=== PATIENT | male | born 1980 | race Caucasian/White ===

== ENCOUNTER → 2017-03-24 | Outpatient (CLI) | payer OTHER ==
[~2017-03-24] MED LIST: ACHD5005 PO; BSP10T PO; CIPR500T78 PO; CPR500T PO; CYCL10TA9 PO; DOCU-143 PO; GABA300C PO; LORA0.5T PO; METF1000 PO; NAPR220T29 PO; PANT40TA3 PO; PIOG15TA22 PO; TRAM50TA2 PO
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
== END ==
LOC: RAD 15:37
PROVIDERS: ATTEND Internal Medicine
DX: M50.20 Other cervical disc displacement, unspecified cervical region (principal); M89.38 Hypertrophy of bone, other site; M47.812 Spondylosis without myelopathy or radiculopathy, cervical region; R20.0 Anesthesia of skin; M25.511 Pain in right shoulder; Z87.828 Personal history of other (healed) physical injury and trauma
CPT/HCPCS: 72141

== ENCOUNTER 2017-08-09 13:46 | Emergency (ER) | payer SELFPAY ==
[~2017-08-09] VITALS: Ht 172.7 cm; Wt 85.5 kg
[~2017-08-09 13:46] MED LIST changes: -METF1000 PO; +METF10002 PO; -PIOG15TA22 PO; +PIOG15TA67 PO
--- NOTE | 2017-08-09 15:30 | ED General ---
General Chief Complaint: Nasal Problems Stated Complaint: SORE IN NOSE Nursing Triage Note: PT STATES HE HAS AN ABSCESS INSIDE HIS LT NARE. HX OF AN ABSCESS ON HIS LT NIPPLE LAST WEEK, HE GOT IT TO DRAIN BUT NEVER GOT ANY ABX. Nursing Sepsis Screen: No Definite Risk Source of Information: Patient Exam Limitations: No Limitations History of Present Illness Date Seen by Provider: August 09, 2017 Time Seen by Provider: 15:30 Initial Comments 37 yo male patient presents to the ED with c/o Allergies and Home Medications Allergies Coded Allergies: NKANo Known Allergies (Unverified Allergy, Mild, 01/06/09) Home Medications Metformin HCl 1,000 Mg Tablet, 1,000 MG PO BID, (Reported) Pantoprazole Sodium 40 Mg Tablet.dr, 40 MG PO DAILY, (Reported) Pioglitazone HCl 15 Mg Tablet, 15 MG PO DAILY, (Reported) Past Lxlqwod-Hjmoea-Cllwbm Hx Patient Social History Alcohol Use: Rarely Uses Number of Drinks Today: AA Alcohol Beverage of Choice: Beer Recreational Drug Use: No Type Used: Cigarettes Recent Foreign Travel: No Contact w/Someone Who Travel: No Recent Infectious Disease Expo: No Recent Hopitalizations: No Immunizations Up To Date Tetanus Booster (TDap): Less than 5yrs Date of Influenza Vaccine: Mar 11, 2011 Seasonal Allergies Seasonal Allergies: No Past Medical History Surgeries: Yes (URETHERAL DILATION-UNDER LOCAL; EXCISION OF ANAL WARTS) Respiratory: No Cardiac: Yes Hypertension Neurological: No Sexually Transmitted Disease: Yes (GENITAL WARTS) HIV/AIDS: No Gastrointestinal: No Musculoskeletal: Yes Chronic Back Pain Endocrine: Yes Diabetes, Non-Insulin dep Cancer: No Psychosocial: Yes Anxiety Integumentary: Yes Blood Disorders: No Physical Exam Vital Signs Vital Signs - First Documented 08/09/17 15:03 Temp 96.4 Pulse 86 Resp 20 B/P (MAP) 134/107 (116) Pulse Ox 100 O2 Delivery Room Air Capillary Refill : Less Than 3 Seconds Progress/Results/Core Measures Suspected Sepsis Recent Fever Within 48 Hours: No Infection Criteria Present: Suspected New Infection New/Unexplained Altered Menta: No Sepsis Screen: No Definite Risk SIRS Temperature:96.4 Pulse: 86 Respiratory Rate: 20 Laboratory Tests 08/09/17 16:20: White Blood Count 14.8H Blood Pressure 134 /107 Mean: 116 Laboratory Tests 08/09/17 16:20: Creatinine 0.88, Platelet Count 217, Total Bilirubin 0.2 Results/Orders Lab Results Laboratory Tests Test 08/09/17 16:20 Range/Units White Blood Count 14.8 H 4.3-11.0 10^3/uL Red Blood Count 4.96 4.35-5.85 10^6/uL Hemoglobin 15.0 13.3-17.7 G/DL Hematocrit 43 40-54 % Mean Corpuscular Volume 88 80-99 FL Mean Corpuscular Hemoglobin 30 25-34 PG Mean Corpuscular Hemoglobin Concent 35 32-36 G/DL Red Cell Distribution Width 13.4 10.0-14.5 % Platelet Count 217 130-400 10^3/uL Mean Platelet Volume 10.8 H 7.4-10.4 FL Neutrophils (%) (Auto) 65 42-75 % Lymphocytes (%) (Auto) 27 12-44 % Monocytes (%) (Auto) 6 0-12 % Eosinophils (%) (Auto) 2 0-10 % Basophils (%) (Auto) 0 0-10 % Neutrophils # (Auto) 9.7 H 1.8-7.8 X 10^3 Lymphocytes # (Auto) 4.0 1.0-4.0 X 10^3 Monocytes # (Auto) 0.8 0.0-1.0 X 10^3 Eosinophils # (Auto) 0.3 0.0-0.3 10^3/uL Basophils # (Auto) 0.0 0.0-0.1 10^3/uL Neutrophils % (Manual) 53 % Lymphocytes % (Manual) 41 % Monocytes % (Manual) 4 % Eosinophils % (Manual) 1 % Basophils % (Manual) 1 % Band Neutrophils 0 % Blood Morphology Comment NORMAL Sodium Level 135 135-145 MMOL/L Potassium Level 4.4 3.6-5.0 MMOL/L Chloride Level 102 98-107 MMOL/L Carbon Dioxide Level 25 21-32 MMOL/L Anion Gap 8 5-14 MMOL/L Blood Urea Nitrogen 13 7-18 MG/DL Creatinine 0.88 0.60-1.30 MG/DL Estimat Glomerular Filtration Rate > 60 BUN/Creatinine Ratio 15 Glucose Level 273 H 70-105 MG/DL Calcium Level 9.1 8.5-10.1 MG/DL Total Bilirubin 0.2 0.1-1.0 MG/DL Aspartate Amino Transf (AST/SGOT) 9 5-34 U/L Alanine Aminotransferase (ALT/SGPT) 16 0-55 U/L Alkaline Phosphatase 127 40-136 U/L C-Reactive Protein High Sensitivity 0.24 0.00-0.50 MG/DL Total Protein 7.1 6.4-8.2 GM/DL Albumin 4.4 3.2-4.5 GM/DL My Orders Orders - JESSICA NGUYEN Saline Lock/Iv-Start (08/09/17 15:54) Cbc With Automated Diff (08/09/17 15:54) Comprehensive Metabolic Panel (08/09/17 15:54) Hs C Reactive Protein (08/09/17 15:54) Ns Iv 1000 Ml (Sodium Chloride 0.9%) (08/09/17 15:54) Ketorolac Injection (Toradol Injection) (08/09/17 15:54) Manual Differential (08/09/17 16:20) Ct Sinus Complete Wo (08/09/17 15:54) Ceftriaxone Injection (Rocephin Injectio (08/09/17 18:00) Hydrocodone/Apap 5/325 Tablet (Lortab 5 (08/09/17 18:00) Medications Given in ED Current Medications Medications Dose Ordered Sig/Melinda Route Start Time Stop Time Status Last Admin Dose Admin Acetaminophen/ Hydrocodone Bitart 2 tab ONCE ONCE PO 08/09/17 18:00 08/09/17 18:01 DC 08/09/17 18:12 2 TAB Ceftriaxone Sodium 1000 mg/ Sodium Chloride 50 ml @ 200 mls/hr ONCE ONCE IV 08/09/17 18:00 08/09/17 18:14 DC 08/09/17 18:13 200 MLS/HR Sodium Chloride 1,000 ml @ 0 mls/hr Q0M ONCE IV 08/09/17 15:54 08/09/17 15:55 DC 08/09/17 16:24 1,000 MLS/HR Vital Signs/I&O 08/09/17 08/09/17 08/09/17 15:03 16:24 18:12 Temp 96.4 96.4 96.4 Pulse 86 Resp 20 B/P (MAP) 134/107 (116) Pulse Ox 100 O2 Delivery Room Air Capillary Refill : Less Than 3 Seconds Blood Pressure Mean: 116 Diagnostic Imaging Diagonstic Imaging: CT Plain Films/CT/US/NM/MRI: other (sinuses) Comments PROCEDURE: CT sinuses without contrast TECHNIQUE: Multiple contiguous axial images were obtained through the sinuses without the use of intravenous contrast. Coronal and sagittal reformations were then performed. INDICATION: Sore in the left nostril. FINDINGS: The frontal sinus is clear. There is mild mucosal thickening in the ethmoid air cells. The sphenoid is unremarkable. The bilateral maxillary sinuses are clear. No air/fluid levels are seen. The mastoids are well aerated. The right ostiomeatal complex is patent. There is some mild mucosal thickening in the region of the left ostiomeatal complex. The nasal septum is midline. No nasal mass is detected. IMPRESSION: There is minimal paranasal sinus mucosal disease. The study is otherwise unremarkable. Dictated by: Dictated on workstation # [id number] Reviewed: Reviewed by Me (radiology report reviewed by me) Departure Impression Primary Impression: Sinusitis Disposition: HOME, SELF-CARE Condition: Improved Departure-Patient Inst. Decision time for Depature: 18:48 Referrals: NO,LOCAL PHYSICIAN (PCP/Family) Primary Care Physician Patient Instructions: Sinusitis, Adult (DC) Add. Discharge Instructions: All discharge instructions reviewed with patient and/or family. Voiced understanding. Medications as directed. Tylenol extra strength over the counter for pain. Motrin 800 mg by mouth every 8 hours as needed for pain. Afrin nasal spray and saline nasal spray over the counter as directed for congestion. Follow-up with your family practitioner for recheck, call for an appointment time. Return to the emergency department for worsened pain, fever, dizziness, difficulty swallowing, difficulty breathing, or any other concerns. Scripts Naproxen (Naprosyn) 500 Mg Tablet 500 MG PO BID PRN for pain, #30 TAB 0 Refills Prov: JESSICA NGUYEN 08/09/17 Prednisone (Prednisone) 20 Mg Tab 40 MG PO DAILY, #10 TAB 0 Refills Prov: JESSICA NGUYEN 08/09/17 Cephalexin (Cephalexin) 500 Mg Capsule 500 MG PO TID, #30 CAP 0 Refills Prov: JESSICA NGUYEN 08/09/17 Work/School Note: Local Medical Staff Listing, Work Release Form Date Seen in the Emergency Department: August 09, 2017 Return to Work: August 11, 2017 JESSICA NGUYEN August 09, 2017 15:30
[2017-08-09] MEDS ORDERED: KETOROLAC 30 MG/ML VIAL IVP STA (15:54)
[2017-08-09] MEDS ORDERED: NS IV 1000 ML 1,000 ML IV ONE (15:54)
[2017-08-09 16:27] LABS: BASOPHILS % (AUTO) 0 % (0-10); EOSINOPHILS # (AUTO) 0.3 10^3/uL (0.0-0.3); EOSINOPHILS % (AUTO) 2 % (0-10); HEMATOCRIT 43 % (40-54); LYMPHOCYTES % (AUTO) 27 % (12-44); MEAN CORPUSCULAR HEMOGLOBIN 30 PG (25-34); MEAN CORPUSCULAR HGB CONC 35 G/DL (32-36); MEAN CORPUSCULAR VOLUME 88 FL (80-99); MEAN PLATELET VOLUME 10.8 FL (7.4-10.4); MONOCYTES # (AUTO) 0.8 X 10^3 (0.0-1.0); MONOCYTES % (AUTO) 6 % (0-12); NEUTROPHILS # (AUTO) 9.7 X 10^3 (1.8-7.8); NEUTROPHILS % (AUTO) 65 % (42-75); PLATELET COUNT 217 10^3/uL (130-400); RED BLOOD COUNT 4.96 10^6/uL (4.35-5.85); RED CELL DISTRIBUTION WIDTH 13.4 % (10.0-14.5); WHITE BLOOD COUNT 14.8 10^3/uL (4.3-11.0)
--- NOTE | 2017-08-09 16:46 | Diagnostic Imaging Report ---
PROCEDURE: CT sinuses without contrast TECHNIQUE: Multiple contiguous axial images were obtained through the sinuses without the use of intravenous contrast. Coronal and sagittal reformations were then performed. INDICATION: Sore in the left nostril. FINDINGS: The frontal sinus is clear. There is mild mucosal thickening in the ethmoid air cells. The sphenoid is unremarkable. The bilateral maxillary sinuses are clear. No air/fluid levels are seen. The mastoids are well aerated. The right ostiomeatal complex is patent. There is some mild mucosal thickening in the region of the left ostiomeatal complex. The nasal septum is midline. No nasal mass is detected. IMPRESSION: There is minimal paranasal sinus mucosal disease. The study is otherwise unremarkable. Dictated by: Dictated on workstation # [id number]
[2017-08-09 16:55] LABS: ALANINE AMINOTRANSFERASE 16 U/L (0-55); ALBUMIN 4.4 GM/DL (3.2-4.5); ALKALINE PHOSPHATASE 127 U/L (40-136); BILIRUBIN,TOTAL 0.2 MG/DL (0.1-1.0); BUN/CREATININE RATIO 15; CALCIUM 9.1 MG/DL (8.5-10.1); CARBON DIOXIDE 25 MMOL/L (21-32); CHLORIDE 102 MMOL/L (98-107); CREATININE SERUM 0.88 MG/DL (0.60-1.30); GFR ESTIMATED > 60; GLUCOSE 273 MG/DL (70-105); POTASSIUM 4.4 MMOL/L (3.6-5.0); SODIUM 135 MMOL/L (135-145); TOTAL PROTEIN 7.1 GM/DL (6.4-8.2)
[2017-08-09 16:58] LABS: BAND NEUTROPHILS 0 %; BASOPHILS % (MANUAL) 1 %; EOSINOPHILS % (MANUAL) 1 %; LYMPHOCYTES % (MANUAL) 41 %; MONOCYTES % (MANUAL) 4 %; NEUTROPHILS % (MANUAL) 53 %; RBC MORPH NORMAL
[2017-08-09] MEDS ORDERED: cefTRIAXone INJECTION 1,000 MG in NS (IVPB) 50 ML IV ONE (18:00)
[2017-08-09] MEDS ORDERED: HYDROcodone/APAP 5 MG/325 MG (LORTAB) TAB PO ONE (18:00)
[2017-08-09] MEDS ORDERED: NAPR-1071 PO (18:50)
[2017-08-09] MEDS ORDERED: PRD20T PO (18:50)
[2017-08-09] MEDS ORDERED: CEPH500C PO (18:50)
[2017-08-09 19:01] VITALS: BP 127/94
== END 2017-08-09 19:01 | disposition home or self-care (01) ==
LOC: EDUNIT# 13:46 → ER 13:48
DX: J32.9 Chronic sinusitis, unspecified (principal); I10 Essential (primary) hypertension; E11.9 Type 2 diabetes mellitus without complications; F41.9 Anxiety disorder, unspecified; Z79.84 Long term (current) use of oral hypoglycemic drugs
CPT/HCPCS: 36415; 70486; 80053; 85007; 85027; 86141; 96361; 96374; 96375

== ENCOUNTER 2017-09-29 13:17 | Inpatient (IN) | payer SELFPAY ==
[~2017-09-29] VITALS: Ht 172.7 cm; Wt 82.6 kg
[~2017-09-29 13:17] MED LIST changes: +CEPH500C PO; +NAPR-1071 PO; +PRD20T PO
[2017-09-29] MEDS ORDERED: NS IV 1000 ML 1,000 ML ONE (13:39)
[2017-09-29] MEDS ORDERED: NS IV 1000 ML 1,000 ML IV ONE ×2 (13:40→14:41)
[2017-09-29 14:00] LABS: BASOPHILS % (AUTO) 1 % (0-10); EOSINOPHILS # (AUTO) 0.2 10^3/uL (0.0-0.3); EOSINOPHILS % (AUTO) 2 % (0-10); HEMATOCRIT 41 % (40-54); HEMOGLOBIN 15.2 G/DL (13.3-17.7); LYMPHOCYTES # (AUTO) 2.5 X 10^3 (1.0-4.0); LYMPHOCYTES % (AUTO) 31 % (12-44); MEAN CORPUSCULAR HEMOGLOBIN 31 PG (25-34); MEAN CORPUSCULAR HGB CONC 37 G/DL (32-36); MEAN CORPUSCULAR VOLUME 83 FL (80-99); MEAN PLATELET VOLUME 12.3 FL (7.4-10.4); MONOCYTES # (AUTO) 0.5 X 10^3 (0.0-1.0); MONOCYTES % (AUTO) 6 % (0-12); NEUTROPHILS # (AUTO) 4.9 X 10^3 (1.8-7.8); NEUTROPHILS % (AUTO) 61 % (42-75); PLATELET COUNT 185 10^3/uL (130-400); RED BLOOD COUNT 4.99 10^6/uL (4.35-5.85); RED CELL DISTRIBUTION WIDTH 12.7 % (10.0-14.5); WHITE BLOOD COUNT 8.1 10^3/uL (4.3-11.0)
[2017-09-29 14:08] LABS: BILIRUBIN,URINE NEGATIVE (NEGATIVE); CLARITY,URINE CLEAR; COLOR,URINE YELLOW; GLUCOSE, URINE (UA) 4+ (NEGATIVE); KETONES,URINE NEGATIVE (NEGATIVE); LEUKOCYTE ESTERASE ,URINE NEGATIVE (NEGATIVE); NITRITE,URINE NEGATIVE (NEGATIVE); PH,URINE 7 (5-9); PROTEIN,URINE NEGATIVE (NEGATIVE); UROBILINOGEN,URINE NORMAL (NORMAL)
[2017-09-29 14:17] LABS: BACTERIA,URINE TRACE /HPF
[2017-09-29 14:23] LABS: ALBUMIN 4.1 GM/DL (3.2-4.5); BILIRUBIN,TOTAL 0.4 MG/DL (0.1-1.0); CALCIUM 9.4 MG/DL (8.5-10.1); CREATININE SERUM 1.52 MG/DL (0.60-1.30); POTASSIUM 5.6 MMOL/L (3.6-5.0); TOTAL PROTEIN 6.5 GM/DL (6.4-8.2)
--- NOTE | 2017-09-29 14:37 | ED General ---
General Chief Complaint: Glucose Problems Stated Complaint: HIGH BLOOD SUGAR Nursing Triage Note: PT REPORTS "HIGH" GLUCOSE READING X 1 MONTH. PT REPORTS BLURRED VISION, WEIGHTLOSS, FATIGUE STARTING THIS PAST COUPLE WEEKS. PT STATES HE STOPPED TAKING HIS ACTOS A COUPLE MONTHS AGO. PT REPORTS STILL HAS INTERMITTENTLY BEEN TAKING METFORMIN. Nursing Sepsis Screen: No Definite Risk Source of Information: Patient Exam Limitations: No Limitations History of Present Illness Date Seen by Provider: Sep 29, 2017 Time Seen by Provider: 13:40 Initial Comments PT ARRIVES VIA POV FROM HOME C/O ELEVATED BLOOD SUGAR STATES HIS HOME GLUCOMETER HAS READ "HIGH" EVERY TIME HE HAS CHECKED IT OVER THE LAST MONTH PT STATES HE HAS NOT TAKEN ANY OF HIS DIABETIC MEDICATIONS FOR 3 MONTHS--WAS ON METFORMIN AND ACTOS. WAS DIAGNOSED A COUPLE OF YEARS AGO WITH DIABETES PT STATES HE QUIT GOING TO [facility] 3 MONTHS AGO BECAUSE THEY KEPT CHANGING HIS MEDICATIONS AND HE COULDN'T AFFORD TO KEEP GOING BACK ALL THE TIME AND COULDN'T AFFORD ALL THE COPAYS ON HIS MEDICATIONS HAS NOT ATTEMPTED TO ESTABLISH CARE OR FOLLOW UP WITH ANYONE ELSE PT C/O ONGOING WEAKNESS, EXTREME FATIGUE--"NO ENERGY", BLURRY VISION, POLYURIA AND POLYDIPSIA--FOR THE LAST 3 MONTHS AND PROGRESSIVELY GETTING WORSE, ESPECIALLY THE LAST COUPLE OF WEEKS PT HAS LOST APPROXIMATELY 15 LBS IN THE LAST 3 MONTHS Allergies and Home Medications Allergies Coded Allergies: NKANo Known Allergies (Unverified Allergy, Mild, 01/06/09) Home Medications Acetaminophen 500 Mg Tablet, 1,000 MG PO Q4H PRN for PAIN-MILD, (Reported) Gabapentin 600 Mg Tablet, 600 MG PO TID, (Reported) LAST FILLED #90 18 Ibuprofen 200 Mg Tablet, 400-800 MG PO TID PRN for PAIN-MILD, (Reported) Metformin HCl 1,000 Mg Tablet, 1,000 MG PO BID, (Reported) LAST FILLED #60 18 Pantoprazole Sodium 40 Mg Tablet.dr, 40 MG PO DAILY, (Reported) LAST FILLED #30 18 Pioglitazone HCl 15 Mg Tablet, 15 MG PO DAILY, (Reported) LAST FILLED #30 18 Patient Home Medication List Home Medication List Reviewed: Yes Review of Systems Constitutional: no symptoms reported, malaise, weakness, weight loss EENTM: blurred vision, other (DRY MOUTH) Respiratory: no symptoms reported Cardiovascular: no symptoms reported Gastrointestinal: No abdominal pain; loss of appetite, nausea; No vomiting Genitourinary: see HPI, frequency Musculoskeletal: no symptoms reported Skin: no symptoms reported Psychiatric/Neurological: No Symptoms Reported Hematologic/Lymphatic: No Symptoms Reported Immunological/Allergic: no symptoms reported Past Onzjfjp-Sdwcau-Vowpuc Hx Patient Social History Alcohol Use: Past History (USED TO DRINK " ALL DAY EVERY DAY" BUT NO RECENT ALCOHOL USE, PER PT ON 09/29/17) Number of Drinks Today: AA Alcohol Beverage of Choice: Beer Recreational Drug Use: Yes (MARIJUANA, THC, DENIES DRUG USE) Drug of Choice: THC, METH BY HISTORY Smoking Status: Current Everyday Smoker (1 PPD) Type Used: Cigarettes Recent Foreign Travel: No Contact w/Someone Who Travel: No Recent Infectious Disease Expo: No Recent Hopitalizations: No Physical Abuse: No Sexual Abuse: No Mistreated: No Fear: No Immunizations Up To Date Tetanus Booster (TDap): Less than 5yrs Date of Influenza Vaccine: Mar 11, 2011 Seasonal Allergies Seasonal Allergies: No Past Medical History Surgeries: Yes (URETHERAL DILATION-UNDER LOCAL; EXCISION OF ANAL WARTS) Respiratory: No Cardiac: Yes Hypertension Neurological: No Sexually Transmitted Disease: Yes (GENITAL WARTS) HIV/AIDS: No Gastrointestinal: No Musculoskeletal: Yes Chronic Back Pain Endocrine: Yes Diabetes, Non-Insulin dep HEENT: No Cancer: No Psychosocial: Yes Anxiety Nursing Suicide Risk Score: 0 Integumentary: Yes (GENITAL WARTS) Blood Disorders: No Family Medical History No Pertinent Family Hx Physical Exam Vital Signs Vital Signs - First Documented 09/29/17 09/29/17 13:48 16:30 Temp 97.2 Pulse 81 Resp 20 B/P (MAP) 126/76 (93) Pulse Ox 99 O2 Delivery Room Air Capillary Refill : Less Than 3 Seconds Height, Weight, BMI Height: 5'8.00" Weight: 165lbs. 9.0oz. 74.377672bm; 28.7 BMI Method:Stated General Appearance: No Apparent Distress, WD/WN HEENT: PERRL/EOMI, Other (DRY ORAL MUCOSA) Neck: Normal Inspection Respiratory: Normal Breath Sounds, No Accessory Muscle Use, No Respiratory Distress Cardiovascular: Regular Rate, Rhythm, No Edema, No Murmur Gastrointestinal: Normal Bowel Sounds, No Organomegaly, No Pulsatile Mass, Non Tender, Soft Back: Normal Inspection Extremity: Normal Inspection Neurologic/Psychiatric: Alert, Oriented x3, No Motor/Sensory Deficits, literature teacher II- XII Norm as Tested, Other (FLAT AFFECT) Skin: Normal Color, Warm/Dry Progress/Results/Core Measures Suspected Sepsis Recent Fever Within 48 Hours: No Infection Criteria Present: None New/Unexplained Altered Menta: No Sepsis Screen: No Definite Risk SIRS Temperature:97.2 Pulse: 81 Respiratory Rate: 20 Laboratory Tests 09/29/17 13:44: White Blood Count 8.1 Blood Pressure 126 /76 Mean: 93 Laboratory Tests 09/29/17 13:44: Creatinine 1.52H, Platelet Count 185, Total Bilirubin 0.4 Results/Orders Lab Results Laboratory Tests Test 09/29/17 13:32 09/29/17 13:44 09/29/17 14:00 09/29/17 16:05 Range/Units Glucometer > 600 *H 384 H 70-110 MG/DL White Blood Count 8.1 4.3-11.0 10^3/uL Red Blood Count 4.99 4.35-5.85 10^6/uL Hemoglobin 15.2 13.3-17.7 G/DL Hematocrit 41 40-54 % Mean Corpuscular Volume 83 80-99 FL Mean Corpuscular Hemoglobin 31 25-34 PG Mean Corpuscular Hemoglobin Concent 37 H 32-36 G/DL Red Cell Distribution Width 12.7 10.0-14.5 % Platelet Count 185 130-400 10^3/uL Mean Platelet Volume 12.3 H 7.4-10.4 FL Neutrophils (%) (Auto) 61 42-75 % Lymphocytes (%) (Auto) 31 12-44 % Monocytes (%) (Auto) 6 0-12 % Eosinophils (%) (Auto) 2 0-10 % Basophils (%) (Auto) 1 0-10 % Neutrophils # (Auto) 4.9 1.8-7.8 X 10^3 Lymphocytes # (Auto) 2.5 1.0-4.0 X 10^3 Monocytes # (Auto) 0.5 0.0-1.0 X 10^3 Eosinophils # (Auto) 0.2 0.0-0.3 10^3/uL Basophils # (Auto) 0.0 0.0-0.1 10^3/uL Sodium Level 125 *L 135-145 MMOL/L Potassium Level 5.6 H 3.6-5.0 MMOL/L Chloride Level 93 L 98-107 MMOL/L Carbon Dioxide Level 21 21-32 MMOL/L Anion Gap 11 5-14 MMOL/L Blood Urea Nitrogen 17 7-18 MG/DL Creatinine 1.52 H 0.60-1.30 MG/DL Estimat Glomerular Filtration Rate 51 BUN/Creatinine Ratio 11 Glucose Level 867 *H 70-105 MG/DL Calcium Level 9.4 8.5-10.1 MG/DL Magnesium Level 2.0 1.8-2.4 MG/DL Total Bilirubin 0.4 0.1-1.0 MG/DL Aspartate Amino Transf (AST/SGOT) 17 5-34 U/L Alanine Aminotransferase (ALT/SGPT) 21 0-55 U/L Alkaline Phosphatase 135 40-136 U/L Total Protein 6.5 6.4-8.2 GM/DL Albumin 4.1 3.2-4.5 GM/DL Amylase Level 31 25-125 U/L Lipase 34 8-78 U/L Serum Alcohol < 10 <10 MG/DL Urine Color YELLOW Urine Clarity CLEAR Urine pH 7 5-9 Urine Specific [place] 1.005 L 1.016-1.022 Urine Protein NEGATIVE NEGATIVE Urine Glucose (UA) 4+ H NEGATIVE Urine Ketones NEGATIVE NEGATIVE Urine Nitrite NEGATIVE NEGATIVE Urine Bilirubin NEGATIVE NEGATIVE Urine Urobilinogen NORMAL NORMAL MG/DL Urine Leukocyte Esterase NEGATIVE NEGATIVE Urine RBC (Auto) NEGATIVE NEGATIVE Urine RBC NONE /HPF Urine WBC NONE /HPF Urine Squamous Epithelial Cells NONE /HPF Urine Crystals NONE /LPF Urine Bacteria TRACE /HPF Urine Casts NONE /LPF Urine Mucus NEGATIVE /LPF Urine Culture Indicated NO Urine Opiates Screen NEGATIVE NEGATIVE Urine Oxycodone Screen NEGATIVE NEGATIVE Urine Methadone Screen NEGATIVE NEGATIVE Urine Propoxyphene Screen NEGATIVE NEGATIVE Urine Barbiturates Screen NEGATIVE NEGATIVE Ur Tricyclic Antidepressants Screen NEGATIVE NEGATIVE Urine Phencyclidine Screen NEGATIVE NEGATIVE Urine Amphetamines Screen NEGATIVE NEGATIVE Urine Methamphetamines Screen NEGATIVE NEGATIVE Urine Benzodiazepines Screen NEGATIVE NEGATIVE Urine Cocaine Screen NEGATIVE NEGATIVE Urine Cannabinoids Screen NEGATIVE NEGATIVE My Orders Orders - CHIDI DUDLEY DO Accucheck Stat ONCE (09/29/17 13:40) Saline Lock/Iv-Start (09/29/17 13:40) Monitor-Rhythm Ecg Trace Only (09/29/17 13:40) Amylase (09/29/17 13:40) Cbc With Automated Diff (09/29/17 13:40) Comprehensive Metabolic Panel (09/29/17 13:40) Lipase (09/29/17 13:40) Magnesium (09/29/17 13:40) Ua Culture If Indicated (09/29/17 13:40) Saline Lock/Iv-Start (09/29/17 13:40) Ns Iv 1000 Ml (Sodium Chloride 0.9%) (09/29/17 13:40) Ns Iv 1000 Ml (Sodium Chloride 0.9%) (09/29/17 13:39) Saline Lock/Iv-Start (09/29/17 14:41) Ns Iv 1000 Ml (Sodium Chloride 0.9%) (09/29/17 14:41) Insulin (Regular) Human (Humulin R (Per (09/29/17 14:45) Alcohol (09/29/17 14:50) Drug Screen Stat (Urine) (09/29/17 14:50) Accucheck Stat ONCE (09/29/17 15:31) Medications Given in ED Current Medications Medications Dose Ordered Sig/Melinda Route Start Time Stop Time Status Last Admin Dose Admin Insulin Human Regular 20 unit ONCE ONCE IV 09/29/17 14:45 09/29/17 14:46 DC 09/29/17 15:20 20 UNIT Sodium Chloride 1,000 ml @ 0 mls/hr Q0M ONCE IV 09/29/17 13:40 09/29/17 13:43 DC 09/29/17 14:00 0 MLS/HR Sodium Chloride 1,000 ml @ 0 mls/hr Q0M ONCE IV 09/29/17 14:41 09/29/17 14:42 DC 09/29/17 15:21 0 MLS/HR Vital Signs/I&O 09/29/17 09/29/17 09/29/17 09/29/17 13:48 16:24 16:30 16:45 Temp 97.2 98.2 Pulse 81 87 70 Resp 20 20 20 B/P (MAP) 126/76 (93) 123/71 124/80 (95) Pulse Ox 99 98 98 96 O2 Delivery Room Air Room Air 09/29/17 09/29/17 09/29/17 18:56 19:00 20:41 Temp 98.0 98.2 Pulse 68 71 66 Resp 20 20 B/P (MAP) 121/88 (99) 114/78 (90) Pulse Ox 98 99 O2 Delivery Room Air Room Air Capillary Refill : Less Than 3 Seconds Blood Pressure Mean: 93 Point of Care Testing Blood Glucose Action Taken: FL- DR DUDLEY INFORMED Progress Note : Progress Note UNEVENTFUL ER STAY BLOOD GLUCOSE DOWN TO 384 AT TIME OF ADMIT Departure Communication (Admissions) 1440--SPOKE WITH DR. HANDLEY, ACCEPTS PT FOR ADMIT Impression Primary Impression: Uncontrolled diabetes mellitus Additional Impressions: Electrolyte imbalance Hyponatremia Renal insufficiency Noncompliance Disposition: ADMITTED INPATIENT Condition: Improved Admissions Decision to Admit Reason: Admit from ER (General) Decision to Admit/Date: Sep 29, 2017 Time/Decision to Admit Time: 14:40 Departure-Patient Inst. Referrals: NO,LOCAL PHYSICIAN (PCP/Family) Primary Care Physician CHIDI DUDLEY DO Sep 29, 2017 14:37
[2017-09-29] MEDS ORDERED: inSUlin (REGULAR) HUMAN 1 UNIT/0.01 ML (CHARGE PER UNIT) IV ONE (14:45)
[2017-09-29 16:05] LABS: AMPHETAMINE SCREEN, URINE NEGATIVE (NEGATIVE); BARBITURATE SCREEN URINE NEGATIVE (NEGATIVE); BENZODIAZEPINES SCREEN URINE NEGATIVE (NEGATIVE); CANNABINOID SCREEN, URINE NEGATIVE (NEGATIVE); COCAINE SCREEN URINE NEGATIVE (NEGATIVE); METHADONE STAT NEGATIVE (NEGATIVE); METHAMPHETAMINE SCREEN URINE S NEGATIVE (NEGATIVE); OPIATE SCREEN URINE NEGATIVE (NEGATIVE); OXYCODONE STAT NEGATIVE (NEGATIVE); PROPOXYPHENE STAT NEGATIVE (NEGATIVE); TRICYCLIC ANTIDEPRESSANTS SCRE NEGATIVE (NEGATIVE)
[2017-09-29 16:30] VITALS: BP 124/80
[2017-09-29] MEDS ORDERED: GABA600T2 PO (16:43)
[2017-09-29] MEDS ORDERED: ACET-2267 PO (16:43)
[2017-09-29] MEDS ORDERED: IBUP-30 PO (16:43)
[2017-09-29] MEDS ORDERED: ONDANSETRON 4 MG/2 ML (SDV) Z0FRAN IVP PRN (16:45)
[2017-09-29] MEDS: NS IV 1000 ML 1,000 ML IV SCH ×2 (17:19→20:18)
[2017-09-29 18:56] VITALS: BP 121/88
[2017-09-29] MEDS: NICOTINE 21 MG (NICODERM) PATCH TD SCH (20:18)
[2017-09-29 20:41] VITALS: BP 114/78
[2017-09-29] MEDS: inSUlin ASPART (NovoLOG) 1 UNIT/0.01 ML (CHARGE PER UNIT) SC SCH (22:23)
[2017-09-29 22:35] VITALS: BP 117/79
[2017-09-30 00:31] VITALS: BP 124/83
[2017-09-30] MEDS: NS IV 1000 ML 1,000 ML IV SCH ×2 (01:37→06:22)
[2017-09-30 02:00] VITALS: BP 119/75
[2017-09-30 04:32] VITALS: BP 110/73
[2017-09-30 06:00] VITALS: BP 104/72
[2017-09-30] MEDS: inSUlin ASPART (NovoLOG) 1 UNIT/0.01 ML (CHARGE PER UNIT) SC SCH (06:28)
[2017-09-30] MEDS ORDERED: PIOGLITAZONE 30MG (ACTOS) TAB PO SCH (07:00)
[2017-09-30] MEDS ORDERED: metFORMIN 500 MG (GLUCOPHAGE) TAB PO SCH (07:00)
[2017-09-30 08:00] VITALS: BP 109/58
[2017-09-30] MEDS: NICOTINE 21 MG (NICODERM) PATCH TD SCH (08:08)
[2017-09-30 08:13] LABS: BASOPHILS % (AUTO) 0 % (0-10); EOSINOPHILS # (AUTO) 0.2 10^3/uL (0.0-0.3); EOSINOPHILS % (AUTO) 2 % (0-10); HEMATOCRIT 40 % (40-54); HEMOGLOBIN 14.3 G/DL (13.3-17.7); LYMPHOCYTES # (AUTO) 4.4 X 10^3 (1.0-4.0); LYMPHOCYTES % (AUTO) 49 % (12-44); MEAN CORPUSCULAR HEMOGLOBIN 30 PG (25-34); MEAN CORPUSCULAR HGB CONC 36 G/DL (32-36); MEAN CORPUSCULAR VOLUME 85 FL (80-99); MEAN PLATELET VOLUME 12.3 FL (7.4-10.4); MONOCYTES # (AUTO) 0.5 X 10^3 (0.0-1.0); MONOCYTES % (AUTO) 6 % (0-12); NEUTROPHILS # (AUTO) 3.7 X 10^3 (1.8-7.8); NEUTROPHILS % (AUTO) 42 % (42-75); PLATELET COUNT 189 10^3/uL (130-400); RED BLOOD COUNT 4.72 10^6/uL (4.35-5.85); RED CELL DISTRIBUTION WIDTH 12.9 % (10.0-14.5); WHITE BLOOD COUNT 8.9 10^3/uL (4.3-11.0)
[2017-09-30 08:39] LABS: ALANINE AMINOTRANSFERASE 17 U/L (0-55); ALBUMIN 3.6 GM/DL (3.2-4.5); ALKALINE PHOSPHATASE 102 U/L (40-136); BILIRUBIN,TOTAL 0.5 MG/DL (0.1-1.0); BUN/CREATININE RATIO 18; CALCIUM 8.3 MG/DL (8.5-10.1); CARBON DIOXIDE 22 MMOL/L (21-32); CHLORIDE 108 MMOL/L (98-107); CREATININE SERUM 0.83 MG/DL (0.60-1.30); GFR ESTIMATED > 60; GLUCOSE 213 MG/DL (70-105); POTASSIUM 3.9 MMOL/L (3.6-5.0); SODIUM 137 MMOL/L (135-145); TOTAL PROTEIN 5.7 GM/DL (6.4-8.2)
[2017-09-30] MEDS ORDERED: GABAPENTIN 600 MG (NEURONTIN) TAB PO SCH (09:00)
[2017-09-30] MEDS ORDERED: NON-FORMULARY MEDICATION 1 EA EA (Metformin HCl 1,000 MG) PO SCH (09:00)
[2017-09-30] MEDS ORDERED: PANTOPRAZOLE 40 MG (PROTONIX) TAB PO SCH (09:00)
[2017-09-30] MEDS ORDERED: NON-FORMULARY MEDICATION 1 EA EA (Pioglitazone HCl 15 MG) PO SCH (09:00)
--- NOTE | 2017-09-30 15:32 | Discharge Summary ---
Diagnosis/Chief Complaint Date of Admission Sep 29, 2017 at 15:10 Date of Discharge Sep 30, 2017 at 09:15 Admission Diagnosis Admission Diagnosis Hyperglycemia Discharge Diagnosis Hyperglycemia- patient left against medical advice before being seen inpatient. Discharge Summary-Simple/Stand Discharge Physical Examination Allergies: Coded Allergies: NKANo Known Allergies (Unverified Allergy, Mild, 01/06/09) Vitals & I&Os Vital Sign - Last 12Hours Date Time Temp Pulse Resp B/P (MAP) Pulse Ox O2 Delivery O2 Flow Rate FiO2 09/30/17 08:00 96.2 71 20 109/58 (75) 100 Room Air Intake and Output 09/30/17 00:00 Intake Total 2360 ml Balance 2360 ml Hospital Course See final discharge diagnosis. Discharge Instructions to patient/family Please see electronic discharge instructions given to patient. Discharge Medications Reviewed and agree with Discharge Medication list on patient's Discharge Instruction sheet Clinical Quality Measures DVT/VTE Risk/Contraindication: Risk Factor Score Per Nursin RFS Level Per Nursing on Admit: 1=Low/No VTE PPX JUSTEN HANDLEY MD Sep 30, 2017 15:32
== END 2017-09-30 09:15 | disposition left against medical advice (07) | DRG 638 ==
LOC: EDUNIT# 13:17 → ER 13:18 → 4TH 15:10
PROVIDERS: ADMIT Family Medicine; ATTEND Family Medicine
DX: E11.65 Type 2 diabetes mellitus with hyperglycemia (principal); E87.1 Hypo-osmolality and hyponatremia; N28.9 Disorder of kidney and ureter, unspecified; F17.210 Nicotine dependence, cigarettes, uncomplicated; Z91.120 Patient's intentional underdosing of medication regimen due to financial hardship; Z79.84 Long term (current) use of oral hypoglycemic drugs
CPT/HCPCS: 36415; 80053; 80306; 80320; 81000; 82150; 82962; 83690; 83735; 85025; 93041; 96361; 96374

== ENCOUNTER 2017-10-18 09:04 | Emergency (ER) | payer SELFPAY ==
[~2017-10-18] VITALS: Ht 172.7 cm; Wt 82.6 kg
[~2017-10-18 09:04] MED LIST changes: +ACET-2267 PO; +GABA600T2 PO; +IBUP-30 PO
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
--- OUTSIDE RECORDS SUMMARY | 2017-10-18 09:12 | XMS REPORT ---
Author Author MIRELLA MARIA Organization [facility] Address [address] [place] [address] Care Team Providers Care Fruit Thinner Name Role Phone MIRELLA MARIA Unavailable PROBLEMS Type Condition ICD9-CM Code FED87-NB Code Onset Dates Condition Status SNOMED Code Problem Mood disorder F39 Active 58597285 Problem Shoulder pain, right M25.511 Active 91549030 Problem Acquired hypothyroidism E03.9 Active 658338810 Problem Low back pain M54.5 Active 105073653 Problem Cervical radiculopathy M54.12 Active 23471650 Problem History of urethral stricture Z87.448 Active 448009940 Problem Diabetes type 2, uncontrolled E11.65 Active 963335567 Problem Hypertension, benign I10 Active 54048256 Problem Controlled type 2 diabetes mellitus without complication, without long -term current use of insulin E11.9 Active 523431214 Problem Diabetes type 2, controlled E11.9 Active 77664406 ALLERGIES No Information ENCOUNTERS Encounter Location Date Diagnosis [place] [id number] [place] [address] 92154- 3816 Oct, [facility] [id number] [place] [address] 25269- 6655 Sep, Diabetes type 2, uncontrolled E11.65 [facility] [id number] [place] [address] 08985- 5425 Jun, Controlled type 2 diabetes mellitus without complication, without long-term current use of insulin E11.9 [facility] [id number] [place] [address] 72624- 5862 May, [facility] [id number] [place] [address] 53750- 6123 May, Radiculopathy of cervical region M54.12 [facility] [id number] [place] [address] 29455- 3228 May, Controlled type 2 diabetes mellitus without complication, without long-term current use of insulin E11.9 [facility] [address], [place] [address] May, [facility] [address] [address] 1064 May, Controlled type 2 diabetes mellitus without complication, without long-term current use of insulin E11.9 [facility] [address] [address] 9087 May, Controlled type 2 diabetes mellitus without complication, without long-term current use of insulin E11.9 [facility] [address] [address] 8640 May, Controlled type 2 diabetes mellitus without complication, without long-term current use of insulin E11.9 [place] [address] [address]- 5272 Apr, [facility] [address] [address]- 4262 Apr, Controlled type 2 diabetes mellitus without complication, without long-term current use of insulin E11.9 [facility] [address] [address]- 9851 Apr, [facility] [address] [address]- 4188 Apr, Controlled type 2 diabetes mellitus without complication, without long-term current use of insulin E11.9 [facility] [address], [place] [address]- 5346 Mar, [facility] [address] [address]- 3057 Mar, Radiculopathy of cervical region M54.12 [facility] [address] [address] 3649 Mar, Controlled type 2 diabetes mellitus without complication, without long-term current use of insulin E11.9 [facility] [id number] [place] [address] 09036- 9627 Feb, Cervical radiculopathy M54.12 ; Acute cystitis without hematuria N30.00 and History of urethral stricture Z87.448 [place] [id number] [place] [address] 92863- 8412 Feb, Controlled type 2 diabetes mellitus without complication, without long-term current use of insulin E11.9 [place] [address] 73524- 4802 05 Feb, 2017 [place] [address] 76682- 5999 Jan, Diabetes type 2, uncontrolled E11.65 [place] [address] 88927- 0597 Jan, [place] [address] 57434- 3340 Jan, Controlled type 2 diabetes mellitus without complication, without long-term current use of insulin E11.9 ; Chest wall pain R07.89 and Thoracic spine pain M54.6 [place] [address] [id number] [place] [address] 39205- 1517 Dec, [facility] [id number] [place] [address] 13696- 3104 Dec, [place] [address] 26527- 2935 Nov, [place] [address] [id number] [place] [address] 43954- 7941 Nov, [facility] [id number] [place] [address] 31398 -4200 13 Nov, 2016 Trichomonas exposure Z20.2 [place] [id number] [place] [address] 60887- 5833 Oct, [facility] [address] [id number] [place] [address]- 8291 Oct, [facility] [place] [facility] [address] [id number] [place] [address]- 9827 Oct, [facility] [place] [facility] [address] [id number] [place] [address]- 3786 Oct, [facility] [place] [facility] [address] [id number] [place] [address]- 7135 Sep, [facility] [place] [facility] [address] [id number] [place] [address]- 8352 Sep, [facility] [place] [facility] [address] [id number] [place] [address]- 2786 Aug, [facility] [place] [facility] [address] [id number] [place] [address]- 4662 Aug, [facility] [place] [facility] [address] [id number] [place] [address]- 4578 Aug, [facility] [address] [id number] [place] [address]- 0478 Aug, [facility] [address] [id number] [place] [address]- 4526 July, Diabetes type 2, controlled E11.9 [facility] [address] [id number] [place] [address]- 7115 July, [facility] [place] [facility] [address] [id number] [place] [address]- 3468 July, [facility] [place] [facility] [address] [id number] [place] [address]- 8046 July, [facility] [place] [facility] [address] [id number] [place] [address]- 8075 July, [facility] [place] [facility] [address] [id number] [place] [address]- 0970 Jun, [facility] [place] [facility] [address], [place] [address]- 7651 Jun, [facility] [address], [place] [address]- 4307 May, [facility] [address], [place] [address]- 7296 May, [facility] [address], [place] [address]- 1546 May, [facility] [address], [place] [address]- 6183 May, Controlled type 2 diabetes mellitus without complication, without long-term current use of insulin E11.9 [facility] [address], [place] [address]- 1386 Apr, [facility] [address], [place] [address]- 5226 Apr, [facility] [address], [place] [address]- 5500 Mar, [facility] [address], [place] [address]- 9698 Mar, [facility] [address] 8866 Feb, [facility] [address], [place] [address]- 1516 Feb, [facility] [id number] [address]- 1228 Jan, [facility] [place] [facility] [id number] [place] [address]- 6281 Jan, [facility] [address], [place] [address]- 1922 Jan, [facility] [id number] [place] [address]- 7176 Dec, [facility] [address], [place] [address]- 9012 Dec, [facility] [address] [place] [address] 91219- 9737 Dec, [facility] [id number] [place] [address] 67162- 0635 29 Nov, 2015 Diabetes type 2, uncontrolled E11.65 [facility] [id number] [place] [address] 31148- 7514 14 Nov, 2015 [facility] [id number] [place] [address] 33486- 1849 Nov, [facility] [id number] [place] [address] 61738- 6261 Oct, [facility] [id number] [place] [address] 68441- 1968 Oct, [facility] [id number] [place] [address] 22922- 1251 Sep, Controlled type 2 diabetes mellitus without complication, without long-term current use of insulin E11.9 [facility] [address] [place] [address] 43161- 1063 Sep, [facility] [address] [place] [address] 65321- 6901 Sep, [facility] [address], [place] [address]- 5261 Sep, [facility] [address], [place] [address]- 3983 Sep, [facility] [address] [place] [address] 66170- 5752 Aug, Diabetes type 2, controlled E11.9 ; Anxiety F41.9 ; Carpal tunnel syndrome, left upper limb G56.02 and Carpal tunnel syndrome, right upper limb G56.01 [facility] [address], [place] [address]- 0668 Aug, Urethritis N34.2 [facility] [address], [place] [address]- 0321 Aug, [facility] [id number] [place] [address] 85366- 4627 July, Genital warts A63.0 [facility] [id number] [place] [address] 68147- 9836 July, [facility] [id number] [place] [address] 87221- 4505 July, Genital warts A63.0 [facility] [id number] [place] [address] 75295- 6709 July, Anxiety F41.9 [facility] [id number] [place] [address] 40512- 2007 Jun, Genital warts A63.0 [facility] [address] [place] [address] 07498- 1840 Jun, Anxiety F41.9 [facility] [id number] [place] [address] 04287- 1851 May, Genital warts A63.0 and Diabetes type 2, uncontrolled E11.65 [facility] [address] [place] [address] 35998- 6551 May, [facility] [address] [place] [address] 50967- 2358 May, [facility] [address] [place] [address] 28431- 5459 Apr, [facility] [id number] [place] [address] 01422- 7291 Apr, [facility] [address], [place] [address]- 2861 Apr, Diabetes type 2, controlled E11.9 [facility] [id number] [place] [address] 71968- 6399 Apr, Genital warts A63.0 [facility] [address] [place] [address] 57143- 6984 Apr, [facility] [id number] [place] [address] 14305- 7067 Apr, Diabetes type 2, uncontrolled E11.65 and Genital warts A63.0 [facility] [id number] [place] [address] 26714- 8915 Apr, [facility] [id number] [place] [address] 46916- 2225 Mar, [facility] [id number] [place] [address] 68956- 8948 Mar, [facility] [id number] [place] [address] 88898- 5821 Mar, Family history of diabetes mellitus V18.0 and Weight loss R63.4 [facility] [id number] [place] [address] 84414- 6743 Mar, Genital warts A63.0 and Family history of diabetes mellitus V18.0 [facility] [address] [place] [address] 94471- 0821 Feb, [facility] [address] [place] [address] 52874- 6628 Jan, [facility] [id number] [place] [address] 95054- 3346 Jan, Perianal venereal warts A63.0 [facility] [id number] [place] [address] 38633- 4722 Jan, Urethritis N34.2 and Anxiety F41.9 [facility] [address] [place] [address] 00761- 4772 Jan, [facility] [id number] [place] [address] 84536- 5610 Jan, Urinary tract infection, site unspecified N39.0 [place] [id number] [place] [address] 55747- 7333 Jan, [place] [id number] [place] [address] 15940803- 4517 Dec, [place] [id number] [place] [address] 429218- 1760 Dec, HPV (human papilloma virus) anogenital infection A63.0 ; Anxiety F41.9 and Gastroesophageal reflux disease without esophagitis K21.[address] 436245- 4298 Sep, Blood in stool 578.1 [place] [id number] [place] [address] 78096- 4268 Aug, Blood in stool 578.1 [place] [id number] [place] [address] 77254- 9567 Aug, Anxiety 300.00 and Blood in stool 578.1 [place] [id number] [place] [address] 78670- 0385 July, [place] [id number] [place] [address] 84829- 2956 July, Family history of diabetes mellitus V18.0 [place] [id number] [place] [address] 40967- 2269 July, Family history of diabetes mellitus V18.0 ; Family history of thyroid disease V18.19 ; Polyuria 788.42 ; Polydipsia 783.5 ; Alopecia 704.00 and Fatigue 780.79 [place] [id number] [place] [address] 16109- 4959 Jun, [place] [id number] [place] [address] 33528- 7133 Jun, [place] [address] [place] [address]- 8508 Mar, [facility] [place] [facility] [address] [id number] [place] [address]- 4818 Mar, [facility] [place] [facility] [address] [id number] [place] [address]- 4926 Mar, [facility] [place] [facility] [address] [id number] [place] [address]- 0050 Mar, [facility] [place] [facility] [address] [id number] [place] [address]- 7832 Mar, [facility] [place] [facility] [address] [id number] [place] [address]- 6837 Mar, [facility] [place] [facility] [address] [id number] [place] [address]- 2490 Mar, [facility] [place] [facility] [address] [id number] [place] [address]- 2422 Mar, [facility] [place] [facility] [address] [id number] [place] [address]- 7134 Mar, [facility] [place] [facility] [address] [id number] [place] [address]- 1962 Mar, [facility] [place] [facility] [address] [id number] [place] [address]- 0853 Feb, [facility] [place] [facility] [address] [id number] [place] [address]- 6809 Feb, [facility] [place] [facility] [address] [id number] [place] [address]- 1174 Jan, [facility] [place] [facility] [address] [id number] [place] [address]- 1033 Jan, [facility] [place] [facility] [address] [id number] [place] [address]- 0305 Jan, [facility] [place] [facility] [address] [id number] [place] 3630 Jan, [facility] [place] [facility] [address] [id number] [place] [address]- 4651 Dec, [facility] [place] [facility] [address] [id number] [place] [address]- 0046 Dec, [facility] [place] [facility] [address] [id number] [place] [address]- 2285 Nov, [facility] [place] [facility] [address] [id number] [place] [address]- 5978 Nov, [facility] [place] [facility] [address] [id number] [place] [address]- 7895 Oct, [facility] [place] [facility] [address] [id number] [place] [address]- 8478 Oct, [facility] [place] [facility] [address] [id number] [place] [address]- 1321 Oct, [facility] [place] [facility] [address] [id number] [place] [address]- 3205 Oct, [facility] [place] [facility] [address] [id number] [place] [address]- 8135 Oct, [facility] [place] [facility] [address] [id number] [place] [address]- 8576 Oct, [facility] [place] [facility] [address] [id number] [place] [address]- 3870 Oct, [facility] [place] [facility] [address] [id number] [place] [address]- 4488 Oct, [facility] [place] [facility] [address] [id number] [place] [address]- 2227 Sep, [facility] [place] [facility] [address] [id number] [place] [address]- 3440 Sep, [facility] [place] [facility] [address] [id number] [place] [address]- 1357 Sep, [facility] [place] [facility] [address] [id number] [place] [address]- 4132 Sep, [facility] [place] [facility] [address] [id number] [place] [address]- 4410 Aug, [facility] [place] [facility] [address] [id number] [place] [address]- 3156 Aug, [facility] [place] [facility] [address] [id number] [place] [address]- 9539 Aug, [facility] [place] [facility] [address] [id number] [place] [address]- 3666 Aug, [facility] [place] [facility] [address] [id number] [place] [address]- 3944 July, [facility] [place] [facility] [address] [id number] [place] [address]- 9942 July, [facility] [place] [facility] [address] [id number] [place] [address]- 2802 July, [facility] [place] [facility] [address] [id number] [place] [address]- 1442 July, [facility] [place] [facility] [address] [id number] [place] [address]- 5670 July, [facility] [place] [facility] [address] [id number] [place] [address]- 2642 July, [facility] [place] [facility] [address] [id number] [place] [address]- 1626 Jun, [facility] [place] [facility] [address] [id number] [place] [address]- 3548 Jun, [facility] [place] [facility] [address] [id number] [place] [address]- 1498 Jun, [facility] [place] [facility] [address] [id number] [place] [address]- 4850 Jun, [facility] [place] [facility] [address] [id number] [place] [address]- 8193 Jun, [facility] [place] [facility] [address] [id number] [place] [address]- 5203 14 Jun, 2013 [facility] [address] [id number] [place] [address]- 9219 14 Jun, 2013 [facility] [place] [facility] [address] [id number] [place] [address]- 0293 14 Jun, 2013 [facility] [place] [facility] [address] [id number] [place] [address]- 9505 19 May, 2013 [facility] [place] [facility] [address] [id number] [place] [address]- 2515 19 May, 2013 [facility] [place] [facility] [address] [id number] [place] [address]- 1473 18 May, 2013 [facility] [place] [facility] [address] [id number] [place] [address]- 3019 Apr, [facility] [place] [facility] [address] [id number] [place] [address]- 8087 Apr, [facility] [address] [id number] [place] [address]- 0774 Apr, [facility] [place] [facility] [address] [id number] [place] [address]- 7951 Apr, [facility] [place] [facility] [address] [id number] [place] [address]- 0802 Mar, [facility] [place] [facility] [address] [id number] [place] [address] Mar, [facility] [place] [facility] [address] [id number] [place] [address] Mar, [facility] [place] [facility] [address] [id number] [place] [address] Mar, [facility] [place] [facility] [address] [id number] [place] [address] 10 Mar, 2013 [facility] [place] [facility] [address] [id number] [place] [address] Mar, [facility] [place] [facility] [address] [id number] [place] [address] Feb, [facility] [place] [facility] [address] [id number] [place] [address] Feb, [facility] [place] [facility] [address] [facility] [id number] [place] [address] Jan, [facility] [place] [facility] [address] [id number] [place] [address] Jan, [facility] [place] [facility] [address] [id number] [place] [address] Jan, [facility] [place] [facility] [address] [id number] [place] [address] Jan, [facility] [place] [facility] [address] [id number] [place] [address] Jan, [facility] [place] [facility] [address] [id number], [place] [address] Jan, [facility] [place] [facility] [address] [id number] [place] [address] Jan, [facility] [place] [facility] [address] [id number], [place] [address] Dec, [facility] [place] [facility] [address] [id number], [place] [address] Dec, [facility] [place] [facility] [address] [id number], [place] [address] Nov, [facility] [place] [facility] [address] [id number] [place] [address] 26 Nov, 2012 [facility] [place] [facility] [address] [facility] [id number], [place] [address] Nov, [facility] [place] [facility] [address] [id number] [place] [address] Oct, [facility] [place] [facility] [address] [id number] [place] [address] Oct, [facility] [address] [id number] [place] [address] Oct, [facility] [place] [facility] [address] [id number] [place] [address] Oct, [facility] [address] [id number] [place] [address] Sep, [facility] [place] [facility] [address] [id number] [place] [address] Sep, [facility] [address] [id number] [place] [address] Aug, [facility] [address] [id number] [place] [address] Aug, [facility] [address] [id number] [place] [address] Aug, [facility] [address] [id number] [place] [address] Aug, [facility] [address] [id number] [place] [address] July, [facility] [address] [id number] [place] [address] July, [facility] [address] [id number] [place] [address] July, [facility] [address] [id number] [place] [address] July, [facility] [place] [facility] [address] [id number] [place] [address] Jun, [facility] [place] [facility] [address] [id number] [place] [address] Jun, [facility] [address] [id number] [place] [address] Feb, [facility] [address] [facility] [id number] [place] [address] Feb, [facility] [address] [facility] [id number], [place] [address] Mar, IMMUNIZATIONS No Known Immunizations SOCIAL HISTORY Never Assessed REASON FOR VISIT Refill request PLAN OF CARE VITAL SIGNS MEDICATIONS Unknown Medications RESULTS No Results PROCEDURES No Known procedures [...]
--- OUTSIDE RECORDS SUMMARY | 2017-10-18 09:12 | XMS REPORT ---
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 Name Role Phone MIRELLA MARIA Unavailable PROBLEMS Type Condition ICD9-CM Code AZG61-GY Code Onset Dates Condition Status SNOMED Code Problem Mood disorder F39 Active [id number] Problem Shoulder pain, right M25.511 Active 77802394 Problem Acquired hypothyroidism E03.9 Active 465671384 Problem Low back pain M54.5 Active 503058627 Problem Cervical radiculopathy M54.12 Active 41311795 Problem History of urethral stricture Z87.448 Active 670857176 Problem Diabetes type 2, uncontrolled E11.65 Active 397471358 Problem Hypertension, benign I10 Active 99559417 Problem Controlled type 2 diabetes mellitus without complication, without long -term current use of insulin E11.9 Active 835141741 Problem Diabetes type 2, controlled E11.9 Active 93987599 ALLERGIES No Information ENCOUNTERS Encounter Location Date Diagnosis [place] [id number] [place] [address] 26279- 5382 Oct, [facility] [address] [place] [id number] [place] [address] 31607- 1977 Sep, Diabetes type 2, uncontrolled E11.65 [facility] [id number] [place] [address] 20869- 8760 Jun, Controlled type 2 diabetes mellitus without complication, without long-term current use of insulin E11.9 [facility] [id number] [place] [address] 18690- 0052 May, [facility] [id number] [place] [address] 16923- 8047 May, Radiculopathy of cervical region M54.12 [facility] [id number] [place] [address] 24268- 0839 May, Controlled type 2 diabetes mellitus without complication, without long-term current use of insulin E11.9 [facility] [address] [address] 5915 May, [facility] [address] [address] 8947 May, Controlled type 2 diabetes mellitus without complication, without long-term current use of insulin E11.9 [facility] [address] [address]- 4327 May, Controlled type 2 diabetes mellitus without complication, without long-term current use of insulin E11.9 [facility] [address] [address] 0921 May, Controlled type 2 diabetes mellitus without complication, without long-term current use of insulin E11.9 [place] [address] [address]- 0787 Apr, [facility] [address] [address]- 4445 Apr, Controlled type 2 diabetes mellitus without complication, without long-term current use of insulin E11.9 [facility] [address] [address]- 0224 Apr, [facility] [address] [address]- 6717 Apr, Controlled type 2 diabetes mellitus without complication, without long-term current use of insulin E11.9 [facility] [address] [address]- 2584 Mar, [facility] [address] [address]- 4644 Mar, Radiculopathy of cervical region M54.12 [facility] [address] [address]- 9039 Mar, Controlled type 2 diabetes mellitus without complication, without long-term current use of insulin E11.9 [facility] [address] [place] [id number] [place] [address] 19927- 8407 Feb, Cervical radiculopathy M54.12 ; Acute cystitis without hematuria N30.00 and History of urethral stricture Z87.448 [place] [address] [place] [id number] [place] [address] 36181- 5344 Feb, Controlled type 2 diabetes mellitus without complication, without long-term current use of insulin E11.9 [place] [address] 08423- 9016 05 Feb, 2017 [place] [address] 82082- 9030 Jan, Diabetes type 2, uncontrolled E11.65 [place] [address] 75666- 1515 Jan, [place] [address] 73220- 3537 Jan, Controlled type 2 diabetes mellitus without complication, without long-term current use of insulin E11.9 ; Chest wall pain R07.89 and Thoracic spine pain M54.6 [place] [address] [place] [id number] [place] [address] 04292- 6396 Dec, [facility] [address] [place] [id number] [place] [address] 32716- 6841 Dec, [place] [address] 14136- 3541 Nov, [place] [address] [place] [id number] [place] [address] 87798- 6846 Nov, [facility] [id number] [place] [address] 11512 -2909 13 Nov, 2016 Trichomonas exposure Z20.2 [place] [address] [place] [id number] [place] [address] 31661- 0799 Oct, [facility] [address] [id number] [place] [address]- 1155 Oct, [facility] [place] [facility] [address] [id number] [place] [address]- 6942 Oct, [facility] [place] [facility] [address] [id number] [place] [address]- 8732 Oct, [facility] [place] [facility] [address] [id number] [place] [address]- 5232 Sep, [facility] [place] [facility] [address] [id number] [place] [address]- 3426 Sep, [facility] [place] [facility] [address] [id number] [place] [address]- 9154 Aug, [facility] [place] [facility] [address] [id number] [place] [address]- 0426 Aug, [facility] [place] [facility] [address] [id number] [place] [address]- 3386 Aug, [facility] [address] [id number] [place] [address]- 7507 Aug, [facility] [address] [id number] [place] [address]- 3828 July, Diabetes type 2, controlled E11.9 [facility] [address] [id number] [place] [address]- 9679 July, [facility] [place] [facility] [address] [id number] [place] [address]- 7195 July, [facility] [place] [facility] [address] [id number] [place] [address]- 6872 July, [facility] [place] [facility] [address] [id number] [place] [address]- 2682 July, [facility] [place] [facility] [address] [id number] [place] [address]- 5331 Jun, [facility] [place] [facility] [address] [address]- 1995 Jun, [facility] [address] [address]- 4779 May, [facility] [address], [place] [address]- 2476 May, [facility] [address] [address]- 6366 May, [facility] [address] [address]- 1923 May, Controlled type 2 diabetes mellitus without complication, without long-term current use of insulin E11.9 [facility] [address], [place] [address]- 4476 Apr, [facility] [address], [place] [address]- 3706 Apr, [facility] [address] [address]- 4318 Mar, [facility] [address] [address]- 0122 Mar, [facility] [address] 8887 Feb, [facility] [address], [place] [address]- 3516 Feb, [facility] [address] [place] [id number] [address]- 9420 Jan, [facility] [place] [facility] [address] [place] [id number] [address]- 2954 Jan, [facility] [address], [place] [address]- 7447 Jan, [facility] [address] [place] [id number] [address]- 0606 Dec, [facility] [address], [place] [address]- 9414 Dec, [facility] [id number] [place] [address] 14126- 9109 Dec, [facility] [address] [id number] [place] [address] 52028- 8589 29 Nov, 2015 Diabetes type 2, uncontrolled E11.65 [facility] [id number] [place] [address] 22376- 1284 14 Nov, 2015 [facility] [id number] [place] [address] 29340- 8841 Nov, [facility] [address] [place] [id number] [place] [address] 31721- 1096 Oct, [facility] [address] [place] [id number] [place] [address] 04935- 5660 Oct, [facility] [address] [id number] [place] [address] 81725- 4474 Sep, Controlled type 2 diabetes mellitus without complication, without long-term current use of insulin E11.9 [facility] [id number] [place] [address] 96178- 3495 Sep, [facility] [id number] [place] [address] 69637- 3671 Sep, [facility] [address], [place] [address]- 4453 Sep, [facility] [address], [place] [address]- 9974 Sep, [facility] [id number] [place] [address] 90855- 2261 Aug, Diabetes type 2, controlled E11.9 ; Anxiety F41.9 ; Carpal tunnel syndrome, left upper limb G56.02 and Carpal tunnel syndrome, right upper limb G56.01 [facility] [address], [place] [address]- 7386 Aug, Urethritis N34.2 [facility] [address], [place] [address]- 2948 Aug, [facility] [address] [id number] [place] [address] 61828- 9355 July, Genital warts A63.0 [facility] [id number] [place] [address] 23100- 3344 July, [facility] [address] [id number] [place] [address] 16795- 6670 July, Genital warts A63.0 [facility] [address] [id number] [place] [address] 96846- 2212 July, Anxiety F41.9 [facility] [address] [place] [id number] [place] [address] 48585- 7704 Jun, Genital warts A63.0 [facility] [id number] [place] [address] 40685- 9923 Jun, Anxiety F41.9 [facility] [id number] [place] [address] 61433- 7530 May, Genital warts A63.0 and Diabetes type 2, uncontrolled E11.65 [facility] [id number] [place] [address] 81833- 0276 May, [facility] [id number] [place] [address] 29332- 7100 May, [facility] [id number] [place] [address] 26554- 2510 Apr, [facility] [id number] [place] [address] 82230- 5893 Apr, [facility] [address], [place] [address]- 5990 Apr, Diabetes type 2, controlled E11.9 [facility] [id number] [place] [address] 43028- 0481 Apr, Genital warts A63.0 [facility] [id number] [place] [address] 20552- 7257 Apr, [facility] [id number] [place] [address] 82782- 9949 Apr, Diabetes type 2, uncontrolled E11.65 and Genital warts A63.0 [facility] [id number] [place] [address] 28629- 1087 Apr, [facility] [id number] [place] [address] 05118- 5327 Mar, [facility] [id number] [place] [address] 53131- 7084 Mar, [facility] [id number] [place] [address] 94670- 7534 Mar, Family history of diabetes mellitus V18.0 and Weight loss R63.4 [facility] [address] [place] [id number] [place] [address] 09318- 4527 Mar, Genital warts A63.0 and Family history of diabetes mellitus V18.0 [facility] [id number] [place] [address] 46355- 2394 Feb, [facility] [id number] [place] [address] 15407- 6570 Jan, [facility] [id number] [place] [address] 94436- 4184 Jan, Perianal venereal warts A63.0 [facility] [id number] [place] [address] 27662- 9573 Jan, Urethritis N34.2 and Anxiety F41.9 [facility] [id number] [place] [address] 62049- 7813 Jan, [facility] [id number] [place] [address] 40570- 9243 Jan, Urinary tract infection, site unspecified N39.0 [place] [address] [place] [id number] [place] [address] 45581- 1210 Jan, [place] [address] [place] [id number] [place] [address] 11056936- 5300 Dec, [place] [address] [place] [id number] [place] [address] 385758- 2099 Dec, HPV (human papilloma virus) anogenital infection A63.0 ; Anxiety F41.9 and Gastroesophageal reflux disease without esophagitis K21.[address] 994132- 6326 Sep, Blood in stool 578.1 [place] [address] [place] [id number] [place] [address] 91010- 4189 Aug, Blood in stool 578.1 [place] [address] [place] [id number] [place] [address] 47654- 1605 Aug, Anxiety 300.00 and Blood in stool 578.1 [place] [id number] [place] [address] 88318- 0032 July, [place] [address] [place] [id number] [place] [address] 83901- 5122 July, Family history of diabetes mellitus V18.0 [place] [id number] [place] [address] 71515- 4324 July, Family history of diabetes mellitus V18.0 ; Family history of thyroid disease V18.19 ; Polyuria 788.42 ; Polydipsia 783.5 ; Alopecia 704.00 and Fatigue 780.79 [place] [address] [place] [id number] [place] [address] 48304- 5217 Jun, [place] [address] [place] [id number] [place] [address] 95707- 1440 Jun, [place] [address] [place] [address]- 8793 Mar, [facility] [place] [facility] [address] [id number] [place] [address]- 3590 Mar, [facility] [place] [facility] [address] [id number] [place] [address]- 6582 Mar, [facility] [place] [facility] [address] [id number] [place] [address]- 1114 Mar, [facility] [place] [facility] [address] [id number] [place] [address]- 2890 Mar, [facility] [place] [facility] [address] [id number] [place] [address]- 0509 Mar, [facility] [place] [facility] [address] [id number] [place] [address]- 8832 Mar, [facility] [place] [facility] [address] [id number] [place] [address]- 8623 Mar, [facility] [place] [facility] [address] [id number] [place] [address]- 7722 Mar, [facility] [place] [facility] [address] [id number] [place] [address]- 8917 Mar, [facility] [place] [facility] [address] [id number] [place] [address]- 5981 Feb, [facility] [place] [facility] [address] [id number] [place] [address]- 6451 Feb, [facility] [place] [facility] [address] [id number] [place] [address]- 9313 Jan, [facility] [place] [facility] [address] [id number] [place] [address]- 6764 Jan, [facility] [place] [facility] [address] [id number] [place] [address]- 9563 Jan, [facility] [place] [facility] [address] [id number] [place] 9534 Jan, [facility] [place] [facility] [address] [id number] [place] [address]- 2860 Dec, [facility] [place] [facility] [address] [id number] [place] [address]- 9687 Dec, [facility] [place] [facility] [address] [id number] [place] [address]- 4023 Nov, [facility] [place] [facility] [address] [id number] [place] [address]- 0163 Nov, [facility] [place] [facility] [address] [id number] [place] [address]- 5180 Oct, [facility] [place] [facility] [address] [id number] [place] [address]- 0006 Oct, [facility] [place] [facility] [address] [id number] [place] [address]- 6516 Oct, [facility] [place] [facility] [address] [id number] [place] [address]- 6514 Oct, [facility] [place] [facility] [address] [id number] [place] [address]- 8880 Oct, [facility] [place] [facility] [address] [id number] [place] [address]- 8158 Oct, [facility] [place] [facility] [address] [id number] [place] [address]- 0931 Oct, [facility] [place] [facility] [address] [id number] [place] [address]- 1990 Oct, [facility] [place] [facility] [address] [id number] [place] [address]- 3247 Sep, [facility] [place] [facility] [address] [id number] [place] [address]- 6350 Sep, [facility] [place] [facility] [address] [id number] [place] [address]- 9366 Sep, [facility] [place] [facility] [address] [id number] [place] [address]- 2863 Sep, [facility] [place] [facility] [address] [id number] [place] [address]- 1977 Aug, [facility] [place] [facility] [address] [id number] [place] [address]- 8679 Aug, [facility] [place] [facility] [address] [id number] [place] [address]- 8208 Aug, [facility] [place] [facility] [address] [id number] [place] [address]- 1181 Aug, [facility] [place] [facility] [address] [id number] [place] [address]- 3971 July, [facility] [place] [facility] [address] [id number] [place] [address]- 0432 July, [facility] [place] [facility] [address] [id number] [place] [address]- 2488 July, [facility] [place] [facility] [address] [id number] [place] [address]- 1962 July, [facility] [place] [facility] [address] [id number] [place] [address] July, [facility] [place] [facility] [address] [id number] [place] [address] July, [facility] [place] [facility] [address] [id number] [place] [address] Jun, [facility] [place] [facility] [address] [id number] [place] [address] Jun, [facility] [place] [facility] [address] [id number] [place] [address] Jun, [facility] [place] [facility] [address] [id number] [place] [address] Jun, [facility] [place] [facility] [address] [id number] [place] [address] Jun, [facility] [place] [facility] [address] [id number] [place] [address] 14 Jun, 2013 [facility] [address] [id number] [place] [address] 14 Jun, 2013 [facility] [place] [facility] [address] [id number] [place] [address] 14 Jun, 2013 [facility] [place] [facility] [address] [id number] [place] [address] 19 May, 2013 [facility] [place] [facility] [address] [id number] [place] [address] 19 May, 2013 [facility] [place] [facility] [address] [id number] [place] [address] 18 May, 2013 [facility] [place] [facility] [address] [id number] [place] [address] Apr, [facility] [place] [facility] [address] [id number] [place] [address] Apr, [facility] [address] [id number] [place] [address] Apr, [facility] [place] [place] [facility] [address] [id number] [place] [address] Apr, [facility] [place] [facility] [address] [id number] [place] [address] Mar, [facility] [place] [place] [facility] [address] [id number] [place] [address] Mar, [facility] [place] [place] [facility] [address] [id number] [place] [address] Mar, [facility] [place] [facility] [address] [id number] [place] [address]- [address] Mar, [facility] [place] [facility] [address] [id number] [place] [address] 10 Mar, 2013 [facility] [place] [facility] [address] [id number] [place] [address] Mar, [facility] [place] [facility] [address] [id number] [place] [address] Feb, [facility] [place] [facility] [address] [id number] [place] [address] Feb, [facility] [place] [facility] [address] [facility] [id number] [place] [address] Jan, [facility] [place] [facility] [address] [id number] [place] [address] Jan, [facility] [place] [facility] [address] [id number] [place] [address] Jan, [facility] [place] [facility] [address] [id number] [place] [address] Jan, [facility] [place] [facility] [address] [id number] [place] [address] Jan, [facility] [place] [facility] [address] [id number], [place] [address] Jan, [facility] [place] [facility] [address] [id number] [place] [address] Jan, [facility] [place] [facility] [address] [id number], [place] [address] Dec, [facility] [place] [facility] [address] [id number], [place] [address] Dec, [facility] [place] [facility] [address] [id number], [place] [address] Nov, [facility] [place] [facility] [address] [id number] [place] [address] 26 Nov, 2012 [facility] [place] [facility] [address] [facility] [id number], [place] [address] Nov, [facility] [place] [facility] [address] [id number] [place] [address] Oct, [facility] [place] [facility] [address] [id number] [place] [address] Oct, [facility] [facility] [address] [id number] [place] [address] Oct, [facility] [place] [facility] [address] [id number] [place] [address] Oct, [facility] [address] [id number] [place] [address] Sep, [facility] [place] [facility] [address] [id number] [place] [address] Sep, [facility] [address] [id number] [place] [address] Aug, [facility] [address] [id number] [place] [address] Aug, [facility] [address] [id number] [place] [address] Aug, [facility] [address] [id number] [place] [address] Aug, [facility] [address] [id number] [place] [address] July, [facility] [address] [id number] [place] [address] July, [facility] [address] [id number] [place] [address] July, [facility] [address] [id number] [place] [address] July, [facility] [place] [facility] [address] [id number] [place] [address] Jun, [facility] [place] [facility] [address] [id number] [place] [address] Jun, [facility] [address] [id number] [place] [address] Feb, [facility] [place] [address] [facility] [id number] [place] [id number] Feb, [facility] [place] [address] [facility] [id number] [address] Mar, IMMUNIZATIONS No Known Immunizations SOCIAL HISTORY Never Assessed REASON FOR VISIT PDM PLAN OF CARE VITAL SIGNS MEDICATIONS Unknown Medications RESULTS No Results PROCEDURES Procedure Date Ordered Result Body Site DRUG TEST PRSMV CHEM ANLYZR June 03, 2017 DRUG SCREEN AMPHETAMINES 03/22June 03, 2017 DRUG SCREENING TRAMADOL June 03, 2017 INSTRUCTIONS MEDICATIONS ADMINISTERED No Known Medications MEDICAL [...]
--- OUTSIDE RECORDS SUMMARY | 2017-10-18 09:13 | XMS REPORT ---
Author Author MIRELLA MARIA Organization [facility] [place] Address [address] [place] [address] Care Team Providers Care Condominium Manager Name Role Phone MIRELLA MARIA Unavailable PROBLEMS Type Condition ICD9-CM Code LND28-XC Code Onset Dates Condition Status SNOMED Code Problem Mood disorder F39 Active 58445177 Problem Shoulder pain, right M25.511 Active 33101202 Problem Acquired hypothyroidism E03.9 Active 468192069 Problem Low back pain M54.5 Active 722537188 Problem Cervical radiculopathy M54.12 Active 71054963 Problem History of urethral stricture Z87.448 Active 545970120 Problem Diabetes type 2, uncontrolled E11.65 Active 204364986 Problem Hypertension, benign I10 Active 22157011 Problem Controlled type 2 diabetes mellitus without complication, without long -term current use of insulin E11.9 Active 876320999 Problem Diabetes type 2, controlled E11.9 Active 53802013 ALLERGIES No Information ENCOUNTERS Encounter Location Date Diagnosis [place] [id number] [place] [address] 78323- 8530 Sep, [place] [id number] [place] [address] 74056- 6012 Jun, Controlled type 2 diabetes mellitus without complication, without long-term current use of insulin E11.9 [facility] [place] [address] [place] [address] 31448- 9955 May, [place] [id number] [place] [address] 70018- 8494 16 May, 2017 Radiculopathy of cervical region M54.12 [place] [id number] [place] [address] 31914- 1484 14 May, 2017 Controlled type 2 diabetes mellitus without complication, without long-term current use of insulin E11.9 [place] [address], [place] [address] 6845 May, [facility] [place] [address] [place] [address] 05109- 7974 May, Controlled type 2 diabetes mellitus without complication, without long-term current use of insulin E11.9 [facility] [place] [address], [place] [address] 8138 May, Controlled type 2 diabetes mellitus without complication, without long-term current use of insulin E11.9 [facility] [place] [address], [place] [address]- 7090 May, Controlled type 2 diabetes mellitus without complication, without long-term current use of insulin E11.9 [place] [address], [place] [address]- 6139 Apr, [place] [id number] [place] [address] 80202- 4809 Apr, Controlled type 2 diabetes mellitus without complication, without long-term current use of insulin E11.9 [place] [address], [place] [address]- 0865 Apr, [facility] [place] [address], [place] [address]- 3955 Apr, Controlled type 2 diabetes mellitus without complication, without long-term current use of insulin E11.9 [place] [address], [place] [address]- 1196 Mar, [facility] [place] [address], [place] [address]- 1018 Mar, Radiculopathy of cervical region M54.12 [facility] [place] [address], [place] [address]- 9446 Mar, Controlled type 2 diabetes mellitus without complication, without long-term current use of insulin E11.9 [place] [address], [place] [address]- 4691 Feb, Cervical radiculopathy M54.12 ; Acute cystitis without hematuria N30.00 and History of urethral stricture Z87.448 [facility] [place] [id number] [place] [address] 45936- 2164 Feb, Controlled type 2 diabetes mellitus without complication, without long-term current use of insulin E11.9 [place] [id number] [place] [address] 72342- 8597 Feb, [facility] [place] [id number] [place] [address] 49597- 8684 Jan, Diabetes type 2, uncontrolled E11.65 [place] [id number] [place] [address] 80077- 0208 Jan, [place] [id number] [place] [address] 35983- 0658 Jan, Controlled type 2 diabetes mellitus without complication, without long-term current use of insulin E11.9 ; Chest wall pain R07.89 and Thoracic spine pain M54.6 [place] [id number] [place] [address] 61480- 7771 Dec, [facility] [place] [id number] [place] [address] 27347- 4008 Dec, [facility] [place] [address] [place] [address] 99636- 1106 Nov, [facility] [place] [id number] [place] [address] 19862- 8310 Nov, [facility] [id number] [place] [address] 32473 -6665 Nov, Trichomonas exposure Z20.2 [facility] [place] [id number] [place] [address] 52487- 9758 Oct, [facility] [place] [address] [place] [address] 45591- 0638 Oct, [facility] [place] [id number] [address]- 0289 Oct, [facility] [address] [id number] [place] [address]- 5844 Oct, [facility] [address] [id number] [place] [address]- 7446 Sep, [facility] [address] [id number] [place] [address]- 5021 Sep, [facility] [address] [id number] [place] [address]- 8036 Aug, [facility] [address] [id number] [place] [address]- 3807 Aug, [facility] [address] [id number] [place] [address]- 7610 Aug, [facility] [address] [id number] [place] [address]- 8170 Aug, [facility] [address] [facility] [id number] [place] [address]- 8284 July, Diabetes type 2, controlled E11.9 [facility] [place] [address] [address]- 3212 July, [facility] [address] [facility] [id number] [place] [address]- 8958 July, [facility] [address] [id number] [place] [address]- 0639 July, [facility] [address] [id number] [place] [address]- 0710 July, [facility] [address] [id number] [place] [address]- 7995 Jun, [facility] [address] [id number] [place] [address]- 5142 Jun, [facility] [address] [id number], [place] [address]- 7266 May, [facility] [place] [address] [facility] [id number] [place] [address]- 3553 May, [facility] [place] [address] [facility] [id number], [place] [address]- 5916 May, [facility] [place] [address] [facility] [id number] [place] [address] 2547 May, Controlled type 2 diabetes mellitus without complication, without long-term current use of insulin E11.9 [facility] [place] [address] [id number] [place] [address]- 8315 Apr, [facility] [place] [address] [facility] [id number] [place] [address], [place] [address]- 1806 Apr, [facility] [place] [id number] [address]- 9907 Mar, [facility] [place] [address] [facility] [id number] [place] [address] 69318- 3078 Mar, [facility] [place] [address] [facility] [id number] [place] [address]- 8769 Feb, [facility] [place] [id number], [place] [address]- 1380 Feb, [facility] [place] [id number], [place] [address]- 1302 Jan, [facility] [place] [address] [facility] [id number], [place] [address]- 1663 Jan, [facility] [place] [address] [facility] [id number] [place] [address]- 2093 Jan, [facility] [place] [address] [facility] [id number] [place] [address]- 0122 Dec, [facility] [address] [facility] [id number], [place] [address]- 4803 Dec, [facility] [place] [address] [facility] [id number] [place] [address] 24313- 4902 Dec, [facility] [place] [address], [place] [address]- 7475 29 Nov, 2015 Diabetes type 2, uncontrolled E11.65 [facility] [place] [address], [place] [address]- 7789 14 Nov, 2015 [facility] [place] [id number] [place] [address] 56446- 6930 Nov, [facility] [place] [id number] [place] [address] 64685- 8235 Oct, [facility] [place] [id number] [place] [address] 59212- 9740 Oct, [facility] [place] [id number] [place] [address] 01299- 0286 Sep, Controlled type 2 diabetes mellitus without complication, without long-term current use of insulin E11.9 [facility] [place] [id number] [place] [address] 98060- 7131 Sep, [facility] [place] [id number] [place] [address] 49923- 5278 Sep, [facility] [place] [id number] [place] [address] 13179- 2652 Sep, [facility] [place] [address] [place] [address] 86593- 1490 Sep, [facility] [place] [address] [place] [address] 37046- 1094 Aug, Diabetes type 2, controlled E11.9 ; Anxiety F41.9 ; Carpal tunnel syndrome, left upper limb G56.02 and Carpal tunnel syndrome, right upper limb G56.01 [facility] [place] [address] [place] [address] 01891- 2036 Aug, Urethritis N34.2 [facility] [place] [address] [place] [address] 75522- 0010 Aug, [facility] [place] [address] [facility] [id number], [place] [address]- 2271 July, Genital warts A63.0 [facility] [place] [address] [facility] [id number], [place] [address]- 8636 July, [facility] [place] [address], [place] [address]- 8076 July, Genital warts A63.0 [facility] [place] [address] [place] [address] 45909- 1900 July, Anxiety F41.9 [facility] [place] [address] [place] [address] 75112- 6972 Jun, Genital warts A63.0 [facility] [place] [address] [place] [address] 75040- 0160 Jun, Anxiety F41.9 [facility] [place] [address] [place] [address] 35477- 5036 May, Genital warts A63.0 and Diabetes type 2, uncontrolled E11.65 [facility] [place] [address], [place] [address]- 1763 May, [facility] [place] [address], [place] [address]- 4950 May, [facility] [place] [address], [place] [address]- 5780 Apr, [facility] [place] [address], [place] [address]- 2546 Apr, [facility] [place] [address] [place] [address] 62417- 5828 Apr, Diabetes type 2, controlled E11.9 [facility] [place] [address], [place] [address]- 2546 Apr, Genital warts A63.0 [facility] [place] [address] [place] [address] 08328- 0742 Apr, [facility] [place] [address] [place] [address] 76191- 0246 Apr, Diabetes type 2, uncontrolled E11.65 and Genital warts A63.0 [facility] [place] [address] [place] [address] 03765- 0738 Apr, [facility] [place] [id number] [place] [address] 62183- 9180 Mar, [facility] [place] [address] [place] [address] 36235- 8275 Mar, [facility] [place] [id number] [place] [address] 90015- 6444 Mar, Family history of diabetes mellitus V18.0 and Weight loss R63.4 [facility] [place] [id number] [place] [address] 12959- 4135 Mar, Genital warts A63.0 and Family history of diabetes mellitus V18.0 [facility] [place] [address] [place] [address] 04915- 4282 Feb, [facility] [place] [address] [place] [address] 79883- 2057 Jan, [facility] [place] [address] [place] [address] 84192- 6655 Jan, Perianal venereal warts A63.0 [facility] [place] [address] [place] [address] 85885- 0019 Jan, Urethritis N34.2 and Anxiety F41.9 [facility] [place] [id number] [place] [address] 86089- 1092 Jan, [facility] [place] [address] [place] [address] 30217- 9041 Jan, Urinary tract infection, site unspecified N39.0 [facility] [place] [id number] [place] [address] 90752- 9080 Jan, [place] [address] 07283- 2420 Dec, [place] [address] 27506- 5580 Dec, HPV (human papilloma virus) anogenital infection A63.0 ; Anxiety F41.9 and Gastroesophageal reflux disease without esophagitis K21.9 [place] [address] 46053- 3302 Sep, Blood in stool 578.1 [place] [address] 19877- 5414 Aug, Blood in stool 578.1 [place] [address] 00705- 3385 Aug, Anxiety 300.00 and Blood in stool 578.1 [place] [address] 27495- 2149 July, [place] [address] 76427- 8675 July, Family history of diabetes mellitus V18.0 [place] [id number] [place] [address] 14272- 5488 July, Family history of diabetes mellitus V18.0 ; Family history of thyroid disease V18.19 ; Polyuria 788.42 ; Polydipsia 783.5 ; Alopecia 704.00 and Fatigue 780.79 [place] [id number] [place] [address] 40877- 6974 Jun, [place] [address] 37637- 3526 Jun, [place] [address] 36612- 4932 Mar, [place] [address] 62199- 3692 Mar, [facility] [place] [facility] [address] [id number] [place] [address]- 9846 Mar, [facility] [place] [facility] [address] [id number] [place] [address]- 9126 Mar, [facility] [place] [facility] [address] [id number] [place] [address]- 4416 Mar, [facility] [place] [facility] [address] [id number] [place] [address]- 3538 Mar, [facility] [place] [facility] [address] [id number] [place] [address]- 9153 Mar, [facility] [place] [facility] [address] [id number] [place] [address]- 7637 Mar, [facility] [place] [facility] [address] [id number] [place] [address]- 3380 Mar, [facility] [place] [facility] [address] [id number] [place] [address]- 8167 Mar, [facility] [place] [facility] [address] [id number] [place] [address]- 8195 Feb, [facility] [place] [facility] [address] [id number] [place] [address]- 7545 Feb, [facility] [place] [facility] [address] [id number], [place] [address]- 0465 Jan, [facility] [place] [facility] [address] [id number], [place] [address]- 1124 Jan, [facility] [place] [facility] [address] [id number] [place] [address]- 3019 Jan, [facility] [place] [facility] [address] [id number] [place] [address]- 8701 Jan, [facility] [place] [facility] [address] [id number] [place] [address]- 8605 Dec, [facility] [place] [facility] [address] [id number] [place] [address]- 1036 Dec, [facility] [place] [facility] [address] [id number] [place] [address]- 4480 Nov, [facility] [place] [facility] [address] [id number] [place] [address]- 5015 Nov, [facility] [place] [facility] [address] [id number] [place] [address]- 6095 Oct, [facility] [place] [facility] [address] [id number] [place] [address]- 0283 Oct, [facility] [place] [facility] [address] [id number] [place] [address]- 6202 Oct, [facility] [place] [facility] [address] [id number] [place] [address]- 6643 Oct, [facility] [place] [facility] [address] [id number] [place] [address]- 3256 Oct, [facility] [place] [facility] [address] [id number] [place] [address]- 3207 Oct, [facility] [place] [facility] [address] [id number] [place] [address]- 4555 Oct, [facility] [place] [facility] [address] [id number] [place] [address]- 9539 Oct, [facility] [place] [facility] [address] [id number] [place] [address]- 8870 Sep, [facility] [place] [facility] [address] [id number] [place] [address]- 9824 Sep, [facility] [place] [facility] [address] [id number] [place] [address]- 8161 Sep, [facility] [place] [facility] [address] [id number] [place] [address]- 5874 Sep, [facility] [place] [facility] [address] [id number] [place] [address]- 1930 Aug, [facility] [place] [facility] [address] [id number] [place] [address]- 1562 Aug, [facility] [place] [facility] [address] [id number] [place] [address]- 2003 Aug, [facility] [place] [facility] [address] [id number] [place] [address]- 0210 Aug, [facility] [place] [facility] [address] [id number] [place] [address]- 8330 July, [facility] [place] [facility] [address] [id number] [place] [address]- 5400 July, [facility] [place] [facility] [address] [id number] [place] [address]- 4918 July, [facility] [place] [facility] [address] [id number] [place] [address]- 8457 July, [facility] [place] [facility] [address] [id number] [place] [address]- 2617 July, [facility] [place] [facility] [address] [id number] [place] [address]- 7917 July, [facility] [place] [facility] [address] [id number] [place] [address]- 5362 Jun, [facility] [place] [facility] [address] [id number] [place] [address]- 5936 Jun, [facility] [place] [facility] [address] [id number] [place] [address]- 7526 Jun, [facility] [place] [facility] [address] [id number] [place] [address] Jun, [facility] [place] [facility] [address] [id number] [place] [address] Jun, [facility] [place] [facility] [address] [id number] [place] [address] Jun, [facility] [place] [facility] [address] [id number] [place] [address] 14 Jun, 2013 [facility] [place] [facility] [address] [id number] [place] [address] 14 Jun, 2013 [facility] [place] [facility] [address] [id number] [place] [address] 19 May, 2013 [facility] [place] [facility] [address] [id number] [place] [address] May, [facility] [place] [facility] [address] [id number] [place] [address] 18 May, 2013 [facility] [place] [facility] [address] [id number] [place] [address] Apr, [facility] [place] [facility] [address] [id number] [place] [address] Apr, [facility] [place] [facility] [address] [id number] [place] [address] Apr, [facility] [place] [facility] [address] [id number] [place] [address] Apr, [facility] [place] [facility] [address] [id number] [place] [address] Mar, [facility] [place] [facility] [address] [id number] [place] [address] Mar, [facility] [place] [facility] [address] [id number] [place] [address] Mar, [facility] [place] [facility] [address] [id number] [place] [address] Mar, [facility] [place] [facility] [address] [id number] [place] [address] Mar, [facility] [place] [facility] [address] [id number] [place] [address] Mar, [facility] [place] [facility] [address] [id number] [place] [address] Feb, [facility] [place] [facility] [address] [id number] [place] [address] Feb, [facility] [place] [facility] [address] [id number] [place] [address] Jan, [facility] [place] [facility] [address] [id number] [place] [address] Jan, [facility] [place] [facility] [address] [id number] [place] [address] Jan, [facility] [place] [facility] [address] [id number] [place] [address] Jan, [facility] [place] [facility] [address] [id number] [place] [address] Jan, [facility] [place] [facility] [address] [id number] [place] [address] Jan, [facility] [place] [facility] [address] [id number] [place] [address] Jan, [facility] [place] [facility] [address] [id number] [place] [address] Dec, [facility] [place] [facility] [address] [id number] [place] [address] Dec, [facility] [place] [facility] [address] [id number] [place] [address] Nov, [facility] [place] [facility] [address] [id number] [place] [address] Nov, [facility] [place] [facility] [address] [id number] [place] [address] Nov, [facility] [place] [facility] [address] [id number] [place] [address] Oct, [facility] [place] [facility] [address] [id number] [place] [address] Oct, [facility] [place] [facility] [address] [id number] [place] [address] Oct, [facility] [address] [id number] [place] [address] Oct, [facility] [place] [facility] [address] [id number] [place] [address] Sep, [facility] [place] [facility] [address] [id number] [place] [address] Sep, [facility] [place] [facility] [address] [id number] [place] [address] Aug, [facility] [place] [facility] [address] [id number] [place] [address] Aug, [facility] [place] [facility] [address] [id number] [place] [address] Aug, [facility] [place] [facility] [address] [id number] [place] [address] Aug, [facility] [place] [facility] [address] [id number] [place] [address] July, [facility] [address] [id number] [place] [id number] July, [facility] [place] [facility] [address] [id number] [place] [address] July, [facility] [address] [id number] [place] [address] July, [facility] [place] [facility] [address] [id number] [place] [address] Jun, [facility] [place] [facility] [address] [id number] [place] [address] Jun, [facility] [place] [facility] [address] [id number] [place] [address] Feb, [facility] [place] [facility] [address] [id number] [place] [address] Feb, [facility] [place] [facility] [address] [id number] [place] [id number] 13 Mar, 2009 IMMUNIZATIONS No Known Immunizations SOCIAL HISTORY Never Assessed REASON FOR VISIT Controlled Med Refill denied PLAN OF CARE VITAL SIGNS MEDICATIONS Unknown [...]
--- OUTSIDE RECORDS SUMMARY | 2017-10-18 09:13 | XMS REPORT ---
Author Author MIRELLA MARIA Organization [facility] Address [address] [place] [address] Care Team Providers Care Dustless Operator Name Role Phone MIRELLA MARIA Unavailable PROBLEMS Type Condition ICD9-CM Code TVN60-BH Code Onset Dates Condition Status SNOMED Code Problem Mood disorder F39 Active 06400741 Problem Shoulder pain, right M25.511 Active 53082197 Problem Acquired hypothyroidism E03.9 Active 488572379 Problem Low back pain M54.5 Active 003755973 Problem Cervical radiculopathy M54.12 Active 50010492 Problem History of urethral stricture Z87.448 Active 424570093 Problem Diabetes type 2, uncontrolled E11.65 Active 592460130 Problem Hypertension, benign I10 Active 88763607 Problem Controlled type 2 diabetes mellitus without complication, without long -term current use of insulin E11.9 Active 060074405 Problem Diabetes type 2, controlled E11.9 Active 69397822 ALLERGIES No Information ENCOUNTERS Encounter Location Date Diagnosis [place] [id number] [place] [address] 42443- 7260 Sep, [place] [id number] [place] [address] 02076- 1894 Jun, Controlled type 2 diabetes mellitus without complication, without long-term current use of insulin E11.9 [facility] [id number] [place] [address] 57941- 1004 May, [place] [id number] [place] [address] 17748- 1107 16 May, 2017 Radiculopathy of cervical region M54.12 [place] [id number] [place] [address] 75263- 1250 14 May, 2017 Controlled type 2 diabetes mellitus without complication, without long-term current use of insulin E11.9 [place] [address], [place] [address] 5[address] May, [facility] [id number] [place] [address] 31719- 0771 May, Controlled type 2 diabetes mellitus without complication, without long-term current use of insulin E11.9 [facility] [address], [place] [address]- 6787 May, Controlled type 2 diabetes mellitus without complication, without long-term current use of insulin E11.9 [facility] [address], [place] [address]- 0962 May, Controlled type 2 diabetes mellitus without complication, without long-term current use of insulin E11.9 [place] [address], [place] [address]- 6749 Apr, [place] [id number] [place] [address] 21924- 0015 Apr, Controlled type 2 diabetes mellitus without complication, without long-term current use of insulin E11.9 [place] [address], [place] [address]- 5744 Apr, [facility] [address], [place] [address]- 4411 Apr, Controlled type 2 diabetes mellitus without complication, without long-term current use of insulin E11.9 [place] [address], [place] [address]- 8401 Mar, [facility] [address], [place] [address] 6039 Mar, Radiculopathy of cervical region M54.12 [facility] [address], [place] [address] 1970 Mar, Controlled type 2 diabetes mellitus without complication, without long-term current use of insulin E11.9 [place] [address], [place] [address]- 1251 Feb, Cervical radiculopathy M54.12 ; Acute cystitis without hematuria N30.00 and History of urethral stricture Z87.448 [facility] [id number] [place] [address] 78989- 1164 Feb, Controlled type 2 diabetes mellitus without complication, without long-term current use of insulin E11.9 [place] [id number] [place] [address] 72099- 7747 Feb, [facility] [id number] [place] [address] 31508- 6334 Jan, Diabetes type 2, uncontrolled E11.65 [place] [id number] [place] [address] 82528- 3642 Jan, [place] [id number] [place] [address] 39675- 5415 Jan, Controlled type 2 diabetes mellitus without complication, without long-term current use of insulin E11.9 ; Chest wall pain R07.89 and Thoracic spine pain M54.6 [place] [id number] [place] [address] 37556- 9217 Dec, [facility] [id number] [place] [address] 83646- 6585 Dec, [facility] [id number] [place] [address] 64034- 3110 Nov, [facility] [id number] [place] [address] 78293- 0635 Nov, [facility] [id number] [place] [address] 26918 -6496 Nov, Trichomonas exposure Z20.2 [facility] [id number] [place] [address] 13763- 6881 Oct, [facility] [id number] [place] [address] 25893- 7913 Oct, [facility] [id number] [place] [address]- 5304 Oct, [facility] [address] [id number] [place] [address]- 6828 Oct, [facility] [address] [id number] [place] [address]- 6343 Sep, [facility] [address] [id number] [place] [address]- 9357 Sep, [facility] [address] [id number] [place] [address]- 4143 Aug, [facility] [address] [id number] [place] [address]- 5382 Aug, [facility] [address] [id number] [place] [address]- 6006 Aug, [facility] [address] [id number] [place] [address]- 4823 Aug, [facility] [address] [facility] [id number] [place] [address]- 0608 July, Diabetes type 2, controlled E11.9 [facility] [address] [place] [address]- 8627 July, [facility] [address] [facility] [id number] [place] [address]- 7566 July, [facility] [address] [id number] [place] [address]- 8845 July, [facility] [address] [id number] [place] [address]- 1114 July, [facility] [address] [id number] [place] [address]- 8229 Jun, [facility] [address] [id number] [place] [address]- 9343 Jun, [facility] [address] [id number], [place] [address]- 5496 May, [facility] [address] [facility] [id number] [place] [address]- 2004 May, [facility] [address] [facility] [id number], [place] [address]- 8536 May, [facility] [address] [facility] [id number] [place] [address] 2548 May, Controlled type 2 diabetes mellitus without complication, without long-term current use of insulin E11.9 [facility] [address] [id number] [place] [address]- 1846 Apr, [facility] [address] [facility] [id number] [place] [address], [place] [address]- 3346 Apr, [facility] [id number] [place] [address]- 0134 Mar, [facility] [address] [facility] [id number] [place] [address] 03591- 8363 Mar, [facility] [address] [facility] [id number] [place] [address]- 7259 Feb, [facility] [id number], [place] [address]- 5812 Feb, [facility] [id number], [place] [address]- 5878 Jan, [facility] [address] [facility] [id number], [place] [address]- 9956 Jan, [facility] [address] [facility] [id number] [place] [address]- 4401 Jan, [facility] [address] [facility] [id number] [place] [address]- 8270 Dec, [facility] [address] [facility] [id number], [place] [address]- 4379 Dec, [facility] [address] [facility] [id number] [place] [address] 61314- 5308 Dec, [facility] [address], [place] [address]- 0550 29 Nov, 2015 Diabetes type 2, uncontrolled E11.65 [facility] [address], [place] [address]- 8382 14 Nov, 2015 [facility] [id number] [place] [address] 65870- 7562 Nov, [facility] [id number] [place] [address] 60666- 4636 Oct, [facility] [id number] [place] [address] 42704- 9955 Oct, [facility] [id number] [place] [address] 72461- 8277 Sep, Controlled type 2 diabetes mellitus without complication, without long-term current use of insulin E11.9 [facility] [id number] [place] [address] 56623- 7731 Sep, [facility] [id number] [place] [address] 09803- 6399 Sep, [facility] [id number] [place] [address] 19487- 1676 Sep, [facility] [id number] [place] [address] 74880- 0847 Sep, [facility] [id number] [place] [address] 02246- 6197 Aug, Diabetes type 2, controlled E11.9 ; Anxiety F41.9 ; Carpal tunnel syndrome, left upper limb G56.02 and Carpal tunnel syndrome, right upper limb G56.01 [facility] [id number] [place] [address] 86935- 1609 Aug, Urethritis N34.2 [facility] [id number] [place] [address] 83356- 2248 Aug, [facility] [address] [facility] [id number], [place] [address]- 1210 July, Genital warts A63.0 [facility] [address] [facility] [id number], [place] [address]- 4796 July, [facility] [address], [place] [address]- 8706 July, Genital warts A63.0 [facility] [id number] [place] [address] 88711- 9891 July, Anxiety F41.9 [facility] [id number] [place] [address] 13558- 1493 Jun, Genital warts A63.0 [facility] [id number] [place] [address] 09713- 5863 Jun, Anxiety F41.9 [facility] [id number] [place] [address] 20550- 0469 May, Genital warts A63.0 and Diabetes type 2, uncontrolled E11.65 [facility] [address], [place] [address]- 5870 May, [facility] [address], [place] [address]- 6238 May, [facility] [address], [place] [address]- 6091 Apr, [facility] [address], [place] [address]- 2546 Apr, [facility] [id number] [place] [address] 41732- 0993 Apr, Diabetes type 2, controlled E11.9 [facility] [address], [place] [address]- 2546 Apr, Genital warts A63.0 [facility] [id number] [place] [address] 00768- 6514 Apr, [facility] [id number] [place] [address] 70763- 2941 Apr, Diabetes type 2, uncontrolled E11.65 and Genital warts A63.0 [facility] [id number] [place] [address] 49763- 0178 Apr, [facility] [id number] [place] [address] 26437- 2514 Mar, [facility] [id number] [place] [address] 22837- 0508 Mar, [facility] [id number] [place] [address] 53269- 7359 Mar, Family history of diabetes mellitus V18.0 and Weight loss R63.4 [facility] [id number] [place] [address] 28528- 3940 Mar, Genital warts A63.0 and Family history of diabetes mellitus V18.0 [facility] [id number] [place] [address] 89696- 4158 Feb, [facility] [id number] [place] [address] 12856- 0928 Jan, [facility] [id number] [place] [address] 09747- 1719 Jan, Perianal venereal warts A63.0 [facility] [id number] [place] [address] 84977- 6397 Jan, Urethritis N34.2 and Anxiety F41.9 [facility] [id number] [place] [address] 45813- 8169 Jan, [facility] [id number] [place] [address] 81723- 2815 Jan, Urinary tract infection, site unspecified N39.0 [facility] [id number] [place] [address] 93291- 3994 Jan, [place] [address] 05618- 8921 Dec, [place] [address] 25474- 4492 Dec, HPV (human papilloma virus) anogenital infection A63.0 ; Anxiety F41.9 and Gastroesophageal reflux disease without esophagitis K21.9 [place] [address] 35655- 4087 Sep, Blood in stool 578.1 [place] [address] 76024- 8413 Aug, Blood in stool 578.1 [place] [address] 23329- 8693 Aug, Anxiety 300.00 and Blood in stool 578.1 [place] [address] 38848- 5107 July, [place] [address] 61174- 5577 July, Family history of diabetes mellitus V18.0 [place] [id number] [place] [address] 69492- 7478 July, Family history of diabetes mellitus V18.0 ; Family history of thyroid disease V18.19 ; Polyuria 788.42 ; Polydipsia 783.5 ; Alopecia 704.00 and Fatigue 780.79 [place] [id number] [place] [address] 53754- 0673 Jun, [place] [address] 74559- 2882 Jun, [place] [address] 74802- 3876 Mar, [place] [address] 10938- 6390 Mar, [facility] [place] [facility] [address] [id number] [place] [address]- 9097 Mar, [facility] [place] [facility] [address] [id number] [place] [address]- 7726 Mar, [facility] [place] [facility] [address] [id number] [place] [address]- 2626 Mar, [facility] [place] [facility] [address] [id number] [place] [address]- 7191 Mar, [facility] [place] [facility] [address] [id number] [place] [address]- 6228 Mar, [facility] [place] [facility] [address] [id number] [place] [address]- 6816 Mar, [facility] [place] [facility] [address] [id number] [place] [address]- 6712 Mar, [facility] [place] [facility] [address] [id number] [place] [address]- 0203 Mar, [facility] [place] [facility] [address] [id number] [place] [address]- 8414 Feb, [facility] [place] [facility] [address] [id number] [place] [address]- 0302 Feb, [facility] [place] [facility] [address] [id number], [place] [address]- 1086 Jan, [facility] [place] [facility] [address] [id number], [place] [address]- 0598 Jan, [facility] [place] [facility] [address] [id number] [place] [address]- 5979 Jan, [facility] [place] [facility] [address] [id number] [place] [address]- 8387 Jan, [facility] [place] [facility] [address] [id number] [place] [address]- 0905 Dec, [facility] [place] [facility] [address] [id number] [place] [address]- 8804 Dec, [facility] [place] [facility] [address] [id number] [place] [address]- 6000 Nov, [facility] [place] [facility] [address] [id number] [place] [address]- 5068 Nov, [facility] [place] [facility] [address] [id number] [place] [address]- 0658 Oct, [facility] [place] [facility] [address] [id number] [place] [address]- 4438 Oct, [facility] [place] [facility] [address] [id number] [place] [address]- 4501 Oct, [facility] [place] [facility] [address] [id number] [place] [address]- 2452 Oct, [facility] [place] [facility] [address] [id number] [place] [address]- 8932 Oct, [facility] [place] [facility] [address] [id number] [place] [address]- 5688 Oct, [facility] [place] [facility] [address] [id number] [place] [address]- 3511 Oct, [facility] [place] [facility] [address] [id number] [place] [address]- 3431 Oct, [facility] [place] [facility] [address] [id number] [place] [address]- 1889 Sep, [facility] [place] [facility] [address] [id number] [place] [address]- 8124 Sep, [facility] [place] [facility] [address] [id number] [place] [address]- 5781 Sep, [facility] [place] [facility] [address] [id number] [place] [address]- 2717 Sep, [facility] [place] [facility] [address] [id number] [place] [address]- 0137 Aug, [facility] [place] [facility] [address] [id number] [place] [address]- 7087 Aug, [facility] [place] [facility] [address] [id number] [place] [address]- 0901 Aug, [facility] [place] [facility] [address] [id number] [place] [address]- 9200 Aug, [facility] [place] [facility] [address] [id number] [place] [address]- 0192 July, [facility] [place] [facility] [address] [id number] [place] [address]- 2581 July, [facility] [place] [facility] [address] [id number] [place] [address]- 1138 July, [facility] [place] [facility] [address] [id number] [place] [address]- 9915 July, [facility] [place] [facility] [address] [id number] [place] [address]- 5934 July, [facility] [place] [facility] [address] [id number] [place] [address]- 3256 July, [facility] [place] [facility] [address] [id number] [place] [address]- 0941 Jun, [facility] [place] [facility] [address] [id number] [place] [address]- 6994 Jun, [facility] [place] [facility] [address] [id number] [place] [address]- 4206 Jun, [facility] [place] [facility] [address] [id number] [place] [address]- 7017 Jun, [facility] [place] [facility] [address] [id number] [place] [address]- 5000 Jun, [facility] [place] [facility] [address] [id number] [place] [address]- 6924 Jun, [facility] [place] [facility] [address] [id number] [place] [address]- 3237 14 Jun, 2013 [facility] [place] [facility] [address] [id number] [place] [address]- 4192 14 Jun, 2013 [facility] [place] [facility] [address] [id number] [place] [address]- 8729 19 May, 2013 [facility] [place] [facility] [address] [id number] [place] [address]- 3573 May, [facility] [place] [facility] [address] [id number] [place] [address]- 4342 18 May, 2013 [facility] [place] [facility] [address] [id number] [place] [address]- 5007 Apr, [facility] [place] [facility] [address] [id number] [place] [address]- 9859 Apr, [facility] [place] [facility] [address] [id number] [place] [address]- 2308 Apr, [facility] [place] [facility] [address] [id number] [place] [address]- 5863 Apr, [facility] [place] [facility] [address] [id number] [place] [address] Mar, [facility] [place] [facility] [address] [id number] [place] [address] Mar, [facility] [place] [facility] [address] [id number] [place] [address] Mar, [facility] [place] [facility] [address] [id number] [place] [address] Mar, [facility] [place] [facility] [address] [id number] [place] [address] Mar, [facility] [place] [facility] [address] [id number] [place] [address] Mar, [facility] [place] [facility] [address] [id number] [place] [address] Feb, [facility] [place] [facility] [address] [id number] [place] [address] Feb, [facility] [place] [facility] [address] [id number] [place] [address] Jan, [facility] [place] [facility] [address] [id number] [place] [address] Jan, [facility] [place] [facility] [address] [id number] [place] [address] Jan, [facility] [place] [facility] [address] [id number] [place] [address] Jan, [facility] [place] [facility] [address] [id number] [place] [address] Jan, [facility] [place] [facility] [address] [id number] [place] [address] Jan, [facility] [place] [facility] [address] [id number] [place] [address] Jan, [facility] [place] [facility] [address] [id number] [place] [address] Dec, [facility] [place] [facility] [address] [id number] [place] [address] Dec, [facility] [place] [facility] [address] [id number] [place] [address] Nov, [facility] [place] [facility] [address] [id number] [place] [address] Nov, [facility] [place] [facility] [address] [id number] [place] [address] Nov, [facility] [place] [facility] [address] [id number] [place] [address] Oct, [facility] [place] [facility] [address] [id number] [place] [address] Oct, [facility] [place] [facility] [address] [id number] [place] [address] Oct, [facility] [address] [id number] [place] [address] Oct, [facility] [place] [facility] [address] [id number] [place] [address] Sep, [facility] [place] [facility] [address] [id number] [place] [address] Sep, [facility] [place] [facility] [address] [id number] [place] [address] Aug, [facility] [place] [facility] [address] [id number] [place] [address] Aug, [facility] [place] [facility] [address] [id number] [place] [address]6 Aug, [facility] [place] [facility] [address] [id number] [place] [address] Aug, [facility] [place] [facility] [address] [id number] [place] [address] July, [facility] [address] [id number] [place] [address] July, [facility] [place] [facility] [address] [id number] [place] [address] July, [facility] [address] [id number] [place] [address] July, [facility] [place] [facility] [address] [id number] [place] [address] Jun, [facility] [place] [facility] [address] [id number] [place] [address] Jun, [facility] [place] [facility] [address] [id number] [place] [address] Feb, [facility] [place] [facility] [address] [id number] [place] [address] Feb, [facility] [place] [facility] [address] [id number] [place] [address] 13 Mar, 2009 IMMUNIZATIONS No Known Immunizations SOCIAL HISTORY Never Assessed REASON FOR VISIT Controlled Med Refill PLAN OF CARE VITAL SIGNS MEDICATIONS Medication Instructions Dosage Frequency Start Date End Date Duration Status Tramadol HCl 50 MG Orally 4 times a day 1 tablet as needed 6h May, 28 days Active Metformin HCl 1000 MG TAKE ONE TABLET BY MOUTH TWICE DAILY WITH MEALS 30 Active RESULTS No Results PROCEDURES No Known [...]
--- OUTSIDE RECORDS SUMMARY | 2017-10-18 09:14 | XMS REPORT ---
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 Name Role Phone MIRELLA MARIA Unavailable PROBLEMS Type Condition ICD9-CM Code PXV20-VJ Code Onset Dates Condition Status SNOMED Code Problem Mood disorder F39 Active 09117191 Problem Shoulder pain, right M25.511 Active 01456102 Problem Acquired hypothyroidism E03.9 Active 151217962 Problem Low back pain M54.5 Active 534482812 Problem Cervical radiculopathy M54.12 Active 13143548 Problem History of urethral stricture Z87.448 Active 326794338 Problem Diabetes type 2, uncontrolled E11.65 Active 993328775 Problem Hypertension, benign I10 Active 36186697 Problem Controlled type 2 diabetes mellitus without complication, without long -term current use of insulin E11.9 Active 300776852 Problem Diabetes type 2, controlled E11.9 Active 75876908 ALLERGIES No Information ENCOUNTERS Encounter Location Date Diagnosis [place] [id number] [place] [address] 83271- 8403 Jun, Controlled type 2 diabetes mellitus without complication, without long-term current use of insulin E11.9 [place] [id number] [place] [address] 62088- 7716 19 May, 2017 [place] [id number] [place] [address] 95006- 2330 16 May, 2017 Radiculopathy of cervical region M54.12 [place] [id number] [place] [address] 41252- 7936 14 May, 2017 Controlled type 2 diabetes mellitus without complication, without long-term current use of insulin E11.9 [place] [id number] [place] [address] 81427- 3836 12 May, 2017 [place] [address], [place] [address]- 4940 May, Controlled type 2 diabetes mellitus without complication, without long-term current use of insulin E11.9 [place] [address], [place] [address]- 3091 May, Controlled type 2 diabetes mellitus without complication, without long-term current use of insulin E11.9 [place] [address], [place] [address]- 9150 May, Controlled type 2 diabetes mellitus without complication, without long-term current use of insulin E11.9 [place] [address], [place] [address]- 9093 Apr, [place] [address], [place] [address]- 9094 Apr, Controlled type 2 diabetes mellitus without complication, without long-term current use of insulin E11.9 [place] [address], [place] [address]- 6671 Apr, [place] [address], [place] [address]- 0518 Apr, Controlled type 2 diabetes mellitus without complication, without long-term current use of insulin E11.9 [place] [address], [place] [address]- 1141 Mar, [place] [address] [address]- 2192 Mar, Radiculopathy of cervical region M54.12 [place] [address], [place] [address]- 2615 Mar, Controlled type 2 diabetes mellitus without complication, without long-term current use of insulin E11.9 [place] [id number], [place] [address]- 9314 Feb, Cervical radiculopathy M54.12 ; Acute cystitis without hematuria N30.00 and History of urethral stricture Z87.448 [facility] [address], [place] [address]- 8576 Feb, Controlled type 2 diabetes mellitus without complication, without long-term current use of insulin E11.9 [facility] [id number] [place] [address] 85426- 2105 Feb, [facility] [id number] [place] [address] 60910- 3782 Jan, Diabetes type 2, uncontrolled E11.65 [facility] [id number] [place] [address] 36886- 0070 Jan, [facility] [id number] [place] [address] 02403- 6462 Jan, Controlled type 2 diabetes mellitus without complication, without long-term current use of insulin E11.9 ; Chest wall pain R07.89 and Thoracic spine pain M54.6 [place] [id number] [place] [address] 00496- 8056 Dec, [facility] [id number] [place] [address] 62714- 8328 Dec, [facility] [id number] [place] [address] 13894- 4966 Nov, [facility] [id number] [place] [address] 67931- 3964 Nov, [facility] [id number] [place] [address] 03781 -5801 Nov, Trichomonas exposure Z20.2 [facility] [id number] [place] [address] 06669- 8661 Oct, [facility] [id number] [place] [address] 69047- 7442 Oct, [facility] [id number] [place] [address] 63669- 9188 Oct, [facility] [id number] [place] [address]- 6175 Oct, [facility] [address] [id number] [place] [address]- 4876 Sep, [facility] [place] [facility] [address] [id number] [place] [address]- 8768 Sep, [facility] [address] [id number] [place] [address]- 0737 Aug, [facility] [place] [facility] [address] [id number] [place] [address]- [address] Aug, [facility] [address] [id number] [place] [address]- 0524 Aug, [facility] [address] [id number] [place] [address]- [address] Aug, [facility] [address] [id number] [place] [address]- 8336 July, Diabetes type 2, controlled E11.[address] [facility] [address] [id number] [place] [address]- [address] July, [facility] [address] [facility] [id number] [place] [address]- [address] July, [facility] [address] [id number] [place] [address]- [address] July, [facility] [address] [id number] [place] [address]- 5756 July, [facility] [place] [facility] [address] [id number] [place] [address]- 5684 Jun, [facility] [place] [facility] [address] [id number] [place] [address]- 7763 Jun, [facility] [place] [facility] [address] [id number] [place] [address]- 9115 May, [facility] [place] [facility] [address] [id number], [place] [address]- 7906 May, [facility] [address] [facility] [id number] [place] [address]- 4397 May, [facility] [id number] [place] [address] 13386- 0076 May, Controlled type 2 diabetes mellitus without complication, without long-term current use of insulin E11.9 [facility] [address] [facility] [id number] [place] [address], [place] [address]- 1291 Apr, [facility] [address] [facility] [id number] [place] [address], [place] [address]- 2546 Apr, [facility] [id number] [place] [address], [place] [address]- 6546 Mar, [facility] [id number] [place] [address] 61558- 0700 Mar, [facility] [id number] [place] [address] 94123- 8861 Feb, [facility] [address], [place] [address]- 5571 Feb, [facility] [id number] [place] [address] 209206- 8468 Jan, [facility] [address], [place] [address]- 9411 Jan, [facility] [id number], [place] [address]- 9778 Jan, [facility] [address] [facility] [id number], [place] [address]- 2050 Dec, [facility] [address] [facility] [id number] [place] [address], [place] [address]- 0476 Dec, [facility] [id number], [place] [address]- 4088 Dec, [facility] [id number] [place] [address] 23739- 0988 29 Nov, 2015 Diabetes type 2, uncontrolled E11.65 [facility] [address], [place] [address]- 0018 14 Nov, 2015 [facility] [id number] [place] [address] 08387- 5463 09 Nov, 2015 [facility] [address] [place] [address] 63219- 0144 Oct, [facility] [id number] [place] [address] 38500- 5633 Oct, [facility] [id number] [place] [address] 41766- 0965 Sep, Controlled type 2 diabetes mellitus without complication, without long-term current use of insulin E11.9 [facility] [id number] [place] [address] 56281- 9850 Sep, [facility] [id number] [place] [address] 15082- 3649 Sep, [facility] [address] [place] [address] 81382- 2128 Sep, [facility] [id number] [place] [address] 11489- 7715 Sep, [facility] [id number] [place] [address] 86135- 6906 Aug, Diabetes type 2, controlled E11.9 ; Anxiety F41.9 ; Carpal tunnel syndrome, left upper limb G56.02 and Carpal tunnel syndrome, right upper limb G56.01 [facility] [address], [place] [address]- 7429 Aug, Urethritis N34.2 [facility] [id number] [place] [address] 51638- 6941 Aug, [facility] [id number] [place] [address] 46882- 5927 July, Genital warts A63.0 [facility] [address] [facility] [id number], [place] [address]- 8226 July, [facility] [address] [facility] [id number], [place] [address] 2546 July, Genital warts A63.0 [facility] [address], [place] [address]- 3996 July, Anxiety F41.9 [facility] [id number] [place] [address] 22518 2546 Jun, Genital warts A63.0 [facility] [id number] [place] [address] 74428- 2076 Jun, Anxiety F41.9 [facility] [id number] [place] [address] 06286- 6515 May, Genital warts A63.0 and Diabetes type 2, uncontrolled E11.65 [facility] [address], [place] [address]- 4666 May, [facility] [id number] [place] [address] 39078- 9687 May, [facility] [address], [place] [address]- 7961 Apr, [facility] [address], [place] [address] 2546 Apr, [facility] [address], [place] [address]- 2547 Apr, Diabetes type 2, controlled E11.9 [facility] [address], [place] [address] 2546 Apr, Genital warts A63.0 [facility] [address], [place] [address]- 2546 Apr, [facility] [id number] [place] [address] 08861- 2799 Apr, Diabetes type 2, uncontrolled E11.65 and Genital warts A63.0 [facility] [id number] [place] [address] 05931- 6823 Apr, [facility] [id number] [place] [address] 53126- 3732 Mar, [facility] [id number] [place] [address] 31888- 6842 Mar, [facility] [id number] [place] [address] 55663- 3408 Mar, Family history of diabetes mellitus V18.0 and Weight loss R63.4 [facility] [id number] [place] [address] 68880- 4357 Mar, Genital warts A63.0 and Family history of diabetes mellitus V18.0 [facility] [id number] [place] [address] 95782- 5966 Feb, [facility] [id number] [place] [address] 06470- 1099 Jan, [facility] [address] [place] [address] 77312- 2800 Jan, Perianal venereal warts A63.0 [facility] [address] [place] [address] 31848- 1791 Jan, Urethritis N34.2 and Anxiety F41.9 [facility] [address] [place] [address] 45884- 8533 Jan, [facility] [id number] [place] [address] 27935- 3666 Jan, Urinary tract infection, site unspecified N39.0 [facility] [id number] [place] [address] 73037- 2449 Jan, [facility] [id number] [place] [address] 35454- 1135 Dec, [place] [id number] [place] [address] 54656- 7036 Dec, HPV (human papilloma virus) anogenital infection A63.0 ; Anxiety F41.9 and Gastroesophageal reflux disease without esophagitis K21.9 [place] [id number] [place] [address] 575109- 4091 Sep, Blood in stool 578.1 [place] [address] 26543- 2923 Aug, Blood in stool 578.[address] 955401- 1839 Aug, Anxiety 300.00 and Blood in stool 578.[address] 96001- 7576 July, [address] 67533- 4483 July, Family history of diabetes mellitus V18.[address] 54092- 4497 July, Family history of diabetes mellitus V18.0 ; Family history of thyroid disease V18.19 ; Polyuria 788.42 ; Polydipsia 783.5 ; Alopecia 704.00 and Fatigue 780.79 [place] [id number] [place] [address] 25293- 2785 Jun, [place] [id number] [place] [address] 00780- 4237 Jun, [address] [id number]- 3251 Mar, [place] [id number] [place] [address] 13434- 5112 Mar, [address] 94912- 3598 Mar, [facility] [place] [facility] [address] [id number] [place] [address]- 2885 Mar, [facility] [place] [facility] [address] [id number] [place] [address]- 4556 Mar, [facility] [place] [facility] [address] [id number] [place] [address]- 4941 Mar, [facility] [place] [facility] [address] [id number] [place] [address]- 6240 Mar, [facility] [place] [facility] [address] [id number] [place] [address]- 3186 Mar, [facility] [place] [facility] [address] [id number] [place] [address]- 3947 Mar, [facility] [place] [facility] [address] [id number] [place] [address]- 2992 Mar, [facility] [place] [facility] [address] [id number] [place] [address]- 2436 Feb, [facility] [place] [facility] [address] [id number], [place] [address]- 2447 Feb, [facility] [place] [facility] [address] [id number] [place] [address]- 1819 Jan, [facility] [place] [facility] [address] [id number], [place] [address]- 4072 Jan, [facility] [place] [facility] [address] [id number], [place] [address]- 0979 Jan, [facility] [place] [facility] [address] [id number], [place] [address]- 6420 Jan, [facility] [place] [facility] [address] [id number], [place] [address]- 4542 Dec, [facility] [place] [facility] [address] [id number] [place] [address]- 9247 Dec, [facility] [place] [facility] [address] [id number] [place] [address]- 1001 Nov, [facility] [place] [facility] [address] [id number] [place] [address]- 5702 Nov, [facility] [place] [facility] [address] [id number] [place] [address]- 8122 Oct, [facility] [place] [facility] [address] [id number] [place] [address]- 3344 Oct, [facility] [place] [facility] [address] [id number] [place] [address]- 9783 Oct, [facility] [place] [facility] [address] [id number] [place] [address]- 2040 Oct, [facility] [place] [facility] [address] [id number] [place] [address]- 0755 Oct, [facility] [place] [facility] [address] [id number] [place] [address]- 4538 Oct, [facility] [place] [facility] [address] [id number] [place] [address]- 2892 Oct, [facility] [place] [facility] [address] [id number] [place] [address]- 3411 Oct, [facility] [place] [facility] [address] [id number] [place] [address]- 9997 Sep, [facility] [place] [facility] [address] [id number] [place] [address]- 9476 Sep, [facility] [place] [facility] [address] [id number] [place] [address]- 7583 Sep, [facility] [place] [facility] [address] [id number] [place] [address]- 3281 Sep, [facility] [place] [facility] [address] [id number] [place] [address]- 3342 Aug, [facility] [place] [facility] [address] [id number] [place] [address]- 2116 Aug, [facility] [place] [facility] [address] [id number] [place] [address]- 7469 Aug, [facility] [place] [facility] [address] [id number] [place] [address]- 2083 Aug, [facility] [place] [facility] [address] [id number] [place] [address]- 0223 July, [facility] [place] [facility] [address] [id number] [place] [address]- 5111 July, [facility] [place] [facility] [address] [id number] [place] [address]- 1100 July, [facility] [place] [facility] [address] [id number] [place] [address]- 8550 July, [facility] [place] [facility] [address] [id number] [place] [address]- 2823 July, [facility] [place] [facility] [address] [id number] [place] [address]- 8210 July, [facility] [place] [facility] [address] [id number] [place] [address]- 6522 Jun, [facility] [place] [facility] [address] [id number] [place] [address]- 4536 Jun, [facility] [place] [facility] [address] [id number] [place] [address]- 5482 Jun, [facility] [place] [facility] [address] [id number] [place] [address]- 2264 15 Jun, 2013 [facility] [place] [facility] [address] [id number] [place] [address]- 8794 Jun, [facility] [place] [facility] [address] [id number] [place] [address]- 0871 Jun, [facility] [place] [facility] [address] [id number] [place] [address]- 9359 Jun, [facility] [place] [facility] [address] [id number] [place] [address]- 6141 14 Jun, 2013 [facility] [place] [facility] [address] [id number] [place] [address]- 8105 May, [facility] [place] [facility] [address] [id number] [place] [address]- 0319 May, [facility] [place] [facility] [address] [id number] [place] [address]- 9199 May, [facility] [place] [facility] [address] [id number] [place] [address]- 9395 Apr, [facility] [place] [facility] [address] [id number] [place] [address]- 3357 Apr, [facility] [place] [facility] [address] [id number] [place] [address]- 2599 Apr, [facility] [place] [facility] [address] [id number] [place] [address]- 4671 Apr, [facility] [place] [facility] [address] [id number] [place] [address]- 2439 Mar, [facility] [place] [facility] [address] [id number] [place] [address]- 9707 Mar, [facility] [place] [facility] [address] [id number] [place] [address]- 5640 Mar, [facility] [place] [facility] [address] [id number] [place] [address]- 3532 Mar, [facility] [place] [facility] [address] [id number] [place] [address]- 6199 Mar, [facility] [place] [facility] [address] [id number] [place] [address]- 2860 Mar, [facility] [place] [facility] [address] [id number] [place] [address]- 1415 Feb, [facility] [place] [facility] [address] [id number] [place] [address]- 7398 Feb, [facility] [place] [facility] [address] [id number] [place] [address]- 3363 Jan, [facility] [place] [facility] [address] [id number] [place] [address]- 7654 Jan, [facility] [place] [facility] [address] [id number] [place] [address]- 9094 Jan, [facility] [place] [facility] [address] [id number] [place] [address]- 0322 Jan, [facility] [place] [facility] [address] [id number] [place] [address]- 6006 Jan, [facility] [place] [facility] [address] [id number] [place] [address]- 8990 Jan, [facility] [place] [facility] [address] [id number] [place] [address]- 9089 Jan, [facility] [place] [facility] [address] [id number] [place] [address]- 3367 Dec, [facility] [place] [facility] [address] [id number] [place] [address]- 4527 Dec, [facility] [place] [facility] [address] [id number] [place] [address]- 7517 Nov, [facility] [place] [facility] [address] [id number] [place] [address] Nov, [facility] [place] [facility] [address] [id number] [place] [address] Nov, [facility] [place] [facility] [address] [id number] [place] [address] Oct, [facility] [place] [facility] [address] [id number] [place] [address] Oct, [facility] [place] [facility] [address] [id number] [place] [address] Oct, [facility] [place] [facility] [address] [id number], [place] [address] Oct, [facility] [address] [id number] [place] [address] Sep, [facility] [address] [id number], [place] [address] Sep, [facility] [address] [facility] [id number] [place] [address] Aug, [facility] [address] [id number], [place] [address] Aug, [facility] [address] [id number] [place] [address] Aug, [facility] [address] [facility] [id number] [place] [address] Aug, [facility] [address] [facility] [id number], [place] [address] July, [facility] [address] [facility] [id number] [place] [address] July, [facility] [address] [facility] [id number], [place] [address] July, [facility] [address] [facility] [id number], [place] [address] July, [facility] [address] [facility] [id number], [place] [address] Jun, [facility] [address] [facility] [id number], [place] [address] Jun, [facility] [address] [facility] [id number], [place] [address] Feb, [facility] [address] [facility] [id number], [place] [address] Feb, [facility] [address] [facility] [id number], [place] [address] Mar, IMMUNIZATIONS No Known Immunizations SOCIAL HISTORY Never Assessed REASON FOR VISIT Controlled Med Refill 05/23/17 PLAN OF CARE VITAL SIGNS MEDICATIONS Medication Instructions Dosage Frequency Start Date End Date Duration Status Tramadol HCl 50 MG Orally 4 times a day 1 tablet as needed 6h May, 28 days Active RESULTS No Results PROCEDURES No Known [...]
--- OUTSIDE RECORDS SUMMARY | 2017-10-18 09:14 | XMS REPORT ---
Author Author MIRELLA MARIA Organization [facility] Address [address] [place] [address] Care Team Providers Care Plsql Developer Name Role Phone MIRELLA MARIA Unavailable PROBLEMS Type Condition ICD9-CM Code CSS97-AE Code Onset Dates Condition Status SNOMED Code Problem Mood disorder F39 Active 59966546 Problem Shoulder pain, right M25.511 Active 08407696 Problem Acquired hypothyroidism E03.9 Active 439257949 Problem Low back pain M54.5 Active 643969789 Problem Cervical radiculopathy M54.12 Active 04745037 Problem History of urethral stricture Z87.448 Active 868005054 Problem Diabetes type 2, uncontrolled E11.65 Active 226866233 Problem Hypertension, benign I10 Active 71323945 Problem Controlled type 2 diabetes mellitus without complication, without long -term current use of insulin E11.9 Active 214541895 Problem Diabetes type 2, controlled E11.9 Active 72990529 ALLERGIES No Information ENCOUNTERS Encounter Location Date Diagnosis [place] [id number] [place] [address] 85156- 1709 Sep, [place] [id number] [place] [address] 39636- 8419 Jun, Controlled type 2 diabetes mellitus without complication, without long-term current use of insulin E11.9 [facility] [id number] [place] [address] 31639- 6888 May, [place] [id number] [place] [address] 88142- 1455 16 May, 2017 Radiculopathy of cervical region M54.12 [place] [id number] [place] [address] 07529- 8558 14 May, 2017 Controlled type 2 diabetes mellitus without complication, without long-term current use of insulin E11.9 [place] [address] [address] 9085 May, [facility] [address] [place] [address] 72072- 0194 May, Controlled type 2 diabetes mellitus without complication, without long-term current use of insulin E11.9 [facility] [address] [address] 2696 May, Controlled type 2 diabetes mellitus without complication, without long-term current use of insulin E11.9 [facility] [address] [address] 6904 May, Controlled type 2 diabetes mellitus without complication, without long-term current use of insulin E11.9 [place] [address] [address]- 5337 Apr, [place] [id number] [place] [address] 32388- 3816 Apr, Controlled type 2 diabetes mellitus without complication, without long-term current use of insulin E11.9 [place] [address] [address]- 2885 Apr, [facility] [address] [address]- 4417 Apr, Controlled type 2 diabetes mellitus without complication, without long-term current use of insulin E11.9 [place] [address] [address]- 7180 Mar, [facility] [address] [address]- 4190 Mar, Radiculopathy of cervical region M54.12 [facility] [address] [address]- 7521 Mar, Controlled type 2 diabetes mellitus without complication, without long-term current use of insulin E11.9 [place] [address] [address]- 3794 Feb, Cervical radiculopathy M54.12 ; Acute cystitis without hematuria N30.00 and History of urethral stricture Z87.448 [facility] [id number] [place] [address] 63558- 5370 Feb, Controlled type 2 diabetes mellitus without complication, without long-term current use of insulin E11.9 [place] [id number] [place] [address] 86095- 2735 Feb, [facility] [id number] [place] [address] 79508- 9350 Jan, Diabetes type 2, uncontrolled E11.65 [place] [id number] [place] [address] 52101- 2983 Jan, [place] [id number] [place] [address] 11237- 0928 Jan, Controlled type 2 diabetes mellitus without complication, without long-term current use of insulin E11.9 ; Chest wall pain R07.89 and Thoracic spine pain M54.6 [place] [id number] [place] [address] 23251- 7371 Dec, [facility] [id number] [place] [address] 09345- 5459 Dec, [facility] [id number] [place] [address] 06079- 6212 Nov, [facility] [id number] [place] [address] 16741- 1563 Nov, [facility] [id number] [place] [address] 87942 -3896 Nov, Trichomonas exposure Z20.2 [facility] [id number] [place] [address] 81532- 0454 Oct, [facility] [id number] [place] [address] 33419- 2331 Oct, [facility] [id number] [address]- 0739 Oct, [facility] [address] [id number] [place] [address]- 1802 Oct, [facility] [address] [id number] [place] [address]- 6139 Sep, [facility] [address] [id number] [place] [address]- 1404 Sep, [facility] [address] [id number] [place] [address]- 1111 Aug, [facility] [address] [id number] [place] [address]- 7633 Aug, [facility] [address] [id number] [place] [address]- 8538 Aug, [facility] [address] [id number] [place] [address]- 6807 Aug, [facility] [address] [facility] [id number] [place] [address]- 9785 July, Diabetes type 2, controlled E11.9 [facility] [address] [address]- 4271 July, [facility] [address] [facility] [id number] [place] [address]- 4890 July, [facility] [address] [id number] [place] [address]- 1096 July, [facility] [address] [id number] [place] [address]- 1048 July, [facility] [address] [id number] [place] [address]- 7073 Jun, [facility] [address] [id number] [place] [address]- 9660 Jun, [facility] [address] [id number] [address]- 3826 May, [facility] [address] [facility] [id number] [place] [address]- 1045 May, [facility] [address] [facility] [id number] [address]- 9276 May, [facility] [address] [facility] [id number] [place] [address] 2548 May, Controlled type 2 diabetes mellitus without complication, without long-term current use of insulin E11.9 [facility] [address] [id number] [place] [address]- 2732 Apr, [facility] [address] [facility] [id number] [place] [address], [place] [address]- 7046 Apr, [facility] [id number] [address]- 9148 Mar, [facility] [address] [facility] [id number] [place] [address] 97638- 5703 Mar, [facility] [address] [facility] [id number] [place] [address]- 9629 Feb, [facility] [id number] [address]- 1896 Feb, [facility] [id number] [address]- 5694 Jan, [facility] [address] [facility] [id number] [address]- 8441 Jan, [facility] [address] [facility] [id number] [place] [address]- 2386 Jan, [facility] [address] [facility] [id number] [place] [address]- 2015 Dec, [facility] [address] [facility] [id number] [place] [address]- 1140 Dec, [facility] [address] [facility] [id number] [place] [address] 40496- 8685 Dec, [facility] [address] [address]- 7110 29 Nov, 2015 Diabetes type 2, uncontrolled E11.65 [facility] [address] [address]- 1099 14 Nov, 2015 [facility] [id number] [place] [address] 93182- 2104 Nov, [facility] [id number] [place] [address] 70681- 7681 Oct, [facility] [id number] [place] [address] 40855- 2443 Oct, [facility] [id number] [place] [address] 74724- 4969 Sep, Controlled type 2 diabetes mellitus without complication, without long-term current use of insulin E11.9 [facility] [id number] [place] [address] 14469- 4141 Sep, [facility] [id number] [place] [address] 68057- 0623 Sep, [facility] [id number] [place] [address] 76286- 5463 Sep, [facility] [id number] [place] [address] 50284- 8201 Sep, [facility] [id number] [place] [address] 14170- 6218 Aug, Diabetes type 2, controlled E11.9 ; Anxiety F41.9 ; Carpal tunnel syndrome, left upper limb G56.02 and Carpal tunnel syndrome, right upper limb G56.01 [facility] [id number] [place] [address] 75012- 1140 Aug, Urethritis N34.2 [facility] [id number] [place] [address] 86666- 5233 Aug, [facility] [address] [facility] [id number] [address]- 0797 July, Genital warts A63.0 [facility] [address] [facility] [id number] [address]- 5336 July, [facility] [address] [address]- 8966 July, Genital warts A63.0 [facility] [id number] [place] [address] 47260- 1342 July, Anxiety F41.9 [facility] [id number] [place] [address] 90100- 0982 Jun, Genital warts A63.0 [facility] [id number] [place] [address] 94977- 1217 Jun, Anxiety F41.9 [facility] [id number] [place] [address] 89038- 0596 May, Genital warts A63.0 and Diabetes type 2, uncontrolled E11.65 [facility] [address] [address]- 7699 May, [facility] [address] [address]- 6537 May, [facility] [address] [address]- 9490 Apr, [facility] [address] [address]- 2546 Apr, [facility] [id number] [place] [address] 43812- 6122 Apr, Diabetes type 2, controlled E11.9 [facility] [address] [address]- 2546 Apr, Genital warts A63.0 [facility] [id number] [place] [address] 48472- 6533 Apr, [facility] [id number] [place] [address] 87410- 9714 Apr, Diabetes type 2, uncontrolled E11.65 and Genital warts A63.0 [facility] [id number] [place] [address] 90166- 9426 Apr, [facility] [id number] [place] [address] 80903- 3711 Mar, [facility] [id number] [place] [address] 49551- 6690 Mar, [facility] [id number] [place] [address] 29567- 8181 Mar, Family history of diabetes mellitus V18.0 and Weight loss R63.4 [facility] [id number] [place] [address] 42696- 8703 Mar, Genital warts A63.0 and Family history of diabetes mellitus V18.0 [facility] [id number] [place] [address] 02381- 6745 Feb, [facility] [id number] [place] [address] 11586- 4675 Jan, [facility] [id number] [place] [address] 71542- 8317 Jan, Perianal venereal warts A63.0 [facility] [id number] [place] [address] 19386- 6366 Jan, Urethritis N34.2 and Anxiety F41.9 [facility] [id number] [place] [address] 74959- 6272 Jan, [facility] [id number] [place] [address] 04393- 2374 Jan, Urinary tract infection, site unspecified N39.0 [facility] [id number] [place] [address] 29322- 7738 Jan, [place] [address] 14901- 7336 Dec, [place] [address] 10564- 8062 Dec, HPV (human papilloma virus) anogenital infection A63.0 ; Anxiety F41.9 and Gastroesophageal reflux disease without esophagitis K21.9 [place] [address] 08089- 4664 Sep, Blood in stool 578.1 [place] [address] 71845- 4640 Aug, Blood in stool 578.1 [place] [address] 99549- 9283 Aug, Anxiety 300.00 and Blood in stool 578.1 [place] [address] 80421- 6708 July, [place] [address] 28693- 6661 July, Family history of diabetes mellitus V18.0 [place] [id number] [place] [address] 75209- 3651 July, Family history of diabetes mellitus V18.0 ; Family history of thyroid disease V18.19 ; Polyuria 788.42 ; Polydipsia 783.5 ; Alopecia 704.00 and Fatigue 780.79 [place] [id number] [place] [address] 45052- 7675 Jun, [place] [address] 26558- 2447 Jun, [place] [address] 76762- 6808 Mar, [place] [address] 13381- 1377 Mar, [facility] [place] [facility] [address] [id number] [place] [address]- 2471 Mar, [facility] [place] [facility] [address] [id number] [place] [address]- 9688 Mar, [facility] [place] [facility] [address] [id number] [place] [address]- 3262 Mar, [facility] [place] [facility] [address] [id number] [place] [address]- 6247 Mar, [facility] [place] [facility] [address] [id number] [place] [address]- 2980 Mar, [facility] [place] [facility] [address] [id number] [place] [address]- 3784 Mar, [facility] [place] [facility] [address] [id number] [place] [address]- 6878 Mar, [facility] [place] [facility] [address] [id number] [place] [address]- 9278 Mar, [facility] [place] [facility] [address] [id number] [place] [address]- 3042 Feb, [facility] [place] [facility] [address] [id number] [place] [address]- 6124 Feb, [facility] [place] [facility] [address] [id number] [address]- 0323 Jan, [facility] [place] [facility] [address] [id number] [place] [address]- 9553 Jan, [facility] [place] [facility] [address] [id number] [place] [address]- 5284 Jan, [facility] [place] [facility] [address] [id number] [place] [address]- 2603 Jan, [facility] [place] [facility] [address] [id number] [place] [address]- 2425 Dec, [facility] [place] [facility] [address] [id number] [place] [address]- 0856 Dec, [facility] [place] [facility] [address] [id number] [place] [address]- 3188 Nov, [facility] [place] [facility] [address] [id number] [place] [address]- 5924 Nov, [facility] [place] [facility] [address] [id number] [place] [address]- 0665 Oct, [facility] [place] [facility] [address] [id number] [place] [address]- 4016 Oct, [facility] [place] [facility] [address] [id number] [place] [address]- 7323 Oct, [facility] [place] [facility] [address] [id number] [place] [address]- 3395 Oct, [facility] [place] [facility] [address] [id number] [place] [address]- 2417 Oct, [facility] [place] [facility] [address] [id number] [place] [address]- 5348 Oct, [facility] [place] [facility] [address] [id number] [place] [address]- 8686 Oct, [facility] [place] [facility] [address] [id number] [place] [address]- 6357 Oct, [facility] [place] [facility] [address] [id number] [place] [address]- 6546 Sep, [facility] [place] [facility] [address] [id number] [place] [address]- 2516 Sep, [facility] [place] [facility] [address] [id number] [place] [address]- 2090 Sep, [facility] [place] [facility] [address] [id number] [place] [address]- 6140 Sep, [facility] [place] [facility] [address] [id number] [place] [address]- 5970 Aug, [facility] [place] [facility] [address] [id number] [place] [address]- 2604 Aug, [facility] [place] [facility] [address] [id number] [place] [address]- 2871 Aug, [facility] [place] [facility] [address] [id number] [place] [address]- 7073 Aug, [facility] [place] [facility] [address] [id number] [place] [address]- 3639 July, [facility] [place] [facility] [address] [id number] [place] [address]- 2983 July, [facility] [place] [facility] [address] [id number] [place] [address]- 1823 July, [facility] [place] [facility] [address] [id number] [place] [address]- 8734 July, [facility] [place] [facility] [address] [id number] [place] [address]- 9302 July, [facility] [place] [facility] [address] [id number] [place] [address]- 3162 July, [facility] [place] [facility] [address] [id number] [place] [address]- 8066 Jun, [facility] [place] [facility] [address] [id number] [place] [address]- 0043 Jun, [facility] [place] [facility] [address] [id number] [place] [address]- 7332 Jun, [facility] [place] [facility] [address] [id number] [place] [address]- 5857 Jun, [facility] [place] [facility] [address] [id number] [place] [address]- 9931 Jun, [facility] [place] [facility] [address] [id number] [place] [address]- 7744 Jun, [facility] [place] [facility] [address] [id number] [place] [address]- 4440 14 Jun, 2013 [facility] [place] [facility] [address] [id number] [place] [address]- 3706 14 Jun, 2013 [facility] [place] [facility] [address] [id number] [place] [address]- 1064 19 May, 2013 [facility] [place] [facility] [address] [id number] [place] [address]- 4391 May, [facility] [place] [facility] [address] [id number] [place] [address]- 4472 18 May, 2013 [facility] [place] [facility] [address] [id number] [place] [address]- 8607 Apr, [facility] [place] [facility] [address] [id number] [place] [address]- 5534 Apr, [facility] [place] [facility] [address] [id number] [place] [address]- 2490 Apr, [facility] [place] [facility] [address] [id number] [place] [address]- 2944 Apr, [facility] [place] [facility] [address] [id number] [place] [address]- 3380 Mar, [facility] [place] [facility] [address] [id number] [place] [address]- 3721 Mar, [facility] [place] [facility] [address] [id number] [place] [address]- 1113 Mar, [facility] [place] [facility] [address] [id number] [place] [address]- 0482 Mar, [facility] [place] [facility] [address] [id number] [place] [address]- 2147 Mar, [facility] [place] [facility] [address] [id number] [place] [address] Mar, [facility] [place] [facility] [address] [id number] [place] [address] Feb, [facility] [place] [facility] [address] [id number] [place] [address] Feb, [facility] [place] [facility] [address] [id number] [place] [address] Jan, [facility] [place] [facility] [address] [id number] [place] [address] Jan, [facility] [place] [facility] [address] [id number] [place] [address] Jan, [facility] [place] [facility] [address] [id number] [place] [address] Jan, [facility] [place] [facility] [address] [id number] [place] [address] Jan, [facility] [place] [facility] [address] [id number] [place] [address] Jan, [facility] [place] [facility] [address] [id number] [place] [address] Jan, [facility] [place] [facility] [address] [id number] [place] [address] Dec, [facility] [place] [facility] [address] [id number] [place] [address] Dec, [facility] [place] [facility] [address] [id number] [place] [address] Nov, [facility] [place] [facility] [address] [id number] [place] [address] Nov, [facility] [place] [facility] [address] [id number] [place] [address] Nov, [facility] [place] [facility] [address] [id number] [place] [address] Oct, [facility] [place] [facility] [address] [id number] [place] [address] Oct, [facility] [place] [facility] [address] [id number] [place] [address] Oct, [facility] [address] [id number] [place] [address] Oct, [facility] [place] [facility] [address] [id number] [place] [address] Sep, [facility] [place] [facility] [address] [id number] [place] [address] Sep, [facility] [place] [facility] [address] [id number] [place] [address] Aug, [facility] [place] [facility] [address] [id number] [place] [address] Aug, [facility] [place] [facility] [address] [id number] [place] [address] Aug, [facility] [place] [facility] [address] [id number] [place] [address] Aug, [facility] [place] [facility] [address] [id number] [place] [address] July, [facility] [address] [id number] [place] [address] July, [facility] [place] [facility] [address] [id number] [place] [address] July, [facility] [address] [id number] [place] [address] July, [facility] [place] [facility] [address] [id number] [place] [address] Jun, [facility] [place] [facility] [address] [id number] [place] [address] Jun, [facility] [place] [facility] [address] [id number] [place] [address] Feb, [facility] [place] [facility] [address] [id number] [place] [address] Feb, [facility] [place] [facility] [address] [id number] [place] [address] Mar, IMMUNIZATIONS No Known Immunizations SOCIAL HISTORY [...]
[2017-10-18] MEDS ORDERED: RX-MUPIROCIN (BACTROBAN) 2% OINT 22 GM TUBE TOP STA (09:15)
[2017-10-18] MEDS ORDERED: IBUPROFEN 800 MG (MOTRIN) TAB PO STA (09:15)
[2017-10-18] MEDS ORDERED: TRIM/SULFAMETH 160/800 (SEPTRA DS) TAB PO STA (09:15)
--- OUTSIDE RECORDS SUMMARY | 2017-10-18 09:15 | XMS REPORT ---
Author Author MIRELLA MARIA [facility] Address [address] [place] [address] Care Team Providers Care Chain Saw Operator Name Role Phone MIRELLA MARIA Unavailable PROBLEMS Type Condition ICD9-CM Code [id number] Code Onset Dates Condition Status SNOMED Code Problem Mood disorder F39 Active 54680590 Problem Low back pain M54.5 Active 172052056 Problem Controlled type 2 diabetes mellitus without complication, without long -term current use of insulin E11.9 Active 838236867 Problem Diabetes type 2, controlled E11.9 Active 23195687 Problem Shoulder pain, right M25.511 Active 44151653 Problem Acquired hypothyroidism E03.9 Active 470383110 Problem Diabetes type 2, uncontrolled E11.65 Active 091726699 Problem Hypertension, benign I10 Active 50852145 ALLERGIES Unknown Allergies SOCIAL HISTORY No smoking Hx information available PLAN OF CARE VITAL SIGNS MEDICATIONS Medication Instructions Dosage Frequency Start Date End Date Duration Status Ativan 1 MG Orally Twice a day 1 tablet as needed 12h Dec, 28 days Active RESULTS No Results PROCEDURES No Known procedures IMMUNIZATIONS No Known Immunizations
--- OUTSIDE RECORDS SUMMARY | 2017-10-18 09:15 | XMS REPORT ---
Author Author JODY LACKEY [facility] Address [address] [place] [address] Care Team Providers Care Senior Administrative Associate Name Role Phone JODY LACKEY Unavailable PROBLEMS Type Condition ICD9-CM Code IGA01-TR Code Onset Dates Condition Status SNOMED Code Problem Mood disorder F39 Active 57041404 Problem Shoulder pain, right M25.511 Active 49157553 Problem Acquired hypothyroidism E03.9 Active 681473922 Problem Low back pain M54.5 Active 399616877 Problem Cervical radiculopathy M54.12 Active 08487036 Problem History of urethral stricture Z87.448 Active 485145868 Problem Diabetes type 2, uncontrolled E11.65 Active 595103817 Problem Hypertension, benign I10 Active 76026608 Problem Controlled type 2 diabetes mellitus without complication, without long -term current use of insulin E11.9 Active 082562996 Problem Diabetes type 2, controlled E11.9 Active 49819658 ALLERGIES No Known Allergies ENCOUNTERS Encounter Location Date Diagnosis [place] [id number] [place] [address] 67568- 7560 Jun, Controlled type 2 diabetes mellitus without complication, without long-term current use of insulin E11.9 [place] [id number] [place] [address] 14155- 4824 19 May, 2017 [place] [id number] [place] [address] 23387- 3756 16 May, 2017 Radiculopathy of cervical region M54.12 [place] [id number] [place] [address] 38480- 9963 14 May, 2017 Controlled type 2 diabetes mellitus without complication, without long-term current use of insulin E11.9 [place] [id number] [place] [address] 39942- 4289 12 May, 2017 [facility] [address], [place] [address] 9977 May, Controlled type 2 diabetes mellitus without complication, without long-term current use of insulin E11.9 [facility] [address], [place] [address] 3735 May, Controlled type 2 diabetes mellitus without complication, without long-term current use of insulin E11.9 [place] [id number] [place] [address] 82044- 8840 May, Controlled type 2 diabetes mellitus without complication, without long-term current use of insulin E11.9 [place] [id number] [place] [address] 66511- 3468 Apr, [place] [id number] [place] [address] 94352- 3734 Apr, Controlled type 2 diabetes mellitus without complication, without long-term current use of insulin E11.9 [place] [address], [place] [address] 2690 Apr, [facility] [id number] [place] [address] 91934- 9254 Apr, Controlled type 2 diabetes mellitus without complication, without long-term current use of insulin E11.9 [place] [address], [place] [address] 0281 Mar, [place] [id number] [place] [address] 98991- 8907 Mar, Radiculopathy of cervical region M54.12 [place] [id number] [place] [address] 70482- 3088 Mar, Controlled type 2 diabetes mellitus without complication, without long-term current use of insulin E11.9 [place] [address], [place] [address] 0822 Feb, Cervical radiculopathy M54.12 ; Acute cystitis without hematuria N30.00 and History of urethral stricture Z87.448 [facility] [id number] [place] [address] 02424- 6231 Feb, Controlled type 2 diabetes mellitus without complication, without long-term current use of insulin E11.9 [facility] [id number] [place] [address] 35055- 2782 Feb, [facility] [address] 37681- 9651 Jan, Diabetes type 2, uncontrolled E11.65 [facility] [id number] [place] [address] 05233- 8235 Jan, [facility] [address] 19108- 2654 Jan, Controlled type 2 diabetes mellitus without complication, without long-term current use of insulin E11.9 ; Chest wall pain R07.89 and Thoracic spine pain M54.6 [place] [id number] [place] [address] 11979- 4822 Dec, [facility] [id number] [place] [address] 86071- 0316 Dec, [facility] [id number] [place] [address] 67186- 7088 Nov, [facility] [id number] [place] [address] 77808- 4385 Nov, [facility] [id number] [place] [address] 15878 -0845 Nov, Trichomonas exposure Z20.2 [facility] [id number] [place] [address] 04168- 1505 Oct, [facility] [id number] [place] [address] 71632- 2200 Oct, [facility] [id number] [place] [address] 16878- 8367 Oct, [facility] [address] [id number] [place] [address]- 1016 Oct, [facility] [place] [facility] [address] [id number] [place] [address]- 3529 Sep, [facility] [place] [facility] [address] [id number] [place] [address]- 3757 Sep, [facility] [place] [facility] [address] [id number] [place] [address]- 7767 Aug, [facility] [place] [facility] [address] [id number] [place] [address]- 7225 Aug, [facility] [place] [facility] [address] [id number] [place] [address]- 5510 Aug, [facility] [place] [facility] [address] [id number] [place] [address]- 9374 Aug, [facility] [place] [facility] [address] [id number] [place] [address]- 6075 July, Diabetes type 2, controlled E11.9 [facility] [place] [facility] [address] [id number] [place] [address]- 7156 July, [facility] [place] [facility] [address] [id number] [place] [address]- 2984 July, [facility] [place] [facility] [address] [id number] [place] [address]- 9995 July, [facility] [place] [facility] [address] [id number] [place] [address]- 6177 July, [facility] [place] [facility] [address] [id number] [place] [address]- 8552 Jun, [facility] [place] [facility] [address] [id number] [place] [address]- 1290 Jun, [facility] [place] [facility] [address] [id number] [place] [address]- 9986 May, [facility] [place] [facility] [address] [id number], [place] [address]- 5631 May, [facility] [address] [facility] [id number] [address]- 4089 May, [facility] [address], [place] [address]- 9906 May, Controlled type 2 diabetes mellitus without complication, without long-term current use of insulin E11.9 [facility] [address] [place] [address]- 9828 Apr, [facility] [id number] [place] [address]- 7321 Apr, [facility] [id number] [place] [address] 38114- 5297 Mar, [facility] [address], [place] [address]- 4369 Mar, [facility] [address], [place] [address]- 8784 Feb, [facility] [id number], [place] [address]- 5988 Feb, [facility] [address], [place] [address]- 4475 Jan, [facility] [address], [place] [address]- 1981 Jan, [facility] [id number], [place] [address]- 5184 Jan, [facility] [id number] [place] [address]- 0131 Dec, [facility] [address] [facility] [id number], [place] [address]- 5046 Dec, [facility] [id number], [place] [address]- 2544 Dec, [facility] [id number], [place] [address]- 9365 29 Nov, 2015 Diabetes type 2, uncontrolled E11.65 [facility] [id number], [place] [address]- 9024 14 Nov, 2015 [facility] [id number] [place] [address] 64496- 3128 Nov, [facility] [id number] [place] [address] 20074- 9112 Oct, [facility] [id number] [place] [address] 63646- 5114 Oct, [facility] [id number] [place] [address] 45554- 1351 Sep, Controlled type 2 diabetes mellitus without complication, without long-term current use of insulin E11.9 [facility] [id number] [place] [address] 13417- 5329 Sep, [facility] [id number] [place] [address] 70402- 7131 Sep, [facility] [id number] [place] [address] 73032- 4720 Sep, [facility] [id number] [place] [address] 64884- 0894 Sep, [facility] [address] [place] [address] 13591- 1188 Aug, Diabetes type 2, controlled E11.9 ; Anxiety F41.9 ; Carpal tunnel syndrome, left upper limb G56.02 and Carpal tunnel syndrome, right upper limb G56.01 [facility] [id number] [place] [address] 00894- 8784 Aug, Urethritis N34.2 [facility] [address], [place] [address]- 1128 Aug, [facility] [id number] [place] [address] 65980- 3510 July, Genital warts A63.0 [facility] [address] [facility] [id number] [place] [address]- 1366 July, [facility] [address] [facility] [id number], [place] [address] 2546 July, Genital warts A63.0 [facility] [address] [facility] [id number] [place] [address] 2546 July, Anxiety F41.9 [facility] [address] [facility] [id number] [place] [address] 2546 Jun, Genital warts A63.0 [facility] [address] [facility] [id number] [place] [address]- 8986 Jun, Anxiety F41.9 [facility] [id number] [place] [address]- 7226 May, Genital warts A63.0 and Diabetes type 2, uncontrolled E11.65 [facility] [address] [facility] [id number], [place] [address]- 0403 May, [facility] [address] [facility] [id number] [place] [address]- 4946 May, [facility] [address] [facility] [id number], [place] [address]- 6707 Apr, [facility] [address] [facility] [id number], [place] [address] 2546 Apr, [facility] [address] [facility] [id number], [place] [address]- 2546 Apr, Diabetes type 2, controlled E11.9 [facility] [address] [facility] [id number] [place] [address] 2546 Apr, Genital warts A63.0 [facility] [id number] [place] [address]- 2546 Apr, [facility] [address], [place] [address]- 8245 Apr, Diabetes type 2, uncontrolled E11.65 and Genital warts A63.0 [facility] [id number] [place] [address] 45703- 2833 Apr, [facility] [id number] [place] [address] 46841- 7195 Mar, [facility] [id number] [place] [address] 36748- 8218 Mar, [facility] [id number] [place] [address] 96094- 6823 Mar, Family history of diabetes mellitus V18.0 and Weight loss R63.4 [facility] [id number] [place] [address] 04787- 6573 Mar, Genital warts A63.0 and Family history of diabetes mellitus V18.0 [facility] [id number] [place] [address] 19759- 9471 Feb, [facility] [id number] [place] [address] 00800- 6904 Jan, [facility] [id number] [place] [address] 12447- 1916 Jan, Perianal venereal warts A63.0 [facility] [address] [place] [address] 49503- 8264 Jan, Urethritis N34.2 and Anxiety F41.9 [facility] [address] [place] [address] 03875- 1338 Jan, [facility] [id number] [place] [address] 85463- 4407 Jan, Urinary tract infection, site unspecified N39.0 [facility] [address] [place] [address] 35312- 2509 Jan, [facility] [id number] [place] [address] 00081- 6942 Dec, [place] [id number] [place] [address] 86201- 9036 Dec, HPV (human papilloma virus) anogenital infection A63.0 ; Anxiety F41.9 and Gastroesophageal reflux disease without esophagitis K21.[address] 87893- 5786 Sep, Blood in stool 578.1 [place] [address] 12865- 7113 Aug, Blood in stool 578.1 [place] [address] 58815- 6034 Aug, Anxiety 300.00 and Blood in stool 578.[address] 16110- 5455 July, [place] [id number] [place] [address] 88158- 4833 July, Family history of diabetes mellitus V18.0 [place] [id number] [place] [address] 94591- 7613 July, Family history of diabetes mellitus V18.0 ; Family history of thyroid disease V18.19 ; Polyuria 788.42 ; Polydipsia 783.5 ; Alopecia 704.00 and Fatigue 780.79 [place] [id number] [place] [address] 06283- 1346 Jun, [place] [id number] [place] [address] 10436- 4835 Jun, [place] [id number] [place] [address] [id number]- 2233 Mar, [place] [id number] [place] [address] 85405- 2895 Mar, [address] [place] [address]- 4104 Mar, [facility] [place] [facility] [address] [id number] [place] [address]- 1106 Mar, [facility] [place] [facility] [address] [id number] [place] [address]- 3751 Mar, [facility] [place] [facility] [address] [id number] [place] [address]- 0054 Mar, [facility] [place] [facility] [address] [id number] [place] [address]- 5973 Mar, [facility] [place] [facility] [address] [id number] [place] [address]- 0233 Mar, [facility] [place] [facility] [address] [id number] [place] [address]- 3892 Mar, [facility] [place] [facility] [address] [id number] [place] [address]- 8924 Mar, [facility] [place] [facility] [address] [id number] [place] [address]- 4662 Feb, [facility] [place] [facility] [address] [id number] [place] [address]- 6259 Feb, [facility] [place] [facility] [address] [facility] [id number] [place] [address]- 5775 Jan, [facility] [place] [facility] [address] [id number] [place] [address]- 7698 Jan, [facility] [place] [facility] [address] [id number] [place] [address]- 2107 Jan, [facility] [place] [facility] [address] [id number] [place] [address]- 3375 Jan, [facility] [place] [facility] [address] [id number] [place] [address]- 8663 Dec, [facility] [place] [facility] [address] [facility] [id number] [place] [address]- 4020 Dec, [facility] [place] [facility] [address] [id number] [place] [address]- 6992 Nov, [facility] [place] [facility] [address] [id number] [place] [address]- 0782 Nov, [facility] [place] [facility] [address] [id number] [place] [address]- 7633 Oct, [facility] [place] [facility] [address] [id number] [place] [address]- 0982 Oct, [facility] [place] [facility] [address] [id number] [place] [address]- 8395 Oct, [facility] [place] [facility] [address] [id number] [place] [address]- 9996 Oct, [facility] [place] [facility] [address] [id number] [place] [address]- 5449 Oct, [facility] [place] [facility] [address] [id number] [place] [address]- 8426 Oct, [facility] [place] [facility] [address] [id number] [place] [address]- 3986 Oct, [facility] [place] [facility] [address] [id number] [place] [address]- 1169 Oct, [facility] [place] [facility] [address] [id number] [place] [address]- 8229 Sep, [facility] [place] [facility] [address] [id number] [place] [address]- 9964 Sep, [facility] [place] [facility] [address] [id number] [place] [address]- 0469 Sep, [facility] [place] [facility] [address] [id number] [place] [address]- 5200 Sep, [facility] [place] [facility] [address] [id number] [place] [address]- 7840 Aug, [facility] [place] [facility] [address] [id number] [place] [address]- 6174 Aug, [facility] [place] [facility] [address] [id number] [place] [address]- 6630 Aug, [facility] [place] [facility] [address] [id number] [place] [address]- 4789 Aug, [facility] [place] [facility] [address] [id number] [place] [address]- 7022 July, [facility] [place] [facility] [address] [id number] [place] [address]- 2418 July, [facility] [place] [facility] [address] [id number] [place] [address]- 4176 July, [facility] [place] [facility] [address] [id number] [place] [address]- 0253 July, [facility] [place] [facility] [address] [id number] [place] [address]- 3874 July, [facility] [place] [facility] [address] [id number] [place] [address]- 0232 July, [facility] [place] [facility] [address] [id number] [place] [address]- 1495 Jun, [facility] [place] [facility] [address] [id number] [place] [address]- 4101 Jun, [facility] [place] [facility] [address] [id number] [place] [address]- 9985 15 Jun, 2013 [facility] [place] [facility] [address] [id number] [place] [address]- 9370 15 Jun, 2013 [facility] [place] [facility] [address] [id number] [place] [address]- 3772 Jun, [facility] [place] [facility] [address] [id number] [place] [address]- 0443 Jun, [facility] [place] [facility] [address] [id number] [place] [address]- 4690 Jun, [facility] [place] [facility] [address] [id number] [place] [address]- 0121 14 Jun, 2013 [facility] [place] [facility] [address] [id number] [place] [address]- 7936 May, [facility] [place] [facility] [address] [id number] [place] [address]- 8276 May, [facility] [place] [facility] [address] [id number] [place] [address]- 7806 May, [facility] [place] [facility] [address] [id number] [place] [address]- 2695 Apr, [facility] [place] [facility] [address] [id number] [place] [address]- 6518 Apr, [facility] [place] [facility] [address] [id number] [place] [address]- 3021 Apr, [facility] [place] [facility] [address] [id number] [place] [address]- 8218 Apr, [facility] [place] [facility] [address] [id number] [place] [address]- 5582 Mar, [facility] [place] [facility] [address] [id number] [place] [address]- 3099 Mar, [facility] [place] [facility] [address] [id number] [place] [address]- 8400 Mar, [facility] [place] [facility] [address] [id number] [place] [address]- 1287 Mar, [facility] [place] [facility] [address] [id number] [place] [address]- 3030 Mar, [facility] [place] [facility] [address] [id number] [place] 5934 Mar, [facility] [place] [facility] [address] [id number] [place] 1376 Feb, [facility] [place] [facility] [address] [id number] [place] [address]- 9449 Feb, [facility] [place] [facility] [address] [id number] [place] [address]- 1890 Jan, [facility] [place] [facility] [address] [id number] [place] [address]- 6087 Jan, [facility] [place] [facility] [address] [id number] [place] [address]- 9067 Jan, [facility] [place] [facility] [address] [id number] [place] [address]- 3308 Jan, [facility] [place] [facility] [address] [id number] [place] [address] Jan, [facility] [place] [facility] [address] [id number] [place] [address] Jan, [facility] [place] [facility] [address] [id number] [place] [address] Jan, [facility] [place] [facility] [address] [id number] [place] [address] Dec, [facility] [place] [facility] [address] [id number] [place] [address] Dec, [facility] [place] [facility] [address] [id number] [place] [address] Nov, [facility] [place] [facility] [address] [id number] [place] [address] Nov, [facility] [place] [facility] [address] [id number], [place] [address] Nov, [facility] [place] [facility] [address] [id number] [place] [address] Oct, [facility] [place] [facility] [address] [id number] [place] [address] Oct, [facility] [place] [facility] [address] [id number] [place] [address] Oct, [facility] [place] [facility] [address] [facility] [id number] [place] [address] Oct, [facility] [address] [id number] [place] [address] Sep, [facility] [address] [facility] [id number] [place] [address] Sep, [facility] [address] [facility] [id number] [place] [address] Aug, [facility] [address] [id number] [place] [address] Aug, [facility] [address] [id number] [place] [address] Aug, [facility] [address] [facility] [id number] [place] [address] Aug, [facility] [address] [id number] [place] [address] July, [facility] [address] [facility] [id number] [place] [address] July, [facility] [address] [id number] [place] [address] July, [facility] [address] [id number] [place] [address] July, [facility] [address] [id number] [place] [address] Jun, [facility] [address] [facility] [id number], [place] [address] Jun, [facility] [address] [facility] [id number], [place] [address] Feb, [facility] [address] [facility] [id number] [place] [address] Feb, [facility] [address] [id number], [place] [address] Mar, IMMUNIZATIONS No Known Immunizations SOCIAL HISTORY Never Assessed REASON FOR VISIT right shoulder pain and elbow pain to the point he cant always feel his hand. Pt has also come in today with trouble urinating-Vladimir PARIS PLAN OF CARE Activity Details Follow Up Regular appt Reason: VITAL SIGNS Height 68 in 2017-03-08 Weight 209.4 lbs 2017-03-08 Temperature 98.3 degrees Fahrenheit 2017-03-08 Heart Rate 96 bpm 2017-03-08 Respiratory Rate 18 2017-03-08 BMI 31.84 kg/m2 2017-03-08 Blood pressure systolic 134 mmHg 2017-03-08 Blood pressure diastolic 88 mmHg 2017-03-08 MEDICATIONS Medication Instructions Dosage Frequency Start Date End Date Duration Status Actos 45 MG Orally Once a day 1 tablet 24h 30 Active [place] Contour Next Test 1 In Vitro 2 times a day 1 test 12h 15 May, 2015 Active Bactrim DS 800-160 MG Orally Twice a day 1 tablet 12h Feb,Feb 07 days Active Tramadol HCl 50 MG Orally 4 times a day 1 tablet as needed 6h May, 28 days Active Neurontin 600 MG TAKE ONE CAPSULE BY MOUTH THREE TIMES DAILY 30 Active Metformin HCl 1000 MG TAKE ONE TABLET BY MOUTH TWICE DAILY WITH MEALS 30 Active Pantoprazole Sodium 40 mg Orally Once a day 1 tablet 24h 30 Active Ativan 1 MG Orally Twice a day 1 tablet as needed 12h 23 Dec, 2014 28 days Active RESULTS No Results PROCEDURES Procedure Date Ordered Result Body Site URINALYSIS, AUTO, W/O SCOPE Mar 08, 2017 URINE CULTURE/COLONY COUNT Mar 08, 2017 INSTRUCTIONS MEDICATIONS ADMINISTERED No Known Medications [...]
--- OUTSIDE RECORDS SUMMARY | 2017-10-18 09:15 | XMS REPORT ---
Author Author MIRELLA MARIA Organization [facility] Address [address] [place] [address] Care Team Providers Care Chip Person Name Role Phone MIRELLA MARIA Unavailable PROBLEMS Type Condition ICD9-CM Code ZYJ30-IT Code Onset Dates Condition Status SNOMED Code Problem Mood disorder F39 Active 94653632 Problem Shoulder pain, right M25.511 Active 93515564 Problem Acquired hypothyroidism E03.9 Active 896612819 Problem Low back pain M54.5 Active 894392771 Problem Cervical radiculopathy M54.12 Active 79389823 Problem History of urethral stricture Z87.448 Active 962689815 Problem Diabetes type 2, uncontrolled E11.65 Active 824627773 Problem Hypertension, benign I10 Active 16808291 Problem Controlled type 2 diabetes mellitus without complication, without long -term current use of insulin E11.9 Active 236452950 Problem Diabetes type 2, controlled E11.9 Active 50056730 ALLERGIES No Information ENCOUNTERS Encounter Location Date Diagnosis [place] [id number] [place] [address] 93489- 8996 Jun, Controlled type 2 diabetes mellitus without complication, without long-term current use of insulin E11.9 [place] [id number] [place] [address] 38506- 9611 19 May, 2017 [place] [id number] [place] [address] 66843- 2476 16 May, 2017 Radiculopathy of cervical region M54.12 [place] [id number] [place] [address] 32848- 8593 14 May, 2017 Controlled type 2 diabetes mellitus without complication, without long-term current use of insulin E11.9 [place] [id number] [place] [address] 70674- 9812 12 May, 2017 [place] [address] [address] 4597 May, Controlled type 2 diabetes mellitus without complication, without long-term current use of insulin E11.9 [place] [address] [address]- 6896 May, Controlled type 2 diabetes mellitus without complication, without long-term current use of insulin E11.9 [place] [address] [address]- 2783 May, Controlled type 2 diabetes mellitus without complication, without long-term current use of insulin E11.9 [place] [address] [address]- 9899 Apr, [place] [address] [address]- 9618 Apr, Controlled type 2 diabetes mellitus without complication, without long-term current use of insulin E11.9 [place] [address] [address]- 9132 Apr, [place] [address] [address]- 5280 Apr, Controlled type 2 diabetes mellitus without complication, without long-term current use of insulin E11.9 [place] [address] [address]- 0009 Mar, [place] [address] [address]- 9820 Mar, Radiculopathy of cervical region M54.12 [place] [address] [address]- 1333 Mar, Controlled type 2 diabetes mellitus without complication, without long-term current use of insulin E11.9 [place] [id number] [address]- 7003 Feb, Cervical radiculopathy M54.12 ; Acute cystitis without hematuria N30.00 and History of urethral stricture Z87.448 [facility] [address] [address]- 7410 Feb, Controlled type 2 diabetes mellitus without complication, without long-term current use of insulin E11.9 [facility] [id number] [place] [address] 27457- 9078 Feb, [facility] [id number] [place] [address] 05209- 4810 Jan, Diabetes type [address], [address] [facility] [id number] [place] [address] 20943- 4695 Jan, [facility] [id number] [place] [address] 40273- 9660 Jan, Controlled type 2 diabetes mellitus without complication, without long-term current use of insulin E11.9 ; Chest wall pain R07.89 and Thoracic spine pain M54.6 [place] [id number] [place] [address] 68919- 0657 Dec, [facility] [id number] [place] [address] 89182- 6475 Dec, [facility] [id number] [place] [address] 72069- 7171 Nov, [facility] [id number] [place] [address] 87681- 8753 Nov, [facility] [id number] [place] [address] 71216 -8945 Nov, Trichomonas exposure Z20.2 [facility] [id number] [place] [address] 44670- 0366 Oct, [facility] [id number] [place] [address] 57503- 4887 Oct, [facility] [id number] [place] [address] 68257- 7755 Oct, [facility] [id number] [place] [address]- 3648 Oct, [facility] [address] [id number] [place] [address]- 9007 Sep, [facility] [place] [facility] [address] [id number] [place] [address]- 9612 Sep, [facility] [address] [id number] [place] [address]- 3390 Aug, [facility] [place] [facility] [address] [id number] [place] [address]- 9064 Aug, [facility] [address] [id number] [place] [address]- 9025 Aug, [facility] [address] [id number] [place] [address]- 9339 Aug, [facility] [address] [id number] [place] [address]- 3341 July, Diabetes type 2, controlled E11.9 [facility] [address] [id number] [place] [address]- 8755 July, [facility] [address] [facility] [id number] [place] [address]- 7236 July, [facility] [address] [id number] [place] [address]- 7443 July, [facility] [address] [id number] [place] [address]- 0520 July, [facility] [place] [facility] [address] [id number] [place] [address]- 3706 Jun, [facility] [place] [facility] [address] [id number] [place] [address]- 3661 Jun, [facility] [place] [facility] [address] [id number] [place] [address]- 2268 May, [facility] [place] [facility] [address] [id number] [address]- 8466 May, [facility] [address] [facility] [id number] [place] [address]- 7124 May, [facility] [id number] [place] [address] 80618- 2956 May, Controlled type 2 diabetes mellitus without complication, without long-term current use of insulin E11.9 [facility] [address] [facility] [id number] [place] [address], [place] [address]- 5808 Apr, [facility] [address] [facility] [id number] [place] [address], [place] [address]- 2546 Apr, [facility] [id number] [place] [address], [place] [address]- 3536 Mar, [facility] [id number] [place] [address] 29986- 3197 Mar, [facility] [id number] [place] [address] 60063- 9678 Feb, [facility] [address] [address]- 7114 Feb, [facility] [id number] [place] [address] 408002- 0314 Jan, [facility] [address] [address]- 4351 Jan, [facility] [id number] [address]- 6233 Jan, [facility] [address] [facility] [id number] [address]- 1414 Dec, [facility] [address] [facility] [id number] [place] [address], [place] [address]- 8006 Dec, [facility] [id number] [address]- 0611 Dec, [facility] [id number] [place] [address] 74634- 9655 29 Nov, 2015 Diabetes type [address], [address] [facility] [address] [address]- 9669 14 Nov, 2015 [facility] [id number] [place] [address] 44568- 8317 09 Nov, 2015 [facility] [id number] [place] [address] 72173- 3816 Oct, [facility] [id number] [place] [address] 65284- 7126 Oct, [facility] [id number] [place] [address] 24623- 0915 Sep, Controlled type 2 diabetes mellitus without complication, without long-term current use of insulin E11.9 [facility] [id number] [place] [address] 24824- 2442 Sep, [facility] [id number] [place] [address] 71869- 9888 Sep, [facility] [id number] [place] [address] 08777- 5490 Sep, [facility] [id number] [place] [address] 97447- 4407 Sep, [facility] [id number] [place] [address] 31278- 5511 Aug, Diabetes type 2, controlled E11.9 ; Anxiety F41.9 ; Carpal tunnel syndrome, left upper limb G56.02 and Carpal tunnel syndrome, right upper limb G56.01 [facility] [address] [address]- 0891 Aug, Urethritis N34.2 [facility] [id number] [place] [address] 83168- 5664 Aug, [facility] [id number] [place] [address] 10816- 8274 July, Genital warts A63.0 [facility] [address] [facility] [id number] [place] [address]- 2966 July, [facility] [address] [facility] [id number] [place] [address] 2546 July, Genital warts A63.0 [facility] [address] [address]- 7596 July, Anxiety F41.9 [facility] [id number] [place] [address] 61892 2546 Jun, Genital warts A63.0 [facility] [id number] [place] [address] 53344- 6006 Jun, Anxiety F41.9 [facility] [id number] [place] [address] 79722- 6281 May, Genital warts A63.0 and Diabetes type [address], [address] [facility] [address] [address]- 7216 May, [facility] [id number] [place] [address] 86568- 1918 May, [facility] [address] [address]- 2059 Apr, [facility] [address] [address] 2546 Apr, [facility] [address] [address]- 2542 Apr, Diabetes type [address], [address] [facility] [address] [address] 2546 Apr, Genital warts A63.0 [facility] [address] [address]- 2546 Apr, [facility] [id number] [place] [address] 34301- 8597 Apr, Diabetes type 2, uncontrolled E11.65 and Genital warts A63.0 [facility] [id number] [place] [address] 00548- 0938 Apr, [facility] [id number] [place] [address] 37312- 6687 Mar, [facility] [id number] [place] [address] 50810- 2823 Mar, [facility] [id number] [place] [address] 14455- 3883 Mar, Family history of diabetes mellitus V18.[address] [facility] [id number] [place] [address] 65362- 5513 Mar, Genital warts A63.0 and Family history of diabetes mellitus V18.0 [facility] [id number] [place] [address] 47930- 0673 Feb, [facility] [id number] [place] [address] 58386- 1520 Jan, [facility] [id number] [place] [address] 47898- 3013 Jan, Perianal venereal warts A63.0 [facility] [id number] [place] [address] 04657- 1246 Jan, Urethritis N34.[address] [facility] [id number] [place] [address] 23200- 1826 Jan, [facility] [id number] [place] [address] 89688- 1380 Jan, Urinary tract infection, site unspecified N39.0 [facility] [id number] [place] [address] 77449- 0740 Jan, [facility] [id number] [place] [address] 49122- 5411 Dec, [place] [id number] [place] [address] 47367- 6980 Dec, HPV (human papilloma virus) anogenital infection A63.0 ; Anxiety F41.9 and Gastroesophageal reflux disease without esophagitis K21.9 [place] [id number] [place] [address] 254037- 3704 Sep, Blood in stool 578.1 [place] [address] 33066- 3181 Aug, Blood in stool 578.[address] 240054- 9842 Aug, Anxiety 300.00 and Blood in stool 578.[address] 35574- 0218 July, [address] 67816- 8343 July, Family history of diabetes mellitus V18.[address] 37872- 7322 July, Family history of diabetes mellitus V18.0 ; Family history of thyroid disease V18.19 ; Polyuria 788.42 ; Polydipsia 783.5 ; Alopecia 704.00 and Fatigue 780.79 [place] [id number] [place] [address] 98771- 1976 Jun, [place] [id number] [place] [address] 48959- 5473 Jun, [address] 33850744- 7448 Mar, [place] [id number] [place] [address] 84409- 7410 Mar, [address] 43051- 9400 Mar, [facility] [place] [facility] [address] [id number] [place] [address]- 1853 Mar, [facility] [place] [facility] [address] [id number] [place] [address]- 1030 Mar, [facility] [place] [facility] [address] [id number] [place] [address]- 5452 Mar, [facility] [place] [facility] [address] [id number] [place] [address]- 2393 Mar, [facility] [place] [facility] [address] [id number] [place] [address]- 2749 Mar, [facility] [place] [facility] [address] [id number] [place] [address]- 6570 Mar, [facility] [place] [facility] [address] [id number] [place] [address]- 1573 Mar, [facility] [place] [facility] [address] [id number] [place] [address]- 5804 Feb, [facility] [place] [facility] [address] [id number] [address]- 5803 Feb, [facility] [place] [facility] [address] [id number] [place] [address]- 7224 Jan, [facility] [place] [facility] [address] [id number] [place] [address]- 7130 Jan, [facility] [place] [facility] [address] [id number] [place] [address]- 9119 Jan, [facility] [place] [facility] [address] [id number] [place] [address]- 2993 Jan, [facility] [place] [facility] [address] [id number] [place] [address]- 0908 Dec, [facility] [place] [facility] [address] [id number] [place] [address]- 9092 Dec, [facility] [place] [facility] [address] [id number] [place] [address]- 6609 Nov, [facility] [place] [facility] [address] [id number] [place] [address]- 7699 Nov, [facility] [place] [facility] [address] [id number] [place] [address]- 8280 Oct, [facility] [place] [facility] [address] [id number] [place] [address]- 4918 Oct, [facility] [place] [facility] [address] [id number] [place] [address]- 2589 Oct, [facility] [place] [facility] [address] [id number] [place] [address]- 1046 Oct, [facility] [place] [facility] [address] [id number] [place] [address]- 2652 Oct, [facility] [place] [facility] [address] [id number] [place] [address]- 0130 Oct, [facility] [place] [facility] [address] [id number] [place] [address]- 6469 Oct, [facility] [place] [facility] [address] [id number] [place] [address]- 1422 Oct, [facility] [place] [facility] [address] [id number] [place] [address]- 1583 Sep, [facility] [place] [facility] [address] [id number] [place] [address]- 4045 Sep, [facility] [place] [facility] [address] [id number] [place] [address]- 6799 Sep, [facility] [place] [facility] [address] [id number] [place] [address]- 4820 Sep, [facility] [place] [facility] [address] [id number] [place] [address]- 5245 Aug, [facility] [place] [facility] [address] [id number] [place] [address]- 1261 Aug, [facility] [place] [facility] [address] [id number] [place] [address]- 7976 Aug, [facility] [place] [facility] [address] [id number] [place] [address]- 6916 Aug, [facility] [place] [facility] [address] [id number] [place] [address]- 0365 July, [facility] [place] [facility] [address] [id number] [place] [address]- 1370 July, [facility] [place] [facility] [address] [id number] [place] [address]- 3884 July, [facility] [place] [facility] [address] [id number] [place] [address]- 6861 July, [facility] [place] [facility] [address] [id number] [place] [address]- 1612 July, [facility] [place] [facility] [address] [id number] [place] [address]- 4629 July, [facility] [place] [facility] [address] [id number] [place] [address]- 0858 Jun, [facility] [place] [facility] [address] [id number] [place] [address]- 1102 Jun, [facility] [place] [facility] [address] [id number] [place] [address]- 9091 Jun, [facility] [place] [facility] [address] [id number] [place] [address]- 9241 15 Jun, 2013 [facility] [place] [facility] [address] [id number] [place] [address]- 0993 Jun, [facility] [place] [facility] [address] [id number] [place] [address]- 3921 Jun, [facility] [place] [facility] [address] [id number] [place] [address]- 5717 Jun, [facility] [place] [facility] [address] [id number] [place] [address]- 5066 14 Jun, 2013 [facility] [place] [facility] [address] [id number] [place] [address]- 1012 May, [facility] [place] [facility] [address] [id number] [place] [address]- 5546 May, [facility] [place] [facility] [address] [id number] [place] [address]- 3210 May, [facility] [place] [facility] [address] [id number] [place] [address]- 6422 Apr, [facility] [place] [facility] [address] [id number] [place] [address]- 2254 Apr, [facility] [place] [facility] [address] [id number] [place] [address]- 2862 Apr, [facility] [place] [facility] [address] [id number] [place] [address]- 4686 Apr, [facility] [place] [facility] [address] [id number] [place] [address]- 9145 Mar, [facility] [place] [facility] [address] [id number] [place] [address]- 9948 Mar, [facility] [place] [facility] [address] [id number] [place] [address]- 1331 Mar, [facility] [place] [facility] [address] [id number] [place] [address]- 3171 Mar, [facility] [place] [facility] [address] [id number] [place] [address]- 4538 Mar, [facility] [place] [facility] [address] [id number] [place] [address]- 9009 Mar, [facility] [place] [facility] [address] [id number] [place] [address]- 5397 Feb, [facility] [place] [facility] [address] [id number] [place] [address]- 9315 Feb, [facility] [place] [facility] [address] [id number] [place] [address]- 4087 Jan, [facility] [place] [facility] [address] [id number] [place] [address]- 8924 Jan, [facility] [place] [facility] [address] [id number] [place] [address] Jan, [facility] [place] [facility] [address] [id number] [place] [address] Jan, [facility] [place] [facility] [address] [id number] [place] [address] Jan, [facility] [place] [facility] [address] [id number] [place] [address] Jan, [facility] [place] [facility] [address] [id number] [place] [address] Jan, [facility] [place] [facility] [address] [id number] [place] [address] Dec, [facility] [place] [facility] [address] [id number] [place] [address] Dec, [facility] [place] [facility] [address] [id number] [place] [address] Nov, [facility] [place] [facility] [address] [id number] [place] [address] Nov, [facility] [place] [facility] [address] [id number] [place] [address] Nov, [facility] [place] [facility] [address] [id number] [place] [address] Oct, [facility] [place] [facility] [address] [id number] [place] [address] Oct, [facility] [place] [facility] [address] [id number] [place] [address] Oct, [facility] [place] [facility] [address] [id number] [place] [address] Oct, [facility] [address] [id number] [place] [address] Sep, [facility] [address] [id number] [place] [address] Sep, [facility] [address] [facility] [id number] [place] [address] Aug, [facility] [address] [id number] [place] [address] Aug, [facility] [address] [id number] [place] [address] Aug, [facility] [address] [facility] [id number] [place] [address] Aug, [facility] [address] [facility] [id number] [address] July, [facility] [address] [facility] [id number] [place] [address] July, [facility] [address] [facility] [id number] [address] July, [facility] [address] [facility] [id number] [address] July, [facility] [address] [facility] [id number] [address] Jun, [facility] [address] [facility] [id number] [address] Jun, [facility] [address] [facility] [id number] [address] Feb, [facility] [address] [facility] [id number] [place] [address] Feb, [facility] [address] [facility] [id number] [place] [address] Mar, IMMUNIZATIONS No Known Immunizations SOCIAL HISTORY Never Assessed REASON FOR VISIT Controlled Med Refill 03/28 PLAN OF CARE VITAL SIGNS MEDICATIONS Medication [...]
--- OUTSIDE RECORDS SUMMARY | 2017-10-18 09:15 | XMS REPORT ---
Author Author MIRELLA MARIA Organization [facility] Address [address] [place] [address] Care Team Providers Care Application Lead Name Role Phone MIRELLA MARIA Unavailable PROBLEMS Type Condition ICD9-CM Code YCH74-TH Code Onset Dates Condition Status SNOMED Code Problem Mood disorder F39 Active 28653898 Problem Shoulder pain, right M25.511 Active 38977472 Problem Acquired hypothyroidism E03.9 Active 452952295 Problem Low back pain M54.5 Active 440992830 Problem Cervical radiculopathy M54.12 Active 65126843 Problem History of urethral stricture Z87.448 Active 858026067 Problem Diabetes type 2, uncontrolled E11.65 Active 802851518 Problem Hypertension, benign I10 Active 60504240 Problem Controlled type 2 diabetes mellitus without complication, without long -term current use of insulin E11.9 Active 896881610 Problem Diabetes type 2, controlled E11.9 Active 56232671 ALLERGIES No Information ENCOUNTERS Encounter Location Date Diagnosis [place] [id number] [place] [address] 54835- 2953 Jun, Controlled type 2 diabetes mellitus without complication, without long-term current use of insulin E11.9 [place] [id number] [place] [address] 58680- 4799 19 May, 2017 [place] [id number] [place] [address] 83516- 8702 16 May, 2017 Radiculopathy of cervical region M54.12 [place] [id number] [place] [address] 70550- 2865 14 May, 2017 Controlled type 2 diabetes mellitus without complication, without long-term current use of insulin E11.9 [place] [id number] [place] [address] 52488- 0188 12 May, 2017 [place] [address], [place] [address] 2014 May, Controlled type 2 diabetes mellitus without complication, without long-term current use of insulin E11.9 [place] [address], [place] [address] 0583 May, Controlled type 2 diabetes mellitus without complication, without long-term current use of insulin E11.9 [place] [address], [place] [address] 3160 May, Controlled type 2 diabetes mellitus without complication, without long-term current use of insulin E11.9 [place] [address], [place] [address]- 7809 Apr, [place] [address] [address]- 4070 Apr, Controlled type 2 diabetes mellitus without complication, without long-term current use of insulin E11.9 [place] [address], [place] [address]- 9283 Apr, [place] [address] [address]- 4771 Apr, Controlled type 2 diabetes mellitus without complication, without long-term current use of insulin E11.9 [place] [address], [place] [address]- 9239 Mar, [place] [address], [place] [address]- 9405 Mar, Radiculopathy of cervical region M54.12 [place] [address], [place] [address] 3705 Mar, Controlled type 2 diabetes mellitus without complication, without long-term current use of insulin E11.9 [place] [id number] [address] 4532 Feb, Cervical radiculopathy M54.12 ; Acute cystitis without hematuria N30.00 and History of urethral stricture Z87.448 [facility] [address], [place] [address] 3481 Feb, Controlled type 2 diabetes mellitus without complication, without long-term current use of insulin E11.9 [facility] [id number] [place] [address] 41742- 2613 Feb, [facility] [id number] [place] [address] 50084- 4904 Jan, Diabetes type 2, uncontrolled E11.65 [facility] [id number] [place] [address] 19404- 8274 Jan, [facility] [id number] [place] [address] 81689- 3148 Jan, Controlled type 2 diabetes mellitus without complication, without long-term current use of insulin E11.9 ; Chest wall pain R07.89 and Thoracic spine pain M54.6 [place] [id number] [place] [address] 79846- 7256 Dec, [facility] [id number] [place] [address] 78669- 5417 Dec, [facility] [id number] [place] [address] 13417- 7760 Nov, [facility] [id number] [place] [address] 53954- 6647 Nov, [facility] [id number] [place] [address] 29333 -7965 Nov, Trichomonas exposure Z20.2 [facility] [id number] [place] [address] 40284- 4971 Oct, [facility] [id number] [place] [address] 89277- 3387 Oct, [facility] [id number] [place] [address] 99649- 7845 Oct, [facility] [id number] [place] [address]- 3193 Oct, [facility] [address] [id number] [place] [address]- 2786 Sep, [facility] [place] [facility] [address] [id number] [place] [address]- 1020 Sep, [facility] [address] [id number] [place] [address]- 1198 Aug, [facility] [place] [facility] [address] [id number] [place] [address]- 7875 Aug, [facility] [address] [id number] [place] [address]- 0103 Aug, [facility] [address] [id number] [place] [address]- 7074 Aug, [facility] [address] [id number] [place] [address]- 2450 July, Diabetes type 2, controlled E11.9 [facility] [address] [id number] [place] [address]- 5268 July, [facility] [address] [facility] [id number] [place] [address]- 0792 July, [facility] [address] [id number] [place] [address]- 4463 July, [facility] [address] [id number] [place] [address]- 2467 July, [facility] [place] [facility] [address] [id number] [place] [address]- 6843 Jun, [facility] [place] [facility] [address] [id number] [place] [address]- 4123 Jun, [facility] [place] [facility] [address] [id number] [place] [address]- 1063 May, [facility] [place] [facility] [address] [id number], [place] [address]- 5746 May, [facility] [address] [facility] [id number] [place] [address]- 4469 May, [facility] [id number] [place] [address] 86242- 3206 May, Controlled type 2 diabetes mellitus without complication, without long-term current use of insulin E11.9 [facility] [address] [facility] [id number] [place] [address], [place] [address]- 7724 Apr, [facility] [address] [facility] [id number] [place] [address], [place] [address]- 2546 Apr, [facility] [id number] [place] [address], [place] [address]- 1576 Mar, [facility] [id number] [place] [address] 78490- 9341 Mar, [facility] [id number] [place] [address] 40706- 3747 Feb, [facility] [address], [place] [address]- 3684 Feb, [facility] [id number] [place] [address] 606998- 6641 Jan, [facility] [address], [place] [address]- 2895 Jan, [facility] [id number], [place] [address]- 0954 Jan, [facility] [address] [facility] [id number], [place] [address]- 0396 Dec, [facility] [address] [facility] [id number] [place] [address], [place] [address]- 9016 Dec, [facility] [id number], [place] [address]- 8603 Dec, [facility] [id number] [place] [address] 31533- 2962 29 Nov, 2015 Diabetes type 2, uncontrolled E11.65 [facility] [address], [place] [address]- 6609 14 Nov, 2015 [facility] [id number] [place] [address] 04005- 2432 09 Nov, 2015 [facility] [id number] [place] [address] 30470- 9081 Oct, [facility] [id number] [place] [address] 67393- 2065 Oct, [facility] [id number] [place] [address] 99519- 5612 Sep, Controlled type 2 diabetes mellitus without complication, without long-term current use of insulin E11.9 [facility] [id number] [place] [address] 38865- 0779 Sep, [facility] [id number] [place] [address] 57277- 3156 Sep, [facility] [id number] [place] [address] 61202- 0753 Sep, [facility] [id number] [place] [address] 60246- 8690 Sep, [facility] [id number] [place] [address] 10311- 5063 Aug, Diabetes type 2, controlled E11.9 ; Anxiety F41.9 ; Carpal tunnel syndrome, left upper limb G56.02 and Carpal tunnel syndrome, right upper limb G56.01 [facility] [address], [place] [address]- 4990 Aug, Urethritis N34.2 [facility] [id number] [place] [address] 77409- 6871 Aug, [facility] [id number] [place] [address] 93711- 0215 July, Genital warts A63.0 [facility] [address] [facility] [id number], [place] [address]- 2396 July, [facility] [address] [facility] [id number], [place] [address] 2546 July, Genital warts A63.0 [facility] [address], [place] [address]- 8666 July, Anxiety F41.9 [facility] [id number] [place] [address] 50818 2546 Jun, Genital warts A63.0 [facility] [id number] [place] [address] 10483- 1206 Jun, Anxiety F41.9 [facility] [id number] [place] [address] 73735- 0025 May, Genital warts A63.0 and Diabetes type 2, uncontrolled E11.65 [facility] [address], [place] [address]- 0216 May, [facility] [id number] [place] [address] 01362- 2683 May, [facility] [address], [place] [address]- 7555 Apr, [facility] [address], [place] [address] 2546 Apr, [facility] [address], [place] [address]- 2540 Apr, Diabetes type 2, controlled E11.9 [facility] [address], [place] [address] 2546 Apr, Genital warts A63.0 [facility] [address], [place] [address]- 2546 Apr, [facility] [id number] [place] [address] 53422- 5193 Apr, Diabetes type 2, uncontrolled E11.65 and Genital warts A63.0 [facility] [id number] [place] [address] 60269- 3722 Apr, [facility] [id number] [place] [address] 12812- 0562 Mar, [facility] [id number] [place] [address] 90786- 6648 Mar, [facility] [id number] [place] [address] 81477- 2304 Mar, Family history of diabetes mellitus V18.0 and Weight loss R63.4 [facility] [id number] [place] [address] 83102- 5150 Mar, Genital warts A63.0 and Family history of diabetes mellitus V18.0 [facility] [id number] [place] [address] 71113- 3059 Feb, [facility] [id number] [place] [address] 71081- 0529 Jan, [facility] [id number] [place] [address] 60336- 7117 Jan, Perianal venereal warts A63.0 [facility] [id number] [place] [address] 27866- 0353 Jan, Urethritis N34.2 and Anxiety F41.9 [facility] [address] [place] [address] 92879- 1284 Jan, [facility] [id number] [place] [address] 38858- 3408 Jan, Urinary tract infection, site unspecified N39.0 [facility] [id number] [place] [address] 96591- 2197 Jan, [facility] [id number] [place] [address] 74108- 2024 Dec, [place] [id number] [place] [address] 56063- 9003 Dec, HPV (human papilloma virus) anogenital infection A63.0 ; Anxiety F41.9 and Gastroesophageal reflux disease without esophagitis K21.9 [place] [id number] [place] [address] 778162- 1015 Sep, Blood in stool 578.1 [place] [address] 63531- 9509 Aug, Blood in stool 578.[address] 330363- 9626 Aug, Anxiety 300.00 and Blood in stool 578.[address] 91581- 0912 July, [address] 71419- 1241 July, Family history of diabetes mellitus V18.[address] 21709- 4588 July, Family history of diabetes mellitus V18.0 ; Family history of thyroid disease V18.19 ; Polyuria 788.42 ; Polydipsia 783.5 ; Alopecia 704.00 and Fatigue 780.79 [place] [id number] [place] [address] 24737- 3414 Jun, [place] [id number] [place] [address] 63334- 7212 Jun, [address] 88930260- 9176 Mar, [place] [id number] [place] [address] 35578- 1566 Mar, [address] 61650- 2955 Mar, [facility] [place] [facility] [address] [id number] [place] [address]- 7309 Mar, [facility] [place] [facility] [address] [id number] [place] [address]- 0658 Mar, [facility] [place] [facility] [address] [id number] [place] [address]- 7884 Mar, [facility] [place] [facility] [address] [id number] [place] [address]- 4768 Mar, [facility] [place] [facility] [address] [id number] [place] [address]- 7873 Mar, [facility] [place] [facility] [address] [id number] [place] [address]- 8737 Mar, [facility] [place] [facility] [address] [id number] [place] [address]- 2639 Mar, [facility] [place] [facility] [address] [id number] [place] [address]- 3639 Feb, [facility] [place] [facility] [address] [id number], [place] [address]- 2924 Feb, [facility] [place] [facility] [address] [id number] [place] [address]- 1990 Jan, [facility] [place] [facility] [address] [id number], [place] [address]- 1617 Jan, [facility] [place] [facility] [address] [id number], [place] [address]- 5643 Jan, [facility] [place] [facility] [address] [id number], [place] [address]- 0673 Jan, [facility] [place] [facility] [address] [id number], [place] [address]- 8916 Dec, [facility] [place] [facility] [address] [id number] [place] [address]- 3067 Dec, [facility] [place] [facility] [address] [id number] [place] [address]- 8138 Nov, [facility] [place] [facility] [address] [id number] [place] [address]- 4531 Nov, [facility] [place] [facility] [address] [id number] [place] [address]- 8782 Oct, [facility] [place] [facility] [address] [id number] [place] [address]- 0992 Oct, [facility] [place] [facility] [address] [id number] [place] [address]- 2827 Oct, [facility] [place] [facility] [address] [id number] [place] [address]- 2612 Oct, [facility] [place] [facility] [address] [id number] [place] [address]- 8420 Oct, [facility] [place] [facility] [address] [id number] [place] [address]- 2754 Oct, [facility] [place] [facility] [address] [id number] [place] [address]- 1827 Oct, [facility] [place] [facility] [address] [id number] [place] [address]- 9288 Oct, [facility] [place] [facility] [address] [id number] [place] [address]- 9085 Sep, [facility] [place] [facility] [address] [id number] [place] [address]- 7858 Sep, [facility] [place] [facility] [address] [id number] [place] [address]- 0423 Sep, [facility] [place] [facility] [address] [id number] [place] [address]- 3730 Sep, [facility] [place] [facility] [address] [id number] [place] [address]- 3868 Aug, [facility] [place] [facility] [address] [id number] [place] [address]- 1706 Aug, [facility] [place] [facility] [address] [id number] [place] [address]- 5323 Aug, [facility] [place] [facility] [address] [id number] [place] [address]- 8914 Aug, [facility] [place] [facility] [address] [id number] [place] [address]- 3527 July, [facility] [place] [facility] [address] [id number] [place] [address]- 9109 July, [facility] [place] [facility] [address] [id number] [place] [address]- 0687 July, [facility] [place] [facility] [address] [id number] [place] [address]- 1777 July, [facility] [place] [facility] [address] [id number] [place] [address]- 6313 July, [facility] [place] [facility] [address] [id number] [place] [address]- 2166 July, [facility] [place] [facility] [address] [id number] [place] [address]- 6970 Jun, [facility] [place] [facility] [address] [id number] [place] [address]- 3406 Jun, [facility] [place] [facility] [address] [id number] [place] [address]- 8634 Jun, [facility] [place] [facility] [address] [id number] [place] [address]- 5006 15 Jun, 2013 [facility] [place] [facility] [address] [id number] [place] [address]- 6538 Jun, [facility] [place] [facility] [address] [id number] [place] [address]- 1719 Jun, [facility] [place] [facility] [address] [id number] [place] [address]- 6582 Jun, [facility] [place] [facility] [address] [id number] [place] [address]- 6727 14 Jun, 2013 [facility] [place] [facility] [address] [id number] [place] [address]- 3887 May, [facility] [place] [facility] [address] [id number] [place] [address]- 2639 May, [facility] [place] [facility] [address] [id number] [place] [address]- 9191 May, [facility] [place] [facility] [address] [id number] [place] [address]- 6754 Apr, [facility] [place] [facility] [address] [id number] [place] [address]- 5158 Apr, [facility] [place] [facility] [address] [id number] [place] [address]- 1061 Apr, [facility] [place] [facility] [address] [id number] [place] [address]- 4182 Apr, [facility] [place] [facility] [address] [id number] [place] [address]- 5161 Mar, [facility] [place] [facility] [address] [id number] [place] [address]- 8166 Mar, [facility] [place] [facility] [address] [id number] [place] [address]- 2005 Mar, [facility] [place] [facility] [address] [id number] [place] [address]- 7604 Mar, [facility] [place] [facility] [address] [id number] [place] [address]- 5484 Mar, [facility] [place] [facility] [address] [id number] [place] [address]- 8779 Mar, [facility] [place] [facility] [address] [id number] [place] [address]- 0319 Feb, [facility] [place] [facility] [address] [id number] [place] [address]- 4227 Feb, [facility] [place] [facility] [address] [id number] [place] [address]- [address] Jan, [facility] [place] [facility] [address] [id number] [place] [address] Jan, [facility] [place] [facility] [address] [id number] [place] [address] Jan, [facility] [place] [facility] [address] [id number] [place] [address] Jan, [facility] [place] [facility] [address] [id number] [place] [address] Jan, [facility] [place] [facility] [address] [id number] [place] [address] Jan, [facility] [place] [facility] [address] [id number] [place] [address] Jan, [facility] [place] [facility] [address] [id number] [place] [address] Dec, [facility] [place] [facility] [address] [id number] [place] [address] Dec, [facility] [place] [facility] [address] [id number] [place] [address] Nov, [facility] [place] [facility] [address] [id number] [place] [address] Nov, [facility] [place] [facility] [address] [id number] [place] [address] Nov, [facility] [place] [facility] [address] [id number] [place] [address] Oct, [facility] [place] [facility] [address] [id number] [place] [address] Oct, [facility] [place] [facility] [address] [id number] [place] [address] Oct, [facility] [place] [facility] [address] [id number], [place] [address] Oct, [facility] [address] [id number] [place] [address] Sep, [facility] [address] [id number], [place] [address] Sep, [facility] [address] [facility] [id number] [place] [address] Aug, [facility] [address] [id number], [place] [address] Aug, [facility] [address] [id number] [place] [address] Aug, [facility] [address] [facility] [id number] [place] [address] Aug, [facility] [address] [facility] [id number], [place] [address] July, [facility] [address] [facility] [id number] [place] [address] July, [facility] [address] [facility] [id number], [place] [address] July, [facility] [address] [facility] [id number], [place] [address] July, [facility] [address] [facility] [id number], [place] [address] Jun, [facility] [address] [facility] [id number], [place] [address] Jun, [facility] [address] [facility] [id number], [place] [address] Feb, [facility] [address] [facility] [id number], [place] [address] Feb, [facility] [address] [facility] [id number], [place] [address] Mar, IMMUNIZATIONS No Known Immunizations SOCIAL HISTORY [...]
--- OUTSIDE RECORDS SUMMARY | 2017-10-18 09:16 | XMS REPORT ---
Author MIRELLA Aranda Organization [employer] Address Unknown Phone Unavailable Care Team Providers Care Automatic Punch Press Operator Name Role Phone MIRELLA MRAIA CP Unavailable Allergies, Adverse Reactions, Alerts Substance Reaction Event Type N.K.D.A. Info Not Available Non Drug Allergy Problems Problem Type Condition Code Onset Dates Condition Status Problem Mood disorder F39 Active Problem Low back pain M54.5 Active Problem Shoulder pain, right M25.511 Active Assessment Urethritis N34.2 Active Assessment Anxiety F41.9 Active Problem Acquired hypothyroidism E03.9 Active Problem Hypertension, benign I10 Active Medications Medication Code System Code Instructions Start Date End Date Status Dosage Pyridium [facility] [address]-10 100 MG Orally Three times a day Feb 10, 2015 Feb 13, 2015 1 tablet after meals Pantoprazole Sodium [facility] [address]-25 40 MG Orally Once a day Jan 10, 2015 1 tablet Ativan [facility] [address]-06 0.5 MG Orally Twice a day Jan 10, 2015 1 tablet as needed Procedures Procedure Coding System Code Date Office Visit, Est Pt., Level 3 CPT-4 77661 Feb 10, 2015 Vital Signs Date/Time: Feb 10, 2015 Temperature 97.7 F Weight 213.9 lbs Height 68 in BMI 32.52 Index Blood Pressure Diastolic 86 mmHg Blood Pressure Systolic 128 mmHg Cardiac Monitoring Heart Rate 96 bpm Results No Known Results Summary Purpose [employer] Submission
--- OUTSIDE RECORDS SUMMARY | 2017-10-18 09:16 | XMS REPORT ---
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 Name Role Phone MIRELLA MARIA Unavailable PROBLEMS Type Condition ICD9-CM Code [id number] Code Onset Dates Condition Status SNOMED Code Problem Mood disorder F39 Active 55349181 Problem Low back pain M54.5 Active 071384965 Problem Controlled type 2 diabetes mellitus without complication, without long -term current use of insulin E11.9 Active 819636092 Problem Diabetes type 2, controlled E11.9 Active 44954665 Problem Shoulder pain, right M25.511 Active 89663174 Problem Acquired hypothyroidism E03.9 Active 095880127 Problem Diabetes type 2, uncontrolled E11.65 Active 371410769 Problem Hypertension, benign I10 Active 66008134 ALLERGIES No Information SOCIAL HISTORY Never Assessed PLAN OF CARE VITAL SIGNS MEDICATIONS Medication Instructions Dosage Frequency Start Date End Date Duration Status Tramadol HCl 50 mg Orally every 6 hrs 1 tablet as needed 6h May, 28 days Active RESULTS No Results PROCEDURES No Known procedures IMMUNIZATIONS No Known Immunizations MEDICAL (GENERAL) HISTORY Type Description Date Medical History hypertension Medical History Hypothyroidism Medical History anxiety Medical History chronic pain (back) Medical History hx of prostatitis Medical History Diabetes type II Surgical History wart removal from anus. 2015 Surgical History Colonoscopy 12/2015 Hospitalization History pneumonia 1994 Hospitalization History Left side of face sewn up-bottle to face. 1997
--- OUTSIDE RECORDS SUMMARY | 2017-10-18 09:16 | XMS REPORT ---
Author Author MIRELLA MARIA Organization [employer] Address Unknown Phone Unavailable Care Team Providers Care Master Data Analyst Name Role Phone MIRELLA MARIA CP Unavailable Allergies No Known Allergies Problems Problem Type Condition Code Onset Dates Condition Status Problem Diabetes type 2, uncontrolled E11.65 Active Problem Shoulder pain, right M25.511 Active Problem Diabetes type 2, controlled E11.9 Active Problem Acquired hypothyroidism E03.9 Active Problem Hypertension, benign I10 Active Problem Mood disorder F39 Active Problem Low back pain M54.5 Active Medications No Known Medications Results No Known Results Summary Purpose [employer] Submission
--- OUTSIDE RECORDS SUMMARY | 2017-10-18 09:16 | XMS REPORT ---
Author Author GERALDO SHERMAN Organization [facility] Address [address] [place] [address] Care Team Providers Care Dopster Name Role Phone GERALDO SHERMAN Unavailable PROBLEMS Type Condition ICD9-CM Code AWM81-EB Code Onset Dates Condition Status SNOMED Code Problem Mood disorder F39 Active 18061349 Problem Shoulder pain, right M25.511 Active 96121087 Problem Acquired hypothyroidism E03.9 Active 440145289 Problem Low back pain M54.5 Active 229684097 Problem Cervical radiculopathy M54.12 Active 97244828 Problem History of urethral stricture Z87.448 Active 897979556 Problem Diabetes type 2, uncontrolled E11.65 Active 872855516 Problem Hypertension, benign I10 Active 57039276 Problem Controlled type 2 diabetes mellitus without complication, without long -term current use of insulin E11.9 Active 532279268 Problem Diabetes type 2, controlled E11.9 Active 87351156 ALLERGIES No Information ENCOUNTERS Encounter Location Date Diagnosis [place] [id number] [place] [address] 57953- 0746 Jun, [place] [address] [place] [id number] [place] [address] 90004- 5261 Jun, Controlled type 2 diabetes mellitus without complication, without long-term current use of insulin E11.9 [facility] [id number] [place] [address] 66947- 9767 19 May, 2017 [place] [address] [place] [id number] [place] [address] 35637- 9287 16 May, 2017 Radiculopathy of cervical region M54.12 [place] [address] [place] [id number] [place] [address] 52521- 9976 14 May, 2017 Controlled type 2 diabetes mellitus without complication, without long-term current use of insulin E11.9 [facility] [address] [address] 5846 May, [facility] [id number] [place] [address] 28960- 0760 May, Controlled type 2 diabetes mellitus without complication, without long-term current use of insulin E11.9 [facility] [id number] [place] [address] 88051- 7379 May, Controlled type 2 diabetes mellitus without complication, without long-term current use of insulin E11.9 [facility] [address] [address] 4150 May, Controlled type 2 diabetes mellitus without complication, without long-term current use of insulin E11.9 [facility] [id number] [place] [address] 09741- 7846 Apr, [facility] [address] [place] [id number] [place] [address] 66789- 1770 Apr, Controlled type 2 diabetes mellitus without complication, without long-term current use of insulin E11.9 [place] [address] [address]- 1508 Apr, [facility] [address] [address]- 2982 Apr, Controlled type 2 diabetes mellitus without complication, without long-term current use of insulin E11.9 [facility] [address] [address] 5559 Mar, [facility] [address] [address]- 5394 Mar, Radiculopathy of cervical region M54.12 [facility] [address] [address]- 7104 Mar, Controlled type 2 diabetes mellitus without complication, without long-term current use of insulin E11.9 [facility] [id number] [place] [address] 61370- 5527 Feb, Cervical radiculopathy M54.12 ; Acute cystitis without hematuria N30.00 and History of urethral stricture Z87.448 [facility] [address] [place] [id number] [place] [address] 23973- 5499 Feb, Controlled type 2 diabetes mellitus without complication, without long-term current use of insulin E11.9 [facility] [address] 22154- 6320 Feb, [place] [address] 24219- 2489 Jan, Diabetes type 2, uncontrolled E11.65 [place] [address] 27717- 7984 Jan, [place] [address] [place] [id number] [place] [address] 60612- 9661 Jan, Controlled type 2 diabetes mellitus without complication, without long-term current use of insulin E11.9 ; Chest wall pain R07.89 and Thoracic spine pain M54.6 [place] [address] [place] [id number] [place] [address] 77831- 2596 Dec, [facility] [address] [place] [id number] [place] [address] 08545- 1920 Dec, [place] [address] [place] [id number] [place] [address] 99684- 0615 Nov, [facility] [address] [place] [id number] [place] [address] 63351- 2433 Nov, [facility] [address] [place] [id number] [place] [address] 95709 -1319 Nov, Trichomonas exposure Z20.2 [facility] [address] [place] [id number] [place] [address] 12728- 4622 Oct, [place] [address] [place] [id number] [place] [address] 36387- 7926 Oct, [facility] [address] [id number] [place] [address]- 6987 Oct, [facility] [address] [id number] [place] [address]- 8904 Oct, [facility] [place] [facility] [address] [id number] [place] [address]- 2265 Sep, [facility] [address] [id number] [place] [address]- 8683 Sep, [facility] [address] [id number] [place] [address]- 2053 Aug, [facility] [address] [id number] [place] [address]- 6359 Aug, [facility] [address] [id number] [place] [address]- 7279 Aug, [facility] [address] [id number] [place] [address]- 1082 Aug, [facility] [address] [id number] [place] [address]- 3948 July, Diabetes type 2, controlled E11.9 [facility] [address] [id number] [place] [address]- 9054 July, [facility] [address] [id number] [place] [address]- 2101 July, [facility] [place] [facility] [address] [id number] [place] [address]- 7405 July, [facility] [place] [facility] [address] [id number] [place] [address]- 5901 July, [facility] [address] [id number] [place] [address]- 4860 Jun, [facility] [place] [facility] [address] [id number] [place] [address]- 2464 Jun, [facility] [address] [place] [id number] [address]- 2564 May, [facility] [address] [facility] [id number] [address]- 6628 May, [facility] [address] [address] [id number] [address]- 1081 May, [facility] [address], [place] [address]- 2239 May, Controlled type 2 diabetes mellitus without complication, without long-term current use of insulin E11.9 [facility] [address] [facility] [id number] [place] [address]- 6034 Apr, [facility] [address] [place] [id number] [place] [address] 19586- 1465 Apr, [facility] [address] [address]- 4266 Mar, [facility] [address], [place] [address]- 9701 Mar, [facility] [address], [place] [address]- 4897 Feb, [facility] [address], [place] [address]- 0287 Feb, [facility] [address], [place] [address]- 1419 Jan, [facility] [place] [facility] [address] [address] [id number] [address]- 0912 Jan, [facility] [place] [facility] [address] [facility] [id number] [address]- 9438 Jan, [facility] [place] [facility] [address] [address] [id number] [address]- 9744 Dec, [facility] [place] [facility] [address] [address] [id number] 7608 Dec, [facility] [address], [place] [address]- 5096 Dec, [facility] [address], [place] [address]- 6232 29 Nov, 2015 Diabetes type 2, uncontrolled E11.65 [facility] [address] [place] [id number] [address]- 4183 14 Nov, 2015 [facility] [address] [place] [id number] [place] [address] 28243- 7967 09 Nov, 2015 [facility] [id number] [place] [address] 66580- 5777 Oct, [facility] [address] [place] [id number] [place] [address] 77504- 1316 Oct, [facility] [address] [place] [id number] [place] [address] 16341- 9961 Sep, Controlled type 2 diabetes mellitus without complication, without long-term current use of insulin E11.9 [facility] [address], [place] [address]- 4962 Sep, [facility] [address] [place] [id number] [place] [address] 45721- 2470 Sep, [facility] [address], [place] [address]- 1017 Sep, [facility] [address], [place] [address]- 0288 Sep, [facility] [address], [place] [address]- 4424 Aug, Diabetes type 2, controlled E11.9 ; Anxiety F41.9 ; Carpal tunnel syndrome, left upper limb G56.02 and Carpal tunnel syndrome, right upper limb G56.01 [facility] [address], [place] [address]- 3544 13 Aug, 2015 Urethritis N34.2 [facility] [address] [place] [id number] [place] [address] 33745- 7246 Aug, [facility] [address] [facility] [id number], [place] [address]- 1166 July, Genital warts A63.0 [facility] [address] [place] [id number] [address]- 4006 July, [facility] [address], [place] [address]- 7636 July, Genital warts A63.0 [facility] [address] [facility] [id number], [place] [address]- 3356 July, Anxiety F41.9 [facility] [id number] [place] [address] 20578- 4176 Jun, Genital warts A63.0 [facility] [address], [place] [address]- 8256 Jun, Anxiety F41.9 [facility] [address], [place] [address]- 1810 May, Genital warts A63.0 and Diabetes type 2, uncontrolled E11.65 [facility] [address], [place] [address]- 0386 May, [facility] [address], [place] [address]- 6214 May, [facility] [address], [place] [address]- 3136 Apr, [facility] [address] [facility] [id number], [place] [address]- 2546 Apr, [facility] [address], [place] [address]- 7826 Apr, Diabetes type 2, controlled E11.9 [facility] [address], [place] [address]- 5116 Apr, Genital warts A63.0 [facility] [address] [place] [id number] [address]- 0108 Apr, [facility] [address] [place] [id number] [place] [address] 26976- 2714 Apr, Diabetes type 2, uncontrolled E11.65 and Genital warts A63.0 [facility] [address] [place] [id number] [place] [address] 99264- 1325 Apr, [facility] [address] [place] [id number] [place] [address] 91435- 2085 Mar, [facility] [address] [place] [address] 80288- 4387 Mar, [facility] [address] [place] [id number] [place] [address] 94030- 9477 Mar, Family history of diabetes mellitus V18.0 and Weight loss R63.4 [facility] [address] [place] [id number] [place] [address] 70092- 3090 Mar, Genital warts A63.0 and Family history of diabetes mellitus V18.0 [facility] [address] [place] [address] 36441- 8127 Feb, [facility] [address] [place] [address] 65505- 2542 Jan, [facility] [address] [place] [address] 16161- 0207 Jan, Perianal venereal warts A63.0 [facility] [address] [place] [address] 86989- 2835 Jan, Urethritis N34.2 and Anxiety F41.9 [facility] [address] [place] [id number] [place] [address] 34774- 8773 Jan, [facility] [address] [place] [address] 00528- 7379 Jan, Urinary tract infection, site unspecified N39.0 [facility] [address] [place] [id number] [place] [address] 17687- 6641 Jan, [place] [address] [place] [id number] [place] [address] 89808- 3798 Dec, [place] [address] [place] [id number] [place] [address] 28766558- 1251 Dec, HPV (human papilloma virus) anogenital infection A63.0 ; Anxiety F41.9 and Gastroesophageal reflux disease without esophagitis K21.9 [place] [address] [place] [id number] [place] [address] 27404- 1098 Sep, Blood in stool 578.1 [place] [address] 19215- 6556 Aug, Blood in stool 578.1 [place] [address] [place] [id number] [place] [address] 17055- 9928 Aug, Anxiety 300.00 and Blood in stool 578.1 [place] [address] [place] [id number] [place] [address] 69012- 5078 July, [place] [id number] [place] [address] 87506- 9423 July, Family history of diabetes mellitus V18.0 [place] [id number] [place] [address] 57340- 2681 July, Family history of diabetes mellitus V18.0 ; Family history of thyroid disease V18.19 ; Polyuria 788.42 ; Polydipsia 783.5 ; Alopecia 704.00 and Fatigue 780.79 [place] [address] [place] [id number] [place] [address] 64702- 3259 Jun, [address] 533717- 8426 Jun, [place] [address] [place] [id number] [place] [address] 66447- 4841 Mar, [place] [address] [place] [id number] [place] [address]- 2519 Mar, [facility] [place] [facility] [address] [id number] [place] [address]- 8177 Mar, [facility] [place] [facility] [address] [id number] [place] [address]- 8756 Mar, [facility] [place] [facility] [address] [id number] [place] [address]- 9743 Mar, [facility] [place] [facility] [address] [id number] [place] [address]- 3224 Mar, [facility] [place] [facility] [address] [id number] [place] [address]- 4165 Mar, [facility] [place] [facility] [address] [id number] [place] [address]- 0333 Mar, [facility] [place] [facility] [address] [id number] [place] [address]- 1756 Mar, [facility] [place] [facility] [address] [id number] [place] [address]- 6316 Mar, [facility] [place] [facility] [address] [id number] [place] [address]- 0081 Feb, [facility] [place] [facility] [address] [id number] [place] [address]- 5695 Feb, [facility] [place] [facility] [address] [id number] [place] [address]- 4768 Jan, [facility] [place] [facility] [address] [id number] [place] [address]- 9301 Jan, [facility] [place] [facility] [address] [id number] [place] [address]- 3933 Jan, [facility] [place] [facility] [address] [id number] [place] [address]- 9927 Jan, [facility] [place] [facility] [address] [id number] [place] [address]- 0822 Dec, [facility] [place] [facility] [address] [id number] [place] [address]- 4951 Dec, [facility] [place] [facility] [address] [id number] [place] [address]- 9959 Nov, [facility] [place] [facility] [address] [id number] [place] [address]- 1042 Nov, [facility] [place] [facility] [address] [id number] [place] [address]- 6046 Oct, [facility] [place] [facility] [address] [id number] [place] [address]- 9799 Oct, [facility] [place] [facility] [address] [id number] [place] [address]- 2265 Oct, [facility] [place] [facility] [address] [id number] [place] [address]- 2429 Oct, [facility] [place] [facility] [address] [id number] [place] [address]- 5356 Oct, [facility] [place] [facility] [address] [id number] [place] [address]- 1298 Oct, [facility] [place] [facility] [address] [id number] [place] [address]- 8657 Oct, [facility] [place] [facility] [address] [id number] [place] [address]- 2458 Oct, [facility] [place] [facility] [address] [id number] [place] [address]- 4624 Sep, [facility] [place] [facility] [address] [id number] [place] [address]- 9388 Sep, [facility] [place] [facility] [address] [id number] [place] [address]- 4180 Sep, [facility] [place] [facility] [address] [id number] [place] [address]- 6844 Sep, [facility] [place] [facility] [address] [id number] [place] [address]- 8026 Aug, [facility] [place] [facility] [address] [id number] [place] [address]- 5593 Aug, [facility] [place] [facility] [address] [id number] [place] [address]- 2322 Aug, [facility] [place] [facility] [address] [id number] [place] [address]- 8792 Aug, [facility] [place] [facility] [address] [id number] [place] [address]- 1061 July, [facility] [place] [facility] [address] [id number] [place] [address]- 2687 July, [facility] [place] [facility] [address] [id number] [place] [address]- 1647 July, [facility] [place] [facility] [address] [id number] [place] [address]- 9823 July, [facility] [place] [facility] [address] [id number] [place] [address] July, [facility] [place] [facility] [address] [id number] [place] [address] July, [facility] [place] [facility] [address] [id number] [place] [address] Jun, [facility] [place] [facility] [address] [id number] [place] [address] Jun, [facility] [place] [facility] [address] [id number] [place] [address] Jun, [facility] [place] [facility] [address] [id number] [place] [address] Jun, [facility] [place] [facility] [address] [id number] [place] [address] Jun, [facility] [place] [facility] [address] [id number] [place] [address] Jun, [facility] [place] [facility] [address] [id number] [place] [address] 14 Jun, 2013 [facility] [place] [facility] [address] [id number] [place] [address] 14 Jun, 2013 [facility] [place] [facility] [address] [id number] [place] [address] 19 May, 2013 [facility] [place] [facility] [address] [id number] [place] [address] May, [facility] [place] [facility] [address] [id number] [place] [address] May, [facility] [place] [facility] [address] [id number] [place] [address] Apr, [facility] [place] [facility] [address] [id number] [place] [address] Apr, [facility] [place] [facility] [address] [id number] [place] [address] Apr, [facility] [place] [facility] [address] [id number] [place] [address] Apr, [facility] [place] [facility] [address] [id number] [place] [address] Mar, [facility] [place] [facility] [address] [id number] [place] [address] Mar, [facility] [place] [facility] [address] [id number] [place] [address] Mar, [facility] [place] [facility] [address] [id number] [place] [address] Mar, [facility] [place] [facility] [address] [id number] [place] [address] Mar, [facility] [place] [facility] [address] [id number] [place] [address] Mar, [facility] [place] [facility] [address] [id number] [place] [address] Feb, [facility] [place] [facility] [address] [id number] [place] [address] Feb, [facility] [place] [facility] [address] [id number] [place] [address] Jan, [facility] [place] [facility] [address] [facility] [id number] [place] [address] Jan, [facility] [place] [facility] [address] [id number] [place] [address] Jan, [facility] [place] [facility] [address] [id number] [place] [address]- [address] Jan, [facility] [place] [facility] [address] [id number] [place] [address] Jan, [facility] [place] [facility] [address] [id number] [place] [address] Jan, [facility] [place] [facility] [address] [id number], [place] [address] Jan, [facility] [place] [facility] [address] [id number] [place] [address] Dec, [facility] [place] [facility] [address] [id number] [place] [address] Dec, [facility] [place] [facility] [address] [id number], [place] [address] Nov, [facility] [place] [facility] [address] [id number], [place] [address] Nov, [facility] [place] [facility] [address] [id number] [place] [address] Nov, [facility] [place] [facility] [address] [id number], [place] [address] Oct, [facility] [place] [facility] [address] [id number] [place] [address] Oct, [facility] [place] [facility] [address] [id number] [place] [address] Oct, [facility] [address] [id number] [place] [address] Oct, [facility] [address] [id number] [place] [address] Sep, [facility] [address] [id number] [place] [address] Sep, [facility] [address] [id number] [place] [address] Aug, [facility] [address] [id number] [place] [address] Aug, [facility] [address] [id number] [place] [address] Aug, [facility] [address] [id number] [place] [address] Aug, [facility] [address] [id number] [place] [address] July, [facility] [address] [id number] [place] [address] July, [facility] [address] [id number] [place] [address] July, [facility] [address] [id number] [place] [address] July, [facility] [address] [id number] [place] [address] Jun, [facility] [place] [facility] [address] [id number] [place] [address] Jun, [facility] [place] [facility] [address] [id number] [place] [address] Feb, [facility] [address] [id number] [place] [address] Feb, [facility] [address] [facility] [id number] [place] [address] Mar, IMMUNIZATIONS No Known Immunizations SOCIAL HISTORY Never Assessed REASON FOR VISIT Controlled Med Refill 11/18/2016 PLAN OF CARE VITAL SIGNS MEDICATIONS Medication Instructions Dosage Frequency Start Date End Date Duration Status Tramadol HCl 50 MG Orally every 6 hrs 1 tablet as [...]
--- OUTSIDE RECORDS SUMMARY | 2017-10-18 09:16 | XMS REPORT ---
Author MIRELLA Aranda Organization [employer] Address Unknown Phone Unavailable Care Team Providers Care Saturation Equipment Operator Name Role Phone MIRELLA MARIA CP Unavailable Allergies No Known Allergies Problems Problem Type Condition Code Onset Dates Condition Status Problem Diabetes type 2, uncontrolled E11.65 Active Problem Shoulder pain, right M25.511 Active Problem Diabetes type 2, controlled E11.9 Active Problem Acquired hypothyroidism E03.9 Active Problem Hypertension, benign I10 Active Problem Mood disorder F39 Active Problem Low back pain M54.5 Active Medications Medication Code System Code Instructions Start Date End Date Status Dosage Tramadol HCl [facility] [address]-50 50 mg Orally every 6 hrs June 03, 2015 1 tablet as needed Actos [facility] [address]-46 15 MG Orally Once a day June 03, 2015 1 tablet Metformin HCl [facility] 42145729903 1000 MG 1 tablet with meals Twice a day Orally 30 day(s) Results No Known Results Summary Purpose [employer] Submission
--- OUTSIDE RECORDS SUMMARY | 2017-10-18 09:16 | XMS REPORT ---
Author Author GERALDO SHERMAN [facility] [employer] Address Unknown Phone Unavailable Care Team Providers Care Fitter'S Assistant Name Role Phone GERALDO SHERMAN CP Unavailable Allergies, Adverse Reactions, Alerts Substance Reaction Event Type N.K.D.A. Info Not Available Non Drug Allergy Problems Problem Type Condition Code Onset Dates Condition Status Problem Mood disorder F39 Active Problem Low back pain M54.5 Active Problem Shoulder pain, right M25.511 Active Assessment Urinary tract infection, site unspecified N39.0 Active Problem Acquired hypothyroidism E03.9 Active Problem Hypertension, benign I10 Active Medications Medication Code System Code Instructions Start Date End Date Status Dosage Ativan [facility] [address]-42 0.5 MG Orally Twice a day Jan 10, 2015 1 tablet as needed Pantoprazole Sodium [facility] [address]-01 40 MG Orally Once a day Jan 10, 2015 1 tablet Procedures Procedure Coding System Code Date Office Visit, Est Pt., Level 3 CPT-4 80602 Feb 03, 2015 Vital Signs Date/Time: Feb 03, 2015 Temperature 98.8 F Weight 217.8 lbs Height 68 in BMI 33.11 Index Blood Pressure Diastolic 98 mmHg Blood Pressure Systolic 140 mmHg Cardiac Monitoring Heart Rate 84 bpm Results No Known Results Summary Purpose [employer] Submission
--- OUTSIDE RECORDS SUMMARY | 2017-10-18 09:16 | XMS REPORT ---
Author MIRELLA Aranda Organization [employer] Address Unknown Phone Unavailable Care Team Providers Care Sample Paster Name Role Phone MIRELLA MARIA CP Unavailable [...] Instructions Start Date End Date Status Dosage Metformin HCl [facility] 89608306960 1000 MG 1 tablet with meals Twice a day Orally 30 day(s) Results No Known Results Summary Purpose [employer]Works Submission
--- OUTSIDE RECORDS SUMMARY | 2017-10-18 09:16 | XMS REPORT ---
Author Author MIRELLA MARIA Organization [employer] Address Unknown Phone Unavailable Care Team Providers Care Box Folding Machine Operator Name Role Phone MIRELLA MARIA CP Unavailable Allergies No Known Allergies Problems Problem Type Condition Code Onset Dates Condition Status Problem Unspecified hypothyroidism 244.9 Active Problem Other specified visual disturbances 368.8 Active Problem Contact with or exposure to unspecified communicable disease V01.9 Active Problem Essential hypertension, benign 401.1 Active Problem Sprain and strain of unspecified site of knee and leg 844.9 Active Problem Unspecified nongonococcal urethritis (MASOOD) 099.40 Active Problem Pain in joint, shoulder region 719.41 Active Problem Lumbago 724.2 Active Problem Other chronic pain 338.29 Active Problem Unspecified urethral stricture 598.9 Active Problem Anxiety state, unspecified 300.00 Active Medications Medication Code System Code Instructions Start Date End Date Status Dosage Ativan [facility] [address]-56 0.5 MG Orally Twice a day Jan 10, 2015 1 tablet as needed Results No Known Results Summary Purpose [employer] Submission
--- OUTSIDE RECORDS SUMMARY | 2017-10-18 09:16 | XMS REPORT ---
Author Author MIRELLA MARIA Organization [employer] Address Unknown Phone Unavailable Care Team Providers Care Janitor And Cleaner Name Role Phone MIRELLA MARIA CP Unavailable [...] Date End Date Status Dosage Tramadol HCl [facility] [address]-19 50 mg Orally every 6 hrs June 03, 2015 1 tablet as needed Results No Known Results Summary Purpose eClinicalWorks Submission
--- OUTSIDE RECORDS SUMMARY | 2017-10-18 09:17 | XMS REPORT ---
Author Author GERALDO SHERMAN Organization [facility] Address [address] [place] [address] Care Team Providers Care Couples Therapist Name Role Phone GERALDO SHERMAN Unavailable PROBLEMS Type Condition ICD9-CM Code JLD28-[place] Code Onset Dates Condition Status SNOMED Code Problem Mood disorder F39 Active 02407026 Problem Shoulder pain, right M25.511 Active 02525063 Problem Acquired hypothyroidism E03.9 Active 845087270 Problem Low back pain M54.5 Active 061721658 Problem Cervical radiculopathy M54.12 Active 87437623 Problem History of urethral stricture Z87.448 Active 363164022 Problem Diabetes type 2, uncontrolled E11.65 Active 692924289 Problem Hypertension, benign I10 Active 20656068 Problem Controlled type 2 diabetes mellitus without complication, without long -term current use of insulin E11.9 Active 827957576 Problem Diabetes type 2, controlled E11.9 Active [id number] ALLERGIES No Information ENCOUNTERS Encounter Location Date Diagnosis [place] [id number] [place] [address] 25539- 6446 Jun, [place] [address] [place] [id number] [place] [address] 04219- 1526 Jun, Controlled type 2 diabetes mellitus without complication, without long-term current use of insulin E11.9 [facility] [id number] [place] [address] 35882- 8553 19 May, 2017 [place] [address] [place] [id number] [place] [address] 10855- 1554 16 May, 2017 Radiculopathy of cervical region M54.12 [place] [address] [place] [id number] [place] [address] 83818- 6601 14 May, 2017 Controlled type 2 diabetes mellitus without complication, without long-term current use of insulin E11.9 [facility] [address] [address] 6295 May, [facility] [id number] [place] [address] 18127- 4287 May, Controlled type 2 diabetes mellitus without complication, without long-term current use of insulin E11.9 [facility] [id number] [place] [address] 29692- 0189 May, Controlled type 2 diabetes mellitus without complication, without long-term current use of insulin E11.9 [facility] [address] [address] 8031 May, Controlled type 2 diabetes mellitus without complication, without long-term current use of insulin E11.9 [facility] [id number] [place] [address] 20896- 0804 Apr, [facility] [address] [place] [id number] [place] [address] 08793- 3972 Apr, Controlled type 2 diabetes mellitus without complication, without long-term current use of insulin E11.9 [place] [address] [address]- 0718 Apr, [facility] [address] [address]- 6211 Apr, Controlled type 2 diabetes mellitus without complication, without long-term current use of insulin E11.9 [facility] [address] [address]- 1322 Mar, [facility] [address] [address]- 9081 Mar, Radiculopathy of cervical region M54.12 [facility] [address] [address]- 7587 Mar, Controlled type 2 diabetes mellitus without complication, without long-term current use of insulin E11.9 [facility] [id number] [place] [address] 17324- 3604 Feb, Cervical radiculopathy M54.12 ; Acute cystitis without hematuria N30.00 and History of urethral stricture Z87.448 [facility] [address] [place] [id number] [place] [address] 08942- 6041 Feb, Controlled type 2 diabetes mellitus without complication, without long-term current use of insulin E11.9 [facility] [address] 74287- 8375 Feb, [place] [address] 31339- 7322 Jan, Diabetes type 2, uncontrolled E11.65 [place] [address] 31299- 8712 Jan, [place] [address] [place] [id number] [place] [address] 72785- 5041 Jan, Controlled type 2 diabetes mellitus without complication, without long-term current use of insulin E11.9 ; Chest wall pain R07.89 and Thoracic spine pain M54.6 [place] [address] [place] [id number] [place] [address] 03575- 6229 Dec, [facility] [address] [place] [id number] [place] [address] 89094- 8318 Dec, [place] [address] [place] [id number] [place] [address] 23717- 9097 Nov, [facility] [address] [place] [id number] [place] [address] 26026- 1079 Nov, [facility] [address] [place] [id number] [place] [address] 87980 -2442 Nov, Trichomonas exposure Z20.2 [facility] [address] [place] [id number] [place] [address] 97475- 1607 Oct, [place] [address] [place] [id number] [place] [address] 51805- 7899 Oct, [facility] [address] [id number] [place] [address]- 4638 Oct, [facility] [address] [id number] [place] [address]- 6667 Oct, [facility] [place] [facility] [address] [id number] [place] [address]- 5459 Sep, [facility] [address] [id number] [place] [address]- 5468 Sep, [facility] [address] [id number] [place] [address]- 6872 Aug, [facility] [address] [id number] [place] [address]- 3372 Aug, [facility] [address] [id number] [place] [address]- 4103 Aug, [facility] [address] [id number] [place] [address]- 7916 Aug, [facility] [address] [id number] [place] [address]- 4352 July, Diabetes type 2, controlled E11.9 [facility] [address] [id number] [place] [address]- 4614 July, [facility] [address] [id number] [place] [address]- 8662 July, [facility] [place] [facility] [address] [id number] [place] [address]- 8780 July, [facility] [place] [facility] [address] [id number] [place] [address]- 8774 July, [facility] [address] [id number] [place] [address]- 0013 Jun, [facility] [place] [facility] [address] [id number] [place] [address]- 9521 Jun, [facility] [address] [place] [id number] [address]- 5521 May, [facility] [address] [facility] [id number] [address]- 8919 May, [facility] [address] [address] [id number] [address]- 6650 May, [facility] [address], [place] [address]- 7481 May, Controlled type 2 diabetes mellitus without complication, without long-term current use of insulin E11.9 [facility] [address] [facility] [id number] [place] [address]- 2204 Apr, [facility] [address] [place] [address] [id number] [place] [address] 51691- 4963 Apr, [facility] [address], [place] [address]- 3411 Mar, [facility] [address], [place] [address]- 6789 Mar, [facility] [address], [place] [address]- 9388 Feb, [facility] [address], [place] [address]- 4029 Feb, [facility] [address] [address]- 9009 Jan, [facility] [place] [facility] [address] [place] [id number] [address]- 4202 Jan, [facility] [place] [facility] [address] [facility] [id number], [place] [address]- 3580 Jan, [facility] [place] [facility] [address] [place] [id number] [address]- 7216 Dec, [facility] [place] [facility] [address] [place] [id number] 1228 Dec, [facility] [address], [place] [address]- 1937 Dec, [facility] [address] [address]- 9040 29 Nov, 2015 Diabetes type 2, uncontrolled E11.65 [facility] [address] [place] [id number] [address]- 4747 14 Nov, 2015 [facility] [address] [place] [id number] [place] [address] 02662- 5341 09 Nov, 2015 [facility] [id number] [place] [address] 87493- 9891 Oct, [facility] [address] [place] [id number] [place] [address] 33971- 0896 Oct, [facility] [address] [place] [id number] [place] [address] 07572- 9160 Sep, Controlled type 2 diabetes mellitus without complication, without long-term current use of insulin E11.9 [facility] [address], [place] [address]- 5320 Sep, [facility] [address] [place] [id number] [place] [address] 02420- 6023 Sep, [facility] [address], [place] [address]- 5214 Sep, [facility] [address], [place] [address]- 4835 Sep, [facility] [address], [place] [address]- 0868 Aug, Diabetes type 2, controlled E11.9 ; Anxiety F41.9 ; Carpal tunnel syndrome, left upper limb G56.02 and Carpal tunnel syndrome, right upper limb G56.01 [facility] [address], [place] [address]- 7496 13 Aug, 2015 Urethritis N34.2 [facility] [address] [place] [id number] [place] [address] 09958- 4501 Aug, [facility] [address] [facility] [id number] [address]- 3046 July, Genital warts A63.0 [facility] [address] [place] [id number] [address]- 8406 July, [facility] [address], [place] [address]- 9396 July, Genital warts A63.0 [facility] [address] [facility] [id number] [address]- 6456 July, Anxiety F41.9 [facility] [id number] [place] [address] 49819- 2396 Jun, Genital warts A63.0 [facility] [address], [place] [address]- 3596 Jun, Anxiety F41.9 [facility] [address], [place] [address]- 4408 May, Genital warts A63.0 and Diabetes type 2, uncontrolled E11.65 [facility] [address], [place] [address]- 5486 May, [facility] [address], [place] [address]- 9355 May, [facility] [address], [place] [address]- 2406 Apr, [facility] [address] [facility] [id number], [place] [address]- 2546 Apr, [facility] [address], [place] [address]- 2016 Apr, Diabetes type 2, controlled E11.9 [facility] [address], [place] [address]- 7236 Apr, Genital warts A63.0 [facility] [address] [place] [id number] [address]- 6563 Apr, [facility] [address] [place] [id number] [place] [address] 62094- 5068 Apr, Diabetes type 2, uncontrolled E11.65 and Genital warts A63.0 [facility] [address] [place] [id number] [place] [address] 55729- 4104 Apr, [facility] [address] [place] [id number] [place] [address] 15649- 8174 Mar, [facility] [id number] [place] [address] 10253- 5459 Mar, [facility] [address] [place] [id number] [place] [address] 41823- 3111 Mar, Family history of diabetes mellitus V18.0 and Weight loss R63.4 [facility] [address] [place] [id number] [place] [address] 13359- 3353 Mar, Genital warts A63.0 and Family history of diabetes mellitus V18.0 [facility] [id number] [place] [address] 08394- 3908 Feb, [facility] [id number] [place] [address] 18597- 4052 Jan, [facility] [id number] [place] [address] 22120- 9487 Jan, Perianal venereal warts A63.0 [facility] [id number] [place] [address] 69863- 4599 Jan, Urethritis N34.2 and Anxiety F41.9 [facility] [address] [place] [id number] [place] [address] 31458- 7207 Jan, [facility] [id number] [place] [address] 49999- 3917 Jan, Urinary tract infection, site unspecified N39.0 [facility] [address] [place] [id number] [place] [address] 18515- 6182 Jan, [place] [address] [place] [id number] [place] [address] 19462- 5563 Dec, [place] [address] [place] [id number] [place] [address] 47029393- 9690 Dec, HPV (human papilloma virus) anogenital infection A63.0 ; Anxiety F41.9 and Gastroesophageal reflux disease without esophagitis K21.9 [place] [address] [place] [id number] [place] [address] 18263- 9651 Sep, Blood in stool 578.1 [place] [address] 74617- 7291 Aug, Blood in stool 578.1 [place] [address] [place] [id number] [place] [address] 16431- 8853 Aug, Anxiety 300.00 and Blood in stool 578.1 [place] [address] [place] [id number] [place] [address] 14551- 6868 July, [place] [id number] [place] [address] 54770- 1546 July, Family history of diabetes mellitus V18.0 [place] [id number] [place] [address] 72602- 2567 July, Family history of diabetes mellitus V18.0 ; Family history of thyroid disease V18.19 ; Polyuria 788.42 ; Polydipsia 783.5 ; Alopecia 704.00 and Fatigue 780.79 [place] [address] [place] [id number] [place] [address] 39480- 5101 Jun, [address] 570994- 6812 Jun, [place] [address] [place] [id number] [place] [address] 98453- 5807 Mar, [place] [address] [place] [id number] [address]- 8295 Mar, [facility] [place] [facility] [address] [id number] [place] [address]- 5162 Mar, [facility] [place] [facility] [address] [id number] [place] [address]- 6176 Mar, [facility] [place] [facility] [address] [id number] [place] [address]- 8540 Mar, [facility] [place] [facility] [address] [id number] [place] [address]- 3463 Mar, [facility] [place] [facility] [address] [id number] [place] [address]- 1561 Mar, [facility] [place] [facility] [address] [id number] [place] [address]- 3230 Mar, [facility] [place] [facility] [address] [id number] [place] [address]- 9503 Mar, [facility] [place] [facility] [address] [id number] [place] [address]- 3561 Mar, [facility] [place] [facility] [address] [id number] [place] [address]- 1503 Feb, [facility] [place] [facility] [address] [id number] [place] [address]- 0150 Feb, [facility] [place] [facility] [address] [id number] [place] [address]- 8051 Jan, [facility] [place] [facility] [address] [id number] [place] [address]- 4651 Jan, [facility] [place] [facility] [address] [id number] [place] [address]- 5270 Jan, [facility] [place] [facility] [address] [id number] [place] [address]- 4528 Jan, [facility] [place] [facility] [address] [id number] [place] [address]- 3959 Dec, [facility] [place] [facility] [address] [id number] [place] [address]- 6108 Dec, [facility] [place] [facility] [address] [id number] [place] [address]- 0623 Nov, [facility] [place] [facility] [address] [id number] [place] [address]- 5997 Nov, [facility] [place] [facility] [address] [id number] [place] [address]- 1015 Oct, [facility] [place] [facility] [address] [id number] [place] [address]- 1290 Oct, [facility] [place] [facility] [address] [id number] [place] [address]- 7341 Oct, [facility] [place] [facility] [address] [id number] [place] [address]- 0811 Oct, [facility] [place] [facility] [address] [id number] [place] [address]- 4136 Oct, [facility] [place] [facility] [address] [id number] [place] [address]- 0111 Oct, [facility] [place] [facility] [address] [id number] [place] [address]- 6765 Oct, [facility] [place] [facility] [address] [id number] [place] [address]- 8850 Oct, [facility] [place] [facility] [address] [id number] [place] [address]- 9063 Sep, [facility] [place] [facility] [address] [id number] [place] [address]- 8849 Sep, [facility] [place] [facility] [address] [id number] [place] [address]- 3575 Sep, [facility] [place] [facility] [address] [id number] [place] [address]- 0092 Sep, [facility] [place] [facility] [address] [id number] [place] [address]- 1869 Aug, [facility] [place] [facility] [address] [id number] [place] [address]- 5655 Aug, [facility] [place] [facility] [address] [id number] [place] [address]- 9052 Aug, [facility] [place] [facility] [address] [id number] [place] [address]- 7556 Aug, [facility] [place] [facility] [address] [id number] [place] [address]- 3380 July, [facility] [place] [facility] [address] [id number] [place] [address]- 9624 July, [facility] [place] [facility] [address] [id number] [place] [address]- 6087 July, [facility] [place] [facility] [address] [id number] [place] [address]- 8029 July, [facility] [place] [facility] [address] [id number] [place] [address]- 1880 July, [facility] [place] [facility] [address] [id number] [place] [address]- 5443 July, [facility] [place] [facility] [address] [id number] [place] [address]- 9167 Jun, [facility] [place] [facility] [address] [id number] [place] [address]- 8401 Jun, [facility] [place] [facility] [address] [id number] [place] [address]- 7124 Jun, [facility] [place] [facility] [address] [id number] [place] [address]- 6413 Jun, [facility] [place] [facility] [address] [id number] [place] [address]- 3848 Jun, [facility] [place] [facility] [address] [id number] [place] [address]- 8322 Jun, [facility] [place] [facility] [address] [id number] [place] [address]- 6915 14 Jun, 2013 [facility] [place] [facility] [address] [id number] [place] [address]- 5093 14 Jun, 2013 [facility] [place] [facility] [address] [id number] [place] [address]- 3872 19 May, 2013 [facility] [place] [facility] [address] [id number] [place] [address]- 3861 May, [facility] [place] [facility] [address] [id number] [place] [address]- 4034 May, [facility] [place] [facility] [address] [id number] [place] [address]- 5554 Apr, [facility] [place] [facility] [address] [id number] [place] [address]- 8866 Apr, [facility] [place] [facility] [address] [id number] [place] [address]- 1493 Apr, [facility] [place] [facility] [address] [id number] [place] [address]- 8323 Apr, [facility] [place] [facility] [address] [id number] [place] [address]- 1376 Mar, [facility] [place] [facility] [address] [id number] [place] [address]- 0050 Mar, [facility] [place] [facility] [address] [id number] [place] [address]- 3459 Mar, [facility] [place] [facility] [address] [id number] [place] [address]- 5898 Mar, [facility] [place] [facility] [address] [id number] [place] [address]- 4194 Mar, [facility] [place] [facility] [address] [id number] [place] [address]- 6281 Mar, [facility] [place] [facility] [address] [id number] [place] [address]- 0952 Feb, [facility] [place] [facility] [address] [id number] [place] [address] Feb, [facility] [place] [facility] [address] [id number] [place] [address] Jan, [facility] [place] [facility] [address] [facility] [id number] [place] [address] Jan, [facility] [place] [facility] [address] [id number] [place] [address] Jan, [facility] [place] [facility] [address] [id number] [place] [address] Jan, [facility] [place] [facility] [address] [id number] [place] [address] Jan, [facility] [place] [facility] [address] [id number] [place] [address] Jan, [facility] [place] [facility] [address] [id number], [place] [address] Jan, [facility] [place] [facility] [address] [id number] [place] [address] Dec, [facility] [place] [facility] [address] [id number] [place] [address] Dec, [facility] [place] [facility] [address] [id number][place] [address] Nov, [facility] [place] [facility] [address] [id number], [place] [address] Nov, [facility] [place] [facility] [address] [id number] [place] [address] Nov, [facility] [place] [facility] [address] [id number], [place] [address] Oct, [facility] [place] [facility] [address] [id number] [place] [address] Oct, [facility] [place] [facility] [address] [id number] [place] [address] Oct, [facility] [address] [id number] [place] [address] Oct, [facility] [address] [id number] [place] [address] Sep, [facility] [address] [id number] [place] [address] Sep, [facility] [address] [id number] [place] [address] Aug, [facility] [address] [id number] [place] [address] Aug, [facility] [address] [id number] [place] [address] Aug, [facility] [address] [id number] [place] [address] Aug, [facility] [address] [id number] [place] [address] July, [facility] [address] [id number] [place] [address] July, [facility] [address] [id number] [place] [address] July, [facility] [address] [id number] [place] [address] July, [facility] [address] [id number] [place] [address] Jun, [facility] [place] [facility] [address] [id number] [place] [address] Jun, [facility] [place] [facility] [address] [id number] [place] [address] Feb, [facility] [address] [id number] [place] [address] Feb, [facility] [address] [facility] [id number] [place] [address] Mar, IMMUNIZATIONS No Known Immunizations SOCIAL HISTORY [...]
--- OUTSIDE RECORDS SUMMARY | 2017-10-18 09:17 | XMS REPORT ---
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 Name Role Phone MIRELLA MARIA Unavailable PROBLEMS Type Condition ICD9-CM Code MPB49-TB Code Onset Dates Condition Status SNOMED Code Problem Mood disorder F39 Active 30574707 Problem Shoulder pain, right M25.511 Active 93494165 Problem Acquired hypothyroidism E03.9 Active 453790283 Problem Low back pain M54.5 Active 898512828 Problem Cervical radiculopathy M54.12 Active 38201163 Problem History of urethral stricture Z87.448 Active 664033667 Problem Diabetes type 2, uncontrolled E11.65 Active 321148920 Problem Hypertension, benign I10 Active 14651887 Problem Controlled type 2 diabetes mellitus without complication, without long -term current use of insulin E11.9 Active 681213222 Problem Diabetes type 2, controlled E11.9 Active 55193432 ALLERGIES No Information ENCOUNTERS Encounter Location Date Diagnosis [place] [id number] [place] [address] 74256- 4730 Jun, Controlled type 2 diabetes mellitus without complication, without long-term current use of insulin E11.9 [place] [id number] [place] [address] 56933- 1759 19 May, 2017 [place] [id number] [place] [address] 80765- 2025 16 May, 2017 Radiculopathy of cervical region M54.12 [place] [id number] [place] [address] 56261- 3368 14 May, 2017 Controlled type 2 diabetes mellitus without complication, without long-term current use of insulin E11.9 [place] [id number] [place] [address] 45277- 8732 12 May, 2017 [place] [address] [address]- 0455 May, Controlled type 2 diabetes mellitus without complication, without long-term current use of insulin E11.9 [place] [address] [address]- 4638 May, Controlled type 2 diabetes mellitus without complication, without long-term current use of insulin E11.9 [place] [address] [address]- 3875 May, Controlled type 2 diabetes mellitus without complication, without long-term current use of insulin E11.9 [place] [address] [address]- 7426 Apr, [place] [address] [address]- 2521 Apr, Controlled type 2 diabetes mellitus without complication, without long-term current use of insulin E11.9 [place] [address] [address]- 7131 Apr, [place] [address] [address]- 1577 Apr, Controlled type 2 diabetes mellitus without complication, without long-term current use of insulin E11.9 [place] [address] [address]- 5941 Mar, [place] [address] [address]- 3262 Mar, Radiculopathy of cervical region M54.12 [place] [address] [address]- 8038 Mar, Controlled type 2 diabetes mellitus without complication, without long-term current use of insulin E11.9 [place] [id number] [address]- 7137 Feb, Cervical radiculopathy M54.12 ; Acute cystitis without hematuria N30.00 and History of urethral stricture Z87.448 [facility] [address] [address]- 7991 Feb, Controlled type 2 diabetes mellitus without complication, without long-term current use of insulin E11.9 [facility] [id number] [place] [address] 99185- 4607 Feb, [facility] [id number] [place] [address] 59160- 9210 Jan, Diabetes type 2, uncontrolled E11.65 [facility] [id number] [place] [address] 50229- 4358 Jan, [facility] [id number] [place] [address] 42606- 5949 Jan, Controlled type 2 diabetes mellitus without complication, without long-term current use of insulin E11.9 ; Chest wall pain R07.89 and Thoracic spine pain M54.6 [place] [id number] [place] [address] 00721- 4052 Dec, [facility] [id number] [place] [address] 35625- 8607 Dec, [facility] [id number] [place] [address] 63411- 8975 Nov, [facility] [id number] [place] [address] 36274- 1020 Nov, [facility] [id number] [place] [address] 53311 -3062 Nov, Trichomonas exposure Z20.2 [facility] [id number] [place] [address] 07474- 0734 Oct, [facility] [id number] [place] [address] 55953- 4258 Oct, [facility] [id number] [place] [address] 96527- 7219 Oct, [facility] [id number] [place] [address]- 6273 Oct, [facility] [address] [id number] [place] [address]- 7827 Sep, [facility] [place] [facility] [address] [id number] [place] [address]- 7061 Sep, [facility] [address] [id number] [place] [address]- 6911 Aug, [facility] [place] [facility] [address] [id number] [place] [address]- 0718 Aug, [facility] [address] [id number] [place] [address]- 3584 Aug, [facility] [address] [id number] [place] [address]- 8190 Aug, [facility] [address] [id number] [place] [address]- 6963 July, Diabetes type 2, controlled E11.9 [facility] [address] [id number] [place] [address]- 9565 July, [facility] [address] [facility] [facility] [id number] [place] [address]- 1941 July, [facility] [address] [id number] [place] [address]- 9326 July, [facility] [address] [id number] [place] [address]- 9771 July, [facility] [place] [facility] [address] [id number] [place] [address]- [address] Jun, [facility] [place] [facility] [address] [id number] [place] [address]- [address] Jun, [facility] [place] [facility] [address] [id number] [place] [address]- [address] May, [facility] [place] [facility] [address] [id number] [address]- 8016 May, [facility] [address] [facility] [address] [facility] [id number] [place] [address]- 8662 May, [facility] [id number] [place] [address] 58587- 5986 May, Controlled type 2 diabetes mellitus without complication, without long-term current use of insulin E11.9 [facility] [address] [facility] [address] [facility] [id number] [place] [address], [place] [address]- 6845 Apr, [facility] [address] [facility] [address] [facility] [id number] [place] [address], [place] [address]- 2546 Apr, [facility] [id number] [place] [address], [place] [address]- 7216 Mar, [facility] [id number] [place] [address] 11867- 0359 Mar, [facility] [id number] [place] [address] 89288- 6650 Feb, [facility] [address] [address]- 6312 Feb, [facility] [id number] [place] [address] 080675- 6701 Jan, [facility] [address] [address]- 2908 Jan, [facility] [id number] [address]- 1242 Jan, [facility] [address] [facility] [facility] [id number] [address]- 0026 Dec, [facility] [address] [facility] [facility] [id number] [place] [address], [place] [address]- 3026 Dec, [facility] [id number] [address]- 3100 Dec, [facility] [id number] [place] [address] 84878- 9039 29 Nov, 2015 Diabetes type 2, uncontrolled E11.65 [facility] [address] [address]- 6626 14 Nov, 2015 [facility] [id number] [place] [address] 45074- 7423 09 Nov, 2015 [facility] [id number] [place] [address] 24555- 7450 Oct, [facility] [id number] [place] [address] 44111- 2159 Oct, [facility] [id number] [place] [address] 56779- 7591 Sep, Controlled type 2 diabetes mellitus without complication, without long-term current use of insulin E11.9 [facility] [id number] [place] [address] 64327- 9691 Sep, [facility] [id number] [place] [address] 69214- 1844 Sep, [facility] [id number] [place] [address] 88736- 8384 Sep, [facility] [id number] [place] [address] 60631- 8783 Sep, [facility] [id number] [place] [address] 65462- 0536 Aug, Diabetes type 2, controlled E11.9 ; Anxiety F41.9 ; Carpal tunnel syndrome, left upper limb G56.02 and Carpal tunnel syndrome, right upper limb G56.01 [facility] [address] [address]- 2997 Aug, Urethritis N34.2 [facility] [id number] [place] [address] 97467- 1988 Aug, [facility] [id number] [place] [address] 60109- 1566 July, Genital warts A63.0 [facility] [address] [facility] [address] [facility] [id number] [address]- 4356 July, [facility] [address] [facility] [address] [facility] [id number] [address] 2546 July, Genital warts A63.0 [facility] [address] [address]- 7856 July, Anxiety F41.9 [facility] [id number] [place] [address] 07530 2546 Jun, Genital warts A63.0 [facility] [id number] [place] [address] 21272- 7336 Jun, Anxiety F41.9 [facility] [id number] [place] [address] 88096- 0966 May, Genital warts A63.0 and Diabetes type 2, uncontrolled E11.65 [facility] [address] [address]- 6816 May, [facility] [id number] [place] [address] 32540- 3136 May, [facility] [address] [address]- 5793 Apr, [facility] [address] [address] 2546 Apr, [facility] [address] [address]- 2543 Apr, Diabetes type 2, controlled E11.9 [facility] [address] [address] 2546 Apr, Genital warts A63.0 [facility] [address] [address]- 2546 Apr, [facility] [id number] [place] [address] 75929- 1302 Apr, Diabetes type 2, uncontrolled E11.65 and Genital warts A63.0 [facility] [id number] [place] [address] 23572- 0605 Apr, [facility] [id number] [place] [address] 20666- 5474 Mar, [facility] [id number] [place] [address] 56675- 1637 Mar, [facility] [id number] [place] [address] 10013- 1701 Mar, Family history of diabetes mellitus V18.0 and Weight loss R63.4 [facility] [id number] [place] [address] 23861- 2381 Mar, Genital warts A63.0 and Family history of diabetes mellitus V18.0 [facility] [id number] [place] [address] 18320- 2026 Feb, [facility] [id number] [place] [address] 88709- 5322 Jan, [facility] [id number] [place] [address] 89847- 1754 Jan, Perianal venereal warts A63.0 [facility] [id number] [place] [address] 50912- 0571 Jan, Urethritis N34.2 and Anxiety F41.9 [facility] [id number] [place] [address] 12893- 7294 Jan, [facility] [id number] [place] [address] 81794- 1654 Jan, Urinary tract infection, site unspecified N39.0 [facility] [id number] [place] [address] 95489- 9640 Jan, [facility] [id number] [place] [address] 84420- 7387 Dec, [place] [id number] [place] [address] 27364- 7525 Dec, HPV (human papilloma virus) anogenital infection A63.0 ; Anxiety F41.9 and Gastroesophageal reflux disease without esophagitis K21.9 [place] [id number] [place] [address] 363966- 5066 Sep, Blood in stool 578.1 [place] [address] 46915- 9000 Aug, Blood in stool 578.[address] 647859- 8170 Aug, Anxiety 300.00 and Blood in stool 578.[address] 17186- 2190 July, [address] 23158- 1220 July, Family history of diabetes mellitus V18.[address] 06769- 8165 July, Family history of diabetes mellitus V18.0 ; Family history of thyroid disease V18.19 ; Polyuria 788.42 ; Polydipsia 783.5 ; Alopecia 704.00 and Fatigue 780.79 [place] [id number] [place] [address] 74994- 5054 Jun, [place] [id number] [place] [address] 67117- 9346 Jun, [address] [id number]- 7665 Mar, [place] [id number] [place] [address] 14818- 1097 Mar, [address] 33350- 3615 Mar, [facility] [place] [facility] [address] [id number] [place] [address]- 8670 Mar, [facility] [place] [facility] [address] [id number] [place] [address]- 6371 Mar, [facility] [place] [facility] [address] [id number] [place] [address]- 4812 Mar, [facility] [place] [facility] [address] [id number] [place] [address]- 7098 Mar, [facility] [place] [facility] [address] [id number] [place] [address]- 5123 Mar, [facility] [place] [facility] [address] [id number] [place] [address]- 6434 Mar, [facility] [place] [facility] [address] [id number] [place] [address]- 8129 Mar, [facility] [place] [facility] [address] [id number] [place] [address]- 2554 Feb, [facility] [place] [facility] [address] [id number] [address]- 6729 Feb, [facility] [place] [facility] [address] [id number] [place] [address]- 6265 Jan, [facility] [place] [facility] [address] [id number] [address]- 7997 Jan, [facility] [place] [facility] [address] [id number] [place] [address]- 9615 Jan, [facility] [place] [facility] [address] [id number] [place] [address]- 2531 Jan, [facility] [place] [facility] [address] [id number] [place] [address]- 6748 Dec, [facility] [place] [facility] [address] [id number] [place] [address]- 4288 Dec, [facility] [place] [facility] [address] [id number] [place] [address]- 9350 Nov, [facility] [place] [facility] [address] [id number] [place] [address]- 3599 Nov, [facility] [place] [facility] [address] [id number] [place] [address]- 9628 Oct, [facility] [place] [facility] [address] [id number] [place] [address]- 9929 Oct, [facility] [place] [facility] [address] [id number] [place] [address]- 8156 Oct, [facility] [place] [facility] [address] [id number] [place] [address]- 7486 Oct, [facility] [place] [facility] [address] [id number] [place] [address]- 5773 Oct, [facility] [place] [facility] [address] [id number] [place] [address]- 8012 Oct, [facility] [place] [facility] [address] [id number] [place] [address]- 3001 Oct, [facility] [place] [facility] [address] [id number] [place] [address]- 4981 Oct, [facility] [place] [facility] [address] [id number] [place] [address]- 6542 Sep, [facility] [place] [facility] [address] [id number] [place] [address]- 8075 Sep, [facility] [place] [facility] [address] [id number] [place] [address]- 2315 Sep, [facility] [place] [facility] [address] [id number] [place] [address]- 4764 Sep, [facility] [place] [facility] [address] [id number] [place] [address]- 3056 Aug, [facility] [place] [facility] [address] [id number] [place] [address]- 8912 Aug, [facility] [place] [facility] [address] [id number] [place] [address]- 5815 Aug, [facility] [place] [facility] [address] [id number] [place] [address]- 3145 Aug, [facility] [place] [facility] [address] [id number] [place] [address]- 6199 July, [facility] [place] [facility] [address] [id number] [place] [address]- 1890 July, [facility] [place] [facility] [address] [id number] [place] [address]- 2096 July, [facility] [place] [facility] [address] [id number] [place] [address]- 1298 July, [facility] [place] [facility] [address] [id number] [place] [address]- 3554 July, [facility] [place] [facility] [address] [id number] [place] [address]- 2026 July, [facility] [place] [facility] [address] [id number] [place] [address]- 5163 Jun, [facility] [place] [facility] [address] [id number] [place] [address]- 9813 Jun, [facility] [place] [facility] [address] [id number] [place] [address]- 9637 Jun, [facility] [place] [facility] [address] [id number] [place] [address]- 1361 15 Jun, 2013 [facility] [place] [facility] [address] [id number] [place] [address]- 4165 Jun, [facility] [place] [facility] [address] [id number] [place] [address]- 1655 Jun, [facility] [place] [facility] [address] [id number] [place] [address]- 2402 Jun, [facility] [place] [facility] [address] [id number] [place] [address]- 0332 14 Jun, 2013 [facility] [place] [facility] [address] [id number] [place] [address]- 2032 May, [facility] [place] [facility] [address] [id number] [place] [address]- 4312 May, [facility] [place] [facility] [address] [id number] [place] [address]- 8839 May, [facility] [place] [facility] [address] [id number] [place] [address]- 2277 Apr, [facility] [place] [facility] [address] [id number] [place] [address]- 7075 Apr, [facility] [place] [facility] [address] [id number] [place] [address]- 1711 Apr, [facility] [place] [facility] [address] [id number] [place] [address]- 2622 Apr, [facility] [place] [facility] [address] [id number] [place] [address]- 8893 Mar, [facility] [place] [facility] [address] [id number] [place] [address]- 9946 Mar, [facility] [place] [facility] [address] [id number] [place] [address]- 5977 Mar, [facility] [place] [facility] [address] [id number] [place] [address]- 8319 Mar, [facility] [place] [facility] [address] [id number] [place] [address]- 3897 Mar, [facility] [place] [facility] [address] [id number] [place] [address] Mar, [facility] [place] [facility] [address] [id number] [place] [address] Feb, [facility] [place] [facility] [address] [id number] [place] [address] Feb, [facility] [place] [facility] [address] [id number] [place] [address] Jan, [facility] [place] [facility] [address] [id number] [place] [address] Jan, [facility] [place] [facility] [address] [id number] [place] [address] Jan, [facility] [place] [facility] [address] [id number] [place] [address] Jan, [facility] [place] [facility] [address] [id number] [place] [address] Jan, [facility] [place] [facility] [address] [id number] [place] [address] Jan, [facility] [place] [facility] [address] [id number] [place] [address] Jan, [facility] [place] [facility] [address] [id number] [place] [address] Dec, [facility] [place] [facility] [address] [id number] [place] [address] Dec, [facility] [place] [facility] [address] [id number] [place] [address] Nov, [facility] [place] [facility] [address] [id number] [place] [address] Nov, [facility] [place] [facility] [address] [id number] [place] [address] Nov, [facility] [place] [facility] [address] [id number] [place] [address] Oct, [facility] [place] [facility] [address] [id number] [place] [address] Oct, [facility] [place] [facility] [address] [id number] [place] [address] Oct, [facility] [place] [facility] [address] [id number] [address] Oct, [facility] [address] [id number] [place] [address] Sep, [facility] [address] [id number] [place] [address] Sep, [facility] [address] [facility] [facility] [id number] [place] [address] Aug, [facility] [address] [id number] [address] Aug, [facility] [address] [id number] [place] [address] Aug, [facility] [address] [address] [facility] [id number] [place] [address] Aug, [facility] [address] [address] [facility] [id number] [place] [address] July, [facility] [address] [facility] [id number] [place] [address] July, [facility] [address] [address] [facility] [id number] [place] [address] July, [facility] [address] [address] [facility] [id number] [place] [address] July, [facility] [address] [facility] [id number] [place] [address] Jun, [facility] [address] [facility] [id number] [place] [address] Jun, [facility] [address] [facility] [id number] [place] [address] Feb, [facility] [address] [facility] [id number] [place] [address] Feb, [facility] [address] [facility] [id number] [place] [address] Mar, IMMUNIZATIONS No Known Immunizations SOCIAL HISTORY Never Assessed REASON FOR VISIT Controlled Refill Request 05/05/17 PLAN OF CARE VITAL SIGNS MEDICATIONS Medication [...]
--- OUTSIDE RECORDS SUMMARY | 2017-10-18 09:18 | XMS REPORT ---
Author Author MIRELLA MARIA Organization [facility] Address [address] [place] [address] Care Team Providers Care Telesales Professional Name Role Phone MIRELLA MARIA Unavailable PROBLEMS Type Condition ICD9-CM Code [id number] Code Onset Dates Condition Status SNOMED Code Problem Mood disorder F39 Active 57701471 Problem Low back pain M54.5 Active 776359134 Problem Controlled type 2 diabetes mellitus without complication, without long -term current use of insulin E11.9 Active 403566247 Problem Diabetes type 2, controlled E11.9 Active 98133284 Problem Shoulder pain, right M25.511 Active 48162806 Problem Acquired hypothyroidism E03.9 Active 141237920 Problem Diabetes type 2, uncontrolled E11.65 Active 224557845 Problem Hypertension, benign I10 Active [id number] ALLERGIES No Information SOCIAL HISTORY Never Assessed [...]
--- OUTSIDE RECORDS SUMMARY | 2017-10-18 09:18 | XMS REPORT ---
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
--- OUTSIDE RECORDS SUMMARY | 2017-10-18 09:18 | XMS REPORT ---
Author MIRELLA Aranda Organization [employer] Address Unknown Phone Unavailable Care Team Providers [facility] Guide Name Role Phone MIRELLA MARIA CP Unavailable Allergies No Known Allergies Problems Problem Type Condition Code Onset Dates Condition Status Problem Shoulder pain, right M25.511 Active Problem Mood disorder F39 Active Problem Diabetes type 2, uncontrolled E11.65 Active Problem Hypertension, benign I10 Active Problem Low back pain M54.5 Active Problem Acquired hypothyroidism E03.9 Active Medications No Known Medications Results No Known Results Summary Purpose [employer] Submission
--- OUTSIDE RECORDS SUMMARY | 2017-10-18 09:18 | XMS REPORT ---
Author Author MIRELLA MARIA Organization [facility] Address [address] [place] [address] Care Team Providers Care Sports Reporter Name Role Phone CROW MIRELLA Unavailable PROBLEMS Type Condition ICD9-CM Code [id number] Code Onset Dates Condition Status SNOMED Code Problem Mood disorder F39 Active 74837054 Problem Low back pain M54.5 Active 323841080 Problem Controlled type 2 diabetes mellitus without complication, without long -term current use of insulin E11.9 Active 189089427 Problem Diabetes type 2, controlled E11.9 Active 02842637 Problem Shoulder pain, right M25.511 Active 69996462 Problem Acquired hypothyroidism E03.9 Active 917794474 Problem Diabetes type 2, uncontrolled E11.65 Active 182365841 Problem Hypertension, benign I10 Active 78580574 ALLERGIES No Known Allergies SOCIAL HISTORY Never Assessed PLAN OF CARE Activity Details Follow Up 3 Months Reason: VITAL SIGNS Height 68 in 2016-05-24 Weight 214.2 lbs 2016-05-24 Temperature 98.9 degrees Fahrenheit 2016-05-24 Heart Rate 82 bpm 2016-05-24 Respiratory Rate 18 2016-05-24 BMI 32.57 kg/m2 2016-05-24 Blood pressure systolic 140 mmHg 2016-05-24 Blood pressure diastolic 94 mmHg 2016-05-24 MEDICATIONS Medication Instructions Dosage Frequency Start Date End Date Duration Status Tramadol HCl 50 mg Orally every 6 hrs 1 tablet as needed 6h May, 28 days Active [place] Contour Next Test 1 In Vitro 2 times a day 1 test 12h May, Active Pantoprazole Sodium 40 mg Orally Once a day 1 tablet 24h 30 Active Metformin HCl 1000 MG 1 tablet with meals Twice a day Orally 30 day(s) 30 Active Actos 15 MG Orally Once a day 1 tablet 24h 30 Active Neurontin 300 MG TAKE ONE CAPSULE BY MOUTH THREE TIMES DAILY 30 Active Ativan 1 MG Orally Twice a day 1 tablet as needed 12h Dec, 28 days Active RESULTS Name Result Date Reference Range A1C (IN HOUSE) 2016-05-24 A1C IN HOUSE 7.1 4.3 - 5.6 % Previous A1c 6.2 Lot [id number] Exp date 01/2018 MICROALBUMIN, URINE (IN HOUSE) 2016-05-24 MICROALBUMIN Normal Lot # [id number] Exp date 05/18/2017 Clarity Clear Color Yellow ALB 10 CRE 100 A:C (IN HOUSE) <30 Control Control Lot # Exp date LIPID PANEL 2016-05-24 Cholesterol, Total 174 100-199 Triglycerides 234 0-149 HDL Cholesterol 34 >39 VLDL Cholesterol Adan 47 5-40 LDL Cholesterol Calc 93 0-99 Comment: CMP 2016-05-24 Glucose, Serum 117 65-99 BUN 10 6-20 Creatinine, Serum 0.97 0.76-1.27 eGFR If NonAfricn Am 99 >59 eGFR If Africn Am 114 >59 BUN/Creatinine Ratio 10 8-19 Sodium, Serum 140 134-144 Potassium, Serum 4.1 3.5-5.2 Chloride, Serum 101 96-106 Carbon Dioxide, Total 25 18-29 Calcium, Serum 9.6 8.7-10.2 Protein, Total, Serum 6.9 6.0-8.5 Albumin, Serum 4.7 3.5-5.5 Globulin, Total 2.2 1.5-4.5 A/G Ratio 2.1 1.1-2.5 Bilirubin, Total 0.3 0.0-1.2 Alkaline Phosphatase, S 95 39-117 AST (SGOT) 14 0-40 ALT (SGPT) 13 0-44 CBC 2016-05-24 WBC 10.1 3.4-10.8 RBC 5.10 4.14-5.80 Hemoglobin 15.4 12.6-17.7 Hematocrit 46.7 37.5-51.0 MCV 92 79-97 MCH 30.2 26.6-33.0 MCHC 33.0 31.5-35.7 RDW 13.6 12.3-15.4 Platelets 242 150-379 Neutrophils 59 Lymphs 35 Monocytes 5 Eos 1 Basos 0 Neutrophils (Absolute) 5.9 1.4-7.0 Lymphs (Absolute) 3.5 0.7-3.1 Monocytes(Absolute) 0.5 0.1-0.9 Eos (Absolute) 0.1 0.0-0.4 Baso (Absolute) 0.0 0.0-0.2 Immature Granulocytes 0 Immature Grans (Abs) 0.0 0.0-0.1 PROCEDURES Procedure Date Ordered Result Body Site COMPLETE CBC W/AUTO DIFF WBC May 24, 2016 COMPREHEN METABOLIC PANEL May 24, 2016 VENIPUNCT, ROUTINE* May 24, 2016 GLYCATED HEMOGLOBIN TEST May 24, 2016 LIPID PANEL May 24, 2016 MICROALBUMIN, SEMIQUANT May 24, 2016 IMMUNIZATIONS No Known Immunizations MEDICAL (GENERAL) HISTORY [...]
--- OUTSIDE RECORDS SUMMARY | 2017-10-18 09:18 | XMS REPORT ---
Author Author MIRELLA MARIA [facility] Address [address] [place] [address] Care Team Providers Care Hospital Medicine Director Name Role Phone MIRELLA MARIA Unavailable PROBLEMS Type Condition ICD9-CM Code EHO69-GU Code Onset Dates Condition Status SNOMED Code Problem Hypertension, benign I10 Active 39765108 Problem Diabetes type 2, controlled E11.9 Active 21959818 Problem Diabetes type 2, uncontrolled E11.65 Active 468121616 Problem Low back pain M54.5 Active 985619997 Problem Acquired hypothyroidism E03.9 Active 744488487 Problem Shoulder pain, right M25.511 Active 72163243 Problem Mood disorder F39 Active 11877790 ALLERGIES Unknown Allergies SOCIAL HISTORY No smoking Hx information available PLAN OF CARE VITAL SIGNS MEDICATIONS Medication Instructions Dosage Frequency Start Date End Date Duration Status Tramadol HCl 50 mg Orally every 6 hrs 1 tablet as needed 6h 15 May, 2015 Active RESULTS No Results PROCEDURES No Known procedures IMMUNIZATIONS No Known Immunizations
--- OUTSIDE RECORDS SUMMARY | 2017-10-18 09:18 | XMS REPORT ---
Author MIRELLA Aranda Organization [employer] Address Unknown Phone Unavailable Care Team Providers Care Frame And Scrap Crusher Name Role Phone MIRELLA MARIA CP Unavailable Allergies No Known Allergies Problems Problem Type Condition Code Onset Dates Condition Status Assessment Genital warts A63.0 Active Problem Diabetes type 2, uncontrolled E11.65 Active Problem Shoulder pain, right M25.511 Active Problem Diabetes type 2, controlled E11.9 Active Problem Acquired hypothyroidism E03.9 Active Problem Hypertension, benign I10 Active Problem Mood disorder F39 Active Problem Low back pain M54.5 Active Medications Medication Code System Code Instructions Start Date End Date Status Dosage Tramadol HCl [facility] [id number] 50 mg Orally every 6 hrs June 03, 2015 1 tablet as needed Results No Known Results Summary Purpose [employer] Submission
--- OUTSIDE RECORDS SUMMARY | 2017-10-18 09:19 | XMS REPORT ---
Author Author MIRELLA MARIA Organization [employer] Address Unknown Phone Unavailable Care Team Providers Care Fire Alarm Dispatcher Name Role Phone MIRELLA MARIA CP Unavailable [...] Problem Anxiety state, unspecified 300.00 Active Medications No Known Medications Results No Known Results Summary Purpose [employer] Submission
--- OUTSIDE RECORDS SUMMARY | 2017-10-18 09:19 | XMS REPORT ---
Author Author MIRELLA MARIA Organization [facility] Address [address] [place] [address] Care Team Providers Care Front End Technician Name Role Phone MIRELLA MARIA Unavailable PROBLEMS Type Condition ICD9-CM Code LBL89-GG Code Onset Dates Condition Status SNOMED Code Problem Mood disorder F39 Active 41699590 Problem Shoulder pain, right M25.511 Active 78998203 Problem Acquired hypothyroidism E03.9 Active 207381437 Problem Low back pain M54.5 Active 666920636 Problem Cervical radiculopathy M54.12 Active 41561113 Problem History of urethral stricture Z87.448 Active 163221738 Problem Diabetes type 2, uncontrolled E11.65 Active 138600738 Problem Hypertension, benign I10 Active 18578769 Problem Controlled type 2 diabetes mellitus without complication, without long -term current use of insulin E11.9 Active 237195908 Problem Diabetes type 2, controlled E11.9 Active 46042873 ALLERGIES No Information ENCOUNTERS Encounter Location Date Diagnosis [place] [id number] [place] [address] 11067- 7598 Jun, [place] [address] [place] [id number] [place] [address] 48011- 2789 16 May, 2017 Radiculopathy of cervical region M54.12 [place] [id number] [place] [address] 64111- 8845 14 May, 2017 Controlled type 2 diabetes mellitus without complication, without long-term current use of insulin E11.9 [place] [address] [place] [id number] [place] [address] 98527- 8666 May, [place] [address] [place] [id number] [place] [address] 82905- 7481 12 May, 2017 Controlled type 2 diabetes mellitus without complication, without long-term current use of insulin E11.9 [place] [address] [address] 7412 May, Controlled type 2 diabetes mellitus without complication, without long-term current use of insulin E11.9 [place] [address] [address] 3385 May, Controlled type 2 diabetes mellitus without complication, without long-term current use of insulin E11.9 [place] [address] [address]- 8079 Apr, [place] [address] [address] 0029 Apr, Controlled type 2 diabetes mellitus without complication, without long-term current use of insulin E11.9 [place] [address] [address]- 0689 Apr, [place] [address] [address]- 8047 Apr, Controlled type 2 diabetes mellitus without complication, without long-term current use of insulin E11.9 [place] [address] [address] 4029 Mar, [place] [address] [address]- 6872 Mar, Radiculopathy of cervical region M54.12 [place] [address] [address] 6711 Mar, Controlled type 2 diabetes mellitus without complication, without long-term current use of insulin E11.9 [place] [address] [place] [id number] [address]- 7552 Feb, Cervical radiculopathy M54.12 ; Acute cystitis without hematuria N30.00 and History of urethral stricture Z87.448 [place] [address] [address] 2341 Feb, Controlled type 2 diabetes mellitus without complication, without long-term current use of insulin E11.9 [facility] [address] [place] [address] 74167- 8566 Feb, [facility] [address] [place] [id number] [place] [address] 43389- 4425 Jan, Diabetes type 2, uncontrolled E11.65 [facility] [address] [place] [id number] [place] [address] 92177- 3229 Jan, [facility] [address] [place] [id number] [place] [address] 60940- 2626 Jan, Controlled type 2 diabetes mellitus without complication, without long-term current use of insulin E11.9 ; Chest wall pain R07.89 and Thoracic spine pain M54.6 [facility] [address] [place] [id number] [place] [address] 41594- 6000 Dec, [facility] [address] [place] [id number] [place] [address] 80917- 3194 Dec, [facility] [address] [place] [id number] [place] [address] 48892- 6535 Nov, [facility] [address] [place] [address] [id number] [place] [address] 61593- 6536 Nov, [facility] [address] [place] [address] [id number] [place] [address] 36420 -2361 Nov, Trichomonas exposure Z20.2 [facility] [address] [place] [id number] [place] [address] 02718- 2050 Oct, [facility] [address] [place] [id number] [place] [address] 85877- 7531 Oct, [facility] [address] [place] [address] [id number] [place] [address] 27069- 2438 Oct, [facility] [address] [place] [address] [id number] [place] [address] 14201- 3871 Oct, [facility] [address] [place] [address] [id number] [place] [address] 15353- 8442 Sep, [facility] [address] [id number] [place] [address]- 5912 Sep, [facility] [address] [id number] [place] [address]- 5871 Aug, [facility] [address] [id number] [place] [address] Aug, [facility] [address] [id number] [place] [address]- 5008 Aug, [facility] [address] [id number] [place] [address]- 8904 Aug, [facility] [address] [id number] [place] [address]- 4628 July, Diabetes type 2, controlled E11.9 [facility] [address] [id number] [place] [address]- 5376 July, [facility] [address] [id number] [place] [address]- 2491 July, [facility] [address] [id number] [place] [address]- 7392 July, [facility] [address] [id number] [place] [address]- 2479 July, [facility] [address] [id number] [place] [address]- 9166 Jun, [facility] [place] [facility] [address] [id number] [place] [address]- 9739 Jun, [facility] [place] [facility] [address] [id number] [place] [address]- 5019 May, [facility] [place] [facility] [address] [id number] [place] 4621 May, [facility] [place] [facility] [address] [id number] [place] [address]- 1470 May, [facility] [place] [facility] [address] [address]- 4470 May, Controlled type 2 diabetes mellitus without complication, without long-term current use of insulin E11.9 [facility] [address] [facility] [id number] [address]873 15 Apr, 2016 [facility] [address] [address]- 7411 Apr, [facility] [address] [facility] [id number] [address]- 3370 Mar, [facility] [address] [facility] [id number] [place] [address]- 2303 Mar, [facility] [address] [address]- 8248 Feb, [facility] [address] [address]- 5729 Feb, [facility] [address] [address]- 8834 Jan, [facility] [address] [address]- 6939 Jan, [facility] [address], [place] [address]- 8548 Jan, [facility] [address] [address]- 1296 Dec, [facility] [address] [address]- 8180 Dec, [facility] [address] [address]- 3032 Dec, [facility] [address] [address]- 3544 29 Nov, 2015 Diabetes type 2, uncontrolled E11.65 [facility] [address] [address]- 2831 14 Nov, 2015 [facility] [address], [place] [address]- 6756 Nov, [facility] [address] [place] [address] 50297- 2795 Oct, [facility] [address], [place] [address]- 1761 Oct, [facility] [address] [place] [id number] [place] [address] 42750- 5954 Sep, Controlled type 2 diabetes mellitus without complication, without long-term current use of insulin E11.9 [facility] [address] [place] [id number] [place] [address] 80249- 9608 Sep, [facility] [address] [place] [id number] [place] [address] 98436- 6497 Sep, [facility] [address] [place] [id number] [place] [address] 43580- 6750 Sep, [facility] [address], [place] [address]- 4352 Sep, [facility] [address] [place] [address] 11392- 6575 Aug, Diabetes type 2, controlled E11.9 ; Anxiety F41.9 ; Carpal tunnel syndrome, left upper limb G56.02 and Carpal tunnel syndrome, right upper limb G56.01 [facility] [address], [place] [address]- 6697 Aug, Urethritis N34.2 [facility] [address], [place] [address]- 0129 Aug, [facility] [id number] [address]- 9439 July, Genital warts A63.0 [facility] [address], [place] [address]- 3054 July, [facility] [id number] [address]- 9031 July, Genital warts A63.0 [facility] [address] [place] [id number] [place] [address] 85067- 1707 July, Anxiety F41.9 [facility] [address] [place] [id number] [place] [address] 13439- 3049 Jun, Genital warts A63.0 [facility] [address] [place] [id number] [place] [address] 04894- 3438 Jun, Anxiety F41.9 [facility] [address] [place] [address] 70106- 6331 May, Genital warts A63.0 and Diabetes type 2, uncontrolled E11.65 [facility] [address] [place] [id number] [place] [address] 20566- 8424 May, [facility] [address] [place] [id number] [place] [address] 44922- 7609 May, [facility] [id number] [place] [address] 63660- 5200 Apr, [facility] [id number] [place] [address] 89296- 1514 Apr, [facility] [address] [place] [address] 43944- 4939 Apr, Diabetes type 2, controlled E11.9 [facility] [address] [place] [address] 62663- 5420 Apr, Genital warts A63.0 [facility] [address] [place] [address] 25767- 8859 Apr, [facility] [address] [place] [address] 29929- 3781 Apr, Diabetes type 2, uncontrolled E11.65 and Genital warts A63.0 [facility] [address] [place] [id number] [place] [address] 48729- 0996 Apr, [facility] [address], [place] [address]- 3229 Mar, [facility] [address] [place] [id number] [place] [address] 56779- 5376 Mar, [facility] [address] [place] [id number] [place] [address] 00588- 5918 Mar, Family history of diabetes mellitus V18.0 and Weight loss R63.4 [facility] [address] [place] [address] 65780- 6667 Mar, Genital warts A63.0 and Family history of diabetes mellitus V18.0 [facility] [address] [place] [id number] [place] [address] 17223- 1027 Feb, [facility] [address] [place] [id number] [place] [address] 52627- 9732 Jan, [facility] [address] [place] [id number] [place] [address] 53583- 4082 Jan, Perianal venereal warts A63.0 [facility] [address] [place] [address] 55990- 3056 Jan, Urethritis N34.2 and Anxiety F41.9 [facility] [address] [place] [id number] [place] [address] 42655- 4064 Jan, [facility] [address] [place] [id number] [place] [address] 69120- 5230 Jan, Urinary tract infection, site unspecified N39.0 [facility] [address] [place] [address] 50028- 1069 Jan, [facility] [address] [place] [address] 37281- 3141 Dec, [facility] [address] [place] [address] 18887- 6189 Dec, HPV (human papilloma virus) anogenital infection A63.0 ; Anxiety F41.9 and Gastroesophageal reflux disease without esophagitis K21.9 [place] [address] [place] [id number] [place] [address] 46977- 4388 Sep, Blood in stool 578.1 [place] [address] [place] [id number] [place] [address] 95816- 9932 Aug, Blood in stool 578.1 [place] [address] 72363- 4235 Aug, Anxiety 300.00 and Blood in stool 578.[address] [address]23- 1600 July, [address] 20145- 6992 July, Family history of diabetes mellitus V18.0 [place] [id number] [place] [address] 36711- 6334 July, Family history of diabetes mellitus V18.0 ; Family history of thyroid disease V18.19 ; Polyuria 788.42 ; Polydipsia 783.5 ; Alopecia 704.00 and Fatigue 780.79 [place] [id number] [place] [address] 70681- 1987 Jun, [place] [id number] [place] [address] 00169- 4618 Jun, [place] [address] [place] [id number] [place] [address] 49346- 4257 Mar, [place] [address] [place] [id number] [place] [address] 97702- 0015 Mar, [place] [address] [place] [id number] [place] [address] 59841- 9658 Mar, [place] [address] [place] [id number] [place] [address] 90038- 8377 Mar, [address] [id number] [place] [address]- 5736 Mar, [facility] [place] [facility] [address] [id number] [place] [address]- 1477 Mar, [facility] [place] [facility] [address] [id number] [place] [address]- 9278 Mar, [facility] [place] [facility] [address] [id number] [place] [address]- 5890 Mar, [facility] [place] [facility] [address] [id number] [place] [address]- 1184 Mar, [facility] [place] [facility] [address] [id number] [place] [address]- 7372 Mar, [facility] [place] [facility] [address] [id number] [place] [address]- 8366 Feb, [facility] [place] [facility] [address] [id number] [place] [address]- 4917 Feb, [facility] [place] [facility] [address] [id number] [place] [address]- 2391 Jan, [facility] [place] [facility] [address] [id number] [place] [address]- 3529 Jan, [facility] [place] [facility] [address] [id number] [place] [address]- 3300 Jan, [facility] [place] [facility] [address] [id number] [place] [address]- 3506 Jan, [facility] [place] [facility] [address] [id number] [place] [address]- 1631 Dec, [facility] [place] [facility] [address] [id number] [place] [address]- 9054 Dec, [facility] [place] [facility] [address] [id number] [place] [address]- 6978 Nov, [facility] [place] [facility] [address] [id number] [place] [address]- 8338 Nov, [facility] [place] [facility] [address] [id number] [place] [address]- 1255 Oct, [facility] [place] [facility] [address] [id number] [place] [address]- 6065 Oct, [facility] [place] [facility] [address] [id number] [place] [address]- 3593 Oct, [facility] [place] [facility] [address] [id number] [place] [address]- 0487 Oct, [facility] [place] [facility] [address] [id number] [place] [address]- 9739 Oct, [facility] [place] [facility] [address] [id number] [place] [address]- 7651 Oct, [facility] [place] [facility] [address] [id number] [place] [address]- 5686 Oct, [facility] [place] [facility] [address] [id number] [place] [address]- 1581 Oct, [facility] [place] [facility] [address] [id number] [place] [address]- 2500 Sep, [facility] [place] [facility] [address] [id number] [place] [address]- 4061 Sep, [facility] [place] [facility] [address] [id number] [place] [address]- 0029 Sep, [facility] [place] [facility] [address] [id number] [place] [address]- 6288 Sep, [facility] [place] [facility] [address] [id number] [place] [address]- 0964 Aug, [facility] [place] [facility] [address] [id number] [place] [address]- 9566 Aug, [facility] [place] [facility] [address] [id number] [place] [address]- 2572 Aug, [facility] [place] [facility] [address] [id number] [place] [address]- 0285 Aug, [facility] [address] [id number] [place] [address]- 1660 July, [facility] [place] [facility] [address] [id number] [place] [address]- 4344 July, [facility] [place] [facility] [address] [id number] [place] [address]- 9396 July, [facility] [place] [facility] [address] [id number] [place] [address]- 6474 July, [facility] [place] [facility] [address] [id number] [place] [address]- 8698 July, [facility] [place] [facility] [address] [id number] [place] [address]- 1164 July, [facility] [place] [facility] [address] [id number] [place] [address]- 4496 Jun, [facility] [place] [facility] [address] [id number] [place] [address]- 4411 Jun, [facility] [place] [facility] [address] [id number] [place] [address]- 4454 Jun, [facility] [place] [facility] [address] [id number] [place] [address]- 8572 15 Jun, 2013 [facility] [place] [facility] [address] [id number] [place] [address]- 7023 Jun, [facility] [place] [facility] [address] [id number] [place] [address]- 7656 Jun, [facility] [place] [facility] [address] [id number] [place] [address]- 6286 Jun, [facility] [place] [facility] [address] [id number] [place] [address]- 0475 Jun, [facility] [place] [facility] [address] [id number] [place] [address]- 5477 May, [facility] [place] [facility] [address] [id number] [place] [address]- 9829 May, [facility] [place] [facility] [address] [id number] [place] [address]- 9643 May, [facility] [place] [facility] [address] [id number] [place] [address]- 2450 Apr, [facility] [place] [facility] [address] [id number] [place] [address]- 3222 Apr, [facility] [place] [facility] [address] [id number] [place] [address]- 5215 Apr, [facility] [place] [facility] [address] [id number] [place] [address]- 8448 Apr, [facility] [place] [facility] [address] [id number] [place] [address]- 7480 Mar, [facility] [place] [facility] [address] [id number] [place] [address]- 1130 Mar, [facility] [place] [facility] [address] [id number] [place] [address]- 2030 Mar, [facility] [place] [facility] [address] [id number] [place] [address]- 6520 Mar, [facility] [place] [facility] [address] [id number] [place] [address]- 1116 Mar, [facility] [place] [facility] [address] [id number] [place] [address] Mar, [facility] [place] [facility] [address] [id number] [place] [address] Feb, [facility] [place] [facility] [address] [id number] [place] [address] Feb, [facility] [place] [facility] [address] [id number] [place] [address] Jan, [facility] [place] [facility] [address] [id number] [place] [address] Jan, [facility] [place] [facility] [address] [id number] [place] [address] Jan, [facility] [place] [facility] [address] [id number] [place] [address] Jan, [facility] [place] [facility] [address] [id number] [place] [address] Jan, [facility] [place] [facility] [address] [id number] [place] [address] Jan, [facility] [place] [facility] [address] [id number] [place] [address] Jan, [facility] [place] [facility] [address] [id number] [place] [address] Dec, [facility] [place] [facility] [address] [id number] [place] [address] Dec, [facility] [place] [facility] [address] [id number] [place] [address] Nov, [facility] [place] [facility] [address] [id number] [place] [address] Nov, [facility] [place] [facility] [address] [id number] [place] [address] Nov, [facility] [place] [facility] [address] [id number] [place] [address] Oct, [facility] [place] [facility] [address] [id number] [place] [address] Oct, [facility] [place] [facility] [address] [id number] [place] [address] Oct, [facility] [place] [facility] [address] [id number] [place] [address] Oct, [facility] [place] [facility] [address] [id number] [place] [address] Sep, [facility] [place] [facility] [id number] [address] Sep, [facility] [id number] [place] [address] Aug, [facility] [id number], [place] [address] Aug, [facility] [id number] [place] [address] Aug, [facility] [address] [facility] [id number] [address] Aug, [facility] [id number], [place] [address] July, [facility] [id number], [place] [address] July, [facility] [id number] [place] [address] July, [facility] [id number], [place] [address] July, [facility] [id number], [place] [address] Jun, [facility] [id number] [place] [address] Jun, [facility] [id number] [address] Feb, [facility] [id number] [address] Feb, [facility] [id number] [address] Mar, IMMUNIZATIONS No Known Immunizations SOCIAL HISTORY [...]
--- OUTSIDE RECORDS SUMMARY | 2017-10-18 09:19 | XMS REPORT ---
Author Author MIRELLA MARIA Organization [facility] Address [address] [place] [address] Care Team Providers Care Laborer Rags Name Role Phone MIRELLA MARIA Unavailable PROBLEMS Type Condition ICD9-CM Code ZMS96-MZ Code Onset Dates Condition Status SNOMED Code Problem Mood disorder F39 Active 66842487 Problem Shoulder pain, right M25.511 Active 05832981 Problem Acquired hypothyroidism E03.9 Active 293174222 Problem Low back pain M54.5 Active 657290897 Problem Cervical radiculopathy M54.12 Active 30332365 Problem History of urethral stricture Z87.448 Active 618414254 Problem Diabetes type 2, uncontrolled E11.65 Active 658926670 Problem Hypertension, benign I10 Active 02431418 Problem Controlled type 2 diabetes mellitus without complication, without long -term current use of insulin E11.9 Active 580424608 Problem Diabetes type 2, controlled E11.9 Active 42042469 ALLERGIES No Information ENCOUNTERS Encounter Location Date Diagnosis [place] [id number] [place] [address] 84663- 2674 Jun, Controlled type 2 diabetes mellitus without complication, without long-term current use of insulin E11.9 [place] [id number] [place] [address] 23521- 1992 19 May, 2017 [place] [id number] [place] [address] 11625- 5385 16 May, 2017 Radiculopathy of cervical region M54.12 [place] [id number] [place] [address] 74382- 9594 14 May, 2017 Controlled type 2 diabetes mellitus without complication, without long-term current use of insulin E11.9 [place] [id number] [place] [address] 08066- 9273 12 May, 2017 [place] [address] [address]- 8483 May, Controlled type 2 diabetes mellitus without complication, without long-term current use of insulin E11.9 [place] [address], [place] [address]- 8127 May, Controlled type 2 diabetes mellitus without complication, without long-term current use of insulin E11.9 [place] [address], [place] [address]- 0747 May, Controlled type 2 diabetes mellitus without complication, without long-term current use of insulin E11.9 [place] [address], [place] [address]- 2108 Apr, [place] [address], [place] [address]- 0629 Apr, Controlled type 2 diabetes mellitus without complication, without long-term current use of insulin E11.9 [place] [address], [place] [address]- 6498 Apr, [place] [address], [place] [address]- 2862 Apr, Controlled type 2 diabetes mellitus without complication, without long-term current use of insulin E11.9 [place] [address], [place] [address]- 5276 Mar, [place] [address], [place] [address]- 6899 Mar, Radiculopathy of cervical region M54.12 [place] [address], [place] [address]- 6906 Mar, Controlled type 2 diabetes mellitus without complication, without long-term current use of insulin E11.9 [place] [id number] [address]- 5366 Feb, Cervical radiculopathy M54.12 ; Acute cystitis without hematuria N30.00 and History of urethral stricture Z87.448 [facility] [address], [place] [address]- 2352 Feb, Controlled type 2 diabetes mellitus without complication, without long-term current use of insulin E11.9 [facility] [id number] [place] [address] 38445- 2338 Feb, [facility] [id number] [place] [address] 51369- 1997 Jan, Diabetes type 2, uncontrolled E11.65 [facility] [id number] [place] [address] 28729- 4205 Jan, [facility] [id number] [place] [address] 57148- 4176 Jan, Controlled type 2 diabetes mellitus without complication, without long-term current use of insulin E11.9 ; Chest wall pain R07.89 and Thoracic spine pain M54.6 [place] [id number] [place] [address] 01922- 0939 Dec, [facility] [id number] [place] [address] 07999- 5662 Dec, [facility] [id number] [place] [address] 19346- 0715 Nov, [facility] [id number] [place] [address] 09979- 3408 Nov, [facility] [id number] [place] [address] 81347 -2987 Nov, Trichomonas exposure Z20.2 [facility] [id number] [place] [address] 87510- 9323 Oct, [facility] [id number] [place] [address] 73285- 7905 Oct, [facility] [id number] [place] [address] 92972- 0961 Oct, [facility] [id number] [place] [address]- 4439 Oct, [facility] [address] [id number] [place] [address]- 6180 Sep, [facility] [place] [facility] [address] [id number] [place] [address]- 8554 Sep, [facility] [address] [id number] [place] [address]- 2652 Aug, [facility] [place] [facility] [address] [id number] [place] [address]- 5176 Aug, [facility] [address] [id number] [place] [address]- 6369 Aug, [facility] [address] [id number] [place] [address]- 2465 Aug, [facility] [address] [id number] [place] [address]- 8833 July, Diabetes type 2, controlled E11.9 [facility] [address] [id number] [place] [address]- 6119 July, [facility] [address] [facility] [id number] [place] [address]- 3953 July, [facility] [address] [id number] [place] [address]- 0253 July, [facility] [address] [id number] [place] [address]- 1030 July, [facility] [place] [facility] [address] [id number] [place] [address]- 9865 Jun, [facility] [place] [facility] [address] [id number] [place] [address]- 4790 Jun, [facility] [place] [facility] [address] [id number] [place] [address]- 4843 May, [facility] [place] [facility] [address] [id number], [place] [address]- 6026 May, [facility] [address] [facility] [id number] [place] [address]- 8270 May, [facility] [id number] [place] [address] 71959- 0006 May, Controlled type 2 diabetes mellitus without complication, without long-term current use of insulin E11.9 [facility] [address] [facility] [id number] [place] [address], [place] [address]- 3473 Apr, [facility] [address] [facility] [id number] [place] [address], [place] [address]- 2546 Apr, [facility] [id number] [place] [address], [place] [address]- 7216 Mar, [facility] [id number] [place] [address] 52084- 7234 Mar, [facility] [id number] [place] [address] 06041- 4953 Feb, [facility] [address], [place] [address]- 2921 Feb, [facility] [id number] [place] [address] 047536- 6953 Jan, [facility] [address], [place] [address]- 9821 Jan, [facility] [id number], [place] [address]- 5423 Jan, [facility] [address] [facility] [id number], [place] [address]- 1318 Dec, [facility] [address] [facility] [id number] [place] [address], [place] [address]- 0636 Dec, [facility] [id number], [place] [address]- 6495 Dec, [facility] [id number] [place] [address] 92633- 5397 29 Nov, 2015 Diabetes type 2, uncontrolled E11.65 [facility] [address], [place] [address]- 8845 14 Nov, 2015 [facility] [id number] [place] [address] 44319- 9908 09 Nov, 2015 [facility] [id number] [place] [address] 51729- 9235 Oct, [facility] [id number] [place] [address] 26986- 5288 Oct, [facility] [id number] [place] [address] 37506- 2246 Sep, Controlled type 2 diabetes mellitus without complication, without long-term current use of insulin E11.9 [facility] [id number] [place] [address] 08384- 8473 Sep, [facility] [id number] [place] [address] 26151- 2750 Sep, [facility] [id number] [place] [address] 62554- 0588 Sep, [facility] [id number] [place] [address] 09305- 4234 Sep, [facility] [id number] [place] [address] 94765- 3064 Aug, Diabetes type 2, controlled E11.9 ; Anxiety F41.9 ; Carpal tunnel syndrome, left upper limb G56.02 and Carpal tunnel syndrome, right upper limb G56.01 [facility] [address], [place] [address]- 7410 Aug, Urethritis N34.2 [facility] [id number] [place] [address] 93666- 0372 Aug, [facility] [id number] [place] [address] 92241- 3977 July, Genital warts A63.0 [facility] [address] [facility] [id number], [place] [address]- 2266 July, [facility] [address] [facility] [id number], [place] [address] 2546 July, Genital warts A63.0 [facility] [address], [place] [address]- 6926 July, Anxiety F41.9 [facility] [id number] [place] [address] 84259 2546 Jun, Genital warts A63.0 [facility] [id number] [place] [address] 78834- 6756 Jun, Anxiety F41.9 [facility] [id number] [place] [address] 37844- 0437 May, Genital warts A63.0 and Diabetes type 2, uncontrolled E11.65 [facility] [address], [place] [address]- 0786 May, [facility] [id number] [place] [address] 06136- 3965 May, [facility] [address], [place] [address]- 7468 Apr, [facility] [address], [place] [address] 2546 Apr, [facility] [address], [place] [address]- 2542 Apr, Diabetes type 2, controlled E11.9 [facility] [address], [place] [address] 2546 Apr, Genital warts A63.0 [facility] [address], [place] [address]- 2546 Apr, [facility] [id number] [place] [address] 78436- 6161 Apr, Diabetes type 2, uncontrolled E11.65 and Genital warts A63.0 [facility] [id number] [place] [address] 83561- 9589 Apr, [facility] [id number] [place] [address] 63164- 0959 Mar, [facility] [id number] [place] [address] 26045- 0623 Mar, [facility] [id number] [place] [address] 32399- 3559 Mar, Family history of diabetes mellitus V18.0 and Weight loss R63.4 [facility] [id number] [place] [address] 17654- 7334 Mar, Genital warts A63.0 and Family history of diabetes mellitus V18.0 [facility] [id number] [place] [address] 54738- 5867 Feb, [facility] [id number] [place] [address] 96883- 6222 Jan, [facility] [id number] [place] [address] 86062- 3138 Jan, Perianal venereal warts A63.0 [facility] [id number] [place] [address] 26103- 1206 Jan, Urethritis N34.2 and Anxiety F41.9 [facility] [id number] [place] [address] 03615- 1300 Jan, [facility] [id number] [place] [address] 36311- 6240 Jan, Urinary tract infection, site unspecified N39.0 [facility] [id number] [place] [address] 43303- 2247 Jan, [facility] [id number] [place] [address] 26341- 2523 Dec, [place] [id number] [place] [address] 34513- 4670 Dec, HPV (human papilloma virus) anogenital infection A63.0 ; Anxiety F41.9 and Gastroesophageal reflux disease without esophagitis K21.9 [place] [id number] [place] [address] 499444- 9216 Sep, Blood in stool 578.1 [place] [address] 99170- 2425 Aug, Blood in stool 578.[address] 298463- 3052 Aug, Anxiety 300.00 and Blood in stool 578.[address] 69702- 4784 July, [address] 65676- 0823 July, Family history of diabetes mellitus V18.[address] 90994- 0792 July, Family history of diabetes mellitus V18.0 ; Family history of thyroid disease V18.19 ; Polyuria 788.42 ; Polydipsia 783.5 ; Alopecia 704.00 and Fatigue 780.79 [place] [id number] [place] [address] 41827- 7461 Jun, [place] [id number] [place] [address] 91680- 1098 Jun, [address] 07164249- 9766 Mar, [place] [id number] [place] [address] 96913- 8409 Mar, [address] 31344- 1774 Mar, [facility] [place] [facility] [address] [id number] [place] [address]- 3621 Mar, [facility] [place] [facility] [address] [id number] [place] [address]- 1096 Mar, [facility] [place] [facility] [address] [id number] [place] [address]- 4196 Mar, [facility] [place] [facility] [address] [id number] [place] [address]- 2873 Mar, [facility] [place] [facility] [address] [id number] [place] [address]- 0375 Mar, [facility] [place] [facility] [address] [id number] [place] [address]- 2719 Mar, [facility] [place] [facility] [address] [id number] [place] [address]- 3750 Mar, [facility] [place] [facility] [address] [id number] [place] [address]- 5016 Feb, [facility] [place] [facility] [address] [id number], [place] [address]- 7246 Feb, [facility] [place] [facility] [address] [id number] [place] [address]- 1863 Jan, [facility] [place] [facility] [address] [id number], [place] [address]- 9005 Jan, [facility] [place] [facility] [address] [id number], [place] [address]- 0973 Jan, [facility] [place] [facility] [address] [id number], [place] [address]- 9901 Jan, [facility] [place] [facility] [address] [id number], [place] [address]- 0645 Dec, [facility] [place] [facility] [address] [id number] [place] [address]- 5835 Dec, [facility] [place] [facility] [address] [id number] [place] [address]- 1736 Nov, [facility] [place] [facility] [address] [id number] [place] [address]- 2692 Nov, [facility] [place] [facility] [address] [id number] [place] [address]- 0281 Oct, [facility] [place] [facility] [address] [id number] [place] [address]- 6714 Oct, [facility] [place] [facility] [address] [id number] [place] [address]- 1467 Oct, [facility] [place] [facility] [address] [id number] [place] [address]- 7497 Oct, [facility] [place] [facility] [address] [id number] [place] [address]- 0614 Oct, [facility] [place] [facility] [address] [id number] [place] [address]- 3763 Oct, [facility] [place] [facility] [address] [id number] [place] [address]- 1573 Oct, [facility] [place] [facility] [address] [id number] [place] [address]- 6661 Oct, [facility] [place] [facility] [address] [id number] [place] [address]- 1022 Sep, [facility] [place] [facility] [address] [id number] [place] [address]- 8287 Sep, [facility] [place] [facility] [address] [id number] [place] [address]- 3214 Sep, [facility] [place] [facility] [address] [id number] [place] [address]- 0129 Sep, [facility] [place] [facility] [address] [id number] [place] [address]- 5984 Aug, [facility] [place] [facility] [address] [id number] [place] [address]- 6992 Aug, [facility] [place] [facility] [address] [id number] [place] [address]- 7287 Aug, [facility] [place] [facility] [address] [id number] [place] [address]- 9885 Aug, [facility] [place] [facility] [address] [id number] [place] [address]- 6412 July, [facility] [place] [facility] [address] [id number] [place] [address]- 1029 July, [facility] [place] [facility] [address] [id number] [place] [address]- 8189 July, [facility] [place] [facility] [address] [id number] [place] [address]- 8462 July, [facility] [place] [facility] [address] [id number] [place] [address]- 0726 July, [facility] [place] [facility] [address] [id number] [place] [address]- 3156 July, [facility] [place] [facility] [address] [id number] [place] [address]- 6294 Jun, [facility] [place] [facility] [address] [id number] [place] [address]- 8709 Jun, [facility] [place] [facility] [address] [id number] [place] [address]- 0187 Jun, [facility] [place] [facility] [address] [id number] [place] [address]- 4005 15 Jun, 2013 [facility] [place] [facility] [address] [id number] [place] [address]- 7491 Jun, [facility] [place] [facility] [address] [id number] [place] [address]- 0862 Jun, [facility] [place] [facility] [address] [id number] [place] [address]- 9998 Jun, [facility] [place] [facility] [address] [id number] [place] [address]- 5827 14 Jun, 2013 [facility] [place] [facility] [address] [id number] [place] [address]- 9038 May, [facility] [place] [facility] [address] [id number] [place] [address]- 1851 May, [facility] [place] [facility] [address] [id number] [place] [address]- 9126 May, [facility] [place] [facility] [address] [id number] [place] [address]- 3347 Apr, [facility] [place] [facility] [address] [id number] [place] [address] Apr, [facility] [place] [facility] [address] [id number] [place] [address] Apr, [facility] [place] [facility] [address] [id number] [place] [address] Apr, [facility] [place] [facility] [address] [id number] [place] [address] Mar, [facility] [place] [facility] [address] [id number] [place] [address] Mar, [facility] [place] [facility] [address] [id number] [place] [address] Mar, [facility] [place] [facility] [address] [id number] [place] [address] Mar, [facility] [place] [facility] [address] [id number] [place] [address] Mar, [facility] [place] [facility] [address] [id number] [place] [address] Mar, [facility] [place] [facility] [address] [id number] [place] [address] Feb, [facility] [place] [facility] [address] [id number] [place] [address] Feb, [facility] [place] [facility] [address] [id number] [place] [address] Jan, [facility] [place] [facility] [address] [id number] [place] [address] Jan, [facility] [place] [facility] [address] [id number] [place] [address] Jan, [facility] [place] [facility] [address] [id number] [place] [address]- [address] Jan, [facility] [place] [facility] [address] [id number] [place] [address] Jan, [facility] [place] [facility] [address] [id number] [place] [address] Jan, [facility] [place] [facility] [address] [id number] [place] [address] Jan, [facility] [place] [facility] [address] [id number] [place] [address] Dec, [facility] [place] [facility] [address] [id number] [place] [address] Dec, [facility] [place] [facility] [address] [id number] [place] [address] Nov, [facility] [place] [facility] [address] [id number] [place] [address] Nov, [facility] [place] [facility] [address] [id number] [place] [address] Nov, [facility] [place] [facility] [address] [id number] [place] [address] Oct, [facility] [place] [facility] [address] [id number] [place] [address] Oct, [facility] [place] [facility] [address] [id number] [place] [address] Oct, [facility] [place] [facility] [address] [id number][place] [address] Oct, [facility] [address] [id number] [place] [address] Sep, [facility] [address] [id number], [place] [address] Sep, [facility] [address] [facility] [id number] [place] [address] Aug, [facility] [address] [id number], [place] [address] Aug, [facility] [address] [id number] [place] [address] Aug, [facility] [address] [facility] [id number] [place] [address] Aug, [facility] [address] [facility] [id number], [place] [address] July, [facility] [address] [facility] [id number] [place] [address] July, [facility] [address] [facility] [id number], [place] [address] July, [facility] [address] [facility] [id number], [place] [address] July, [facility] [address] [facility] [id number], [place] [address] Jun, [facility] [address] [facility] [id number], [place] [address] Jun, [facility] [address] [facility] [id number], [place] [address] Feb, [facility] [address] [facility] [id number], [place] [address] Feb, [facility] [address] [facility] [id number], [place] [address] Mar, IMMUNIZATIONS No Known Immunizations SOCIAL HISTORY [...]
--- OUTSIDE RECORDS SUMMARY | 2017-10-18 09:19 | XMS REPORT ---
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 Name Role Phone MIRELLA MARIA Unavailable PROBLEMS Type Condition ICD9-CM Code QOR05-JN Code Onset Dates Condition Status SNOMED Code Problem Mood disorder F39 Active 36200017 Problem Shoulder pain, right M25.511 Active 23242406 Problem Acquired hypothyroidism E03.9 Active 530698989 Problem Low back pain M54.5 Active 827333483 Problem Cervical radiculopathy M54.12 Active 01062418 Problem History of urethral stricture Z87.448 Active 839297727 Problem Diabetes type 2, uncontrolled E11.65 Active 085293394 Problem Hypertension, benign I10 Active 81675690 Problem Controlled type 2 diabetes mellitus without complication, without long -term current use of insulin E11.9 Active 289798359 Problem Diabetes type 2, controlled E11.9 Active 28465176 ALLERGIES No Information ENCOUNTERS Encounter Location Date Diagnosis [facility] [id number] [place] [address] 77891- 5551 Jun, Controlled type 2 diabetes mellitus without complication, without long-term current use of insulin E11.9 [facility] [id number] [place] [address] 60044- 7835 19 May, 2017 [facility] [id number] [place] [address] 14802- 6237 16 May, 2017 Radiculopathy of cervical region M54.12 [facility] [id number] [place] [address] 31826- 3621 14 May, 2017 Controlled type 2 diabetes mellitus without complication, without long-term current use of insulin E11.9 [facility] [id number] [place] [address] 94553- 6610 12 May, 2017 [facility] [address], [place] [address] 8494 May, Controlled type 2 diabetes mellitus without complication, without long-term current use of insulin E11.9 [facility] [address], [place] [address]- 0127 May, Controlled type 2 diabetes mellitus without complication, without long-term current use of insulin E11.9 [facility] [address], [place] [address]- 3803 May, Controlled type 2 diabetes mellitus without complication, without long-term current use of insulin E11.9 [facility] [address], [place] [address]- 2378 Apr, [facility] [address] [address]- 7945 Apr, Controlled type 2 diabetes mellitus without complication, without long-term current use of insulin E11.9 [facility] [address], [place] [address]- 2741 Apr, [facility] [address] [address]- 3932 Apr, Controlled type 2 diabetes mellitus without complication, without long-term current use of insulin E11.9 [facility] [address], [place] [address]- 3610 Mar, [facility] [address] [address]- 9172 Mar, Radiculopathy of cervical region M54.12 [facility] [address] [address]- 0387 Mar, Controlled type 2 diabetes mellitus without complication, without long-term current use of insulin E11.9 [facility] [id number] [address]- 8441 Feb, Cervical radiculopathy M54.12 ; Acute cystitis without hematuria N30.00 and History of urethral stricture Z87.448 [facility] [address], [place] [address] 7743 Feb, Controlled type 2 diabetes mellitus without complication, without long-term current use of insulin E11.9 [facility] [id number] [place] [address] 62667- 0565 Feb, [facility] [id number] [place] [address] 58934- 3516 Jan, Diabetes type 2, uncontrolled E11.65 [facility] [id number] [place] [address] 69638- 1743 Jan, [facility] [id number] [place] [address] 97038- 4695 Jan, Controlled type 2 diabetes mellitus without complication, without long-term current use of insulin E11.9 ; Chest wall pain R07.89 and Thoracic spine pain M54.6 [facility] [id number] [place] [address] 58941- 2197 Dec, [facility] [id number] [place] [address] 16998- 0951 Dec, [facility] [id number] [place] [address] 38494- 1916 Nov, [facility] [id number] [place] [address] 29421- 0770 Nov, [facility] [id number] [place] [address] 66660 -3084 Nov, Trichomonas exposure Z20.2 [facility] [id number] [place] [address] 67231- 7734 Oct, [facility] [id number] [place] [address] 38430- 7477 Oct, [facility] [id number] [place] [address] 76048- 5685 Oct, [facility] [id number] [place] [address]- 2599 Oct, [facility] [address] [id number] [place] [address]- 7313 Sep, [facility] [place] [facility] [address] [id number] [place] [address]- 5490 Sep, [facility] [address] [id number] [place] [address]- 2333 Aug, [facility] [place] [facility] [address] [id number] [place] [address]- 1990 Aug, [facility] [address] [id number] [place] [address]- 5550 Aug, [facility] [address] [id number] [place] [address]- 8149 Aug, [facility] [address] [id number] [place] [address]- 2797 July, Diabetes type 2, controlled E11.9 [facility] [address] [id number] [place] [address]- 2493 July, [facility] [address] [facility] [id number] [place] [address]- 1207 July, [facility] [address] [id number] [place] [address]- 6741 July, [facility] [address] [id number] [place] [address]- 4487 July, [facility] [place] [facility] [address] [id number] [place] [address]- 6520 Jun, [facility] [place] [facility] [address] [id number] [place] [address]- 0467 Jun, [facility] [place] [facility] [address] [id number] [place] [address]- 9534 May, [facility] [place] [facility] [address] [id number], [place] [address]- 5926 May, [facility] [address] [facility] [id number] [place] [address]- 2413 May, [facility] [id number] [place] [address] 45505- 9086 May, Controlled type 2 diabetes mellitus without complication, without long-term current use of insulin E11.9 [facility] [address] [facility] [id number] [place] [address], [place] [address]- 3020 Apr, [facility] [address] [facility] [id number] [place] [address], [place] [address]- 2546 Apr, [facility] [id number] [place] [address], [place] [address]- 2526 Mar, [facility] [id number] [place] [address] 87547- 6782 Mar, [facility] [id number] [place] [address] 26325- 6995 Feb, [facility] [address], [place] [address]- 3257 Feb, [facility] [id number] [place] [address] 211709- 9801 Jan, [facility] [address], [place] [address]- 3162 Jan, [facility] [id number], [place] [address]- 4069 Jan, [facility] [address] [facility] [id number], [place] [address]- 1552 Dec, [facility] [address] [facility] [id number] [place] [address], [place] [address]- 4216 Dec, [facility] [id number], [place] [address]- 1216 Dec, [facility] [id number] [place] [address] 92236- 8149 29 Nov, 2015 Diabetes type 2, uncontrolled E11.65 [facility] [address], [place] [address]- 7387 14 Nov, 2015 [facility] [id number] [place] [address] 22986- 0978 09 Nov, 2015 [facility] [id number] [place] [address] 90106- 0281 Oct, [facility] [id number] [place] [address] 49697- 7846 Oct, [facility] [id number] [place] [address] 10932- 6177 Sep, Controlled type 2 diabetes mellitus without complication, without long-term current use of insulin E11.9 [facility] [id number] [place] [address] 92758- 5415 Sep, [facility] [id number] [place] [address] 57718- 4454 Sep, [facility] [id number] [place] [address] 30072- 5584 Sep, [facility] [id number] [place] [address] 26240- 3599 Sep, [facility] [id number] [place] [address] 66399- 6908 Aug, Diabetes type 2, controlled E11.9 ; Anxiety F41.9 ; Carpal tunnel syndrome, left upper limb G56.02 and Carpal tunnel syndrome, right upper limb G56.01 [facility] [address], [place] [address]- 3688 Aug, Urethritis N34.2 [facility] [id number] [place] [address] 72732- 3038 Aug, [facility] [id number] [place] [address] 68541- 6184 July, Genital warts A63.0 [facility] [address] [facility] [id number], [place] [address]- 1666 July, [facility] [address] [facility] [id number], [place] [address] 2546 July, Genital warts A63.0 [facility] [address], [place] [address]- 4806 July, Anxiety F41.9 [facility] [id number] [place] [address] 38950 2546 Jun, Genital warts A63.0 [facility] [id number] [place] [address] 84480- 2506 Jun, Anxiety F41.9 [facility] [id number] [place] [address] 28301- 6626 May, Genital warts A63.0 and Diabetes type 2, uncontrolled E11.65 [facility] [address], [place] [address]- 5816 May, [facility] [id number] [place] [address] 99570- 8610 May, [facility] [address], [place] [address]- 8777 Apr, [facility] [address], [place] [address] 2546 Apr, [facility] [address], [place] [address]- 2545 Apr, Diabetes type 2, controlled E11.9 [facility] [address], [place] [address] 2546 Apr, Genital warts A63.0 [facility] [address], [place] [address]- 2546 Apr, [facility] [id number] [place] [address] 27482- 2017 Apr, Diabetes type 2, uncontrolled E11.65 and Genital warts A63.0 [facility] [id number] [place] [address] 66425- 6791 Apr, [facility] [id number] [place] [address] 27891- 6606 Mar, [facility] [id number] [place] [address] 02463- 1355 Mar, [facility] [id number] [place] [address] 30983- 7731 Mar, Family history of diabetes mellitus V18.0 and Weight loss R63.4 [facility] [id number] [place] [address] 25522- 6011 Mar, Genital warts A63.0 and Family history of diabetes mellitus V18.0 [facility] [id number] [place] [address] 56100- 6384 Feb, [facility] [id number] [place] [address] 91918- 1880 Jan, [facility] [id number] [place] [address] 37788- 9671 Jan, Perianal venereal warts A63.0 [facility] [id number] [place] [address] 94341- 8909 Jan, Urethritis N34.2 and Anxiety F41.9 [facility] [id number] [place] [address] 50081- 1558 Jan, [facility] [id number] [place] [address] 84586- 8371 Jan, Urinary tract infection, site unspecified N39.0 [facility] [id number] [place] [address] 43792- 3297 Jan, [facility] [id number] [place] [address] 96715- 4893 Dec, [facility] [id number] [place] [address] 25105- 8820 Dec, HPV (human papilloma virus) anogenital infection A63.0 ; Anxiety F41.9 and Gastroesophageal reflux disease without esophagitis K21.9 [id number] [place] [address] 033355- 7569 Sep, Blood in stool 578.1 [facility] [address] 48776- 0881 Aug, Blood in stool 578.[address] 941177- 2988 Aug, Anxiety 300.00 and Blood in stool 578.[address] 41265- 8473 July, [address] 47045- 3090 July, Family history of diabetes mellitus V18.[address] 54707- 7049 July, Family history of diabetes mellitus V18.0 ; Family history of thyroid disease V18.19 ; Polyuria 788.42 ; Polydipsia 783.5 ; Alopecia 704.00 and Fatigue 780.79 [facility] [id number] [place] [address] 60135- 1241 Jun, [facility] [id number] [place] [address] 80446- 6684 Jun, [address] 15293102- 4650 Mar, [facility] [id number] [place] [address] 02406- 5063 Mar, [address] 26993- 8417 Mar, [facility] [place] [facility] [address] [id number] [place] [address]- 0034 Mar, [facility] [place] [facility] [address] [id number] [place] [address]- 1426 Mar, [facility] [place] [facility] [address] [id number] [place] [address]- 6262 Mar, [facility] [place] [facility] [address] [id number] [place] [address]- 7596 Mar, [facility] [place] [facility] [address] [id number] [place] [address]- 6952 Mar, [facility] [place] [facility] [address] [id number] [place] [address]- 8630 Mar, [facility] [place] [facility] [address] [id number] [place] [address]- 7550 Mar, [facility] [place] [facility] [address] [id number] [place] [address]- 2876 Feb, [facility] [place] [facility] [address] [id number], [place] [address]- 1204 Feb, [facility] [place] [facility] [address] [id number] [place] [address]- 1355 Jan, [facility] [place] [facility] [address] [id number], [place] [address]- 0011 Jan, [facility] [place] [facility] [address] [id number], [place] [address]- 6507 Jan, [facility] [place] [facility] [address] [id number], [place] [address]- 7529 Jan, [facility] [place] [facility] [address] [id number], [place] [address]- 6097 Dec, [facility] [place] [facility] [address] [id number] [place] [address]- 6489 Dec, [facility] [place] [facility] [address] [id number] [place] [address]- 3130 Nov, [facility] [place] [facility] [address] [id number] [place] [address]- 4557 Nov, [facility] [place] [facility] [address] [id number] [place] [address]- 1624 Oct, [facility] [place] [facility] [address] [id number] [place] [address]- 6042 Oct, [facility] [place] [facility] [address] [id number] [place] [address]- 1882 Oct, [facility] [place] [facility] [address] [id number] [place] [address]- 8439 Oct, [facility] [place] [facility] [address] [id number] [place] [address]- 5480 Oct, [facility] [place] [facility] [address] [id number] [place] [address]- 1770 Oct, [facility] [place] [facility] [address] [id number] [place] [address]- 5325 Oct, [facility] [place] [facility] [address] [id number] [place] [address]- 7047 Oct, [facility] [place] [facility] [address] [id number] [place] [address]- 2054 Sep, [facility] [place] [facility] [address] [id number] [place] [address]- 6596 Sep, [facility] [place] [facility] [address] [id number] [place] [address]- 5519 Sep, [facility] [place] [facility] [address] [id number] [place] [address]- 9431 Sep, [facility] [place] [facility] [address] [id number] [place] [address]- 2229 Aug, [facility] [place] [facility] [address] [id number] [place] [address]- 2834 Aug, [facility] [place] [facility] [address] [id number] [place] [address]- 2497 Aug, [facility] [place] [facility] [address] [id number] [place] [address]- 5869 Aug, [facility] [place] [facility] [address] [id number] [place] [address]- 0949 July, [facility] [place] [facility] [address] [id number] [place] [address]- 1536 July, [facility] [place] [facility] [address] [id number] [place] [address]- 1283 July, [facility] [place] [facility] [address] [id number] [place] [address]- 9987 July, [facility] [place] [facility] [address] [id number] [place] [address]- 5070 July, [facility] [place] [facility] [address] [id number] [place] [address]- 3116 July, [facility] [place] [facility] [address] [id number] [place] [address]- 5533 Jun, [facility] [place] [facility] [address] [id number] [place] [address]- 5985 Jun, [facility] [place] [facility] [address] [id number] [place] [address]- 2229 Jun, [facility] [place] [facility] [address] [id number] [place] [address]- 5451 15 Jun, 2013 [facility] [place] [facility] [address] [id number] [place] [address]- 8590 Jun, [facility] [place] [facility] [address] [id number] [place] [address]- 4852 Jun, [facility] [place] [facility] [address] [id number] [place] [address]- 7073 Jun, [facility] [place] [facility] [address] [id number] [place] [address]- 5134 14 Jun, 2013 [facility] [place] [facility] [address] [id number] [place] [address]- 0333 May, [facility] [place] [facility] [address] [id number] [place] [address]- 8405 May, [facility] [place] [facility] [address] [id number] [place] [address]- 8406 May, [facility] [place] [facility] [address] [id number] [place] [address]- 7278 Apr, [facility] [place] [facility] [address] [id number] [place] [address]- 5615 Apr, [facility] [place] [facility] [address] [id number] [place] [address]- 1528 Apr, [facility] [place] [facility] [address] [id number] [place] [address]- 5123 Apr, [facility] [place] [facility] [address] [id number] [place] [address]- 6546 Mar, [facility] [place] [facility] [address] [id number] [place] [address]- 0600 Mar, [facility] [place] [facility] [address] [id number] [place] [address]- 1366 Mar, [facility] [place] [facility] [address] [id number] [place] [address]- 0752 Mar, [facility] [place] [facility] [address] [id number] [place] [address] Mar, [facility] [place] [facility] [address] [id number] [place] [address] Mar, [facility] [place] [facility] [address] [id number] [place] [address] Feb, [facility] [place] [facility] [address] [id number] [place] [address] Feb, [facility] [place] [facility] [address] [id number] [place] [address] Jan, [facility] [place] [facility] [address] [id number] [place] [address] Jan, [facility] [place] [facility] [address] [id number] [place] [address] Jan, [facility] [place] [facility] [address] [id number] [place] [address] Jan, [facility] [place] [facility] [address] [id number] [place] [address] Jan, [facility] [place] [facility] [address] [id number] [place] [address] Jan, [facility] [place] [facility] [address] [id number] [place] [address] Jan, [facility] [place] [facility] [address] [id number] [place] [address] Dec, [facility] [place] [facility] [address] [id number] [place] [address] Dec, [facility] [place] [facility] [address] [id number] [place] [address] Nov, [facility] [place] [facility] [address] [id number] [place] [address] Nov, [facility] [place] [facility] [address] [id number] [place] [address] Nov, [facility] [place] [facility] [address] [id number] [place] [address] Oct, [facility] [place] [facility] [address] [id number] [place] [address] Oct, [facility] [place] [facility] [address] [id number] [place] [address] Oct, [facility] [place] [facility] [address] [id number], [place] [address] Oct, [facility] [address] [id number] [place] [address] Sep, [facility] [address] [id number], [place] [address] Sep, [facility] [address] [facility] [id number] [place] [address] Aug, [facility] [address] [id number], [place] [address] Aug, [facility] [address] [id number] [place] [address] Aug, [facility] [address] [facility] [id number] [place] [address] Aug, [facility] [address] [facility] [id number], [place] [address] July, [facility] [address] [facility] [id number] [place] [address] July, [facility] [address] [facility] [id number], [place] [address] July, [facility] [address] [facility] [id number], [place] [address] July, [facility] [address] [facility] [id number], [place] [address] Jun, [facility] [address] [facility] [id number], [place] [address] Jun, [facility] [address] [facility] [id number], [place] [address] Feb, [facility] [address] [facility] [id number], [place] [address] Feb, [facility] [address] [facility] [id number], [place] [address] Mar, IMMUNIZATIONS No Known Immunizations SOCIAL HISTORY Never Assessed REASON FOR VISIT med refill PLAN OF CARE VITAL SIGNS MEDICATIONS Medication Instructions Dosage Frequency Start Date End Date Duration Status Metformin HCl 1000 MG TAKE ONE TABLET [...]
--- OUTSIDE RECORDS SUMMARY | 2017-10-18 09:20 | XMS REPORT ---
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 Info Not Available Non Drug Allergy Problems Problem Type Condition Code Onset Dates Condition Status Problem Mood disorder F39 Active Problem Low back pain M54.5 Active Problem Shoulder pain, right M25.511 Active Assessment Genital warts A63.0 Active Assessment Family history of diabetes mellitus V18.0 Active Problem Acquired hypothyroidism E03.9 Active Problem Hypertension, benign I10 Active Medications Medication Code System Code Instructions Start Date End Date Status Dosage Pantoprazole Sodium [facility] [address]-22 40 MG Orally Once a day Jan 10, 2015 1 tablet Ativan [facility] [address]-72 0.5 MG Orally Twice a day Jan 10, 2015 1 tablet as needed Procedures Procedure Coding System Code Date DESTRUCT LESION, -14 CPT-4 73673 Apr 01, 2015 Vital Signs Date/Time: Apr 01, 2015 Temperature 98.3 F Weight 198.3 lbs Height 68 in BMI 30.15 Index Blood Pressure Diastolic 80 mmHg Blood Pressure Systolic 130 mmHg Cardiac Monitoring Heart Rate 88 bpm Results Name Result Date Reference Range Unit Abnormality Flag WART DESTRUCT -14 ([facility]) Summary Purpose eClinicalWorks Submission
--- OUTSIDE RECORDS SUMMARY | 2017-10-18 09:20 | XMS REPORT ---
Author Author JODY LACKEY [facility] Address [address] [place] [address] Care Team Providers Care Maintenance Shop Welder Name Role Phone JODY LACKEY Unavailable PROBLEMS Type Condition ICD9-CM Code NTD46-QH Code Onset Dates Condition Status SNOMED Code Problem Mood disorder F39 Active 84281381 Problem Shoulder pain, right M25.511 Active 70027405 Problem Acquired hypothyroidism E03.9 Active 676851186 Problem Low back pain M54.5 Active 259564819 Problem Cervical radiculopathy M54.12 Active 17188909 Problem History of urethral stricture Z87.448 Active 190750391 Problem Diabetes type 2, uncontrolled E11.65 Active 161662737 Problem Hypertension, benign I10 Active 98169451 Problem Controlled type 2 diabetes mellitus without complication, without long -term current use of insulin E11.9 Active 592728188 Problem Diabetes type 2, controlled E11.9 Active 35363395 ALLERGIES No Information ENCOUNTERS Encounter Location Date Diagnosis [facility] [id number] [place] [address] 54348- 5292 Jun, Controlled type 2 diabetes mellitus without complication, without long-term current use of insulin E11.9 [facility] [id number] [place] [address] 60193- 5715 19 May, 2017 [facility] [id number] [place] [address] 13631- 3499 16 May, 2017 Radiculopathy of cervical region M54.12 [facility] [address] 23788- 9789 14 May, 2017 Controlled type 2 diabetes mellitus without complication, without long-term current use of insulin E11.9 [facility] [id number] [place] [address] 74204- 8067 12 May, 2017 [facility] [address], [place] [address]- 0125 May, Controlled type 2 diabetes mellitus without complication, without long-term current use of insulin E11.9 [facility] [address], [place] [address]- 5985 May, Controlled type 2 diabetes mellitus without complication, without long-term current use of insulin E11.9 [facility] [id number] [place] [address] 19194- 7314 May, Controlled type 2 diabetes mellitus without complication, without long-term current use of insulin E11.9 [facility] [id number] [place] [address] 92597- 8459 Apr, [facility] [id number] [place] [address] 44118- 7250 Apr, Controlled type 2 diabetes mellitus without complication, without long-term current use of insulin E11.9 [facility] [address], [place] [address]- 3757 Apr, [facility] [id number] [place] [address] 22423- 9848 Apr, Controlled type 2 diabetes mellitus without complication, without long-term current use of insulin E11.9 [facility] [address], [place] [address]- 3579 Mar, [facility] [id number] [place] [address] 63629- 2461 Mar, Radiculopathy of cervical region M54.12 [facility] [id number] [place] [address] 30091- 6263 Mar, Controlled type 2 diabetes mellitus without complication, without long-term current use of insulin E11.9 [facility] [address], [place] [address]- 9898 Feb, Cervical radiculopathy M54.12 ; Acute cystitis without hematuria N30.00 and History of urethral stricture Z87.448 [facility] [id number] [place] [address] 37011- 0358 Feb, Controlled type 2 diabetes mellitus without complication, without long-term current use of insulin E11.9 [facility] [id number] [place] [address] 14144- 0567 Feb, [facility] [address] [address]- 1972 Jan, Diabetes type 2, uncontrolled E11.65 [facility] [id number] [place] [address] 41700- 2684 Jan, [facility] [id number] [place] [address] 90535- 4159 Jan, Controlled type 2 diabetes mellitus without complication, without long-term current use of insulin E11.9 ; Chest wall pain R07.89 and Thoracic spine pain M54.6 [facility] [id number] [place] [address] 15348- 0009 Dec, [facility] [id number] [place] [address] 36563- 3867 Dec, [facility] [id number] [place] [address] 74997- 6391 Nov, [facility] [id number] [place] [address] 32306- 8384 Nov, [facility] [id number] [place] [address] 22931 -6869 Nov, Trichomonas exposure Z20.2 [facility] [id number] [place] [address] 84772- 4411 Oct, [facility] [id number] [place] [address] 30185- 6525 Oct, [facility] [id number] [place] [address] 19515- 0630 Oct, [facility] [address] [id number] [place] [address]- 0457 Oct, [facility] [address] [id number] [place] [address]- 1623 Sep, [facility] [place] [facility] [address] [id number] [place] [address]- 5538 Sep, [facility] [place] [facility] [address] [id number] [place] [address]- 8481 Aug, [facility] [place] [facility] [address] [id number] [place] [address]- 8657 Aug, [facility] [place] [facility] [address] [id number] [place] [address]- 0231 Aug, [facility] [place] [facility] [address] [id number] [place] [address]- 0723 Aug, [facility] [place] [facility] [address] [id number] [place] [address]- 8964 July, Diabetes type 2, controlled E11.9 [facility] [place] [facility] [address] [id number] [place] [address]- 4143 July, [facility] [address] [facility] [id number] [place] [address]- 8045 July, [facility] [place] [facility] [address] [id number] [place] [address]- 1874 July, [facility] [place] [facility] [address] [id number] [place] [address]- 9420 July, [facility] [place] [facility] [address] [id number] [place] [address]- 3327 Jun, [facility] [place] [facility] [address] [id number] [place] [address]- 2994 Jun, [facility] [place] [facility] [address] [id number] [place]206 May, [facility] [place] [facility] [address] [id number], [place] [address]- 3686 May, [facility] [address] [facility] [id number], [place] [address]- 7959 May, [facility] [place] [facility] [id number], [place] [address]- 4756 May, Controlled type 2 diabetes mellitus without complication, without long-term current use of insulin E11.9 [facility] [address] [facility] [id number], [place] [address]- 8846 Apr, [facility] [address] [facility] [id number], [place] [address]- 7854 Apr, [facility] [id number] [place] [address] 12026- 0126 Mar, [facility] [address], [place] [address]- 9035 Mar, [facility] [address], [place] [address]- 2588 Feb, [facility] [id number], [place] [address]- 7506 Feb, [facility] [id number], [place] [address]- 6963 Jan, [facility] [address], [place] [address]- 0680 Jan, [facility] [id number], [place] [address]- 8541 Jan, [facility] [address] [facility] [id number] 3177 Dec, [facility] [address] [facility] [id number], [place] [address]- 1026 Dec, [facility] [id number], [place] [address]- 5694 Dec, [facility] [address] [facility] [id number] [place] [address] 31999- 7770 29 Nov, 2015 Diabetes type 2, uncontrolled E11.65 [facility] [address], [place] [address]- 2701 14 Nov, 2015 [facility] [id number] [place] [address] 96682- 6024 Nov, [facility] [id number] [place] [address] 50171- 6089 Oct, [facility] [id number] [place] [address] 67060- 2793 Oct, [facility] [id number] [place] [address] 82121- 9936 Sep, Controlled type 2 diabetes mellitus without complication, without long-term current use of insulin E11.9 [facility] [id number] [place] [address] 32965- 8545 Sep, [facility] [id number] [place] [address] 61787- 3089 Sep, [facility] [id number] [place] [address] 96588- 8158 Sep, [facility] [id number] [place] [address] 78746- 6447 Sep, [facility] [id number] [place] [address] 74582- 4936 Aug, Diabetes type 2, controlled E11.9 ; Anxiety F41.9 ; Carpal tunnel syndrome, left upper limb G56.02 and Carpal tunnel syndrome, right upper limb G56.01 [facility] [id number], [place] [address]- 6544 Aug, Urethritis N34.2 [facility] [id number], [place] [address]- 4200 Aug, [facility] [id number] [place] [address] 53584- 1636 July, Genital warts A63.0 [facility] [address] [facility] [id number] [place] [address]- 9776 July, [facility] [address] [facility] [id number], [place] [address]- 3746 July, Genital warts A63.0 [facility] [address] [facility] [id number], [place] [address]- 8466 July, Anxiety F41.9 [facility] [address] [facility] [id number], [place] [address]- 6616 Jun, Genital warts A63.0 [facility] [address] [facility] [id number] [place] [address], [place] [address]- 0736 Jun, Anxiety F41.9 [facility] [address], [place] [address]- 2987 May, Genital warts A63.0 and Diabetes type 2, uncontrolled E11.65 [facility] [address] [facility] [id number], [place] [address]- 5469 May, [facility] [id number], [place] [address]- 3893 May, [facility] [id number], [place] [address]- 6527 Apr, [facility] [address] [facility] [id number], [place] [address]- 1596 Apr, [facility] [address] [facility] [id number], [place] [address]- 0245 Apr, Diabetes type 2, controlled E11.9 [facility] [address] [facility] [id number] [place] [address] 2546 Apr, Genital warts A63.0 [facility] [id number] [place] [address]- 1446 Apr, [facility] [id number] [place] [address] 26626- 4896 Apr, Diabetes type 2, uncontrolled E11.65 and Genital warts A63.0 [facility] [id number] [place] [address] 98016- 7432 Apr, [facility] [id number] [place] [address] 54420- 5082 Mar, [facility] [id number] [place] [address] 75022- 9607 Mar, [facility] [id number] [place] [address] 10989- 0121 Mar, Family history of diabetes mellitus V18.0 and Weight loss R63.4 [facility] [id number] [place] [address] 06852- 3797 Mar, Genital warts A63.0 and Family history of diabetes mellitus V18.0 [facility] [id number] [place] [address] 16680- 4453 Feb, [facility] [id number] [place] [address] 45487- 1845 Jan, [facility] [id number] [place] [address] 99282- 6311 Jan, Perianal venereal warts A63.0 [facility] [id number] [place] [address] 56535- 0752 Jan, Urethritis N34.2 and Anxiety F41.9 [facility] [id number] [place] [address] 38809- 4453 Jan, [facility] [id number] [place] [address] 18063- 3801 Jan, Urinary tract infection, site unspecified N39.0 [facility] [id number] [place] [address] 02120- 4378 Jan, [facility] [address] [id number] [place] [address]- 1566 Dec, [facility] [id number] [place] [address] 70043- 0970 Dec, HPV (human papilloma virus) anogenital infection A63.0 ; Anxiety F41.9 and Gastroesophageal reflux disease without esophagitis K21.9 [facility] [id number] [place] [address] 886117- 1332 Sep, Blood in stool 578.1 [facility] [id number] [place] [address] 11891- 7006 Aug, Blood in stool 578.1 [facility] [address] 57683- 3208 Aug, Anxiety 300.00 and Blood in stool 578.1 [place] [id number] [place] [address] 44042- 6486 July, [facility] [id number] [place] [address] 36069- 9724 July, Family history of diabetes mellitus V18.0 [place] [id number] [place] [address] 25734- 5884 July, Family history of diabetes mellitus V18.0 ; Family history of thyroid disease V18.19 ; Polyuria 788.42 ; Polydipsia 783.5 ; Alopecia 704.00 and Fatigue 780.79 [facility] [id number] [place] [address] 63687- 4089 Jun, [facility] [id number] [place] [address] 23241- 7059 Jun, [place] [id number] [place] [address] [id number]- 3392 Mar, [facility] [id number] [place] [address] 74600218- 4930 Mar, [facility] [address] [place] [address]- 8987 Mar, [facility] [place] [facility] [address] [id number] [place] [address]- 9127 Mar, [facility] [place] [facility] [address] [id number] [place] [address]- 6014 Mar, [facility] [place] [facility] [address] [id number] [place] [address]- 9288 Mar, [facility] [place] [facility] [address] [id number] [place] [address]- 1368 Mar, [facility] [place] [facility] [address] [id number] [place] [address]- 9841 Mar, [facility] [place] [facility] [address] [id number] [place] [address]- 5494 Mar, [facility] [place] [facility] [address] [id number] [place] [address]- 9086 Mar, [facility] [place] [facility] [address] [id number], [place] [address]- 4636 Feb, [facility] [place] [facility] [address] [id number] [place] [address]- 6714 Feb, [facility] [place] [facility] [address] [facility] [id number] [place] [address]- 1128 Jan, [facility] [place] [facility] [address] [id number] [place] [address]- 3460 Jan, [facility] [place] [facility] [address] [id number], [place] [address]- 4760 Jan, [facility] [place] [facility] [address] [id number], [place] [address]- 4714 Jan, [facility] [place] [facility] [address] [id number] [place] [address]- 1088 Dec, [facility] [place] [facility] [address] [id number], [place] [address]- 9460 Dec, [facility] [place] [facility] [address] [id number] [place] [address]- 7185 Nov, [facility] [place] [facility] [address] [id number] [place] [address]- 3855 Nov, [facility] [place] [facility] [address] [id number] [place] [address]- 5853 Oct, [facility] [place] [facility] [address] [id number] [place] [address]- 5761 Oct, [facility] [place] [facility] [address] [id number] [place] [address]- 7578 Oct, [facility] [place] [facility] [address] [id number] [place] [address]- 5216 Oct, [facility] [place] [facility] [address] [id number] [place] [address]- 0882 Oct, [facility] [place] [facility] [address] [id number] [place] [address]- 0392 Oct, [facility] [place] [facility] [address] [id number] [place] [address]- 2566 Oct, [facility] [place] [facility] [address] [id number] [place] [address]- 6409 Oct, [facility] [place] [facility] [address] [id number] [place] [address]- 4715 Sep, [facility] [place] [facility] [address] [id number] [place] [address]- 6707 Sep, [facility] [place] [facility] [address] [id number] [place] [address]- 1548 Sep, [facility] [place] [facility] [address] [id number] [place] [address]- 8711 Sep, [facility] [place] [facility] [address] [id number] [place] [address]- 5121 Aug, [facility] [place] [facility] [address] [id number] [place] [address]- 5908 Aug, [facility] [place] [facility] [address] [id number] [place] [address]- 5690 Aug, [facility] [place] [facility] [address] [id number] [place] [address]- 0986 Aug, [facility] [place] [facility] [address] [id number] [place]20 July, [facility] [place] [facility] [address] [id number] [place] [address]- 1426 July, [facility] [place] [facility] [address] [id number] [place] [address]- 4837 July, [facility] [place] [facility] [address] [id number] [place] [address]- 8914 July, [facility] [place] [facility] [address] [id number] [place] [address]- 4416 July, [facility] [place] [facility] [address] [id number] [place] [address]- 8890 July, [facility] [place] [facility] [address] [id number] [place] [address]- 2048 Jun, [facility] [place] [facility] [address] [id number] [place] [address]- 9713 Jun, [facility] [place] [facility] [address] [id number] [place] [address]- 5756 15 Jun, 2013 [facility] [place] [facility] [address] [id number] [place] [address]- 1371 15 Jun, 2013 [facility] [place] [facility] [address] [id number] [place] [address]- 8049 Jun, [facility] [place] [facility] [address] [id number] [place] [address]- 9379 Jun, [facility] [place] [facility] [address] [id number] [place] [address]- 7650 Jun, [facility] [place] [facility] [address] [id number] [place] [address]- 0744 14 Jun, 2013 [facility] [place] [facility] [address] [id number] [place] [address]- 1896 May, [facility] [place] [facility] [address] [id number] [place] [address]- 4386 May, [facility] [place] [facility] [address] [id number] [place] [address]- 8274 May, [facility] [place] [facility] [address] [id number] [place] [address]- 3419 Apr, [facility] [place] [facility] [address] [id number] [place] [address]- 1706 Apr, [facility] [place] [facility] [address] [id number] [place] [address]- 2900 Apr, [facility] [place] [facility] [address] [id number] [place] [address]- 8735 Apr, [facility] [place] [facility] [address] [id number] [place] [address]- 1261 Mar, [facility] [place] [facility] [address] [id number] [place] [address] Mar, [facility] [place] [facility] [address] [id number] [place] [address] Mar, [facility] [place] [facility] [address] [id number] [place] [address] Mar, [facility] [place] [facility] [address] [id number] [place] [address] Mar, [facility] [place] [facility] [address] [id number] [place] [address] Mar, [facility] [place] [facility] [address] [id number] [place] [address] Feb, [facility] [place] [facility] [address] [id number] [place] [address] Feb, [facility] [place] [facility] [address] [id number] [place] [address] Jan, [facility] [place] [facility] [address] [id number] [place] [address] Jan, [facility] [place] [facility] [address] [id number] [place] [address] Jan, [facility] [place] [facility] [address] [id number] [place] [address] Jan, [facility] [place] [facility] [address] [id number] [place] [address] Jan, [facility] [place] [facility] [address] [id number] [place] [address] Jan, [facility] [place] [facility] [address] [id number] [place] [address] Jan, [facility] [place] [facility] [address] [id number] [place] [address] Dec, [facility] [place] [facility] [address] [id number] [place] [address] Dec, [facility] [place] [facility] [address] [id number] [place] [address] Nov, [facility] [place] [facility] [address] [id number] [place] [address] Nov, [facility] [place] [facility] [address] [id number] [place] [address] Nov, [facility] [place] [facility] [address] [id number] [place] [address] Oct, [facility] [place] [facility] [address] [id number] [place] [address] Oct, [facility] [place] [facility] [address] [id number] [place] [address] Oct, [facility] [place] [facility] [address] [id number] [place] [address] Oct, [facility] [address] [id number] [place] [address] Sep, [facility] [address] [facility] [id number] [place] [address] Sep, [facility] [address] [facility] [id number] [place] [address] Aug, [facility] [address] [id number] [place] [address] Aug, [facility] [address] [id number] [place] [address] Aug, [facility] [address] [facility] [id number] [place] [address] Aug, [facility] [id number], [place] [address] July, [facility] [address] [facility] [id number] [place] [address] July, [facility] [address] [id number] [place] [address] July, [facility] [address] [id number] [place] [address] July, [facility] [address] [id number], [place] [address] Jun, [facility] [address] [facility] [id number], [place] [address] Jun, [facility] [address] [facility] [id number], [place] [address] Feb, [facility] [address] [facility] [id number], [place] [address] Feb, [facility] [address] [id number], [place] [address] Mar, IMMUNIZATIONS No Known Immunizations SOCIAL HISTORY Never Assessed REASON FOR VISIT PLAN OF CARE VITAL SIGNS MEDICATIONS Unknown [...]
--- OUTSIDE RECORDS SUMMARY | 2017-10-18 09:20 | XMS REPORT ---
Author MIRELLA Aranda Organization [employer] Address Unknown Phone Unavailable Care Team Providers Care Machinery Engineer Name Role Phone MIRELLA MARIA CP Unavailable Allergies, Adverse Reactions, Alerts Substance Reaction Event Type N.K.D.A. Info Not Available Non Drug Allergy Problems Problem Type Condition Code Onset Dates Condition Status Assessment Controlled type 2 diabetes mellitus without complication, without long-term current use of insulin E11.9 Active Problem Diabetes type 2, uncontrolled E11.65 Active Problem Shoulder pain, right M25.511 Active Problem Diabetes type 2, controlled E11.9 Active Problem Acquired hypothyroidism E03.9 Active Problem Hypertension, benign I10 Active Problem Mood disorder F39 Active Problem Low back pain M54.5 Active Medications Medication Code System Code Instructions Start Date End Date Status Dosage Neurontin [facility] [address]-97 100 MG Orally Three times a day September 08, 2015 1 capsules Ativan [facility] [address]-09 1 MG Orally Twice a day Jan 10, 2015 1 tablet as needed Tramadol HCl [facility] [address]-82 50 mg Orally every 6 hrs June 03, 2015 1 tablet as needed Pantoprazole Sodium [facility] [address]-16 40 mg Orally Once a day Jan 10, 2015 1 tablet Metformin HCl [facility] 65921888264 1000 MG 1 tablet with meals Twice a day Orally 30 day(s) Actos [facility] [address]-13 15 MG Orally Once a day June 03, 2015 1 tablet Procedures Procedure Coding System Code Date Office Visit, Est Pt., Level 3 CPT-4 20579 October 06, 2015 Vital Signs Date/Time: October 06, 2015 Cardiac Monitoring Heart Rate 94 bpm Weight 188.5 lbs Height 68 in Blood Pressure Diastolic 88 mmHg Blood Pressure Systolic 136 mmHg Results No Known Results Summary Purpose [employer] Submission
--- OUTSIDE RECORDS SUMMARY | 2017-10-18 09:20 | XMS REPORT ---
Author Author MIRELLA MARIA Organization [facility] Address [address] [place] [address] Care Team Providers Care Court Recorder Name Role Phone MIRELLA MARIA Unavailable PROBLEMS Type Condition ICD9-CM Code [id number] Code Onset Dates Condition Status SNOMED Code Problem Mood disorder F39 Active 42513044 Problem Low back pain M54.5 Active 962262531 Problem Controlled type 2 diabetes mellitus without complication, without long -term current use of insulin E11.9 Active 712626627 Problem Diabetes type 2, controlled E11.9 Active 06795013 Problem Shoulder pain, right M25.511 Active 72044208 Problem Acquired hypothyroidism E03.9 Active 697045103 Problem Diabetes type 2, uncontrolled E11.65 Active 844246648 Problem Hypertension, benign I10 Active 59092080 ALLERGIES No Information SOCIAL HISTORY Never Assessed [...]
--- OUTSIDE RECORDS SUMMARY | 2017-10-18 09:20 | XMS REPORT ---
Author Author MIRELLA MARIA Organization [employer] Address Unknown Phone Unavailable Care Team Providers Care Tree Trimmer Name Role Phone MIRELLA MARIA CP Unavailable [...] Instructions Start Date End Date [facility] D[facility] [address] 1 MG Orally Twice a day Jan 10, 2015 1 tablet as needed Results No Known Results Summary Purpose [employer] Submission
--- OUTSIDE RECORDS SUMMARY | 2017-10-18 09:20 | XMS REPORT ---
Author Author MIRELLA MARIA Organization [employer] Address Unknown Phone Unavailable Care Team Providers Care Supervisor Word Processing Name Role Phone MIRELLA MARIA CP Unavailable [...] Instructions Start Date End Date [facility] D[facility] [address]-[facility] 1 MG Orally Twice a day Jan 10, 2015 1 tablet as needed Results No Known Results Summary Purpose [employer] Submission
--- OUTSIDE RECORDS SUMMARY | 2017-10-18 09:20 | XMS REPORT ---
Author Author MIRELLA MARIA [facility] Address [address] [place] [address] Care Team Providers Care Lathe Spotter Name Role Phone MIRELLA MARIA Unavailable PROBLEMS Type Condition ICD9-CM Code [id number] Code Onset Dates Condition Status SNOMED Code Problem Mood disorder F39 Active 35560578 Problem Low back pain M54.5 Active 647939980 Problem Controlled type 2 diabetes mellitus without complication, without long -term current use of insulin E11.9 Active 224461635 Problem Diabetes type 2, controlled E11.9 Active 41481088 Problem Shoulder pain, right M25.511 Active 14883076 Problem Acquired hypothyroidism E03.9 Active 085502455 Problem Diabetes type 2, uncontrolled E11.65 Active 411215190 Problem Hypertension, benign I10 Active 21104759 ALLERGIES No Information SOCIAL HISTORY Never Assessed [...]
--- OUTSIDE RECORDS SUMMARY | 2017-10-18 09:20 | XMS REPORT ---
Author MIRELLA Aranda Organization [employer] Address Unknown Phone Unavailable Care Team Providers Care Marine Diesel Technician Name Role Phone MIRELLA MARIA CP Unavailable Allergies, Adverse Reactions, Alerts Substance Reaction Event Type N.K.D.A. Info Not Available Non Drug Allergy Problems Problem Type Condition Code Onset Dates Condition Status Problem Unspecified hypothyroidism 244.9 Active Problem Other specified visual disturbances 368.8 Active Problem Contact with or exposure to unspecified communicable disease V01.9 Active Problem Sprain and strain of unspecified site of knee and leg 844.9 Active Problem Unspecified nongonococcal urethritis (MASOOD) 099.40 Active Problem Pain in joint, shoulder region 719.41 Active Problem Lumbago 724.2 Active Problem Other chronic pain 338.29 Active Problem Unspecified urethral stricture 598.9 Active Problem Anxiety state, unspecified 300.00 Active Assessment Gastroesophageal reflux disease without esophagitis K21.9 Active Assessment Anxiety F41.9 Active Assessment HPV (human papilloma virus) anogenital infection A63.0 Active Problem Essential hypertension, benign 401.1 Active Medications Medication Code System Code Instructions Start Date End Date Status Dosage Ativan [facility] [address]-94 0.5 MG Orally Twice a day Jan 10, 2015 1 tablet as needed Pantoprazole Sodium [facility] [address]-29 40 MG Orally Once a day Jan 10, 2015 1 tablet Procedures Procedure Coding System Code Date Office Visit, Est Pt., Level 3 CPT-4 05757 Jan 10, 2015 Vital Signs Date/Time: Jan 10, 2015 Temperature 99.0 F Weight 218.3 lbs Height 68 in BMI 33.19 Index Blood Pressure Diastolic 90 mmHg Blood Pressure Systolic 142 mmHg Cardiac Monitoring Heart Rate 80 bpm Results No Known Results Summary Purpose [employer] Submission
--- OUTSIDE RECORDS SUMMARY | 2017-10-18 09:20 | XMS REPORT ---
Author Author MIRELLA MARIA Organization [employer] Address Unknown Phone Unavailable Care Team Providers Care Manager Stylist Name Role Phone MIRELLA MARIA CP Unavailable Allergies No Known Allergies Problems Problem Type Condition Code Onset Dates Condition Status Problem Mood disorder F39 Active Problem Low back pain M54.5 Active Problem Shoulder pain, right M25.511 Active Assessment Family history of diabetes mellitus V18.0 Active Assessment Weight loss R63.4 Active Problem Acquired hypothyroidism E03.9 Active Problem Hypertension, benign I10 Active Medications No Known Medications Procedures Procedure Coding System Code Date COMPLETE CBC W/AUTO DIFF WBC CPT-4 86759 Apr 10, 2015 COMPREHEN METABOLIC PANEL CPT-4 03947 Apr 10, 2015 GLYCATED HEMOGLOBIN TEST CPT-4 98835 Apr 10, 2015 VENIPUNCT, ROUTINE* CPT-4 57927 Apr 10, 2015 LIPID PANEL CPT-4 34180 Apr 10, 2015 Results Name Result Date Reference Range Unit Abnormality Flag ROUTINE VENIPUNCTURE Summary Purpose [employer] Submission
--- OUTSIDE RECORDS SUMMARY | 2017-10-18 09:20 | XMS REPORT ---
Author Author MIRELLA MARIA [facility] Address [address] [place] [address] Care Team Providers Care Electrical Controls Designer Name Role Phone MIRELLA MARIA Unavailable PROBLEMS Type Condition ICD9-CM Code [id number] Code Onset Dates Condition Status SNOMED Code Problem Hypertension, benign I10 Active 04428526 Problem Diabetes type 2, controlled E11.9 Active 81673495 Problem Diabetes type 2, uncontrolled E11.65 Active 603276956 Problem Low back pain M54.5 Active 737125592 Problem Acquired hypothyroidism E03.9 Active 214944576 Problem Shoulder pain, right M25.511 Active 03978747 Problem Mood disorder F39 Active 89970339 ALLERGIES Unknown Allergies SOCIAL HISTORY No smoking Hx information available PLAN OF CARE VITAL SIGNS MEDICATIONS Medication Instructions Dosage Frequency Start Date End Date Duration Status Neurontin 100 MG Orally Three times a day 1 capsules 8h 20 Aug, 2015 30 Active Ativan 1 MG Orally Twice a day 1 tablet as needed 12h 23 Dec, 2014 Active RESULTS No Results PROCEDURES No Known procedures IMMUNIZATIONS No Known Immunizations
--- OUTSIDE RECORDS SUMMARY | 2017-10-18 09:21 | XMS REPORT ---
Author Author MIRELLA MARIA Organization [facility] Address [address] [place] [address] Care Team Providers Care Data Virtualization Consultant Name Role Phone MIRELLA MARIA Unavailable PROBLEMS Type Condition ICD9-CM Code [id number] Code Onset Dates Condition Status SNOMED Code Problem Mood disorder F39 Active 94462657 Problem Low back pain M54.5 Active 789271903 Problem Controlled type 2 diabetes mellitus without complication, without long -term current use of insulin E11.9 Active 118119312 Problem Diabetes type 2, controlled E11.9 Active 22214133 Problem Shoulder pain, right M25.511 Active 60594985 Problem Acquired hypothyroidism E03.9 Active 900921363 Problem Diabetes type 2, uncontrolled E11.65 Active 686065190 Problem Hypertension, benign I10 Active 49140680 ALLERGIES No Information SOCIAL HISTORY Never Assessed [...]
--- OUTSIDE RECORDS SUMMARY | 2017-10-18 09:21 | XMS REPORT ---
Author Author MIRELLA MARIA Organization [employer] Address Unknown Phone Unavailable Care Team Providers Care Loading Supervisor Name Role Phone MIRELLA MARIA CP Unavailable [...] Date End Date Status Dosage [facility] [address]-64 40 MG Orally Once a day Jan 10, 2015 1 tablet Results No Known Results Summary Purpose [employer] Submission
--- OUTSIDE RECORDS SUMMARY | 2017-10-18 09:21 | XMS REPORT ---
Author Author MIRELLA MARIA [facility] Address [address] [place] [address] Care Team Providers Care Student Accounts Coordinator Name Role Phone MIRELLA MARIA Unavailable PROBLEMS Type Condition ICD9-CM Code [id number]-SO Code Onset Dates Condition Status SNOMED Code Problem Mood disorder F39 Active 22151540 Problem Low back pain M54.5 Active 821754943 Problem Controlled type 2 diabetes mellitus without complication, without long -term current use of insulin E11.9 Active 440416193 Problem Diabetes type 2, controlled E11.9 Active 23174328 Problem Shoulder pain, right M25.511 Active 93753144 Problem Acquired hypothyroidism E03.9 Active 793570052 Problem Diabetes type 2, uncontrolled E11.65 Active 933148284 Problem Hypertension, benign I10 Active 81769274 ALLERGIES No Known Allergies SOCIAL HISTORY Never Assessed PLAN OF CARE Activity Details Follow Up 4 Weeks Reason:dm2 ooc VITAL SIGNS Height 68 in 2016-07-29 Weight 202.5 lbs 2016-07-29 Temperature 98.5 degrees Fahrenheit 2016-07-29 Heart Rate 76 bpm 2016-07-29 Respiratory Rate 18 2016-07-29 BMI 30.79 kg/m2 2016-07-29 Blood pressure systolic 138 mmHg 2016-07-29 Blood pressure diastolic 92 mmHg 2016-07-29 MEDICATIONS Medication Instructions Dosage Frequency Start Date End Date Duration Status Actos 15 MG Orally Once a day 1 tablet 24h 30 Active [place] Contour Next Test 1 In Vitro 2 times a day 1 test 12h 15 May, 2015 Active Neurontin 300 MG TAKE ONE CAPSULE BY MOUTH THREE TIMES DAILY 30 Active Tramadol HCl 50 MG Orally every 6 hrs 1 tablet as needed 6h May, 28 days Active Metformin HCl 1000 MG TAKE ONE TABLET BY MOUTH TWICE DAILY WITH MEALS 30 Active Ativan 1 MG Orally Twice a day 1 tablet as needed 12h 23 Dec, 2014 28 days Active Pantoprazole Sodium 40 mg Orally Once a day 1 tablet 24h 30 Active RESULTS No Results PROCEDURES No [...]
--- OUTSIDE RECORDS SUMMARY | 2017-10-18 09:21 | XMS REPORT ---
Author Author MIRELLA MARIA Organization [facility] Address [address] [place] [address] Care Team Providers Care Fuselage Framer Name Role Phone MIRELLA MARIA Unavailable PROBLEMS Type Condition ICD9-CM Code AYD90-UC Code Onset Dates Condition Status SNOMED Code Problem Mood disorder F39 Active 46887016 Problem Shoulder pain, right M25.511 Active 87401146 Problem Acquired hypothyroidism E03.9 Active 733123476 Problem Low back pain M54.5 Active 164763776 Problem Cervical radiculopathy M54.12 Active 89236257 Problem History of urethral stricture Z87.448 Active 846534835 Problem Diabetes type 2, uncontrolled E11.65 Active 413801360 Problem Hypertension, benign I10 Active 10197498 Problem Controlled type 2 diabetes mellitus without complication, without long -term current use of insulin E11.9 Active 681848370 Problem Diabetes type 2, controlled E11.9 Active 14525263 ALLERGIES No Information ENCOUNTERS Encounter Location Date Diagnosis [facility] [id number] [place] [address] 61438- 6508 Jun, [facility] [id number] [place] [address] 99835- 6281 19 May, 2017 [facility] [id number] [place] [address] 87524- 9741 16 May, 2017 Radiculopathy of cervical region M54.12 [facility] [id number] [place] [address] 92764- 9549 14 May, 2017 Controlled type 2 diabetes mellitus without complication, without long-term current use of insulin E11.9 [facility] [id number] [place] [address] 62802- 5880 May, [facility] [id number] [place] [address] 21785- 7040 May, Controlled type 2 diabetes mellitus without complication, without long-term current use of insulin E11.9 [place] [address] [address] 3692 May, Controlled type 2 diabetes mellitus without complication, without long-term current use of insulin E11.9 [place] [facility] [address] [address]- 6439 May, Controlled type 2 diabetes mellitus without complication, without long-term current use of insulin E11.9 [place] [address] [address]- 6770 Apr, [place] [id number] [place] [address] 26461- 2918 Apr, Controlled type 2 diabetes mellitus without complication, without long-term current use of insulin E11.9 [place] [id number] [place] [address] 60108- 8370 Apr, [place] [id number] [place] [address] 21402- 7615 Apr, Controlled type 2 diabetes mellitus without complication, without long-term current use of insulin E11.9 [place] [address] [address]- 4715 Mar, [place] [address] [address]- 6939 Mar, Radiculopathy of cervical region M54.12 [place] [address] [address]- 5721 Mar, Controlled type 2 diabetes mellitus without complication, without long-term current use of insulin E11.9 [place] [address] 4930 Feb, Cervical radiculopathy M54.12 ; Acute cystitis without hematuria N30.00 and History of urethral stricture Z87.448 [place] [id number] [place] [address] 59619- 6286 Feb, Controlled type 2 diabetes mellitus without complication, without long-term current use of insulin E11.9 [facility] [id number] [place] [address] 79093- 2397 Feb, [facility] [id number] [place] [address] 68699- 9402 Jan, Diabetes type 2, uncontrolled E11.65 [facility] [address] 98947- 2037 Jan, [facility] [id number] [place] [address] 06831- 8531 Jan, Controlled type 2 diabetes mellitus without complication, without long-term current use of insulin E11.9 ; Chest wall pain R07.89 and Thoracic spine pain M54.6 [facility] [address] 63553- 2386 Dec, [facility] [id number] [place] [address] 87020- 9889 Dec, [facility] [id number] [place] [address] 57510- 4714 Nov, [facility] [id number] [place] [address] 73267- 4258 Nov, [facility] [id number] [place] [address] 09437 -5258 Nov, Trichomonas exposure Z20.2 [facility] [id number] [place] [address] 16055- 7425 Oct, [facility] [address] 77046- 0986 Oct, [facility] [id number] [place] [address] 48555- 3453 Oct, [facility] [id number] [place] [address] 41814- 9763 Oct, [facility] [address] [id number] [place] [address]- 6781 Sep, [facility] [address] [id number] [place] [address]- 4252 Sep, [facility] [address] [id number] [place] [address]- 2058 Aug, [facility] [address] [id number] [place] [address]- 2473 Aug, [facility] [address] [id number] [place] [address]- 4866 Aug, [facility] [address] [id number] [place] [address]- 1006 Aug, [facility] [address] [id number] [place] [address]- 9969 July, Diabetes type 2, controlled E11.9 [facility] [address] [id number] [place] [address]- 3918 July, [facility] [address] [id number] [place] [address]- 1498 July, [facility] [address] [id number] [place] [address]- 7172 July, [facility] [address] [id number] [place] [address]- 9337 July, [facility] [address] [id number] [place] [address]- 6737 Jun, [facility] [place] [facility] [address] [id number] [place] [address]- 2133 Jun, [facility] [place] [facility] [address] [id number] [place] 2232 16 May, 2016 [facility] [place] [facility] [address] [id number] [place] 1036 May, [facility] [address] [address]- 0017 May, [facility] [address] 5707 May, Controlled type 2 diabetes mellitus without complication, without long-term current use of insulin E11.9 [facility] [address] [place] [address]- 1812 Apr, [facility] [address] [facility] [id number] [place] [address] 66383- 3923 Apr, [facility] [address] [facility] [id number] [place] [address]- 1412 Mar, [facility] [id number] [place] [address] 67476- 6510 Mar, [facility] [address] [address]- 3320 Feb, [facility] [address] [address]- 7267 Feb, [facility] [address] [address]- 7001 Jan, [facility] [address] [address]- 8589 Jan, [facility] [address] [address]- 7662 Jan, [facility] [address] [address]- 8286 Dec, [facility] [address] 5346 Dec, [facility] [address] 9502 Dec, [facility] [id number] [address]- 4037 29 Nov, 2015 Diabetes type 2, uncontrolled E11.65 [facility] [address] [address]- 8774 14 Nov, 2015 [facility] [id number] [place] [address] 75001- 1818 09 Nov, 2015 [facility] [address] [address]- 9804 16 Oct, 2015 [facility] [id number] [place] [address] 10916- 7096 Oct, [facility] [id number] [place] [address] 94843- 3324 Sep, Controlled type 2 diabetes mellitus without complication, without long-term current use of insulin E11.9 [facility] [id number] [place] [address] 19351- 6435 Sep, [facility] [id number] [place] [address] 76697- 5760 Sep, [facility] [id number] [place] [address] 31168- 2036 Sep, [facility] [address] [place] [address] 79560- 8654 Sep, [facility] [id number] [place] [address] 06850- 0613 Aug, Diabetes type 2, controlled E11.9 ; Anxiety F41.9 ; Carpal tunnel syndrome, left upper limb G56.02 and Carpal tunnel syndrome, right upper limb G56.01 [facility] [address] [address]- 6531 Aug, Urethritis N34.2 [facility] [id number] [place] [address] 98665- 3061 Aug, [facility] [address] [address]- 9223 July, Genital warts A63.0 [facility] [id number] [address]- 9396 July, [facility] [address] [address]- 9456 July, Genital warts A63.0 [facility] [address] [address] 2546 July, Anxiety F41.9 [facility] [id number] [place] [address] 97536 2546 Jun, Genital warts A63.0 [facility] [id number] [place] [address] 90152- 1046 Jun, Anxiety F41.9 [facility] [address] [place] [address] 25313- 5936 May, Genital warts A63.0 and Diabetes type 2, uncontrolled E11.65 [facility] [id number] [place] [address] 13119- 5186 May, [facility] [address] [address]- 9446 May, [facility] [id number] [place] [address] 24832- 4267 Apr, [facility] [address] [address]- 4386 Apr, [facility] [address] [address] 2546 Apr, Diabetes type 2, controlled E11.9 [facility] [address] [address] 2546 Apr, Genital warts A63.0 [facility] [address] [address]- 2546 Apr, [facility] [address] [address]- 2546 Apr, Diabetes type 2, uncontrolled E11.65 and Genital warts A63.0 [facility] [id number] [place] [address] 91540- 1785 Apr, [facility] [id number] [place] [address] 73256- 3432 Mar, [facility] [id number] [place] [address] 33297- 5865 Mar, [facility] [id number] [place] [address] 85510- 7220 Mar, Family history of diabetes mellitus V18.0 and Weight loss R63.4 [facility] [id number] [place] [address] 26122- 8553 Mar, Genital warts A63.0 and Family history of diabetes mellitus V18.0 [place] [id number] [place] [address] 89671- 8231 Feb, [facility] [id number] [place] [address] 58779- 7810 Jan, [facility] [id number] [place] [address] 10679- 1054 Jan, Perianal venereal warts A63.0 [facility] [id number] [place] [address] 93739- 5727 Jan, Urethritis N34.2 and Anxiety F41.9 [facility] [address] [place] [address] 00483- 1553 Jan, [facility] [address] [place] [address] 24069- 9910 Jan, Urinary tract infection, site unspecified N39.0 [facility] [id number] [place] [address] 90441- 7627 Jan, [facility] [address] [place] [address] 17631- 5658 Dec, [place] [address] [place] [address] 07047584- 5646 Dec, HPV (human papilloma virus) anogenital infection A63.0 ; Anxiety F41.9 and Gastroesophageal reflux disease without esophagitis K21.9 [place] [id number] [place] [address] 90244- 9036 Sep, Blood in stool 578.1 [place] [address] 350802- 3790 Aug, Blood in stool 578.1 [place] [id number] [place] [address] 74888- 3039 Aug, Anxiety 300.00 and Blood in stool 578.1 [place] [id number] [place] [address] 819959- 4806 July, [address] [address]60- 3338 July, Family history of diabetes mellitus V18.0 [place] [id number] [place] [address] 073030- 2270 July, Family history of diabetes mellitus V18.0 ; Family history of thyroid disease V18.19 ; Polyuria 788.42 ; Polydipsia 783.5 ; Alopecia 704.00 and Fatigue 780.79 [place] [id number] [place] [address] 78583- 1601 Jun, [place] [id number] [place] [address] 18296- 9679 Jun, [place] [id number] [place] [address] 60720- 6453 Mar, [place] [id number] [place] [address] 310738- 5679 Mar, [place] [id number] [place] [address] [id number]- 8871 Mar, [address] [id number] [place] [address]- 0949 Mar, [facility] [place] [facility] [address] [id number] [place] [address]- 2772 Mar, [facility] [place] [facility] [address] [id number] [place] [address]- 9636 Mar, [facility] [place] [facility] [address] [id number] [place] [address]- 4472 Mar, [facility] [place] [facility] [address] [id number] [place] [address]- 9682 Mar, [facility] [place] [facility] [address] [id number] [place] [address]- 7179 Mar, [facility] [place] [facility] [address] [id number] [place] [address]- 1598 Mar, [facility] [place] [facility] [address] [id number] [place] [address]- 4097 Feb, [facility] [place] [facility] [address] [id number] [place] [address]- 0160 Feb, [facility] [place] [facility] [address] [id number] [place] [address]- 9741 Jan, [facility] [place] [facility] [address] [id number] [place] [address]- 4561 Jan, [facility] [place] [facility] [address] [id number] [place] [address]- 0310 Jan, [facility] [place] [facility] [address] [id number] [place] [address]- 8305 Jan, [facility] [place] [facility] [address] [id number] [place] [address]- 9534 Dec, [facility] [place] [facility] [address] [id number] [place] [address]- 0776 Dec, [facility] [place] [facility] [address] [id number] [place] [address]- 0741 Nov, [facility] [place] [facility] [address] [id number] [place] [address]- 9026 Nov, [facility] [place] [facility] [address] [id number] [place] [address]- 7366 Oct, [facility] [place] [facility] [address] [id number] [place] [address]- 2896 Oct, [facility] [place] [facility] [address] [id number] [place] [address]- 7085 Oct, [facility] [place] [facility] [address] [id number] [place] [address]- 6325 Oct, [facility] [place] [facility] [address] [id number] [place] [address]- 1144 Oct, [facility] [place] [facility] [address] [id number] [place] [address]- 6624 Oct, [facility] [place] [facility] [address] [id number] [place] [address]- 4682 Oct, [facility] [place] [facility] [address] [id number] [place] [address]- 0055 Oct, [facility] [place] [facility] [address] [id number] [place] [address]- 2676 Sep, [facility] [place] [facility] [address] [id number] [place] [address]- 0141 Sep, [facility] [place] [facility] [address] [id number] [place] [address]- 0514 Sep, [facility] [place] [facility] [address] [id number] [place] [address]- 5121 Sep, [facility] [place] [facility] [address] [id number] [place] [address]- 0396 Aug, [facility] [place] [facility] [address] [id number] [place] [address]- 2698 Aug, [facility] [place] [facility] [address] [id number] [place] [address]- 7099 Aug, [facility] [place] [facility] [address] [id number] [place] [address]- 1275 Aug, [facility] [place] [facility] [address] [id number] [place] [address]- 7823 July, [facility] [place] [facility] [address] [id number] [place] [address]- 8572 July, [facility] [place] [facility] [address] [id number] [place] [address]- 1653 July, [facility] [place] [facility] [address] [id number] [place] [address]- 0217 July, [facility] [place] [facility] [address] [id number] [place] [address]- 8673 July, [facility] [place] [facility] [address] [id number] [place] [address]- 0928 July, [facility] [place] [facility] [address] [id number] [place] [address]- 0701 Jun, [facility] [place] [facility] [address] [id number] [place] [address]- 5345 Jun, [facility] [place] [facility] [address] [id number] [place] [address]- 0634 Jun, [facility] [place] [facility] [address] [id number] [place] [address]- 4688 15 Jun, 2013 [facility] [place] [facility] [address] [id number] [place] [address]- 9493 14 Jun, 2013 [facility] [place] [facility] [address] [id number] [place] [address]- 5061 Jun, [facility] [place] [facility] [address] [id number] [place] [address]- 6975 Jun, [facility] [place] [facility] [address] [id number] [place] [address]- 6355 Jun, [facility] [place] [facility] [address] [id number] [place] [address]- 9252 May, [facility] [place] [facility] [address] [id number] [place] [address]- 2496 May, [facility] [place] [facility] [address] [id number] [place] [address]- 7072 May, [facility] [place] [facility] [address] [id number] [place] [address]- 4462 Apr, [facility] [place] [facility] [address] [id number] [place] [address]- 8983 Apr, [facility] [place] [facility] [address] [id number] [place] [address]- 0979 Apr, [facility] [place] [facility] [address] [id number] [place] [address]- 7384 Apr, [facility] [place] [facility] [address] [id number] [place] [address]- 2060 Mar, [facility] [place] [facility] [address] [id number] [place] [address]- 6063 Mar, [facility] [place] [facility] [address] [id number] [place] [address]- 2192 Mar, [facility] [place] [facility] [address] [id number] [place] [address]- 6646 Mar, [facility] [place] [facility] [address] [id number] [place] [address]- 6286 Mar, [facility] [place] [facility] [address] [id number] [place] [address]- 5200 Mar, [facility] [place] [facility] [address] [id number] [place] [address]- 1200 Feb, [facility] [place] [facility] [address] [id number] [place] 1851 Feb, [facility] [place] [facility] [address] [id number] [place] [address]- 6746 Jan, [facility] [place] [facility] [address] [id number] [place] [address] Jan, [facility] [place] [facility] [address] [id number] [place] [address] Jan, [facility] [place] [facility] [address] [id number] [place] [address] Jan, [facility] [place] [facility] [address] [id number] [place] [address] Jan, [facility] [place] [facility] [address] [id number] [place] [address] Jan, [facility] [place] [facility] [address] [id number] [place] [address] Jan, [facility] [place] [facility] [address] [id number] [place] [address] Dec, [facility] [place] [facility] [address] [id number] [place] [address] Dec, [facility] [place] [facility] [address] [id number] [place] [address] Nov, [facility] [place] [facility] [address] [id number] [place] [address] Nov, [facility] [place] [facility] [address] [id number] [place] [address] Nov, [facility] [place] [facility] [address] [id number] [place] [address] Oct, [facility] [place] [facility] [address] [id number] [place] [address] Oct, [facility] [place] [facility] [address] [id number] [place] [address] Oct, [facility] [place] [facility] [address] [id number] [place] [address] Oct, [facility] [place] [facility] [address] [facility] [id number] [address] Sep, [facility] [address] [facility] [id number] [address] Sep, [facility] [address] [facility] [id number] [place] [address] Aug, [facility] [address] [facility] [id number] [address] Aug, [facility] [address] [facility] [id number] [place] [address] Aug, [facility] [address] [facility] [id number] [place] [address] Aug, [facility] [address] [facility] [id number] [address] July, [facility] [id number] [address] July, [facility] [address] [id number] [address] July, [facility] [address] [id number] [address] July, [facility] [address] [id number] [address] Jun, [facility] [address] [id number] [address] Jun, [facility] [address] [facility] [id number] [place] [address] Feb, [facility] [address] [id number] [address] Feb, [facility] [address] [id number] [address] Mar, IMMUNIZATIONS No Known Immunizations SOCIAL HISTORY Never Assessed REASON FOR VISIT Controlled Med Refill 10/21/16 PLAN OF CARE VITAL SIGNS MEDICATIONS Medication [...]
--- OUTSIDE RECORDS SUMMARY | 2017-10-18 09:21 | XMS REPORT ---
Author Author MIRELLA MARIA Organization [employer] Address Unknown Phone Unavailable Care Team Providers Care Recordist Chief Name Role Phone MIRELLA MARIA CP Unavailable [...] Date End Date Status Dosage Tramadol HCl [facility] [address]-51 50 mg Orally every 6 hrs June 03, 2015 1 tablet as needed Results No Known Results Summary Purpose [employer] Submission
--- OUTSIDE RECORDS SUMMARY | 2017-10-18 09:21 | XMS REPORT ---
Author Author MIRELLA MARIA [facility] Address [address] [place] [address] Care Team Providers Care User Interface Designer Name Role Phone MIRELLA MARIA Unavailable PROBLEMS Type Condition ICD9-CM Code FPG88-VC Code Onset Dates Condition Status SNOMED Code Problem Mood disorder F39 Active 80950921 Problem Low back pain M54.5 Active 555676745 Problem Controlled type 2 diabetes mellitus without complication, without long -term current use of insulin E11.9 Active 248425846 Problem Diabetes type 2, controlled E11.9 Active 12256602 Problem Shoulder pain, right M25.511 Active 40348453 Problem Acquired hypothyroidism E03.9 Active 519213391 Problem Diabetes type 2, uncontrolled E11.65 Active 254287638 Problem Hypertension, benign I10 Active [id number] ALLERGIES No Information SOCIAL HISTORY Never Assessed PLAN OF CARE VITAL SIGNS MEDICATIONS Unknown [...]
--- OUTSIDE RECORDS SUMMARY | 2017-10-18 09:22 | XMS REPORT ---
Author Author JODY LACKEY [facility] Address [address] [place] [address] Care Team Providers Care Materials Branch Chief Name Role Phone JODY LACKEY Unavailable PROBLEMS Type Condition ICD9-CM Code [id number] Code Onset Dates Condition Status SNOMED Code Problem Mood disorder F39 Active 03924338 Problem Shoulder pain, right M25.511 Active 14603790 Problem Acquired hypothyroidism E03.9 Active 800834919 Problem Low back pain M54.5 Active 832642420 Problem Cervical radiculopathy M54.12 Active 09850286 Problem History of urethral stricture Z87.448 Active 811503198 Problem Diabetes type 2, uncontrolled E11.65 Active 719097863 Problem Hypertension, benign I10 Active 20691948 Problem Controlled type 2 diabetes mellitus without complication, without long -term current use of insulin E11.9 Active 739007681 Problem Diabetes type 2, controlled E11.9 Active 17925037 ALLERGIES No Information ENCOUNTERS Encounter Location Date Diagnosis [place] [id number] [place] [address] 00335- 2580 Jun, [facility] [id number] [place] [address] 60022- 2823 19 May, 2017 [facility] [id number] [place] [address] 40640- 2837 16 May, 2017 Radiculopathy of cervical region M54.12 [facility] [id number] [place] [address] 96644- 1661 14 May, 2017 Controlled type 2 diabetes mellitus without complication, without long-term current use of insulin E11.9 [facility] [id number] [place] [address] 40742- 5491 12 May, 2017 [facility] [address] [address]20- 5602 May, Controlled type 2 diabetes mellitus without complication, without long-term current use of insulin E11.9 [place] [address] [address] 5623 May, Controlled type 2 diabetes mellitus without complication, without long-term current use of insulin E11.9 [place] [address] [address] 5107 May, Controlled type 2 diabetes mellitus without complication, without long-term current use of insulin E11.9 [place] [id number], [place] [address]- 8409 Apr, [place] [id number] [place] [address] 55655- 1483 Apr, Controlled type 2 diabetes mellitus without complication, without long-term current use of insulin E11.9 [place] [address], [place] [address]- 1719 Apr, [place] [address] [place] [address]- 0384 Apr, Controlled type 2 diabetes mellitus without complication, without long-term current use of insulin E11.9 [place] [id number] [address]- 6302 Mar, [place] [address] [address]- 2670 Mar, Radiculopathy of cervical region M54.12 [place] [id number] [address]- 1252 Mar, Controlled type 2 diabetes mellitus without complication, without long-term current use of insulin E11.9 [place] [id number] 0755 Feb, Cervical radiculopathy M54.12 ; Acute cystitis without hematuria N30.00 and History of urethral stricture Z87.448 [place] [id number] [place] [address] 57459- 2913 Feb, Controlled type 2 diabetes mellitus without complication, without long-term current use of insulin E11.9 [facility] [id number] [place] [address] 07741- 1595 Feb, [facility] [id number] [place] [address] 76712- 5051 Jan, Diabetes type 2, uncontrolled E11.65 [facility] [id number] [place] [address] 01335- 2418 Jan, [facility] [id number] [place] [address] 81866- 6931 Jan, Controlled type 2 diabetes mellitus without complication, without long-term current use of insulin E11.9 ; Chest wall pain R07.89 and Thoracic spine pain M54.6 [facility] [id number] [place] [address] 68877- 7188 Dec, [facility] [id number] [place] [address] 98120- 0897 Dec, [facility] [id number] [place] [address] 66915- 3881 Nov, [facility] [id number] [place] [address] 50327- 6214 Nov, [facility] [id number] [place] [address] 07008 -2379 Nov, Trichomonas exposure Z20.2 [facility] [id number] [place] [address] 49674- 0091 Oct, [facility] [id number] [place] [address] 98861- 4675 Oct, [facility] [id number] [place] [address] 08135- 3924 Oct, [facility] [id number] [place] [address] 39748- 3525 Oct, [facility] [address] [id number] [place] [address]- 6496 Sep, [facility] [address] [id number] [place] [address]- 0590 Sep, [facility] [address] [facility] [id number] [place] [address]- 8092 Aug, [facility] [address] [id number] [place] [address]- 6819 Aug, [facility] [address] [id number] [place] [address]- 1556 Aug, [facility] [address] [id number] [place] [address]- 6126 Aug, [facility] [address] [facility] [id number] [place] [address]- 5391 July, Diabetes type 2, controlled E11.9 [facility] [address] [id number] [place] [address]- 2243 July, [facility] [address] [facility] [id number] [place] [address]- 6656 July, [facility] [address] [facility] [id number] [place] [address]- 0219 July, [facility] [address] [facility] [id number] [place] [address]- 9176 July, [facility] [address] [id number] [place] [address]- 5540 Jun, [facility] [address] [id number] [place] [address]- 0411 Jun, [facility] [address] [facility] [id number] [place] [address]- 1767 16 May, 2016 [facility] [address] [facility] [id number] [place] [address]- 5142 15 May, 2016 [facility] [address], [place] [address]- 3491 May, [facility] [id number], [place] [address]- 8284 May, Controlled type 2 diabetes mellitus without complication, without long-term current use of insulin E11.9 [facility] [id number] [place] [address]- 5015 Apr, [facility] [id number], [place] [address]- 1129 Apr, [facility] [id number] [place] [address] 91410- 3876 Mar, [facility] [id number] [address]- 4833 Mar, [facility] [id number] [place] [address] 84219- 1235 Feb, [facility] [address], [place] [address]- 0304 Feb, [facility] [address], [place] [address]- 7302 Jan, [facility] [id number], [place] [address]- 7769 Jan, [facility] [id number], [place] [address]- 1810 Jan, [facility] [id number], [place] [address]- 7817 Dec, [facility] [id number], [place] [address]- 4184 Dec, [facility] [id number] 1625 Dec, [facility] [id number] 3333 29 Sep, 2016 Diabetes type 2, uncontrolled E11.65 [facility] [address], [place] [address]- 4193 14 Nov, 2015 [facility] [address], [place] [address]- 1884 09 Nov, 2015 [facility] [address], [place] [address]- 4539 16 Oct, 2015 [facility] [id number] [place] [address] 85762- 9471 Oct, [facility] [address], [place] [address]- 2998 Sep, Controlled type 2 diabetes mellitus without complication, without long-term current use of insulin E11.9 [facility] [id number], [place] [address]- 3238 Sep, [facility] [id number] [place] [address] 38933- 5680 Sep, [facility] [id number], [place] [address]- 3970 Sep, [facility] [id number] [place] [address] 33949- 7293 Sep, [facility] [address], [place] [address]- 0799 Aug, Diabetes type 2, controlled E11.9 ; Anxiety F41.9 ; Carpal tunnel syndrome, left upper limb G56.02 and Carpal tunnel syndrome, right upper limb G56.01 [facility] [id number], [place] [address]- 9036 Aug, Urethritis N34.2 [facility] [id number], [place] [address]- 6046 Aug, [facility] [id number], [place] [address]- 8159 July, Genital warts A63.0 [facility] [id number], [place] [address]- 3245 July, [facility] [id number] [place] [address] 27185- 4696 July, Genital warts A63.0 [facility] [id number], [place] [address]- 6226 July, Anxiety F41.9 [facility] [id number] [place] [address] 03985- 0546 Jun, Genital warts A63.0 [facility] [id number] [place] [address] 97302- 1426 Jun, Anxiety F41.9 [facility] [id number] [place] [address] 36854- 3516 May, Genital warts A63.0 and Diabetes type 2, uncontrolled E11.65 [facility] [id number] [place] [address] 34958- 4334 May, [facility] [address], [place] [address]- 8923 May, [facility] [id number] [place] [address] 46727- 2899 Apr, [facility] [address], [place] [address]- 7086 Apr, [facility] [id number], [place] [address]- 1675 Apr, Diabetes type 2, controlled E11.9 [facility] [id number], [place] [address]- 8136 Apr, Genital warts A63.0 [facility] [id number], [place] [address]- 2546 Apr, [facility] [id number], [place] [address]- 2958 Apr, Diabetes type 2, uncontrolled E11.65 and Genital warts A63.0 [facility] [id number] [place] [address] 06869- 2192 Apr, [facility] [id number] [place] [address] 77779- 8162 Mar, [facility] [id number] [place] [address] 22156- 6599 Mar, [facility] [id number] [place] [address] 02070- 0881 Mar, Family history of diabetes mellitus V18.0 and Weight loss R63.4 [facility] [id number] [place] [address] 88160- 0551 Mar, Genital warts A63.0 and Family history of diabetes mellitus V18.0 [facility] [id number] [place] [address] 19082- 5619 Feb, [facility] [id number] [place] [address] 48360- 2629 Jan, [facility] [id number] [place] [address] 32031- 8627 Jan, Perianal venereal warts A63.0 [facility] [id number] [place] [address] 46511- 3055 Jan, Urethritis N34.2 and Anxiety F41.9 [facility] [id number] [place] [address] 19680- 8102 Jan, [facility] [id number] [place] [address] 28388- 7372 Jan, Urinary tract infection, site unspecified N39.0 [facility] [id number] [place] [address] 76435- 5779 Jan, [facility] [id number] [place] [address] 95085- 2701 Dec, [place] [id number] [place] [address] 03313- 8582 Dec, HPV (human papilloma virus) anogenital infection A63.0 ; Anxiety F41.9 and Gastroesophageal reflux disease without esophagitis K21.9 [place] [id number] [place] [address] 30101- 5596 Sep, Blood in stool 578.1 [place] [address] 88055- 5900 Aug, Blood in stool 578.1 [place] [address] 38876- 9976 Aug, Anxiety 300.00 and Blood in stool 578.1 [place] [id number] [place] [address] 977502- 2123 July, [place] [address] 77642- 2386 July, Family history of diabetes mellitus V18.0 [place] [id number] [place] [address] 70802- 0602 July, Family history of diabetes mellitus V18.0 ; Family history of thyroid disease V18.19 ; Polyuria 788.42 ; Polydipsia 783.5 ; Alopecia 704.00 and Fatigue 780.79 [place] [id number] [place] [address] 39506- 9793 Jun, [place] [id number] [place] [address] [id number]- 3654 Jun, [place] [id number] [place] [address] 76412- 3780 Mar, [place] [id number] [place] [address] 956396- 6165 Mar, [place] [id number] [place] [address] 361522- 8425 Mar, [facility] [place] [facility] [address] [id number] [place] [address]- 2637 Mar, [facility] [place] [facility] [address] [id number] [place] [address]- 5875 Mar, [facility] [place] [facility] [address] [id number] [place] [address]- 5727 Mar, [facility] [place] [facility] [address] [id number] [place] [address]- 4095 Mar, [facility] [place] [facility] [address] [id number] [place] [address]- 7768 Mar, [facility] [place] [facility] [address] [id number] [place] [address]- 5515 Mar, [facility] [place] [facility] [address] [id number] [place] [address]- 8921 Mar, [facility] [place] [facility] [address] [id number] [place] [address]- 4463 Feb, [facility] [place] [facility] [address] [id number] [place] [address]- 8149 Feb, [facility] [place] [facility] [address] [id number] [place] [address]- 2934 Jan, [facility] [place] [facility] [address] [id number] [place] [address]- 9908 Jan, [facility] [place] [facility] [address] [id number] [place] [address]- 0518 Jan, [facility] [place] [facility] [address] [id number] [place] [address]- 6736 Jan, [facility] [place] [facility] [address] [id number] [place] [address]- 1830 Dec, [facility] [place] [facility] [address] [id number] [place] [address]- 1648 Dec, [facility] [place] [facility] [address] [id number] [place] [address]- 2245 Nov, [facility] [place] [facility] [address] [id number] [place] [address]- 4840 Nov, [facility] [place] [facility] [address] [id number] [place] [address]- 7532 Oct, [facility] [place] [facility] [address] [id number] [place] [address]- 4098 Oct, [facility] [place] [facility] [address] [id number] [place] [address]- 1289 Oct, [facility] [place] [facility] [address] [id number] [place] [address]- 8961 Oct, [facility] [place] [facility] [address] [id number] [place] [address]- 9180 Oct, [facility] [place] [facility] [address] [id number] [place] [address]- 7269 Oct, [facility] [place] [facility] [address] [id number] [place] [address]- 2804 Oct, [facility] [place] [facility] [address] [id number] [place] [address]- 0174 Oct, [facility] [place] [facility] [address] [id number] [place] [address]- 8648 Sep, [facility] [place] [facility] [address] [id number] [place] [address]- 5907 Sep, [facility] [place] [facility] [address] [id number] [place] [address]- 3001 Sep, [facility] [place] [facility] [address] [id number] [place] [address]- 8204 Sep, [facility] [place] [facility] [address] [id number] [place] [address]- 5641 Aug, [facility] [place] [facility] [address] [id number] [place] [address]- 9205 Aug, [facility] [place] [facility] [address] [id number] [place] [address]- 7264 Aug, [facility] [address] [id number] [place] [address]- 9037 Aug, [facility] [address] [id number] [place] [address]- 6803 July, [facility] [address] [id number] [place] 8106 July, [facility] [address] [id number] [place] [address]- 0425 July, [facility] [address] [id number] [place] [address]- 7830 July, [facility] [address] [id number] [place] [address]- 6367 July, [facility] [address] [id number] [place] [address]- 4057 July, [facility] [address] [id number] [place] [address]- 4113 Jun, [facility] [address] [id number] [place] [address]- 7053 Jun, [facility] [address] [id number] [place] [address]- 4026 Jun, [facility] [address] [id number] [place] [address]- 9037 15 Jun, 2013 [facility] [address] [id number] [place] [address]- 5993 Jun, [facility] [place] [facility] [address] [id number] [place] [address]- 4924 Jun, [facility] [place] [facility] [address] [id number] [place] [address]- 8784 Jun, [facility] [address] [id number] [place] [address]- 7784 Jun, [facility] [place] [facility] [address] [id number] [place] [address]- 0590 May, [facility] [place] [facility] [address] [id number] [place] [address]- 5884 19 May, 2013 [facility] [place] [facility] [address] [id number] [place] [address]- 9241 May, [facility] [place] [facility] [address] [id number] [place] [address]- 7805 Apr, [facility] [place] [facility] [address] [id number] [place] [address]- 7482 Apr, [facility] [place] [facility] [address] [id number] [place] [address] Apr, [facility] [place] [facility] [address] [id number] [place] [address] Apr, [facility] [place] [facility] [address] [id number] [place] [address] Mar, [facility] [place] [facility] [address] [id number] [place] [address] Mar, [facility] [place] [facility] [address] [id number] [place] [address] Mar, [facility] [place] [facility] [address] [id number] [place] [address] Mar, [facility] [place] [facility] [address] [id number] [place] [address] Mar, [facility] [place] [facility] [address] [id number] [place] [address] Mar, [facility] [place] [facility] [address] [id number] [place] [address] Feb, [facility] [place] [facility] [address] [id number] [place] [address] Feb, [facility] [place] [facility] [address] [id number] [place] [address] Jan, [facility] [place] [facility] [address] [id number] [place] [address] Jan, [facility] [place] [facility] [address] [id number] [place] [address] Jan, [facility] [place] [facility] [address] [id number] [place] [address] Jan, [facility] [place] [facility] [address] [id number] [place] [address] Jan, [facility] [place] [facility] [address] [id number] [place] [address] Jan, [facility] [place] [facility] [address] [id number] [place] [address] Jan, [facility] [place] [facility] [address] [id number] [place] [address] Dec, [facility] [place] [facility] [address] [id number] [place] [address] Dec, [facility] [place] [facility] [address] [id number] [place] [address] Nov, [facility] [place] [facility] [address] [id number] [place] [address] Nov, [facility] [place] [facility] [address] [id number] [place] [address] Nov, [facility] [place] [facility] [address] [id number] [place] [address] Oct, [facility] [place] [facility] [address] [id number] [place] [address] Oct, [facility] [place] [facility] [address] [id number] [place] [address] Oct, [facility] [place] [facility] [address] [id number] [place] [address] Oct, [facility] [place] [facility] [address] [id number], [place] [address] Sep, [facility] [address] [facility] [id number], [place] [address] Sep, [facility] [address] [facility] [id number], [place] [address] Aug, [facility] [address] [facility] [id number], [place] [address] Aug, [facility] [address] [id number] [place] [address] Aug, [facility] [address] [facility] [id number] [place] [address] Aug, [facility] [address] [facility] [id number], [place] [address] July, [facility] [address] [id number], [place] [address] July, [facility] [address] [id number] [address] [address] July, [facility] [address] [id number], [place] [address] July, [facility] [address] [id number], [place] [address] Jun, [facility] [address] [facility] [id number], [place] [address] Jun, [facility] [address] [facility] [id number][place] [address] Feb, [facility] [address] [facility] [id number], [place] [address] Feb, [facility] [address] [facility] [id number] [address] Mar, IMMUNIZATIONS No Known Immunizations SOCIAL HISTORY Never Assessed REASON FOR VISIT medical source statement PLAN OF CARE VITAL SIGNS MEDICATIONS Unknown [...]
--- OUTSIDE RECORDS SUMMARY | 2017-10-18 09:23 | XMS REPORT ---
Author MIRELLA Aranda Organization [employer] Address Unknown Phone Unavailable Care Team Providers Care Wind Instrument Repairer Name Role Phone MIRELLA MARIA CP Unavailable Allergies No Known Allergies Problems Problem Type Condition Code Onset Dates Condition Status Problem Shoulder pain, right M25.511 Active Problem Mood disorder F39 Active Problem Diabetes type 2, uncontrolled E11.65 Active Problem Hypertension, benign I10 Active Assessment Genital warts A63.0 Active Problem Low back pain M54.5 Active Problem Acquired hypothyroidism E03.9 Active Medications Medication Code System Code Instructions Start Date End Date Status Dosage Ativan [facility] [address]-94 0.5 MG Orally Twice a day Jan 10, 2015 1 tablet as needed Results No Known Results Summary Purpose [employer] Submission
--- OUTSIDE RECORDS SUMMARY | 2017-10-18 09:23 | XMS REPORT ---
Author MIRELLA Aranda Organization [employer] Address Unknown Phone Unavailable Care Team Providers Care Pullman Car Clerk Name Role Phone MIRELLA MARIA CP Unavailable Allergies, Adverse Reactions, Alerts Substance Reaction Event Type N.K.D.A. Info Not Available Non Drug Allergy Problems Problem Type Condition Code Onset Dates Condition Status Problem Mood disorder F39 Active Problem Low back pain M54.5 Active Problem Shoulder pain, right M25.511 Active Assessment Perianal venereal warts A63.0 Active Problem Acquired hypothyroidism E03.9 Active Problem Hypertension, benign I10 Active Medications Medication Code System Code Instructions Start Date End Date Status Dosage Pyridium [facility] [address]-97 100 MG Orally Three times a day Feb 10, 2015 Feb 13, 2015 1 tablet after meals Pantoprazole Sodium [facility] [address]-59 40 MG Orally Once a day Jan 10, 2015 1 tablet Ativan [facility] [address]-56 0.5 MG Orally Twice a day Jan 10, 2015 1 tablet as needed Procedures Procedure Coding System Code Date CRYOTHERAPY OF SKIN CPT-4 92245 Feb 11, 2015 Vital Signs Date/Time: Feb 11, 2015 Temperature 98.2 F Weight 212.2 lbs Height 68 in BMI 32.26 Index Blood Pressure Diastolic 76 mmHg Blood Pressure Systolic 116 mmHg Cardiac Monitoring Heart Rate 96 bpm Results No Known Results Summary Purpose [employer] Submission
--- OUTSIDE RECORDS SUMMARY | 2017-10-18 09:23 | XMS REPORT ---
Author Author MIRELLA MARIA Organization [employer] Address Unknown Phone Unavailable Care Team Providers Care Superintendent [employer] Name Role Phone MIRELLA MARIA CP Unavailable [...] Date End Date Status Dosage Tramadol HCl [facility] [address]-06 50 mg Orally every 6 hrs June 03, 2015 1 tablet as needed Results No Known Results Summary Purpose [employer] Submission
--- OUTSIDE RECORDS SUMMARY | 2017-10-18 09:24 | XMS REPORT ---
Author Author MIRELLA MARIA Organization [facility] Address [address] [place] [address] Care Team Providers Care Associate Professor Of Medicine Name Role Phone MIRELLA MARIA Unavailable PROBLEMS Type Condition ICD9-CM Code [id number] Code Onset Dates Condition Status SNOMED Code Problem Mood disorder F39 Active 09454720 Problem Shoulder pain, right M25.511 Active 83564762 Problem Acquired hypothyroidism E03.9 Active 904113690 Problem Low back pain M54.5 Active 886115670 Problem Cervical radiculopathy M54.12 Active 29918957 Problem History of urethral stricture Z87.448 Active 164854897 Problem Diabetes type 2, uncontrolled E11.65 Active 607654946 Problem Hypertension, benign I10 Active 28618610 Problem Controlled type 2 diabetes mellitus without complication, without long -term current use of insulin E11.9 Active 821379531 Problem Diabetes type 2, controlled E11.9 Active 06833873 ALLERGIES No Information ENCOUNTERS Encounter Location Date Diagnosis [place] [id number] [place] [address] 66070- 0010 Jun, Controlled type 2 diabetes mellitus without complication, without long-term current use of insulin E11.9 [place] [id number] [place] [address] 85885- 4965 19 May, 2017 [place] [id number] [place] [address] 43040- 5200 16 May, 2017 Radiculopathy of cervical region M54.12 [place] [id number] [place] [address] 91766- 7383 14 May, 2017 Controlled type 2 diabetes mellitus without complication, without long-term current use of insulin E11.9 [place] [id number] [place] [address] 20447- 2586 12 May, 2017 [place] [address] [address] 1667 May, Controlled type 2 diabetes mellitus without complication, without long-term current use of insulin E11.9 [place] [address] [address]- 9340 May, Controlled type 2 diabetes mellitus without complication, without long-term current use of insulin E11.9 [place] [address] [address] 8972 May, Controlled type 2 diabetes mellitus without complication, without long-term current use of insulin E11.9 [place] [address] [address]- 4596 Apr, [place] [address] [address]- 2779 Apr, Controlled type 2 diabetes mellitus without complication, without long-term current use of insulin E11.9 [place] [address] [address]- 0739 Apr, [place] [address] [address]- 0721 Apr, Controlled type 2 diabetes mellitus without complication, without long-term current use of insulin E11.9 [place] [address] [address]- 6512 Mar, [place] [address] [address]- 4302 Mar, Radiculopathy of cervical region M54.12 [place] [address] [address]- 6854 Mar, Controlled type 2 diabetes mellitus without complication, without long-term current use of insulin E11.9 [place] [id number] [address]- 1052 Feb, Cervical radiculopathy M54.12 ; Acute cystitis without hematuria N30.00 and History of urethral stricture Z87.448 [facility] [address] [address]- 8444 Feb, Controlled type 2 diabetes mellitus without complication, without long-term current use of insulin E11.9 [facility] [id number] [place] [address] 30294- 7718 Feb, [facility] [id number] [place] [address] 91217- 4394 Jan, Diabetes type 2, uncontrolled E11.65 [facility] [id number] [place] [address] 08126- 5617 Jan, [facility] [id number] [place] [address] 25450- 5622 Jan, Controlled type 2 diabetes mellitus without complication, without long-term current use of insulin E11.9 ; Chest wall pain R07.89 and Thoracic spine pain M54.6 [place] [id number] [place] [address] 00217- 9110 Dec, [facility] [id number] [place] [address] 81392- 3617 Dec, [facility] [id number] [place] [address] 18218- 2599 Nov, [facility] [id number] [place] [address] 61556- 2077 Nov, [facility] [id number] [place] [address] 50456 -0391 Nov, Trichomonas exposure Z20.2 [facility] [id number] [place] [address] 64029- 6093 Oct, [facility] [id number] [place] [address] 19511- 6932 Oct, [facility] [id number] [place] [address] 37327- 7479 Oct, [facility] [id number] [place] [address]- 3854 Oct, [facility] [address] [id number] [place] [address]- 4684 Sep, [facility] [place] [facility] [address] [id number] [place] [address]- 4756 Sep, [facility] [address] [id number] [place] [address]- 0650 Aug, [facility] [place] [facility] [address] [id number] [place] [address]- 1923 Aug, [facility] [address] [id number] [place] [address]- 7877 Aug, [facility] [address] [id number] [place] [address]- 1482 Aug, [facility] [address] [id number] [place] [address]- 2954 July, Diabetes type 2, controlled E11.9 [facility] [address] [id number] [place] [address]- 5066 July, [facility] [address] [facility] [id number] [place] [address]- 2597 July, [facility] [address] [id number] [place] [address]- 5895 July, [facility] [address] [id number] [place] [address]- 5250 July, [facility] [place] [facility] [address] [id number] [place] [address]- 3032 Jun, [facility] [place] [facility] [address] [id number] [place] [address]- 7402 Jun, [facility] [place] [facility] [address] [id number] [place] [address]- 8410 May, [facility] [place] [facility] [address] [id number] [address]- 2566 May, [facility] [address] [facility] [id number] [place] [address]- 9758 May, [facility] [id number] [place] [address] 47771- 5626 May, Controlled type 2 diabetes mellitus without complication, without long-term current use of insulin E11.9 [facility] [address] [facility] [id number] [place] [address], [place] [address]- 3690 Apr, [facility] [address] [facility] [id number] [place] [address], [place] [address]- 2546 Apr, [facility] [id number] [place] [address], [place] [address]- 1396 Mar, [facility] [id number] [place] [address] 12382- 8181 Mar, [facility] [id number] [place] [address] 92702- 0690 Feb, [facility] [address], [place] [address]- 8445 Feb, [facility] [id number] [place] [address] 796335- 1514 Jan, [facility] [address], [place] [address]- 9618 Jan, [facility] [id number] [address]- 0616 Jan, [facility] [address] [facility] [id number] [address]- 1180 Dec, [facility] [address] [facility] [id number] [place] [address], [place] [address]- 1706 Dec, [facility] [id number] [address]- 4607 Dec, [facility] [id number] [place] [address] 16684- 1040 29 Nov, 2015 Diabetes type 2, uncontrolled E11.65 [facility] [address], [place] [address]- 3805 14 Nov, 2015 [facility] [id number] [place] [address] 55385- 9573 09 Nov, 2015 [facility] [id number] [place] [address] 60819- 2975 Oct, [facility] [id number] [place] [address] 07521- 7621 Oct, [facility] [id number] [place] [address] 97280- 0383 Sep, Controlled type 2 diabetes mellitus without complication, without long-term current use of insulin E11.9 [facility] [id number] [place] [address] 33608- 6599 Sep, [facility] [id number] [place] [address] 38384- 7618 Sep, [facility] [id number] [place] [address] 33858- 0182 Sep, [facility] [id number] [place] [address] 62167- 6680 Sep, [facility] [id number] [place] [address] 00807- 0054 Aug, Diabetes type 2, controlled E11.9 ; Anxiety F41.9 ; Carpal tunnel syndrome, left upper limb G56.02 and Carpal tunnel syndrome, right upper limb G56.01 [facility] [address], [place] [address]- 0779 Aug, Urethritis N34.2 [facility] [id number] [place] [address] 27992- 3623 Aug, [facility] [id number] [place] [address] 45934- 2056 July, Genital warts A63.0 [facility] [address] [facility] [id number] [address]- 0096 July, [facility] [address] [facility] [id number] [address] 2546 July, Genital warts A63.0 [facility] [address], [place] [address]- 6056 July, Anxiety F41.9 [facility] [id number] [place] [address] 74269 2546 Jun, Genital warts A63.0 [facility] [id number] [place] [address] 48190- 6306 Jun, Anxiety F41.9 [facility] [id number] [place] [address] 56473- 6229 May, Genital warts A63.0 and Diabetes type 2, uncontrolled E11.65 [facility] [address] [address]- 4216 May, [facility] [id number] [place] [address] 80152- 9610 May, [facility] [address], [place] [address]- 6043 Apr, [facility] [address], [place] [address] 2546 Apr, [facility] [address] [address]- 2543 Apr, Diabetes type 2, controlled E11.9 [facility] [address], [place] [address] 2546 Apr, Genital warts A63.0 [facility] [address], [place] [address]- 2546 Apr, [facility] [id number] [place] [address] 90733- 7070 Apr, Diabetes type 2, uncontrolled E11.65 and Genital warts A63.0 [facility] [id number] [place] [address] 96831- 9221 Apr, [facility] [id number] [place] [address] 33014- 5785 Mar, [facility] [id number] [place] [address] 64062- 9006 Mar, [facility] [id number] [place] [address] 62429- 8673 Mar, Family history of diabetes mellitus V18.0 and Weight loss R63.4 [facility] [id number] [place] [address] 52426- 5861 Mar, Genital warts A63.0 and Family history of diabetes mellitus V18.0 [facility] [id number] [place] [address] 41263- 3295 Feb, [facility] [id number] [place] [address] 16935- 9387 Jan, [facility] [id number] [place] [address] 66265- 0764 Jan, Perianal venereal warts A63.0 [facility] [id number] [place] [address] 43018- 1450 Jan, Urethritis N34.2 and Anxiety F41.9 [facility] [id number] [place] [address] 34006- 8464 Jan, [facility] [id number] [place] [address] 40605- 1451 Jan, Urinary tract infection, site unspecified N39.0 [facility] [id number] [place] [address] 24603- 3275 Jan, [facility] [id number] [place] [address] 69602- 7170 Dec, [place] [id number] [place] [address] 16289- 2317 Dec, HPV (human papilloma virus) anogenital infection A63.0 ; Anxiety F41.9 and Gastroesophageal reflux disease without esophagitis K21.9 [place] [id number] [place] [address] 788819- 1943 Sep, Blood in stool 578.1 [place] [address] 29361- 9653 Aug, Blood in stool 578.[address] 474768- 2765 Aug, Anxiety 300.00 and Blood in stool 578.[address] 68691- 7174 July, [address] 82432- 0205 July, Family history of diabetes mellitus V18.[address] 44496- 1288 July, Family history of diabetes mellitus V18.0 ; Family history of thyroid disease V18.19 ; Polyuria 788.42 ; Polydipsia 783.5 ; Alopecia 704.00 and Fatigue 780.79 [place] [id number] [place] [address] 89259- 8565 Jun, [place] [id number] [place] [address] 23205- 5863 Jun, [address] 88330279- 4911 Mar, [place] [id number] [place] [address] 83403- 6276 Mar, [address] 88127- 7130 Mar, [facility] [place] [facility] [address] [id number] [place] [address]- 6814 Mar, [facility] [place] [facility] [address] [id number] [place] [address]- 2546 Mar, [facility] [place] [facility] [address] [id number] [place] [address]- 3441 Mar, [facility] [place] [facility] [address] [id number] [place] [address]- 1780 Mar, [facility] [place] [facility] [address] [id number] [place] [address]- 7064 Mar, [facility] [place] [facility] [address] [id number] [place] [address]- 6993 Mar, [facility] [place] [facility] [address] [id number] [place] [address]- 9482 Mar, [facility] [place] [facility] [address] [id number] [place] [address]- 5531 Feb, [facility] [place] [facility] [address] [id number] [address]- 1080 Feb, [facility] [place] [facility] [address] [id number] [place] [address]- 1068 Jan, [facility] [place] [facility] [address] [id number], [place] [address]- 0964 Jan, [facility] [place] [facility] [address] [id number], [place] [address]- 4170 Jan, [facility] [place] [facility] [address] [id number], [place] [address]- 0719 Jan, [facility] [place] [facility] [address] [id number], [place] [address]- 0942 Dec, [facility] [place] [facility] [address] [id number] [place] [address]- 4767 Dec, [facility] [place] [facility] [address] [id number] [place] [address]- 9009 Nov, [facility] [place] [facility] [address] [id number] [place] [address]- 2261 Nov, [facility] [place] [facility] [address] [id number] [place] [address]- 3393 Oct, [facility] [place] [facility] [address] [id number] [place] [address]- 6221 Oct, [facility] [place] [facility] [address] [id number] [place] [address]- 5783 Oct, [facility] [place] [facility] [address] [id number] [place] [address]- 7198 Oct, [facility] [place] [facility] [address] [id number] [place] [address]- 7016 Oct, [facility] [place] [facility] [address] [id number] [place] [address]- 3997 Oct, [facility] [place] [facility] [address] [id number] [place] [address]- 5695 Oct, [facility] [place] [facility] [address] [id number] [place] [address]- 2270 Oct, [facility] [place] [facility] [address] [id number] [place] [address]- 1140 Sep, [facility] [place] [facility] [address] [id number] [place] [address]- 0282 Sep, [facility] [place] [facility] [address] [id number] [place] [address]- 9385 Sep, [facility] [place] [facility] [address] [id number] [place] [address]- 2181 Sep, [facility] [place] [facility] [address] [id number] [place] [address]- 8717 Aug, [facility] [place] [facility] [address] [id number] [place] [address]- 9579 Aug, [facility] [place] [facility] [address] [id number] [place] [address]- 5596 Aug, [facility] [place] [facility] [address] [id number] [place] [address]- 7178 Aug, [facility] [place] [facility] [address] [id number] [place] [address]- 7211 July, [facility] [place] [facility] [address] [id number] [place] [address]- 0640 July, [facility] [place] [facility] [address] [id number] [place] [address]- 0067 July, [facility] [place] [facility] [address] [id number] [place] [address]- 3565 July, [facility] [place] [facility] [address] [id number] [place] [address]- 7497 July, [facility] [place] [facility] [address] [id number] [place] [address]- 4047 July, [facility] [place] [facility] [address] [id number] [place] [address]- 9123 Jun, [facility] [place] [facility] [address] [id number] [place] [address]- 8885 Jun, [facility] [place] [facility] [address] [id number] [place] [address]- 9449 Jun, [facility] [place] [facility] [address] [id number] [place] [address]- 3356 15 Jun, 2013 [facility] [place] [facility] [address] [id number] [place] [address]- 3410 Jun, [facility] [place] [facility] [address] [id number] [place] [address]- 2133 Jun, [facility] [place] [facility] [address] [id number] [place] [address]- 1861 Jun, [facility] [place] [facility] [address] [id number] [place] [address]- 4319 14 Jun, 2013 [facility] [place] [facility] [address] [id number] [place] [address]- 3643 May, [facility] [place] [facility] [address] [id number] [place] [address]- 5337 May, [facility] [place] [facility] [address] [id number] [place] [address]- 9078 May, [facility] [place] [facility] [address] [id number] [place] [address]- 8677 Apr, [facility] [place] [facility] [address] [id number] [place] [address]- 0611 Apr, [facility] [place] [facility] [address] [id number] [place] [address]- 3622 Apr, [facility] [place] [facility] [address] [id number] [place] [address]- 9966 Apr, [facility] [place] [facility] [address] [id number] [place] [address]- 0438 Mar, [facility] [place] [facility] [address] [id number] [place] [address]- 5515 Mar, [facility] [place] [facility] [address] [id number] [place] [address]- 7510 Mar, [facility] [place] [facility] [address] [id number] [place] [address] Mar, [facility] [place] [facility] [address] [id number] [place] [address] Mar, [facility] [place] [facility] [address] [id number] [place] [address] Mar, [facility] [place] [facility] [address] [id number] [place] [address] Feb, [facility] [place] [facility] [address] [id number] [place] [address] Feb, [facility] [place] [facility] [address] [id number] [place] [address] Jan, [facility] [place] [facility] [address] [id number] [place] [address] Jan, [facility] [place] [facility] [address] [id number] [place] [address] Jan, [facility] [place] [facility] [address] [id number] [place] [address] Jan, [facility] [place] [facility] [address] [id number] [place] [address] Jan, [facility] [place] [facility] [address] [id number] [place] [address] Jan, [facility] [place] [facility] [address] [id number] [place] [address] Jan, [facility] [place] [facility] [address] [id number] [place] [address] Dec, [facility] [place] [facility] [address] [id number] [place] [address] Dec, [facility] [place] [facility] [address] [id number] [place] [address] Nov, [facility] [place] [facility] [address] [id number] [place] [address] Nov, [facility] [place] [facility] [address] [id number] [place] [address] Nov, [facility] [place] [facility] [address] [id number] [place] [address] Oct, [facility] [place] [facility] [address] [id number] [place] [address] Oct, [facility] [place] [facility] [address] [id number] [place] [address] Oct, [facility] [place] [facility] [address] [id number] [address] Oct, [facility] [address] [id number] [place] [address] Sep, [facility] [address] [id number] [address] Sep, [facility] [address] [facility] [id number] [place] [address] Aug, [facility] [address] [id number] [address] Aug, [facility] [address] [id number] [place] [address] Aug, [facility] [address] [facility] [id number] [place] [address] Aug, [facility] [address] [facility] [id number][place] [address] July, [facility] [address] [facility] [id number] [place] [address] July, [facility] [address] [facility] [id number] [address] July, [facility] [address] [facility] [id number] [address] July, [facility] [address] [facility] [id number] [address] Jun, [facility] [address] [facility] [id number] [address] Jun, [facility] [address] [facility] [id number][place] [address] Feb, [facility] [address] [facility] [id number][place] [address] Feb, [facility] [address] [facility] [id number] [address] Mar, IMMUNIZATIONS No Known Immunizations SOCIAL HISTORY Never Assessed REASON FOR VISIT Controlled Med Refill 02/28/17 PLAN OF CARE VITAL SIGNS MEDICATIONS Medication [...]
--- OUTSIDE RECORDS SUMMARY | 2017-10-18 09:25 | XMS REPORT ---
Author Author MIRELLA MARIA Organization [facility] Address [address] [place] [address] Care Team Providers Care Grain Combiner Name Role Phone MIRELLA MARIA Unavailable PROBLEMS Type Condition ICD9-CM Code IGF06-PC Code Onset Dates Condition Status SNOMED Code Problem Mood disorder F39 Active 16429813 Problem Low back pain M54.5 Active 101834357 Problem Controlled type 2 diabetes mellitus without complication, without long -term current use of insulin E11.9 Active 516898607 Problem Diabetes type 2, controlled E11.9 Active 82443154 Problem Shoulder pain, right M25.511 Active 66388419 Problem Acquired hypothyroidism E03.9 Active 226109986 Problem Diabetes type 2, uncontrolled E11.65 Active 300011349 Problem Hypertension, benign I10 Active 24038474 ALLERGIES No Information SOCIAL HISTORY Never Assessed [...]
--- OUTSIDE RECORDS SUMMARY | 2017-10-18 09:26 | XMS REPORT ---
Author Author MIRELLA MARIA Organization [facility] Address [address] [place] [address] Care Team Providers Care Hand Shaper Name Role Phone MIRELLA MARIA Unavailable PROBLEMS Type Condition ICD9-CM Code CPB26-US Code Onset Dates Condition Status SNOMED Code Problem Mood disorder F39 Active 05904782 Problem Shoulder pain, right M25.511 Active 39311845 Problem Acquired hypothyroidism E03.9 Active 157360338 Problem Low back pain M54.5 Active 216403057 Problem Cervical radiculopathy M54.12 Active 39353793 Problem History of urethral stricture Z87.448 Active 625705073 Problem Diabetes type 2, uncontrolled E11.65 Active 528121093 Problem Hypertension, benign I10 Active 31657463 Problem Controlled type 2 diabetes mellitus without complication, without long -term current use of insulin E11.9 Active 744311336 Problem Diabetes type 2, controlled E11.9 Active 16034699 ALLERGIES No Information ENCOUNTERS Encounter Location Date Diagnosis [facility] [id number] [place] [address] 58098- 4136 Jun, Controlled type 2 diabetes mellitus without complication, without long-term current use of insulin E11.9 [facility] [id number] [place] [address] 76142- 6910 19 May, 2017 [facility] [facility] [id number] [place] [address] 56423- 3970 16 May, 2017 Radiculopathy of cervical region M54.12 [facility] [facility] [id number] [place] [address] 60894- 4558 14 May, 2017 Controlled type 2 diabetes mellitus without complication, without long-term current use of insulin E11.9 [facility] [id number] [place] [address] 45790- 5811 12 May, 2017 [facility] [facility] [address] [address] 5414 May, Controlled type 2 diabetes mellitus without complication, without long-term current use of insulin E11.9 [facility] [address] [address]- 1629 May, Controlled type 2 diabetes mellitus without complication, without long-term current use of insulin E11.9 [facility] [address] [address]- 0914 May, Controlled type 2 diabetes mellitus without complication, without long-term current use of insulin E11.9 [facility] [address], [place] [address]- 6143 Apr, [facility] [address] [address]- 5512 Apr, Controlled type 2 diabetes mellitus without complication, without long-term current use of insulin E11.9 [facility] [facility] [address], [place] [address]- 0703 Apr, [facility] [address] [address]- 3367 Apr, Controlled type 2 diabetes mellitus without complication, without long-term current use of insulin E11.9 [facility] [address] [address]- 9709 Mar, [facility] [address] [address]- 6171 Mar, Radiculopathy of cervical region M54.12 [facility] [facility] [address], [place] [address]- 6701 Mar, Controlled type 2 diabetes mellitus without complication, without long-term current use of insulin E11.9 [facility] [facility] [id number] [address]- 6374 Feb, Cervical radiculopathy M54.12 ; Acute cystitis without hematuria N30.00 and History of urethral stricture Z87.448 [facility] [address] [address]- 8763 Feb, Controlled type 2 diabetes mellitus without complication, without long-term current use of insulin E11.9 [facility] [id number] [place] [address] 44973- 5356 Feb, [facility] [id number] [place] [address] 80361- 9490 Jan, Diabetes type 2, uncontrolled E11.65 [facility] [id number] [place] [address] 01235- 0258 Jan, [facility] [id number] [place] [address] 07816- 0882 Jan, Controlled type 2 diabetes mellitus without complication, without long-term current use of insulin E11.9 ; Chest wall pain R07.89 and Thoracic spine pain M54.6 [facility] [facility] [id number] [place] [address] 90716- 2244 Dec, [facility] [id number] [place] [address] 98505- 8231 Dec, [facility] [id number] [place] [address] 90787- 5360 Nov, [facility] [id number] [place] [address] 95627- 7930 Nov, [facility] [id number] [place] [address] 96943 -9491 Nov, Trichomonas exposure Z20.2 [facility] [id number] [place] [address] 18296- 4600 Oct, [facility] [id number] [place] [address] 62252- 9885 Oct, [facility] [id number] [place] [address] 46828- 8272 Oct, [facility] [id number] [place] [address]- 0119 Oct, [facility] [address] [id number] [place] [address]- 8699 Sep, [facility] [place] [facility] [address] [id number] [place] [address]- 0904 Sep, [facility] [address] [id number] [place] [address]- 8284 Aug, [facility] [place] [facility] [address] [id number] [place] [address]- 4360 Aug, [facility] [address] [id number] [place] [address]- 2680 Aug, [facility] [address] [id number] [place] [address]- 7793 Aug, [facility] [address] [id number] [place] [address]- 9658 July, Diabetes type 2, controlled E11.9 [facility] [address] [id number] [place] [address]- 1290 July, [facility] [address] [facility] [id number] [place] [address]- 9527 July, [facility] [address] [id number] [place] [address]- 9238 July, [facility] [address] [id number] [place] [address]- 2769 July, [facility] [place] [facility] [address] [id number] [place] [address]- 8657 Jun, [facility] [place] [facility] [address] [id number] [place] [address]- 7202 Jun, [facility] [place] [facility] [address] [id number] [place] [address]- 7690 May, [facility] [place] [facility] [address] [id number], [place] [address]- 9796 May, [facility] [address] [facility] [id number] [place] [address]- 1296 May, [facility] [id number] [place] [address] 44629- 5696 May, Controlled type 2 diabetes mellitus without complication, without long-term current use of insulin E11.9 [facility] [address] [facility] [id number] [place] [address], [place] [address]- 5911 Apr, [facility] [address] [facility] [id number] [place] [address], [place] [address]- 2546 Apr, [facility] [id number] [place] [address], [place] [address]- 5586 Mar, [facility] [id number] [place] [address] 91828- 8714 Mar, [facility] [id number] [place] [address] 05640- 5877 Feb, [facility] [address], [place] [address]- 7498 Feb, [facility] [id number] [place] [address] 500857- 5163 Jan, [facility] [address], [place] [address]- 5623 Jan, [facility] [id number], [place] [address]- 7906 Jan, [facility] [address] [facility] [id number], [place] [address]- 9244 Dec, [facility] [address] [facility] [id number] [place] [address], [place] [address]- 3466 Dec, [facility] [id number], [place] [address]- 5831 Dec, [facility] [id number] [place] [address] 74071- 4552 29 Nov, 2015 Diabetes type 2, uncontrolled E11.65 [facility] [address], [place] [address]- 0899 14 Nov, 2015 [facility] [id number] [place] [address] 14767- 2242 09 Nov, 2015 [facility] [id number] [place] [address] 64122- 8626 Oct, [facility] [id number] [place] [address] 06375- 7119 Oct, [facility] [id number] [place] [address] 78729- 3023 Sep, Controlled type 2 diabetes mellitus without complication, without long-term current use of insulin E11.9 [facility] [id number] [place] [address] 60501- 2147 Sep, [facility] [id number] [place] [address] 38434- 0393 Sep, [facility] [id number] [place] [address] 05706- 3392 Sep, [facility] [id number] [place] [address] 81616- 9254 Sep, [facility] [id number] [place] [address] 35546- 8986 Aug, Diabetes type 2, controlled E11.9 ; Anxiety F41.9 ; Carpal tunnel syndrome, left upper limb G56.02 and Carpal tunnel syndrome, right upper limb G56.01 [facility] [address], [place] [address]- 7154 Aug, Urethritis N34.2 [facility] [id number] [place] [address] 22861- 4909 Aug, [facility] [id number] [place] [address] 69452- 4237 July, Genital warts A63.0 [facility] [address] [facility] [id number], [place] [address]- 0536 July, [facility] [address] [facility] [id number] [address] 2546 July, Genital warts A63.0 [facility] [address], [place] [address]- 9006 July, Anxiety F41.9 [facility] [id number] [place] [address] 43580 2546 Jun, Genital warts A63.0 [facility] [id number] [place] [address] 48260- 3396 Jun, Anxiety F41.9 [facility] [id number] [place] [address] 94839- 8320 May, Genital warts A63.0 and Diabetes type 2, uncontrolled E11.65 [facility] [address], [place] [address]- 9596 May, [facility] [id number] [place] [address] 32541- 0750 May, [facility] [address], [place] [address]- 3090 Apr, [facility] [address], [place] [address] 2546 Apr, [facility] [address], [place] [address]- 2541 Apr, Diabetes type 2, controlled E11.9 [facility] [address], [place] [address] 2546 Apr, Genital warts A63.0 [facility] [address], [place] [address]- 2546 Apr, [facility] [id number] [place] [address] 63952- 8812 Apr, Diabetes type 2, uncontrolled E11.65 and Genital warts A63.0 [facility] [id number] [place] [address] 12926- 3989 Apr, [facility] [id number] [place] [address] 37912- 3777 Mar, [facility] [id number] [place] [address] 19132- 9777 Mar, [facility] [id number] [place] [address] 39291- 3769 Mar, Family history of diabetes mellitus V18.0 and Weight loss R63.4 [facility] [id number] [place] [address] 24705- 3290 Mar, Genital warts A63.0 and Family history of diabetes mellitus V18.0 [facility] [id number] [place] [address] 50712- 1600 Feb, [facility] [id number] [place] [address] 14055- 8813 Jan, [facility] [id number] [place] [address] 78626- 3564 Jan, Perianal venereal warts A63.0 [facility] [id number] [place] [address] 52465- 1106 Jan, Urethritis N34.2 and Anxiety F41.9 [facility] [id number] [place] [address] 99379- 8204 Jan, [facility] [id number] [place] [address] 45999- 3633 Jan, Urinary tract infection, site unspecified N39.0 [facility] [id number] [place] [address] 56715- 8966 Jan, [facility] [id number] [place] [address] 10368- 2346 Dec, [facility] [id number] [place] [address] 06146- 7496 Dec, HPV (human papilloma virus) anogenital infection A63.0 ; Anxiety F41.9 and Gastroesophageal reflux disease without esophagitis K21.9 [place] [id number] [place] [address] 092521- 8982 Sep, Blood in stool 578.1 [facility] [facility] [address] 06911- 7316 Aug, Blood in stool 578.[address] 705055- 0082 Aug, Anxiety 300.00 and Blood in stool 578.[address] 48969- 9480 July, [address] 56952- 0371 July, Family history of diabetes mellitus V18.[address] 69021- 6674 July, Family history of diabetes mellitus V18.0 ; Family history of thyroid disease V18.19 ; Polyuria 788.42 ; Polydipsia 783.5 ; Alopecia 704.00 and Fatigue 780.79 [place] [id number] [place] [address] 05739- 3812 Jun, [place] [id number] [place] [address] 51437- 6683 Jun, [address] 81709715- 5909 Mar, [place] [id number] [place] [address] 98265- 9074 Mar, [address] 15174- 1998 Mar, [facility] [place] [facility] [address] [id number] [place] [address]- 4831 Mar, [facility] [place] [facility] [address] [id number] [place] [address]- 5361 Mar, [facility] [place] [facility] [address] [id number] [place] [address]- 9119 Mar, [facility] [place] [facility] [address] [id number] [place] [address]- 3566 Mar, [facility] [place] [facility] [address] [id number] [place] [address]- 0030 Mar, [facility] [place] [facility] [address] [id number] [place] [address]- 9947 Mar, [facility] [place] [facility] [address] [id number] [place] [address]- 5907 Mar, [facility] [place] [facility] [address] [id number] [place] [address]- 3917 Feb, [facility] [place] [facility] [address] [id number], [place] [address]- 0375 Feb, [facility] [place] [facility] [address] [id number] [place] [address]- 3308 Jan, [facility] [place] [facility] [address] [id number], [place] [address]- 8768 Jan, [facility] [place] [facility] [address] [id number], [place] [address]- 9945 Jan, [facility] [place] [facility] [address] [id number], [place] [address]- 7066 Jan, [facility] [place] [facility] [address] [id number], [place] [address]- 4167 Dec, [facility] [place] [facility] [address] [id number] [place] [address]- 3279 Dec, [facility] [place] [facility] [address] [id number] [place] [address]- 1929 Nov, [facility] [place] [facility] [address] [id number] [place] [address]- 2907 Nov, [facility] [place] [facility] [address] [id number] [place] [address]- 7655 Oct, [facility] [place] [facility] [address] [id number] [place] [address]- 4936 Oct, [facility] [place] [facility] [address] [id number] [place] [address]- 2718 Oct, [facility] [place] [facility] [address] [id number] [place] [address]- 5520 Oct, [facility] [place] [facility] [address] [id number] [place] [address]- 7835 Oct, [facility] [place] [facility] [address] [id number] [place] [address]- 8472 Oct, [facility] [place] [facility] [address] [id number] [place] [address]- 9952 Oct, [facility] [place] [facility] [address] [id number] [place] [address]- 2345 Oct, [facility] [place] [facility] [address] [id number] [place] [address]- 5342 Sep, [facility] [place] [facility] [address] [id number] [place] [address]- 6230 Sep, [facility] [place] [facility] [address] [id number] [place] [address]- 4372 Sep, [facility] [place] [facility] [address] [id number] [place] [address]- 3435 Sep, [facility] [place] [facility] [address] [id number] [place] [address]- 2436 Aug, [facility] [place] [facility] [address] [id number] [place] [address]- 4735 Aug, [facility] [place] [facility] [address] [id number] [place] [address]- 2344 Aug, [facility] [place] [facility] [address] [id number] [place] [address]- 2862 Aug, [facility] [place] [facility] [address] [id number] [place] [address]- 2106 July, [facility] [place] [facility] [address] [id number] [place] [address]- 6139 July, [facility] [place] [facility] [address] [id number] [place] [address]- 6353 July, [facility] [place] [facility] [address] [id number] [place] [address]- 4177 July, [facility] [place] [facility] [address] [id number] [place] [address]- 9738 July, [facility] [place] [facility] [address] [id number] [place] [address]- 7464 July, [facility] [place] [facility] [address] [id number] [place] [address]- 6342 Jun, [facility] [place] [facility] [address] [id number] [place] [address]- 1005 Jun, [facility] [place] [facility] [address] [id number] [place] [address]- 2518 Jun, [facility] [place] [facility] [address] [id number] [place] [address]- 9174 15 Jun, 2013 [facility] [place] [facility] [address] [id number] [place] [address]- 9960 Jun, [facility] [place] [facility] [address] [id number] [place] [address]- 7564 Jun, [facility] [place] [facility] [address] [id number] [place] [address]- 7796 Jun, [facility] [place] [facility] [address] [id number] [place] [address]- 0613 14 Jun, 2013 [facility] [place] [facility] [address] [id number] [place] [address]- 1861 May, [facility] [place] [facility] [address] [id number] [place] [address]- 0518 May, [facility] [place] [facility] [address] [id number] [place] [address]- 1055 May, [facility] [place] [facility] [address] [id number] [place] [address]- 3765 Apr, [facility] [place] [facility] [address] [id number] [place] [address]- 9053 Apr, [facility] [place] [facility] [address] [id number] [place] [address]- 8338 Apr, [facility] [place] [facility] [address] [id number] [place] [address]- 7740 Apr, [facility] [place] [facility] [address] [id number] [place] [address]- 7852 Mar, [facility] [place] [facility] [address] [id number] [place] [address]- 0360 Mar, [facility] [place] [facility] [address] [id number] [place] [address]- 5520 Mar, [facility] [place] [facility] [address] [id number] [place] [address]- 1845 Mar, [facility] [place] [facility] [address] [id number] [place] [address]- 0118 Mar, [facility] [place] [facility] [address] [id number] [place] [address] Mar, [facility] [place] [facility] [address] [id number] [place] [address] Feb, [facility] [place] [facility] [address] [id number] [place] [address] Feb, [facility] [place] [facility] [address] [id number] [place] [address] Jan, [facility] [place] [facility] [address] [id number] [place] [address] Jan, [facility] [place] [facility] [address] [id number] [place] [address] Jan, [facility] [place] [facility] [address] [id number] [place] [address] Jan, [facility] [place] [facility] [address] [id number] [place] [address] Jan, [facility] [place] [facility] [address] [id number] [place] [address] Jan, [facility] [place] [facility] [address] [id number] [place] [address] Jan, [facility] [place] [facility] [address] [id number] [place] [address] Dec, [facility] [place] [facility] [address] [id number] [place] [address] Dec, [facility] [place] [facility] [address] [id number] [place] [address] Nov, [facility] [place] [facility] [address] [id number] [place] [address] Nov, [facility] [place] [facility] [address] [id number] [place] [address] Nov, [facility] [place] [facility] [address] [id number] [place] [address] Oct, [facility] [place] [facility] [address] [id number] [place] [address] Oct, [facility] [place] [facility] [address] [id number] [place] [address] Oct, [facility] [place] [facility] [address] [id number], [place] [address] Oct, [facility] [address] [id number] [place] [address] Sep, [facility] [address] [id number], [place] [address] Sep, [facility] [address] [facility] [id number] [place] [address] Aug, [facility] [address] [id number], [place] [address] Aug, [facility] [address] [id number] [place] [address] Aug, [facility] [address] [facility] [id number] [place] [address] Aug, [facility] [address] [facility] [id number], [place] [address] July, [facility] [address] [facility] [id number] [place] [address] July, [facility] [address] [facility] [id number], [place] [address] July, [facility] [address] [facility] [id number], [place] [address] July, [facility] [address] [facility] [id number], [place] [address] Jun, [facility] [address] [facility] [id number], [place] [address] Jun, [facility] [address] [facility] [id number], [place] [address] Feb, [facility] [address] [facility] [id number], [place] [address] Feb, [facility] [address] [facility] [id number], [place] [address] Mar, IMMUNIZATIONS No Known Immunizations SOCIAL HISTORY Never Assessed REASON FOR VISIT Possible Trich infection. S/O has hx of trich and patient has never been treated for this. States he is having burning and discharge. Has been treated for gonnorhea and chlamydia multiple times with no relief. [place] [facility]. PLAN OF CARE VITAL SIGNS Height 68 in 2016-12-01 Weight 201.6 lbs 2016-12-01 Temperature 98.1 degrees Fahrenheit 2016-12-01 Heart Rate 88 bpm 2016-12-01 Respiratory Rate 16 2016-12-01 BMI 30.65 kg/m2 2016-12-01 Blood pressure systolic 136 mmHg 2016-12-01 Blood pressure diastolic 72 mmHg 2016-12-01 MEDICATIONS Medication Instructions Dosage Frequency Start Date End Date Duration Status Pantoprazole Sodium 40 mg Orally Once a day 1 tablet 24h 30 Active Actos 15 MG Orally Once a day 1 tablet 24h 30 Active Ativan 1 MG Orally Twice a day 1 tablet as needed 12h 23 Dec, 2014 28 days Active [place] Contour Next Test 1 In Vitro 2 times a day 1 test 12h May, Active Metronidazole 500 mg Orally Twice a day 1 tablet 12h Nov, Nov, 10 day(s) Active Metformin HCl 1000 MG TAKE ONE TABLET BY MOUTH TWICE DAILY WITH MEALS 30 Active Neurontin 300 MG TAKE ONE [...]
--- OUTSIDE RECORDS SUMMARY | 2017-10-18 09:26 | XMS REPORT ---
Author Author MIRELLA MARIA Organization [facility] Address [address] [place] [address] Care Team Providers Care Development Manager Name Role Phone MIRELLA MARIA Unavailable PROBLEMS Type Condition ICD9-CM Code [id number] Code Onset Dates Condition Status SNOMED Code Problem Mood disorder F39 Active 35812543 Problem Shoulder pain, right M25.511 Active 66271667 Problem Acquired hypothyroidism E03.9 Active 995385328 Problem Low back pain M54.5 Active 531888598 Problem Cervical radiculopathy M54.12 Active 10298556 Problem History of urethral stricture Z87.448 Active 838100328 Problem Diabetes type 2, uncontrolled E11.65 Active 015180747 Problem Hypertension, benign I10 Active 61408255 Problem Controlled type 2 diabetes mellitus without complication, without long -term current use of insulin E11.9 Active 548769510 Problem Diabetes type 2, controlled E11.9 Active 65013213 ALLERGIES No Information ENCOUNTERS Encounter Location Date Diagnosis [place] [id number] [place] [address] 05789- 0988 Jun, [place] [address] [place] [id number] [place] [address] 39234- 3950 16 May, 2017 Radiculopathy of cervical region M54.12 [place] [id number] [place] [address] 11731- 7285 14 May, 2017 Controlled type 2 diabetes mellitus without complication, without long-term current use of insulin E11.9 [place] [address] [place] [id number] [place] [address] 72292- 8820 May, [place] [address] [place] [id number] [place] [address] 11630- 6262 12 May, 2017 Controlled type 2 diabetes mellitus without complication, without long-term current use of insulin E11.9 [place] [address] [address] 5[address] May, Controlled type 2 diabetes mellitus without complication, without long-term current use of insulin E11.9 [place] [address] [address] 9668 May, Controlled type 2 diabetes mellitus without complication, without long-term current use of insulin E11.9 [place] [address] [address] 9434 Apr, [place] [address] [address] 3202 Apr, Controlled type 2 diabetes mellitus without complication, without long-term current use of insulin E11.9 [place] [address] [address] 4682 Apr, [place] [address] [address] 4933 Apr, Controlled type 2 diabetes mellitus without complication, without long-term current use of insulin E11.9 [place] [address] [address]- 0550 Mar, [place] [address] [address] 5210 Mar, Radiculopathy of cervical region M54.12 [place] [address] [address] 8255 Mar, Controlled type 2 diabetes mellitus without complication, without long-term current use of insulin E11.9 [place] [address] [place] [id number] [address] 9398 Feb, Cervical radiculopathy M54.12 ; Acute cystitis without hematuria N30.00 and History of urethral stricture Z87.448 [place] [address] [address] Feb, Controlled type 2 diabetes mellitus without complication, without long-term current use of insulin E11.9 [facility] [id number] [place] [address] 26235- 7821 Feb, [facility] [address] [place] [id number] [place] [address] 45992- 4142 Jan, Diabetes type 2, uncontrolled E11.65 [facility] [address] [place] [address] [id number] [place] [address] 80367- 0642 Jan, [facility] [address] [place] [address] [id number] [place] [address] 08389- 3350 Jan, Controlled type 2 diabetes mellitus without complication, without long-term current use of insulin E11.9 ; Chest wall pain R07.89 and Thoracic spine pain M54.6 [facility] [address] [place] [id number] [place] [address] 59531- 5165 Dec, [facility] [address] [place] [id number] [place] [address] 83685- 1437 Dec, [facility] [address] [id number] [place] [address] 01340- 2196 Nov, [facility] [address] [place] [id number] [place] [address] 93617- 0245 Nov, [facility] [address] [place] [id number] [place] [address] 30109 -2781 Nov, Trichomonas exposure Z20.2 [facility] [address] [place] [address] [id number] [place] [address] 66398- 6742 Oct, [facility] [address] [place] [id number] [place] [address] 76374- 3760 Oct, [facility] [address] [place] [address] [id number] [place] [address] 46809- 7783 Oct, [facility] [address] [place] [id number] [place] [address] 83750- 5064 Oct, [facility] [address] [place] [address] [id number] [place] [address] 36088- 7300 Sep, [facility] [address] [id number] [place] [address]- 8902 Sep, [facility] [address] [id number] [place] [address]- 7478 Aug, [facility] [address] [id number] [place] 6913 Aug, [facility] [address] [id number] [place] [address]- 2262 Aug, [facility] [address] [id number] [place] [address]- 5752 Aug, [facility] [address] [id number] [place] [address]- 7327 July, Diabetes type 2, controlled E11.9 [facility] [address] [id number] [place] [address]- 2530 July, [facility] [address] [id number] [place] [address]- 8403 July, [facility] [address] [id number] [place] [address]- 9343 July, [facility] [address] [id number] [place] [address]- 1638 July, [facility] [address] [id number] [place] [address]- 8329 Jun, [facility] [place] [facility] [address] [id number] [place] [address]- 3499 Jun, [facility] [place] [facility] [address] [id number] [place] [address]- 6087 May, [facility] [place] [facility] [address] [id number] [place] 2125 May, [facility] [place] [facility] [address] [id number] [place] [address]- 5587 May, [facility] [place] [facility] [address] [place] [address]- 5737 May, Controlled type 2 diabetes mellitus without complication, without long-term current use of insulin E11.9 [facility] [address] [facility] [id number] 7199 15 Apr, 2016 [facility] [address] [address]- 0677 Apr, [facility] [address] [facility] [id number] [address]- 0829 Mar, [facility] [address] [facility] [id number] [place] [address]- 3598 Mar, [facility] [address], [place] [address]- 7668 Feb, [facility] [address] [address]- 0176 Feb, [facility] [address] [address]- 8174 Jan, [facility] [address], [place] [address]- 1316 Jan, [facility] [address], [place] [address]- 2339 Jan, [facility] [address], [place] [address]- 3701 Dec, [facility] [address], [place] [address]- 6733 Dec, [facility] [address], [place] [address]- 6852 Dec, [facility] [address] [address]- 0635 29 Nov, 2015 Diabetes type 2, uncontrolled E11.65 [facility] [address], [place] [address]- 7942 14 Nov, 2015 [facility] [address] [address]- 8526 Nov, [facility] [id number] [place] [address] 75377- 3789 Oct, [facility] [address], [place] [address]- 2954 Oct, [facility] [address] [place] [id number] [place] [address] 58802- 0941 Sep, Controlled type 2 diabetes mellitus without complication, without long-term current use of insulin E11.9 [facility] [address] [place] [id number] [place] [address] 75151- 1625 Sep, [facility] [address] [place] [address] [id number] [place] [address] 39747- 6186 Sep, [facility] [address] [place] [id number] [place] [address] 39267- 6626 Sep, [facility] [address], [place] [address]- 4036 Sep, [facility] [id number] [place] [address] 35657- 8353 Aug, Diabetes type 2, controlled E11.9 ; Anxiety F41.9 ; Carpal tunnel syndrome, left upper limb G56.02 and Carpal tunnel syndrome, right upper limb G56.01 [facility] [address], [place] [address]- 9372 Aug, Urethritis N34.2 [facility] [address] [address]- 2740 Aug, [facility] [address] [place] [address] [id number] [address]- 2715 July, Genital warts A63.0 [facility] [address], [place] [address]- 7104 July, [facility] [address] [place] [id number] [address]- 3984 July, Genital warts A63.0 [facility] [address] [place] [id number] [place] [address] 23762- 5620 July, Anxiety F41.9 [facility] [address] [place] [id number] [place] [address] 86793- 9495 Jun, Genital warts A63.0 [facility] [address] [place] [id number] [place] [address] 31525- 2027 Jun, Anxiety F41.9 [facility] [id number] [place] [address] 88821- 3727 May, Genital warts A63.0 and Diabetes type 2, uncontrolled E11.65 [facility] [address] [place] [id number] [place] [address] 75970- 5275 May, [facility] [address] [place] [id number] [place] [address] 08625- 6904 May, [facility] [id number] [place] [address] 53586- 2171 Apr, [facility] [id number] [place] [address] 70245- 2131 Apr, [facility] [id number] [place] [address] 16534- 8529 Apr, Diabetes type 2, controlled E11.9 [facility] [id number] [place] [address] 20752- 5475 Apr, Genital warts A63.0 [facility] [id number] [place] [address] 46259- 6075 Apr, [facility] [id number] [place] [address] 80171- 6044 Apr, Diabetes type 2, uncontrolled E11.65 and Genital warts A63.0 [facility] [address] [place] [id number] [place] [address] 88358- 2328 Apr, [facility] [address], [place] [address]- 9684 Mar, [facility] [address] [place] [id number] [place] [address] 81283- 3751 Mar, [facility] [address] [place] [id number] [place] [address] 22302- 1382 Mar, Family history of diabetes mellitus V18.0 and Weight loss R63.4 [facility] [id number] [place] [address] 18593- 7498 Mar, Genital warts A63.0 and Family history of diabetes mellitus V18.0 [facility] [address] [place] [id number] [place] [address] 46761- 8729 Feb, [facility] [address] [place] [id number] [place] [address] 35684- 1850 Jan, [facility] [address] [place] [id number] [place] [address] 37781- 2349 Jan, Perianal venereal warts A63.0 [facility] [id number] [place] [address] 60311- 7858 Jan, Urethritis N34.2 and Anxiety F41.9 [facility] [address] [place] [id number] [place] [address] 53976- 4524 Jan, [facility] [address] [place] [id number] [place] [address] 30658- 8501 Jan, Urinary tract infection, site unspecified N39.0 [facility] [id number] [place] [address] 87787- 9499 Jan, [facility] [id number] [place] [address] 09307- 2594 Dec, [facility] [id number] [place] [address] 54413- 5912 Dec, HPV (human papilloma virus) anogenital infection A63.0 ; Anxiety F41.9 and Gastroesophageal reflux disease without esophagitis K21.9 [place] [address] [place] [id number] [place] [address] 79139- 3462 Sep, Blood in stool 578.1 [place] [address] [place] [id number] [place] [address] 15875- 8109 Aug, Blood in stool 578.1 [place] [address] 36842- 6383 Aug, Anxiety 300.00 and Blood in stool 578.[address] 22431- 0306 July, [address] 47742- 8551 July, Family history of diabetes mellitus V18.0 [place] [id number] [place] [address] 72476- 5667 July, Family history of diabetes mellitus V18.0 ; Family history of thyroid disease V18.19 ; Polyuria 788.42 ; Polydipsia 783.5 ; Alopecia 704.00 and Fatigue 780.79 [place] [id number] [place] [address] 73913- 3222 Jun, [place] [id number] [place] [address] 50408- 1539 Jun, [place] [address] [place] [id number] [place] [address] 91816- 3557 Mar, [place] [address] [place] [id number] [place] [address] 83677- 4058 Mar, [place] [address] [place] [id number] [place] [address] 30446- 9347 Mar, [place] [address] [place] [id number] [place] [address] 79067- 5599 Mar, [address] [id number] [place] [address]- 0403 Mar, [facility] [place] [facility] [address] [id number] [place] [address]- 1303 Mar, [facility] [place] [facility] [address] [id number] [place] [address]- 8251 Mar, [facility] [place] [facility] [address] [id number] [place] [address]- 1672 Mar, [facility] [place] [facility] [address] [id number] [place] [address]- 0680 Mar, [facility] [place] [facility] [address] [id number] [place] [address]- 2134 Mar, [facility] [place] [facility] [address] [id number] [place] [address]- 0175 Feb, [facility] [place] [facility] [address] [id number] [place] [address]- 8257 Feb, [facility] [place] [facility] [address] [id number] [place] [address]- 2941 Jan, [facility] [place] [facility] [address] [id number] [place] [address]- 6873 Jan, [facility] [place] [facility] [address] [id number] [place] [address]- 1621 Jan, [facility] [place] [facility] [address] [id number] [place] [address]- 2098 Jan, [facility] [place] [facility] [address] [id number] [place] [address]- 9419 Dec, [facility] [place] [facility] [address] [id number] [place] [address]- 6254 Dec, [facility] [place] [facility] [address] [id number] [place] [address]- 8363 Nov, [facility] [place] [facility] [address] [id number] [place] [address]- 7389 Nov, [facility] [place] [facility] [address] [id number] [place] [address]- 8448 Oct, [facility] [place] [facility] [address] [id number] [place] [address]- 1365 Oct, [facility] [place] [facility] [address] [id number] [place] [address]- 4616 Oct, [facility] [place] [facility] [address] [id number] [place] [address]- 2107 Oct, [facility] [place] [facility] [address] [id number] [place] [address]- 6377 Oct, [facility] [place] [facility] [address] [id number] [place] [address]- 3816 Oct, [facility] [place] [facility] [address] [id number] [place] [address]- 1658 Oct, [facility] [place] [facility] [address] [id number] [place] [address]- 1615 Oct, [facility] [place] [facility] [address] [id number] [place] [address]- 3094 Sep, [facility] [place] [facility] [address] [id number] [place] [address]- 1287 Sep, [facility] [place] [facility] [address] [id number] [place] [address]- 7710 Sep, [facility] [place] [facility] [address] [id number] [place] [address]- 6435 Sep, [facility] [place] [facility] [address] [id number] [place] [address]- 4196 Aug, [facility] [place] [facility] [address] [id number] [place] [address]- 9486 Aug, [facility] [place] [facility] [address] [id number] [place] [address]- 1533 Aug, [facility] [place] [facility] [address] [id number] [place] [address]- 3377 Aug, [facility] [address] [id number] [place] [address]- 4995 July, [facility] [place] [facility] [address] [id number] [place] [address]- 1165 July, [facility] [place] [facility] [address] [id number] [place] [address]- 3973 July, [facility] [place] [facility] [address] [id number] [place] [address]- 3235 July, [facility] [place] [facility] [address] [id number] [place] [address]- 8930 July, [facility] [place] [facility] [address] [id number] [place] [address]- 9006 July, [facility] [place] [facility] [address] [id number] [place] [address]- 7587 Jun, [facility] [place] [facility] [address] [id number] [place] [address]- 4401 Jun, [facility] [place] [facility] [address] [id number] [place] [address]- 1296 Jun, [facility] [place] [facility] [address] [id number] [place] [address]- 0219 15 Jun, 2013 [facility] [place] [facility] [address] [id number] [place] [address]- 7025 Jun, [facility] [place] [facility] [address] [id number] [place] [address]- 0100 Jun, [facility] [place] [facility] [address] [id number] [place] [address]- 1972 Jun, [facility] [place] [facility] [address] [id number] [place] [address]- 5268 Jun, [facility] [place] [facility] [address] [id number] [place] [address]- 0913 May, [facility] [place] [facility] [address] [id number] [place] [address]- 1195 May, [facility] [place] [facility] [address] [id number] [place] [address]- 3841 May, [facility] [place] [facility] [address] [id number] [place] [address]- 4599 Apr, [facility] [place] [facility] [address] [id number] [place] [address]- 8455 Apr, [facility] [place] [facility] [address] [id number] [place] [address]- 7845 Apr, [facility] [place] [facility] [address] [id number] [place] [address]- 0119 Apr, [facility] [place] [facility] [address] [id number] [place] [address]- 8693 Mar, [facility] [place] [facility] [address] [id number] [place] [address]- [address] Mar, [facility] [place] [facility] [address] [id number] [place] [address] Mar, [facility] [place] [facility] [address] [id number] [place] [address] Mar, [facility] [place] [facility] [address] [id number] [place] [address] Mar, [facility] [place] [facility] [address] [id number] [place] [address] Mar, [facility] [place] [facility] [address] [id number] [place] [address] Feb, [facility] [place] [facility] [address] [id number] [place] [address] Feb, [facility] [place] [facility] [address] [id number] [place] Jan, [facility] [place] [facility] [address] [id number] [place] [address] Jan, [facility] [place] [facility] [address] [id number] [place] [address] Jan, [facility] [place] [facility] [address] [id number] [place] [address] Jan, [facility] [place] [facility] [address] [id number] [place] [address] Jan, [facility] [place] [facility] [address] [id number] [place] [address] Jan, [facility] [place] [facility] [address] [id number] [place] [address] Jan, [facility] [place] [facility] [address] [id number] [place] [address] Dec, [facility] [place] [facility] [address] [id number] [place] [address] Dec, [facility] [place] [facility] [address] [id number] [place] [address] Nov, [facility] [place] [facility] [address] [id number] [place] [address] Nov, [facility] [place] [facility] [address] [id number] [place] [address] Nov, [facility] [place] [facility] [address] [id number] [place] [address] Oct, [facility] [place] [facility] [address] [id number] [place] [address] Oct, [facility] [place] [facility] [address] [id number] [place] [address] Oct, [facility] [place] [facility] [address] [id number] [place] [address] Oct, [facility] [place] [facility] [address] [id number] [place] [address] Sep, [facility] [place] [facility] [id number] [address] Sep, [facility] [id number] [place] [address] Aug, [facility] [id number] [place] [address] Aug, [facility] [id number] [place] [address] Aug, [facility] [address] [facility] [id number] [address] Aug, [facility] [id number] [place] [address] July, [facility] [id number] [place] [address] July, [facility] [id number] [place] [address] July, [facility] [id number] [place] [address] July, [facility] [id number] [place] [address] Jun, [facility] [id number] [address] Jun, [facility] [address] [id number] [address] Feb, [facility] [address] [id number] [address] Feb, [facility] [address] [id number] [address] Mar, IMMUNIZATIONS No Known Immunizations SOCIAL HISTORY [...]
--- NOTE | 2017-10-18 09:27 | ED Integumentary General ---
General Chief Complaint: Skin/Wound Problems Stated Complaint: SORE ON TOP OF HEAD,WORTHY Source: patient Exam Limitations: no limitations History of Present Illness Date Seen by Provider: Oct 18, 2017 Time Seen by Provider: 09:09 Initial Comments Here with abscess to the top of the head. This is been going on for a few days. States it's a little tender. Significant other reports that it did drain a little bit of purulent fluids morning. States that he also has some other areas that have cropped up recently to his groin and left side of his chest but this is the new one. He has appointment with his DrOk on 25 October. Took ibuprofen last night but has not taken anything today. Has history of elevated blood sugar earlier this month but that is currently better and his blood sugar this morning was 110. Timing/Duration: getting worse, other (4 days) Severity: moderate Location: scalp Possible Cause: no cause identified Associated Symptoms: change in skin texture, edema Allergies and Home Medications Allergies Coded Allergies: NKANo Known Allergies (Unverified Allergy, Mild, 01/06/09) Home Medications Acetaminophen 500 Mg Tablet, 1,000 MG PO Q4H PRN for PAIN-MILD, (Reported) Gabapentin 600 Mg Tablet, 600 MG PO TID, (Reported) LAST FILLED #90 3-12-18 Ibuprofen 200 Mg Tablet, 400-800 MG PO TID PRN for PAIN-MILD, (Reported) Metformin HCl 1,000 Mg Tablet, 1,000 MG PO BID, (Reported) LAST FILLED #60 3-12-18 Pantoprazole Sodium 40 Mg Tablet.dr, 40 MG PO DAILY, (Reported) LAST FILLED #30 12-18 Pioglitazone HCl 15 Mg Tablet, 15 MG PO DAILY, (Reported) LAST FILLED #30 3-12-18 Patient Home Medication List Home Medication List Reviewed: Yes Constitutional: see HPI; No chills, No fever Respiratory: no symptoms reported Cardiovascular: no symptoms reported Skin: see HPI, change in color, lesions Psychiatric/Neurological: Headache; Denies Weakness Past Ojgqsux-Vyziyh-Faeqgq Hx Past Med/Social Hx: Reviewed Nursing Past Med/Soc Hx Patient Social History Alcohol Use: Occasionally Uses Alcohol Beverage of Choice: Beer Drug of Choice: THC, METH BY HISTORY Smoking Status: Current Everyday Smoker Type Used: Cigarettes Recent Foreign Travel: No Contact w/Someone Who Travel: No Recent Hopitalizations: No Immunizations Up To Date Tetanus Booster (TDap): Less than 5yrs Date of Influenza Vaccine: Mar 11, 2011 Seasonal Allergies Seasonal Allergies: No Past Medical History Surgeries: Yes (URETHERAL DILATION-UNDER LOCAL; EXCISION OF ANAL WARTS) Respiratory: No Cardiac: Yes Hypertension Neurological: No Sexually Transmitted Disease: Yes (GENITAL WARTS) HIV/AIDS: No Gastrointestinal: No Musculoskeletal: Yes Chronic Back Pain Endocrine: Yes (VERY NON COMPLIANT DIABETIC ) Diabetes, Non-Insulin dep HEENT: No Cancer: No Psychosocial: Yes Anxiety Integumentary: Yes (GENITAL WARTS) Blood Disorders: No Family Medical History Reviewed Nursing Family Hx No Pertinent Family Hx Physical Exam Vital Signs Capillary Refill : General Appearance: WD/WN, no apparent distress Neck: full range of motion, supple Cardiovascular: regular rate, rhythm, no murmur Respiratory: lungs clear, normal breath sounds Neurologic/Psychiatric: alert, oriented x 3 Skin: warm/dry Skin Problem Location: scalp Skin Problem Character: abscess, drainage, erythema, lesion, other (1 area of induration surrounding by 1 cm area of erythema to the top of the head. Minimal amount of fluctuance. Apparently it drained earlier. Tender and area of concern.) Progress/Results/Core Measures Results/Orders My Orders Orders - BELÉN HOWELL MD Rx-Mupirocin 2% Oint (Rx-Bactroban) (10/18/17 09:15) Ibuprofen Tablet (Motrin Tablet) (10/18/17 09:15) Sulfamethoxazole/Trimet Ds Tab (Bactrim (10/18/17 09:15) Progress Progress Note : Progress Note Seen and evaluated. Mupirocin ointment to wound. Bactrim DS one tab by mouth given. Ibuprofen 800 mg by mouth given. Discharged home with return precautions. Patient verbalize understanding instructions and agreement with plan. Patient instructed and highly encouraged to keep follow-up appointment especially as he has multiple skin complaints and these will need further evaluation. Patient reports intent to comply. Departure Impression Primary Impression: Abscess Disposition: HOME, SELF-CARE Condition: Improved Departure-Patient Inst. Decision time for Depature: 09:33 Referrals: JODY LACKEY MD (PCP/Family) Primary Care Physician Patient Instructions: Skin Abscess Add. Discharge Instructions: All discharge instructions reviewed with patient and/or family. Voiced understanding. Use antibiotic ointment over wound on top of head 3 times a day. Take other medication as directed. You may take ibuprofen 800 mg every 8 hours as needed for fever or pain. You may take Tylenol/acetaminophen 1000 mg every 8 hours as needed for fever or pain. Keep follow-up appointment with your doctor next week and discuss the other skin concerns including the left chest with your Dr. to ensure improvement and to discuss further workup as indicated. Return for worse pain, fever, vomiting, weakness, breathing problems or other concerns as needed. Scripts Sulfamethoxazole/Trimethoprim (Sulfamethoxazole-Tmp Ds Tablet) 1 Each Tablet 1 EACH PO BID, #14 TAB 0 Refills Prov: BELÉN HOWELL MD 10/18/17 BELÉN HOWELL MD Oct 18, 2017 09:27
--- OUTSIDE RECORDS SUMMARY | 2017-10-18 09:27 | XMS REPORT ---
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 Name Role Phone MIRELLA MARIA Unavailable PROBLEMS Type Condition ICD9-CM Code [id number] Code Onset Dates Condition Status SNOMED Code Problem Mood disorder F39 Active 91119289 Problem Shoulder pain, right M25.511 Active 04849742 Problem Acquired hypothyroidism E03.9 Active 370104108 Problem Low back pain M54.5 Active 772833589 Problem Cervical radiculopathy M54.12 Active 72313565 Problem History of urethral stricture Z87.448 Active 087718158 Problem Diabetes type 2, uncontrolled E11.65 Active 022007726 Problem Hypertension, benign I10 Active 02046870 Problem Controlled type 2 diabetes mellitus without complication, without long -term current use of insulin E11.9 Active 979617773 Problem Diabetes type 2, controlled E11.9 Active 81530961 ALLERGIES No Information ENCOUNTERS Encounter Location Date Diagnosis [place] [id number] [place] [address] 04522- 3270 Jun, Controlled type 2 diabetes mellitus without complication, without long-term current use of insulin E11.9 [place] [id number] [place] [address] 08464- 4194 19 May, 2017 [place] [id number] [place] [address] 49332- 3706 16 May, 2017 Radiculopathy of cervical region M54.12 [place] [id number] [place] [address] 41741- 5770 14 May, 2017 Controlled type 2 diabetes mellitus without complication, without long-term current use of insulin E11.9 [place] [id number] [place] [address] 40480- 8684 12 May, 2017 [place] [address], [place] [address]- 3046 May, Controlled type 2 diabetes mellitus without complication, without long-term current use of insulin E11.9 [place] [address], [place] [address]- 3800 May, Controlled type 2 diabetes mellitus without complication, without long-term current use of insulin E11.9 [place] [address], [place] [address]- 5548 May, Controlled type 2 diabetes mellitus without complication, without long-term current use of insulin E11.9 [place] [address], [place] [address]- 4886 Apr, [place] [address], [place] [address]- 8270 Apr, Controlled type 2 diabetes mellitus without complication, without long-term current use of insulin E11.9 [place] [address], [place] [address]- 5898 Apr, [place] [address] [address]- 3739 Apr, Controlled type 2 diabetes mellitus without complication, without long-term current use of insulin E11.9 [place] [address], [place] [address]- 7393 Mar, [place] [address] [address]- 8098 Mar, Radiculopathy of cervical region M54.12 [place] [address], [place] [address]- 7932 Mar, Controlled type 2 diabetes mellitus without complication, without long-term current use of insulin E11.9 [place] [id number], [place] [address]- 6205 Feb, Cervical radiculopathy M54.12 ; Acute cystitis without hematuria N30.00 and History of urethral stricture Z87.448 [facility] [address], [place] [address]- 5188 Feb, Controlled type 2 diabetes mellitus without complication, without long-term current use of insulin E11.9 [facility] [id number] [place] [address] 11439- 8064 Feb, [facility] [id number] [place] [address] 66376- 5502 Jan, Diabetes type 2, uncontrolled E11.65 [facility] [id number] [place] [address] 36605- 4082 Jan, [facility] [id number] [place] [address] 16325- 9836 Jan, Controlled type 2 diabetes mellitus without complication, without long-term current use of insulin E11.9 ; Chest wall pain R07.89 and Thoracic spine pain M54.6 [place] [id number] [place] [address] 80892- 8782 Dec, [facility] [id number] [place] [address] 40178- 0730 Dec, [facility] [id number] [place] [address] 03504- 6258 Nov, [facility] [id number] [place] [address] 10014- 2587 Nov, [facility] [id number] [place] [address] 74174 -5592 Nov, Trichomonas exposure Z20.2 [facility] [id number] [place] [address] 65886- 7970 Oct, [facility] [id number] [place] [address] 31333- 8416 Oct, [facility] [id number] [place] [address] 22358- 8421 Oct, [facility] [id number] [place] [address]- 0959 Oct, [facility] [address] [id number] [place] [address]- 0524 Sep, [facility] [place] [facility] [address] [id number] [place] [address]- 2410 Sep, [facility] [address] [id number] [place] [address]- 3257 Aug, [facility] [place] [facility] [address] [id number] [place] [address]- 4162 Aug, [facility] [address] [id number] [place] [address]- 5214 Aug, [facility] [address] [id number] [place] [address]- 3260 Aug, [facility] [address] [id number] [place] [address]- 3610 July, Diabetes type 2, controlled E11.9 [facility] [address] [id number] [place] [address]- 9919 July, [facility] [address] [facility] [id number] [place] [address]- 2324 July, [facility] [address] [id number] [place] [address]- 6713 July, [facility] [address] [id number] [place] [address]- 1387 July, [facility] [place] [facility] [address] [id number] [place] [address]- 4945 Jun, [facility] [place] [facility] [address] [id number] [place] [address]- 4782 Jun, [facility] [place] [facility] [address] [id number] [place] [address]- 7737 May, [facility] [place] [facility] [address] [id number], [place] [address]- 2606 May, [facility] [address] [facility] [id number] [place] [address]- 1950 May, [facility] [id number] [place] [address] 89098- 4206 May, Controlled type 2 diabetes mellitus without complication, without long-term current use of insulin E11.9 [facility] [address] [facility] [id number] [place] [address], [place] [address]- 3424 Apr, [facility] [address] [facility] [id number] [place] [address], [place] [address]- 2546 Apr, [facility] [id number] [place] [address], [place] [address]- 8846 Mar, [facility] [id number] [place] [address] 15336- 8985 Mar, [facility] [id number] [place] [address] 71020- 1339 Feb, [facility] [address], [place] [address]- 1843 Feb, [facility] [id number] [place] [address] 585320- 5912 Jan, [facility] [address], [place] [address]- 9935 Jan, [facility] [id number], [place] [address]- 6290 Jan, [facility] [address] [facility] [id number], [place] [address]- 7832 Dec, [facility] [address] [facility] [id number] [place] [address], [place] [address]- 9936 Dec, [facility] [id number], [place] [address]- 3429 Dec, [facility] [id number] [place] [address] 08259- 7516 29 Nov, 2015 Diabetes type 2, uncontrolled E11.65 [facility] [address], [place] [address]- 3046 14 Nov, 2015 [facility] [id number] [place] [address] 67514- 1218 09 Nov, 2015 [facility] [address] [place] [address] 49818- 0347 Oct, [facility] [id number] [place] [address] 74098- 3015 Oct, [facility] [id number] [place] [address] 68551- 6192 Sep, Controlled type 2 diabetes mellitus without complication, without long-term current use of insulin E11.9 [facility] [id number] [place] [address] 98450- 7334 Sep, [facility] [id number] [place] [address] 86213- 2201 Sep, [facility] [id number] [place] [address] 53434- 1142 Sep, [facility] [id number] [place] [address] 74680- 7013 Sep, [facility] [address] [place] [address] 05937- 2806 Aug, Diabetes type 2, controlled E11.9 ; Anxiety F41.9 ; Carpal tunnel syndrome, left upper limb G56.02 and Carpal tunnel syndrome, right upper limb G56.01 [facility] [address], [place] [address]- 3746 Aug, Urethritis N34.2 [facility] [id number] [place] [address] 06153- 4093 Aug, [facility] [id number] [place] [address] 61351- 7865 July, Genital warts A63.0 [facility] [address] [facility] [id number], [place] [address]- 6886 July, [facility] [address] [facility] [id number], [place] [address] 2546 July, Genital warts A63.0 [facility] [address], [place] [address]- 1316 July, Anxiety F41.9 [facility] [id number] [place] [address] 99877 2546 Jun, Genital warts A63.0 [facility] [address] [place] [address] 57875- 8176 Jun, Anxiety F41.9 [facility] [id number] [place] [address] 80536- 7894 May, Genital warts A63.0 and Diabetes type 2, uncontrolled E11.65 [facility] [address], [place] [address]- 8996 May, [facility] [id number] [place] [address] 62091- 9041 May, [facility] [address], [place] [address]- 9480 Apr, [facility] [address], [place] [address] 2546 Apr, [facility] [address], [place] [address]- 2540 Apr, Diabetes type 2, controlled E11.9 [facility] [address], [place] [address] 2546 Apr, Genital warts A63.0 [facility] [address], [place] [address]- 2546 Apr, [facility] [id number] [place] [address] 56649- 8062 Apr, Diabetes type 2, uncontrolled E11.65 and Genital warts A63.0 [facility] [id number] [place] [address] 87702- 5783 Apr, [facility] [id number] [place] [address] 71766- 1706 Mar, [facility] [id number] [place] [address] 50509- 9175 Mar, [facility] [id number] [place] [address] 06543- 2380 Mar, Family history of diabetes mellitus V18.0 and Weight loss R63.4 [facility] [id number] [place] [address] 08207- 1872 Mar, Genital warts A63.0 and Family history of diabetes mellitus V18.0 [facility] [id number] [place] [address] 16141- 1039 Feb, [facility] [address] [place] [address] 72048- 5436 Jan, [facility] [id number] [place] [address] 05262- 2014 Jan, Perianal venereal warts A63.0 [facility] [address] [place] [address] 74339- 8182 Jan, Urethritis N34.2 and Anxiety F41.9 [facility] [address] [place] [address] 93617- 7260 Jan, [facility] [id number] [place] [address] 41072- 2222 Jan, Urinary tract infection, site unspecified N39.0 [facility] [id number] [place] [address] 77722- 8698 Jan, [facility] [id number] [place] [address] 00813- 3738 Dec, [place] [id number] [place] [address] 46609- 3399 Dec, HPV (human papilloma virus) anogenital infection A63.0 ; Anxiety F41.9 and Gastroesophageal reflux disease without esophagitis K21.9 [place] [id number] [place] [address] 384002- 0925 Sep, Blood in stool 578.1 [place] [address] 42356- 2996 Aug, Blood in stool 578.[address] 628812- 1803 Aug, Anxiety 300.00 and Blood in stool 578.[address] 57711- 8978 July, [address] 65269- 8371 July, Family history of diabetes mellitus V18.[address] 89009- 3422 July, Family history of diabetes mellitus V18.0 ; Family history of thyroid disease V18.19 ; Polyuria 788.42 ; Polydipsia 783.5 ; Alopecia 704.00 and Fatigue 780.79 [place] [id number] [place] [address] 64971- 6708 Jun, [place] [id number] [place] [address] 55147- 5225 Jun, [address] 16039932- 2112 Mar, [place] [id number] [place] [address] 86829- 6048 Mar, [address] 14092- 0597 Mar, [facility] [place] [facility] [address] [id number] [place] [address]- 9572 Mar, [facility] [place] [facility] [address] [id number] [place] [address]- 6895 Mar, [facility] [place] [facility] [address] [id number] [place] [address]- 9253 Mar, [facility] [place] [facility] [address] [id number] [place] [address]- 4798 Mar, [facility] [place] [facility] [address] [id number] [place] [address]- 3719 Mar, [facility] [place] [facility] [address] [id number] [place] [address]- 0920 Mar, [facility] [place] [facility] [address] [id number] [place] [address]- 2725 Mar, [facility] [place] [facility] [address] [id number] [place] [address]- 1311 Feb, [facility] [place] [facility] [address] [id number], [place] [address]- 2650 Feb, [facility] [place] [facility] [address] [id number] [place] [address]- 4892 Jan, [facility] [place] [facility] [address] [id number], [place] [address]- 7954 Jan, [facility] [place] [facility] [address] [id number], [place] [address]- 8805 Jan, [facility] [place] [facility] [address] [id number], [place] [address]- 5191 Jan, [facility] [place] [facility] [address] [id number], [place] [address]- 1231 Dec, [facility] [place] [facility] [address] [id number] [place] [address]- 6993 Dec, [facility] [place] [facility] [address] [id number] [place] [address]- 6071 Nov, [facility] [place] [facility] [address] [id number] [place] [address]- 5893 Nov, [facility] [place] [facility] [address] [id number] [place] [address]- 3226 Oct, [facility] [place] [facility] [address] [id number] [place] [address]- 5150 Oct, [facility] [place] [facility] [address] [id number] [place] [address]- 2329 Oct, [facility] [place] [facility] [address] [id number] [place] [address]- 1538 Oct, [facility] [place] [facility] [address] [id number] [place] [address]- 7331 Oct, [facility] [place] [facility] [address] [id number] [place] [address]- 7762 Oct, [facility] [place] [facility] [address] [id number] [place] [address]- 3980 Oct, [facility] [place] [facility] [address] [id number] [place] [address]- 1958 Oct, [facility] [place] [facility] [address] [id number] [place] [address]- 5781 Sep, [facility] [place] [facility] [address] [id number] [place] [address]- 3845 Sep, [facility] [place] [facility] [address] [id number] [place] [address]- 0138 Sep, [facility] [place] [facility] [address] [id number] [place] [address]- 3693 Sep, [facility] [place] [facility] [address] [id number] [place] [address]- 1441 Aug, [facility] [place] [facility] [address] [id number] [place] [address]- 0131 Aug, [facility] [place] [facility] [address] [id number] [place] [address]- 7987 Aug, [facility] [place] [facility] [address] [id number] [place] [address]- 5946 Aug, [facility] [place] [facility] [address] [id number] [place] [address]- 3133 July, [facility] [place] [facility] [address] [id number] [place] [address]- 7767 July, [facility] [place] [facility] [address] [id number] [place] [address]- 2756 July, [facility] [place] [facility] [address] [id number] [place] [address]- 3292 July, [facility] [place] [facility] [address] [id number] [place] [address]- 4248 July, [facility] [place] [facility] [address] [id number] [place] [address]- 1651 July, [facility] [place] [facility] [address] [id number] [place] [address]- 2588 Jun, [facility] [place] [facility] [address] [id number] [place] [address]- 0774 Jun, [facility] [place] [facility] [address] [id number] [place] [address]- 1476 Jun, [facility] [place] [facility] [address] [id number] [place] [address]- 9101 15 Jun, 2013 [facility] [place] [facility] [address] [id number] [place] [address]- 9182 Jun, [facility] [place] [facility] [address] [id number] [place] [address]- 8964 Jun, [facility] [place] [facility] [address] [id number] [place] [address]- 4384 Jun, [facility] [place] [facility] [address] [id number] [place] [address]- 8361 14 Jun, 2013 [facility] [place] [facility] [address] [id number] [place] [address]- 9718 May, [facility] [place] [facility] [address] [id number] [place] [address]- 8161 May, [facility] [place] [facility] [address] [id number] [place] [address]- 1613 May, [facility] [place] [facility] [address] [id number] [place] [address]- 7311 Apr, [facility] [place] [facility] [address] [id number] [place] [address]- 1218 Apr, [facility] [place] [facility] [address] [id number] [place] [address]- 6363 Apr, [facility] [place] [facility] [address] [id number] [place] [address]- 6691 Apr, [facility] [place] [facility] [address] [id number] [place] [address]- 4433 Mar, [facility] [place] [facility] [address] [id number] [place] [address]- 1993 Mar, [facility] [place] [facility] [address] [id number] [place] [address]- 7119 Mar, [facility] [place] [facility] [address] [id number] [place] [address]- 7131 Mar, [facility] [place] [facility] [address] [id number] [place] [address]- 3621 Mar, [facility] [place] [facility] [address] [id number] [place] [address]- 0255 Mar, [facility] [place] [facility] [address] [id number] [place] [address]- 1123 Feb, [facility] [place] [facility] [address] [id number] [place] [address]- 8485 Feb, [facility] [place] [facility] [address] [id number] [place] [address]- 1296 Jan, [facility] [place] [facility] [address] [id number] [place] [address] Jan, [facility] [place] [facility] [address] [id number] [place] [address] Jan, [facility] [place] [facility] [address] [id number] [place] [address] Jan, [facility] [place] [facility] [address] [id number] [place] [address] Jan, [facility] [place] [facility] [address] [id number] [place] [address] Jan, [facility] [place] [facility] [address] [id number] [place] [address] Jan, [facility] [place] [facility] [address] [id number] [place] [address] Dec, [facility] [place] [facility] [address] [id number] [place] [address] Dec, [facility] [place] [facility] [address] [id number] [place] [address] Nov, [facility] [place] [facility] [address] [id number] [place] [address] Nov, [facility] [place] [facility] [address] [id number] [place] [address] Nov, [facility] [place] [facility] [address] [id number] [place] [address] Oct, [facility] [place] [facility] [address] [id number] [place] [address] Oct, [facility] [place] [facility] [address] [id number] [place] [address] Oct, [facility] [place] [facility] [address] [id number], [place] [address] Oct, [facility] [address] [id number] [place] [address] Sep, [facility] [address] [id number], [place] [address] Sep, [facility] [place] [address] [facility] [id number] [place] [address] Aug, [facility] [place] [address] [id number], [place] [address] Aug, [facility] [address] [id number] [place] [address] Aug, [facility] [address] [facility] [id number] [place] [address] Aug, [facility] [address] [facility] [id number], [place] [address] July, [facility] [address] [facility] [id number] [place] [address] July, [facility] [address] [facility] [id number], [place] [address] July, [facility] [address] [facility] [id number], [place] [address] July, [facility] [address] [facility] [id number], [place] [address] Jun, [facility] [address] [facility] [id number], [place] [address] Jun, [facility] [address] [facility] [id number], [place] [address] Feb, [facility] [address] [facility] [id number], [place] [address] Feb, [facility] [address] [facility] [id number], [place] [address] Mar, IMMUNIZATIONS No Known Immunizations SOCIAL HISTORY [...]
--- OUTSIDE RECORDS SUMMARY | 2017-10-18 09:27 | XMS REPORT ---
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
--- OUTSIDE RECORDS SUMMARY | 2017-10-18 09:27 | XMS REPORT ---
Author Author MIRELLA MARIA Organization [facility] Address [address] [place] [address] Care Team Providers Care Marine Service Station Attendant Name Role Phone MIRELLA MARIA Unavailable PROBLEMS Type Condition ICD9-CM Code [id number] Code Onset Dates Condition Status SNOMED Code Problem Mood disorder F39 Active 19041224 Problem Low back pain M54.5 Active 664894551 Problem Controlled type 2 diabetes mellitus without complication, without long -term current use of insulin E11.9 Active 032928348 Problem Diabetes type 2, controlled E11.9 Active 35290947 Problem Shoulder pain, right M25.511 Active 19668952 Problem Acquired hypothyroidism E03.9 Active 254449663 Problem Diabetes type 2, uncontrolled E11.65 Active 506517420 Problem Hypertension, benign I10 Active 85770776 ALLERGIES No Information SOCIAL HISTORY Never Assessed [...]
--- OUTSIDE RECORDS SUMMARY | 2017-10-18 09:27 | XMS REPORT ---
Author MIRELLA Aranda Organization [employer] Address Unknown Phone Unavailable Care Team Providers Care Motorcycle Maker Name Role Phone MIRELLA MARIA CP Unavailable Allergies No Known Allergies Problems Problem Type Condition Code Onset Dates Condition Status Problem Mood disorder F39 Active Problem Low back pain M54.5 Active Problem Shoulder pain, right M25.511 Active Problem Acquired hypothyroidism E03.9 Active Problem Hypertension, benign I10 Active Medications Medication Code System Code Instructions Start Date End Date Status Dosage Metformin HCl [facility] [address]-70 500 MG Orally Twice a day Apr 16, 2015 1 tablet with meals Results No Known Results Summary Purpose [employer] Submission
--- OUTSIDE RECORDS SUMMARY | 2017-10-18 09:28 | XMS REPORT ---
Author Author MIRELLA MARIA [facility] Address [address] [place] [address] Care Team Providers Care Technical Solution Architect Name Role Phone MIRELLA MARIA Unavailable PROBLEMS Type Condition ICD9-CM Code [id number] Code Onset Dates Condition Status SNOMED Code Problem Mood disorder F39 Active 70380919 Problem Low back pain M54.5 Active 893967783 Problem Controlled type 2 diabetes mellitus without complication, without long -term current use of insulin E11.9 Active 539628820 Problem Diabetes type 2, controlled E11.9 Active 22245463 Problem Shoulder pain, right M25.511 Active 43836065 Problem Acquired hypothyroidism E03.9 Active 632992831 Problem Diabetes type 2, uncontrolled E11.65 Active 427893777 Problem Hypertension, benign I10 Active 63353730 ALLERGIES Unknown Allergies SOCIAL HISTORY No smoking Hx information available PLAN OF CARE VITAL SIGNS MEDICATIONS Medication Instructions Dosage Frequency Start Date End Date Duration Status Tramadol HCl 50 mg Orally every 6 hrs 1 tablet as needed 6h May, 28 days Active RESULTS No Results PROCEDURES No Known procedures IMMUNIZATIONS No Known Immunizations
--- OUTSIDE RECORDS SUMMARY | 2017-10-18 09:28 | XMS REPORT ---
Author Author MIRELLA MARIA Organization [facility] Address [address] [place] [address] Care Team Providers Care Collision Technician Name Role Phone MIRELLA MARIA Unavailable PROBLEMS Type Condition ICD9-CM Code [id number] Code Onset Dates Condition Status SNOMED Code Problem Mood disorder F39 Active 02805769 Problem Low back pain M54.5 Active 013087471 Problem Controlled type 2 diabetes mellitus without complication, without long -term current use of insulin E11.9 Active 549723432 Problem Diabetes type 2, controlled E11.9 Active 64752972 Problem Shoulder pain, right M25.511 Active 32253527 Problem Acquired hypothyroidism E03.9 Active 892509969 Problem Diabetes type 2, uncontrolled E11.65 Active 993094350 Problem Hypertension, benign I10 Active 66073992 ALLERGIES No Information SOCIAL HISTORY Never Assessed [...]
--- OUTSIDE RECORDS SUMMARY | 2017-10-18 09:28 | XMS REPORT ---
Author MIRELLA Aranda Organization [employer] Address Unknown Phone Unavailable Care Team Providers Care Facilities Coordinator Name Role Phone MIRELLA MARIA CP Unavailable Allergies No Known Allergies Problems Problem Type Condition Code Onset Dates Condition Status Problem Mood disorder F39 Active Problem Low back pain M54.5 Active Problem Shoulder pain, right M25.511 Active Problem Acquired hypothyroidism E03.9 Active Problem Hypertension, benign I10 Active Medications Medication Code System Code Instructions Start Date End Date Status Dosage Ativan [facility] [address]-39 0.5 MG Orally Twice a day Jan 10, 2015 1 tablet as needed Results No Known Results Summary Purpose [employer] Submission
--- OUTSIDE RECORDS SUMMARY | 2017-10-18 09:28 | XMS REPORT ---
Author Author MIRELLA MARIA Organization [employer] Address Unknown Phone Unavailable Care Team Providers Care Cargo And Container Inspector Name Role Phone MIRELLA MARIA CP Unavailable Allergies No Known Allergies Problems Problem Type Condition Code Onset Dates Condition Status Problem Mood disorder F39 Active Problem Low back pain M54.5 Active Problem Shoulder pain, right M25.511 Active Problem Acquired hypothyroidism E03.9 Active Problem Hypertension, benign I10 Active Medications No Known Medications Results No Known Results Summary Purpose [employer] Submission
--- OUTSIDE RECORDS SUMMARY | 2017-10-18 09:28 | XMS REPORT ---
Author Author MIRELLA MARIA Organization [employer] Address Unknown Phone Unavailable Care Team Providers Care Gate Supervisor Name Role Phone MIRELLA MARIA CP [...]
--- OUTSIDE RECORDS SUMMARY | 2017-10-18 09:28 | XMS REPORT ---
Author MIRELLA Aranda Organization [employer] Address Unknown Phone Unavailable Care Team Providers Care Physical Therapy Nurse Name Role Phone MIRELLA MARIA CP Unavailable [...] Date End Date Status Dosage Pantoprazole Sodium [facility] [address]-51 40 mg Orally Once a day Jan 10, 2015 1 tablet Results No Known Results Summary Purpose [employer] Submission
--- OUTSIDE RECORDS SUMMARY | 2017-10-18 09:28 | XMS REPORT ---
Author Author MIRELLA MARIA [facility] Address [address] [place] [address] Care Team Providers Care Shorthand Teacher Name Role Phone MIRELLA MARIA Unavailable PROBLEMS Type Condition ICD9-CM Code [id number] Code Onset Dates Condition Status SNOMED Code Problem Acquired hypothyroidism E03.9 Active 617590364 Problem Hypertension, benign I10 Active 17780253 Problem Controlled type 2 diabetes mellitus without complication, without long -term current use of insulin E11.9 Active 941330622 Problem Diabetes type 2, controlled E11.9 Active 63147197 Problem Mood disorder F39 Active 79355466 Problem Low back pain M54.5 Active 944266121 Problem Diabetes type 2, uncontrolled E11.65 Active 182308433 Problem Shoulder pain, right M25.511 Active 69370729 ALLERGIES Unknown Allergies SOCIAL HISTORY No smoking Hx information available PLAN OF CARE VITAL SIGNS MEDICATIONS Medication Instructions Dosage Frequency Start Date End Date Duration Status Tramadol HCl 50 mg Orally every 6 hrs 1 tablet as needed 6h May, 28 days Active RESULTS No Results PROCEDURES No Known procedures IMMUNIZATIONS No Known Immunizations
[2017-10-18 09:30] VITALS: BP 122/87
[2017-10-18] MEDS ORDERED: SULF-222 PO (09:35)
== END 2017-10-18 09:30 | disposition home or self-care (01) ==
LOC: EDUNIT# 09:04 → ER 09:06
DX: L02.811 Cutaneous abscess of head [any part, except face] (principal); I10 Essential (primary) hypertension; E11.9 Type 2 diabetes mellitus without complications; F41.9 Anxiety disorder, unspecified; F17.210 Nicotine dependence, cigarettes, uncomplicated; Z79.84 Long term (current) use of oral hypoglycemic drugs
CPT/HCPCS: 99283

== ENCOUNTER → 2018-01-25 | Outpatient (CLI) | payer OTHER ==
[~2018-01-25] MED LIST changes: +METF-399 PO; -METF10002 PO; +SULF-222 PO
--- NOTE | 2018-01-25 11:06 | Diagnostic Imaging Report ---
INDICATION: Right hip pain. Two views of right hip show no fracture or dislocation. Joint spaces are well maintained. Articular surfaces are smooth. IMPRESSION: Negative right hip. Dictated by: Dictated on workstation # [id number]
--- NOTE | 2018-01-25 11:16 | Diagnostic Imaging Report ---
INDICATION: Low back pain. EXAMINATION: Lumbar spine. FINDINGS: AP and lateral views of the lumbar spine show normal vertebral body height and alignment. The disc spaces are normal. IMPRESSION: Normal lumbar spine. Dictated by: Dictated on workstation # [id number]
--- NOTE | 2018-01-25 11:18 | Diagnostic Imaging Report ---
INDICATION: Left knee pain. FINDINGS: 3 views of left knee show no fracture, dislocation or other acute abnormalities. IMPRESSION: Negative left knee. Dictated by: Dictated on workstation # [id number]
== END ==
LOC: RAD 09:57
DX: M25.551 Pain in right hip (principal); M25.562 Pain in left knee; M54.5 Low back pain
CPT/HCPCS: 72100; 73502; 73562

== ENCOUNTER 2019-08-16 12:13 | Emergency (ER) | payer SELFPAY ==
[~2019-08-16] VITALS: Ht 172.7 cm; Wt 79.5 kg
[~2019-08-16 12:13] MED LIST changes: -GABA600T2 PO; +GBPN600T PO; +TRM50T PO
[2019-08-16] MEDS ORDERED: NS IV 1000 ML 1,000 ML IV SCH ×2 (12:30→14:00)
[2019-08-16] MEDS ORDERED: inSUlin (REGULAR) HUMAN 1 UNIT/0.01 ML (CHARGE PER UNIT) IV ONE ×4 (12:30→15:45)
[2019-08-16 12:38] LABS: BASOPHILS % (AUTO) 1 % (0-10); EOSINOPHILS # (AUTO) 0.2 10^3/uL (0.0-0.3); EOSINOPHILS % (AUTO) 3 % (0-10); HEMATOCRIT 45 % (40-54); HEMOGLOBIN 16.6 G/DL (13.3-17.7); LYMPHOCYTES # (AUTO) 2.8 X 10^3 (1.0-4.0); LYMPHOCYTES % (AUTO) 35 % (12-44); MEAN CORPUSCULAR HEMOGLOBIN 30 PG (25-34); MEAN CORPUSCULAR HGB CONC 37 G/DL (32-36); MEAN CORPUSCULAR VOLUME 83 FL (80-99); MEAN PLATELET VOLUME 11.8 FL (7.4-10.4); MONOCYTES # (AUTO) 0.4 X 10^3 (0.0-1.0); MONOCYTES % (AUTO) 5 % (0-12); NEUTROPHILS # (AUTO) 4.7 X 10^3 (1.8-7.8); NEUTROPHILS % (AUTO) 57 % (42-75); PLATELET COUNT 214 10^3/uL (130-400); RED CELL DISTRIBUTION WIDTH 12.5 % (10.0-14.5); WHITE BLOOD COUNT 8.2 10^3/uL (4.3-11.0)
[2019-08-16 12:43] LABS: ALBUMIN 4.3 GM/DL (3.2-4.5); CHLORIDE 96 MMOL/L (98-107); POTASSIUM 4.2 MMOL/L (3.6-5.0); SODIUM 130 MMOL/L (135-145)
[2019-08-16 12:44] LABS: AMYLASE 31 U/L (25-125); CALCIUM 9.3 MG/DL (8.5-10.1)
[2019-08-16 12:45] LABS: TOTAL PROTEIN 7.7 GM/DL (6.4-8.2)
[2019-08-16 12:46] LABS: CARBON DIOXIDE 19 MMOL/L (21-32)
[2019-08-16 12:47] LABS: BILIRUBIN,TOTAL 0.3 MG/DL (0.1-1.0)
[2019-08-16 12:49] LABS: ALKALINE PHOSPHATASE 157 U/L (40-136); CREATININE SERUM 1.23 MG/DL (0.60-1.30); GFR ESTIMATED > 60
[2019-08-16 12:50] LABS: BUN/CREATININE RATIO 8
[2019-08-16 12:52] LABS: ALANINE AMINOTRANSFERASE 19 U/L (0-55)
[2019-08-16 12:53] LABS: LIPASE 38 U/L (8-78)
[2019-08-16 13:02] LABS: GLUCOSE 749 MG/DL (70-105)
--- NOTE | 2019-08-16 13:36 | ED General ---
General Chief Complaint: Glucose Problems Stated Complaint: HIGH BLOOD SUGAR Nursing Triage Note: AMB TO ROOM REPORTS HAS BEEN OUT OF INSULIN FOR 1 MONTH DID NOT HAVE A WAY TO GET TO [facility] TO GET MEDS. UNSURE WHAT BS HAS BEEN. ALSO REPORTS UNABLE TO WORK BECAUSE HE IS TO WEAK. AND CAN'T PAY MED BILL AT [facility] Nursing Sepsis Screen: No Definite Risk Source of Information: Patient Exam Limitations: No Limitations History of Present Illness Date Seen by Provider: August 16, 2019 Time Seen by Provider: 12:30 Initial Comments 39-year-old male who presents to the emergency room with complaints of being out of his diabetic medication for the past month. He reports that he has not had a ride to be able to get to [facility] to shrimp picker his prescriptions. He denies checking his blood sugar but reports that he is been feeling weak. He denies any nausea vomiting, dysuria, shortness of air, chest pain. He reports that he is out of his glipizide, metformin, and tresiba. Timing/Duration: Other (1 month. ) Associated Systoms: Denies Symptoms Allergies and Home Medications Allergies Coded Allergies: NKANo Known Allergies (Unverified Allergy, Mild, 01/06/09) Home Medications Metformin HCl 1,000 Mg Tablet, 1,000 MG PO BID, (Reported) LAST FILLED #60 18 Past Ezwyaqo-Hpnins-Jewfdo Hx Patient Social History Alcohol Use: Occasionally Uses Number of Drinks Today: AA Alcohol Beverage of Choice: Beer Recreational Drug Use: No Drug of Choice: THC, METH BY HISTORY Smoking Status: Current Everyday Smoker Type Used: Cigarettes Recent Foreign Travel: No Contact w/Someone Who Travel: No Recent Infectious Disease Expo: No Recent Hopitalizations: No Immunizations Up To Date Tetanus Booster (TDap): Less than 5yrs Date of Influenza Vaccine: Mar 11, 2011 Seasonal Allergies Seasonal Allergies: No Past Medical History Surgeries: Yes (URETHERAL DILATION-UNDER LOCAL; EXCISION OF ANAL WARTS) Respiratory: No Cardiac: Yes High Cholesterol, Hypertension Neurological: No Sexually Transmitted Disease: Yes (GENITAL WARTS) HIV/AIDS: No Gastrointestinal: No Musculoskeletal: Yes Chronic Back Pain Endocrine: Yes (VERY NON COMPLIANT DIABETIC ) Diabetes, Non-Insulin dep HEENT: No Cancer: No Psychosocial: Yes Anxiety Integumentary: Yes (GENITAL WARTS) Blood Disorders: No Family Medical History No Pertinent Family Hx Physical Exam Vital Signs Vital Signs - First Documented 08/16/19 08/16/19 12:16 16:14 Temp 36.7 Pulse 97 Resp 18 B/P (MAP) 124/93 (103) Pulse Ox 98 O2 Delivery Room Air Capillary Refill : Less Than 3 Seconds Height, Weight, BMI Height: 5'8.00" Weight: 182lbs. 0.9oz. 82.974622rf; 26.00 BMI Method:Stated Progress/Results/Core Measures Suspected Sepsis Recent Fever Within 48 Hours: No Infection Criteria Present: None New/Unexplained Altered Menta: No Sepsis Screen: No Definite Risk SIRS Temperature: Pulse: 97 Respiratory Rate: 18 Laboratory Tests 08/16/19 12:22: White Blood Count 8.2 Blood Pressure 124 /93 Mean: 103 Laboratory Tests 08/16/19 12:22: Creatinine 1.23, Platelet Count 214, Total Bilirubin 0.3 Results/Orders Lab Results Laboratory Tests Test 08/16/19 12:22 08/16/19 13:30 08/16/19 13:31 08/16/19 14:25 Range/Units White Blood Count 8.2 4.3-11.0 10^3/uL Red Blood Count 5.48 4.35-5.85 10^6/uL Hemoglobin 16.6 13.3-17.7 G/DL Hematocrit 45 40-54 % Mean Corpuscular Volume 83 80-99 FL Mean Corpuscular Hemoglobin 30 25-34 PG Mean Corpuscular Hemoglobin Concent 37 H 32-36 G/DL Red Cell Distribution Width 12.5 10.0-14.5 % Platelet Count 214 130-400 10^3/uL Mean Platelet Volume 11.8 H 7.4-10.4 FL Neutrophils (%) (Auto) 57 42-75 % Lymphocytes (%) (Auto) 35 12-44 % Monocytes (%) (Auto) 5 0-12 % Eosinophils (%) (Auto) 3 0-10 % Basophils (%) (Auto) 1 0-10 % Neutrophils # (Auto) 4.7 1.8-7.8 X 10^3 Lymphocytes # (Auto) 2.8 1.0-4.0 X 10^3 Monocytes # (Auto) 0.4 0.0-1.0 X 10^3 Eosinophils # (Auto) 0.2 0.0-0.3 10^3/uL Basophils # (Auto) 0.0 0.0-0.1 10^3/uL Sodium Level 130 L 135-145 MMOL/L Potassium Level 4.2 3.6-5.0 MMOL/L Chloride Level 96 L 98-107 MMOL/L Carbon Dioxide Level 19 L 21-32 MMOL/L Anion Gap 15 H 5-14 MMOL/L Blood Urea Nitrogen 10 7-18 MG/DL Creatinine 1.23 0.60-1.30 MG/DL Estimat Glomerular Filtration Rate > 60 BUN/Creatinine Ratio 8 Glucose Level 749 *H 70-105 MG/DL Glucometer > 600 *H 497 *H 492 *H 70-110 MG/DL Calcium Level 9.3 8.5-10.1 MG/DL Corrected Calcium 9.1 8.5-10.1 MG/DL Magnesium Level 2.0 1.6-2.4 MG/DL Total Bilirubin 0.3 0.1-1.0 MG/DL Aspartate Amino Transf (AST/SGOT) 15 5-34 U/L Alanine Aminotransferase (ALT/SGPT) 19 0-55 U/L Alkaline Phosphatase 157 H 40-136 U/L Total Protein 7.7 6.4-8.2 GM/DL Albumin 4.3 3.2-4.5 GM/DL Amylase Level 31 25-125 U/L Lipase 38 8-78 U/L Urine Color YELLOW Urine Clarity CLEAR Urine pH 6.0 5-9 Urine Specific Gatzke <=1.005 1.016-1.022 Urine Protein NEGATIVE NEGATIVE Urine Glucose (UA) 3+ H NEGATIVE Urine Ketones 1+ H NEGATIVE Urine Nitrite NEGATIVE NEGATIVE Urine Bilirubin NEGATIVE NEGATIVE Urine Urobilinogen 0.2 < = 1.0 MG/DL Urine Leukocyte Esterase NEGATIVE NEGATIVE Urine RBC (Auto) NEGATIVE NEGATIVE Urine RBC NONE /HPF Urine WBC 0-2 /HPF Urine Crystals PRESENT H /LPF Urine Amorphous Sediment RARE ANTONIO URATES H /LPF Urine Bacteria NEGATIVE /HPF Urine Casts NONE /LPF Urine Mucus NEGATIVE /LPF Urine Culture Indicated NO Urine Opiates Screen NEGATIVE NEGATIVE Urine Oxycodone Screen NEGATIVE NEGATIVE Urine Methadone Screen NEGATIVE NEGATIVE Urine Propoxyphene Screen NEGATIVE NEGATIVE Urine Barbiturates Screen NEGATIVE NEGATIVE Ur Tricyclic Antidepressants Screen NEGATIVE NEGATIVE Urine Phencyclidine Screen NEGATIVE NEGATIVE Urine Amphetamines Screen NEGATIVE NEGATIVE Urine Methamphetamines Screen NEGATIVE NEGATIVE Urine Benzodiazepines Screen NEGATIVE NEGATIVE Urine Cocaine Screen NEGATIVE NEGATIVE Urine Cannabinoids Screen NEGATIVE NEGATIVE Test 08/16/19 15:16 08/16/19 16:08 Range/Units Glucometer 500 *H 349 H 70-110 MG/DL My Orders Orders - MANOJ RENAE Accucheck Stat ONCE (08/16/19 12:17) Comprehensive Metabolic Panel (08/16/19 12:26) Ua Culture If Indicated (08/16/19 12:26) Ed Iv/Invasive Line Start (08/16/19 12:26) Cbc With Automated Diff (08/16/19 12:26) Ns Iv 1000 Ml (Sodium Chloride 0.9%) (08/16/19 12:30) Insulin (Regular) Human (Humulin R (Per (08/16/19 12:30) Amylase (08/16/19 12:22) Lipase (08/16/19 12:22) Magnesium (08/16/19 12:22) Drug Screen Stat (Urine) (08/16/19 12:40) Ns Iv 1000 Ml (Sodium Chloride 0.9%) (08/16/19 14:00) Insulin (Regular) Human (Humulin R (Per (08/16/19 15:00) Insulin (Regular) Human (Humulin R (Per (08/16/19 15:45) Medications Given in ED Current Medications Medications Dose Ordered Sig/Melinda Route Start Time Stop Time Status Last Admin Dose Admin Insulin Human Regular 5 unit ONCE ONCE IV 08/16/19 15:00 08/16/19 15:01 DC 08/16/19 14:59 5 UNIT Insulin Human Regular 10 unit ONCE ONCE IV 08/16/19 12:30 08/16/19 12:31 DC 08/16/19 12:49 10 UNIT Insulin Human Regular 10 unit ONCE ONCE IV 08/16/19 15:45 08/16/19 15:46 DC 08/16/19 15:45 10 UNIT Vital Signs/I&O 08/16/19 08/16/19 12:16 16:14 Temp 36.7 Pulse 97 99 Resp 18 16 B/P (MAP) 124/93 (103) 113/78 (103) Pulse Ox 98 99 O2 Delivery Room Air Room Air Capillary Refill : Less Than 3 Seconds Blood Pressure Mean: 103 Point of Care Testing Finger Stick Blood Glucose: 600 Blood Glucose Action Taken: BLOOD SUGAR TO HI TO READ Departure Impression Primary Impression: Diabetes mellitus Additional Impression: Hyperglycemia Disposition: 01 HOME, SELF-CARE Condition: Stable/Unchanged Departure-Patient Inst. Decision time for Depature: 15:24 Referrals: [facility] (PCP) Primary Care Physician MIRELLA WITT (Family) Primary Care Physician Patient Instructions: Diabetes Type 2 (DC) Add. Discharge Instructions: Go directly to [facility] to shrimp picker your medications and take them as prescribed. [facility] will assist you in finance and your medications. Call today to schedule an appointment for follow-up with your PCP Hiren Witt. Return back to the emergency room for worsening symptoms, elevated blood sugars, signs of DKA. All discharge instructions reviewed with patient and/or family. Voiced understanding. MANOJ RENAE August 16, 2019 13:36
[2019-08-16 13:40] LABS: BILIRUBIN,URINE NEGATIVE (NEGATIVE); CLARITY,URINE CLEAR; COLOR,URINE YELLOW; GLUCOSE, URINE (UA) 3+ (NEGATIVE); KETONES,URINE 1+ (NEGATIVE); LEUKOCYTE ESTERASE ,URINE NEGATIVE (NEGATIVE); NITRITE,URINE NEGATIVE (NEGATIVE); PROTEIN,URINE NEGATIVE (NEGATIVE)
[2019-08-16 13:52] LABS: AMPHETAMINE SCREEN, URINE NEGATIVE (NEGATIVE); BARBITURATE SCREEN URINE NEGATIVE (NEGATIVE); BENZODIAZEPINES SCREEN URINE NEGATIVE (NEGATIVE); CANNABINOID SCREEN, URINE NEGATIVE (NEGATIVE); COCAINE SCREEN URINE NEGATIVE (NEGATIVE); METHADONE STAT NEGATIVE (NEGATIVE); METHAMPHETAMINE SCREEN URINE S NEGATIVE (NEGATIVE); OPIATE SCREEN URINE NEGATIVE (NEGATIVE); OXYCODONE STAT NEGATIVE (NEGATIVE); PROPOXYPHENE STAT NEGATIVE (NEGATIVE); TRICYCLIC ANTIDEPRESSANTS SCRE NEGATIVE (NEGATIVE)
[2019-08-16 13:54] LABS: AMORPHOUS SEDIMENT,UR RARE AMOR URATES /LPF; BACTERIA,URINE NEGATIVE /HPF; WBC,URINE 0-2 /HPF
--- OUTSIDE RECORDS SUMMARY | 2019-08-16 14:06 | XMS REPORT ---
Author Author [employer]. [facility] [employer]. 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 Role Phone CROWMIRELLA Unavailable Unavailable LANE, GERALDO Unavailable Unavailable [facility] Unavailable [facility] Unavailable [phone] CROWMIRELLA Unavailable CROW MIRELLA Unavailable CROW MIRELLA Unavailable CROW MIRELLA Unavailable CROW MIRELLA Unavailable CROW MIRELLA Unavailable CROW MIRELLA Unavailable CROW MIRELLA Unavailable CROW MIRELLA Unavailable JODY LACKEY Unavailable LANE, GERALDO Unavailable LANE, GERALDO Unavailable CROW MIRELLA Unavailable NO, LOCAL PHYSICIAN Unavailable Unavailable CROWMIRELLA Unavailable CROW MIRELLA Unavailable JODY LACKEY Unavailable CROWMIRELLA Unavailable JODY LACKEY Unavailable CROWMIRELLA Unavailable CROW MIRELLA Unavailable CROW MIRELLA Unavailable CROW, MIRELLA Unavailable CROW, MIRELLA Unavailable CROW MIRELLA Unavailable CROW MIRELLA Unavailable CROW, MIRELLA Unavailable CROW MIRELLA Unavailable CROW MIRELLA Unavailable CROW, MIRELLA Unavailable CROW, MIRELLA Unavailable CROW, MIRELLA Unavailable JODY LACKEY Unavailable CROW, MIRELLA Unavailable DARYA JODY Unavailable CROW, MIRELLA Unavailable CROW, MIRELLA Unavailable JODY LACKEY Unavailable CROW, MIRELLA Unavailable Migration, Doctor Unavailable Unavailable Migration, Doctor Unavailable Unavailable Migration, Doctor Unavailable Unavailable Migration, Doctor Unavailable Unavailable Migration, Doctor Unavailable Unavailable Migration, Doctor Unavailable Unavailable CROW, MIRELLA T Unavailable Unavailable CROW, MIRELLA Unavailable CROW, MIRELLA Unavailable CROW, MIRELLA Unavailable CROW, MIRELLA Unavailable CROW, MIRELLA Unavailable CROW, MIRELLA Unavailable CROW, MIRELLA Unavailable CROW, MIRELLA Unavailable CROW, MIRELLA Unavailable CROW, MIRELLA Unavailable CROW, MIRELLA Unavailable CROW, MIRELLA Unavailable CROW, MIRELLA Unavailable CROW, MIRELLA Unavailable CROW, MIRELLA Unavailable CROW, MIRELLA Unavailable CROW, MIRELLA Unavailable CROW, MIRELLA Unavailable CROW, MIRELLA Unavailable CROW, MIRELLA Unavailable CROW, MIRELLA Unavailable CROW, MIRELLA Unavailable CROW, MIRELLA Unavailable Migration, Doctor Unavailable Unavailable CROW, MIRELLA Unavailable CROW, MIRELLA Unavailable CROW, MIRELLA Unavailable CROW, MIRELLA Unavailable CROW, MIRELLA Unavailable CROW, MIRELLA Unavailable CROW, MIERLLA Unavailable CROW, MIRELLA Unavailable CROW, MIRELLA Unavailable MIRELLA MARIA Unavailable MIRELLA MARIA Unavailable MIRELLA MARIA Unavailable MIRELLA MARIA Unavailable MIRELLA MARIA Unavailable Unavailable Unavailable Unavailable Unavailable Unavailable Unavailable Allergies Normalized Allergy Reported Date of Reaction(s) Care Provider Facility Allergy Type classification allergen Allergy Onset MA (2 Unclassified NKANo Known 01-06-2009 - no information UN LISTED OTHER Not Available sources.) Allergies (03090) Medications Current Medications Medication Ingredient Drug Dose Dates Status Sig Sig Care Class(es) (Normalized) (Original) Provid er glipiZIDE glipiZIDE Sulfonylure 10 mg 10-05-19 Active no Gl ipiZIDE 10 no 10 mg oral Translation a 18 information mg Orally name tablet (2 s: [ Once a day 1 sources.) GlipiZIDE tablet 24h 10 mg, Sep, GlipiZIDE 30 day(s) 10 mg] Active 3 ml insulin Insulin 20 Active take 20 [IU] Tresiba no insulin degludec Analog [IU] by FlexTouch name degludec Translation subcutaneous 100 UNIT/ML 100 unt/ml s: [ injection Subcutaneous pen Tresiba once daily Once a day injector (2 FlexTouch Inject 20 sources.) 100 units 24h 90 UNIT/ML] days Active no Tresiba no Active no Tresiba no information FlexTouch information information FlexTouch name (1 source.) Active Completed/Discontinued Medications Medication Ingredient Drug Dose Dates Status Sig Sig Care Class(es) (Normalized) (Original) Provid er acetaminoph acetaminoph no 1000 Complete take 2 Acetaminoph e (no en 500 mg en information mg d tablets by n (Tylenol phone) oral tablet mouth every Extra (2 four hours Strength) sources.) as needed 500 Mg for pain Tablet 1,000 Mg ORAL Every 4HRS as needed for Pain-Mild ibuprofen ibuprofen Nonsteroida 200 mg Complete take 400-800 Ibu profen (no 200 mg oral l d mg by mouth (Advil) 200 phone) tablet (2 Anti-inflam three times Mg Tablet sources.) matory Drug daily as 400-800 Mg needed for ORAL Three pain Times A Day as needed for Pain-Mild no Pantoprazol no 40 mg Complete take 1 Pantoprazole (n o information e Sodium 40 information d tablet by Sodium 40 Mg phone) (2 Mg mouth once Tablet.dr 40 sources.) Tablet.dr daily Mg ORAL Daily LAST FILLED #30 18 Problems Active Problems Problem Normalized Date Last Normalized Normalized Provider Lizy nunes Classification Problem(s) Recorded Problem Problem Sta tus Duration Skin and Abscess Episodic Active JODY LACKEY Via Ezekiel ti subcutaneous Translations: [address] [facility] tissue [ CUTANEOUS [place] infections (3 ABSCESS OF (59406) sources.) HEAD [ANY PART, EXC] Other upper Abscess, Episodic Active no name no informat ion respiratory furuncle and disease (3 carbuncle of sources.) nose Genitourinary Attention to Chronic Active no name no in formation symptoms and other ill-defined artificial conditions (4 opening of sources.) urinary tract Other and Benign Episodic Active no name no informatio 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 Chronic pain Episodic Active MIRELLA Obando ity codes; Translations: [address] [place] [address] unclassified [ Other of [facility] (20 sources.) chronic pain] [place] ([address]) Other diseases Disorder of Episodic Active no name no in formation of kidney and kidney and ureters (2 ureter, sources.) unspecified Fluid and Electrolyte Episodic Active LOCAL NO Via [facility] electrolyte imbalance Hospital disorders (8 Translations: [place] sources.) [ (19846) HYPO-OSMOLALIT Y AND HYPONATREMIA] NEGATED Nicotine Chronic Active no name [facility] Via no dependence, [facility] information (4 cigarettes, Hospital - sources.) uncomplicated [place] (82048) Other nervous Other chronic Chronic Active MIRELLA [employer]ice[employer] pain [address] [place] [address] Center disorders (20 Translations: [facility] [place] sources.) [ - Other [place] ([address]243) chronic pain G89.29] Other Pain in left Episodic Active UNLISTED OTHER Not Available non-traumatic knee (14955) joint disorders (5 sources.) Other Pain in right Episodic Active UNLISTED OTHER Not Available non-traumatic hip (16690) joint disorders (5 sources.) Acute and Renal failure Chronic Active LOCAL NO Via [facility] unspecified syndrome Hospital renal failure [place] (2 sources.) (00540) Other diseases Renal Episodic Active LOCAL NO Via Ch[facility] sti of kidney and impairment Hospital ureters (1 [place] source.) (52955) Other upper Sinusitis Chronic Active LOCAL NO Via [facility] i respiratory Translations: Hospital infections (4 [ CHRONIC [place] sources.) SINUSITIS, (51546) UNSPECIFIED] Other upper Sinusitis Episodic Active LOCAL NO Via [facility] respiratory Hospital infections (2 [place] sources.) (98161) Past or Other Problems Problem Normalized Date Last Normalized Normalized Provider Fa cility Classification Problem(s) Recorded Problem Problem Sta tus Duration Other nervous Anesthesia of Episodic Completed no name Not Available system skin (29074) disorders (1 source.) Other injuries Corneal Episodic Completed OSITO ODGERS Not Available and conditions foreign body , (47099) due to external causes (1 source.) External Foreign body no information no information OSITO ODG ERS Not Available Injury - Other accidentally , (46712) specified and entering eye classifiable and adnexa (1 source.) External Home accidents no information no information OSITO O DGERS Not Available Injury - Place , (85862) of occurrence (1 source.) Unclassified Hyperemesis no information no information LOCAL NO Via [facility] (3 sources.) Hospital [place] (75419) Other bone Hypertrophy of Episodic Completed no name Not Av ailable disease and bone, other (57516) musculoskeleta site l deformities (1 source.) 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 name H Via no (current) use [facility] information (7 of oral Hospital - sources.) hypoglycemic [place] [facility] (62292) External Other external no information no information OSITO O DGERS Not Available Injury - cause status , (40145) Unspecified (1 source.) Other injuries Personal Episodic Completed no name Not Avai lable and conditions history of (73859) due to other (healed) external physical causes (1 injury and source.) trauma Procedures Procedure Normalized Procedure Procedure Result Performer Facility Date 04-12-2014 Drug screen, no information no name [facility] qualitate/multi [facility] (14228) 10-04-2017 Gluc bld gluc mntr dev no information no name [facility] cleared fda spec home [facility] (20032) 10-04-2017 Hemoglobin no information no name [facility] ealth glycosylated a1c [facility] (17535) 11-05-2013 Radiologic examination no information no name [facility] knee 1/2 views [facility] (37560) Immunizations The data below is from unstructured sources No Known Immunizations No Known Immunizations No Known Immunizations No Known Immunizations No Known Immunizations No Known Immunizations No Known Immunizations No Known Immunizations No Known Immunizations No Known Immunizations No Known Immunizations No Known Immunizations No Known Immunizations No Known Immunizations No Known Immunizations No Known Immunizations No Known Immunizations No Known Immunizations No Known Immunizations No Known Immunizations No Known Immunizations No Known Immunizations No Known Immunizations No Known Immunizations No Known Immunizations No Known Immunizations No Known Immunizations No Known Immunizations No Known Immunizations No Known Immunizations No Known Immunizations No Known Immunizations No Known Immunizations No Known Immunizations No Known Immunizations No Known Immunizations No Known Immunizations No Known Immunizations No Known Immunizations No Known Immunizations No Known Immunizations No Known Immunizations No Known Immunizations No Known Immunizations No Known Immunizations No Known Immunizations No Known Immunizations No Known Immunizations No Known Immunizations No Known Immunizations No Known Immunizations No Known Immunizations No Known Immunizations No Known Immunizations No Known Immunizations No Known Immunizations No Known Immunizations No Known Immunizations No Known Immunizations No Known Immunizations No Known Immunizations No Known Immunizations No Known Immunizations No Known Immunizations No Known Immunizations No Known Immunizations No Known Immunizations No Known Immunizations No Known Immunizations No Known Immunizations No Known Immunizations No Known Immunizations No Known Immunizations No Known Immunizations No Known Immunizations No Known Immunizations No Known Immunizations No Known Immunizations No Known Immunizations No Known Immunizations No Known Immunizations No Known Immunizations No Known Immunizations No Known Immunizations No Known Immunizations No Known Immunizations No Known Immunizations No Known Immunizations No Known Immunizations No Known Immunizations No Known Immunizations No Known Immunizations No Known Immunizations No Known Immunizations No Known Immunizations No Known Immunizations No Known Immunizations No Known Immunizations No Known Immunizations No Known Immunizations No Known Immunizations No Known Immunizations No Known Immunizations No Known Immunizations No Known Immunizations No Known Immunizations No Known Immunizations No Known Immunizations No Known Immunizations No Known Immunizations No Known Immunizations No Known Immunizations No Known Immunizations No Known Immunizations No Known Immunizations No Known Immunizations No Known Immunizations No Known Immunizations No Known Immunizations No Known Immunizations No Known Immunizations No Known Immunizations No Known Immunizations Results Test Name Value Interpretation Reference Range Date Time Fa cility (Normalized) (Normalized) (Medline Reference) glucose fingerstick (in house) on null GLUCOSE 410 (no code) [facility] FINGERSTICK (IN Center of HOUSE) [facility] (11093) GLUCOSE [id number] (no code) [facility] FINGERSTICK (IN Center of HOUSE) [facility] (98292) GLUCOSE 10/14/2017 (no code) [facility] FINGERSTICK (IN Center of HOUSE) [facility] (66708) a1c (in house) on null Hemoglobin 14 % (no code) 0 - 5.7 % [facility] A1c/Hemoglobin.t [facility] fraction (Bld) (05065) Hemoglobin 8.5 % (no code) 0 - 5.7 % [facility] A1c/Hemoglobin.t [facility] (d) (96629) A1C (IN HOUSE) 0856 (no code) [facility] (54782) A1C (IN HOUSE) 05/2019 (no code) [facility] (39807) laboratory on 2019-08-16 Albumin 4.3 g/dL (NEG) 3.4 - 5.4 g/dL 08-16-2019 PENDING LOCATION [Mass/Vol] 08: [facility] () ALP [Catalytic 157 U/L (H) 44 - 147 U/L 08-16-2019 PEND ING LOCATION activity/Vol] 08: [facility] () ALT [Catalytic 19 U/L (NEG) 4 - 40 U/L 08-16-2019 PENDIN G LOCATION activity/Vol] 08: [facility] () Amylase 31 U/L (NEG) 40 - 140 U/L 08-16-2019 PENDING L OCATION [Catalytic 08: [facility] (16215) activity/Vol] Anion gap 15 mmol/L (H) 3 - 11 mmol/L 08-16-2019 PENDING LOCATION [Moles/Vol] 08: [facility] () AST [Catalytic 15 U/L (NEG) 10 - 34 U/L 08-16-2019 PENDI NG LOCATION activity/Vol] 08: [facility] (00970) Basophils (Bld) 0.0 10*3/uL (NEG) 0 - 0.3 10*3/uL 08-16-2019 PENDING LOCATION [#/Vol] 08:0400 [facility] (21323) Basophils/100 1 % (NEG) 0.5 - 1 % 08-16-2019 PENDING LOCATION WBC (Bld) 08: [facility] (74458) Bilirubin 0.3 mg/dL (NEG) 0.1 - 1.2 mg/dL 08-16-2019 PENDIN G LOCATION [Mass/Vol] 08:0 [facility] (14388) Calcium 9.3 mg/dL (NEG) 8.5 - 10.2 mg/dL 08-16-2019 PENDI NG LOCATION [Mass/Vol] 08:0400 [facility] (30001) Calcium 9.1 mg/dL (NEG) 8.5 - 10.2 mg/dL 08-16-2019 [facility] [Mass/Vol] 08: [facility] (43243) Chloride 96 mmol/L (L) 95 - 106 mmol/L 08-16-2019 PENDIN G LOCATION [Moles/Vol] 08: [facility] (77239) CO2 [Moles/Vol] 19 mmol/L (L) 23 - 29 mmol/L 08-16-2019 P ENDING LOCATION 08: [facility] (04275) Creatinine 1.23 mg/dL (NEG) 08-16-2019 PENDING LOCATI ON [Mass/Vol] 08: [facility] (66376) Creatinine and > (no code) 08-16-2019 PENDING LOC ATION Glomerular 08: [facility] (32062) filtration rate.predicted panel - Serum, Plasma or Blood Eosinophils 0.2 10*3/uL (NEG) 0.05 - 0.5 08-16-2019 PENDING LOCATION (Bld) [#/Vol] 10*3/uL 08:0400 [facility] (55019) Eosinophils/100 3 % (NEG) 1 - 4 % 08-16-2019 PENDIN G LOCATION WBC (Bld) 08: [facility] (39533) Erythrocyte 12.5 % (NEG) 11.6 - 14.6 % 08-16-2019 [facility] LOCATION distribution 08: [facility] (14849) width (RBC) [Ratio] Glucose mg/dL (HH) 60 - 125 mg/dL 08-16-2019 PENDING LOCATION [Mass/Vol] 08:0 [facility] (70779) Glucose 749 mg/dL (HH) 60 - 125 mg/dL 08-16-2019 PENDING LOCATION [Mass/Vol] 08:0 [facility] (70157) Hematocrit (Bld) 45 % (NEG) 36.1 - 50.3 % 08-16-2019 P ENDING LOCATION [Volume 08: [facility] () fraction] Hemoglobin (Bld) 16.6 g/dL (NEG) 12.1 - 17.2 g/dL 08-16-2019 PENDING LOCATION [Mass/Vol] 08:0 [facility] (53818) Lipase 38 U/L (NEG) 10 - 73 U/L 08-16-2019 PENDING LO CATION [Catalytic 08: [facility] (00915) activity/Vol] Lymphocytes 2.8 10*3/uL (NEG) 0.9 - 2.9 08-16-2019 PENDING LOCATION (Bld) [#/Vol] 10*3/uL 08: [facility] (20856) Lymphocytes/100 35 % (NEG) 20 - 40 % 08-16-2019 [facility] LOCATION WBC (Bld) 08: [facility] (08636) Magnesium 2.0 mg/dL (NEG) 1.7 - 2.2 mg/dL 08-16-2019 [facility] LOCATION [Mass/Vol] 08:-0400 [facility] (87000) MCH (RBC) 30 pg (NEG) 27 - 31 pg 08-16-2019 PENDING LOC ATION [Entitic mass] 08:-0 [facility] (63052) MCHC (RBC) 37 g/dL (H) 32 - 36 g/dL 08-16-2019 PENDING LOCATION [Mass/Vol] 08:0 [facility] (99721) MCV (RBC) 83 (NEG) 08-16-2019 PENDING LOCATI ON [Entitic vol] 08:0 [facility] (61695) Monocytes (Bld) 0.4 10*3/uL (NEG) 0.3 - 0.9 08-16-2019 PEND ING LOCATION [#/Vol] 10*3/uL 08:-0400 [facility] (54910) Monocytes/100 5 % (NEG) 2 - 8 % 08-16-2019 PENDING LOCATION WBC (Bld) 08:0400 [facility] (40636) Neutrophils 4.7 10*3/uL (NEG) 1.7 - 7 10*3/uL 08-16-2019 [facility] LOCATION (Bld) [#/Vol] 08:-0400 [facility] (35368) Neutrophils/100 57 % (NEG) 40 - 60 % 08-16-2019 PENDIN G LOCATION WBC (Bld) 08:0 [facility] (88633) Platelet mean 11.8 (H) 08-16-2019 PENDING LOCA TION volume (Bld) 08:0400 [facility] (39448) [Entitic vol] Platelets (Bld) 214 10*3/uL (NEG) 150 - 450 08-16-2019 PEND ING LOCATION [#/Vol] 10*3/uL 08:-0400 [facility] (72537) Potassium 4.2 mmol/L (NEG) 3.7 - 5.2 mmol/L 08-16-2019 PEND ING LOCATION [Moles/Vol] 08:-0400 [facility] (72688) Protein 7.7 g/dL (NEG) 6.4 - 8.3 g/dL 08-16-2019 PENDING LOCATION [Mass/Vol] 08:-0400 [facility] (99862) RBC (Bld) 5.48 10*6/uL (NEG) 4.2 - 6.1 08-16-2019 PENDING L OCATION [#/Vol] 10*6/uL 08:-0400 [facility] (78099) Sodium 130 mmol/L (L) 135 - 145 mmol/L 08-16-2019 PEND ING LOCATION [Moles/Vol] 08:22-0400 [facility] (74493) Urea nitrogen 10 mg/dL (NEG) 7 - 20 mg/dL 08-16-2019 PENDI NG LOCATION [Mass/Vol] 08:-0400 [facility] (52515) Urea 8 mg/mg (no code) 6 - 22 mg/mg 08-16-2019 PENDING L OCATION nitrogen/Creatin 08:22-0400 [facility] (31937) ine [Mass ratio] WBC (Bld) 8.2 10*3/uL (NEG) 3.5 - 10.5 08-16-2019 PENDING L OCATION [#/Vol] 10*3/uL 08:22-0400 [facility] (38394) not yet categorized on 2019-02-26 Exp date 10/2019 (no code) [facility] (56040) Lot 10.7~12.4~[id number] (no code) [facility] (69085) not yet categorized on 2018-08-23 Exp date 05/2020 (no code) [facility] (48168) Lot 12.6~14~[id number] (no code) [facility] (58950) other on 2017-10-04 Exp date 10/14/2017 (no code) Not Available (34606) Exp date 05/2019 (no code) Not Available (77175) GLU FINGERSTICK 410 (no code) Not Available (68062) Lot 14~8.5~0856 (no code) Not Available (25500) Lot # [id number] (no code) Not Available (33374) venous blood hemoglobin measurement (mass/volume) on 2017-09-30 Hemoglobin (HGB) 14.3 g/dL (no code) 12 - 18 g/dL Via [facility] (20625) serum or plasma urea nitrogen/creatin ine mass ratio on 2017-09-30 BUN/Creatinine 18 mg/mg (no code) 10 - 20 mg/mg Via [facility] sti [facility] (96974) serum or plasma urea nitrogen measurement (mass/volume) on 2017-09-30 Urea nitrogen 15 mg/dL (no code) 7 - 20 mg/dL Via [facility] (81177) serum or plasma total bilirubin measurement (mass/volume) on 2017-09-30 Bilirubin 0.5 mg/dL (no code) 0.3 - 1.9 mg/dL Via [facility] (total) [facility] (45246) serum or plasma sodium measurement (moles/volume) on 2017-09-30 Sodium 137 mmol/L (no code) 135 - 147 mmol/L Via [facility] (84081) serum or plasma protein measurement (mass/volume) on 2017-09-30 Protein 5.7 g/dL (L) 6.4 - 8.3 g/dL Via [facility] (58553) serum or plasma potassium measurement (moles/volume) on 2017-09-30 Potassium 3.9 mmol/L (no code) 3.5 - 5.1 mmol/L Via [facility] (36286) serum or plasma glucose measurement (mass/volume) on 2017-09-30 Glucose 213 mg/dL (H) 60 - 125 mg/dL Via [facility] (17190) serum or plasma creatinine measurement with calculation of estimated glomerular filtration rate on 2017-09-30 eGFR (non-black) no information (no code) Via [facility] (17002) serum or plasma creatinine measurement (mass/volume) on 2017-09-30 Creatinine 0.83 mg/dL (no code) Via [facility] (61307) serum or plasma chloride measurement (moles/volume) on 2017-09-30 Chloride 108 mmol/L (H) 95 - 106 mmol/L Via [facility] (77245) serum or plasma calcium measurement (mass/volume) on 2017-09-30 Calcium 8.3 mg/dL (L) 9 - 11 mg/dL Via [facility] (69137) serum or plasma aspartate aminotransferase measurement (enzymatic activity/volume) on 2017-09-30 Aspartate 17 U/L (no code) 10 - 34 U/L Via [facility] aminotransferase [facility] (AST) [place] (07755) serum or plasma anion gap determination (moles/volume) on 2017-09-30 Anion gap 7 mmol/L (no code) 3 - 11 mmol/L Via [facility] (75139) serum or plasma alkaline phosphatase measurement (enzymatic activity/volume) on 2017-09-30 Alkaline 102 U/L (no code) 44 - 147 U/L Via [facility] phosphatase [facility] (ALP) [place] (51954) serum or plasma albumin measurement (mass/volume) on 2017-09-30 Albumin 3.6 g/dL (no code) 3.5 - 5.5 g/dL Via [facility] (40990) serum or plasma alanine aminotransferase measurement (enzymatic activity/volume) on 2017-09-30 Alanine 17 U/L (no code) 10 - 40 U/L Via [facility] aminotransferase [facility] (ALT) [place] (10710) carbon dioxide on 2017-09-30 CO2 22 mmol/L (no code) 23 - 29 mmol/L Via [facility] (84412) capillary blood glucose measurement by glucometer (mass/volume) on 2017-09-30 Glucose 195 mg/dL (H) 60 - 125 mg/dL Via [facility] (46695) blood neutrophils automated count (number/volume) on 2017-09-30 Neutrophils 3.7 10*3/uL (no code) 1.5 - 7.8 Via [facility] 10*3[facility] (50579) blood monocytes/100 leukocytes on 2017-09-30 Monocytes/100 6 % (no code) 2 - 8 % Via [facility] (20194) blood monocytes automated count (number/volume) on 2017-09-30 Monocytes 0.5 10*3/uL (no code) 0.2 - 1.1 Via [facility] 10*3/[facility] (65691) blood lymphocytes automated count (number/volume) on 2017-09-30 Lymphocytes 4.4 10*3/uL (H) 0.85 - 4.1 Via [facility] 10*3/uL [facility] (31463) blood leukocytes automated count (number/volume) on 2017-09-30 WBC (Leukocytes) 8.9 10*3/uL (no code) 3.8 - 10.8 Via [facility] 10*3/uL [facility] (60170) blood hematocrit (volume fraction) on 2017-09-30 Hematocrit (HCT) 40 % (no code) 39 - 51 % Via [facility] (34249) blood erythrocytes automated count (number/volume) on 2017-09-30 Erythrocytes 4.72 10*6/uL (no code) 4.2 - 6.1 Via [facility] (RBC) 10*6/uL [facility] (80739) automated erythrocyte mean corpuscular volume on 2017-09-30 MCV 85 fL (no code) 80 - 100 fL Via [facility] (33937) automated erythrocyte mean corpuscular hemoglobin concentration measurement (mass/volume) on 2017-09-30 MCHC 36 g/dL (no code) 32 - 36 g/dL Via [facility] (15979) automated erythrocyte mean corpuscular hemoglobin (mass per erythrocyte) on 2017-09-30 MCH 30 pg (no code) 27 - 31 pg Via [facility] (01370) automated erythrocyte distribution width ratio on 2017-09-30 RDW-CA 12.9 % (no code) 11 - 15 % Via [facility] (51715) automated eosinophil count on 2017-09-30 Eosinophils 0.2 10*3/uL (no code) 0.05 - 1.5 Via [facility] 10*3/uL [facility] (38988) automated blood platelet mean volume measurement on 2017-09-30 Platelet mean 12.3 fL (H) 7.2 - 11.7 fL Via [facility] ([facility]V) [facility] (31867) automated blood platelet count (count/volume) on 2017-09-30 Platelets 189 10*3/uL (no code) 150 - 400 Via [facility] 10*3/uL [facility] (05182) automated blood neutrophils/100 leukocytes on 2017-09-30 Neutrophils/100 42 % (no code) 40 - 60 % Via [facility] leukocytes [facility] (70359) automated blood lymphocytes/100 leukocytes on 2017-09-30 Lymphocytes/100 49 % (H) 20 - 40 % Via [facility] leukocytes [facility] (84504) automated blood eosinophils/100 leukocytes on 2017-09-30 Eosinophils/100 2 % (no code) 1 - 4 % Via [facility] leukocytes [facility] (62273) automated blood basophils/100 leukocytes on 2017-09-30 Basophils/100 0 % (no code) 0.5 - 1 % Via [facility] ([id number]) automated blood basophil count (count/volume) on 2017-09-30 Basophils 0.0 10*3/uL (no code) 0 - 0.2 10*3/uL Via [facility] (62996) urine urobilinogen measurement by automated test strip (mass/volume) on 2017-09-29 Urine, NORMAL (no code) Via [facility] urobilinogen [facility] (88134) urine total bilirubin detection by test strip on 2017-09-29 Urine, bilirubin Negative (no code) Via [facility] (48764) urine protein assay by test strip, semi-quantitativ e on 2017-09-29 Urine, protein Negative (no code) Via [facility] (62945) urine ph measurement by test strip on 2017-09-29 Urine, pH 7 [pH] (no code) 4.6 - 8 [pH] Via [facility] (45552) urine nitrite detection by test strip on 2017-09-29 Urine, nitrite Negative (no code) Via [facility] (29370) urine ketones detection by automated test strip on 2017-09-29 Urine, ketones Negative (no code) Via [facility] (45795) urine glucose detection by automated test strip on 2017-09-29 Urine, glucose 4+ (*) Via [facility] (12520) urine color determination on 2017-09-29 Urine, color YELLOW (no code) Via [facility] (67019) urine clarity determination on 2017-09-29 Urine, clarity CLEAR (no code) Via [facility] (64700) squamous epithelial cells detection in urine sediment by light microscopy on 2017-09-29 Urine, squamous NONE (no code) Via [facility] in sediment [place] (98846) specific gravity of urine by test strip on 2017-09-29 Urine, specific 1.005 (*) Via [facility] gravity [facility] (85162) serum or plasma amylase measurement (enzymatic activity/volume) on 2017-09-29 Amylase 31 U/L (no code) 23 - 85 U/L Via [facility] (26422) mucus detection in urine sediment by light microscopy on 2017-09-29 Urine, mucus Negative (no code) Via [facility] in [facility] sediment [place] (80154) magnesium on 2017-09-29 Magnesium 2.0 mg/dL (no code) 1.8 - 3.6 mg/dL Via [facility] (36793) lipase on 2017-09-29 Lipase 34 U/L (no code) 23 - 300 U/L Via [facility] (64530) leukocyte esterase on 2017-09-29 Urine, leukocyte Negative (no code) Via [facility] esterase [facility] (24411) erythrocytes detection in urine sediment by light microscopy on 2017-09-29 Urine, Negative (no code) [facility] erythrocytes Hospital presence [place] (27517) crystals detection in urine sediment by light microscopy on 2017-09-29 Urine, crystals NONE (no code) [facility] presence in Hospital sediment [place] (30271) complete urinalysis with reflex to culture on 2017-09-29 Complete NO (no code) Via [facility] urinalysis with Hospital reflex to [place] culture (72348) casts detection in urine sediment by light microscopy on 2017-09-29 Urine, casts in NONE (no code) [facility] sediment [facility] (87905) bacteria detection in urine sediment by light microscopy on 2017-09-29 Urine, bacteria TRACE (no code) [facility] in sediment [facility] (57571) automated urine sediment leukocyte count by microscopy (number/high power field) on 2017-09-29 Urine, NONE (no code) Via [facility] leukocytes in Hospital sedmiment [place] (93444) automated urine sediment erythrocyte count by microscopy (number/high power field) on 2017-09-29 Urine, NONE (no code) Via [facility] erythrocytes in Hospital sediment by area [place] (57530) urinalysis on 2017-06-03 Amphetamines Ql Negative (no code) [facility] ([facility]) [facility] (04117) Benzodiazepines Positive (A) [facility] Screen Ql (U) [facility] (70984) Benzoylecgonine Negative (no code) [facility] Ql (U) [facility] (28271) Creatinine mass 62.3 mg/dL (no code) [facility] (U) [facility] (38268) Opiates Ql (U) Negative (no code) [facility] (26520) Tetrahydrocannab Positive (A) [facility] inol Ql (U) [facility] (84440) other on 2017-06-03 Alphahydroxyalpr Negative (no code) [facility] azolam [facility] (54740) Alphahydroxymida Negative (no code) [facility] zolam [facility] (92213) Alphahydroxytria Negative (no code) [facility] zolam [facility] (52040) Aminoclonazepam Negative (no code) [facility] (47037) Hydroxyethylflur Negative (no code) [facility] azepam [facility] (56551) Lorazepam 874 (H) [facility] (75826) Marijuana 23 (H) [facility] Metabolite [facility] (13161) Nordiazepam Negative (no code) [facility] (98503) Oxazepam Negative (no code) [facility] (84607) Temazepam Negative (no code) [facility] (43486) 6 Acetylmorphine Negative (no code) [facility] (74411) Alcohol Negative (no code) [facility] Metabolites [facility] (56601) Amphetamine Negative (no code) [facility] (10019) Buprenorphine Negative (no code) [facility] (19767) COMMENT no information (no code) [facility] (94488) Desmethyltramado 2215 (H) [facility] l [facility] (00840) MDMA Negative (no code) [facility] (15795) medMATCH 6 CONSISTENT (no code) [facility] Acetylmorphine [facility] (43025) medMATCH Alcohol CONSISTENT (no code) [facility] Metab [facility] (34476) medMATCH CONSISTENT (no code) [facility] Aminoclonazepam [facility] (47882) medMATCH CONSISTENT (no code) [facility] Amphetamine [facility] (68262) medMATCH CONSISTENT (no code) [facility] Amphetamines [facility] (38414) medMATCH aOH CONSISTENT (no code) [facility] alprazolam [facility] (75405) medMATCH aOH CONSISTENT (no code) [facility] midazolam [facility] (18423) medMATCH aOH CONSISTENT (no code) [facility] triazolam [facility] (71054) medMATCH CONSISTENT (no code) [facility] Buprenorphine [facility] (61679) medMATCH Cocaine CONSISTENT (no code) [facility] Metab [facility] (64266) medMATCH CONSISTENT (no code) [facility] Desmethyltram [facility] (40443) medMATCH CONSISTENT (no code) [facility] Lorazepam [facility] (98728) medMATCH INCONSISTENT (no code) [facility] Marijuana Metab [facility] (89736) medMATCH MDMA CONSISTENT (no code) [facility] (74094) medMATCH CONSISTENT (no code) [facility] Methamphetamine [facility] (77560) medMATCH CONSISTENT (no code) [facility] Nordiazepam [facility] (34040) medMATCH [place],Et CONSISTENT (no code) [facility] flurazepam [facility] (25399) medMATCH Opiates CONSISTENT (no code) [facility] (09462) medMATCH CONSISTENT (no code) [facility] Oxazepam [facility] (65054) medMATCH CONSISTENT (no code) [facility] Oxycodone [facility] (99487) medMATCH CONSISTENT (no code) [facility] Temazepam [facility] (27486) medMATCH CONSISTENT (no code) [facility] Tramadol [facility] (63410) Methamphetamine Negative (no code) [facility] (91397) Oxidant Negative (no code) [facility] (15216) Oxycodone Negative (no code) [facility] (43334) Prescribed Drug Ativan(TM) (no code) [facility] 1 [facility] (81067) Prescribed Drug Tramadol (no code) [facility] 2 [facility] (65887) Tramadol 1759 (H) [facility] (04908) hematology on 2017-06-03 pH (Bld) 7.11 [pH] (no code) 7.38 - 7.42 [pH] [facility] (95377) other on 2016-05-25 Albumin/Globulin 2.1 {ratio} (no code) 1 - 2.5 {ratio} 7 Not Available [Mass ratio] 09:37-0500 (98819) Cholesterol in 47 mg/dL (H) 05-25-2016 Not Availab le VLDL [Mass/Vol] 09:37-0500 (43215) Erythrocyte 13.6 % (no code) 11.6 - 14.6 % 05-25-2016 Not Av ailable distribution 09:35-0500 (74760) width (RBC) [Ratio] Globulin (S) 2.2 g/dL (no code) 2 - 3.5 g/dL 05-25-2016 Not Av ailable [Mass/Vol] 09:37-0500 (51057) Immature 0.0 10*3/uL (no code) 0 - 0.2 10*3/uL 05-25-2016 Not Available granulocytes 09:35-0500 (12461) (Bld) [#/Vol] Immature 0 % (no code) 0 - 0.5 % 05-25-2016 Not Availabl e granulocytes/100 09:35-0500 (95602) WBC (Bld) MCHC (RBC) 33.0 g/dL (no code) 32 - 36 g/dL 05-25-2016 Not Avai lable [Mass/Vol] 09:35-0500 (60481) metabolic panel on 2016-05-25 Albumin 4.7 g/dL (no code) 3.4 - 5.4 g/dL 05-25-2016 Not Maria Luisa ilable [Mass/Vol] 09:37-0500 (80858) ALP [Catalytic 95 U/L (no code) 44 - 147 U/L 05-25-2016 Not Available activity/Vol] 09:37-0500 (04271) ALT [Catalytic 13 U/L (no code) 4 - 40 U/L 05-25-2016 Not Av ailable activity/Vol] 09: (43509) AST [Catalytic 14 U/L (no code) 10 - 34 U/L 05-25-2016 Not A vailable activity/Vol] 09: (78756) Bilirubin 0.3 mg/dL (no code) 0.1 - 1.2 mg/dL 05-25-2016 Not Av ailable [Mass/Vol] 09:37 (00659) Calcium 9.6 mg/dL (no code) 8.5 - 10.2 mg/dL 05-25-2016 Not A vailable [Mass/Vol] 09: (21320) Chloride 101 mmol/L (no code) 95 - 106 mmol/L 05-25-2016 Not A vailable [Moles/Vol] 09: (89948) CO2 [Moles/Vol] 25 mmol/L (no code) 23 - 29 mmol/L 05-25-2016 N ot Available 09: (51033) Creatinine 0.97 mg/dL (no code) 05-25-2016 Not Available [Mass/Vol] 09: (71311) GFR/1.73 sq M 114 (no code) 90 120 05-25-2016 Not Avai lable predicted among mL/min/{1.73_m2} mL/min/{1.73_m2} 09: (09963) blacks MDRD (S/P/Bld) [Vol rate/Area] GFR/1.73 sq M 99 (no code) 90 - 120 05-25-2016 Not Avai lable predicted among mL/min/{1.73_m2} mL/min/{1.73_m2} 09:370500 (46341) non-blacks MDRD (S/P/Bld) [Vol rate/Area] Glucose 117 mg/dL (H) 60 - 125 mg/dL 05-25-2016 Not Maria Luisa ilable [Mass/Vol] 09:37 (22119) Potassium 4.1 mmol/L (no code) 3.7 - 5.2 mmol/L 03-07-2017 Not Available [Moles/Vol] 09:37-0500 (64472) Protein 6.9 g/dL (no code) 6.4 - 8.3 g/dL 05-25-2016 Not Maria Luisa ilable [Mass/Vol] 09:37-0500 (06535) Sodium 140 mmol/L (no code) 135 - 145 mmol/L 05-25-2016 Not Available [Moles/Vol] 09:37-0500 (55845) Urea nitrogen 10 mg/dL (no code) 7 - 20 mg/dL 05-25-2016 Not A vailable [Mass/Vol] 09:37-0500 (38239) Urea 10 mg/mg (no code) 6 - 22 mg/mg 05-25-2016 Not Avail able nitrogen/Creatin 09:37-0500 (50631) ine [Mass ratio] hematology on 2016-05-25 Basophils (Bld) 0.0 10*3/uL (no code) 0 - 0.3 10*3/uL 05-25-2016 Not Available [#/Vol] 09:35-0500 (32109) Basophils/100 0 % (no code) 0.5 - 1 % 05-25-2016 Not Avai lable WBC (Bld) 09:35-0500 (02337) Eosinophils 0.1 10*3/uL (no code) 0.05 - 0.5 05-25-2016 Not Maria Luisa ilable (Bld) [#/Vol] 10*3/uL 09:35-0500 (57924) Eosinophils/100 1 % (no code) 1 - 4 % 05-25-2016 Not Av ailable WBC (Bld) 09:35-0500 (02039) Hematocrit (Bld) 46.7 % (no code) 36.1 - 50.3 % 05-25-2016 N ot Available [Volume 09:35-0500 (13822) fraction] Hemoglobin (Bld) 15.4 g/dL (no code) 12.1 - 17.2 g/dL 05-25-2016 Not Available [Mass/Vol] 09:35-0500 (63110) Lymphocytes 3.5 10*3/uL (H) 0.9 - 2.9 05-25-2016 Not Avai lable (Bld) [#/Vol] 10*3/uL 09:35-0500 (16328) Lymphocytes/100 35 % (no code) 20 - 40 % 05-25-2016 Not Av ailable WBC (Bld) 09:35-0500 (00363) MCH (RBC) 30.2 pg (no code) 27 - 31 pg 05-25-2016 Not Availab le [Entitic mass] 09:35-0500 (07060) MCV (RBC) 92 fL (no code) 80 - 100 fL 05-25-2016 Not Availa ble [Entitic vol] 09:35-0500 (14902) Monocytes (Bld) 0.5 10*3/uL (no code) 0.3 - 0.9 05-25-2016 Not Available [#/Vol] 10*3/uL 09:35-0500 (79201) Monocytes/100 5 % (no code) 2 - 8 % 05-25-2016 Not Avai lable WBC (Bld) 09:35-0500 (32714) Neutrophils 5.9 10*3/uL (no code) 1.7 - 7 10*3/uL 05-25-2016 No t Available (Bld) [#/Vol] 09:35-0500 (59345) Neutrophils/100 59 % (no code) 40 - 60 % 05-25-2016 Not Av ailable WBC (Bld) 09:35-0500 (83211) Platelets (Bld) 242 10*3/uL (no code) 150 - 450 05-25-2016 Not Available [#/Vol] 10*3/uL 09:35-0500 (58427) RBC (Bld) 5.10 10*6/uL (no code) 4.2 - 6.1 05-25-2016 Not Avail able [#/Vol] 10*6/uL 09:35-0500 (43449) WBC (Bld) 10.1 10*3/uL (no code) 3.5 - 10.5 05-25-2016 Not Avai lable [#/Vol] 10*3/uL 09:35-0500 (39518) cardiac on 2016-05-25 Cholesterol 174 mg/dL (no code) 180 - 200 mg/dL 05-25-2016 Not Available [Mass/Vol] 09:37-0500 (58730) Cholesterol in 34 mg/dL (L) 05-25-2016 Not Availab le HDL [Mass/Vol] 09:37-0500 (84860) Cholesterol in 93 mg/dL (no code) 0 - 100 mg/dL 05-25-2016 Not Available LDL [Mass/Vol] 09:37-0500 (30299) Triglyceride 234 mg/dL (H) 0 - 150 mg/dL 05-25-2016 Not A vailable [Mass/Vol] 09:37-0500 (25482) Vital Signs Vital Sign Value Interpretation Reference Date [facility] ([facility] (Normalized) Range BMI (Body Mass 28.54 kg/m2 (no code) 15 - 25 kg/m2 10-25-2017 [facility] Index) 16:00-0400 52551 [facility] (21871) BMI (Body Mass 26.48 kg/m2 (no code) 15 - 25 kg/m2 10-04-2017 [facility] Index) 16:00-0400 43937 [facility] (41928) Body height 172.72 cm (no code) cm 11-05-2013 [facility] 16:47-[address] [place] [address] (15786) Body height 172.72 cm (no code) cm 09-10-2013 [facility] 17:56-[id number] [place] [address] (23185) Body height 172.72 cm (no code) cm 08-10-2013 [facility] 17:34-0400 49795 [facility] (95440) Body height 172.72 cm (no code) cm 02-07-2013 [facility] 15:46-0500 80104 (Other Health Center Phone: of [facility] ) [place] (25525) Body height 172.72 cm (no code) cm 11-29-2012 [facility] 11:49-0400 58345 (Other Health Center Phone: of [facility] ) [place] (95515) Body height 172.72 cm (no code) cm 07-12-2012 [facility] 15:170400 [facility] (01400) Body 98.2 [degF] (no code) 97.8 - 99.0 10-25-2017 JODY HOOPER [facility] Temperature [degF] 16:00-0400 07900 Health Cent[facility] r of [facility] (65558) Body 98.3 [degF] (no code) 97.8 - 99.0 10-04-2017 JODY HOOPER [facility] Temperature [degF] 16:00-0400 91529 [facility] (48429) Body 98.7 [degF] (no code) 97.8 - 99.0 04-12-2014 [facility] Community Temperature [degF] 15:44-0500 23635 [facility] (92717) Body 97 [degF] (no code) 97.8 - 99.0 11-05-2013 [facility] temperature [degF] 16:47-0400 71316 [facility] (55528) Body 98.3 [degF] (no code) 97.8 - 99.0 09-10-2013 [facility] Community temperature [degF] 17:56-0400 93819 [facility] (00233) Body 96.8 [degF] (no code) 97.8 - 99.0 08-10-2013 [facility] Community temperature [degF] 17:34-0400 36228 [facility] (92657) Body 97.9 [degF] (no code) 97.8 - 99.0 02-07-2013 [facility] Community temperature [degF] 15:46-0500 63844 (Other Health Cent er Phone: of [facility] ) [place] (49846) Body 97.8 [degF] (no code) 97.8 - 99.0 11-29-2012 [facility] Community temperature [degF] 11:49-0400 80891 (Other Health Cent er Phone: of [facility] ) [place] (45555) Body 98.6 [degF] (no code) 97.8 - 99.0 07-12-2012 [facility] Community temperature [degF] 15:17-0400 [facility] (88992) Body weight 107.05 kg (no code) kg 04-12-2014 [facility] 15:44-0500 19711 [facility] (01062) Body weight 107.55 kg (no code) kg 11-05-2013 [facility] 16:47-0400 66743 [facility] (76190) Body weight 107.19 kg (no code) kg 09-10-2013 [facility] 17:56-0400 70632 [facility] (27095) Body weight 107.05 kg (no code) kg 08-10-2013 [facility] 17:34-[address] [place] [address] (96371) Body weight 104.06 kg (no code) kg 02-07-2013 [facility] 15:460500 55059 (Other Health Center Phone: of [facility] ) [place] (57762) Body weight 98.48 kg (no code) kg 11-29-2012 [facility] 11:490400 76952 (Other Health Center Phone: of [facility] ) [place] (03256) Body weight 95.66 kg (no code) kg 07-12-2012 Doctor Anya nazario 15: [facility] (19580) Height 172.72 cm (no code) cm 10-25-2017 [facility] 16:000400 36414 [facility] (89309) Height 172.72 cm (no code) cm 10-04-2017 [facility] 16:000400 [id number] [place] [address] (96769) Height 172.72 cm (no code) cm 04-12-2014 [facility]LLA CROW [facility] 15:44-0500 85701 [facility] (17279) Weight 85.14 kg (no code) kg 10-25-2017 [facility] 16:000400 [id number] [place] [address] (45382) Weight 79.02 kg (no code) kg 10-04-2017 JODY [facility] 16:00-0400 98287 [facility] (70013) Interventions No Information Plan of Treatment Normalized Care Care Detail Care Activity Date Care Provider F acility Activity ([facility]) Chronic Health no information 12-29-2017 MIRELLA MARIA [phone] [facility] ([id number]) Goals No Information Social History No Information Functional Status The data below is from unstructured sources Query Response Date Anam rded Comprehension Ability Understands Co ncepts September 29, 2017 4:45pm Mental Status No Information Encounters Encounter Normalized Encounter Encounter Diagnosis Care Provi bert Organization Date Type 08-23-2018 ([facility]) Chronic Health Type 2 diabetes MIRELLA MARIA ( no [facility] - Maintenance mellitus with phone) (no phone) 08-23-2018 hyperglycemia - 08-23-2018 02-26-2019 [facility] Type 2 diabetes MIRELLA MARIA (no [facility] mellitus with phone) (no phone) hyperglycemia 10-18-2017 Emergency department no information [facility] no organization name - patient visit Work Phone: 10-18-2017 09-29-2017 Emergency department no information no name no organization name patient visit [facility] Emergency department no information no name no organization name 06-05-2013 patient visit - 06-05-2013 [facility] Emergency department no information no name no organization name 06-03-2013 patient visit - 06-03-2013 02-06-2012 Emergency department no information no name no organization name - patient visit 02-06-2012 09-29-2017 Evaluation and Noncompliance with JUSTEN Antunze ork no organization name - management of treatment Phone: 09-30-2017 inpatient JUSTEN Vázquez k 01-25-2018 Patient encounter no information no name no or ganization name 10-25-2017 Patient encounter no information no name no or ganization name 10-18-2017 Patient encounter no information no name no or ganization name 10-04-2017 Patient encounter no information no name no or ganization name 09-29-2017 Patient encounter no information no name no or ganization name - 09-30-2017 08-09-2017 Patient encounter no information no name no or ganization name 06-03-2017 Patient encounter no information no name no or ganization name 03-24-2017 Patient encounter no information no name no or ganization name 01-27-2016 Patient encounter no information no name no or ganization name - 01-27-2016 [facility] Patient encounter no information no name no or ganization name 01-01-2016 07-17-2015 Patient encounter no information no name no or ganization name - 07-17-2015 02-26-2019 Patient encounter no information no name no or ganization name procedure 08-23-2018 Patient encounter no information no name no or ganization name procedure 08-01-2018 Patient encounter no information no name no or ganization name procedure 03-20-2019 Telephone encounter Type 2 diabetes MIRELLA MARIA (n o [facility] mellitus without phone) (no phone) complications 12-04-2018 Telephone encounter no information MIRELLA MARIA (no [facility] - phone) (no phone) 12-04-2018 - 12-04-2018 08-07-2018 Telephone encounter no information [facility]LL[facility] MAR[facility] - phone) (no phone) 08-07-2018 - 08-07-2018 04-15-2014 VISIT no information no name no organ ization name [facility] no information Encounter for other no name no organization name preprocedural examination Medical Equipment Equipment Code (if Equipment Original Equipment Identifier P rocedure Code (if Dates provided) Text (if provided) (if provided) provided) no information use with pre-filled no information (no no inform ation 12-29-2017 pens to inject named assigning medication authority) Payers No Information History general Narrative - Reported Note Type Note Facility History general Narrative - Reported Type Medical hypertension History Medical Hypothyroidism History Medical anxiety History Medical chronic pain (back) History Medical hx of prostatitis History Medical Diabetes type II History Surgical wart removal from anus. 2015 History Surgical Colonoscopy 12/2015 History Hospitaliz pneumonia 1994 at History Hospitaliz Left side of face sewn up-bottle to fac e. 1997 ation History Hospitaliz BS over 900 09/29/17- ation 09/30/17 History [facility] ([id number]) Summary Purpose eClinicalWorks SubmissioneClinicalWorks SubmissioneClinicalWorks SubmissioneClinicalWorks SubmissioneClinicalWorks SubmissioneClinicalWorks SubmissioneClinicalWorks SubmissioneClinicalWorks SubmissioneClinicalWorks SubmissioneClinicalWorks SubmissioneClinicalWorks SubmissioneClinicalWorks SubmissioneClinicalWorks SubmissioneClinicalWorks SubmissioneClinicalWorks SubmissioneClinicalWorks SubmissioneClinicalWorks SubmissioneClinicalWorks SubmissioneClinicalWorks SubmissioneClinicalWorks SubmissioneClinicalWorks SubmissioneClinicalWorks SubmissioneClinicalWorks SubmissioneClinicalWorks SubmissioneClinicalWorks Submission Advance Directives Directive Response Recor ded Date/Time Advance Directives No 6:30am Organ Donor No 07/17/15 6:30am Resuscitation Status Full Code 07/17/15 6:30am Directive Response Recor ded Date/Time Advance Directives No 9:42am Resuscitation Status Full Code 07/16/15 9:42am Directive Response Recor ded Date/Time Advance Directives No 12:03pm Directive Response Recor ded Date/Time Advance Directives No 3:07pm Health Care Power of Terrazzo Grinder No 08/09/17 3:07pm Organ Donor No 08/09/17 3:07pm Resuscitation Status Full Code 08/09/17 3:07pm Directive Response Recor ded Date/Time Advance Directives No 4:45pm Health Care Power of Terrazzo Grinder No 09/29/17 4:45pm Organ Donor No 09/29/17 4:45pm Resuscitation Status Full Code 09/29/17 4:45pm Directive Response Recor ded Date/Time Advance Directives No 9:16am Health Care Power of Terrazzo Grinder No 10/18/17 9:16am Organ Donor No 10/18/17 9:16am Resuscitation Status Full Code 10/18/17 9:16am Discharge Instructions Patient Instructions Physician Instructions New, Converted or Re-Newed RX: RX on Chart Plan of Care/Instructions/FU: 3 weeks Avila Activity as Tolerated: Yes Discharge Diet: Regular Diet Other Inst to Patient Follow up Appt: Make appointment for 3 week. Instructions: No strenuous activity. May shower in 24 hours, no tub bath or soaking. Use incentive spirometer at home as directed. No Smoking Keep area clean and dry. Symptoms to Report: Appetite Changes, Extremity Discoloration, Numbness/Tingling, Swelling Increased, Bleeding Excessive, Eyesight Changes, Pain Increased, Urine Color Change, Constipation(Persistent), Fever over 101 degree F, Pain/Pressure in chest, Urinating Difficulty, Cough Up/Vomit Blood, Heart Beat Irreg/Pounding, Pain/Pressure in jaw, Vaginal Bleeding Increase, Cramps in feet or legs, Lightheadedness, Pain/Pressure in shoulder, Diarrhea(Persistent), Memory Changes Suddenly, Questions/Concerns, Weight gain consecutive days, Dizziness/Fainting, Nausea/Vomiting, Shortness of Breath, Weight gain over 2 pounds If questions or concerns contact your physician Or seek help at emergency department. Care Plan Patient Instructions:: 3 weeks [place] No hospital discharge instructions.No hospital discharge instructions.No hospital discharge instruction information available.No hospital discharge instruction information available.No hospital discharge instruction information available.No hospital discharge instruction information available. Additional Source Comments This clinical document has been generated using [employer] software that has been certified by the Office of the National Coordinator for Health Information Technology (ONC 15.99.04.3023.[id number]) and the National Committee for [employer] (NCQA, as an eMeasure certified technology). FOR RECORDS PERTAINING TO PATIENTS WHO ARE OR HAVE BEEN ENROLLED IN A CHEMICAL D EPENDENCY/SUBSTANCE ABUSE PROGRAM, SOME INFORMATION MAY BE OMITTED. This clinica l summary was aggregated from multiple sources. Caution should be exercised in using it in the provision of clinical care. This summary normalizes information from multiple sources, and as a consequence, information in this document may ma terially change the coding, format and clinical context of patient data. In valentina tion, data may be omitted in some cases. CLINICAL DECISIONS SHOULD BE BASED ON T HE PRIMARY CLINICAL RECORDS. [employer] provides no warranty or guara ntee of the accuracy or completeness of information in this document.The followi ng information is based on time limited clinical information UNRECOGNIZED CONTENT PROVIDED BELOW FOR UNRECOGNIZED SECTION MEDICAL (GENERAL) HISTORY Type Description Date Medical History hypertension Medical History Hypothyroidism Medical History anxiety Medical History chronic pain (back) Medical History hx of prostatitis Medical History Diabetes type II Surgical History wart removal from anus. 2015 Surgical History Colonoscopy 12/2015 Hospitalization History pneumonia 1994 Hospitalization History Left side of face sewn up-bottle to face. 1997 Type Description Date Medical History hypertension Medical History Hypothyroidism Medical History anxiety Medical History chronic pain (back) Medical History hx of prostatitis Medical History Diabetes type II Surgical History wart removal from anus. 2016 Surgical History Colonoscopy 12/2015 Hospitalization History pneumonia 1994 Hospitalization History Left side of face sewn up-bottle to face. 1997 Hospitalization History BS over 900 09/29/17- 09/30/17 UNRECOGNIZED CONTENT PROVIDED BELOW FOR UNRECOGNIZED SECTION REASON FOR VISIT Hospital f/u -Via [facility]- Elevated BS 900. Is out of strips. He ran out [employer] week follow up, was in [facility] for spider bite to back of head. Domo Fulton RNRefill [id number]
--- OUTSIDE RECORDS SUMMARY | 2019-08-16 14:06 | XMS REPORT ---
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 Role Phone CROW MIRELLA Unavailable PROBLEMS Type Condition ICD9-CM Code OMS45-BL Code Onset Dates Condition S tatus SNOMED Code Problem Mood disorder F39 Active 445904 05 Problem Low back pain M54.5 Active 272922 005 Problem Acquired hypothyroidism E03.9 Active 224553253 Problem Diabetes type 2, uncontrolled E11.65 Active 209763468 Problem Diabetes type 2, controlled E11.9 Ac tive 84418950 Problem Controlled type 2 diabetes m ellitus without complication, without long- term current use of insulin E11.9 Active 503446854 Problem Uncontrolled type 2 diabetes mellitus with hyperglycemia E11.65 Active 763538834 Problem Hypertension, benign I10 Active 15649875 Problem Other chronic pain G89.29 Active 8 2191590 Problem Shoulder pain, right M25.511 Active 20068419 Problem Cervical radiculopathy M54.12 Active 98134923 Problem History of urethral stricture Z87.448 Active 022046744 Problem retirement current use of insulin Z79.4 Active 817789215 Problem Type 2 diabetes mellitus without complications E11 .9 Active 308512075 ALLERGIES No Information ENCOUNTERS Encounter Location Date Diagnosis [facility] [address] [facility] [id number] [address] [place] [address] Feb, Controlled type 2 diabetes m ellitus without complication, without long-term current use of insulin E11.9 [facility] [address] [facility] [id number] [address] [place] [address] 09 Feb, 2019 Uncontrolled type 2 diabetes mellitus with hyperglycemia E11.65 ; Other chronic pain G89.29 ; Pain in right shoulder M25.511 and Thoracic spine pain M54.6 [facility] [address] [facility] [id number] [address] [place] [address] Nov, [facility] [address] [id number] [address] [place] [address] Aug, Diabetes type 2, uncontrolle d E11.65 [facility] [address] [facility] [id number] [address] [place] [address] July, [facility] [address] [id number] [address] [place] [id number] July, Dental examination Z01.20 an d Caries K02.9 [facility] [address] [id number] [address] [place] [address] Jun, Controlled type 2 diabetes m ellitus without complication, without long-term current use of insulin E11.9 [facility] [address] [facility] [id number] [address] [place] [address] May, Controlled type 2 diabetes m ellitus without complication, without long-term current use of insulin E11.9 [facility] [address] [facility] [id number] [address] [place] [address] Apr, [facility] [address] [facility] [id number] [address] [place] [address] Mar, Controlled type 2 diabetes m ellitus without complication, without long-term current use of insulin E11.9 [facility] [address] [facility] [id number] [address] [place] [address] Jan, [facility] [address] [facility] [id number] [address] [place] [address] Dec, Diabetes type 2, uncontrolle d E11.65 [facility] [address] [facility] [id number] [address] [place] [address] Dec, Type 2 diabetes mellitus wit hout complications E11.9 ; 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 and Cervicalgia M54.2 [facility] [address] [facility] [id number] [address] [place] [address] Dec, Type 2 diabetes mellitus wit hout complications E11.9 ; 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 and Cervicalgia M54.2 [facility] [address] [id number] [address] [place] [address] Dec, Controlled type 2 diabetes m ellitus without complication, without long-term current use of insulin E11.9 [place] [address] [id number] [address] [place] [address] Nov, [place] [address] [id number] [address] [place] [address] Oct, Diabetes type 2, uncontrolle d E11.65 [place] [address] [id number] [address] [place] [address] Sep, Diabetes type 2, uncontrolle d E11.65 [place] [address] [id number] [address] [place] [address] Jun, Controlled type 2 diabetes m ellitus without complication, without long-term current use of insulin E11.9 [place] [address] [id number] [address] [place] [address] May, [place] [address] [id number] [address] [place] [id number] 16 May, 2017 Radiculopathy of cervical re gion M54.12 [place] [address] [id number] [address] [place] [address] 14 May, 2017 Controlled type 2 diabetes m ellitus without complication, without long-term current use of insulin E11.9 [place] [address] [id number] [address] [place] [address] May, [place] [address] [id number] [address] [place] [address] May, Controlled type 2 diabetes m ellitus without complication, without long-term current use of insulin E11.9 [place] [address] [id number] [address] [place] [address] May, Controlled type 2 diabetes m ellitus without complication, without long-term current use of insulin E11.9 [facility] [address] [id number] [address] [place] [address] May, Controlled type 2 diabetes m ellitus without complication, without long-term current use of insulin E11.9 [facility] [address] [id number] [address] [place] [address] Apr, [facility] [address] [id number] [address] [place] [address] Apr, Controlled type 2 diabetes m ellitus without complication, without long-term current use of insulin E11.9 [place] [address] [id number] [address] [place] [address] Apr, [place] [address] [id number] [address] [place] [address] Apr, Controlled type 2 diabetes m ellitus without complication, without long-term current use of insulin E11.9 [place] [address] [id number] [address] [place] [address] Mar, [place] [address] [id number] [address] [place] [address] Mar, Radiculopathy of cervical re gion M54.12 [place] [address] [id number] [address] [place] [address] Mar, Controlled type 2 diabetes m ellitus without complication, without long-term current use of insulin E11.9 [place] [address] [facility] [id number] [address] [place] [address] Feb, Cervical radiculopathy M54.1 2 ; Acute cystitis without hematuria N30.00 and History of urethral stricture Z87.448 [place] [address] [facility] [id number] [address] [place] [address] Feb, Controlled type 2 diabetes m ellitus without complication, without long-term current use of insulin E11.9 [place] [address] [facility] [id number] [address] [place] [address] Feb, [facility] [address] [id number] [address] [place] [address] Jan, Diabetes type 2, uncontrolle d E11.65 [facility] [address] [id number] [address] [place] [address] Jan, [facility] [address] [id number] [address] [place] [address] Jan, Controlled type 2 diabetes m ellitus without complication, without long-term current use of insulin E11.9 ; Chest wall pain R07.89 and Thoracic spine pain M54.6 [facility] [address] [id number] [address] [place] [address] Dec, [facility] [address] [id number] [address] [place] [address] Dec, [facility] [address] [id number] [address] [place] [address] Nov, [facility] [address] [id number] [address] [place] [address] Nov, [facility] [address] [id number] [address] [place] [address] Nov, Trichomonas exposure Z20.2 [facility] [address] [id number] [address] [place] [address] Oct, [facility] [address] [id number] [address] [place] [address] Oct, [facility] [address] [id number] [address] [place] [address] Oct, [facility] [address] [id number] [address] [place] [address] Oct, [facility] [address] [id number] [address] [place] [address] Sep, [facility] [address] [id number] [address] [place] [address] Sep, [facility] [address] [id number] [address] [place] [address], [place] [address] Aug, [facility] [address] [id number] [address] [place] [address], [place] [address] Aug, [facility] [address] [id number] [address] [place] [address], [place] [address] Aug, [facility] [address] [id number] [address] [place] [address], [place] [address] Aug, [facility] [address] [id number] [address] [place] [address], [place] [address] July, Diabetes type 2, controlled E11.9 [facility] [address] [id number] [address] [place] [address], [place] [address] July, [facility] [address] [id number] [address] [place] [address], [place] [phone] July, [facility] [address] [id number] [address] [place] [address], [place] [address] July, [facility] [address] [id number] [address] [place] [address], [place] [address] July, [facility] [address] [id number] [address] [place] [address], [place] [address] Jun, [facility] [address] [id number] [address] [place] [address], [place] [address] Jun, [facility] [address] [id number] [address] [place] [address], [place] [address] May, [facility] [address] [id number] [address] [place] [address], [place] [address] May, [facility] [address] [id number] [address] [place] [address], [place] [address] May, [facility] [address] [id number] [address] [place] [address], [place] [address] May, Controlled type 2 diabetes m ellitus without complication, without long-term current use of insulin E11.9 [facility] [address] [id number] [address] [place] [address] Apr, [facility] [address] [id number] [address] [place] [address] Apr, [facility] [address] [id number] [address] [place] [address] Mar, [facility] [address] [id number] [address] [place] [address] Mar, [facility] [address] [id number] [address] [place] [address] Feb, [facility] [address] [id number] [address] [place] [address] Feb, [facility] [address] [id number] [address] [place] [address] Jan, [facility] [address] [id number] [address] [place] [address] Jan, [facility] [address] [id number] [address] [place] [address] Jan, [facility] [address] [id number] [address] [place] [address] Dec, [facility] [address] [id number] [address] [place] [address] Dec, [facility] [address] [id number] [address] [place] [address] Dec, [facility] [address] [id number] [address] [place] [address] 29 Nov, 2015 Diabetes type 2, uncontrolle d E11.65 [facility] [address] [id number] [address] [place] [address] 14 Nov, 2015 [facility] [address] [id number] [address] [place] [address] Nov, [facility] [address] [id number] [address] [place] [address] Oct, [facility] [address] [id number] [address] [place] [address] Oct, [facility] [address] [id number] [address] [place] [address] Sep, Controlled type 2 diabetes m ellitus without complication, without long-term current use of insulin E11.9 [facility] [address] [id number] [address] [place] [address] Sep, [facility] [address] [id number] [address] [place] [address] Sep, [facility] [address] [id number] [address] [place] [address] Sep, [facility] [address] [id number] [address] [place] [address] Sep, [facility] [address] [id number] [address] [place] [address] Aug, Diabetes type 2, controlled E11.9 ; Anxiety F41.9 ; Carpal tunnel syndrome, left upper limb G56.02 and Carpal tunnel syndrome, right upper limb G56.01 [facility] [address] [id number] [address] [place] [address] Aug, Urethritis N34.2 [facility] [address] [id number] [address] [place] [address] Aug, [facility] [address] [id number] [address] [place] [address] July, Genital warts A63.0 [facility] [address] [id number] [address] [place] [address] July, [facility] [address] [id number] [address] [place] [address] July, Genital warts A63.0 [facility] [address] [id number] [address] [place] [address] July, Anxiety F41.9 [facility] [address] [id number] [address] [place] [address] Jun, Genital warts A63.0 [facility] [address] [id number] [address] [place] [address] Jun, Anxiety F41.9 [facility] [address] [id number] [address] [place] [address] May, Genital warts A63.0 and Diab etes type 2, uncontrolled E11.65 [facility] [address] [id number] [address] [place] [address] May, [facility] [address] [id number] [address] [place] [address] May, [facility] [address] [id number] [address] [place] [address] Apr, [facility] [address] [id number] [address] [place] [address] Apr, [facility] [address] [id number] [address] [place] [address] Apr, Diabetes type 2, controlled E11.9 [facility] [address] [id number] [address] [place] [address] Apr, Genital warts A63.0 [facility] [address] [id number] [address] [place] [address] Apr, [facility] [address] [id number] [address] [place] [address] Apr, Diabetes type 2, uncontrolle d E11.65 and Genital warts A63.0 [facility] [address] [id number] [address] [place] [address] Apr, [facility] [address] [facility] [id number] [address] [place] [address] Mar, [facility] [address] [facility] [id number] [address] [place] [address] Mar, [facility] [address] [facility] [id number] [address] [place] [address] Mar, Family history of diabetes m ellitus V18.0 and Weight loss R63.4 [facility] [address] [place] [id number] [place] [address] Mar, Genital warts A63.0 and Fami ly history of diabetes mellitus V18.0 [facility] [address] [facility] [id number] [place] [phone] Feb, [place] [address] [address] Jan, [facility] [address] [place] [id number] [place] [phone] Jan, Perianal venereal warts A63. 0 [facility] [address] [place] [id number] [address] [place] [address] Jan, Urethritis N34.2 and Anxiety F41.9 [facility] [address] [address] Jan, [facility] [address] [place] [id number] [place] [address] Jan, Urinary tract infection, sit e unspecified N39.0 [facility] [address] [facility] [id number] [address] [place] [address] Jan, [facility] [address] [place] [id number] [place] [address] Dec, [facility] [address] [place] [id number] [address] [place] [address] Dec, HPV (human papilloma virus) anogenital infection A63.0 ; Anxiety F41.9 and Gastroesophageal reflux disease without esophagitis K21.9 [facility] [address] [place] [id number] [address] [place] [address] Sep, Blood in stool 578.1 [facility] [address] [place] [id number] [address] [place] [address] Aug, Blood in stool 578.1 [facility] [address] [place] [id number] [address] [place] [address] Aug, Anxiety 300.00 and Blood in stool 578.1 [facility] [address] [place] [id number] [address] [place] [address] July, [place] [address] [place] [id number] [place] [address] July, Family history of diabetes m ellitus V18.0 [place] [address] [address] July, Family history of diabetes m ellitus V18.0 ; Family history of thyroid disease V18.19 ; Polyuria 788.42 ; Polydipsia 783.5 ; Alopecia 704.00 and Fatigue 780.79 [place] [address] [place] [id number] [address] [place] [address] Jun, [place] [address] [place] [id number] [address] [place] [address] Jun, [facility] [address] [place] [id number] [address] [place] [address] Mar, [facility] [address] [place] [id number] [address] [place] [address] Mar, [facility] [address] [place] [id number] [address] [place] [address] Mar, [facility] [address] [place] [id number] [address] [place] [address] Mar, [facility] [address] [id number] [address] [place] [address], [place] [address] Mar, [facility] [address] [id number] [address] [place] [address], [place] [address] Mar, [facility] [address] [id number] [address] [place] [address], [place] [address] Mar, [facility] [address] [id number] [address] [place] [address], [place] [address] Mar, [facility] [address] [id number] [address] [place] [address], [place] [address] Mar, [facility] [address] [id number] [address] [place] [address], [place] [address] Mar, [facility] [address] [id number] [address] [place] [address], [place] [address] Feb, [facility] [address] [id number] [address] [place] [address], [place] [address] Feb, [facility] [address] [id number] [address] [place] [address], [place] [address] Jan, [facility] [address] [id number] [address] [place] [address], [place] [address] Jan, [facility] [address] [id number] [address] [place] [address], [place] [id number] Jan, [facility] [address] [id number] [address] [place] [address], [place] [id number] Jan, [facility] [address] [id number] [address] [place] [address], [place] [id number] Dec, [facility] [address] [id number] [address] [place] [address], [place] [id number] Dec, [facility] [address] [id number] [address] [place] [address], [place] [id number] Nov, [facility] [address] [id number] [address] [place] [address], [place] [id number] Nov, [facility] [address] [id number] [facility] [id number] Oct, [facility] [address] [id number] [facility] [id number] Oct, [facility] [address] [id number] [facility] [id number] Oct, [facility] [address] [id number] [address] [place] [address], [place] [id number] Oct, [facility] [address] [id number] [facility] [id number] Oct, [facility] [address] [id number] [address] [place] [address], [place] [id number] Oct, [facility] [address] [id number] [address] [place] [address], [place] [id number] Oct, [facility] [address] [id number] [address] [place] [address], [place] [id number] Oct, [facility] [address] [id number] [address] [place] [address], [place] [id number] Sep, [facility] [address] [id number] [address] [place] [address], [place] [id number] Sep, [facility] [address] [id number] [address] [place] [address], [place] [id number] Sep, [facility] [address] [id number] [address] [place] [address], [place] [address] Sep, [facility] [address] [id number] [address] [place] [address], [place] [id number] Aug, [facility] [address] [id number] [address] [place] [address], [place] [id number] Aug, [facility] [address] [id number] [address] [place] [address], [place] [id number] Aug, [facility] [address] [id number] [address] [place] [address], [place] [id number] Aug, [facility] [address] [id number] [address] [place] [address], [place] [id number] July, [facility] [address] [id number] [address] [place] [address], [place] [id number] July, [facility] [address] [id number] [address] [place] [address], [place] [id number] July, [facility] [address] [id number] [address] [place] [address], [place] [id number] July, [facility] [address] [id number] [address] [place] [address], [place] [id number] July, [facility] [address] [id number] [address] [place] [address], [place] [id number] July, [facility] [address] [id number] [address] [place] [address], [place] [id number] Jun, [facility] [address] [id number] [address] [place] [address], [place] [id number] Jun, [facility] [address] [id number] [address] [place] [address], [place] [id number] Jun, [facility] [address] [id number] [address] [place] [address], [place] [id number] Jun, [facility] [address] [id number] [address] [place] [address], [place] [id number] Jun, [facility] [address] [id number] [address] [place] [address], [place] [id number] Jun, [facility] [address] [id number] [address] [place] [address], [place] [address] Jun, [facility] [address] [id number] [address] [place] [address], [place] [address] Jun, [facility] [address] [id number] [address] [place] [address], [place] [id number] May, [facility] [address] [id number] [address] [place] [address], [place] [address] May, [facility] [address] [id number] [address] [place] [address], [place] [address] May, [facility] [address] [id number] [address] [place] [address], [place] [id number] Apr, [facility] [address] [id number] [address] [place] [address], [place] [id number] Apr, [facility] [address] [id number] [address] [place] [address], [place] [id number] Apr, [facility] [address] [id number] [address] [place] [address], [place] [address] Apr, [facility] [address] [id number] [address] [place] [address], [place] [id number] Mar, [facility] [address] [id number] [address] [place] [address], [place] [id number] Mar, [facility] [address] [id number] [address] [place] [address], [place] [id number] Mar, [facility] [address] [id number] [address] [place] [address], [place] [id number] Mar, [facility] [address] [id number] [address] [place] [address], [place] [id number] Mar, [facility] [address] [id number] [address] [place] [address], [place] [id number] Mar, [facility] [address] [id number] [address] [place] [address], [place] [id number] Feb, [facility] [address] [id number] [address] [place] [address], [place] [id number] Feb, [facility] [address] [id number] [address] [place] [address], [place] [id number] Jan, [facility] [address] [id number] [address] [place] [address], [place] [id number] Jan, [facility] [address] [id number] [address] [place] [address], [place] [id number] Jan, [facility] [address] [id number] [address] [place] [address], [place] [id number] Jan, [facility] [address] [id number] [address] [place] [address], [place] [address] Jan, [facility] [address] [id number] [address] [place] [address], [place] [id number] Jan, [facility] [address] [id number] [address] [place] [address], [place] [id number] Jan, [facility] [address] [id number] [address] [place] [address], [place] [id number] Dec, [facility] [address] [id number] [address] [place] [address], [place] [id number] Dec, [facility] [address] [id number] [address] [place] [address], [place] [address] Nov, [facility] [address] [id number] [address] [place] [address], [place] [address] Nov, [facility] [address] [id number] [address] [place] [address], [place] [id number] Nov, [facility] [address] [id number] [address] [place] [address], [place] [id number] Oct, [facility] [address] [id number] [address] [place] [address], [place] [address] Oct, [facility] [address] [id number] [address] [place] [address], [place] [address] Oct, [facility] [address] [id number] [address] [place] [address], [place] [id number] Oct, [facility] [address] [id number] [address] [place] [address], [place] [id number] Sep, [facility] [address] [id number] [address] [place] [id number] Sep, [facility] [address] [id number] [address] [place] [id number] Aug, [facility] [address] [id number] [address] [place] [id number] Aug, [facility] [address] [id number] [address] [place] [id number] Aug, [facility] [address] [id number] [address] [place] [id number] Aug, [facility] [address] [id number] [address] [place] [id number] July, [facility] [address] [id number] [address] [place] [id number] July, [facility] [address] [id number] [address] [place] [id number] July, [facility] [address] [id number] [address] [place] [id number] July, [facility] [address] [id number] [address] [place] [id number] Jun, [facility] [address] [id number] [address] [place] [id number] Jun, [facility] [address] [id number] [address] [place] [id number] Feb, [facility] [address] [id number] [address] [place] [id number] Feb, [facility] [address] [id number] [address] [place] [id number] Mar, IMMUNIZATIONS No Known Immunizations SOCIAL HISTORY Never Assessed REASON FOR VISIT PLAN OF CARE VITAL SIGNS Height 68 in 2012-11-29 Weight 217.1 lbs 2012-11-29 Temperature 97.8 degrees Fahrenheit 2012-11-29 Heart Rate 64 bpm 2012-11-29 Respiratory Rate 16 2012-11-29 Blood pressure systolic 140 mmHg 2012-11-29 Blood pressure diastolic 88 mmHg 2012-11-29 MEDICATIONS Unknown Medications RESULTS No Results PROCEDURES [...]
--- OUTSIDE RECORDS SUMMARY | 2019-08-16 14:06 | XMS REPORT ---
Author Author Joseph MARIA Organization [facility] Address [address] [place] [address] Care Team Providers Care Flexo Operator Name Role Phone CROW MIRELLA Unavailable PROBLEMS Type Condition ICD9-CM Code PAX90-HC Code Onset Dates Condition S tatus SNOMED Code Problem Mood disorder F39 Active 305809 05 Problem Low back pain M54.5 Active 689914 005 Problem Acquired hypothyroidism E03.9 Active 750089630 Problem Diabetes type 2, uncontrolled E11.65 Active 352226269 Problem Diabetes type 2, controlled E11.9 Ac tive 54835802 Problem Controlled type 2 diabetes m ellitus without complication, without long- term current use of insulin E11.9 Active 717517872 Problem Uncontrolled type 2 diabetes mellitus with hyperglycemia E11.65 Active 216677701 Problem Hypertension, benign I10 Active 77395616 Problem Other chronic pain G89.29 Active 8 2390136 Problem Shoulder pain, right M25.511 Active 99226527 Problem Cervical radiculopathy M54.12 Active 62667081 Problem History of urethral stricture Z87.448 Active 719458990 Problem correction current use of insulin Z79.4 Active 444148728 Problem Type 2 diabetes mellitus without complications E11 .9 Active [id number] ALLERGIES No Information ENCOUNTERS Encounter Location Date Diagnosis [facility] [address] [id number] [address] [place] [id number] Feb, Controlled type 2 diabetes m ellitus without complication, without long-term current use of insulin E11.9 [facility] [address] [id number] [address] [place] [id number] 09 Feb, 2019 Uncontrolled type 2 diabetes mellitus with hyperglycemia E11.65 ; Other chronic pain G89.29 ; Pain in right shoulder M25.511 and Thoracic spine pain M54.6 [facility] [address] [id number] [address] [place] [phone] Nov, [facility] [address] [id number] [address] [place] [phone] Aug, Diabetes type 2, uncontrolle d E11.65 [facility] [address] [id number] [address] [place] [id number] July, [facility] [address] [id number] [address] [place] [id number] July, Dental examination Z01.20 an d Caries K02.9 [facility] [address] [id number] [address] [place] [phone] Jun, Controlled type 2 diabetes m ellitus without complication, without long-term current use of insulin E11.9 [facility] [address] [id number] [address] [place] [phone] May, Controlled type 2 diabetes m ellitus without complication, without long-term current use of insulin E11.9 [facility] [address] [id number] [address] [place] [phone] Apr, [facility] [address] [id number] [address] [place] [phone] Mar, Controlled type 2 diabetes m ellitus without complication, without long-term current use of insulin E11.9 [facility] [address] [id number] [address] [place] [phone] Jan, [facility] [address] [id number] [address] [place] [id number] Dec, Diabetes type 2, uncontrolle d E11.65 [facility] [address] [id number] [address] [place] [phone] Dec, Type 2 diabetes mellitus wit hout complications E11.9 ; oysterman current use of insulin Z79.4 and Cervicalgia M54.2 [facility] [address] [id number] [address] [place] [id number] Dec, Type 2 diabetes mellitus wit hout complications E11.9 ; oysterman current use of insulin Z79.4 and Cervicalgia M54.2 [facility] [address] [id number] [address] [place] [id number] Dec, Controlled type 2 diabetes m ellitus without complication, without long-term current use of insulin E11.9 [facility] [address] [id number] [address] [place] [phone] Nov, [place] [address] [id number] [address] [place] [phone] Oct, Diabetes type 2, uncontrolle d E11.65 [facility] [address] [id number] [address] [place] [id number] Sep, Diabetes type 2, uncontrolle d E11.65 [place] [address] [id number] [address] [place] [phone] Jun, Controlled type 2 diabetes m ellitus without complication, without long-term current use of insulin E11.9 [facility] [address] [id number] [address] [place] [phone] May, [place] [address] [id number] [address] [place] [id number] 16 May, 2017 Radiculopathy of cervical re gion M54.12 [place] [address] [id number] [address] [place] [phone] 14 May, 2017 Controlled type 2 diabetes m ellitus without complication, without long-term current use of insulin E11.9 [place] [address] [id number] [address] [place] [phone] May, [place] [address] [id number] [address] [place] [phone] May, Controlled type 2 diabetes m ellitus without complication, without long-term current use of insulin E11.9 [place] [address] [id number] [address] [place] [phone] May, Controlled type 2 diabetes m ellitus without complication, without long-term current use of insulin E11.9 [facility] [address] [id number] [address] [place] [phone] May, Controlled type 2 diabetes m ellitus without complication, without long-term current use of insulin E11.9 [facility] [address] [id number] [address] [place] [phone] Apr, [facility] [address] [id number] [address] [place] [phone] Apr, Controlled type 2 diabetes m ellitus without complication, without long-term current use of insulin E11.9 [place] [address] [id number] [address] [place] [phone] Apr, [place] [address] [id number] [address] [place] [phone] Apr, Controlled type 2 diabetes m ellitus without complication, without long-term current use of insulin E11.9 [place] [address] [id number] [address] [place] [phone] Mar, [place] [address] [id number] [address] [place] [phone] Mar, Radiculopathy of cervical re gion M54.12 [place] [address] [id number] [address] [place] [id number] Mar, Controlled type 2 diabetes m ellitus without complication, without long-term current use of insulin E11.9 [place] [address] [id number] [address] [place] [phone] Feb, Cervical radiculopathy M54.1 2 ; Acute cystitis without hematuria N30.00 and History of urethral stricture Z87.448 [place] [address] [id number] [address] [place] [phone] Feb, Controlled type 2 diabetes m ellitus without complication, without long-term current use of insulin E11.9 [place] [address] [id number] [address] [place] [phone] Feb, [facility] [address] [id number] [address] [place] [id number] Jan, Diabetes type 2, uncontrolle d E11.65 [facility] [address] [id number] [address] [place] [id number] Jan, [facility] [address] [id number] [address] [place] [phone] Jan, Controlled type 2 diabetes m ellitus without complication, without long-term current use of insulin E11.9 ; Chest wall pain R07.89 and Thoracic spine pain M54.6 [facility] [address] [id number] [address] [place] [phone] Dec, [facility] [address] [id number] [address] [place] [phone] Dec, [facility] [address] [id number] [address] [place] [phone] Nov, [facility] [address] [id number] [address] [place] [id number] Nov, [facility] [address] [id number] [address] [place] [id number] Nov, Trichomonas exposure Z20.2 [facility] [address] [id number] [address] [place] [phone] Oct, [facility] [address] [id number] [address] [place] [id number] Oct, [facility] [address] [id number] [address] [place] [phone] Oct, [facility] [address] [id number] [address] [place] [phone] Oct, [facility] [address] [id number] [address] [place] [phone] Sep, [facility] [address] [id number] [address] [place] [phone] Sep, [facility] [address] [id number] [address] [place] [address], [place] [address] Aug, [facility] [address] [id number] [address] [place] [address], [place] [address] Aug, [facility] [address] [id number] [address] [place] [address], [place] [address] Aug, [facility] [address] [id number] [address] [place] [address], [place] [address] Aug, [facility] [address] [id number] [address] [place] [address], [place] [address] July, Diabetes type 2, controlled E11.9 [facility] [address] [id number] [address] [place] [address], [place] [address] July, [facility] [address] [id number] [address] [place] [address], [place] [address] July, [facility] [address] [id number] [address] [place] [address], [place] [address] July, [facility] [address] [id number] [address] [place] [address], [place] [address] July, [facility] [address] [id number] [address] [place] [address], [place] [address] Jun, [facility] [address] [id number] [address] [place] [address], [place] [address] Jun, [facility] [address] [id number] [address] [place] [address], [place] [address] May, [facility] [address] [id number] [address] [place] [address], [place] [address] May, [facility] [address] [id number] [address] [place] [address], [place] [address] May, [facility] [address] [id number] [address] [place] [address], [place] [address] May, Controlled type 2 diabetes m ellitus without complication, without long-term current use of insulin E11.9 [facility] [address] [id number] [address] [place] [phone] Apr, [facility] [address] [id number] [address] [place] [id number] Apr, [facility] [address] [id number] [address] [place] [phone] Mar, [facility] [address] [id number] [address] [place] [id number] Mar, [facility] [address] [id number] [address] [place] [phone] Feb, [facility] [address] [id number] [address] [place] [phone] Feb, [facility] [address] [id number] [address] [place] [id number] Jan, [facility] [address] [id number] [address] [place] [phone] Jan, [facility] [address] [id number] [address] [place] [phone] Jan, [facility] [address] [id number] [address] [place] [id number] Dec, [facility] [address] [id number] [address] [place] [phone] Dec, [facility] [address] [id number] [address] [place] [id number] Dec, [facility] [address] [id number] [address] [place] [id number] 29 Nov, 2015 Diabetes type 2, uncontrolle d E11.65 [facility] [address] [id number] [address] [place] [id number] 14 Nov, 2015 [facility] [address] [id number] [address] [place] [phone] Nov, [facility] [address] [id number] [address] [place] [phone] Oct, [facility] [address] [id number] [address] [place] [id number] Oct, [facility] [address] [id number] [address] [place] [address] Sep, Controlled type 2 diabetes m ellitus without complication, without long-term current use of insulin E11.9 [facility] [address] [id number] [address] [place] [phone] Sep, [facility] [address] [id number] [address] [place] [id number] Sep, [facility] [address] [id number] [address] [place] [phone] Sep, [facility] [address] [id number] [address] [place] [id number] Sep, [facility] [address] [id number] [address] [place] [id number] Aug, Diabetes type 2, controlled E11.9 ; Anxiety F41.9 ; Carpal tunnel syndrome, left upper limb G56.02 and Carpal tunnel syndrome, right upper limb G56.01 [facility] [address] [id number] [address] [place] [address] Aug, Urethritis N34.2 [facility] [address] [id number] [address] [place] [id number] Aug, [facility] [address] [id number] [address] [place] [id number] July, Genital warts A63.0 [facility] [address] [id number] [address] [place] [id number] July, [facility] [address] [id number] [address] [place] [id number] July, Genital warts A63.0 [facility] [address] [id number] [address] [place] [phone] July, Anxiety F41.9 [facility] [address] [id number] [address] [place] [id number] Jun, Genital warts A63.0 [facility] [address] [id number] [address] [place] [phone] Jun, Anxiety F41.9 [facility] [address] [id number] [address] [place] [id number] May, Genital warts A63.0 and Diab etes type 2, uncontrolled E11.65 [facility] [address] [id number] [address] [place] [id number] May, [facility] [address] [id number] [address] [place] [id number] May, [facility] [address] [id number] [address] [place] [id number] Apr, [facility] [address] [id number] [address] [place] [phone] Apr, [facility] [address] [id number] [address] [place] [id number] Apr, Diabetes type 2, controlled E11.9 [facility] [address] [id number] [address] [place] [id number] Apr, Genital warts A63.0 [facility] [address] [id number] [address] [place] [address] Apr, [facility] [address] [id number] [address] [place] [id number] Apr, Diabetes type 2, uncontrolle d E11.65 and Genital warts A63.0 [facility] [address] [id number] [address] [place] [id number] Apr, [facility] [address] [id number] [address] [place] [id number] Mar, [facility] [address] [id number] [address] [place] [id number] Mar, [facility] [address] [id number] [address] [place] [id number] Mar, Family history of diabetes m ellitus V18.0 and Weight loss R63.4 [facility] [address] [place] [id number] [place] [address] Mar, Genital warts A63.0 and Fami ly history of diabetes mellitus V18.0 [facility] [address] [facility] [id number] [place] [phone] Feb, [place] [address] [address] Jan, [facility] [address] [place] [id number] [place] [address] Jan, Perianal venereal warts A63. 0 [facility] [address] [place] [id number] [address] [place] [id number] Jan, Urethritis N34.2 and Anxiety F41.9 [facility] [address] [address] Jan, [facility] [address] [place] [id number] [place] [phone] Jan, Urinary tract infection, sit e unspecified N39.0 [facility] [address] [id number] [address] [place] [phone] Jan, [facility] [address] [place] [id number] [place] [address] Dec, [facility] [address] [place] [id number] [address] [place] [id number] Dec, HPV (human papilloma virus) anogenital infection A63.0 ; Anxiety F41.9 and Gastroesophageal reflux disease without esophagitis K21.9 [facility] [address] [place] [id number] [address] [place] [address] Sep, Blood in stool 578.1 [facility] [address] [place] [id number] [address] [place] [id number] Aug, Blood in stool 578.1 [facility] [address] [place] [id number] [address] [place] [address] Aug, Anxiety 300.00 and Blood in stool 578.1 [facility] [address] [place] [id number] [address] [place] [phone] July, [place] [address] [place] [id number] [place] [address] July, Family history of diabetes m ellitus V18.0 [place] [address] [address] July, Family history of diabetes m ellitus V18.0 ; Family history of thyroid disease V18.19 ; Polyuria 788.42 ; Polydipsia 783.5 ; Alopecia 704.00 and Fatigue 780.79 [place] [address] [place] [id number] [address] [place] [address] Jun, [place] [address] [place] [id number] [address] [place] [phone] Jun, [facility] [address] [place] [id number] [address] [place] [address] Mar, [facility] [address] [place] [id number] [address] [place] [phone] Mar, [facility] [address] [place] [id number] [address] [place] [phone] Mar, [facility] [address] [place] [id number] [address] [place] [phone] Mar, [facility] [address] [id number] [address] [place] [address], [place] [address] Mar, [facility] [address] [id number] [address] [place] [address], [place] [address] Mar, [facility] [address] [id number] [address] [place] [address], [place] [address] Mar, [facility] [address] [id number] [address] [place] [address], [place] [address] Mar, [facility] [address] [id number] [address] [place] [address], [place] [address] Mar, [facility] [address] [id number] [address] [place] [address], [place] [address] Mar, [facility] [address] [id number] [address] [place] [address], [place] [address] Feb, [facility] [address] [id number] [address] [place] [address], [place] [address] Feb, [facility] [address] [id number] [address] [place] [address], [place] [address] Jan, [facility] [address] [id number] [address] [place] [address], [place] [address] Jan, [facility] [address] [id number] [address] [place] [address], [place] [address] Jan, [facility] [address] [id number] [address] [place] [address], [place] [address] Jan, [facility] [address] [id number] [address] [place] [address], [place] [address] Dec, [facility] [address] [id number] [address] [place] [address], [place] [address] Dec, [facility] [address] [id number] [address] [place] [address], [place] [address] Nov, [facility] [address] [id number] [address] [place] [address], [place] [address] Nov, [facility] [address] [id number] [facility] [place] [address] Oct, [facility] [address] [id number] [facility] [place] [address] Oct, [facility] [address] [id number] [facility] [place] [address] Oct, [facility] [address] [id number] [address] [place] [address], [place] [address] Oct, [facility] [address] [id number] [facility] [place] [address] Oct, [facility] [address] [id number] [address] [place] [address], [place] [address] Oct, [facility] [address] [id number] [address] [place] [address], [place] [address] Oct, [facility] [address] [id number] [address] [place] [address], [place] [address] Oct, [facility] [address] [id number] [address] [place] [address], [place] [address] Sep, [facility] [address] [id number] [address] [place] [address], [place] [address] Sep, [facility] [address] [id number] [address] [place] [address], [place] [address] Sep, [facility] [address] [id number] [address] [place] [address], [place] [address] Sep, [facility] [address] [id number] [address] [place] [address], [place] [address] Aug, [facility] [address] [id number] [address] [place] [address], [place] [address] Aug, [facility] [address] [id number] [address] [place] [address], [place] [address] Aug, [facility] [address] [id number] [address] [place] [address], [place] [address] Aug, [facility] [address] [id number] [address] [place] [address], [place] [address] July, [facility] [address] [id number] [address] [place] [address], [place] [address] July, [facility] [address] [id number] [address] [place] [address], [place] [address] July, [facility] [address] [id number] [address] [place] [address], [place] [address] July, [facility] [address] [id number] [address] [place] [address], [place] [address] July, [facility] [address] [id number] [address] [place] [address], [place] [address] July, [facility] [address] [id number] [address] [place] [address], [place] [address] Jun, [facility] [address] [id number] [address] [place] [address], [place] [address] Jun, [facility] [address] [id number] [address] [place] [address], [place] [address] Jun, [facility] [address] [id number] [address] [place] [address], [place] [address] Jun, [facility] [address] [id number] [address] [place] [address], [place] [address] Jun, [facility] [address] [id number] [address] [place] [address], [place] [address] Jun, [facility] [address] [id number] [address] [place] [address], [place] [address] Jun, [facility] [address] [id number] [address] [place] [address], [place] [address] Jun, [facility] [address] [id number] [address] [place] [address], [place] [address] May, [facility] [address] [id number] [address] [place] [address], [place] [address] May, [facility] [address] [id number] [address] [place] [address], [place] [address] May, [facility] [address] [id number] [address] [place] [address], [place] [address] Apr, [facility] [address] [id number] [address] [place] [address], [place] [address] Apr, [facility] [address] [id number] [address] [place] [address], [place] [address] Apr, [facility] [address] [id number] [address] [place] [address], [place] [address] Apr, [facility] [address] [id number] [address] [place] [address], [place] [address] Mar, [facility] [address] [id number] [address] [place] [address], [place] [address] Mar, [facility] [address] [id number] [address] [place] [address], [place] [address] Mar, [facility] [address] [id number] [address] [place] [address], [place] [address] Mar, [facility] [address] [id number] [address] [place] [address], [place] [address] Mar, [facility] [address] [id number] [address] [place] [address], [place] [address] Mar, [facility] [address] [id number] [address] [place] [address], [place] [address] Feb, [facility] [address] [id number] [address] [place] [address], [place] [address] Feb, [facility] [address] [id number] [address] [place] [address], [place] [address] Jan, [facility] [address] [id number] [address] [place] [address], [place] [address] Jan, [facility] [address] [id number] [address] [place] [address], [place] [address] Jan, [facility] [address] [id number] [address] [place] [address], [place] [address] Jan, [facility] [address] [id number] [address] [place] [address], [place] [address] Jan, [facility] [address] [id number] [address] [place] [address], [place] [address] Jan, [facility] [address] [id number] [address] [place] [address], [place] [address] Jan, [facility] [address] [id number] [address] [place] [address], [place] [address] Dec, [facility] [address] [id number] [address] [place] [address], [place] [address] Dec, [facility] [address] [id number] [address] [place] [address], [place] [address] Nov, [facility] [address] [id number] [address] [place] [address], [place] [address] Nov, [facility] [address] [id number] [address] [place] [address], [place] [address] Nov, [facility] [address] [id number] [address] [place] [address], [place] [address] Oct, [facility] [address] [id number] [address] [place] [address], [place] [address] Oct, [facility] [address] [id number] [address] [place] [address], [place] [address] Oct, [facility] [address] [id number] [address] [place] [address], [place] [address] Oct, [facility] [address] [id number] [address] [place] [address], [place] [address] Sep, [facility] [address] [id number] [address] [place] [id number] Sep, [facility] [address] [id number] [address] [place] [id number] Aug, [facility] [address] [id number] [address] [place] [id number] Aug, [facility] [address] [id number] [address] [place] [id number] Aug, [facility] [address] [id number] [address] [place] [id number] Aug, [facility] [address] [id number] [address] [place] [id number] July, [facility] [address] [id number] [address] [place] [phone] July, [facility] [address] [id number] [address] [place] [id number] July, [facility] [address] [id number] [address] [place] [id number] July, [facility] [address] [id number] [address] [place] [id number] Jun, [facility] [address] [id number] [address] [place] [phone] Jun, [facility] [address] [id number] [address] [place] [id number] Feb, [facility] [address] [id number] [address] [place] [phone] Feb, [facility] [address] [id number] [address] [place] [id number] Mar, IMMUNIZATIONS No Known Immunizations SOCIAL HISTORY [...]
--- OUTSIDE RECORDS SUMMARY | 2019-08-16 14:07 | XMS REPORT ---
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 Name Role Phone CROW MIRELLA Unavailable PROBLEMS Type Condition ICD9-CM Code [id number] Code Onset Dates Condition S tatus SNOMED Code Problem Mood disorder F39 Active 550038 05 Problem Low back pain M54.5 Active 202177 005 Problem Acquired hypothyroidism E03.9 Active 140451173 Problem Diabetes type 2, uncontrolled E11.65 Active 957425361 Problem Diabetes type 2, controlled E11.9 Ac tive 65246926 Problem Controlled type 2 diabetes m ellitus without complication, without long- term current use of insulin E11.9 Active 311016077 Problem Uncontrolled type 2 diabetes mellitus with hyperglycemia E11.65 Active 803438850 Problem Hypertension, benign I10 Active 92143632 Problem Other chronic pain G89.29 Active 8 8125293 Problem Shoulder pain, right M25.511 Active 80394673 Problem Cervical radiculopathy M54.12 Active 35137056 Problem History of urethral stricture Z87.448 Active 129882215 Problem group home current use of insulin Z79.4 Active 667466958 Problem Type 2 diabetes mellitus without complications E11 .9 Active 244098390 ALLERGIES No Information ENCOUNTERS Encounter Location Date Diagnosis [facility] [address] [facility] [id number] [address] [place] [phone] Feb, Controlled type 2 diabetes m ellitus without complication, without long-term current use of insulin E11.9 [facility] [address] [facility] [id number] [address] [place] [id number] 09 Feb, 2019 Uncontrolled type 2 diabetes mellitus with hyperglycemia E11.65 ; Other chronic pain G89.29 ; Pain in right shoulder M25.511 and Thoracic spine pain M54.6 [facility] [address] [facility] [id number] [address] [place] [id number] Nov, [facility] [address] [id number] [address] [place] [phone] Aug, Diabetes type 2, uncontrolle d E11.65 [facility] [address] [facility] [id number] [address] [place] [phone] July, [facility] [address] [id number] [address] [place] [phone] July, Dental examination Z01.20 an d Caries K02.9 [facility] [address] [id number] [address] [place] [phone] Jun, Controlled type 2 diabetes m ellitus without complication, without long-term current use of insulin E11.9 [facility] [address] [facility] [id number] [address] [place] [phone] May, Controlled type 2 diabetes m ellitus without complication, without long-term current use of insulin E11.9 [facility] [address] [facility] [id number] [address] [place] [phone] Apr, [facility] [address] [facility] [id number] [address] [place] [phone] Mar, Controlled type 2 diabetes m ellitus without complication, without long-term current use of insulin E11.9 [facility] [address] [facility] [id number] [address] [place] [phone] Jan, [facility] [address] [facility] [id number] [address] [place] [phone] Dec, Diabetes type 2, uncontrolle d E11.65 [facility] [address] [facility] [id number] [address] [place] [phone] Dec, Type 2 diabetes mellitus wit hout complications E11.9 ; intermission coordinator current use of insulin Z79.4 and Cervicalgia M54.2 [facility] [address] [facility] [id number] [address] [place] [phone] Dec, Type 2 diabetes mellitus wit hout complications E11.9 ; intermission coordinator current use of insulin Z79.4 and Cervicalgia M54.2 [facility] [address] [id number] [address] [place] [phone] Dec, Controlled type 2 diabetes m ellitus without complication, without long-term current use of insulin E11.9 [place] [address] [id number] [address] [place] [phone] Nov, [place] [address] [id number] [address] [place] [id number] Oct, Diabetes type 2, uncontrolle d E11.65 [place] [address] [id number] [address] [place] [id number] Sep, Diabetes type 2, uncontrolle d E11.65 [place] [address] [id number] [address] [place] [phone] Jun, Controlled type 2 diabetes m ellitus without complication, without long-term current use of insulin E11.9 [place] [address] [id number] [address] [place] [phone] May, [place] [address] [id number] [address] [place] [id number] 16 May, 2017 Radiculopathy of cervical re gion M54.12 [place] [address] [id number] [address] [place] [phone] 14 May, 2017 Controlled type 2 diabetes m ellitus without complication, without long-term current use of insulin E11.9 [place] [address] [id number] [address] [place] [phone] May, [place] [address] [id number] [address] [place] [phone] May, Controlled type 2 diabetes m ellitus without complication, without long-term current use of insulin E11.9 [place] [address] [id number] [address] [place] [phone] May, Controlled type 2 diabetes m ellitus without complication, without long-term current use of insulin E11.9 [facility] [address] [id number] [address] [place] [phone] May, Controlled type 2 diabetes m ellitus without complication, without long-term current use of insulin E11.9 [facility] [address] [id number] [address] [place] [phone] Apr, [facility] [address] [id number] [address] [place] [phone] Apr, Controlled type 2 diabetes m ellitus without complication, without long-term current use of insulin E11.9 [place] [address] [id number] [address] [place] [phone] Apr, [place] [address] [id number] [address] [place] [phone] Apr, Controlled type 2 diabetes m ellitus without complication, without long-term current use of insulin E11.9 [place] [address] [id number] [address] [place] [phone] Mar, [place] [address] [id number] [address] [place] [phone] Mar, Radiculopathy of cervical re gion M54.12 [place] [address] [id number] [address] [place] [phone] Mar, Controlled type 2 diabetes m ellitus without complication, without long-term current use of insulin E11.9 [place] [address] [facility] [id number] [address] [place] [phone] Feb, Cervical radiculopathy M54.1 2 ; Acute cystitis without hematuria N30.00 and History of urethral stricture Z87.448 [place] [address] [facility] [id number] [address] [place] [phone] Feb, Controlled type 2 diabetes m ellitus without complication, without long-term current use of insulin E11.9 [place] [address] [facility] [id number] [address] [place] [id number] Feb, [facility] [address] [id number] [address] [place] [phone] Jan, Diabetes type 2, uncontrolle d E11.65 [facility] [address] [id number] [address] [place] [phone] Jan, [facility] [address] [id number] [address] [place] [phone] Jan, Controlled type 2 diabetes m ellitus without complication, without long-term current use of insulin E11.9 ; Chest wall pain R07.89 and Thoracic spine pain M54.6 [facility] [address] [id number] [address] [place] [phone] Dec, [facility] [address] [id number] [address] [place] [phone] Dec, [facility] [address] [id number] [address] [place] [phone] Nov, [facility] [address] [id number] [address] [place] [phone] Nov, [facility] [address] [id number] [address] [place] [phone] Nov, Trichomonas exposure Z20.2 [facility] [address] [id number] [address] [place] [phone] Oct, [facility] [address] [id number] [address] [place] [phone] Oct, [facility] [address] [id number] [address] [place] [phone] Oct, [facility] [address] [id number] [address] [place] [phone] Oct, [facility] [address] [id number] [address] [place] [phone] Sep, [facility] [address] [id number] [address] [place] [phone] Sep, [facility] [address] [id number] [address] [place] [address], [place] [phone] Aug, [facility] [address] [id number] [address] [place] [address], [place] [address] Aug, [facility] [address] [id number] [address] [place] [address], [place] [address] Aug, [facility] [address] [id number] [address] [place] [address], [place] [phone] Aug, [facility] [address] [id number] [address] [place] [address], [place] [address] July, Diabetes type 2, controlled E11.9 [facility] [address] [id number] [address] [place] [address], [place] [address] July, [facility] [address] [id number] [address] [place] [address], [place] [phone] July, [facility] [address] [id number] [address] [place] [address], [place] [phone] July, [facility] [address] [id number] [address] [place] [address], [place] [phone] July, [facility] [address] [id number] [address] [place] [address], [place] [phone] Jun, [facility] [address] [id number] [address] [place] [address], [place] [phone] Jun, [facility] [address] [id number] [address] [place] [address], [place] [phone] May, [facility] [address] [id number] [address] [place] [address], [place] [address] May, [facility] [address] [id number] [address] [place] [address], [place] [phone] May, [facility] [address] [id number] [address] [place] [address], [place] [address] May, Controlled type 2 diabetes m ellitus without complication, without long-term current use of insulin E11.9 [facility] [address] [id number] [address] [place] [phone] Apr, [facility] [address] [id number] [address] [place] [phone] Apr, [facility] [address] [id number] [address] [place] [phone] Mar, [facility] [address] [id number] [address] [place] [phone] Mar, [facility] [address] [id number] [address] [place] [phone] Feb, [facility] [address] [id number] [address] [place] [phone] Feb, [facility] [address] [id number] [address] [place] [phone] Jan, [facility] [address] [id number] [address] [place] [phone] Jan, [facility] [address] [id number] [address] [place] [phone] Jan, [facility] [address] [id number] [address] [place] [phone] Dec, [facility] [address] [id number] [address] [place] [phone] Dec, [facility] [address] [id number] [address] [place] [phone] Dec, [facility] [address] [id number] [address] [place] [phone] 29 Nov, 2015 Diabetes type 2, uncontrolle d E11.65 [facility] [address] [id number] [address] [place] [phone] 14 Nov, 2015 [facility] [address] [id number] [address] [place] [phone] Nov, [facility] [address] [id number] [address] [place] [phone] Oct, [facility] [address] [id number] [address] [place] [phone] Oct, [facility] [address] [id number] [address] [place] [id number] Sep, Controlled type 2 diabetes m ellitus without complication, without long-term current use of insulin E11.9 [facility] [address] [id number] [address] [place] [phone] Sep, [facility] [address] [id number] [address] [place] [phone] Sep, [facility] [address] [id number] [address] [place] [phone] Sep, [facility] [address] [id number] [address] [place] [phone] Sep, [facility] [address] [id number] [address] [place] [id number] Aug, Diabetes type 2, controlled E11.9 ; Anxiety F41.9 ; Carpal tunnel syndrome, left upper limb G56.02 and Carpal tunnel syndrome, right upper limb G56.01 [facility] [address] [id number] [address] [place] [phone] Aug, Urethritis N34.2 [facility] [address] [id number] [address] [place] [phone] Aug, [facility] [address] [id number] [address] [place] [phone] July, Genital warts A63.0 [facility] [address] [id number] [address] [place] [phone] July, [facility] [address] [id number] [address] [place] [phone] July, Genital warts A63.0 [facility] [address] [id number] [address] [place] [phone] July, Anxiety F41.9 [facility] [address] [id number] [address] [place] [phone] Jun, Genital warts A63.0 [facility] [address] [id number] [address] [place] [phone] Jun, Anxiety F41.9 [facility] [address] [id number] [address] [place] [phone] May, Genital warts A63.0 and Diab etes type 2, uncontrolled E11.65 [facility] [address] [id number] [address] [place] [id number] May, [facility] [address] [id number] [address] [place] [phone] May, [facility] [address] [id number] [address] [place] [phone] Apr, [facility] [address] [id number] [address] [place] [phone] Apr, [facility] [address] [id number] [address] [place] [phone] Apr, Diabetes type 2, controlled E11.9 [facility] [address] [id number] [address] [place] [phone] Apr, Genital warts A63.0 [facility] [address] [id number] [address] [place] [phone] Apr, [facility] [address] [id number] [address] [place] [id number] Apr, Diabetes type 2, uncontrolle d E11.65 and Genital warts A63.0 [facility] [address] [id number] [address] [place] [phone] Apr, [facility] [address] [facility] [id number] [address] [place] [phone] Mar, [facility] [address] [facility] [id number] [address] [place] [phone] Mar, [facility] [address] [facility] [id number] [address] [place] [phone] Mar, Family history of diabetes m ellitus V18.0 and Weight loss R63.4 [facility] [address] [place] [id number] [place] [phone] Mar, Genital warts A63.0 and Fami ly history of diabetes mellitus V18.0 [facility] [address] [facility] [id number] [place] [phone] Feb, [place] [address] [phone] Jan, [facility] [address] [place] [id number] [place] [phone] Jan, Perianal venereal warts A63. 0 [facility] [address] [place] [id number] [address] [place] [phone] Jan, Urethritis N34.2 and Anxiety F41.9 [facility] [address] [phone] Jan, [facility] [address] [place] [id number] [place] [phone] Jan, Urinary tract infection, sit e unspecified N39.0 [facility] [address] [facility] [id number] [address] [place] [phone] Jan, [facility] [address] [place] [id number] [place] [phone] Dec, [facility] [address] [place] [id number] [address] [place] [phone] Dec, HPV (human papilloma virus) anogenital infection A63.0 ; Anxiety F41.9 and Gastroesophageal reflux disease without esophagitis K21.9 [facility] [address] [place] [id number] [address] [place] [phone] Sep, Blood in stool 578.1 [facility] [address] [place] [id number] [address] [place] [id number] Aug, Blood in stool 578.1 [facility] [address] [place] [id number] [address] [place] [phone] Aug, Anxiety 300.00 and Blood in stool 578.1 [facility] [address] [place] [id number] [address] [place] [id number] July, [place] [address] [place] [id number] [place] [address] July, Family history of diabetes m ellitus V18.0 [place] [address] [address] July, Family history of diabetes m ellitus V18.0 ; Family history of thyroid disease V18.19 ; Polyuria 788.42 ; Polydipsia 783.5 ; Alopecia 704.00 and Fatigue 780.79 [place] [address] [place] [id number] [address] [place] [phone] Jun, [place] [address] [place] [id number] [address] [place] [phone] Jun, [facility] [address] [place] [id number] [address] [place] [phone] Mar, [facility] [address] [place] [id number] [address] [place] [phone] Mar, [facility] [address] [place] [id number] [address] [place] [phone] Mar, [facility] [address] [place] [id number] [address] [place] [phone] Mar, [facility] [address] [id number] [address] [place] [address], [place] [address] Mar, [facility] [address] [id number] [address] [place] [address], [place] [phone] Mar, [facility] [address] [id number] [address] [place] [address], [place] [phone] Mar, [facility] [address] [id number] [address] [place] [address], [place] [address] Mar, [facility] [address] [id number] [address] [place] [address], [place] [address] Mar, [facility] [address] [id number] [address] [place] [address], [place] [address] Mar, [facility] [address] [id number] [address] [place] [address], [place] [address] Feb, [facility] [address] [id number] [address] [place] [address], [place] [phone] Feb, [facility] [address] [id number] [address] [place] [address], [place] [address] Jan, [facility] [address] [id number] [address] [place] [address], [place] [address] Jan, [facility] [address] [id number] [address] [place] [address], [place] [phone] Jan, [facility] [address] [id number] [address] [place] [address], [place] [address] Jan, [facility] [address] [id number] [address] [place] [address], [place] [id number] Dec, [facility] [address] [id number] [address] [place] [address], [place] [id number] Dec, [facility] [address] [id number] [address] [place] [address], [place] [id number] Nov, [facility] [address] [id number] [address] [place] [address], [place] [id number] Nov, [facility] [address] [id number] [address] [place] [id number] Oct, [facility] [address] [id number] [address] [place] [id number] Oct, [facility] [address] [id number] [address] [place] [id number] Oct, [facility] [address] [id number] [address] [place] [address], [place] [id number] Oct, [facility] [address] [id number] [address] [place] [address] Oct, [facility] [address] [id number] [address] [place] [address], [place] [id number] Oct, [facility] [address] [id number] [address] [place] [address], [place] [id number] Oct, [facility] [address] [id number] [address] [place] [address], [place] [id number] Oct, [facility] [address] [id number] [address] [place] [address], [place] [id number] Sep, [facility] [address] [id number] [address] [place] [address], [place] [id number] Sep, [facility] [facility] [address] [id number] [address] [place] [address], [place] [address] Sep, [facility] [address] [id number] [address] [place] [address], [place] [address] Sep, [facility] [address] [id number] [address] [place] [address], [place] [address] Aug, [facility] [address] [id number] [address] [place] [address], [place] [id number] Aug, [facility] [address] [id number] [address] [place] [address], [place] [address] Aug, [facility] [address] [id number] [address] [place] [address], [place] [id number] Aug, [facility] [address] [id number] [address] [place] [address], [place] [address] July, [facility] [address] [id number] [address] [place] [address], [place] [address] July, [facility] [address] [id number] [address] [place] [address], [place] [address] July, [facility] [address] [id number] [address] [place] [address], [place] [address] July, [facility] [address] [id number] [address] [place] [address], [place] [address] July, [facility] [address] [id number] [address] [place] [address], [place] [address] July, [facility] [address] [id number] [address] [place] [address], [place] [address] Jun, [facility] [address] [id number] [address] [place] [address], [place] [address] Jun, [facility] [address] [id number] [address] [place] [address], [place] [address] Jun, [facility] [address] [id number] [address] [place] [address], [place] [address] Jun, [facility] [address] [id number] [address] [place] [address], [place] [address] Jun, [facility] [address] [id number] [address] [place] [address], [place] [address] Jun, [facility] [address] [id number] [address] [place] [address], [place] [address] Jun, [facility] [address] [id number] [address] [place] [address], [place] [address] Jun, [facility] [address] [id number] [address] [place] [address], [place] [address] May, [facility] [address] [id number] [address] [place] [address], [place] [address] May, [facility] [address] [id number] [address] [place] [address], [place] [address] May, [facility] [address] [id number] [address] [place] [address], [place] [address] Apr, [facility] [address] [id number] [address] [place] [address], [place] [address] Apr, [facility] [address] [id number] [address] [place] [address], [place] [address] Apr, [facility] [address] [id number] [address] [place] [address], [place] [address] Apr, [facility] [address] [id number] [address] [place] [address], [place] [address] Mar, [facility] [address] [id number] [address] [place] [address], [place] [address] Mar, [facility] [address] [id number] [address] [place] [address], [place] [address] Mar, [facility] [address] [id number] [address] [place] [address], [place] [address] Mar, [facility] [address] [id number] [address] [place] [address], [place] [address] Mar, [facility] [address] [id number] [address] [place] [address], [place] [address] Mar, [facility] [address] [id number] [address] [place] [address], [place] [address] Feb, [facility] [address] [id number] [address] [place] [address], [place] [address] Feb, [facility] [address] [id number] [address] [place] [address], [place] [address] Jan, [facility] [address] [id number] [address] [place] [address], [place] [address] Jan, [facility] [address] [id number] [address] [place] [address], [place] [address] Jan, [facility] [address] [id number] [address] [place] [address], [place] [address] Jan, [facility] [address] [id number] [address] [place] [address], [place] [address] Jan, [facility] [address] [id number] [address] [place] [address], [place] [address] Jan, [facility] [address] [id number] [address] [place] [address], [place] [address] Jan, [facility] [address] [id number] [address] [place] [address], [place] [address] Dec, [facility] [address] [id number] [address] [place] [address], [place] [address] Dec, [facility] [address] [id number] [address] [place] [address], [place] [address] Nov, [facility] [address] [id number] [address] [place] [address], [place] [address] Nov, [facility] [address] [id number] [address] [place] [address], [place] [address] Nov, [facility] [address] [id number] [address] [place] [address], [place] [address] Oct, [facility] [address] [id number] [address] [place] [address], [place] [address] Oct, [facility] [address] [id number] [address] [place] [address], [place] [address] Oct, [facility] [address] [id number] [address] [place] [address], [place] [address] Oct, [facility] [address] [id number] [address] [place] [address], [place] [address] Sep, [facility] [address] [id number] [address] [place] [id number] Sep, [facility] [address] [id number] [address] [place] [id number] Aug, [facility] [address] [id number] [address] [place] [id number] Aug, [facility] [address] [id number] [address] [place] [id number] Aug, [facility] [address] [id number] [address] [place] [id number] Aug, [facility] [address] [id number] [address] [place] [id number] July, [facility] [address] [id number] [address] [place] [id number] July, [facility] [address] [id number] [address] [place] [id number] July, [facility] [address] [id number] [address] [place] [id number] July, [facility] [address] [id number] [address] [place] [id number] Jun, [facility] [address] [id number] [address] [place] [id number] Jun, [facility] [address] [id number] [address] [place] [id number] Feb, [facility] [address] [id number] [address] [place] [id number] Feb, [facility] [address] [id number] [address] [place] [id number] Mar, IMMUNIZATIONS No Known Immunizations SOCIAL HISTORY [...]
--- OUTSIDE RECORDS SUMMARY | 2019-08-16 14:07 | XMS REPORT ---
Author Author Joseph MARIA Organization [facility] Address [address] [place] [address] Care Team Providers Care Assistant Curator Name Role Phone CROW MIRELLA Unavailable PROBLEMS Type Condition ICD9-CM Code VGP72-WC Code Onset Dates Condition S tatus SNOMED Code Problem Mood disorder F39 Active 253449 05 Problem Low back pain M54.5 Active 614279 005 Problem Acquired hypothyroidism E03.9 Active 712302449 Problem Diabetes type 2, uncontrolled E11.65 Active 041347934 Problem Diabetes type 2, controlled E11.9 Ac tive 60557320 Problem Controlled type 2 diabetes m ellitus without complication, without long- term current use of insulin E11.9 Active 954396197 Problem Uncontrolled type 2 diabetes mellitus with hyperglycemia E11.65 Active 750905021 Problem Hypertension, benign I10 Active 51542727 Problem Other chronic pain G89.29 Active 8 6642459 Problem Shoulder pain, right M25.511 Active 90853003 Problem Cervical radiculopathy M54.12 Active 00935394 Problem History of urethral stricture Z87.448 Active 173390582 Problem 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 [address] [id number] [address] [place] [address] 31 Feb, 2019 Controlled type 2 diabetes m ellitus without complication, without long-term current use of insulin E11.9 [facility] [address] [facility] [id number] [address] [place] [address] 09 Feb, 2019 Uncontrolled type 2 diabetes mellitus with hyperglycemia E11.65 ; Other chronic pain G89.29 ; Pain in right shoulder M25.511 and Thoracic spine pain M54.6 [facility] [address] [facility] [id number] [address] [place] [address] Nov, [facility] [address] [id number] [address] [place] [address] Aug, Diabetes type 2, uncontrolle d E11.65 [facility] [address] [facility] [id number] [address] [place] [address] July, [facility] [address] [id number] [address] [place] [id number] July, Dental examination Z01.20 an d Caries K02.9 [facility] [address] [id number] [address] [place] [address] Jun, Controlled type 2 diabetes m ellitus without complication, without long-term current use of insulin E11.9 [facility] [address] [facility] [id number] [address] [place] [address] May, Controlled type 2 diabetes m ellitus without complication, without long-term current use of insulin E11.9 [facility] [address] [facility] [id number] [address] [place] [address] Apr, [facility] [address] [facility] [id number] [address] [place] [address] Mar, Controlled type 2 diabetes m ellitus without complication, without long-term current use of insulin E11.9 [facility] [address] [facility] [id number] [address] [place] [phone] Jan, [facility] [address] [facility] [id number] [address] [place] [address] Dec, Diabetes type 2, uncontrolle d E11.65 [facility] [address] 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 [address] 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 [address] [id number] [address] [place] [address] Dec, Controlled type 2 diabetes m ellitus without complication, without long-term current use of insulin E11.9 [place] [address] [id number] [address] [place] [address] Nov, [place] [address] [id number] [address] [place] [address] Oct, Diabetes type 2, uncontrolle d E11.65 [place] [address] [id number] [address] [place] [address] Sep, Diabetes type 2, uncontrolle d E11.65 [place] [address] [id number] [address] [place] [address] Jun, Controlled type 2 diabetes m ellitus without complication, without long-term current use of insulin E11.9 [place] [address] [id number] [address] [place] [address] May, [place] [address] [id number] [address] [place] [address] 16 May, 2017 Radiculopathy of cervical re gion M54.12 [place] [address] [id number] [address] [place] [address] 14 May, 2017 Controlled type 2 diabetes m ellitus without complication, without long-term current use of insulin E11.9 [place] [address] [id number] [address] [place] [address] May, [place] [address] [id number] [address] [place] [phone] May, Controlled type 2 diabetes m ellitus without complication, without long-term current use of insulin E11.9 [place] [address] [id number] [address] [place] [address] May, Controlled type 2 diabetes m ellitus without complication, without long-term current use of insulin E11.9 [facility] [address] [id number] [address] [place] [phone] May, Controlled type 2 diabetes m ellitus without complication, without long-term current use of insulin E11.9 [facility] [address] [id number] [address] [place] [address] Apr, [facility] [address] [id number] [address] [place] [address] Apr, Controlled type 2 diabetes m ellitus without complication, without long-term current use of insulin E11.9 [place] [address] [id number] [address] [place] [address] Apr, [place] [address] [id number] [address] [place] [address] Apr, Controlled type 2 diabetes m ellitus without complication, without long-term current use of insulin E11.9 [place] [address] [id number] [address] [place] [address] Mar, [place] [address] [id number] [address] [place] [address] Mar, Radiculopathy of cervical re gion M54.12 [place] [address] [id number] [address] [place] [address] Mar, Controlled type 2 diabetes m ellitus without complication, without long-term current use of insulin E11.9 [place] [address] [facility] [id number] [address] [place] [address] Feb, Cervical radiculopathy M54.1 2 ; Acute cystitis without hematuria N30.00 and History of urethral stricture Z87.448 [place] [address] [facility] [id number] [address] [place] [address] Feb, Controlled type 2 diabetes m ellitus without complication, without long-term current use of insulin E11.9 [place] [address] [facility] [id number] [address] [place] [address] Feb, [facility] [address] [id number] [address] [place] [address] Jan, Diabetes type 2, uncontrolle d E11.65 [facility] [address] [id number] [address] [place] [address] Jan, [facility] [address] [id number] [address] [place] [address] Jan, Controlled type 2 diabetes m ellitus without complication, without long-term current use of insulin E11.9 ; Chest wall pain R07.89 and Thoracic spine pain M54.6 [facility] [address] [id number] [address] [place] [address] Dec, [facility] [address] [id number] [address] [place] [address] Dec, [facility] [address] [id number] [address] [place] [address] Nov, [facility] [address] [id number] [address] [place] [phone] Nov, [facility] [address] [id number] [address] [place] [address] Nov, Trichomonas exposure Z20.2 [facility] [address] [id number] [address] [place] [address] Oct, [facility] [address] [id number] [address] [place] [address] Oct, [facility] [address] [id number] [address] [place] [address] Oct, [facility] [address] [id number] [address] [place] [address] Oct, [facility] [address] [id number] [address] [place] [address] Sep, [facility] [address] [id number] [address] [place] [address] Sep, [facility] [address] [id number] [address] [place] [address], [place] [address] Aug, [facility] [address] [id number] [address] [place] [address], [place] [address] Aug, [facility] [address] [id number] [address] [place] [address], [place] [address] Aug, [facility] [address] [id number] [address] [place] [address], [place] [address] Aug, [facility] [address] [id number] [address] [place] [address], [place] [address] July, Diabetes type 2, controlled E11.9 [facility] [address] [id number] [address] [place] [address], [place] [address] July, [facility] [address] [id number] [address] [place] [address], [place] [address] July, [facility] [address] [id number] [address] [place] [address], [place] [address] July, [facility] [address] [id number] [address] [place] [address], [place] [address] July, [facility] [address] [id number] [address] [place] [address], [place] [address] Jun, [facility] [address] [id number] [address] [place] [address], [place] [address] Jun, [facility] [address] [id number] [address] [place] [address], [place] [address] May, [facility] [address] [id number] [address] [place] [address], [place] [address] May, [facility] [address] [id number] [address] [place] [address], [place] [address] May, [facility] [address] [id number] [address] [place] [address], [place] [address] May, Controlled type 2 diabetes m ellitus without complication, without long-term current use of insulin E11.9 [facility] [address] [id number] [address] [place] [address] Apr, [facility] [address] [id number] [address] [place] [address] Apr, [facility] [address] [id number] [address] [place] [address] Mar, [facility] [address] [id number] [address] [place] [address] Mar, [facility] [address] [id number] [address] [place] [address] Feb, [facility] [address] [id number] [address] [place] [address] Feb, [facility] [address] [id number] [address] [place] [address] Jan, [facility] [address] [id number] [address] [place] [address] Jan, [facility] [address] [id number] [address] [place] [address] Jan, [facility] [address] [id number] [address] [place] [address] Dec, [facility] [address] [id number] [address] [place] [address] Dec, [facility] [address] [id number] [address] [place] [address] Dec, [facility] [address] [id number] [address] [place] [address] 29 Nov, 2015 Diabetes type 2, [address] d E[address].65 [facility] [address] [id number] [address] [place] [address] 14 Nov, 2015 [facility] [address] [id number] [address] [place] [address] Nov, [facility] [address] [id number] [address] [place] [address] Oct, [facility] [address] [id number] [address] [place] [address] Oct, [facility] [address] [id number] [address] [place] [address] Sep, Controlled type 2 diabetes m ellitus without complication, without long-term current use of insulin E11.9 [facility] [address] [id number] [address] [place] [address] Sep, [facility] [address] [id number] [address] [place] [address] Sep, [facility] [address] [id number] [address] [place] [address] Sep, [facility] [address] [id number] [address] [place] [address] Sep, [facility] [address] [id number] [address] [place] [address] Aug, Diabetes type 2, controlled E11.9 ; Anxiety F41.9 ; Carpal tunnel syndrome, left upper limb G56.02 and Carpal tunnel syndrome, right upper limb G56.01 [facility] [address] [id number] [address] [place] [address] Aug, Urethritis N34.2 [facility] [address] [id number] [address] [place] [address] Aug, [facility] [address] [id number] [address] [place] [address] July, Genital warts A63.0 [facility] [address] [id number] [address] [place] [address] July, [facility] [address] [id number] [address] [place] [address] July, Genital warts A63.0 [facility] [address] [id number] [address] [place] [address] July, Anxiety F41.9 [facility] [address] [id number] [address] [place] [address] Jun, Genital warts A63.0 [facility] [address] [id number] [address] [place] [address] Jun, Anxiety F41.9 [facility] [address] [id number] [address] [place] [address] May, Genital warts A63.0 and Diab etes type [address], [address] [facility] [address] [id number] [address] [place] [address] May, [facility] [address] [id number] [address] [place] [address] May, [facility] [address] [id number] [address] [place] [address] Apr, [facility] [address] [id number] [address] [place] [address] Apr, [facility] [address] [id number] [address] [place] [address] Apr, Diabetes type 2, controlled E11.9 [facility] [address] [id number] [address] [place] [address] Apr, Genital warts A63.0 [facility] [address] [id number] [address] [place] [address] Apr, [facility] [address] [id number] [address] [place] [address] Apr, Diabetes type 2, uncontrolle d E11.65 and Genital warts A63.0 [facility] [address] [id number] [address] [place] [address] Apr, [facility] [address] [facility] [id number] [address] [place] [address] Mar, [facility] [address] [facility] [id number] [address] [place] [address] Mar, [facility] [address] [facility] [id number] [address] [place] [address] Mar, Family history of diabetes m ellitus V18.[address] [facility] [address] [place] [id number] [place] [address] Mar, Genital warts A63.0 and Fami ly history of diabetes mellitus V18.0 [facility] [address] [facility] [id number] [place] [address] Feb, [place] [address] [address] Jan, [facility] [address] [place] [id number] [place] [address] Jan, Perianal venereal warts A63. 0 [facility] [address] [place] [id number] [address] [place] [address] Jan, Urethritis N34.[address] [facility] [address] [address] Jan, [facility] [address] [place] [id number] [place] [address] Jan, Urinary tract infection, sit e unspecified N39.0 [facility] [address] [facility] [id number] [address] [place] [address] Jan, [facility] [address] [place] [id number] [place] [address] Dec, [facility] [address] [place] [id number] [address] [place] [phone] Dec, HPV (human papilloma virus) anogenital infection A63.0 ; Anxiety F41.9 and Gastroesophageal reflux disease without esophagitis K21.9 [facility] [address] [place] [id number] [address] [place] [address] Sep, Blood in stool 578.1 [facility] [address] [place] [id number] [address] [place] [address] Aug, Blood in stool 578.1 [facility] [address] [place] [id number] [address] [place] [address] Aug, Anxiety 300.00 and Blood in stool 578.1 [facility] [address] [place] [id number] [address] [place] [address] July, [place] [address] [place] [id number] [place] [address] July, Family history of diabetes m ellitus V18.0 [place] [address] [address] July, Family history of diabetes m ellitus V18.0 ; Family history of thyroid disease V18.19 ; Polyuria 788.42 ; Polydipsia 783.5 ; Alopecia 704.00 and Fatigue 780.79 [place] [address] [place] [id number] [address] [place] [address] Jun, [place] [address] [place] [id number] [address] [place] [address] Jun, [facility] [address] [place] [id number] [address] [place] [address] Mar, [facility] [address] [place] [id number] [address] [place] [address] Mar, [facility] [address] [place] [id number] [address] [place] [address] Mar, [facility] [address] [id number] [address] [place] [id number] Mar, [facility] [address] [id number] [address] [place] [address], [place] [address] Mar, [facility] [address] [id number] [address] [place] [address], [place] [address] Mar, [facility] [address] [id number] [address] [place] [address], [place] [id number] Mar, [facility] [address] [id number] [address] [place] [address], [place] [address] Mar, [facility] [address] [id number] [address] [place] [address], [place] [address] Mar, [facility] [address] [id number] [address] [place] [address], [place] [address] Mar, [facility] [address] [id number] [address] [place] [address], [place] [address] Feb, [facility] [address] [id number] [address] [place] [address], [place] [address] Feb, [facility] [address] [id number] [address] [place] [address], [place] [address] Jan, [facility] [address] [id number] [address] [place] [address], [place] [address] Jan, [facility] [address] [id number] [address] [place] [address], [place] [address] Jan, [facility] [address] [id number] [address] [place] [address], [place] [address] Jan, [facility] [address] [id number] [address] [place] [address], [place] [address] Dec, [facility] [address] [id number] [address] [place] [address], [place] [address] Dec, [facility] [address] [id number] [address] [place] [address], [place] [address] Nov, [facility] [address] [id number] [address] [place] [address], [place] [address] Nov, [facility] [address] [id number] [facility] [place] [address] Oct, [facility] [address] [id number] [facility] [place] [address] Oct, [facility] [address] [id number] [facility] [place] [address] Oct, [facility] [address] [id number] [address] [place] [address], [place] [address] Oct, [facility] [address] [id number] [address] [place] [address] Oct, [facility] [address] [id number] [address] [place] [address], [place] [address] Oct, [facility] [address] [id number] [address] [place] [address], [place] [address] Oct, [facility] [address] [id number] [address] [place] [address], [place] [address] Oct, [facility] [address] [id number] [address] [place] [address], [place] [address] Sep, [facility] [address] [id number] [address] [place] [address], [place] [address] Sep, [facility] [address] [id number] [address] [place] [address], [place] [address] Sep, [facility] [address] [id number] [address] [place] [address], [place] [address] Sep, [facility] [address] [id number] [address] [place] [address], [place] [address] Aug, [facility] [address] [id number] [address] [place] [address], [place] [address] Aug, [facility] [address] [id number] [address] [place] [address], [place] [address] Aug, [facility] [address] [id number] [address] [place] [address], [place] [address] Aug, [facility] [address] [id number] [address] [place] [address], [place] [address] July, [facility] [address] [id number] [address] [place] [address], [place] [address] July, [facility] [address] [id number] [address] [place] [address], [place] [address] July, [facility] [address] [id number] [address] [place] [address], [place] [address] July, [facility] [address] [id number] [address] [place] [address], [place] [address] July, [facility] [address] [id number] [address] [place] [address], [place] [address] July, [facility] [address] [id number] [address] [place] [address], [place] [address] Jun, [facility] [address] [id number] [address] [place] [address], [place] [address] Jun, [facility] [address] [id number] [address] [place] [address], [place] [address] Jun, [facility] [address] [id number] [address] [place] [address], [place] [address] Jun, [facility] [address] [id number] [address] [place] [address], [place] [address] Jun, [facility] [address] [id number] [address] [place] [address], [place] [address] Jun, [facility] [address] [id number] [address] [place] [address], [place] [address] Jun, [facility] [address] [id number] [address] [place] [address], [place] [address] Jun, [facility] [address] [id number] [address] [place] [address], [place] [address] May, [facility] [address] [id number] [address] [place] [address], [place] [address] May, [facility] [address] [id number] [address] [place] [address], [place] [address] May, [facility] [address] [id number] [address] [place] [address], [place] [address] Apr, [facility] [address] [id number] [address] [place] [address], [place] [address] Apr, [facility] [address] [id number] [address] [place] [address], [place] [address] Apr, [facility] [address] [id number] [address] [place] [address], [place] [address] Apr, [facility] [address] [id number] [address] [place] [address], [place] [address] Mar, [facility] [address] [id number] [address] [place] [address], [place] [address] Mar, [facility] [address] [id number] [address] [place] [address], [place] [address] Mar, [facility] [address] [id number] [address] [place] [address], [place] [address] Mar, [facility] [address] [id number] [address] [place] [address], [place] [address] Mar, [facility] [address] [id number] [address] [place] [address], [place] [address] Mar, [facility] [address] [id number] [address] [place] [address], [place] [address] Feb, [facility] [address] [id number] [address] [place] [address], [place] [address] Feb, [facility] [address] [id number] [address] [place] [address], [place] [address] Jan, [facility] [address] [id number] [address] [place] [address], [place] [address] Jan, [facility] [address] [id number] [address] [place] [address], [place] [address] Jan, [facility] [address] [id number] [address] [place] [address], [place] [address] Jan, [facility] [address] [id number] [address] [place] [address], [place] [address] Jan, [facility] [address] [id number] [address] [place] [address], [place] [address] Jan, [facility] [address] [id number] [address] [place] [address], [place] [address] Jan, [facility] [address] [id number] [address] [place] [address], [place] [address] Dec, [facility] [address] [id number] [address] [place] [address], [place] [address] Dec, [facility] [address] [id number] [address] [place] [address], [place] [address] Nov, [facility] [address] [id number] [address] [place] [address], [place] [address] Nov, [facility] [address] [id number] [address] [place] [address], [place] [address] Nov, [facility] [address] [id number] [address] [place] [address], [place] [address] Oct, [facility] [address] [id number] [address] [place] [address], [place] [address] Oct, [facility] [address] [id number] [address] [place] [address], [place] [address] Oct, [facility] [address] [id number] [address] [place] [address], [place] [address] Oct, [facility] [address] [id number] [address] [place] [address], [place] [address] Sep, [facility] [address] [id number] [address] [place] [address] Sep, [facility] [address] [id number] [address] [place] [address] Aug, [facility] [address] [id number] [address] [place] [address] Aug, [facility] [address] [id number] [address] [place] [id number] Aug, [facility] [address] [id number] [address] [place] [address] Aug, [facility] [address] [id number] [address] [place] [address] July, [facility] [address] [id number] [address] [place] [address] July, [facility] [address] [id number] [address] [place] [address] July, [facility] [address] [id number] [address] [place] [id number] July, [facility] [address] [id number] [address] [place] [address] Jun, [facility] [address] [id number] [address] [place] [id number] Jun, [facility] [address] [id number] [address] [place] [address] Feb, [facility] [address] [id number] [address] [place] [id number] Feb, [facility] [address] [id number] [address] [place] [id number] Mar, IMMUNIZATIONS No Known Immunizations SOCIAL HISTORY [...]
--- OUTSIDE RECORDS SUMMARY | 2019-08-16 14:07 | XMS REPORT ---
Author Author Joseph MARIA Organization [facility], [place] Address [address] [place] [address] Care Team Providers Care Chainstitch Hemmer Name Role Phone CROW MIRELLA Unavailable PROBLEMS Type Condition ICD9-CM Code MZI39-IX Code Onset Dates Condition S tatus SNOMED Code Problem Mood disorder F39 Active 516062 05 Problem Low back pain M54.5 Active 477028 005 Problem Acquired hypothyroidism E03.9 Active 948468822 Problem Diabetes type 2, uncontrolled E11.65 Active 116991423 Problem Diabetes type 2, controlled E11.9 Ac tive 47246722 Problem Controlled type 2 diabetes m ellitus without complication, without long- term current use of insulin E11.9 Active 266482262 Problem Uncontrolled type 2 diabetes mellitus with hyperglycemia E11.65 Active 154754408 Problem Hypertension, benign I10 Active 38599130 Problem Other chronic pain G89.29 Active 8 7108472 Problem Shoulder pain, right M25.511 Active 46117604 Problem Cervical radiculopathy M54.12 Active 29568079 Problem History of urethral stricture Z87.448 Active 433596748 Problem 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 Active 739496258 Problem Type 2 diabetes mellitus without complications E11 .9 Active 975977921 ALLERGIES No Information ENCOUNTERS Encounter Location Date Diagnosis [facility], [place] [address] [facility] [id number] [address] [place] [phone] Feb, Controlled type 2 diabetes m ellitus without complication, without long-term current use of insulin E11.9 [facility] [place] [address] [facility] [id number] [address] [place] [phone] Feb, Uncontrolled type 2 diabetes mellitus with hyperglycemia E11.65 ; Other chronic pain G89.29 ; Pain in right shoulder M25.511 and Thoracic spine pain M54.6 [facility] [place] [address] [facility] [id number] [address] [place] [phone] Nov, [facility] [place] [address] [id number] [address] [place] [phone] Aug, Diabetes type 2, uncontrolle d E11.65 [facility] [place] [address] [facility] [id number] [address] [place] [phone] July, [facility] [address] [id number] [address] [place] [phone] July, Dental examination Z01.20 an d Caries K02.9 [facility], [place] [address] [id number] [address] [place] [phone] Jun, Controlled type 2 diabetes m ellitus without complication, without long-term current use of insulin E11.9 [facility] [place] [address] [facility] [id number] [address] [place] [phone] May, Controlled type 2 diabetes m ellitus without complication, without long-term current use of insulin E11.9 [facility] [place] [address] [facility] [id number] [address] [place] [phone] Apr, [facility] [place] [address] [facility] [id number] [address] [place] [phone] Mar, Controlled type 2 diabetes m ellitus without complication, without long-term current use of insulin E11.9 [facility] [place] [address] [facility] [id number] [address] [place] [phone] Jan, [facility] [place] [address] [facility] [id number] [address] [place] [phone] Dec, Diabetes type 2, uncontrolle d E11.65 [facility] [place] [address] [facility] [id number] [address] [place] [phone] Dec, Type 2 diabetes mellitus wit hout complications E11.9 ; 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 and Cervicalgia M54.2 [facility] [place] [address] [facility] [id number] [address] [place] [phone] Dec, Type 2 diabetes mellitus wit hout complications E11.9 ; 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 and Cervicalgia M54.2 [facility] [place] [address] [id number] [address] [place] [phone] Dec, Controlled type 2 diabetes m ellitus without complication, without long-term current use of insulin E11.9 [place] [address] [id number] [address] [place] [phone] Nov, [place] [address] [id number] [address] [place] [address] Oct, Diabetes type 2, uncontrolle d E11.65 [place] [address] [id number] [address] [place] [phone] Sep, Diabetes type 2, uncontrolle d E11.65 [place] [address] [id number] [address] [place] [phone] Jun, Controlled type 2 diabetes m ellitus without complication, without long-term current use of insulin E11.9 [place] [address] [id number] [address] [place] [address] May, [place] [address] [id number] [address] [place] [phone] 16 May, 2017 Radiculopathy of cervical re gion M54.12 [place] [address] [id number] [address] [place] [phone] 14 May, 2017 Controlled type 2 diabetes m ellitus without complication, without long-term current use of insulin E11.9 [place] [address] [id number] [address] [place] [phone] May, [place] [address] [id number] [address] [place] [phone] May, Controlled type 2 diabetes m ellitus without complication, without long-term current use of insulin E11.9 [place] [address] [id number] [address] [place] [phone] May, Controlled type 2 diabetes m ellitus without complication, without long-term current use of insulin E11.9 [facility] [place] [address] [id number] [address] [place] [phone] May, Controlled type 2 diabetes m ellitus without complication, without long-term current use of insulin E11.9 [facility] [place] [address] [id number] [address] [place] [phone] Apr, [facility] [place] [address] [id number] [address] [place] [phone] Apr, Controlled type 2 diabetes m ellitus without complication, without long-term current use of insulin E11.9 [place] [address] [id number] [address] [place] [phone] Apr, [place] [address] [id number] [address] [place] [phone] Apr, Controlled type 2 diabetes m ellitus without complication, without long-term current use of insulin E11.9 [place] [address] [id number] [address] [place] [phone] Mar, [place] [address] [id number] [address] [place] [phone] Mar, Radiculopathy of cervical re gion M54.12 [place] [address] [id number] [address] [place] [phone] Mar, Controlled type 2 diabetes m ellitus without complication, without long-term current use of insulin E11.9 [place] [address] [facility] [id number] [address] [place] [id number] Feb, Cervical radiculopathy M54.1 2 ; Acute cystitis without hematuria N30.00 and History of urethral stricture Z87.448 [place] [address] [facility] [id number] [address] [place] [phone] Feb, Controlled type 2 diabetes m ellitus without complication, without long-term current use of insulin E11.9 [place] [address] [facility] [id number] [address] [place] [phone] Feb, [facility] [place] [address] [id number] [address] [place] [phone] Jan, Diabetes type 2, uncontrolle d E11.65 [facility], [place] [address] [id number] [address] [place] [phone] Jan, [facility] [place] [address] [id number] [address] [place] [phone] Jan, Controlled type 2 diabetes m ellitus without complication, without long-term current use of insulin E11.9 ; Chest wall pain R07.89 and Thoracic spine pain M54.6 [facility] [place] [address] [id number] [address] [place] [phone] Dec, [facility] [place] [address] [id number] [address] [place] [phone] Dec, [facility] [place] [address] [id number] [address] [place] [phone] Nov, [facility], [place] [address] [id number] [address] [place] [phone] Nov, [facility] [address] [id number] [address] [place] [phone] Nov, Trichomonas exposure Z20.2 [facility], [place] [address] [id number] [address] [place] [id number] Oct, [facility] [place] [address] [id number] [address] [place] [phone] Oct, [facility] [place] [address] [id number] [address] [place] [phone] Oct, [facility] [place] [address] [id number] [address] [place] [phone] Oct, [facility] [place] [address] [id number] [address] [place] [phone] Sep, [facility], [place] [address] [id number] [address] [place] [phone] Sep, [facility] [place] [address] [id number] [address] [place] [address], [place] [address] Aug, [facility], [place] [address] [id number] [address] [place] [address], [place] [address] Aug, [facility] [place] [address] [id number] [address] [place] [address], [place] [address] Aug, [facility] [place] [address] [id number] [address] [place] [address], [place] [address] Aug, [facility] [place] [address] [id number] [address] [place] [address], [place] [address] July, Diabetes type 2, controlled E11.9 [facility], [place] [address] [id number] [address] [place] [address], [place] [address] July, [facility] [place] [address] [id number] [address] [place] [address], [place] [address] July, [facility] [place] [address] [id number] [address] [place] [address], [place] [address] July, [facility] [place] [address] [id number] [address] [place] [address], [place] [address] July, [facility], [place] [address] [id number] [address] [place] [address], [place] [address] Jun, [facility], [place] [address] [id number] [address] [place] [address], [place] [address] Jun, [facility], [place] [address] [id number] [address] [place] [address], [place] [address] May, [facility] [place] [address] [id number] [address] [place] [address], [place] [address] May, [facility], [place] [address] [id number] [address] [place] [address], [place] [address] May, [facility], [place] [address] [id number] [address] [place] [address], [place] [address] May, Controlled type 2 diabetes m ellitus without complication, without long-term current use of insulin E11.9 [facility], [place] [address] [id number] [address] [place] [phone] Apr, [facility] [place] [address] [id number] [address] [place] [phone] Apr, [facility] [place] [address] [id number] [address] [place] [phone] Mar, [facility], [place] [address] [id number] [address] [place] [id number] Mar, [facility] [place] [address] [id number] [address] [place] [id number] Feb, [facility] [place] [address] [id number] [address] [place] [phone] Feb, [facility] [place] [address] [id number] [address] [place] [phone] Jan, [facility] [place] [address] [id number] [address] [place] [phone] Jan, [facility] [place] [address] [id number] [address] [place] [phone] Jan, [facility] [place] [address] [id number] [address] [place] [phone] Dec, [facility], [place] [address] [id number] [address] [place] [phone] Dec, [facility] [place] [address] [id number] [address] [place] [id number] Dec, [facility] [place] [address] [id number] [address] [place] [id number] 29 Nov, 2015 Diabetes type 2, uncontrolle d E11.65 [facility] [place] [address] [id number] [address] [place] [id number] 14 Nov, 2015 [facility] [place] [address] [id number] [address] [place] [phone] Nov, [facility] [place] [address] [id number] [address] [place] [id number] Oct, [facility] [place] [address] [id number] [address] [place] [phone] Oct, [facility] [place] [address] [id number] [address] [place] [phone] Sep, Controlled type 2 diabetes m ellitus without complication, without long-term current use of insulin E11.9 [facility] [place] [address] [id number] [address] [place] [id number] Sep, [facility] [place] [address] [id number] [address] [place] [phone] Sep, [facility] [place] [address] [id number] [address] [place] [id number] Sep, [facility] [place] [address] [id number] [address] [place] [id number] Sep, [facility] [place] [address] [id number] [address] [place] [phone] Aug, Diabetes type 2, controlled E11.9 ; Anxiety F41.9 ; Carpal tunnel syndrome, left upper limb G56.02 and Carpal tunnel syndrome, right upper limb G56.01 [facility], [place] [address] [id number] [address] [place] [id number] Aug, Urethritis N34.2 [facility] [place] [address] [id number] [address] [place] [phone] Aug, [facility] [place] [address] [id number] [address] [place] [id number] July, Genital warts A63.0 [facility] [place] [address] [id number] [address] [place] [id number] July, [facility] [place] [address] [id number] [address] [place] [address] July, Genital warts A63.0 [facility] [place] [address] [id number] [address] [place] [phone] July, Anxiety F41.9 [facility] [place] [address] [id number] [address] [place] [id number] Jun, Genital warts A63.0 [facility] [place] [address] [id number] [address] [place] [phone] Jun, Anxiety F41.9 [facility] [place] [address] [id number] [address] [place] [id number] May, Genital warts A63.0 and Diab etes type 2, uncontrolled E11.65 [facility] [place] [address] [id number] [address] [place] [phone] May, [facility] [place] [address] [id number] [address] [place] [id number] May, [facility] [place] [address] [id number] [address] [place] [phone] Apr, [facility] [place] [address] [id number] [address] [place] [phone] Apr, [facility] [place] [address] [id number] [address] [place] [address] Apr, Diabetes type 2, controlled E11.9 [facility] [place] [address] [id number] [address] [place] [id number] Apr, Genital warts A63.0 [facility] [place] [address] [id number] [address] [place] [id number] Apr, [facility] [place] [address] [id number] [address] [place] [address] Apr, Diabetes type 2, uncontrolle d E11.65 and Genital warts A63.0 [facility] [place] [address] [id number] [address] [place] [phone] Apr, [facility] [place] [address] [facility] [id number] [address] [place] [phone] Mar, [facility] [place] [address] [facility] [id number] [address] [place] [id number] Mar, [facility] [place] [address] [facility] [id number] [address] [place] [phone] Mar, Family history of diabetes m ellitus V18.0 and Weight loss R63.4 [facility] [place] [address] [place] [id number] [place] [phone] Mar, Genital warts A63.0 and Fami ly history of diabetes mellitus V18.0 [facility] [place] [address] [facility] [id number] [place] [id number] Feb, [place] [address] [phone] Jan, [facility] [place] [address] [place] [id number] [place] [phone] Jan, Perianal venereal warts A63. 0 [facility] [place] [address] [place] [id number] [address] [place] [phone] Jan, Urethritis N34.2 and Anxiety F41.9 [facility] [place] [address] [address] Jan, [facility] [place] [address] [place] [id number] [place] [address] Jan, Urinary tract infection, sit e unspecified N39.0 [facility] [place] [address] [facility] [id number] [address] [place] [phone] Jan, [facility] [place] [address] [place] [id number] [place] [phone] Dec, [facility] [place] [address] [place] [id number] [address] [place] [id number] Dec, HPV (human papilloma virus) anogenital infection A63.0 ; Anxiety F41.9 and Gastroesophageal reflux disease without esophagitis K21.9 [facility] [place] [address] [place] [id number] [address] [place] [address] Sep, Blood in stool 578.1 [facility] [place] [address] [place] [id number] [address] [place] [phone] Aug, Blood in stool 578.1 [facility] [place] [address] [place] [id number] [address] [place] [address] Aug, Anxiety 300.00 and Blood in stool 578.1 [facility] [place] [address] [place] [id number] [address] [place] [id number] July, [place] [address] [place] [id number] [place] [address] July, Family history of diabetes m ellitus V18.0 [place] [address] [address] July, Family history of diabetes m ellitus V18.0 ; Family history of thyroid disease V18.19 ; Polyuria 788.42 ; Polydipsia 783.5 ; Alopecia 704.00 and Fatigue 780.79 [place] [address] [place] [id number] [address] [place] [address] Jun, [place] [address] [place] [id number] [address] [place] [id number] Jun, [facility] [place] [address] [place] [id number] [address] [place] [id number] Mar, [facility] [place] [address] [place] [id number] [address] [place] [id number] Mar, [facility] [place] [address] [place] [id number] [address] [place] [phone] Mar, [facility] [place] [address] [place] [id number] [address] [place] [id number] Mar, [facility] [place] [address] [id number] [address] [place] [address], [place] [address] Mar, [facility] [address] [id number] [address] [place] [address], [place] [address] Mar, [facility] [address] [id number] [address] [place] [address], [place] [address] Mar, [facility] [address] [id number] [address] [place] [address], [place] [address] Mar, [facility] [address] [id number] [address] [place] [address], [place] [address] Mar, [facility] [address] [id number] [address] [place] [address], [place] [address] Mar, [facility] [address] [id number] [address] [place] [address], [place] [address] Feb, [facility] [address] [id number] [address] [place] [address], [place] [address] Feb, [facility] [address] [id number] [address] [place] [address], [place] [address] Jan, [facility] [address] [id number] [address] [place] [address], [place] [address] Jan, [facility] [address] [id number] [address] [place] [address], [place] [address] Jan, [facility] [address] [id number] [address] [place] [address], [place] [address] Jan, [facility] [address] [id number] [address] [place] [address], [place] [address] Dec, [facility] [address] [id number] [address] [place] [address], [place] [address] Dec, [facility] [address] [id number] [address] [place] [address], [place] [address] Nov, [facility] [address] [id number] [address] [place] [address], [place] [address] Nov, [facility] [address] [id number] [facility] [place] [address] Oct, [facility] [address] [id number] [facility] [place] [address] Oct, [facility] [address] [id number] [facility] [place] [address] Oct, [facility] [address] [id number] [address] [place] [address], [place] [address] Oct, [facility] [address] [id number] [facility] [place] [address] Oct, [facility] [address] [id number] [address] [place] [address], [place] [address] Oct, [facility] [address] [id number] [address] [place] [address], [place] [address] Oct, [facility] [address] [id number] [address] [place] [address], [place] [address] Oct, [facility] [address] [id number] [address] [place] [address], [place] [address] Sep, [facility] [address] [id number] [address] [place] [address], [place] [address] Sep, [facility] [address] [id number] [address] [place] [address], [place] [address] Sep, [facility] [address] [id number] [address] [place] [address], [place] [address] Sep, [facility] [address] [id number] [address] [place] [address], [place] [address] Aug, [facility] [address] [id number] [address] [place] [address], [place] [address] Aug, [facility] [address] [id number] [address] [place] [address], [place] [address] Aug, [facility] [address] [id number] [address] [place] [address], [place] [address] Aug, [facility] [address] [id number] [address] [place] [address], [place] [address] July, [facility] [address] [id number] [address] [place] [address], [place] [address] July, [facility] [address] [id number] [address] [place] [address], [place] [address] July, [facility] [address] [id number] [address] [place] [address], [place] [address] July, [facility] [address] [id number] [address] [place] [address], [place] [address] July, [facility] [address] [id number] [address] [place] [address], [place] [address] July, [facility] [address] [id number] [address] [place] [address], [place] [address] Jun, [facility] [address] [id number] [address] [place] [address], [place] [address] Jun, [facility] [address] [id number] [address] [place] [address], [place] [address] Jun, [facility] [address] [id number] [address] [place] [address], [place] [address] Jun, [facility] [address] [id number] [address] [place] [address], [place] [address] Jun, [facility] [address] [id number] [address] [place] [address], [place] [address] Jun, [facility] [address] [id number] [address] [place] [address], [place] [address] Jun, [facility] [address] [id number] [address] [place] [address], [place] [address] Jun, [facility] [address] [id number] [address] [place] [address], [place] [address] May, [facility] [address] [id number] [address] [place] [address], [place] [address] May, [facility] [address] [id number] [address] [place] [address], [place] [address] May, [facility] [address] [id number] [address] [place] [address], [place] [address] Apr, [facility] [address] [id number] [address] [place] [address], [place] [address] Apr, [facility] [address] [id number] [address] [place] [address], [place] [address] Apr, [facility] [address] [id number] [address] [place] [address], [place] [address] Apr, [facility] [address] [id number] [address] [place] [address], [place] [address] Mar, [facility] [address] [id number] [address] [place] [address], [place] [address] Mar, [facility] [address] [id number] [address] [place] [address], [place] [address] Mar, [facility] [address] [id number] [address] [place] [address], [place] [address] Mar, [facility] [address] [id number] [address] [place] [address], [place] [address] Mar, [facility] [address] [id number] [address] [place] [address], [place] [address] Mar, [facility] [address] [id number] [address] [place] [address], [place] [address] Feb, [facility] [address] [id number] [address] [place] [address], [place] [address] Feb, [facility] [address] [id number] [address] [place] [address], [place] [address] Jan, [facility] [address] [id number] [address] [place] [address], [place] [address] Jan, [facility] [address] [id number] [address] [place] [address], [place] [address] Jan, [facility] [address] [id number] [address] [place] [address], [place] [address] Jan, [facility] [address] [id number] [address] [place] [address], [place] [address] Jan, [facility] [address] [id number] [address] [place] [address], [place] [address] Jan, [facility] [address] [id number] [address] [place] [address], [place] [address] Jan, [facility] [address] [id number] [address] [place] [address], [place] [address] Dec, [facility] [address] [id number] [address] [place] [address], [place] [address] Dec, [facility] [address] [id number] [address] [place] [address], [place] [address] Nov, [facility] [address] [id number] [address] [place] [address], [place] [address] Nov, [facility] [address] [id number] [address] [place] [address], [place] [address] Nov, [facility] [address] [id number] [address] [place] [address], [place] [address] Oct, [facility] [address] [id number] [address] [place] [address], [place] [address] Oct, [facility] [address] [id number] [address] [place] [address], [place] [address] Oct, [facility] [address] [id number] [address] [place] [address], [place] [address] Oct, [facility] [address] [id number] [address] [place] [address], [place] [address] Sep, [facility] [address] [id number] [address] [place] [address] Sep, [facility] [place] [address] [id number] [address] [place] [address] Aug, [facility] [place] [address] [id number] [address] [place] [address] Aug, [facility] [place] [address] [id number] [address] [place] [address] Aug, [facility] [place] [address] [id number] [address] [place] [address] Aug, [facility] [place] [address] [id number] [address] [place] [address] July, [facility] [place] [address] [id number] [address] [place] [address] July, [facility] [place] [address] [id number] [address] [place] [address] July, [facility] [place] [address] [id number] [address] [place] [id number] July, [facility] [place] [address] [id number] [address] [place] [id number] Jun, [facility] [place] [address] [id number] [address] [place] [address] Jun, [facility] [place] [address] [id number] [address] [place] [address] Feb, [facility] [place] [address] [id number] [address] [place] [address] Feb, [facility] [place] [address] [id number] [address] [place] [id number] Mar, IMMUNIZATIONS No Known Immunizations SOCIAL HISTORY [...]
--- OUTSIDE RECORDS SUMMARY | 2019-08-16 14:07 | XMS REPORT ---
Author Author Joseph MARIA Organization [facility] Address [address] [place] [address] Care Team Providers Care Marketing Program Coordinator Name Role Phone CROW MIRELLA Unavailable PROBLEMS Type Condition ICD9-CM Code AZS11-SI Code Onset Dates Condition S tatus SNOMED Code Problem Mood disorder F39 Active 732011 05 Problem Low back pain M54.5 Active 723590 005 Problem Acquired hypothyroidism E03.9 Active 918479348 Problem Diabetes type 2, uncontrolled E11.65 Active 041400035 Problem Diabetes type 2, controlled E11.9 Ac tive 49526272 Problem Controlled type 2 diabetes m ellitus without complication, without long- term current use of insulin E11.9 Active 605443321 Problem Uncontrolled type 2 diabetes mellitus with hyperglycemia E11.65 Active 649674294 Problem Hypertension, benign I10 Active 05503442 Problem Other chronic pain G89.29 Active 8 2966623 Problem Shoulder pain, right M25.511 Active 83249347 Problem Cervical radiculopathy M54.12 Active 39100824 Problem History of urethral stricture Z87.448 Active 647259105 Problem [facility]CI current use of insulin Z79.4 Active 264381626 Problem Type 2 diabetes mellitus without complications E11 .9 Active 509051525 ALLERGIES No Information ENCOUNTERS Encounter Location Date Diagnosis [facility] [address] [facility] [id number] [address] [place] [address] Feb, Controlled type 2 diabetes m ellitus without complication, without long-term current use of insulin E11.9 [facility] [address] [facility] [id number] [address] [place] [address] Feb, Uncontrolled type 2 diabetes mellitus with hyperglycemia E11.65 ; Other chronic pain G89.29 ; Pain in right shoulder M25.511 and Thoracic spine pain M54.6 [facility] [address] [facility] [id number] [address] [place] [address] Nov, [facility] [address] [id number] [address] [place] [address] Aug, Diabetes type 2, uncontrolle d E11.65 [facility] [address] [facility] [id number] [address] [place] [address] July, [facility] [address] [id number] [address] [place] [id number] July, Dental examination Z01.20 an d Caries K02.9 [facility] [address] [id number] [address] [place] [address] Jun, Controlled type 2 diabetes m ellitus without complication, without long-term current use of insulin E11.9 [facility] [address] [facility] [id number] [address] [place] [address] May, Controlled type 2 diabetes m ellitus without complication, without long-term current use of insulin E11.9 [facility] [address] [facility] [id number] [address] [place] [address] Apr, [facility] [address] [facility] [id number] [address] [place] [address] Mar, Controlled type 2 diabetes m ellitus without complication, without long-term current use of insulin E11.9 [facility] [address] [facility] [id number] [address] [place] [address] Jan, [facility] [address] [facility] [id number] [address] [place] [address] Dec, Diabetes type 2, uncontrolle d E11.65 [facility] [address] [facility] [id number] [address] [place] [address] Dec, Type 2 diabetes mellitus wit hout complications E11.9 ; intermediate manager current use of insulin Z79.4 and Cervicalgia M54.2 [facility] [address] [facility] [id number] [address] [place] [address] Dec, Type 2 diabetes mellitus wit hout complications E11.9 ; intermediate manager current use of insulin Z79.4 and Cervicalgia M54.2 [facility] [address] [id number] [address] [place] [address] Dec, Controlled type 2 diabetes m ellitus without complication, without long-term current use of insulin E11.9 [place] [address] [id number] [address] [place] [address] Nov, [place] [address] [id number] [address] [place] [address] Oct, Diabetes type 2, uncontrolle d E11.65 [place] [address] [id number] [address] [place] [address] Sep, Diabetes type 2, uncontrolle d E11.65 [place] [address] [id number] [address] [place] [address] Jun, Controlled type 2 diabetes m ellitus without complication, without long-term current use of insulin E11.9 [place] [address] [id number] [address] [place] [address] May, [place] [address] [id number] [address] [place] [address] 16 May, 2017 Radiculopathy of cervical re gion M54.12 [place] [address] [id number] [address] [place] [address] 14 May, 2017 Controlled type 2 diabetes m ellitus without complication, without long-term current use of insulin E11.9 [place] [address] [id number] [address] [place] [address] May, [place] [address] [id number] [address] [place] [address] May, Controlled type 2 diabetes m ellitus without complication, without long-term current use of insulin E11.9 [place] [address] [id number] [address] [place] [address] May, Controlled type 2 diabetes m ellitus without complication, without long-term current use of insulin E11.9 [facility] [address] [id number] [address] [place] [address] May, Controlled type 2 diabetes m ellitus without complication, without long-term current use of insulin E11.9 [facility] [address] [id number] [address] [place] [address] Apr, [facility] [address] [id number] [address] [place] [address] Apr, Controlled type 2 diabetes m ellitus without complication, without long-term current use of insulin E11.9 [place] [address] [id number] [address] [place] [address] Apr, [place] [address] [id number] [address] [place] [address] Apr, Controlled type 2 diabetes m ellitus without complication, without long-term current use of insulin E11.9 [place] [address] [id number] [address] [place] [address] Mar, [place] [address] [id number] [address] [place] [address] Mar, Radiculopathy of cervical re gion M54.12 [place] [address] [id number] [address] [place] [address] Mar, Controlled type 2 diabetes m ellitus without complication, without long-term current use of insulin E11.9 [place] [address] [facility] [id number] [address] [place] [address] Feb, Cervical radiculopathy M54.1 2 ; Acute cystitis without hematuria N30.00 and History of urethral stricture Z87.448 [place] [address] [facility] [id number] [address] [place] [address] Feb, Controlled type 2 diabetes m ellitus without complication, without long-term current use of insulin E11.9 [place] [address] [facility] [id number] [address] [place] [address] Feb, [facility] [address] [id number] [address] [place] [address] Jan, Diabetes type 2, uncontrolle d E11.65 [facility] [address] [id number] [address] [place] [address] Jan, [facility] [address] [id number] [address] [place] [address] Jan, Controlled type 2 diabetes m ellitus without complication, without long-term current use of insulin E11.9 ; Chest wall pain R07.89 and Thoracic spine pain M54.6 [facility] [address] [id number] [address] [place] [address] Dec, [facility] [address] [id number] [address] [place] [address] Dec, [facility] [address] [id number] [address] [place] [address] Nov, [facility] [address] [id number] [address] [place] [address] Nov, [facility] [address] [id number] [address] [place] [address] Nov, Trichomonas exposure Z20.2 [facility] [address] [id number] [address] [place] [address] Oct, [facility] [address] [id number] [address] [place] [address] Oct, [facility] [address] [id number] [address] [place] [address] Oct, [facility] [address] [id number] [address] [place] [address] Oct, [facility] [address] [id number] [address] [place] [address] Sep, [facility] [address] [id number] [address] [place] [address] Sep, [facility] [address] [id number] [address] [place] [address], [place] [address] Aug, [facility] [address] [id number] [address] [place] [address], [place] [address] Aug, [facility] [address] [id number] [address] [place] [address], [place] [address] Aug, [facility] [address] [id number] [address] [place] [address], [place] [address] Aug, [facility] [address] [id number] [address] [place] [address], [place] [address] July, Diabetes type 2, controlled E11.9 [facility] [address] [id number] [address] [place] [address], [place] [address] July, [facility] [address] [id number] [address] [place] [address], [place] [address] July, [facility] [address] [id number] [address] [place] [address], [place] [address] July, [facility] [address] [id number] [address] [place] [address], [place] [address] July, [facility] [address] [id number] [address] [place] [address], [place] [address] Jun, [facility] [address] [id number] [address] [place] [address], [place] [address] Jun, [facility] [address] [id number] [address] [place] [address], [place] [address] May, [facility] [address] [id number] [address] [place] [address], [place] [address] May, [facility] [address] [id number] [address] [place] [address], [place] [address] May, [facility] [address] [id number] [address] [place] [address], [place] [address] May, Controlled type 2 diabetes m ellitus without complication, without long-term current use of insulin E11.9 [facility] [address] [id number] [address] [place] [address] Apr, [facility] [address] [id number] [address] [place] [address] Apr, [facility] [address] [id number] [address] [place] [address] Mar, [facility] [address] [id number] [address] [place] [address] Mar, [facility] [address] [id number] [address] [place] [address] Feb, [facility] [address] [id number] [address] [place] [address] Feb, [facility] [address] [id number] [address] [place] [address] Jan, [facility] [address] [id number] [address] [place] [address] Jan, [facility] [address] [id number] [address] [place] [address] Jan, [facility] [address] [id number] [address] [place] [address] Dec, [facility] [address] [id number] [address] [place] [address] Dec, [facility] [address] [id number] [address] [place] [address] Dec, [facility] [address] [id number] [address] [place] [address] 29 Nov, 2015 Diabetes type 2, uncontrolle d E11.65 [facility] [address] [id number] [address] [place] [address] 14 Nov, 2015 [facility] [address] [id number] [address] [place] [address] Nov, [facility] [address] [id number] [address] [place] [address] Oct, [facility] [address] [id number] [address] [place] [address] Oct, [facility] [address] [id number] [address] [place] [address] Sep, Controlled type 2 diabetes m ellitus without complication, without long-term current use of insulin E11.9 [facility] [address] [id number] [address] [place] [address] Sep, [facility] [address] [id number] [address] [place] [address] Sep, [facility] [address] [id number] [address] [place] [address] Sep, [facility] [address] [id number] [address] [place] [address] Sep, [facility] [address] [id number] [address] [place] [address] Aug, Diabetes type 2, controlled E11.9 ; Anxiety F41.9 ; Carpal tunnel syndrome, left upper limb G56.02 and Carpal tunnel syndrome, right upper limb G56.01 [facility] [address] [id number] [address] [place] [address] Aug, Urethritis N34.2 [facility] [address] [id number] [address] [place] [address] Aug, [facility] [address] [id number] [address] [place] [address] July, Genital warts A63.0 [facility] [address] [id number] [address] [place] [address] July, [facility] [address] [id number] [address] [place] [address] July, Genital warts A63.0 [facility] [address] [id number] [address] [place] [address] July, Anxiety F41.9 [facility] [address] [id number] [address] [place] [address] Jun, Genital warts A63.0 [facility] [address] [id number] [address] [place] [address] Jun, Anxiety F41.9 [facility] [address] [id number] [address] [place] [address] May, Genital warts A63.0 and Diab etes type 2, uncontrolled E11.65 [facility] [address] [id number] [address] [place] [address] May, [facility] [address] [id number] [address] [place] [address] May, [facility] [address] [id number] [address] [place] [address] Apr, [facility] [address] [id number] [address] [place] [address] Apr, [facility] [address] [id number] [address] [place] [address] Apr, Diabetes type 2, controlled E11.9 [facility] [address] [id number] [address] [place] [address] Apr, Genital warts A63.0 [facility] [address] [id number] [address] [place] [address] Apr, [facility] [address] [id number] [address] [place] [address] Apr, Diabetes type 2, uncontrolle d E11.65 and Genital warts A63.0 [facility] [address] [id number] [address] [place] [address] Apr, [facility] [address] [facility] [id number] [address] [place] [address] Mar, [facility] [address] [facility] [id number] [address] [place] [address] Mar, [facility] [address] [facility] [id number] [address] [place] [address] Mar, Family history of diabetes m ellitus V18.0 and Weight loss R63.4 [facility] [address] [place] [id number] [place] [address] Mar, Genital warts A63.0 and Fami ly history of diabetes mellitus V18.0 [facility] [address] [facility] [id number] [place] [address] Feb, [place] [address] [address] Jan, [facility] [address] [place] [id number] [place] [address] Jan, Perianal venereal warts A63. 0 [facility] [address] [place] [id number] [address] [place] [address] Jan, Urethritis N34.2 and Anxiety F41.9 [facility] [address] [address] Jan, [facility] [address] [place] [id number] [place] [address] Jan, Urinary tract infection, sit e unspecified N39.0 [facility] [address] [facility] [id number] [address] [place] [address] Jan, [facility] [address] [place] [id number] [place] [address] Dec, [facility] [address] [place] [id number] [address] [place] [address] Dec, HPV (human papilloma virus) anogenital infection A63.0 ; Anxiety F41.9 and Gastroesophageal reflux disease without esophagitis K21.9 [facility] [address] [place] [id number] [address] [place] [address] Sep, Blood in stool 578.1 [facility] [address] [place] [id number] [address] [place] [address] Aug, Blood in stool 578.1 [facility] [address] [place] [id number] [address] [place] [address] Aug, Anxiety 300.00 and Blood in stool 578.1 [facility] [address] [place] [id number] [address] [place] [address] July, [place] [address] [place] [id number] [place] [address] July, Family history of diabetes m ellitus V18.0 [place] [address] [address] July, Family history of diabetes m ellitus V18.0 ; Family history of thyroid disease V18.19 ; Polyuria 788.42 ; Polydipsia 783.5 ; Alopecia 704.00 and Fatigue 780.79 [place] [address] [place] [id number] [address] [place] [address] Jun, [place] [address] [place] [id number] [address] [place] [address] Jun, [facility] [address] [place] [id number] [address] [place] [address] Mar, [facility] [address] [place] [id number] [address] [place] [address] Mar, [facility] [address] [place] [id number] [address] [place] [address] Mar, [facility] [address] [place] [id number] [address] [place] [address] Mar, [facility] [address] [id number] [address] [place] [address], [place] [address] Mar, [facility] [address] [id number] [address] [place] [address], [place] [address] Mar, [facility] [address] [id number] [address] [place] [address], [place] [address] Mar, [facility] [address] [id number] [address] [place] [address], [place] [address] Mar, [facility] [address] [id number] [address] [place] [address], [place] [address] Mar, [facility] [address] [id number] [address] [place] [address], [place] [address] Mar, [facility] [address] [id number] [address] [place] [address], [place] [address] Feb, [facility] [address] [id number] [address] [place] [address], [place] [address] Feb, [facility] [address] [id number] [address] [place] [address], [place] [address] Jan, [facility] [address] [id number] [address] [place] [address], [place] [address] Jan, [facility] [address] [id number] [address] [place] [address], [place] [address] Jan, [facility] [address] [id number] [address] [place] [address], [place] [address] Jan, [facility] [address] [id number] [address] [place] [address], [place] [address] Dec, [facility] [address] [id number] [address] [place] [address], [place] [address] Dec, [facility] [address] [id number] [address] [place] [address], [place] [address] Nov, [facility] [address] [id number] [address] [place] [address], [place] [address] Nov, [facility] [address] [id number] [address] [address] Oct, [facility] [address] [id number] [address] [address] Oct, [facility] [address] [id number] [address] [address] Oct, [facility] [address] [id number] [address] [place] [address], [place] [address] Oct, [facility] [address] [id number] [address] [address] Oct, [facility] [address] [id number] [address] [place] [address], [place] [address] Oct, [facility] [address] [id number] [address] [place] [address], [place] [address] Oct, [facility] [address] [id number] [address] [place] [address], [place] [address] Oct, [facility] [address] [id number] [address] [place] [address], [place] [address] Sep, [facility] [address] [id number] [address] [place] [address], [place] [address] Sep, [facility] [address] [id number] [address] [place] [address], [place] [address] Sep, [facility] [address] [id number] [address] [place] [address], [place] [address] Sep, [facility] [facility] [address] [id number] [address] [place] [address], [place] [address] Aug, [facility] [address] [id number] [address] [place] [address], [place] [address] Aug, [facility] [address] [id number] [address] [place] [address], [place] [address] Aug, [facility] [address] [id number] [address] [place] [address], [place] [address] Aug, [facility] [address] [id number] [address] [place] [address], [place] [address] July, [facility] [address] [id number] [address] [place] [address], [place] [address] July, [facility] [address] [id number] [address] [place] [address], [place] [address] July, [facility] [address] [id number] [address] [place] [address], [place] [address] July, [facility] [address] [id number] [address] [place] [address], [place] [address] July, [facility] [address] [id number] [address] [place] [address], [place] [address] July, [facility] [address] [id number] [address] [place] [address], [place] [address] Jun, [facility] [address] [id number] [address] [place] [address], [place] [address] Jun, [facility] [address] [id number] [address] [place] [address], [place] [address] Jun, [facility] [address] [id number] [address] [place] [address], [place] [address] Jun, [facility] [address] [id number] [address] [place] [address], [place] [address] Jun, [facility] [address] [id number] [address] [place] [address], [place] [address] Jun, [facility] [address] [id number] [address] [place] [address], [place] [address] Jun, [facility] [address] [id number] [address] [place] [address], [place] [address] Jun, [facility] [address] [id number] [address] [place] [address], [place] [address] May, [facility] [address] [id number] [address] [place] [address], [place] [address] May, [facility] [address] [id number] [address] [place] [address], [place] [address] May, [facility] [address] [id number] [address] [place] [address], [place] [address] Apr, [facility] [address] [id number] [address] [place] [address], [place] [address] Apr, [facility] [address] [id number] [address] [place] [address], [place] [address] Apr, [facility] [address] [id number] [address] [place] [address], [place] [address] Apr, [facility] [address] [id number] [address] [place] [address], [place] [address] Mar, [facility] [address] [id number] [address] [place] [address], [place] [address] Mar, [facility] [address] [id number] [address] [place] [address], [place] [address] Mar, [facility] [address] [id number] [address] [place] [address], [place] [address] Mar, [facility] [address] [id number] [address] [place] [address], [place] [address] Mar, [facility] [address] [id number] [address] [place] [address], [place] [address] Mar, [facility] [address] [id number] [address] [place] [address], [place] [address] Feb, [facility] [address] [id number] [address] [place] [address], [place] [address] Feb, [facility] [address] [id number] [address] [place] [address], [place] [address] Jan, [facility] [address] [id number] [address] [place] [address], [place] [address] Jan, [facility] [address] [id number] [address] [place] [address], [place] [address] Jan, [facility] [address] [id number] [address] [place] [address], [place] [address] Jan, [facility] [address] [id number] [address] [place] [address], [place] [address] Jan, [facility] [address] [id number] [address] [place] [address], [place] [address] Jan, [facility] [address] [id number] [address] [place] [address], [place] [address] Jan, [facility] [address] [id number] [address] [place] [address], [place] [address] Dec, [facility] [address] [id number] [address] [place] [address], [place] [address] Dec, [facility] [address] [id number] [address] [place] [address], [place] [address] Nov, [facility] [address] [id number] [address] [place] [address], [place] [address] Nov, [facility] [address] [id number] [address] [place] [address], [place] [address] Nov, [facility] [address] [id number] [address] [place] [address], [place] [address] Oct, [facility] [address] [id number] [address] [place] [address], [place] [address] Oct, [facility] [address] [id number] [address] [place] [address], [place] [address] Oct, [facility] [address] [id number] [address] [place] [address], [place] [address] Oct, [facility] [address] [id number] [address] [place] [address], [place] [address] Sep, [facility] [address] [id number] [address] [place] [address] Sep, [facility] [address] [id number] [address] [place] [address] Aug, [facility] [address] [id number] [address] [place] [address] Aug, [facility] [address] [id number] [address] [place] [address] Aug, [facility] [address] [id number] [address] [place] [address] Aug, [facility] [address] [id number] [address] [place] [address] July, [facility] [address] [id number] [address] [place] [address] July, [facility] [address] [id number] [address] [place] [address] July, [facility] [address] [id number] [address] [place] [address] July, [facility] [address] [id number] [address] [place] [address] Jun, [facility] [address] [id number] [address] [place] [address] Jun, [facility] [address] [id number] [address] [place] [address] Feb, [facility] [address] [id number] [address] [place] [address] Feb, [facility] [address] [id number] [address] [place] [address] Mar, IMMUNIZATIONS No Known Immunizations SOCIAL HISTORY [...]
--- OUTSIDE RECORDS SUMMARY | 2019-08-16 14:08 | XMS REPORT ---
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 Name Role Phone CROW MIRELLA Unavailable PROBLEMS Type Condition ICD9-CM Code FZA34-RT Code Onset Dates Condition S tatus SNOMED Code Problem Mood disorder F39 Active 375364 05 Problem Low back pain M54.5 Active 990447 005 Problem Acquired hypothyroidism E03.9 Active 296312890 Problem Diabetes type 2, uncontrolled E11.65 Active 653706476 Problem Diabetes type 2, controlled E11.9 Ac tive 66903280 Problem Controlled type 2 diabetes m ellitus without complication, without long- term current use of insulin E11.9 Active 914589878 Problem Uncontrolled type 2 diabetes mellitus with hyperglycemia E11.65 Active 103991085 Problem Hypertension, benign I10 Active 66609134 Problem Other chronic pain G89.29 Active 8 1628962 Problem Shoulder pain, right M25.511 Active 93008822 Problem Cervical radiculopathy M54.12 Active 79872391 Problem History of urethral stricture Z87.448 Active 374905296 Problem longterm current use of insulin Z79.4 Active 085072888 Problem Type 2 diabetes mellitus without complications E11 .9 Active 464683831 ALLERGIES No Information ENCOUNTERS Encounter Location Date Diagnosis [facility] [address] [facility] [id number] [address] [place] [id number] Feb, Controlled type 2 diabetes m ellitus without complication, without long-term current use of insulin E11.9 [facility] [address] [facility] [id number] [address] [place] [id number] 09 Feb, 2019 Uncontrolled type 2 diabetes mellitus with hyperglycemia E11.65 ; Other chronic pain G89.29 ; Pain in right shoulder M25.511 and Thoracic spine pain M54.6 [facility] [address] [facility] [id number] [address] [place] [id number] Nov, [facility] [address] [id number] [address] [place] [address] Aug, Diabetes type 2, uncontrolle d E11.65 [facility] [address] [facility] [id number] [address] [place] [id number] July, [facility] [address] [id number] [address] [place] [id number] July, Dental examination Z01.20 an d Caries K02.9 [facility] [address] [id number] [address] [place] [id number] Jun, Controlled type 2 diabetes m ellitus without complication, without long-term current use of insulin E11.9 [facility] [address] [facility] [id number] [address] [place] [phone] May, Controlled type 2 diabetes m ellitus without complication, without long-term current use of insulin E11.9 [facility] [address] [facility] [id number] [address] [place] [phone] Apr, [facility] [address] [facility] [id number] [address] [place] [address] Mar, Controlled type 2 diabetes m ellitus without complication, without long-term current use of insulin E11.9 [facility] [address] [facility] [id number] [address] [place] [id number] Jan, [facility] [address] [facility] [id number] [address] [place] [address] Dec, Diabetes type 2, uncontrolle d E11.65 [facility] [address] [facility] [id number] [address] [place] [address] Dec, Type 2 diabetes mellitus wit hout complications E11.9 ; 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 and Cervicalgia M54.2 [facility] [address] [facility] [id number] [address] [place] [address] Dec, Type 2 diabetes mellitus wit hout complications E11.9 ; 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 and Cervicalgia M54.2 [facility] [address] [id number] [address] [place] [address] Dec, Controlled type 2 diabetes m ellitus without complication, without long-term current use of insulin E11.9 [place] [address] [id number] [address] [place] [address] Nov, [place] [address] [id number] [address] [place] [address] Oct, Diabetes type 2, uncontrolle d E11.65 [place] [address] [id number] [address] [place] [id number] Sep, Diabetes type 2, uncontrolle d E11.65 [place] [address] [id number] [address] [place] [id number] Jun, Controlled type 2 diabetes m ellitus without complication, without long-term current use of insulin E11.9 [place] [address] [id number] [address] [place] [id number] May, [place] [address] [id number] [address] [place] [id number] 16 May, 2017 Radiculopathy of cervical re gion M54.12 [place] [address] [id number] [address] [place] [id number] 14 May, 2017 Controlled type 2 diabetes m ellitus without complication, without long-term current use of insulin E11.9 [place] [address] [id number] [address] [place] [phone] May, [place] [address] [id number] [address] [place] [address] May, Controlled type 2 diabetes m ellitus without complication, without long-term current use of insulin E11.9 [place] [address] [id number] [address] [place] [phone] May, Controlled type 2 diabetes m ellitus without complication, without long-term current use of insulin E11.9 [facility] [address] [id number] [address] [place] [id number] May, Controlled type 2 diabetes m ellitus without complication, without long-term current use of insulin E11.9 [facility] [address] [id number] [address] [place] [id number] Apr, [facility] [address] [id number] [address] [place] [id number] Apr, Controlled type 2 diabetes m ellitus without complication, without long-term current use of insulin E11.9 [place] [address] [id number] [address] [place] [address] Apr, [place] [address] [id number] [address] [place] [id number] Apr, Controlled type 2 diabetes m ellitus without complication, without long-term current use of insulin E11.9 [place] [address] [id number] [address] [place] [address] Mar, [place] [address] [id number] [address] [place] [address] Mar, Radiculopathy of cervical re gion M54.12 [place] [address] [id number] [address] [place] [address] Mar, Controlled type 2 diabetes m ellitus without complication, without long-term current use of insulin E11.9 [place] [address] [facility] [id number] [address] [place] [address] Feb, Cervical radiculopathy M54.1 2 ; Acute cystitis without hematuria N30.00 and History of urethral stricture Z87.448 [place] [address] [facility] [id number] [address] [place] [address] Feb, Controlled type 2 diabetes m ellitus without complication, without long-term current use of insulin E11.9 [place] [address] [facility] [id number] [address] [place] [address] Feb, [facility] [address] [id number] [address] [place] [address] Jan, Diabetes type 2, uncontrolle d E11.65 [facility] [address] [id number] [address] [place] [id number] Jan, [facility] [address] [id number] [address] [place] [id number] Jan, Controlled type 2 diabetes m ellitus without complication, without long-term current use of insulin E11.9 ; Chest wall pain R07.89 and Thoracic spine pain M54.6 [facility] [address] [id number] [address] [place] [address] Dec, [facility] [address] [id number] [address] [place] [id number] Dec, [facility] [address] [id number] [address] [place] [id number] Nov, [facility] [address] [id number] [address] [place] [id number] Nov, [facility] [address] [id number] [address] [place] [id number] Nov, Trichomonas exposure Z20.2 [facility] [address] [id number] [address] [place] [id number] Oct, [facility] [address] [id number] [address] [place] [address] Oct, [facility] [address] [id number] [address] [place] [id number] Oct, [facility] [address] [id number] [address] [place] [id number] Oct, [facility] [address] [id number] [address] [place] [address] Sep, [facility] [address] [id number] [address] [place] [id number] Sep, [facility] [address] [id number] [address] [place] [address], [place] [address] Aug, [facility] [address] [id number] [address] [place] [address], [place] [address] Aug, [facility] [address] [id number] [address] [place] [address], [place] [address] Aug, [facility] [address] [id number] [address] [place] [address], [place] [address] Aug, [facility] [address] [id number] [address] [place] [address], [place] [address] July, Diabetes type 2, controlled E11.9 [facility] [address] [id number] [address] [place] [address], [place] [phone] July, [facility] [address] [id number] [address] [place] [address], [place] [phone] July, [facility] [address] [id number] [address] [place] [address], [place] [address] July, [facility] [address] [id number] [address] [place] [address], [place] [address] July, [facility] [address] [id number] [address] [place] [address], [place] [address] Jun, [facility] [address] [id number] [address] [place] [address], [place] [phone] Jun, [facility] [address] [id number] [address] [place] [address], [place] [phone] May, [facility] [address] [id number] [address] [place] [address], [place] [id number] May, [facility] [address] [id number] [address] [place] [address], [place] [phone] May, [facility] [address] [id number] [address] [place] [address], [place] [address] May, Controlled type 2 diabetes m ellitus without complication, without long-term current use of insulin E11.9 [facility] [address] [id number] [address] [place] [phone] Apr, [facility] [address] [id number] [address] [place] [id number] Apr, [facility] [address] [id number] [address] [place] [id number] Mar, [facility] [address] [id number] [address] [place] [id number] Mar, [facility] [address] [id number] [address] [place] [phone] Feb, [facility] [address] [id number] [address] [place] [phone] Feb, [facility] [address] [id number] [address] [place] [phone] Jan, [facility] [address] [id number] [address] [place] [id number] Jan, [facility] [address] [id number] [address] [place] [phone] Jan, [facility] [address] [id number] [address] [place] [id number] Dec, [facility] [address] [id number] [address] [place] [id number] Dec, [facility] [address] [id number] [address] [place] [address] Dec, [facility] [address] [id number] [address] [place] [id number] 29 Nov, 2015 Diabetes type 2, uncontrolle d E11.65 [facility] [address] [id number] [address] [place] [id number] 14 Nov, 2015 [facility] [address] [id number] [address] [place] [id number] Nov, [facility] [address] [id number] [address] [place] [id number] Oct, [facility] [address] [id number] [address] [place] [phone] Oct, [facility] [address] [id number] [address] [place] [id number] Sep, Controlled type 2 diabetes m ellitus without complication, without long-term current use of insulin E11.9 [facility] [address] [id number] [address] [place] [id number] Sep, [facility] [address] [id number] [address] [place] [id number] Sep, [facility] [address] [id number] [address] [place] [id number] Sep, [facility] [address] [id number] [address] [place] [phone] Sep, [facility] [address] [id number] [address] [place] [id number] Aug, Diabetes type 2, controlled E11.9 ; Anxiety F41.9 ; Carpal tunnel syndrome, left upper limb G56.02 and Carpal tunnel syndrome, right upper limb G56.01 [facility] [address] [id number] [address] [place] [id number] Aug, Urethritis N34.2 [facility] [address] [id number] [address] [place] [id number] Aug, [facility] [address] [id number] [address] [place] [address] July, Genital warts A63.0 [facility] [address] [id number] [address] [place] [address] July, [facility] [address] [id number] [address] [place] [address] July, Genital warts A63.0 [facility] [address] [id number] [address] [place] [address] July, Anxiety F41.9 [facility] [address] [id number] [address] [place] [id number] Jun, Genital warts A63.0 [facility] [address] [id number] [address] [place] [address] Jun, Anxiety F41.9 [facility] [address] [id number] [address] [place] [address] May, Genital warts A63.0 and Diab etes type 2, uncontrolled E11.65 [facility] [address] [id number] [address] [place] [address] May, [facility] [address] [id number] [address] [place] [id number] May, [facility] [address] [id number] [address] [place] [address] Apr, [facility] [address] [id number] [address] [place] [address] Apr, [facility] [address] [id number] [address] [place] [address] Apr, Diabetes type 2, controlled E11.9 [facility] [address] [id number] [address] [place] [address] Apr, Genital warts A63.0 [facility] [address] [id number] [address] [place] [address] Apr, [facility] [address] [id number] [address] [place] [address] Apr, Diabetes type 2, uncontrolle d E11.65 and Genital warts A63.0 [facility] [address] [id number] [address] [place] [id number] Apr, [facility] [address] [facility] [id number] [address] [place] [address] Mar, [facility] [address] [facility] [id number] [address] [place] [address] Mar, [facility] [address] [facility] [id number] [address] [place] [address] Mar, Family history of diabetes m ellitus V18.0 and Weight loss R63.4 [facility] [address] [place] [id number] [place] [address] Mar, Genital warts A63.0 and Fami ly history of diabetes mellitus V18.0 [facility] [address] [facility] [id number] [place] [address] Feb, [place] [address] [address] Jan, [facility] [address] [place] [id number] [place] [address] Jan, Perianal venereal warts A63. 0 [facility] [address] [place] [id number] [address] [place] [address] Jan, Urethritis N34.2 and Anxiety F41.9 [facility] [address] [id number] Jan, [facility] [address] [place] [id number] [place] [address] Jan, Urinary tract infection, sit e unspecified N39.0 [facility] [address] [facility] [id number] [address] [place] [address] Jan, [facility] [address] [place] [id number] [place] [address] Dec, [facility] [address] [place] [id number] [address] [place] [id number] Dec, HPV (human papilloma virus) anogenital infection A63.0 ; Anxiety F41.9 and Gastroesophageal reflux disease without esophagitis K21.9 [facility] [address] [place] [id number] [address] [place] [address] Sep, Blood in stool 578.1 [facility] [address] [place] [id number] [address] [place] [address] Aug, Blood in stool 578.1 [facility] [address] [place] [id number] [address] [place] [address] Aug, Anxiety 300.00 and Blood in stool 578.1 [facility] [address] [place] [id number] [address] [place] [address] July, [place] [address] [place] [id number] [place] [address] July, Family history of diabetes m ellitus V18.0 [place] [address] [address] July, Family history of diabetes m ellitus V18.0 ; Family history of thyroid disease V18.19 ; Polyuria 788.42 ; Polydipsia 783.5 ; Alopecia 704.00 and Fatigue 780.79 [place] [address] [place] [id number] [address] [place] [address] Jun, [place] [address] [place] [id number] [address] [place] [address] Jun, [facility] [address] [place] [id number] [address] [place] [address] Mar, [facility] [address] [place] [id number] [address] [place] [id number] Mar, [facility] [address] [place] [id number] [address] [place] [id number] Mar, [facility] [address] [place] [id number] [address] [place] [phone] Mar, [facility] [address] [id number] [address] [place] [address], [place] [address] Mar, [facility] [address] [id number] [address] [place] [address], [place] [address] Mar, [facility] [address] [id number] [address] [place] [address], [place] [address] Mar, [facility] [address] [id number] [address] [place] [address], [place] [address] Mar, [facility] [address] [id number] [address] [place] [address], [place] [address] Mar, [facility] [address] [id number] [address] [place] [address], [place] [address] Mar, [facility] [address] [id number] [address] [place] [address], [place] [address] Feb, [facility] [address] [id number] [address] [place] [address], [place] [address] Feb, [facility] [address] [id number] [address] [place] [address], [place] [address] Jan, [facility] [address] [id number] [address] [place] [address], [place] [address] Jan, [facility] [address] [id number] [address] [place] [address], [place] [address] Jan, [facility] [address] [id number] [address] [place] [address], [place] [address] Jan, [facility] [address] [id number] [address] [place] [address], [place] [address] Dec, [facility] [address] [id number] [address] [place] [address], [place] [address] Dec, [facility] [address] [id number] [address] [place] [address], [place] [address] Nov, [facility] [address] [id number] [address] [place] [address], [place] [id number] Nov, [facility] [address] [id number] [facility] [place] [id number] Oct, [facility] [address] [id number] [facility] [place] [id number] Oct, [facility] [address] [id number] [facility] [place] [address] Oct, [facility] [address] [id number] [address] [place] [address], [place] [id number] Oct, [facility] [address] [id number] [facility] [place] [address] Oct, [facility] [address] [id number] [address] [place] [address], [place] [address] Oct, [facility] [address] [id number] [address] [place] [address], [place] [id number] Oct, [facility] [address] [id number] [address] [place] [address], [place] [id number] Oct, [facility] [address] [id number] [address] [place] [address], [place] [address] Sep, [facility] [address] [id number] [address] [place] [address], [place] [id number] Sep, [facility] [address] [id number] [address] [place] [address], [place] [id number] Sep, [facility] [address] [id number] [address] [place] [address], [place] [address] Sep, [facility] [address] [id number] [address] [place] [address], [place] [id number] Aug, [facility] [address] [id number] [address] [place] [address], [place] [id number] Aug, [facility] [address] [id number] [address] [place] [address], [place] [id number] Aug, [facility] [address] [id number] [address] [place] [address], [place] [address] Aug, [facility] [address] [id number] [address] [place] [address], [place] [address] July, [facility] [address] [id number] [address] [place] [address], [place] [id number] July, [facility] [address] [id number] [address] [place] [address], [place] [id number] July, [facility] [address] [id number] [address] [place] [address], [place] [id number] July, [facility] [address] [id number] [address] [place] [address], [place] [id number] July, [facility] [address] [id number] [address] [place] [address], [place] [id number] July, [facility] [address] [id number] [address] [place] [address], [place] [id number] Jun, [facility] [address] [id number] [address] [place] [address], [place] [address] Jun, [facility] [address] [id number] [address] [place] [address], [place] [id number] Jun, [facility] [address] [id number] [address] [place] [address], [place] [id number] Jun, [facility] [address] [id number] [address] [place] [address], [place] [id number] Jun, [facility] [address] [id number] [address] [place] [address], [place] [id number] Jun, [facility] [address] [id number] [address] [place] [address], [place] [id number] Jun, [facility] [address] [id number] [address] [place] [address], [place] [id number] Jun, [facility] [address] [id number] [address] [place] [address], [place] [phone] May, [facility] [address] [id number] [address] [place] [address], [place] [id number] May, [facility] [address] [id number] [address] [place] [address], [place] [id number] May, [facility] [address] [id number] [address] [place] [address], [place] [id number] Apr, [facility] [address] [id number] [address] [place] [address], [place] [id number] Apr, [facility] [address] [id number] [address] [place] [address], [place] [id number] Apr, [facility] [address] [id number] [address] [place] [address], [place] [id number] Apr, [facility] [address] [id number] [address] [place] [address], [place] [id number] Mar, [facility] [address] [id number] [address] [place] [address], [place] [id number] Mar, [facility] [address] [id number] [address] [place] [address], [place] [id number] Mar, [facility] [address] [id number] [address] [place] [address], [place] [phone] Mar, [facility] [address] [id number] [address] [place] [address], [place] [id number] Mar, [facility] [address] [id number] [address] [place] [address], [place] [phone] Mar, [facility] [address] [id number] [address] [place] [address], [place] [id number] Feb, [facility] [address] [id number] [address] [place] [address], [place] [id number] Feb, [facility] [address] [id number] [address] [place] [address], [place] [id number] Jan, [facility] [address] [id number] [address] [place] [address], [place] [id number] Jan, [facility] [address] [id number] [address] [place] [address], [place] [id number] Jan, [facility] [address] [id number] [address] [place] [address], [place] [id number] Jan, [facility] [address] [id number] [address] [place] [address], [place] [id number] Jan, [facility] [address] [id number] [address] [place] [address], [place] [id number] Jan, [facility] [address] [id number] [address] [place] [address], [place] [id number] Jan, [facility] [address] [id number] [address] [place] [address], [place] [id number] Dec, [facility] [address] [id number] [address] [place] [address], [place] [phone] Dec, [facility] [address] [id number] [address] [place] [address], [place] [id number] Nov, [facility] [address] [id number] [address] [place] [address], [place] [id number] Nov, [facility] [address] [id number] [address] [place] [address], [place] [id number] Nov, [facility] [address] [id number] [address] [place] [address], [place] [address] Oct, [facility] [address] [id number] [address] [place] [address], [place] [id number] Oct, [facility] [address] [id number] [address] [place] [address], [place] [id number] Oct, [facility] [address] [id number] [address] [place] [address], [place] [id number] Oct, [facility] [address] [id number] [address] [place] [address], [place] [id number] Sep, [facility] [address] [id number] [address] [place] [id number] Sep, [facility] [address] [id number] [address] [place] [id number] Aug, [facility] [address] [id number] [address] [place] [id number] Aug, [facility] [address] [id number] [address] [place] [id number] Aug, [facility] [address] [id number] [address] [place] [id number] Aug, [facility] [address] [id number] [address] [place] [id number] July, [facility] [address] [id number] [address] [place] [id number] July, [facility] [address] [id number] [address] [place] [id number] July, [facility] [address] [id number] [address] [place] [id number] July, [facility] [address] [id number] [address] [place] [id number] Jun, [facility] [address] [id number] [address] [place] [id number] Jun, [facility] [address] [id number] [address] [place] [id number] Feb, [facility] [address] [id number] [address] [place] [id number] Feb, [facility] [address] [id number] [address] [place] [id number] Mar, IMMUNIZATIONS No Known Immunizations SOCIAL HISTORY [...]
--- OUTSIDE RECORDS SUMMARY | 2019-08-16 14:08 | XMS REPORT ---
Author Author Joseph MARIA Organization [facility] Address [address] [place] [address] Care Team Providers Care Strategy Lead Name Role Phone CROW MIRELLA Unavailable PROBLEMS Type Condition ICD9-CM Code [id number] Code Onset Dates Condition S tatus SNOMED Code Problem Mood disorder F39 Active 123451 05 Problem Low back pain M54.5 Active 461324 005 Problem Acquired hypothyroidism E03.9 Active 123143734 Problem Diabetes type 2, uncontrolled E11.65 Active 714289950 Problem Diabetes type 2, controlled E11.9 Ac tive 52154632 Problem Controlled type 2 diabetes m ellitus without complication, without long- term current use of insulin E11.9 Active 356897566 Problem Uncontrolled type 2 diabetes mellitus with hyperglycemia E11.65 Active 357849027 Problem Hypertension, benign I10 Active 91319305 Problem Other chronic pain G89.29 Active 8 5472803 Problem Shoulder pain, right M25.511 Active 46282264 Problem Cervical radiculopathy M54.12 Active 67905554 Problem History of urethral stricture Z87.448 Active 163867517 Problem MCC current use of insulin Z79.4 Active 178764649 Problem Type 2 diabetes mellitus without complications E11 .9 Active [id number] ALLERGIES No Information ENCOUNTERS Encounter Location Date Diagnosis [facility] [address] [facility] [id number] [address] [place] [address] Feb, Controlled type 2 diabetes m ellitus without complication, without long-term current use of insulin E11.9 [facility] [address] [facility] [id number] [address] [place] [address] 09 Feb, 2019 Uncontrolled type 2 diabetes mellitus with hyperglycemia E11.65 ; Other chronic pain G89.29 ; Pain in right shoulder M25.511 and Thoracic spine pain M54.6 [facility] [address] [facility] [id number] [address] [place] [address] Nov, [facility] [address] [id number] [address] [place] [address] Aug, Diabetes type 2, uncontrolle d E11.65 [facility] [address] [facility] [id number] [address] [place] [address] July, [facility] [address] [id number] [address] [place] [id number] July, Dental examination Z01.20 an d Caries K02.9 [facility] [address] [id number] [address] [place] [address] Jun, Controlled type 2 diabetes m ellitus without complication, without long-term current use of insulin E11.9 [facility] [address] [facility] [id number] [address] [place] [address] May, Controlled type 2 diabetes m ellitus without complication, without long-term current use of insulin E11.9 [facility] [address] [facility] [id number] [address] [place] [address] Apr, [facility] [address] [facility] [id number] [address] [place] [address] Mar, Controlled type 2 diabetes m ellitus without complication, without long-term current use of insulin E11.9 [facility] [address] [facility] [id number] [address] [place] [address] Jan, [facility] [address] [facility] [id number] [address] [place] [address] Dec, Diabetes type 2, uncontrolle d E11.65 [facility] [address] [facility] [id number] [address] [place] [address] Dec, Type 2 diabetes mellitus wit hout complications E11.9 ; 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 and Cervicalgia M54.2 [facility] [address] [facility] [id number] [address] [place] [address] Dec, Type 2 diabetes mellitus wit hout complications E11.9 ; 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65 [place] [address] [id number] [address] [place] [address] Jun, Controlled type 2 diabetes m ellitus without complication, without long-term current use of insulin E11.9 [place] [address] [id number] [address] [place] [address] May, [place] [address] [id number] [address] [place] [id number] 16 May, 2017 Radiculopathy of cervical re gion M54.12 [place] [address] [id number] [address] [place] [address] 14 May, 2017 Controlled type 2 diabetes m ellitus without complication, without long-term current use of insulin E11.9 [place] [address] [id number] [address] [place] [address] May, [place] [address] [id number] [address] [place] [address] May, Controlled type 2 diabetes m ellitus without complication, without long-term current use of insulin E11.9 [place] [address] [id number] [address] [place] [address] May, Controlled type 2 diabetes m ellitus without complication, without long-term current use of insulin E11.9 [facility] [address] [id number] [address] [place] [address] May, Controlled type 2 diabetes m ellitus without complication, without long-term current use of insulin E11.9 [facility] [address] [id number] [address] [place] [address] Apr, [facility] [address] [id number] [address] [place] [address] Apr, Controlled type 2 diabetes m ellitus without complication, without long-term current use of insulin E11.9 [place] [address] [id number] [address] [place] [address] Apr, [place] [address] [id number] [address] [place] [address] Apr, Controlled type 2 diabetes m ellitus without complication, without long-term current use of insulin E11.9 [place] [address] [id number] [address] [place] [address] Mar, [place] [address] [id number] [address] [place] [address] Mar, Radiculopathy of cervical re gion M54.12 [place] [address] [id number] [address] [place] [address] Mar, Controlled type 2 diabetes m ellitus without complication, without long-term current use of insulin E11.9 [place] [address] [facility] [id number] [address] [place] [address] Feb, Cervical radiculopathy M54.1 2 ; Acute cystitis without hematuria N30.00 and History of urethral stricture Z87.448 [place] [address] [facility] [id number] [address] [place] [address] Feb, Controlled type 2 diabetes m ellitus without complication, without long-term current use of insulin E11.9 [place] [address] [facility] [id number] [address] [place] [address] Feb, [facility] [address] [id number] [address] [place] [address] Jan, Diabetes type 2, uncontrolle d E11.65 [facility] [address] [id number] [address] [place] [address] Jan, [facility] [address] [id number] [address] [place] [address] Jan, Controlled type 2 diabetes m ellitus without complication, without long-term current use of insulin E11.9 ; Chest wall pain R07.89 and Thoracic spine pain M54.6 [facility] [address] [id number] [address] [place] [address] Dec, [facility] [address] [id number] [address] [place] [address] Dec, [facility] [address] [id number] [address] [place] [address] Nov, [facility] [address] [id number] [address] [place] [address] Nov, [facility] [address] [id number] [address] [place] [address] Nov, Trichomonas exposure Z20.2 [facility] [address] [id number] [address] [place] [address] Oct, [facility] [address] [id number] [address] [place] [address] Oct, [facility] [address] [id number] [address] [place] [address] Oct, [facility] [address] [id number] [address] [place] [address] Oct, [facility] [address] [id number] [address] [place] [address] Sep, [facility] [address] [id number] [address] [place] [address] Sep, [facility] [address] [id number] [address] [place] [address], [place] [address] Aug, [facility] [address] [id number] [address] [place] [address], [place] [address] Aug, [facility] [address] [id number] [address] [place] [address], [place] [address] Aug, [facility] [address] [id number] [address] [place] [address], [place] [address] Aug, [facility] [address] [id number] [address] [place] [address], [place] [address] July, Diabetes type 2, controlled E11.9 [facility] [address] [id number] [address] [place] [address], [place] [address] July, [facility] [address] [id number] [address] [place] [address], [place] [address] July, [facility] [address] [id number] [address] [place] [address], [place] [address] July, [facility] [address] [id number] [address] [place] [address], [place] [address] July, [facility] [address] [id number] [address] [place] [address], [place] [address] Jun, [facility] [address] [id number] [address] [place] [address], [place] [address] Jun, [facility] [address] [id number] [address] [place] [address], [place] [address] May, [facility] [address] [id number] [address] [place] [address], [place] [address] May, [facility] [address] [id number] [address] [place] [address], [place] [address] May, [facility] [address] [id number] [address] [place] [address], [place] [address] May, Controlled type 2 diabetes m ellitus without complication, without long-term current use of insulin E11.9 [facility] [address] [id number] [address] [place] [address] Apr, [facility] [address] [id number] [address] [place] [address] Apr, [facility] [address] [id number] [address] [place] [address] Mar, [facility] [address] [id number] [address] [place] [address] Mar, [facility] [address] [id number] [address] [place] [address] Feb, [facility] [address] [id number] [address] [place] [address] Feb, [facility] [address] [id number] [address] [place] [address] Jan, [facility] [address] [id number] [address] [place] [address] Jan, [facility] [address] [id number] [address] [place] [address] Jan, [facility] [address] [id number] [address] [place] [address] Dec, [facility] [address] [id number] [address] [place] [address] Dec, [facility] [address] [id number] [address] [place] [address] Dec, [facility] [address] [id number] [address] [place] [address] 29 Nov, 2015 Diabetes type 2, uncontrolle d E11.65 [facility] [address] [id number] [address] [place] [address] 14 Nov, 2015 [facility] [address] [id number] [address] [place] [address] Nov, [facility] [address] [id number] [address] [place] [address] Oct, [facility] [address] [id number] [address] [place] [address] Oct, [facility] [address] [id number] [address] [place] [address] Sep, Controlled type 2 diabetes m ellitus without complication, without long-term current use of insulin E11.9 [facility] [address] [id number] [address] [place] [address] Sep, [facility] [address] [id number] [address] [place] [address] Sep, [facility] [address] [id number] [address] [place] [address] Sep, [facility] [address] [id number] [address] [place] [address] Sep, [facility] [address] [id number] [address] [place] [address] Aug, Diabetes type 2, controlled E11.9 ; Anxiety F41.9 ; Carpal tunnel syndrome, left upper limb G56.02 and Carpal tunnel syndrome, right upper limb G56.01 [facility] [address] [id number] [address] [place] [address] Aug, Urethritis N34.2 [facility] [address] [id number] [address] [place] [address] Aug, [facility] [address] [id number] [address] [place] [address] July, Genital warts A63.0 [facility] [address] [id number] [address] [place] [address] July, [facility] [address] [id number] [address] [place] [address] July, Genital warts A63.0 [facility] [address] [id number] [address] [place] [address] July, Anxiety F41.9 [facility] [address] [id number] [address] [place] [address] Jun, Genital warts A63.0 [facility] [address] [id number] [address] [place] [address] Jun, Anxiety F41.9 [facility] [address] [id number] [address] [place] [address] May, Genital warts A63.0 and Diab etes type 2, uncontrolled E11.65 [facility] [address] [id number] [address] [place] [address] May, [facility] [address] [id number] [address] [place] [address] May, [facility] [address] [id number] [address] [place] [address] Apr, [facility] [address] [id number] [address] [place] [address] Apr, [facility] [address] [id number] [address] [place] [address] Apr, Diabetes type 2, controlled E11.9 [facility] [address] [id number] [address] [place] [address] Apr, Genital warts A63.0 [facility] [address] [id number] [address] [place] [address] Apr, [facility] [address] [id number] [address] [place] [address] Apr, Diabetes type 2, uncontrolle d E11.65 and Genital warts A63.0 [facility] [address] [id number] [address] [place] [address] Apr, [facility] [address] [facility] [id number] [address] [place] [address] Mar, [facility] [address] [facility] [id number] [address] [place] [address] Mar, [facility] [address] [facility] [id number] [address] [place] [address] Mar, Family history of diabetes m ellitus V18.0 and Weight loss R63.4 [facility] [address] [place] [id number] [place] [address] Mar, Genital warts A63.0 and Fami ly history of diabetes mellitus V18.0 [facility] [address] [facility] [id number] [place] [address] Feb, [place] [address] [address] Jan, [facility] [address] [place] [id number] [place] [address] Jan, Perianal venereal warts A63. 0 [facility] [address] [place] [id number] [address] [place] [address] Jan, Urethritis N34.2 and Anxiety F41.9 [facility] [address] [address] Jan, [facility] [address] [place] [id number] [place] [address] Jan, Urinary tract infection, sit e unspecified N39.0 [facility] [address] [facility] [id number] [address] [place] [address] Jan, [facility] [address] [place] [id number] [place] [address] Dec, [facility] [address] [place] [id number] [address] [place] [address] Dec, HPV (human papilloma virus) anogenital infection A63.0 ; Anxiety F41.9 and Gastroesophageal reflux disease without esophagitis K21.9 [facility] [address] [place] [id number] [address] [place] [address] Sep, Blood in stool 578.1 [facility] [address] [place] [id number] [address] [place] [address] Aug, Blood in stool 578.1 [facility] [address] [place] [id number] [address] [place] [address] Aug, Anxiety 300.00 and Blood in stool 578.1 [facility] [address] [place] [id number] [address] [place] [address] July, [place] [address] [place] [id number] [place] [address] July, Family history of diabetes m ellitus V18.0 [place] [address] [address] July, Family history of diabetes m ellitus V18.0 ; Family history of thyroid disease V18.19 ; Polyuria 788.42 ; Polydipsia 783.5 ; Alopecia 704.00 and Fatigue 780.79 [place] [address] [place] [id number] [address] [place] [address] Jun, [place] [address] [place] [id number] [address] [place] [address] Jun, [facility] [address] [place] [id number] [address] [place] [address] Mar, [facility] [address] [place] [id number] [address] [place] [address] Mar, [facility] [address] [place] [id number] [address] [place] [address] Mar, [facility] [address] [place] [id number] [address] [place] [address] Mar, [facility] [address] [id number] [address] [place] [address], [place] [address] Mar, [facility] [address] [id number] [address] [place] [address], [place] [address] Mar, [facility] [address] [id number] [address] [place] [address], [place] [address] Mar, [facility] [address] [id number] [address] [place] [address], [place] [address] Mar, [facility] [address] [id number] [address] [place] [address], [place] [address] Mar, [facility] [address] [id number] [address] [place] [address], [place] [address] Mar, [facility] [address] [id number] [address] [place] [address], [place] [address] Feb, [facility] [address] [id number] [address] [place] [address], [place] [address] Feb, [facility] [address] [id number] [address] [place] [address], [place] [address] Jan, [facility] [address] [id number] [address] [place] [address], [place] [address] Jan, [facility] [address] [id number] [address] [place] [address], [place] [address] Jan, [facility] [address] [id number] [address] [place] [address], [place] [address] Jan, [facility] [address] [id number] [address] [place] [address], [place] [address] Dec, [facility] [address] [id number] [address] [place] [address], [place] [address] Dec, [facility] [address] [id number] [address] [place] [address], [place] [address] Nov, [facility] [address] [id number] [address] [place] [address], [place] [address] Nov, [facility] [address] [id number] [facility] [place] [address] Oct, [facility] [address] [id number] [facility] [place] [address] Oct, [facility] [address] [id number] [facility] [place] [address] Oct, [facility] [address] [id number] [address] [place] [address], [place] [address] Oct, [facility] [address] [id number] [facility] [place] [address] Oct, [facility] [address] [id number] [address] [place] [address], [place] [address] Oct, [facility] [address] [id number] [address] [place] [address], [place] [address] Oct, [facility] [address] [id number] [address] [place] [address], [place] [address] Oct, [facility] [address] [id number] [address] [place] [address], [place] [address] Sep, [facility] [address] [id number] [address] [place] [address], [place] [address] Sep, [facility] [address] [id number] [address] [place] [address], [place] [address] Sep, [facility] [address] [id number] [address] [place] [address], [place] [address] Sep, [facility] [address] [id number] [address] [place] [address], [place] [address] Aug, [facility] [address] [id number] [address] [place] [address], [place] [address] Aug, [facility] [address] [id number] [address] [place] [address], [place] [address] Aug, [facility] [address] [id number] [address] [place] [address], [place] [address] Aug, [facility] [address] [id number] [address] [place] [address], [place] [address] July, [facility] [address] [id number] [address] [place] [address], [place] [address] July, [facility] [address] [id number] [address] [place] [address], [place] [address] July, [facility] [address] [id number] [address] [place] [address], [place] [address] July, [facility] [address] [id number] [address] [place] [address], [place] [address] July, [facility] [facility] [address] [id number] [address] [place] [address], [place] [address] July, [facility] [address] [id number] [address] [place] [address], [place] [address] Jun, [facility] [address] [id number] [address] [place] [address], [place] [address] Jun, [facility] [address] [id number] [address] [place] [address], [place] [address] Jun, [facility] [address] [id number] [address] [place] [address], [place] [address] Jun, [facility] [address] [id number] [address] [place] [address], [place] [address] Jun, [facility] [address] [id number] [address] [place] [address], [place] [address] Jun, [facility] [address] [id number] [address] [place] [address], [place] [address] Jun, [facility] [address] [id number] [address] [place] [address], [place] [address] Jun, [facility] [address] [id number] [address] [place] [address], [place] [address] May, [facility] [address] [id number] [address] [place] [address], [place] [address] May, [facility] [address] [id number] [address] [place] [address], [place] [address] May, [facility] [address] [id number] [address] [place] [address], [place] [address] Apr, [facility] [address] [id number] [address] [place] [address], [place] [address] Apr, [facility] [address] [id number] [address] [place] [address], [place] [address] Apr, [facility] [address] [id number] [address] [place] [address], [place] [address] Apr, [facility] [address] [id number] [address] [place] [address], [place] [address] Mar, [facility] [address] [id number] [address] [place] [address], [place] [address] Mar, [facility] [address] [id number] [address] [place] [address], [place] [address] Mar, [facility] [address] [id number] [address] [place] [address], [place] [address] Mar, [facility] [address] [id number] [address] [place] [address], [place] [address] Mar, [facility] [address] [id number] [address] [place] [address], [place] [address] Mar, [facility] [address] [id number] [address] [place] [address], [place] [address] Feb, [facility] [address] [id number] [address] [place] [address], [place] [address] Feb, [facility] [address] [id number] [address] [place] [address], [place] [address] Jan, [facility] [address] [id number] [address] [place] [address], [place] [address] Jan, [facility] [address] [id number] [address] [place] [address], [place] [address] Jan, [facility] [address] [id number] [address] [place] [address], [place] [address] Jan, [facility] [address] [id number] [address] [place] [address], [place] [address] Jan, [facility] [address] [id number] [address] [place] [address], [place] [address] Jan, [facility] [address] [id number] [address] [place] [address], [place] [address] Jan, [facility] [address] [id number] [address] [place] [address], [place] [address] Dec, [facility] [address] [id number] [address] [place] [address], [place] [address] Dec, [facility] [address] [id number] [address] [place] [address], [place] [address] Nov, [facility] [address] [id number] [address] [place] [address], [place] [address] Nov, [facility] [address] [id number] [address] [place] [address], [place] [address] Nov, [facility] [address] [id number] [address] [place] [address], [place] [address] Oct, [facility] [address] [id number] [address] [place] [address], [place] [address] Oct, [facility] [address] [id number] [address] [place] [address], [place] [address] Oct, [facility] [address] [id number] [address] [place] [address], [place] [address] Oct, [facility] [address] [id number] [address] [place] [address], [place] [address] Sep, [facility] [address] [id number] [address] [place] [address] Sep, [facility] [address] [id number] [address] [place] [address] Aug, [facility] [address] [id number] [address] [place] [address] Aug, [facility] [address] [id number] [address] [place] [address] Aug, [facility] [address] [id number] [address] [place] [address] Aug, [facility] [address] [id number] [address] [place] [address] July, [facility] [address] [id number] [address] [place] [address] July, [facility] [address] [id number] [address] [place] [address] July, [facility] [address] [id number] [address] [place] [address] July, [facility] [address] [id number] [address] [place] [address] Jun, [facility] [address] [id number] [address] [place] [address] Jun, [facility] [address] [id number] [address] [place] [address] Feb, [facility] [address] [id number] [address] [place] [address] Feb, [facility] [address] [id number] [address] [place] [address] Mar, IMMUNIZATIONS No Known Immunizations SOCIAL HISTORY [...]
--- OUTSIDE RECORDS SUMMARY | 2019-08-16 14:08 | XMS REPORT ---
Author Author Joseph MARIA Organization [facility] Address [address] [place] [address] Care Team Providers Care Enrollment Nurse Name Role Phone MIRELLA MARIA Unavailable PROBLEMS Type Condition ICD9-CM Code ZIO54-SD Code Onset Dates Condition S tatus SNOMED Code Problem Mood disorder F39 Active 648508 05 Problem Low back pain M54.5 Active 899288 005 Problem Acquired hypothyroidism E03.9 Active 117525386 Problem Diabetes type 2, uncontrolled E11.65 Active 822899951 Problem Diabetes type 2, controlled E11.9 Ac tive 61546480 Problem Controlled type 2 diabetes m ellitus without complication, without long- term current use of insulin E11.9 Active 437847078 Problem Uncontrolled type 2 diabetes mellitus with hyperglycemia E11.65 Active 456276110 Problem Hypertension, benign I10 Active 53121988 Problem Other chronic pain G89.29 Active 8 0269412 Problem Shoulder pain, right M25.511 Active 74943029 Problem Cervical radiculopathy M54.12 Active 23634930 Problem History of urethral stricture Z87.448 Active 220081305 Problem retirement current use of insulin Z79.4 Active 798266832 Problem Type 2 diabetes mellitus without complications E11 .9 Active 304867182 ALLERGIES No Information ENCOUNTERS Encounter Location Date Diagnosis [facility] [address] [facility] [id number] [address] [place] [address] Feb, Controlled type 2 diabetes m ellitus without complication, without long-term current use of insulin E11.9 [facility] [address] [facility] [id number] [address] [place] [address] 09 Feb, 2019 Uncontrolled type 2 diabetes mellitus with hyperglycemia E11.65 ; Other chronic pain G89.29 ; Pain in right shoulder M25.511 and Thoracic spine pain M54.6 [facility] [address] [facility] [id number] [address] [place] [address] Nov, [facility] [address] [id number] [address] [place] [address] Aug, Diabetes type 2, uncontrolle d E11.65 [facility] [address] [facility] [id number] [address] [place] [address] July, [facility] [address] [id number] [address] [place] [id number] July, Dental examination Z01.20 an d Caries K02.9 [facility] [address] [id number] [address] [place] [address] Jun, Controlled type 2 diabetes m ellitus without complication, without long-term current use of insulin E11.9 [facility] [address] [facility] [id number] [address] [place] [address] May, Controlled type 2 diabetes m ellitus without complication, without long-term current use of insulin E11.9 [facility] [address] [facility] [id number] [address] [place] [address] Apr, [facility] [address] [facility] [id number] [address] [place] [address] Mar, Controlled type 2 diabetes m ellitus without complication, without long-term current use of insulin E11.9 [facility] [address] [facility] [id number] [address] [place] [address] Jan, [facility] [address] [facility] [id number] [address] [place] [address] Dec, Diabetes type 2, uncontrolle d E11.65 [facility] [address] 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 and Cervicalgia M54.2 [facility] [address] [id number] [address] [place] [address] Dec, Controlled type 2 diabetes m ellitus without complication, without long-term current use of insulin E11.9 [facility] [facility] [id number] [id number] [address] [place] [address] Nov, [facility] [address] [id number] [address] [place] [address] Oct, Diabetes type 2, uncontrolle d E11.65 [facility] [address] [id number] [address] [place] [address] Sep, Diabetes type 2, uncontrolle d E11.65 [facility] [address] [id number] [address] [place] [address] Jun, Controlled type 2 diabetes m ellitus without complication, without long-term current use of insulin E11.9 [facility] [address] [id number] [address] [place] [address] May, [facility] [address] [id number] [address] [place] [address] 16 May, 2017 Radiculopathy of cervical re gion M54.12 [facility] [place] [address] [id number] [address] [place] [address] 14 May, 2017 Controlled type 2 diabetes m ellitus without complication, without long-term current use of insulin E11.9 [place] [address] [id number] [address] [place] [address] May, [place] [address] [id number] [address] [place] [address] May, Controlled type 2 diabetes m ellitus without complication, without long-term current use of insulin E11.9 [place] [address] [id number] [address] [place] [address] May, Controlled type 2 diabetes m ellitus without complication, without long-term current use of insulin E11.9 [facility] [address] [id number] [address] [place] [address] May, Controlled type 2 diabetes m ellitus without complication, without long-term current use of insulin E11.9 [facility] [address] [id number] [address] [place] [address] Apr, [facility] [address] [id number] [address] [place] [address] Apr, Controlled type 2 diabetes m ellitus without complication, without long-term current use of insulin E11.9 [place] [address] [id number] [address] [place] [address] Apr, [place] [address] [id number] [address] [place] [address] Apr, Controlled type 2 diabetes m ellitus without complication, without long-term current use of insulin E11.9 [place] [address] [id number] [address] [place] [address] Mar, [place] [address] [id number] [address] [place] [address] Mar, Radiculopathy of cervical re gion M54.12 [place] [address] [id number] [address] [place] [address] Mar, Controlled type 2 diabetes m ellitus without complication, without long-term current use of insulin E11.9 [place] [address] [facility] [id number] [address] [place] [address] Feb, Cervical radiculopathy M54.1 2 ; Acute cystitis without hematuria N30.00 and History of urethral stricture Z87.448 [place] [address] [facility] [id number] [address] [place] [address] Feb, Controlled type 2 diabetes m ellitus without complication, without long-term current use of insulin E11.9 [place] [address] [facility] [id number] [address] [place] [address] Feb, [facility] [address] [id number] [address] [place] [address] Jan, Diabetes type 2, uncontrolle d E11.65 [facility] [address] [id number] [address] [place] [address] Jan, [facility] [address] [id number] [address] [place] [address] Jan, Controlled type 2 diabetes m ellitus without complication, without long-term current use of insulin E11.9 ; Chest wall pain R07.89 and Thoracic spine pain M54.6 [facility] [address] [id number] [address] [place] [address] Dec, [facility] [address] [id number] [address] [place] [address] Dec, [facility] [address] [id number] [address] [place] [address] Nov, [facility] [address] [id number] [address] [place] [address] Nov, [facility] [address] [id number] [address] [place] [address] Nov, Trichomonas exposure Z20.2 [facility] [address] [id number] [address] [place] [address] Oct, [facility] [address] [id number] [address] [place] [phone] Oct, [facility] [address] [id number] [address] [place] [address] Oct, [facility] [address] [id number] [address] [place] [address] Oct, [facility] [address] [id number] [address] [place] [phone] Sep, [facility] [address] [id number] [address] [place] [address] Sep, [facility] [address] [id number] [address] [place] [address], [place] [address] Aug, [facility] [address] [id number] [address] [place] [address], [place] [id number] Aug, [facility] [address] [id number] [address] [place] [address], [place] [address] Aug, [facility] [address] [id number] [address] [place] [address], [place] [address] Aug, [facility] [address] [id number] [address] [place] [address], [place] [address] July, Diabetes type 2, controlled E11.9 [facility] [address] [id number] [address] [place] [address], [place] [id number] July, [facility] [address] [id number] [address] [place] [address], [place] [id number] July, [facility] [address] [id number] [address] [place] [address], [place] [address] July, [facility] [address] [id number] [address] [place] [address], [place] [id number] July, [facility] [address] [id number] [address] [place] [address], [place] [address] Jun, [facility] [address] [id number] [address] [place] [address], [place] [id number] Jun, [facility] [address] [id number] [address] [place] [address], [place] [id number] May, [facility] [address] [id number] [address] [place] [address], [place] [id number] May, [facility] [address] [id number] [address] [place] [address], [place] [id number] May, [facility] [address] [id number] [address] [place] [address], [place] [address] May, Controlled type 2 diabetes m ellitus without complication, without long-term current use of insulin E11.9 [facility] [address] [id number] [address] [place] [phone] Apr, [facility] [address] [id number] [address] [place] [phone] Apr, [facility] [address] [id number] [address] [place] [address] Mar, [facility] [address] [id number] [address] [place] [address] Mar, [facility] [address] [id number] [address] [place] [phone] Feb, [facility] [address] [id number] [address] [place] [address] Feb, [facility] [address] [id number] [address] [place] [phone] Jan, [facility] [address] [id number] [address] [place] [address] Jan, [facility] [address] [id number] [address] [place] [address] Jan, [facility] [address] [id number] [address] [place] [address] Dec, [facility] [address] [id number] [address] [place] [address] Dec, [facility] [address] [id number] [address] [place] [address] Dec, [facility] [address] [id number] [address] [place] [address] 29 Nov, 2015 Diabetes type 2, uncontrolle d E11.65 [facility] [address] [id number] [address] [place] [address] 14 Nov, 2015 [facility] [address] [id number] [address] [place] [address] Nov, [facility] [address] [id number] [address] [place] [address] Oct, [facility] [address] [id number] [address] [place] [phone] Oct, [facility] [address] [id number] [address] [place] [address] Sep, Controlled type 2 diabetes m ellitus without complication, without long-term current use of insulin E11.9 [facility] [address] [id number] [address] [place] [address] Sep, [facility] [address] [id number] [address] [place] [address] Sep, [facility] [address] [id number] [address] [place] [address] Sep, [facility] [address] [id number] [address] [place] [address] Sep, [facility] [address] [id number] [address] [place] [address] Aug, Diabetes type 2, controlled E11.9 ; Anxiety F41.9 ; Carpal tunnel syndrome, left upper limb G56.02 and Carpal tunnel syndrome, right upper limb G56.01 [facility] [address] [id number] [address] [place] [address] Aug, Urethritis N34.2 [facility] [address] [id number] [address] [place] [address] Aug, [facility] [address] [id number] [address] [place] [address] July, Genital warts A63.0 [facility] [address] [id number] [address] [place] [address] July, [facility] [address] [id number] [address] [place] [address] July, Genital warts A63.0 [facility] [address] [id number] [address] [place] [address] July, Anxiety F41.9 [facility] [address] [id number] [address] [place] [address] Jun, Genital warts A63.0 [facility] [address] [id number] [address] [place] [address] Jun, Anxiety F41.9 [facility] [address] [id number] [address] [place] [address] May, Genital warts A63.0 and Diab etes type 2, uncontrolled E11.65 [facility] [address] [id number] [address] [place] [address] May, [facility] [address] [id number] [address] [place] [address] May, [facility] [address] [id number] [address] [place] [address] Apr, [facility] [address] [id number] [address] [place] [address] Apr, [facility] [address] [id number] [address] [place] [address] Apr, Diabetes type 2, controlled E11.9 [facility] [address] [id number] [address] [place] [address] Apr, Genital warts A63.0 [facility] [address] [id number] [address] [place] [address] Apr, [facility] [address] [id number] [address] [place] [address] Apr, Diabetes type 2, uncontrolle d E11.65 and Genital warts A63.0 [facility] [address] [id number] [address] [place] [address] Apr, [facility] [address] [facility] [id number] [address] [place] [address] Mar, [facility] [address] [facility] [id number] [address] [place] [id number] Mar, [facility] [address] [facility] [id number] [address] [place] [address] Mar, Family history of diabetes m ellitus V18.0 and Weight loss R63.4 [facility] [address] [place] [id number] [place] [address] Mar, Genital warts A63.0 and Fami ly history of diabetes mellitus V18.0 [facility] [address] [facility] [id number] [place] [address] Feb, [place] [address] [id number] Jan, [facility] [address] [place] [id number] [place] [address] Jan, Perianal venereal warts A63. 0 [facility] [address] [place] [id number] [address] [place] [address] Jan, Urethritis N34.2 and Anxiety F41.9 [facility] [address] [id number] Jan, [facility] [address] [place] [id number] [place] [address] Jan, Urinary tract infection, sit e unspecified N39.0 [facility] [address] [facility] [id number] [address] [place] [phone] Jan, [facility] [address] [place] [id number] [place] [address] Dec, [facility] [address] [place] [id number] [address] [place] [address] Dec, HPV (human papilloma virus) anogenital infection A63.0 ; Anxiety F41.9 and Gastroesophageal reflux disease without esophagitis K21.9 [facility] [address] [place] [id number] [address] [place] [address] Sep, Blood in stool 578.1 [facility] [address] [place] [id number] [address] [place] [address] Aug, Blood in stool 578.1 [facility] [address] [place] [id number] [address] [place] [address] Aug, Anxiety 300.00 and Blood in stool 578.1 [facility] [address] [place] [id number] [address] [place] [address] July, [place] [address] [place] [id number] [place] [address] July, Family history of diabetes m ellitus V18.0 [place] [address] [address] July, Family history of diabetes m ellitus V18.0 ; Family history of thyroid disease V18.19 ; Polyuria 788.42 ; Polydipsia 783.5 ; Alopecia 704.00 and Fatigue 780.79 [place] [address] [place] [id number] [address] [place] [address] Jun, [place] [address] [place] [id number] [address] [place] [address] Jun, [facility] [address] [place] [id number] [address] [place] [address] Mar, [facility] [address] [place] [id number] [address] [place] [address] Mar, [facility] [address] [place] [id number] [address] [place] [phone] Mar, [facility] [address] [place] [id number] [address] [place] [phone] Mar, [facility] [address] [id number] [address] [place] [address], [place] [address] Mar, [facility] [address] [id number] [address] [place] [address], [place] [address] Mar, [facility] [address] [id number] [address] [place] [address], [place] [address] Mar, [facility] [address] [id number] [address] [place] [address], [place] [address] Mar, [facility] [address] [id number] [address] [place] [address], [place] [address] Mar, [facility] [address] [id number] [address] [place] [address], [place] [address] Mar, [facility] [address] [id number] [address] [place] [address], [place] [address] Feb, [facility] [address] [id number] [address] [place] [address], [place] [address] Feb, [facility] [address] [id number] [address] [place] [address], [place] [id number] Jan, [facility] [address] [id number] [address] [place] [address], [place] [id number] Jan, [facility] [address] [id number] [address] [place] [address], [place] [id number] Jan, [facility] [address] [id number] [address] [place] [address], [place] [id number] Jan, [facility] [address] [id number] [address] [place] [address], [place] [id number] Dec, [facility] [address] [id number] [address] [place] [address], [place] [id number] Dec, [facility] [address] [id number] [address] [place] [address], [place] [id number] Nov, [facility] [address] [id number] [address] [place] [address], [place] [id number] Nov, [facility] [address] [id number] [facility] [id number] Oct, [facility] [address] [id number] [facility] [id number] Oct, [facility] [address] [id number] [facility] [id number] Oct, [facility] [address] [id number] [address] [place] [address], [place] [id number] Oct, [facility] [address] [id number] [facility] [place] [id number] Oct, [facility] [address] [id number] [address] [place] [address], [place] [id number] Oct, [facility] [address] [id number] [address] [place] [address], [place] [id number] Oct, [facility] [address] [id number] [address] [place] [address], [place] [id number] Oct, [facility] [address] [id number] [address] [place] [address], [place] [id number] Sep, [facility] [address] [id number] [address] [place] [address], [place] [id number] Sep, [facility] [address] [id number] [address] [place] [address], [place] [id number] Sep, [facility] [address] [id number] [address] [place] [address], [place] [id number] Sep, [facility] [address] [id number] [address] [place] [address], [place] [id number] Aug, [facility] [address] [id number] [address] [place] [address], [place] [id number] Aug, [facility] [address] [id number] [address] [place] [address], [place] [id number] Aug, [facility] [address] [id number] [address] [place] [address], [place] [id number] Aug, [facility] [address] [id number] [address] [place] [address], [place] [id number] July, [facility] [address] [id number] [address] [place] [address], [place] [id number] July, [facility] [facility] [address] [id number] [address] [place] [address], [place] [id number] July, [facility] [address] [id number] [address] [place] [address], [place] [id number] July, [facility] [address] [id number] [address] [place] [address], [place] [id number] July, [facility] [address] [id number] [address] [place] [address], [place] [id number] July, [facility] [address] [id number] [address] [place] [address], [place] [id number] Jun, [facility] [address] [id number] [address] [place] [address], [place] [id number] Jun, [facility] [address] [id number] [address] [place] [address], [place] [id number] Jun, [facility] [address] [id number] [address] [place] [address], [place] [id number] Jun, [facility] [address] [id number] [address] [place] [address], [place] [id number] Jun, [facility] [address] [id number] [address] [place] [address], [place] [id number] Jun, [facility] [address] [id number] [address] [place] [address], [place] [id number] Jun, [facility] [address] [id number] [address] [place] [address], [place] [id number] Jun, [facility] [address] [id number] [address] [place] [address], [place] [id number] May, [facility] [address] [id number] [address] [place] [address], [place] [id number] May, [facility] [address] [id number] [address] [place] [address], [place] [id number] May, [facility] [address] [id number] [address] [place] [address], [place] [id number] Apr, [facility] [address] [id number] [address] [place] [address], [place] [id number] Apr, [facility] [address] [id number] [address] [place] [address], [place] [id number] Apr, [facility] [address] [id number] [address] [place] [address], [place] [id number] Apr, [facility] [address] [id number] [address] [place] [address], [place] [id number] Mar, [facility] [address] [id number] [address] [place] [address], [place] [id number] Mar, [facility] [address] [id number] [address] [place] [address], [place] [id number] Mar, [facility] [address] [id number] [address] [place] [address], [place] [id number] Mar, [facility] [address] [id number] [address] [place] [address], [place] [id number] Mar, [facility] [address] [id number] [address] [place] [address], [place] [id number] Mar, [facility] [address] [id number] [address] [place] [address], [place] [id number] Feb, [facility] [address] [id number] [address] [place] [address], [place] [id number] Feb, [facility] [address] [id number] [address] [place] [address], [place] [id number] Jan, [facility] [address] [id number] [address] [place] [address], [place] [id number] Jan, [facility] [address] [id number] [address] [place] [address], [place] [id number] Jan, [facility] [address] [id number] [address] [place] [address], [place] [id number] Jan, [facility] [address] [id number] [address] [place] [address], [place] [id number] Jan, [facility] [address] [id number] [address] [place] [address], [place] [id number] Jan, [facility] [address] [id number] [address] [place] [address], [place] [id number] Jan, [facility] [address] [id number] [address] [place] [address], [place] [id number] Dec, [facility] [address] [id number] [address] [place] [address], [place] [id number] Dec, [facility] [address] [id number] [address] [place] [address], [place] [id number] Nov, [facility] [address] [id number] [address] [place] [address], [place] [id number] Nov, [facility] [address] [id number] [address] [place] [address], [place] [id number] Nov, [facility] [address] [id number] [address] [place] [address], [place] [id number] Oct, [facility] [address] [id number] [address] [place] [address], [place] [id number] Oct, [facility] [address] [id number] [address] [place] [address], [place] [id number] Oct, [facility] [address] [id number] [address] [place] [address], [place] [id number] Oct, [facility] [address] [id number] [address] [place] [address], [place] [id number] Sep, [facility] [address] [id number] [address] [place] [id number] Sep, [facility] [address] [id number] [address] [place] [id number] Aug, [facility] [address] [id number] [address] [place] [id number] Aug, [facility] [address] [id number] [address] [place] [id number] Aug, [facility] [address] [id number] [address] [place] [id number] Aug, [facility] [address] [id number] [address] [place] [id number] July, [facility] [address] [id number] [address] [place] [id number] July, [facility] [address] [id number] [address] [place] [id number] July, [facility] [address] [id number] [address] [place] [id number] July, [facility] [address] [id number] [address] [place] [id number] Jun, [facility] [address] [id number] [address] [place] [id number] Jun, [facility] [address] [id number] [address] [place] [id number] Feb, [facility] [address] [id number] [address] [place] [id number] Feb, [facility] [address] [id number] [address] [place] [id number] Mar, IMMUNIZATIONS No Known Immunizations SOCIAL HISTORY [...]
--- OUTSIDE RECORDS SUMMARY | 2019-08-16 14:08 | XMS REPORT ---
Author Author Joseph MARIA Organization [facility] Address [address] [place] [address] Care Team Providers Care Associate Financial Planner Name Role Phone CROW MIRELLA Unavailable PROBLEMS Type Condition ICD9-CM Code WUK39-AO Code Onset Dates Condition S tatus SNOMED Code Problem Mood disorder F39 Active 582814 05 Problem Low back pain M54.5 Active 707788 005 Problem Acquired hypothyroidism E03.9 Active 360653845 Problem Diabetes type 2, uncontrolled E11.65 Active 577802975 Problem Diabetes type 2, controlled E11.9 Ac tive 76503752 Problem Controlled type 2 diabetes m ellitus without complication, without long- term current use of insulin E11.9 Active 027679287 Problem Uncontrolled type 2 diabetes mellitus with hyperglycemia E11.65 Active 714382387 Problem Hypertension, benign I10 Active 69374019 Problem Other chronic pain G89.29 Active 8 8773408 Problem Shoulder pain, right M25.511 Active 76605793 Problem Cervical radiculopathy M54.12 Active 57650123 Problem History of urethral stricture Z87.448 Active 053698913 Problem FPC current use of insulin Z79.4 Active 796107862 Problem Type 2 diabetes mellitus without complications E11 .9 Active [id number] ALLERGIES No Information ENCOUNTERS Encounter Location Date Diagnosis [facility] [address] [facility] [id number] [address] [place] [address] Feb, Controlled type 2 diabetes m ellitus without complication, without long-term current use of insulin E11.9 [facility] [address] [facility] [id number] [address] [place] [address] 09 Feb, 2019 Uncontrolled type 2 diabetes mellitus with hyperglycemia E11.65 ; Other chronic pain G89.29 ; Pain in right shoulder M25.511 and Thoracic spine pain M54.6 [facility] [address] [facility] [id number] [address] [place] [address] Nov, [facility] [address] [id number] [address] [place] [address] Aug, Diabetes type 2, uncontrolle d E11.65 [facility] [address] [facility] [id number] [address] [place] [address] July, [facility] [address] [id number] [address] [place] [id number] July, Dental examination Z01.20 an d Caries K02.9 [facility] [address] [id number] [address] [place] [address] Jun, Controlled type 2 diabetes m ellitus without complication, without long-term current use of insulin E11.9 [facility] [address] [facility] [id number] [address] [place] [address] May, Controlled type 2 diabetes m ellitus without complication, without long-term current use of insulin E11.9 [facility] [address] [facility] [id number] [address] [place] [address] Apr, [facility] [address] [facility] [id number] [address] [place] [address] Mar, Controlled type 2 diabetes m ellitus without complication, without long-term current use of insulin E11.9 [facility] [address] [facility] [id number] [address] [place] [address] Jan, [facility] [address] [facility] [id number] [address] [place] [address] Dec, Diabetes type 2, uncontrolle d E11.65 [facility] [address] [facility] [id number] [address] [place] [address] Dec, Type 2 diabetes mellitus wit hout complications E11.9 ; emt intermediate current use of insulin Z79.4 and Cervicalgia M54.2 [facility] [address] [facility] [id number] [address] [place] [address] Dec, Type 2 diabetes mellitus wit hout complications E11.9 ; emt intermediate current use of insulin Z79.4 and Cervicalgia M54.2 [facility] [address] [id number] [address] [place] [address] Dec, Controlled type 2 diabetes m ellitus without complication, without long-term current use of insulin E11.9 [facility] [id number] [id number] [address] [place] [address] Nov, [place] [address] [id number] [address] [place] [address] Oct, Diabetes type 2, uncontrolle d E11.65 [place] [address] [id number] [address] [place] [address] Sep, Diabetes type 2, uncontrolle d E11.65 [place] [address] [id number] [address] [place] [address] Jun, Controlled type 2 diabetes m ellitus without complication, without long-term current use of insulin E11.9 [facility] [address] [id number] [address] [place] [address] May, [place] [address] [id number] [address] [place] [address] 16 May, 2017 Radiculopathy of cervical re gion M54.12 [place] [address] [id number] [address] [place] [address] 14 May, 2017 Controlled type 2 diabetes m ellitus without complication, without long-term current use of insulin E11.9 [place] [id number] [id number] [address] [place] [address] May, [place] [address] [id number] [address] [place] [address] May, Controlled type 2 diabetes m ellitus without complication, without long-term current use of insulin E11.9 [place] [address] [id number] [address] [place] [address] May, Controlled type 2 diabetes m ellitus without complication, without long-term current use of insulin E11.9 [facility] [address] [id number] [address] [place] [address] May, Controlled type 2 diabetes m ellitus without complication, without long-term current use of insulin E11.9 [facility] [address] [id number] [address] [place] [address] Apr, [facility] [address] [id number] [address] [place] [address] Apr, Controlled type 2 diabetes m ellitus without complication, without long-term current use of insulin E11.9 [place] [address] [id number] [address] [place] [address] Apr, [place] [address] [id number] [address] [place] [address] Apr, Controlled type 2 diabetes m ellitus without complication, without long-term current use of insulin E11.9 [place] [address] [id number] [address] [place] [address] Mar, [place] [address] [id number] [address] [place] [address] Mar, Radiculopathy of cervical re gion M54.12 [place] [address] [id number] [address] [place] [address] Mar, Controlled type 2 diabetes m ellitus without complication, without long-term current use of insulin E11.9 [place] [address] [facility] [id number] [address] [place] [address] Feb, Cervical radiculopathy M54.1 2 ; Acute cystitis without hematuria N30.00 and History of urethral stricture Z87.448 [place] [address] [facility] [id number] [address] [place] [address] Feb, Controlled type 2 diabetes m ellitus without complication, without long-term current use of insulin E11.9 [place] [address] [facility] [id number] [address] [place] [address] Feb, [facility] [address] [id number] [address] [place] [address] Jan, Diabetes type 2, uncontrolle d E11.65 [facility] [address] [id number] [address] [place] [address] Jan, [facility] [address] [id number] [address] [place] [address] Jan, Controlled type 2 diabetes m ellitus without complication, without long-term current use of insulin E11.9 ; Chest wall pain R07.89 and Thoracic spine pain M54.6 [facility] [address] [id number] [address] [place] [address] Dec, [facility] [address] [id number] [address] [place] [address] Dec, [facility] [address] [id number] [address] [place] [address] Nov, [facility] [address] [id number] [address] [place] [address] Nov, [facility] [address] [id number] [address] [place] [address] Nov, Trichomonas exposure Z20.2 [facility] [address] [id number] [address] [place] [address] Oct, [facility] [address] [id number] [address] [place] [address] Oct, [facility] [address] [id number] [address] [place] [address] Oct, [facility] [address] [id number] [address] [place] [address] Oct, [facility] [address] [id number] [address] [place] [address] Sep, [facility] [address] [id number] [address] [place] [address] Sep, [facility] [address] [id number] [address] [place] [address], [place] [address] Aug, [facility] [address] [id number] [address] [place] [address], [place] [address] Aug, [facility] [address] [id number] [address] [place] [address], [place] [address] Aug, [facility] [address] [id number] [address] [place] [address], [place] [address] Aug, [facility] [address] [id number] [address] [place] [address], [place] [address] July, Diabetes type 2, controlled E11.9 [facility] [address] [id number] [address] [place] [address], [place] [address] July, [facility] [address] [id number] [address] [place] [address], [place] [address] July, [facility] [address] [id number] [address] [place] [address], [place] [address] July, [facility] [address] [id number] [address] [place] [address], [place] [address] July, [facility] [address] [id number] [address] [place] [address], [place] [address] Jun, [facility] [address] [id number] [address] [place] [address], [place] [address] Jun, [facility] [address] [id number] [address] [place] [address], [place] [address] May, [facility] [address] [id number] [address] [place] [address], [place] [address] May, [facility] [address] [id number] [address] [place] [address], [place] [address] May, [facility] [address] [id number] [address] [place] [address], [place] [address] May, Controlled type 2 diabetes m ellitus without complication, without long-term current use of insulin E11.9 [facility] [address] [id number] [address] [place] [address] Apr, [facility] [address] [id number] [address] [place] [address] Apr, [facility] [address] [id number] [address] [place] [address] Mar, [facility] [address] [id number] [address] [place] [address] Mar, [facility] [address] [id number] [address] [place] [address] Feb, [facility] [address] [id number] [address] [place] [address] Feb, [facility] [address] [id number] [address] [place] [address] Jan, [facility] [address] [id number] [address] [place] [address] Jan, [facility] [address] [id number] [address] [place] [address] Jan, [facility] [address] [id number] [address] [place] [address] Dec, [facility] [address] [id number] [address] [place] [address] Dec, [facility] [address] [id number] [address] [place] [address] Dec, [facility] [address] [id number] [address] [place] [address] 29 Nov, 2015 Diabetes type 2, uncontrolle d E11.65 [facility] [address] [id number] [address] [place] [address] 14 Nov, 2015 [facility] [address] [id number] [address] [place] [address] Nov, [facility] [address] [id number] [address] [place] [address] Oct, [facility] [address] [id number] [address] [place] [address] Oct, [facility] [address] [id number] [address] [place] [address] Sep, Controlled type 2 diabetes m ellitus without complication, without long-term current use of insulin E11.9 [facility] [address] [id number] [address] [place] [address] Sep, [facility] [address] [id number] [address] [place] [address] Sep, [facility] [address] [id number] [address] [place] [address] Sep, [facility] [address] [id number] [address] [place] [address] Sep, [facility] [address] [id number] [address] [place] [address] Aug, Diabetes type 2, controlled E11.9 ; Anxiety F41.9 ; Carpal tunnel syndrome, left upper limb G56.02 and Carpal tunnel syndrome, right upper limb G56.01 [facility] [address] [id number] [address] [place] [address] Aug, Urethritis N34.2 [facility] [address] [id number] [address] [place] [address] Aug, [facility] [address] [id number] [address] [place] [address] July, Genital warts A63.0 [facility] [address] [id number] [address] [place] [address] July, [facility] [address] [id number] [address] [place] [address] July, Genital warts A63.0 [facility] [address] [id number] [address] [place] [address] July, Anxiety F41.9 [facility] [address] [id number] [address] [place] [address] Jun, Genital warts A63.0 [facility] [address] [id number] [address] [place] [address] Jun, Anxiety F41.9 [facility] [address] [id number] [address] [place] [address] May, Genital warts A63.0 and Diab etes type 2, uncontrolled E11.65 [facility] [address] [id number] [address] [place] [address] May, [facility] [address] [id number] [address] [place] [address] May, [facility] [address] [id number] [address] [place] [address] Apr, [facility] [address] [id number] [address] [place] [address] Apr, [facility] [address] [id number] [address] [place] [address] Apr, Diabetes type 2, controlled E11.9 [facility] [address] [id number] [address] [place] [address] Apr, Genital warts A63.0 [facility] [address] [id number] [address] [place] [address] Apr, [facility] [address] [id number] [address] [place] [address] Apr, Diabetes type 2, uncontrolle d E11.65 and Genital warts A63.0 [facility] [address] [id number] [address] [place] [address] Apr, [facility] [address] [facility] [id number] [address] [place] [address] Mar, [facility] [address] [facility] [id number] [address] [place] [address] Mar, [facility] [address] [facility] [id number] [address] [place] [address] Mar, Family history of diabetes m ellitus V18.0 and Weight loss R63.4 [facility] [address] [place] [id number] [place] [address] Mar, Genital warts A63.0 and Fami ly history of diabetes mellitus V18.0 [facility] [address] [facility] [id number] [place] [address] Feb, [place] [address] [address] Jan, [facility] [address] [place] [id number] [place] [address] Jan, Perianal venereal warts A63. 0 [facility] [address] [place] [id number] [address] [place] [address] Jan, Urethritis N34.2 and Anxiety F41.9 [facility] [address] [address] Jan, [facility] [address] [place] [id number] [place] [address] Jan, Urinary tract infection, sit e unspecified N39.0 [facility] [address] [facility] [id number] [address] [place] [address] Jan, [facility] [address] [place] [id number] [place] [address] Dec, [facility] [address] [place] [id number] [address] [place] [address] Dec, HPV (human papilloma virus) anogenital infection A63.0 ; Anxiety F41.9 and Gastroesophageal reflux disease without esophagitis K21.9 [facility] [address] [place] [id number] [address] [place] [address] Sep, Blood in stool 578.1 [facility] [address] [place] [id number] [address] [place] [address] Aug, Blood in stool 578.1 [facility] [address] [place] [id number] [address] [place] [address] Aug, Anxiety 300.00 and Blood in stool 578.1 [facility] [address] [place] [id number] [address] [place] [address] July, [place] [address] [place] [id number] [place] [address] July, Family history of diabetes m ellitus V18.0 [place] [address] [address] July, Family history of diabetes m ellitus V18.0 ; Family history of thyroid disease V18.19 ; Polyuria 788.42 ; Polydipsia 783.5 ; Alopecia 704.00 and Fatigue 780.79 [place] [address] [place] [id number] [address] [place] [address] Jun, [place] [address] [place] [id number] [address] [place] [address] Jun, [facility] [address] [place] [id number] [address] [place] [address] Mar, [facility] [address] [place] [id number] [address] [place] [address] Mar, [facility] [address] [place] [id number] [address] [place] [address] Mar, [facility] [address] [place] [id number] [address] [place] [address] Mar, [facility] [address] [id number] [address] [place] [address], [place] [address] Mar, [facility] [address] [id number] [address] [place] [address], [place] [address] Mar, [facility] [address] [id number] [address] [place] [address], [place] [address] Mar, [facility] [address] [id number] [address] [place] [address], [place] [address] Mar, [facility] [address] [id number] [address] [place] [address], [place] [address] Mar, [facility] [address] [id number] [address] [place] [address], [place] [address] Mar, [facility] [address] [id number] [address] [place] [address], [place] [address] Feb, [facility] [address] [id number] [address] [place] [address], [place] [address] Feb, [facility] [address] [id number] [address] [place] [address], [place] [address] Jan, [facility] [address] [id number] [address] [place] [address], [place] [address] Jan, [facility] [address] [id number] [address] [place] [address], [place] [address] Jan, [facility] [address] [id number] [address] [place] [address], [place] [address] Jan, [facility] [address] [id number] [address] [place] [address], [place] [address] Dec, [facility] [address] [id number] [address] [place] [address], [place] [address] Dec, [facility] [address] [id number] [address] [place] [address], [place] [address] Nov, [facility] [address] [id number] [address] [place] [address], [place] [address] Nov, [facility] [address] [id number] [facility] [place] [address] Oct, [facility] [address] [id number] [facility] [place] [id number] Oct, [facility] [address] [id number] [facility] [place] [address] Oct, [facility] [address] [id number] [address] [place] [address], [place] [address] Oct, [facility] [address] [id number] [facility] [place] [address] Oct, [facility] [address] [id number] [address] [place] [address], [place] [address] Oct, [facility] [address] [id number] [address] [place] [address], [place] [id number] Oct, [facility] [address] [id number] [address] [place] [address], [place] [id number] Oct, [facility] [address] [id number] [address] [place] [address], [place] [id number] Sep, [facility] [address] [id number] [address] [place] [address], [place] [id number] Sep, [facility] [address] [id number] [address] [place] [address], [place] [address] Sep, [facility] [address] [id number] [address] [place] [address], [place] [id number] Sep, [facility] [address] [id number] [address] [place] [address], [place] [address] Aug, [facility] [address] [id number] [address] [place] [address], [place] [address] Aug, [facility] [address] [id number] [address] [place] [address], [place] [address] Aug, [facility] [address] [id number] [address] [place] [address], [place] [id number] Aug, [facility] [address] [id number] [address] [place] [address], [place] [id number] July, [facility] [address] [id number] [address] [place] [address], [place] [id number] July, [facility] [address] [id number] [address] [place] [address], [place] [address] July, [facility] [address] [id number] [address] [place] [address], [place] [id number] July, [facility] [address] [id number] [address] [place] [address], [place] [id number] July, [facility] [address] [id number] [address] [place] [address], [place] [id number] July, [facility] [facility] [address] [id number] [address] [place] [address], [place] [address] Jun, [facility] [address] [id number] [address] [place] [address], [place] [address] Jun, [facility] [address] [id number] [address] [place] [address], [place] [id number] Jun, [facility] [address] [id number] [address] [place] [address], [place] [id number] Jun, [facility] [address] [id number] [address] [place] [address], [place] [address] Jun, [facility] [address] [id number] [address] [place] [address], [place] [address] Jun, [facility] [address] [id number] [address] [place] [address], [place] [address] Jun, [facility] [address] [id number] [address] [place] [address], [place] [address] Jun, [facility] [address] [id number] [address] [place] [address], [place] [address] May, [facility] [address] [id number] [address] [place] [address], [place] [address] May, [facility] [address] [id number] [address] [place] [address], [place] [address] May, [facility] [address] [id number] [address] [place] [address], [place] [address] Apr, [facility] [address] [id number] [address] [place] [address], [place] [address] Apr, [facility] [address] [id number] [address] [place] [address], [place] [address] Apr, [facility] [address] [id number] [address] [place] [address], [place] [address] Apr, [facility] [address] [id number] [address] [place] [address], [place] [address] Mar, [facility] [address] [id number] [address] [place] [address], [place] [address] Mar, [facility] [address] [id number] [address] [place] [address], [place] [address] Mar, [facility] [address] [id number] [address] [place] [address], [place] [address] Mar, [facility] [address] [id number] [address] [place] [address], [place] [address] Mar, [facility] [address] [id number] [address] [place] [address], [place] [address] Mar, [facility] [address] [id number] [address] [place] [address], [place] [address] Feb, [facility] [address] [id number] [address] [place] [address], [place] [address] Feb, [facility] [address] [id number] [address] [place] [address], [place] [address] Jan, [facility] [address] [id number] [address] [place] [address], [place] [address] Jan, [facility] [address] [id number] [address] [place] [address], [place] [address] Jan, [facility] [address] [id number] [address] [place] [address], [place] [address] Jan, [facility] [address] [id number] [address] [place] [address], [place] [address] Jan, [facility] [address] [id number] [address] [place] [address], [place] [address] Jan, [facility] [address] [id number] [address] [place] [address], [place] [address] Jan, [facility] [address] [id number] [address] [place] [address], [place] [address] Dec, [facility] [address] [id number] [address] [place] [address], [place] [address] Dec, [facility] [address] [id number] [address] [place] [address], [place] [address] Nov, [facility] [address] [id number] [address] [place] [address], [place] [address] Nov, [facility] [address] [id number] [address] [place] [address], [place] [address] Nov, [facility] [address] [id number] [address] [place] [address], [place] [address] Oct, [facility] [address] [id number] [address] [place] [address], [place] [address] Oct, [facility] [address] [id number] [address] [place] [address], [place] [address] Oct, [facility] [address] [id number] [address] [place] [address], [place] [address] Oct, [facility] [address] [id number] [address] [place] [address], [place] [address] Sep, [facility] [address] [id number] [address] [place] [address] Sep, [facility] [address] [id number] [address] [place] [address] Aug, [facility] [address] [id number] [address] [place] [address] Aug, [facility] [address] [id number] [address] [place] [address] Aug, [facility] [address] [id number] [address] [place] [id number] Aug, [facility] [address] [id number] [address] [place] [address] July, [facility] [address] [id number] [address] [place] [id number] July, [facility] [address] [id number] [address] [place] [id number] July, [facility] [address] [id number] [address] [place] [id number] July, [facility] [address] [id number] [address] [place] [address] Jun, [facility] [address] [id number] [address] [place] [address] Jun, [facility] [address] [id number] [address] [place] [address] Feb, [facility] [address] [id number] [address] [place] [id number] Feb, [facility] [address] [id number] [address] [place] [address] Mar, IMMUNIZATIONS No Known Immunizations SOCIAL HISTORY Never Assessed REASON FOR VISIT PLAN OF CARE VITAL SIGNS Height 68 in 2013-02-07 Weight 229.4 lbs 2013-02-07 Temperature 97.9 degrees Fahrenheit 2013-02-07 Heart Rate 112 bpm 2013-02-07 Respiratory Rate 18 2013-02-07 Blood pressure systolic 154 mmHg 2013-02-07 Blood pressure diastolic 96 mmHg 2013-02-07 MEDICATIONS Unknown Medications RESULTS No Results PROCEDURES [...]
--- OUTSIDE RECORDS SUMMARY | 2019-08-16 14:09 | XMS REPORT ---
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 Role Phone CROW MIRELLA Unavailable PROBLEMS Type Condition ICD9-CM Code BAT22-JG Code Onset Dates Condition S tatus SNOMED Code Problem Mood disorder F39 Active 334880 05 Problem Low back pain M54.5 Active 291348 005 Problem Acquired hypothyroidism E03.9 Active 359720298 Problem Diabetes type 2, uncontrolled E11.65 Active 975508262 Problem Diabetes type 2, controlled E11.9 Ac tive 93815130 Problem Controlled type 2 diabetes m ellitus without complication, without long- term current use of insulin E11.9 Active 029178119 Problem Uncontrolled type 2 diabetes mellitus with hyperglycemia E11.65 Active 648151524 Problem Hypertension, benign I10 Active 01958160 Problem Other chronic pain G89.29 Active 8 4623494 Problem Shoulder pain, right M25.511 Active 53095850 Problem Cervical radiculopathy M54.12 Active 56682308 Problem History of urethral stricture Z87.448 Active 216320876 Problem custodial current use of insulin Z79.4 Active 365128387 Problem Type 2 diabetes mellitus without complications E11 .9 Active 418967931 ALLERGIES No Information ENCOUNTERS Encounter Location Date Diagnosis [facility] [address] [facility] [id number] [address] [place] [phone] Feb, Controlled type 2 diabetes m ellitus without complication, without long-term current use of insulin E11.9 [facility] [address] [facility] [id number] [address] [place] [phone] Feb, Uncontrolled type 2 diabetes mellitus with hyperglycemia E11.65 ; Other chronic pain G89.29 ; Pain in right shoulder M25.511 and Thoracic spine pain M54.6 [facility] [address] [facility] [id number] [address] [place] [phone] Nov, [facility] [address] [id number] [address] [place] [phone] Aug, Diabetes type 2, uncontrolle d E11.65 [facility] [address] [facility] [id number] [address] [place] [phone] July, [facility] [address] [id number] [address] [place] [phone] July, Dental examination Z01.20 an d Caries K02.9 [facility] [address] [id number] [address] [place] [phone] Jun, Controlled type 2 diabetes m ellitus without complication, without long-term current use of insulin E11.9 [facility] [address] [facility] [id number] [address] [place] [phone] May, Controlled type 2 diabetes m ellitus without complication, without long-term current use of insulin E11.9 [facility] [address] [facility] [id number] [address] [place] [phone] Apr, [facility] [address] [facility] [id number] [address] [place] [phone] Mar, Controlled type 2 diabetes m ellitus without complication, without long-term current use of insulin E11.9 [facility] [address] [facility] [id number] [address] [place] [phone] Jan, [facility] [address] [facility] [id number] [address] [place] [phone] Dec, Diabetes type 2, uncontrolle d E11.65 [facility] [address] [facility] [id number] [address] [place] [phone] Dec, Type 2 diabetes mellitus wit hout complications E11.9 ; 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 and Cervicalgia M54.2 [facility] [address] [facility] [id number] [address] [place] [phone] Dec, Type 2 diabetes mellitus wit hout complications E11.9 ; 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65 [place] [address] [id number] [address] [place] [phone] Jun, Controlled type 2 diabetes m ellitus without complication, without long-term current use of insulin E11.9 [place] [address] [id number] [address] [place] [phone] May, [place] [address] [id number] [address] [place] [phone] 16 May, 2017 Radiculopathy of cervical re gion M54.12 [place] [address] [id number] [address] [place] [phone] 14 May, 2017 Controlled type 2 diabetes m ellitus without complication, without long-term current use of insulin E11.9 [place] [address] [id number] [address] [place] [phone] May, [place] [address] [id number] [address] [place] [phone] May, Controlled type 2 diabetes m ellitus without complication, without long-term current use of insulin E11.9 [place] [address] [id number] [address] [place] [phone] May, Controlled type 2 diabetes m ellitus without complication, without long-term current use of insulin E11.9 [facility] [address] [id number] [address] [place] [phone] May, Controlled type 2 diabetes m ellitus without complication, without long-term current use of insulin E11.9 [facility] [address] [id number] [address] [place] [phone] Apr, [facility] [address] [id number] [address] [place] [phone] Apr, Controlled type 2 diabetes m ellitus without complication, without long-term current use of insulin E11.9 [place] [address] [id number] [address] [place] [phone] Apr, [place] [address] [id number] [address] [place] [phone] Apr, Controlled type 2 diabetes m ellitus without complication, without long-term current use of insulin E11.9 [place] [address] [id number] [address] [place] [phone] Mar, [place] [address] [id number] [address] [place] [phone] Mar, Radiculopathy of cervical re gion M54.12 [place] [address] [id number] [address] [place] [phone] Mar, Controlled type 2 diabetes m ellitus without complication, without long-term current use of insulin E11.9 [place] [address] [facility] [id number] [address] [place] [phone] Feb, Cervical radiculopathy M54.1 2 ; Acute cystitis without hematuria N30.00 and History of urethral stricture Z87.448 [place] [address] [facility] [id number] [address] [place] [phone] Feb, Controlled type 2 diabetes m ellitus without complication, without long-term current use of insulin E11.9 [place] [address] [facility] [id number] [address] [place] [phone] Feb, [facility] [address] [id number] [address] [place] [phone] Jan, Diabetes type 2, uncontrolle d E11.65 [facility] [address] [id number] [address] [place] [phone] Jan, [facility] [address] [id number] [address] [place] [phone] Jan, Controlled type 2 diabetes m ellitus without complication, without long-term current use of insulin E11.9 ; Chest wall pain R07.89 and Thoracic spine pain M54.6 [facility] [address] [id number] [address] [place] [phone] Dec, [facility] [address] [id number] [address] [place] [phone] Dec, [facility] [address] [id number] [address] [place] [phone] Nov, [facility] [address] [id number] [address] [place] [phone] Nov, [facility] [address] [id number] [address] [place] [phone] Nov, Trichomonas exposure Z20.2 [facility] [address] [id number] [address] [place] [phone] Oct, [facility] [address] [id number] [address] [place] [phone] Oct, [facility] [address] [id number] [address] [place] [phone] Oct, [facility] [address] [id number] [address] [place] [phone] Oct, [facility] [address] [id number] [address] [place] [phone] Sep, [facility] [address] [id number] [address] [place] [phone] Sep, [facility] [address] [id number] [address] [place] [address], [place] [address] Aug, [facility] [address] [id number] [address] [place] [address], [place] [phone] Aug, [facility] [address] [id number] [address] [place] [address], [place] [address] Aug, [facility] [address] [id number] [address] [place] [address], [place] [address] Aug, [facility] [address] [id number] [address] [place] [address], [place] [address] July, Diabetes type 2, controlled E11.9 [facility] [address] [id number] [address] [place] [address], [place] [address] July, [facility] [address] [id number] [address] [place] [address], [place] [address] July, [facility] [address] [id number] [address] [place] [address], [place] [address] July, [facility] [address] [id number] [address] [place] [address], [place] [address] July, [facility] [address] [id number] [address] [place] [address], [place] [address] Jun, [facility] [address] [id number] [address] [place] [address], [place] [address] Jun, [facility] [address] [id number] [address] [place] [address], [place] [address] May, [facility] [address] [id number] [address] [place] [address], [place] [phone] May, [facility] [address] [id number] [address] [place] [address], [place] [address] May, [facility] [address] [id number] [address] [place] [address], [place] [address] May, Controlled type 2 diabetes m ellitus without complication, without long-term current use of insulin E11.9 [facility] [address] [id number] [address] [place] [phone] Apr, [facility] [address] [id number] [address] [place] [phone] Apr, [facility] [address] [id number] [address] [place] [phone] Mar, [facility] [address] [id number] [address] [place] [phone] Mar, [facility] [address] [id number] [address] [place] [phone] Feb, [facility] [address] [id number] [address] [place] [phone] Feb, [facility] [address] [id number] [address] [place] [phone] Jan, [facility] [address] [id number] [address] [place] [phone] Jan, [facility] [address] [id number] [address] [place] [phone] Jan, [facility] [address] [id number] [address] [place] [phone] Dec, [facility] [address] [id number] [address] [place] [phone] Dec, [facility] [address] [id number] [address] [place] [phone] Dec, [facility] [address] [id number] [address] [place] [phone] 29 Nov, 2015 Diabetes type 2, uncontrolle d E11.65 [facility] [address] [id number] [address] [place] [phone] 14 Nov, 2015 [facility] [address] [id number] [address] [place] [phone] Nov, [facility] [address] [id number] [address] [place] [phone] Oct, [facility] [address] [id number] [address] [place] [phone] Oct, [facility] [address] [id number] [address] [place] [id number] Sep, Controlled type 2 diabetes m ellitus without complication, without long-term current use of insulin E11.9 [facility] [address] [id number] [address] [place] [phone] Sep, [facility] [address] [id number] [address] [place] [phone] Sep, [facility] [address] [id number] [address] [place] [phone] Sep, [facility] [address] [id number] [address] [place] [phone] Sep, [facility] [address] [id number] [address] [place] [phone] Aug, Diabetes type 2, controlled E11.9 ; Anxiety F41.9 ; Carpal tunnel syndrome, left upper limb G56.02 and Carpal tunnel syndrome, right upper limb G56.01 [facility] [address] [id number] [address] [place] [address] Aug, Urethritis N34.2 [facility] [address] [id number] [address] [place] [phone] Aug, [facility] [address] [id number] [address] [place] [phone] July, Genital warts A63.0 [facility] [address] [id number] [address] [place] [phone] July, [facility] [address] [id number] [address] [place] [phone] July, Genital warts A63.0 [facility] [address] [id number] [address] [place] [phone] July, Anxiety F41.9 [facility] [address] [id number] [address] [place] [phone] Jun, Genital warts A63.0 [facility] [address] [id number] [address] [place] [phone] Jun, Anxiety F41.9 [facility] [address] [id number] [address] [place] [phone] May, Genital warts A63.0 and Diab etes type 2, uncontrolled E11.65 [facility] [address] [id number] [address] [place] [phone] May, [facility] [address] [id number] [address] [place] [phone] May, [facility] [address] [id number] [address] [place] [phone] Apr, [facility] [address] [id number] [address] [place] [phone] Apr, [facility] [address] [id number] [address] [place] [phone] Apr, Diabetes type 2, controlled E11.9 [facility] [address] [id number] [address] [place] [phone] Apr, Genital warts A63.0 [facility] [address] [id number] [address] [place] [phone] Apr, [facility] [address] [id number] [address] [place] [phone] Apr, Diabetes type 2, uncontrolle d E11.65 and Genital warts A63.0 [facility] [address] [id number] [address] [place] [phone] Apr, [facility] [address] [facility] [id number] [address] [place] [phone] Mar, [facility] [address] [facility] [id number] [address] [place] [phone] Mar, [facility] [address] [facility] [id number] [address] [place] [phone] Mar, Family history of diabetes m ellitus V18.0 and Weight loss R63.4 [facility] [address] [place] [id number] [place] [phone] Mar, Genital warts A63.0 and Fami ly history of diabetes mellitus V18.0 [facility] [address] [facility] [id number] [place] [phone] Feb, [place] [address] [phone] Jan, [facility] [address] [place] [id number] [place] [place] [phone] Jan, Perianal venereal warts A63. 0 [facility] [address] [place] [id number] [address] [place] [phone] Jan, Urethritis N34.2 and Anxiety F41.9 [facility] [address] [phone] Jan, [facility] [address] [place] [id number] [place] [phone] Jan, Urinary tract infection, sit e unspecified N39.0 [facility] [address] [facility] [id number] [address] [place] [phone] Jan, [facility] [address] [place] [id number] [place] [phone] Dec, [facility] [address] [place] [id number] [address] [place] [phone] Dec, HPV (human papilloma virus) anogenital infection A63.0 ; Anxiety F41.9 and Gastroesophageal reflux disease without esophagitis K21.9 [facility] [address] [place] [id number] [address] [place] [phone] Sep, Blood in stool 578.1 [facility] [address] [place] [id number] [address] [place] [phone] Aug, Blood in stool 578.1 [facility] [address] [place] [id number] [address] [place] [address] Aug, Anxiety 300.00 and Blood in stool 578.1 [facility] [address] [place] [id number] [address] [place] [phone] July, [place] [address] [place] [id number] [place] [phone] July, Family history of diabetes m ellitus V18.0 [place] [address] [address] July, Family history of diabetes m ellitus V18.0 ; Family history of thyroid disease V18.19 ; Polyuria 788.42 ; Polydipsia 783.5 ; Alopecia 704.00 and Fatigue 780.79 [place] [address] [place] [id number] [address] [place] [phone] Jun, [place] [address] [place] [id number] [address] [place] [address] Jun, [facility] [address] [place] [id number] [address] [place] [phone] Mar, [facility] [address] [place] [id number] [address] [place] [id number] Mar, [facility] [address] [place] [id number] [address] [place] [id number] Mar, [facility] [address] [place] [id number] [address] [place] [id number] Mar, [facility] [address] [id number] [address] [place] [address], [place] [id number] Mar, [facility] [address] [id number] [address] [place] [address], [place] [id number] Mar, [facility] [address] [id number] [address] [place] [address], [place] [id number] Mar, [facility] [address] [id number] [address] [place] [address], [place] [id number] Mar, [facility] [address] [id number] [address] [place] [address], [place] [address] Mar, [facility] [address] [id number] [address] [place] [address], [place] [id number] Mar, [facility] [address] [id number] [address] [place] [address], [place] [id number] Feb, [facility] [address] [id number] [address] [place] [address], [place] [id number] Feb, [facility] [address] [id number] [address] [place] [address], [place] [id number] Jan, [facility] [address] [id number] [address] [place] [address], [place] [id number] Jan, [facility] [address] [id number] [address] [place] [address], [place] [id number] Jan, [facility] [address] [id number] [address] [place] [address], [place] [address] Jan, [facility] [address] [id number] [address] [place] [address], [place] [id number] Dec, [facility] [address] [id number] [address] [place] [address], [place] [address] Dec, [facility] [address] [id number] [address] [place] [address], [place] [id number] Nov, [facility] [address] [id number] [address] [place] [address], [place] [id number] Nov, [facility] [address] [id number] [facility] [place] [id number] Oct, [facility] [address] [id number] [facility] [place] [address] Oct, [facility] [address] [id number] [facility] [place] [id number] Oct, [facility] [address] [id number] [address] [place] [address], [place] [id number] Oct, [facility] [address] [id number] [facility] [place] [address] Oct, [facility] [address] [id number] [address] [place] [address], [place] [id number] Oct, [facility] [address] [id number] [address] [place] [address], [place] [address] Oct, [facility] [address] [id number] [address] [place] [address], [place] [id number] Oct, [facility] [address] [id number] 11 [place] [address], [place] [address] Sep, [facility] [address] [id number] [address] [place] [address], [place] [address] Sep, [facility] [address] [id number] [address] [place] [address], [place] [address] Sep, [facility] [address] [id number] [address] [place] [address], [place] [address] Sep, [facility] [address] [id number] [address] [place] [address], [place] [address] Aug, [facility] [address] [id number] [address] [place] [address], [place] [address] Aug, [facility] [address] [id number] [address] [place] [address], [place] [address] Aug, [facility] [address] [id number] [address] [place] [address], [place] [address] Aug, [facility] [address] [id number] [address] [place] [address], [place] [address] July, [facility] [address] [id number] [address] [place] [address], [place] [address] July, [facility] [address] [id number] [address] [place] [address], [place] [address] July, [facility] [address] [id number] [address] [place] [address], [place] [address] July, [facility] [address] [id number] [address] [place] [address], [place] [address] July, [facility] [address] [id number] [address] [place] [address], [place] [address] July, [facility] [address] [id number] [address] [place] [address], [place] [address] Jun, [facility] [address] [id number] [address] [place] [address], [place] [address] Jun, [facility] [address] [id number] [address] [place] [address], [place] [address] Jun, [facility] [address] [id number] [address] [place] [address], [place] [address] Jun, [facility] [address] [id number] [address] [place] [address], [place] [address] Jun, [facility] [address] [id number] [address] [place] [address], [place] [address] Jun, [facility] [address] [id number] [address] [place] [address], [place] [address] Jun, [facility] [address] [id number] [address] [place] [address], [place] [address] Jun, [facility] [address] [id number] [address] [place] [address], [place] [address] May, [facility] [address] [id number] [address] [place] [address], [place] [address] May, [facility] [address] [id number] [address] [place] [address], [place] [address] May, [facility] [address] [id number] [address] [place] [address], [place] [address] Apr, [facility] [address] [id number] [address] [place] [address], [place] [address] Apr, [facility] [address] [id number] [address] [place] [address], [place] [address] Apr, [facility] [address] [id number] [address] [place] [address], [place] [address] Apr, [facility] [address] [id number] [address] [place] [address], [place] [address] Mar, [facility] [address] [id number] [address] [place] [address], [place] [address] Mar, [facility] [address] [id number] [address] [place] [address], [place] [address] Mar, [facility] [address] [id number] [address] [place] [address], [place] [address] Mar, [facility] [address] [id number] [address] [place] [address], [place] [address] Mar, [facility] [address] [id number] [address] [place] [address], [place] [address] Mar, [facility] [address] [id number] [address] [place] [address], [place] [address] Feb, [facility] [address] [id number] [address] [place] [address], [place] [address] Feb, [facility] [address] [id number] [address] [place] [address], [place] [address] Jan, [facility] [address] [id number] [address] [place] [address], [place] [address] Jan, [facility] [address] [id number] [address] [place] [address], [place] [address] Jan, [facility] [address] [id number] [address] [place] [address], [place] [address] Jan, [facility] [address] [id number] [address] [place] [address], [place] [address] Jan, [facility] [address] [id number] [address] [place] [address], [place] [address] Jan, [facility] [address] [id number] [address] [place] [address], [place] [address] Jan, [facility] [address] [id number] [address] [place] [address], [place] [address] Dec, [facility] [address] [id number] [address] [place] [address], [place] [address] Dec, [facility] [address] [id number] [address] [place] [address], [place] [address] Nov, [facility] [address] [id number] [address] [place] [address], [place] [address] Nov, [facility] [address] [id number] [address] [place] [address], [place] [address] Nov, [facility] [address] [id number] [address] [place] [address], [place] [address] Oct, [facility] [address] [id number] [address] [place] [address], [place] [address] Oct, [facility] [address] [id number] [address] [place] [address], [place] [address] Oct, [facility] [address] [id number] [address] [place] [address], [place] [address] Oct, [facility] [address] [id number] [address] [place] [address], [place] [address] Sep, [facility] [address] [id number] [address] [place] [address] Sep, [facility] [address] [id number] [address] [place] [id number] Aug, [facility] [address] [id number] [address] [place] [id number] Aug, [facility] [address] [id number] [address] [place] [id number] Aug, [facility] [address] [id number] [address] [place] [id number] Aug, [facility] [address] [id number] [address] [place] [id number] July, [facility] [address] [id number] [address] [place] [id number] July, [facility] [address] [id number] [address] [place] [id number] July, [facility] [address] [id number] [address] [place] [id number] July, [facility] [address] [id number] [address] [place] [id number] Jun, [facility] [address] [id number] [address] [place] [id number] Jun, [facility] [address] [id number] [address] [place] [id number] Feb, [facility] [address] [id number] [address] [place] [id number] Feb, [facility] [address] [id number] [address] [place] [id number] Mar, IMMUNIZATIONS No Known Immunizations SOCIAL HISTORY Never Assessed REASON FOR VISIT PLAN OF CARE VITAL SIGNS Height 68 in 2013-11-05 Weight 237.1 lbs 2013-11-05 Temperature 97 degrees Fahrenheit 2013-11-05 Heart Rate 70 bpm 2013-11-05 Respiratory Rate 18 2013-11-05 Blood pressure systolic 134 mmHg 2013-11-05 Blood pressure diastolic 80 mmHg 2013-11-05 MEDICATIONS Unknown Medications RESULTS No Results PROCEDURES Procedure Date Ordered Result Body Site X-RAY EXAM OF KNEE, 1 OR 2 Nov 05, 2013 INSTRUCTIONS MEDICATIONS ADMINISTERED No Known Medications MEDICAL [...]
--- OUTSIDE RECORDS SUMMARY | 2019-08-16 14:09 | XMS REPORT ---
Author Author Joseph MARIA Organization [facility] Address [address] [place] [address] Care Team Providers Care Commercial Lines Account Manager Name Role Phone CROW MIRELLA Unavailable PROBLEMS Type Condition ICD9-CM Code WCY50-MA Code Onset Dates Condition S tatus SNOMED Code Problem Mood disorder F39 Active 460277 05 Problem Low back pain M54.5 Active 749731 005 Problem Acquired hypothyroidism E03.9 Active 257685954 Problem Diabetes type 2, uncontrolled E11.65 Active 638134635 Problem Diabetes type 2, controlled E11.9 Ac tive 65372194 Problem Controlled type 2 diabetes m ellitus without complication, without long- term current use of insulin E11.9 Active 884403146 Problem Uncontrolled type 2 diabetes mellitus with hyperglycemia E11.65 Active 077539526 Problem Hypertension, benign I10 Active 19935607 Problem Other chronic pain G89.29 Active 8 6196110 Problem Shoulder pain, right M25.511 Active 06992650 Problem Cervical radiculopathy M54.12 Active 16108121 Problem History of urethral stricture Z87.448 Active 474406261 Problem [facility]CI current use of insulin Z79.4 Active 914616091 Problem Type 2 diabetes mellitus without complications E11 .9 Active [id number] ALLERGIES No Information ENCOUNTERS Encounter Location Date Diagnosis [facility] [address] [facility] [id number] [address] [place] [address] Feb, Controlled type 2 diabetes m ellitus without complication, without long-term current use of insulin E11.9 [facility] [address] [facility] [id number] [address] [place] [phone] 09 Feb, 2019 Uncontrolled type 2 diabetes mellitus with hyperglycemia E11.65 ; Other chronic pain G89.29 ; Pain in right shoulder M25.511 and Thoracic spine pain M54.6 [facility] [address] [facility] [id number] [address] [place] [phone] Nov, [facility] [address] [id number] [address] [place] [phone] Aug, Diabetes type 2, uncontrolle d E11.65 [facility] [address] [facility] [id number] [address] [place] [phone] July, [facility] [address] [id number] [address] [place] [id number] July, Dental examination Z01.20 an d Caries K02.9 [facility] [address] [id number] [address] [place] [address] Jun, Controlled type 2 diabetes m ellitus without complication, without long-term current use of insulin E11.9 [facility] [address] [facility] [id number] [address] [place] [phone] May, Controlled type 2 diabetes m ellitus without complication, without long-term current use of insulin E11.9 [facility] [address] [facility] [id number] [address] [place] [phone] Apr, [facility] [address] [facility] [id number] [address] [place] [phone] Mar, Controlled type 2 diabetes m ellitus without complication, without long-term current use of insulin E11.9 [facility] [address] [facility] [id number] [address] [place] [address] Jan, [facility] [address] [facility] [id number] [address] [place] [address] Dec, Diabetes type 2, uncontrolle d E11.65 [facility] [address] [facility] [id number] [address] [place] [address] Dec, Type 2 diabetes mellitus wit hout complications E11.9 ; intermission coordinator current use of insulin Z79.4 and Cervicalgia M54.2 [facility] [address] [facility] [id number] [address] [place] [phone] Dec, Type 2 diabetes mellitus wit hout complications E11.9 ; intermission coordinator current use of insulin Z79.4 and Cervicalgia M54.2 [facility] [address] [id number] [address] [place] [phone] Dec, Controlled type 2 diabetes m ellitus without complication, without long-term current use of insulin E11.9 [place] [address] [id number] [address] [place] [address] Nov, [place] [address] [id number] [address] [place] [address] Oct, Diabetes type 2, uncontrolle d E11.65 [place] [address] [id number] [address] [place] [address] Sep, Diabetes type 2, uncontrolle d E11.65 [place] [address] [id number] [address] [place] [phone] Jun, Controlled type 2 diabetes m ellitus without complication, without long-term current use of insulin E11.9 [place] [address] [id number] [address] [place] [address] May, [place] [address] [id number] [address] [place] [address] 16 May, 2017 Radiculopathy of cervical re gion M54.12 [place] [address] [id number] [address] [place] [phone] 14 May, 2017 Controlled type 2 diabetes m ellitus without complication, without long-term current use of insulin E11.9 [place] [address] [id number] [address] [place] [address] May, [place] [address] [id number] [address] [place] [address] May, Controlled type 2 diabetes m ellitus without complication, without long-term current use of insulin E11.9 [place] [address] [id number] [address] [place] [phone] May, Controlled type 2 diabetes m ellitus without complication, without long-term current use of insulin E11.9 [facility] [address] [id number] [address] [place] [address] May, Controlled type 2 diabetes m ellitus without complication, without long-term current use of insulin E11.9 [facility] [address] [id number] [address] [place] [phone] Apr, [facility] [address] [id number] [address] [place] [address] Apr, Controlled type 2 diabetes m ellitus without complication, without long-term current use of insulin E11.9 [place] [address] [id number] [address] [place] [address] Apr, [place] [address] [id number] [address] [place] [address] Apr, Controlled type 2 diabetes m ellitus without complication, without long-term current use of insulin E11.9 [place] [address] [id number] [address] [place] [address] Mar, [place] [address] [id number] [address] [place] [address] Mar, Radiculopathy of cervical re gion M54.12 [place] [address] [id number] [address] [place] [address] Mar, Controlled type 2 diabetes m ellitus without complication, without long-term current use of insulin E11.9 [place] [address] [facility] [id number] [address] [place] [address] Feb, Cervical radiculopathy M54.1 2 ; Acute cystitis without hematuria N30.00 and History of urethral stricture Z87.448 [place] [address] [facility] [id number] [address] [place] [address] Feb, Controlled type 2 diabetes m ellitus without complication, without long-term current use of insulin E11.9 [place] [address] [facility] [id number] [address] [place] [address] Feb, [facility] [address] [id number] [address] [place] [address] Jan, Diabetes type 2, uncontrolle d E11.65 [facility] [address] [id number] [address] [place] [phone] Jan, [facility] [address] [id number] [address] [place] [address] Jan, Controlled type 2 diabetes m ellitus without complication, without long-term current use of insulin E11.9 ; Chest wall pain R07.89 and Thoracic spine pain M54.6 [facility] [address] [id number] [address] [place] [address] Dec, [facility] [address] [id number] [address] [place] [address] Dec, [facility] [address] [id number] [address] [place] [address] Nov, [facility] [address] [id number] [address] [place] [address] Nov, [facility] [address] [id number] [address] [place] [phone] Nov, Trichomonas exposure Z20.2 [facility] [address] [id number] [address] [place] [phone] Oct, [facility] [address] [id number] [address] [place] [phone] Oct, [facility] [address] [id number] [address] [place] [address] Oct, [facility] [address] [id number] [address] [place] [phone] Oct, [facility] [address] [id number] [address] [place] [phone] Sep, [facility] [address] [id number] [address] [place] [phone] Sep, [facility] [address] [id number] [address] [place] [address], [place] [address] Aug, [facility] [address] [id number] [address] [place] [address], [place] [address] Aug, [facility] [address] [id number] [address] [place] [address], [place] [address] Aug, [facility] [address] [id number] [address] [place] [address], [place] [address] Aug, [facility] [address] [id number] [address] [place] [address], [place] [address] July, Diabetes type 2, controlled E11.9 [facility] [address] [id number] [address] [place] [address], [place] [address] July, [facility] [address] [id number] [address] [place] [address], [place] [address] July, [facility] [address] [id number] [address] [place] [address], [place] [address] July, [facility] [address] [id number] [address] [place] [address], [place] [address] July, [facility] [address] [id number] [address] [place] [address], [place] [address] Jun, [facility] [address] [id number] [address] [place] [address], [place] [address] Jun, [facility] [address] [id number] [address] [place] [address], [place] [address] May, [facility] [address] [id number] [address] [place] [address], [place] [address] May, [facility] [address] [id number] [address] [place] [address], [place] [address] May, [facility] [address] [id number] [address] [place] [address], [place] [address] May, Controlled type 2 diabetes m ellitus without complication, without long-term current use of insulin E11.9 [facility] [address] [id number] [address] [place] [phone] Apr, [facility] [address] [id number] [address] [place] [phone] Apr, [facility] [address] [id number] [address] [place] [address] Mar, [facility] [address] [id number] [address] [place] [address] Mar, [facility] [address] [id number] [address] [place] [phone] Feb, [facility] [address] [id number] [address] [place] [address] Feb, [facility] [address] [id number] [address] [place] [address] Jan, [facility] [address] [id number] [address] [place] [address] Jan, [facility] [address] [id number] [address] [place] [address] Jan, [facility] [address] [id number] [address] [place] [address] Dec, [facility] [address] [id number] [address] [place] [phone] Dec, [facility] [address] [id number] [address] [place] [address] Dec, [facility] [address] [id number] [address] [place] [phone] 29 Nov, 2015 Diabetes type 2, uncontrolle d E11.65 [facility] [address] [id number] [address] [place] [phone] 14 Nov, 2015 [facility] [address] [id number] [address] [place] [phone] Nov, [facility] [address] [id number] [address] [place] [phone] Oct, [facility] [address] [id number] [address] [place] [phone] Oct, [facility] [address] [id number] [address] [place] [address] Sep, Controlled type 2 diabetes m ellitus without complication, without long-term current use of insulin E11.9 [facility] [address] [id number] [address] [place] [address] Sep, [facility] [address] [id number] [address] [place] [address] Sep, [facility] [address] [id number] [address] [place] [address] Sep, [facility] [address] [id number] [address] [place] [address] Sep, [facility] [address] [id number] [address] [place] [address] Aug, Diabetes type 2, controlled E11.9 ; Anxiety F41.9 ; Carpal tunnel syndrome, left upper limb G56.02 and Carpal tunnel syndrome, right upper limb G56.01 [facility] [address] [id number] [address] [place] [address] Aug, Urethritis N34.2 [facility] [address] [id number] [address] [place] [address] Aug, [facility] [address] [id number] [address] [place] [address] July, Genital warts A63.0 [facility] [address] [id number] [address] [place] [address] July, [facility] [address] [id number] [address] [place] [address] July, Genital warts A63.0 [facility] [address] [id number] [address] [place] [address] July, Anxiety F41.9 [facility] [address] [id number] [address] [place] [address] Jun, Genital warts A63.0 [facility] [address] [id number] [address] [place] [address] Jun, Anxiety F41.9 [facility] [address] [id number] [address] [place] [address] May, Genital warts A63.0 and Diab etes type 2, uncontrolled E11.65 [facility] [address] [id number] [address] [place] [phone] May, [facility] [address] [id number] [address] [place] [address] May, [facility] [address] [id number] [address] [place] [address] Apr, [facility] [address] [id number] [address] [place] [address] Apr, [facility] [address] [id number] [address] [place] [address] Apr, Diabetes type 2, controlled E11.9 [facility] [address] [id number] [address] [place] [address] Apr, Genital warts A63.0 [facility] [address] [id number] [address] [place] [address] Apr, [facility] [address] [id number] [address] [place] [address] Apr, Diabetes type 2, uncontrolle d E11.65 and Genital warts A63.0 [facility] [address] [id number] [address] [place] [address] Apr, [facility] [address] [facility] [id number] [address] [place] [address] Mar, [facility] [address] [facility] [id number] [address] [place] [address] Mar, [facility] [address] [facility] [id number] [address] [place] [address] Mar, Family history of diabetes m ellitus V18.0 and Weight loss R63.4 [facility] [address] [place] [id number] [place] [address] Mar, Genital warts A63.0 and Fami ly history of diabetes mellitus V18.0 [facility] [address] [facility] [id number] [place] [address] Feb, [place] [address] [address] Jan, [facility] [address] [place] [id number] [place] [address] Jan, Perianal venereal warts A63. 0 [facility] [address] [place] [id number] [address] [place] [address] Jan, Urethritis N34.2 and Anxiety F41.9 [facility] [address] [address] Jan, [facility] [address] [place] [id number] [place] [address] Jan, Urinary tract infection, sit e unspecified N39.0 [facility] [address] [facility] [id number] [address] [place] [address] Jan, [facility] [address] [place] [id number] [place] [address] Dec, [facility] [address] [place] [id number] [address] [place] [address] Dec, HPV (human papilloma virus) anogenital infection A63.0 ; Anxiety F41.9 and Gastroesophageal reflux disease without esophagitis K21.9 [facility] [address] [place] [id number] [address] [place] [address] Sep, Blood in stool 578.1 [facility] [address] [place] [id number] [address] [place] [address] Aug, Blood in stool 578.1 [facility] [address] [place] [id number] [address] [place] [address] Aug, Anxiety 300.00 and Blood in stool 578.1 [facility] [address] [place] [id number] [address] [place] [address] July, [place] [address] [place] [id number] [place] [address] July, Family history of diabetes m ellitus V18.0 [place] [address] [address] July, Family history of diabetes m ellitus V18.0 ; Family history of thyroid disease V18.19 ; Polyuria 788.42 ; Polydipsia 783.5 ; Alopecia 704.00 and Fatigue 780.79 [place] [address] [place] [id number] [address] [place] [address] Jun, [place] [address] [place] [id number] [address] [place] [id number] Jun, [facility] [address] [place] [id number] [address] [place] [address] Mar, [facility] [address] [place] [id number] [address] [place] [address] Mar, [facility] [address] [place] [id number] [address] [place] [phone] Mar, [facility] [address] [place] [id number] [address] [place] [phone] Mar, [facility] [address] [id number] [address] [place] [address], [place] [address] Mar, [facility] [address] [id number] [address] [place] [address], [place] [address] Mar, [facility] [address] [id number] [address] [place] [address], [place] [address] Mar, [facility] [address] [id number] [address] [place] [address], [place] [address] Mar, [facility] [address] [id number] [address] [place] [address], [place] [address] Mar, [facility] [address] [id number] [address] [place] [address], [place] [address] Mar, [facility] [address] [id number] [address] [place] [address], [place] [address] Feb, [facility] [address] [id number] [address] [place] [address], [place] [address] Feb, [facility] [address] [id number] [address] [place] [address], [place] [address] Jan, [facility] [address] [id number] [address] [place] [address], [place] [address] Jan, [facility] [address] [id number] [address] [place] [address], [place] [address] Jan, [facility] [address] [id number] [address] [place] [address], [place] [address] Jan, [facility] [address] [id number] [address] [place] [address], [place] [address] Dec, [facility] [address] [id number] [address] [place] [address], [place] [address] Dec, [facility] [address] [id number] [address] [place] [address], [place] [address] Nov, [facility] [address] [id number] [address] [place] [address], [place] [address] Nov, [facility] [address] [id number] [facility] [place] [address] Oct, [facility] [address] [id number] [facility] [place] [address] Oct, [facility] [address] [id number] [facility] [place] [address] Oct, [facility] [address] [id number] [address] [place] [address], [place] [address] Oct, [facility] [address] [id number] [facility] [place] [address] Oct, [facility] [address] [id number] [address] [place] [address], [place] [address] Oct, [facility] [address] [id number] [address] [place] [address], [place] [address] Oct, [facility] [address] [id number] [address] [place] [address], [place] [address] Oct, [facility] [address] [id number] [address] [place] [address], [place] [address] Sep, [facility] [address] [id number] [address] [place] [address], [place] [address] Sep, [facility] [address] [id number] [address] [place] [address], [place] [address] Sep, [facility] [address] [id number] [address] [place] [address], [place] [address] Sep, [facility] [address] [id number] [address] [place] [address], [place] [address] Aug, [facility] [address] [id number] [address] [place] [address], [place] [address] Aug, [facility] [address] [id number] [address] [place] [address], [place] [address] Aug, [facility] [address] [id number] [address] [place] [address], [place] [address] Aug, [facility] [address] [id number] [address] [place] [address], [place] [address] July, [facility] [address] [address] [id number] [address] [place] [address], [place] [address] July, [facility] [address] [id number] [address] [place] [address], [place] [address] July, [facility] [address] [id number] [address] [place] [address], [place] [address] July, [facility] [address] [id number] [address] [place] [address], [place] [address] July, [facility] [address] [id number] [address] [place] [address], [place] [address] July, [facility] [address] [id number] [address] [place] [address], [place] [address] Jun, [facility] [address] [id number] [address] [place] [address], [place] [address] Jun, [facility] [address] [id number] [address] [place] [address], [place] [address] Jun, [facility] [address] [id number] [address] [place] [address], [place] [address] Jun, [facility] [address] [id number] [address] [place] [address], [place] [address] Jun, [facility] [address] [id number] [address] [place] [address], [place] [address] Jun, [facility] [address] [id number] [address] [place] [address], [place] [address] Jun, [facility] [address] [id number] [address] [place] [address], [place] [address] Jun, [facility] [address] [id number] [address] [place] [address], [place] [address] May, [facility] [address] [id number] [address] [place] [address], [place] [address] May, [facility] [address] [id number] [address] [place] [address], [place] [address] May, [facility] [address] [id number] [address] [place] [address], [place] [address] Apr, [facility] [address] [id number] [address] [place] [address], [place] [address] Apr, [facility] [address] [id number] [address] [place] [address], [place] [address] Apr, [facility] [address] [id number] [address] [place] [address], [place] [address] Apr, [facility] [address] [id number] [address] [place] [address], [place] [address] Mar, [facility] [address] [id number] [address] [place] [address], [place] [address] Mar, [facility] [address] [id number] [address] [place] [address], [place] [address] Mar, [facility] [address] [id number] [address] [place] [address], [place] [address] Mar, [facility] [address] [id number] [address] [place] [address], [place] [address] Mar, [facility] [address] [id number] [address] [place] [address], [place] [address] Mar, [facility] [address] [id number] [address] [place] [address], [place] [address] Feb, [facility] [address] [id number] [address] [place] [address], [place] [address] Feb, [facility] [address] [id number] [address] [place] [address], [place] [address] Jan, [facility] [address] [id number] [address] [place] [address], [place] [address] Jan, [facility] [address] [id number] [address] [place] [address], [place] [address] Jan, [facility] [address] [id number] [address] [place] [address], [place] [address] Jan, [facility] [address] [id number] [address] [place] [address], [place] [address] Jan, [facility] [address] [id number] [address] [place] [address], [place] [address] Jan, [facility] [address] [id number] [address] [place] [address], [place] [address] Jan, [facility] [address] [id number] [address] [place] [address], [place] [address] Dec, [facility] [address] [id number] [address] [place] [address], [place] [address] Dec, [facility] [address] [id number] [address] [place] [address], [place] [address] Nov, [facility] [address] [id number] [address] [place] [address], [place] [address] Nov, [facility] [address] [id number] [address] [place] [address], [place] [address] Nov, [facility] [address] [id number] [address] [place] [address], [place] [address] Oct, [facility] [address] [id number] [address] [place] [address], [place] [address] Oct, [facility] [address] [id number] [address] [place] [address], [place] [address] Oct, [facility] [address] [id number] [address] [place] [address], [place] [address] Oct, [facility] [address] [id number] [address] [place] [address], [place] [address] Sep, [facility] [address] [id number] [address] [place] [id number] Sep, [facility] [address] [id number] [address] [place] [phone] Aug, [facility] [address] [id number] [address] [place] [phone] Aug, [facility] [address] [id number] [address] [place] [id number] Aug, [facility] [address] [id number] [address] [place] [phone] Aug, [facility] [address] [id number] [address] [place] [id number] July, [facility] [address] [id number] [address] [place] [address] July, [facility] [address] [id number] [address] [place] [phone] July, [facility] [address] [id number] [address] [place] [phone] July, [facility] [address] [id number] [address] [place] [phone] Jun, [facility] [address] [id number] [address] [place] [phone] Jun, [facility] [address] [id number] [address] [place] [id number] Feb, [facility] [address] [id number] [address] [place] [id number] Feb, [facility] [address] [id number] [address] [place] [id number] Mar, IMMUNIZATIONS No Known Immunizations SOCIAL HISTORY [...]
--- OUTSIDE RECORDS SUMMARY | 2019-08-16 14:09 | XMS REPORT ---
Author Author Joseph MARIA Organization [facility] Address [address] [place] [address] Care Team Providers [facility] [employer] Leader Name Role Phone CROW MIRELLA Unavailable PROBLEMS Type Condition ICD9-CM Code RWO62-CD Code Onset Dates Condition S tatus SNOMED Code Problem Mood disorder F39 Active 330534 05 Problem Low back pain M54.5 Active 033288 005 Problem Acquired hypothyroidism E03.9 Active 683814102 Problem Diabetes type 2, uncontrolled E11.65 Active 031847502 Problem Diabetes type 2, controlled E11.9 Ac tive 85569928 Problem Controlled type 2 diabetes m ellitus without complication, without long- term current use of insulin E11.9 Active 621653061 Problem Uncontrolled type 2 diabetes mellitus with hyperglycemia E11.65 Active 633555982 Problem Hypertension, benign I10 Active 94062334 Problem Other chronic pain G89.29 Active 8 2431620 Problem Shoulder pain, right M25.511 Active 15563565 Problem Cervical radiculopathy M54.12 Active 46965738 Problem History of urethral stricture Z87.448 Active 530445497 Problem alf current use of insulin Z79.4 Active 738904622 Problem Type 2 diabetes mellitus without complications E11 .9 Active [id number] ALLERGIES No Information ENCOUNTERS Encounter Location Date Diagnosis [facility] [address] [facility] [id number] [address] [place] [address] 31 Feb, 2019 Controlled type 2 diabetes m ellitus without complication, without long-term current use of insulin E11.9 [facility] [address] [facility] [id number] [address] [place] [address] 09 Feb, 2019 Uncontrolled type 2 diabetes mellitus with hyperglycemia E11.65 ; Other chronic pain G89.29 ; Pain in right shoulder M25.511 and Thoracic spine pain M54.6 [facility] [address] [facility] [id number] [address] [place] [address] Nov, [facility] [address] [id number] [address] [place] [address] Aug, Diabetes type 2, uncontrolle d E11.65 [facility] [address] [facility] [id number] [address] [place] [address] July, [facility] [address] [id number] [address] [place] [id number] July, Dental examination Z01.20 an d Caries K02.9 [facility] [address] [id number] [address] [place] [address] Jun, Controlled type 2 diabetes m ellitus without complication, without long-term current use of insulin E11.9 [facility] [address] [facility] [id number] [address] [place] [address] May, Controlled type 2 diabetes m ellitus without complication, without long-term current use of insulin E11.9 [facility] [address] [facility] [id number] [address] [place] [address] Apr, [facility] [address] [facility] [id number] [address] [place] [address] Mar, Controlled type 2 diabetes m ellitus without complication, without long-term current use of insulin E11.9 [facility] [address] [facility] [id number] [address] [place] [address] Jan, [facility] [address] [facility] [id number] [address] [place] [address] Dec, Diabetes type 2, uncontrolle d E11.65 [facility] [address] [facility] [id number] [address] [place] [address] Dec, Type 2 diabetes mellitus wit hout complications E11.9 ; 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 and Cervicalgia M54.2 [facility] [address] [facility] [id number] [address] [place] [address] Dec, Type 2 diabetes mellitus wit hout complications E11.9 ; 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 and Cervicalgia M54.2 [facility] [address] [id number] [address] [place] [address] Dec, Controlled type 2 diabetes m ellitus without complication, without long-term current use of insulin E11.9 [place] [address] [id number] [address] [place] [address] Nov, [place] [address] [id number] [address] [place] [address] Oct, Diabetes type 2, uncontrolle d E11.65 [place] [address] [id number] [address] [place] [address] Sep, Diabetes type 2, uncontrolle d E11.65 [place] [address] [id number] [address] [place] [address] Jun, Controlled type 2 diabetes m ellitus without complication, without long-term current use of insulin E11.9 [place] [address] [id number] [address] [place] [address] May, [place] [address] [id number] [address] [place] [address] 16 May, 2017 Radiculopathy of cervical re gion M54.12 [place] [address] [id number] [address] [place] [address] 14 May, 2017 Controlled type 2 diabetes m ellitus without complication, without long-term current use of insulin E11.9 [place] [id number] [id number] [address] [place] [address] May, [place] [address] [id number] [address] [place] [address] May, Controlled type 2 diabetes m ellitus without complication, without long-term current use of insulin E11.9 [place] [address] [id number] [address] [place] [address] May, Controlled type 2 diabetes m ellitus without complication, without long-term current use of insulin E11.9 [facility] [address] [id number] [address] [place] [address] May, Controlled type 2 diabetes m ellitus without complication, without long-term current use of insulin E11.9 [facility] [address] [id number] [address] [place] [address] Apr, [facility] [address] [id number] [address] [place] [address] Apr, Controlled type 2 diabetes m ellitus without complication, without long-term current use of insulin E11.9 [place] [address] [id number] [address] [place] [address] Apr, [place] [address] [id number] [address] [place] [address] Apr, Controlled type 2 diabetes m ellitus without complication, without long-term current use of insulin E11.9 [place] [address] [id number] [address] [place] [address] Mar, [place] [address] [id number] [address] [place] [address] Mar, Radiculopathy of cervical re gion M54.12 [place] [address] [id number] [address] [place] [address] Mar, Controlled type 2 diabetes m ellitus without complication, without long-term current use of insulin E11.9 [place] [address] [facility] [id number] [address] [place] [address] Feb, Cervical radiculopathy M54.1 2 ; Acute cystitis without hematuria N30.00 and History of urethral stricture Z87.448 [place] [address] [facility] [id number] [address] [place] [address] Feb, Controlled type 2 diabetes m ellitus without complication, without long-term current use of insulin E11.9 [place] [address] [facility] [id number] [address] [place] [address] Feb, [facility] [address] [id number] [address] [place] [address] Jan, Diabetes type 2, uncontrolle d E11.65 [facility] [address] [id number] [address] [place] [address] Jan, [facility] [address] [id number] [address] [place] [address] Jan, Controlled type 2 diabetes m ellitus without complication, without long-term current use of insulin E11.9 ; Chest wall pain R07.89 and Thoracic spine pain M54.6 [facility] [address] [id number] [address] [place] [address] Dec, [facility] [address] [id number] [address] [place] [address] Dec, [facility] [address] [id number] [address] [place] [address] Nov, [facility] [address] [id number] [address] [place] [address] Nov, [facility] [address] [id number] [address] [place] [address] Nov, Trichomonas exposure Z20.2 [facility] [address] [id number] [address] [place] [address] Oct, [facility] [address] [id number] [address] [place] [address] Oct, [facility] [address] [id number] [address] [place] [address] Oct, [facility] [address] [id number] [address] [place] [address] Oct, [facility] [address] [id number] [address] [place] [phone] Sep, [facility] [address] [id number] [address] [place] [phone] Sep, [facility] [address] [id number] [address] [place] [address], [place] [address] Aug, [facility] [address] [id number] [address] [place] [address], [place] [address] Aug, [facility] [address] [id number] [address] [place] [address], [place] [address] Aug, [facility] [address] [id number] [address] [place] [address], [place] [address] Aug, [facility] [address] [id number] [address] [place] [address], [place] [address] July, Diabetes type 2, controlled E11.9 [facility] [address] [id number] [address] [place] [address], [place] [address] July, [facility] [address] [id number] [address] [place] [address], [place] [address] July, [facility] [address] [id number] [address] [place] [address], [place] [address] July, [facility] [address] [id number] [address] [place] [address], [place] [address] July, [facility] [address] [id number] [address] [place] [address], [place] [address] Jun, [facility] [address] [id number] [address] [place] [address], [place] [address] Jun, [facility] [address] [id number] [address] [place] [address], [place] [address] May, [facility] [address] [id number] [address] [place] [address], [place] [address] May, [facility] [address] [id number] [address] [place] [address], [place] [address] May, [facility] [address] [id number] [address] [place] [address], [place] [address] May, Controlled type 2 diabetes m ellitus without complication, without long-term current use of insulin E11.9 [facility] [address] [id number] [address] [place] [address] Apr, [facility] [address] [id number] [address] [place] [address] Apr, [facility] [address] [id number] [address] [place] [address] Mar, [facility] [address] [id number] [address] [place] [address] Mar, [facility] [address] [id number] [address] [place] [id number] Feb, [facility] [address] [id number] [address] [place] [phone] Feb, [facility] [address] [id number] [address] [place] [address] Jan, [facility] [address] [id number] [address] [place] [address] Jan, [facility] [address] [id number] [address] [place] [address] Jan, [facility] [address] [id number] [address] [place] [address] Dec, [facility] [address] [id number] [address] [place] [address] Dec, [facility] [address] [id number] [address] [place] [address] Dec, [facility] [address] [id number] [address] [place] [address] 29 Nov, 2015 Diabetes type 2, uncontrolle d E11.65 [facility] [address] [id number] [address] [place] [address] 14 Nov, 2015 [facility] [address] [id number] [address] [place] [address] Nov, [facility] [address] [id number] [address] [place] [address] Oct, [facility] [address] [id number] [address] [place] [address] Oct, [facility] [address] [id number] [address] [place] [address] Sep, Controlled type 2 diabetes m ellitus without complication, without long-term current use of insulin E11.9 [facility] [address] [id number] [address] [place] [phone] Sep, [facility] [address] [id number] [address] [place] [address] Sep, [facility] [address] [id number] [address] [place] [address] Sep, [facility] [address] [id number] [address] [place] [address] Sep, [facility] [address] [id number] [address] [place] [address] Aug, Diabetes type 2, controlled E11.9 ; Anxiety F41.9 ; Carpal tunnel syndrome, left upper limb G56.02 and Carpal tunnel syndrome, right upper limb G56.01 [facility] [address] [id number] [address] [place] [address] Aug, Urethritis N34.2 [facility] [address] [id number] [address] [place] [address] Aug, [facility] [address] [id number] [address] [place] [address] July, Genital warts A63.0 [facility] [address] [id number] [address] [place] [address] July, [facility] [address] [id number] [address] [place] [address] July, Genital warts A63.0 [facility] [address] [id number] [address] [place] [address] July, Anxiety F41.9 [facility] [address] [id number] [address] [place] [address] Jun, Genital warts A63.0 [facility] [address] [id number] [address] [place] [address] Jun, Anxiety F41.9 [facility] [address] [id number] [address] [place] [address] May, Genital warts A63.0 and Diab etes type 2, uncontrolled E11.65 [facility] [address] [id number] [address] [place] [address] May, [facility] [address] [id number] [address] [place] [address] May, [facility] [address] [id number] [address] [place] [address] Apr, [facility] [address] [id number] [address] [place] [address] Apr, [facility] [address] [id number] [address] [place] [address] Apr, Diabetes type 2, controlled E11.9 [facility] [address] [id number] [address] [place] [address] Apr, Genital warts A63.0 [facility] [address] [id number] [address] [place] [address] Apr, [facility] [address] [id number] [address] [place] [address] Apr, Diabetes type 2, uncontrolle d E11.65 and Genital warts A63.0 [facility] [address] [id number] [address] [place] [address] Apr, [facility] [address] [facility] [id number] [address] [place] [address] Mar, [facility] [address] [facility] [id number] [address] [place] [address] Mar, [facility] [address] [facility] [id number] [address] [place] [address] Mar, Family history of diabetes m ellitus V18.0 and Weight loss R63.4 [facility] [address] [place] [id number] [place] [address] Mar, Genital warts A63.0 and Fami ly history of diabetes mellitus V18.0 [facility] [address] [facility] [id number] [place] [phone] Feb, [place] [address] [address] Jan, [facility] [address] [place] [id number] [place] [phone] Jan, Perianal venereal warts A63. 0 [facility] [address] [place] [id number] [address] [place] [address] Jan, Urethritis N34.2 and Anxiety F41.9 [facility] [address] [address] Jan, [facility] [address] [place] [id number] [place] [address] Jan, Urinary tract infection, sit e unspecified N39.0 [facility] [address] [facility] [id number] [address] [place] [address] Jan, [facility] [address] [place] [id number] [place] [phone] Dec, [facility] [address] [place] [id number] [address] [place] [phone] Dec, HPV (human papilloma virus) anogenital infection A63.0 ; Anxiety F41.9 and Gastroesophageal reflux disease without esophagitis K21.9 [facility] [address] [place] [id number] [address] [place] [address] Sep, Blood in stool 578.1 [facility] [address] [place] [id number] [address] [place] [address] Aug, Blood in stool 578.1 [facility] [address] [place] [id number] [address] [place] [address] Aug, Anxiety 300.00 and Blood in stool 578.1 [facility] [address] [place] [id number] [address] [place] [address] July, [place] [address] [place] [id number] [place] [address] July, Family history of diabetes m ellitus V18.0 [place] [address] [address] July, Family history of diabetes m ellitus V18.0 ; Family history of thyroid disease V18.19 ; Polyuria 788.42 ; Polydipsia 783.5 ; Alopecia 704.00 and Fatigue 780.79 [place] [address] [place] [id number] [address] [place] [address] Jun, [place] [address] [place] [id number] [address] [place] [address] Jun, [facility] [address] [place] [id number] [address] [place] [address] Mar, [facility] [address] [place] [id number] [address] [place] [address] Mar, [facility] [address] [place] [id number] [address] [place] [phone] Mar, [facility] [address] [place] [id number] [address] [place] [address] Mar, [facility] [address] [id number] [address] [place] [address], [place] [address] Mar, [facility] [address] [id number] [address] [place] [address], [place] [address] Mar, [facility] [address] [id number] [address] [place] [address], [place] [address] Mar, [facility] [address] [id number] [address] [place] [address], [place] [address] Mar, [facility] [address] [id number] [address] [place] [address], [place] [address] Mar, [facility] [address] [id number] [address] [place] [address], [place] [address] Mar, [facility] [address] [id number] [address] [place] [address], [place] [address] Feb, [facility] [address] [id number] [address] [place] [address], [place] [address] Feb, [facility] [address] [id number] [address] [place] [address], [place] [address] Jan, [facility] [address] [id number] [address] [place] [address], [place] [address] Jan, [facility] [address] [id number] [address] [place] [address], [place] [address] Jan, [facility] [address] [id number] [address] [place] [address], [place] [address] Jan, [facility] [address] [id number] [address] [place] [address], [place] [address] Dec, [facility] [address] [id number] [address] [place] [address], [place] [address] Dec, [facility] [address] [id number] [address] [place] [address], [place] [address] Nov, [facility] [address] [id number] [address] [place] [address], [place] [address] Nov, [facility] [address] [id number] [facility] [place] [address] Oct, [facility] [address] [id number] [facility] [place] [address] Oct, [facility] [address] [id number] [facility] [place] [address] Oct, [facility] [address] [id number] [address] [place] [address], [place] [address] Oct, [facility] [address] [id number] [facility] [place] [address] Oct, [facility] [address] [id number] [address] [place] [address], [place] [address] Oct, [facility] [address] [id number] [address] [place] [address], [place] [address] Oct, [facility] [address] [id number] [address] [place] [address], [place] [address] Oct, [facility] [address] [id number] [address] [place] [address], [place] [address] Sep, [facility] [address] [id number] [address] [place] [address], [place] [address] Sep, [facility] [address] [id number] [address] [place] [address], [place] [address] Sep, [facility] [address] [id number] [address] [place] [address], [place] [address] Sep, [facility] [address] [id number] [address] [place] [address], [place] [address] Aug, [facility] [address] [id number] [address] [place] [address], [place] [address] Aug, [facility] [address] [id number] [address] [place] [address], [place] [address] Aug, [facility] [address] [id number] [address] [place] [address], [place] [address] Aug, [facility] [address] [id number] [address] [place] [address], [place] [address] July, [facility] [address] [id number] [address] [place] [address], [place] [address] July, [facility] [address] [id number] [address] [place] [address], [place] [address] July, [facility] [address] [id number] [address] [place] [address], [place] [address] July, [facility] [address] [id number] [address] [place] [address], [place] [address] July, [facility] [address] [id number] [address] [place] [address], [place] [address] July, [facility] [address] [id number] [address] [place] [address], [place] [address] Jun, [facility] [address] [id number] [address] [place] [address], [place] [address] Jun, [facility] [address] [id number] [address] [place] [address], [place] [address] Jun, [facility] [address] [id number] [address] [place] [address], [place] [address] Jun, [facility] [address] [id number] [address] [place] [address], [place] [address] Jun, [facility] [address] [id number] [address] [place] [address], [place] [address] Jun, [facility] [address] [id number] [address] [place] [address], [place] [address] Jun, [facility] [address] [id number] [address] [place] [address], [place] [address] Jun, [facility] [address] [id number] [address] [place] [address], [place] [address] May, [facility] [address] [id number] [address] [place] [address], [place] [address] May, [facility] [address] [id number] [address] [place] [address], [place] [address] May, [facility] [address] [id number] [address] [place] [address], [place] [address] Apr, [facility] [address] [id number] [address] [place] [address], [place] [address] Apr, [facility] [address] [id number] [address] [place] [address], [place] [address] Apr, [facility] [address] [id number] [address] [place] [address], [place] [address] Apr, [facility] [address] [id number] [address] [place] [address], [place] [address] Mar, [facility] [address] [id number] [address] [place] [address], [place] [address] Mar, [facility] [address] [id number] [address] [place] [address], [place] [address] Mar, [facility] [address] [id number] [address] [place] [address], [place] [address] Mar, [facility] [address] [id number] [address] [place] [address], [place] [address] Mar, [facility] [address] [id number] [address] [place] [address], [place] [address] Mar, [facility] [address] [id number] [address] [place] [address], [place] [address] Feb, [facility] [address] [id number] [address] [place] [address], [place] [address] Feb, [facility] [address] [id number] [address] [place] [address], [place] [address] Jan, [facility] [address] [id number] [address] [place] [address], [place] [address] Jan, [facility] [address] [id number] [address] [place] [address], [place] [address] Jan, [facility] [address] [id number] [address] [place] [address], [place] [address] Jan, [facility] [address] [id number] [address] [place] [address], [place] [address] Jan, [facility] [address] [id number] [address] [place] [address], [place] [address] Jan, [facility] [address] [id number] [address] [place] [address], [place] [address] Jan, [facility] [address] [id number] [address] [place] [address], [place] [address] Dec, [facility] [address] [id number] [address] [place] [address], [place] [address] Dec, [facility] [address] [id number] [address] [place] [address], [place] [address] Nov, [facility] [address] [id number] [address] [place] [address], [place] [address] Nov, [facility] [address] [id number] [address] [place] [address], [place] [address] Nov, [facility] [address] [id number] [address] [place] [address], [place] [address] Oct, [facility] [address] [id number] [address] [place] [address], [place] [address] Oct, [facility] [address] [id number] [address] [place] [address], [place] [address] Oct, [facility] [address] [id number] [address] [place] [address], [place] [address] Oct, [facility] [address] [id number] [address] [place] [address], [place] [address] Sep, [facility] [address] [id number] [address] [place] [id number] Sep, [facility] [address] [id number] [address] [place] [address] Aug, [facility] [address] [id number] [address] [place] [address] Aug, [facility] [address] [id number] [address] [place] [address] Aug, [facility] [address] [id number] [address] [place] [address] Aug, [facility] [address] [id number] [address] [place] [address] July, [facility] [address] [id number] [address] [place] [id number] July, [facility] [address] [id number] [address] [place] [address] July, [facility] [address] [id number] [address] [place] [id number] July, [facility] [address] [id number] [address] [place] [address] Jun, [facility] [address] [id number] [address] [place] [id number] Jun, [facility] [address] [id number] [address] [place] [phone] Feb, [facility] [address] [id number] [address] [place] [id number] Feb, [facility] [address] [id number] [address] [place] [id number] Mar, IMMUNIZATIONS No Known Immunizations SOCIAL HISTORY [...]
--- OUTSIDE RECORDS SUMMARY | 2019-08-16 14:09 | XMS REPORT ---
Author Author Joseph MARIA Organization [facility] Address [address] [place] [address] Care Team Providers Care Delivery Technician Name Role Phone CROW MIRELLA Unavailable PROBLEMS Type Condition ICD9-CM Code [id number] Code Onset Dates Condition S tatus SNOMED Code Problem Mood disorder F39 Active 604885 05 Problem Low back pain M54.5 Active 610733 005 Problem Acquired hypothyroidism E03.9 Active 950675166 Problem Diabetes type 2, uncontrolled E11.65 Active 208084359 Problem Diabetes type 2, controlled E11.9 Ac tive 43285277 Problem Controlled type 2 diabetes m ellitus without complication, without long- term current use of insulin E11.9 Active 540305513 Problem Uncontrolled type 2 diabetes mellitus with hyperglycemia E11.65 Active 194486094 Problem Hypertension, benign I10 Active 74675037 Problem Other chronic pain G89.29 Active 8 5803280 Problem Shoulder pain, right M25.511 Active 38112892 Problem Cervical radiculopathy M54.12 Active 83333065 Problem History of urethral stricture Z87.448 Active 383634212 Problem 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 Z79.4 Active 285668312 Problem Type 2 diabetes mellitus without complications E11 .9 Active [id number] ALLERGIES No Information ENCOUNTERS Encounter Location Date Diagnosis [facility] [address] [facility] [id number] [address] [place] [phone] Feb, Controlled type 2 diabetes m ellitus without complication, without long-term current use of insulin E11.9 [facility] [address] [facility] [id number] [address] [place] [id number] 09 Feb, 2019 Uncontrolled type 2 diabetes mellitus with hyperglycemia E11.65 ; Other chronic pain G89.29 ; Pain in right shoulder M25.511 and Thoracic spine pain M54.6 [facility] [address] [facility] [id number] [address] [place] [phone] Nov, [facility] [address] [id number] [address] [place] [id number] Aug, Diabetes type 2, uncontrolle d E11.65 [facility] [address] [facility] [id number] [address] [place] [phone] July, [facility] [address] [id number] [address] [place] [id number] July, Dental examination Z01.20 an d Caries K02.9 [facility] [address] [id number] [address] [place] [id number] Jun, Controlled type 2 diabetes m ellitus without complication, without long-term current use of insulin E11.9 [facility] [address] [facility] [id number] [address] [place] [phone] May, Controlled type 2 diabetes m ellitus without complication, without long-term current use of insulin E11.9 [facility] [address] [facility] [id number] [address] [place] [phone] Apr, [facility] [address] [facility] [id number] [address] [place] [phone] Mar, Controlled type 2 diabetes m ellitus without complication, without long-term current use of insulin E11.9 [facility] [address] [facility] [id number] [address] [place] [phone] Jan, [facility] [address] [facility] [id number] [address] [place] [phone] Dec, Diabetes type 2, uncontrolle d E11.65 [facility] [address] [facility] [id number] [address] [place] [id number] Dec, Type 2 diabetes mellitus wit hout complications E11.9 ; 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 and Cervicalgia M54.2 [facility] [address] [facility] [id number] [address] [place] [id number] Dec, Type 2 diabetes mellitus wit hout complications E11.9 ; 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 and Cervicalgia M54.2 [facility] [address] [id number] [address] [place] [id number] Dec, Controlled type 2 diabetes m ellitus without complication, without long-term current use of insulin E11.9 [place] [address] [id number] [address] [place] [phone] Nov, [place] [address] [id number] [address] [place] [id number] Oct, Diabetes type 2, uncontrolle d E11.65 [place] [address] [id number] [address] [place] [phone] Sep, Diabetes type 2, uncontrolle d E11.65 [place] [address] [id number] [address] [place] [phone] Jun, Controlled type 2 diabetes m ellitus without complication, without long-term current use of insulin E11.9 [place] [address] [id number] [address] [place] [phone] May, [place] [address] [id number] [address] [place] [id number] 16 May, 2017 Radiculopathy of cervical re gion M54.12 [place] [address] [id number] [address] [place] [phone] 14 May, 2017 Controlled type 2 diabetes m ellitus without complication, without long-term current use of insulin E11.9 [place] [address] [id number] [address] [place] [phone] May, [place] [address] [id number] [address] [place] [phone] May, Controlled type 2 diabetes m ellitus without complication, without long-term current use of insulin E11.9 [place] [address] [id number] [address] [place] [phone] May, Controlled type 2 diabetes m ellitus without complication, without long-term current use of insulin E11.9 [facility] [address] [id number] [address] [place] [phone] May, Controlled type 2 diabetes m ellitus without complication, without long-term current use of insulin E11.9 [facility] [address] [id number] [address] [place] [phone] Apr, [facility] [address] [id number] [address] [place] [phone] Apr, Controlled type 2 diabetes m ellitus without complication, without long-term current use of insulin E11.9 [place] [address] [id number] [address] [place] [id number] Apr, [place] [address] [id number] [address] [place] [id number] Apr, Controlled type 2 diabetes m ellitus without complication, without long-term current use of insulin E11.9 [place] [address] [id number] [address] [place] [phone] Mar, [place] [address] [id number] [address] [place] [phone] Mar, Radiculopathy of cervical re gion M54.12 [place] [address] [id number] [address] [place] [id number] Mar, Controlled type 2 diabetes m ellitus without complication, without long-term current use of insulin E11.9 [place] [address] [facility] [id number] [address] [place] [id number] Feb, Cervical radiculopathy M54.1 2 ; Acute cystitis without hematuria N30.00 and History of urethral stricture Z87.448 [place] [address] [facility] [id number] [address] [place] [phone] Feb, Controlled type 2 diabetes m ellitus without complication, without long-term current use of insulin E11.9 [place] [address] [facility] [id number] [address] [place] [phone] Feb, [facility] [address] [id number] [address] [place] [id number] Jan, Diabetes type 2, uncontrolle d E11.65 [facility] [address] [id number] [address] [place] [id number] Jan, [facility] [address] [id number] [address] [place] [id number] Jan, Controlled type 2 diabetes m ellitus without complication, without long-term current use of insulin E11.9 ; Chest wall pain R07.89 and Thoracic spine pain M54.6 [facility] [address] [id number] [address] [place] [id number] Dec, [facility] [address] [id number] [address] [place] [phone] Dec, [facility] [address] [id number] [address] [place] [id number] Nov, [facility] [address] [id number] [address] [place] [phone] Nov, [facility] [address] [id number] [address] [place] [id number] Nov, Trichomonas exposure Z20.2 [facility] [address] [id number] [address] [place] [id number] Oct, [facility] [address] [id number] [address] [place] [id number] Oct, [facility] [address] [id number] [address] [place] [phone] Oct, [facility] [address] [id number] [address] [place] [phone] Oct, [facility] [address] [id number] [address] [place] [phone] Sep, [facility] [address] [id number] [address] [place] [phone] Sep, [facility] [address] [id number] [address] [place] [address], [place] [address] Aug, [facility] [address] [id number] [address] [place] [address], [place] [address] Aug, [facility] [address] [id number] [address] [place] [address], [place] [address] Aug, [facility] [address] [id number] [address] [place] [address], [place] [address] Aug, [facility] [address] [id number] [address] [place] [address], [place] [address] July, Diabetes type 2, controlled E11.9 [facility] [address] [id number] [address] [place] [address], [place] [address] July, [facility] [address] [id number] [address] [place] [address], [place] [address] July, [facility] [address] [id number] [address] [place] [address], [place] [address] July, [facility] [address] [id number] [address] [place] [address], [place] [address] July, [facility] [address] [id number] [address] [place] [address], [place] [address] Jun, [facility] [address] [id number] [address] [place] [address], [place] [address] Jun, [facility] [address] [id number] [address] [place] [address], [place] [address] May, [facility] [address] [id number] [address] [place] [address], [place] [address] May, [facility] [address] [id number] [address] [place] [address], [place] [address] May, [facility] [address] [id number] [address] [place] [address], [place] [address] May, Controlled type 2 diabetes m ellitus without complication, without long-term current use of insulin E11.9 [facility] [address] [id number] [address] [place] [id number] Apr, [facility] [address] [id number] [address] [place] [id number] Apr, [facility] [address] [id number] [address] [place] [id number] Mar, [facility] [address] [id number] [address] [place] [phone] Mar, [facility] [address] [id number] [address] [place] [phone] Feb, [facility] [address] [id number] [address] [place] [id number] Feb, [facility] [address] [id number] [address] [place] [id number] Jan, [facility] [address] [id number] [address] [place] [id number] Jan, [facility] [address] [id number] [address] [place] [id number] Jan, [facility] [address] [id number] [address] [place] [phone] Dec, [facility] [address] [id number] [address] [place] [id number] Dec, [facility] [address] [id number] [address] [place] [phone] Dec, [facility] [address] [id number] [address] [place] [id number] 29 Nov, 2015 Diabetes type 2, uncontrolle d E11.65 [facility] [address] [id number] [address] [place] [id number] 14 Nov, 2015 [facility] [address] [id number] [address] [place] [id number] Nov, [facility] [address] [id number] [address] [place] [id number] Oct, [facility] [address] [id number] [address] [place] [phone] Oct, [facility] [address] [id number] [address] [place] [id number] Sep, Controlled type 2 diabetes m ellitus without complication, without long-term current use of insulin E11.9 [facility] [address] [id number] [address] [place] [id number] Sep, [facility] [address] [id number] [address] [place] [phone] Sep, [facility] [address] [id number] [address] [place] [phone] Sep, [facility] [address] [id number] [address] [place] [phone] Sep, [facility] [address] [id number] [address] [place] [id number] Aug, Diabetes type 2, controlled E11.9 ; Anxiety F41.9 ; Carpal tunnel syndrome, left upper limb G56.02 and Carpal tunnel syndrome, right upper limb G56.01 [facility] [address] [id number] [address] [place] [id number] Aug, Urethritis N34.2 [facility] [address] [id number] [address] [place] [id number] Aug, [facility] [address] [id number] [address] [place] [phone] July, Genital warts A63.0 [facility] [address] [id number] [address] [place] [id number] July, [facility] [address] [id number] [address] [place] [id number] July, Genital warts A63.0 [facility] [address] [id number] [address] [place] [id number] July, Anxiety F41.9 [facility] [address] [id number] [address] [place] [id number] Jun, Genital warts A63.0 [facility] [address] [id number] [address] [place] [id number] Jun, Anxiety F41.9 [facility] [address] [id number] [address] [place] [phone] May, Genital warts A63.0 and Diab etes type 2, uncontrolled E11.65 [facility] [address] [id number] [address] [place] [phone] May, [facility] [address] [id number] [address] [place] [phone] May, [facility] [address] [id number] [address] [place] [id number] Apr, [facility] [address] [id number] [address] [place] [phone] Apr, [facility] [address] [id number] [address] [place] [phone] Apr, Diabetes type 2, controlled E11.9 [facility] [address] [id number] [address] [place] [phone] Apr, Genital warts A63.0 [facility] [address] [id number] [address] [place] [phone] Apr, [facility] [address] [id number] [address] [place] [id number] Apr, Diabetes type 2, uncontrolle d E11.65 and Genital warts A63.0 [facility] [address] [id number] [address] [place] [id number] Apr, [facility] [address] [facility] [id number] [address] [place] [id number] Mar, [facility] [address] [facility] [id number] [address] [place] [id number] Mar, [facility] [address] [facility] [id number] [address] [place] [id number] Mar, Family history of diabetes m ellitus V18.0 and Weight loss R63.4 [facility] [address] [place] [id number] [place] [id number] Mar, Genital warts A63.0 and Fami ly history of diabetes mellitus V18.0 [facility] [address] [facility] [id number] [place] [id number] Feb, [place] [address] [id number] Jan, [facility] [address] [place] [id number] [place] [address] Jan, Perianal venereal warts A63. 0 [facility] [address] [place] [id number] [address] [place] [phone] Jan, Urethritis N34.2 and Anxiety F41.9 [facility] [address] [address] Jan, [facility] [address] [place] [id number] [place] [phone] Jan, Urinary tract infection, sit e unspecified N39.0 [facility] [address] [facility] [id number] [address] [place] [phone] Jan, [facility] [address] [place] [id number] [place] [id number] Dec, [facility] [address] [place] [id number] [address] [place] [id number] Dec, HPV (human papilloma virus) anogenital infection A63.0 ; Anxiety F41.9 and Gastroesophageal reflux disease without esophagitis K21.9 [facility] [address] [place] [id number] [address] [place] [id number] Sep, Blood in stool 578.1 [facility] [address] [place] [id number] [address] [place] [phone] Aug, Blood in stool 578.1 [facility] [address] [place] [id number] [address] [place] [id number] Aug, Anxiety 300.00 and Blood in stool 578.1 [facility] [address] [place] [id number] [address] [place] [phone] July, [place] [address] [place] [id number] [place] [id number] July, Family history of diabetes m ellitus V18.0 [place] [address] [address] July, Family history of diabetes m ellitus V18.0 ; Family history of thyroid disease V18.19 ; Polyuria 788.42 ; Polydipsia 783.5 ; Alopecia 704.00 and Fatigue 780.79 [place] [address] [place] [id number] [address] [place] [phone] Jun, [place] [address] [place] [id number] [address] [place] [phone] Jun, [facility] [address] [place] [id number] [address] [place] [phone] Mar, [facility] [address] [place] [id number] [address] [place] [phone] Mar, [facility] [address] [place] [id number] [address] [place] [phone] Mar, [facility] [address] [place] [id number] [address] [place] [phone] Mar, [facility] [address] [id number] [address] [place] [address], [place] [address] Mar, [facility] [address] [id number] [address] [place] [address], [place] [address] Mar, [facility] [address] [id number] [address] [place] [address], [place] [address] Mar, [facility] [address] [id number] [address] [place] [address], [place] [address] Mar, [facility] [address] [id number] [address] [place] [address], [place] [address] Mar, [facility] [address] [id number] [address] [place] [address], [place] [address] Mar, [facility] [address] [id number] [address] [place] [address], [place] [address] Feb, [facility] [address] [id number] [address] [place] [address], [place] [address] Feb, [facility] [address] [id number] [address] [place] [address], [place] [address] Jan, [facility] [address] [id number] [address] [place] [address], [place] [address] Jan, [facility] [address] [id number] [address] [place] [address], [place] [address] Jan, [facility] [address] [id number] [address] [place] [address], [place] [address] Jan, [facility] [address] [id number] [address] [place] [address], [place] [address] Dec, [facility] [address] [id number] [address] [place] [address], [place] [address] Dec, [facility] [address] [id number] [address] [place] [address], [place] [address] Nov, [facility] [address] [id number] [address] [place] [address], [place] [address] Nov, [facility] [address] [id number] [facility] [place] [address] Oct, [facility] [address] [id number] [facility] [place] [address] Oct, [facility] [address] [id number] [facility] [place] [address] Oct, [facility] [address] [id number] [address] [place] [address], [place] [address] Oct, [facility] [address] [id number] [facility] [place] [address] Oct, [facility] [address] [id number] [address] [place] [address], [place] [address] Oct, [facility] [address] [id number] [address] [place] [address], [place] [address] Oct, [facility] [address] [id number] [address] [place] [address], [place] [address] Oct, [facility] [address] [id number] [address] [place] [address], [place] [address] Sep, [facility] [address] [id number] [address] [place] [address], [place] [address] Sep, [facility] [address] [id number] [address] [place] [address], [place] [address] Sep, [facility] [address] [id number] [address] [place] [address] [address] Sep, [facility] [address] [id number] [address] [place] [address], [place] [address] Aug, [facility] [address] [id number] [address] [place] [address], [place] [address] Aug, [facility] [address] [id number] [address] [place] [address], [place] [address] Aug, [facility] [address] [id number] [address] [place] [address], [place] [address] Aug, [facility] [address] [id number] [address] [place] [address], [place] [address] July, [facility] [address] [id number] [address] [place] [address], [place] [address] July, [facility] [address] [id number] [address] [place] [address], [place] [address] July, [facility] [address] [id number] [address] [place] [address], [place] [address] July, [facility] [address] [id number] [address] [place] [address], [place] [address] July, [facility] [address] [id number] [address] [place] [address], [place] [address] July, [facility] [address] [id number] [address] [place] [address], [place] [address] Jun, [facility] [address] [id number] [address] [place] [address], [place] [address] Jun, [facility] [address] [id number] [address] [place] [address], [place] [address] Jun, [facility] [address] [id number] [address] [place] [address], [place] [address] Jun, [facility] [address] [id number] [address] [place] [address], [place] [address] Jun, [facility] [address] [id number] [address] [place] [address], [place] [address] Jun, [facility] [address] [id number] [address] [place] [address], [place] [address] Jun, [facility] [address] [id number] [address] [place] [address], [place] [address] Jun, [facility] [address] [id number] [address] [place] [address], [place] [address] May, [facility] [address] [id number] [address] [place] [address], [place] [address] May, [facility] [address] [id number] [address] [place] [address], [place] [address] May, [facility] [address] [id number] [address] [place] [address], [place] [address] Apr, [facility] [address] [id number] [address] [place] [address], [place] [address] Apr, [facility] [address] [id number] [address] [place] [address], [place] [address] Apr, [facility] [address] [id number] [address] [place] [address], [place] [address] Apr, [facility] [address] [id number] [address] [place] [address], [place] [address] Mar, [facility] [address] [id number] [address] [place] [address], [place] [address] Mar, [facility] [address] [id number] [address] [place] [address], [place] [address] Mar, [facility] [address] [id number] [address] [place] [address], [place] [address] Mar, [facility] [address] [id number] [address] [place] [address], [place] [address] Mar, [facility] [address] [id number] [address] [place] [address], [place] [address] Mar, [facility] [address] [id number] [address] [place] [address], [place] [address] Feb, [facility] [address] [id number] [address] [place] [address], [place] [address] Feb, [facility] [address] [id number] [address] [place] [address], [place] [address] Jan, [facility] [address] [id number] [address] [place] [address], [place] [address] Jan, [facility] [address] [id number] [address] [place] [address], [place] [address] Jan, [facility] [address] [id number] [address] [place] [address], [place] [address] Jan, [facility] [address] [id number] [address] [place] [address], [place] [address] Jan, [facility] [address] [id number] [address] [place] [address], [place] [address] Jan, [facility] [address] [id number] [address] [place] [address], [place] [address] Jan, [facility] [address] [id number] [address] [place] [address], [place] [address] Dec, [facility] [address] [id number] [address] [place] [address], [place] [address] Dec, [facility] [address] [id number] [address] [place] [address], [place] [address] Nov, [facility] [address] [id number] [address] [place] [address], [place] [address] Nov, [facility] [address] [id number] [address] [place] [address], [place] [address] Nov, [facility] [address] [id number] [address] [place] [address], [place] [address] Oct, [facility] [address] [id number] [address] [place] [address], [place] [address] Oct, [facility] [address] [id number] [address] [place] [address], [place] [address] Oct, [facility] [address] [id number] [address] [place] [address], [place] [address] Oct, [facility] [address] [id number] [address] [place] [address], [place] [address] Sep, [facility] [address] [id number] [address] [place] [id number] Sep, [facility] [address] [id number] [address] [place] [address] Aug, [facility] [address] [id number] [address] [place] [address] Aug, [facility] [address] [id number] [address] [place] [id number] Aug, [facility] [address] [id number] [address] [place] [address] Aug, [facility] [address] [id number] [address] [place] [address] July, [facility] [address] [id number] [address] [place] [address] July, [facility] [address] [id number] [address] [place] [id number] July, [facility] [address] [id number] [address] [place] [address] July, [facility] [address] [id number] [address] [place] [id number] Jun, [facility] [address] [id number] [address] [place] [address] Jun, [facility] [address] [id number] [address] [place] [address] Feb, [facility] [address] [id number] [address] [place] [id number] Feb, [facility] [address] [id number] [address] [place] [id number] Mar, IMMUNIZATIONS No Known Immunizations SOCIAL HISTORY [...]
--- OUTSIDE RECORDS SUMMARY | 2019-08-16 14:10 | XMS REPORT ---
Author Author Joseph MARIA Organization [facility] Address [address] [place] [address] Care Team Providers Care Wellness Trainer Name Role Phone MIRELLA MARIA Unavailable PROBLEMS Type Condition ICD9-CM Code [id number] Code Onset Dates Condition S tatus SNOMED Code Problem Mood disorder F39 Active 234506 05 Problem Low back pain M54.5 Active 676994 005 Problem Acquired hypothyroidism E03.9 Active 494925600 Problem Diabetes type 2, uncontrolled E11.65 Active 250896127 Problem Diabetes type 2, controlled E11.9 Ac tive 75287356 Problem Controlled type 2 diabetes m ellitus without complication, without long- term current use of insulin E11.9 Active 314226639 Problem Uncontrolled type 2 diabetes mellitus with hyperglycemia E11.65 Active 990500853 Problem Hypertension, benign I10 Active 21349688 Problem Other chronic pain G89.29 Active 8 4014332 Problem Shoulder pain, right M25.511 Active 91473478 Problem Cervical radiculopathy M54.12 Active 65782784 Problem History of urethral stricture Z87.448 Active 946624069 Problem [facility] current use of insulin Z79.4 Active 115171226 Problem Type 2 diabetes mellitus without complications E11 .9 Active 636450563 ALLERGIES No Information ENCOUNTERS Encounter Location Date Diagnosis [facility] [id number] [place] [address] Feb, Controlled type 2 diabetes mellitus with out complication, without long-term current use of insulin E11.9 [facility] [address] [address] Feb, Uncontrolled type 2 diabetes mellitus wi th hyperglycemia E11.65 ; Other chronic pain G89.29 ; Pain in right shoulder M25.511 and Thoracic spine pain M54.6 [facility] [address] [address] Nov, [facility] [id number] [place] [address] Aug, Diabetes type 2, uncontrolled E11.65 [facility] [id number] [place] [address] July, [facility] [id number] [place] [id number] July, Dental examination Z01.20 and Caries K02 .9 [place] [address] [address] Jun, Controlled type 2 diabetes mellitus with out complication, without long-term current use of insulin E11.9 [place] [address] [address] May, Controlled type 2 diabetes mellitus with out complication, without long-term current use of insulin E11.9 [place] [address] [address] Apr, [facility] [address] [address] Mar, Controlled type 2 diabetes mellitus with out complication, without long-term current use of insulin E11.9 [place] [id number] [place] [address] Jan, [place] [address] [address] Dec, Diabetes type 2, uncontrolled E11.65 [place] [address] [address] Dec, Type 2 diabetes mellitus without complic ations E11.9 ; 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 and Cervicalgia M54.2 [place] [address] [address] Dec, Type 2 diabetes mellitus without complic ations E11.9 ; [facility] current use of insulin Z79.4 and Cervicalgia M54.2 [place] [address] [address] Dec, Controlled type 2 diabetes mellitus with out complication, without long-term current use of insulin E11.9 [place] [id number] [place] [address] Nov, [facility] [address] [address] Oct, Diabetes type 2, uncontrolled E11.65 [place] [address] [address] Sep, Diabetes type 2, uncontrolled E11.65 [place] [address] [address] Jun, Controlled type 2 diabetes mellitus with out complication, without long-term current use of insulin E11.9 [place] [address] [address] May, [place] [address] [address] May, Radiculopathy of cervical region M54.12 [place] [address] [address] 14 May, 2017 Controlled type 2 diabetes mellitus with out complication, without long-term current use of insulin E11.9 [place] [address] [address] May, [place] [address] [address] May, Controlled type 2 diabetes mellitus with out complication, without long-term current use of insulin E11.9 [place] [address] [address] May, Controlled type 2 diabetes mellitus with out complication, without long-term current use of insulin E11.9 [place] [address] [address] 05 May, 2017 Controlled type 2 diabetes mellitus with out complication, without long-term current use of insulin E11.9 [place] [address] [address] 15 Apr, 2017 [place] [id number] [place] [address] Apr, Controlled type 2 diabetes mellitus with out complication, without long-term current use of insulin E11.9 [place] [id number] [place] [address] 07 Apr, 2017 [place] [address] [address] Apr, Controlled type 2 diabetes mellitus with out complication, without long-term current use of insulin E11.9 [place] [address] [address] Mar, [place] [address] [address] Mar, Radiculopathy of cervical region M54.12 [place] [address] [address] Mar, Controlled type 2 diabetes mellitus with out complication, without long-term current use of insulin E11.9 [place] [address] [address] Feb, Cervical radiculopathy M54.12 ; Acute cy stitis without hematuria N30.00 and History of urethral stricture Z87.448 [place] [address] [address] Feb, Controlled type 2 diabetes mellitus with out complication, without long-term current use of insulin E11.9 [place] [id number] [place] [address] 05 Feb, 2017 [place] [address] [address] 15 Jan, 2017 Diabetes type 2, uncontrolled E11.65 [place] [address] [address] 15 Jan, 2017 [place] [address] [address] Jan, Controlled type 2 diabetes mellitus with out complication, without long-term current use of insulin E11.9 ; Chest wall pain R07.89 and Thoracic spine pain M54.6 [facility] [id number] [place] [address] Dec, [facility] [address] [address] Dec, [facility] [address] [address] Nov, [facility] [address] [address] Nov, [facility] [id number] [place] [address] Nov, Trichomonas exposure Z20.2 [facility] [address] [address] Oct, [facility] [address] [address] Oct, [facility] [address] [address] Oct, [facility] [address] [address] Oct, [facility] [address] [address] Sep, [facility] [address] [address] Sep, [facility] [address] [address] Aug, [facility] [address] [address] Aug, [facility] [address] [address] Aug, [facility] [address] [address] Aug, [facility] [id number] [place] [address] July, Diabetes type 2, controlled E11.9 [facility] [id number] [place] [address] July, [facility] [id number] [place] [address] July, [facility] [id number] [place] [address] July, [facility] [id number] [place] [address] July, [facility] [id number] [place] [address] Jun, [facility] [id number] [place] [address] Jun, [facility] [id number] [place] [address] May, [facility] [id number] [place] [address] May, [facility] [id number] [place] [address] May, [facility] [id number] [place] [address] May, Controlled type 2 diabetes mellitus with out complication, without long-term current use of insulin E11.9 [facility] [id number] [place] [address] Apr, [facility] [id number] [place] [address] Apr, [facility] [id number] [place] [address] Mar, [facility] [id number] [place] [address] Mar, [facility] [id number] [place] [address] Feb, [facility] [address] [id number] [place] [address] Feb, [facility] [address] [id number] [place] [address] Jan, [facility] [id number] [place] [address] Jan, [facility] [id number] [place] [address] Jan, [facility] [address] [id number] [place] [address] Dec, [facility] [id number] [place] [address] Dec, [facility] [id number] [place] [address] Dec, [facility] [id number] [place] [address] Nov, Diabetes type 2, uncontrolled E11.65 [facility] [id number] [place] [address] 14 Nov, 2015 [facility] [id number] [place] [address] Nov, [facility] [id number] [place] [address] Oct, [facility] [id number] [place] [address] Oct, [facility] [id number] [place] [address] Sep, Controlled type 2 diabetes mellitus with out complication, without long-term current use of insulin E11.9 [facility] [id number] [place] [address] Sep, [facility] [id number] [place] [address] Sep, [facility] [id number] [place] [address] 07 Sep, 2015 [facility] [address] [address] 05 Sep, 2015 [facility] [address] [address] Aug, Diabetes type 2, controlled E11.9 ; Anxi ety F41.9 ; Carpal tunnel syndrome, left upper limb G56.02 and Carpal tunnel syndrome, right upper limb G56.01 [facility] [address] [address] Aug, Urethritis N34.2 [facility] [address] [address] Aug, [facility] [address] [address] July, Genital warts A63.0 [facility] [address] [address] July, [facility] [address] [address] July, Genital warts A63.0 [facility] [address] [address] July, Anxiety F41.9 [facility] [address] [address] Jun, Genital warts A63.0 [facility] [address] [address] 08 Jun, 2015 Anxiety F41.9 [facility] [address] [address] 15 May, 2015 Genital warts A63.0 and Diabetes type 2, uncontrolled E11.65 [facility] [address] [address] May, [facility] [address] [address] May, [facility] [id number] [place] [address] Apr, [facility] [address] [address] Apr, [facility] [id number] [place] [address] Apr, Diabetes type 2, controlled E11.9 [facility] [address] [address] Apr, Genital warts A63.0 [facility] [address] [address] Apr, [facility] [address] [address] Apr, Diabetes type 2, uncontrolled E11.65 and Genital warts A63.0 [facility] [address] [address] Apr, [facility] [address] [address] Mar, [facility] [address] [address] Mar, [facility] [address] [address] Mar, Family history of diabetes mellitus V18. 0 and Weight loss R63.4 [facility] [address] [address] Mar, Genital warts A63.0 and Family history o f diabetes mellitus V18.0 [facility] [address] [address] Feb, [facility] [address] [address] Jan, [facility] [address] [address] Jan, Perianal venereal warts A63.0 [place] [address] [address] Jan, Urethritis N34.2 and Anxiety F41.9 [place] [address] [address] Jan, [place] [address] [address] Jan, Urinary tract infection, site unspecifie d N39.0 [place] [address] [address] Jan, [place] [address] [address] Dec, [place] [address] [address] Dec, HPV (human papilloma virus) anogenital i nfection A63.0 ; Anxiety F41.9 and Gastroesophageal reflux disease without esophagitis K21.9 [place] [address] [address] Sep, Blood in stool 578.1 [place] [address] [address] Aug, Blood in stool 578.1 [place] [address] [address] Aug, Anxiety 300.00 and Blood in stool 578.1 [place] [address] [address] July, [place] [address] [address] July, Family history of diabetes mellitus V18. 0 [place] [address] [address] July, Family history of diabetes mellitus V18. 0 ; Family history of thyroid disease V18.19 ; Polyuria 788.42 ; Polydipsia 783.5 ; Alopecia 704.00 and Fatigue 780.79 [facility] [address] [id number] [place] [address] Jun, [facility] [address] [id number] [place] [address] Jun, [facility] [address] [id number] [place] [address] Mar, [facility] [id number] [place] [address] Mar, [facility] [address] [id number] [place] [address] Mar, [facility] [id number] [place] [address] Mar, [facility] [id number] [place] [address] Mar, [facility] [id number] [place] [address] Mar, [facility] [id number] [place] [address] Mar, [facility] [id number] [place] [address] Mar, [facility] [address] [id number] [place] [address] Mar, [facility] [id number] [place] [address] Mar, [facility] [address] [id number] [place] [address] Feb, [facility] [id number] [place] [address] Feb, [facility] [address] [id number] [place] [address] Jan, [facility] [id number] [place] [address] Jan, [facility] [id number] [place] [address] Jan, [facility] [address] [id number] [place] [address] Jan, [facility] [address] [id number] [place] [address] Dec, [facility] [address] [id number] [place] [address] Dec, [facility] [address] [id number] [place] [address] Nov, [facility] [address] [id number] [place] [address] Nov, [facility] [address] [id number] [place] [address] Oct, [facility] [address] [id number] [place] [address] Oct, [facility] [address] [id number] [place] [address] Oct, [facility] [address] [id number] [place] [address] Oct, [facility] [address] [id number] [place] [address] Oct, [facility] [address] [id number] [place] [address] Oct, [facility] [address] [id number] [place] [address] Oct, [facility] [address] [id number] [place] [address] Oct, [facility] [address] [id number] [place] [address] Sep, [facility] [address] [id number] [place] [address] Sep, [facility] [address] [id number] [place] [address] Sep, [facility] [address] [id number] [place] [address] Sep, [facility] [address] [id number] [place] [address] Aug, [facility] [address] [id number] [place] [address] Aug, [facility] [address] [id number] [place] [address] Aug, [facility] [address] [id number] [place] [address] Aug, [facility] [address] [id number] [place] [address] July, [facility] [address] [id number] [place] [address] July, [facility] [address] [id number] [place] [address] July, [facility] [address] [id number] [place] [address] July, [facility] [address] [id number] [place] [address] July, [facility] [address] [id number] [place] [address] July, [facility] [address] [id number] [place] [address] Jun, [facility] [address] [id number] [place] [address] 23 Jun, 2013 [facility] [address] [id number] [place] [address] 15 Jun, 2013 [facility] [address] [id number] [place] [address] 15 Jun, 2013 [facility] [address] [id number] [place] [address] 14 Jun, 2013 [facility] [address] [id number] [place] [address] 14 Jun, 2013 [facility] [address] [id number] [place] [address] 14 Jun, 2013 [facility] [address] [id number] [place] [address] 14 Jun, 2013 [facility] [address] [id number] [place] [address] 19 May, 2013 [facility] [address] [id number] [place] [address] 19 May, 2013 [facility] [address] [id number] [place] [address] 18 May, 2013 [facility] [address] [id number] [place] [address] Apr, [facility] [address] [id number] [place] [address] Apr, [facility] [address] [id number] [place] [address] Apr, [facility] [address] [id number] [place] [address] Apr, [facility] [address] [id number] [place] [address] Mar, [facility] [address] [id number] [place] [address] Mar, [facility] [address] [id number] [place] [address] Mar, [facility] [address] [id number] [place] [address] Mar, [facility] [address] [id number] [place] [address] Mar, [facility] [address] [id number] [place] [address] Mar, [facility] [address] [id number] [place] [address] Feb, [facility] [address] [id number] [place] [address] Feb, [facility] [address] [id number] [place] [address] Jan, [facility] [address] [id number] [place] [address] Jan, [facility] [address] [id number] [place] [address] Jan, [facility] [address] [id number] [place] [address] Jan, [facility] [address] [id number] [place] [address] Jan, [facility] [address] [id number] [place] [address] Jan, [facility] [address] [id number] [place] [address] Jan, [facility] [address] [id number] [place] [address] Dec, [facility] [address] [id number] [place] [address] Dec, [facility] [address] [id number] [place] [address] Nov, [facility] [address] [id number] [place] [address] Nov, [facility] [address] [id number] [place] [address] Nov, [facility] [address] [id number] [place] [address] Oct, [facility] [address] [id number] [place] [address] Oct, [facility] [address] [id number] [place] [address] Oct, [facility] [address] [id number] [place] [address] Oct, [facility] [id number] [place] [address] Sep, [facility] [id number] [place] [address] Sep, [facility] [id number] [place] [address] Aug, [facility] [id number] [place] [address] Aug, [facility] [id number] [place] [address] Aug, [facility] [id number] [place] [address] Aug, [facility] [id number] [place] [address] July, [facility] [id number] [place] [address] July, [facility] [id number] [place] [address] July, [facility] [id number] [place] [address] July, [facility] [id number] [place] [address] Jun, [facility] [id number] [place] [address] Jun, [facility] [id number] [place] [address] Feb, [facility] [id number] [place] [address] Feb, [facility] [id number] [place] [address] Mar, IMMUNIZATIONS No Known Immunizations SOCIAL HISTORY [...]
--- OUTSIDE RECORDS SUMMARY | 2019-08-16 14:10 | XMS REPORT ---
Author Author Joseph MARIA Organization [facility] [place] Address [address] [place] [address] Care Team Providers Care Director Of Analytical Development Name Role Phone MIRELLA MARIA Unavailable PROBLEMS Type Condition ICD9-CM Code [id number] Code Onset Dates Condition S tatus SNOMED Code Problem Mood disorder F39 Active 894517 05 Problem Low back pain M54.5 Active 304788 005 Problem Acquired hypothyroidism E03.9 Active 489790726 Problem Diabetes type 2, uncontrolled E11.65 Active 096095812 Problem Diabetes type 2, controlled E11.9 Ac tive 56590076 Problem Controlled type 2 diabetes m ellitus without complication, without long- term current use of insulin E11.9 Active 330312144 Problem Uncontrolled type 2 diabetes mellitus with hyperglycemia E11.65 Active 649520393 Problem Hypertension, benign I10 Active 87501961 Problem Other chronic pain G89.29 Active 8 9003147 Problem Shoulder pain, right M25.511 Active 28752235 Problem Cervical radiculopathy M54.12 Active 71515345 Problem History of urethral stricture Z87.448 Active 533573560 Problem retirement current use of insulin Z79.4 Active 300674316 Problem Type 2 diabetes mellitus without complications E11 .9 Active 160230529 ALLERGIES No Information ENCOUNTERS Encounter Location Date Diagnosis [facility] [place] [id number] [place] [address] Feb, Controlled type 2 diabetes mellitus with out complication, without long-term current use of insulin E11.9 [facility] [place] [address] [address] Feb, Uncontrolled type 2 diabetes mellitus wi th hyperglycemia E11.65 ; Other chronic pain G89.29 ; Pain in right shoulder M25.511 and Thoracic spine pain M54.6 [facility] [place] [address] [address] Nov, [facility] [place] [id number] [place] [address] Aug, Diabetes type 2, uncontrolled E11.65 [facility] [place] [id number] [place] [address] July, [facility] [address] [id number] [place] [id number] July, Dental examination Z01.20 and Caries K02 .9 [place] [address] [address] Jun, Controlled type 2 diabetes mellitus with out complication, without long-term current use of insulin E11.9 [place] [address] [address] May, Controlled type 2 diabetes mellitus with out complication, without long-term current use of insulin E11.9 [place] [address] [address] Apr, [facility] [place] [address] [address] Mar, Controlled type 2 diabetes mellitus with out complication, without long-term current use of insulin E11.9 [place] [id number] [place] [address] Jan, [place] [address] [address] Dec, Diabetes type 2, uncontrolled E11.65 [place] [address] [address] Dec, Type 2 diabetes mellitus without complic ations E11.9 ; 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 and Cervicalgia M54.2 [place] [address] [address] Dec, Type 2 diabetes mellitus without complic ations E11.9 ; retirement current use of insulin Z79.4 and Cervicalgia M54.2 [place] [address] [address] Dec, Controlled type 2 diabetes mellitus with out complication, without long-term current use of insulin E11.9 [place] [id number] [place] [address] Nov, [facility] [place] [address] [address] Oct, Diabetes type 2, uncontrolled E11.65 [place] [address] [address] Sep, Diabetes type 2, uncontrolled E11.65 [place] [address] [address] Jun, Controlled type 2 diabetes mellitus with out complication, without long-term current use of insulin E11.9 [place] [address] [address] May, [place] [address] [address] May, Radiculopathy of cervical region M54.12 [place] [address] [address] 14 May, 2017 Controlled type 2 diabetes mellitus with out complication, without long-term current use of insulin E11.9 [place] [address] [address] May, [place] [address] [address] May, Controlled type 2 diabetes mellitus with out complication, without long-term current use of insulin E11.9 [place] [address] [address] May, Controlled type 2 diabetes mellitus with out complication, without long-term current use of insulin E11.9 [place] [address] [address] 05 May, 2017 Controlled type 2 diabetes mellitus with out complication, without long-term current use of insulin E11.9 [place] [address] [address] 15 Apr, 2017 [place] [id number] [place] [address] Apr, Controlled type 2 diabetes mellitus with out complication, without long-term current use of insulin E11.9 [place] [id number] [place] [address] 07 Apr, 2017 [place] [address] [address] Apr, Controlled type 2 diabetes mellitus with out complication, without long-term current use of insulin E11.9 [place] [address] [address] Mar, [place] [address] [address] Mar, Radiculopathy of cervical region M54.12 [place] [address] [address] Mar, Controlled type 2 diabetes mellitus with out complication, without long-term current use of insulin E11.9 [place] [address] [address] Feb, Cervical radiculopathy M54.12 ; Acute cy stitis without hematuria N30.00 and History of urethral stricture Z87.448 [place] [address] [address] Feb, Controlled type 2 diabetes mellitus with out complication, without long-term current use of insulin E11.9 [place] [id number] [place] [address] 05 Feb, 2017 [place] [address] [address] 15 Jan, 2017 Diabetes type 2, uncontrolled E11.65 [place] [address] [address] 15 Jan, 2017 [place] [address] [address] Jan, Controlled type 2 diabetes mellitus with out complication, without long-term current use of insulin E11.9 ; Chest wall pain R07.89 and Thoracic spine pain M54.6 [facility] [place] [id number] [place] [address] Dec, [facility] [place] [address] [address] Dec, [facility] [place] [address] [address] Nov, [facility] [place] [address] [address] Nov, [facility] [address] [facility] [id number] [place] [address] Nov, Trichomonas exposure Z20.2 [facility] [place] [address] [address] Oct, [facility] [place] [address] [address] Oct, [facility] [place] [address] [address] Oct, [facility] [place] [address] [address] Oct, [facility] [place] [address] [address] Sep, [facility] [place] [address] [address] Sep, [facility] [place] [address] [address] Aug, [facility] [place] [address] [address] Aug, [facility] [place] [address] [address] Aug, [facility] [place] [address] [address] Aug, [facility] [place] [id number] [place] [address] July, Diabetes type 2, controlled E11.9 [facility] [place] [id number] [place] [address] July, [facility] [place] [id number] [place] [address] July, [facility] [place] [id number] [place] [address] July, [facility] [place] [id number] [place] [address] July, [facility] [place] [id number] [place] [address] Jun, [facility] [place] [id number] [place] [address] Jun, [facility] [place] [id number] [place] [address] May, [facility] [place] [id number] [place] [address] May, [facility] [place] [id number] [place] [address] May, [facility] [place] [id number] [place] [address] May, Controlled type 2 diabetes mellitus with out complication, without long-term current use of insulin E11.9 [facility] [place] [id number] [place] [address] Apr, [facility] [place] [id number] [place] [address] Apr, [facility] [place] [id number] [place] [address] Mar, [facility] [place] [id number] [place] [address] Mar, [facility] [place] [id number] [place] [address] Feb, [facility] [place] [address] [id number] [place] [address] Feb, [facility] [place] [address] [id number] [place] [address] Jan, [facility] [place] [id number] [place] [address] Jan, [facility] [place] [id number] [place] [address] Jan, [facility] [place] [address] [id number] [place] [address] Dec, [facility] [place] [id number] [place] [address] Dec, [facility] [place] [id number] [place] [address] Dec, [facility] [place] [id number] [place] [address] Nov, Diabetes type 2, uncontrolled E11.65 [facility] [place] [id number] [place] [address] 14 Nov, 2015 [facility] [place] [id number] [place] [address] Nov, [facility] [place] [id number] [place] [address] Oct, [facility] [place] [id number] [place] [address] Oct, [facility] [place] [id number] [place] [address] Sep, Controlled type 2 diabetes mellitus with out complication, without long-term current use of insulin E11.9 [facility] [place] [id number] [place] [address] Sep, [facility] [place] [id number] [place] [address] Sep, [facility] [place] [id number] [place] [address] 07 Sep, 2015 [facility] [place] [address] [address] 05 Sep, 2015 [facility] [place] [address] [address] Aug, Diabetes type 2, controlled E11.9 ; Anxi ety F41.9 ; Carpal tunnel syndrome, left upper limb G56.02 and Carpal tunnel syndrome, right upper limb G56.01 [facility] [place] [address] [address] Aug, Urethritis N34.2 [facility] [place] [address] [address] Aug, [facility] [place] [address] [address] July, Genital warts A63.0 [facility] [place] [address] [address] July, [facility] [place] [address] [address] July, Genital warts A63.0 [facility] [place] [address] [address] July, Anxiety F41.9 [facility] [place] [address] [address] Jun, Genital warts A63.0 [facility] [place] [address] [address] 08 Jun, 2015 Anxiety F41.9 [facility] [place] [address] [address] 15 May, 2015 Genital warts A63.0 and Diabetes type 2, uncontrolled E11.65 [facility] [place] [address] [address] May, [facility] [place] [address] [address] May, [facility] [place] [id number] [place] [address] Apr, [facility] [place] [address] [address] Apr, [facility] [place] [id number] [place] [address] Apr, Diabetes type 2, controlled E11.9 [facility] [place] [address] [address] Apr, Genital warts A63.0 [facility] [place] [address] [address] Apr, [facility] [place] [address] [address] Apr, Diabetes type 2, uncontrolled E11.65 and Genital warts A63.0 [facility] [place] [address] [address] Apr, [facility] [place] [address] [address] Mar, [facility] [place] [address] [address] Mar, [facility] [place] [address] [address] Mar, Family history of diabetes mellitus V18. 0 and Weight loss R63.4 [facility] [place] [address] [address] Mar, Genital warts A63.0 and Family history o f diabetes mellitus V18.0 [facility] [place] [address] [address] Feb, [facility] [place] [address] [address] Jan, [facility] [place] [address] [address] Jan, Perianal venereal warts A63.0 [address] [place] [address] Jan, Urethritis N34.2 and Anxiety F41.9 [address] [address] [address] Jan, [address] [address] [address] Jan, Urinary tract infection, site unspecifie d N39.0 [address] [address] [address] Jan, [place] [address] [address] Dec, [place] [address] [address] Dec, HPV (human papilloma virus) anogenital i nfection A63.0 ; Anxiety F41.9 and Gastroesophageal reflux disease without esophagitis K21.9 [place] [address] [address] Sep, Blood in stool 578.1 [address] [address] [address] Aug, Blood in stool 578.1 [address] [address] [address] Aug, Anxiety 300.00 and Blood in stool 578.1 [address] [address] [address] July, [place] [address] [address] July, Family history of diabetes mellitus V18. 0 [place] [address] [address] July, Family history of diabetes mellitus V18. 0 ; Family history of thyroid disease V18.19 ; Polyuria 788.42 ; Polydipsia 783.5 ; Alopecia 704.00 and Fatigue 780.79 [facility] [address] [id number] [place] [address] Jun, [facility] [address] [id number] [place] [address] Jun, [facility] [address] [id number] [place] [address] Mar, [facility] [id number] [place] [address] Mar, [facility] [address] [id number] [place] [address] Mar, [facility] [id number] [place] [address] Mar, [facility] [id number] [place] [address] Mar, [facility] [id number] [place] [address] Mar, [facility] [id number] [place] [address] Mar, [facility] [id number] [place] [address] Mar, [facility] [address] [id number] [place] [address] Mar, [facility] [id number] [place] [address] Mar, [facility] [address] [id number] [place] [address] Feb, [facility] [id number] [place] [address] Feb, [facility] [address] [id number] [place] [address] Jan, [facility] [id number] [place] [address] Jan, [facility] [id number] [place] [address] Jan, [facility] [address] [id number] [place] [address] Jan, [facility] [address] [facility] [id number] [place] [address] Dec, [facility] [address] [id number] [place] [address] Dec, [facility] [address] [facility] [id number] [place] [address] Nov, [facility] [address] [facility] [id number] [place] [address] Nov, [facility] [address] [id number] [place] [address] Oct, [facility] [address] [id number] [place] [address] Oct, [facility] [address] [id number] [place] [address] Oct, [facility] [address] [facility] [id number] [place] [address] Oct, [facility] [address] [id number] [place] [address] Oct, [facility] [address] [id number] [place] [address] Oct, [facility] [address] [id number] [place] [address] Oct, [facility] [address] [facility] [id number] [place] [address] Oct, [facility] [address] [id number] [place] [address] Sep, [facility] [address] [id number] [place] [address] Sep, [facility] [address] [id number] [place] [address] Sep, [facility] [address] [id number] [place] [address] Sep, [facility] [address] [id number] [place] [address] Aug, [facility] [address] [id number] [place] [address] Aug, [facility] [address] [id number] [place] [address] Aug, [facility] [address] [id number] [place] [address] Aug, [facility] [address] [id number] [place] [address] July, [facility] [address] [id number] [place] [address] July, [facility] [address] [id number] [place] [address] July, [facility] [address] [id number] [place] [address] July, [facility] [address] [id number] [place] [address] July, [facility] [address] [id number] [place] [address] July, [facility] [address] [id number] [place] [address] Jun, [facility] [address] [id number] [place] [address] 23 Jun, 2013 [facility] [address] [id number] [place] [address] 15 Jun, 2013 [facility] [address] [id number] [place] [address] 15 Jun, 2013 [facility] [address] [id number] [place] [address] 14 Jun, 2013 [facility] [address] [id number] [place] [address] 14 Jun, 2013 [facility] [address] [facility] [id number] [place] [address] 14 Jun, 2013 [facility] [address] [facility] [id number] [place] [address] 14 Jun, 2013 [facility] [address] [id number] [place] [address] 19 May, 2013 [facility] [address] [id number] [place] [address] 19 May, 2013 [facility] [address] [facility] [id number] [place] [address] 18 May, 2013 [facility] [address] [id number] [place] [address] Apr, [facility] [address] [id number] [place] [address] Apr, [facility] [address] [id number] [place] [address] Apr, [facility] [address] [id number] [place] [address] Apr, [facility] [address] [id number] [place] [address] Mar, [facility] [address] [id number] [place] [address] Mar, [facility] [address] [id number] [place] [address] Mar, [facility] [address] [id number] [place] [address] Mar, [facility] [address] [id number] [place] [address] Mar, [facility] [address] [id number] [place] [address] Mar, [facility] [address] [id number] [place] [address] Feb, [facility] [address] [id number] [place] [address] Feb, [facility] [address] [id number] [place] [address] Jan, [facility] [address] [id number] [place] [address] Jan, [facility] [address] [id number] [place] [address] Jan, [facility] [address] [id number] [place] [address] Jan, [facility] [address] [id number] [place] [address] Jan, [facility] [address] [id number] [place] [address] Jan, [facility] [address] [id number] [place] [address] Jan, [facility] [address] [id number] [place] [address] Dec, [facility] [address] [id number] [place] [address] Dec, [facility] [address] [id number] [place] [address] Nov, [facility] [address] [id number] [place] [address] Nov, [facility] [address] [id number] [place] [address] Nov, [facility] [address] [id number] [place] [address] Oct, [facility] [address] [id number] [place] [address] Oct, [facility] [address] [id number] [place] [address] Oct, [facility] [address] [id number] [place] [address] Oct, [facility] [place] [id number] [place] [address] Sep, [facility] [place] [id number] [place] [address] Sep, [facility] [place] [id number] [place] [address] Aug, [facility] [place] [id number] [place] [address] Aug, [facility] [place] [id number] [place] [address] Aug, [facility] [place] [id number] [place] [address] Aug, [facility] [place], [facility] [id number] [place] [address] July, [facility] [place] [id number] [place] [address] July, [facility] [place], [facility] [id number] [place] [address] July, [facility] [place], [facility] [id number] [place] [address] July, [facility] [place], [facility] [id number] [place] [address] Jun, [facility] [place], [facility] [id number] [place] [address] Jun, [facility] [place], [facility] [id number] [place] [address] Feb, [facility] [place], [facility] [id number] [place] [address] Feb, [facility] [place], [facility] [id number] [place] [address] Mar, IMMUNIZATIONS No Known Immunizations SOCIAL HISTORY [...]
--- OUTSIDE RECORDS SUMMARY | 2019-08-16 14:10 | XMS REPORT ---
Author Author Joseph Ibrahim Doctor Organization [facility] Address Unknown Phone Unavailable Care Team Providers Care Plant Physiologist Name Role Phone Migration, Doctor Unavailable Unavailable PROBLEMS Type Condition ICD9-CM Code TAY94-RL Code Onset Dates Condition S tatus SNOMED Code Problem Mood disorder F39 Active 633584 05 Problem Low back pain M54.5 Active 022894 005 Problem Acquired hypothyroidism E03.9 Active 589736795 Problem Diabetes type 2, uncontrolled E11.65 Active 913221384 Problem Diabetes type 2, controlled E11.9 Ac tive 30012576 Problem Controlled type 2 diabetes m ellitus without complication, without long- term current use of insulin E11.9 Active 860257136 Problem Uncontrolled type 2 diabetes mellitus with hyperglycemia E11.65 Active 975277028 Problem Hypertension, benign I10 Active 06220650 Problem Other chronic pain G89.29 Active 8 6752666 Problem Shoulder pain, right M25.511 Active 17164767 Problem Cervical radiculopathy M54.12 Active 86636226 Problem History of urethral stricture Z87.448 Active 239763916 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 767410846 Problem Type 2 diabetes mellitus without complications E11 .9 Active 521068688 ALLERGIES No Information ENCOUNTERS Encounter Location Date Diagnosis [place] [address] [facility] [id number] [address] [place] [address] Feb, Controlled type 2 diabetes m ellitus without complication, without long-term current use of insulin E11.9 [facility] [address] [facility] [id number] [address] [place] [address] Feb, Uncontrolled type 2 diabetes mellitus with hyperglycemia E11.65 ; Other chronic pain G89.29 ; Pain in right shoulder M25.511 and Thoracic spine pain M54.6 [facility] [address] [facility] [id number] [address] [place] [address] Nov, [facility] [address] [facility] [id number] [address] [place] [address] Aug, Diabetes type 2, uncontrolle d E11.65 [facility] [address] [facility] [id number] [address] [place] [address] July, [facility] [address] [id number] [address] [place] [id number] July, Dental examination Z01.20 an d Caries K02.9 [facility] [address] [facility] [id number] [address] [place] [address] Jun, Controlled type 2 diabetes m ellitus without complication, without long-term current use of insulin E11.9 [facility] [address] [facility] [id number] [address] [place] [address] May, Controlled type 2 diabetes m ellitus without complication, without long-term current use of insulin E11.9 [facility] [address] [facility] [id number] [address] [place] [address] Apr, [facility] [address] [facility] [id number] [address] [place] [phone] Mar, Controlled type 2 diabetes m ellitus without complication, without long-term current use of insulin E11.9 [facility] [address] [facility] [id number] [address] [place] [address] Jan, [facility] [address] [facility] [id number] [address] [place] [address] Dec, Diabetes type 2, uncontrolle d E11.65 [facility] [address] [facility] [id number] [address] [place] [address] Dec, Type 2 diabetes mellitus wit hout complications E11.9 ; [facility] current use of insulin Z79.4 and Cervicalgia M54.2 [facility] [address] [facility] [id number] [address] [place] [address] Dec, Type 2 diabetes mellitus wit hout complications E11.9 ; 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 and Cervicalgia M54.2 [facility] [address] [id number] [address] [place] [address] Dec, Controlled type 2 diabetes m ellitus without complication, without long-term current use of insulin E11.9 [facility] [address] [id number] [address] [place] [address] Nov, [place] [address] [id number] [address] [place] [address] Oct, Diabetes type 2, uncontrolle d E11.65 [facility] [address] [id number] [address] [place] [address] Sep, Diabetes type 2, uncontrolle d E11.65 [place] [address] [facility] [id number] [address] [place] [address] Jun, Controlled type 2 diabetes m ellitus without complication, without long-term current use of insulin E11.9 [place] [address] [facility] [id number] [address] [place] [address] May, [place] [address] [facility] [id number] [address] [place] [address] May, Radiculopathy of cervical re gion M54.12 [place] [address] [facility] [id number] [address] [place] [address] 14 May, 2017 Controlled type 2 diabetes m ellitus without complication, without long-term current use of insulin E11.9 [place] [address] [facility] [id number] [address] [place] [address] May, [place] [address] [id number] [address] [place] [address] May, Controlled type 2 diabetes m ellitus without complication, without long-term current use of insulin E11.9 [place] [address] [facility] [id number] [address] [place] [address] May, Controlled type 2 diabetes m ellitus without complication, without long-term current use of insulin E11.9 [place] [address] [id number] [address] [place] [address] May, Controlled type 2 diabetes m ellitus without complication, without long-term current use of insulin E11.9 [facility] [address] [id number] [address] [place] [address] Apr, [facility] [address] [id number] [address] [place] [address] Apr, Controlled type 2 diabetes m ellitus without complication, without long-term current use of insulin E11.9 [facility] [address] [id number] [address] [place] [address] Apr, [facility] [address] [id number] [address] [place] [address] Apr, Controlled type 2 diabetes m ellitus without complication, without long-term current use of insulin E11.9 [place] [address] [id number] [address] [place] [address] Mar, [facility] [address] [id number] [address] [place] [address] Mar, Radiculopathy of cervical re gion M54.12 [facility] [address] [id number] [address] [place] [address] Mar, Controlled type 2 diabetes m ellitus without complication, without long-term current use of insulin E11.9 [place] [address] [id number] [address] [place] [address] Feb, Cervical radiculopathy M54.1 2 ; Acute cystitis without hematuria N30.00 and History of urethral stricture Z87.448 [place] [address] [id number] [address] [place] [address] Feb, Controlled type 2 diabetes m ellitus without complication, without long-term current use of insulin E11.9 [place] [address] [id number] [address] [place] [address] Feb, [facility] [address] [id number] [address] [place] [address] Jan, Diabetes type 2, uncontrolle d E11.65 [facility] [address] [id number] [address] [place] [address] Jan, [facility] [address] [id number] [address] [place] [address] Jan, Controlled type 2 diabetes m ellitus without complication, without long-term current use of insulin E11.9 ; Chest wall pain R07.89 and Thoracic spine pain M54.6 [facility] [address] [id number] [address] [place] [address] Dec, [facility] [address] [id number] [address] [place] [address] Dec, [facility] [address] [id number] [address] [place] [address] Nov, [facility] [address] [id number] [address] [place] [address] Nov, [facility] [address] [id number] [address] [place] [address] Nov, Trichomonas exposure Z20.2 [facility] [address] [id number] [address] [place] [address] Oct, [facility] [address] [id number] [address] [place] [address] Oct, [facility] [address] [id number] [address] [place] [address] Oct, [facility] [address] [id number] [address] [place] [address] Oct, [facility] [address] [id number] [address] [place] [address] Sep, [facility] [address] [facility] [id number] [address] [place] [address] Sep, [facility] [address] [id number] [address] [place] [address] Aug, [facility] [address] [id number] [address] [place] [address] Aug, [facility] [address] [id number] [address] [place] [address] Aug, [facility] [address] [id number] [address] [place] [address] Aug, [facility] [address] [id number] [address] [place] [address] July, Diabetes type 2, controlled E11.9 [facility] [address] [id number] [address] [place] [address], [place] [address] July, [facility] [address] [id number] [address] [place] [address] July, [facility] [address] [id number] [address] [place] [address] July, [facility] [address] [id number] [address] [place] [address] July, [facility] [address] [id number] [address] [place] [address] Jun, [facility] [address] [id number] [address] [place] [address] Jun, [facility] [address] [id number] [address] [place] [id number] 16 May, 2016 [facility] [address] [id number] [address] [place] [id number] 15 May, 2016 [facility] [address] [id number] [address] [place] [phone] May, [facility] [address] [id number] [address] [place] [address] 06 May, 2016 Controlled type 2 diabetes m ellitus without complication, without long-term current use of insulin E11.9 [facility] [address] [id number] [address] [place] [address], [place] [address] 15 Apr, 2016 [facility] [address] [id number] [address] [place] [address], [place] [address] Apr, [facility] [address] [id number] [address] [place] [address], [place] [address] Mar, [facility] [address] [id number] [address] [place] [address], [place] [address] Mar, [facility] [address] [id number] [address] [place] [address], [place] [address] Feb, [facility] [address] [id number] [address] [place] [address], [place] [address] Feb, [facility] [address] [id number] [address] [place] [address], [place] [address] Jan, [facility] [address] [id number] [address] [place] [address], [place] [address] Jan, [facility] [address] [id number] [address] [place] [address], [place] [address] Jan, [facility] [address] [id number] [address] [place] [address] Dec, [facility] [address] [id number] [address] [place] [address], [place] [address] Dec, [facility] [address] [id number] [address] [place] [id number] Dec, [facility] [address] [id number] [address] [place] [address], [place] [address] 29 Nov, 2015 Diabetes type 2, uncontrolle d E11.65 [facility] [address] [id number] [address] [place] [address], [place] [address] 14 Nov, 2015 [facility] [address] [id number] [address] [place] [address], [place] [address] Nov, [facility] [address] [id number] [address] [place] [address] Oct, [facility] [address] [id number] [address] [place] [address] Oct, [facility] [address] [id number] [address] [place] [address] Sep, Controlled type 2 diabetes m ellitus without complication, without long-term current use of insulin E11.9 [facility] [address] [id number] [address] [place] [address] Sep, [facility] [address] [id number] [address] [place] [address] Sep, [facility] [address] [id number] [address] [place] [address] Sep, [facility] [address] [id number] [address] [place] [address] Sep, [facility] [address] [facility] [id number] [address] [place] [address] Aug, Diabetes type 2, controlled E11.9 ; Anxiety F41.9 ; Carpal tunnel syndrome, left upper limb G56.02 and Carpal tunnel syndrome, right upper limb G56.01 [facility] [address] [facility] [id number] [address] [place] [id number] Aug, Urethritis N34.2 [facility] [address] [facility] [id number] [address] [place] [address] Aug, [facility] [address] [id number] [address] [place] [address] July, Genital warts A63.0 [facility] [address] [id number] [address] [place] [address] July, [facility] [address] [facility] [id number] [address] [place] [address] July, Genital warts A63.0 [facility] [address] [id number] [address] [place] [address] July, Anxiety F41.9 [facility] [address] [id number] [address] [place] [address] Jun, Genital warts A63.0 [facility] [address] [id number] [address] [place] [address] Jun, Anxiety F41.9 [facility] [address] [id number] [address] [place] [address] May, Genital warts A63.0 and Diab etes type 2, uncontrolled E11.65 [facility] [address] [id number] [address] [place] [address] May, [facility] [address] [id number] [address] [place] [address] May, [facility] [address] [id number] [address] [place] [address] Apr, [facility] [address] [id number] [address] [place] [address] Apr, [facility] [address] [id number] [address] [place] [address] Apr, Diabetes type 2, controlled E11.9 [facility] [address] [id number] [address] [place] [address] Apr, Genital warts A63.0 [facility] [address] [id number] [address] [place] [address] Apr, [facility] [address] [id number] [address] [place] [address] Apr, Diabetes type 2, uncontrolle d E11.65 and Genital warts A63.0 [facility] [address] [id number] [address] [place] [address] Apr, [facility] [address] [id number] [address] [place] [address] Mar, [facility] [address] [facility] [id number] [address] [place] [address] Mar, [facility] [address] [facility] [id number] [address] [place] [address] Mar, Family history of diabetes m ellitus V18.0 and Weight loss R63.4 [facility] [address] [place] [id number] [address] [place] [address] Mar, Genital warts A63.0 and Fami ly history of diabetes mellitus V18.0 [facility] [address] [facility] [id number] [address] [place] [address] Feb, [place] [address] [place] [id number] [address] [place] [address] Jan, [place] [address] [place] [id number] [place] [address] Jan, Perianal venereal warts A63. 0 [facility] [address] [facility] [id number] [address] [place] [address] Jan, Urethritis N34.2 and Anxiety F41.9 [place] [address] [place] [id number] [address] [place] [address] Jan, [place] [address] [place] [id number] [address] [place] [address] Jan, Urinary tract infection, sit e unspecified N39.0 [facility] [address] [facility] [id number] [address] [place] [address] Jan, [facility] [address] [facility] [id number] [address] [place] [address] Dec, [facility] [address] [place] [id number] [address] [place] [address] Dec, HPV (human papilloma virus) anogenital infection A63.0 ; Anxiety F41.9 and Gastroesophageal reflux disease without esophagitis K21.9 [place] [address] [facility] [id number] [address] [place] [address] Sep, Blood in stool 578.1 [facility] [address] [facility] [id number] [address] [place] [address] Aug, Blood in stool 578.1 [facility] [address] [facility] [id number] [address] [place] [address] Aug, Anxiety 300.00 and Blood in stool 578.1 [facility] [address] [facility] [id number] [address] [place] [address] July, [facility] [address] [place] [id number] [address] [place] [address] July, Family history of diabetes joseph yaraitus V18.0 [facility] [address] [place] [id number] [address] [place] [address] July, Family history of diabetes m yaraitus V18.0 ; Family history of thyroid disease V18.19 ; Polyuria 788.42 ; Polydipsia 783.5 ; Alopecia 704.00 and Fatigue 780.79 [facility] [address] [facility] [id number] [address] [place] [address] Jun, [facility] [address] [place] [id number] [address] [place] [address] Jun, [facility] [address] [place] [id number] [address] [place] [address] Mar, [facility] [address] [facility] [id number] [address] [place] [address] Mar, [facility] [address] [facility] [id number] [address] [place] [address] Mar, [facility] [address] [facility] [id number] [address] [place] [address] Mar, [facility] [address] [facility] [id number] [address] [place] [phone] Mar, [facility] [address] [id number] [address] [place] [address], [place] [address] Mar, [facility] [address] [id number] [address] [place] [address], [place] [address] Mar, [facility] [address] [id number] [address] [place] [address], [place] [address] Mar, [facility] [address] [id number] [address] [place] [address], [place] [address] Mar, [facility] [address] [id number] [address] [place] [address], [place] [address] Mar, [facility] [address] [id number] [address] [place] [address], [place] [address] Feb, [facility] [address] [id number] [address] [place] [address], [place] [address] Feb, [facility] [address] [id number] [address] [place] [address], [place] [address] Jan, [facility] [address] [id number] [address] [place] [address], [place] [address] Jan, [facility] [address] [id number] [address] [place] [address], [place] [address] Jan, [facility] [address] [id number] [address] [place] [address], [place] [address] Jan, [facility] [address] [id number] [address] [place] [address], [place] [address] Dec, [facility] [address] [id number] [address] [place] [address], [place] [address] Dec, [facility] [address] [id number] [address] [place] [address], [place] [address] Nov, [facility] [address] [id number] [address] [place] [address], [place] [address] Nov, [facility] [place] [facility] [address] [id number] [address] [place] [address], [place] [address] Oct, [facility] [place] [facility] [address] [id number] [facility] [place] [address] Oct, [facility] [place] [facility] [address] [id number] [address] [place] [address], [place] [address] Oct, [facility] [place] [facility] [address] [id number] [facility] [place] [address] Oct, [facility] [place] [facility] [address] [id number] [address] [place] [address], [place] [address] Oct, [facility] [place] [facility] [address] [id number] [address] [place] [address], [place] [address] Oct, [facility] [place] [facility] [address] [id number] [address] [place] [address], [place] [address] Oct, [facility] [place] [facility] [address] [id number] [address] [place] [address], [place] [address] Oct, [facility] [place] [facility] [address] [id number] [address] [place] [address], [place] [address] Sep, [facility] [place] [facility] [address] [id number] [address] [place] [address], [place] [address] Sep, [facility] [place] [facility] [address] [id number] [address] [place] [address], [place] [address] Sep, [facility] [place] [facility] [address] [id number] [address] [place] [address], [place] [address] Sep, [facility] [place] [facility] [address] [id number] [address] [place] [address], [place] [address] Aug, [facility] [place] [facility] [address] [id number] [address] [place] [address], [place] [address] Aug, [facility] [place] [facility] [address] [id number] [address] [place] [address], [place] [address] Aug, [facility] [place] [facility] [address] [id number] [address] [place] [address], [place] [address] Aug, [facility] [place] [facility] [address] [id number] [address] [place] [address] July, [facility] [address] [id number] [address] [place] [address], [place] [address] July, [facility] [address] [id number] [address] [place] [address], [place] [address] July, [facility] [address] [id number] [address] [place] [address], [place] [address] July, [facility] [address] [id number] [address] [place] [address], [place] [address] July, [facility] [address] [id number] [address] [place] [address], [place] [address] July, [facility] [address] [id number] [address] [place] [address], [place] [address] Jun, [facility] [address] [id number] [address] [place] [address], [place] [address] Jun, [facility] [address] [id number] [address] [place] [address], [place] [address] Jun, [facility] [address] [id number] [address] [place] [address], [place] [address] Jun, [facility] [address] [id number] [address] [place] [address], [place] [address] Jun, [facility] [address] [id number] [address] [place] [address], [place] [address] Jun, [facility] [address] [id number] [address] [place] [address], [place] [address] Jun, [facility] [address] [id number] [address] [place] [address], [place] [address] Jun, [facility] [address] [id number] [address] [place] [address], [place] [address] May, [facility] [address] [id number] [address] [place] [address], [place] [address] May, [facility] [address] [id number] [address] [place] [address], [place] [address] May, [facility] [address] [id number] [address] [place] [address], [place] [address] Apr, [facility] [address] [id number] [address] [place] [address], [place] [address] Apr, [facility] [address] [id number] [address] [place] [address], [place] [address] Apr, [facility] [address] [id number] [address] [place] [address], [place] [address] Apr, [facility] [address] [id number] [address] [place] [address], [place] [address] Mar, [facility] [address] [id number] [address] [place] [address], [place] [address] Mar, [facility] [address] [id number] [address] [place] [address], [place] [address] Mar, [facility] [address] [id number] [address] [place] [address], [place] [address] Mar, [facility] [address] [id number] [address] [place] [address], [place] [address] Mar, [facility] [address] [id number] [address] [place] [address], [place] [address] Mar, [facility] [address] [id number] [address] [place] [address], [place] [address] Feb, [facility] [address] [id number] [address] [place] [address], [place] [address] Feb, [facility] [address] [id number] [address] [place] [address], [place] [address] Jan, [facility] [address] [id number] [address] [place] [address], [place] [address] Jan, [facility] [address] [id number] [address] [place] [address], [place] [address] Jan, [facility] [address] [id number] [address] [place] [address], [place] [address] Jan, [facility] [address] [id number] [address] [place] [address], [place] [address] Jan, [facility] [address] [id number] [address] [place] [address], [place] [address] Jan, [facility] [address] [id number] [address] [place] [address], [place] [address] Jan, [facility] [address] [id number] [address] [place] [address], [place] [address] Dec, [facility] [address] [id number] [address] [place] [address], [place] [address] Dec, [facility] [address] [id number] [address] [place] [address], [place] [address] Nov, [facility] [address] [id number] [address] [place] [address], [place] [address] Nov, [facility] [address] [id number] [address] [place] [address], [place] [address] Nov, [facility] [address] [id number] [address] [place] [address], [place] [address] Oct, [facility] [address] [id number] [address] [place] [address], [place] [address] Oct, [facility] [address] [id number] [address] [place] [address], [place] [address] Oct, [facility] [address] [id number] [address] [place] [address], [place] [address] Oct, [facility] [address] [id number] [address] [place] [address], [place] [address] Sep, [facility] [address] [id number] [address] [place] [address], [place] [address] Sep, [facility] [address] [id number] [address] [place] [address] Aug, [facility] [address] [id number] [address] [place] [address] Aug, [facility] [address] [id number] [address] [place] [address] Aug, [facility] [address] [id number] [address] [place] [address] Aug, [facility] [address] [id number] [address] [place] [address] July, [facility] [address] [id number] [address] [place] [address] July, [facility] [address] [id number] [address] [place] [address] July, [facility] [address] [id number] [address] [place] [address] July, [facility] [address] [id number] [address] [place] [address] Jun, [facility] [address] [id number] [address] [place] [address] Jun, [facility] [address] [id number] [address] [place] [address] Feb, [facility] [address] [id number] [address] [place] [address] Feb, [facility] [address] [id number] [address] [place] [address] Mar, IMMUNIZATIONS No Known Immunizations SOCIAL HISTORY Never Assessed REASON FOR VISIT PLAN OF CARE VITAL SIGNS Height 68 in 2012-07-12 Weight 210.9 lbs 2012-07-12 Temperature 98.6 degrees Fahrenheit 2012-07-12 Heart Rate 86 bpm 2012-07-12 Respiratory Rate 18 2012-07-12 Blood pressure systolic 140 mmHg 2012-07-12 Blood pressure diastolic 90 mmHg 2012-07-12 MEDICATIONS Unknown Medications RESULTS No Results PROCEDURES [...]
--- OUTSIDE RECORDS SUMMARY | 2019-08-16 14:10 | XMS REPORT ---
Author Author Joseph MARIA Organization [facility] Address [address] [place] [address] Care Team Providers Care Legal Biller Name Role Phone MIRELLA MARIA Unavailable PROBLEMS Type Condition ICD9-CM Code ZZF42-ML Code Onset Dates Condition S tatus SNOMED Code Problem Mood disorder F39 Active 026693 05 Problem Low back pain M54.5 Active 421788 005 Problem Acquired hypothyroidism E03.9 Active 284926200 Problem Diabetes type 2, uncontrolled E11.65 Active 200579596 Problem Diabetes type 2, controlled E11.9 Ac tive 82126213 Problem Controlled type 2 diabetes m ellitus without complication, without long- term current use of insulin E11.9 Active 344679428 Problem Uncontrolled type 2 diabetes mellitus with hyperglycemia E11.65 Active 376606649 Problem Hypertension, benign I10 Active 39497780 Problem Other chronic pain G89.29 Active 8 1226062 Problem Shoulder pain, right M25.511 Active 00772210 Problem Cervical radiculopathy M54.12 Active 59915351 Problem History of urethral stricture Z87.448 Active 994335838 Problem snf current use of insulin Z79.4 Active 727666976 Problem Type 2 diabetes mellitus without complications E11 .9 Active [id number] ALLERGIES No Information ENCOUNTERS Encounter Location Date Diagnosis [facility] [id number] [place] [address] Feb, Controlled type 2 diabetes mellitus with out complication, without long-term current use of insulin E11.9 [facility] [address] [address] Feb, Uncontrolled type 2 diabetes mellitus wi th hyperglycemia E11.65 ; Other chronic pain G89.29 ; Pain in right shoulder M25.511 and Thoracic spine pain M54.6 [facility] [address] [address] Nov, [facility] [id number] [place] [address] Aug, Diabetes type 2, uncontrolled E11.65 [facility] [id number] [place] [address] July, [facility] [address] [id number] [place] [id number] July, Dental examination Z01.20 and Caries K02 .9 [address] [address] [address] Jun, Controlled type 2 diabetes mellitus with out complication, without long-term current use of insulin E11.9 [place] [address] [address] May, Controlled type 2 diabetes mellitus with out complication, without long-term current use of insulin E11.9 [place] [address] [address] Apr, [facility] [address] [address] Mar, Controlled type 2 diabetes mellitus with out complication, without long-term current use of insulin E11.9 [place] [id number] [place] [address] Jan, [place] [address] [address] Dec, Diabetes type 2, uncontrolled E11.65 [place] [address] [address] Dec, Type 2 diabetes mellitus without complic ations E11.9 ; 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 and Cervicalgia M54.2 [place] [address] [address] Dec, Type 2 diabetes mellitus without complic ations E11.9 ; snf current use of insulin Z79.4 and Cervicalgia M54.2 [place] [address] [address] Dec, Controlled type 2 diabetes mellitus with out complication, without long-term current use of insulin E11.9 [place] [id number] [place] [address] Nov, [facility] [address] [address] Oct, Diabetes type 2, uncontrolled E11.65 [place] [address] [address] Sep, Diabetes type 2, uncontrolled E11.65 [place] [address] [address] Jun, Controlled type 2 diabetes mellitus with out complication, without long-term current use of insulin E11.9 [place] [address] [address] May, [place] [address] [address] May, Radiculopathy of cervical region M54.12 [place] [address] [address] 14 May, 2017 Controlled type 2 diabetes mellitus with out complication, without long-term current use of insulin E11.9 [place] [address] [address] May, [place] [address] [address] May, Controlled type 2 diabetes mellitus with out complication, without long-term current use of insulin E11.9 [place] [address] [address] May, Controlled type 2 diabetes mellitus with out complication, without long-term current use of insulin E11.9 [place] [address] [address] 05 May, 2017 Controlled type 2 diabetes mellitus with out complication, without long-term current use of insulin E11.9 [place] [address] [address] 15 Apr, 2017 [place] [id number] [place] [address] Apr, Controlled type 2 diabetes mellitus with out complication, without long-term current use of insulin E11.9 [place] [id number] [place] [address] 07 Apr, 2017 [place] [address] [address] Apr, Controlled type 2 diabetes mellitus with out complication, without long-term current use of insulin E11.9 [place] [address] [address] Mar, [place] [address] [address] Mar, Radiculopathy of cervical region M54.12 [place] [address] [address] Mar, Controlled type 2 diabetes mellitus with out complication, without long-term current use of insulin E11.9 [place] [address] [address] Feb, Cervical radiculopathy M54.12 ; Acute cy stitis without hematuria N30.00 and History of urethral stricture Z87.448 [place] [address] [address] Feb, Controlled type 2 diabetes mellitus with out complication, without long-term current use of insulin E11.9 [place] [id number] [place] [address] 05 Feb, 2017 [place] [address] [address] 15 Jan, 2017 Diabetes type 2, uncontrolled E11.65 [place] [address] [address] 15 Jan, 2017 [place] [address] [address] Jan, Controlled type 2 diabetes mellitus with out complication, without long-term current use of insulin E11.9 ; Chest wall pain R07.89 and Thoracic spine pain M54.6 [facility] [id number] [place] [address] Dec, [facility] [address] [address] Dec, [facility] [address] [address] Nov, [facility] [address] [address] Nov, [facility] [address] [facility] [id number] [place] [address] Nov, Trichomonas exposure Z20.2 [facility] [address] [address] Oct, [facility] [address] [address] Oct, [facility] [address] [address] Oct, [facility] [address] [address] Oct, [facility] [address] [address] Sep, [facility] [address] [address] Sep, [facility] [address] [address] Aug, [facility] [address] [address] Aug, [facility] [address] [address] Aug, [facility] [address] [address] Aug, [facility] [id number] [place] [address] July, Diabetes type 2, controlled E11.9 [facility] [id number] [place] [address] July, [facility] [id number] [place] [address] July, [facility] [id number] [place] [address] July, [facility] [id number] [place] [address] July, [facility] [id number] [place] [address] Jun, [facility] [id number] [place] [address] Jun, [facility] [id number] [place] [address] May, [facility] [id number] [place] [address] May, [facility] [id number] [place] [address] May, [facility] [id number] [place] [address] May, Controlled type 2 diabetes mellitus with out complication, without long-term current use of insulin E11.9 [facility] [id number] [place] [address] Apr, [facility] [id number] [place] [address] Apr, [facility] [id number] [place] [address] Mar, [facility] [id number] [place] [address] Mar, [facility] [id number] [place] [address] Feb, [facility] [address] [id number] [place] [address] Feb, [facility] [address] [id number] [place] [address] Jan, [facility] [id number] [place] [address] Jan, [facility] [id number] [place] [address] Jan, [facility] [address] [id number] [place] [address] Dec, [facility] [id number] [place] [address] Dec, [facility] [id number] [place] [address] Dec, [facility] [id number] [place] [address] Nov, Diabetes type 2, uncontrolled E11.65 [facility] [id number] [place] [address] 14 Nov, 2015 [facility] [id number] [place] [address] Nov, [facility] [id number] [place] [address] Oct, [facility] [id number] [place] [address] Oct, [facility] [id number] [place] [address] Sep, Controlled type 2 diabetes mellitus with out complication, without long-term current use of insulin E11.9 [facility] [id number] [place] [address] Sep, [facility] [id number] [place] [address] Sep, [facility] [id number] [place] [address] 07 Sep, 2015 [facility] [address] [address] 05 Sep, 2015 [facility] [address] [address] Aug, Diabetes type 2, controlled E11.9 ; Anxi ety F41.9 ; Carpal tunnel syndrome, left upper limb G56.02 and Carpal tunnel syndrome, right upper limb G56.01 [facility] [address] [address] Aug, Urethritis N34.2 [facility] [address] [address] Aug, [facility] [address] [address] July, Genital warts A63.0 [facility] [address] [address] July, [facility] [address] [address] July, Genital warts A63.0 [facility] [address] [address] July, Anxiety F41.9 [facility] [address] [address] Jun, Genital warts A63.0 [facility] [address] [address] 08 Jun, 2015 Anxiety F41.9 [facility] [address] [address] 15 May, 2015 Genital warts A63.0 and Diabetes type 2, uncontrolled E11.65 [facility] [address] [address] May, [facility] [address] [address] May, [facility] [id number] [place] [address] Apr, [facility] [address] [address] Apr, [facility] [id number] [place] [address] Apr, Diabetes type 2, controlled E11.9 [facility] [address] [address] Apr, Genital warts A63.0 [facility] [address] [address] Apr, [facility] [address] [address] Apr, Diabetes type 2, uncontrolled E11.65 and Genital warts A63.0 [facility] [address] [address] Apr, [facility] [address] [address] Mar, [facility] [address] [address] Mar, [facility] [address] [address] Mar, Family history of diabetes mellitus V18. 0 and Weight loss R63.4 [facility] [address] [address] Mar, Genital warts A63.0 and Family history o f diabetes mellitus V18.0 [facility] [address] [address] Feb, [facility] [address] [address] Jan, [facility] [address] [address] Jan, Perianal venereal warts A63.0 [address] [address] [address] Jan, Urethritis N34.2 and Anxiety F41.9 [address] [address] [address] Jan, [place] [address] [address] Jan, Urinary tract infection, site unspecifie d N39.0 [address] [address] [address] Jan, [address] [address] [address] Dec, [address] [address] [address] Dec, HPV (human papilloma virus) anogenital i nfection A63.0 ; Anxiety F41.9 and Gastroesophageal reflux disease without esophagitis K21.9 [address] [address] [address] Sep, Blood in stool 578.1 [address] [address] [address] Aug, Blood in stool 578.1 [address] [address] [address] Aug, Anxiety 300.00 and Blood in stool 578.1 [address] [address] [address] July, [address] [address] [address] July, Family history of diabetes mellitus V18. 0 [address] [address] [address] July, Family history of diabetes mellitus V18. 0 ; Family history of thyroid disease V18.19 ; Polyuria 788.42 ; Polydipsia 783.5 ; Alopecia 704.00 and Fatigue 780.79 [facility] [address] [id number] [place] [address] Jun, [facility] [address] [id number] [place] [address] Jun, [facility] [address] [id number] [place] [address] Mar, [facility] [id number] [place] [address] Mar, [facility] [address] [id number] [place] [address] Mar, [facility] [id number] [place] [address] Mar, [facility] [id number] [place] [address] Mar, [facility] [id number] [place] [address] Mar, [facility] [id number] [place] [address] Mar, [facility] [id number] [place] [address] Mar, [facility] [address] [id number] [place] [address] Mar, [facility] [id number] [place] [address] Mar, [facility] [address] [id number] [place] [address] Feb, [facility] [id number] [place] [address] Feb, [facility] [address] [id number] [place] [address] Jan, [facility] [id number] [place] [address] Jan, [facility] [id number] [place] [address] Jan, [facility] [address] [id number] [place] [address] Jan, [facility] [address] [facility] [id number] [place] [address] Dec, [facility] [address] [id number] [place] [address] Dec, [facility] [address] [facility] [id number] [place] [address] Nov, [facility] [address] [facility] [id number] [place] [address] Nov, [facility] [address] [id number] [place] [address] Oct, [facility] [address] [id number] [place] [address] Oct, [facility] [address] [id number] [place] [address] Oct, [facility] [address] [facility] [id number] [place] [address] Oct, [facility] [address] [id number] [place] [address] Oct, [facility] [address] [id number] [place] [address] Oct, [facility] [address] [id number] [place] [address] Oct, [facility] [address] [facility] [id number] [place] [address] Oct, [facility] [address] [id number] [place] [address] Sep, [facility] [address] [id number] [place] [address] Sep, [facility] [address] [id number] [place] [address] Sep, [facility] [address] [id number] [place] [address] Sep, [facility] [address] [id number] [place] [address] Aug, [facility] [address] [id number] [place] [address] Aug, [facility] [address] [id number] [place] [address] Aug, [facility] [address] [id number] [place] [address] Aug, [facility] [address] [id number] [place] [address] July, [facility] [address] [id number] [place] [address] July, [facility] [address] [id number] [place] [address] July, [facility] [address] [id number] [place] [address] July, [facility] [address] [id number] [place] [address] July, [facility] [address] [id number] [place] [address] July, [facility] [address] [id number] [place] [address] Jun, [facility] [address] [id number] [place] [address] 23 Jun, 2013 [facility] [address] [id number] [place] [address] 15 Jun, 2013 [facility] [address] [id number] [place] [address] 15 Jun, 2013 [facility] [address] [id number] [place] [address] 14 Jun, 2013 [facility] [address] [id number] [place] [address] 14 Jun, 2013 [facility] [address] [facility] [id number] [place] [address] 14 Jun, 2013 [facility] [address] [facility] [id number] [place] [address] 14 Jun, 2013 [facility] [address] [id number] [place] [address] 19 May, 2013 [facility] [address] [id number] [place] [address] 19 May, 2013 [facility] [address] [facility] [id number] [place] [address] 18 May, 2013 [facility] [address] [id number] [place] [address] Apr, [facility] [address] [id number] [place] [address] Apr, [facility] [address] [id number] [place] [address] Apr, [facility] [address] [id number] [place] [address] Apr, [facility] [address] [id number] [place] [address] Mar, [facility] [address] [id number] [place] [address] Mar, [facility] [address] [id number] [place] [address] Mar, [facility] [address] [id number] [place] [address] Mar, [facility] [address] [id number] [place] [address] Mar, [facility] [address] [id number] [place] [address] Mar, [facility] [address] [id number] [place] [address] Feb, [facility] [address] [id number] [place] [address] Feb, [facility] [address] [id number] [place] [address] Jan, [facility] [address] [id number] [place] [address] Jan, [facility] [address] [id number] [place] [address] Jan, [facility] [address] [id number] [place] [address] Jan, [facility] [address] [id number] [place] [address] Jan, [facility] [address] [id number] [place] [address] Jan, [facility] [address] [id number] [place] [address] Jan, [facility] [address] [id number] [place] [address] Dec, [facility] [address] [id number] [place] [address] Dec, [facility] [address] [id number] [place] [address] Nov, [facility] [address] [id number] [place] [address] Nov, [facility] [address] [id number] [place] [address] Nov, [facility] [address] [id number] [place] [address] Oct, [facility] [address] [id number] [place] [address] Oct, [facility] [address] [id number] [place] [address] Oct, [facility] [address] [id number] [place] [address] Oct, [facility] [id number] [place] [address] Sep, [facility] [id number] [place] [address] Sep, [facility] [id number] [place] [address] Aug, [facility] [address] [id number] [place] [address] Aug, [facility] [address] [id number] [place] [address] Aug, [facility] [address] [id number] [place] [address] Aug, [facility] [address] [id number] [place] [address] July, [facility] [address] [id number] [place] [address] July, [facility] [address] [id number] [place] [address] July, [facility] [address] [id number] [place] [address] July, [facility] [address] [id number] [place] [address] Jun, [facility] [address] [id number] [place] [address] Jun, [facility] [address] [id number] [place] [address] Feb, [facility] [address] [id number] [place] [address] Feb, [facility] [address] [id number] [place] [address] Mar, IMMUNIZATIONS No Known Immunizations SOCIAL HISTORY [...]
--- OUTSIDE RECORDS SUMMARY | 2019-08-16 14:11 | XMS REPORT ---
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 Name Role Phone MIRELLA MARIA Unavailable PROBLEMS Type Condition ICD9-CM Code KIQ32-TD Code Onset Dates Condition S tatus SNOMED Code Problem Mood disorder F39 Active [id number] 05 Problem Low back pain M54.5 Active 047638 005 Problem Acquired hypothyroidism E03.9 Active 287098147 Problem Diabetes type 2, uncontrolled E11.65 Active 842403061 Problem Diabetes type 2, controlled E11.9 Ac tive 31056651 Problem Controlled type 2 diabetes m ellitus without complication, without long- term current use of insulin E11.9 Active 231935904 Problem Uncontrolled type 2 diabetes mellitus with hyperglycemia E11.65 Active 570954923 Problem Hypertension, benign I10 Active 44166081 Problem Other chronic pain G89.29 Active 8 3949528 Problem Shoulder pain, right M25.511 Active 01204780 Problem Cervical radiculopathy M54.12 Active 11117937 Problem History of urethral stricture Z87.448 Active 596291817 Problem retirement current use of insulin Z79.4 Active 037408911 Problem Type 2 diabetes mellitus without complications E11 .9 Active 718410041 ALLERGIES No Information ENCOUNTERS Encounter Location Date Diagnosis [facility] [id number] [place] [address] Feb, Controlled type 2 diabetes mellitus with out complication, without long-term current use of insulin E11.9 [facility] [address] [address] Feb, Uncontrolled type 2 diabetes mellitus wi th hyperglycemia E11.65 ; Other chronic pain G89.29 ; Pain in right shoulder M25.511 and Thoracic spine pain M54.6 [facility] [address] [address] Nov, [facility] [id number] [place] [address] Aug, Diabetes type 2, uncontrolled E11.65 [facility] [id number] [place] [address] July, [facility] [address] [id number] [place] [id number] July, Dental examination Z01.20 and Caries K02 .9 [address] [address] Jun, Controlled type 2 diabetes mellitus with out complication, without long-term current use of insulin E11.9 [place] [address] [address] May, Controlled type 2 diabetes mellitus with out complication, without long-term current use of insulin E11.9 [place] [address] [address] Apr, [facility] [address] [address] Mar, Controlled type 2 diabetes mellitus with out complication, without long-term current use of insulin E11.9 [facility] [id number] [place] [address] Jan, [place] [address] [address] Dec, Diabetes type 2, uncontrolled E11.65 [place] [address] [address] Dec, Type 2 diabetes mellitus without complic ations E11.9 ; 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 and Cervicalgia M54.2 [place] [address] [address] Dec, Type 2 diabetes mellitus without complic ations E11.9 ; retirement current use of insulin Z79.4 and Cervicalgia M54.2 [place] [address] [address] Dec, Controlled type 2 diabetes mellitus with out complication, without long-term current use of insulin E11.9 [facility] [id number] [place] [address] Nov, [facility] [address] [address] Oct, Diabetes type 2, uncontrolled E11.65 [place] [address] [address] Sep, Diabetes type 2, uncontrolled E11.65 [place] [address] [address] Jun, Controlled type 2 diabetes mellitus with out complication, without long-term current use of insulin E11.9 [place] [address] [address] May, [place] [address] [address] May, Radiculopathy of cervical region M54.12 [place] [address] [address] 14 May, 2017 Controlled type 2 diabetes mellitus with out complication, without long-term current use of insulin E11.9 [place] [address] [address] May, [facility] [address] [address] May, Controlled type 2 diabetes mellitus with out complication, without long-term current use of insulin E11.9 [place] [address] [address] May, Controlled type 2 diabetes mellitus with out complication, without long-term current use of insulin E11.9 [place] [address] [address] 05 May, 2017 Controlled type 2 diabetes mellitus with out complication, without long-term current use of insulin E11.9 [place] [address] [address] 15 Apr, 2017 [facility] [id number] [place] [address] Apr, Controlled type 2 diabetes mellitus with out complication, without long-term current use of insulin E11.9 [place] [id number] [place] [address] 07 Apr, 2017 [place] [address] [address] Apr, Controlled type 2 diabetes mellitus with out complication, without long-term current use of insulin E11.9 [place] [address] [address] Mar, [place] [address] [address] Mar, Radiculopathy of cervical region M54.12 [place] [address] [address] Mar, Controlled type 2 diabetes mellitus with out complication, without long-term current use of insulin E11.9 [place] [address] [address] Feb, Cervical radiculopathy M54.12 ; Acute cy stitis without hematuria N30.00 and History of urethral stricture Z87.448 [place] [address] [address] Feb, Controlled type 2 diabetes mellitus with out complication, without long-term current use of insulin E11.9 [place] [id number] [place] [address] 05 Feb, 2017 [place] [address] [address] 15 Jan, 2017 Diabetes type 2, uncontrolled E11.65 [place] [address] [address] 15 Jan, 2017 [place] [address] [address] Jan, Controlled type 2 diabetes mellitus with out complication, without long-term current use of insulin E11.9 ; Chest wall pain R07.89 and Thoracic spine pain M54.6 [facility] [id number] [place] [address] Dec, [facility] [address] [address] Dec, [facility] [address] [address] Nov, [facility] [address] [address] Nov, [facility] [address] [facility] [id number] [place] [address] Nov, Trichomonas exposure Z20.2 [facility] [address] [address] Oct, [facility] [address] [address] Oct, [facility] [address] [address] Oct, [facility] [address] [address] Oct, [facility] [address] [address] Sep, [facility] [address] [address] Sep, [facility] [address] [address] Aug, [facility] [address] [address] Aug, [facility] [address] [address] Aug, [facility] [address] [address] Aug, [facility] [id number] [place] [address] July, Diabetes type 2, controlled E11.9 [facility] [id number] [place] [address] July, [facility] [id number] [place] [address] July, [facility] [id number] [place] [address] July, [facility] [id number] [place] [address] July, [facility] [id number] [place] [address] Jun, [facility] [id number] [place] [address] Jun, [facility] [id number] [place] [address] May, [facility] [id number] [place] [address] May, [facility] [id number] [place] [address] May, [facility] [id number] [place] [address] May, Controlled type 2 diabetes mellitus with out complication, without long-term current use of insulin E11.9 [facility] [id number] [place] [address] Apr, [facility] [id number] [place] [address] Apr, [facility] [id number] [place] [address] Mar, [facility] [id number] [place] [address] Mar, [facility] [id number] [place] [address] Feb, [facility] [address] [id number] [place] [address] Feb, [facility] [address] [id number] [place] [address] Jan, [facility] [id number] [place] [address] Jan, [facility] [id number] [place] [address] Jan, [facility] [address] [id number] [place] [address] Dec, [facility] [id number] [place] [address] Dec, [facility] [id number] [place] [address] Dec, [facility] [id number] [place] [address] Nov, Diabetes type 2, uncontrolled E11.65 [facility] [id number] [place] [address] 14 Nov, 2015 [facility] [id number] [place] [address] Nov, [facility] [id number] [place] [address] Oct, [facility] [id number] [place] [address] Oct, [facility] [id number] [place] [address] Sep, Controlled type 2 diabetes mellitus with out complication, without long-term current use of insulin E11.9 [facility] [id number] [place] [address] Sep, [facility] [id number] [place] [address] Sep, [facility] [id number] [place] [address] 07 Sep, 2015 [facility] [address] [address] 05 Sep, 2015 [facility] [address] [address] Aug, Diabetes type 2, controlled E11.9 ; Anxi ety F41.9 ; Carpal tunnel syndrome, left upper limb G56.02 and Carpal tunnel syndrome, right upper limb G56.01 [facility] [address] [address] Aug, Urethritis N34.2 [facility] [address] [address] Aug, [facility] [address] [address] July, Genital warts A63.0 [facility] [address] [address] July, [facility] [address] [address] July, Genital warts A63.0 [facility] [address] [address] July, Anxiety F41.9 [facility] [address] [address] Jun, Genital warts A63.0 [facility] [address] [address] 08 Jun, 2015 Anxiety F41.9 [facility] [address] [address] 15 May, 2015 Genital warts A63.0 and Diabetes type 2, uncontrolled E11.65 [facility] [address] [address] May, [facility] [address] [address] May, [facility] [id number] [place] [address] Apr, [facility] [address] [address] Apr, [facility] [id number] [place] [address] Apr, Diabetes type 2, controlled E11.9 [facility] [address] [address] Apr, Genital warts A63.0 [facility] [address] [address] Apr, [facility] [address] [address] Apr, Diabetes type 2, uncontrolled E11.65 and Genital warts A63.0 [facility] [address] [address] Apr, [facility] [address] [address] Mar, [facility] [address] [address] Mar, [facility] [address] [address] Mar, Family history of diabetes mellitus V18. 0 and Weight loss R63.4 [facility] [address] [address] Mar, Genital warts A63.0 and Family history o f diabetes mellitus V18.0 [facility] [address] [address] Feb, [facility] [address] [address] Jan, [facility] [address] [address] Jan, Perianal venereal warts A63.0 [address] [address] [address] Jan, Urethritis N34.2 and Anxiety F41.9 [place] [address] [address] Jan, [address] [address] [address] Jan, Urinary tract infection, site unspecifie d N39.0 [address] [address] [address] Jan, [address] [address] [address] Dec, [place] [address] [address] Dec, HPV (human papilloma virus) anogenital i nfection A63.0 ; Anxiety F41.9 and Gastroesophageal reflux disease without esophagitis K21.9 [address] [address] [address] Sep, Blood in stool 578.1 [place] [address] [address] Aug, Blood in stool 578.1 [place] [address] [address] Aug, Anxiety 300.00 and Blood in stool 578.1 [address] [address] [address] July, [place] [address] [address] July, Family history of diabetes mellitus V18. 0 [address] [address] [address] July, Family history of diabetes mellitus V18. 0 ; Family history of thyroid disease V18.19 ; Polyuria 788.42 ; Polydipsia 783.5 ; Alopecia 704.00 and Fatigue 780.79 [facility] [address] [id number] [place] [address] Jun, [facility] [address] [id number] [place] [address] Jun, [facility] [address] [id number] [place] [address] Mar, [facility] [id number] [place] [address] Mar, [facility] [address] [id number] [place] [address] Mar, [facility] [id number] [place] [address] Mar, [facility] [id number] [place] [address] Mar, [facility] [id number] [place] [address] Mar, [facility] [id number] [place] [address] Mar, [facility] [id number] [place] [address] Mar, [facility] [address] [id number] [place] [address] Mar, [facility] [id number] [place] [address] Mar, [facility] [address] [id number] [place] [address] Feb, [facility] [id number] [place] [address] Feb, [facility] [address] [id number] [place] [address] Jan, [facility] [id number] [place] [address] Jan, [facility] [id number] [place] [address] Jan, [facility] [address] [id number] [place] [address] Jan, [facility] [address] [facility] [id number] [place] [address] Dec, [facility] [address] [id number] [place] [address] Dec, [facility] [address] [facility] [id number] [place] [address] Nov, [facility] [address] [facility] [id number] [place] [address] Nov, [facility] [address] [id number] [place] [address] Oct, [facility] [address] [id number] [place] [address] Oct, [facility] [address] [id number] [place] [address] Oct, [facility] [address] [facility] [id number] [place] [address] Oct, [facility] [address] [id number] [place] [address] Oct, [facility] [address] [id number] [place] [address] Oct, [facility] [address] [id number] [place] [address] Oct, [facility] [address] [facility] [id number] [place] [address] Oct, [facility] [address] [id number] [place] [address] Sep, [facility] [address] [id number] [place] [address] Sep, [facility] [address] [id number] [place] [address] Sep, [facility] [address] [id number] [place] [address] Sep, [facility] [address] [id number] [place] [address] Aug, [facility] [address] [id number] [place] [address] Aug, [facility] [address] [id number] [place] [address] Aug, [facility] [address] [id number] [place] [address] Aug, [facility] [address] [id number] [place] [address] July, [facility] [address] [id number] [place] [address] July, [facility] [address] [id number] [place] [address] July, [facility] [address] [id number] [place] [address] July, [facility] [address] [id number] [place] [address] July, [facility] [address] [id number] [place] [address] July, [facility] [address] [id number] [place] [address] Jun, [facility] [address] [id number] [place] [address] 23 Jun, 2013 [facility] [address] [id number] [place] [address] 15 Jun, 2013 [facility] [address] [id number] [place] [address] 15 Jun, 2013 [facility] [address] [id number] [place] [address] 14 Jun, 2013 [facility] [address] [id number] [place] [address] 14 Jun, 2013 [facility] [address] [facility] [id number] [place] [address] 14 Jun, 2013 [facility] [address] [facility] [id number] [place] [address] 14 Jun, 2013 [facility] [address] [id number] [place] [address] 19 May, 2013 [facility] [address] [id number] [place] [address] 19 May, 2013 [facility] [address] [facility] [id number] [place] [address] 18 May, 2013 [facility] [address] [id number] [place] [address] Apr, [facility] [address] [id number] [place] [address] Apr, [facility] [address] [id number] [place] [address] Apr, [facility] [address] [id number] [place] [address] Apr, [facility] [address] [id number] [place] [address] Mar, [facility] [address] [id number] [place] [address] Mar, [facility] [address] [id number] [place] [address] Mar, [facility] [address] [id number] [place] [address] Mar, [facility] [address] [id number] [place] [address] Mar, [facility] [address] [id number] [place] [address] Mar, [facility] [address] [id number] [place] [address] Feb, [facility] [address] [id number] [place] [address] Feb, [facility] [address] [id number] [place] [address] Jan, [facility] [address] [id number] [place] [address] Jan, [facility] [address] [id number] [place] [address] Jan, [facility] [address] [id number] [place] [address] Jan, [facility] [address] [id number] [place] [address] Jan, [facility] [address] [id number] [place] [address] Jan, [facility] [address] [id number] [place] [address] Jan, [facility] [address] [id number] [place] [address] Dec, [facility] [address] [id number] [place] [address] Dec, [facility] [address] [id number] [place] [address] Nov, [facility] [address] [id number] [place] [address] Nov, [facility] [address] [id number] [place] [address] Nov, [facility] [address] [id number] [place] [address] Oct, [facility] [address] [id number] [place] [address] Oct, [facility] [address] [id number] [place] [address] Oct, [facility] [address] [id number] [place] [address] Oct, [facility] [id number] [place] [address] Sep, [facility] [id number] [place] [address] Sep, [facility] [id number] [place] [address] Aug, [facility] [id number] [place] [address] Aug, [facility] [id number] [place] [address] Aug, [facility] [id number] [place] [address] Aug, [facility] [id number] [place] [address] July, [facility] [id number] [place] [address] July, [facility] [id number] [place] [address] July, [facility] [id number] [place] [address] July, [facility] [id number] [place] [address] Jun, [facility] [id number] [place] [address] Jun, [facility] [id number] [place] [address] Feb, [facility] [facility] [address] [id number] [place] [address] Feb, [facility] [address] [id number] [place] [address] Mar, IMMUNIZATIONS No Known Immunizations SOCIAL HISTORY [...]
--- OUTSIDE RECORDS SUMMARY | 2019-08-16 14:11 | XMS REPORT ---
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 Name Role Phone MIRELLA MARIA Unavailable PROBLEMS Type Condition ICD9-CM Code [id number] Code Onset Dates Condition S tatus SNOMED Code Problem Mood disorder F39 Active 341875 05 Problem Low back pain M54.5 Active 348035 005 Problem Acquired hypothyroidism E03.9 Active 025602503 Problem Diabetes type 2, uncontrolled E11.65 Active 594504214 Problem Diabetes type 2, controlled E11.9 Ac tive 10577401 Problem Controlled type 2 diabetes m ellitus without complication, without long- term current use of insulin E11.9 Active 793120677 Problem Uncontrolled type 2 diabetes mellitus with hyperglycemia E11.65 Active 020170455 Problem Hypertension, benign I10 Active 59863583 Problem Other chronic pain G89.29 Active 8 1835204 Problem Shoulder pain, right M25.511 Active 86978076 Problem Cervical radiculopathy M54.12 Active 10451596 Problem History of urethral stricture Z87.448 Active 285531704 Problem alf current use of insulin Z79.4 Active 774623435 Problem Type 2 diabetes mellitus without complications E11 .9 Active 051034652 ALLERGIES No Information ENCOUNTERS Encounter Location Date Diagnosis [facility] [id number] [place] [address] Feb, Controlled type 2 diabetes mellitus with out complication, without long-term current use of insulin E11.9 [facility] [address] [address] Feb, Uncontrolled type 2 diabetes mellitus wi th hyperglycemia E11.65 ; Other chronic pain G89.29 ; Pain in right shoulder M25.511 and Thoracic spine pain M54.6 [facility] [address] [address] Nov, [facility] [id number] [place] [address] Aug, Diabetes type 2, uncontrolled E11.65 [facility] [id number] [place] [address] July, [facility] [address] [id number] [place] [id number] July, Dental examination Z01.20 and Caries K02 .9 [place] [address] [address] Jun, Controlled type 2 diabetes mellitus with out complication, without long-term current use of insulin E11.9 [place] [address] [address] May, Controlled type 2 diabetes mellitus with out complication, without long-term current use of insulin E11.9 [place] [address] [address] Apr, [facility] [address] [address] Mar, Controlled type 2 diabetes mellitus with out complication, without long-term current use of insulin E11.9 [facility] [id number] [place] [address] Jan, [place] [address] [address] Dec, Diabetes type 2, uncontrolled E11.65 [place] [address] [address] Dec, Type 2 diabetes mellitus without complic ations E11.9 ; 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 and Cervicalgia M54.2 [place] [address] [address] Dec, Type 2 diabetes mellitus without complic ations E11.9 ; alf current use of insulin Z79.4 and Cervicalgia M54.2 [place] [address] [address] Dec, Controlled type 2 diabetes mellitus with out complication, without long-term current use of insulin E11.9 [facility] [id number] [place] [address] Nov, [facility] [address] [address] Oct, Diabetes type 2, uncontrolled E11.65 [place] [address] [address] Sep, Diabetes type 2, uncontrolled E11.65 [place] [address] [address] Jun, Controlled type 2 diabetes mellitus with out complication, without long-term current use of insulin E11.9 [place] [address] [address] May, [place] [address] [address] May, Radiculopathy of cervical region M54.12 [place] [address] [address] 14 May, 2017 Controlled type 2 diabetes mellitus with out complication, without long-term current use of insulin E11.9 [place] [address] [address] May, [place] [address] [address] May, Controlled type 2 diabetes mellitus with out complication, without long-term current use of insulin E11.9 [place] [address] [address] May, Controlled type 2 diabetes mellitus with out complication, without long-term current use of insulin E11.9 [place] [address] [address] 05 May, 2017 Controlled type 2 diabetes mellitus with out complication, without long-term current use of insulin E11.9 [place] [address] [address] 15 Apr, 2017 [facility] [id number] [place] [address] Apr, Controlled type 2 diabetes mellitus with out complication, without long-term current use of insulin E11.9 [place] [id number] [place] [address] 07 Apr, 2017 [place] [address] [address] Apr, Controlled type 2 diabetes mellitus with out complication, without long-term current use of insulin E11.9 [place] [address] [address] Mar, [place] [address] [address] Mar, Radiculopathy of cervical region M54.12 [place] [address] [address] Mar, Controlled type 2 diabetes mellitus with out complication, without long-term current use of insulin E11.9 [place] [address] [address] Feb, Cervical radiculopathy M54.12 ; Acute cy stitis without hematuria N30.00 and History of urethral stricture Z87.448 [place] [address] [address] Feb, Controlled type 2 diabetes mellitus with out complication, without long-term current use of insulin E11.9 [place] [address] [place] [address] 05 Feb, 2017 [place] [address] [address] 15 Jan, 2017 Diabetes type 2, uncontrolled E11.65 [place] [address] [address] 15 Jan, 2017 [place] [address] [address] Jan, Controlled type 2 diabetes mellitus with out complication, without long-term current use of insulin E11.9 ; Chest wall pain R07.89 and Thoracic spine pain M54.6 [facility] [id number] [place] [address] Dec, [facility] [address] [address] Dec, [facility] [address] [address] Nov, [facility] [address] [address] Nov, [facility] [address] [facility] [id number] [place] [address] Nov, Trichomonas exposure Z20.2 [facility] [address] [address] Oct, [facility] [address] [address] Oct, [facility] [address] [address] Oct, [facility] [address] [address] Oct, [facility] [address] [address] Sep, [facility] [address] [address] Sep, [facility] [address] [address] Aug, [facility] [address] [address] Aug, [facility] [address] [address] Aug, [facility] [address] [address] Aug, [facility] [id number] [place] [address] July, Diabetes type 2, controlled E11.9 [facility] [id number] [place] [address] July, [facility] [id number] [place] [address] July, [facility] [id number] [place] [address] July, [facility] [id number] [place] [address] July, [facility] [id number] [place] [address] Jun, [facility] [id number] [place] [address] Jun, [facility] [id number] [place] [address] May, [facility] [id number] [place] [address] May, [facility] [id number] [place] [address] May, [facility] [id number] [place] [address] May, Controlled type 2 diabetes mellitus with out complication, without long-term current use of insulin E11.9 [facility] [id number] [place] [address] Apr, [facility] [id number] [place] [address] Apr, [facility] [id number] [place] [address] Mar, [facility] [id number] [place] [address] Mar, [facility] [id number] [place] [address] Feb, [facility] [address] [id number] [place] [address] Feb, [facility] [address] [id number] [place] [address] Jan, [facility] [id number] [place] [address] Jan, [facility] [id number] [place] [address] Jan, [facility] [address] [id number] [place] [address] Dec, [facility] [id number] [place] [address] Dec, [facility] [id number] [place] [address] Dec, [facility] [id number] [place] [address] Nov, Diabetes type 2, uncontrolled E11.65 [facility] [id number] [place] [address] 14 Nov, 2015 [facility] [id number] [place] [address] Nov, [facility] [id number] [place] [address] Oct, [facility] [id number] [place] [address] Oct, [facility] [id number] [place] [address] Sep, Controlled type 2 diabetes mellitus with out complication, without long-term current use of insulin E11.9 [facility] [id number] [place] [address] Sep, [facility] [id number] [place] [address] Sep, [facility] [id number] [place] [address] 07 Sep, 2015 [facility] [address] [address] 05 Sep, 2015 [facility] [address] [address] Aug, Diabetes type 2, controlled E11.9 ; Anxi ety F41.9 ; Carpal tunnel syndrome, left upper limb G56.02 and Carpal tunnel syndrome, right upper limb G56.01 [facility] [address] [address] Aug, Urethritis N34.2 [facility] [address] [address] Aug, [facility] [address] [address] July, Genital warts A63.0 [facility] [address] [address] July, [facility] [address] [address] July, Genital warts A63.0 [facility] [address] [address] July, Anxiety F41.9 [facility] [address] [address] Jun, Genital warts A63.0 [facility] [address] [address] 08 Jun, 2015 Anxiety F41.9 [facility] [address] [address] 15 May, 2015 Genital warts A63.0 and Diabetes type 2, uncontrolled E11.65 [facility] [address] [address] May, [facility] [address] [address] May, [facility] [id number] [place] [address] Apr, [facility] [address] [address] Apr, [facility] [id number] [place] [address] Apr, Diabetes type 2, controlled E11.9 [facility] [address] [address] Apr, Genital warts A63.0 [facility] [address] [address] Apr, [facility] [address] [address] Apr, Diabetes type 2, uncontrolled E11.65 and Genital warts A63.0 [facility] [address] [address] Apr, [facility] [address] [address] Mar, [facility] [address] [address] Mar, [facility] [address] [address] Mar, Family history of diabetes mellitus V18. 0 and Weight loss R63.4 [facility] [address] [address] Mar, Genital warts A63.0 and Family history o f diabetes mellitus V18.0 [facility] [address] [address] Feb, [facility] [address] [address] Jan, [facility] [address] [address] Jan, Perianal venereal warts A63.0 [address] [address] [address] Jan, Urethritis N34.2 and Anxiety F41.9 [address] [address] [address] Jan, [address] [address] [address] Jan, Urinary tract infection, site unspecifie d N39.0 [address] [address] [address] Jan, [address] [address] [address] Dec, [address] [address] [address] Dec, HPV (human papilloma virus) anogenital i nfection A63.0 ; Anxiety F41.9 and Gastroesophageal reflux disease without esophagitis K21.9 [place] [address] [address] Sep, Blood in stool 578.1 [place] [address] [address] Aug, Blood in stool 578.1 [address] [address] [address] Aug, Anxiety 300.00 and Blood in stool 578.1 [address] [address] [address] July, [address] [address] [address] July, Family history of diabetes mellitus V18. 0 [place] [address] [address] July, Family history of diabetes mellitus V18. 0 ; Family history of thyroid disease V18.19 ; Polyuria 788.42 ; Polydipsia 783.5 ; Alopecia 704.00 and Fatigue 780.79 [facility] [address] [id number] [place] [address] Jun, [facility] [address] [id number] [place] [address] Jun, [facility] [address] [id number] [place] [address] Mar, [facility] [id number] [place] [address] Mar, [facility] [address] [id number] [place] [address] Mar, [facility] [id number] [place] [address] Mar, [facility] [id number] [place] [address] Mar, [facility] [id number] [place] [address] Mar, [facility] [id number] [place] [address] Mar, [facility] [id number] [place] [address] Mar, [facility] [address] [id number] [place] [address] Mar, [facility] [id number] [place] [address] Mar, [facility] [address] [id number] [place] [address] Feb, [facility] [id number] [place] [address] Feb, [facility] [address] [id number] [place] [address] Jan, [facility] [id number] [place] [address] Jan, [facility] [id number] [place] [address] Jan, [facility] [address] [id number] [place] [address] Jan, [facility] [address] [facility] [id number] [place] [address] Dec, [facility] [address] [id number] [place] [address] Dec, [facility] [address] [facility] [id number] [place] [address] Nov, [facility] [address] [facility] [id number] [place] [address] Nov, [facility] [address] [id number] [place] [address] Oct, [facility] [address] [id number] [place] [address] Oct, [facility] [address] [id number] [place] [address] Oct, [facility] [address] [facility] [id number] [place] [address] Oct, [facility] [address] [id number] [place] [address] Oct, [facility] [address] [id number] [place] [address] Oct, [facility] [address] [id number] [place] [address] Oct, [facility] [address] [facility] [id number] [place] [address] Oct, [facility] [address] [id number] [place] [address] Sep, [facility] [address] [id number] [place] [address] Sep, [facility] [address] [id number] [place] [address] Sep, [facility] [address] [id number] [place] [address] Sep, [facility] [address] [id number] [place] [address] Aug, [facility] [address] [id number] [place] [address] Aug, [facility] [address] [id number] [place] [address] Aug, [facility] [address] [id number] [place] [address] Aug, [facility] [address] [id number] [place] [address] July, [facility] [address] [id number] [place] [address] July, [facility] [address] [id number] [place] [address] July, [facility] [address] [id number] [place] [address] July, [facility] [address] [id number] [place] [address] July, [facility] [address] [id number] [place] [address] July, [facility] [address] [id number] [place] [address] Jun, [facility] [address] [id number] [place] [address] 23 Jun, 2013 [facility] [address] [id number] [place] [address] 15 Jun, 2013 [facility] [address] [id number] [place] [address] 15 Jun, 2013 [facility] [address] [id number] [place] [address] 14 Jun, 2013 [facility] [address] [id number] [place] [address] 14 Jun, 2013 [facility] [address] [facility] [id number] [place] [address] 14 Jun, 2013 [facility] [address] [facility] [id number] [place] [address] 14 Jun, 2013 [facility] [address] [id number] [place] [address] 19 May, 2013 [facility] [address] [id number] [place] [address] 19 May, 2013 [facility] [address] [facility] [id number] [place] [address] 18 May, 2013 [facility] [address] [id number] [place] [address] Apr, [facility] [address] [id number] [place] [address] Apr, [facility] [address] [id number] [place] [address] Apr, [facility] [address] [id number] [place] [address] Apr, [facility] [address] [id number] [place] [address] Mar, [facility] [address] [id number] [place] [address] Mar, [facility] [address] [id number] [place] [address] Mar, [facility] [address] [id number] [place] [address] Mar, [facility] [address] [id number] [place] [address] Mar, [facility] [address] [id number] [place] [address] Mar, [facility] [address] [id number] [place] [address] Feb, [facility] [address] [id number] [place] [address] Feb, [facility] [address] [id number] [place] [address] Jan, [facility] [address] [id number] [place] [address] Jan, [facility] [address] [id number] [place] [address] Jan, [facility] [address] [id number] [place] [address] Jan, [facility] [address] [id number] [place] [address] Jan, [facility] [address] [id number] [place] [address] Jan, [facility] [address] [id number] [place] [address] Jan, [facility] [address] [id number] [place] [address] Dec, [facility] [address] [id number] [place] [address] Dec, [facility] [address] [id number] [place] [address] Nov, [facility] [address] [id number] [place] [address] Nov, [facility] [address] [id number] [place] [address] Nov, [facility] [address] [id number] [place] [address] Oct, [facility] [address] [id number] [place] [address] Oct, [facility] [address] [id number] [place] [address] Oct, [facility] [address] [id number] [place] [address] Oct, [facility] [id number] [place] [address] Sep, [facility] [id number] [place] [address] Sep, [facility] [id number] [place] [address] Aug, [facility] [id number] [place] [address] Aug, [facility] [id number] [place] [address] Aug, [facility] [id number] [place] [address] Aug, [facility] [id number] [place] [address] July, [facility] [id number] [place] [address] July, [facility] [id number] [place] [address] July, [facility] [id number] [place] [address] July, [facility] [id number] [place] [address] Jun, [facility] [id number] [place] [address] Jun, [facility] [id number] [place] [address] Feb, [facility] [id number] [place] [address] Feb, [facility] [id number] [place] [address] Mar, IMMUNIZATIONS No Known Immunizations SOCIAL HISTORY [...]
--- OUTSIDE RECORDS SUMMARY | 2019-08-16 14:11 | XMS REPORT ---
Author Author Joseph MARIA Organization 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 Name Role Phone MIRELLA MARIA Unavailable PROBLEMS Type Condition ICD9-CM Code ZFD05-CS Code Onset Dates Condition S tatus SNOMED Code Problem Mood disorder F39 Active 224283 05 Problem Low back pain M54.5 Active 654758 005 Problem Acquired hypothyroidism E03.9 Active 666106280 Problem Diabetes type 2, uncontrolled E11.65 Active 153313762 Problem Diabetes type 2, controlled E11.9 Ac tive 06338640 Problem Controlled type 2 diabetes m ellitus without complication, without long- term current use of insulin E11.9 Active 941666228 Problem Uncontrolled type 2 diabetes mellitus with hyperglycemia E11.65 Active 782278778 Problem Hypertension, benign I10 Active 77546291 Problem Other chronic pain G89.29 Active 8 9971061 Problem Shoulder pain, right M25.511 Active 98382308 Problem History of urethral stricture Z87.448 Active 193767584 Problem Cervical radiculopathy M54.12 Active 61441059 Problem 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 Active 364949896 Problem Type 2 diabetes mellitus without complications E11 .9 Active [id number] ALLERGIES No Information ENCOUNTERS Encounter Location Date Diagnosis [facility] [id number] [place] [address] Feb, Controlled type 2 diabetes mellitus with out complication, without long-term current use of insulin E11.9 [facility] [address] [address] Feb, Uncontrolled type 2 diabetes mellitus wi th hyperglycemia E11.65 ; Other chronic pain G89.29 ; Pain in right shoulder M25.511 and Thoracic spine pain M54.6 [facility] [address] [address] Nov, [facility] [id number] [place] [address] Aug, Diabetes type 2, uncontrolled E11.65 [facility] [id number] [place] [address] July, [facility] [address] [id number] [place] [id number] July, Dental examination Z01.20 and Caries K02 .9 [place] [address] [address] Jun, Controlled type 2 diabetes mellitus with out complication, without long-term current use of insulin E11.9 [place] [address] [address] May, Controlled type 2 diabetes mellitus with out complication, without long-term current use of insulin E11.9 [place] [address] [address] Apr, [facility] [address] [address] Mar, Controlled type 2 diabetes mellitus with out complication, without long-term current use of insulin E11.9 [place] [id number] [place] [address] Jan, [place] [address] [address] Dec, Diabetes type 2, uncontrolled E11.65 [place] [address] [address] Dec, Type 2 diabetes mellitus without complic ations E11.9 ; intermediate frame tender current use of insulin Z79.4 and Cervicalgia M54.2 [place] [address] [address] Dec, Type 2 diabetes mellitus without complic ations E11.9 ; 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 and Cervicalgia M54.2 [place] [address] [address] Dec, Controlled type 2 diabetes mellitus with out complication, without long-term current use of insulin E11.9 [place] [id number] [place] [address] Nov, [facility] [address] [address] Oct, Diabetes type 2, uncontrolled E11.65 [place] [address] [address] Sep, Diabetes type 2, uncontrolled E11.65 [place] [address] [address] Jun, Controlled type 2 diabetes mellitus with out complication, without long-term current use of insulin E11.9 [place] [address] [address] May, [place] [address] [address] May, Radiculopathy of cervical region M54.12 [place] [address] [address] 14 May, 2017 Controlled type 2 diabetes mellitus with out complication, without long-term current use of insulin E11.9 [place] [address] [address] May, [place] [address] [address] May, Controlled type 2 diabetes mellitus with out complication, without long-term current use of insulin E11.9 [place] [address] [address] May, Controlled type 2 diabetes mellitus with out complication, without long-term current use of insulin E11.9 [place] [address] [address] 05 May, 2017 Controlled type 2 diabetes mellitus with out complication, without long-term current use of insulin E11.9 [place] [address] [address] 15 Apr, 2017 [place] [id number] [place] [address] Apr, Controlled type 2 diabetes mellitus with out complication, without long-term current use of insulin E11.9 [place] [id number] [place] [address] 07 Apr, 2017 [place] [address] [address] Apr, Controlled type 2 diabetes mellitus with out complication, without long-term current use of insulin E11.9 [place] [address] [address] Mar, [place] [address] [address] Mar, Radiculopathy of cervical region M54.12 [place] [address] [address] Mar, Controlled type 2 diabetes mellitus with out complication, without long-term current use of insulin E11.9 [place] [address] [address] Feb, Cervical radiculopathy M54.12 ; Acute cy stitis without hematuria N30.00 and History of urethral stricture Z87.448 [place] [address] [address] Feb, Controlled type 2 diabetes mellitus with out complication, without long-term current use of insulin E11.9 [place] [id number] [place] [address] 05 Feb, 2017 [place] [address] [address] 15 Jan, 2017 Diabetes type 2, uncontrolled E11.65 [place] [address] [address] 15 Jan, 2017 [place] [address] [address] Jan, Controlled type 2 diabetes mellitus with out complication, without long-term current use of insulin E11.9 ; Chest wall pain R07.89 and Thoracic spine pain M54.6 [facility] [id number] [place] [address] Dec, [facility] [address] [address] Dec, [facility] [address] [address] Nov, [facility] [address] [address] Nov, [facility] [address] [facility] [id number] [place] [address] Nov, Trichomonas exposure Z20.2 [facility] [address] [address] Oct, [facility] [address] [address] Oct, [facility] [address] [address] Oct, [facility] [address] [address] Oct, [facility] [address] [address] Sep, [facility] [address] [address] Sep, [facility] [address] [address] Aug, [facility] [address] [address] Aug, [facility] [address] [address] Aug, [facility] [address] [address] Aug, [facility] [id number] [place] [address] July, Diabetes type 2, controlled E11.9 [facility] [id number] [place] [address] July, [facility] [id number] [place] [address] July, [facility] [id number] [place] [address] July, [facility] [id number] [place] [address] July, [facility] [id number] [place] [address] Jun, [facility] [id number] [place] [address] Jun, [facility] [id number] [place] [address] May, [facility] [id number] [place] [address] May, [facility] [id number] [place] [address] May, [facility] [id number] [place] [address] May, Controlled type 2 diabetes mellitus with out complication, without long-term current use of insulin E11.9 [facility] [id number] [place] [address] Apr, [facility] [id number] [place] [address] Apr, [facility] [id number] [place] [address] Mar, [facility] [id number] [place] [address] Mar, [facility] [id number] [place] [address] Feb, [facility] [address] [id number] [place] [address] Feb, [facility] [address] [id number] [place] [address] Jan, [facility] [id number] [place] [address] Jan, [facility] [id number] [place] [address] Jan, [facility] [address] [id number] [place] [address] Dec, [facility] [id number] [place] [address] Dec, [facility] [id number] [place] [address] Dec, [facility] [id number] [place] [address] Nov, Diabetes type [address], [address] [facility] [id number] [place] [address] [address], [address] [facility] [id number] [place] [address] Nov, [facility] [id number] [place] [address] Oct, [facility] [id number] [place] [address] Oct, [facility] [id number] [place] [address] Sep, Controlled type 2 diabetes mellitus with out complication, without long-term current use of insulin E11.9 [facility] [id number] [place] [address] Sep, [facility] [id number] [place] [address] Sep, [facility] [id number] [place] [address] [address], 2015 [facility] [address] [address] 05 Sep, 2015 [facility] [address] [address] Aug, Diabetes type 2, controlled E11.9 ; Anxi ety F41.9 ; Carpal tunnel syndrome, left upper limb G56.02 and Carpal tunnel syndrome, right upper limb G56.01 [facility] [address] [address] Aug, Urethritis N34.2 [facility] [address] [address] Aug, [facility] [address] [address] July, Genital warts A63.0 [facility] [address] [address] July, [facility] [address] [address] July, Genital warts A63.0 [facility] [address] [address] July, Anxiety F41.9 [facility] [address] [address] Jun, Genital warts A63.0 [facility] [address] [address] 08 Jun, [address] [facility] [address] [address] 15 May, 2015 Genital warts A63.0 and Diabetes type [address], [address] [facility] [address] [address] May, [facility] [address] [address] May, [facility] [id number] [place] [address] Apr, [facility] [address] [address] Apr, [facility] [id number] [place] [address] Apr, Diabetes type 2, controlled E11.9 [facility] [address] [address] Apr, Genital warts A63.0 [facility] [address] [address] Apr, [facility] [address] [address] Apr, Diabetes type 2, uncontrolled E11.65 and Genital warts A63.0 [facility] [address] [address] Apr, [facility] [address] [address] Mar, [facility] [address] [address] Mar, [facility] [address] [address] Mar, Family history of diabetes mellitus V18. [address] [facility] [address] [address] Mar, Genital warts A63.0 and Family history o f diabetes mellitus V18.0 [facility] [address] [address] Feb, [facility] [address] [address] Jan, [facility] [address] [address] Jan, Perianal venereal warts A63.0 [place] [address] [address] Jan, Urethritis N34.2 and Anxiety F41.9 [place] [address] [address] Jan, [place] [address] [address] Jan, Urinary tract infection, site unspecifie d N39.0 [place] [address] [address] Jan, [place] [address] [address] Dec, [place] [address] [address] Dec, HPV (human papilloma virus) anogenital i nfection A63.0 ; Anxiety F41.9 and Gastroesophageal reflux disease without esophagitis K21.9 [place] [address] [address] Sep, Blood in stool 578.1 [place] [address] [address] Aug, Blood in stool 578.1 [place] [address] [address] Aug, Anxiety 300.00 and Blood in stool 578.1 [place] [address] [address] July, [place] [address] [address] July, Family history of diabetes mellitus V18. 0 [place] [address] [address] July, Family history of diabetes mellitus V18. 0 ; Family history of thyroid disease V18.19 ; Polyuria 788.42 ; Polydipsia 783.5 ; Alopecia 704.00 and Fatigue 780.79 [facility] [address] [id number] [place] [address] Jun, [facility] [address] [id number] [place] [address] Jun, [facility] [address] [id number] [place] [address] Mar, [facility] [id number] [place] [address] Mar, [facility] [address] [id number] [place] [address] Mar, [facility] [id number] [place] [address] Mar, [facility] [id number] [place] [address] Mar, [facility] [id number] [place] [address] Mar, [facility] [id number] [place] [address] Mar, [facility] [id number] [place] [address] Mar, [facility] [address] [id number] [place] [address] Mar, [facility] [id number] [place] [address] Mar, [facility] [address] [id number] [place] [address] Feb, [facility] [id number] [place] [address] Feb, [facility] [address] [id number] [place] [address] Jan, [facility] [id number] [place] [address] Jan, [facility] [id number] [place] [address] Jan, [facility] [id number] [place] [address] Jan, [facility] [address] [facility] 2[facility] [id number] [place] [address] Dec, [facility] [address] [id number] [place] [address] Dec, [facility] [address] [facility] 2] [id number] [place] [address] Nov, [facility] [address] [facility] 2] [id number] [place] [address] Nov, [facility] [address] [id number] [place] [address] Oct, [facility] [address] [id number] [place] [address] Oct, [facility] [address] [id number] [place] [address] Oct, [facility] [address] [facility] [place] [id number] [place] [address] Oct, [facility] [address] [id number] [place] [address] Oct, [facility] [address] [id number] [place] [address] Oct, [facility] [address] [id number] [place] [address] Oct, [facility] [address] [facility] [id number] [place] [address] Oct, [facility] [address] [id number] [place] [address] Sep, [facility] [address] [id number] [place] [address] Sep, [facility] [address] [id number] [place] [address] Sep, [facility] [address] [id number] [place] [address] Sep, [facility] [address] [id number] [place] [address] Aug, [facility] [address] [id number] [place] [address] Aug, [facility] [address] [id number] [place] [address] Aug, [facility] [address] [id number] [place] [address] Aug, [facility] [address] [id number] [place] [address] July, [facility] [address] [id number] [place] [address] July, [facility] [address] [id number] [place] [address] July, [facility] [address] [id number] [place] [address] July, [facility] [address] [id number] [place] [address] July, [facility] [address] [id number] [place] [address] July, [facility] [address] [id number] [place] [address] Jun, [facility] [address] [id number] [place] [address] 23 Jun, 2013 [facility] [address] [id number] [place] [address] 15 Jun, 2013 [facility] [address] [id number] [place] [address] 15 Jun, 2013 [facility] [address] [id number] [place] [address] 14 Jun, 2013 [facility] [address] [id number] [place] [address] 14 Jun, 2013 [facility] [address] [facility] [id number] [place] [address] 14 Jun, 2013 [facility] [address] [facility] [id number] [place] [address] 14 Jun, 2013 [facility] [address] [id number] [place] [address] 19 May, 2013 [facility] [address] [id number] [place] [address] 19 May, 2013 [facility] [address] [facility] [id number] [place] [address] 18 May, 2013 [facility] [address] [id number] [place] [address] Apr, [facility] [address] [id number] [place] [address] Apr, [facility] [address] [id number] [place] [address] Apr, [facility] [address] [id number] [place] [address] Apr, [facility] [address] [id number] [place] [address] Mar, [facility] [address] [id number] [place] [address] Mar, [facility] [address] [id number] [place] [address] Mar, [facility] [address] [id number] [place] [address] Mar, [facility] [address] [id number] [place] [address] Mar, [facility] [address] [id number] [place] [address] Mar, [facility] [address] [id number] [place] [address] Feb, [facility] [address] [id number] [place] [address] Feb, [facility] [address] [id number] [place] [address] Jan, [facility] [address] [id number] [place] [address] Jan, [facility] [address] [id number] [place] [address] Jan, [facility] [address] [id number] [place] [address] Jan, [facility] [address] [id number] [place] [address] Jan, [facility] [address] [id number] [place] [address] Jan, [facility] [address] [id number] [place] [address] Jan, [facility] [address] [id number] [place] [address] Dec, [facility] [address] [id number] [place] [address] Dec, [facility] [address] [id number] [place] [address] Nov, [facility] [address] [id number] [place] [address] Nov, [facility] [address] [id number] [place] [address] Nov, [facility] [address] [id number] [place] [address] Oct, [facility] [address] [id number] [place] [address] Oct, [facility] [address] [id number] [place] [address] Oct, [facility] [address] [id number] [place] [address] Oct, [facility] [id number] [place] [address] Sep, [facility] [id number] [place] [address] Sep, [facility] [id number] [place] [address] Aug, [facility] [id number] [place] [address] Aug, [facility] [id number] [place] [address] Aug, [facility] [id number] [place] [address] Aug, [facility] [id number] [place] [address] July, [facility] [address] [id number] [place] [address] July, [facility] [address] [id number] [place] [address] July, [facility] [address] [id number] [place] [address] July, [facility] [address] [id number] [place] [address] Jun, [facility] [address] [id number] [place] [address] Jun, [facility] [address] [id number] [place] [address] Feb, [facility] [address] [id number] [place] [address] Feb, [facility] [address] [id number] [place] [address] Mar, IMMUNIZATIONS No Known Immunizations SOCIAL HISTORY [...]
--- OUTSIDE RECORDS SUMMARY | 2019-08-16 14:11 | XMS REPORT ---
Author Author Joseph MARIA Organization [facility] Address [address] [place] [address] Care Team Providers Care Porter Sample Case Name Role Phone MIRELLA MARIA Unavailable PROBLEMS Type Condition ICD9-CM Code ATH98-FZ Code Onset Dates Condition S tatus SNOMED Code Problem Mood disorder F39 Active 332088 05 Problem Low back pain M54.5 Active 876865 005 Problem Acquired hypothyroidism E03.9 Active 413610145 Problem Diabetes type 2, uncontrolled E11.65 Active 157522790 Problem Diabetes type 2, controlled E11.9 Ac tive 29816724 Problem Controlled type 2 diabetes m ellitus without complication, without long- term current use of insulin E11.9 Active 899699402 Problem Uncontrolled type 2 diabetes mellitus with hyperglycemia E11.65 Active 720893845 Problem Hypertension, benign I10 Active 88269158 Problem Other chronic pain G89.29 Active 8 1015262 Problem Shoulder pain, right M25.511 Active 19531480 Problem Cervical radiculopathy M54.12 Active 86126520 Problem History of urethral stricture Z87.448 Active 587757325 Problem care home current use of insulin Z79.4 Active 385410765 Problem Type 2 diabetes mellitus without complications E11 .9 Active 731267105 ALLERGIES No Information ENCOUNTERS Encounter Location Date Diagnosis [facility] [id number] [place] [address] Feb, Controlled type 2 diabetes mellitus with out complication, without long-term current use of insulin E11.9 [facility] [address] [address] Feb, Uncontrolled type 2 diabetes mellitus wi th hyperglycemia E11.65 ; Other chronic pain G89.29 ; Pain in right shoulder M25.511 and Thoracic spine pain M54.6 [facility] [address] [address] Nov, [facility] [id number] [place] [address] Aug, Diabetes type 2, uncontrolled E11.65 [facility] [id number] [place] [address] July, [facility] [address] [id number] [place] [id number] July, Dental examination Z01.20 and Caries K02 .9 [address] [address] Jun, Controlled type 2 diabetes mellitus with out complication, without long-term current use of insulin E11.9 [place] [address] [address] May, Controlled type 2 diabetes mellitus with out complication, without long-term current use of insulin E11.9 [place] [address] [address] Apr, [facility] [address] [address] Mar, Controlled type 2 diabetes mellitus with out complication, without long-term current use of insulin E11.9 [facility] [id number] [place] [address] Jan, [place] [address] [address] Dec, Diabetes type 2, uncontrolled E11.65 [place] [address] [address] Dec, Type 2 diabetes mellitus without complic ations E11.9 ; [employer] current use of insulin Z79.4 and Cervicalgia M54.2 [place] [address] [address] Dec, Type 2 diabetes mellitus without complic ations E11.9 ; care home current use of insulin Z79.4 and Cervicalgia M54.2 [place] [address] [address] Dec, Controlled type 2 diabetes mellitus with out complication, without long-term current use of insulin E11.9 [facility] [facility] [id number] [place] [address] Nov, [facility] [address] [address] Oct, Diabetes type 2, uncontrolled E11.65 [place] [address] [address] Sep, Diabetes type 2, uncontrolled E11.65 [place] [address] [address] Jun, Controlled type 2 diabetes mellitus with out complication, without long-term current use of insulin E11.9 [place] [address] [address] May, [address] [address] [address] May, Radiculopathy of cervical region M54.12 [address] [address] [address] 14 May, 2017 Controlled type 2 diabetes mellitus with out complication, without long-term current use of insulin E11.9 [place] [address] [address] May, [place] [address] [address] May, Controlled type 2 diabetes mellitus with out complication, without long-term current use of insulin E11.9 [place] [address] [address] May, Controlled type 2 diabetes mellitus with out complication, without long-term current use of insulin E11.9 [place] [address] [address] 05 May, 2017 Controlled type 2 diabetes mellitus with out complication, without long-term current use of insulin E11.9 [place] [address] [address] 15 Apr, 2017 [place] [facility] [id number] [place] [address] Apr, Controlled type 2 diabetes mellitus with out complication, without long-term current use of insulin E11.9 [facility] [id number] [place] [address] 07 Apr, 2017 [address] [place] [address] [address] Apr, Controlled type 2 diabetes mellitus with out complication, without long-term current use of insulin E11.9 [place] [address] [address] Mar, [place] [address] [address] Mar, Radiculopathy of cervical region M54.12 [place] [address] [address] Mar, Controlled type 2 diabetes mellitus with out complication, without long-term current use of insulin E11.9 [place] [address] [address] Feb, Cervical radiculopathy M54.12 ; Acute cy stitis without hematuria N30.00 and History of urethral stricture Z87.448 [place] [address] [address] Feb, Controlled type 2 diabetes mellitus with out complication, without long-term current use of insulin E11.9 [place] [id number] [place] [address] 05 Feb, 2017 [address] [address] [address] 15 Jan, 2017 Diabetes type 2, uncontrolled E11.65 [place] [address] [address] 15 Jan, 2017 [address] [address] [address] Jan, Controlled type 2 diabetes mellitus with out complication, without long-term current use of insulin E11.9 ; Chest wall pain R07.89 and Thoracic spine pain M54.6 [facility] [id number] [place] [address] Dec, [facility] [address] [address] Dec, [facility] [address] [address] Nov, [facility] [address] [address] Nov, [facility] [address] [facility] [id number] [place] [address] Nov, Trichomonas exposure Z20.2 [facility] [address] [address] Oct, [facility] [address] [address] Oct, [facility] [address] [address] Oct, [facility] [address] [address] Oct, [facility] [address] [address] Sep, [facility] [address] [address] Sep, [facility] [address] [address] Aug, [facility] [address] [address] Aug, [facility] [address] [address] Aug, [facility] [address] [address] Aug, [facility] [id number] [place] [address] July, Diabetes type 2, controlled E11.9 [facility] [id number] [place] [address] July, [facility] [id number] [place] [address] July, [facility] [id number] [place] [address] July, [facility] [id number] [place] [address] July, [facility] [id number] [place] [address] Jun, [facility] [id number] [place] [address] Jun, [facility] [id number] [place] [address] May, [facility] [id number] [place] [address] May, [facility] [id number] [place] [address] May, [facility] [id number] [place] [address] May, Controlled type 2 diabetes mellitus with out complication, without long-term current use of insulin E11.9 [facility] [id number] [place] [address] Apr, [facility] [id number] [place] [address] Apr, [facility] [id number] [place] [address] Mar, [facility] [id number] [place] [address] Mar, [facility] [id number] [place] [address] Feb, [facility] [address] [id number] [place] [address] Feb, [facility] [address] [id number] [place] [address] Jan, [facility] [id number] [place] [address] Jan, [facility] [id number] [place] [address] Jan, [facility] [address] [id number] [place] [address] Dec, [facility] [id number] [place] [address] Dec, [facility] [id number] [place] [address] Dec, [facility] [id number] [place] [address] Nov, Diabetes type 2, uncontrolled E11.65 [facility] [id number] [place] [address] 14 Nov, 2015 [facility] [id number] [place] [address] Nov, [facility] [id number] [place] [address] Oct, [facility] [id number] [place] [address] Oct, [facility] [id number] [place] [address] Sep, Controlled type 2 diabetes mellitus with out complication, without long-term current use of insulin E11.9 [facility] [id number] [place] [address] Sep, [facility] [id number] [place] [address] Sep, [facility] [id number] [place] [address] 07 Sep, 2015 [facility] [address] [address] 05 Sep, 2015 [facility] [address] [address] Aug, Diabetes type 2, controlled E11.9 ; Anxi ety F41.9 ; Carpal tunnel syndrome, left upper limb G56.02 and Carpal tunnel syndrome, right upper limb G56.01 [facility] [address] [address] Aug, Urethritis N34.2 [facility] [address] [address] Aug, [facility] [address] [address] July, Genital warts A63.0 [facility] [address] [address] July, [facility] [address] [address] July, Genital warts A63.0 [facility] [address] [address] July, Anxiety F41.9 [facility] [address] [address] Jun, Genital warts A63.0 [facility] [address] [address] 08 Jun, 2015 Anxiety F41.9 [facility] [address] [address] 15 May, 2015 Genital warts A63.0 and Diabetes type 2, uncontrolled E11.65 [facility] [address] [address] May, [facility] [address] [address] May, [facility] [id number] [place] [address] Apr, [facility] [address] [address] Apr, [facility] [id number] [place] [address] Apr, Diabetes type 2, controlled E11.9 [facility] [address] [address] Apr, Genital warts A63.0 [facility] [address] [address] Apr, [facility] [address] [address] Apr, Diabetes type 2, uncontrolled E11.65 and Genital warts A63.0 [facility] [address] [address] Apr, [facility] [address] [address] Mar, [facility] [address] [address] Mar, [facility] [address] [address] Mar, Family history of diabetes mellitus V18. 0 and Weight loss R63.4 [facility] [address] [address] Mar, Genital warts A63.0 and Family history o f diabetes mellitus V18.0 [facility] [address] [address] Feb, [facility] [address] [address] Jan, [facility] [address] [address] Jan, Perianal venereal warts A63.0 [address] [place] [address] [address] Jan, Urethritis N34.2 and Anxiety F41.9 [address] [place] [address] [address] Jan, [address] [place] [address] Jan, Urinary tract infection, site unspecifie d N39.0 [address] [place] [address] Jan, [address] [place] [address] Dec, [address] [address] Dec, HPV (human papilloma virus) anogenital i nfection A63.0 ; Anxiety F41.9 and Gastroesophageal reflux disease without esophagitis K21.9 [address] [place] [address] [address] Sep, Blood in stool 578.1 [address] [place] [address] Aug, Blood in stool 578.1 [address] [place] [address] Aug, Anxiety 300.00 and Blood in stool 578.1 [address] [address] July, [address] [place] [address] July, Family history of diabetes mellitus V18. 0 [address] [place] [address] July, Family history of diabetes mellitus V18. 0 ; Family history of thyroid disease V18.19 ; Polyuria 788.42 ; Polydipsia 783.5 ; Alopecia 704.00 and Fatigue 780.79 [facility] [address] [id number] [place] [address] Jun, [facility] [address] [id number] [place] [address] Jun, [facility] [address] [id number] [place] [address] Mar, [facility] [id number] [place] [address] Mar, [facility] [address] [id number] [place] [address] Mar, [facility] [id number] [place] [address] Mar, [facility] [id number] [place] [address] Mar, [facility] [id number] [place] [address] Mar, [facility] [id number] [place] [address] Mar, [facility] [id number] [place] [address] Mar, [facility] [address] [id number] [place] [address] Mar, [facility] [id number] [place] [address] Mar, [facility] [address] [id number] [place] [address] Feb, [facility] [id number] [place] [address] Feb, [facility] [address] [id number] [place] [address] Jan, [facility] [id number] [place] [address] Jan, [facility] [id number] [place] [address] Jan, [facility] [address] [id number] [place] [address] Jan, [facility] [address] [facility] [id number] [place] [address] Dec, [facility] [address] [id number] [place] [address] Dec, [facility] [address] [facility] [id number] [place] [address] Nov, [facility] [address] [facility] [id number] [place] [address] Nov, [facility] [id number] [place] [address] Oct, [facility] [id number] [place] [address] Oct, [facility] [address] [id number] [place] [address] Oct, [facility] [address] [facility] [id number] [place] [address] Oct, [facility] [address] [id number] [place] [address] Oct, [facility] [address] [id number] [place] [address] Oct, [facility] [address] [id number] [place] [address] Oct, [facility] [address] [facility] [id number] [place] [address] Oct, [facility] [address] [id number] [place] [address] Sep, [facility] [address] [id number] [place] [address] Sep, [facility] [address] [id number] [place] [address] Sep, [facility] [address] [id number] [place] [address] Sep, [facility] [id number] [place] [address] Aug, [facility] [address] [id number] [place] [address] Aug, [facility] [address] [id number] [place] [address] Aug, [facility] [address] [id number] [place] [address] Aug, [facility] [address] [id number] [place] [address] July, [facility] [address] [id number] [place] [address] July, [facility] [address] [id number] [place] [address] July, [facility] [address] [id number] [place] [address] July, [facility] [address] [id number] [place] [address] July, [facility] [address] [id number] [place] [address] July, [facility] [address] [id number] [place] [address] Jun, [facility] [address] [id number] [place] [address] 23 Jun, 2013 [facility] [address] [id number] [place] [address] 15 Jun, 2013 [facility] [address] [id number] [place] [address] 15 Jun, 2013 [facility] [address] [id number] [place] [address] 14 Jun, 2013 [facility] [address] [id number] [place] [address] 14 Jun, 2013 [facility] [address] [facility] [id number] [place] [address] 14 Jun, 2013 [facility] [address] [facility] [id number] [place] [address] 14 Jun, 2013 [facility] [address] [id number] [place] [address] 19 May, 2013 [facility] [address] [id number] [place] [address] 19 May, 2013 [facility] [address] [facility] [id number] [place] [address] 18 May, 2013 [facility] [address] [id number] [place] [address] Apr, [facility] [address] [id number] [place] [address] Apr, [facility] [address] [id number] [place] [address] Apr, [facility] [address] [id number] [place] [address] Apr, [facility] [address] [id number] [place] [address] Mar, [facility] [address] [id number] [place] [address] Mar, [facility] [address] [id number] [place] [address] Mar, [facility] [address] [id number] [place] [address] Mar, [facility] [address] [id number] [place] [address] Mar, [facility] [address] [id number] [place] [address] Mar, [facility] [address] [id number] [place] [address] Feb, [facility] [address] [id number] [place] [address] Feb, [facility] [address] [id number] [place] [address] Jan, [facility] [address] [id number] [place] [address] Jan, [facility] [address] [id number] [place] [address] Jan, [facility] [address] [id number] [place] [address] Jan, [facility] [address] [id number] [place] [address] Jan, [facility] [address] [id number] [place] [address] Jan, [facility] [address] [facility] [id number] [place] [address] Jan, [facility] [address] [id number] [place] [address] Dec, [facility] [address] [facility] [id number] [place] [address] Dec, [facility] [address] [id number] [place] [address] Nov, [facility] [address] [id number] [place] [address] Nov, [facility] [address] [facility] [id number] [place] [address] Nov, [facility] [address] [id number] [place] [address] Oct, [facility] [address] [id number] [place] [address] Oct, [facility] [address] [id number] [place] [address] Oct, [facility] [address] [id number] [place] [address] Oct, [facility] [id number] [place] [address] Sep, [facility] [id number] [place] [address] Sep, [facility] [id number] [place] [address] Aug, [facility] [id number] [place] [address] Aug, [facility] [id number] [place] [address] Aug, [facility] [id number] [place] [address] Aug, [facility] [id number] [place] [address] July, [facility] [id number] [place] [address] July, [facility] [id number] [place] [address] July, [facility] [id number] [place] [address] July, [facility] [id number] [place] [address] Jun, [facility] [id number] [place] [address] Jun, [facility] [id number] [place] [address] Feb, [facility] [id number] [place] [address] Feb, [facility] [id number] [place] [address] Mar, IMMUNIZATIONS No Known Immunizations SOCIAL HISTORY [...]
--- OUTSIDE RECORDS SUMMARY | 2019-08-16 14:12 | XMS REPORT ---
Author Author Joseph MARIA Organization [facility] Address [address] [place] [address] Care Team Providers Care Machine Riveter Name Role Phone MIRELLA MARIA Unavailable PROBLEMS Type Condition ICD9-CM Code [id number] Code Onset Dates Condition S tatus SNOMED Code Problem Mood disorder F39 Active 585667 05 Problem Low back pain M54.5 Active 795773 005 Problem Acquired hypothyroidism E03.9 Active 796253084 Problem Diabetes type 2, uncontrolled E11.65 Active 948004316 Problem Diabetes type 2, controlled E11.9 Ac tive 74793388 Problem Controlled type 2 diabetes m ellitus without complication, without long- term current use of insulin E11.9 Active 423152251 Problem Uncontrolled type 2 diabetes mellitus with hyperglycemia E11.65 Active 195835724 Problem Hypertension, benign I10 Active 93187012 Problem Other chronic pain G89.29 Active 8 5415500 Problem Shoulder pain, right M25.511 Active 59906167 Problem Cervical radiculopathy M54.12 Active 10031640 Problem History of urethral stricture Z87.448 Active 747692082 Problem [facility] current use of insulin Z79.4 Active 345380316 Problem Type 2 diabetes mellitus without complications E11 .9 Active [id number] ALLERGIES No Information ENCOUNTERS Encounter Location Date Diagnosis [facility] [id number] [place] [address] Feb, Controlled type 2 diabetes mellitus with out complication, without long-term current use of insulin E11.9 [facility] [address] [address] Feb, Uncontrolled type 2 diabetes mellitus wi th hyperglycemia E11.65 ; Other chronic pain G89.29 ; Pain in right shoulder M25.511 and Thoracic spine pain M54.6 [facility] [address] [address] Nov, [facility] [id number] [place] [address] Aug, Diabetes type 2, uncontrolled E11.65 [facility] [id number] [place] [address] July, [facility] [address] [id number] [place] [id number] July, Dental examination Z01.20 and Caries K02 .9 [place] [address] [address] Jun, Controlled type 2 diabetes mellitus with out complication, without long-term current use of insulin E11.9 [place] [address] [address] May, Controlled type 2 diabetes mellitus with out complication, without long-term current use of insulin E11.9 [place] [address] [address] Apr, [facility] [address] [address] Mar, Controlled type 2 diabetes mellitus with out complication, without long-term current use of insulin E11.9 [place] [id number] [place] [address] Jan, [place] [address] [address] Dec, Diabetes type 2, uncontrolled E11.65 [place] [address] [address] Dec, Type 2 diabetes mellitus without complic ations E11.9 ; 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 and Cervicalgia M54.2 [place] [address] [address] Dec, Type 2 diabetes mellitus without complic ations E11.9 ; [facility] current use of insulin Z79.4 and Cervicalgia M54.2 [place] [address] [address] Dec, Controlled type 2 diabetes mellitus with out complication, without long-term current use of insulin E11.9 [place] [address] [place] [address] Nov, [facility] [address] [address] Oct, Diabetes type 2, uncontrolled E11.65 [place] [address] [address] Sep, Diabetes type 2, uncontrolled E11.65 [place] [address] [address] Jun, Controlled type 2 diabetes mellitus with out complication, without long-term current use of insulin E11.9 [place] [address] [address] May, [place] [address] [address] May, Radiculopathy of cervical region M54.12 [place] [address] [address] 14 May, 2017 Controlled type 2 diabetes mellitus with out complication, without long-term current use of insulin E11.9 [place] [address] [address] May, [place] [address] [address] May, Controlled type 2 diabetes mellitus with out complication, without long-term current use of insulin E11.9 [place] [address] [address] May, Controlled type 2 diabetes mellitus with out complication, without long-term current use of insulin E11.9 [place] [address] [address] 05 May, 2017 Controlled type 2 diabetes mellitus with out complication, without long-term current use of insulin E11.9 [place] [address] [address] 15 Apr, 2017 [place] [address] [place] [address] Apr, Controlled type 2 diabetes mellitus with out complication, without long-term current use of insulin E11.9 [place] [id number] [place] [address] 07 Apr, 2017 [place] [address] [address] Apr, Controlled type 2 diabetes mellitus with out complication, without long-term current use of insulin E11.9 [place] [address] [address] Mar, [place] [address] [address] Mar, Radiculopathy of cervical region M54.12 [place] [address] [address] Mar, Controlled type 2 diabetes mellitus with out complication, without long-term current use of insulin E11.9 [place] [address] [address] Feb, Cervical radiculopathy M54.12 ; Acute cy stitis without hematuria N30.00 and History of urethral stricture Z87.448 [place] [address] [address] Feb, Controlled type 2 diabetes mellitus with out complication, without long-term current use of insulin E11.9 [place] [address] [place] [address] 05 Feb, 2017 [place] [address] [address] 15 Jan, 2017 Diabetes type 2, uncontrolled E11.65 [place] [address] [address] 15 Jan, 2017 [place] [address] [address] Jan, Controlled type 2 diabetes mellitus with out complication, without long-term current use of insulin E11.9 ; Chest wall pain R07.89 and Thoracic spine pain M54.6 [facility] [id number] [place] [address] Dec, [facility] [address] [address] Dec, [facility] [address] [address] Nov, [facility] [address] [address] Nov, [facility] [address] [facility] [id number] [place] [address] Nov, Trichomonas exposure Z20.2 [facility] [address] [address] Oct, [facility] [address] [address] Oct, [facility] [address] [address] Oct, [facility] [address] [address] Oct, [facility] [address] [address] Sep, [facility] [address] [address] Sep, [facility] [address] [address] Aug, [facility] [address] [address] Aug, [facility] [address] [address] Aug, [facility] [address] [address] Aug, [facility] [id number] [place] [address] July, Diabetes type 2, controlled E11.9 [facility] [id number] [place] [address] July, [facility] [id number] [place] [address] July, [facility] [id number] [place] [address] July, [facility] [id number] [place] [address] July, [facility] [id number] [place] [address] Jun, [facility] [id number] [place] [address] Jun, [facility] [id number] [place] [address] May, [facility] [id number] [place] [address] May, [facility] [id number] [place] [address] May, [facility] [id number] [place] [address] May, Controlled type 2 diabetes mellitus with out complication, without long-term current use of insulin E11.9 [facility] [id number] [place] [address] Apr, [facility] [id number] [place] [address] Apr, [facility] [id number] [place] [address] Mar, [facility] [id number] [place] [address] Mar, [facility] [id number] [place] [address] Feb, [facility] [address] [id number] [place] [address] Feb, [facility] [address] [id number] [place] [address] Jan, [facility] [id number] [place] [address] Jan, [facility] [id number] [place] [address] Jan, [facility] [address] [id number] [place] [address] Dec, [facility] [id number] [place] [address] Dec, [facility] [id number] [place] [address] Dec, [facility] [id number] [place] [address] Nov, Diabetes type 2, uncontrolled E11.65 [facility] [id number] [place] [address] 14 Nov, 2015 [facility] [id number] [place] [address] Nov, [facility] [id number] [place] [address] Oct, [facility] [id number] [place] [address] Oct, [facility] [id number] [place] [address] Sep, Controlled type 2 diabetes mellitus with out complication, without long-term current use of insulin E11.9 [facility] [id number] [place] [address] Sep, [facility] [id number] [place] [address] Sep, [facility] [id number] [place] [address] 07 Sep, 2015 [facility] [address] [address] 05 Sep, 2015 [facility] [address] [address] Aug, Diabetes type 2, controlled E11.9 ; Anxi ety F41.9 ; Carpal tunnel syndrome, left upper limb G56.02 and Carpal tunnel syndrome, right upper limb G56.01 [facility] [address] [address] Aug, Urethritis N34.2 [facility] [address] [address] Aug, [facility] [address] [address] July, Genital warts A63.0 [facility] [address] [address] July, [facility] [address] [address] July, Genital warts A63.0 [facility] [address] [address] July, Anxiety F41.9 [facility] [address] [address] Jun, Genital warts A63.0 [facility] [address] [address] 08 Jun, 2015 Anxiety F41.9 [facility] [address] [address] 15 May, 2015 Genital warts A63.0 and Diabetes type 2, uncontrolled E11.65 [facility] [address] [address] May, [facility] [address] [address] May, [facility] [id number] [place] [address] Apr, [facility] [address] [address] Apr, [facility] [id number] [place] [address] Apr, Diabetes type 2, controlled E11.9 [facility] [address] [address] Apr, Genital warts A63.0 [facility] [address] [address] Apr, [facility] [address] [address] Apr, Diabetes type 2, uncontrolled E11.65 and Genital warts A63.0 [facility] [address] [address] Apr, [facility] [address] [address] Mar, [facility] [address] [address] Mar, [facility] [address] [address] Mar, Family history of diabetes mellitus V18. 0 and Weight loss R63.4 [facility] [address] [address] Mar, Genital warts A63.0 and Family history o f diabetes mellitus V18.0 [facility] [address] [address] Feb, [facility] [address] [address] Jan, [facility] [address] [address] Jan, Perianal venereal warts A63.0 [place] [address] [address] Jan, Urethritis N34.2 and Anxiety F41.9 [place] [address] [address] Jan, [place] [address] [address] Jan, Urinary tract infection, site unspecifie d N39.0 [place] [address] [address] Jan, [place] [address] [address] Dec, [place] [address] [address] Dec, HPV (human papilloma virus) anogenital i nfection A63.0 ; Anxiety F41.9 and Gastroesophageal reflux disease without esophagitis K21.9 [place] [address] [address] Sep, Blood in stool 578.1 [place] [address] [address] Aug, Blood in stool 578.1 [place] [address] [address] Aug, Anxiety 300.00 and Blood in stool 578.1 [place] [address] [address] July, [place] [address] [address] July, Family history of diabetes mellitus V18. 0 [place] [address] [address] July, Family history of diabetes mellitus V18. 0 ; Family history of thyroid disease V18.19 ; Polyuria 788.42 ; Polydipsia 783.5 ; Alopecia 704.00 and Fatigue 780.79 [facility] [address] [id number] [place] [address] Jun, [facility] [address] [id number] [place] [address] Jun, [facility] [address] [id number] [place] [address] Mar, [facility] [id number] [place] [address] Mar, [facility] [address] [id number] [place] [address] Mar, [facility] [id number] [place] [address] Mar, [facility] [id number] [place] [address] Mar, [facility] [id number] [place] [address] Mar, [facility] [id number] [place] [address] Mar, [facility] [id number] [place] [address] Mar, [facility] [address] [id number] [place] [address] Mar, [facility] [id number] [place] [address] Mar, [facility] [address] [id number] [place] [address] Feb, [facility] [id number] [place] [address] Feb, [facility] [address] [id number] [place] [address] Jan, [facility] [id number] [place] [address] Jan, [facility] [id number] [place] [address] Jan, [facility] [address] [id number] [place] [address] Jan, [facility] [address] [facility] [id number] [place] [address] Dec, [facility] [address] [id number] [place] [address] Dec, [facility] [address] [facility] [id number] [place] [address] Nov, [facility] [address] [facility] [id number] [place] [address] Nov, [facility] [address] [id number] [place] [address] Oct, [facility] [address] [id number] [place] [address] Oct, [facility] [address] [id number] [place] [address] Oct, [facility] [address] [facility] [id number] [place] [address] Oct, [facility] [address] [id number] [place] [address] Oct, [facility] [address] [id number] [place] [address] Oct, [facility] [address] [id number] [place] [address] Oct, [facility] [address] [facility] [id number] [place] [address] Oct, [facility] [address] [id number] [place] [address] Sep, [facility] [address] [id number] [place] [address] Sep, [facility] [address] [id number] [place] [address] Sep, [facility] [address] [id number] [place] [address] Sep, [facility] [address] [id number] [place] [address] Aug, [facility] [address] [id number] [place] [address] Aug, [facility] [address] [id number] [place] [address] Aug, [facility] [address] [id number] [place] [address] Aug, [facility] [address] [id number] [place] [address] July, [facility] [address] [id number] [place] [address] July, [facility] [address] [id number] [place] [address] July, [facility] [address] [id number] [place] [address] July, [facility] [address] [id number] [place] [address] July, [facility] [address] [id number] [place] [address] July, [facility] [address] [id number] [place] [address] Jun, [facility] [address] [id number] [place] [address] 23 Jun, 2013 [facility] [address] [id number] [place] [address] 15 Jun, 2013 [facility] [address] [id number] [place] [address] 15 Jun, 2013 [facility] [address] [id number] [place] [address] 14 Jun, 2013 [facility] [address] [id number] [place] [address] 14 Jun, 2013 [facility] [address] [facility] [id number] [place] [address] 14 Jun, 2013 [facility] [address] [facility] [id number] [place] [address] 14 Jun, 2013 [facility] [address] [id number] [place] [address] 19 May, 2013 [facility] [address] [id number] [place] [address] 19 May, 2013 [facility] [address] [facility] [id number] [place] [address] 18 May, 2013 [facility] [address] [id number] [place] [address] Apr, [facility] [address] [id number] [place] [address] Apr, [facility] [address] [id number] [place] [address] Apr, [facility] [address] [id number] [place] [address] Apr, [facility] [address] [id number] [place] [address] Mar, [facility] [address] [id number] [place] [address] Mar, [facility] [address] [id number] [place] [address] Mar, [facility] [address] [id number] [place] [address] Mar, [facility] [address] [id number] [place] [address] Mar, [facility] [address] [id number] [place] [address] Mar, [facility] [address] [id number] [place] [address] Feb, [facility] [address] [id number] [place] [address] Feb, [facility] [address] [id number] [place] [address] Jan, [facility] [address] [id number] [place] [address] Jan, [facility] [address] [id number] [place] [address] Jan, [facility] [address] [id number] [place] [address] Jan, [facility] [address] [id number] [place] [address] Jan, [facility] [address] [id number] [place] [address] Jan, [facility] [address] [id number] [place] [address] Jan, [facility] [address] [id number] [place] [address] Dec, [facility] [address] [id number] [place] [address] Dec, [facility] [address] [id number] [place] [address] Nov, [facility] [address] [id number] [place] [address] Nov, [facility] [address] [id number] [place] [address] Nov, [facility] [address] [id number] [place] [address] Oct, [facility] [address] [id number] [place] [address] Oct, [facility] [address] [id number] [place] [address] Oct, [facility] [address] [id number] [place] [address] Oct, [facility] [address] [id number] [place] [address] Sep, [facility] [id number] [place] [address] Sep, [facility] [address] [id number] [place] [address] Aug, [facility] [id number] [place] [address] Aug, [facility] [id number] [place] [address] Aug, [facility] [id number] [place] [address] Aug, [facility] [id number] [place] [address] July, [facility] [id number] [place] [address] July, [facility] [id number] [place] [address] July, [facility] [id number] [place] [address] July, [facility] [id number] [place] [address] Jun, [facility] [id number] [place] [address] Jun, [facility] [id number] [place] [address] Feb, [facility] [id number] [place] [address] Feb, [facility] [id number] [place] [address] Mar, IMMUNIZATIONS No Known Immunizations SOCIAL HISTORY Never Assessed REASON FOR VISIT PLAN OF CARE VITAL SIGNS Height 68 in 2013-09-10 Weight 236.3 lbs 2013-09-10 Temperature 98.3 degrees Fahrenheit 2013-09-10 Heart Rate 84 bpm 2013-09-10 Respiratory Rate 18 2013-09-10 Blood pressure systolic 124 mmHg 2013-09-10 Blood pressure diastolic 90 mmHg 2013-09-10 MEDICATIONS Unknown Medications RESULTS No Results PROCEDURES [...]
--- OUTSIDE RECORDS SUMMARY | 2019-08-16 14:12 | XMS REPORT ---
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 Name Role Phone MIRELLA MARIA Unavailable PROBLEMS Type Condition ICD9-CM Code IMM67-VQ Code Onset Dates Condition S tatus SNOMED Code Problem Mood disorder F39 Active 704545 05 Problem Low back pain M54.5 Active 879017 005 Problem Acquired hypothyroidism E03.9 Active 003995517 Problem Diabetes type 2, uncontrolled E11.65 Active 730517289 Problem Diabetes type 2, controlled E11.9 Ac tive 10325367 Problem Controlled type 2 diabetes m ellitus without complication, without long- term current use of insulin E11.9 Active 480781717 Problem Uncontrolled type 2 diabetes mellitus with hyperglycemia E11.65 Active 696869986 Problem Hypertension, benign I10 Active 59511427 Problem Other chronic pain G89.29 Active 8 3608165 Problem Shoulder pain, right M25.511 Active 28814243 Problem Cervical radiculopathy M54.12 Active 94467918 Problem History of urethral stricture Z87.448 Active 374018982 Problem jail current use of insulin Z79.4 Active 165969255 Problem Type 2 diabetes mellitus without complications E11 .9 Active [id number] ALLERGIES No Information ENCOUNTERS Encounter Location Date Diagnosis [facility] [place] [id number] [place] [address] Feb, Controlled type 2 diabetes mellitus with out complication, without long-term current use of insulin E11.9 [facility] [place] [address] [address] Feb, Uncontrolled type 2 diabetes mellitus wi th hyperglycemia E11.65 ; Other chronic pain G89.29 ; Pain in right shoulder M25.511 and Thoracic spine pain M54.6 [facility] [place] [address] [address] Nov, [facility] [place] [id number] [place] [address] Aug, Diabetes type 2, uncontrolled E11.65 [facility] [place] [id number] [place] [address] July, [facility] [address] [id number] [place] [id number] July, Dental examination Z01.20 and Caries K02 .[address] [address] Jun, Controlled type 2 diabetes mellitus with out complication, without long-term current use of insulin E11.9 [place] [address] [address] May, Controlled type 2 diabetes mellitus with out complication, without long-term current use of insulin E11.9 [place] [address] [address] Apr, [facility] [place] [address] [address] Mar, Controlled type 2 diabetes mellitus with out complication, without long-term current use of insulin E11.9 [place] [id number] [place] [address] Jan, [place] [address] [address] Dec, Diabetes type 2, uncontrolled E11.65 [place] [address] [address] Dec, Type 2 diabetes mellitus without complic ations E11.9 ; long term care pharmacist current use of insulin Z79.4 and Cervicalgia M54.2 [place] [address] [address] Dec, Type 2 diabetes mellitus without complic ations E11.9 ; jail current use of insulin Z79.4 and Cervicalgia M54.2 [place] [address] [address] Dec, Controlled type 2 diabetes mellitus with out complication, without long-term current use of insulin E11.9 [place] [id number] [place] [address] Nov, [facility] [place] [address] [address] Oct, Diabetes type 2, uncontrolled E11.65 [place] [address] [address] Sep, Diabetes type 2, uncontrolled E11.65 [place] [address] [address] Jun, Controlled type 2 diabetes mellitus with out complication, without long-term current use of insulin E11.9 [place] [address] [address] May, [place] [address] [address] May, Radiculopathy of cervical region M54.12 [place] [address] [address] 14 May, 2017 Controlled type 2 diabetes mellitus with out complication, without long-term current use of insulin E11.9 [place] [address] [address] May, [place] [address] [address] May, Controlled type 2 diabetes mellitus with out complication, without long-term current use of insulin E11.9 [place] [address] [address] May, Controlled type 2 diabetes mellitus with out complication, without long-term current use of insulin E11.9 [place] [address] [address] 05 May, 2017 Controlled type 2 diabetes mellitus with out complication, without long-term current use of insulin E11.9 [place] [address] [address] 15 Apr, 2017 [place] [id number] [place] [address] Apr, Controlled type 2 diabetes mellitus with out complication, without long-term current use of insulin E11.9 [place] [id number] [place] [address] 07 Apr, 2017 [place] [address] [address] Apr, Controlled type 2 diabetes mellitus with out complication, without long-term current use of insulin E11.9 [place] [address] [address] Mar, [place] [address] [address] Mar, Radiculopathy of cervical region M54.12 [place] [address] [address] Mar, Controlled type 2 diabetes mellitus with out complication, without long-term current use of insulin E11.9 [place] [address] [address] Feb, Cervical radiculopathy M54.12 ; Acute cy stitis without hematuria N30.00 and History of urethral stricture Z87.448 [place] [address] [address] Feb, Controlled type 2 diabetes mellitus with out complication, without long-term current use of insulin E11.9 [place] [address] [place] [address] 05 Feb, 2017 [place] [address] [address] 15 Jan, 2017 Diabetes type 2, uncontrolled E11.65 [place] [address] [address] 15 Jan, 2017 [place] [address] [address] Jan, Controlled type 2 diabetes mellitus with out complication, without long-term current use of insulin E11.9 ; Chest wall pain R07.89 and Thoracic spine pain M54.6 [facility] [place] [id number] [place] [address] Dec, [facility] [place] [address] [address] Dec, [facility] [place] [address] [address] Nov, [facility] [place] [address] [address] Nov, [facility] [address] [facility] [id number] [place] [address] Nov, Trichomonas exposure Z20.2 [facility] [place] [address] [address] Oct, [facility] [place] [address] [address] Oct, [facility] [place] [address] [address] Oct, [facility] [place] [address] [address] Oct, [facility] [place] [address] [address] Sep, [facility] [place] [address] [address] Sep, [facility] [place] [address] [address] Aug, [facility] [place] [address] [address] Aug, [facility] [place] [address] [address] Aug, [facility] [place] [address] [address] Aug, [facility] [place] [id number] [place] [address] July, Diabetes type 2, controlled E11.9 [facility] [place] [id number] [place] [address] July, [facility] [place] [id number] [place] [address] July, [facility] [place] [id number] [place] [address] July, [facility] [place] [id number] [place] [address] July, [facility] [place] [id number] [place] [address] Jun, [facility] [place] [id number] [place] [address] Jun, [facility] [place] [id number] [place] [address] May, [facility] [place] [id number] [place] [address] May, [facility] [place] [id number] [place] [address] May, [facility] [place] [id number] [place] [address] May, Controlled type 2 diabetes mellitus with out complication, without long-term current use of insulin E11.9 [facility] [place] [id number] [place] [address] Apr, [facility] [place] [id number] [place] [address] Apr, [facility] [place] [id number] [place] [address] Mar, [facility] [place] [id number] [place] [address] Mar, [facility] [place] [id number] [place] [address] Feb, [facility] [place] [address] [id number] [place] [address] Feb, [facility] [place] [address] [id number] [place] [address] Jan, [facility] [place] [id number] [place] [address] Jan, [facility] [place] [id number] [place] [address] Jan, [facility] [place] [address] [id number] [place] [address] Dec, [facility] [place] [id number] [place] [address] Dec, [facility] [place] [id number] [place] [address] Dec, [facility] [place] [id number] [place] [address] Nov, Diabetes type 2, uncontrolled E11.65 [facility] [place] [id number] [place] [address] 14 Nov, 2015 [facility] [place] [id number] [place] [address] Nov, [facility] [place] [id number] [place] [address] Oct, [facility] [place] [id number] [place] [address] Oct, [facility] [place] [id number] [place] [address] Sep, Controlled type 2 diabetes mellitus with out complication, without long-term current use of insulin E11.9 [facility] [place] [id number] [place] [address] Sep, [facility] [place] [id number] [place] [address] Sep, [facility] [place] [id number] [place] [address] 07 Sep, 2015 [facility] [place] [address] [address] 05 Sep, 2015 [facility] [place] [address] [address] Aug, Diabetes type 2, controlled E11.9 ; Anxi ety F41.9 ; Carpal tunnel syndrome, left upper limb G56.02 and Carpal tunnel syndrome, right upper limb G56.01 [facility] [place] [address] [address] Aug, Urethritis N34.2 [facility] [place] [address] [address] Aug, [facility] [place] [address] [address] July, Genital warts A63.0 [facility] [place] [address] [address] July, [facility] [place] [address] [address] July, Genital warts A63.0 [facility] [place] [address] [address] July, Anxiety F41.9 [facility] [place] [address] [address] Jun, Genital warts A63.0 [facility] [place] [address] [address] 08 Jun, 2015 Anxiety F41.9 [facility] [place] [address] [address] 15 May, 2015 Genital warts A63.0 and Diabetes type 2, uncontrolled E11.65 [facility] [place] [address] [address] May, [facility] [place] [address] [address] May, [facility] [place] [id number] [place] [address] Apr, [facility] [place] [address] [address] Apr, [facility] [place] [id number] [place] [address] Apr, Diabetes type 2, controlled E11.9 [facility] [place] [address] [address] Apr, Genital warts A63.0 [facility] [place] [address] [address] Apr, [facility] [place] [address] [address] Apr, Diabetes type 2, uncontrolled E11.65 and Genital warts A63.0 [facility] [place] [address] [address] Apr, [facility] [place] [address] [address] Mar, [facility] [place] [address] [address] Mar, [facility] [place] [address] [address] Mar, Family history of diabetes mellitus V18. 0 and Weight loss R63.4 [facility] [place] [address] [address] Mar, Genital warts A63.0 and Family history o f diabetes mellitus V18.0 [facility] [place] [address] [address] Feb, [facility] [place] [address] [address] Jan, [facility] [place] [address] [address] Jan, Perianal venereal warts A63.0 [place] [address] [address] Jan, Urethritis N34.2 and Anxiety F41.9 [place] [address] [address] Jan, [place] [address] [address] Jan, Urinary tract infection, site unspecifie d N39.0 [place] [address] [address] Jan, [place] [address] [address] Dec, [place] [address] [address] Dec, HPV (human papilloma virus) anogenital i nfection A63.0 ; Anxiety F41.9 and Gastroesophageal reflux disease without esophagitis K21.9 [place] [address] [address] Sep, Blood in stool 578.1 [place] [address] [address] Aug, Blood in stool 578.1 [place] [address] [address] Aug, Anxiety 300.00 and Blood in stool 578.1 [place] [address] [address] July, [place] [address] [address] July, Family history of diabetes mellitus V18. 0 [place] [address] [address] July, Family history of diabetes mellitus V18. 0 ; Family history of thyroid disease V18.19 ; Polyuria 788.42 ; Polydipsia 783.5 ; Alopecia 704.00 and Fatigue 780.79 [facility] [id number] [place] [address] Jun, [facility] [id number] [place] [address] Jun, [facility] [id number] [place] [address] Mar, [facility] [id number] [place] [address] Mar, [facility] [id number] [place] [address] Mar, [facility] [id number] [place] [address] Mar, [facility] [id number] [place] [address] Mar, [facility] [id number] [place] [address] Mar, [facility] [id number] [place] [address] Mar, [facility] [id number] [place] [address] Mar, [facility] [id number] [place] [address] Mar, [facility] [id number] [place] [address] Mar, [facility] [id number] [place] [address] Feb, [facility] [id number] [place] [address] Feb, [facility] [id number] [place] [address] Jan, [facility] [id number] [place] [address] Jan, [facility] [id number] [place] [address] Jan, [facility] [address] [id number] [place] [address] Jan, [facility] [address] [facility] [id number] [place] [address] Dec, [facility] [id number] [place] [address] Dec, [facility] [address] [facility] [id number] [place] [address] Nov, [facility] [address] [facility] [id number] [place] [address] Nov, [facility] [id number] [place] [address] Oct, [facility] [id number] [place] [address] Oct, [facility] [id number] [place] [address] Oct, [facility] [address] [facility] [id number] [place] [address] Oct, [facility] [id number] [place] [address] Oct, [facility] [id number] [place] [address] Oct, [facility] [id number] [place] [address] Oct, [facility] [address] [facility] [id number] [place] [address] Oct, [facility] [id number] [place] [address] Sep, [facility] [id number] [place] [address] Sep, [facility] [id number] [place] [address] Sep, [facility] [id number] [place] [address] Sep, [facility] [id number] [place] [address] Aug, [facility] [id number] [place] [address] Aug, [facility] [id number] [place] [address] Aug, [facility] [id number] [place] [address] Aug, [facility] [id number] [place] [address] July, [facility] [id number] [place] [address] July, [facility] [id number] [place] [address] July, [facility] [id number] [place] [address] July, [facility] [id number] [place] [address] July, [facility] [id number] [place] [address] July, [facility] [id number] [place] [address] Jun, [facility] [id number] [place] [address] 23 Jun, 2013 [facility] [id number] [place] [address] 15 Jun, 2013 [facility] [id number] [place] [address] 15 Jun, 2013 [facility] [id number] [place] [address] 14 Jun, 2013 [facility] [id number] [place] [address] 14 Jun, 2013 [facility] [address] [facility] [id number] [place] [address] 14 Jun, 2013 [facility] [address] [facility] [id number] [place] [address] 14 Jun, 2013 [facility] [id number] [place] [address] 19 May, 2013 [facility] [id number] [place] [address] 19 May, 2013 [facility] [address] [facility] [id number] [place] [address] 18 May, 2013 [facility] [id number] [place] [address] Apr, [facility] [id number] [place] [address] Apr, [facility] [id number] [place] [address] Apr, [facility] [id number] [place] [address] Apr, [facility] [id number] [place] [address] Mar, [facility] [id number] [place] [address] Mar, [facility] [id number] [place] [address] Mar, [facility] [id number] [place] [address] Mar, [facility] [id number] [place] [address] Mar, [facility] [id number] [place] [address] Mar, [facility] [id number] [place] [address] Feb, [facility] [id number] [place] [address] Feb, [facility] [id number] [place] [address] Jan, [facility] [id number] [place] [address] Jan, [facility] [id number] [place] [address] Jan, [facility] [id number] [place] [address] Jan, [facility] [id number] [place] [address] Jan, [facility] [id number] [place] [address] Jan, [facility] [id number] [place] [address] Jan, [facility] [id number] [place] [address] Dec, [facility] [id number] [place] [address] Dec, [facility] [id number] [place] [address] Nov, [facility] [id number] [place] [address] Nov, [facility] [id number] [place] [address] Nov, [facility] [id number] [place] [address] Oct, [facility] [id number] [place] [address] Oct, [facility] [id number] [place] [address] Oct, [facility] [id number] [place] [address] Oct, [facility] [place] [id number] [place] [address] Sep, [facility] [place] [id number] [place] [address] Sep, [facility] [place] [id number] [place] [address] Aug, [facility], [place] [address] [id number] [place] [address] Aug, [facility], [place] [address] [id number] [place] [address] Aug, [facility], [place] [address] [id number] [place] [address] Aug, [facility], [place] [address] [id number] [place] [address] July, [facility], [place] [address] [id number] [place] [address] July, [facility], [place] [address] [id number] [place] [address] July, [facility], [place] [address] [id number] [place] [address] July, [facility], [place] [address] [id number] [place] [address] Jun, [facility], [place] [address] [id number] [place] [address] Jun, [facility], [place] [address] [id number] [place] [address] Feb, [facility], [place] [address] [id number] [place] [address] Feb, [facility], [place] [address] [id number] [place] [address] Mar, IMMUNIZATIONS No Known Immunizations SOCIAL HISTORY Never Assessed REASON FOR VISIT PLAN OF CARE VITAL SIGNS Height 68 in 2013-08-10 Weight 236 lbs 2013-08-10 Temperature 96.8 degrees Fahrenheit 2013-08-10 Heart Rate 88 bpm 2013-08-10 Respiratory Rate 20 2013-08-10 Blood pressure systolic 138 mmHg 2013-08-10 Blood pressure diastolic 78 mmHg 2013-08-10 MEDICATIONS Unknown Medications RESULTS No Results PROCEDURES [...]
--- OUTSIDE RECORDS SUMMARY | 2019-08-16 14:12 | XMS REPORT ---
Author Author Joseph MARIA Organization [facility] Address [address] [place] [address] Care Team Providers Care Corporate Logistics Manager Name Role Phone MIRELLA MARIA Unavailable PROBLEMS Type Condition ICD9-CM Code CKS93-HE Code Onset Dates Condition S tatus SNOMED Code Problem Mood disorder F39 Active 227191 05 Problem Low back pain M54.5 Active 184994 005 Problem Acquired hypothyroidism E03.9 Active 623224669 Problem Diabetes type 2, uncontrolled E11.65 Active 900540409 Problem Diabetes type 2, controlled E11.9 Ac tive 23381131 Problem Controlled type 2 diabetes m ellitus without complication, without long- term current use of insulin E11.9 Active 109843819 Problem Uncontrolled type 2 diabetes mellitus with hyperglycemia E11.65 Active 484264358 Problem Hypertension, benign I10 Active 39843153 Problem Other chronic pain G89.29 Active 8 4719509 Problem Shoulder pain, right M25.511 Active 36572489 Problem Cervical radiculopathy M54.12 Active 06978422 Problem History of urethral stricture Z87.448 Active 990820021 Problem halfway current use of insulin Z79.4 Active 912201277 Problem Type 2 diabetes mellitus without complications E11 .9 Active 706433020 ALLERGIES No Information ENCOUNTERS Encounter Location Date Diagnosis [facility] [id number] [place] [address] Feb, Controlled type 2 diabetes mellitus with out complication, without long-term current use of insulin E11.9 [facility] [address] [address] Feb, Uncontrolled type 2 diabetes mellitus wi th hyperglycemia E11.65 ; Other chronic pain G89.29 ; Pain in right shoulder M25.511 and Thoracic spine pain M54.6 [facility] [address] [address] Nov, [facility] [id number] [place] [address] Aug, Diabetes type 2, uncontrolled E11.65 [facility] [id number] [place] [address] July, [facility] [address] [id number] [place] [id number] July, Dental examination Z01.20 and Caries K02 .[address] [address] Jun, Controlled type 2 diabetes mellitus with out complication, without long-term current use of insulin E11.9 [address] [address] [address] May, Controlled type 2 diabetes mellitus with out complication, without long-term current use of insulin E11.9 [address] [place] [address] [address] Apr, [facility] [address] [address] Mar, Controlled type 2 diabetes mellitus with out complication, without long-term current use of insulin E11.9 [address] [id number] [place] [address] Jan, [address] [place] [address] [address] Dec, Diabetes type 2, uncontrolled E11.65 [address] [address] [address] Dec, Type 2 diabetes mellitus without complic ations E11.9 ; 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 and Cervicalgia M54.2 [address] [place] [address] [address] Dec, Type 2 diabetes mellitus without complic ations E11.9 ; halfway current use of insulin Z79.4 and Cervicalgia M54.2 [address] [place] [address] [address] Dec, Controlled type 2 diabetes mellitus with out complication, without long-term current use of insulin E11.9 [address] [id number] [place] [address] Nov, [facility] [address] [address] Oct, Diabetes type 2, uncontrolled E11.65 [address] [address] [address] Sep, Diabetes type 2, uncontrolled E11.65 [address] [address] [address] Jun, Controlled type 2 diabetes mellitus with out complication, without long-term current use of insulin E11.9 [address] [place] [address] May, [address] [address] [address] May, Radiculopathy of cervical region M54.12 [address] [place] [address] [address] 14 May, 2017 Controlled type 2 diabetes mellitus with out complication, without long-term current use of insulin E11.9 [address] [address] [address] May, [address] [place] [address] [address] May, Controlled type 2 diabetes mellitus with out complication, without long-term current use of insulin E11.9 [address] [address] [address] May, Controlled type 2 diabetes mellitus with out complication, without long-term current use of insulin E11.9 [address] [address] [address] 05 May, 2017 Controlled type 2 diabetes mellitus with out complication, without long-term current use of insulin E11.9 [address] [address] [address] 15 Apr, 2017 [address] [id number] [place] [address] Apr, Controlled type 2 diabetes mellitus with out complication, without long-term current use of insulin E11.9 [address] [place] [id number] [place] [address] 07 Apr, 2017 [address] [place] [address] Apr, Controlled type 2 diabetes mellitus with out complication, without long-term current use of insulin E11.9 [address] [place] [address] Mar, [address] [address] [address] Mar, Radiculopathy of cervical region M54.12 [address] [place] [address] Mar, Controlled type 2 diabetes mellitus with out complication, without long-term current use of insulin E11.9 [address] [address] [address] Feb, Cervical radiculopathy M54.12 ; Acute cy stitis without hematuria N30.00 and History of urethral stricture Z87.448 [address] [place] [address] Feb, Controlled type 2 diabetes mellitus with out complication, without long-term current use of insulin E11.9 [address] [place] [id number] [place] [address] 05 Feb, 2017 [address] [place] [address] 15 Jan, 2017 Diabetes type 2, uncontrolled E11.65 [address] [address] [address] 15 Jan, 2017 [address] [place] [address] Jan, Controlled type 2 diabetes mellitus with out complication, without long-term current use of insulin E11.9 ; Chest wall pain R07.89 and Thoracic spine pain M54.6 [facility] [id number] [place] [address] Dec, [facility] [address] [address] Dec, [facility] [address] [address] Nov, [facility] [address] [address] Nov, [facility] [address] [facility] [id number] [address] [place] [address] Nov, Trichomonas exposure Z20.2 [facility] [address] [address] Oct, [facility] [address] [address] Oct, [facility] [address] [address] Oct, [facility] [address] [address] Oct, [facility] [address] [address] Sep, [facility] [address] [address] Sep, [facility] [address] [address] Aug, [facility] [address] [address] Aug, [facility] [address] [address] Aug, [facility] [address] [address] Aug, [facility] [id number] [place] [address] July, Diabetes type 2, controlled E11.9 [facility] [id number] [place] [address] July, [facility] [id number] [place] [address] July, [facility] [id number] [place] [address] July, [facility] [id number] [place] [address] July, [facility] [id number] [place] [address] Jun, [facility] [id number] [place] [address] Jun, [facility] [id number] [place] [address] May, [facility] [id number] [place] [address] May, [facility] [id number] [place] [address] May, [facility] [id number] [place] [address] May, Controlled type 2 diabetes mellitus with out complication, without long-term current use of insulin E11.9 [facility] [id number] [place] [address] Apr, [facility] [id number] [place] [address] Apr, [facility] [id number] [place] [address] Mar, [facility] [id number] [place] [address] Mar, [facility] [id number] [place] [address] Feb, [facility] [address] [id number] [place] [address] Feb, [facility] [address] [id number] [place] [address] Jan, [facility] [id number] [place] [address] Jan, [facility] [id number] [place] [address] Jan, [facility] [address] [id number] [place] [address] Dec, [facility] [id number] [place] [address] Dec, [facility] [id number] [place] [address] Dec, [facility] [id number] [place] [address] Nov, Diabetes type 2, uncontrolled E11.65 [facility] [id number] [place] [address] 14 Nov, 2015 [facility] [id number] [place] [address] Nov, [facility] [id number] [place] [address] Oct, [facility] [id number] [place] [address] Oct, [facility] [id number] [place] [address] Sep, Controlled type 2 diabetes mellitus with out complication, without long-term current use of insulin E11.9 [facility] [id number] [place] [address] Sep, [facility] [id number] [place] [address] Sep, [facility] [id number] [place] [address] 07 Sep, 2015 [facility] [address] [address] 05 Sep, 2015 [facility] [address] [address] Aug, Diabetes type 2, controlled E11.9 ; Anxi ety F41.9 ; Carpal tunnel syndrome, left upper limb G56.02 and Carpal tunnel syndrome, right upper limb G56.01 [facility] [address] [address] Aug, Urethritis N34.2 [facility] [address] [address] Aug, [facility] [address] [address] July, Genital warts A63.0 [facility] [address] [address] July, [facility] [address] [address] July, Genital warts A63.0 [facility] [address] [address] July, Anxiety F41.9 [facility] [address] [address] Jun, Genital warts A63.0 [facility] [address] [address] 08 Jun, 2015 Anxiety F41.9 [facility] [address] [address] 15 May, 2015 Genital warts A63.0 and Diabetes type 2, uncontrolled E11.65 [facility] [address] [address] May, [facility] [address] [address] May, [facility] [id number] [place] [address] Apr, [facility] [address] [address] Apr, [facility] [id number] [place] [address] Apr, Diabetes type 2, controlled E11.9 [facility] [address] [address] Apr, Genital warts A63.0 [facility] [address] [address] Apr, [facility] [address] [address] Apr, Diabetes type 2, uncontrolled E11.65 and Genital warts A63.0 [facility] [address] [address] Apr, [facility] [address] [address] Mar, [facility] [address] [address] Mar, [facility] [address] [address] Mar, Family history of diabetes mellitus V18. 0 and Weight loss R63.4 [facility] [address] [address] Mar, Genital warts A63.0 and Family history o f diabetes mellitus V18.0 [facility] [address] [address] Feb, [facility] [address] [address] Jan, [facility] [address] [address] Jan, Perianal venereal warts A63.0 [address] [address] Jan, Urethritis N34.2 and Anxiety F41.9 [address] [place] [address] Jan, [address] [address] Jan, Urinary tract infection, site unspecifie d N39.0 [address] [address] Jan, [address] [place] [address] Dec, [address] [address] Dec, HPV (human papilloma virus) anogenital i nfection A63.0 ; Anxiety F41.9 and Gastroesophageal reflux disease without esophagitis K21.9 [address] [place] [address] Sep, Blood in stool 578.1 [address] [place] [address] Aug, Blood in stool 578.1 [address] [address] Aug, Anxiety 300.00 and Blood in stool 578.1 [address] [address] July, [address] [place] [address] July, Family history of diabetes mellitus V18. 0 [address] [address] July, Family history of diabetes mellitus V18. 0 ; Family history of thyroid disease V18.19 ; Polyuria 788.42 ; Polydipsia 783.5 ; Alopecia 704.00 and Fatigue 780.79 [facility] [address] [id number] [place] [address] Jun, [facility] [address] [id number] [place] [address] Jun, [facility] [address] [id number] [place] [address] Mar, [facility] [id number] [place] [address] Mar, [facility] [address] [id number] [place] [address] Mar, [facility] [id number] [place] [address] Mar, [facility] [id number] [place] [address] Mar, [facility] [id number] [place] [address] Mar, [facility] [id number] [place] [address] Mar, [facility] [id number] [place] [address] Mar, [facility] [address] [id number] [place] [address] Mar, [facility] [id number] [place] [address] Mar, [facility] [address] [id number] [place] [address] Feb, [facility] [id number] [place] [address] Feb, [facility] [address] [id number] [place] [address] Jan, [facility] [id number] [place] [address] Jan, [facility] [id number] [place] [address] Jan, [facility] [id number] [place] [address] Jan, [facility] [address] [facility] [id number] [place] [address] Dec, [facility] [address] [id number] [place] [address] Dec, [facility] [address] [facility] [id number] [place] [address] Nov, [facility] [address] [facility] [id number] [place] [address] Nov, [facility] [address] [id number] [place] [address] Oct, [facility] [address] [id number] [place] [address] Oct, [facility] [address] [id number] [place] [address] Oct, [facility] [address] [facility] [id number] [place] [address] Oct, [facility] [address] [id number] [place] [address] Oct, [facility] [address] [id number] [place] [address] Oct, [facility] [address] [id number] [place] [address] Oct, [facility] [address] [facility] [id number] [place] [address] Oct, [facility] [address] [id number] [place] [address] Sep, [facility] [address] [id number] [place] [address] Sep, [facility] [address] [id number] [place] [address] Sep, [facility] [address] [id number] [place] [address] Sep, [facility] [address] [id number] [place] [address] Aug, [facility] [address] [id number] [place] [address] Aug, [facility] [address] [id number] [place] [address] Aug, [facility] [address] [id number] [place] [address] Aug, [facility] [address] [id number] [place] [address] July, [facility] [address] [id number] [place] [address] July, [facility] [address] [id number] [place] [address] July, [facility] [address] [id number] [place] [address] July, [facility] [address] [id number] [place] [address] July, [facility] [address] [id number] [place] [address] July, [facility] [address] [id number] [place] [address] Jun, [facility] [address] [id number] [place] [address] 23 Jun, 2013 [facility] [address] [id number] [place] [address] 15 Jun, 2013 [facility] [address] [id number] [place] [address] 15 Jun, 2013 [facility] [address] [id number] [place] [address] 14 Jun, 2013 [facility] [address] [id number] [place] [address] 14 Jun, 2013 [facility] [address] [facility] [id number] [place] [address] 14 Jun, 2013 [facility] [address] [facility] [id number] [place] [address] 14 Jun, 2013 [facility] [address] [id number] [place] [address] 19 May, 2013 [facility] [address] [id number] [place] [address] 19 May, 2013 [facility] [address] [facility] [id number] [place] [address] 18 May, 2013 [facility] [address] [id number] [place] [address] Apr, [facility] [address] [id number] [place] [address] Apr, [facility] [address] [id number] [place] [address] Apr, [facility] [address] [id number] [place] [address] Apr, [facility] [address] [id number] [place] [address] Mar, [facility] [address] [id number] [place] [address] Mar, [facility] [address] [id number] [place] [address] Mar, [facility] [address] [id number] [place] [address] Mar, [facility] [address] [id number] [place] [address] Mar, [facility] [address] [id number] [place] [address] Mar, [facility] [address] [id number] [place] [address] Feb, [facility] [address] [id number] [place] [address] Feb, [facility] [address] [id number] [place] [address] Jan, [facility] [address] [id number] [place] [address] Jan, [facility] [address] [id number] [place] [address] Jan, [facility] [address] [id number] [place] [address] Jan, [facility] [address] [id number] [place] [address] Jan, [facility] [address] [id number] [place] [address] Jan, [facility] [address] [id number] [place] [address] Jan, [facility] [address] [id number] [place] [address] Dec, [facility] [address] [id number] [place] [address] Dec, [facility] [address] [id number] [place] [address] Nov, [facility] [address] [id number] [place] [address] Nov, [facility] [address] [id number] [place] [address] Nov, [facility] [address] [id number] [place] [address] Oct, [facility] [address] [id number] [place] [address] Oct, [facility] [address] [id number] [place] [address] Oct, [facility] [address] [id number] [place] [address] Oct, [facility] [id number] [place] [address] Sep, [facility] [id number] [place] [address] Sep, [facility] [id number] [place] [address] Aug, [facility] [id number] [place] [address] Aug, [facility] [id number] [place] [address] Aug, [facility] [id number] [place] [address] Aug, [facility] [id number] [place] [address] July, [facility] [id number] [place] [address] July, [facility] [id number] [place] [address] July, [facility] [facility] [id number] [place] [address] July, [facility] [id number] [place] [address] Jun, [facility] [id number] [place] [address] Jun, [facility] [id number] [place] [address] Feb, [facility] [id number] [place] [address] Feb, [facility] [id number] [place] [address] Mar, IMMUNIZATIONS No Known Immunizations SOCIAL HISTORY [...]
--- OUTSIDE RECORDS SUMMARY | 2019-08-16 14:12 | XMS REPORT ---
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 Name Role Phone MIRELLA MARIA Unavailable PROBLEMS Type Condition ICD9-CM Code [id number] Code Onset Dates Condition S tatus SNOMED Code Problem Mood disorder F39 Active 687139 05 Problem Low back pain M54.5 Active 862757 005 Problem Acquired hypothyroidism E03.9 Active 660026241 Problem Diabetes type 2, uncontrolled E11.65 Active 991342103 Problem Diabetes type 2, controlled E11.9 Ac tive 91752367 Problem Controlled type 2 diabetes m ellitus without complication, without long- term current use of insulin E11.9 Active 362869502 Problem Uncontrolled type 2 diabetes mellitus with hyperglycemia E11.65 Active 686044375 Problem Hypertension, benign I10 Active 86141314 Problem Other chronic pain G89.29 Active 8 8476782 Problem Shoulder pain, right M25.511 Active 43938078 Problem Cervical radiculopathy M54.12 Active 59395133 Problem History of urethral stricture Z87.448 Active 140739994 Problem long-term current use of insulin Z79.4 Active 952871369 Problem Type 2 diabetes mellitus without complications E11 .9 Active 962694517 ALLERGIES No Information ENCOUNTERS Encounter Location Date Diagnosis [facility] [id number] [place] [address] Feb, Controlled type 2 diabetes mellitus with out complication, without long-term current use of insulin E11.9 [facility] [address] [address] Feb, Uncontrolled type 2 diabetes mellitus wi th hyperglycemia E11.65 ; Other chronic pain G89.29 ; Pain in right shoulder M25.511 and Thoracic spine pain M54.6 [facility] [address] [address] Nov, [facility] [id number] [place] [address] Aug, Diabetes type 2, uncontrolled E11.65 [facility] [id number] [place] [address] July, [facility] [address] [id number] [place] [id number] July, Dental examination Z01.20 and Caries K02 .9 [address] [address] Jun, Controlled type 2 diabetes mellitus with out complication, without long-term current use of insulin E11.9 [address] [place] [address] May, Controlled type 2 diabetes mellitus with out complication, without long-term current use of insulin E11.9 [address] [place] [address] Apr, [facility] [address] [address] Mar, Controlled type 2 diabetes mellitus with out complication, without long-term current use of insulin E11.9 [address] [facility] [id number] [place] [address] Jan, [address] [address] Dec, Diabetes type 2, uncontrolled E11.65 [address] [address] [address] Dec, Type 2 diabetes mellitus without complic ations E11.9 ; 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 and Cervicalgia M54.2 [address] [address] Dec, Type 2 diabetes mellitus without complic ations E11.9 ; long-term current use of insulin Z79.4 and Cervicalgia M54.2 [address] [place] [address] Dec, Controlled type 2 diabetes mellitus with out complication, without long-term current use of insulin E11.9 [address] [facility] [id number] [place] [address] Nov, [facility] [address] [address] Oct, Diabetes type 2, uncontrolled E11.65 [address] [address] Sep, Diabetes type 2, uncontrolled E11.65 [address] [place] [address] [address] Jun, Controlled type 2 diabetes mellitus with out complication, without long-term current use of insulin E11.9 [address] [address] May, [address] [place] [address] May, Radiculopathy of cervical region M54.12 [address] [place] [address] [address] 14 May, 2017 Controlled type 2 diabetes mellitus with out complication, without long-term current use of insulin E11.9 [address] [place] [address] May, [address] [place] [address] [address] May, Controlled type 2 diabetes mellitus with out complication, without long-term current use of insulin E11.9 [address] [place] [address] [address] May, Controlled type 2 diabetes mellitus with out complication, without long-term current use of insulin E11.9 [address] [place] [address] [address] 05 May, 2017 Controlled type 2 diabetes mellitus with out complication, without long-term current use of insulin E11.9 [address] [place] [address] 15 Apr, 2017 [address] [facility] [id number] [place] [address] Apr, Controlled type 2 diabetes mellitus with out complication, without long-term current use of insulin E11.9 [address] [place] [id number] [place] [address] 07 Apr, 2017 [address] [place] [address] Apr, Controlled type 2 diabetes mellitus with out complication, without long-term current use of insulin E11.9 [address] [address] Mar, [address] [place] [address] Mar, Radiculopathy of cervical region M54.12 [address] [place] [address] Mar, Controlled type 2 diabetes mellitus with out complication, without long-term current use of insulin E11.9 [address] [place] [address] [address] Feb, Cervical radiculopathy M54.12 ; Acute cy stitis without hematuria N30.00 and History of urethral stricture Z87.448 [address] [place] [address] Feb, Controlled type 2 diabetes mellitus with out complication, without long-term current use of insulin E11.9 [address] [facility] [id number] [place] [address] 05 Feb, 2017 [address] [place] [address] 15 Jan, 2017 Diabetes type 2, uncontrolled E11.65 [address] [place] [address] 15 Jan, 2017 [address] [place] [address] Jan, Controlled type 2 diabetes mellitus with out complication, without long-term current use of insulin E11.9 ; Chest wall pain R07.89 and Thoracic spine pain M54.6 [facility] [id number] [place] [address] Dec, [facility] [address] [address] Dec, [facility] [address] [address] Nov, [facility] [address] [address] Nov, [facility] [address] [facility] [id number] [place] [address] Nov, Trichomonas exposure Z20.2 [facility] [address] [address] Oct, [facility] [address] [address] Oct, [facility] [address] [address] Oct, [facility] [address] [address] Oct, [facility] [address] [address] Sep, [facility] [address] [address] Sep, [facility] [address] [address] Aug, [facility] [address] [address] Aug, [facility] [address] [address] Aug, [facility] [address] [address] Aug, [facility] [id number] [place] [address] July, Diabetes type 2, controlled E11.9 [facility] [id number] [place] [address] July, [facility] [id number] [place] [address] July, [facility] [id number] [place] [address] July, [facility] [id number] [place] [address] July, [facility] [id number] [place] [address] Jun, [facility] [id number] [place] [address] Jun, [facility] [id number] [place] [address] May, [facility] [id number] [place] [address] May, [facility] [id number] [place] [address] May, [facility] [id number] [place] [address] May, Controlled type 2 diabetes mellitus with out complication, without long-term current use of insulin E11.9 [facility] [id number] [place] [address] Apr, [facility] [id number] [place] [address] Apr, [facility] [id number] [place] [address] Mar, [facility] [id number] [place] [address] Mar, [facility] [id number] [place] [address] Feb, [facility] [address] [id number] [place] [address] Feb, [facility] [address] [id number] [place] [address] Jan, [facility] [id number] [place] [address] Jan, [facility] [id number] [place] [address] Jan, [facility] [address] [id number] [place] [address] Dec, [facility] [id number] [place] [address] Dec, [facility] [id number] [place] [address] Dec, [facility] [id number] [place] [address] Nov, Diabetes type 2, uncontrolled E11.65 [facility] [id number] [place] [address] 14 Nov, 2015 [facility] [id number] [place] [address] Nov, [facility] [id number] [place] [address] Oct, [facility] [id number] [place] [address] Oct, [facility] [id number] [place] [address] Sep, Controlled type 2 diabetes mellitus with out complication, without long-term current use of insulin E11.9 [facility] [id number] [place] [address] Sep, [facility] [id number] [place] [address] Sep, [facility] [id number] [place] [address] 07 Sep, 2015 [facility] [address] [address] 05 Sep, 2015 [facility] [address] [address] Aug, Diabetes type 2, controlled E11.9 ; Anxi ety F41.9 ; Carpal tunnel syndrome, left upper limb G56.02 and Carpal tunnel syndrome, right upper limb G56.01 [facility] [address] [address] Aug, Urethritis N34.2 [facility] [address] [address] Aug, [facility] [address] [address] July, Genital warts A63.0 [facility] [address] [address] July, [facility] [address] [address] July, Genital warts A63.0 [facility] [address] [address] July, Anxiety F41.9 [facility] [address] [address] Jun, Genital warts A63.0 [facility] [address] [address] 08 Jun, 2015 Anxiety F41.9 [facility] [address] [address] 15 May, 2015 Genital warts A63.0 and Diabetes type 2, uncontrolled E11.65 [facility] [address] [address] May, [facility] [address] [address] May, [facility] [id number] [place] [address] Apr, [facility] [address] [address] Apr, [facility] [id number] [place] [address] Apr, Diabetes type 2, controlled E11.9 [facility] [address] [address] Apr, Genital warts A63.0 [facility] [address] [address] Apr, [facility] [address] [address] Apr, Diabetes type 2, uncontrolled E11.65 and Genital warts A63.0 [facility] [address] [address] Apr, [facility] [address] [address] Mar, [facility] [address] [address] Mar, [facility] [address] [address] Mar, Family history of diabetes mellitus V18. 0 and Weight loss R63.4 [facility] [address] [address] Mar, Genital warts A63.0 and Family history o f diabetes mellitus V18.0 [facility] [address] [address] Feb, [facility] [address] [address] Jan, [facility] [address] [address] Jan, Perianal venereal warts A63.0 [address] [address] Jan, Urethritis N34.2 and Anxiety F41.9 [address] [address] Jan, [address] [address] Jan, Urinary tract infection, site unspecifie d N39.0 [address] [address] Jan, [address] [place] [address] Dec, [address] [address] Dec, HPV (human papilloma virus) anogenital i nfection A63.0 ; Anxiety F41.9 and Gastroesophageal reflux disease without esophagitis K21.9 [address] [address] Sep, Blood in stool 578.1 [address] [address] Aug, Blood in stool 578.1 [address] [address] Aug, Anxiety 300.00 and Blood in stool 578.1 [address] [address] July, [address] [address] July, Family history of diabetes mellitus V18. 0 [address] [address] July, Family history of diabetes mellitus V18. 0 ; Family history of thyroid disease V18.19 ; Polyuria 788.42 ; Polydipsia 783.5 ; Alopecia 704.00 and Fatigue 780.79 [facility] [address] [id number] [place] [address] Jun, [facility] [address] [id number] [place] [address] Jun, [facility] [address] [id number] [place] [address] Mar, [facility] [id number] [place] [address] Mar, [facility] [address] [id number] [place] [address] Mar, [facility] [id number] [place] [address] Mar, [facility] [id number] [place] [address] Mar, [facility] [id number] [place] [address] Mar, [facility] [id number] [place] [address] Mar, [facility] [id number] [place] [address] Mar, [facility] [address] [id number] [place] [address] Mar, [facility] [id number] [place] [address] Mar, [facility] [address] [id number] [place] [address] Feb, [facility] [id number] [place] [address] Feb, [facility] [address] [id number] [place] [address] Jan, [facility] [id number] [place] [address] Jan, [facility] [id number] [place] [address] Jan, [facility] [address] [id number] [place] [address] Jan, [facility] [address] [facility] [id number] [place] [address] Dec, [facility] [address] [id number] [place] [address] Dec, [facility] [address] [facility] [id number] [place] [address] Nov, [facility] [address] [facility] [id number] [place] [address] Nov, [facility] [address] [id number] [place] [address] Oct, [facility] [address] [id number] [place] [address] Oct, [facility] [address] [id number] [place] [address] Oct, [facility] [address] [facility] [id number] [place] [address] Oct, [facility] [address] [id number] [place] [address] Oct, [facility] [address] [id number] [place] [address] Oct, [facility] [address] [id number] [place] [address] Oct, [facility] [address] [facility] [id number] [place] [address] Oct, [facility] [address] [id number] [place] [address] Sep, [facility] [address] [id number] [place] [address] Sep, [facility] [address] [id number] [place] [address] Sep, [facility] [address] [id number] [place] [address] Sep, [facility] [address] [id number] [place] [address] Aug, [facility] [address] [id number] [place] [address] Aug, [facility] [address] [id number] [place] [address] Aug, [facility] [address] [id number] [place] [address] Aug, [facility] [address] [id number] [place] [address] July, [facility] [address] [id number] [place] [address] July, [facility] [address] [id number] [place] [address] July, [facility] [address] [id number] [place] [address] July, [facility] [address] [id number] [place] [address] July, [facility] [address] [id number] [place] [address] July, [facility] [address] [id number] [place] [address] Jun, [facility] [address] [id number] [place] [address] 23 Jun, 2013 [facility] [address] [id number] [place] [address] 15 Jun, 2013 [facility] [address] [id number] [place] [address] 15 Jun, 2013 [facility] [address] [id number] [place] [address] 14 Jun, 2013 [facility] [address] [id number] [place] [address] 14 Jun, 2013 [facility] [address] [facility] [id number] [place] [address] 14 Jun, 2013 [facility] [address] [facility] [id number] [place] [address] 14 Jun, 2013 [facility] [address] [id number] [place] [address] 19 May, 2013 [facility] [address] [id number] [place] [address] 19 May, 2013 [facility] [address] [facility] [id number] [place] [address] 18 May, 2013 [facility] [address] [id number] [place] [address] Apr, [facility] [address] [id number] [place] [address] Apr, [facility] [address] [id number] [place] [address] Apr, [facility] [address] [id number] [place] [address] Apr, [facility] [address] [id number] [place] [address] Mar, [facility] [address] [id number] [place] [address] Mar, [facility] [address] [id number] [place] [address] Mar, [facility] [address] [id number] [place] [address] Mar, [facility] [address] [id number] [place] [address] Mar, [facility] [address] [id number] [place] [address] Mar, [facility] [address] [id number] [place] [address] Feb, [facility] [address] [id number] [place] [address] Feb, [facility] [address] [id number] [place] [address] Jan, [facility] [address] [id number] [place] [address] Jan, [facility] [address] [id number] [place] [address] Jan, [facility] [address] [id number] [place] [address] Jan, [facility] [address] [id number] [place] [address] Jan, [facility] [address] [id number] [place] [address] Jan, [facility] [address] [id number] [place] [address] Jan, [facility] [address] [id number] [place] [address] Dec, [facility] [address] [id number] [place] [address] Dec, [facility] [address] [id number] [place] [address] Nov, [facility] [address] [id number] [place] [address] Nov, [facility] [address] [id number] [place] [address] Nov, [facility] [address] [id number] [place] [address] Oct, [facility] [address] [id number] [place] [address] Oct, [facility] [address] [id number] [place] [address] Oct, [facility] [address] [id number] [place] [address] Oct, [facility] [id number] [place] [address] Sep, [facility] [id number] [place] [address] Sep, [facility] [id number] [place] [address] Aug, [facility] [id number] [place] [address] Aug, [facility] [id number] [place] [address] Aug, [facility] [id number] [place] [address] Aug, [facility] [id number] [place] [address] July, [facility] [id number] [place] [address] July, [facility] [id number] [place] [address] July, [facility] [id number] [place] [address] July, [facility] [id number] [place] [address] Jun, [facility] [id number] [place] [address] Jun, [facility] [id number] [place] [address] Feb, [facility] [id number] [place] [address] Feb, [facility] [id number] [place] [address] Mar, IMMUNIZATIONS No Known Immunizations SOCIAL HISTORY [...]
--- OUTSIDE RECORDS SUMMARY | 2019-08-16 14:13 | XMS REPORT ---
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 Name Role Phone MIRELLA MARIA Unavailable PROBLEMS Type Condition ICD9-CM Code [id number] Code Onset Dates Condition S tatus SNOMED Code Problem Mood disorder F39 Active 438165 05 Problem Low back pain M54.5 Active 243349 005 Problem Acquired hypothyroidism E03.9 Active 975585574 Problem Diabetes type 2, uncontrolled E11.65 Active 541221354 Problem Diabetes type 2, controlled E11.9 Ac tive 65649273 Problem Controlled type 2 diabetes m ellitus without complication, without long- term current use of insulin E11.9 Active 430051658 Problem Uncontrolled type 2 diabetes mellitus with hyperglycemia E11.65 Active 154059404 Problem Hypertension, benign I10 Active 03629180 Problem Other chronic pain G89.29 Active 8 0112010 Problem Shoulder pain, right M25.511 Active 23996115 Problem Cervical radiculopathy M54.12 Active 05037822 Problem History of urethral stricture Z87.448 Active 288159811 Problem 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 Z79.4 Active 948596793 Problem Type 2 diabetes mellitus without complications E11 .9 Active 291619105 ALLERGIES No Information ENCOUNTERS Encounter Location Date Diagnosis [facility] [id number] [place] [address] Feb, Controlled type 2 diabetes mellitus with out complication, without long-term current use of insulin E11.9 [facility] [address] [address] Feb, Uncontrolled type 2 diabetes mellitus wi th hyperglycemia E11.65 ; Other chronic pain G89.29 ; Pain in right shoulder M25.511 and Thoracic spine pain M54.6 [facility] [address] [address] Nov, [facility] [id number] [place] [address] Aug, Diabetes type 2, uncontrolled E11.65 [facility] [id number] [place] [address] July, [facility] [address] [id number] [place] [id number] July, Dental examination Z01.20 and Caries K02 .[address] [address] Jun, Controlled type 2 diabetes mellitus with out complication, without long-term current use of insulin E11.9 [address] [address] [address] May, Controlled type 2 diabetes mellitus with out complication, without long-term current use of insulin E11.9 [address] [place] [address] [address] Apr, [facility] [address] [address] Mar, Controlled type 2 diabetes mellitus with out complication, without long-term current use of insulin E11.9 [place] [id number] [place] [address] Jan, [address] [address] [address] Dec, Diabetes type 2, uncontrolled E11.65 [place] [address] [address] Dec, Type 2 diabetes mellitus without complic ations E11.9 ; 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 and Cervicalgia M54.2 [place] [address] [address] Dec, Type 2 diabetes mellitus without complic ations E11.9 ; 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 Z79.4 and Cervicalgia M54.2 [place] [address] [address] Dec, Controlled type 2 diabetes mellitus with out complication, without long-term current use of insulin E11.9 [place] [id number] [place] [address] Nov, [facility] [address] [address] Oct, Diabetes type 2, uncontrolled E11.65 [place] [address] [address] Sep, Diabetes type 2, uncontrolled E11.65 [place] [address] [address] Jun, Controlled type 2 diabetes mellitus with out complication, without long-term current use of insulin E11.9 [place] [address] [address] May, [place] [address] [address] May, Radiculopathy of cervical region M54.12 [place] [address] [address] 14 May, 2017 Controlled type 2 diabetes mellitus with out complication, without long-term current use of insulin E11.9 [place] [address] [address] May, [address] [address] [address] May, Controlled type 2 diabetes mellitus with out complication, without long-term current use of insulin E11.9 [address] [address] [address] May, Controlled type 2 diabetes mellitus with out complication, without long-term current use of insulin E11.9 [address] [address] [address] 05 May, 2017 Controlled type 2 diabetes mellitus with out complication, without long-term current use of insulin E11.9 [place] [address] [address] 15 Apr, 2017 [address] [id number] [place] [address] Apr, Controlled type 2 diabetes mellitus with out complication, without long-term current use of insulin E11.9 [address] [place] [id number] [place] [address] 07 Apr, 2017 [address] [address] [address] Apr, Controlled type 2 diabetes mellitus with out complication, without long-term current use of insulin E11.9 [address] [place] [address] [address] Mar, [address] [address] [address] Mar, Radiculopathy of cervical region M54.12 [address] [place] [address] [address] Mar, Controlled type 2 diabetes mellitus with out complication, without long-term current use of insulin E11.9 [place] [address] [address] Feb, Cervical radiculopathy M54.12 ; Acute cy stitis without hematuria N30.00 and History of urethral stricture Z87.448 [address] [address] [address] Feb, Controlled type 2 diabetes mellitus with out complication, without long-term current use of insulin E11.9 [place] [id number] [place] [address] 05 Feb, 2017 [address] [address] [address] 15 Jan, 2017 Diabetes type 2, uncontrolled E11.65 [address] [address] [address] 15 Jan, 2017 [address] [address] [address] Jan, Controlled type 2 diabetes mellitus with out complication, without long-term current use of insulin E11.9 ; Chest wall pain R07.89 and Thoracic spine pain M54.6 [facility] [id number] [place] [address] Dec, [facility] [address] [address] Dec, [facility] [address] [address] Nov, [facility] [address] [address] Nov, [facility] [address] [facility] [id number] [place] [address] Nov, Trichomonas exposure Z20.2 [facility] [address] [address] Oct, [facility] [address] [address] Oct, [facility] [address] [address] Oct, [facility] [address] [address] Oct, [facility] [address] [address] Sep, [facility] [address] [address] Sep, [facility] [address] [address] Aug, [facility] [address] [address] Aug, [facility] [address] [address] Aug, [facility] [address] [address] Aug, [facility] [id number] [place] [address] July, Diabetes type 2, controlled E11.9 [facility] [id number] [place] [address] July, [facility] [id number] [place] [address] July, [facility] [id number] [place] [address] July, [facility] [id number] [place] [address] July, [facility] [id number] [place] [address] Jun, [facility] [id number] [place] [address] Jun, [facility] [id number] [place] [address] May, [facility] [id number] [place] [address] May, [facility] [id number] [place] [address] May, [facility] [id number] [place] [address] May, Controlled type 2 diabetes mellitus with out complication, without long-term current use of insulin E11.9 [facility] [id number] [place] [address] Apr, [facility] [id number] [place] [address] Apr, [facility] [id number] [place] [address] Mar, [facility] [id number] [place] [address] Mar, [facility] [id number] [place] [address] Feb, [facility] [address] [id number] [place] [address] Feb, [facility] [address] [id number] [place] [address] Jan, [facility] [id number] [place] [address] Jan, [facility] [id number] [place] [address] Jan, [facility] [address] [id number] [place] [address] Dec, [facility] [id number] [place] [address] Dec, [facility] [id number] [place] [address] Dec, [facility] [id number] [place] [address] Nov, Diabetes type 2, uncontrolled E11.65 [facility] [id number] [place] [address] 14 Nov, 2015 [facility] [id number] [place] [address] Nov, [facility] [id number] [place] [address] Oct, [facility] [id number] [place] [address] Oct, [facility] [id number] [place] [address] Sep, Controlled type 2 diabetes mellitus with out complication, without long-term current use of insulin E11.9 [facility] [id number] [place] [address] Sep, [facility] [id number] [place] [address] Sep, [facility] [id number] [place] [address] 07 Sep, 2015 [facility] [address] [address] 05 Sep, 2015 [facility] [address] [address] Aug, Diabetes type 2, controlled E11.9 ; Anxi ety F41.9 ; Carpal tunnel syndrome, left upper limb G56.02 and Carpal tunnel syndrome, right upper limb G56.01 [facility] [address] [address] Aug, Urethritis N34.2 [facility] [address] [address] Aug, [facility] [address] [address] July, Genital warts A63.0 [facility] [address] [address] July, [facility] [address] [address] July, Genital warts A63.0 [facility] [address] [address] July, Anxiety F41.9 [facility] [address] [address] Jun, Genital warts A63.0 [facility] [address] [address] 08 Jun, 2015 Anxiety F41.9 [facility] [address] [address] 15 May, 2015 Genital warts A63.0 and Diabetes type 2, uncontrolled E11.65 [facility] [address] [address] May, [facility] [address] [address] May, [facility] [id number] [place] [address] Apr, [facility] [address] [address] Apr, [facility] [id number] [place] [address] Apr, Diabetes type 2, controlled E11.9 [facility] [address] [address] Apr, Genital warts A63.0 [facility] [address] [address] Apr, [facility] [address] [address] Apr, Diabetes type 2, uncontrolled E11.65 and Genital warts A63.0 [facility] [address] [address] Apr, [facility] [address] [address] Mar, [facility] [address] [address] Mar, [facility] [address] [address] Mar, Family history of diabetes mellitus V18. 0 and Weight loss R63.4 [facility] [address] [address] Mar, Genital warts A63.0 and Family history o f diabetes mellitus V18.0 [facility] [address] [address] Feb, [facility] [address] [address] Jan, [facility] [address] [address] Jan, Perianal venereal warts A63.0 [address] [place] [address] Jan, Urethritis N34.2 and Anxiety F41.9 [address] [place] [address] [address] Jan, [address] [place] [address] Jan, Urinary tract infection, site unspecifie d N39.0 [address] [place] [address] Jan, [address] [place] [address] Dec, [address] [address] [address] Dec, HPV (human papilloma virus) anogenital i nfection A63.0 ; Anxiety F41.9 and Gastroesophageal reflux disease without esophagitis K21.9 [address] [place] [address] Sep, Blood in stool 578.1 [address] [place] [address] [address] Aug, Blood in stool 578.1 [address] [place] [address] Aug, Anxiety 300.00 and Blood in stool 578.1 [address] [place] [address] July, [address] [place] [address] July, Family history of diabetes mellitus V18. 0 [address] [place] [address] [address] July, Family history of diabetes mellitus V18. 0 ; Family history of thyroid disease V18.19 ; Polyuria 788.42 ; Polydipsia 783.5 ; Alopecia 704.00 and Fatigue 780.79 [facility] [address] [id number] [place] [address] Jun, [facility] [address] [id number] [place] [address] Jun, [facility] [address] [id number] [place] [address] Mar, [facility] [id number] [place] [address] Mar, [facility] [address] [id number] [place] [address] Mar, [facility] [id number] [place] [address] Mar, [facility] [id number] [place] [address] Mar, [facility] [id number] [place] [address] Mar, [facility] [id number] [place] [address] Mar, [facility] [id number] [place] [address] Mar, [facility] [address] [id number] [place] [address] Mar, [facility] [id number] [place] [address] Mar, [facility] [address] [id number] [place] [address] Feb, [facility] [id number] [place] [address] Feb, [facility] [address] [id number] [place] [address] Jan, [facility] [id number] [place] [address] Jan, [facility] [id number] [place] [address] Jan, [facility] [address] [id number] [place] [address] Jan, [facility] [address] [facility] [id number] [place] [address] Dec, [facility] [address] [id number] [place] [address] Dec, [facility] [address] [facility] [id number] [place] [address] Nov, [facility] [address] [facility] [id number] [place] [address] Nov, [facility] [address] [id number] [place] [address] Oct, [facility] [address] [id number] [place] [address] Oct, [facility] [address] [id number] [place] [address] Oct, [facility] [address] [facility] [id number] [place] [address] Oct, [facility] [address] [id number] [place] [address] Oct, [facility] [address] [id number] [place] [address] Oct, [facility] [address] [id number] [place] [address] Oct, [facility] [address] [facility] [id number] [place] [address] Oct, [facility] [address] [id number] [place] [address] Sep, [facility] [address] [id number] [place] [address] Sep, [facility] [address] [id number] [place] [address] Sep, [facility] [address] [id number] [place] [address] Sep, [facility] [address] [id number] [place] [address] Aug, [facility] [address] [id number] [place] [address] Aug, [facility] [address] [id number] [place] [address] Aug, [facility] [address] [id number] [place] [address] Aug, [facility] [address] [id number] [place] [address] July, [facility] [address] [id number] [place] [address] July, [facility] [address] [id number] [place] [address] July, [facility] [address] [id number] [place] [address] July, [facility] [address] [id number] [place] [address] July, [facility] [address] [id number] [place] [address] July, [facility] [address] [id number] [place] [address] Jun, [facility] [address] [id number] [place] [address] 23 Jun, 2013 [facility] [address] [id number] [place] [address] 15 Jun, 2013 [facility] [address] [id number] [place] [address] 15 Jun, 2013 [facility] [address] [id number] [place] [address] 14 Jun, 2013 [facility] [address] [id number] [place] [address] 14 Jun, 2013 [facility] [address] [facility] [id number] [place] [address] 14 Jun, 2013 [facility] [address] [facility] [id number] [place] [address] 14 Jun, 2013 [facility] [address] [id number] [place] [address] 19 May, 2013 [facility] [address] [id number] [place] [address] 19 May, 2013 [facility] [address] [facility] [id number] [place] [address] 18 May, 2013 [facility] [address] [id number] [place] [address] Apr, [facility] [address] [id number] [place] [address] Apr, [facility] [address] [id number] [place] [address] Apr, [facility] [address] [id number] [place] [address] Apr, [facility] [address] [id number] [place] [address] Mar, [facility] [address] [id number] [place] [address] Mar, [facility] [address] [id number] [place] [address] Mar, [facility] [address] [id number] [place] [address] Mar, [facility] [address] [id number] [place] [address] Mar, [facility] [address] [id number] [place] [address] Mar, [facility] [address] [id number] [place] [address] Feb, [facility] [address] [id number] [place] [address] Feb, [facility] [address] [id number] [place] [address] Jan, [facility] [address] [id number] [place] [address] Jan, [facility] [address] [id number] [place] [address] Jan, [facility] [address] [id number] [place] [address] Jan, [facility] [address] [id number] [place] [address] Jan, [facility] [address] [id number] [place] [address] Jan, [facility] [address] [id number] [place] [address] Jan, [facility] [address] [id number] [place] [address] Dec, [facility] [address] [id number] [place] [address] Dec, [facility] [address] [id number] [place] [address] Nov, [facility] [address] [id number] [place] [address] Nov, [facility] [address] [id number] [place] [address] Nov, [facility] [address] [id number] [place] [address] Oct, [facility] [address] [id number] [place] [address] Oct, [facility] [address] [id number] [place] [address] Oct, [facility] [address] [id number] [place] [address] Oct, [facility] [id number] [place] [address] Sep, [facility] [id number] [place] [address] Sep, [facility] [id number] [place] [address] Aug, [facility] [id number] [place] [address] Aug, [facility] [id number] [place] [address] Aug, [facility] [id number] [place] [address] Aug, [facility] [id number] [place] [address] July, [facility] [id number] [place] [address] July, [facility] [id number] [place] [address] July, [facility] [id number] [place] [address] July, [facility] [id number] [place] [address] Jun, [facility] [id number] [place] [address] Jun, [facility] [id number] [place] [place] [address] Feb, [facility] [address] [id number] [place] [address] Feb, [facility] [address] [id number] [place] [address] Mar, IMMUNIZATIONS No Known Immunizations SOCIAL HISTORY [...]
--- OUTSIDE RECORDS SUMMARY | 2019-08-16 14:13 | XMS REPORT ---
Author Author Joseph MARIA Organization [facility] Address [address] [place] [address] Care Team Providers Care Advanced Practice Nurse Psychotherapist Name Role Phone MIRELLA MARIA Unavailable PROBLEMS Type Condition ICD9-CM Code VAY64-PM Code Onset Dates Condition S tatus SNOMED Code Problem Shoulder pain, right M25.511 Active 94642104 Problem Hypertension, benign I10 Active 93162413 Problem Diabetes type 2, uncontrolled E11.65 Active 460788944 Problem Mood disorder F39 Active 458009 05 Problem Type 2 diabetes mellitus without complications E11 .9 Active 201544204 Problem Low back pain M54.5 Active 742156 005 Problem half-way current use of insulin Z79.4 Active 887120042 Problem Acquired hypothyroidism E03.9 Active 920172265 Problem Diabetes type 2, controlled E11.9 Ac tive 63965171 Problem Controlled type 2 diabetes m ellitus without complication, without long- term current use of insulin E11.9 Active 302388517 Problem History of urethral stricture Z87.448 Active 425369924 Problem Cervical radiculopathy M54.12 Active [id number] ALLERGIES No Information ENCOUNTERS Encounter Location Date Diagnosis [facility] [address] [facility] [id number] [address] [place] [address] Nov, [facility] [id number] [place] [address] Aug, Diabetes type 2, uncontrolle d E11.65 [facility] [address] [facility] [id number] [address] [place] [address] July, [facility] [address] [facility] [id number] [address] [place] [id number] July, Dental examination Z01.20 an d Caries K02.9 [facility] [address] [place] [id number] [address] [place] [address] Jun, Controlled type 2 diabetes m ellitus without complication, without long-term current use of insulin E11.9 [facility] [address] [facility] [id number] [address] [place] [phone] May, Controlled type 2 diabetes m ellitus without complication, without long-term current use of insulin E11.9 [facility] [address] [facility] [id number] [address] [place] [address] Apr, [facility] [address] [facility] [id number] [address] [place] [address] Mar, Controlled type 2 diabetes m ellitus without complication, without long-term current use of insulin E11.9 [place] [address] [facility] [id number] [address] [place] [address] Jan, [place] [address] [place] [id number] [address] [place] [address] Dec, Diabetes type 2, uncontrolle d E11.65 [facility] [address] [facility] [id number] [address] [place] [address] Dec, Type 2 diabetes mellitus wit hout complications E11.9 ; half-way current use of insulin Z79.4 and Cervicalgia M54.2 [place] [address] [facility] [id number] [address] [place] [address] Dec, Type 2 diabetes mellitus wit hout complications E11.9 ; half-way current use of insulin Z79.4 and Cervicalgia M54.2 [place] [address] [facility] [id number] [address] [place] [address] Dec, Controlled type 2 diabetes m ellitus without complication, without long-term current use of insulin E11.9 [facility] [address] [facility] [id number] [address] [place] [phone] Nov, [facility] [address] [facility] [id number] [address] [place] [address] Oct, Diabetes type 2, uncontrolle d E11.65 [place] [address] [facility] [id number] [address] [place] [address] Sep, Diabetes type 2, uncontrolle d E11.65 [place] [address] [facility] [id number] [address] [place] [address] Jun, Controlled type 2 diabetes m ellitus without complication, without long-term current use of insulin E11.9 [place] [address] [facility] [id number] [address] [place] [address] May, [place] [address] [facility] [id number] [address] [place] [address] May, Radiculopathy of cervical re gion M54.12 [place] [address] [facility] [id number] [address] [place] [address] May, Controlled type 2 diabetes m ellitus without complication, without long-term current use of insulin E11.9 [place] [address] [facility] [id number] [address] [place] [address] May, [place] [address] [id number] [address] [place] [phone] May, Controlled type 2 diabetes m ellitus without complication, without long-term current use of insulin E11.9 [place] [address] [facility] [id number] [address] [place] [address] May, Controlled type 2 diabetes m ellitus without complication, without long-term current use of insulin E11.9 [place] [address] [facility] [id number] [address] [place] [address] May, Controlled type 2 diabetes m ellitus without complication, without long-term current use of insulin E11.9 [place] [address] [facility] [id number] [address] [place] [address] Apr, [place] [address] [facility] [id number] [address] [place] [address] Apr, Controlled type 2 diabetes m ellitus without complication, without long-term current use of insulin E11.9 [place] [address] [id number] [address] [place] [address] 07 Apr, 2017 [place] [address] [facility] [id number] [address] [place] [address] Apr, Controlled type 2 diabetes m ellitus without complication, without long-term current use of insulin E11.9 [place] [address] [place] [id number] [address] [place] [address] Mar, [place] [address] [facility] [id number] [address] [place] [address] Mar, Radiculopathy of cervical re gion M54.12 [place] [address] [facility] [id number] [address] [place] [address] Mar, Controlled type 2 diabetes m ellitus without complication, without long-term current use of insulin E11.9 [place] [address] [place] [id number] [address] [place] [address] Feb, Cervical radiculopathy M54.1 2 ; Acute cystitis without hematuria N30.00 and History of urethral stricture Z87.448 [place] [address] [place] [id number] [address] [place] [address] Feb, Controlled type 2 diabetes m ellitus without complication, without long-term current use of insulin E11.9 [place] [address] [place] [id number] [address] [place] [address] Feb, [place] [address] [facility] [id number] [address] [place] [address] Jan, Diabetes type 2, uncontrolle d E11.65 [place] [address] [facility] [id number] [address] [place] [address] 15 Jan, 2017 [place] [address] [place] [id number] [place] [phone] 13 Jan, 2017 Controlled type 2 diabetes m ellitus without complication, without long-term current use of insulin E11.9 ; Chest wall pain R07.89 and Thoracic spine pain M54.6 [facility] [address] [id number] [address] [place] [address], [place] [id number] Dec, [facility] [address] [id number] [address] [place] [address], [place] [id number] Dec, [facility] [address] [id number] [address] [place] [address], [place] [id number] Nov, [facility] [address] [id number] [address] [place] [address], [place] [id number] Nov, [facility] [address] [id number] [address] [place] [address], [place] [id number] Nov, Trichomonas exposure Z20.2 [facility] [address] [id number] [address] [place] [address] Oct, [facility] [address] [id number] [address] [place] [address] Oct, [facility] [address] [id number] [address] [place] [address] Oct, [facility] [address] [id number] [address] [place] [address] Oct, [facility] [address] [id number] [address] [place] [address] Sep, [facility] [address] [id number] [address] [place] [phone] Sep, [facility] [address] [id number] [address] [place] [phone] Aug, [facility] [address] [id number] [address] [place] [address], [place] [id number] Aug, [facility] [address] [id number] [address] [place] [address] Aug, [facility] [address] [id number] [address] [place] [address] Aug, [facility] [address] [id number] [address] [place] [phone] 11 Jul, 2016 Diabetes type 2, controlled E11.9 [facility] [address] [id number] [address] [place] [address], [place] [id number] 11 Jul, 2016 [facility] [address] [id number] [address] [place] [address], [place] [id number] July, [facility] [address] [id number] [address] [place] [address], [place] [id number] July, [facility] [address] [id number] [address] [place] [address], [place] [id number] July, [facility] [address] [id number] [address] [place] [address], [place] [id number] Jun, [facility] [address] [id number] [address] [place] [phone] Jun, [facility] [address] [id number] [address] [place] [address] May, [facility] [address] [id number] [address] [place] [address] May, [facility] [address] [id number] [address] [place] [address] May, [facility] [address] [id number] [address] [place] [phone] May, Controlled type 2 diabetes m ellitus without complication, without long-term current use of insulin E11.9 [facility] [address] [id number] [address] [place] [address] 15 Apr, 2016 [facility] [address] [id number] [address] [place] [address] Apr, [facility] [address] [id number] [address] [place] [phone] Mar, [facility] [address] [id number] [address] [place] [address] Mar, [facility] [address] [id number] [address] [place] [address] Feb, [facility] [address] [id number] [address] [place] [phone] Feb, [facility] [address] [id number] [address] [place] [address] Jan, [facility] [address] [id number] [address] [place] [address] Jan, [facility] [address] [id number] [address] [place] [address] Jan, [facility] [address] [id number] [address] [place] [address] Dec, [facility] [address] [id number] [address] [place] [address] Dec, [facility] [address] [id number] [address] [place] [address] Dec, [facility] [address] [id number] [address] [place] [address] Nov, Diabetes type 2, uncontrolle d E11.65 [facility] [address] [id number] [address] [place] [address] Nov, [facility] [address] [id number] [address] [place] [address] Nov, [facility] [address] [id number] [address] [place] [address] Oct, [facility] [address] [id number] [address] [place] [address] Oct, [facility] [address] [id number] [address] [place] [address] Sep, Controlled type 2 diabetes m ellitus without complication, without long-term current use of insulin E11.9 [facility] [address] [id number] [address] [place] [address] Sep, [facility] [address] [id number] [address] [place] [address] Sep, [facility] [address] [id number] [address] [place] [address] Sep, [facility] [address] [id number] [address] [place] [address] Sep, [facility] [address] [id number] [address] [place] [address] Aug, Diabetes type 2, controlled E11.9 ; Anxiety F41.9 ; Carpal tunnel syndrome, left upper limb G56.02 and Carpal tunnel syndrome, right upper limb G56.01 [facility] [address] [id number] [address] [place] [address] Aug, Urethritis N34.2 [facility] [address] [id number] [address] [place] [address] Aug, [facility] [address] [id number] [address] [place] [address] July, Genital warts A63.0 [facility] [address] [id number] [address] [place] [address] July, [facility] [address] [id number] [address] [place] [address] July, Genital warts A63.0 [facility] [address] [id number] [address] [place] [address] July, Anxiety F41.9 [facility] [address] [id number] [address] [place] [address] Jun, Genital warts A63.0 [facility] [address] [id number] [address] [place] [address] 08 Jun, 2015 Anxiety F41.9 [facility] [address] [id number] [address] [place] [address] May, Genital warts A63.0 and Diab etes type 2, uncontrolled E11.65 [facility] [address] [id number] [address] [place] [address] May, [facility] [address] [id number] [address] [place] [address] May, [facility] [address] [id number] [address] [place] [address] Apr, [facility] [address] [id number] [address] [place] [address] Apr, [facility] [address] [facility] [id number] [address] [place] [address] Apr, Diabetes type 2, controlled E11.9 [facility] [address] [id number] [address] [place] [address] Apr, Genital warts A63.0 [facility] [address] [id number] [address] [place] [address] Apr, [facility] [address] [id number] [address] [place] [address] Apr, Diabetes type 2, uncontrolle d E11.65 and Genital warts A63.0 [facility] [address] [id number] [address] [place] [address] Apr, [facility] [address] [id number] [address] [place] [address] Mar, [facility] [address] [id number] [address] [place] [address] Mar, [facility] [address] [facility] [id number] [address] [place] [address] Mar, Family history of diabetes m ellitus V18.0 and Weight loss R63.4 [facility] [address] [facility] [id number] [address] [place] [address] Mar, Genital warts A63.0 and Fami ly history of diabetes mellitus V18.0 [facility] [address] [facility] [id number] [address] [place] [address] Feb, [facility] [address] [facility] [id number] [address] [place] [address] Jan, [facility] [address] [facility] [id number] [address] [place] [address] Jan, Perianal venereal warts A63. 0 [facility] [address] [facility] [id number] [address] [place] [address] Jan, Urethritis N34.2 and Anxiety F41.9 [place] [address] [facility] [id number] [address] [place] [address] Jan, [place] [address] [place] [id number] [place] [address] Jan, Urinary tract infection, sit e unspecified N39.0 [facility] [address] [facility] [id number] [address] [place] [address] Jan, [facility] [address] [facility] [id number] [address] [place] [address] Dec, [facility] [address] [facility] [id number] [address] [place] [address] Dec, HPV (human papilloma virus) anogenital infection A63.0 ; Anxiety F41.9 and Gastroesophageal reflux disease without esophagitis K21.9 [facility] [address] [facility] [id number] [address] [place] [address] Sep, Blood in stool 578.1 [facility] [address] [facility] [id number] [address] [place] [address] Aug, Blood in stool 578.1 [facility] [address] [facility] [id number] [address] [place] [address] Aug, Anxiety 300.00 and Blood in stool 578.1 [facility] [address] [facility] [id number] [address] [place] [address] July, [facility] [address] [id number] [address] [place] [address] July, Family history of diabetes joseph livingstonitus V18.0 [facility] [address] [facility] [id number] [address] [place] [address] July, Family history of diabetes m ellitus V18.0 ; Family history of thyroid disease V18.19 ; Polyuria 788.42 ; Polydipsia 783.5 ; Alopecia 704.00 and Fatigue 780.79 [facility] [address] [id number] [address] [place] [address] Jun, [facility] [address] [id number] [address] [place] [address] Jun, [facility] [address] [id number] [address] [place] [address] Mar, [facility] [address] [id number] [address] [place] [address] Mar, [facility] [address] [id number] [address] [place] [address] Mar, [facility] [address] [facility] [id number] [address] [place] [address] Mar, [facility] [address] [id number] [address] [place] [address] Mar, [facility] [address] [id number] [address] [place] [address] Mar, [facility] [address] [id number] [address] [place] [address] Mar, [facility] [address] [id number] [address] [place] [address] Mar, [facility] [address] [id number] [address] [place] [phone] Mar, [facility] [address] [id number] [address] [place] [address], [place] [id number] Mar, [facility] [address] [id number] [address] [place] [address], [place] [id number] Feb, [facility] [address] [id number] [address] [place] [address], [place] [id number] Feb, [facility] [address] [id number] [address] [place] [address], [place] [id number] Jan, [facility] [address] [id number] [address] [place] [address], [place] [id number] Jan, [facility] [address] [id number] [address] [place] [address], [place] [id number] Jan, [facility] [address] [id number] [address] [place] [address], [place] [id number] Jan, [facility] [address] [id number] [address] [place] [address], [place] [id number] Dec, [facility] [address] [id number] [address] [place] [address], [place] [id number] Dec, [facility] [address] [id number] [address] [place] [address], [place] [id number] Nov, [facility] [address] [id number] [address] [place] [address], [place] [id number] Nov, [facility] [address] [id number] [address] [place] [address], [place] [id number] Oct, [facility] [address] [id number] [address] [place] [address], [place] [id number] Oct, [facility] [address] [id number] [address] [place] [address], [place] [id number] Oct, [facility] [address] [id number] [address] [place] [address], [place] [id number] Oct, [facility] [address] [id number] [address] [place] [address], [place] [id number] Oct, [facility] [address] [id number] [facility] [place] [id number] Oct, [facility] [address] [id number] [address] [place] [address], [place] [id number] Oct, [facility] [address] [id number] [address] [place] [address], [place] [id number] Oct, [facility] [address] [id number] [address] [place] [address], [place] [id number] Sep, [facility] [address] [id number] [address] [place] [address], [place] [id number] Sep, [facility] [address] [id number] [address] [place] [address], [place] [id number] Sep, [facility] [address] [id number] [address] [place] [address], [place] [id number] Sep, [facility] [address] [id number] [address] [place] [address], [place] [id number] Aug, [facility] [address] [id number] [address] [place] [address], [place] [id number] Aug, [facility] [address] [id number] [address] [place] [address], [place] [id number] Aug, [facility] [address] [id number] [address] [place] [address], [place] [id number] Aug, [facility] [address] [id number] [address] [place] [address], [place] [id number] July, [facility] [address] [id number] [address] [place] [address], [place] [id number] July, [facility] [address] [id number] [address] [place] [address], [place] [id number] July, [facility] [address] [id number] [address] [place] [address], [place] [id number] July, [facility] [address] [id number] [address] [place] [address], [place] [id number] July, [facility] [address] [id number] [address] [place] [address], [place] [id number] July, [facility] [address] [id number] [address] [place] [address], [place] [id number] 23 Jun, 2013 [facility] [address] [id number] [address] [place] [address], [place] [id number] 23 Jun, 2013 [facility] [address] [id number] [address] [place] [address], [place] [id number] 15 Jun, 2013 [facility] [address] [id number] [address] [place] [address], [place] [id number] 15 Jun, 2013 [facility] [address] [id number] [address] [place] [address], [place] [id number] 14 Jun, 2013 [facility] [address] [id number] [address] [place] [address], [place] [id number] Jun, [facility] [address] [id number] [address] [place] [address], [place] [id number] 14 Jun, 2013 [facility] [address] [id number] [address] [place] [address], [place] [id number] Jun, [facility] [address] [id number] [address] [place] [address], [place] [id number] May, [facility] [address] [id number] [address] [place] [address], [place] [id number] May, [facility] [address] [id number] [address] [place] [address], [place] [id number] 18 May, 2013 [facility] [address] [id number] [address] [place] [address], [place] [id number] Apr, [facility] [address] [id number] [address] [place] [address], [place] [id number] Apr, [facility] [address] [id number] [address] [place] [address], [place] [id number] Apr, [facility] [address] [id number] [address] [place] [address], [place] [id number] Apr, [facility] [address] [id number] [address] [place] [address], [place] [id number] Mar, [facility] [address] [id number] [address] [place] [address], [place] [id number] Mar, [facility] [address] [id number] [address] [place] [address], [place] [id number] Mar, [facility] [address] [id number] [address] [place] [address], [place] [id number] Mar, [facility] [address] [id number] [address] [place] [address], [place] [id number] Mar, [facility] [address] [id number] [address] [place] [address], [place] [id number] Mar, [facility] [address] [id number] [address] [place] [address], [place] [id number] Feb, [facility] [address] [id number] [address] [place] [address], [place] [id number] Feb, [facility] [address] [id number] [address] [place] [address], [place] [id number] Jan, [facility] [address] [id number] [address] [place] [address], [place] [id number] Jan, [facility] [address] [id number] [address] [place] [address], [place] [id number] Jan, [facility] [address] [id number] [address] [place] [address], [place] [id number] Jan, [facility] [address] [id number] [address] [place] [address], [place] [id number] Jan, [facility] [address] [id number] [address] [place] [address], [place] [id number] Jan, [facility] [address] [id number] [address] [place] [address], [place] [id number] Jan, [facility] [address] [id number] [address] [place] [address], [place] [id number] Dec, [facility] [address] [id number] [address] [place] [address], [place] [id number] Dec, [facility] [address] [id number] [address] [place] [address], [place] [id number] Nov, [facility] [address] [id number] [address] [place] [address], [place] [id number] Nov, [facility] [address] [id number] [address] [place] [address], [place] [id number] Nov, [facility] [address] [id number] [address] [place] [address], [place] [id number] Oct, [facility] [address] [id number] [address] [place] [address], [place] [id number] Oct, [facility] [address] [id number] [address] [place] [address], [place] [id number] Oct, [facility] [address] [id number] [address] [place] [address], [place] [id number] Oct, [facility] [address] [id number] [address] [place] [address], [place] [id number] Sep, [facility] [address] [id number] [address] [place] [address], [place] [id number] Sep, [facility] [address] [id number] [address] [place] [address], [place] [id number] Aug, [facility] [address] [id number] [address] [place] [address], [place] [id number] Aug, [facility] [address] [id number] [address] [place] [address], [place] [id number] Aug, [facility] [address] [id number] [address] [place] [address], [place] [id number] Aug, [facility] [address] [id number] [address] [place] [id number] July, [facility] [address] [id number] [address] [place] [id number] July, [facility] [address] [id number] [address] [place] [id number] July, [facility] [address] [id number] [address] [place] [id number] July, [facility] [address] [id number] [address] [place] [id number] Jun, [facility] [address] [id number] [address] [place] [id number] Jun, [facility] [address] [id number] [address] [place] [id number] Feb, [facility] [address] [id number] [address] [place] [id number] Feb, [facility] [address] [id number] [address] [place] [id number] Mar, IMMUNIZATIONS No Known Immunizations SOCIAL HISTORY [...]
--- OUTSIDE RECORDS SUMMARY | 2019-08-16 14:13 | XMS REPORT ---
Author Author Joseph MARIA Organization [facility] Address [address] [place] [address] Care Team Providers Care Revenue Cycle Specialist Name Role Phone MIRELLA MARIA Unavailable PROBLEMS Type Condition ICD9-CM Code DFR54-NC Code Onset Dates Condition S tatus SNOMED Code Problem Shoulder pain, right M25.511 Active 22411868 Problem Mood disorder F39 Active 371618 05 Problem Hypertension, benign I10 Active 77051886 Problem Diabetes type 2, uncontrolled E11.65 Active 275036023 Problem Diabetes type 2, controlled E11.9 Ac tive 94794846 Problem Controlled type 2 diabetes m ellitus without complication, without long- term current use of insulin E11.9 Active 727427862 Problem Uncontrolled type 2 diabetes mellitus with hyperglycemia E11.65 Active 696760835 Problem Low back pain M54.5 Active 507075 005 Problem Other chronic pain G89.29 Active 8 0448352 Problem Acquired hypothyroidism E03.9 Active 902438693 Problem History of urethral stricture Z87.448 Active 007171501 Problem Cervical radiculopathy M54.12 Active 14035827 Problem jail current use of insulin Z79.4 Active 074091010 Problem Type 2 diabetes mellitus without complications E11 .9 Active [id number] ALLERGIES No Information ENCOUNTERS Encounter Location Date Diagnosis [facility] [id number] [place] [address] Feb, Controlled type 2 diabetes mellitus with out complication, without long-term current use of insulin E11.9 [facility] [address] [address] Feb, Uncontrolled type 2 diabetes mellitus wi th hyperglycemia E11.65 ; Other chronic pain G89.29 ; Pain in right shoulder M25.511 and Thoracic spine pain M54.6 [facility] [address] [address] Nov, [facility] [id number] [place] [address] Aug, Diabetes type 2, uncontrolled E11.65 [facility] [id number] [place] [address] July, [facility] [address] [id number] [place] [id number] July, Dental examination Z01.20 and Caries K02 .9 [address] [address] Jun, Controlled type 2 diabetes mellitus with out complication, without long-term current use of insulin E11.9 [place] [address] [address] May, Controlled type 2 diabetes mellitus with out complication, without long-term current use of insulin E11.9 [place] [address] [address] Apr, [facility] [address] [address] Mar, Controlled type 2 diabetes mellitus with out complication, without long-term current use of insulin E11.9 [place] [id number] [place] [address] Jan, [place] [address] [address] Dec, Diabetes type 2, uncontrolled E11.65 [place] [address] [address] Dec, Type 2 diabetes mellitus without complic ations E11.9 ; watermaster current use of insulin Z79.4 and Cervicalgia M54.2 [place] [address] [address] Dec, Type 2 diabetes mellitus without complic ations E11.9 ; jail current use of insulin Z79.4 and Cervicalgia M54.2 [place] [address] [address] Dec, Controlled type 2 diabetes mellitus with out complication, without long-term current use of insulin E11.9 [place] [id number] [place] [address] Nov, [facility] [address] [address] Oct, Diabetes type 2, uncontrolled E11.65 [place] [address] [address] Sep, Diabetes type 2, uncontrolled E11.65 [place] [address] [address] Jun, Controlled type 2 diabetes mellitus with out complication, without long-term current use of insulin E11.9 [place] [address] [address] May, [place] [address] [address] May, Radiculopathy of cervical region M54.12 [place] [address] [address] 14 May, 2017 Controlled type 2 diabetes mellitus with out complication, without long-term current use of insulin E11.9 [place] [address] [address] May, [place] [address] [address] May, Controlled type 2 diabetes mellitus with out complication, without long-term current use of insulin E11.9 [place] [address] [address] May, Controlled type 2 diabetes mellitus with out complication, without long-term current use of insulin E11.9 [place] [address] [address] 05 May, 2017 Controlled type 2 diabetes mellitus with out complication, without long-term current use of insulin E11.9 [place] [address] [address] 15 Apr, 2017 [place] [id number] [place] [address] Apr, Controlled type 2 diabetes mellitus with out complication, without long-term current use of insulin E11.9 [place] [id number] [place] [address] 07 Apr, 2017 [place] [address] [address] Apr, Controlled type 2 diabetes mellitus with out complication, without long-term current use of insulin E11.9 [place] [address] [address] Mar, [place] [address] [address] Mar, Radiculopathy of cervical region M54.12 [place] [address] [address] Mar, Controlled type 2 diabetes mellitus with out complication, without long-term current use of insulin E11.9 [place] [address] [address] Feb, Cervical radiculopathy M54.12 ; Acute cy stitis without hematuria N30.00 and History of urethral stricture Z87.448 [address] [address] [address] Feb, Controlled type 2 diabetes mellitus with out complication, without long-term current use of insulin E11.9 [place] [id number] [place] [address] 05 Feb, 2017 [address] [address] [address] 15 Jan, 2017 Diabetes type 2, uncontrolled E11.65 [place] [address] [address] 15 Jan, 2017 [place] [address] [address] Jan, Controlled type 2 diabetes mellitus with out complication, without long-term current use of insulin E11.9 ; Chest wall pain R07.89 and Thoracic spine pain M54.6 [facility] [id number] [place] [address] Dec, [facility] [address] [address] Dec, [facility] [address] [address] Nov, [facility] [address] [address] Nov, [facility] [address] [facility] [address] [id number] [place] [address] Nov, Trichomonas exposure Z20.2 [facility] [address] [address] Oct, [facility] [address] [address] Oct, [facility] [address] [address] Oct, [facility] [address] [address] Oct, [facility] [address] [address] Sep, [facility] [address] [address] Sep, [facility] [address] [address] Aug, [facility] [address] [address] Aug, [facility] [address] [address] Aug, [facility] [address] [address] Aug, [facility] [id number] [place] [address] July, Diabetes type 2, controlled E11.9 [facility] [id number] [place] [address] July, [facility] [id number] [place] [address] July, [facility] [id number] [place] [address] July, [facility] [id number] [place] [address] July, [facility] [id number] [place] [address] Jun, [facility] [id number] [place] [address] Jun, [facility] [id number] [place] [address] May, [facility] [id number] [place] [address] May, [facility] [id number] [place] [address] May, [facility] [id number] [place] [address] May, Controlled type 2 diabetes mellitus with out complication, without long-term current use of insulin E11.9 [facility] [id number] [place] [address] Apr, [facility] [id number] [place] [address] Apr, [facility] [id number] [place] [address] Mar, [facility] [id number] [place] [address] Mar, [facility] [id number] [place] [address] Feb, [facility] [address] [id number] [place] [address] Feb, [facility] [address] [id number] [place] [address] Jan, [facility] [id number] [place] [address] Jan, [facility] [id number] [place] [address] Jan, [facility] [address] [id number] [place] [address] Dec, [facility] [id number] [place] [address] Dec, [facility] [id number] [place] [address] Dec, [facility] [id number] [place] [address] Nov, Diabetes type 2, uncontrolled E11.65 [facility] [id number] [place] [address] 14 Nov, 2015 [facility] [id number] [place] [address] Nov, [facility] [id number] [place] [address] Oct, [facility] [id number] [place] [address] Oct, [facility] [id number] [place] [address] Sep, Controlled type 2 diabetes mellitus with out complication, without long-term current use of insulin E11.9 [facility] [id number] [place] [address] Sep, [facility] [id number] [place] [address] Sep, [facility] [id number] [place] [address] 07 Sep, 2015 [facility] [address] [address] 05 Sep, 2015 [facility] [address] [address] Aug, Diabetes type 2, controlled E11.9 ; Anxi ety F41.9 ; Carpal tunnel syndrome, left upper limb G56.02 and Carpal tunnel syndrome, right upper limb G56.01 [facility] [address] [address] Aug, Urethritis N34.2 [facility] [address] [address] Aug, [facility] [address] [address] July, Genital warts A63.0 [facility] [address] [address] July, [facility] [address] [address] July, Genital warts A63.0 [facility] [address] [address] July, Anxiety F41.9 [facility] [address] [address] Jun, Genital warts A63.0 [facility] [address] [address] 08 Jun, 2015 Anxiety F41.9 [facility] [address] [address] 15 May, 2015 Genital warts A63.0 and Diabetes type 2, uncontrolled E11.65 [facility] [address] [address] May, [facility] [address] [address] May, [facility] [id number] [place] [address] Apr, [facility] [address] [address] Apr, [facility] [id number] [place] [address] Apr, Diabetes type 2, controlled E11.9 [facility] [address] [address] Apr, Genital warts A63.0 [facility] [address] [address] Apr, [facility] [address] [address] Apr, Diabetes type 2, uncontrolled E11.65 and Genital warts A63.0 [facility] [address] [address] Apr, [facility] [address] [address] Mar, [facility] [address] [address] Mar, [facility] [address] [address] Mar, Family history of diabetes mellitus V18. 0 and Weight loss R63.4 [facility] [address] [address] Mar, Genital warts A63.0 and Family history o f diabetes mellitus V18.0 [facility] [address] [address] Feb, [facility] [address] [address] Jan, [facility] [address] [address] Jan, Perianal venereal warts A63.0 [address] [address] [address] Jan, Urethritis N34.2 and Anxiety F41.9 [address] [address] [address] Jan, [address] [address] [address] Jan, Urinary tract infection, site unspecifie d N39.0 [address] [address] [address] Jan, [address] [address] [address] Dec, [address] [address] Dec, HPV (human papilloma virus) anogenital i nfection A63.0 ; Anxiety F41.9 and Gastroesophageal reflux disease without esophagitis K21.9 [address] [address] [address] Sep, Blood in stool 578.1 [address] [address] [address] Aug, Blood in stool 578.1 [address] [address] Aug, Anxiety 300.00 and Blood in stool 578.1 [address] [address] [address] July, [address] [address] [address] July, Family history of diabetes mellitus V18. 0 [address] [address] [address] July, Family history of diabetes mellitus V18. 0 ; Family history of thyroid disease V18.19 ; Polyuria 788.42 ; Polydipsia 783.5 ; Alopecia 704.00 and Fatigue 780.79 [facility] [address] [id number] [place] [address] Jun, [facility] [address] [id number] [place] [address] Jun, [facility] [address] [id number] [place] [address] Mar, [facility] [id number] [place] [address] Mar, [facility] [address] [id number] [place] [address] Mar, [facility] [id number] [place] [address] Mar, [facility] [id number] [place] [address] Mar, [facility] [id number] [place] [address] Mar, [facility] [id number] [place] [address] Mar, [facility] [id number] [place] [address] Mar, [facility] [address] [id number] [place] [address] Mar, [facility] [id number] [place] [address] Mar, [facility] [address] [id number] [place] [address] Feb, [facility] [id number] [place] [address] Feb, [facility] [address] [id number] [place] [address] Jan, [facility] [id number] [place] [address] Jan, [facility] [id number] [place] [address] Jan, [facility] [address] [id number] [place] [address] Jan, [facility] [address] [facility]] [id number] [place] [address] Dec, [facility] [address] [id number] [place] [address] Dec, [facility] [address] [facility]] [id number] [place] [address] Nov, [facility] [address] [facility] [address]] [id number] [place] [address] Nov, [facility] [address] [id number] [place] [address] Oct, [facility] [address] [id number] [place] [address] Oct, [facility] [address] [id number] [place] [address] Oct, [facility] [address] [facility] [address]] [id number] [place] [address] Oct, [facility] [address] [id number] [place] [address] Oct, [facility] [address] [id number] [place] [address] Oct, [facility] [address] [id number] [place] [address] Oct, [facility] [address] [facility] [address]] [id number] [place] [address] Oct, [facility] [address] [id number] [place] [address] Sep, [facility] [address] [id number] [place] [address] Sep, [facility] [address] [id number] [place] [address] Sep, [facility] [address] [id number] [place] [address] Sep, [facility] [address] [id number] [place] [address] Aug, [facility] [address] [id number] [place] [address] Aug, [facility] [address] [id number] [place] [address] Aug, [facility] [address] [id number] [place] [address] Aug, [facility] [address] [id number] [place] [address] July, [facility] [address] [id number] [place] [address] July, [facility] [address] [id number] [place] [address] July, [facility] [address] [id number] [place] [address] July, [facility] [address] [id number] [place] [address] July, [facility] [address] [id number] [place] [address] July, [facility] [address] [id number] [place] [address] Jun, [facility] [address] [id number] [place] [address] 23 Jun, 2013 [facility] [address] [id number] [place] [address] 15 Jun, 2013 [facility] [address] [id number] [place] [address] 15 Jun, 2013 [facility] [address] [id number] [place] [address] 14 Jun, 2013 [facility] [address] [id number] [place] [address] 14 Jun, 2013 [facility] [address] [facility]NOTE [facility]] [id number] [place] [address] 14 Jun, 2013 [facility] [address] [facility]NOTE 3] [id number] [place] [address] 14 Jun, 2013 [facility] [address] [id number] [place] [address] 19 May, 2013 [facility] [address] [id number] [place] [address] 19 May, 2013 [facility] [address] [facility]] [id number] [place] [address] 18 May, 2013 [facility] [address] [id number] [place] [address] Apr, [facility] [address] [id number] [place] [address] Apr, [facility] [address] [id number] [place] [address] Apr, [facility] [address] [id number] [place] [address] Apr, [facility] [address] [id number] [place] [address] Mar, [facility] [address] [id number] [place] [address] Mar, [facility] [address] [id number] [place] [address] Mar, [facility] [address] [id number] [place] [address] Mar, [facility] [address] [id number] [place] [address] Mar, [facility] [address] [id number] [place] [address] Mar, [facility] [address] [id number] [place] [address] Feb, [facility] [address] [id number] [place] [address] Feb, [facility] [address] [id number] [place] [address] Jan, [facility] [address] [id number] [place] [address] Jan, [facility] [address] [id number] [place] [address] Jan, [facility] [address] [id number] [place] [address] Jan, [facility] [address] [id number] [place] [address] Jan, [facility] [address] [id number] [place] [address] Jan, [facility] [address] [id number] [place] [address] Jan, [facility] [address] [id number] [place] [address] Dec, [facility] [address] [id number] [place] [address] Dec, [facility] [address] [id number] [place] [address] Nov, [facility] [address] [id number] [place] [address] Nov, [facility] [address] [id number] [place] [address] Nov, [facility] [address] [id number] [place] [address] Oct, [facility] [address] [id number] [place] [address] Oct, [facility] [address] [id number] [place] [address] Oct, [facility] [address] [id number] [place] [address] Oct, [facility] [id number] [place] [address] Sep, [facility] [id number] [place] [address] Sep, [facility] [id number] [place] [address] Aug, [facility] [id number] [place] [address] Aug, [facility] [id number] [place] [address] Aug, [facility] [id number] [place] [address] Aug, [facility] [facility] [id number] [place] [address] July, [facility] [id number] [place] [address] July, [facility] [id number] [place] [address] July, [facility] [id number] [place] [address] July, [facility] [id number] [place] [address] Jun, [facility] [id number] [place] [address] Jun, [facility] [id number] [place] [address] Feb, [facility] [id number] [place] [address] Feb, [facility] [id number] [place] [address] Mar, IMMUNIZATIONS No Known Immunizations SOCIAL HISTORY [...]
--- OUTSIDE RECORDS SUMMARY | 2019-08-16 14:13 | XMS REPORT ---
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 Name Role Phone MIRELLA MARIA Unavailable PROBLEMS Type Condition ICD9-CM Code PZD86-YH Code Onset Dates Condition S tatus SNOMED Code Problem Mood disorder F39 Active 110878 05 Problem Low back pain M54.5 Active 024420 005 Problem Acquired hypothyroidism E03.9 Active 807972533 Problem Diabetes type 2, uncontrolled E11.65 Active 897890201 Problem Diabetes type 2, controlled E11.9 Ac tive 82553351 Problem Controlled type 2 diabetes m ellitus without complication, without long- term current use of insulin E11.9 Active 747690495 Problem Uncontrolled type 2 diabetes mellitus with hyperglycemia E11.65 Active 247623528 Problem Hypertension, benign I10 Active 96021732 Problem Other chronic pain G89.29 Active 8 3060197 Problem Shoulder pain, right M25.511 Active 35642499 Problem Cervical radiculopathy M54.12 Active 77686674 Problem History of urethral stricture Z87.448 Active 168616336 Problem 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 Active 638198737 Problem Type 2 diabetes mellitus without complications E11 .9 Active 231137081 ALLERGIES No Information ENCOUNTERS Encounter Location Date Diagnosis [facility] [id number] [place] [address] Feb, Controlled type 2 diabetes mellitus with out complication, without long-term current use of insulin E11.9 [facility] [address] [address] Feb, Uncontrolled type 2 diabetes mellitus wi th hyperglycemia E11.65 ; Other chronic pain G89.29 ; Pain in right shoulder M25.511 and Thoracic spine pain M54.6 [facility] [address] [address] Nov, [facility] [id number] [place] [address] Aug, Diabetes type 2, uncontrolled E11.65 [facility] [id number] [place] [address] July, [facility] [address] [id number] [place] [id number] July, Dental examination Z01.20 and Caries K02 .9 [address] [address] Jun, Controlled type 2 diabetes mellitus with out complication, without long-term current use of insulin E11.9 [address] [facility] [address] [address] May, Controlled type 2 diabetes mellitus with out complication, without long-term current use of insulin E11.9 [address] [facility] [address] [address] Apr, [facility] [address] [address] Mar, Controlled type 2 diabetes mellitus with out complication, without long-term current use of insulin E11.9 [facility] [address] [place] [address] Jan, [address] [place] [address] Dec, Diabetes type 2, uncontrolled E11.65 [address] [facility] [address] [address] Dec, Type 2 diabetes mellitus without complic ations E11.9 ; 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 and Cervicalgia M54.2 [address] [place] [address] [address] Dec, Type 2 diabetes mellitus without complic ations E11.9 ; 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 and Cervicalgia M54.2 [address] [place] [address] [address] Dec, Controlled type 2 diabetes mellitus with out complication, without long-term current use of insulin E11.9 [facility] [address] [place] [address] Nov, [facility] [address] [address] Oct, Diabetes type 2, uncontrolled E11.65 [address] [address] [address] Sep, Diabetes type 2, uncontrolled E11.65 [address] [facility] [address] [address] Jun, Controlled type 2 diabetes mellitus with out complication, without long-term current use of insulin E11.9 [address] [facility] [address] [address] May, [address] [place] [address] [address] May, Radiculopathy of cervical region M54.12 [address] [place] [address] 14 May, 2017 Controlled type 2 diabetes mellitus with out complication, without long-term current use of insulin E11.9 [address] [address] [address] May, [address] [place] [address] May, Controlled type 2 diabetes mellitus with out complication, without long-term current use of insulin E11.9 [address] [place] [address] May, Controlled type 2 diabetes mellitus with out complication, without long-term current use of insulin E11.9 [address] [address] [address] 05 May, 2017 Controlled type 2 diabetes mellitus with out complication, without long-term current use of insulin E11.9 [address] [address] [address] 15 Apr, 2017 [address] [address] [place] [address] Apr, Controlled type 2 diabetes mellitus with out complication, without long-term current use of insulin E11.9 [address] [facility] [id number] [place] [address] 07 Apr, 2017 [address] [place] [address] Apr, Controlled type 2 diabetes mellitus with out complication, without long-term current use of insulin E11.9 [address] [address] Mar, [address] [place] [address] Mar, Radiculopathy of cervical region M54.12 [address] [place] [address] Mar, Controlled type 2 diabetes mellitus with out complication, without long-term current use of insulin E11.9 [address] [place] [address] Feb, Cervical radiculopathy M54.12 ; Acute cy stitis without hematuria N30.00 and History of urethral stricture Z87.448 [address] [place] [address] Feb, Controlled type 2 diabetes mellitus with out complication, without long-term current use of insulin E11.9 [address] [facility] [address] [place] [address] 05 Feb, 2017 [address] [place] [address] 15 Jan, 2017 Diabetes type 2, uncontrolled E11.65 [address] [facility] [address] 15 Jan, 2017 [address] [place] [address] [address] Jan, Controlled type 2 diabetes mellitus with out complication, without long-term current use of insulin E11.9 ; Chest wall pain R07.89 and Thoracic spine pain M54.6 [facility] [address] [place] [address] Dec, [facility] [address] [address] Dec, [facility] [address] [address] Nov, [facility] [address] [address] Nov, [facility] [address] [facility] [id number] [place] [address] Nov, Trichomonas exposure Z20.2 [facility] [address] [address] Oct, [facility] [address] [address] Oct, [facility] [address] [address] Oct, [facility] [address] [address] Oct, [facility] [address] [address] Sep, [facility] [address] [address] Sep, [facility] [address] [address] Aug, [facility] [address] [address] Aug, [facility] [address] [address] Aug, [facility] [address] [address] Aug, [facility] [id number] [place] [address] July, Diabetes type 2, controlled E11.9 [facility] [id number] [place] [address] July, [facility] [id number] [place] [address] July, [facility] [id number] [place] [address] July, [facility] [id number] [place] [address] July, [facility] [id number] [place] [address] Jun, [facility] [id number] [place] [address] Jun, [facility] [id number] [place] [address] May, [facility] [id number] [place] [address] May, [facility] [id number] [place] [address] May, [facility] [id number] [place] [address] May, Controlled type 2 diabetes mellitus with out complication, without long-term current use of insulin E11.9 [facility] [id number] [place] [address] Apr, [facility] [id number] [place] [address] Apr, [facility] [id number] [place] [address] Mar, [facility] [id number] [place] [address] Mar, [facility] [id number] [place] [address] Feb, [facility] [address] [id number] [place] [address] Feb, [facility] [address] [id number] [place] [address] Jan, [facility] [id number] [place] [address] Jan, [facility] [id number] [place] [address] Jan, [facility] [address] [id number] [place] [address] Dec, [facility] [id number] [place] [address] Dec, [facility] [id number] [place] [address] Dec, [facility] [id number] [place] [address] Nov, Diabetes type 2, uncontrolled E11.65 [facility] [id number] [place] [address] 14 Nov, 2015 [facility] [id number] [place] [address] Nov, [facility] [id number] [place] [address] Oct, [facility] [id number] [place] [address] Oct, [facility] [id number] [place] [address] Sep, Controlled type 2 diabetes mellitus with out complication, without long-term current use of insulin E11.9 [facility] [id number] [place] [address] Sep, [facility] [id number] [place] [address] Sep, [facility] [id number] [place] [address] 07 Sep, 2015 [facility] [address] [address] 05 Sep, 2015 [facility] [address] [address] Aug, Diabetes type 2, controlled E11.9 ; Anxi ety F41.9 ; Carpal tunnel syndrome, left upper limb G56.02 and Carpal tunnel syndrome, right upper limb G56.01 [facility] [address] [address] Aug, Urethritis N34.2 [facility] [address] [address] Aug, [facility] [address] [address] July, Genital warts A63.0 [facility] [address] [address] July, [facility] [address] [address] July, Genital warts A63.0 [facility] [address] [address] July, Anxiety F41.9 [facility] [address] [address] Jun, Genital warts A63.0 [facility] [address] [address] 08 Jun, 2015 Anxiety F41.9 [facility] [address] [address] 15 May, 2015 Genital warts A63.0 and Diabetes type 2, uncontrolled E11.65 [facility] [address] [address] May, [facility] [address] [address] May, [facility] [id number] [place] [address] Apr, [facility] [address] [address] Apr, [facility] [id number] [place] [address] Apr, Diabetes type 2, controlled E11.9 [facility] [address] [address] Apr, Genital warts A63.0 [facility] [address] [address] Apr, [facility] [address] [address] Apr, Diabetes type 2, uncontrolled E11.65 and Genital warts A63.0 [facility] [address] [address] Apr, [facility] [address] [address] Mar, [facility] [address] [address] Mar, [facility] [address] [address] Mar, Family history of diabetes mellitus V18. 0 and Weight loss R63.4 [facility] [address] [address] Mar, Genital warts A63.0 and Family history o f diabetes mellitus V18.0 [facility] [address] [address] Feb, [facility] [address] [address] Jan, [facility] [address] [address] Jan, Perianal venereal warts A63.0 [address] [place] [address] Jan, Urethritis N34.2 and Anxiety F41.9 [address] [place] [address] Jan, [address] [place] [address] Jan, Urinary tract infection, site unspecifie d N39.0 [address] [place] [address] Jan, [address] [place] [address] Dec, [address] [place] [address] Dec, HPV (human papilloma virus) anogenital i nfection A63.0 ; Anxiety F41.9 and Gastroesophageal reflux disease without esophagitis K21.9 [address] [place] [address] Sep, Blood in stool 578.1 [address] [place] [address] Aug, Blood in stool 578.1 [address] [place] [address] Aug, Anxiety 300.00 and Blood in stool 578.1 [address] [place] [address] July, [address] [place] [address] July, Family history of diabetes mellitus V18. 0 [address] [place] [address] July, Family history of diabetes mellitus V18. 0 ; Family history of thyroid disease V18.19 ; Polyuria 788.42 ; Polydipsia 783.5 ; Alopecia 704.00 and Fatigue 780.79 [facility] [address] [id number] [place] [address] Jun, [facility] [address] [facility] [id number] [place] [address] Jun, [facility] [address] [id number] [place] [address] Mar, [facility] [id number] [place] [address] Mar, [facility] [address] [id number] [place] [address] Mar, [facility] [id number] [place] [address] Mar, [facility] [id number] [place] [address] Mar, [facility] [id number] [place] [address] Mar, [facility] [id number] [place] [address] Mar, [facility] [id number] [place] [address] Mar, [facility] [address] [id number] [place] [address] Mar, [facility] [id number] [place] [address] Mar, [facility] [address] [id number] [place] [address] Feb, [facility] [id number] [place] [address] Feb, [facility] [address] [id number] [place] [address] Jan, [facility] [id number] [place] [address] Jan, [facility] [id number] [place] [address] Jan, [facility] [address] [id number] [place] [address] Jan, [facility] [address] [facility] [id number] [place] [address] Dec, [facility] [address] [id number] [place] [address] Dec, [facility] [address] [facility] [id number] [place] [address] Nov, [facility] [address] [facility] [id number] [place] [address] Nov, [facility] [address] [id number] [place] [address] Oct, [facility] [address] [id number] [place] [address] Oct, [facility] [address] [id number] [place] [address] Oct, [facility] [address] [facility] [id number] [place] [address] Oct, [facility] [address] [id number] [place] [address] Oct, [facility] [address] [id number] [place] [address] Oct, [facility] [address] [id number] [place] [address] Oct, [facility] [address] [facility] [id number] [place] [address] Oct, [facility] [address] [id number] [place] [address] Sep, [facility] [address] [id number] [place] [address] Sep, [facility] [address] [id number] [place] [address] Sep, [facility] [address] [id number] [place] [address] Sep, [facility] [address] [id number] [place] [address] Aug, [facility] [address] [id number] [place] [address] Aug, [facility] [address] [id number] [place] [address] Aug, [facility] [address] [id number] [place] [address] Aug, [facility] [address] [id number] [place] [address] July, [facility] [address] [id number] [place] [address] July, [facility] [address] [id number] [place] [address] July, [facility] [address] [id number] [place] [address] July, [facility] [address] [id number] [place] [address] July, [facility] [address] [id number] [place] [address] July, [facility] [address] [id number] [place] [address] Jun, [facility] [address] [id number] [place] [address] 23 Jun, 2013 [facility] [address] [id number] [place] [address] 15 Jun, 2013 [facility] [address] [id number] [place] [address] 15 Jun, 2013 [facility] [address] [id number] [place] [address] 14 Jun, 2013 [facility] [address] [id number] [place] [address] 14 Jun, 2013 [facility] [address] [facility] [id number] [place] [address] 14 Jun, 2013 [facility] [address] [facility] [id number] [place] [address] 14 Jun, 2013 [facility] [address] [id number] [place] [address] 19 May, 2013 [facility] [address] [id number] [place] [address] 19 May, 2013 [facility] [address] [facility] [id number] [place] [address] 18 May, 2013 [facility] [address] [id number] [place] [address] Apr, [facility] [address] [id number] [place] [address] Apr, [facility] [address] [id number] [place] [address] Apr, [facility] [address] [id number] [place] [address] Apr, [facility] [address] [id number] [place] [address] Mar, [facility] [address] [id number] [place] [address] Mar, [facility] [address] [id number] [place] [address] Mar, [facility] [address] [id number] [place] [address] Mar, [facility] [address] [id number] [place] [address] Mar, [facility] [address] [id number] [place] [address] Mar, [facility] [address] [id number] [place] [address] Feb, [facility] [address] [id number] [place] [address] Feb, [facility] [address] [id number] [place] [address] Jan, [facility] [address] [id number] [place] [address] Jan, [facility] [address] [id number] [place] [address] Jan, [facility] [address] [id number] [place] [address] Jan, [facility] [address] [id number] [place] [address] Jan, [facility] [address] [id number] [place] [address] Jan, [facility] [address] [id number] [place] [address] Jan, [facility] [address] [id number] [place] [address] Dec, [facility] [address] [id number] [place] [address] Dec, [facility] [address] [id number] [place] [address] Nov, [facility] [address] [id number] [place] [address] Nov, [facility] [address] [id number] [place] [address] Nov, [facility] [address] [id number] [place] [address] Oct, [facility] [address] [id number] [place] [address] Oct, [facility] [address] [id number] [place] [address] Oct, [facility] [address] [id number] [place] [address] Oct, [facility] [id number] [place] [address] Sep, [facility] [id number] [place] [address] Sep, [facility] [id number] [place] [address] Aug, [facility] [id number] [place] [address] Aug, [facility] [id number] [place] [address] Aug, [facility] [id number] [place] [address] Aug, [facility] [id number] [place] [address] July, [facility] [id number] [place] [address] July, [facility] [id number] [place] [address] July, [facility] [id number] [place] [address] July, [facility] [id number] [place] [address] Jun, [facility] [id number] [place] [address] Jun, [facility] [id number] [place] [address] Feb, [facility] [id number] [place] [address] Feb, [facility] [id number] [place] [address] Mar, IMMUNIZATIONS No Known Immunizations SOCIAL HISTORY [...]
--- OUTSIDE RECORDS SUMMARY | 2019-08-16 14:14 | XMS REPORT ---
Author Author Joseph MARIA Organization 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 Name Role Phone MIRELLA MARIA Unavailable PROBLEMS Type Condition ICD9-CM Code ZEQ19-VJ Code Onset Dates Condition S tatus SNOMED Code Problem Shoulder pain, right M25.511 Active 25201562 Problem Hypertension, benign I10 Active 28064323 Problem Diabetes type 2, uncontrolled E11.65 Active 096410821 Problem Mood disorder F39 Active 262481 05 Problem Type 2 diabetes mellitus without complications E11 .9 Active 068772666 Problem Low back pain M54.5 Active 204466 005 Problem 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 Active 580069322 Problem Acquired hypothyroidism E03.9 Active 011234779 Problem Diabetes type 2, controlled E11.9 Ac tive 74209770 Problem Controlled type 2 diabetes m ellitus without complication, without long- term current use of insulin E11.9 Active 552187265 Problem History of urethral stricture Z87.448 Active 357072223 Problem Cervical radiculopathy M54.12 Active 79470137 ALLERGIES No Information ENCOUNTERS Encounter Location Date Diagnosis [place] [id number] [place] [address] Aug, Diabetes type 2, uncontrolle d E11.65 [facility] [address] [facility] [id number] [address] [place] [address] July, [facility] [address] [id number] [address] [place] [id number] July, Dental examination Z01.20 an d Caries K02.9 [facility] [address] [facility] [id number] [address] [place] [address] Jun, Controlled type 2 diabetes m ellitus without complication, without long-term current use of insulin E11.9 [place] [address] [address] [facility] [id number] [address] [place] [address] May, Controlled type 2 diabetes m erika without complication, without long-term current use of insulin E11.9 [facility] [address] [facility] [id number] [address] [place] [address] Apr, [facility] [address] [facility] [id number] [address] [place] [address] Mar, Controlled type 2 diabetes m erika without complication, without long-term current use of insulin E11.9 [place] [address] [address] [facility] [id number] [address] [place] [address] Jan, [place] [address] [address] [facility] [id number] [address] [place] [address] Dec, Diabetes type 2, uncontrolle d E11.65 [place] [address] [address] [place] [id number] [address] [place] [address] Dec, Type 2 diabetes mellitus wit hout complications E11.9 ; 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 [address] [facility] [id number] [address] [place] [address] Nov, [facility] [address] [facility] [id number] [address] [place] [address] Oct, Diabetes type 2, uncontrolle d E11.65 [facility] [address] [facility] [id number] [address] [place] [address] Sep, Diabetes type 2, uncontrolle d E11.65 [facility] [address] [id number] [address] [place] [address] Jun, Controlled type 2 diabetes m ellitus without complication, without long-term current use of insulin E11.9 [facility] [address] [id number] [address] [place] [address] May, [facility] [address] [id number] [address] [place] [address] 16 May, 2017 Radiculopathy of cervical re gion M54.12 [facility] [address] [id number] [address] [place] [address] 14 May, 2017 Controlled type 2 diabetes m ellitus without complication, without long-term current use of insulin E11.9 [facility] [address] [id number] [address] [place] [address] May, [facility] [address] [id number] [address] [place] [address] May, Controlled type 2 diabetes m ellitus without complication, without long-term current use of insulin E11.9 [facility] [address] [id number] [address] [place] [address] May, Controlled type 2 diabetes m ellitus without complication, without long-term current use of insulin E11.9 [facility] [address] [id number] [address] [place] [address] May, Controlled type 2 diabetes m ellitus without complication, without long-term current use of insulin E11.9 [facility] [address] [id number] [address] [place] [address] Apr, [facility] [address] [facility] [id number] [address] [place] [address] Apr, Controlled type 2 diabetes m ellitus without complication, without long-term current use of insulin E11.9 [facility] [address] [facility] [id number] [address] [place] [address] Apr, [facility] [address] [id number] [address] [place] [address] Apr, Controlled type 2 diabetes m ellitus without complication, without long-term current use of insulin E11.9 [place] [address] [id number] [address] [place] [address] Mar, [place] [address] [address] [facility] [id number] [address] [place] [address] Mar, Radiculopathy of cervical re gion M54.12 [place] [address] [id number] [address] [place] [address] Mar, Controlled type 2 diabetes m ellitus without complication, without long-term current use of insulin E11.9 [place] [address] [address] [facility] [id number] [address] [place] [address] Feb, Cervical radiculopathy M54.1 2 ; Acute cystitis without hematuria N30.00 and History of urethral stricture Z87.448 [place] [address] [id number] [address] [place] [address] Feb, Controlled type 2 diabetes m ellitus without complication, without long-term current use of insulin E11.9 [place] [address] [address] [facility] [id number] [address] [place] [address] Feb, [place] [address] [id number] [address] [place] [address] Jan, Diabetes type 2, uncontrolle d E11.65 [place] [address] [id number] [address] [place] [address] Jan, [place] [address] [id number] [address] [place] [address] Jan, Controlled type 2 diabetes m ellitus without complication, without long-term current use of insulin E11.9 ; Chest wall pain R07.89 and Thoracic spine pain M54.6 [place] [address] [address] [facility] [id number] [address] [place] [address] Dec, [facility] [address] [id number] [address] [place] [address], [place] [address] Dec, [facility] [address] [id number] [address] [place] [address], [place] [address] Nov, [facility] [address] [id number] [address] [place] [address], [place] [address] Nov, [facility] [address] [id number] [address] [place] [address], [place] [address] Nov, Trichomonas exposure Z20.2 [facility] [address] [id number] [address] [place] [address], [place] [address] Oct, [facility] [address] [id number] [address] [place] [address] Oct, [facility] [address] [id number] [address] [place] [address], [place] [address] Oct, [facility] [address] [id number] [address] [place] [address] Oct, [facility] [address] [id number] [address] [place] [address], [place] [address] Sep, [facility] [address] [id number] [address] [place] [address] Sep, [facility] [address] [id number] [address] [place] [address] Aug, [facility] [address] [id number] [address] [place] [address] Aug, [facility] [address] [id number] [address] [place] [address] Aug, [facility] [address] [id number] [address] [place] [address] Aug, [facility] [address] [id number] [address] [place] [address] July, Diabetes type 2, controlled E11.9 [facility] [address] [id number] [address] [place] [address], [place] [address] July, [facility] [address] [id number] [address] [place] [address] July, [facility] [address] [id number] [address] [place] [address], [place] [address] July, [facility] [address] [id number] [address] [place] [address], [place] [address] July, [facility] [address] [id number] [address] [place] [address], [place] [address] Jun, [facility] [address] [id number] [address] [place] [address], [place] [address] Jun, [facility] [address] [id number] [address] [place] [address] May, [facility] [address] [id number] [address] [place] [address] May, [facility] [address] [id number] [address] [place] [address] May, [facility] [address] [id number] [address] [place] [address] May, Controlled type 2 diabetes m ellitus without complication, without long-term current use of insulin E11.9 [facility] [address] [id number] [address] [place] [address] [address], [address] [facility] [address] [id number] [address] [place] [address] Apr, [facility] [address] [id number] [address] [place] [address] Mar, [facility] [address] [id number] [address] [place] [address] Mar, [facility] [address] [id number] [address] [place] [address] Feb, [facility] [address] [id number] [address] [place] [address] Feb, [facility] [address] [id number] [address] [place] [address] Jan, [facility] [address] [id number] [address] [place] [address] Jan, [facility] [address] [id number] [address] [place] [address] Jan, [facility] [address] [id number] [address] [place] [address] Dec, [facility] [address] [id number] [address] [place] [address] Dec, [facility] [address] [id number] [address] [place] [address] Dec, [facility] [address] [id number] [address] [place] [address] Nov, Diabetes type 2, uncontrolle d E11.65 [facility] [address] [id number] [address] [place] [address] [address], [address] [facility] [address] [id number] [address] [place] [address] Nov, [facility] [address] [id number] [address] [place] [address] Oct, [facility] [address] [id number] [address] [place] [address] Oct, [facility] [address] [id number] [address] [place] [address] Sep, Controlled type 2 diabetes m ellitus without complication, without long-term current use of insulin E11.9 [facility] [address] [id number] [address] [place] [address] Sep, [facility] [address] [id number] [address] [place] [address] Sep, [facility] [address] [id number] [address] [place] [address] Sep, [facility] [address] [id number] [address] [place] [address] Sep, [facility] [address] [id number] [address] [place] [address] Aug, Diabetes type 2, controlled E11.9 ; Anxiety F41.9 ; Carpal tunnel syndrome, left upper limb G56.02 and Carpal tunnel syndrome, right upper limb G56.01 [facility] [address] [id number] [address] [place] [address] Aug, Urethritis N34.2 [facility] [address] [id number] [address] [place] [address] Aug, [facility] [address] [id number] [address] [place] [address] July, Genital warts A63.0 [facility] [address] [id number] [address] [place] [address] July, [facility] [address] [id number] [address] [place] [address] July, Genital warts A63.0 [facility] [address] [id number] [address] [place] [address] July, Anxiety F41.9 [facility] [address] [id number] [address] [place] [address] Jun, Genital warts A63.0 [facility] [address] [id number] [address] [place] [address] Jun, Anxiety F41.9 [facility] [address] [id number] [address] [place] [address] May, Genital warts A63.0 and Diab etes type [address], [address] [facility] [address] [id number] [address] [place] [address] May, [facility] [address] [facility] [id number] [address] [place] [address] May, [facility] [address] [facility] [id number] [address] [place] [address] Apr, [facility] [address] [facility] [id number] [address] [place] [address] Apr, [facility] [address] [facility] [id number] [address] [place] [address] Apr, Diabetes type 2, controlled E11.9 [facility] [address] [facility] [id number] [address] [place] [address] Apr, Genital warts A63.0 [facility] [address] [facility] [id number] [address] [place] [address] Apr, [facility] [address] [facility] [id number] [address] [place] [address] Apr, Diabetes type 2, uncontrolle d E11.65 and Genital warts A63.0 [facility] [address] [facility] [id number] [address] [place] [address] Apr, [facility] [address] [facility] [id number] [address] [place] [address] Mar, [facility] [address] [facility] [id number] [address] [place] [address] Mar, [facility] [address] [place] [id number] [address] [place] [address] Mar, Family history of diabetes m ellitus V18.[address]4 [facility] [address] [facility] [id number] [address] [place] [address] Mar, Genital warts A63.0 and Fami ly history of diabetes mellitus V18.0 [facility] [address] [facility] [id number] [address] [place] [address] Feb, [facility] [address] [facility] [id number] [address] [place] [address] Jan, [facility] [address] [facility] [id number] [address] [place] [address] Jan, Perianal venereal warts A63. 0 [facility] [address] [facility] [id number] [address] [place] [address] Jan, Urethritis N34.[address] [facility] [address] [facility] [id number] [address] [place] [address] Jan, [facility] [address] [place] [id number] [address] [place] [address] Jan, Urinary tract infection, sit e unspecified N39.0 [facility] [address] [place] [id number] [address] [place] [address] Jan, [facility] [address] [facility] [id number] [address] [place] [address] Dec, [facility] [address] [place] [id number] [address] [place] [address] Dec, HPV (human papilloma virus) anogenital infection A63.0 ; Anxiety F41.9 and Gastroesophageal reflux disease without esophagitis K21.9 [facility] [address] [place] [id number] [address] [place] [address] Sep, Blood in stool 578.1 [facility] [address] [facility] [id number] [address] [place] [address] Aug, Blood in stool 578.1 [facility] [address] [place] [id number] [address] [place] [address] Aug, Anxiety 300.00 and Blood in stool 578.1 [facility] [address] [place] [id number] [address] [place] [address] July, [facility] [address] [place] [id number] [address] [place] [address] July, Family history of diabetes m yaraitus V18.0 [facility] [address] [facility] [id number] [address] [place] [address] July, Family history of diabetes m ellitus V18.0 ; Family history of thyroid disease V18.19 ; Polyuria 788.42 ; Polydipsia 783.5 ; Alopecia 704.[address] [facility] [address] [id number] [address] [place] [address] Jun, [facility] [address] [id number] [address] [place] [address] Jun, [facility] [address] [facility] [id number] [address] [place] [address] Mar, [facility] [address] [facility] [id number] [address] [place] [address] Mar, [facility] [address] [id number] [address] [place] [address] Mar, [facility] [address] [id number] [address] [place] [address] Mar, [facility] [address] [facility] [id number] [address] [place] [address] Mar, [facility] [address] [facility] [id number] [address] [place] [address] Mar, [facility] [address] [id number] [address] [place] [address] Mar, [facility] [address] [id number] [address] [place] [address] Mar, [facility] [address] [facility] [id number] [address] [place] [address] Mar, [facility] [address] [facility] [id number] [address] [place] [address] Mar, [facility] [address] [id number] [address] [place] [address], [place] [address] Feb, [facility] [address] [id number] [address] [place] [address], [place] [address] Feb, [facility] [address] [id number] [address] [place] [address], [place] [address] Jan, [facility] [address] [id number] [address] [place] [address], [place] [address] Jan, [facility] [address] [id number] [address] [place] [address], [place] [address] Jan, [facility] [address] [id number] [address] [place] [address], [place] [address] Jan, [facility] [address] [id number] [address] [place] [address], [place] [address] Dec, [facility] [address] [id number] [address] [place] [address], [place] [address] Dec, [facility] [address] [id number] [address] [place] [address], [place] [address] Nov, [facility] [address] [id number] [address] [place] [address], [place] [address] Nov, [facility] [address] [id number] [address] [place] [address], [place] [id number] Oct, [facility] [address] [id number] [address] [place] [address], [place] [id number] Oct, [facility] [address] [id number] [address] [place] [address], [place] [id number] Oct, [facility] [address] [id number] [address] [place] [address], [place] [id number] Oct, [facility] [address] [id number] [address] [place] [address], [place] [id number] Oct, [facility] [address] [id number] [address] [place] [address], [place] [id number] Oct, [facility] [address] [id number] [facility] [place] [id number] Oct, [facility] [address] [id number] [address] [place] [address], [place] [id number] Oct, [facility] [address] [id number] [address] [place] [address], [place] [id number] Sep, [facility] [address] [id number] [address] [place] [address], [place] [id number] Sep, [facility] [address] [id number] [address] [place] [address], [place] [id number] Sep, [facility] [address] [id number] [address] [place] [address], [place] [id number] Sep, [facility] [address] [id number] [address] [place] [address], [place] [id number] Aug, [facility] [address] [id number] [address] [place] [address], [place] [id number] Aug, [facility] [address] [id number] [address] [place] [address], [place] [id number] Aug, [facility] [address] [id number] [address] [place] [address], [place] [id number] Aug, [facility] [address] [id number] [address] [place] [address], [place] [id number] July, [facility] [address] [id number] [address] [place] [address], [place] [id number] July, [facility] [address] [id number] [address] [place] [address], [place] [id number] July, [facility] [address] [id number] [address] [place] [address], [place] [id number] July, [facility] [address] [id number] [address] [place] [address], [place] [id number] July, [facility] [address] [id number] [address] [place] [address], [place] [id number] July, [facility] [address] [id number] [address] [place] [address], [place] [id number] 23 Jun, 2013 [facility] [address] [id number] [address] [place] [address], [place] [id number] 23 Jun, 2013 [facility] [address] [id number] [address] [place] [address], [place] [id number] 15 Jun, 2013 [facility] [facility] [address] [id number] [address] [place] [address], [place] [id number] 15 Jun, 2013 [facility] [address] [id number] [address] [place] [address], [place] [id number] 14 Jun, 2013 [facility] [address] [id number] [address] [place] [address], [place] [id number] Jun, [facility] [address] [id number] [address] [place] [address], [place] [id number] Jun, [facility] [address] [id number] [address] [place] [address], [place] [id number] 14 Jun, 2013 [facility] [address] [id number] [address] [place] [address], [place] [id number] May, [facility] [address] [id number] [address] [place] [address], [place] [id number] May, [facility] [address] [id number] [address] [place] [address], [place] [id number] May, [facility] [address] [id number] [address] [place] [address], [place] [address] Apr, [facility] [address] [id number] [address] [place] [address], [place] [id number] Apr, [facility] [address] [id number] [address] [place] [address], [place] [id number] Apr, [facility] [address] [id number] [address] [place] [address], [place] [id number] Apr, [facility] [address] [id number] [address] [place] [address], [place] [id number] Mar, [facility] [address] [id number] [address] [place] [address], [place] [id number] Mar, [facility] [address] [id number] [address] [place] [address], [place] [id number] Mar, [facility] [address] [id number] [address] [place] [address], [place] [id number] Mar, [facility] [address] [id number] [address] [place] [address], [place] [id number] Mar, [facility] [address] [id number] [address] [place] [address], [place] [id number] Mar, [facility] [address] [id number] [address] [place] [address], [place] [id number] Feb, [facility] [address] [id number] [address] [place] [address], [place] [id number] Feb, [facility] [address] [id number] [address] [place] [address], [place] [address] Jan, [facility] [address] [id number] [address] [place] [address], [place] [id number] Jan, [facility] [address] [id number] [address] [place] [address], [place] [id number] Jan, [facility] [address] [id number] [address] [place] [address], [place] [id number] Jan, [facility] [address] [id number] [address] [place] [address], [place] [id number] Jan, [facility] [address] [id number] [address] [place] [address], [place] [id number] Jan, [facility] [address] [id number] [address] [place] [address], [place] [id number] Jan, [facility] [address] [id number] [address] [place] [address], [place] [id number] Dec, [facility] [address] [id number] [address] [place] [address], [place] [address] Dec, [facility] [address] [id number] [address] [place] [address], [place] [address] Nov, [facility] [address] [id number] [address] [place] [address], [place] [address] Nov, [facility] [address] [id number] [address] [place] [address], [place] [id number] Nov, [facility] [address] [id number] [address] [place] [address], [place] [id number] Oct, [facility] [address] [id number] [address] [place] [address], [place] [id number] Oct, [facility] [address] [id number] [address] [place] [address], [place] [address] Oct, [facility] [address] [id number] [address] [place] [address], [place] [id number] Oct, [facility] [address] [id number] [address] [place] [address], [place] [id number] Sep, [facility] [address] [id number] [address] [place] [address], [place] [id number] Sep, [facility] [address] [id number] [address] [place] [address], [place] [id number] Aug, [facility] [address] [id number] [address] [place] [address], [place] [id number] Aug, [facility] [address] [id number] [address] [place] [address], [place] [address] Aug, [facility] [address] [id number] [address] [place] [address], [place] [id number] Aug, [facility] [address] [id number] [address] [place] [address], [place] [id number] July, [facility] [address] [id number] [address] [place] [id number] July, [facility] [address] [id number] [address] [place] [id number] July, [facility] [address] [id number] [address] [place] [id number] July, [facility] [address] [id number] [address] [place] [address] Jun, [facility] [address] [id number] [address] [place] [address] Jun, [facility] [address] [facility] [id number] [address] [place] [address] Feb, [facility] [address] [facility] [id number] [address] [place] [id number] Feb, [facility] [address] [facility] [id number] [address] [place] [id number] Mar, IMMUNIZATIONS No Known Immunizations SOCIAL HISTORY [...]
--- OUTSIDE RECORDS SUMMARY | 2019-08-16 14:14 | XMS REPORT ---
Author Author Joseph MARIA Organization [facility] Address [address] [place] [address] Care Team Providers Care Floor Assembler Name Role Phone MIRELLA MARIA Unavailable PROBLEMS Type Condition ICD9-CM Code [id number] Code Onset Dates Condition S tatus SNOMED Code Problem Shoulder pain, right M25.511 Active 32780668 Problem Hypertension, benign I10 Active 70615621 Problem Diabetes type 2, uncontrolled E11.65 Active 324061668 Problem Mood disorder F39 Active 155628 05 Problem Type 2 diabetes mellitus without complications E11 .9 Active 180874716 Problem Low back pain M54.5 Active 445942 005 Problem detention current use of insulin Z79.4 Active 647104161 Problem Acquired hypothyroidism E03.9 Active 320590705 Problem Diabetes type 2, controlled E11.9 Ac tive 15950150 Problem Controlled type 2 diabetes m ellitus without complication, without long- term current use of insulin E11.9 Active 028648073 Problem History of urethral stricture Z87.448 Active 641552097 Problem Cervical radiculopathy M54.12 Active [id number] ALLERGIES No Information ENCOUNTERS Encounter Location Date Diagnosis [place] [id number] [place] [address] Aug, Diabetes type 2, uncontrolle d E11.65 [facility] [address] [facility] [id number] [address] [place] [address] July, [facility] [address] [id number] [address] [place] [id number] July, Dental examination Z01.20 an d Caries K02.9 [facility] [address] [facility] [id number] [address] [place] [phone] Jun, Controlled type 2 diabetes m ellitus without complication, without long-term current use of insulin E11.9 [facility] [address] [facility] [id number] [address] [place] [address] May, Controlled type 2 diabetes m erika without complication, without long-term current use of insulin E11.9 [facility] [address] [facility] [id number] [address] [place] [address] Apr, [facility] [address] [facility] [id number] [address] [place] [address] Mar, Controlled type 2 diabetes m erika without complication, without long-term current use of insulin E11.9 [place] [address] [facility] [id number] [address] [place] [address] Jan, [place] [address] [facility] [id number] [address] [place] [address] Dec, Diabetes type 2, uncontrolle d E11.65 [place] [address] [place] [id number] [address] [place] [id number] Dec, Type 2 diabetes mellitus wit hout complications E11.9 ; 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 and Cervicalgia M54.2 [place] [address] [facility] [id number] [address] [place] [phone] Dec, Type 2 diabetes mellitus wit hout complications E11.9 ; detention current use of insulin Z79.4 and Cervicalgia M54.2 [place] [address] [facility] [id number] [address] [place] [address] Dec, Controlled type 2 diabetes m erika without complication, without long-term current use of insulin E11.9 [facility] [address] [facility] [id number] [address] [place] [address] Nov, [facility] [address] [facility] [id number] [address] [place] [address] Oct, Diabetes type 2, uncontrolle d E11.65 [facility] [address] [facility] [id number] [address] [place] [address] Sep, Diabetes type 2, uncontrolle d E11.65 [facility] [address] [id number] [address] [place] [address] Jun, Controlled type 2 diabetes m ellitus without complication, without long-term current use of insulin E11.9 [facility] [address] [id number] [address] [place] [phone] May, [facility] [address] [id number] [address] [place] [phone] 16 May, 2017 Radiculopathy of cervical re gion M54.12 [facility] [address] [id number] [address] [place] [phone] 14 May, 2017 Controlled type 2 diabetes m ellitus without complication, without long-term current use of insulin E11.9 [facility] [address] [id number] [address] [place] [address] May, [facility] [address] [id number] [address] [place] [address] May, Controlled type 2 diabetes m ellitus without complication, without long-term current use of insulin E11.9 [facility] [address] [id number] [address] [place] [address] May, Controlled type 2 diabetes m ellitus without complication, without long-term current use of insulin E11.9 [facility] [address] [id number] [address] [place] [phone] May, Controlled type 2 diabetes m ellitus without complication, without long-term current use of insulin E11.9 [facility] [address] [id number] [address] [place] [address] Apr, [facility] [address] [facility] [id number] [address] [place] [address] Apr, Controlled type 2 diabetes m ellitus without complication, without long-term current use of insulin E11.9 [facility] [address] [facility] [id number] [address] [place] [address] Apr, [facility] [address] [id number] [address] [place] [phone] Apr, Controlled type 2 diabetes m ellitus without complication, without long-term current use of insulin E11.9 [place] [address] [id number] [address] [place] [address] Mar, [place] [address] [facility] [id number] [address] [place] [address] Mar, Radiculopathy of cervical re gion M54.12 [place] [address] [id number] [address] [place] [phone] Mar, Controlled type 2 diabetes m ellitus without complication, without long-term current use of insulin E11.9 [place] [address] [facility] [id number] [address] [place] [address] Feb, Cervical radiculopathy M54.1 2 ; Acute cystitis without hematuria N30.00 and History of urethral stricture Z87.448 [place] [address] [id number] [address] [place] [address] Feb, Controlled type 2 diabetes m ellitus without complication, without long-term current use of insulin E11.9 [place] [address] [facility] [id number] [address] [place] [address] Feb, [place] [address] [id number] [address] [place] [address] Jan, Diabetes type 2, uncontrolle d E11.65 [place] [address] [id number] [address] [place] [phone] Jan, [place] [address] [id number] [address] [place] [address] Jan, Controlled type 2 diabetes m ellitus without complication, without long-term current use of insulin E11.9 ; Chest wall pain R07.89 and Thoracic spine pain M54.6 [place] [address] [facility] [id number] [address] [place] [address] Dec, [facility] [address] [id number] [address] [place] [address], [place] [address] Dec, [facility] [address] [id number] [address] [place] [address], [place] [address] Nov, [facility] [address] [id number] [address] [place] [address], [place] [address] Nov, [facility] [address] [id number] [address] [place] [address], [place] [address] Nov, Trichomonas exposure Z20.2 [facility] [address] [id number] [address] [place] [address], [place] [address] Oct, [facility] [address] [id number] [address] [place] [phone] Oct, [facility] [address] [id number] [address] [place] [address], [place] [address] Oct, [facility] [address] [id number] [address] [place] [address] Oct, [facility] [address] [id number] [address] [place] [address], [place] [address] Sep, [facility] [address] [id number] [address] [place] [address] Sep, [facility] [address] [id number] [address] [place] [address] Aug, [facility] [address] [id number] [address] [place] [address] Aug, [facility] [address] [id number] [address] [place] [address] Aug, [facility] [address] [id number] [address] [place] [address] Aug, [facility] [address] [id number] [address] [place] [address] July, Diabetes type 2, controlled E11.9 [facility] [address] [id number] [address] [place] [address], [place] [address] July, [facility] [address] [id number] [address] [place] [phone] July, [facility] [address] [id number] [address] [place] [address], [place] [address] July, [facility] [address] [id number] [address] [place] [address], [place] [address] July, [facility] [address] [id number] [address] [place] [address], [place] [address] Jun, [facility] [address] [id number] [address] [place] [address], [place] [address] Jun, [facility] [address] [id number] [address] [place] [address] May, [facility] [address] [id number] [address] [place] [address] May, [facility] [address] [id number] [address] [place] [address] May, [facility] [address] [id number] [address] [place] [address] May, Controlled type 2 diabetes m ellitus without complication, without long-term current use of insulin E11.9 [facility] [address] [id number] [address] [place] [id number] 15 Apr, 2016 [facility] [address] [id number] [address] [place] [address] Apr, [facility] [address] [id number] [address] [place] [address] Mar, [facility] [address] [id number] [address] [place] [address] Mar, [facility] [address] [id number] [address] [place] [address] Feb, [facility] [address] [id number] [address] [place] [address] Feb, [facility] [address] [id number] [address] [place] [address] Jan, [facility] [address] [id number] [address] [place] [id number] Jan, [facility] [address] [id number] [address] [place] [address] Jan, [facility] [address] [id number] [address] [place] [address] Dec, [facility] [address] [id number] [address] [place] [address] Dec, [facility] [address] [id number] [address] [place] [address] Dec, [facility] [address] [id number] [address] [place] [address] Nov, Diabetes type 2, uncontrolle d E11.65 [facility] [address] [id number] [address] [place] [phone] 14 Nov, 2015 [facility] [address] [id number] [address] [place] [id number] Nov, [facility] [address] [id number] [address] [place] [phone] Oct, [facility] [address] [id number] [address] [place] [phone] Oct, [facility] [address] [id number] [address] [place] [address] Sep, Controlled type 2 diabetes m ellitus without complication, without long-term current use of insulin E11.9 [facility] [address] [id number] [address] [place] [address] Sep, [facility] [address] [id number] [address] [place] [address] Sep, [facility] [address] [id number] [address] [place] [address] Sep, [facility] [address] [id number] [address] [place] [address] Sep, [facility] [address] [id number] [address] [place] [address] Aug, Diabetes type 2, controlled E11.9 ; Anxiety F41.9 ; Carpal tunnel syndrome, left upper limb G56.02 and Carpal tunnel syndrome, right upper limb G56.01 [facility] [address] [id number] [address] [place] [address] Aug, Urethritis N34.2 [facility] [address] [id number] [address] [place] [address] Aug, [facility] [address] [id number] [address] [place] [address] July, Genital warts A63.0 [facility] [address] [id number] [address] [place] [address] July, [facility] [address] [id number] [address] [place] [address] July, Genital warts A63.0 [facility] [address] [id number] [address] [place] [address] July, Anxiety F41.9 [facility] [address] [id number] [address] [place] [address] Jun, Genital warts A63.0 [facility] [address] [id number] [address] [place] [address] Jun, Anxiety F41.9 [facility] [address] [id number] [address] [place] [address] May, Genital warts A63.0 and Diab etes type 2, uncontrolled E11.65 [facility] [address] [id number] [address] [place] [address] May, [facility] [address] [facility] [id number] [address] [place] [address] May, [facility] [address] [facility] [id number] [address] [place] [address] Apr, [facility] [address] [facility] [id number] [address] [place] [address] Apr, [facility] [address] [facility] [id number] [address] [place] [address] Apr, Diabetes type 2, controlled E11.9 [facility] [address] [facility] [id number] [address] [place] [address] Apr, Genital warts A63.0 [facility] [address] [facility] [id number] [address] [place] [address] Apr, [facility] [address] [facility] [id number] [address] [place] [address] Apr, Diabetes type 2, uncontrolle d E11.65 and Genital warts A63.0 [facility] [address] [facility] [id number] [address] [place] [phone] Apr, [facility] [address] [facility] [id number] [address] [place] [phone] Mar, [facility] [address] [facility] [id number] [address] [place] [address] Mar, [facility] [address] [place] [id number] [address] [place] [address] Mar, Family history of diabetes m ellitus V18.0 and Weight loss R63.4 [facility] [address] [facility] [id number] [address] [place] [address] Mar, Genital warts A63.0 and Fami ly history of diabetes mellitus V18.0 [facility] [address] [facility] [id number] [address] [place] [address] Feb, [facility] [address] [facility] [id number] [address] [place] [address] Jan, [facility] [address] [facility] [id number] [address] [place] [address] Jan, Perianal venereal warts A63. 0 [facility] [address] [facility] [id number] [address] [place] [address] Jan, Urethritis N34.2 and Anxiety F41.9 [facility] [address] [facility] [id number] [address] [place] [id number] Jan, [facility] [address] [place] [id number] [address] [place] [phone] Jan, Urinary tract infection, sit e unspecified N39.0 [facility] [address] [place] [id number] [address] [place] [address] Jan, [facility] [address] [facility] [id number] [address] [place] [address] Dec, [facility] [address] [place] [id number] [address] [place] [address] Dec, HPV (human papilloma virus) anogenital infection A63.0 ; Anxiety F41.9 and Gastroesophageal reflux disease without esophagitis K21.9 [facility] [address] [place] [id number] [address] [place] [address] Sep, Blood in stool 578.1 [facility] [address] [facility] [id number] [address] [place] [address] Aug, Blood in stool 578.1 [facility] [address] [place] [id number] [address] [place] [address] Aug, Anxiety 300.00 and Blood in stool 578.1 [facility] [address] [place] [id number] [address] [place] [address] July, [facility] [address] [place] [id number] [address] [place] [id number] July, Family history of diabetes m yaraitus V18.0 [facility] [address] [facility] [id number] [address] [place] [address] July, Family history of diabetes m ellitus V18.0 ; Family history of thyroid disease V18.19 ; Polyuria 788.42 ; Polydipsia 783.5 ; Alopecia 704.00 and Fatigue 780.79 [facility] [address] [id number] [address] [place] [phone] Jun, [facility] [address] [id number] [address] [place] [address] Jun, [facility] [address] [facility] [id number] [address] [place] [phone] Mar, [facility] [address] [facility] [id number] [address] [place] [phone] Mar, [facility] [address] [id number] [address] [place] [id number] Mar, [facility] [address] [id number] [address] [place] [id number] Mar, [facility] [address] [facility] [id number] [address] [place] [phone] Mar, [facility] [address] [facility] [id number] [address] [place] [id number] Mar, [facility] [address] [id number] [address] [place] [id number] Mar, [facility] [address] [id number] [address] [place] [id number] Mar, [facility] [address] [facility] [id number] [address] [place] [id number] Mar, [facility] [address] [facility] [id number] [address] [place] [id number] Mar, [facility] [address] [id number] [address] [place] [address], [place] [address] Feb, [facility] [address] [id number] [address] [place] [address], [place] [id number] Feb, [facility] [address] [id number] [address] [place] [address], [place] [address] Jan, [facility] [address] [id number] [address] [place] [address], [place] [address] Jan, [facility] [address] [id number] [address] [place] [address], [place] [address] Jan, [facility] [address] [id number] [address] [place] [address], [place] [address] Jan, [facility] [address] [id number] [address] [place] [address], [place] [address] Dec, [facility] [address] [id number] [address] [place] [address], [place] [id number] Dec, [facility] [address] [id number] [address] [place] [address], [place] [address] Nov, [facility] [address] [id number] [address] [place] [address], [place] [address] Nov, [facility] [address] [id number] [address] [place] [address], [place] [address] Oct, [facility] [address] [id number] [address] [place] [address], [place] [address] Oct, [facility] [address] [id number] [address] [place] [address], [place] [address] Oct, [facility] [address] [id number] [address] [place] [address], [place] [address] Oct, [facility] [address] [id number] [address] [place] [address], [place] [id number] Oct, [facility] [address] [id number] [address] [place] [address], [place] [address] Oct, [facility] [address] [id number] [address] [place] [address] Oct, [facility] [address] [id number] [address] [place] [address], [place] [address] Oct, [facility] [address] [id number] [address] [place] [address], [place] [address] Sep, [facility] [address] [id number] [address] [place] [address], [place] [address] Sep, [facility] [address] [id number] [address] [place] [address], [place] [address] Sep, [facility] [address] [id number] [address] [place] [address], [place] [address] Sep, [facility] [address] [id number] [address] [place] [address], [place] [address] Aug, [facility] [address] [id number] [address] [place] [address], [place] [address] Aug, [facility] [address] [id number] [address] [place] [address], [place] [address] Aug, [facility] [address] [id number] [address] [place] [address], [place] [address] Aug, [facility] [address] [id number] [address] [place] [address], [place] [address] July, [facility] [address] [id number] [address] [place] [address], [place] [address] July, [facility] [address] [id number] [address] [place] [address], [place] [address] July, [facility] [address] [id number] [address] [place] [address], [place] [address] July, [facility] [address] [id number] [address] [place] [address], [place] [address] July, [facility] [address] [id number] [address] [place] [address], [place] [address] July, [facility] [address] [id number] [address] [place] [address], [place] [address] 23 Jun, 2013 [facility] [address] [id number] [address] [place] [address], [place] [address] 23 Jun, 2013 [facility] [address] [id number] [address] [place] [address], [place] [address] 15 Jun, 2013 [facility] [address] [id number] [address] [place] [address], [place] [address] 15 Jun, 2013 [facility] [address] [id number] [address] [place] [address], [place] [address] 14 Jun, 2013 [facility] [address] [id number] [address] [place] [address], [place] [address] Jun, [facility] [address] [id number] [address] [place] [address], [place] [address] Jun, [facility] [address] [id number] [address] [place] [address], [place] [address] 14 Jun, 2013 [facility] [address] [id number] [address] [place] [address], [place] [address] May, [facility] [address] [id number] [address] [place] [address], [place] [address] May, [facility] [address] [id number] [address] [place] [address], [place] [address] May, [facility] [address] [id number] [address] [place] [address], [place] [address] Apr, [facility] [address] [id number] [address] [place] [address], [place] [address] Apr, [facility] [address] [id number] [address] [place] [address], [place] [address] Apr, [facility] [address] [id number] [address] [place] [address], [place] [address] Apr, [facility] [address] [id number] [address] [place] [address], [place] [address] Mar, [facility] [address] [id number] [address] [place] [address], [place] [address] Mar, [facility] [address] [id number] [address] [place] [address], [place] [address] Mar, [facility] [address] [id number] [address] [place] [address], [place] [address] Mar, [facility] [address] [id number] [address] [place] [address], [place] [address] Mar, [facility] [address] [id number] [address] [place] [address], [place] [address] Mar, [facility] [address] [id number] [address] [place] [address], [place] [address] Feb, [facility] [address] [id number] [address] [place] [address], [place] [address] Feb, [facility] [address] [id number] [address] [place] [address], [place] [address] Jan, [facility] [address] [id number] [address] [place] [address], [place] [address] Jan, [facility] [address] [id number] [address] [place] [address], [place] [address] Jan, [facility] [address] [id number] [address] [place] [address], [place] [address] Jan, [facility] [address] [id number] [address] [place] [address], [place] [address] Jan, [facility] [address] [id number] [address] [place] [address], [place] [address] Jan, [facility] [address] [id number] [address] [place] [address], [place] [address] Jan, [facility] [address] [id number] [address] [place] [address], [place] [address] Dec, [facility] [address] [id number] [address] [place] [address], [place] [address] Dec, [facility] [address] [id number] [address] [place] [address], [place] [address] Nov, [facility] [address] [id number] [address] [place] [address], [place] [address] Nov, [facility] [address] [id number] [address] [place] [address], [place] [address] Nov, [facility] [address] [id number] [address] [place] [address], [place] [address] Oct, [facility] [address] [id number] [address] [place] [address], [place] [address] Oct, [facility] [address] [id number] [address] [place] [address], [place] [address] Oct, [facility] [address] [id number] [address] [place] [address], [place] [address] Oct, [facility] [address] [id number] [address] [place] [address], [place] [address] Sep, [facility] [address] [id number] [address] [place] [address], [place] [address] Sep, [facility] [address] [id number] [address] [place] [address], [place] [address] Aug, [facility] [address] [id number] [address] [place] [address], [place] [address] Aug, [facility] [address] [id number] [address] [place] [address], [place] [address] Aug, [facility] [address] [id number] [address] [place] [address], [place] [address] Aug, [facility] [address] [id number] [address] [place] [address], [place] [address] July, [facility] [address] [id number] [address] [place] [address] July, [facility] [address] [id number] [address] [place] [address] July, [facility] [address] [id number] [address] [place] [address] July, [facility] [address] [id number] [address] [place] [address] Jun, [facility] [address] [id number] [address] [place] [address] Jun, [facility] [address] [facility] [id number] [address] [place] [address] Feb, [facility] [address] [facility] [id number] [address] [place] [address] Feb, [facility] [address] [facility] [id number] [address] [place] [id number] Mar, IMMUNIZATIONS No Known Immunizations SOCIAL HISTORY [...]
--- OUTSIDE RECORDS SUMMARY | 2019-08-16 14:14 | XMS REPORT ---
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 Name Role Phone MIRELLA MRAIA Unavailable PROBLEMS Type Condition ICD9-CM Code IFL80-KA Code Onset Dates Condition S tatus SNOMED Code Problem Shoulder pain, right M25.511 Active 14858902 Problem Hypertension, benign I10 Active 13189284 Problem Diabetes type 2, uncontrolled E11.65 Active 606780564 Problem Mood disorder F39 Active 450006 05 Problem Type 2 diabetes mellitus without complications E11 .9 Active 184924704 Problem Low back pain M54.5 Active 432709 005 Problem [facility] current use of insulin Z79.4 Active 323720152 Problem Acquired hypothyroidism E03.9 Active 863855565 Problem Diabetes type 2, controlled E11.9 Ac tive 55323780 Problem Controlled type 2 diabetes m ellitus without complication, without long- term current use of insulin E11.9 Active 146471869 Problem History of urethral stricture Z87.448 Active 762440132 Problem Cervical radiculopathy M54.12 Active 29893121 ALLERGIES No Information ENCOUNTERS Encounter Location Date Diagnosis [place] [id number] [place] [phone] Aug, Diabetes type 2, uncontrolle d E11.65 [facility] [address] [facility] [id number] [address] [place] [address] July, [facility] [address] [id number] [address] [place] [id number] July, Dental examination Z01.20 an d Caries K02.9 [facility] [address] [facility] [id number] [address] [place] [phone] Jun, Controlled type 2 diabetes m ellitus without complication, without long-term current use of insulin E11.9 [place] [address] [facility] [id number] [address] [place] [address] May, Controlled type 2 diabetes m erika without complication, without long-term current use of insulin E11.9 [facility] [address] [facility] [id number] [address] [place] [phone] Apr, [facility] [address] [facility] [id number] [address] [place] [phone] Mar, Controlled type 2 diabetes m erika without complication, without long-term current use of insulin E11.9 [place] [address] [facility] [id number] [address] [place] [address] Jan, [place] [address] [address] [facility] [id number] [address] [place] [address] Dec, Diabetes type 2, uncontrolle d E11.65 [place] [address] [address] [place] [id number] [address] [place] [id number] Dec, Type 2 diabetes mellitus wit hout complications E11.9 ; 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 and Cervicalgia M54.2 [place] [address] [facility] [id number] [address] [place] [phone] Dec, Type 2 diabetes mellitus wit hout complications E11.9 ; [facility] current use of insulin Z79.4 and Cervicalgia M54.2 [place] [address] [facility] [id number] [address] [place] [phone] Dec, Controlled type 2 diabetes m erika without complication, without long-term current use of insulin E11.9 [facility] [address] [facility] [id number] [address] [place] [phone] Nov, [facility] [address] [facility] [id number] [address] [place] [phone] Oct, Diabetes type 2, uncontrolle d E11.65 [facility] [address] [facility] [id number] [address] [place] [phone] Sep, Diabetes type 2, uncontrolle d E11.65 [facility] [address] [id number] [address] [place] [phone] Jun, Controlled type 2 diabetes m ellitus without complication, without long-term current use of insulin E11.9 [facility] [address] [id number] [address] [place] [phone] May, [facility] [address] [id number] [address] [place] [phone] 16 May, 2017 Radiculopathy of cervical re gion M54.12 [facility] [address] [id number] [address] [place] [phone] 14 May, 2017 Controlled type 2 diabetes m ellitus without complication, without long-term current use of insulin E11.9 [facility] [address] [id number] [address] [place] [address] May, [facility] [address] [id number] [address] [place] [phone] May, Controlled type 2 diabetes m ellitus without complication, without long-term current use of insulin E11.9 [facility] [address] [id number] [address] [place] [address] May, Controlled type 2 diabetes m ellitus without complication, without long-term current use of insulin E11.9 [facility] [address] [id number] [address] [place] [address] May, Controlled type 2 diabetes m ellitus without complication, without long-term current use of insulin E11.9 [facility] [address] [id number] [address] [place] [address] Apr, [facility] [address] [facility] [id number] [address] [place] [address] Apr, Controlled type 2 diabetes m ellitus without complication, without long-term current use of insulin E11.9 [facility] [address] [facility] [id number] [address] [place] [phone] Apr, [facility] [address] [id number] [address] [place] [address] Apr, Controlled type 2 diabetes m ellitus without complication, without long-term current use of insulin E11.9 [place] [address] [id number] [address] [place] [address] Mar, [place] [address] [facility] [id number] [address] [place] [address] Mar, Radiculopathy of cervical re gion M54.12 [place] [address] [id number] [address] [place] [phone] Mar, Controlled type 2 diabetes m ellitus without complication, without long-term current use of insulin E11.9 [place] [address] [facility] [id number] [address] [place] [address] Feb, Cervical radiculopathy M54.1 2 ; Acute cystitis without hematuria N30.00 and History of urethral stricture Z87.448 [place] [address] [id number] [address] [place] [phone] Feb, Controlled type 2 diabetes m ellitus without complication, without long-term current use of insulin E11.9 [place] [address] [facility] [id number] [address] [place] [phone] Feb, [place] [address] [id number] [address] [place] [phone] Jan, Diabetes type 2, uncontrolle d E11.65 [place] [address] [id number] [address] [place] [address] Jan, [place] [address] [id number] [address] [place] [address] Jan, Controlled type 2 diabetes m ellitus without complication, without long-term current use of insulin E11.9 ; Chest wall pain R07.89 and Thoracic spine pain M54.6 [place] [address] [facility] [id number] [address] [place] [phone] Dec, [facility] [address] [id number] [address] [place] [address], [place] [address] Dec, [facility] [address] [id number] [address] [place] [address], [place] [address] Nov, [facility] [address] [id number] [address] [place] [address], [place] [address] Nov, [facility] [address] [id number] [address] [place] [address], [place] [address] Nov, Trichomonas exposure Z20.2 [facility] [address] [id number] [address] [place] [address], [place] [address] Oct, [facility] [address] [id number] [address] [place] [phone] Oct, [facility] [address] [id number] [address] [place] [address], [place] [id number] Oct, [facility] [address] [id number] [address] [place] [phone] Oct, [facility] [address] [id number] [address] [place] [address], [place] [address] Sep, [facility] [address] [id number] [address] [place] [phone] Sep, [facility] [address] [id number] [address] [place] [id number] Aug, [facility] [address] [id number] [address] [place] [phone] Aug, [facility] [address] [id number] [address] [place] [id number] Aug, [facility] [address] [id number] [address] [place] [id number] Aug, [facility] [address] [id number] [address] [place] [address] July, Diabetes type 2, controlled E11.9 [facility] [address] [id number] [address] [place] [address], [place] [id number] July, [facility] [address] [id number] [address] [place] [phone] July, [facility] [address] [id number] [address] [place] [address], [place] [address] July, [facility] [address] [id number] [address] [place] [address], [place] [address] July, [facility] [address] [id number] [address] [place] [address], [place] [address] Jun, [facility] [address] [id number] [address] [place] [address], [place] [id number] Jun, [facility] [address] [id number] [address] [place] [phone] May, [facility] [address] [id number] [address] [place] [phone] May, [facility] [address] [id number] [address] [place] [phone] May, [facility] [address] [id number] [address] [place] [address] May, Controlled type 2 diabetes m ellitus without complication, without long-term current use of insulin E11.9 [facility] [address] [id number] [address] [place] [phone] 15 Apr, 2016 [facility] [address] [id number] [address] [place] [phone] Apr, [facility] [address] [id number] [address] [place] [phone] Mar, [facility] [address] [id number] [address] [place] [phone] Mar, [facility] [address] [id number] [address] [place] [phone] Feb, [facility] [address] [id number] [address] [place] [phone] Feb, [facility] [address] [id number] [address] [place] [phone] Jan, [facility] [address] [id number] [address] [place] [phone] Jan, [facility] [address] [id number] [address] [place] [phone] Jan, [facility] [address] [id number] [address] [place] [phone] Dec, [facility] [address] [id number] [address] [place] [id number] Dec, [facility] [address] [id number] [address] [place] [phone] Dec, [facility] [address] [id number] [address] [place] [address] Nov, Diabetes type 2, uncontrolle d E11.65 [facility] [address] [id number] [address] [place] [phone] 14 Nov, 2015 [facility] [address] [id number] [address] [place] [id number] Nov, [facility] [address] [id number] [address] [place] [id number] Oct, [facility] [address] [id number] [address] [place] [phone] Oct, [facility] [address] [id number] [address] [place] [phone] Sep, Controlled type 2 diabetes m ellitus without complication, without long-term current use of insulin E11.9 [facility] [address] [id number] [address] [place] [address] Sep, [facility] [address] [id number] [address] [place] [phone] Sep, [facility] [address] [id number] [address] [place] [address] Sep, [facility] [address] [id number] [address] [place] [phone] Sep, [facility] [address] [id number] [address] [place] [id number] Aug, Diabetes type 2, controlled E11.9 ; Anxiety F41.9 ; Carpal tunnel syndrome, left upper limb G56.02 and Carpal tunnel syndrome, right upper limb G56.01 [facility] [address] [id number] [address] [place] [address] Aug, Urethritis N34.2 [facility] [address] [id number] [address] [place] [phone] Aug, [facility] [address] [id number] [address] [place] [address] July, Genital warts A63.0 [facility] [address] [id number] [address] [place] [address] July, [facility] [address] [id number] [address] [place] [phone] July, Genital warts A63.0 [facility] [address] [id number] [address] [place] [address] July, Anxiety F41.9 [facility] [address] [id number] [address] [place] [address] Jun, Genital warts A63.0 [facility] [address] [id number] [address] [place] [phone] Jun, Anxiety F41.9 [facility] [address] [id number] [address] [place] [address] May, Genital warts A63.0 and Diab etes type 2, uncontrolled E11.65 [facility] [address] [id number] [address] [place] [address] May, [facility] [address] [facility] [id number] [address] [place] [phone] May, [facility] [address] [facility] [id number] [address] [place] [address] Apr, [facility] [address] [facility] [id number] [address] [place] [id number] Apr, [facility] [address] [facility] [id number] [address] [place] [phone] Apr, Diabetes type 2, controlled E11.9 [facility] [address] [facility] [id number] [address] [place] [phone] Apr, Genital warts A63.0 [facility] [address] [facility] [id number] [address] [place] [phone] Apr, [facility] [address] [facility] [id number] [address] [place] [id number] Apr, Diabetes type 2, uncontrolle d E11.65 and Genital warts A63.0 [facility] [address] [facility] [id number] [address] [place] [address] Apr, [facility] [address] [facility] [id number] [address] [place] [address] Mar, [facility] [address] [facility] [id number] [address] [place] [address] Mar, [facility] [address] [place] [id number] [address] [place] [address] Mar, Family history of diabetes m ellitus V18.0 and Weight loss R63.4 [facility] [address] [facility] [id number] [address] [place] [address] Mar, Genital warts A63.0 and Fami ly history of diabetes mellitus V18.0 [facility] [address] [facility] [id number] [address] [place] [phone] Feb, [facility] [address] [facility] [id number] [address] [place] [phone] Jan, [facility] [address] [facility] [id number] [address] [place] [address] Jan, Perianal venereal warts A63. 0 [facility] [address] [facility] [id number] [address] [place] [address] Jan, Urethritis N34.2 and Anxiety F41.9 [facility] [address] [facility] [id number] [address] [place] [address] Jan, [facility] [address] [place] [id number] [address] [place] [address] Jan, Urinary tract infection, sit e unspecified N39.0 [facility] [address] [place] [id number] [address] [place] [address] Jan, [facility] [address] [facility] [id number] [address] [place] [address] Dec, [facility] [address] [place] [id number] [address] [place] [phone] Dec, HPV (human papilloma virus) anogenital infection A63.0 ; Anxiety F41.9 and Gastroesophageal reflux disease without esophagitis K21.9 [facility] [address] [place] [id number] [address] [place] [address] Sep, Blood in stool 578.1 [facility] [address] [facility] [id number] [address] [place] [phone] Aug, Blood in stool 578.1 [facility] [address] [place] [id number] [address] [place] [address] Aug, Anxiety 300.00 and Blood in stool 578.1 [facility] [address] [place] [id number] [address] [place] [phone] July, [facility] [address] [place] [id number] [address] [place] [phone] July, Family history of diabetes m yaraitus V18.0 [facility] [address] [facility] [id number] [address] [place] [address] July, Family history of diabetes m ellitus V18.0 ; Family history of thyroid disease V18.19 ; Polyuria 788.42 ; Polydipsia 783.5 ; Alopecia 704.00 and Fatigue 780.79 [facility] [address] [id number] [address] [place] [phone] Jun, [facility] [address] [id number] [address] [place] [phone] Jun, [facility] [address] [facility] [id number] [address] [place] [address] Mar, [facility] [address] [facility] [id number] [address] [place] [phone] Mar, [facility] [address] [id number] [address] [place] [phone] Mar, [facility] [address] [id number] [address] [place] [address] Mar, [facility] [address] [facility] [id number] [address] [place] [phone] Mar, [facility] [address] [facility] [id number] [address] [place] [id number] Mar, [facility] [address] [id number] [address] [place] [id number] Mar, [facility] [address] [id number] [address] [place] [id number] Mar, [facility] [address] [facility] [id number] [address] [place] [id number] Mar, [facility] [address] [facility] [id number] [address] [place] [phone] Mar, [facility] [address] [id number] [address] [place] [address], [place] [id number] Feb, [facility] [address] [id number] [address] [place] [address], [place] [id number] Feb, [facility] [address] [id number] [address] [place] [address], [place] [id number] Jan, [facility] [address] [id number] [address] [place] [address], [place] [id number] Jan, [facility] [address] [id number] [address] [place] [address], [place] [id number] Jan, [facility] [address] [id number] [address] [place] [address], [place] [id number] Jan, [facility] [address] [id number] [address] [place] [address], [place] [id number] Dec, [facility] [address] [id number] [address] [place] [address], [place] [id number] Dec, [facility] [address] [id number] [address] [place] [address], [place] [id number] Nov, [facility] [address] [id number] [address] [place] [address], [place] [id number] Nov, [facility] [address] [id number] [address] [place] [address], [place] [id number] Oct, [facility] [address] [id number] [address] [place] [address], [place] [id number] Oct, [facility] [address] [id number] [address] [place] [address], [place] [id number] Oct, [facility] [address] [id number] [address] [place] [address], [place] [id number] Oct, [facility] [address] [id number] [address] [place] [address], [place] [id number] Oct, [facility] [address] [id number] [address] [place] [address], [place] [id number] Oct, [facility] [address] [id number] [address] [place] [id number] Oct, [facility] [address] [id number] [address] [place] [address], [place] [id number] Oct, [facility] [address] [id number] 55 [place] [address], [place] [id number] Sep, [facility] [address] [id number] [address] [place] [address], [place] [id number] Sep, [facility] [address] [id number] [address] [place] [address], [place] [id number] Sep, [facility] [address] [id number] [address] [place] [address], [place] [id number] Sep, [facility] [address] [id number] [address] [place] [address], [place] [id number] Aug, [facility] [address] [id number] [address] [place] [address], [place] [id number] Aug, [facility] [address] [id number] [address] [place] [address], [place] [id number] Aug, [facility] [address] [id number] [address] [place] [address], [place] [id number] Aug, [facility] [address] [id number] [address] [place] [address], [place] [id number] July, [facility] [address] [id number] [address] [place] [address], [place] [id number] July, [facility] [address] [id number] [address] [place] [address], [place] [id number] July, [facility] [address] [id number] [address] [place] [address], [place] [id number] July, [facility] [address] [id number] [address] [place] [address], [place] [id number] July, [facility] [address] [id number] [address] [place] [address], [place] [id number] July, [facility] [address] [id number] [address] [place] [address], [place] [id number] 23 Jun, 2013 [facility] [address] [id number] [address] [place] [address], [place] [id number] 23 Jun, 2013 [facility] [address] [id number] [address] [place] [address], [place] [id number] 15 Jun, 2013 [facility] [address] [id number] [address] [place] [address], [place] [id number] 15 Jun, 2013 [facility] [address] [id number] [address] [place] [address], [place] [id number] 14 Jun, 2013 [facility] [address] [id number] [address] [place] [address], [place] [id number] Jun, [facility] [address] [id number] [address] [place] [address], [place] [id number] Jun, [facility] [address] [id number] [address] [place] [address], [place] [id number] 14 Jun, 2013 [facility] [address] [id number] [address] [place] [address], [place] [id number] May, [facility] [address] [id number] [address] [place] [address], [place] [id number] May, [facility] [address] [id number] [address] [place] [address], [place] [id number] May, [facility] [address] [id number] [address] [place] [address], [place] [id number] Apr, [facility] [address] [id number] [address] [place] [address], [place] [id number] Apr, [facility] [address] [id number] [address] [place] [address], [place] [id number] Apr, [facility] [address] [id number] [address] [place] [address], [place] [id number] Apr, [facility] [address] [id number] [address] [place] [address], [place] [id number] Mar, [facility] [address] [id number] [address] [place] [address], [place] [id number] Mar, [facility] [address] [id number] [address] [place] [address], [place] [id number] Mar, [facility] [address] [id number] [address] [place] [address], [place] [id number] Mar, [facility] [address] [id number] [address] [place] [address], [place] [id number] Mar, [facility] [address] [id number] [address] [place] [address], [place] [id number] Mar, [facility] [address] [id number] [address] [place] [address], [place] [id number] Feb, [facility] [address] [id number] [address] [place] [address], [place] [id number] Feb, [facility] [address] [id number] [address] [place] [address], [place] [id number] Jan, [facility] [address] [id number] [address] [place] [address], [place] [id number] Jan, [facility] [address] [id number] [address] [place] [address], [place] [id number] Jan, [facility] [address] [id number] [address] [place] [address], [place] [id number] Jan, [facility] [address] [id number] [address] [place] [address], [place] [id number] Jan, [facility] [address] [id number] [address] [place] [address], [place] [id number] Jan, [facility] [address] [id number] [address] [place] [address], [place] [id number] Jan, [facility] [address] [id number] [address] [place] [address], [place] [id number] Dec, [facility] [address] [id number] [address] [place] [address], [place] [id number] Dec, [facility] [address] [id number] [address] [place] [address], [place] [id number] Nov, [facility] [address] [id number] [address] [place] [address], [place] [id number] Nov, [facility] [address] [id number] [address] [place] [address], [place] [id number] Nov, [facility] [address] [id number] [address] [place] [address], [place] [id number] Oct, [facility] [address] [id number] [address] [place] [address], [place] [id number] Oct, [facility] [address] [id number] [address] [place] [address], [place] [id number] Oct, [facility] [address] [id number] [address] [place] [address], [place] [id number] Oct, [facility] [address] [id number] [address] [place] [address], [place] [id number] Sep, [facility] [address] [id number] [address] [place] [address], [place] [id number] Sep, [facility] [address] [id number] [address] [place] [address], [place] [id number] Aug, [facility] [address] [id number] [address] [place] [address], [place] [id number] Aug, [facility] [address] [id number] [address] [place] [address], [place] [id number] Aug, [facility] [address] [id number] [address] [place] [address], [place] [id number] Aug, [facility] [address] [id number] [address] [place] [address], [place] [id number] July, [facility] [address] [id number] [address] [place] [id number] July, [facility] [address] [id number] [address] [place] [id number] July, [facility] [address] [id number] [address] [place] [id number] July, [facility] [address] [id number] [address] [place] [id number] Jun, [facility] [address] [id number] [address] [place] [id number] Jun, [facility] [address] [facility] [id number] [address] [place] [id number] Feb, [facility] [address] [facility] [id number] [address] [place] [phone] Feb, [facility] [address] [facility] [id number] [address] [place] [phone] Mar, IMMUNIZATIONS No Known Immunizations SOCIAL HISTORY [...]
--- OUTSIDE RECORDS SUMMARY | 2019-08-16 14:14 | XMS REPORT ---
Author Author Joseph MARIA Organization [facility] Address [address] [place] [address] Care Team Providers Care Base Loader Name Role Phone MIRELLA MARIA Unavailable PROBLEMS Type Condition ICD9-CM Code UOM34-KQ Code Onset Dates Condition S tatus SNOMED Code Problem Shoulder pain, right M25.511 Active 66190673 Problem Hypertension, benign I10 Active 09537611 Problem Diabetes type 2, uncontrolled E11.65 Active 472585500 Problem Mood disorder F39 Active 592984 05 Problem Type 2 diabetes mellitus without complications E11 .9 Active 554923608 Problem Low back pain M54.5 Active 882181 005 Problem 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 Active 604775135 Problem Acquired hypothyroidism E03.9 Active 995359786 Problem Diabetes type 2, controlled E11.9 Ac tive 33889478 Problem Controlled type 2 diabetes m ellitus without complication, without long- term current use of insulin E11.9 Active 992782558 Problem History of urethral stricture Z87.448 Active 566414114 Problem Cervical radiculopathy M54.12 Active 61620249 ALLERGIES No Information ENCOUNTERS Encounter Location Date Diagnosis [facility] [address] [facility] [id number] [address] [place] [address] Nov, [facility] [address] [place] [id number] [address] [place] [address] Aug, Diabetes type 2, uncontrolle d E11.65 [facility] [address] [facility] [id number] [address] [place] [address] July, [facility] [address] [facility] [id number] [address] [place] [id number] July, Dental examination Z01.20 an d Caries K02.9 [facility] [address] [place] [id number] [address] [place] [address] Jun, Controlled type 2 diabetes m ellitus without complication, without long-term current use of insulin E11.9 [facility] [address] [facility] [id number] [address] [place] [address] May, Controlled type 2 diabetes m ellitus without complication, without long-term current use of insulin E11.9 [facility] [address] [facility] [id number] [address] [place] [address] Apr, [facility] [address] [facility] [id number] [address] [place] [address] Mar, Controlled type 2 diabetes m ellitus without complication, without long-term current use of insulin E11.9 [place] [address] [facility] [id number] [address] [place] [address] Jan, [place] [address] [place] [id number] [address] [place] [address] Dec, Diabetes type 2, uncontrolle d E11.65 [facility] [address] [facility] [id number] [address] [place] [address] Dec, Type 2 diabetes mellitus wit hout complications E11.9 ; 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 and Cervicalgia M54.2 [place] [address] [facility] [id number] [address] [place] [address] Dec, Type 2 diabetes mellitus wit hout complications E11.9 ; 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 and Cervicalgia M54.2 [place] [address] [facility] [id number] [address] [place] [phone] Dec, Controlled type 2 diabetes m ellitus without complication, without long-term current use of insulin E11.9 [facility] [address] [facility] [id number] [address] [place] [address] Nov, [facility] [address] [facility] [id number] [address] [place] [phone] Oct, Diabetes type 2, uncontrolle d E11.65 [place] [address] [facility] [id number] [address] [place] [address] Sep, Diabetes type 2, uncontrolle d E11.65 [place] [address] [facility] [id number] [address] [place] [phone] Jun, Controlled type 2 diabetes m ellitus without complication, without long-term current use of insulin E11.9 [place] [address] [facility] [id number] [address] [place] [phone] May, [place] [address] [facility] [id number] [address] [place] [address] May, Radiculopathy of cervical re gion M54.12 [place] [address] [facility] [id number] [address] [place] [address] May, Controlled type 2 diabetes m ellitus without complication, without long-term current use of insulin E11.9 [place] [address] [facility] [id number] [address] [place] [address] May, [place] [address] [id number] [address] [place] [address] May, Controlled type 2 diabetes m ellitus without complication, without long-term current use of insulin E11.9 [place] [address] [facility] [id number] [address] [place] [address] May, Controlled type 2 diabetes m ellitus without complication, without long-term current use of insulin E11.9 [place] [address] [facility] [id number] [address] [place] [address] May, Controlled type 2 diabetes m ellitus without complication, without long-term current use of insulin E11.9 [place] [address] [facility] [id number] [address] [place] [address] Apr, [place] [address] [facility] [id number] [address] [place] [address] Apr, Controlled type 2 diabetes m ellitus without complication, without long-term current use of insulin E11.9 [place] [address] [id number] [address] [place] [id number] 07 Apr, 2017 [place] [address] [facility] [id number] [address] [place] [address] Apr, Controlled type 2 diabetes m ellitus without complication, without long-term current use of insulin E11.9 [place] [address] [place] [id number] [address] [place] [address] Mar, [place] [address] [facility] [id number] [address] [place] [address] Mar, Radiculopathy of cervical re gion M54.12 [place] [address] [facility] [id number] [address] [place] [address] Mar, Controlled type 2 diabetes m ellitus without complication, without long-term current use of insulin E11.9 [place] [address] [place] [id number] [address] [place] [address] Feb, Cervical radiculopathy M54.1 2 ; Acute cystitis without hematuria N30.00 and History of urethral stricture Z87.448 [place] [address] [place] [id number] [address] [place] [address] Feb, Controlled type 2 diabetes m ellitus without complication, without long-term current use of insulin E11.9 [place] [address] [place] [id number] [address] [place] [address] Feb, [place] [address] [facility] [id number] [address] [place] [address] Jan, Diabetes type 2, uncontrolle d E11.65 [place] [address] [facility] [id number] [address] [place] [id number] 15 Jan, 2017 [place] [address] [place] [id number] [place] [id number] 13 Jan, 2017 Controlled type 2 diabetes m ellitus without complication, without long-term current use of insulin E11.9 ; Chest wall pain R07.89 and Thoracic spine pain M54.6 [facility] [address] [id number] [address] [place] [address], [place] [address] Dec, [facility] [address] [id number] [address] [place] [address], [place] [address] Dec, [facility] [address] [id number] [address] [place] [address], [place] [address] Nov, [facility] [address] [id number] [address] [place] [address], [place] [address] Nov, [facility] [address] [id number] [address] [place] [address], [place] [address] Nov, Trichomonas exposure Z20.2 [facility] [address] [id number] [address] [place] [id number] Oct, [facility] [address] [id number] [address] [place] [phone] Oct, [facility] [address] [id number] [address] [place] [address] Oct, [facility] [address] [id number] [address] [place] [address] Oct, [facility] [address] [id number] [address] [place] [address] Sep, [facility] [address] [id number] [address] [place] [address] Sep, [facility] [address] [id number] [address] [place] [phone] Aug, [facility] [address] [id number] [address] [place] [address], [place] [address] Aug, [facility] [address] [id number] [address] [place] [address] Aug, [facility] [address] [id number] [address] [place] [address] Aug, [facility] [address] [id number] [address] [place] [id number] 11 Jul, 2016 Diabetes type 2, controlled E11.9 [facility] [address] [id number] [address] [place] [address], [place] [address] 11 Jul, 2016 [facility] [address] [id number] [address] [place] [address], [place] [address] July, [facility] [address] [id number] [address] [place] [address], [place] [address] July, [facility] [address] [id number] [address] [place] [address], [place] [address] July, [facility] [address] [id number] [address] [place] [address], [place] [address] Jun, [facility] [address] [id number] [address] [place] [address] Jun, [facility] [address] [id number] [address] [place] [phone] May, [facility] [address] [id number] [address] [place] [address] May, [facility] [address] [id number] [address] [place] [id number] May, [facility] [address] [id number] [address] [place] [address] May, Controlled type 2 diabetes m ellitus without complication, without long-term current use of insulin E11.9 [facility] [address] [id number] [address] [place] [id number] 15 Apr, 2016 [facility] [address] [id number] [address] [place] [address] Apr, [facility] [address] [id number] [address] [place] [address] Mar, [facility] [address] [id number] [address] [place] [address] Mar, [facility] [address] [id number] [address] [place] [address] Feb, [facility] [address] [id number] [address] [place] [address] Feb, [facility] [address] [id number] [address] [place] [address] Jan, [facility] [address] [id number] [address] [place] [address] Jan, [facility] [address] [id number] [address] [place] [phone] Jan, [facility] [address] [id number] [address] [place] [address] Dec, [facility] [address] [id number] [address] [place] [address] Dec, [facility] [address] [id number] [address] [place] [id number] Dec, [facility] [address] [id number] [address] [place] [address] Nov, Diabetes type 2, uncontrolle d E11.65 [facility] [address] [id number] [address] [place] [address] Nov, [facility] [address] [id number] [address] [place] [address] Nov, [facility] [address] [id number] [address] [place] [id number] Oct, [facility] [address] [id number] [address] [place] [address] Oct, [facility] [address] [id number] [address] [place] [phone] Sep, Controlled type 2 diabetes m ellitus without complication, without long-term current use of insulin E11.9 [facility] [address] [id number] [address] [place] [address] Sep, [facility] [address] [id number] [address] [place] [address] Sep, [facility] [address] [id number] [address] [place] [address] Sep, [facility] [address] [id number] [address] [place] [address] Sep, [facility] [address] [id number] [address] [place] [address] Aug, Diabetes type 2, controlled E11.9 ; Anxiety F41.9 ; Carpal tunnel syndrome, left upper limb G56.02 and Carpal tunnel syndrome, right upper limb G56.01 [facility] [address] [id number] [address] [place] [address] Aug, Urethritis N34.2 [facility] [address] [id number] [address] [place] [address] Aug, [facility] [address] [id number] [address] [place] [address] July, Genital warts A63.0 [facility] [address] [id number] [address] [place] [address] July, [facility] [address] [id number] [address] [place] [address] July, Genital warts A63.0 [facility] [address] [id number] [address] [place] [address] July, Anxiety F41.9 [facility] [address] [id number] [address] [place] [address] Jun, Genital warts A63.0 [facility] [address] [id number] [address] [place] [phone] 08 Jun, 2015 Anxiety F41.9 [facility] [address] [id number] [address] [place] [address] May, Genital warts A63.0 and Diab etes type 2, uncontrolled E11.65 [facility] [address] [id number] [address] [place] [address] May, [facility] [address] [id number] [address] [place] [address] May, [facility] [address] [id number] [address] [place] [address] Apr, [facility] [address] [id number] [address] [place] [address] Apr, [facility] [address] [facility] [id number] [address] [place] [address] Apr, Diabetes type 2, controlled E11.9 [facility] [address] [id number] [address] [place] [address] Apr, Genital warts A63.0 [facility] [address] [id number] [address] [place] [address] Apr, [facility] [address] [id number] [address] [place] [address] Apr, Diabetes type 2, uncontrolle d E11.65 and Genital warts A63.0 [facility] [address] [id number] [address] [place] [address] Apr, [facility] [address] [id number] [address] [place] [address] Mar, [facility] [address] [id number] [address] [place] [phone] Mar, [facility] [address] [facility] [id number] [address] [place] [phone] Mar, Family history of diabetes m ellitus V18.0 and Weight loss R63.4 [facility] [address] [facility] [id number] [address] [place] [address] Mar, Genital warts A63.0 and Fami ly history of diabetes mellitus V18.0 [facility] [address] [facility] [id number] [address] [place] [address] Feb, [facility] [address] [facility] [id number] [address] [place] [id number] Jan, [facility] [address] [facility] [id number] [address] [place] [address] Jan, Perianal venereal warts A63. 0 [facility] [address] [facility] [id number] [address] [place] [address] Jan, Urethritis N34.2 and Anxiety F41.9 [place] [address] [facility] [id number] [address] [place] [address] Jan, [place] [address] [place] [id number] [place] [address] Jan, Urinary tract infection, sit e unspecified N39.0 [facility] [address] [facility] [id number] [address] [place] [address] Jan, [facility] [address] [facility] [id number] [address] [place] [address] Dec, [facility] [address] [facility] [id number] [address] [place] [id number] Dec, HPV (human papilloma virus) anogenital infection A63.0 ; Anxiety F41.9 and Gastroesophageal reflux disease without esophagitis K21.9 [facility] [address] [facility] [id number] [address] [place] [address] Sep, Blood in stool 578.1 [facility] [address] [facility] [id number] [address] [place] [address] Aug, Blood in stool 578.1 [facility] [address] [facility] [id number] [address] [place] [address] Aug, Anxiety 300.00 and Blood in stool 578.1 [facility] [address] [facility] [id number] [address] [place] [address] July, [facility] [address] [id number] [address] [place] [address] July, Family history of diabetes joseph livingstonitus V18.0 [facility] [address] [facility] [id number] [address] [place] [address] July, Family history of diabetes m ellitus V18.0 ; Family history of thyroid disease V18.19 ; Polyuria 788.42 ; Polydipsia 783.5 ; Alopecia 704.00 and Fatigue 780.79 [facility] [address] [id number] [address] [place] [phone] Jun, [facility] [address] [id number] [address] [place] [address] Jun, [facility] [address] [id number] [address] [place] [phone] Mar, [facility] [address] [id number] [address] [place] [id number] Mar, [facility] [address] [id number] [address] [place] [id number] Mar, [facility] [address] [facility] [id number] [address] [place] [address] Mar, [facility] [address] [id number] [address] [place] [address] Mar, [facility] [address] [id number] [address] [place] [address] Mar, [facility] [address] [id number] [address] [place] [phone] Mar, [facility] [address] [id number] [address] [place] [phone] Mar, [facility] [address] [id number] [address] [place] [id number] Mar, [facility] [address] [id number] [address] [place] [address], [place] [address] Mar, [facility] [address] [id number] [address] [place] [address], [place] [address] Feb, [facility] [address] [id number] [address] [place] [address], [place] [address] Feb, [facility] [address] [id number] [address] [place] [address], [place] [address] Jan, [facility] [address] [id number] [address] [place] [address], [place] [address] Jan, [facility] [address] [id number] [address] [place] [address], [place] [address] Jan, [facility] [address] [id number] [address] [place] [address], [place] [address] Jan, [facility] [address] [id number] [address] [place] [address], [place] [address] Dec, [facility] [address] [id number] [address] [place] [address], [place] [address] Dec, [facility] [address] [id number] [address] [place] [address], [place] [address] Nov, [facility] [address] [id number] [address] [place] [address], [place] [address] Nov, [facility] [address] [id number] [address] [place] [address], [place] [address] Oct, [facility] [address] [id number] [address] [place] [address], [place] [address] Oct, [facility] [address] [id number] [address] [place] [address], [place] [address] Oct, [facility] [address] [id number] [address] [place] [address], [place] [address] Oct, [facility] [address] [id number] [address] [place] [address], [place] [address] Oct, [facility] [address] [id number] [facility] [place] [address] Oct, [facility] [address] [id number] [address] [place] [address], [place] [address] Oct, [facility] [address] [id number] [address] [place] [address], [place] [address] Oct, [facility] [address] [id number] [address] [place] [address], [place] [address] Sep, [facility] [address] [id number] [address] [place] [address], [place] [address] Sep, [facility] [address] [id number] [address] [place] [address], [place] [address] Sep, [facility] [address] [id number] [address] [place] [address], [place] [address] Sep, [facility] [address] [id number] [address] [place] [address], [place] [address] Aug, [facility] [address] [id number] [address] [place] [address], [place] [address] Aug, [facility] [address] [id number] [address] [place] [address], [place] [address] Aug, [facility] [address] [id number] [address] [place] [address], [place] [address] Aug, [facility] [address] [id number] [address] [place] [address], [place] [address] July, [facility] [address] [id number] [address] [place] [address], [place] [address] July, [facility] [address] [id number] [address] [place] [address], [place] [address] July, [facility] [address] [id number] [address] [place] [address], [place] [address] July, [facility] [address] [id number] [address] [place] [address], [place] [address] July, [facility] [address] [id number] [address] [place] [address], [place] [address] July, [facility] [address] [id number] [address] [place] [address], [place] [address] 23 Jun, 2013 [facility] [address] [id number] [address] [place] [address], [place] [address] 23 Jun, 2013 [facility] [address] [id number] [address] [place] [address], [place] [address] 15 Jun, 2013 [facility] [address] [id number] [address] [place] [address], [place] [address] 15 Jun, 2013 [facility] [address] [id number] [address] [place] [address], [place] [address] 14 Jun, 2013 [facility] [address] [id number] [address] [place] [address], [place] [address] Jun, [facility] [address] [id number] [address] [place] [address], [place] [address] 14 Jun, 2013 [facility] [address] [id number] [address] [place] [address], [place] [address] Jun, [facility] [address] [id number] [address] [place] [address], [place] [address] May, [facility] [address] [id number] [address] [place] [address], [place] [address] May, [facility] [address] [id number] [address] [place] [address], [place] [address] 18 May, 2013 [facility] [address] [id number] [address] [place] [address], [place] [address] Apr, [facility] [address] [id number] [address] [place] [address], [place] [address] Apr, [facility] [address] [id number] [address] [place] [address], [place] [address] Apr, [facility] [address] [id number] [address] [place] [address], [place] [address] Apr, [facility] [address] [id number] [address] [place] [address], [place] [address] Mar, [facility] [address] [id number] [address] [place] [address], [place] [address] Mar, [facility] [address] [id number] [address] [place] [address], [place] [address] Mar, [facility] [address] [id number] [address] [place] [address], [place] [address] Mar, [facility] [address] [id number] [address] [place] [address], [place] [address] Mar, [facility] [address] [id number] [address] [place] [address], [place] [address] Mar, [facility] [address] [id number] [address] [place] [address], [place] [address] Feb, [facility] [address] [id number] [address] [place] [address], [place] [address] Feb, [facility] [address] [id number] [address] [place] [address], [place] [address] Jan, [facility] [address] [id number] [address] [place] [address], [place] [address] Jan, [facility] [address] [id number] [address] [place] [address], [place] [address] Jan, [facility] [address] [id number] [address] [place] [address], [place] [address] Jan, [facility] [address] [id number] [address] [place] [address], [place] [address] Jan, [facility] [address] [id number] [address] [place] [address], [place] [address] Jan, [facility] [address] [id number] [address] [place] [address], [place] [address] Jan, [facility] [address] [id number] [address] [place] [address], [place] [address] Dec, [facility] [address] [id number] [address] [place] [address], [place] [address] Dec, [facility] [address] [id number] [address] [place] [address], [place] [address] Nov, [facility] [address] [id number] [address] [place] [address], [place] [address] Nov, [facility] [address] [id number] [address] [place] [address], [place] [address] Nov, [facility] [address] [id number] [address] [place] [address], [place] [address] Oct, [facility] [address] [id number] [address] [place] [address], [place] [address] Oct, [facility] [address] [id number] [address] [place] [address], [place] [address] Oct, [facility] [address] [id number] [address] [place] [address], [place] [address] Oct, [facility] [address] [id number] [address] [place] [address], [place] [address] Sep, [facility] [address] [id number] [address] [place] [address], [place] [address] Sep, [facility] [address] [id number] [address] [place] [address], [place] [address] Aug, [facility] [address] [id number] [address] [place] [address], [place] [address] Aug, [facility] [address] [id number] [address] [place] [address], [place] [address] Aug, [facility] [address] [id number] [address] [place] [address], [place] [address] Aug, [facility] [address] [id number] [address] [place] [address] July, [facility] [address] [id number] [address] [place] [address] July, [facility] [address] [id number] [address] [place] [address] July, [facility] [address] [id number] [address] [place] [address] July, [facility] [address] [id number] [address] [place] [address] Jun, [facility] [address] [id number] [address] [place] [address] Jun, [facility] [address] [id number] [address] [place] [address] Feb, [facility] [address] [id number] [address] [place] [address] Feb, [facility] [address] [id number] [address] [place] [address] Mar, IMMUNIZATIONS No Known Immunizations SOCIAL HISTORY Never Assessed REASON FOR VISIT PLAN OF CARE VITAL SIGNS Height 68 in 2014-04-12 Weight 236 lbs 2014-04-12 Temperature 98.7 degrees Fahrenheit 2014-04-12 Heart Rate 80 bpm 2014-04-12 Respiratory Rate 20 2014-04-12 Blood pressure systolic 160 mmHg 2014-04-12 Blood pressure diastolic 100 mmHg 2014-04-12 MEDICATIONS Unknown Medications RESULTS No Results PROCEDURES Procedure Date Ordered Result Body Site DRUG SCREEN, QUALITATE/MULTI Apr 12, 2014 INSTRUCTIONS MEDICATIONS ADMINISTERED No Known Medications MEDICAL [...]
--- OUTSIDE RECORDS SUMMARY | 2019-08-16 14:15 | XMS REPORT ---
Author Author Joseph MARIA Organization [facility] Address [address] [place] [address] Care Team Providers Care Production Editor Name Role Phone MIRELLA MARIA Unavailable PROBLEMS Type Condition ICD9-CM Code CXU78-SE Code Onset Dates Condition S tatus SNOMED Code Problem Shoulder pain, right M25.511 Active 72270092 Problem Hypertension, benign I10 Active 09520964 Problem Diabetes type 2, uncontrolled E11.65 Active 865705773 Problem Mood disorder F39 Active 176272 05 Problem Type 2 diabetes mellitus without complications E11 .9 Active 459933311 Problem Low back pain M54.5 Active 253422 005 Problem FPC current use of insulin Z79.4 Active 892488972 Problem Acquired hypothyroidism E03.9 Active 871086333 Problem Diabetes type 2, controlled E11.9 Ac tive 74282708 Problem Controlled type 2 diabetes m ellitus without complication, without long- term current use of insulin E11.9 Active 849450329 Problem History of urethral stricture Z87.448 Active 855717834 Problem Cervical radiculopathy M54.12 Active 45492206 ALLERGIES No Information ENCOUNTERS Encounter Location Date Diagnosis [place] [id number] [place] [address] Aug, Diabetes type 2, uncontrolle d E11.65 [facility] [address] [facility] [id number] [address] [place] [address] July, [facility] [address] [id number] [address] [place] [id number] July, Dental examination Z01.20 an d Caries K02.9 [facility] [address] [facility] [id number] [address] [place] [address] Jun, Controlled type 2 diabetes m ellitus without complication, without long-term current use of insulin E11.9 [facility] [address] [facility] [id number] [address] [place] [address] May, Controlled type 2 diabetes m erika without complication, without long-term current use of insulin E11.9 [facility] [address] [facility] [id number] [address] [place] [address] Apr, [facility] [address] [facility] [id number] [address] [place] [address] Mar, Controlled type 2 diabetes m erika without complication, without long-term current use of insulin E11.9 [place] [address] [facility] [id number] [address] [place] [address] Jan, [place] [address] [facility] [id number] [address] [place] [address] Dec, Diabetes type 2, uncontrolle d E11.65 [place] [address] [place] [id number] [address] [place] [address] Dec, Type 2 diabetes mellitus wit hout complications E11.9 ; 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 and Cervicalgia M54.2 [place] [address] [facility] [id number] [address] [place] [address] Dec, Type 2 diabetes mellitus wit hout complications E11.9 ; FPC current use of insulin Z79.4 and Cervicalgia M54.2 [place] [address] [facility] [id number] [address] [place] [address] Dec, Controlled type 2 diabetes m erika without complication, without long-term current use of insulin E11.9 [facility] [address] [facility] [id number] [address] [place] [address] Nov, [facility] [address] [facility] [id number] [address] [place] [address] Oct, Diabetes type 2, uncontrolle d E11.65 [facility] [address] [facility] [id number] [address] [place] [address] Sep, Diabetes type 2, uncontrolle d E11.65 [facility] [address] [id number] [address] [place] [address] Jun, Controlled type 2 diabetes m ellitus without complication, without long-term current use of insulin E11.9 [facility] [address] [id number] [address] [place] [address] May, [facility] [address] [id number] [address] [place] [id number] 16 May, 2017 Radiculopathy of cervical re gion M54.12 [facility] [address] [id number] [address] [place] [address] 14 May, 2017 Controlled type 2 diabetes m ellitus without complication, without long-term current use of insulin E11.9 [facility] [address] [id number] [address] [place] [address] May, [facility] [address] [id number] [address] [place] [address] May, Controlled type 2 diabetes m ellitus without complication, without long-term current use of insulin E11.9 [facility] [address] [id number] [address] [place] [address] May, Controlled type 2 diabetes m ellitus without complication, without long-term current use of insulin E11.9 [facility] [address] [id number] [address] [place] [address] May, Controlled type 2 diabetes m ellitus without complication, without long-term current use of insulin E11.9 [facility] [address] [id number] [address] [place] [address] Apr, [facility] [address] [facility] [id number] [address] [place] [address] Apr, Controlled type 2 diabetes m ellitus without complication, without long-term current use of insulin E11.9 [facility] [address] [facility] [id number] [address] [place] [address] Apr, [facility] [address] [id number] [address] [place] [address] Apr, Controlled type 2 diabetes m ellitus without complication, without long-term current use of insulin E11.9 [place] [address] [id number] [address] [place] [address] Mar, [place] [address] [facility] [id number] [address] [place] [address] Mar, Radiculopathy of cervical re gion M54.12 [place] [address] [id number] [address] [place] [address] Mar, Controlled type 2 diabetes m ellitus without complication, without long-term current use of insulin E11.9 [place] [address] [facility] [id number] [address] [place] [address] Feb, Cervical radiculopathy M54.1 2 ; Acute cystitis without hematuria N30.00 and History of urethral stricture Z87.448 [place] [address] [id number] [address] [place] [address] Feb, Controlled type 2 diabetes m ellitus without complication, without long-term current use of insulin E11.9 [place] [address] [facility] [id number] [address] [place] [address] Feb, [place] [address] [id number] [address] [place] [address] Jan, Diabetes type 2, uncontrolle d E11.65 [place] [address] [id number] [address] [place] [address] Jan, [place] [address] [id number] [address] [place] [address] Jan, Controlled type 2 diabetes m ellitus without complication, without long-term current use of insulin E11.9 ; Chest wall pain R07.89 and Thoracic spine pain M54.6 [place] [address] [facility] [id number] [address] [place] [address] Dec, [facility] [address] [id number] [address] [place] [address], [place] [address] Dec, [facility] [address] [id number] [address] [place] [address], [place] [address] Nov, [facility] [address] [id number] [address] [place] [address], [place] [address] Nov, [facility] [address] [id number] [address] [place] [address], [place] [address] Nov, Trichomonas exposure Z20.2 [facility] [address] [id number] [address] [place] [address], [place] [address] Oct, [facility] [address] [id number] [address] [place] [address] Oct, [facility] [address] [id number] [address] [place] [address], [place] [address] Oct, [facility] [address] [id number] [address] [place] [address] Oct, [facility] [address] [id number] [address] [place] [address], [place] [address] Sep, [facility] [address] [id number] [address] [place] [address] Sep, [facility] [address] [id number] [address] [place] [address] Aug, [facility] [address] [id number] [address] [place] [address] Aug, [facility] [address] [id number] [address] [place] [address] Aug, [facility] [address] [id number] [address] [place] [address] Aug, [facility] [address] [id number] [address] [place] [address] July, Diabetes type 2, controlled E11.9 [facility] [address] [id number] [address] [place] [address], [place] [address] July, [facility] [address] [id number] [address] [place] [address] July, [facility] [address] [id number] [address] [place] [address], [place] [address] July, [facility] [address] [id number] [address] [place] [address], [place] [address] July, [facility] [address] [id number] [address] [place] [address], [place] [address] Jun, [facility] [address] [id number] [address] [place] [address], [place] [address] Jun, [facility] [address] [id number] [address] [place] [address] May, [facility] [address] [id number] [address] [place] [address] May, [facility] [address] [id number] [address] [place] [address] May, [facility] [address] [id number] [address] [place] [address] May, Controlled type 2 diabetes m ellitus without complication, without long-term current use of insulin E11.9 [facility] [address] [id number] [address] [place] [address] [address], [address] [facility] [address] [id number] [address] [place] [address] Apr, [facility] [address] [id number] [address] [place] [address] Mar, [facility] [address] [id number] [address] [place] [address] Mar, [facility] [address] [id number] [address] [place] [address] Feb, [facility] [address] [id number] [address] [place] [address] Feb, [facility] [address] [id number] [address] [place] [address] Jan, [facility] [address] [id number] [address] [place] [address] Jan, [facility] [address] [id number] [address] [place] [address] Jan, [facility] [address] [id number] [address] [place] [address] Dec, [facility] [address] [id number] [address] [place] [address] Dec, [facility] [address] [id number] [address] [place] [address] Dec, [facility] [address] [id number] [address] [place] [address] Nov, Diabetes type 2, uncontrolle d E11.65 [facility] [address] [id number] [address] [place] [address] [address], [address] [facility] [address] [id number] [address] [place] [address] Nov, [facility] [address] [id number] [address] [place] [address] Oct, [facility] [address] [id number] [address] [place] [address] Oct, [facility] [address] [id number] [address] [place] [address] Sep, Controlled type 2 diabetes m ellitus without complication, without long-term current use of insulin E11.9 [facility] [address] [id number] [address] [place] [address] Sep, [facility] [address] [id number] [address] [place] [address] Sep, [facility] [address] [id number] [address] [place] [address] Sep, [facility] [address] [id number] [address] [place] [address] Sep, [facility] [address] [id number] [address] [place] [address] Aug, Diabetes type 2, controlled E11.9 ; Anxiety F41.9 ; Carpal tunnel syndrome, left upper limb G56.02 and Carpal tunnel syndrome, right upper limb G56.01 [facility] [address] [id number] [address] [place] [address] Aug, Urethritis N34.2 [facility] [address] [id number] [address] [place] [address] Aug, [facility] [address] [id number] [address] [place] [address] July, Genital warts A63.0 [facility] [address] [id number] [address] [place] [address] July, [facility] [address] [id number] [address] [place] [address] July, Genital warts A63.0 [facility] [address] [id number] [address] [place] [address] July, Anxiety F41.9 [facility] [address] [id number] [address] [place] [address] Jun, Genital warts A63.0 [facility] [address] [id number] [address] [place] [address] Jun, Anxiety F41.9 [facility] [address] [id number] [address] [place] [address] May, Genital warts A63.0 and Diab etes type [address], [address] [facility] [address] [id number] [address] [place] [address] May, [facility] [address] [facility] [id number] [address] [place] [address] May, [facility] [address] [facility] [id number] [address] [place] [address] Apr, [facility] [address] [facility] [id number] [address] [place] [address] Apr, [facility] [address] [facility] [id number] [address] [place] [address] Apr, Diabetes type 2, controlled E11.9 [facility] [address] [facility] [id number] [address] [place] [address] Apr, Genital warts A63.0 [facility] [address] [facility] [id number] [address] [place] [address] Apr, [facility] [address] [facility] [id number] [address] [place] [address] Apr, Diabetes type 2, uncontrolle d E11.65 and Genital warts A63.0 [facility] [address] [facility] [id number] [address] [place] [address] Apr, [facility] [address] [facility] [id number] [address] [place] [address] Mar, [facility] [address] [facility] [id number] [address] [place] [address] Mar, [facility] [address] [place] [id number] [address] [place] [address] Mar, Family history of diabetes m ellitus V18.[address] [facility] [address] [facility] [id number] [address] [place] [address] Mar, Genital warts A63.0 and Fami ly history of diabetes mellitus V18.0 [facility] [address] [facility] [id number] [address] [place] [address] Feb, [facility] [address] [facility] [id number] [address] [place] [address] Jan, [facility] [address] [facility] [id number] [address] [place] [address] Jan, Perianal venereal warts A63. [address] [facility] [address] [facility] [id number] [address] [place] [address] Jan, Urethritis N34.[address] [facility] [address] [facility] [id number] [address] [place] [address] Jan, [facility] [address] [place] [id number] [address] [place] [address] Jan, Urinary tract infection, sit e unspecified N39.0 [facility] [address] [place] [id number] [address] [place] [address] Jan, [facility] [address] [facility] [id number] [address] [place] [address] Dec, [facility] [address] [place] [id number] [address] [place] [address] Dec, HPV (human papilloma virus) anogenital infection A63.0 ; Anxiety F41.9 and Gastroesophageal reflux disease without esophagitis K21.9 [facility] [address] [place] [id number] [address] [place] [address] Sep, Blood in stool 578.1 [facility] [address] [facility] [id number] [address] [place] [address] Aug, Blood in stool 578.1 [facility] [address] [place] [id number] [address] [place] [address] Aug, Anxiety 300.00 and Blood in stool 578.1 [facility] [address] [place] [id number] [address] [place] [address] July, [facility] [address] [place] [id number] [address] [place] [address] July, Family history of diabetes m yaraitus V18.0 [facility] [address] [facility] [id number] [address] [place] [address] July, Family history of diabetes m ellitus V18.0 ; Family history of thyroid disease V18.19 ; Polyuria 788.42 ; Polydipsia 783.5 ; Alopecia 704.[address] [facility] [address] [id number] [address] [place] [address] Jun, [facility] [address] [id number] [address] [place] [address] Jun, [facility] [address] [facility] [id number] [address] [place] [address] Mar, [facility] [address] [facility] [id number] [address] [place] [address] Mar, [facility] [address] [id number] [address] [place] [address] Mar, [facility] [address] [id number] [address] [place] [address] Mar, [facility] [address] [facility] [id number] [address] [place] [address] Mar, [facility] [address] [facility] [id number] [address] [place] [address] Mar, [facility] [address] [id number] [address] [place] [address] Mar, [facility] [address] [id number] [address] [place] [address] Mar, [facility] [address] [facility] [id number] [address] [place] [address] Mar, [facility] [address] [facility] [id number] [address] [place] [address] Mar, [facility] [address] [id number] [address] [place] [address], [place] [address] Feb, [facility] [address] [id number] [address] [place] [address], [place] [address] Feb, [facility] [address] [id number] [address] [place] [address], [place] [address] Jan, [facility] [address] [id number] [address] [place] [address], [place] [address] Jan, [facility] [address] [id number] [address] [place] [address], [place] [address] Jan, [facility] [address] [id number] [address] [place] [address], [place] [address] Jan, [facility] [address] [id number] [address] [place] [address], [place] [address] Dec, [facility] [address] [id number] [address] [place] [address], [place] [address] Dec, [facility] [address] [id number] [address] [place] [address], [place] [address] Nov, [facility] [address] [id number] [address] [place] [address], [place] [address] Nov, [facility] [address] [id number] [address] [place] [address], [place] [address] Oct, [facility] [address] [id number] [address] [place] [address], [place] [address] Oct, [facility] [address] [id number] [address] [place] [address], [place] [address] Oct, [facility] [address] [id number] [address] [place] [address], [place] [address] Oct, [facility] [address] [id number] [address] [place] [address], [place] [address] Oct, [facility] [address] [id number] [address] [place] [address], [place] [address] Oct, [facility] [address] [id number] [address] [place] [address] Oct, [facility] [address] [id number] [address] [place] [address], [place] [address] Oct, [facility] [address] [id number] [address] [place] [address], [place] [address] Sep, [facility] [address] [id number] [address] [place] [address], [place] [address] Sep, [facility] [address] [id number] [address] [place] [address], [place] [address] Sep, [facility] [address] [id number] [address] [place] [address], [place] [address] Sep, [facility] [address] [id number] [address] [place] [address], [place] [address] Aug, [facility] [address] [id number] [address] [place] [address], [place] [address] Aug, [facility] [address] [id number] [address] [place] [address], [place] [address] Aug, [facility] [address] [id number] [address] [place] [address], [place] [address] Aug, [facility] [address] [id number] [address] [place] [address], [place] [address] July, [facility] [address] [id number] [address] [place] [address], [place] [address] July, [facility] [address] [id number] [address] [place] [address], [place] [address] July, [facility] [address] [id number] [address] [place] [address], [place] [address] July, [facility] [address] [id number] [address] [place] [address], [place] [address] July, [facility] [address] [id number] [address] [place] [address], [place] [address] July, [facility] [address] [id number] [address] [place] [address], [place] [address] 23 Jun, 2013 [facility] [address] [id number] [address] [place] [address], [place] [address] 23 Jun, 2013 [facility] [address] [id number] [address] [place] [address], [place] [address] 15 Jun, 2013 [facility] [address] [id number] [address] [place] [address], [place] [address] 15 Jun, 2013 [facility] [address] [id number] [address] [place] [address], [place] [address] 14 Jun, 2013 [facility] [address] [id number] [address] [place] [address], [place] [address] Jun, [facility] [facility] [address] [id number] [address] [place] [address], [place] [address] Jun, [facility] [address] [id number] [address] [place] [address], [place] [address] 14 Jun, 2013 [facility] [address] [id number] [address] [place] [address], [place] [address] May, [facility] [address] [id number] [address] [place] [address], [place] [address] May, [facility] [address] [id number] [address] [place] [address], [place] [address] May, [facility] [address] [id number] [address] [place] [address], [place] [address] Apr, [facility] [address] [id number] [address] [place] [address], [place] [address] Apr, [facility] [address] [id number] [address] [place] [address], [place] [address] Apr, [facility] [address] [id number] [address] [place] [address], [place] [address] Apr, [facility] [address] [id number] [address] [place] [address], [place] [address] Mar, [facility] [address] [id number] [address] [place] [address], [place] [address] Mar, [facility] [address] [id number] [address] [place] [address], [place] [address] Mar, [facility] [address] [id number] [address] [place] [address], [place] [address] Mar, [facility] [address] [id number] [address] [place] [address], [place] [address] Mar, [facility] [address] [id number] [address] [place] [address], [place] [address] Mar, [facility] [address] [id number] [address] [place] [address], [place] [address] Feb, [facility] [address] [id number] [address] [place] [address], [place] [address] Feb, [facility] [address] [id number] [address] [place] [address], [place] [address] Jan, [facility] [address] [id number] [address] [place] [address], [place] [address] Jan, [facility] [address] [id number] [address] [place] [address], [place] [address] Jan, [facility] [address] [id number] [address] [place] [address], [place] [address] Jan, [facility] [address] [id number] [address] [place] [address], [place] [address] Jan, [facility] [address] [id number] [address] [place] [address], [place] [address] Jan, [facility] [address] [id number] [address] [place] [address], [place] [address] Jan, [facility] [address] [id number] [address] [place] [address], [place] [address] Dec, [facility] [address] [id number] [address] [place] [address], [place] [address] Dec, [facility] [address] [id number] [address] [place] [address], [place] [address] Nov, [facility] [address] [id number] [address] [place] [address], [place] [address] Nov, [facility] [address] [id number] [address] [place] [address], [place] [address] Nov, [facility] [address] [id number] [address] [place] [address], [place] [address] Oct, [facility] [address] [id number] [address] [place] [address], [place] [address] Oct, [facility] [address] [id number] [address] [place] [address], [place] [address] Oct, [facility] [address] [id number] [address] [place] [address], [place] [address] Oct, [facility] [address] [id number] [address] [place] [address], [place] [address] Sep, [facility] [address] [id number] [address] [place] [address], [place] [address] Sep, [facility] [address] [id number] [address] [place] [address], [place] [address] Aug, [facility] [address] [id number] [address] [place] [address], [place] [address] Aug, [facility] [address] [id number] [address] [place] [address], [place] [address] Aug, [facility] [address] [id number] [address] [place] [address], [place] [address] Aug, [facility] [address] [id number] [address] [place] [address], [place] [address] July, [facility] [address] [id number] [address] [place] [address] July, [facility] [address] [id number] [address] [place] [address] July, [facility] [address] [id number] [address] [place] [address] July, [facility] [address] [id number] [address] [place] [address] Jun, [facility] [address] [id number] [address] [place] [address] Jun, [facility] [address] [facility] [id number] [address] [place] [address] Feb, [facility] [address] [facility] [id number] [address] [place] [address] Feb, [facility] [address] [facility] [id number] [address] [place] [address] Mar, IMMUNIZATIONS No Known Immunizations SOCIAL HISTORY [...]
--- OUTSIDE RECORDS SUMMARY | 2019-08-16 14:15 | XMS REPORT ---
Author Author Joesph MARIA Organization [facility] Address [address] [place] [address] Care Team Providers Care Order Desk Clerk Name Role Phone MIRELLA MARIA Unavailable PROBLEMS Type Condition ICD9-CM Code JFS28-DI Code Onset Dates Condition S tatus SNOMED Code Problem Shoulder pain, right M25.511 Active 69182475 Problem Hypertension, benign I10 Active 48370196 Problem Diabetes type 2, uncontrolled E11.65 Active 810728665 Problem Mood disorder F39 Active 102585 05 Problem Type 2 diabetes mellitus without complications E11 .9 Active 684763300 Problem Low back pain M54.5 Active 348352 005 Problem alf current use of insulin Z79.4 Active 214557574 Problem Acquired hypothyroidism E03.9 Active 795368190 Problem Diabetes type 2, controlled E11.9 Ac tive 24159242 Problem Controlled type 2 diabetes m ellitus without complication, without long- term current use of insulin E11.9 Active 642311694 Problem History of urethral stricture Z87.448 Active 561309581 Problem Cervical radiculopathy M54.12 Active 15665061 ALLERGIES No Information ENCOUNTERS Encounter Location Date Diagnosis [place] [id number] [place] [phone] Aug, Diabetes type 2, uncontrolle d E11.65 [facility] [address] [facility] [id number] [address] [place] [phone] July, [facility] [address] [id number] [address] [place] [id number] July, Dental examination Z01.20 an d Caries K02.9 [facility] [address] [facility] [id number] [address] [place] [phone] Jun, Controlled type 2 diabetes m ellitus without complication, without long-term current use of insulin E11.9 [facility] [address] [facility] [id number] [address] [place] [phone] May, Controlled type 2 diabetes m erika without complication, without long-term current use of insulin E11.9 [facility] [address] [facility] [id number] [address] [place] [phone] Apr, [facility] [address] [facility] [id number] [address] [place] [phone] Mar, Controlled type 2 diabetes m erika without complication, without long-term current use of insulin E11.9 [place] [address] [facility] [id number] [address] [place] [phone] Jan, [place] [address] 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 [id number] [address] [place] [phone] Dec, Type 2 diabetes mellitus wit hout complications E11.9 ; alf current use of insulin Z79.4 and Cervicalgia M54.2 [place] [address] [facility] [id number] [address] [place] [phone] Dec, Controlled type 2 diabetes m erika without complication, without long-term current use of insulin E11.9 [facility] [address] [facility] [id number] [address] [place] [phone] Nov, [facility] [address] [facility] [id number] [address] [place] [phone] Oct, Diabetes type 2, uncontrolle d E11.65 [facility] [address] [facility] [id number] [address] [place] [phone] Sep, Diabetes type 2, uncontrolle d E11.65 [facility] [address] [id number] [address] [place] [phone] Jun, Controlled type 2 diabetes m ellitus without complication, without long-term current use of insulin E11.9 [facility] [address] [id number] [address] [place] [phone] May, [facility] [address] [id number] [address] [place] [phone] 16 May, 2017 Radiculopathy of cervical re gion M54.12 [facility] [address] [id number] [address] [place] [phone] 14 May, 2017 Controlled type 2 diabetes m ellitus without complication, without long-term current use of insulin E11.9 [facility] [address] [id number] [address] [place] [phone] May, [facility] [address] [id number] [address] [place] [phone] May, Controlled type 2 diabetes m ellitus without complication, without long-term current use of insulin E11.9 [facility] [address] [id number] [address] [place] [phone] May, Controlled type 2 diabetes m ellitus without complication, without long-term current use of insulin E11.9 [facility] [address] [id number] [address] [place] [phone] May, Controlled type 2 diabetes m ellitus without complication, without long-term current use of insulin E11.9 [facility] [address] [id number] [address] [place] [phone] Apr, [facility] [address] [facility] [id number] [address] [place] [phone] Apr, Controlled type 2 diabetes m ellitus without complication, without long-term current use of insulin E11.9 [facility] [address] [facility] [id number] [address] [place] [phone] Apr, [facility] [address] [id number] [address] [place] [phone] Apr, Controlled type 2 diabetes m ellitus without complication, without long-term current use of insulin E11.9 [place] [address] [id number] [address] [place] [phone] Mar, [place] [address] [facility] [id number] [address] [place] [phone] Mar, Radiculopathy of cervical re gion M54.12 [place] [address] [id number] [address] [place] [phone] Mar, Controlled type 2 diabetes m ellitus without complication, without long-term current use of insulin E11.9 [place] [address] [facility] [id number] [address] [place] [phone] Feb, Cervical radiculopathy M54.1 2 ; Acute cystitis without hematuria N30.00 and History of urethral stricture Z87.448 [place] [address] [id number] [address] [place] [phone] Feb, Controlled type 2 diabetes m ellitus without complication, without long-term current use of insulin E11.9 [place] [address] [facility] [id number] [address] [place] [phone] Feb, [place] [address] [id number] [address] [place] [phone] Jan, Diabetes type 2, uncontrolle d E11.65 [place] [address] [id number] [address] [place] [phone] Jan, [place] [address] [id number] [address] [place] [phone] Jan, Controlled type 2 diabetes m ellitus without complication, without long-term current use of insulin E11.9 ; Chest wall pain R07.89 and Thoracic spine pain M54.6 [place] [address] [facility] [id number] [address] [place] [phone] Dec, [facility] [address] [id number] [address] [place] [address], [place] [address] Dec, [facility] [address] [id number] [address] [place] [address], [place] [address] Nov, [facility] [address] [id number] [address] [place] [address], [place] [address] Nov, [facility] [address] [id number] [address] [place] [address], [place] [address] Nov, Trichomonas exposure Z20.2 [facility] [address] [id number] [address] [place] [address], [place] [address] Oct, [facility] [address] [id number] [address] [place] [phone] Oct, [facility] [address] [id number] [address] [place] [address], [place] [address] Oct, [facility] [address] [id number] [address] [place] [phone] Oct, [facility] [address] [id number] [address] [place] [address], [place] [address] Sep, [facility] [address] [id number] [address] [place] [phone] Sep, [facility] [address] [id number] [address] [place] [phone] Aug, [facility] [address] [id number] [address] [place] [phone] Aug, [facility] [address] [id number] [address] [place] [phone] Aug, [facility] [address] [id number] [address] [place] [phone] Aug, [facility] [address] [id number] [address] [place] [phone] July, Diabetes type 2, controlled E11.9 [facility] [address] [id number] [address] [place] [address], [place] [address] July, [facility] [address] [id number] [address] [place] [phone] July, [facility] [address] [id number] [address] [place] [address], [place] [address] July, [facility] [address] [id number] [address] [place] [address], [place] [address] July, [facility] [address] [id number] [address] [place] [address], [place] [address] Jun, [facility] [address] [id number] [address] [place] [address], [place] [address] Jun, [facility] [address] [id number] [address] [place] [phone] May, [facility] [address] [id number] [address] [place] [phone] May, [facility] [address] [id number] [address] [place] [phone] May, [facility] [address] [id number] [address] [place] [phone] May, Controlled type 2 diabetes m ellitus without complication, without long-term current use of insulin E11.9 [facility] [address] [id number] [address] [place] [phone] 15 Apr, 2016 [facility] [address] [id number] [address] [place] [phone] Apr, [facility] [address] [id number] [address] [place] [phone] Mar, [facility] [address] [id number] [address] [place] [phone] Mar, [facility] [address] [id number] [address] [place] [phone] Feb, [facility] [address] [id number] [address] [place] [phone] Feb, [facility] [address] [id number] [address] [place] [id number] Jan, [facility] [address] [id number] [address] [place] [phone] Jan, [facility] [address] [id number] [address] [place] [phone] Jan, [facility] [address] [id number] [address] [place] [phone] Dec, [facility] [address] [id number] [address] [place] [phone] Dec, [facility] [address] [id number] [address] [place] [phone] Dec, [facility] [address] [id number] [address] [place] [phone] Nov, Diabetes type 2, uncontrolle d E11.65 [facility] [address] [id number] [address] [place] [phone] 14 Nov, 2015 [facility] [address] [id number] [address] [place] [phone] Nov, [facility] [address] [id number] [address] [place] [phone] Oct, [facility] [address] [id number] [address] [place] [phone] Oct, [facility] [address] [id number] [address] [place] [phone] Sep, Controlled type 2 diabetes m ellitus without complication, without long-term current use of insulin E11.9 [facility] [address] [id number] [address] [place] [phone] Sep, [facility] [address] [id number] [address] [place] [phone] Sep, [facility] [address] [id number] [address] [place] [phone] Sep, [facility] [address] [id number] [address] [place] [phone] Sep, [facility] [address] [id number] [address] [place] [phone] Aug, Diabetes type 2, controlled E11.9 ; Anxiety F41.9 ; Carpal tunnel syndrome, left upper limb G56.02 and Carpal tunnel syndrome, right upper limb G56.01 [facility] [address] [id number] [address] [place] [phone] Aug, Urethritis N34.2 [facility] [address] [id number] [address] [place] [phone] Aug, [facility] [address] [id number] [address] [place] [phone] July, Genital warts A63.0 [facility] [address] [id number] [address] [place] [phone] July, [facility] [address] [id number] [address] [place] [phone] July, Genital warts A63.0 [facility] [address] [id number] [address] [place] [phone] July, Anxiety F41.9 [facility] [address] [id number] [address] [place] [id number] Jun, Genital warts A63.0 [facility] [address] [id number] [address] [place] [phone] Jun, Anxiety F41.9 [facility] [address] [id number] [address] [place] [phone] May, Genital warts A63.0 and Diab etes type 2, uncontrolled E11.65 [facility] [address] [id number] [address] [place] [phone] May, [facility] [address] [facility] [id number] [address] [place] [phone] May, [facility] [address] [facility] [id number] [address] [place] [phone] Apr, [facility] [address] [facility] [id number] [address] [place] [phone] Apr, [facility] [address] [facility] [id number] [address] [place] [id number] Apr, Diabetes type 2, controlled E11.9 [facility] [address] [facility] [id number] [address] [place] [phone] Apr, Genital warts A63.0 [facility] [address] [facility] [id number] [address] [place] [phone] Apr, [facility] [address] [facility] [id number] [address] [place] [phone] Apr, Diabetes type 2, uncontrolle d E11.65 and Genital warts A63.0 [facility] [address] [facility] [id number] [address] [place] [id number] Apr, [facility] [address] [facility] [id number] [address] [place] [phone] Mar, [facility] [address] [facility] [id number] [address] [place] [phone] Mar, [facility] [address] [place] [id number] [address] [place] [phone] Mar, Family history of diabetes m ellitus V18.0 and Weight loss R63.4 [facility] [address] [facility] [id number] [address] [place] [phone] Mar, Genital warts A63.0 and Fami ly history of diabetes mellitus V18.0 [facility] [address] [facility] [id number] [address] [place] [phone] Feb, [facility] [address] [facility] [id number] [address] [place] [id number] Jan, [facility] [address] [facility] [id number] [address] [place] [phone] Jan, Perianal venereal warts A63. 0 [facility] [address] [facility] [id number] [address] [place] [phone] Jan, Urethritis N34.2 and Anxiety F41.9 [facility] [address] [facility] [id number] [address] [place] [phone] Jan, [facility] [address] [place] [id number] [address] [place] [phone] Jan, Urinary tract infection, sit e unspecified N39.0 [facility] [address] [place] [id number] [address] [place] [id number] Jan, [facility] [address] [facility] [id number] [address] [place] [phone] Dec, [facility] [address] [place] [id number] [address] [place] [phone] Dec, HPV (human papilloma virus) anogenital infection A63.0 ; Anxiety F41.9 and Gastroesophageal reflux disease without esophagitis K21.9 [facility] [address] [place] [id number] [address] [place] [phone] Sep, Blood in stool 578.1 [facility] [address] [facility] [id number] [address] [place] [phone] Aug, Blood in stool 578.1 [facility] [address] [place] [id number] [address] [place] [id number] Aug, Anxiety 300.00 and Blood in stool 578.1 [facility] [address] [place] [id number] [address] [place] [phone] July, [facility] [address] [place] [id number] [address] [place] [phone] July, Family history of diabetes m yaraitus V18.0 [facility] [address] [facility] [id number] [address] [place] [id number] July, Family history of diabetes m ellitus V18.0 ; Family history of thyroid disease V18.19 ; Polyuria 788.42 ; Polydipsia 783.5 ; Alopecia 704.00 and Fatigue 780.79 [facility] [address] [id number] [address] [place] [phone] Jun, [facility] [address] [id number] [address] [place] [phone] Jun, [facility] [address] [facility] [id number] [address] [place] [phone] Mar, [facility] [address] [facility] [id number] [address] [place] [phone] Mar, [facility] [address] [id number] [address] [place] [phone] Mar, [facility] [address] [id number] [address] [place] [phone] Mar, [facility] [address] [facility] [id number] [address] [place] [phone] Mar, [facility] [address] [facility] [id number] [address] [place] [phone] Mar, [facility] [address] [id number] [address] [place] [phone] Mar, [facility] [address] [id number] [address] [place] [phone] Mar, [facility] [address] [facility] [id number] [address] [place] [phone] Mar, [facility] [address] [facility] [id number] [address] [place] [phone] Mar, [facility] [address] [id number] [address] [place] [address], [place] [address] Feb, [facility] [address] [id number] [address] [place] [address], [place] [address] Feb, [facility] [address] [id number] [address] [place] [address], [place] [address] Jan, [facility] [address] [id number] [address] [place] [address], [place] [address] Jan, [facility] [address] [id number] [address] [place] [address], [place] [address] Jan, [facility] [address] [id number] [address] [place] [address], [place] [address] Jan, [facility] [address] [id number] [address] [place] [address], [place] [address] Dec, [facility] [address] [id number] [address] [place] [address], [place] [address] Dec, [facility] [address] [id number] [address] [place] [address], [place] [address] Nov, [facility] [address] [id number] [address] [place] [address], [place] [address] Nov, [facility] [address] [id number] [address] [place] [address], [place] [address] Oct, [facility] [address] [id number] [address] [place] [address], [place] [address] Oct, [facility] [address] [id number] [address] [place] [address], [place] [address] Oct, [facility] [address] [id number] [address] [place] [address], [place] [address] Oct, [facility] [address] [id number] [address] [place] [address], [place] [address] Oct, [facility] [address] [id number] [address] [place] [address], [place] [address] Oct, [facility] [address] [id number] [facility] [place] [address] Oct, [facility] [address] [id number] [address] [place] [address], [place] [address] Oct, [facility] [address] [id number] [address] [place] [address], [place] [address] Sep, [facility] [address] [id number] [address] [place] [address], [place] [address] Sep, [facility] [address] [id number] [address] [place] [address], [place] [address] Sep, [facility] [address] [id number] [address] [place] [address], [place] [address] Sep, [facility] [address] [id number] [address] [place] [address], [place] [address] Aug, [facility] [address] [id number] [address] [place] [address], [place] [address] Aug, [facility] [address] [id number] [address] [place] [address], [place] [address] Aug, [facility] [address] [id number] [address] [place] [address], [place] [address] Aug, [facility] [address] [id number] [address] [place] [address], [place] [address] July, [facility] [address] [id number] [address] [place] [address], [place] [address] July, [facility] [address] [id number] [address] [place] [address], [place] [address] July, [facility] [address] [id number] [address] [place] [address], [place] [address] July, [facility] [address] [id number] [address] [place] [address], [place] [address] July, [facility] [address] [id number] [address] [place] [address], [place] [address] July, [facility] [address] [id number] [address] [place] [address], [place] [address] 23 Jun, 2013 [facility] [address] [id number] [address] [place] [address], [place] [address] 23 Jun, 2013 [facility] [address] [id number] [address] [place] [address], [place] [address] 15 Jun, 2013 [facility] [address] [id number] [address] [place] [address], [place] [address] 15 Jun, 2013 [facility] [address] [id number] [address] [place] [address], [place] [address] 14 Jun, 2013 [facility] [address] [id number] [address] [place] [address], [place] [address] Jun, [facility] [address] [id number] [address] [place] [address], [place] [address] Jun, [facility] [address] [id number] [address] [place] [address], [place] [address] 14 Jun, 2013 [facility] [address] [id number] [address] [place] [address], [place] [address] May, [facility] [address] [id number] [address] [place] [address], [place] [address] May, [facility] [address] [id number] [address] [place] [address], [place] [address] May, [facility] [address] [id number] [address] [place] [address], [place] [address] Apr, [facility] [address] [id number] [address] [place] [address], [place] [address] Apr, [facility] [address] [id number] [address] [place] [address], [place] [address] Apr, [facility] [address] [id number] [address] [place] [address], [place] [address] Apr, [facility] [address] [id number] [address] [place] [address], [place] [address] Mar, [facility] [address] [id number] [address] [place] [address], [place] [address] Mar, [facility] [address] [id number] [address] [place] [address], [place] [address] Mar, [facility] [address] [id number] [address] [place] [address], [place] [address] Mar, [facility] [address] [id number] [address] [place] [address], [place] [address] Mar, [facility] [address] [id number] [address] [place] [address], [place] [address] Mar, [facility] [address] [id number] [address] [place] [address], [place] [address] Feb, [facility] [address] [id number] [address] [place] [address], [place] [address] Feb, [facility] [address] [id number] [address] [place] [address], [place] [address] Jan, [facility] [address] [id number] [address] [place] [address], [place] [address] Jan, [facility] [address] [id number] [address] [place] [address], [place] [address] Jan, [facility] [address] [id number] [address] [place] [address], [place] [address] Jan, [facility] [address] [id number] [address] [place] [address], [place] [address] Jan, [facility] [address] [id number] [address] [place] [address], [place] [address] Jan, [facility] [address] [id number] [address] [place] [address], [place] [address] Jan, [facility] [address] [id number] [address] [place] [address], [place] [address] Dec, [facility] [address] [id number] [address] [place] [address], [place] [address] Dec, [facility] [address] [id number] [address] [place] [address], [place] [address] Nov, [facility] [address] [id number] [address] [place] [address], [place] [address] Nov, [facility] [address] [id number] [address] [place] [address], [place] [address] Nov, [facility] [address] [id number] [address] [place] [address], [place] [address] Oct, [facility] [address] [id number] [address] [place] [address], [place] [address] Oct, [facility] [address] [id number] [address] [place] [address], [place] [address] Oct, [facility] [address] [id number] [address] [place] [address], [place] [address] Oct, [facility] [address] [id number] [address] [place] [address], [place] [address] Sep, [facility] [address] [id number] [address] [place] [address], [place] [address] Sep, [facility] [address] [id number] [address] [place] [address], [place] [address] Aug, [facility] [address] [id number] [address] [place] [address], [place] [address] Aug, [facility] [address] [id number] [address] [place] [address], [place] [address] Aug, [facility] [address] [id number] [address] [place] [address], [place] [address] Aug, [facility] [address] [id number] [address] [place] [address], [place] [address] July, [facility] [address] [id number] [address] [place] [address] July, [facility] [address] [id number] [address] [place] [address] July, [facility] [address] [id number] [address] [place] [address] July, [facility] [address] [id number] [address] [place] [address] Jun, [facility] [address] [id number] [address] [place] [address] Jun, [facility] [address] [facility] [id number] [address] [place] [address] Feb, [facility] [address] [facility] [id number] [address] [place] [address] Feb, [facility] [address] [facility] [id number] [address] [place] [address] Mar, IMMUNIZATIONS No Known Immunizations SOCIAL HISTORY [...]
--- OUTSIDE RECORDS SUMMARY | 2019-08-16 14:15 | XMS REPORT ---
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 Name Role Phone MIRELLA MARIA Unavailable PROBLEMS Type Condition ICD9-CM Code [id number] Code Onset Dates Condition S tatus SNOMED Code Problem Shoulder pain, right M25.511 Active 30725930 Problem Hypertension, benign I10 Active 56094837 Problem Diabetes type 2, uncontrolled E11.65 Active 140750238 Problem Mood disorder F39 Active 485052 05 Problem Type 2 diabetes mellitus without complications E11 .9 Active 895159928 Problem Low back pain M54.5 Active 469874 005 Problem FDC current use of insulin Z79.4 Active 485652940 Problem Acquired hypothyroidism E03.9 Active 848474684 Problem Diabetes type 2, controlled E11.9 Ac tive 69565167 Problem Controlled type 2 diabetes m ellitus without complication, without long- term current use of insulin E11.9 Active 605063407 Problem History of urethral stricture Z87.448 Active 826499050 Problem Cervical radiculopathy M54.12 Active 04739220 ALLERGIES No Information ENCOUNTERS Encounter Location Date Diagnosis [place] [id number] [place] [address] Aug, Diabetes type 2, uncontrolle d E11.65 [facility] [address] [facility] [id number] [address] [place] [address] July, [facility] [address] [id number] [address] [place] [id number] July, Dental examination Z01.20 an d Caries K02.9 [facility] [address] [facility] [id number] [address] [place] [address] Jun, Controlled type 2 diabetes m ellitus without complication, without long-term current use of insulin E11.9 [facility] [address] [facility] [id number] [address] [place] [address] May, Controlled type 2 diabetes m erika without complication, without long-term current use of insulin E11.9 [facility] [address] [facility] [id number] [address] [place] [address] Apr, [facility] [address] [facility] [id number] [address] [place] [address] Mar, Controlled type 2 diabetes m erika without complication, without long-term current use of insulin E11.9 [place] [address] [address] [facility] [id number] [address] [place] [address] Jan, [place] [address] [address] [facility] [id number] [address] [place] [address] Dec, Diabetes type 2, uncontrolle d E11.65 [place] [address] [address] [place] [id number] [address] [place] [address] Dec, Type 2 diabetes mellitus wit hout complications E11.9 ; swamper current use of insulin Z79.4 and Cervicalgia M54.2 [place] [address] [address] [facility] [id number] [address] [place] [address] Dec, Type 2 diabetes mellitus wit hout complications E11.9 ; FDC current use of insulin Z79.4 and Cervicalgia M54.2 [place] [address] [address] [facility] [id number] [address] [place] [address] Dec, Controlled type 2 diabetes m erika without complication, without long-term current use of insulin E11.9 [facility] [address] [facility] [id number] [address] [place] [address] Nov, [facility] [address] [facility] [id number] [address] [place] [address] Oct, Diabetes type 2, uncontrolle d E11.65 [facility] [address] [facility] [id number] [address] [place] [address] Sep, Diabetes type 2, uncontrolle d E11.65 [facility] [address] [id number] [address] [place] [address] Jun, Controlled type 2 diabetes m ellitus without complication, without long-term current use of insulin E11.9 [facility] [address] [id number] [address] [place] [address] May, [facility] [address] [id number] [address] [place] [address] 16 May, 2017 Radiculopathy of cervical re gion M54.12 [facility] [address] [id number] [address] [place] [address] 14 May, 2017 Controlled type 2 diabetes m ellitus without complication, without long-term current use of insulin E11.9 [facility] [address] [id number] [address] [place] [address] May, [facility] [address] [id number] [address] [place] [address] May, Controlled type 2 diabetes m ellitus without complication, without long-term current use of insulin E11.9 [facility] [address] [id number] [address] [place] [address] May, Controlled type 2 diabetes m ellitus without complication, without long-term current use of insulin E11.9 [facility] [address] [id number] [address] [place] [address] May, Controlled type 2 diabetes m ellitus without complication, without long-term current use of insulin E11.9 [facility] [address] [id number] [address] [place] [address] Apr, [facility] [address] [facility] [id number] [address] [place] [address] Apr, Controlled type 2 diabetes m ellitus without complication, without long-term current use of insulin E11.9 [facility] [address] [facility] [id number] [address] [place] [address] Apr, [facility] [address] [id number] [address] [place] [address] Apr, Controlled type 2 diabetes m ellitus without complication, without long-term current use of insulin E11.9 [place] [address] [id number] [address] [place] [address] Mar, [place] [address] [facility] [id number] [address] [place] [address] Mar, Radiculopathy of cervical re gion M54.12 [place] [address] [id number] [address] [place] [address] Mar, Controlled type 2 diabetes m ellitus without complication, without long-term current use of insulin E11.9 [place] [address] [facility] [id number] [address] [place] [address] Feb, Cervical radiculopathy M54.1 2 ; Acute cystitis without hematuria N30.00 and History of urethral stricture Z87.448 [place] [address] [id number] [address] [place] [address] Feb, Controlled type 2 diabetes m ellitus without complication, without long-term current use of insulin E11.9 [place] [address] [facility] [id number] [address] [place] [address] Feb, [place] [address] [id number] [address] [place] [address] Jan, Diabetes type 2, uncontrolle d E11.65 [place] [address] [id number] [address] [place] [address] Jan, [place] [address] [id number] [address] [place] [address] Jan, Controlled type 2 diabetes m ellitus without complication, without long-term current use of insulin E11.9 ; Chest wall pain R07.89 and Thoracic spine pain M54.6 [place] [address] [facility] [id number] [address] [place] [address] Dec, [facility] [address] [id number] [address] [place] [address], [place] [address] Dec, [facility] [address] [id number] [address] [place] [address], [place] [address] Nov, [facility] [address] [id number] [address] [place] [address], [place] [address] Nov, [facility] [address] [id number] [address] [place] [address], [place] [address] Nov, Trichomonas exposure Z20.2 [facility] [address] [id number] [address] [place] [address], [place] [address] Oct, [facility] [address] [id number] [address] [place] [address] Oct, [facility] [address] [id number] [address] [place] [address], [place] [address] Oct, [facility] [address] [id number] [address] [place] [address] Oct, [facility] [address] [id number] [address] [place] [address], [place] [address] Sep, [facility] [address] [id number] [address] [place] [address] Sep, [facility] [address] [id number] [address] [place] [address] Aug, [facility] [address] [id number] [address] [place] [address] Aug, [facility] [address] [id number] [address] [place] [address] Aug, [facility] [address] [id number] [address] [place] [address] Aug, [facility] [address] [id number] [address] [place] [address] July, Diabetes type 2, controlled E11.9 [facility] [address] [id number] [address] [place] [address], [place] [address] July, [facility] [address] [id number] [address] [place] [address] July, [facility] [address] [id number] [address] [place] [address], [place] [address] July, [facility] [address] [id number] [address] [place] [address], [place] [address] July, [facility] [address] [id number] [address] [place] [address], [place] [address] Jun, [facility] [address] [id number] [address] [place] [address], [place] [address] Jun, [facility] [address] [id number] [address] [place] [address] May, [facility] [address] [id number] [address] [place] [address] May, [facility] [address] [id number] [address] [place] [address] May, [facility] [address] [id number] [address] [place] [address] May, Controlled type 2 diabetes m ellitus without complication, without long-term current use of insulin E11.9 [facility] [address] [id number] [address] [place] [address] 15 Apr, 2016 [facility] [address] [id number] [address] [place] [address] Apr, [facility] [address] [id number] [address] [place] [address] Mar, [facility] [address] [id number] [address] [place] [address] Mar, [facility] [address] [id number] [address] [place] [address] Feb, [facility] [address] [id number] [address] [place] [address] Feb, [facility] [address] [id number] [address] [place] [address] Jan, [facility] [address] [id number] [address] [place] [address] Jan, [facility] [address] [id number] [address] [place] [address] Jan, [facility] [address] [id number] [address] [place] [address] Dec, [facility] [address] [id number] [address] [place] [address] Dec, [facility] [address] [id number] [address] [place] [address] Dec, [facility] [address] [id number] [address] [place] [address] Nov, Diabetes type 2, uncontrolle d E11.65 [facility] [address] [id number] [address] [place] [address] 14 Nov, 2015 [facility] [address] [id number] [address] [place] [address] Nov, [facility] [address] [id number] [address] [place] [address] Oct, [facility] [address] [id number] [address] [place] [address] Oct, [facility] [address] [id number] [address] [place] [address] Sep, Controlled type 2 diabetes m ellitus without complication, without long-term current use of insulin E11.9 [facility] [address] [id number] [address] [place] [address] Sep, [facility] [address] [id number] [address] [place] [address] Sep, [facility] [address] [id number] [address] [place] [address] Sep, [facility] [address] [id number] [address] [place] [address] Sep, [facility] [address] [id number] [address] [place] [address] Aug, Diabetes type 2, controlled E11.9 ; Anxiety F41.9 ; Carpal tunnel syndrome, left upper limb G56.02 and Carpal tunnel syndrome, right upper limb G56.01 [facility] [address] [id number] [address] [place] [address] Aug, Urethritis N34.2 [facility] [address] [id number] [address] [place] [address] Aug, [facility] [address] [id number] [address] [place] [address] July, Genital warts A63.0 [facility] [address] [id number] [address] [place] [address] July, [facility] [address] [id number] [address] [place] [address] July, Genital warts A63.0 [facility] [address] [id number] [address] [place] [address] July, Anxiety F41.9 [facility] [address] [id number] [address] [place] [address] Jun, Genital warts A63.0 [facility] [address] [id number] [address] [place] [address] Jun, Anxiety F41.9 [facility] [address] [id number] [address] [place] [address] May, Genital warts A63.0 and Diab etes type 2, uncontrolled E11.65 [facility] [address] [id number] [address] [place] [address] May, [facility] [address] [facility] [id number] [address] [place] [address] May, [facility] [address] [facility] [id number] [address] [place] [address] Apr, [facility] [address] [facility] [id number] [address] [place] [address] Apr, [facility] [address] [facility] [id number] [address] [place] [address] Apr, Diabetes type 2, controlled E11.9 [facility] [address] [facility] [id number] [address] [place] [address] Apr, Genital warts A63.0 [facility] [address] [facility] [id number] [address] [place] [address] Apr, [facility] [address] [facility] [id number] [address] [place] [address] Apr, Diabetes type 2, uncontrolle d E11.65 and Genital warts A63.0 [facility] [address] [facility] [id number] [address] [place] [address] Apr, [facility] [address] [facility] [id number] [address] [place] [address] Mar, [facility] [address] [facility] [id number] [address] [place] [address] Mar, [facility] [address] [place] [id number] [address] [place] [address] Mar, Family history of diabetes m ellitus V18.0 and Weight loss R63.4 [facility] [address] [facility] [id number] [address] [place] [address] Mar, Genital warts A63.0 and Fami ly history of diabetes mellitus V18.0 [facility] [address] [facility] [id number] [address] [place] [address] Feb, [facility] [address] [facility] [id number] [address] [place] [address] Jan, [facility] [address] [facility] [id number] [address] [place] [address] Jan, Perianal venereal warts A63. 0 [facility] [address] [facility] [id number] [address] [place] [address] Jan, Urethritis N34.2 and Anxiety F41.9 [facility] [address] [facility] [id number] [address] [place] [address] Jan, [facility] [address] [place] [id number] [address] [place] [address] Jan, Urinary tract infection, sit e unspecified N39.0 [facility] [address] [place] [id number] [address] [place] [address] Jan, [facility] [address] [facility] [id number] [address] [place] [address] Dec, [facility] [address] [place] [id number] [address] [place] [address] Dec, HPV (human papilloma virus) anogenital infection A63.0 ; Anxiety F41.9 and Gastroesophageal reflux disease without esophagitis K21.9 [facility] [address] [place] [id number] [address] [place] [address] Sep, Blood in stool 578.1 [facility] [address] [facility] [id number] [address] [place] [address] Aug, Blood in stool 578.1 [facility] [address] [place] [id number] [address] [place] [address] Aug, Anxiety 300.00 and Blood in stool 578.1 [facility] [address] [place] [id number] [address] [place] [address] July, [facility] [address] [place] [id number] [address] [place] [address] July, Family history of diabetes m yaraitus V18.0 [facility] [address] [facility] [id number] [address] [place] [address] July, Family history of diabetes m ellitus V18.0 ; Family history of thyroid disease V18.19 ; Polyuria 788.42 ; Polydipsia 783.5 ; Alopecia 704.00 and Fatigue 780.79 [facility] [address] [id number] [address] [place] [address] Jun, [facility] [address] [id number] [address] [place] [address] Jun, [facility] [address] [facility] [id number] [address] [place] [address] Mar, [facility] [address] [facility] [id number] [address] [place] [address] Mar, [facility] [address] [id number] [address] [place] [address] Mar, [facility] [address] [id number] [address] [place] [address] Mar, [facility] [address] [facility] [id number] [address] [place] [address] Mar, [facility] [address] [facility] [id number] [address] [place] [address] Mar, [facility] [address] [id number] [address] [place] [address] Mar, [facility] [address] [id number] [address] [place] [address] Mar, [facility] [address] [facility] [id number] [address] [place] [address] Mar, [facility] [address] [facility] [id number] [address] [place] [address] Mar, [facility] [address] [id number] [address] [place] [address], [place] [address] Feb, [facility] [address] [id number] [address] [place] [address], [place] [address] Feb, [facility] [address] [id number] [address] [place] [address], [place] [address] Jan, [facility] [address] [id number] [address] [place] [address], [place] [address] Jan, [facility] [address] [id number] [address] [place] [address], [place] [address] Jan, [facility] [address] [id number] [address] [place] [address], [place] [address] Jan, [facility] [address] [id number] [address] [place] [address], [place] [address] Dec, [facility] [address] [id number] [address] [place] [address], [place] [address] Dec, [facility] [address] [id number] [address] [place] [address], [place] [address] Nov, [facility] [address] [id number] [address] [place] [address], [place] [address] Nov, [facility] [address] [id number] [address] [place] [address], [place] [address] Oct, [facility] [address] [id number] [address] [place] [address], [place] [address] Oct, [facility] [address] [id number] [address] [place] [address], [place] [address] Oct, [facility] [address] [id number] [address] [place] [address], [place] [address] Oct, [facility] [address] [id number] [address] [place] [address], [place] [address] Oct, [facility] [address] [id number] [address] [place] [address], [place] [address] Oct, [facility] [address] [id number] [facility] [place] [address] Oct, [facility] [address] [id number] [address] [place] [address], [place] [address] Oct, [facility] [address] [id number] [address] [place] [address], [place] [address] Sep, [facility] [address] [id number] [address] [place] [address], [place] [address] Sep, [facility] [address] [id number] [address] [place] [address], [place] [address] Sep, [facility] [address] [id number] [address] [place] [address], [place] [address] Sep, [facility] [address] [id number] [address] [place] [address], [place] [address] Aug, [facility] [address] [id number] [address] [place] [address], [place] [address] Aug, [facility] [address] [id number] [address] [place] [address], [place] [address] Aug, [facility] [address] [id number] [address] [place] [address], [place] [address] Aug, [facility] [address] [id number] [address] [place] [address], [place] [address] July, [facility] [address] [id number] [address] [place] [address], [place] [address] July, [facility] [address] [id number] [address] [place] [address], [place] [address] July, [facility] [address] [id number] [address] [place] [address], [place] [address] July, [facility] [address] [id number] [address] [place] [address], [place] [address] July, [facility] [address] [id number] [address] [place] [address], [place] [address] July, [facility] [address] [id number] [address] [place] [address], [place] [address] 23 Jun, 2013 [facility] [address] [id number] [address] [place] [address], [place] [address] 23 Jun, 2013 [facility] [address] [id number] [address] [place] [address], [place] [address] 15 Jun, 2013 [facility] [address] [id number] [address] [place] [address], [place] [address] 15 Jun, 2013 [facility] [address] [id number] [address] [place] [address], [place] [address] 14 Jun, 2013 [facility] [address] [id number] [address] [place] [address], [place] [address] Jun, [facility] [address] [id number] [address] [place] [address], [place] [address] Jun, [facility] [address] [id number] [address] [place] [address], [place] [id number] 14 Jun, 2013 [facility] [address] [id number] [address] [place] [address], [place] [address] May, [facility] [address] [id number] [address] [place] [address], [place] [address] May, [facility] [address] [id number] [address] [place] [address], [place] [address] May, [facility] [address] [id number] [address] [place] [address], [place] [address] Apr, [facility] [address] [id number] [address] [place] [address], [place] [address] Apr, [facility] [address] [id number] [address] [place] [address], [place] [address] Apr, [facility] [address] [id number] [address] [place] [address], [place] [address] Apr, [facility] [address] [id number] [address] [place] [address], [place] [address] Mar, [facility] [address] [id number] [address] [place] [address], [place] [address] Mar, [facility] [address] [id number] [address] [place] [address], [place] [address] Mar, [facility] [address] [id number] [address] [place] [address], [place] [address] Mar, [facility] [address] [id number] [address] [place] [address], [place] [address] Mar, [facility] [address] [id number] [address] [place] [address], [place] [address] Mar, [facility] [address] [id number] [address] [place] [address], [place] [address] Feb, [facility] [address] [id number] [address] [place] [address], [place] [address] Feb, [facility] [address] [id number] [address] [place] [address], [place] [address] Jan, [facility] [address] [id number] [address] [place] [address], [place] [address] Jan, [facility] [address] [id number] [address] [place] [address], [place] [address] Jan, [facility] [address] [id number] [address] [place] [address], [place] [address] Jan, [facility] [address] [id number] [address] [place] [address], [place] [address] Jan, [facility] [address] [id number] [address] [place] [address], [place] [address] Jan, [facility] [address] [id number] [address] [place] [address], [place] [address] Jan, [facility] [address] [id number] [address] [place] [address], [place] [address] Dec, [facility] [address] [id number] [address] [place] [address], [place] [address] Dec, [facility] [address] [id number] [address] [place] [address], [place] [address] Nov, [facility] [address] [id number] [address] [place] [address], [place] [address] Nov, [facility] [address] [id number] [address] [place] [address], [place] [address] Nov, [facility] [address] [id number] [address] [place] [address], [place] [address] Oct, [facility] [address] [id number] [address] [place] [address], [place] [address] Oct, [facility] [address] [id number] [address] [place] [address], [place] [address] Oct, [facility] [address] [id number] [address] [place] [address], [place] [address] Oct, [facility] [address] [id number] [address] [place] [address], [place] [address] Sep, [facility] [address] [id number] [address] [place] [address], [place] [address] Sep, [facility] [address] [id number] [address] [place] [address], [place] [address] Aug, [facility] [address] [id number] [address] [place] [address], [place] [address] Aug, [facility] [address] [id number] [address] [place] [address], [place] [address] Aug, [facility] [address] [id number] [address] [place] [address], [place] [address] Aug, [facility] [address] [id number] [address] [place] [address], [place] [address] July, [facility] [address] [id number] [address] [place] [address] July, [facility] [address] [id number] [address] [place] [address] July, [facility] [address] [id number] [address] [place] [address] July, [facility] [address] [id number] [address] [place] [address] Jun, [facility] [address] [id number] [address] [place] [address] Jun, [facility] [address] [facility] [id number] [address] [place] [address] Feb, [facility] [address] [facility] [id number] [address] [place] [address] Feb, [facility] [address] [facility] [id number] [address] [place] [address] Mar, IMMUNIZATIONS No Known Immunizations SOCIAL HISTORY [...]
--- OUTSIDE RECORDS SUMMARY | 2019-08-16 14:15 | XMS REPORT ---
Author Author Joseph MARIA Organization [facility] Address [address] [place] [address] Care Team Providers Care Spanner Operator Name Role Phone MIRELLA MARIA Unavailable PROBLEMS Type Condition ICD9-CM Code FSA06-QN Code Onset Dates Condition S tatus SNOMED Code Problem Shoulder pain, right M25.511 Active 66557855 Problem Hypertension, benign I10 Active 93206431 Problem Diabetes type 2, uncontrolled E11.65 Active 075951600 Problem Mood disorder F39 Active 992853 05 Problem Type 2 diabetes mellitus without complications E11 .9 Active 615370138 Problem Low back pain M54.5 Active 866974 005 Problem 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 Active 783793713 Problem Acquired hypothyroidism E03.9 Active 229406725 Problem Diabetes type 2, controlled E11.9 Ac tive 07670689 Problem Controlled type 2 diabetes m ellitus without complication, without long- term current use of insulin E11.9 Active 177704378 Problem History of urethral stricture Z87.448 Active 648702152 Problem Cervical radiculopathy M54.12 Active 84959959 ALLERGIES No Information ENCOUNTERS Encounter Location Date Diagnosis [place] [id number] [place] [address] Aug, Diabetes type 2, uncontrolle d E11.65 [facility] [address] [facility] [id number] [address] [place] [address] July, [facility] [address] [id number] [address] [place] [id number] July, Dental examination Z01.20 an d Caries K02.9 [facility] [address] [facility] [id number] [address] [place] [address] Jun, Controlled type 2 diabetes m ellitus without complication, without long-term current use of insulin E11.9 [facility] [address] [facility] [id number] [address] [place] [address] May, Controlled type 2 diabetes m erika without complication, without long-term current use of insulin E11.9 [facility] [address] [facility] [id number] [address] [place] [address] Apr, [facility] [address] [facility] [id number] [address] [place] [address] Mar, Controlled type 2 diabetes m erika without complication, without long-term current use of insulin E11.9 [place] [address] [facility] [id number] [address] [place] [address] Jan, [place] [address] [facility] [id number] [address] [place] [address] Dec, Diabetes type 2, uncontrolle d E11.65 [place] [address] [place] [id number] [address] [place] [address] Dec, Type 2 diabetes mellitus wit hout complications E11.9 ; 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 and Cervicalgia M54.2 [place] [address] [facility] [id number] [address] [place] [address] Dec, Type 2 diabetes mellitus wit hout complications E11.9 ; 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 and Cervicalgia M54.2 [place] [address] [facility] [id number] [address] [place] [address] Dec, Controlled type 2 diabetes m erika without complication, without long-term current use of insulin E11.9 [facility] [address] [facility] [id number] [address] [place] [address] Nov, [facility] [address] [facility] [id number] [address] [place] [address] Oct, Diabetes type 2, uncontrolle d E11.65 [facility] [address] [facility] [id number] [address] [place] [address] Sep, Diabetes type 2, uncontrolle d E11.65 [facility] [address] [id number] [address] [place] [address] Jun, Controlled type 2 diabetes m ellitus without complication, without long-term current use of insulin E11.9 [facility] [address] [id number] [address] [place] [address] May, [facility] [address] [id number] [address] [place] [address] 16 May, 2017 Radiculopathy of cervical re gion M54.12 [facility] [address] [id number] [address] [place] [address] 14 May, 2017 Controlled type 2 diabetes m ellitus without complication, without long-term current use of insulin E11.9 [facility] [address] [id number] [address] [place] [address] May, [facility] [address] [id number] [address] [place] [address] May, Controlled type 2 diabetes m ellitus without complication, without long-term current use of insulin E11.9 [facility] [address] [id number] [address] [place] [address] May, Controlled type 2 diabetes m ellitus without complication, without long-term current use of insulin E11.9 [facility] [address] [id number] [address] [place] [address] May, Controlled type 2 diabetes m ellitus without complication, without long-term current use of insulin E11.9 [facility] [address] [id number] [address] [place] [address] Apr, [facility] [address] [facility] [id number] [address] [place] [address] Apr, Controlled type 2 diabetes m ellitus without complication, without long-term current use of insulin E11.9 [facility] [address] [facility] [id number] [address] [place] [address] Apr, [facility] [address] [id number] [address] [place] [address] Apr, Controlled type 2 diabetes m ellitus without complication, without long-term current use of insulin E11.9 [place] [address] [id number] [address] [place] [address] Mar, [place] [address] [facility] [id number] [address] [place] [address] Mar, Radiculopathy of cervical re gion M54.12 [place] [address] [id number] [address] [place] [address] Mar, Controlled type 2 diabetes m ellitus without complication, without long-term current use of insulin E11.9 [place] [address] [facility] [id number] [address] [place] [address] Feb, Cervical radiculopathy M54.1 2 ; Acute cystitis without hematuria N30.00 and History of urethral stricture Z87.448 [place] [address] [id number] [address] [place] [address] Feb, Controlled type 2 diabetes m ellitus without complication, without long-term current use of insulin E11.9 [place] [address] [facility] [id number] [address] [place] [address] Feb, [place] [address] [id number] [address] [place] [address] Jan, Diabetes type 2, uncontrolle d E11.65 [place] [address] [id number] [address] [place] [address] Jan, [place] [address] [id number] [address] [place] [address] Jan, Controlled type 2 diabetes m ellitus without complication, without long-term current use of insulin E11.9 ; Chest wall pain R07.89 and Thoracic spine pain M54.6 [place] [address] [facility] [id number] [address] [place] [address] Dec, [facility] [address] [id number] [address] [place] [address], [place] [address] Dec, [facility] [address] [id number] [address] [place] [address], [place] [address] Nov, [facility] [address] [id number] [address] [place] [address], [place] [address] Nov, [facility] [address] [id number] [address] [place] [address], [place] [address] Nov, Trichomonas exposure Z20.2 [facility] [address] [id number] [address] [place] [address], [place] [address] Oct, [facility] [address] [id number] [address] [place] [address] Oct, [facility] [address] [id number] [address] [place] [address], [place] [address] Oct, [facility] [address] [id number] [address] [place] [address] Oct, [facility] [address] [id number] [address] [place] [address], [place] [address] Sep, [facility] [address] [id number] [address] [place] [address] Sep, [facility] [address] [id number] [address] [place] [address] Aug, [facility] [address] [id number] [address] [place] [address] Aug, [facility] [address] [id number] [address] [place] [address] Aug, [facility] [address] [id number] [address] [place] [address] Aug, [facility] [address] [id number] [address] [place] [address] July, Diabetes type 2, controlled E11.9 [facility] [address] [id number] [address] [place] [address], [place] [address] July, [facility] [address] [id number] [address] [place] [address] July, [facility] [address] [id number] [address] [place] [address], [place] [address] July, [facility] [address] [id number] [address] [place] [address], [place] [address] July, [facility] [address] [id number] [address] [place] [address], [place] [address] Jun, [facility] [address] [id number] [address] [place] [address], [place] [address] Jun, [facility] [address] [id number] [address] [place] [address] May, [facility] [address] [id number] [address] [place] [address] May, [facility] [address] [id number] [address] [place] [address] May, [facility] [address] [id number] [address] [place] [address] May, Controlled type 2 diabetes m ellitus without complication, without long-term current use of insulin E11.9 [facility] [address] [id number] [address] [place] [address] 15 Apr, 2016 [facility] [address] [id number] [address] [place] [address] Apr, [facility] [address] [id number] [address] [place] [address] Mar, [facility] [address] [id number] [address] [place] [address] Mar, [facility] [address] [id number] [address] [place] [address] Feb, [facility] [address] [id number] [address] [place] [address] Feb, [facility] [address] [id number] [address] [place] [address] Jan, [facility] [address] [id number] [address] [place] [address] Jan, [facility] [address] [id number] [address] [place] [address] Jan, [facility] [address] [id number] [address] [place] [address] Dec, [facility] [address] [id number] [address] [place] [address] Dec, [facility] [address] [id number] [address] [place] [address] Dec, [facility] [address] [id number] [address] [place] [address] Nov, Diabetes type 2, uncontrolle d E11.65 [facility] [address] [id number] [address] [place] [address] 14 Nov, 2015 [facility] [address] [id number] [address] [place] [address] Nov, [facility] [address] [id number] [address] [place] [address] Oct, [facility] [address] [id number] [address] [place] [address] Oct, [facility] [address] [id number] [address] [place] [address] Sep, Controlled type 2 diabetes m ellitus without complication, without long-term current use of insulin E11.9 [facility] [address] [id number] [address] [place] [address] Sep, [facility] [address] [id number] [address] [place] [address] Sep, [facility] [address] [id number] [address] [place] [address] Sep, [facility] [address] [id number] [address] [place] [address] Sep, [facility] [address] [id number] [address] [place] [address] Aug, Diabetes type 2, controlled E11.9 ; Anxiety F41.9 ; Carpal tunnel syndrome, left upper limb G56.02 and Carpal tunnel syndrome, right upper limb G56.01 [facility] [address] [id number] [address] [place] [address] Aug, Urethritis N34.2 [facility] [address] [id number] [address] [place] [address] Aug, [facility] [address] [id number] [address] [place] [address] July, Genital warts A63.0 [facility] [address] [id number] [address] [place] [address] July, [facility] [address] [id number] [address] [place] [address] July, Genital warts A63.0 [facility] [address] [id number] [address] [place] [address] July, Anxiety F41.9 [facility] [address] [id number] [address] [place] [address] Jun, Genital warts A63.0 [facility] [address] [id number] [address] [place] [address] Jun, Anxiety F41.9 [facility] [address] [id number] [address] [place] [address] May, Genital warts A63.0 and Diab etes type 2, uncontrolled E11.65 [facility] [address] [id number] [address] [place] [address] May, [facility] [address] [facility] [id number] [address] [place] [address] May, [facility] [address] [facility] [id number] [address] [place] [address] Apr, [facility] [address] [facility] [id number] [address] [place] [address] Apr, [facility] [address] [facility] [id number] [address] [place] [address] Apr, Diabetes type 2, controlled E11.9 [facility] [address] [facility] [id number] [address] [place] [address] Apr, Genital warts A63.0 [facility] [address] [facility] [id number] [address] [place] [address] Apr, [facility] [address] [facility] [id number] [address] [place] [address] Apr, Diabetes type 2, uncontrolle d E11.65 and Genital warts A63.0 [facility] [address] [facility] [id number] [address] [place] [address] Apr, [facility] [address] [facility] [id number] [address] [place] [address] Mar, [facility] [address] [facility] [id number] [address] [place] [address] Mar, [facility] [address] [place] [id number] [address] [place] [address] Mar, Family history of diabetes m ellitus V18.0 and Weight loss R63.4 [facility] [address] [facility] [id number] [address] [place] [address] Mar, Genital warts A63.0 and Fami ly history of diabetes mellitus V18.0 [facility] [address] [facility] [id number] [address] [place] [address] Feb, [facility] [address] [facility] [id number] [address] [place] [address] Jan, [facility] [address] [facility] [id number] [address] [place] [address] Jan, Perianal venereal warts A63. 0 [facility] [address] [facility] [id number] [address] [place] [address] Jan, Urethritis N34.2 and Anxiety F41.9 [facility] [address] [facility] [id number] [address] [place] [address] Jan, [facility] [address] [place] [id number] [address] [place] [address] Jan, Urinary tract infection, sit e unspecified N39.0 [facility] [address] [place] [id number] [address] [place] [address] Jan, [facility] [address] [facility] [id number] [address] [place] [address] Dec, [facility] [address] [place] [id number] [address] [place] [address] Dec, HPV (human papilloma virus) anogenital infection A63.0 ; Anxiety F41.9 and Gastroesophageal reflux disease without esophagitis K21.9 [facility] [address] [place] [id number] [address] [place] [address] Sep, Blood in stool 578.1 [facility] [address] [facility] [id number] [address] [place] [address] Aug, Blood in stool 578.1 [facility] [address] [place] [id number] [address] [place] [address] Aug, Anxiety 300.00 and Blood in stool 578.1 [facility] [address] [place] [id number] [address] [place] [address] July, [facility] [address] [place] [id number] [address] [place] [address] July, Family history of diabetes m yaraitus V18.0 [facility] [address] [facility] [id number] [address] [place] [address] July, Family history of diabetes m ellitus V18.0 ; Family history of thyroid disease V18.19 ; Polyuria 788.42 ; Polydipsia 783.5 ; Alopecia 704.00 and Fatigue 780.79 [facility] [address] [id number] [address] [place] [address] Jun, [facility] [address] [id number] [address] [place] [address] Jun, [facility] [address] [facility] [id number] [address] [place] [address] Mar, [facility] [address] [facility] [id number] [address] [place] [address] Mar, [facility] [address] [id number] [address] [place] [address] Mar, [facility] [address] [id number] [address] [place] [address] Mar, [facility] [address] [facility] [id number] [address] [place] [address] Mar, [facility] [address] [facility] [id number] [address] [place] [address] Mar, [facility] [address] [id number] [address] [place] [address] Mar, [facility] [address] [id number] [address] [place] [address] Mar, [facility] [address] [facility] [id number] [address] [place] [id number] Mar, [facility] [address] [facility] [id number] [address] [place] [address] Mar, [facility] [address] [id number] [address] [place] [address], [place] [address] Feb, [facility] [address] [id number] [address] [place] [address], [place] [address] Feb, [facility] [address] [id number] [address] [place] [address], [place] [address] Jan, [facility] [address] [id number] [address] [place] [address], [place] [address] Jan, [facility] [address] [id number] [address] [place] [address], [place] [address] Jan, [facility] [address] [id number] [address] [place] [address], [place] [address] Jan, [facility] [address] [id number] [address] [place] [address], [place] [address] Dec, [facility] [address] [id number] [address] [place] [address], [place] [address] Dec, [facility] [address] [id number] [address] [place] [address], [place] [address] Nov, [facility] [address] [id number] [address] [place] [address], [place] [address] Nov, [facility] [address] [id number] [address] [place] [address], [place] [address] Oct, [facility] [address] [id number] [address] [place] [address], [place] [address] Oct, [facility] [address] [id number] [address] [place] [address], [place] [address] Oct, [facility] [address] [id number] [address] [place] [address], [place] [address] Oct, [facility] [address] [id number] [address] [place] [address], [place] [address] Oct, [facility] [address] [id number] [address] [place] [address], [place] [address] Oct, [facility] [address] [id number] [facility] [place] [address] Oct, [facility] [address] [id number] [address] [place] [address], [place] [address] Oct, [facility] [address] [id number] [address] [place] [address], [place] [address] Sep, [facility] [address] [id number] [address] [place] [address], [place] [address] Sep, [facility] [address] [id number] [address] [place] [address], [place] [address] Sep, [facility] [address] [id number] [address] [place] [address], [place] [address] Sep, [facility] [address] [id number] [address] [place] [address], [place] [address] Aug, [facility] [address] [id number] [address] [place] [address], [place] [address] Aug, [facility] [address] [id number] [address] [place] [address], [place] [address] Aug, [facility] [address] [id number] [address] [place] [address], [place] [address] Aug, [facility] [address] [id number] [address] [place] [address], [place] [address] July, [facility] [address] [id number] [address] [place] [address], [place] [address] July, [facility] [address] [id number] [address] [place] [address], [place] [address] July, [facility] [address] [id number] [address] [place] [address], [place] [address] July, [facility] [address] [id number] [address] [place] [address], [place] [address] July, [facility] [address] [id number] [address] [place] [address], [place] [address] July, [facility] [address] [id number] [address] [place] [address], [place] [address] 23 Jun, 2013 [facility] [address] [id number] [address] [place] [address], [place] [address] 23 Jun, 2013 [facility] [address] [id number] [address] [place] [address], [place] [address] 15 Jun, 2013 [facility] [address] [id number] [address] [place] [address], [place] [address] 15 Jun, 2013 [facility] [address] [id number] [address] [place] [address], [place] [address] 14 Jun, 2013 [facility] [address] [id number] [address] [place] [address], [place] [address] Jun, [facility] [address] [id number] [address] [place] [address], [place] [address] Jun, [facility] [address] [id number] [address] [place] [address], [place] [id number] 14 Jun, 2013 [facility] [address] [id number] [address] [place] [address], [place] [address] May, [facility] [address] [id number] [address] [place] [address], [place] [address] May, [facility] [address] [id number] [address] [place] [address], [place] [address] May, [facility] [address] [id number] [address] [place] [address], [place] [address] Apr, [facility] [address] [id number] [address] [place] [address], [place] [address] Apr, [facility] [address] [id number] [address] [place] [address], [place] [address] Apr, [facility] [address] [id number] [address] [place] [address], [place] [address] Apr, [facility] [address] [id number] [address] [place] [address], [place] [address] Mar, [facility] [address] [id number] [address] [place] [address], [place] [address] Mar, [facility] [address] [id number] [address] [place] [address], [place] [address] Mar, [facility] [address] [id number] [address] [place] [address], [place] [address] Mar, [facility] [address] [id number] [address] [place] [address], [place] [address] Mar, [facility] [address] [id number] [address] [place] [address], [place] [address] Mar, [facility] [address] [id number] [address] [place] [address], [place] [address] Feb, [facility] [address] [id number] [address] [place] [address], [place] [address] Feb, [facility] [address] [id number] [address] [place] [address], [place] [address] Jan, [facility] [address] [id number] [address] [place] [address], [place] [address] Jan, [facility] [address] [id number] [address] [place] [address], [place] [address] Jan, [facility] [address] [id number] [address] [place] [address], [place] [address] Jan, [facility] [address] [id number] [address] [place] [address], [place] [address] Jan, [facility] [address] [id number] [address] [place] [address], [place] [address] Jan, [facility] [address] [id number] [address] [place] [address], [place] [address] Jan, [facility] [address] [id number] [address] [place] [address], [place] [address] Dec, [facility] [address] [id number] [address] [place] [address], [place] [address] Dec, [facility] [address] [id number] [address] [place] [address], [place] [address] Nov, [facility] [address] [id number] [address] [place] [address], [place] [address] Nov, [facility] [address] [id number] [address] [place] [address], [place] [address] Nov, [facility] [address] [id number] [address] [place] [address], [place] [address] Oct, [facility] [address] [id number] [address] [place] [address], [place] [address] Oct, [facility] [address] [id number] [address] [place] [address], [place] [address] Oct, [facility] [address] [id number] [address] [place] [address], [place] [address] Oct, [facility] [address] [id number] [address] [place] [address], [place] [address] Sep, [facility] [address] [id number] [address] [place] [address], [place] [address] Sep, [facility] [address] [id number] [address] [place] [address], [place] [address] Aug, [facility] [address] [id number] [address] [place] [address], [place] [address] Aug, [facility] [address] [id number] [address] [place] [address], [place] [address] Aug, [facility] [address] [id number] [address] [place] [address], [place] [address] Aug, [facility] [address] [id number] [address] [place] [address], [place] [address] July, [facility] [address] [id number] [address] [place] [id number] July, [facility] [address] [id number] [address] [place] [address] July, [facility] [address] [id number] [address] [place] [address] July, [facility] [address] [facility] [id number] [address] [place] [address] Jun, [facility] [address] [id number] [address] [place] [address] Jun, [facility] [address] [facility] [id number] [address] [place] [address] Feb, [facility] [address] [facility] [id number] [address] [place] [address] Feb, [facility] [address] [facility] [id number] [address] [place] [address] Mar, IMMUNIZATIONS No Known Immunizations SOCIAL HISTORY Never Assessed REASON FOR VISIT PLAN OF CARE VITAL SIGNS MEDICATIONS Unknown Medications RESULTS No Results PROCEDURES Procedure Date Ordered Result Body Site VISIT Apr 15, 2014 INSTRUCTIONS MEDICATIONS ADMINISTERED No Known Medications [...]
--- OUTSIDE RECORDS SUMMARY | 2019-08-16 14:16 | XMS REPORT ---
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 Name Role Phone Migration, Doctor Unavailable Unavailable PROBLEMS Type Condition ICD9-CM Code VCZ75-CF Code Onset Dates Condition S tatus SNOMED Code Problem Shoulder pain, right M25.511 Active 23666555 Problem Hypertension, benign I10 Active 22326803 Problem Diabetes type 2, uncontrolled E11.65 Active 780745528 Problem Mood disorder F39 Active 234201 05 Problem Type 2 diabetes mellitus without complications E11 .9 Active 708843866 Problem Low back pain M54.5 Active 976171 005 Problem 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 [address] [id number] [address] [place] [address] Aug, [facility] [address] [facility] [id number] [address] [place] [address] [id number] July, Dental examination Z01.20 an d Caries K02.9 [facility] [address] [facility] [id number] [address] [place] [address] Jun, Controlled type 2 diabetes m ellitus without complication, without long-term current use of insulin E11.9 [facility] [address] [facility] [id number] [address] [place] [address] May, Controlled type 2 diabetes m ellitus without complication, without long-term current use of insulin E11.9 [facility] [address] [facility] [id number] [address] [place] [address] Apr, [facility] [address] [facility] [id number] [address] [place] [address] Mar, Controlled type 2 diabetes m erika without complication, without long-term current use of insulin E11.9 [place] [address] [facility] [id number] [address] [place] [address] Jan, [facility] [address] [facility] [id number] [address] [place] [address] Dec, Diabetes type 2, uncontrolle d E11.65 [place] [address] 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 [id number] [address] [place] [address] Dec, Type 2 diabetes mellitus wit hout complications E11.9 ; snf current use of insulin Z79.4 and Cervicalgia M54.2 [place] [address] [facility] [id number] [address] [place] [address] Dec, Controlled type 2 diabetes m erika without complication, without long-term current use of insulin E11.9 [place] [address] [facility] [id number] [address] [place] [address] Nov, [facility] [address] [facility] [id number] [address] [place] [address] Oct, Diabetes type 2, uncontrolle d E11.65 [facility] [address] [id number] [address] [place] [address] Sep, Diabetes type 2, uncontrolle d E11.65 [facility] [address] [facility] [id number] [address] [place] [address] Jun, Controlled type 2 diabetes m yaraitus without complication, without long-term current use of insulin E11.9 [place] [address] [id number] [address] [place] [address] May, [facility] [address] [id number] [address] [place] [address] 16 May, 2017 Radiculopathy of cervical re gion M54.12 [facility] [address] [id number] [address] [place] [address] 14 May, 2017 Controlled type 2 diabetes m ellitus without complication, without long-term current use of insulin E11.9 [facility] [address] [id number] [address] [place] [address] May, [facility] [address] [id number] [address] [place] [address] May, Controlled type 2 diabetes m ellitus without complication, without long-term current use of insulin E11.9 [facility] [address] [id number] [address] [place] [address] May, Controlled type 2 diabetes m ellitus without complication, without long-term current use of insulin E11.9 [facility] [address] [id number] [address] [place] [address] May, Controlled type 2 diabetes m ellitus without complication, without long-term current use of insulin E11.9 [facility] [address] [id number] [address] [place] [address] Apr, [facility] [address] [id number] [address] [place] [address] Apr, Controlled type 2 diabetes m ellitus without complication, without long-term current use of insulin E11.9 [facility] [address] [id number] [address] [place] [address] Apr, [facility] [address] [id number] [address] [place] [address] Apr, Controlled type 2 diabetes m ellitus without complication, without long-term current use of insulin E11.9 [facility] [address] [id number] [address] [place] [address] Mar, [facility] [address] [id number] [address] [place] [address] Mar, Radiculopathy of cervical re gion M54.12 [facility] [address] [id number] [address] [place] [address] Mar, Controlled type 2 diabetes m ellitus without complication, without long-term current use of insulin E11.9 [place] [address] [id number] [address] [place] [address] Feb, Cervical radiculopathy M54.1 2 ; Acute cystitis without hematuria N30.00 and History of urethral stricture Z87.448 [place] [address] [id number] [address] [place] [address] Feb, Controlled type 2 diabetes m ellitus without complication, without long-term current use of insulin E11.9 [place] [address] [id number] [address] [place] [address] Feb, [place] [address] [id number] [address] [place] [address] Jan, Diabetes type 2, uncontrolle d E11.65 [place] [address] [id number] [address] [place] [address] Jan, [place] [address] [id number] [address] [place] [address] Jan, Controlled type 2 diabetes m ellitus without complication, without long-term current use of insulin E11.9 ; Chest wall pain R07.89 and Thoracic spine pain M54.6 [place] [address] [id number] [address] [place] [address] Dec, [place] [address] [id number] [address] [place] [address] Dec, [place] [address] [id number] [address] [place] [address] Nov, [facility] [address] [id number] [address] [place] [address], [place] [address] Nov, [facility] [address] [id number] [address] [place] [address], [place] [address] Nov, Trichomonas exposure Z20.2 [facility] [address] [id number] [address] [place] [address], [place] [address] Oct, [facility] [address] [id number] [address] [place] [address], [place] [address] Oct, [facility] [address] [id number] [address] [place] [address], [place] [address] Oct, [facility] [address] [id number] [address] [place] [address], [place] [address] Oct, [facility] [address] [id number] [address] [place] [address], [place] [address] Sep, [facility] [address] [id number] [address] [place] [address], [place] [address] Sep, [facility] [address] [id number] [address] [place] [address], [place] [address] Aug, [facility] [address] [id number] [address] [place] [address], [place] [address] Aug, [facility] [address] [id number] [address] [place] [address] Aug, [facility] [address] [id number] [address] [place] [address] Aug, [facility] [address] [id number] [address] [place] [address] July, Diabetes type 2, controlled E11.9 [facility] [address] [id number] [address] [place] [address] July, [facility] [address] [id number] [address] [place] [address] July, [facility] [address] [id number] [address] [place] [address] July, [facility] [address] [id number] [address] [place] [address] July, [facility] [address] [id number] [address] [place] [address] Jun, [facility] [address] [id number] [address] [place] [address] Jun, [facility] [address] [id number] [address] [place] [address] May, [facility] [address] [id number] [address] [place] [address] May, [facility] [address] [id number] [address] [place] [address] May, [facility] [address] [id number] [address] [place] [address] May, Controlled type 2 diabetes m ellitus without complication, without long-term current use of insulin E11.9 [facility] [address] [id number] [address] [place] [address] Apr, [facility] [address] [id number] [address] [place] [address] Apr, [facility] [address] [id number] [address] [place] [address] Mar, [facility] [address] [id number] [address] [place] [address] Mar, [facility] [address] [id number] [address] [place] [address] Feb, [facility] [address] [id number] [address] [place] [address] Feb, [facility] [address] [id number] [address] [place] [address] Jan, [facility] [address] [id number] [address] [place] [address] Jan, [facility] [address] [id number] [address] [place] [address] Jan, [facility] [address] [id number] [address] [place] [address] Dec, [facility] [address] [id number] [address] [place] [address] Dec, [facility] [address] [id number] [address] [place] [address] Dec, [facility] [address] [id number] [address] [place] [phone] 29 Nov, 2015 Diabetes type 2, uncontrolle d E11.65 [facility] [address] [id number] [address] [place] [address] 14 [address], 2015 [facility] [address] [id number] [address] [place] [address] Nov, [facility] [address] [id number] [address] [place] [address] Oct, [facility] [address] [id number] [address] [place] [address] Oct, [facility] [address] [id number] [address] [place] [address] Sep, Controlled type 2 diabetes m ellitus without complication, without long-term current use of insulin E11.9 [facility] [address] [id number] [address] [place] [address] Sep, [facility] [address] [id number] [address] [place] [address] Sep, [facility] [address] [id number] [address] [place] [address] Sep, [facility] [address] [id number] [address] [place] [address] Sep, [facility] [address] [id number] [address] [place] [address] Aug, Diabetes type 2, controlled E11.9 ; Anxiety F41.9 ; Carpal tunnel syndrome, left upper limb G56.02 and Carpal tunnel syndrome, right upper limb G56.01 [facility] [address] [id number] [address] [place] [address] Aug, Urethritis N34.2 [facility] [address] [id number] [address] [place] [address] Aug, [facility] [address] [id number] [address] [place] [address] July, Genital warts A63.0 [facility] [address] [id number] [address] [place] [address] July, [facility] [address] [id number] [address] [place] [address] July, Genital warts A63.0 [facility] [address] [id number] [address] [place] [address] July, Anxiety F41.9 [facility] [address] [id number] [address] [place] [address] Jun, Genital warts A63.0 [facility] [address] [id number] [address] [place] [address] Jun, Anxiety F41.9 [facility] [address] [id number] [address] [place] [address] May, Genital warts A63.0 and Diab etes type [address], [address] [facility] [address] [id number] [address] [place] [address] May, [facility] [address] [id number] [address] [place] [address] May, [facility] [address] [id number] [address] [place] [address] Apr, [facility] [address] [id number] [address] [place] [address] Apr, [facility] [address] [facility] [id number] [address] [place] [address] Apr, Diabetes type 2, controlled E11.9 [facility] [address] [id number] [address] [place] [address] Apr, Genital warts A63.0 [facility] [address] [id number] [address] [place] [address] Apr, [facility] [address] [facility] [id number] [address] [place] [address] Apr, Diabetes type 2, uncontrolle d E11.65 and Genital warts A63.0 [facility] [address] [facility] [id number] [address] [place] [address] Apr, [facility] [address] [facility] [id number] [address] [place] [address] Mar, [facility] [address] [facility] [id number] [address] [place] [address] Mar, [facility] [address] [place] [id number] [address] [place] [address] Mar, Family history of diabetes m ellitus V18.[address] [facility] [address] [id number] [address] [place] [address] Mar, Genital warts A63.0 and Fami ly history of diabetes mellitus V18.0 [facility] [address] [facility] [id number] [address] [place] [address] Feb, [facility] [address] [facility] [id number] [address] [place] [address] Jan, [facility] [address] [facility] [id number] [address] [place] [address] Jan, Perianal venereal warts A63. [address] [facility] [address] [facility] [id number] [address] [place] [address] Jan, Urethritis N34.[address] [facility] [address] [place] [address] [id number] [address] [place] [address] Jan, [facility] [address] [place] [id number] [address] [place] [address] Jan, Urinary tract infection, sit e unspecified N39.0 [place] [address] [facility] [id number] [address] [place] [address] Jan, [facility] [address] [place] [id number] [place] [address] Dec, [facility] [address] [place] [id number] [place] [address] Dec, HPV (human papilloma virus) anogenital infection A63.0 ; Anxiety F41.9 and Gastroesophageal reflux disease without esophagitis K21.9 [place] [address] [place] [id number] [address] [place] [address] Sep, Blood in stool 578.1 [place] [address] [place] [id number] [place] [address] Aug, Blood in stool 578.1 [place] [address] [place] [id number] [address] [place] [address] Aug, Anxiety 300.00 and Blood in stool 578.1 [facility] [address] [facility] [id number] [address] [place] [address] July, [facility] [address] [place] [id number] [address] [place] [address] July, Family history of diabetes m ellitus V18.0 [facility] [address] [place] [id number] [address] [place] [address] July, Family history of diabetes m ellitus V18.0 ; Family history of thyroid disease V18.19 ; Polyuria 788.42 ; Polydipsia 783.5 ; Alopecia 704.[address] [facility] [address] [facility] [id number] [address] [place] [address] [address], 2014 [facility] [address] [facility] [id number] [address] [place] [address] Jun, [facility] [address] [id number] [address] [place] [address] Mar, [facility] [address] [id number] [address] [place] [address] Mar, [facility] [address] [facility] [id number] [address] [place] [address] Mar, [facility] [address] [facility] [id number] [address] [place] [address] Mar, [facility] [address] [facility] [id number] [address] [place] [address] Mar, [facility] [address] [facility] [id number] [address] [place] [address] Mar, [facility] [address] [facility] [id number] [address] [place] [address] Mar, [facility] [address] [facility] [id number] [address] [place] [address] Mar, [facility] [address] [facility] [id number] [address] [place] [address] Mar, [facility] [address] [facility] [id number] [address] [place] [address] Mar, [facility] [address] [facility] [id number] [address] [place] [address] Feb, [facility] [address] [facility] [id number] [address] [place] [address] Feb, [facility] [address] [id number] [address] [place] [address], [place] [address] Jan, [facility] [address] [id number] [address] [place] [address], [place] [address] Jan, [facility] [address] [id number] [address] [place] [address], [place] [address] Jan, [facility] [address] [id number] [address] [place] [address], [place] [address] Jan, [facility] [address] [id number] [address] [place] [address], [place] [address] Dec, [facility] [address] [id number] [address] [place] [address], [place] [address] Dec, [facility] [address] [id number] [address] [place] [address], [place] [address] Nov, [facility] [address] [id number] [address] [place] [address], [place] [address] Nov, [facility] [address] [id number] [address] [place] [address], [place] [address] Oct, [facility] [address] [id number] [address] [place] [address], [place] [address] Oct, [facility] [address] [id number] [address] [place] [address], [place] [address] Oct, [facility] [address] [id number] [address] [place] [address], [place] [address] Oct, [facility] [address] [id number] [address] [place] [address], [place] [address] Oct, [facility] [address] [id number] [address] [place] [address], [place] [address] Oct, [facility] [address] [id number] [address] [place] [address], [place] [address] Oct, [facility] [address] [id number] [address] [place] [address], [place] [address] Oct, [facility] [address] [id number] [address] [place] [address], [place] [address] Sep, [facility] [address] [id number] [address] [place] [address], [place] [address] Sep, [facility] [address] [id number] [address] [place] [address], [place] [address] Sep, [facility] [address] [id number] [address] [place] [address], [place] [address] Sep, [facility] [address] [id number] [address] [place] [address], [place] [address] Aug, [facility] [address] [id number] [address] [place] [address], [place] [address] Aug, [facility] [address] [id number] [address] [place] [address], [place] [address] Aug, [facility] [address] [id number] [address] [place] [address], [place] [address] Aug, [facility] [address] [id number] [address] [place] [address], [place] [address] July, [facility] [address] [id number] [address] [place] [address], [place] [address] July, [facility] [address] [id number] [address] [place] [address], [place] [address] July, [facility] [address] [id number] [address] [place] [address], [place] [address] July, [facility] [address] [id number] [address] [place] [address], [place] [address] July, [facility] [address] [id number] [address] [place] [address], [place] [address] July, [facility] [address] [id number] [address] [place] [address], [place] [address] Jun, [facility] [address] [id number] [address] [place] [address], [place] [address] 23 Jun, 2013 [facility] [address] [id number] [address] [place] [address], [place] [address] 15 Jun, 2013 [facility] [address] [id number] [address] [place] [address], [place] [address] 15 Jun, 2013 [facility] [address] [id number] [address] [place] [address], [place] [address] 14 Jun, 2013 [facility] [address] [id number] [address] [place] [address], [place] [address] 14 Jun, 2013 [facility] [address] [id number] [address] [place] [address], [place] [address] Jun, [facility] [address] [id number] [address] [place] [address], [place] [address] Jun, [facility] [address] [id number] [address] [place] [address], [place] [address] 19 May, 2013 [facility] [address] [id number] [address] [place] [address], [place] [address] 19 May, 2013 [facility] [address] [id number] [address] [place] [address], [place] [id number] 18 May, 2013 [facility] [address] [id number] [address] [place] [address], [place] [address] Apr, [facility] [address] [id number] [address] [place] [address], [place] [address] Apr, [facility] [address] [id number] [address] [place] [address], [place] [address] Apr, [facility] [address] [id number] [address] [place] [address], [place] [address] Apr, [facility] [address] [id number] [address] [place] [address], [place] [address] Mar, [facility] [address] [id number] [address] [place] [address], [place] [address] Mar, [facility] [address] [id number] [address] [place] [address], [place] [address] Mar, [facility] [address] [id number] [address] [place] [address], [place] [address] Mar, [facility] [address] [id number] [address] [place] [address], [place] [address] Mar, [facility] [address] [id number] [address] [place] [address], [place] [address] Mar, [facility] [address] [id number] [address] [place] [address], [place] [address] Feb, [facility] [address] [id number] [address] [place] [address], [place] [address] Feb, [facility] [address] [id number] [address] [place] [address], [place] [address] Jan, [facility] [address] [id number] [address] [place] [address], [place] [address] Jan, [facility] [address] [id number] [address] [place] [address], [place] [address] Jan, [facility] [address] [id number] [address] [place] [address], [place] [address] Jan, [facility] [address] [id number] [address] [place] [address], [place] [address] Jan, [facility] [address] [id number] [address] [place] [address], [place] [address] Jan, [facility] [address] [id number] [address] [place] [address], [place] [address] Jan, [facility] [address] [id number] [address] [place] [address], [place] [address] Dec, [facility] [address] [id number] [address] [place] [address], [place] [address] Dec, [facility] [address] [id number] [address] [place] [address], [place] [address] Nov, [facility] [address] [id number] [address] [place] [address], [place] [address] Nov, [facility] [address] [id number] [address] [place] [address], [place] [address] Nov, [facility] [address] [id number] [address] [place] [address], [place] [address] Oct, [facility] [address] [id number] [address] [place] [address], [place] [address] Oct, [facility] [address] [id number] [address] [place] [address], [place] [address] Oct, [facility] [address] [id number] [address] [place] [address], [place] [address] Oct, [facility] [address] [id number] [address] [place] [address], [place] [address] Sep, [facility] [address] [id number] [address] [place] [address], [place] [address] Sep, [facility] [address] [id number] [address] [place] [address], [place] [address] Aug, [facility] [address] [id number] [address] [place] [address], [place] [address] Aug, [facility] [address] [id number] [address] [place] [address], [place] [address] Aug, [facility] [address] [id number] [address] [place] [address], [place] [address] Aug, [facility] [address] [id number] [address] [place] [address], [place] [address] July, [facility] [address] [id number] [address] [place] [address], [place] [address] July, [facility] [address] [id number] [address] [place] [address], [place] [address] July, [facility] [address] [facility] [id number] [address] [place] [address] July, [facility] [address] [facility] [id number] [address] [place] [address] Jun, [facility] [address] [facility] [id number] [address] [place] [address] Jun, [facility] [address] [facility] [id number] [address] [place] [address] Feb, [facility] [address] [facility] [id number] [address] [place] [address] Feb, [facility] [address] [facility] [id number] [address] [place] [address] Mar, IMMUNIZATIONS No Known Immunizations SOCIAL HISTORY Never Assessed REASON FOR VISIT EMR-[facility] PLAN OF CARE VITAL SIGNS MEDICATIONS Unknown [...]
--- OUTSIDE RECORDS SUMMARY | 2019-08-16 14:16 | XMS REPORT ---
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 Name Role Phone Migration, Doctor Unavailable Unavailable PROBLEMS Type Condition ICD9-CM Code MSS91-ZY Code Onset Dates Condition S tatus SNOMED Code Problem Shoulder pain, right M25.511 Active 27078545 Problem Hypertension, benign I10 Active 02547122 Problem Diabetes type 2, uncontrolled E11.65 Active 449830037 Problem Mood disorder F39 Active 353930 05 Problem Type 2 diabetes mellitus without complications E11 .9 Active 892476039 Problem Low back pain M54.5 Active 853276 005 Problem 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 Active 083526164 Problem Acquired hypothyroidism E03.9 Active 011071188 Problem Diabetes type 2, controlled E11.9 Ac tive 66519465 Problem Controlled type 2 diabetes m ellitus without complication, without long- term current use of insulin E11.9 Active 241617167 Problem History of urethral stricture Z87.448 Active 556444237 Problem Cervical radiculopathy M54.12 Active 63931836 ALLERGIES No Information ENCOUNTERS Encounter Location Date Diagnosis [place] [address] [address] [facility] [id number] [address] [place] [address] Jun, Controlled type 2 diabetes m ellitus without complication, without long-term current use of insulin E11.9 [place] [address] [place] [id number] [address] [place] [address] May, Controlled type 2 diabetes m ellitus without complication, without long-term current use of insulin E11.9 [place] [address] [facility] [id number] [address] [place] [address] Apr, [place] [address] [place] [id number] [address] [place] [address] Mar, Controlled type 2 diabetes m ellitus without complication, without long-term current use of insulin E11.9 [place] [address] [id number] [address] [place] [address] Jan, [facility] [address] [id number] [address] [place] [address] Dec, Diabetes type 2, uncontrolle d E11.65 [facility] [address] [id number] [address] [place] [address] Dec, Type 2 diabetes mellitus wit hout complications E11.9 ; halfway current use of insulin Z79.4 and Cervicalgia M54.2 [facility] [address] [id number] [address] [place] [address] Dec, Type 2 diabetes mellitus wit hout complications E11.9 ; 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 and Cervicalgia M54.2 [place] [address] [id number] [address] [place] [address] Dec, Controlled type 2 diabetes m ellitus without complication, without long-term current use of insulin E11.9 [facility] [address] [id number] [address] [place] [address] Nov, [place] [address] [id number] [address] [place] [address] Oct, Diabetes type 2, uncontrolle d E11.65 [place] [address] [id number] [address] [place] [address] Sep, Diabetes type 2, uncontrolle d E11.65 [facility] [address] [id number] [address] [place] [address] Jun, Controlled type 2 diabetes m ellitus without complication, without long-term current use of insulin E11.9 [facility] [address] [id number] [address] [place] [address] May, [facility] [address] [id number] [address] [place] [address] May, Radiculopathy of cervical re gion M54.12 [facility] [address] [id number] [address] [place] [address] May, Controlled type 2 diabetes m ellitus without complication, without long-term current use of insulin E11.9 [facility] [address] [id number] [address] [place] [phone] May, [facility] [address] [facility] [id number] [address] [place] [phone] May, Controlled type 2 diabetes m ellitus without complication, without long-term current use of insulin E11.9 [facility] [address] [id number] [address] [place] [address] May, Controlled type 2 diabetes m ellitus without complication, without long-term current use of insulin E11.9 [facility] [address] [facility] [id number] [address] [place] [address] May, Controlled type 2 diabetes m ellitus without complication, without long-term current use of insulin E11.9 [facility] [address] [facility] [id number] [address] [place] [address] Apr, [facility] [address] [id number] [address] [place] [address] Apr, Controlled type 2 diabetes m ellitus without complication, without long-term current use of insulin E11.9 [facility] [address] [facility] [id number] [address] [place] [address] Apr, [facility] [address] [id number] [address] [place] [address] Apr, Controlled type 2 diabetes m ellitus without complication, without long-term current use of insulin E11.9 [facility] [address] [facility] [id number] [address] [place] [address] Mar, [facility] [address] [facility] [id number] [address] [place] [address] Mar, Radiculopathy of cervical re gion M54.12 [facility] [address] [id number] [address] [place] [address] 05 Mar, 2017 Controlled type 2 diabetes m ellitus without complication, without long-term current use of insulin E11.9 [facility] [address] [facility] [id number] [address] [place] [address] Feb, Cervical radiculopathy M54.1 2 ; Acute cystitis without hematuria N30.00 and History of urethral stricture Z87.448 [place] [address] [facility] [id number] [address] [place] [address] Feb, Controlled type 2 diabetes m ellitus without complication, without long-term current use of insulin E11.9 [place] [address] [facility] [id number] [address] [place] [address] Feb, [place] [address] [facility] [id number] [address] [place] [address] 15 Jan, 2017 Diabetes type 2, uncontrolle d E11.65 [place] [address] [place] [id number] [address] [place] [address] Jan, [facility] [address] [facility] [id number] [address] [place] [address] Jan, Controlled type 2 diabetes m ellitus without complication, without long-term current use of insulin E11.9 ; Chest wall pain R07.89 and Thoracic spine pain M54.6 [place] [address] [facility] [id number] [address] [place] [address] Dec, [facility] [address] [place] [id number] [address] [place] [address] Dec, [facility] [address] [facility] [id number] [address] [place] [address] Nov, [place] [address] [place] [id number] [address] [place] [address] Nov, [facility] [address] [facility] [id number] [address] [place] [address] 13 Nov, 2016 Trichomonas exposure Z20.2 [facility] [address] [id number] [address] [place] [address], [place] [address] Oct, [facility] [address] [id number] [address] [place] [address], [place] [address] Oct, [facility] [address] [id number] [address] [place] [address], [place] [address] Oct, [facility] [address] [id number] [address] [place] [address], [place] [address] Oct, [facility] [address] [id number] [address] [place] [address], [place] [address] Sep, [facility] [address] [id number] [address] [place] [address], [place] [address] Sep, [facility] [address] [id number] [address] [place] [address], [place] [address] Aug, [facility] [address] [id number] [address] [place] [address], [place] [address] Aug, [facility] [address] [id number] [address] [place] [address], [place] [address] Aug, [facility] [address] [id number] [address] [place] [address], [place] [address] Aug, [facility] [address] [id number] [address] [place] [address], [place] [address] July, Diabetes type 2, controlled E11.9 [facility] [address] [id number] [address] [place] [address], [place] [address] July, [facility] [address] [id number] [address] [place] [address], [place] [address] July, [facility] [address] [id number] [address] [place] [address], [place] [address] July, [facility] [address] [id number] [address] [place] [address], [place] [address] July, [facility] [address] [id number] [address] [place] [phone] 13 Jun, 2016 [facility] [address] [id number] [address] [place] [address] Jun, [facility] [address] [id number] [address] [place] [address] May, [facility] [address] [id number] [address] [place] [phone] May, [facility] [address] [id number] [address] [place] [address] May, [facility] [address] [id number] [address] [place] [address] May, Controlled type 2 diabetes m ellitus without complication, without long-term current use of insulin E11.9 [facility] [address] [id number] [address] [place] [address] Apr, [facility] [address] [id number] [address] [place] [address] Apr, [facility] [address] [id number] [address] [place] [address] Mar, [facility] [address] [id number] [address] [place] [address] Mar, [facility] [address] [id number] [address] [place] [address] Feb, [facility] [address] [id number] [address] [place] [address] Feb, [facility] [address] [id number] [address] [place] [address] Jan, [facility] [address] [id number] [address] [place] [address] Jan, [facility] [address] [id number] [address] [place] [address] Jan, [facility] [address] [id number] [address] [place] [address] Dec, [facility] [address] [id number] [address] [place] [phone] Dec, [facility] [address] [id number] [address] [place] [address] Dec, [facility] [address] [id number] [address] [place] [phone] 29 Nov, 2015 Diabetes type 2, uncontrolle d E11.65 [facility] [address] [id number] [address] [place] [phone] 14 Nov, 2015 [facility] [address] [id number] [address] [place] [address] Nov, [facility] [address] [id number] [address] [place] [phone] Oct, [facility] [address] [id number] [address] [place] [address] Oct, [facility] [address] [id number] [address] [place] [address] Sep, Controlled type 2 diabetes m ellitus without complication, without long-term current use of insulin E11.9 [facility] [address] [id number] [address] [place] [address] Sep, [facility] [address] [id number] [address] [place] [phone] Sep, [facility] [address] [id number] [address] [place] [address] Sep, [facility] [address] [id number] [address] [place] [address] Sep, [facility] [address] [id number] [address] [place] [address] Aug, Diabetes type 2, controlled E11.9 ; Anxiety F41.9 ; Carpal tunnel syndrome, left upper limb G56.02 and Carpal tunnel syndrome, right upper limb G56.01 [facility] [address] [id number] [address] [place] [address] Aug, Urethritis N34.2 [facility] [address] [id number] [address] [place] [address] Aug, [facility] [address] [id number] [address] [place] [address] July, Genital warts A63.0 [facility] [address] [id number] [address] [place] [address] July, [facility] [address] [id number] [address] [place] [address] July, Genital warts A63.0 [facility] [address] [id number] [address] [place] [address] July, Anxiety F41.9 [facility] [address] [id number] [address] [place] [address] Jun, Genital warts A63.0 [facility] [address] [id number] [address] [place] [address] Jun, Anxiety F41.9 [facility] [address] [id number] [address] [place] [address] May, Genital warts A63.0 and Diab etes type 2, uncontrolled E11.65 [facility] [address] [id number] [address] [place] [address] May, [facility] [address] [id number] [address] [place] [address] May, [facility] [address] [id number] [address] [place] [address] Apr, [facility] [address] [id number] [address] [place] [address] Apr, [facility] [address] [id number] [address] [place] [address] Apr, Diabetes type 2, controlled E11.9 [facility] [address] [facility] [id number] [address] [place] [address] Apr, Genital warts A63.0 [facility] [address] [facility] [id number] [address] [place] [address] Apr, [facility] [address] [place] [id number] [place] [address] Apr, Diabetes type 2, uncontrolle d E11.65 and Genital warts A63.0 [facility] [address] [facility] [id number] [address] [place] [address] Apr, [facility] [address] [facility] [id number] [address] [place] [address] Mar, [place] [address] [address] Mar, [facility] [address] [facility] [id number] [address] [place] [address] Mar, Family history of diabetes m ellitus V18.0 and Weight loss R63.4 [place] [address] [place] [id number] [address] [place] [address] Mar, Genital warts A63.0 and Fami ly history of diabetes mellitus V18.0 [place] [id number] [place] [address] Feb, [facility] [address] [facility] [id number] [address] [place] [address] Jan, [facility] [address] [phone] Jan, Perianal venereal warts A63. 0 [facility] [address] [facility] [id number] [address] [place] [address] Jan, Urethritis N34.2 and Anxiety F41.9 [facility] [address] [place] [id number] [address] [place] [address] Jan, [place] [address] [id number] Jan, Urinary tract infection, sit e unspecified N39.0 [place] [address] [place] [id number] [address] [place] [address] Jan, [place] [address] [address] Dec, [place] [address] [place] [id number] [address] [place] [address] Dec, HPV (human papilloma virus) anogenital infection A63.0 ; Anxiety F41.9 and Gastroesophageal reflux disease without esophagitis K21.9 [place] [address] [place] [id number] [address] [place] [address] Sep, Blood in stool 578.1 [place] [address] [address] Aug, Blood in stool 578.1 [place] [address] [address] Aug, Anxiety 300.00 and Blood in stool 578.1 [place] [address] [place] [id number] [address] [place] [address] July, [place] [address] [place] [id number] [address] [place] [address] July, Family history of diabetes m ellitus V18.0 [place] [address] [address] July, Family history of diabetes m ellitus V18.0 ; Family history of thyroid disease V18.19 ; Polyuria 788.42 ; Polydipsia 783.5 ; Alopecia 704.00 and Fatigue 780.79 [place] [address] [place] [id number] [address] [place] [address] Jun, [facility] [address] [id number] [address] [place] [address], [place] [address] Jun, [facility] [address] [id number] [address] [place] [address], [place] [address] Mar, [facility] [address] [id number] [address] [place] [address], [place] [address] Mar, [facility] [address] [id number] [address] [place] [address], [place] [address] Mar, [facility] [address] [id number] [address] [place] [address], [place] [address] Mar, [facility] [address] [id number] [address] [place] [address], [place] [address] Mar, [facility] [address] [id number] [address] [place] [address], [place] [address] Mar, [facility] [address] [id number] [address] [place] [address], [place] [address] Mar, [facility] [address] [id number] [address] [place] [address], [place] [id number] Mar, [facility] [address] [id number] [address] [place] [address], [place] [id number] Mar, [facility] [address] [id number] [address] [place] [address], [place] [id number] Mar, [facility] [address] [id number] [address] [place] [id number] Feb, [facility] [address] [id number] [address] [place] [address], [place] [id number] Feb, [facility] [address] [id number] [address] [place] [address], [place] [id number] Jan, [facility] [address] [id number] [address] [place] [address], [place] [id number] Jan, [facility] [address] [id number] [address] [place] [address], [place] [id number] Jan, [facility] [address] [id number] [address] [place] [address], [place] [id number] Jan, [facility] [address] [id number] [address] [place] [address], [place] [id number] Dec, [facility] [address] [id number] [address] [place] [address], [place] [id number] Dec, [facility] [address] [id number] [address] [place] [address], [place] [id number] Nov, [facility] [address] [id number] [address] [place] [address], [place] [id number] Nov, [facility] [address] [id number] [address] [place] [address], [place] [id number] Oct, [facility] [address] [id number] [address] [place] [address], [place] [id number] Oct, [facility] [address] [id number] [address] [place] [address], [place] [id number] Oct, [facility] [address] [id number] [address] [place] [address], [place] [id number] Oct, [facility] [address] [id number] [address] [place] [address], [place] [id number] Oct, [facility] [address] [id number] [address] [place] [address], [place] [id number] Oct, [facility] [address] [id number] [address] [place] [address], [place] [id number] Oct, [facility] [address] [id number] [address] [place] [address], [place] [id number] Oct, [facility] [address] [id number] [address] [place] [address], [place] [id number] Sep, [facility] [address] [id number] [address] [place] [address], [place] [address] Sep, [facility] [address] [id number] [address] [place] [address], [place] [address] Sep, [facility] [address] [id number] [address] [place] [address], [place] [address] Sep, [facility] [address] [id number] [address] [place] [address], [place] [id number] Aug, [facility] [address] [id number] [address] [place] [address], [place] [address] Aug, [facility] [address] [id number] [address] [place] [address], [place] [address] Aug, [facility] [address] [id number] [address] [place] [address], [place] [address] Aug, [facility] [address] [id number] [address] [place] [address], [place] [address] July, [facility] [address] [id number] [address] [place] [address], [place] [address] July, [facility] [address] [id number] [address] [place] [address], [place] [address] July, [facility] [address] [id number] [address] [place] [address], [place] [address] July, [facility] [address] [id number] [address] [place] [address], [place] [address] July, [facility] [address] [id number] [address] [place] [address], [place] [address] July, [facility] [address] [id number] [address] [place] [address], [place] [address] Jun, [facility] [address] [id number] [address] [place] [address], [place] [address] Jun, [facility] [address] [id number] [address] [place] [address], [place] [address] Jun, [facility] [address] [id number] [address] [place] [address], [place] [address] 15 Jun, 2013 [facility] [address] [id number] [address] [place] [address], [place] [address] 14 Jun, 2013 [facility] [address] [id number] [address] [place] [address], [place] [address] 14 Jun, 2013 [facility] [address] [id number] [address] [place] [address], [place] [address] 14 Jun, 2013 [facility] [address] [id number] [address] [place] [address], [place] [address] 14 Jun, 2013 [facility] [address] [id number] [address] [place] [address], [place] [address] 19 May, 2013 [facility] [address] [id number] [address] [place] [address], [place] [address] 19 May, 2013 [facility] [address] [id number] [address] [place] [address], [place] [address] 18 May, 2013 [facility] [address] [id number] [address] [place] [address], [place] [address] Apr, [facility] [address] [id number] [address] [place] [address], [place] [address] Apr, [facility] [address] [id number] [address] [place] [address], [place] [address] Apr, [facility] [address] [id number] [address] [place] [address], [place] [address] Apr, [facility] [address] [id number] [address] [place] [address], [place] [address] Mar, [facility] [address] [id number] [address] [place] [address], [place] [address] Mar, [facility] [address] [id number] [address] [place] [address], [place] [address] Mar, [facility] [address] [id number] [address] [place] [address], [place] [address] Mar, [facility] [address] [id number] [address] [place] [address], [place] [address] Mar, [facility] [address] [id number] [address] [place] [address], [place] [address] Mar, [facility] [address] [id number] [address] [place] [address], [place] [address] Feb, [facility] [address] [id number] [address] [place] [address], [place] [address] Feb, [facility] [address] [id number] [address] [place] [address], [place] [address] Jan, [facility] [address] [id number] [address] [place] [address], [place] [address] Jan, [facility] [address] [id number] [address] [place] [address], [place] [address] Jan, [facility] [address] [id number] [address] [place] [address], [place] [address] Jan, [facility] [address] [id number] [address] [place] [address], [place] [address] Jan, [facility] [address] [id number] [address] [place] [address], [place] [address] Jan, [facility] [address] [id number] [address] [place] [address], [place] [address] Jan, [facility] [address] [id number] [address] [place] [address], [place] [address] Dec, [facility] [address] [id number] [address] [place] [address], [place] [address] Dec, [facility] [address] [id number] [address] [place] [address], [place] [address] Nov, [facility] [address] [id number] [address] [place] [address], [place] [address] Nov, [facility] [address] [id number] [address] [place] [address], [place] [address] Nov, [facility] [address] [id number] [address] [place] [address], [place] [address] Oct, [facility] [address] [id number] [address] [place] [address], [place] [address] Oct, [facility] [address] [id number] [address] [place] [address], [place] [address] Oct, [facility] [address] [id number] [address] [place] [address], [place] [address] Oct, [facility] [address] [id number] [address] [place] [address], [place] [address] Sep, [facility] [address] [id number] [address] [place] [address], [place] [address] Sep, [facility] [address] [id number] [address] [place] [address], [place] [address] Aug, [facility] [address] [id number] [address] [place] [address], [place] [address] Aug, [facility] [address] [id number] [address] [place] [address], [place] [address] Aug, [facility] [address] [id number] [address] [place] [address], [place] [address] Aug, [facility] [address] [id number] [address] [place] [address], [place] [address] July, [facility] [address] [id number] [address] [place] [address], [place] [address] July, [facility] [address] [id number] [address] [place] [address], [place] [address] July, [facility] [address] [id number] [address] [place] [address], [place] [address] July, [facility] [address] [id number] [address] [place] [address], [place] [id number] Jun, [facility] [address] [id number] [address] [place] [id number] 15 Jun, 2012 [facility] [address] [facility] [id number] [address] [place] [id number] Feb, [facility] [address] [facility] [id number] [address] [place] [id number] 17 Feb, 2010 [facility] [address] [facility] [id number] [address] [place] [id number] Mar, IMMUNIZATIONS No Known Immunizations SOCIAL HISTORY Never Assessed REASON FOR VISIT EMR-[facility] [place] PLAN OF CARE VITAL SIGNS MEDICATIONS Unknown [...]
--- OUTSIDE RECORDS SUMMARY | 2019-08-16 14:16 | XMS REPORT ---
Author Author Joseph Ibrahim Doctor Organization [facility] Address Unknown Phone Unavailable Care Team Providers Care Physician Allergist Immunologist Name Role Phone Migration, Doctor Unavailable Unavailable PROBLEMS Type Condition ICD9-CM Code NHJ07-JT Code Onset Dates Condition S tatus SNOMED Code Problem Shoulder pain, right M25.511 Active 79304746 Problem Hypertension, benign I10 Active 53552204 Problem Diabetes type 2, uncontrolled E11.65 Active 783617493 Problem Mood disorder F39 Active 961018 05 Problem Type 2 diabetes mellitus without complications E11 .9 Active 009237682 Problem Low back pain M54.5 Active 426471 005 Problem roasterman current use of insulin Z79.4 Active 414241435 Problem Acquired hypothyroidism E03.9 Active 543443763 Problem Diabetes type 2, controlled E11.9 Ac tive 74317747 Problem Controlled type 2 diabetes m ellitus without complication, without long- term current use of insulin E11.9 Active 528084776 Problem History of urethral stricture Z87.448 Active 891694322 Problem Cervical radiculopathy M54.12 Active 41466345 ALLERGIES No Information ENCOUNTERS Encounter Location Date Diagnosis [place] [address] [address] [facility] [id number] [address] [place] [phone] Jun, Controlled type 2 diabetes m ellitus without complication, without long-term current use of insulin E11.9 [place] [address] [place] [id number] [address] [place] [phone] May, Controlled type 2 diabetes m ellitus without complication, without long-term current use of insulin E11.9 [place] [address] [address] [facility]MERLY NAMED [facility] [id number] [address] [place] [phone] Apr, [place] [address] [place] [id number] [address] [place] [address] Mar, Controlled type 2 diabetes m ellitus without complication, without long-term current use of insulin E11.9 [place] [address] [id number] [address] [place] [address] Jan, [facility] [place] [address] [id number] [address] [place] [address] Dec, Diabetes type 2, uncontrolle d E11.65 [facility] [place] [address] [id number] [address] [place] [address] Dec, Type 2 diabetes mellitus wit hout complications E11.9 ; halfway current use of insulin Z79.4 and Cervicalgia M54.2 [facility] [place] [address] [id number] [address] [place] [phone] Dec, Type 2 diabetes mellitus wit hout complications E11.9 ; roasterman current use of insulin Z79.4 and Cervicalgia M54.2 [place] [address] [id number] [address] [place] [address] Dec, Controlled type 2 diabetes m ellitus without complication, without long-term current use of insulin E11.9 [facility] [place] [address] [id number] [address] [place] [address] Nov, [place] [address] [id number] [address] [place] [address] Oct, Diabetes type 2, uncontrolle d E11.65 [place] [address] [id number] [address] [place] [address] Sep, Diabetes type 2, uncontrolle d E11.65 [facility] [place] [address] [id number] [address] [place] [phone] Jun, Controlled type 2 diabetes m ellitus without complication, without long-term current use of insulin E11.9 [facility] [place] [address] [id number] [address] [place] [address] May, [facility] [place] [address] [id number] [address] [place] [address] May, Radiculopathy of cervical re gion M54.12 [facility] [place] [address] [id number] [address] [place] [phone] May, Controlled type 2 diabetes m ellitus without complication, without long-term current use of insulin E11.9 [facility] [place] [address] [id number] [address] [place] [phone] May, [facility] [place] [address] FORMERLY NAMED [facility] [id number] [address] [place] [address] May, Controlled type 2 diabetes m ellitus without complication, without long-term current use of insulin E11.9 [facility] [place] [address] [id number] [address] [place] [phone] May, Controlled type 2 diabetes m ellitus without complication, without long-term current use of insulin E11.9 [facility] [place] [address] FORMERLY NAMED [facility] [id number] [address] [place] [address] May, Controlled type 2 diabetes m ellitus without complication, without long-term current use of insulin E11.9 [facility] [place] [address] FORMERLY NAMED [facility] [id number] [address] [place] [id number] Apr, [facility] [place] [address] [id number] [address] [place] [address] Apr, Controlled type 2 diabetes m ellitus without complication, without long-term current use of insulin E11.9 [facility] [place] [address] FORMERLY NAMED [facility] [id number] [address] [place] [phone] Apr, [facility] [place] [address] [id number] [address] [place] [address] Apr, Controlled type 2 diabetes m ellitus without complication, without long-term current use of insulin E11.9 [facility] [place] [address] FORMERLY NAMED [facility] [id number] [address] [place] [address] Mar, [facility] [place] [address] FORMERLY NAMED [facility] [id number] [address] [place] [address] Mar, Radiculopathy of cervical re gion M54.12 [facility] [place] [address] [id number] [address] [place] [id number] 05 Mar, 2017 Controlled type 2 diabetes m ellitus without complication, without long-term current use of insulin E11.9 [facility] [place] [address] [facility] NAMED [facility] [id number] [address] [place] [address] Feb, Cervical radiculopathy M54.1 2 ; Acute cystitis without hematuria N30.00 and History of urethral stricture Z87.448 [place] [address] [address] FOR[facility] NAMED [facility] [id number] [address] [place] [address] Feb, Controlled type 2 diabetes m ellitus without complication, without long-term current use of insulin E11.9 [place] [address] [address] [facility] NAMED [facility] [id number] [address] [place] [phone] Feb, [place] [address] [address] FOR[facility] NAMED [facility] [id number] [address] [place] [id number] 15 Jan, 2017 Diabetes type 2, uncontrolle d E11.65 [place] [address] [place] [id number] [address] [place] [address] Jan, [facility] [place] [address] FORMERLY NAMED [facility] [id number] [address] [place] [address] Jan, Controlled type 2 diabetes m ellitus without complication, without long-term current use of insulin E11.9 ; Chest wall pain R07.89 and Thoracic spine pain M54.6 [place] [address] [address] FOR[facility] NAMED [facility] [id number] [address] [place] [address] Dec, [facility] [place] [address] [place] [id number] [address] [place] [id number] Dec, [facility] [place] [address] FORMERLY NAMED [facility] [id number] [address] [place] [address] Nov, [place] [address] [place] [id number] [address] [place] [phone] Nov, [facility] [address] [facility] [address] [facility] [id number] [address] [place] [id number] 13 Nov, 2016 Trichomonas exposure Z20.2 [facility] [address] [id number] [address] [place] [address], [place] [address] Oct, [facility] [address] [id number] [address] [place] [address], [place] [address] Oct, [facility] [address] [id number] [address] [place] [address], [place] [address] Oct, [facility] [address] [id number] [address] [place] [address], [place] [address] Oct, [facility] [address] [id number] [address] [place] [address], [place] [address] Sep, [facility] [address] [id number] [address] [place] [address], [place] [address] Sep, [facility] [address] [id number] [address] [place] [address], [place] [address] Aug, [facility] [address] [id number] [address] [place] [address], [place] [address] Aug, [facility] [address] [id number] [address] [place] [address], [place] [address] Aug, [facility] [address] [id number] [address] [place] [address], [place] [address] Aug, [facility] [address] [id number] [address] [place] [address], [place] [address] July, Diabetes type 2, controlled E11.9 [facility] [address] [id number] [address] [place] [address], [place] [address] July, [facility] [address] [id number] [address] [place] [address], [place] [address] July, [facility] [address] [id number] [address] [place] [address], [place] [address] July, [facility] [address] [id number] [address] [place] [address], [place] [address] July, [facility] [address] [id number] [address] [place] [id number] 13 Jun, 2016 [facility] [place] [address] [id number] [address] [place] [phone] Jun, [facility] [place] [address] [id number] [address] [place] [address] May, [facility] [place] [address] [id number] [address] [place] [address] May, [facility] [place] [address] [id number] [address] [place] [address] May, [facility] [place] [address] [id number] [address] [place] [address] May, Controlled type 2 diabetes m ellitus without complication, without long-term current use of insulin E11.9 [facility] [place] [address] [id number] [address] [place] [address] Apr, [facility] [place] [address] [id number] [address] [place] [id number] Apr, [facility] [place] [address] [id number] [address] [place] [address] Mar, [facility] [place] [address] [id number] [address] [place] [address] Mar, [facility] [place] [address] [id number] [address] [place] [address] Feb, [facility] [place] [address] [id number] [address] [place] [address] Feb, [facility] [place] [address] [id number] [address] [place] [phone] Jan, [facility] [place] [address] [id number] [address] [place] [address] Jan, [facility] [place] [address] [id number] [address] [place] [address] Jan, [facility] [place] [address] [id number] [address] [place] [address] Dec, [facility] [place] [address] [id number] [address] [place] [address] Dec, [facility] [place] [address] [id number] [address] [place] [address] Dec, [facility] [place] [address] [id number] [address] [place] [id number] 29 Nov, 2015 Diabetes type 2, uncontrolle d E11.65 [facility] [place] [address] [id number] [address] [place] [id number] 14 Nov, 2015 [facility] [place] [address] [id number] [address] [place] [address] Nov, [facility] [place] [address] [id number] [address] [place] [address] Oct, [facility] [place] [address] [id number] [address] [place] [address] Oct, [facility] [place] [address] [id number] [address] [place] [address] Sep, Controlled type 2 diabetes m ellitus without complication, without long-term current use of insulin E11.9 [facility] [place] [address] [id number] [address] [place] [address] Sep, [facility] [place] [address] [id number] [address] [place] [address] Sep, [facility] [place] [address] [id number] [address] [place] [address] Sep, [facility] [place] [address] [id number] [address] [place] [address] Sep, [facility] [place] [address] [id number] [address] [place] [address] Aug, Diabetes type 2, controlled E11.9 ; Anxiety F41.9 ; Carpal tunnel syndrome, left upper limb G56.02 and Carpal tunnel syndrome, right upper limb G56.01 [facility] [place] [address] [id number] [address] [place] [address] Aug, Urethritis N34.2 [facility] [place] [address] [id number] [address] [place] [address] Aug, [facility] [place] [address] [id number] [address] [place] [address] July, Genital warts A63.0 [facility] [place] [address] [id number] [address] [place] [address] July, [facility] [place] [address] [id number] [address] [place] [address] July, Genital warts A63.0 [facility] [place] [address] [id number] [address] [place] [id number] July, Anxiety F41.9 [facility] [place] [address] [id number] [address] [place] [address] Jun, Genital warts A63.0 [facility] [place] [address] [id number] [address] [place] [address] Jun, Anxiety F41.9 [facility] [place] [address] [id number] [address] [place] [address] May, Genital warts A63.0 and Diab etes type 2, uncontrolled E11.65 [facility] [place] [address] [id number] [address] [place] [address] May, [facility] [place] [address] [id number] [address] [place] [id number] May, [facility] [place] [address] [id number] [address] [place] [address] Apr, [facility] [place] [address] [id number] [address] [place] [address] Apr, [facility] [place] [address] [id number] [address] [place] [address] Apr, Diabetes type 2, controlled E11.9 [facility] [place] [address] [facility]ED [facility] [id number] [address] [place] [address] Apr, Genital warts A63.0 [facility] [place] [address] FORMERLY NAMED [facility] [id number] [address] [place] [address] Apr, [facility] [place] [address] [place] [id number] [place] [address] Apr, Diabetes type 2, uncontrolle d E11.65 and Genital warts A63.0 [facility] [place] [address] FORMERLY NAMED [facility] [id number] [address] [place] [address] Apr, [facility] [place] [address] FORMERLY NAMED [facility] [id number] [address] [place] [address] Mar, [place] [address] [address] Mar, [facility] [place] [address] FORMERLY NAMED [facility] [id number] [address] [place] [address] Mar, Family history of diabetes m ellitus V18.0 and Weight loss R63.4 [place] [address] [address] [place] [id number] [address] [place] [id number] Mar, Genital warts A63.0 and Fami ly history of diabetes mellitus V18.0 [place] [address] [id number] [place] [id number] Feb, [facility] [place] [address] FORMERLY NAMED [facility] [id number] [address] [place] [address] Jan, [facility] [place] [address] [id number] Jan, Perianal venereal warts A63. 0 [facility] [place] [address] FORMERLY NAMED [facility] [id number] [address] [place] [address] Jan, Urethritis N34.2 and Anxiety F41.9 [facility] [place] [address] [place] [id number] [address] [place] [address] Jan, [place] [address] [address] Jan, Urinary tract infection, sit e unspecified N39.0 [place] [address] [address] [place] [id number] [address] [place] [address] Jan, [place] [address] [address] Dec, [place] [address] [address] [place] [id number] [address] [place] [address] Dec, HPV (human papilloma virus) anogenital infection A63.0 ; Anxiety F41.9 and Gastroesophageal reflux disease without esophagitis K21.9 [place] [address] [address] [place] [id number] [address] [place] [address] Sep, Blood in stool 578.1 [place] [address] [address] Aug, Blood in stool 578.1 [place] [address] [address] Aug, Anxiety 300.00 and Blood in stool 578.1 [place] [address] [address] [place] [id number] [address] [place] [address] July, [place] [address] [address] [place] [id number] [address] [place] [id number] July, Family history of diabetes m ellitus V18.0 [place] [address] [id number] July, Family history of diabetes m ellitus V18.0 ; Family history of thyroid disease V18.19 ; Polyuria 788.42 ; Polydipsia 783.5 ; Alopecia 704.00 and Fatigue 780.79 [place] [address] [address] [place] [id number] [address] [place] [id number] Jun, [facility] [address] [id number] [address] [place] [address], [place] [address] Jun, [facility] [address] [id number] [address] [place] [address], [place] [address] Mar, [facility] [address] [id number] [address] [place] [address], [place] [address] Mar, [facility] [address] [id number] [address] [place] [address], [place] [address] Mar, [facility] [address] [id number] [address] [place] [address], [place] [address] Mar, [facility] [address] [id number] [address] [place] [address], [place] [address] Mar, [facility] [address] [id number] [address] [place] [address], [place] [address] Mar, [facility] [address] [id number] [address] [place] [address], [place] [address] Mar, [facility] [address] [id number] [address] [place] [address], [place] [address] Mar, [facility] [address] [id number] [address] [place] [address], [place] [address] Mar, [facility] [address] [id number] [address] [place] [address], [place] [address] Mar, [facility] [address] [id number] [address] [place] [id number] Feb, [facility] [address] [id number] [address] [place] [address], [place] [address] Feb, [facility] [address] [id number] [address] [place] [address], [place] [address] Jan, [facility] [address] [id number] [address] [place] [address], [place] [address] Jan, [facility] [address] [id number] [address] [place] [address], [place] [address] Jan, [facility] [address] [id number] [address] [place] [address], [place] [address] Jan, [facility] [address] [id number] [address] [place] [address], [place] [address] Dec, [facility] [address] [id number] [address] [place] [address], [place] [address] Dec, [facility] [address] [id number] [address] [place] [address], [place] [address] Nov, [facility] [address] [id number] [address] [place] [address], [place] [address] Nov, [facility] [address] [id number] [address] [place] [address], [place] [address] Oct, [facility] [address] [id number] [address] [place] [address], [place] [address] Oct, [facility] [address] [id number] [address] [place] [address], [place] [address] Oct, [facility] [address] [id number] [address] [place] [address], [place] [address] Oct, [facility] [address] [id number] [address] [place] [address], [place] [address] Oct, [facility] [address] [id number] [address] [place] [address], [place] [address] Oct, [facility] [address] [id number] [address] [place] [address], [place] [address] Oct, [facility] [address] [id number] [address] [place] [address], [place] [address] Oct, [facility] [address] [id number] [address] [place] [address], [place] [address] Sep, [facility] [address] [id number] [address] [place] [address], [place] [address] Sep, [facility] [address] [id number] [address] [place] [address], [place] [address] Sep, [facility] [address] [id number] [address] [place] [address], [place] [address] Sep, [facility] [address] [id number] [address] [place] [address], [place] [address] Aug, [facility] [address] [id number] [address] [place] [address], [place] [address] Aug, [facility] [address] [id number] [address] [place] [address], [place] [address] Aug, [facility] [address] [id number] [address] [place] [address], [place] [address] Aug, [facility] [address] [id number] [address] [place] [address], [place] [address] July, [facility] [address] [id number] [address] [place] [address], [place] [address] July, [facility] [address] [id number] [address] [place] [address], [place] [address] July, [facility] [address] [id number] [address] [place] [address], [place] [address] July, [facility] [address] [id number] [address] [place] [address], [place] [address] July, [facility] [address] [id number] [address] [place] [address], [place] [address] July, [facility] [address] [id number] [address] [place] [address], [place] [address] Jun, [facility] [address] [id number] [address] [place] [address], [place] [address] Jun, [facility] [address] [id number] [address] [place] [address], [place] [address] Jun, [facility] [address] [id number] [address] [place] [address], [place] [address] 15 Jun, 2013 [facility] [address] [id number] [address] [place] [address], [place] [address] 14 Jun, 2013 [facility] [address] [id number] [address] [place] [address], [place] [address] 14 Jun, 2013 [facility] [address] [id number] [address] [place] [address], [place] [address] 14 Jun, 2013 [facility] [address] [id number] [address] [place] [address], [place] [address] 14 Jun, 2013 [facility] [address] [id number] [address] [place] [address], [place] [address] 19 May, 2013 [facility] [address] [id number] [address] [place] [address], [place] [address] 19 May, 2013 [facility] [address] [id number] [address] [place] [address], [place] [address] 18 May, 2013 [facility] [address] [id number] [address] [place] [address], [place] [address] Apr, [facility] [address] [id number] [address] [place] [address], [place] [address] Apr, [facility] [address] [id number] [address] [place] [address], [place] [address] Apr, [facility] [address] [id number] [address] [place] [address], [place] [address] Apr, [facility] [address] [id number] [address] [place] [address], [place] [address] Mar, [facility] [address] [id number] [address] [place] [address], [place] [address] Mar, [facility] [address] [id number] [address] [place] [address], [place] [address] Mar, [facility] [address] [id number] [address] [place] [address], [place] [address] Mar, [facility] [address] [id number] [address] [place] [address], [place] [address] Mar, [facility] [address] [id number] [address] [place] [address], [place] [address] Mar, [facility] [address] [id number] [address] [place] [address], [place] [address] Feb, [facility] [address] [id number] [address] [place] [address], [place] [address] Feb, [facility] [address] [id number] [address] [place] [address], [place] [address] Jan, [facility] [address] [id number] [address] [place] [address], [place] [address] Jan, [facility] [address] [id number] [address] [place] [address], [place] [address] Jan, [facility] [address] [id number] [address] [place] [address], [place] [address] Jan, [facility] [address] [id number] [address] [place] [address], [place] [address] Jan, [facility] [address] [id number] [address] [place] [address], [place] [address] Jan, [facility] [address] [id number] [address] [place] [address], [place] [address] Jan, [facility] [address] [id number] [address] [place] [address], [place] [address] Dec, [facility] [address] [id number] [address] [place] [address], [place] [address] Dec, [facility] [address] [id number] [address] [place] [address], [place] [address] Nov, [facility] [address] [id number] [address] [place] [address], [place] [address] Nov, [facility] [address] [id number] [address] [place] [address], [place] [address] Nov, [facility] [address] [id number] [address] [place] [address], [place] [address] Oct, [facility] [address] [id number] [address] [place] [address], [place] [address] Oct, [facility] [address] [id number] [address] [place] [address], [place] [address] Oct, [facility] [address] [id number] [address] [place] [address], [place] [address] Oct, [facility] [address] [id number] [address] [place] [address], [place] [address] Sep, [facility] [address] [id number] [address] [place] [address], [place] [address] Sep, [facility] [address] [id number] [address] [place] [address], [place] [address] Aug, [facility] [address] [id number] [address] [place] [address], [place] [address] Aug, [facility] [address] [id number] [address] [place] [address], [place] [address] Aug, [facility] [address] [id number] [address] [place] [address], [place] [address] Aug, [facility] [address] [id number] [address] [place] [address], [place] [address] July, [facility] [address] [id number] [address] [place] [address], [place] [address] July, [facility] [address] [id number] [address] [place] [address], [place] [address] July, [facility] [address] [id number] [address] [place] [address], [place] [address] July, [facility] [address] [id number] [address] [place] [address], [place] [address] Jun, [facility] [address] [id number] [address] [place] [address] 15 Jun, 2012 [facility] [place] [address] [facility] [address] [facility] [id number] [address] [place] [address] Feb, [facility] [place] [address] [facility] [id number] [address] [place] [address] 17 Feb, 2010 [facility] [place] [address] [facility] [id number] [address] [place] [address] Mar, IMMUNIZATIONS No Known Immunizations SOCIAL HISTORY Never Assessed REASON FOR VISIT EMR-[facility] [place] PLAN OF CARE VITAL [...]
--- OUTSIDE RECORDS SUMMARY | 2019-08-16 14:16 | XMS REPORT ---
Author Author Joseph Ibrahim Doctor Organization [facility] Address Unknown Phone Unavailable Care Team Providers Care Top Loader Name Role Phone Migration, Doctor Unavailable Unavailable PROBLEMS Type Condition ICD9-CM Code XGB62-UI Code Onset Dates Condition S tatus SNOMED Code Problem Shoulder pain, right M25.511 Active 33836414 Problem Hypertension, benign I10 Active 02853352 Problem Diabetes type 2, uncontrolled E11.65 Active 446093991 Problem Mood disorder F39 Active 379002 05 Problem Type 2 diabetes mellitus without complications E11 .9 Active 430194733 Problem Low back pain M54.5 Active 421011 005 Problem 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 [id number] [address] [place] [phone] May, Controlled type 2 diabetes m ellitus without complication, without long-term current use of insulin E11.9 [facility] [address] [facility] [id number] [address] [place] [phone] Apr, [facility] [address] [facility] [id number] [address] [place] [id number] Mar, Controlled type 2 diabetes m ellitus without complication, without long-term current use of insulin E11.9 [facility] [address] [facility] [id number] [address] [place] [phone] Jan, [facility] [address] 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 and Cervicalgia M54.2 [facility] [address] [id number] [address] [place] [phone] Dec, Controlled type 2 diabetes m ellitus without complication, without long-term current use of insulin E11.9 [facility] [address] [id number] [address] [place] [phone] Nov, [place] [address] [id number] [address] [place] [id number] Oct, Diabetes type 2, uncontrolle d E11.65 [facility] [address] [id number] [address] [place] [id number] Sep, Diabetes type 2, uncontrolle d E11.65 [facility] [address] [id number] [address] [place] [phone] Jun, Controlled type 2 diabetes m ellitus without complication, without long-term current use of insulin E11.9 [facility] [address] [id number] [address] [place] [id number] May, [facility] [address] [id number] [address] [place] [id number] 16 May, 2017 Radiculopathy of cervical re gion M54.12 [facility] [address] [id number] [address] [place] [phone] 14 May, 2017 Controlled type 2 diabetes m ellitus without complication, without long-term current use of insulin E11.9 [facility] [address] [id number] [address] [place] [phone] May, [facility] [address] [id number] [address] [place] [phone] May, Controlled type 2 diabetes m ellitus without complication, without long-term current use of insulin E11.9 [facility] [address] [id number] [address] [place] [id number] May, Controlled type 2 diabetes m ellitus without complication, without long-term current use of insulin E11.9 [facility] [address] [id number] [address] [place] [id number] May, Controlled type 2 diabetes m ellitus without complication, without long-term current use of insulin E11.9 [place] [address] [id number] [address] [place] [id number] Apr, [place] [address] [id number] [address] [place] [phone] Apr, Controlled type 2 diabetes m ellitus without complication, without long-term current use of insulin E11.9 [place] [address] [id number] [address] [place] [id number] Apr, [facility] [address] [id number] [address] [place] [id number] Apr, Controlled type 2 diabetes m ellitus without complication, without long-term current use of insulin E11.9 [place] [address] [id number] [address] [place] [id number] Mar, [facility] [address] [id number] [address] [place] [id number] Mar, Radiculopathy of cervical re gion M54.12 [facility] [address] [id number] [address] [place] [id number] Mar, Controlled type 2 diabetes m ellitus without complication, without long-term current use of insulin E11.9 [place] [address] [place] [id number] [address] [place] [id number] Feb, Cervical radiculopathy M54.1 2 ; Acute cystitis without hematuria N30.00 and History of urethral stricture Z87.448 [facility] [address] [facility] [id number] [address] [place] [id number] Feb, Controlled type 2 diabetes m yaraitus without complication, without long-term current use of insulin E11.9 [facility] [address] [place] [id number] [address] [place] [phone] Feb, [facility] [address] [place] [id number] [place] [address] Jan, Diabetes type 2, uncontrolle d E11.65 [place] [address] [place] [id number] [place] [phone] Jan, [place] [address] [place] [id number] [place] [address] Jan, Controlled type 2 diabetes m yaraitus without complication, without long-term current use of insulin E11.9 ; Chest wall pain R07.89 and Thoracic spine pain M54.6 [place] [address] [address] Dec, [facility] [address] [place] [id number] [place] [phone] Dec, [place] [address] [place] [id number] [address] [place] [phone] Nov, [facility] [address] [place] [id number] [place] [phone] Nov, [facility] [address] [place] [id number] [place] [address] 13 Nov, 2016 Trichomonas exposure Z20.2 [facility] [address] [place] [id number] [address] [place] [phone] Oct, [facility] [address] [address] Oct, [facility] [address] [id number] [address] [place] [address], [place] [address] Oct, [facility] [address] [id number] [address] [place] [address], [place] [address] Oct, [facility] [address] [id number] [address] [place] [address], [place] [address] Sep, [facility] [address] [id number] [address] [place] [address], [place] [address] Sep, [facility] [address] [id number] [address] [place] [address], [place] [address] Aug, [facility] [address] [id number] [address] [place] [address], [place] [address] Aug, [facility] [address] [id number] [address] [place] [address], [place] [address] Aug, [facility] [address] [id number] [address] [place] [address], [place] [address] Aug, [facility] [address] [id number] [address] [place] [address], [place] [address] July, Diabetes type 2, controlled E11.9 [facility] [address] [id number] [address] [place] [address], [place] [address] July, [facility] [address] [id number] [address] [place] [address], [place] [address] July, [facility] [address] [id number] [address] [place] [address], [place] [address] July, [facility] [address] [id number] [address] [place] [address], [place] [address] July, [facility] [address] [id number] [address] [place] [address], [place] [address] Jun, [facility] [address] [id number] [address] [place] [address], [place] [address] Jun, [facility] [address] [id number] [address] [place] [phone] 16 May, 2016 [facility] [address] [id number] [address] [place] [phone] May, [facility] [address] [id number] [address] [place] [phone] May, [facility] [address] [id number] [address] [place] [phone] May, Controlled type 2 diabetes m erika without complication, without long-term current use of insulin E11.9 [facility] [address] [id number] [address] [place] [phone] Apr, [facility] [address] [id number] [address] [place] [phone] Apr, [facility] [address] [id number] [address] [place] [phone] Mar, [facility] [address] [id number] [address] [place] [id number] Mar, [facility] [address] [id number] [address] [place] [phone] Feb, [facility] [address] [id number] [address] [place] [phone] Feb, [facility] [address] [id number] [address] [place] [phone] Jan, [facility] [address] [id number] [address] [place] [phone] Jan, [facility] [address] [id number] [address] [place] [phone] Jan, [facility] [address] [id number] [address] [place] [phone] Dec, [facility] [address] [id number] [address] [place] [id number] Dec, [facility] [address] [id number] [address] [place] [id number] Dec, [facility] [address] [id number] [address] [place] [id number] 29 Nov, 2015 Diabetes type 2, uncontrolle d E11.65 [facility] [address] [id number] [address] [place] [id number] 14 Nov, 2015 [facility] [address] [id number] [address] [place] [phone] 09 Nov, 2015 [facility] [address] [id number] [address] [place] [phone] Oct, [facility] [address] [id number] [address] [place] [phone] Oct, [facility] [address] [id number] [address] [place] [phone] Sep, Controlled type 2 diabetes m ellitus without complication, without long-term current use of insulin E11.9 [facility] [address] [id number] [address] [place] [phone] Sep, [facility] [address] [id number] [address] [place] [phone] Sep, [facility] [address] [id number] [address] [place] [phone] Sep, [facility] [address] [id number] [address] [place] [id number] Sep, [facility] [address] [id number] [address] [place] [id number] Aug, Diabetes type 2, controlled E11.9 ; Anxiety F41.9 ; Carpal tunnel syndrome, left upper limb G56.02 and Carpal tunnel syndrome, right upper limb G56.01 [facility] [address] [id number] [address] [place] [id number] 13 Aug, 2015 Urethritis N34.2 [facility] [address] [id number] [address] [place] [phone] Aug, [facility] [address] [id number] [address] [place] [id number] July, Genital warts A63.0 [facility] [address] [id number] [address] [place] [id number] July, [facility] [address] [id number] [address] [place] [phone] July, Genital warts A63.0 [facility] [address] [id number] [address] [place] [id number] July, Anxiety F41.9 [facility] [address] [id number] [address] [place] [phone] Jun, Genital warts A63.0 [facility] [address] [id number] [address] [place] [id number] Jun, Anxiety F41.9 [facility] [address] [id number] [address] [place] [phone] May, Genital warts A63.0 and Diab etes type 2, uncontrolled E11.65 [facility] [address] [id number] [address] [place] [id number] May, [facility] [address] [id number] [address] [place] [phone] May, [facility] [address] [id number] [address] [place] [id number] Apr, [facility] [address] [id number] [address] [place] [id number] Apr, [facility] [address] [facility] [id number] [address] [place] [phone] Apr, Diabetes type 2, controlled E11.9 [facility] [address] [id number] [address] [place] [id number] Apr, Genital warts A63.0 [facility] [address] [facility] [id number] [address] [place] [phone] Apr, [facility] [address] [facility] [id number] [address] [place] [id number] Apr, Diabetes type 2, uncontrolle d E11.65 and Genital warts A63.0 [facility] [address] [facility] [id number] [address] [place] [phone] Apr, [facility] [address] [facility] [id number] [address] [place] [id number] Mar, [facility] [address] [facility] [id number] [place] [phone] Mar, [facility] [address] [address] Mar, Family history of diabetes m ellitus V18.0 and Weight loss R63.4 [facility] [address] [address] Mar, Genital warts A63.0 and Fami ly history of diabetes mellitus V18.0 [facility] [address] [facility] [id number] [address] [place] [phone] Feb, [facility] [address] [place] [id number] [address] [place] [phone] Jan, [facility] [address] [address] Jan, Perianal venereal warts A63. 0 [facility] [address] [facility] [id number] [address] [place] [id number] Jan, Urethritis N34.2 and Anxiety F41.9 [facility] [address] [place] [id number] [address] [place] [phone] Jan, [facility] [address] [place] [id number] [address] [place] [phone] Jan, Urinary tract infection, sit e unspecified N39.0 [place] [address] [place] [id number] [address] [place] [phone] Jan, [place] [address] [place] [id number] [address] [place] [phone] Dec, [place] [address] [id number] Dec, HPV (human papilloma virus) anogenital infection A63.0 ; Anxiety F41.9 and Gastroesophageal reflux disease without esophagitis K21.9 [place] [address] [place] [id number] [address] [place] [id number] Sep, Blood in stool 578.1 [place] [address] [address] Aug, Blood in stool 578.[address] [address] Aug, Anxiety 300.00 and Blood in stool 578.1 [place] [address] [address] July, [place] [address] [address] July, Family history of diabetes joseph ellitus V18.[address] [address] July, Family history of diabetes m ellitus V18.0 ; Family history of thyroid disease V18.19 ; Polyuria 788.42 ; Polydipsia 783.5 ; Alopecia 704.00 and Fatigue 780.79 [place] [address] [place] [id number] [address] [place] [phone] Jun, [place] [address] [place] [id number] [address] [place] [phone] Jun, [place] [address] [place] [address] Mar, [facility] [address] [id number] [address] [place] [address], [place] [address] Mar, [facility] [address] [id number] [address] [place] [address], [place] [address] Mar, [facility] [address] [id number] [address] [place] [address], [place] [address] Mar, [facility] [address] [id number] [address] [place] [address], [place] [address] Mar, [facility] [address] [id number] [address] [place] [address], [place] [address] Mar, [facility] [address] [id number] [address] [place] [address], [place] [address] Mar, [facility] [address] [id number] [address] [place] [address], [place] [address] Mar, [facility] [address] [id number] [address] [place] [address], [place] [address] Mar, [facility] [address] [id number] [address] [place] [address], [place] [address] Mar, [facility] [address] [id number] [address] [place] [address], [place] [address] Feb, [facility] [address] [id number] [address] [place] [address], [place] [address] Feb, [facility] [address] [id number] [address] [place] [address], [place] [address] Jan, [facility] [address] [id number] [address] [place] [address], [place] [address] Jan, [facility] [address] [id number] [address] [place] [address], [place] [address] Jan, [facility] [address] [id number] [address] [place] [address], [place] [address] Jan, [facility] [address] [id number] [facility] [address] Dec, [facility] [address] [id number] [address] [place] [address], [place] [address] Dec, [facility] [address] [id number] [address] [place] [address], [place] [address] Nov, [facility] [address] [id number] [address] [place] [address], [place] [address] Nov, [facility] [address] [id number] [address] [place] [address], [place] [address] Oct, [facility] [address] [id number] [address] [place] [address], [place] [address] Oct, [facility] [address] [id number] [address] [place] [address], [place] [address] Oct, [facility] [address] [id number] [address] [place] [address], [place] [address] Oct, [facility] [address] [id number] [address] [place] [address], [place] [address] Oct, [facility] [address] [id number] [address] [place] [address], [place] [address] Oct, [facility] [address] [id number] [address] [place] [address], [place] [address] Oct, [facility] [address] [id number] [address] [place] [address], [place] [address] Oct, [facility] [address] [id number] [address] [place] [address], [place] [address] Sep, [facility] [address] [id number] [address] [place] [address], [place] [address] Sep, [facility] [address] [id number] [address] [place] [address], [place] [address] Sep, [facility] [address] [id number] [address] [place] [address], [place] [address] Sep, [facility] [address] [id number] [facility] [address] Aug, [facility] [address] [id number] [address] [place] [address], [place] [address] Aug, [facility] [address] [id number] [address] [place] [address], [place] [address] Aug, [facility] [address] [id number] [address] [place] [address], [place] [address] Aug, [facility] [address] [id number] [address] [place] [address], [place] [address] July, [facility] [address] [id number] [address] [place] [address], [place] [address] July, [facility] [address] [id number] [address] [place] [address], [place] [address] July, [facility] [address] [id number] [address] [place] [address], [place] [address] July, [facility] [address] [id number] [address] [place] [address], [place] [address] July, [facility] [address] [id number] [address] [place] [address], [place] [address] July, [facility] [address] [id number] [address] [place] [address], [place] [address] Jun, [facility] [address] [id number] [address] [place] [address], [place] [address] Jun, [facility] [address] [id number] [address] [place] [address], [place] [address] Jun, [facility] [place] [facility] [address] [id number] [address] [place] [address], [place] [address] Jun, [facility] [place] [address] [id number] [address] [place] [address], [place] [address] Jun, [facility] [address] [id number] [address] [place] [address] 14 Jun, 2013 [facility] [address] [id number] [address] [place] [address], [place] [address] 14 Jun, 2013 [facility] [address] [id number] [address] [place] [address], [place] [address] 14 Jun, 2013 [facility] [address] [id number] [address] [place] [address], [place] [address] 19 May, 2013 [facility] [address] [id number] [address] [place] [address], [place] [address] 19 May, 2013 [facility] [address] [id number] [address] [place] [address], [place] [address] May, [facility] [address] [id number] [address] [place] [address], [place] [address] Apr, [facility] [address] [id number] [address] [place] [address], [place] [address] Apr, [facility] [address] [id number] [address] [place] [address], [place] [address] Apr, [facility] [address] [id number] [address] [place] [address], [place] [address] Apr, [facility] [address] [id number] [address] [place] [address], [place] [address] Mar, [facility] [address] [id number] [address] [place] [address], [place] [address] Mar, [facility] [address] [id number] [address] [place] [address], [place] [address] Mar, [facility] [address] [id number] [address] [place] [address], [place] [address] Mar, [facility] [address] [id number] [address] [place] [address], [place] [address] Mar, [facility] [address] [id number] [address] [place] [address], [place] [address] Mar, [facility] [address] [id number] [address] [place] [address], [place] [address] Feb, [facility] [address] [id number] [address] [place] [address], [place] [address] Feb, [facility] [address] [id number] [address] [place] [address], [place] [address] Jan, [facility] [address] [id number] [address] [place] [address], [place] [address] Jan, [facility] [address] [id number] [address] [place] [address], [place] [address] Jan, [facility] [address] [id number] [address] [place] [address], [place] [address] Jan, [facility] [address] [id number] [address] [place] [address], [place] [address] Jan, [facility] [address] [id number] [address] [place] [address], [place] [address] Jan, [facility] [address] [id number] [address] [place] [address], [place] [address] Jan, [facility] [address] [id number] [address] [place] [address], [place] [address] Dec, [facility] [address] [id number] [address] [place] [address], [place] [address] Dec, [facility] [address] [id number] [address] [place] [address], [place] [address] Nov, [facility] [address] [id number] [address] [place] [address], [place] [address] Nov, [facility] [address] [id number] [address] [place] [address], [place] [address] Nov, [facility] [address] [id number] [address] [place] [address], [place] [address] Oct, [facility] [address] [id number] [address] [place] [address] [place] [address] Oct, [facility] [address] [id number] [address] [place] [address], [place] [address] Oct, [facility] [address] [id number] [address] [place] [address], [place] [address] Oct, [facility] [address] [id number] [address] [place] [address], [place] [address] Sep, [facility] [address] [id number] [address] [place] [address], [place] [address] Sep, [facility] [address] [id number] [address] [place] [address], [place] [address] Aug, [facility] [address] [id number] [address] [place] [address], [place] [address] Aug, [facility] [address] [id number] [address] [place] [address], [place] [address] Aug, [facility] [address] [id number] [address] [place] [address], [place] [address] Aug, [facility] [address] [id number] [address] [place] [address], [place] [address] July, [facility] [address] [id number] [address] [place] [address], [place] [address] July, [facility] [address] [id number] [address] [place] [address], [place] [address] July, [facility] [address] [id number] [address] [place] [address], [place] [address] July, [facility] [address] [id number] [address] [place] [address], [place] [address] Jun, [facility] [address] [id number] [address] [place] [address], [place] [address] Jun, [facility] [place] [address] [id number] [address] [place] [address], [place] [address] Feb, [facility] [address] [facility] [id number] [address] [place] [id number] Feb, [facility] [address] [facility] [id number] [address] [place] [id number] Mar, IMMUNIZATIONS No Known Immunizations SOCIAL HISTORY Never Assessed REASON FOR VISIT EMR-[facility] PLAN OF CARE VITAL SIGNS MEDICATIONS Unknown [...]
--- OUTSIDE RECORDS SUMMARY | 2019-08-16 14:17 | XMS REPORT ---
Author Author Joseph Ibrahim Doctor Organization [facility] Address Unknown Phone Unavailable Care Team Providers Care Manager Reliability Name Role Phone Migration, Doctor Unavailable Unavailable PROBLEMS Type Condition ICD9-CM Code FMG07-XD Code Onset Dates Condition S tatus SNOMED Code Problem Shoulder pain, right M25.511 Active 02336019 Problem Hypertension, benign I10 Active 72692412 Problem Diabetes type 2, uncontrolled E11.65 Active 802463619 Problem Mood disorder F39 Active 499108 05 Problem Type 2 diabetes mellitus without complications E11 .9 Active 006789275 Problem Low back pain M54.5 Active 480398 005 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 237763973 Problem Acquired hypothyroidism E03.9 Active 221668037 Problem Diabetes type 2, controlled E11.9 Ac tive 25031238 Problem Controlled type 2 diabetes m ellitus without complication, without long- term current use of insulin E11.9 Active 113001396 Problem History of urethral stricture Z87.448 Active 229630736 Problem Cervical radiculopathy M54.12 Active 74187367 ALLERGIES No Information ENCOUNTERS Encounter Location Date Diagnosis [id number] [facility] [id number] [address] [place] [phone] Jun, [place] [facility] [id number] [address] [place] [phone] May, Controlled type 2 diabetes m ellitus without complication, without long-term current use of insulin E11.9 [facility] [address] [facility] [id number] [address] [place] [phone] Apr, [facility] [address] [facility] [id number] [address] [place] [address] Mar, Controlled type 2 diabetes m ellitus without complication, without long-term current use of insulin E11.9 [facility] [address] [facility] [id number] [address] [place] [phone] Jan, [facility] [address] [facility] [id number] [address] [place] [phone] Dec, Diabetes type 2, uncontrolle d E11.65 [place] [address] [address] [facility] [id number] [address] [place] [address] Dec, Type 2 diabetes mellitus wit hout complications E11.9 ; 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 and Cervicalgia M54.2 [place] [address] [address] [facility] [id number] [address] [place] [address] Dec, Type 2 diabetes mellitus wit hout complications E11.9 ; long-term current use of insulin Z79.4 and Cervicalgia M54.2 [place] [address] [facility] [id number] [address] [place] [phone] Dec, Controlled type 2 diabetes m yaraitus without complication, without long-term current use of insulin E11.9 [place] [address] [facility] [id number] [address] [place] [address] Nov, [place] [address] [facility] [id number] [address] [place] [address] Oct, Diabetes type 2, uncontrolle d E11.65 [place] [address] [facility] [id number] [address] [place] [address] Sep, Diabetes type 2, uncontrolle d E11.65 [place] [address] [facility] [id number] [address] [place] [phone] Jun, Controlled type 2 diabetes m yaraitus without complication, without long-term current use of insulin E11.9 [place] [address] [facility] [id number] [address] [place] [address] May, [place] [address] [facility] [id number] [address] [place] [id number] 16 May, 2017 Radiculopathy of cervical re gion M54.12 [place] [address] [facility] [id number] [address] [place] [address] May, Controlled type 2 diabetes m ellitus without complication, without long-term current use of insulin E11.9 [facility] [address] [id number] [address] [place] [address] May, [facility] [address] [facility] [id number] [address] [place] [phone] May, Controlled type 2 diabetes m ellitus without complication, without long-term current use of insulin E11.9 [facility] [address] [id number] [address] [place] [phone] May, Controlled type 2 diabetes m ellitus without complication, without long-term current use of insulin E11.9 [facility] [address] [id number] [address] [place] [phone] May, Controlled type 2 diabetes m ellitus without complication, without long-term current use of insulin E11.9 [place] [address] [facility] [id number] [address] [place] [phone] Apr, [facility] [address] [id number] [address] [place] [address] Apr, Controlled type 2 diabetes m ellitus without complication, without long-term current use of insulin E11.9 [facility] [address] [id number] [address] [place] [address] Apr, [facility] [address] [id number] [address] [place] [address] Apr, Controlled type 2 diabetes m ellitus without complication, without long-term current use of insulin E11.9 [place] [address] [id number] [address] [place] [phone] Mar, [facility] [address] [facility] [id number] [address] [place] [address] Mar, Radiculopathy of cervical re gion M54.12 [facility] [address] [facility] [id number] [address] [place] [address] Mar, Controlled type 2 diabetes m ellitus without complication, without long-term current use of insulin E11.9 [facility] [address] [id number] [address] [place] [address] Feb, Cervical radiculopathy M54.1 2 ; Acute cystitis without hematuria N30.00 and History of urethral stricture Z87.448 [facility] [address] [id number] [address] [place] [id number] 11 Feb, 2017 Controlled type 2 diabetes m ellitus without complication, without long-term current use of insulin E11.9 [facility] [address] [id number] [address] [place] [id number] 05 Feb, 2017 [place] [address] [id number] [address] [place] [id number] 15 Jan, 2017 Diabetes type 2, uncontrolle d E11.65 [place] [address] [id number] [address] [place] [address] Jan, [facility] [address] [id number] [address] [place] [phone] Jan, Controlled type 2 diabetes m ellitus without complication, without long-term current use of insulin E11.9 ; Chest wall pain R07.89 and Thoracic spine pain M54.6 [place] [address] [id number] [address] [place] [phone] Dec, [facility] [address] [id number] [address] [place] [phone] Dec, [facility] [address] [id number] [address] [place] [phone] Nov, [facility] [address] [id number] [address] [place] [phone] 28 Nov, 2016 [facility] [address] [id number] [address] [place] [id number] 13 Nov, 2016 Trichomonas exposure Z20.2 [facility] [address] [id number] [address] [place] [address] Oct, [facility] [address] [id number] [address] [place] [address], [place] [address] Oct, [facility] [address] [id number] [address] [place] [address], [place] [address] Oct, [facility] [address] [id number] [address] [place] [address], [place] [address] Oct, [facility] [address] [id number] [address] [place] [address], [place] [address] Sep, [facility] [address] [id number] [address] [place] [address], [place] [address] Sep, [facility] [address] [id number] [address] [place] [address], [place] [address] Aug, [facility] [address] [id number] [address] [place] [address], [place] [address] Aug, [facility] [address] [id number] [address] [place] [address], [place] [address] Aug, [facility] [address] [id number] [address] [place] [address], [place] [address] Aug, [facility] [address] [id number] [address] [place] [address], [place] [address] July, Diabetes type 2, controlled E11.9 [facility] [address] [id number] [address] [place] [address], [place] [address] July, [facility] [address] [id number] [address] [place] [address], [place] [address] July, [facility] [address] [id number] [address] [place] [address], [place] [address] July, [facility] [address] [id number] [address] [place] [address], [place] [address] July, [facility] [address] [id number] [address] [place] [address], [place] [address] Jun, [facility] [address] [id number] [address] [place] [phone] Jun, [facility] [address] [id number] [address] [place] [id number] 16 May, 2016 [facility] [address] [id number] [address] [place] [phone] May, [facility] [address] [id number] [address] [place] [id number] May, [facility] [address] [id number] [address] [place] [phone] May, Controlled type 2 diabetes m ellitus without complication, without long-term current use of insulin E11.9 [facility] [address] [id number] [address] [place] [id number] 15 Apr, 2016 [facility] [address] [id number] [address] [place] [phone] Apr, [facility] [address] [id number] [address] [place] [phone] Mar, [facility] [address] [id number] [address] [place] [phone] Mar, [facility] [address] [id number] [address] [place] [phone] Feb, [facility] [address] [id number] [address] [place] [phone] Feb, [facility] [address] [id number] [address] [place] [phone] Jan, [facility] [address] [id number] [address] [place] [phone] Jan, [facility] [address] [id number] [address] [place] [phone] Jan, [facility] [address] [id number] [address] [place] [phone] Dec, [facility] [address] [id number] [address] [place] [phone] Dec, [facility] [address] [id number] [address] [place] [id number] Dec, [facility] [address] [id number] [address] [place] [id number] 29 Nov, 2015 Diabetes type 2, uncontrolle d E11.65 [facility] [address] [id number] [address] [place] [id number] 14 Nov, 2015 [facility] [address] [id number] [address] [place] [phone] Nov, [facility] [address] [id number] [address] [place] [id number] Oct, [facility] [address] [id number] [address] [place] [phone] Oct, [facility] [address] [id number] [address] [place] [id number] Sep, Controlled type 2 diabetes m ellitus without complication, without long-term current use of insulin E11.9 [facility] [address] [id number] [address] [place] [phone] Sep, [facility] [address] [id number] [address] [place] [phone] Sep, [facility] [address] [id number] [address] [place] [phone] Sep, [facility] [address] [id number] [address] [place] [phone] Sep, [facility] [address] [facility] [id number] [address] [place] [id number] Aug, Diabetes type 2, controlled E11.9 ; Anxiety F41.9 ; Carpal tunnel syndrome, left upper limb G56.02 and Carpal tunnel syndrome, right upper limb G56.01 [facility] [address] [id number] [address] [place] [phone] Aug, Urethritis N34.2 [facility] [address] [id number] [address] [place] [phone] Aug, [facility] [address] [id number] [address] [place] [phone] July, Genital warts A63.0 [facility] [address] [id number] [address] [place] [phone] July, [facility] [address] [id number] [address] [place] [phone] July, Genital warts A63.0 [facility] [address] [id number] [address] [place] [phone] July, Anxiety F41.9 [facility] [address] [id number] [address] [place] [id number] Jun, Genital warts A63.0 [facility] [address] [id number] [address] [place] [phone] Jun, Anxiety F41.9 [facility] [address] [id number] [address] [place] [address] May, Genital warts A63.0 and Diab etes type 2, uncontrolled E11.65 [facility] [address] [id number] [address] [place] [phone] May, [facility] [address] [id number] [address] [place] [phone] May, [facility] [address] [id number] [address] [place] [phone] Apr, [facility] [address] [id number] [address] [place] [phone] Apr, [facility] [address] [id number] [address] [place] [phone] Apr, Diabetes type 2, controlled E11.9 [facility] [address] [id number] [address] [place] [phone] Apr, Genital warts A63.0 [facility] [address] [facility] [id number] [address] [place] [id number] Apr, [facility] [address] [facility] [id number] [address] [place] [phone] Apr, Diabetes type 2, uncontrolle d E11.65 and Genital warts A63.0 [facility] [address] [id number] [address] [place] [phone] Apr, [facility] [address] [facility] [id number] [address] [place] [phone] Mar, [facility] [address] [facility] [id number] [address] [place] [id number] Mar, [facility] [address] [place] [id number] [place] [phone] Mar, Family history of diabetes m ellitus V18.0 and Weight loss R63.4 [facility] [address] [facility] [id number] [address] [place] [id number] Mar, Genital warts A63.0 and Fami ly history of diabetes mellitus V18.0 [facility] [address] [facility] [id number] [address] [place] [phone] Feb, [facility] [address] [facility] [id number] [address] [place] [phone] Jan, [facility] [address] [facility] [id number] [address] [place] [id number] Jan, Perianal venereal warts A63. 0 [facility] [address] [facility] [id number] [address] [place] [phone] Jan, Urethritis N34.2 and Anxiety F41.9 [facility] [address] [place] [id number] [address] [place] [address] Jan, [place] [id number] [place] [address] Jan, Urinary tract infection, sit e unspecified N39.0 [place] [id number] [place] [address] Jan, [place] [address] [place] [id number] [address] [place] [address] Dec, [place] [address] [address] Dec, HPV (human papilloma virus) anogenital infection A63.0 ; Anxiety F41.9 and Gastroesophageal reflux disease without esophagitis K21.9 [place] [address] [place] [id number] [address] [place] [address] Sep, Blood in stool 578.1 [place] [address] [address] Aug, Blood in stool 578.1 [place] [address] [address] Aug, Anxiety 300.00 and Blood in stool 578.1 [place] [address] [place] [id number] [address] [place] [address] July, [place] [address] [place] [id number] [address] [place] [address] July, Family history of diabetes m yaraitus V18.0 [place] [address] [place] [id number] [address] [place] [address] July, Family history of diabetes m ellitus V18.0 ; Family history of thyroid disease V18.19 ; Polyuria 788.42 ; Polydipsia 783.5 ; Alopecia 704.00 and Fatigue 780.79 [place] [address] [place] [id number] [address] [place] [address] Jun, [place] [address] [place] [address] Jun, [facility] [address] [id number] [address] [place] [address], [place] [address] Mar, [facility] [address] [id number] [address] [place] [address], [place] [address] Mar, [facility] [address] [id number] [address] [place] [address], [place] [address] Mar, [facility] [address] [id number] [address] [place] [address], [place] [address] Mar, [facility] [address] [id number] [address] [place] [address], [place] [address] Mar, [facility] [address] [id number] [address] [place] [address], [place] [address] Mar, [facility] [address] [id number] [address] [place] [address], [place] [address] Mar, [facility] [address] [id number] [address] [place] [address], [place] [address] Mar, [facility] [address] [id number] [address] [place] [address], [place] [address] Mar, [facility] [address] [id number] [address] [place] [address], [place] [address] Mar, [facility] [address] [id number] [address] [place] [address], [place] [address] Feb, [facility] [address] [id number] [address] [place] [address], [place] [address] Feb, [facility] [address] [id number] [address] [place] [address], [place] [address] Jan, [facility] [address] [id number] [address] [place] [address], [place] [address] Jan, [facility] [address] [id number] [address] [place] [address], [place] [address] Jan, [facility] [address] [id number] [address] [place] [address], [place] [address] Jan, [facility] [address] [id number] [address] [place] [address], [place] [address] Dec, [facility] [address] [id number] [address] [place] [address], [place] [address] Dec, [facility] [address] [id number] [address] [place] [address], [place] [address] Nov, [facility] [address] [id number] [address] [place] [address], [place] [address] Nov, [facility] [place] [address] [id number] [address] [place] [address], [place] [address] Oct, [facility] [address] [id number] [address] [place] [address], [place] [address] Oct, [facility] [address] [id number] [address] [place] [address], [place] [address] Oct, [facility] [address] [id number] [address] [place] [address], [place] [address] Oct, [facility] [place] [address] [id number] [address] [place] [address], [place] [address] Oct, [facility] [address] [id number] [address] [place] [address], [place] [address] Oct, [facility] [place] [address] [id number] [address] [place] [address], [place] [address] Oct, [facility] [address] [id number] [address] [place] [address], [place] [address] Oct, [facility] [address] [id number] [address] [place] [address], [place] [address] Sep, [facility] [place] [facility] [address] [id number] [address] [place] [address], [place] [address] Sep, [facility] [address] [id number] [address] [place] [address], [place] [address] Sep, [facility] [address] [id number] [facility] [place] [address] Sep, [facility] [address] [id number] [address] [place] [address], [place] [address] Aug, [facility] [address] [id number] [address] [place] [address], [place] [address] Aug, [facility] [address] [id number] [address] [place] [address], [place] [address] Aug, [facility] [address] [id number] [address] [place] [address], [place] [address] Aug, [facility] [address] [id number] [address] [place] [address], [place] [address] July, [facility] [address] [id number] [address] [place] [address], [place] [address] July, [facility] [address] [id number] [address] [place] [address], [place] [address] July, [facility] [address] [id number] [address] [place] [address], [place] [address] July, [facility] [address] [id number] [address] [place] [address], [place] [address] July, [facility] [address] [id number] [address] [place] [address], [place] [address] July, [facility] [address] [id number] [address] [place] [address], [place] [address] Jun, [facility] [address] [id number] [address] [place] [address], [place] [address] Jun, [facility] [address] [id number] [address] [place] [address], [place] [address] Jun, [facility] [address] [id number] [address] [place] [address], [place] [address] Jun, [facility] [address] [id number] [address] [place] [address] 14 Jun, 2013 [facility] [address] [id number] [address] [place] [address], [place] [address] 14 Jun, 2013 [facility] [address] [id number] [address] [place] [address], [place] [id number] 14 Jun, 2013 [facility] [address] [id number] [address] [place] [address], [place] [address] 14 Jun, 2013 [facility] [address] [id number] [address] [place] [address], [place] [address] 19 May, 2013 [facility] [address] [id number] [address] [place] [address], [place] [address] 19 May, 2013 [facility] [address] [id number] [address] [place] [address], [place] [address] 18 May, 2013 [facility] [address] [id number] [address] [place] [address], [place] [address] Apr, [facility] [address] [id number] [address] [place] [address], [place] [address] Apr, [facility] [address] [id number] [address] [place] [address], [place] [address] Apr, [facility] [address] [id number] [address] [place] [address], [place] [address] Apr, [facility] [address] [id number] [address] [place] [address], [place] [address] Mar, [facility] [address] [id number] [address] [place] [address], [place] [address] Mar, [facility] [address] [id number] [address] [place] [address], [place] [address] Mar, [facility] [address] [id number] [address] [place] [address], [place] [address] Mar, [facility] [address] [id number] [address] [place] [address], [place] [address] Mar, [facility] [address] [id number] [address] [place] [address], [place] [address] Mar, [facility] [address] [id number] [address] [place] [address], [place] [address] Feb, [facility] [address] [id number] [address] [place] [address], [place] [address] Feb, [facility] [address] [id number] [address] [place] [address], [place] [address] Jan, [facility] [address] [id number] [address] [place] [address], [place] [address] Jan, [facility] [address] [id number] [address] [place] [address], [place] [address] Jan, [facility] [address] [id number] [address] [place] [address], [place] [address] Jan, [facility] [address] [id number] [address] [place] [address], [place] [address] Jan, [facility] [address] [id number] [address] [place] [address], [place] [address] Jan, [facility] [address] [id number] [address] [place] [address], [place] [address] Jan, [facility] [address] [id number] [address] [place] [address], [place] [address] Dec, [facility] [address] [id number] [address] [place] [address], [place] [address] Dec, [facility] [address] [id number] [address] [place] [address], [place] [address] Nov, [facility] [address] [id number] [address] [place] [address], [place] [address] 26 Nov, 2012 [facility] [address] [id number] [address] [place] [address], [place] [address] 11 Nov, 2012 [facility] [address] [id number] [address] [place] [address] [place] [address] Oct, [facility] [address] [id number] [address] [place] [address], [place] [address] Oct, [facility] [address] [id number] [address] [place] [address], [place] [address] Oct, [facility] [address] [id number] [address] [place] [address], [place] [address] Oct, [facility] [address] [id number] [address] [place] [address], [place] [address] Sep, [facility] [address] [id number] [address] [place] [address], [place] [address] Sep, [facility] [address] [id number] [address] [place] [address], [place] [address] Aug, [facility] [address] [id number] [address] [place] [address], [place] [address] Aug, [facility] [address] [id number] [address] [place] [address], [place] [address] Aug, [facility] [address] [id number] [address] [place] [address], [place] [address] Aug, [facility] [address] [id number] [address] [place] [address], [place] [address] July, [facility] [address] [id number] [address] [place] [address], [place] [address] July, [facility] [address] [id number] [address] [place] [address], [place] [address] July, [facility] [address] [id number] [address] [place] [address], [place] [address] July, [facility] [address] [id number] [address] [place] [address], [place] [address] Jun, [facility] [address] [id number] [address] [place] [address], [place] [address] Jun, [facility] [address] [facility] [id number] [address] [place] [id number] Feb, [facility] [address] [facility] [id number] [address] [place] [id number] Feb, [facility] [address] [facility] [id number] [address] [place] [id number] Mar, IMMUNIZATIONS No Known Immunizations SOCIAL HISTORY Never Assessed REASON FOR VISIT EMR-[facility] PLAN OF CARE VITAL SIGNS MEDICATIONS Medication Instructions Dosage Frequency Start Date End Date Duration S tatus buspirone 10 mg take 2 tablet by Oral route 2 times per day Jan, Active Bactrim DS 800-160 mg 1 tablet by Oral route 2 times p er day for 10 day(s) July, Active RESULTS No Results PROCEDURES No Known [...]
--- OUTSIDE RECORDS SUMMARY | 2019-08-16 14:17 | XMS REPORT ---
Author Author Joseph LACKEY Organization [facility] Address [address] [place] [address] Care Team Providers Care Lehr Attendant Name Role Phone JODY LACKEY Unavailable PROBLEMS Type Condition ICD9-CM Code YMP65-ME Code Onset Dates Condition S tatus SNOMED Code Problem Shoulder pain, right M25.511 Active 09611163 Problem Diabetes type 2, uncontrolled E11.65 Active 440544566 Problem Hypertension, benign I10 Active 19763060 Problem Mood disorder F39 Active 195590 05 Problem Acquired hypothyroidism E03.9 Active 918133234 Problem Low back pain M54.5 Active 688937 005 Problem rn long term care current use of insulin Z79.4 Active 317026062 Problem Type 2 diabetes mellitus without complications E11 .9 Active 029863284 Problem Controlled type 2 diabetes m ellitus without complication, without long- term current use of insulin E11.9 Active 624420391 Problem Diabetes type 2, controlled E11.9 Ac tive 97491861 Problem Cervical radiculopathy M54.12 Active 70950824 Problem History of urethral stricture Z87.448 Active 831850153 ALLERGIES No Known Allergies ENCOUNTERS Encounter Location Date Diagnosis [id number] [place] [id number] [address] [place] [address] Dec, Diabetes type 2, uncontrolle d E11.65 [facility] [address] [facility] [id number] [address] [place] [address] Dec, Type 2 diabetes mellitus wit hout complications E11.9 ; FDC current use of insulin Z79.4 and Cervicalgia M54.2 [facility] [address] [facility] [id number] [address] [place] [address] Dec, Type 2 diabetes mellitus wit hout complications E11.9 ; rn long term care current use of insulin Z79.4 and Cervicalgia M54.2 [place] [address] [place] [id number] [address] [place] [address] Dec, Controlled type 2 diabetes m ellitus without complication, without long-term current use of insulin E11.9 [facility] [address] [id number] [address] [place] [address] Nov, [place] [address] [id number] [address] [place] [address] Oct, Diabetes type 2, uncontrolle d E11.65 [place] [address] [id number] [address] [place] [address] Sep, Diabetes type 2, uncontrolle d E11.65 [place] [address] [id number] [address] [place] [address] Jun, Controlled type 2 diabetes m ellitus without complication, without long-term current use of insulin E11.9 [place] [address] [id number] [address] [place] [address] May, [place] [address] [id number] [address] [place] [address] May, Radiculopathy of cervical re gion M54.12 [place] [address] [id number] [address] [place] [address] 14 May, 2017 Controlled type 2 diabetes m ellitus without complication, without long-term current use of insulin E11.9 [place] [address] [id number] [address] [place] [address] May, [place] [address] [id number] [address] [place] [address] May, Controlled type 2 diabetes m ellitus without complication, without long-term current use of insulin E11.9 [place] [address] [id number] [address] [place] [address] May, Controlled type 2 diabetes m ellitus without complication, without long-term current use of insulin E11.9 [place] [address] [id number] [address] [place] [address] May, Controlled type 2 diabetes m ellitus without complication, without long-term current use of insulin E11.9 [facility] [address] [id number] [address] [place] [address] Apr, [facility] [address] [id number] [address] [place] [address] Apr, Controlled type 2 diabetes m ellitus without complication, without long-term current use of insulin E11.9 [facility] [address] [id number] [address] [place] [address] Apr, [facility] [address] [id number] [address] [place] [address] Apr, Controlled type 2 diabetes m ellitus without complication, without long-term current use of insulin E11.9 [place] [address] [id number] [address] [place] [address] Mar, [facility] [address] [id number] [address] [place] [address] Mar, Radiculopathy of cervical re gion M54.12 [facility] [address] [id number] [address] [place] [address] Mar, Controlled type 2 diabetes m ellitus without complication, without long-term current use of insulin E11.9 [facility] [address] [id number] [address] [place] [address] Feb, Cervical radiculopathy M54.1 2 ; Acute cystitis without hematuria N30.00 and History of urethral stricture Z87.448 [facility] [address] [id number] [address] [place] [address] Feb, Controlled type 2 diabetes m ellitus without complication, without long-term current use of insulin E11.9 [facility] [address] [id number] [address] [place] [address] Feb, [facility] [address] [id number] [address] [place] [address] Jan, Diabetes type 2, uncontrolle d E11.65 [facility] [address] [id number] [address] [place] [address] Jan, [facility] [address] [id number] [address] [place] [address] Jan, Controlled type 2 diabetes m ellitus without complication, without long-term current use of insulin E11.9 ; Chest wall pain R07.89 and Thoracic spine pain M54.6 [facility] [address] [id number] [address] [place] [address] Dec, [facility] [address] [id number] [address] [place] [address] Dec, [facility] [address] [id number] [address] [place] [address] Nov, [facility] [address] [id number] [address] [place] [address] Nov, [facility] [address] [id number] [address] [place] [address] Nov, Trichomonas exposure Z20.2 [facility] [address] [id number] [address] [place] [address] Oct, [facility] [address] [id number] [address] [place] [address] Oct, [facility] [address] [id number] [address] [place] [address] Oct, [facility] [address] [id number] [address] [place] [address] Oct, [facility] [address] [id number] [address] [place] [address] Sep, [facility] [address] [id number] [address] [place] [address] Sep, [facility] [address] [id number] [address] [place] [address], [place] [address] Aug, [facility] [address] [id number] [address] [place] [address], [place] [address] Aug, [facility] [address] [id number] [address] [place] [address], [place] [address] Aug, [facility] [address] [id number] [address] [place] [address], [place] [address] Aug, [facility] [address] [id number] [address] [place] [address], [place] [address] July, Diabetes type 2, controlled E11.9 [facility] [address] [id number] [address] [place] [address], [place] [address] July, [facility] [address] [id number] [address] [place] [address], [place] [address] July, [facility] [address] [id number] [address] [place] [address], [place] [address] July, [facility] [address] [id number] [address] [place] [address], [place] [address] July, [facility] [address] [id number] [address] [place] [address], [place] [address] Jun, [facility] [address] [id number] [address] [place] [address], [place] [address] Jun, [facility] [address] [id number] [address] [place] [address] May, [facility] [address] [id number] [address] [place] [address], [place] [address] May, [facility] [address] [id number] [address] [place] [address], [place] [address] May, [facility] [address] [id number] [address] [place] [address], [place] [address] May, Controlled type 2 diabetes m ellitus without complication, without long-term current use of insulin E11.9 [facility] [address] [id number] [address] [place] [address], [place] [address] Apr, [facility] [address] [id number] [address] [place] [address] Apr, [facility] [address] [id number] [address] [place] [address], [place] [address] Mar, [facility] [address] [id number] [address] [place] [address] Mar, [facility] [address] [id number] [address] [place] [address], [place] [address] Feb, [facility] [address] [id number] [address] [place] [address] Feb, [facility] [address] [id number] [address] [place] [address], [place] [address] Jan, [facility] [address] [id number] [address] [place] [address] Jan, [facility] [address] [id number] [address] [place] [address] Jan, [facility] [address] [id number] [address] [place] [address] Dec, [facility] [address] [id number] [address] [place] [address] Dec, [facility] [address] [id number] [address] [place] [address] Dec, [facility] [address] [id number] [address] [place] [address] 29 Nov, 2015 Diabetes type 2, uncontrolle d E11.65 [facility] [address] [id number] [address] [place] [address] 14 Nov, 2015 [facility] [address] [id number] [address] [place] [address] Nov, [facility] [address] [id number] [address] [place] [address] Oct, [facility] [address] [id number] [address] [place] [address] Oct, [facility] [address] [id number] [address] [place] [address] Sep, Controlled type 2 diabetes m ellitus without complication, without long-term current use of insulin E11.9 [facility] [address] [id number] [address] [place] [address] Sep, [facility] [address] [id number] [address] [place] [id number] Sep, [facility] [address] [id number] [address] [place] [address] Sep, [facility] [address] [id number] [address] [place] [address] Sep, [facility] [address] [facility] [id number] [address] [place] [address] Aug, Diabetes type 2, controlled E11.9 ; Anxiety F41.9 ; Carpal tunnel syndrome, left upper limb G56.02 and Carpal tunnel syndrome, right upper limb G56.01 [facility] [address] [facility] [id number] [address] [place] [address] Aug, Urethritis N34.2 [facility] [address] [id number] [address] [place] [address] Aug, [facility] [address] [id number] [address] [place] [address] July, Genital warts A63.0 [facility] [address] [id number] [address] [place] [address] July, [facility] [address] [facility] [id number] [address] [place] [address] July, Genital warts A63.0 [facility] [address] [id number] [address] [place] [address] July, Anxiety F41.9 [facility] [address] [id number] [address] [place] [address] Jun, Genital warts A63.0 [facility] [address] [id number] [address] [place] [address] Jun, Anxiety F41.9 [facility] [address] [id number] [address] [place] [address] May, Genital warts A63.0 and Diab etes type 2, uncontrolled E11.65 [facility] [address] [id number] [address] [place] [address] May, [facility] [address] [id number] [address] [place] [address] May, [facility] [address] [id number] [address] [place] [address] Apr, [facility] [address] [id number] [address] [place] [address] Apr, [facility] [address] [id number] [address] [place] [address] Apr, Diabetes type 2, controlled E11.9 [facility] [address] [id number] [address] [place] [address] Apr, Genital warts A63.0 [facility] [address] [id number] [address] [place] [address] Apr, [facility] [address] [id number] [address] [place] [address] Apr, Diabetes type 2, uncontrolle d E11.65 and Genital warts A63.0 [facility] [address] [id number] [address] [place] [address] Apr, [facility] [address] [id number] [address] [place] [address] Mar, [facility] [address] [facility] [id number] [address] [place] [address] Mar, [facility] [address] [facility] [id number] [address] [place] [address] Mar, Family history of diabetes m ellitus V18.0 and Weight loss R63.4 [facility] [address] [facility] [id number] [address] [place] [address] Mar, Genital warts A63.0 and Fami ly history of diabetes mellitus V18.0 [facility] [address] [facility] [id number] [address] [place] [address] Feb, [facility] [address] [facility] [id number] [address] [place] [address] Jan, [facility] [address] [place] [id number] [address] [place] [address] Jan, Perianal venereal warts A63. 0 [facility] [address] [facility] [id number] [address] [place] [address] Jan, Urethritis N34.2 and Anxiety F41.9 [place] [address] [facility] [id number] [address] [place] [address] Jan, [facility] [address] [facility] [id number] [address] [place] [address] Jan, Urinary tract infection, sit e unspecified N39.0 [facility] [address] [facility] [id number] [address] [place] [address] Jan, [facility] [address] [facility] [id number] [address] [place] [address] Dec, [facility] [address] [facility] [id number] [address] [place] [address] Dec, HPV (human papilloma virus) anogenital infection A63.0 ; Anxiety F41.9 and Gastroesophageal reflux disease without esophagitis K21.9 [facility] [address] [facility] [id number] [address] [place] [address] Sep, Blood in stool 578.1 [facility] [address] [facility] [id number] [address] [place] [address] Aug, Blood in stool 578.1 [facility] [address] [facility] [id number] [address] [place] [address] Aug, Anxiety 300.00 and Blood in stool 578.1 [facility] [address] [facility] [id number] [address] [place] [address] July, [facility] [address] [place] [id number] [address] [place] [address] July, Family history of diabetes m ellitus V18.0 [place] [address] [place] [id number] [address] [place] [address] July, Family history of diabetes m ellitus V18.0 ; Family history of thyroid disease V18.19 ; Polyuria 788.42 ; Polydipsia 783.5 ; Alopecia 704.00 and Fatigue 780.79 [facility] [address] [facility] [id number] [address] [place] [address] Jun, [facility] [address] [facility] [id number] [address] [place] [address] Jun, [facility] [address] [place] [id number] [address] [place] [address] Mar, [facility] [address] [facility] [id number] [address] [place] [address] Mar, [facility] [address] [place] [id number] [address] [place] [address] Mar, [facility] [address] [facility] [id number] [address] [place] [address] Mar, [facility] [address] [place] [id number] [address] [place] [phone] Mar, [facility] [address] [id number] [address] [place] [address], [place] [address] Mar, [facility] [address] [id number] [address] [place] [address], [place] [address] Mar, [facility] [address] [id number] [address] [place] [address], [place] [address] Mar, [facility] [address] [id number] [address] [place] [address], [place] [address] Mar, [facility] [address] [id number] [address] [place] [address], [place] [address] Mar, [facility] [address] [id number] [address] [place] [address], [place] [address] Feb, [facility] [address] [id number] [address] [place] [address], [place] [address] Feb, [facility] [address] [id number] [address] [place] [address], [place] [address] Jan, [facility] [address] [id number] [address] [place] [address], [place] [address] Jan, [facility] [address] [id number] [address] [place] [address], [place] [address] Jan, [facility] [address] [id number] [address] [place] [address], [place] [address] Jan, [facility] [address] [id number] [address] [place] [address], [place] [address] Dec, [facility] [address] [id number] [address] [place] [address], [place] [address] Dec, [facility] [address] [id number] [address] [place] [address], [place] [address] Nov, [facility] [address] [id number] [address] [place] [address], [place] [address] Nov, [facility] [address] [id number] [address] [place] [address], [place] [address] Oct, [facility] [address] [id number] [facility] [place] [address] Oct, [facility] [address] [id number] [address] [place] [address], [place] [address] Oct, [facility] [address] [id number] [address] [place] [address], [place] [address] Oct, [facility] [address] [id number] [address] [place] [address], [place] [address] Oct, [facility] [address] [id number] [address] [place] [address], [place] [address] Oct, [facility] [address] [id number] [address] [place] [address], [place] [address] Oct, [facility] [address] [id number] [address] [place] [address], [place] [address] Oct, [facility] [address] [id number] [address] [place] [address], [place] [address] Sep, [facility] [address] [id number] [address] [place] [address], [place] [address] Sep, [facility] [address] [id number] [address] [place] [address], [place] [address] Sep, [facility] [address] [id number] [address] [place] [address], [place] [address] Sep, [facility] [address] [id number] [address] [place] [address], [place] [address] Aug, [facility] [address] [id number] [address] [place] [address], [place] [address] Aug, [facility] [address] [id number] [address] [place] [address], [place] [address] Aug, [facility] [address] [id number] [address] [place] [address], [place] [id number] Aug, [facility] [address] [id number] [address] [place] [address], [place] [id number] July, [facility] [place] [address] [id number] [address] [place] [address], [place] [id number] July, [facility] [address] [id number] [address] [place] [address], [place] [id number] July, [facility] [place] [address] [id number] [address] [place] [address], [place] [id number] July, [facility] [address] [id number] [address] [place] [address], [place] [id number] July, [facility] [address] [id number] [address] [place] [address], [place] [id number] July, [facility] [address] [id number] [address] [place] [address], [place] [id number] Jun, [facility] [place] [address] [id number] [address] [place] [address], [place] [id number] Jun, [facility] [address] [id number] [address] [place] [address], [place] [id number] Jun, [facility] [place] [address] [id number] [address] [place] [address], [place] [id number] Jun, [facility] [address] [id number] [address] [place] [address], [place] [id number] Jun, [facility] [address] [id number] [address] [place] [address], [place] [id number] Jun, [facility] [place] [address] [id number] [address] [place] [address], [place] [id number] Jun, [facility] [address] [id number] [address] [place] [address], [place] [id number] Jun, [facility] [address] [id number] [address] [place] [address], [place] [id number] May, [facility] [address] [id number] [address] [place] [address], [place] [id number] May, [facility] [address] [id number] [address] [place] [id number] May, [facility] [facility] [address] [id number] [address] [place] [address], [place] [id number] Apr, [facility] [address] [id number] [address] [place] [address], [place] [id number] Apr, [facility] [address] [id number] [address] [place] [address], [place] [id number] Apr, [facility] [address] [id number] [address] [place] [address], [place] [id number] Apr, [facility] [address] [id number] [address] [place] [address], [place] [id number] Mar, [facility] [address] [id number] [address] [place] [address], [place] [id number] Mar, [facility] [address] [id number] [address] [place] [address], [place] [id number] Mar, [facility] [address] [id number] [address] [place] [address], [place] [id number] Mar, [facility] [address] [id number] [address] [place] [address], [place] [id number] Mar, [facility] [address] [id number] [address] [place] [address], [place] [id number] Mar, [facility] [address] [id number] [address] [place] [address], [place] [id number] Feb, [facility] [address] [id number] [address] [place] [address], [place] [id number] Feb, [facility] [address] [id number] [address] [place] [address], [place] [id number] Jan, [facility] [address] [id number] [address] [place] [address], [place] [id number] Jan, [facility] [address] [id number] [address] [place] [address], [place] [id number] Jan, [facility] [address] [id number] [address] [place] [address], [place] [phone] Jan, [facility] [address] [id number] [address] [place] [address], [place] [id number] Jan, [facility] [address] [id number] [address] [place] [address], [place] [id number] Jan, [facility] [address] [id number] [address] [place] [address], [place] [phone] Jan, [facility] [address] [id number] [address] [place] [address], [place] [id number] Dec, [facility] [address] [id number] [address] [place] [address], [place] [id number] Dec, [facility] [address] [id number] [address] [place] [address], [place] [id number] Nov, [facility] [address] [id number] [address] [place] [address], [place] [id number] Nov, [facility] [address] [id number] [address] [place] [address], [place] [id number] Nov, [facility] [address] [id number] [address] [place] [address], [place] [id number] Oct, [facility] [address] [id number] [address] [place] [address], [place] [id number] Oct, [facility] [address] [id number] [address] [place] [address], [place] [id number] Oct, [facility] [address] [id number] [address] [place] [address], [place] [id number] Oct, [facility] [address] [id number] [address] [place] [address], [place] [id number] Sep, [facility] [address] [id number] [address] [place] [address], [place] [id number] Sep, [facility] [address] [id number] [address] [place] [id number] Aug, [facility] [address] [id number] [address] [place] [phone] Aug, [facility] [address] [id number] [address] [place] [id number] Aug, [facility] [address] [id number] [address] [place] [phone] Aug, [facility] [address] [id number] [address] [place] [id number] July, [facility] [address] [id number] [address] [place] [id number] July, [facility] [address] [id number] [address] [place] [id number] July, [facility] [address] [id number] [address] [place] [id number] July, [facility] [address] [id number] [address] [place] [phone] Jun, [facility] [address] [id number] [address] [place] [phone] Jun, [facility] [address] [id number] [address] [place] [id number] Feb, [facility] [address] [id number] [address] [place] [phone] Feb, [facility] [address] [id number] [address] [place] [id number] Mar, IMMUNIZATIONS No Known Immunizations SOCIAL HISTORY Never Assessed REASON FOR VISIT 3 week follow up, was in [facility] for spider bite to back of head. DOUGLAS Epps PLAN OF CARE Activity Details Follow Up 2 Months Reason: VITAL SIGNS Height 68 in 2017-10-25 Weight 187.7 lbs 2017-10-25 Temperature 98.2 degrees Fahrenheit 2017-10-25 Heart Rate 75 bpm 2017-10-25 Respiratory Rate 20 2017-10-25 BMI 28.54 kg/m2 2017-10-25 Blood pressure systolic 108 mmHg 2017-10-25 Blood pressure diastolic 70 mmHg 2017-10-25 MEDICATIONS Medication Instructions Dosage Frequency Start Date End Date Duration S tatus GlipiZIDE 10 mg Orally Once a day 1 tablet 24h Sep, 30 day(s) Active [place] Contour Next Test 1 In Vitro 2 times a day 1 test 12h 15 May, 2015 Active Metformin HCl 1000 MG TAKE ONE TABLET BY MOUTH TWICE DAILY W ITH MEALS 30 Active Tresiba FlexTouch Active RESULTS No Results PROCEDURES No Known [...]
--- OUTSIDE RECORDS SUMMARY | 2019-08-16 14:17 | XMS REPORT ---
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 Name Role Phone Migration, Doctor Unavailable Unavailable PROBLEMS Type Condition ICD9-CM Code ODH29-VS Code Onset Dates Condition S tatus SNOMED Code Problem Shoulder pain, right M25.511 Active 68315131 Problem Hypertension, benign I10 Active 71306676 Problem Diabetes type 2, uncontrolled E11.65 Active 011940523 Problem Mood disorder F39 Active 599771 05 Problem Type 2 diabetes mellitus without complications E11 .9 Active 730696917 Problem Low back pain M54.5 Active 806852 005 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 168761704 Problem Acquired hypothyroidism E03.9 Active 994664620 Problem Diabetes type 2, controlled E11.9 Ac tive 40668904 Problem Controlled type 2 diabetes m ellitus without complication, without long- term current use of insulin E11.9 Active 875221414 Problem History of urethral stricture Z87.448 Active 715244500 Problem Cervical radiculopathy M54.12 Active 59100793 ALLERGIES No Information ENCOUNTERS Encounter Location Date Diagnosis [place] [id number] [facility] [id number] [address] [place] [address] Jun, [place] [address] [facility] [id number] [address] [place] [address] May, Controlled type 2 diabetes m ellitus without complication, without long-term current use of insulin E11.9 [facility] [address] [facility] [id number] [address] [place] [address] Apr, [facility] [address] [facility] [id number] [address] [place] [address] Mar, Controlled type 2 diabetes m ellitus without complication, without long-term current use of insulin E11.9 [facility] [address] [facility] [id number] [address] [place] [address] Jan, [facility] [address] [facility] [id number] [address] [place] [address] Dec, Diabetes type 2, uncontrolle d E11.65 [place] [address] [facility] [id number] [address] [place] [address] Dec, Type 2 diabetes mellitus wit hout complications E11.9 ; 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.4 and Cervicalgia M54.2 [place] [address] [facility] [id number] [address] [place] [address] Dec, Type 2 diabetes mellitus wit hout complications E11.9 ; shelter current use of insulin Z79.4 and Cervicalgia M54.2 [place] [address] [facility] [id number] [address] [place] [address] Dec, Controlled type 2 diabetes m yaraitus without complication, without long-term current use of insulin E11.9 [place] [address] [facility] [id number] [address] [place] [address] Nov, [place] [address] [facility] [id number] [address] [place] [address] Oct, Diabetes type 2, uncontrolle d E11.65 [place] [address] [facility] [id number] [address] [place] [address] Sep, Diabetes type 2, uncontrolle d E11.65 [place] [address] [facility] [id number] [address] [place] [address] Jun, Controlled type 2 diabetes m yaraitus without complication, without long-term current use of insulin E11.9 [place] [address] [facility] [id number] [address] [place] [address] May, [place] [address] [facility] [id number] [address] [place] [address] 16 May, 2017 Radiculopathy of cervical re gion M54.12 [place] [address] [facility] [id number] [address] [place] [address] May, Controlled type 2 diabetes m ellitus without complication, without long-term current use of insulin E11.9 [facility] [address] [id number] [address] [place] [address] May, [facility] [address] [facility] [id number] [address] [place] [address] May, Controlled type 2 diabetes m ellitus without complication, without long-term current use of insulin E11.9 [facility] [address] [id number] [address] [place] [address] May, Controlled type 2 diabetes m ellitus without complication, without long-term current use of insulin E11.9 [facility] [address] [id number] [address] [place] [address] May, Controlled type 2 diabetes m ellitus without complication, without long-term current use of insulin E11.9 [place] [address] [facility] [id number] [address] [place] [address] Apr, [facility] [address] [id number] [address] [place] [address] Apr, Controlled type 2 diabetes m ellitus without complication, without long-term current use of insulin E11.9 [facility] [address] [id number] [address] [place] [address] Apr, [facility] [address] [id number] [address] [place] [address] Apr, Controlled type 2 diabetes m ellitus without complication, without long-term current use of insulin E11.9 [place] [address] [id number] [address] [place] [address] Mar, [facility] [address] [facility] [id number] [address] [place] [address] Mar, Radiculopathy of cervical re gion M54.12 [facility] [address] [facility] [id number] [address] [place] [address] Mar, Controlled type 2 diabetes m ellitus without complication, without long-term current use of insulin E11.9 [facility] [address] [id number] [address] [place] [address] Feb, Cervical radiculopathy M54.1 2 ; Acute cystitis without hematuria N30.00 and History of urethral stricture Z87.448 [facility] [address] [id number] [address] [place] [address] 11 Feb, 2017 Controlled type 2 diabetes m ellitus without complication, without long-term current use of insulin E11.9 [facility] [address] [id number] [address] [place] [address] 05 Feb, 2017 [place] [address] [id number] [address] [place] [address] 15 Jan, 2017 Diabetes type 2, uncontrolle d E11.65 [place] [address] [id number] [address] [place] [address] Jan, [facility] [address] [id number] [address] [place] [address] Jan, Controlled type 2 diabetes m ellitus without complication, without long-term current use of insulin E11.9 ; Chest wall pain R07.89 and Thoracic spine pain M54.6 [place] [address] [id number] [address] [place] [address] Dec, [facility] [address] [id number] [address] [place] [address] Dec, [facility] [address] [id number] [address] [place] [address] Nov, [facility] [address] [id number] [address] [place] [address] 28 Nov, 2016 [facility] [address] [id number] [address] [place] [address] 13 Nov, 2016 Trichomonas exposure Z20.2 [facility] [address] [id number] [address] [place] [address] Oct, [facility] [address] [id number] [address] [place] [address], [place] [address] Oct, [facility] [address] [id number] [address] [place] [address], [place] [address] Oct, [facility] [address] [id number] [address] [place] [address], [place] [address] Oct, [facility] [address] [id number] [address] [place] [address], [place] [address] Sep, [facility] [address] [id number] [address] [place] [address], [place] [address] Sep, [facility] [address] [id number] [address] [place] [address], [place] [address] Aug, [facility] [address] [id number] [address] [place] [address], [place] [address] Aug, [facility] [address] [id number] [address] [place] [address], [place] [address] Aug, [facility] [address] [id number] [address] [place] [address], [place] [address] Aug, [facility] [address] [id number] [address] [place] [address], [place] [address] July, Diabetes type 2, controlled E11.9 [facility] [address] [id number] [address] [place] [address], [place] [address] July, [facility] [address] [id number] [address] [place] [address], [place] [address] July, [facility] [address] [id number] [address] [place] [address], [place] [address] July, [facility] [address] [id number] [address] [place] [address], [place] [address] July, [facility] [address] [id number] [address] [place] [address], [place] [address] Jun, [facility] [address] [id number] [address] [place] [address] Jun, [facility] [address] [id number] [address] [place] [address] 16 May, 2016 [facility] [address] [id number] [address] [place] [address] May, [facility] [address] [id number] [address] [place] [address] May, [facility] [address] [id number] [address] [place] [address] May, Controlled type 2 diabetes m ellitus without complication, without long-term current use of insulin E11.9 [facility] [address] [id number] [address] [place] [address] 15 Apr, 2016 [facility] [address] [id number] [address] [place] [address] Apr, [facility] [address] [id number] [address] [place] [address] Mar, [facility] [address] [id number] [address] [place] [address] Mar, [facility] [address] [id number] [address] [place] [address] Feb, [facility] [address] [id number] [address] [place] [address] Feb, [facility] [address] [id number] [address] [place] [address] Jan, [facility] [address] [id number] [address] [place] [address] Jan, [facility] [address] [id number] [address] [place] [address] Jan, [facility] [address] [id number] [address] [place] [address] Dec, [facility] [address] [id number] [address] [place] [address] Dec, [facility] [address] [id number] [address] [place] [address] Dec, [facility] [address] [id number] [address] [place] [address] 29 Nov, 2015 Diabetes type 2, uncontrolle d E11.65 [facility] [address] [id number] [address] [place] [address] 14 Nov, 2015 [facility] [address] [id number] [address] [place] [address] Nov, [facility] [address] [id number] [address] [place] [address] Oct, [facility] [address] [id number] [address] [place] [address] Oct, [facility] [address] [id number] [address] [place] [address] Sep, Controlled type 2 diabetes m ellitus without complication, without long-term current use of insulin E11.9 [facility] [address] [id number] [address] [place] [address] Sep, [facility] [address] [id number] [address] [place] [address] Sep, [facility] [address] [id number] [address] [place] [address] Sep, [facility] [address] [id number] [address] [place] [address] Sep, [facility] [address] [facility] [id number] [address] [place] [address] Aug, Diabetes type 2, controlled E11.9 ; Anxiety F41.9 ; Carpal tunnel syndrome, left upper limb G56.02 and Carpal tunnel syndrome, right upper limb G56.01 [facility] [address] [id number] [address] [place] [address] Aug, Urethritis N34.2 [facility] [address] [id number] [address] [place] [address] Aug, [facility] [address] [id number] [address] [place] [address] July, Genital warts A63.0 [facility] [address] [id number] [address] [place] [address] July, [facility] [address] [id number] [address] [place] [address] July, Genital warts A63.0 [facility] [address] [id number] [address] [place] [address] July, Anxiety F41.9 [facility] [address] [id number] [address] [place] [address] Jun, Genital warts A63.0 [facility] [address] [id number] [address] [place] [address] Jun, Anxiety F41.9 [facility] [address] [id number] [address] [place] [address] May, Genital warts A63.0 and Diab etes type 2, uncontrolled E11.65 [facility] [address] [id number] [address] [place] [address] May, [facility] [address] [id number] [address] [place] [address] May, [facility] [address] [id number] [address] [place] [address] Apr, [facility] [address] [id number] [address] [place] [address] Apr, [facility] [address] [id number] [address] [place] [address] Apr, Diabetes type 2, controlled E11.9 [facility] [address] [id number] [address] [place] [address] Apr, Genital warts A63.0 [facility] [address] [facility] [id number] [address] [place] [address] Apr, [facility] [address] [facility] [id number] [address] [place] [address] Apr, Diabetes type 2, uncontrolle d E11.65 and Genital warts A63.0 [facility] [address] [id number] [address] [place] [address] Apr, [facility] [address] [facility] [id number] [address] [place] [address] Mar, [facility] [address] [facility] [id number] [address] [place] [address] Mar, [facility] [address] [place] [id number] [place] [address] Mar, Family history of diabetes m ellitus V18.0 and Weight loss R63.4 [facility] [address] [facility] [id number] [address] [place] [address] Mar, Genital warts A63.0 and Fami ly history of diabetes mellitus V18.0 [facility] [address] [facility] [id number] [address] [place] [address] Feb, [facility] [address] [facility] [id number] [address] [place] [address] Jan, [facility] [address] [facility] [id number] [address] [place] [address] Jan, Perianal venereal warts A63. 0 [facility] [address] [facility] [id number] [address] [place] [address] Jan, Urethritis N34.2 and Anxiety F41.9 [facility] [address] [place] [id number] [address] [place] [address] Jan, [place] [id number] [place] [address] Jan, Urinary tract infection, sit e unspecified N39.0 [place] [id number] [place] [address] Jan, [place] [address] [place] [id number] [address] [place] [address] Dec, [place] [address] [address] Dec, HPV (human papilloma virus) anogenital infection A63.0 ; Anxiety F41.9 and Gastroesophageal reflux disease without esophagitis K21.9 [place] [address] [place] [id number] [address] [place] [address] Sep, Blood in stool 578.1 [place] [address] [address] Aug, Blood in stool 578.1 [place] [address] [address] Aug, Anxiety 300.00 and Blood in stool 578.1 [place] [address] [place] [id number] [address] [place] [address] July, [place] [address] [place] [id number] [address] [place] [address] July, Family history of diabetes m yaraitus V18.0 [place] [address] [place] [id number] [address] [place] [address] July, Family history of diabetes m ellitus V18.0 ; Family history of thyroid disease V18.19 ; Polyuria 788.42 ; Polydipsia 783.5 ; Alopecia 704.00 and Fatigue 780.79 [place] [address] [place] [id number] [address] [place] [address] Jun, [place] [address] [place] [address] Jun, [facility] [address] [id number] [address] [place] [address], [place] [address] Mar, [facility] [address] [id number] [address] [place] [address], [place] [address] Mar, [facility] [address] [id number] [address] [place] [address], [place] [address] Mar, [facility] [address] [id number] [address] [place] [address], [place] [address] Mar, [facility] [address] [id number] [address] [place] [address], [place] [address] Mar, [facility] [address] [id number] [address] [place] [address], [place] [address] Mar, [facility] [address] [id number] [address] [place] [address], [place] [address] Mar, [facility] [address] [id number] [address] [place] [address], [place] [address] Mar, [facility] [address] [id number] [address] [place] [address], [place] [address] Mar, [facility] [address] [id number] [address] [place] [address], [place] [address] Mar, [facility] [address] [id number] [address] [place] [address], [place] [address] Feb, [facility] [address] [id number] [address] [place] [address], [place] [address] Feb, [facility] [address] [id number] [address] [place] [address], [place] [address] Jan, [facility] [address] [id number] [address] [place] [address], [place] [address] Jan, [facility] [address] [id number] [address] [place] [address], [place] [address] Jan, [facility] [address] [id number] [address] [place] [address], [place] [address] Jan, [facility] [address] [id number] [address] [place] [address], [place] [address] Dec, [facility] [address] [id number] [address] [place] [address], [place] [address] Dec, [facility] [address] [id number] [address] [place] [address], [place] [address] Nov, [facility] [address] [id number] [address] [place] [address], [place] [address] Nov, [facility] [address] [id number] [address] [place] [address], [place] [address] Oct, [facility] [place] [facility] [address] [id number] [address] [place] [address], [place] [address] Oct, [facility] [place] [facility] [address] [id number] [address] [place] [address], [place] [address] Oct, [facility] [place] [facility] [address] [id number] [address] [place] [address], [place] [address] Oct, [facility] [place] [facility] [address] [id number] [address] [place] [address], [place] [address] Oct, [facility] [place] [facility] [address] [id number] [address] [place] [address], [place] [address] Oct, [facility] [place] [facility] [address] [id number] [address] [place] [address], [place] [address] Oct, [facility] [place] [facility] [address] [id number] [address] [place] [address], [place] [address] Oct, [facility] [place] [facility] [address] [id number] [address] [place] [address], [place] [address] Sep, [facility] [place] [facility] [address] [id number] [address] [place] [address], [place] [address] Sep, [facility] [place] [facility] [address] [id number] [address] [place] [address], [place] [address] Sep, [facility] [address] [id number] [address] [place] [address] Sep, [facility] [address] [id number] [address] [place] [address], [place] [address] Aug, [facility] [address] [id number] [address] [place] [address], [place] [address] Aug, [facility] [address] [id number] [address] [place] [address], [place] [address] Aug, [facility] [address] [id number] [address] [place] [address], [place] [address] Aug, [facility] [address] [id number] [address] [place] [address], [place] [address] July, [facility] [address] [id number] [address] [place] [address], [place] [address] July, [facility] [address] [id number] [address] [place] [address], [place] [address] July, [facility] [address] [id number] [address] [place] [address], [place] [address] July, [facility] [address] [id number] [address] [place] [address], [place] [address] July, [facility] [address] [id number] [address] [place] [address], [place] [address] July, [facility] [place] [address] [id number] [address] [place] [address], [place] [address] Jun, [facility] [place] [address] [id number] [address] [place] [address], [place] [address] Jun, [facility] [place] [facility] [address] [id number] [address] [place] [address], [place] [address] Jun, [facility] [place] [facility] [address] [id number] [address] [place] [address], [place] [address] Jun, [facility] [address] [id number] [address] [place] [address] 14 Jun, 2013 [facility] [address] [id number] [address] [place] [address], [place] [address] 14 Jun, 2013 [facility] [address] [id number] [address] [place] [address], [place] [address] 14 Jun, 2013 [facility] [address] [id number] [address] [place] [address], [place] [address] 14 Jun, 2013 [facility] [address] [id number] [address] [place] [address], [place] [address] 19 May, 2013 [facility] [address] [id number] [address] [place] [address], [place] [address] 19 May, 2013 [facility] [address] [id number] [address] [place] [address], [place] [address] 18 May, 2013 [facility] [address] [id number] [address] [place] [address], [place] [address] Apr, [facility] [address] [id number] [address] [place] [address], [place] [address] Apr, [facility] [address] [id number] [address] [place] [address], [place] [address] Apr, [facility] [address] [id number] [address] [place] [address], [place] [address] Apr, [facility] [address] [id number] [address] [place] [address], [place] [address] Mar, [facility] [address] [id number] [address] [place] [address], [place] [address] Mar, [facility] [address] [id number] [address] [place] [address], [place] [address] Mar, [facility] [address] [id number] [address] [place] [address], [place] [address] Mar, [facility] [address] [id number] [address] [place] [address], [place] [address] Mar, [facility] [address] [id number] [address] [place] [address], [place] [address] Mar, [facility] [address] [id number] [address] [place] [address], [place] [address] Feb, [facility] [address] [id number] [address] [place] [address], [place] [address] Feb, [facility] [address] [id number] [address] [place] [address], [place] [address] Jan, [facility] [address] [id number] [address] [place] [address], [place] [address] Jan, [facility] [address] [id number] [address] [place] [address], [place] [address] Jan, [facility] [address] [id number] [address] [place] [address], [place] [address] Jan, [facility] [address] [id number] [address] [place] [address], [place] [address] Jan, [facility] [address] [id number] [address] [place] [address], [place] [address] Jan, [facility] [address] [id number] [address] [place] [address], [place] [address] Jan, [facility] [address] [id number] [address] [place] [address], [place] [address] Dec, [facility] [address] [id number] [address] [place] [address], [place] [address] Dec, [facility] [address] [id number] [address] [place] [address], [place] [address] Nov, [facility] [address] [id number] [address] [place] [address], [place] [address] 26 Nov, 2012 [facility] [address] [id number] [address] [place] [address], [place] [address] 11 Nov, 2012 [facility] [address] [id number] [address] [place] [address] [place] [address] Oct, [facility] [address] [id number] [address] [place] [address], [place] [address] Oct, [facility] [address] [id number] [address] [place] [address], [place] [address] Oct, [facility] [address] [id number] [address] [place] [address], [place] [address] Oct, [facility] [address] [id number] [address] [place] [address], [place] [address] Sep, [facility] [address] [id number] [address] [place] [address], [place] [address] Sep, [facility] [address] [id number] [address] [place] [address], [place] [address] Aug, [facility] [address] [id number] [address] [place] [address], [place] [address] Aug, [facility] [address] [id number] [address] [place] [address], [place] [address] Aug, [facility] [address] [id number] [address] [place] [address], [place] [address] Aug, [facility] [address] [id number] [address] [place] [address], [place] [address] July, [facility] [address] [id number] [address] [place] [address], [place] [address] July, [facility] [address] [id number] [address] [place] [address], [place] [address] July, [facility] [address] [id number] [address] [place] [address], [place] [address] July, [facility] [address] [id number] [address] [place] [address], [place] [address] Jun, [facility] [address] [id number] [address] [place] [address], [place] [address] Jun, [facility] [address] [facility] [id number] [address] [place] [address] Feb, [facility] [address] [facility] [id number] [address] [place] [address] Feb, [facility] [address] [facility] [id number] [address] [place] [address] Mar, IMMUNIZATIONS No Known Immunizations SOCIAL HISTORY Never Assessed REASON FOR VISIT EMR-[facility] [place] PLAN OF CARE [...]
--- OUTSIDE RECORDS SUMMARY | 2019-08-16 14:17 | XMS REPORT ---
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 Name Role Phone MIRELLA MRAIA Unavailable PROBLEMS Type Condition ICD9-CM Code OAV90-FV Code Onset Dates Condition S tatus SNOMED Code Problem Shoulder pain, right M25.511 Active 77855579 Problem Diabetes type 2, uncontrolled E11.65 Active 079736149 Problem Hypertension, benign I10 Active 32688721 Problem Mood disorder F39 Active 415367 05 Problem Acquired hypothyroidism E03.9 Active 703691762 Problem Low back pain M54.5 Active 906095 005 Problem long-term current use of insulin Z79.4 Active 313890674 Problem Type 2 diabetes mellitus without complications E11 .9 Active 587308021 Problem Controlled type 2 diabetes m ellitus without complication, without long- term current use of insulin E11.9 Active 050232309 Problem Diabetes type 2, controlled E11.9 Ac tive 24949623 Problem Cervical radiculopathy M54.12 Active 05085808 Problem History of urethral stricture Z87.448 Active 623142921 ALLERGIES No Information ENCOUNTERS Encounter Location Date Diagnosis [id number] [place] [id number] [address] [place] [phone] Jan, [facility] [address] [facility] [id number] [address] [place] [phone] Dec, Diabetes type 2, uncontrolle d E11.65 [facility] [address] 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 [id number] [address] [place] [address] Dec, Type 2 diabetes mellitus wit hout complications E11.9 ; long-term current use of insulin Z79.4 and Cervicalgia M54.2 [facility] [address] [id number] [address] [place] [address] Dec, Controlled type 2 diabetes m ellitus without complication, without long-term current use of insulin E11.9 [facility] [address] [id number] [address] [place] [address] Nov, [place] [address] [id number] [address] [place] [phone] Oct, Diabetes type 2, uncontrolle d E11.65 [place] [address] [id number] [address] [place] [phone] Sep, Diabetes type 2, uncontrolle d E11.65 [place] [address] [id number] [address] [place] [address] Jun, Controlled type 2 diabetes m ellitus without complication, without long-term current use of insulin E11.9 [place] [address] [id number] [address] [place] [phone] May, [place] [address] [id number] [address] [place] [phone] 16 May, 2017 Radiculopathy of cervical re gion M54.12 [facility] [address] [id number] [address] [place] [phone] 14 May, 2017 Controlled type 2 diabetes m ellitus without complication, without long-term current use of insulin E11.9 [place] [address] [id number] [address] [place] [phone] May, [facility] [address] [id number] [address] [place] [address] May, Controlled type 2 diabetes m ellitus without complication, without long-term current use of insulin E11.9 [facility] [address] [id number] [address] [place] [address] May, Controlled type 2 diabetes m ellitus without complication, without long-term current use of insulin E11.9 [facility] [address] [id number] [address] [place] [phone] May, Controlled type 2 diabetes m ellitus without complication, without long-term current use of insulin E11.9 [facility] [address] [id number] [address] [place] [phone] Apr, [place] [address] [id number] [address] [place] [phone] Apr, Controlled type 2 diabetes m ellitus without complication, without long-term current use of insulin E11.9 [place] [address] [id number] [address] [place] [phone] Apr, [place] [address] [id number] [address] [place] [phone] Apr, Controlled type 2 diabetes m ellitus without complication, without long-term current use of insulin E11.9 [place] [address] [id number] [address] [place] [phone] Mar, [place] [address] [id number] [address] [place] [address] Mar, Radiculopathy of cervical re gion M54.12 [place] [address] [id number] [address] [place] [phone] Mar, Controlled type 2 diabetes m ellitus without complication, without long-term current use of insulin E11.9 [place] [address] [id number] [address] [place] [address] Feb, Cervical radiculopathy M54.1 2 ; Acute cystitis without hematuria N30.00 and History of urethral stricture Z87.448 [place] [address] [id number] [address] [place] [address] Feb, Controlled type 2 diabetes m ellitus without complication, without long-term current use of insulin E11.9 [place] [address] [id number] [address] [place] [address] Feb, [facility] [address] [id number] [address] [place] [address] Jan, Diabetes type 2, uncontrolle d E11.65 [facility] [address] [id number] [address] [place] [phone] Jan, [facility] [address] [id number] [address] [place] [phone] Jan, Controlled type 2 diabetes m ellitus without complication, without long-term current use of insulin E11.9 ; Chest wall pain R07.89 and Thoracic spine pain M54.6 [facility] [address] [id number] [address] [place] [phone] Dec, [facility] [address] [id number] [address] [place] [phone] Dec, [facility] [address] [id number] [address] [place] [address] Nov, [facility] [address] [id number] [address] [place] [phone] Nov, [facility] [address] [id number] [address] [place] [address] Nov, Trichomonas exposure Z20.2 [facility] [address] [id number] [address] [place] [phone] Oct, [facility] [address] [id number] [address] [place] [phone] Oct, [facility] [address] [id number] [address] [place] [phone] Oct, [facility] [address] [id number] [address] [place] [phone] Oct, [facility] [address] [id number] [address] [place] [phone] Sep, [facility] [address] [id number] [address] [place] [address], [place] [address] Sep, [facility] [address] [id number] [address] [place] [address], [place] [address] Aug, [facility] [address] [id number] [address] [place] [address], [place] [address] Aug, [facility] [address] [id number] [address] [place] [address], [place] [address] Aug, [facility] [address] [id number] [address] [place] [address], [place] [address] Aug, [facility] [address] [id number] [address] [place] [address], [place] [address] July, Diabetes type 2, controlled E11.9 [facility] [address] [id number] [address] [place] [address], [place] [address] July, [facility] [address] [id number] [address] [place] [address], [place] [address] July, [facility] [address] [id number] [address] [place] [address], [place] [address] July, [facility] [address] [id number] [address] [place] [address], [place] [address] July, [facility] [address] [id number] [address] [place] [address], [place] [address] Jun, [facility] [address] [id number] [address] [place] [address], [place] [address] Jun, [facility] [address] [id number] [address] [place] [address], [place] [address] 16 May, 2016 [facility] [address] [id number] [address] [place] [address], [place] [address] 15 May, 2016 [facility] [address] [id number] [address] [place] [address], [place] [address] 09 May, 2016 [facility] [address] [id number] [address] [place] [address], [place] [address] May, Controlled type 2 diabetes m erika without complication, without long-term current use of insulin E11.9 [facility] [address] [id number] [address] [place] [address] Apr, [facility] [address] [id number] [address] [place] [phone] Apr, [facility] [address] [id number] [address] [place] [phone] Mar, [facility] [address] [id number] [address] [place] [address] Mar, [facility] [address] [id number] [address] [place] [phone] Feb, [facility] [address] [id number] [address] [place] [phone] Feb, [facility] [address] [id number] [address] [place] [phone] Jan, [facility] [address] [id number] [address] [place] [phone] Jan, [facility] [address] [id number] [address] [place] [phone] Jan, [facility] [address] [id number] [address] [place] [phone] Dec, [facility] [address] [id number] [address] [place] [phone] Dec, [facility] [address] [id number] [address] [place] [address] Dec, [facility] [address] [id number] [address] [place] [phone] 29 Nov, 2015 Diabetes type 2, uncontrolle d E11.65 [facility] [address] [id number] [address] [place] [id number] 14 Nov, 2015 [facility] [address] [id number] [address] [place] [phone] Nov, [facility] [address] [id number] [address] [place] [address] Oct, [facility] [address] [id number] [address] [place] [phone] Oct, [facility] [address] [id number] [address] [place] [address] Sep, Controlled type 2 diabetes m erika without complication, without long-term current use of insulin E11.9 [facility] [address] [id number] [address] [place] [address] Sep, [facility] [address] [id number] [address] [place] [address] Sep, [facility] [address] [id number] [address] [place] [phone] Sep, [facility] [address] [id number] [address] [place] [address] Sep, [facility] [address] [id number] [address] [place] [address] Aug, Diabetes type 2, controlled E11.9 ; Anxiety F41.9 ; Carpal tunnel syndrome, left upper limb G56.02 and Carpal tunnel syndrome, right upper limb G56.01 [facility] [address] [id number] [address] [place] [address] Aug, Urethritis N34.2 [facility] [address] [id number] [address] [place] [phone] Aug, [facility] [address] [facility] [id number] [address] [place] [id number] July, Genital warts A63.0 [facility] [address] [id number] [address] [place] [phone] July, [facility] [address] [facility] [id number] [address] [place] [phone] July, Genital warts A63.0 [facility] [address] [id number] [address] [place] [address] July, Anxiety F41.9 [facility] [address] [id number] [address] [place] [phone] Jun, Genital warts A63.0 [facility] [address] [id number] [address] [place] [address] Jun, Anxiety F41.9 [facility] [address] [id number] [address] [place] [phone] May, Genital warts A63.0 and Diab etes type 2, uncontrolled E11.65 [facility] [address] [id number] [address] [place] [address] May, [facility] [address] [id number] [address] [place] [id number] May, [facility] [address] [id number] [address] [place] [phone] Apr, [facility] [address] [id number] [address] [place] [phone] Apr, [facility] [address] [id number] [address] [place] [address] Apr, Diabetes type 2, controlled E11.9 [facility] [address] [id number] [address] [place] [phone] Apr, Genital warts A63.0 [facility] [address] [id number] [address] [place] [phone] Apr, [facility] [address] [id number] [address] [place] [phone] Apr, Diabetes type 2, uncontrolle d E11.65 and Genital warts A63.0 [facility] [address] [id number] [address] [place] [address] Apr, [facility] [address] [facility] [id number] [address] [place] [phone] Mar, [facility] [address] [facility] [id number] [address] [place] [address] Mar, [facility] [address] [place] [id number] [address] [place] [address] Mar, Family history of diabetes m ellitus V18.0 and Weight loss R63.4 [facility] [address] [facility] [id number] [address] [place] [phone] Mar, Genital warts A63.0 and Fami ly history of diabetes mellitus V18.0 [facility] [address] [facility] [id number] [address] [place] [phone] Feb, [facility] [address] [address] Jan, [facility] [address] [place] [id number] [address] [place] [address] Jan, Perianal venereal warts A63. 0 [facility] [address] [place] [id number] [address] [place] [address] Jan, Urethritis N34.2 and Anxiety F41.9 [facility] [address] [place] [id number] [address] [place] [address] Jan, [facility] [address] [place] [id number] [address] [place] [address] Jan, Urinary tract infection, sit e unspecified N39.0 [facility] [address] [facility] [id number] [address] [place] [phone] Jan, [facility] [address] [place] [id number] [address] [place] [address] Dec, [facility] [address] [place] [id number] [address] [place] [address] Dec, HPV (human papilloma virus) anogenital infection A63.0 ; Anxiety F41.9 and Gastroesophageal reflux disease without esophagitis K21.9 [place] [address] [address] Sep, Blood in stool 578.1 [place] [address] [phone] Aug, Blood in stool 578.1 [place] [address] [address] Aug, Anxiety 300.00 and Blood in stool 578.1 [place] [address] [address] July, [place] [address] [address] July, Family history of diabetes m ellitus V18.[address] [phone] July, Family history of diabetes m ellitus V18.0 ; Family history of thyroid disease V18.19 ; Polyuria 788.42 ; Polydipsia 783.5 ; Alopecia 704.00 and Fatigue 780.79 [place] [address] [address] Jun, [address] [address] Jun, [place] [address] [address] Mar, [place] [address] [id number] Mar, [place] [address] [address] Mar, [place] [address] [address] Mar, [facility] [address] [id number] [address] [place] [address], [place] [address] Mar, [facility] [address] [id number] [address] [place] [address], [place] [address] Mar, [facility] [address] [id number] [address] [place] [address], [place] [address] Mar, [facility] [address] [id number] [address] [place] [address], [place] [address] Mar, [facility] [address] [id number] [address] [place] [address], [place] [address] Mar, [facility] [address] [id number] [address] [place] [address], [place] [address] Mar, [facility] [address] [id number] [address] [place] [address], [place] [address] Feb, [facility] [address] [id number] [address] [place] [address], [place] [address] Feb, [facility] [address] [id number] [address] [place] [address], [place] [address] Jan, [facility] [address] [id number] [address] [place] [address], [place] [address] Jan, [facility] [address] [id number] [address] [place] [address], [place] [address] Jan, [facility] [address] [id number] [address] [place] [address], [place] [address] Jan, [facility] [address] [id number] [address] [place] [address], [place] [address] Dec, [facility] [address] [id number] [address] [place] [address], [place] [address] Dec, [facility] [address] [id number] [address] [place] [address], [place] [address] Nov, [facility] [address] [id number] [address] [place] [address], [place] [address] Nov, [facility] [address] [id number] [facility] [place] [address] Oct, [facility] [address] [id number] [facility] [place] [address] Oct, [facility] [address] [id number] [address] [place] [address], [place] [address] Oct, [facility] [address] [id number] [address] [place] [address], [place] [address] Oct, [facility] [address] [id number] [address] [place] [address], [place] [address] Oct, [facility] [address] [id number] [address] [place] [address], [place] [address] Oct, [facility] [address] [id number] [address] [place] [address], [place] [address] Oct, [facility] [address] [id number] [address] [place] [address], [place] [address] Oct, [facility] [address] [id number] [address] [place] [address], [place] [address] Sep, [facility] [address] [id number] [address] [place] [address], [place] [address] Sep, [facility] [address] [id number] [address] [place] [address], [place] [address] Sep, [facility] [address] [id number] [address] [place] [address], [place] [address] Sep, [facility] [address] [id number] [address] [place] [address], [place] [address] Aug, [facility] [address] [id number] [address] [place] [address], [place] [address] Aug, [facility] [address] [id number] [address] [place] [address], [place] [address] Aug, [facility] [address] [id number] [address] [place] [address], [place] [address] Aug, [facility] [address] [id number] [address] [place] [address], [place] [address] July, [facility] [address] [id number] [address] [place] [address], [place] [address] July, [facility] [address] [id number] [address] [place] [address], [place] [address] July, [facility] [address] [id number] [address] [place] [address], [place] [address] July, [facility] [address] [id number] [address] [place] [address], [place] [address] July, [facility] [address] [id number] [address] [place] [address], [place] [address] July, [facility] [address] [id number] [address] [place] [address], [place] [address] Jun, [facility] [address] [id number] [address] [place] [address], [place] [address] Jun, [facility] [address] [id number] [address] [place] [address], [place] [address] Jun, [facility] [address] [id number] [address] [place] [address], [place] [address] 15 Jun, 2013 [facility] [address] [id number] [address] [place] [address], [place] [address] Jun, [facility] [address] [id number] [address] [place] [address], [place] [address] Jun, [facility] [address] [id number] [address] [place] [address], [place] [address] Jun, [facility] [address] [id number] [address] [place] [address], [place] [address] Jun, [facility] [address] [id number] [address] [place] [address], [place] [address] May, [facility] [address] [id number] [address] [place] [address], [place] [address] May, [facility] [address] [id number] [address] [place] [address], [place] [address] May, [facility] [address] [id number] [address] [place] [address], [place] [address] Apr, [facility] [address] [id number] [address] [place] [address], [place] [address] Apr, [facility] [address] [id number] [address] [place] [address], [place] [address] Apr, [facility] [address] [id number] [address] [place] [address], [place] [address] Apr, [facility] [address] [id number] [address] [place] [address], [place] [address] Mar, [facility] [address] [id number] [address] [place] [address], [place] [address] Mar, [facility] [address] [id number] [address] [place] [address], [place] [address] Mar, [facility] [address] [id number] [address] [place] [address], [place] [address] Mar, [facility] [address] [id number] [address] [place] [address], [place] [address] Mar, [facility] [address] [id number] [address] [place] [address], [place] [address] Mar, [facility] [address] [id number] [address] [place] [address], [place] [address] Feb, [facility] [facility] [address] [id number] [address] [place] [address], [place] [address] Feb, [facility] [address] [id number] [address] [place] [address], [place] [address] Jan, [facility] [address] [id number] [address] [place] [address], [place] [address] Jan, [facility] [address] [id number] [address] [place] [address], [place] [address] Jan, [facility] [address] [id number] [address] [place] [address], [place] [address] Jan, [facility] [address] [id number] [address] [place] [address], [place] [address] Jan, [facility] [address] [id number] [address] [place] [address], [place] [address] Jan, [facility] [address] [id number] [address] [place] [address], [place] [address] Jan, [facility] [address] [id number] [address] [place] [address], [place] [address] Dec, [facility] [address] [id number] [address] [place] [address], [place] [address] Dec, [facility] [address] [id number] [address] [place] [address], [place] [address] Nov, [facility] [address] [id number] [address] [place] [address], [place] [address] Nov, [facility] [address] [id number] [address] [place] [address], [place] [address] Nov, [facility] [address] [id number] [address] [place] [address], [place] [address] Oct, [facility] [address] [id number] [address] [place] [address], [place] [address] Oct, [facility] [address] [id number] [address] [place] [address], [place] [address] Oct, [facility] [address] [id number] [address] [place] [address], [place] [address] Oct, [facility] [address] [id number] [address] [place] [address], [place] [address] Sep, [facility] [address] [id number] [address] [place] [id number] Sep, [facility] [address] [id number] [address] [place] [phone] Aug, [facility] [address] [id number] [address] [place] [phone] Aug, [facility] [address] [id number] [address] [place] [phone] Aug, [facility] [address] [id number] [address] [place] [phone] Aug, [facility] [address] [id number] [address] [place] [phone] July, [facility] [address] [id number] [address] [place] [phone] July, [facility] [address] [id number] [address] [place] [phone] July, [facility] [address] [id number] [address] [place] [phone] July, [facility] [address] [id number] [address] [place] [phone] Jun, [facility] [address] [id number] [address] [place] [phone] Jun, [facility] [address] [id number] [address] [place] [phone] Feb, [facility] [address] [id number] [address] [place] [phone] Feb, [facility] [address] [id number] [address] [place] [phone] Mar, IMMUNIZATIONS No Known Immunizations SOCIAL HISTORY Never Assessed REASON FOR VISIT Refill request PLAN OF CARE VITAL SIGNS MEDICATIONS Medication Instructions Dosage Frequency Start Date End Date Duration S brady Pantoprazole Sodium 40 MG TAKE ONE TABLET BY MOUTH ONCE DAILY 30 Active RESULTS No Results PROCEDURES No [...]
--- OUTSIDE RECORDS SUMMARY | 2019-08-16 14:18 | XMS REPORT ---
Author Author Joseph MARIA Organization [facility] Address [address] [place] [address] Care Team Providers Care Bottoming Room Inspector Name Role Phone MIRELLA MARIA Unavailable PROBLEMS Type Condition ICD9-CM Code OEF92-EA Code Onset Dates Condition S tatus SNOMED Code Problem Mood disorder F39 Active 909772 05 Problem Shoulder pain, right M25.511 Active 38313460 Problem Acquired hypothyroidism E03.9 Active 025706410 Problem Low back pain M54.5 Active 733676 005 Problem Cervical radiculopathy M54.12 Active 05385405 Problem History of urethral stricture Z87.448 Active 037078845 Problem Diabetes type 2, uncontrolled E11.65 Active 408932051 Problem Hypertension, benign I10 Active 83134555 Problem Controlled type 2 diabetes m ellitus without complication, without long- term current use of insulin E11.9 Active 817709229 Problem Diabetes type 2, controlled E11.9 Ac tive 62817760 ALLERGIES No Information ENCOUNTERS Encounter Location Date Diagnosis [place] [address] [address] [facility] [id number] [address] [place] [address] Oct, [facility] [address] [facility] [id number] [address] [place] [address] Sep, Diabetes type 2, uncontrolle d E11.65 [facility] [address] [facility] [id number] [address] [place] [address] Jun, Controlled type 2 diabetes m ellitus without complication, without long-term current use of insulin E11.9 [facility] [address] [facility] [id number] [address] [place] [address] May, [place] [address] [facility] [id number] [address] [place] [address] May, Radiculopathy of cervical re gion M54.12 [place] [address] [id number] [address] [place] [address] May, Controlled type 2 diabetes m ellitus without complication, without long-term current use of insulin E11.9 [facility] [address] [id number] [address] [place] [address] May, [facility] [address] [id number] [address] [place] [address] May, Controlled type 2 diabetes m ellitus without complication, without long-term current use of insulin E11.9 [facility] [address] [id number] [address] [place] [address] May, Controlled type 2 diabetes m ellitus without complication, without long-term current use of insulin E11.9 [facility] [address] [facility] [id number] [address] [place] [address] May, Controlled type 2 diabetes m ellitus without complication, without long-term current use of insulin E11.9 [facility] [address] [id number] [address] [place] [address] Apr, [facility] [address] [facility] [id number] [address] [place] [address] Apr, Controlled type 2 diabetes m ellitus without complication, without long-term current use of insulin E11.9 [facility] [address] [facility] [id number] [address] [place] [address] Apr, [facility] [address] [facility] [id number] [address] [place] [address] Apr, Controlled type 2 diabetes m ellitus without complication, without long-term current use of insulin E11.9 [facility] [address] [facility] [id number] [address] [place] [address] Mar, [facility] [address] [facility] [id number] [address] [place] [address] Mar, Radiculopathy of cervical re gion M54.12 [facility] [address] [id number] [address] [place] [address] Mar, Controlled type 2 diabetes m ellitus without complication, without long-term current use of insulin E11.9 [facility] [address] [facility] [id number] [address] [place] [address] Feb, Cervical radiculopathy M54.1 2 ; Acute cystitis without hematuria N30.00 and History of urethral stricture Z87.448 [place] [address] [address] [facility] [id number] [address] [place] [address] Feb, Controlled type 2 diabetes m ellitus without complication, without long-term current use of insulin E11.9 [place] [address] [address] [facility] [id number] [address] [place] [address] Feb, [place] [address] [address] [place] [id number] [address] [place] [address] 15 Jan, 2017 Diabetes type 2, uncontrolle d E11.65 [place] [address] [address] [facility] [id number] [address] [place] [address] Jan, [place] [address] [address] [facility] [id number] [address] [place] [address] Jan, Controlled type 2 diabetes m ellitus without complication, without long-term current use of insulin E11.9 ; Chest wall pain R07.89 and Thoracic spine pain M54.6 [place] [address] [address] [place] [id number] [address] [place] [address] Dec, [facility] [address] [facility] [id number] [address] [place] [address] Dec, [place] [address] [address] [place] [id number] [address] [place] [address] Nov, [place] [address] [address] [place] [id number] [address] [place] [address] Nov, [facility] [address] [facility] [id number] [address] [place] [address] 13 Nov, 2016 Trichomonas exposure Z20.2 [facility] [address] [id number] [address] [place] [address], [place] [address] Oct, [facility] [address] [id number] [address] [place] [address], [place] [address] Oct, [facility] [address] [id number] [address] [place] [address], [place] [address] Oct, [facility] [address] [id number] [address] [place] [address], [place] [address] Oct, [facility] [address] [id number] [address] [place] [address], [place] [address] Sep, [facility] [address] [id number] [address] [place] [address], [place] [address] Sep, [facility] [address] [id number] [address] [place] [address], [place] [address] Aug, [facility] [address] [id number] [address] [place] [address], [place] [address] Aug, [facility] [address] [id number] [address] [place] [address], [place] [address] Aug, [facility] [address] [id number] [address] [place] [address], [place] [address] Aug, [facility] [address] [id number] [address] [place] [address], [place] [address] July, Diabetes type 2, controlled E11.9 [facility] [address] [id number] [address] [place] [address], [place] [address] July, [facility] [address] [id number] [address] [place] [address], [place] [address] July, [facility] [address] [id number] [address] [place] [address], [place] [address] July, [facility] [address] [id number] [address] [place] [address], [place] [address] July, [facility] [address] [id number] [address] [place] [address] 13 Jun, 2016 [facility] [address] [id number] [address] [place] [address] Jun, [facility] [address] [id number] [address] [place] [address] 16 May, 2016 [facility] [address] [id number] [address] [place] [address] May, [facility] [address] [id number] [address] [place] [address] May, [facility] [address] [id number] [address] [place] [address] May, Controlled type 2 diabetes m ellitus without complication, without long-term current use of insulin E11.9 [facility] [address] [id number] [address] [place] [address] Apr, [facility] [address] [id number] [address] [place] [address] Apr, [facility] [address] [id number] [address] [place] [address] Mar, [facility] [address] [id number] [address] [place] [address] Mar, [facility] [address] [id number] [address] [place] [address] Feb, [facility] [address] [id number] [address] [place] [address] Feb, [facility] [address] [id number] [address] [place] [address] Jan, [facility] [address] [id number] [address] [place] [address] Jan, [facility] [address] [id number] [address] [place] [address] Jan, [facility] [address] [id number] [address] [place] [address] Dec, [facility] [address] [id number] [address] [place] [address] Dec, [facility] [address] [id number] [address] [place] [address] Dec, [facility] [address] [id number] [address] [place] [address] 29 Nov, 2015 Diabetes type 2, uncontrolle d E11.65 [facility] [address] [id number] [address] [place] [address] 14 Nov, 2015 [facility] [address] [id number] [address] [place] [address] Nov, [facility] [address] [id number] [address] [place] [address] Oct, [facility] [address] [id number] [address] [place] [address] Oct, [facility] [address] [id number] [address] [place] [address] Sep, Controlled type 2 diabetes m ellitus without complication, without long-term current use of insulin E11.9 [facility] [address] [id number] [address] [place] [address] Sep, [facility] [address] [id number] [address] [place] [address] Sep, [facility] [address] [id number] [address] [place] [address] Sep, [facility] [address] [id number] [address] [place] [address] Sep, [facility] [address] [id number] [address] [place] [address] Aug, Diabetes type 2, controlled E11.9 ; Anxiety F41.9 ; Carpal tunnel syndrome, left upper limb G56.02 and Carpal tunnel syndrome, right upper limb G56.01 [facility] [address] [id number] [address] [place] [address] 13 Aug, 2015 Urethritis N34.2 [facility] [address] [id number] [address] [place] [address] Aug, [facility] [address] [id number] [address] [place] [address] July, Genital warts A63.0 [facility] [address] [id number] [address] [place] [address] July, [facility] [address] [id number] [address] [place] [address] July, Genital warts A63.0 [facility] [address] [id number] [address] [place] [address] July, Anxiety F41.9 [facility] [address] [id number] [address] [place] [address] Jun, Genital warts A63.0 [facility] [address] [id number] [address] [place] [address] Jun, Anxiety F41.9 [facility] [address] [id number] [address] [place] [address] May, Genital warts A63.0 and Diab etes type 2, uncontrolled E11.65 [facility] [address] [id number] [address] [place] [address] May, [facility] [address] [id number] [address] [place] [address] May, [facility] [address] [id number] [address] [place] [address] Apr, [facility] [address] [id number] [address] [place] [address] Apr, [facility] [address] [id number] [address] [place] [address] Apr, Diabetes type 2, controlled E11.9 [facility] [address] [facility] [id number] [address] [place] [address] Apr, Genital warts A63.0 [facility] [address] [facility] [id number] [address] [place] [address] Apr, [facility] [address] [facility] [id number] [address] [place] [address] Apr, Diabetes type 2, uncontrolle d E11.65 and Genital warts A63.0 [facility] [address] [facility] [id number] [place] [address] Apr, [facility] [address] [facility] [id number] [address] [place] [address] Mar, [facility] [address] [address] Mar, [facility] [address] [place] [id number] [address] [place] [address] Mar, Family history of diabetes m ellitus V18.0 and Weight loss R63.4 [facility] [address] [place] [id number] [address] [place] [address] Mar, Genital warts A63.0 and Fami ly history of diabetes mellitus V18.0 [facility] [address] [place] [id number] [address] [place] [address] Feb, [facility] [address] [place] [id number] [address] [place] [address] Jan, [facility] [address] [place] [id number] [address] [place] [address] Jan, Perianal venereal warts A63. 0 [facility] [address] [place] [id number] [address] [place] [address] Jan, Urethritis N34.2 and Anxiety F41.9 [place] [address] [address] [place] [id number] [address] [place] [address] Jan, [place] [address] [address] Jan, Urinary tract infection, sit e unspecified N39.0 [place] [address] [address] Jan, [place] [address] [address] Dec, [place] [address] [address] Dec, HPV (human papilloma virus) anogenital infection A63.0 ; Anxiety F41.9 and Gastroesophageal reflux disease without esophagitis K21.9 [place] [address] [address] Sep, Blood in stool 578.1 [place] [address] [address] Aug, Blood in stool 578.1 [place] [address] [address] Aug, Anxiety 300.00 and Blood in stool 578.1 [place] [address] [address] [place] [id number] [address] [place] [address] July, [place] [address] [address] July, Family history of diabetes m ellitus V18.0 [place] [address] [address] July, Family history of diabetes m ellitus V18.0 ; Family history of thyroid disease V18.19 ; Polyuria 788.42 ; Polydipsia 783.5 ; Alopecia 704.00 and Fatigue 780.79 [place] [address] [address] [place] [id number] [address] [place] [address] 14 Jun, 2014 [facility] [address] [id number] [address] [place] [address], [place] [address] Jun, [facility] [address] [id number] [address] [place] [address], [place] [address] Mar, [facility] [address] [id number] [address] [place] [address], [place] [address] Mar, [facility] [address] [id number] [address] [place] [address], [place] [address] Mar, [facility] [address] [id number] [address] [place] [address], [place] [address] Mar, [facility] [address] [id number] [address] [place] [address], [place] [address] Mar, [facility] [address] [id number] [address] [place] [address], [place] [address] Mar, [facility] [address] [id number] [address] [place] [address], [place] [address] Mar, [facility] [address] [id number] [address] [place] [address], [place] [address] Mar, [facility] [address] [id number] [address] [place] [address], [place] [address] Mar, [facility] [address] [id number] [address] [place] [address], [place] [address] Mar, [facility] [address] [id number] [address] [place] [address], [place] [address] Feb, [facility] [address] [id number] [address] [place] [address], [place] [address] Feb, [facility] [address] [id number] [address] [place] [address], [place] [address] Jan, [facility] [address] [id number] [address] [place] [address], [place] [address] Jan, [facility] [address] [id number] [address] [place] [address], [place] [address] Jan, [facility] [address] [id number] [address] [place] [address], [place] [address] Jan, [facility] [address] [id number] [address] [place] [address], [place] [address] Dec, [facility] [address] [id number] [address] [place] [address], [place] [address] Dec, [facility] [address] [id number] [address] [place] [address], [place] [address] Nov, [facility] [address] [id number] [address] [place] [address], [place] [address] Nov, [facility] [address] [id number] [address] [place] [address], [place] [address] Oct, [facility] [address] [id number] [address] [place] [address], [place] [address] Oct, [facility] [address] [id number] [address] [place] [address], [place] [address] Oct, [facility] [address] [id number] [address] [place] [address], [place] [address] Oct, [facility] [address] [id number] [address] [place] [address], [place] [address] Oct, [facility] [address] [id number] [address] [place] [address], [place] [address] Oct, [facility] [address] [id number] [address] [place] [address], [place] [address] Oct, [facility] [address] [id number] [address] [place] [address], [place] [address] Oct, [facility] [address] [id number] [address] [place] [address], [place] [address] Sep, [facility] [address] [id number] [address] [place] [address], [place] [address] Sep, [facility] [address] [id number] [facility] [place] [address] Sep, [facility] [address] [id number] [address] [place] [address], [place] [address] Sep, [facility] [address] [id number] [address] [place] [address], [place] [address] Aug, [facility] [address] [id number] [address] [place] [address], [place] [address] Aug, [facility] [address] [id number] [address] [place] [address], [place] [address] Aug, [facility] [address] [id number] [address] [place] [address], [place] [address] Aug, [facility] [address] [id number] [address] [place] [address], [place] [address] July, [facility] [address] [id number] [address] [place] [address], [place] [address] July, [facility] [address] [id number] [address] [place] [address], [place] [address] July, [facility] [address] [id number] [address] [place] [address], [place] [address] July, [facility] [address] [id number] [address] [place] [address], [place] [address] July, [facility] [address] [id number] [address] [place] [address], [place] [address] July, [facility] [address] [id number] [address] [place] [address], [place] [address] Jun, [facility] [address] [id number] [address] [place] [address], [place] [address] Jun, [facility] [address] [id number] [address] [place] [address], [place] [address] Jun, [facility] [address] [id number] [address] [place] [address], [place] [address] 15 Jun, 2013 [facility] [address] [id number] [address] [place] [address], [place] [address] 14 Jun, 2013 [facility] [address] [id number] [address] [place] [address], [place] [address] 14 Jun, 2013 [facility] [address] [id number] [address] [place] [address], [place] [address] 14 Jun, 2013 [facility] [address] [id number] [address] [place] [address], [place] [address] 14 Jun, 2013 [facility] [address] [id number] [address] [place] [address], [place] [address] 19 May, 2013 [facility] [address] [id number] [address] [place] [address], [place] [address] 19 May, 2013 [facility] [address] [id number] [address] [place] [address], [place] [address] 18 May, 2013 [facility] [address] [id number] [address] [place] [address], [place] [address] Apr, [facility] [address] [id number] [address] [place] [address], [place] [address] Apr, [facility] [address] [id number] [address] [place] [address], [place] [address] Apr, [facility] [address] [id number] [address] [place] [address], [place] [address] Apr, [facility] [address] [id number] [address] [place] [address], [place] [address] Mar, [facility] [address] [id number] [address] [place] [address], [place] [address] Mar, [facility] [address] [id number] [address] [place] [address], [place] [address] Mar, [facility] [address] [id number] [address] [place] [address], [place] [address] Mar, [facility] [address] [id number] [address] [place] [address], [place] [address] Mar, [facility] [address] [id number] [address] [place] [address], [place] [address] Mar, [facility] [address] [id number] [address] [place] [address], [place] [address] Feb, [facility] [address] [id number] [address] [place] [address], [place] [address] Feb, [facility] [address] [id number] [address] [place] [address], [place] [address] Jan, [facility] [address] [id number] [address] [place] [address], [place] [address] Jan, [facility] [address] [address] [id number] [address] [place] [address], [place] [address] Jan, [facility] [address] [id number] [address] [place] [address], [place] [address] Jan, [facility] [address] [id number] [address] [place] [address], [place] [address] Jan, [facility] [address] [id number] [address] [place] [address], [place] [address] Jan, [facility] [address] [id number] [address] [place] [address], [place] [address] Jan, [facility] [address] [id number] [address] [place] [address], [place] [address] Dec, [facility] [address] [id number] [address] [place] [address], [place] [address] Dec, [facility] [address] [id number] [address] [place] [address], [place] [address] Nov, [facility] [address] [id number] [address] [place] [address], [place] [address] Nov, [facility] [address] [id number] [address] [place] [address] Nov, [facility] [address] [id number] [address] [place] [address], [place] [address] Oct, [facility] [address] [id number] [address] [place] [address], [place] [address] Oct, [facility] [address] [id number] [address] [place] [address], [place] [address] Oct, [facility] [address] [id number] [address] [place] [address], [place] [address] Oct, [facility] [address] [id number] [address] [place] [address], [place] [address] Sep, [facility] [address] [id number] [address] [place] [address], [place] [address] Sep, [facility] [address] [id number] [address] [place] [address], [place] [address] Aug, [facility] [address] [id number] [address] [place] [address], [place] [address] Aug, [facility] [address] [id number] [address] [place] [address], [place] [address] Aug, [facility] [address] [id number] [address] [place] [address], [place] [address] Aug, [facility] [address] [id number] [address] [place] [address], [place] [address] July, [facility] [address] [id number] [address] [place] [address], [place] [address] July, [facility] [address] [id number] [address] [place] [address], [place] [address] July, [facility] [address] [id number] [address] [place] [address], [place] [address] July, [facility] [address] [id number] [address] [place] [address], [place] [address] Jun, [facility] [address] [id number] [address] [place] [address] 15 Jun, 2012 [facility] [address] [facility] [id number] [address] [place] [address] Feb, [facility] [address] [facility] [id number] [address] [place] [address] Feb, [facility] [address] [facility] [id number] [address] [place] [address] Mar, IMMUNIZATIONS No Known Immunizations SOCIAL HISTORY Never Assessed REASON FOR VISIT NARC VIOLATION PLAN OF CARE VITAL SIGNS MEDICATIONS Medication Instructions Dosage Frequency Start Date End Date Duration S tatus Actos 45 MG Orally Once a day 1 tablet 24h Jun, 30 d ay(s) Active RESULTS No Results PROCEDURES No Known [...]
--- OUTSIDE RECORDS SUMMARY | 2019-08-16 14:18 | XMS REPORT ---
Author Author Joseph LACKEY Organization [facility] [place] Address [address] [place] [address] Care Team Providers Care Crime Scene Examiner Name Role Phone JODY LACKEY Unavailable PROBLEMS Type Condition ICD9-CM Code [id number] Code Onset Dates Condition S tatus SNOMED Code Problem Mood disorder F39 Active 190345 05 Problem Shoulder pain, right M25.511 Active 27775843 Problem Acquired hypothyroidism E03.9 Active 631100516 Problem Low back pain M54.5 Active 274446 005 Problem Cervical radiculopathy M54.12 Active 34989065 Problem History of urethral stricture Z87.448 Active 453479759 Problem Diabetes type 2, uncontrolled E11.65 Active 914402542 Problem Hypertension, benign I10 Active 70124256 Problem Controlled type 2 diabetes m ellitus without complication, without long- term current use of insulin E11.9 Active 862191355 Problem Diabetes type 2, controlled E11.9 Ac tive [id number] ALLERGIES No Known Allergies ENCOUNTERS Encounter Location Date Diagnosis [place] [address] [facility] [id number] [address] [place] [id number] Oct, Diabetes type 2, uncontrolle d E11.65 [facility] [place] [address] [facility] [id number] [address] [place] [id number] Sep, Diabetes type 2, uncontrolle d E11.65 [facility] [place] [address] [facility] [id number] [address] [place] [id number] Jun, Controlled type 2 diabetes m ellitus without complication, without long-term current use of insulin E11.9 [facility] [place] [address] [facility] [id number] [address] [place] [id number] May, [facility] [place] [address] [facility] [id number] [address] [place] [id number] May, Radiculopathy of cervical re gion M54.12 [facility] [place] [address] [id number] [address] [place] [id number] 14 May, 2017 Controlled type 2 diabetes m ellitus without complication, without long-term current use of insulin E11.9 [facility] [place] [address] [id number] [address] [place] [id number] May, [facility] [place] [address] [id number] [address] [place] [id number] May, Controlled type 2 diabetes m ellitus without complication, without long-term current use of insulin E11.9 [facility] [place] [address] [id number] [address] [place] [id number] May, Controlled type 2 diabetes m ellitus without complication, without long-term current use of insulin E11.9 [facility] [place] [address] [id number] [address] [place] [id number] May, Controlled type 2 diabetes m ellitus without complication, without long-term current use of insulin E11.9 [facility] [place] [address] [id number] [address] [place] [id number] Apr, [facility] [place] [address] [id number] [address] [place] [id number] Apr, Controlled type 2 diabetes m ellitus without complication, without long-term current use of insulin E11.9 [facility] [place] [address] [id number] [address] [place] [id number] Apr, [facility] [place] [address] [id number] [address] [place] [id number] Apr, Controlled type 2 diabetes m ellitus without complication, without long-term current use of insulin E11.9 [facility] [place] [address] [id number] [address] [place] [id number] Mar, [facility] [place] [address] [id number] [address] [place] [id number] Mar, Radiculopathy of cervical re gion M54.12 [facility] [place] [address] [id number] [address] [place] [id number] Mar, Controlled type 2 diabetes m ellitus without complication, without long-term current use of insulin E11.9 [facility] [place] [address] [id number] [address] [place] [id number] Feb, Cervical radiculopathy M54.1 2 ; Acute cystitis without hematuria N30.00 and History of urethral stricture Z87.448 [facility] [place] [address] [id number] [address] [place] [id number] Feb, Controlled type 2 diabetes m ellitus without complication, without long-term current use of insulin E11.9 [facility] [place] [address] [id number] [address] [place] [id number] Feb, [facility] [place] [address] [id number] [address] [place] [id number] 15 Jan, 2017 Diabetes type 2, uncontrolle d E11.65 [facility] [place] [address] [id number] [address] [place] [phone] Jan, [facility] [place] [address] [id number] [address] [place] [id number] Jan, Controlled type 2 diabetes m yaraitus without complication, without long-term current use of insulin E11.9 ; Chest wall pain R07.89 and Thoracic spine pain M54.6 [facility] [place] [address] [id number] [address] [place] [id number] Dec, [facility] [place] [address] [id number] [address] [place] [phone] Dec, [facility] [place] [address] [id number] [address] [place] [id number] Nov, [facility] [place] [address] [id number] [address] [place] [id number] Nov, [facility] [address] [id number] [address] [place] [phone] Nov, Trichomonas exposure Z20.2 [facility] [address] [id number] [address] [place] [id number] Oct, [facility] [address] [id number] [address] [place] [id number] Oct, [facility] [address] [id number] [address] [place] [phone] Oct, [facility] [address] [id number] [address] [place] [id number] Oct, [facility] [address] [id number] [address] [place] [phone] Sep, [facility] [address] [id number] [address] [place] [id number] Sep, [facility] [address] [id number] [address] [place] [id number] Aug, [facility] [address] [id number] [address] [place] [id number] Aug, [facility] [address] [id number] [address] [place] [id number] Aug, [facility] [place] [address] [id number] [address] [place] [id number] Aug, [facility] [place] [address] [id number] [address] [place] [id number] July, Diabetes type 2, controlled E11.9 [facility] [address] [id number] [address] [place] [id number] July, [facility] [address] [id number] [address] [place] [phone] July, [facility] [address] [id number] [address] [place] [id number] July, [facility] [place] [address] [id number] [address] [place] [id number] July, [facility] [place] [address] [id number] [address] [place] [address], [place] [address] Jun, [facility] [place] [address] [id number] [address] [place] [id number] Jun, [facility] [place] [address] [id number] [address] [place] [id number] May, [facility] [place] [address] [id number] [address] [place] [id number] May, [facility] [place] [address] [id number] [address] [place] [id number] May, [facility] [place] [address] [id number] [address] [place] [id number] May, Controlled type 2 diabetes m ellitus without complication, without long-term current use of insulin E11.9 [facility] [place] [address] [id number] [address] [place] [id number] Apr, [facility] [place] [address] [id number] [address] [place] [id number] Apr, [facility] [place] [address] [id number] [address] [place] [id number] Mar, [facility] [place] [address] [id number] [address] [place] [id number] Mar, [facility] [place] [address] [id number] [address] [place] [id number] Feb, [facility] [place] [address] [id number] [address] [place] [phone] Feb, [facility] [place] [address] [id number] [address] [place] [id number] Jan, [facility] [place] [address] [id number] [address] [place] [phone] Jan, [facility] [place] [address] [id number] [address] [place] [id number] Jan, [facility] [place] [address] [id number] [address] [place] [id number] Dec, [facility] [place] [address] [id number] [address] [place] [id number] Dec, [facility] [place] [address] [id number] [address] [place] [phone] Dec, [facility] [place] [address] [id number] [address] [place] [id number] 29 Nov, 2015 Diabetes type 2, uncontrolle d E11.65 [facility] [place] [address] [id number] [address] [place] [id number] 14 Nov, 2015 [facility] [place] [address] [id number] [address] [place] [id number] Nov, [facility] [place] [address] [id number] [address] [place] [id number] Oct, [facility] [place] [address] [id number] [address] [place] [id number] Oct, [facility] [place] [address] [id number] [address] [place] [id number] Sep, Controlled type 2 diabetes m ellitus without complication, without long-term current use of insulin E11.9 [facility] [place] [address] [id number] [address] [place] [id number] Sep, [facility] [place] [address] [id number] [address] [place] [id number] Sep, [facility] [place] [address] [id number] [address] [place] [phone] Sep, [facility] [place] [address] [id number] [address] [place] [id number] Sep, [facility] [place] [address] [id number] [address] [place] [id number] Aug, Diabetes type 2, controlled E11.9 ; Anxiety F41.9 ; Carpal tunnel syndrome, left upper limb G56.02 and Carpal tunnel syndrome, right upper limb G56.01 [facility] [place] [address] [id number] [address] [place] [id number] Aug, Urethritis N34.2 [facility] [place] [address] [id number] [address] [place] [id number] Aug, [facility] [place] [address] [id number] [address] [place] [id number] July, Genital warts A63.0 [facility] [place] [address] [id number] [address] [place] [phone] July, [facility] [place] [address] [facility] [id number] [address] [place] [id number] July, Genital warts A63.0 [facility] [place] [address] [facility] [id number] [address] [place] [id number] July, Anxiety F41.9 [facility] [place] [address] [id number] [address] [place] [id number] Jun, Genital warts A63.0 [facility] [place] [address] [facility] [id number] [address] [place] [id number] Jun, Anxiety F41.9 [facility] [place] [address] [facility] [id number] [address] [place] [id number] May, Genital warts A63.0 and Diab etes type 2, uncontrolled E11.65 [facility] [place] [address] [id number] [address] [place] [id number] May, [facility] [place] [address] [facility] [id number] [address] [place] [id number] May, [facility] [place] [address] [facility] [id number] [address] [place] [id number] Apr, [facility] [place] [address] [facility] [id number] [address] [place] [id number] Apr, [facility] [place] [address] [facility] [id number] [address] [place] [id number] Apr, Diabetes type 2, controlled E11.9 [facility] [place] [address] [facility] [id number] [address] [place] [id number] Apr, Genital warts A63.0 [facility] [place] [address] [facility] [id number] [address] [place] [id number] Apr, [facility] [place] [address] [facility] [id number] [address] [place] [id number] Apr, Diabetes type 2, uncontrolle d E11.65 and Genital warts A63.0 [facility] [place] [address] [facility] [id number] [address] [place] [id number] Apr, [facility] [place] [address] [facility] [id number] [address] [place] [id number] Mar, [facility] [place] [address] [facility] [id number] [address] [place] [id number] Mar, [facility] [place] [address] [facility] [id number] [address] [place] [id number] Mar, Family history of diabetes m ellitus V18.0 and Weight loss R63.4 [facility] [place] [address] [facility] [id number] [address] [place] [id number] Mar, Genital warts A63.0 and Fami ly history of diabetes mellitus V18.0 [facility] [place] [address] [facility] [id number] [address] [place] [id number] Feb, [facility] [place] [address] [place] [id number] [address] [place] [id number] Jan, [facility] [place] [address] [place] [id number] [address] [place] [id number] Jan, Perianal venereal warts A63. 0 [facility] [place] [address] [place] [id number] [address] [place] [id number] Jan, Urethritis N34.2 and Anxiety F41.9 [place] [address] [id number] Jan, [place] [address] [id number] Jan, Urinary tract infection, sit e unspecified N39.0 [place] [address] [id number] Jan, [place] [address] [place] [id number] [place] [id number] Dec, [place] [address] [id number] Dec, HPV (human papilloma virus) anogenital infection A63.0 ; Anxiety F41.9 and Gastroesophageal reflux disease without esophagitis K21.9 [place] [address] [address] Sep, Blood in stool 578.1 [place] [address] [id number] Aug, Blood in stool 578.1 [place] [address] [id number] Aug, Anxiety 300.00 and Blood in stool 578.1 [place] [address] [place] [id number] [address] [place] [id number] July, [place] [address] [address] [place] [id number] [address] [place] [id number] July, Family history of diabetes m ellitus V18.0 [place] [address] [id number] July, Family history of diabetes m ellitus V18.0 ; Family history of thyroid disease V18.19 ; Polyuria 788.42 ; Polydipsia 783.5 ; Alopecia 704.00 and Fatigue 780.79 [facility] [address] [id number] [address] [place] [address], [place] [address] 14 Jun, 2014 [facility] [address] [id number] [address] [place] [address], [place] [address] Jun, [facility] [address] [id number] [address] [place] [address], [place] [address] Mar, [facility] [address] [id number] [address] [place] [address], [place] [address] Mar, [facility] [address] [id number] [address] [place] [address], [place] [address] Mar, [facility] [address] [id number] [address] [place] [address], [place] [address] Mar, [facility] [address] [id number] [address] [place] [address], [place] [address] Mar, [facility] [address] [id number] [address] [place] [address], [place] [address] Mar, [facility] [address] [id number] [address] [place] [address], [place] [address] Mar, [facility] [address] [id number] [address] [place] [address], [place] [address] Mar, [facility] [address] [id number] [address] [place] [address], [place] [address] Mar, [facility] [address] [id number] [address] [place] [address], [place] [address] Mar, [facility] [address] [id number] [address] [place] [address], [place] [address] Feb, [facility] [address] [id number] [address] [place] [address], [place] [address] Feb, [facility] [address] [id number] [address] [place] [address], [place] [address] 05 Jan, 2014 [facility] [address] [id number] [address] [place] [address], [place] [address] Jan, [facility] [address] [id number] [address] [place] [address], [place] [address] Jan, [facility] [address] [id number] [address] [place] [address], [place] [address] Jan, [facility] [address] [id number] [address] [place] [address], [place] [address] Dec, [facility] [address] [id number] [address] [place] [address], [place] [address] Dec, [facility] [address] [id number] [address] [place] [address], [place] [address] Nov, [facility] [address] [id number] [address] [place] [address], [place] [address] Nov, [facility] [address] [id number] [address] [place] [address], [place] [address] Oct, [facility] [address] [id number] [address] [place] [address], [place] [address] Oct, [facility] [address] [id number] [address] [place] [address], [place] [address] Oct, [facility] [address] [id number] [address] [place] [address], [place] [address] Oct, [facility] [address] [id number] [address] [place] [address], [place] [address] Oct, [facility] [address] [id number] [address] [place] [address], [place] [address] Oct, [facility] [address] [id number] [address] [place] [address], [place] [address] Oct, [facility] [address] [id number] [address] [place] [address], [place] [address] Oct, [facility] [address] [id number] [address] [place] [address], [place] [address] Sep, [facility] [address] [id number] [address] [place] [address], [place] [address] 15 Sep, 2013 [facility] [address] [id number] [address] [place] [address], [place] [address] Sep, [facility] [address] [id number] [address] [place] [address], [place] [address] Sep, [facility] [address] [id number] [address] [place] [address], [place] [address] Aug, [facility] [address] [id number] [address] [place] [address], [place] [address] Aug, [facility] [address] [id number] [address] [place] [address], [place] [address] Aug, [facility] [address] [id number] [address] [place] [address], [place] [address] Aug, [facility] [address] [id number] [address] [place] [address], [place] [address] July, [facility] [address] [id number] [address] [place] [address], [place] [address] July, [facility] [address] [id number] [address] [place] [address], [place] [address] July, [facility] [address] [id number] [address] [place] [address], [place] [address] July, [facility] [address] [id number] [address] [place] [address], [place] [address] July, [facility] [address] [id number] [address] [place] [address], [place] [address] July, [facility] [address] [id number] [address] [place] [address], [place] [address] Jun, [facility] [address] [id number] [address] [place] [address], [place] [address] Jun, [facility] [address] [id number] [address] [place] [address], [place] [address] Jun, [facility] [address] [id number] [address] [place] [address], [place] [address] 15 Jun, 2013 [facility] [address] [id number] [address] [place] [address], [place] [address] 14 Jun, 2013 [facility] [address] [id number] [address] [place] [address], [place] [address] 14 Jun, 2013 [facility] [address] [id number] [address] [place] [address], [place] [address] 14 Jun, 2013 [facility] [address] [id number] [address] [place] [address], [place] [address] 14 Jun, 2013 [facility] [address] [id number] [address] [place] [address], [place] [address] 19 May, 2013 [facility] [address] [id number] [address] [place] [address], [place] [address] May, [facility] [address] [id number] [address] [place] [address], [place] [address] 18 May, 2013 [facility] [address] [id number] [address] [place] [address], [place] [address] Apr, [facility] [address] [id number] [address] [place] [address], [place] [address] Apr, [facility] [address] [id number] [address] [place] [address], [place] [address] Apr, [facility] [address] [id number] [address] [place] [address], [place] [address] Apr, [facility] [address] [id number] [address] [place] [address], [place] [address] Mar, [facility] [address] [id number] [address] [place] [address], [place] [address] Mar, [facility] [address] [id number] [address] [place] [address], [place] [address] Mar, [facility] [address] [id number] [address] [place] [address], [place] [address] Mar, [facility] [address] [id number] [address] [place] [address], [place] [address] Mar, [facility] [address] [id number] [address] [place] [address], [place] [address] Mar, [facility] [address] [id number] [address] [place] [address], [place] [address] Feb, [facility] [address] [id number] [address] [place] [address], [place] [address] Feb, [facility] [address] [id number] [address] [place] [address], [place] [address] Jan, [facility] [address] [id number] [address] [place] [address], [place] [address] Jan, [facility] [address] [id number] [address] [place] [address], [place] [address] Jan, [facility] [address] [id number] [address] [place] [address], [place] [address] Jan, [facility] [address] [id number] [address] [place] [address], [place] [address] Jan, [facility] [address] [id number] [address] [place] [address], [place] [address] Jan, [facility] [address] [id number] [address] [place] [address], [place] [address] Jan, [facility] [address] [id number] [address] [place] [address], [place] [address] Dec, [facility] [address] [id number] [address] [place] [address], [place] [address] Dec, [facility] [address] [id number] [address] [place] [address], [place] [address] Nov, [facility] [address] [id number] [address] [place] [address], [place] [address] Nov, [facility] [address] [id number] [address] [place] [address], [place] [address] Nov, [facility] [address] [id number] [address] [place] [address], [place] [address] Oct, [facility] [address] [id number] [address] [place] [address], [place] [address] Oct, [facility] [address] [id number] [address] [place] [address], [place] [address] Oct, [facility] [address] [id number] [address] [place] [address], [place] [address] Oct, [facility] [address] [id number] [address] [place] [address], [place] [address] Sep, [facility] [address] [id number] [address] [place] [address], [place] [address] Sep, [facility] [address] [id number] [address] [place] [address], [place] [address] Aug, [facility] [address] [id number] [address] [place] [address], [place] [address] Aug, [facility] [address] [id number] [address] [place] [address], [place] [address] Aug, [facility] [address] [id number] [address] [place] [address], [place] [address] Aug, [facility] [address] [id number] [address] [place] [address], [place] [address] July, [facility] [address] [id number] [address] [place] [address], [place] [address] July, [facility] [address] [id number] [address] [place] [address], [place] [address] July, [facility] [address] [id number] [address] [place] [address], [place] [address] July, [facility] [address] [id number] [address] [place] [address], [place] [address] Jun, [facility] [place] [address] [facility] [id number] [address] [place] [address] Jun, [facility] [place] [address] [facility] [id number] [address] [place] [address] Feb, [facility] [place] [address] [facility] [id number] [address] [place] [address] Feb, [facility] [place] [address] [facility] [id number] [address] [place] [address] Mar, IMMUNIZATIONS No Known Immunizations SOCIAL HISTORY Never Assessed REASON FOR VISIT Hospital f/u -Via Susan- Elevated BS 900. Is out of strips. He ran out [facility] PLAN OF CARE Activity Details Follow Up 3 Weeks Reason: VITAL SIGNS Height 68 in 2017-10-04 Weight 174.2 lbs 2017-10-04 Temperature 98.3 degrees Fahrenheit 2017-10-04 Heart Rate 92 bpm 2017-10-04 Respiratory Rate 20 2017-10-04 BMI 26.48 kg/m2 2017-10-04 Blood pressure systolic 124 mmHg 2017-10-04 Blood pressure diastolic 78 mmHg 2017-10-04 MEDICATIONS Medication Instructions Dosage Frequency Start Date End Date Duration S tatus Metformin HCl 1000 MG TAKE ONE TABLET BY MOUTH TWICE DAILY W ITH MEALS 30 Active [place] Contour Next Test 1 In Vitro 2 times a day 1 test 12h 15 May, 2015 Active GlipiZIDE 10 mg Orally Once a day 1 tablet 24h Sep, 30 day(s) Active RESULTS Name Result Date Reference Range A1C (IN HOUSE) 2017-10-04 A1C IN HOUSE 14 4.3 - 5.6 % Previous A1c 8.5 Lot [id number] Exp date 05/2019 GLUCOSE FINGERSTICK (IN HOUSE) 2017-10-04 GLU FINGERSTICK 410 PC Lot # [id number] Exp date 10/14/2017 PROCEDURES Procedure Date Ordered Result Body Site GLYCATED HEMOGLOBIN TEST October 04, 2017 GLUCOSE BLOOD TEST October 04, 2017 INSTRUCTIONS MEDICATIONS ADMINISTERED No Known Medications [...]
--- OUTSIDE RECORDS SUMMARY | 2019-08-16 14:18 | XMS REPORT ---
Author Author Joseph MARIA [facility] Address [address] [place] [address] Care Team Providers Care Flask Cleaner Name Role Phone MIRELLA MARIA Unavailable PROBLEMS ALLERGIES No Information ENCOUNTERS IMMUNIZATIONS No Known Immunizations SOCIAL HISTORY No smoking Hx information available REASON FOR VISIT PLAN OF CARE VITAL SIGNS MEDICATIONS RESULTS No Results PROCEDURES No Known procedures INSTRUCTIONS MEDICATIONS ADMINISTERED No Known Medications MEDICAL (GENERAL) HISTORY
--- OUTSIDE RECORDS SUMMARY | 2019-08-16 14:18 | XMS REPORT ---
Author Author Joseph MARIA Organization [facility] Address [address] [place] [address] Care Team Providers Care Photographic Aide Name Role Phone CROW MIRELLA Unavailable PROBLEMS Type Condition ICD9-CM Code VLS53-RD Code Onset Dates Condition S tatus SNOMED Code Problem Shoulder pain, right M25.511 Active 98539310 Problem Diabetes type 2, uncontrolled E11.65 Active 041358897 Problem Hypertension, benign I10 Active 32796849 Problem Mood disorder F39 Active 035788 05 Problem Acquired hypothyroidism E03.9 Active 077539657 Problem Low back pain M54.5 Active 233829 005 Problem FDC current use of insulin Z79.4 Active 599943833 Problem Type 2 diabetes mellitus without complications E11 .9 Active 060354418 Problem Controlled type 2 diabetes m ellitus without complication, without long- term current use of insulin E11.9 Active 979818260 Problem Diabetes type 2, controlled E11.9 Ac tive 16544408 Problem Cervical radiculopathy M54.12 Active 58603132 Problem History of urethral stricture Z87.448 Active 708568124 ALLERGIES No Known Allergies ENCOUNTERS Encounter Location Date Diagnosis [place] [address] [facility] [id number] [address] [place] [phone] Dec, Type 2 diabetes mellitus wit hout complications E11.9 ; FDC current use of insulin Z79.4 and Cervicalgia M54.2 [facility] [address] [facility] [id number] [address] [place] [address] Dec, Controlled type 2 diabetes m ellitus without complication, without long-term current use of insulin E11.9 [facility] [address] [facility] [id number] [address] [place] [address] Nov, [place] [address] [facility] [id number] [address] [place] [phone] Oct, Diabetes type 2, uncontrolle d E11.65 [facility] [address] [id number] [address] [place] [address] Sep, Diabetes type 2, uncontrolle d E11.65 [facility] [address] [id number] [address] [place] [phone] Jun, Controlled type 2 diabetes m ellitus without complication, without long-term current use of insulin E11.9 [facility] [address] [id number] [address] [place] [phone] May, [facility] [address] [id number] [address] [place] [phone] May, Radiculopathy of cervical re gion M54.12 [facility] [address] [id number] [address] [place] [phone] May, Controlled type 2 diabetes m ellitus without complication, without long-term current use of insulin E11.9 [facility] [address] [id number] [address] [place] [phone] May, [facility] [address] [id number] [address] [place] [phone] May, Controlled type 2 diabetes m ellitus without complication, without long-term current use of insulin E11.9 [facility] [address] [id number] [address] [place] [address] May, Controlled type 2 diabetes m ellitus without complication, without long-term current use of insulin E11.9 [facility] [address] [id number] [address] [place] [address] May, Controlled type 2 diabetes m ellitus without complication, without long-term current use of insulin E11.9 [facility] [address] [id number] [address] [place] [phone] 15 Apr, 2017 [facility] [address] [facility] [id number] [address] [place] [phone] 07 Apr, 2017 Controlled type 2 diabetes m ellitus without complication, without long-term current use of insulin E11.9 [facility] [address] [id number] [address] [place] [phone] Apr, [facility] [address] [id number] [address] [place] [address] Apr, Controlled type 2 diabetes m ellitus without complication, without long-term current use of insulin E11.9 [place] [address] [id number] [address] [place] [phone] Mar, [facility] [address] [id number] [address] [place] [address] Mar, Radiculopathy of cervical re gion M54.12 [facility] [address] [id number] [address] [place] [phone] Mar, Controlled type 2 diabetes m ellitus without complication, without long-term current use of insulin E11.9 [place] [address] [id number] [address] [place] [address] Feb, Cervical radiculopathy M54.1 2 ; Acute cystitis without hematuria N30.00 and History of urethral stricture Z87.448 [place] [address] [id number] [address] [place] [address] Feb, Controlled type 2 diabetes m ellitus without complication, without long-term current use of insulin E11.9 [place] [address] [id number] [address] [place] [address] Feb, [place] [address] [id number] [address] [place] [phone] Jan, Diabetes type 2, uncontrolle d E11.65 [place] [address] [id number] [address] [place] [address] Jan, [place] [address] [facility] [id number] [address] [place] [address] Jan, Controlled type 2 diabetes m ellitus without complication, without long-term current use of insulin E11.9 ; Chest wall pain R07.89 and Thoracic spine pain M54.6 [facility] [address] [id number] [address] [place] [address] Dec, [facility] [address] [id number] [address] [place] [phone] Dec, [facility] [address] [id number] [address] [place] [address] Nov, [facility] [address] [id number] [address] [place] [address] Nov, [facility] [address] [id number] [address] [place] [address] Nov, Trichomonas exposure Z20.2 [facility] [address] [id number] [address] [place] [phone] Oct, [facility] [address] [id number] [address] [place] [address] Oct, [facility] [address] [id number] [address] [place] [phone] Oct, [facility] [address] [id number] [address] [place] [address] Oct, [facility] [address] [id number] [address] [place] [address] Sep, [facility] [address] [id number] [address] [place] [phone] Sep, [facility] [address] [id number] [address] [place] [address] Aug, [facility] [address] [id number] [address] [place] [address] Aug, [facility] [address] [id number] [address] [place] [address] Aug, [facility] [address] [id number] [address] [place] [address] Aug, [facility] [address] [id number] [address] [place] [address] July, Diabetes type 2, controlled E11.9 [facility] [address] [id number] [address] [place] [address] July, [facility] [address] [id number] [address] [place] [address] July, [facility] [address] [id number] [address] [place] [address] July, [facility] [address] [id number] [address] [place] [address] July, [facility] [address] [id number] [address] [place] [address] Jun, [facility] [address] [id number] [address] [place] [phone] Jun, [facility] [address] [id number] [address] [place] [phone] May, [facility] [address] [id number] [address] [place] [address] May, [facility] [address] [id number] [address] [place] [phone] May, [facility] [address] [id number] [address] [place] [address] May, Controlled type 2 diabetes m ellitus without complication, without long-term current use of insulin E11.9 [facility] [address] [id number] [address] [place] [id number] 15 Apr, 2016 [facility] [address] [id number] [address] [place] [address] Apr, [facility] [address] [id number] [address] [place] [phone] Mar, [facility] [address] [id number] [address] [place] [address] Mar, [facility] [address] [id number] [address] [place] [address] Feb, [facility] [address] [id number] [address] [place] [address], [place] [address] Feb, [facility] [address] [id number] [address] [place] [address] Jan, [facility] [address] [id number] [address] [place] [address], [place] [address] Jan, [facility] [address] [id number] [address] [place] [address], [place] [address] Jan, [facility] [address] [id number] [address] [place] [address] Dec, [facility] [address] [id number] [address] [place] [phone] Dec, [facility] [address] [id number] [address] [place] [address] Dec, [facility] [address] [id number] [address] [place] [address] Nov, Diabetes type 2, uncontrolle d E11.65 [facility] [address] [id number] [address] [place] [address] Nov, [facility] [address] [id number] [address] [place] [address] Nov, [facility] [address] [id number] [address] [place] [address] Oct, [facility] [address] [id number] [address] [place] [address] Oct, [facility] [address] [id number] [address] [place] [address] Sep, Controlled type 2 diabetes m ellitus without complication, without long-term current use of insulin E11.9 [facility] [address] [id number] [address] [place] [phone] 13 Sep, 2015 [facility] [address] [id number] [address] [place] [phone] Sep, [facility] [address] [id number] [address] [place] [phone] Sep, [facility] [address] [id number] [address] [place] [address] Sep, [facility] [address] [id number] [address] [place] [address] Aug, Diabetes type 2, controlled E11.9 ; Anxiety F41.9 ; Carpal tunnel syndrome, left upper limb G56.02 and Carpal tunnel syndrome, right upper limb G56.01 [facility] [address] [id number] [address] [place] [address] Aug, Urethritis N34.2 [facility] [address] [id number] [address] [place] [address] Aug, [facility] [address] [id number] [address] [place] [address] July, Genital warts A63.0 [facility] [address] [id number] [address] [place] [address] July, [facility] [address] [id number] [address] [place] [address] July, Genital warts A63.0 [facility] [address] [id number] [address] [place] [address] July, Anxiety F41.9 [facility] [address] [id number] [address] [place] [address] 15 Jun, 2015 Genital warts A63.0 [facility] [address] [id number] [address] [place] [address] 08 Jun, 2015 Anxiety F41.9 [facility] [address] [id number] [address] [place] [address] 15 May, 2015 Genital warts A63.0 and Diab etes type 2, uncontrolled E11.65 [facility] [address] [id number] [address] [place] [address] May, [facility] [address] [facility] [id number] [address] [place] [address] May, [facility] [address] [id number] [address] [place] [address] Apr, [facility] [address] [id number] [address] [place] [address] Apr, [facility] [address] [facility] [id number] [address] [place] [address] Apr, Diabetes type 2, controlled E11.9 [facility] [address] [facility] [id number] [address] [place] [address] Apr, Genital warts A63.0 [facility] [address] [id number] [address] [place] [address] Apr, [facility] [address] [facility] [id number] [address] [place] [address] Apr, Diabetes type 2, uncontrolle d E11.65 and Genital warts A63.0 [facility] [address] [facility] [id number] [address] [place] [address] Apr, [facility] [address] [facility] [id number] [address] [place] [address] Mar, [facility] [address] [facility] [id number] [address] [place] [address] Mar, [facility] [address] [facility] [id number] [address] [place] [address] Mar, Family history of diabetes m ellitus V18.0 and Weight loss R63.4 [facility] [address] [place] [id number] [address] [place] [address] Mar, Genital warts A63.0 and Fami ly history of diabetes mellitus V18.0 [facility] [address] [facility] [id number] [address] [place] [phone] Feb, [facility] [address] [place] [id number] [address] [place] [address] Jan, [facility] [address] [place] [id number] [place] [address] Jan, Perianal venereal warts A63. 0 [facility] [address] [place] [id number] [place] [address] Jan, Urethritis N34.2 and Anxiety F41.9 [facility] [address] [address] Jan, [facility] [address] [address] Jan, Urinary tract infection, sit e unspecified N39.0 [facility] [address] [place] [id number] [place] [address] Jan, [facility] [address] [place] [id number] [place] [address] Dec, [facility] [address] [address] Dec, HPV (human papilloma virus) anogenital infection A63.0 ; Anxiety F41.9 and Gastroesophageal reflux disease without esophagitis K21.9 [facility] [address] [place] [id number] [address] [place] [address] Sep, Blood in stool 578.1 [facility] [address] [place] [id number] [address] [place] [address] Aug, Blood in stool 578.1 [facility] [address] [place] [id number] [address] [place] [address] Aug, Anxiety 300.00 and Blood in stool 578.1 [facility] [address] [facility] [id number] [address] [place] [address] July, [facility] [address] [facility] [id number] [address] [place] [address] July, Family history of diabetes m ellitus V18.0 [facility] [address] [facility] [id number] [address] [place] [address] July, Family history of diabetes m ellitus V18.0 ; Family history of thyroid disease V18.19 ; Polyuria 788.42 ; Polydipsia 783.5 ; Alopecia 704.00 and Fatigue 780.79 [facility] [address] [facility] [id number] [address] [place] [address] Jun, [facility] [address] [place] [id number] [address] [place] [address] Jun, [facility] [address] [place] [id number] [address] [place] [address] Mar, [facility] [address] [facility] [id number] [address] [place] [address] Mar, [facility] [address] [place] [id number] [address] [place] [address] Mar, [facility] [address] [facility] [id number] [address] [place] [address] Mar, [facility] [address] [facility] [id number] [address] [place] [address] Mar, [facility] [address] [facility] [id number] [address] [place] [address] Mar, [facility] [address] [facility] [id number] [address] [place] [phone] Mar, [facility] [address] [facility] [id number] [address] [place] [address] Mar, [facility] [address] [id number] [address] [place] [address], [place] [address] Mar, [facility] [address] [id number] [address] [place] [address], [place] [address] Mar, [facility] [address] [id number] [address] [place] [address], [place] [address] Feb, [facility] [address] [id number] [address] [place] [address], [place] [address] Feb, [facility] [address] [id number] [address] [place] [address], [place] [address] Jan, [facility] [address] [id number] [address] [place] [address], [place] [address] Jan, [facility] [address] [id number] [address] [place] [address], [place] [address] Jan, [facility] [address] [id number] [address] [place] [address], [place] [address] Jan, [facility] [address] [id number] [address] [place] [address], [place] [address] Dec, [facility] [address] [id number] [address] [place] [address], [place] [address] Dec, [facility] [address] [id number] [address] [place] [address], [place] [address] Nov, [facility] [address] [id number] [address] [place] [address], [place] [address] Nov, [facility] [address] [id number] [address] [place] [address], [place] [address] Oct, [facility] [address] [id number] [address] [place] [address], [place] [address] Oct, [facility] [address] [id number] [address] [place] [address], [place] [address] Oct, [facility] [address] [id number] [address] [place] [address], [place] [address] Oct, [facility] [address] [id number] [address] [place] [address], [place] [address] Oct, [facility] [address] [id number] [address] [place] [address], [place] [address] Oct, [facility] [address] [id number] [address] [place] [address], [place] [address] Oct, [facility] [address] [id number] [address] [place] [address], [place] [address] Oct, [facility] [address] [id number] [address] [place] [address], [place] [address] Sep, [facility] [address] [id number] [address] [place] [address], [place] [address] Sep, [facility] [address] [id number] [address] [place] [address], [place] [address] Sep, [facility] [address] [id number] [address] [place] [address], [place] [address] Sep, [facility] [address] [id number] [address] [place] [address], [place] [address] Aug, [facility] [address] [id number] [address] [place] [address], [place] [address] Aug, [facility] [address] [id number] [address] [place] [address], [place] [address] Aug, [facility] [address] [id number] [address] [place] [address], [place] [address] Aug, [facility] [address] [id number] [address] [place] [address], [place] [address] July, [facility] [address] [id number] [address] [place] [address], [place] [address] July, [facility] [address] [id number] [address] [place] [address], [place] [address] July, [facility] [address] [id number] [address] [place] [address], [place] [address] July, [facility] [address] [id number] [address] [place] [address], [place] [address] July, [facility] [address] [id number] [address] [place] [address], [place] [address] July, [facility] [address] [id number] [address] [place] [address], [place] [address] Jun, [facility] [address] [id number] [address] [place] [address], [place] [address] Jun, [facility] [address] [id number] [address] [place] [address], [place] [address] 15 Jun, 2013 [facility] [address] [id number] [address] [place] [address], [place] [id number] 15 Jun, 2013 [facility] [address] [id number] [address] [place] [address], [place] [address] Jun, [facility] [address] [id number] [address] [place] [address], [place] [address] Jun, [facility] [address] [id number] [address] [place] [address], [place] [address] Jun, [facility] [address] [id number] [address] [place] [address], [place] [address] Jun, [facility] [address] [id number] [address] [place] [address], [place] [id number] May, [facility] [address] [id number] [address] [place] [address], [place] [address] May, [facility] [address] [id number] [address] [place] [address], [place] [id number] 18 May, 2013 [facility] [address] [id number] [address] [place] [address], [place] [address] Apr, [facility] [address] [id number] [address] [place] [address], [place] [id number] Apr, [facility] [address] [id number] [address] [place] [address], [place] [id number] Apr, [facility] [address] [id number] [address] [place] [address], [place] [address] Apr, [facility] [address] [id number] [address] [place] [address], [place] [id number] Mar, [facility] [address] [id number] [address] [place] [address], [place] [address] Mar, [facility] [address] [id number] [address] [place] [address], [place] [address] Mar, [facility] [address] [id number] [address] [place] [address], [place] [address] Mar, [facility] [address] [id number] [address] [place] [address], [place] [address] Mar, [facility] [address] [id number] [address] [place] [address], [place] [id number] Mar, [facility] [address] [id number] [address] [place] [address], [place] [address] Feb, [facility] [address] [id number] [address] [place] [address], [place] [id number] Feb, [facility] [address] [id number] [address] [place] [address], [place] [address] Jan, [facility] [address] [id number] [address] [place] [address], [place] [id number] Jan, [facility] [address] [id number] [address] [place] [address], [place] [id number] Jan, [facility] [address] [id number] [address] [place] [address], [place] [id number] Jan, [facility] [address] [id number] [address] [place] [address], [place] [id number] Jan, [facility] [address] [id number] [address] [place] [address], [place] [id number] Jan, [facility] [address] [id number] [address] [place] [address], [place] [id number] Jan, [facility] [address] [id number] [address] [place] [address], [place] [id number] Dec, [facility] [address] [id number] [address] [place] [address], [place] [id number] Dec, [facility] [address] [id number] [address] [place] [address], [place] [id number] Nov, [facility] [address] [id number] [address] [place] [address], [place] [id number] Nov, [facility] [address] [id number] [address] [place] [address], [place] [id number] Nov, [facility] [address] [id number] [address] [place] [address], [place] [id number] Oct, [facility] [address] [id number] [address] [place] [address], [place] [id number] Oct, [facility] [address] [id number] [address] [place] [address], [place] [id number] Oct, [facility] [address] [id number] [address] [place] [address], [place] [id number] Oct, [facility] [address] [id number] [address] [place] [address], [place] [id number] Sep, [facility] [address] [id number] [address] [place] [address], [place] [id number] Sep, [facility] [address] [id number] [address] [place] [address], [place] [id number] Aug, [facility] [address] [id number] [address] [place] [address], [place] [id number] Aug, [facility] [address] [id number] [address] [place] [address], [place] [id number] Aug, [facility] [address] [id number] [address] [place] [id number] Aug, [facility] [address] [id number] [address] [place] [phone] July, [facility] [address] [id number] [address] [place] [id number] July, [facility] [address] [id number] [address] [place] [id number] July, [facility] [address] [id number] [address] [place] [id number] July, [facility] [address] [id number] [address] [place] [id number] Jun, [facility] [address] [id number] [address] [place] [id number] Jun, [facility] [address] [id number] [address] [place] [id number] Feb, [facility] [address] [id number] [address] [place] [phone] Feb, [facility] [address] [id number] [address] [place] [id number] Mar, IMMUNIZATIONS No Known Immunizations SOCIAL HISTORY Never Assessed REASON FOR VISIT PALS PLAN OF CARE VITAL SIGNS MEDICATIONS Medication Instructions Dosage Frequency Start Date End Date Duration S tatus Tresiba FlexTouch 100 UNIT/ML Subcutaneous Once a day Inject 20 units 24h 90 days Active Pen [place]ott 32G X 6 MM subcutaneously Once a day use with pr e-filled pens to inject medication 24h Dec, 90 days Active RESULTS No Results PROCEDURES No [...]
--- OUTSIDE RECORDS SUMMARY | 2019-08-16 14:22 | XMS REPORT | Continuity of Care Document ---
Demographics Preferred Language Unknown Marital Status Unknown Mosque Affiliation Unknown Race Unknown Ethnic Group Unknown Author Organization Unknown Address Unknown Phone Unavailable Allergies Active Description Code Type Severity Reaction Onset Reported/Identified Relationship to Patient Clinical Status Yes NKANo Known Allergies NKA Miscellaneous Allergy Mild N/A 01/06/2009 Medications There is no data. Problems Date Dx Coded Attending Type Code Diagnosis Diagnosed By 04/02/2009 599.0 URIN LACIE TRACT INFECTION 04/02/2009 599.0 URIN LACIE TRACT INFECTION 04/02/2009 599.0 URIN LACIE TRACT INFECTION 04/02/2009 599.0 URIN LACIE TRACT INFECTION 04/02/2009 599.0 URIN LACIE TRACT INFECTION 04/02/2009 MIRELLA MARIA APRN 59 9.0 URINARY TRACT INFECTION 04/02/2009 MIRELLA MARIA APRN 59 9.0 URINARY TRACT INFECTION 04/02/2009 JODY LACKEY MD 599.0 URINARY TRACT INFECTION 04/02/2009 ESTER ZIEGLER DO 599.0 URINARY TRACT INFECTION 04/02/2009 MIRELLA MARIA APRN T 59 9.0 URINARY TRACT INFECTION 04/02/2009 MIRELLA MARIA APRN T 59 9.0 URINARY TRACT INFECTION 04/02/2009 MIRELLA MARIA APRN T 59 9.0 URINARY TRACT INFECTION 04/02/2009 MIRELLA MARIA APRN T 59 9.0 URINARY TRACT INFECTION 04/02/2009 MIRELLA MARIA APRN T 59 9.0 URINARY TRACT INFECTION 06/18/2009 840.9 SPRA IN/STRAIN SHOULDER/ARM 06/18/2009 844.9 SPRA IN/STRAIN KNEE/LEG 06/18/2009 845.10 SPR AIN/STRAIN FOOT 06/18/2009 840.9 SPRA IN/STRAIN SHOULDER/ARM 06/18/2009 844.9 SPRA IN/STRAIN KNEE/LEG 06/18/2009 845.10 SPR AIN/STRAIN FOOT 06/18/2009 840.9 SPRA IN/STRAIN SHOULDER/ARM 06/18/2009 844.9 SPRA IN/STRAIN KNEE/LEG 06/18/2009 845.10 SPR AIN/STRAIN FOOT 06/18/2009 840.9 SPRA IN/STRAIN SHOULDER/ARM 06/18/2009 844.9 SPRA IN/STRAIN KNEE/LEG 06/18/2009 845.10 SPR AIN/STRAIN FOOT 06/18/2009 840.9 SPRA IN/STRAIN SHOULDER/ARM 06/18/2009 844.9 SPRA IN/STRAIN KNEE/LEG 06/18/2009 845.10 SPR AIN/STRAIN FOOT 06/18/2009 MIRELLA MARIA APRN 84 0.9 SPRAIN/STRAIN SHOULDER/ARM 06/18/2009 MIRELLA MARIA APRN 84 4.9 SPRAIN/STRAIN KNEE/LEG 06/18/2009 MIRELLA MARIA APRN T 845.10 SPRAIN/STRAIN FOOT 06/18/2009 MIRELLA MARIA APRN 84 0.9 SPRAIN/STRAIN SHOULDER/ARM 06/18/2009 MIRELLA MARIA APRN 84 4.9 SPRAIN/STRAIN KNEE/LEG 06/18/2009 MIRELLA MARIA APRN 845.10 SPRAIN/STRAIN FOOT 06/18/2009 JODY LACKEY MD 840.9 SPRAIN/STRAIN SHOULDER/ARM 06/18/2009 JODY LACKEY MD 844.9 SPRAIN/STRAIN KNEE/LEG 06/18/2009 JODY LACKEY MD 845.1 0 SPRAIN/STRAIN FOOT 06/18/2009 ZIEGLER DO, ESTER K 840.9 SPRAIN/STRAIN SHOULDER/ARM 06/18/2009 ZIEGLER DO, ESTER K 844.9 SPRAIN/STRAIN KNEE/LEG 06/18/2009 ZIEGLER DO, ESTER K 845.10 SPRAIN/STRAIN FOOT 06/18/2009 MIRELLA MARIA APRN T 84 0.9 SPRAIN/STRAIN SHOULDER/ARM 06/18/2009 MIRELLA MARIA APRN T 84 4.9 SPRAIN/STRAIN KNEE/LEG 06/18/2009 MIRELLA MARIA APRN T 845.10 SPRAIN/STRAIN FOOT 06/18/2009 MIRELLA MARIA APRN T 84 0.9 SPRAIN/STRAIN SHOULDER/ARM 06/18/2009 MIRELLA MARIA APRN 84 4.9 SPRAIN/STRAIN KNEE/LEG 06/18/2009 MIRELLA MARIA APRN 845.10 SPRAIN/STRAIN FOOT 06/18/2009 MIRELLA MARIA APRN 84 0.9 SPRAIN/STRAIN SHOULDER/ARM 06/18/2009 MIRELLA MARIA APRN 84 4.9 SPRAIN/STRAIN KNEE/LEG 06/18/2009 MIRELLA MARIA APRN 845.10 SPRAIN/STRAIN FOOT 06/18/2009 MIRELLA MARIA APRN 84 0.9 SPRAIN/STRAIN SHOULDER/ARM 06/18/2009 MIRELLA MARIA APRN 84 4.9 SPRAIN/STRAIN KNEE/LEG 06/18/2009 MIRELLA MARIA APRN 845.10 SPRAIN/STRAIN FOOT 06/18/2009 MIRELLA MARIA APRN 84 0.9 SPRAIN/STRAIN SHOULDER/ARM 06/18/2009 MIRELLA MARIA APRN 84 4.9 SPRAIN/STRAIN KNEE/LEG 06/18/2009 MIRELLA MARIA APRN 845.10 SPRAIN/STRAIN FOOT 09/10/2009 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 09/10/2009 845.00 SPR AIN/STRAIN ANKLE 09/10/2009 847.9 SPRA IN/STRAIN BACK UNSPEC 09/10/2009 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 09/10/2009 845.00 SPR AIN/STRAIN ANKLE 09/10/2009 847.9 SPRA IN/STRAIN BACK UNSPEC 09/10/2009 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 09/10/2009 845.00 SPR AIN/STRAIN ANKLE 09/10/2009 847.9 SPRA IN/STRAIN BACK UNSPEC 09/10/2009 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 09/10/2009 845.00 SPR AIN/STRAIN ANKLE 09/10/2009 847.9 SPRA IN/STRAIN BACK UNSPEC 09/10/2009 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 09/10/2009 845.00 SPR AIN/STRAIN ANKLE 09/10/2009 847.9 SPRA IN/STRAIN BACK UNSPEC 09/10/2009 MIRELLA MARIA APRN T 296.90 MOOD DISORDER 09/10/2009 MIRELLA MARIA APRN 845.00 SPRAIN/STRAIN ANKLE 09/10/2009 MIRELLA MARIA APRN 84 7.9 SPRAIN/STRAIN BACK UNSPEC 09/10/2009 MIRELLA MARIA APRN 296.90 MOOD DISORDER 09/10/2009 MIRELLA MARIA APRN 845.00 SPRAIN/STRAIN ANKLE 09/10/2009 MIRELLA MARIA APRN 84 7.9 SPRAIN/STRAIN BACK UNSPEC 09/10/2009 JODY LACKEY MD 296.9 0 MOOD DISORDER 09/10/2009 JODY LACKEY MD 845.0 0 SPRAIN/STRAIN ANKLE 09/10/2009 JODY LACKEY MD 847.9 SPRAIN/STRAIN BACK UNSPEC 09/10/2009 ESTER ZIEGLER DO K 296.90 MOOD DISORDER 09/10/2009 ZIEGLER DO, ESTER K 845.00 SPRAIN/STRAIN ANKLE 09/10/2009 ZIEGLER DO, ESTER K 847.9 SPRAIN/STRAIN BACK UNSPEC 09/10/2009 MIRELLA MARIA APRN 296.90 MOOD DISORDER 09/10/2009 MIRELLA MARIA APRN 845.00 SPRAIN/STRAIN ANKLE 09/10/2009 MIRELLA MARIA APRN 84 7.9 SPRAIN/STRAIN BACK UNSPEC 09/10/2009 MIRELLA MARIA APRN T 296.90 MOOD DISORDER 09/10/2009 MIRELLA MARIA APRN 845.00 SPRAIN/STRAIN ANKLE 09/10/2009 MIRELLA MARIA APRN 84 7.9 SPRAIN/STRAIN BACK UNSPEC 09/10/2009 MIRELLA MARIA APRN T 296.90 MOOD DISORDER 09/10/2009 MIRELLA MARIA APRN T 845.00 SPRAIN/STRAIN ANKLE 09/10/2009 MIRELLA MARIA APRN 84 7.9 SPRAIN/STRAIN BACK UNSPEC 09/10/2009 MIRELLA MARIA APRN T 296.90 MOOD DISORDER 09/10/2009 MIRELLA MARIA APRN T 845.00 SPRAIN/STRAIN ANKLE 09/10/2009 MIRELLA MARIA APRN 84 7.9 SPRAIN/STRAIN BACK UNSPEC 09/10/2009 MIRELLA MARIA APRN T 296.90 MOOD DISORDER 09/10/2009 MIRELLA MARIA APRN T 845.00 SPRAIN/STRAIN ANKLE 09/10/2009 MIRELLA MARIA APRN 84 7.9 SPRAIN/STRAIN BACK UNSPEC 03/06/2010 724.5 BACK PAIN, GENERAL 03/06/2010 724.5 BACK PAIN, GENERAL 03/06/2010 724.5 BACK PAIN, GENERAL 03/06/2010 724.5 BACK PAIN, GENERAL 03/06/2010 724.5 BACK PAIN, GENERAL 03/06/2010 MIRELLA MARIA APRN 72 4.5 BACK PAIN, GENERAL 03/06/2010 CROW CUSTOMER CARE REPRESENTATIVE, MIRELLA T 72 4.5 BACK PAIN, GENERAL 03/06/2010 JODY LACKEY MD 724.5 BACK PAIN, GENERAL 03/06/2010 ESTER ZIEGLER DO 724.5 BACK PAIN, GENERAL 03/06/2010 MIRELLA MARIA APRN T 72 4.5 BACK PAIN, GENERAL 03/06/2010 MIRELLA MARIA APRN T 72 4.5 BACK PAIN, GENERAL 03/06/2010 MIRELLA MARIA APRN T 72 4.5 BACK PAIN, GENERAL 03/06/2010 MIRELLA MARIA APRN T 72 4.5 BACK PAIN, GENERAL 03/06/2010 MIRELLA MARIA APRN T 72 4.5 BACK PAIN, GENERAL 03/23/2010 788.1 DYSURIA 03/23/2010 788.1 DYSURIA 03/23/2010 788.1 DYSURIA 03/23/2010 788.1 DYSURIA 03/23/2010 788.1 DYSURIA 03/23/2010 MIRELLA MARIA APRN T 78 8.1 DYSURIA 03/23/2010 MIRELLA MARIA APRN T 78 8.1 DYSURIA 03/23/2010 JODY LACKEY MD 788.1 DYSURIA 03/23/2010 ESTER ZIEGLER DO 788.1 DYSURIA 03/23/2010 MIRELLA MARIA APRN T 78 8.1 DYSURIA 03/23/2010 MIRELLA MARIA APRN T 78 8.1 DYSURIA 03/23/2010 MIRELLA MARIA APRN T 78 8.1 DYSURIA 03/23/2010 MIRELLA MARIA APRN T 78 8.1 DYSURIA 03/23/2010 MIRELLA MARIA APRN T 78 8.1 DYSURIA 05/18/2011 Ot 598.9 URET HRAL STRICTURE NOS 05/18/2011 Ot 788.20 RET ENTION OF URINE NOS 05/22/2011 Ot V53.6 FITT ING URINARY DEVICES 02/06/2012 Ot 930.0 CORN EAL FOREIGN BODY 02/06/2012 Ot E000.8 OTH ER EXTERNAL CAUSE STATUS 02/06/2012 Ot E849.0 ACC IDENT IN HOME 02/06/2012 Ot E914 FB EN TERING EYE 07/03/2012 719.41 philomena nt pain, localized in the left shoulder 07/03/2012 719.41 philomena nt pain, localized in the left shoulder 07/03/2012 719.41 PHILOMENA NT PAIN, LOCALIZED IN THE LEFT SHOULDER 07/03/2012 719.41 PHILOMENA NT PAIN, LOCALIZED IN THE LEFT SHOULDER 07/03/2012 719.41 PHILOMENA NT PAIN, LOCALIZED IN THE LEFT SHOULDER 07/03/2012 MIRELLA MARIA APRN T 719.41 JOINT PAIN, LOCALIZED IN THE LEFT SHOULDER 07/03/2012 MIRELLA MARIA APRN T 719.41 JOINT PAIN, LOCALIZED IN THE LEFT SHOULDER 07/03/2012 JODY LACKEY MD 719.4 1 JOINT PAIN, LOCALIZED IN THE LEFT SHOULDER 07/03/2012 ESTER ZIEGLER DO 719.41 JOINT PAIN, LOCALIZED IN THE LEFT SHOULDER 07/03/2012 MIRELLA MARIA APRN T 719.41 JOINT PAIN, LOCALIZED IN THE LEFT SHOULDER 07/03/2012 MIRELLA MARIA APRN T 719.41 JOINT PAIN, LOCALIZED IN THE LEFT SHOULDER 07/03/2012 MIRELLA MARIA APRN T 719.41 JOINT PAIN, LOCALIZED IN THE LEFT SHOULDER 07/03/2012 MIRELLA MARIA APRN T 719.41 JOINT PAIN, LOCALIZED IN THE LEFT SHOULDER 07/03/2012 MIRELLA MARIA APRN T 719.41 JOINT PAIN, LOCALIZED IN THE LEFT SHOULDER 07/12/2012 368.8 OTHE R SPECIFIED VISUAL DISTURBANCES 07/12/2012 368.8 OTHE R SPECIFIED VISUAL DISTURBANCES 07/12/2012 368.8 OTHE R SPECIFIED VISUAL DISTURBANCES 07/12/2012 368.8 OTHE R SPECIFIED VISUAL DISTURBANCES 07/12/2012 MIRELLA MARIA APRN T 36 8.8 OTHER SPECIFIED VISUAL DISTURBANCES 07/12/2012 MIRELLA MARIA APRN T 36 8.8 OTHER SPECIFIED VISUAL DISTURBANCES 07/12/2012 JODY LACKEY MD 368.8 OTHER SPECIFIED VISUAL DISTURBANCES 07/12/2012 ESTER ZIEGLER DO 368.8 OTHER SPECIFIED VISUAL DISTURBANCES 07/12/2012 CROW BAEZ MIRELLA T 36 8.8 OTHER SPECIFIED VISUAL DISTURBANCES 07/12/2012 MIRELLA MARIA APRN T 36 8.8 OTHER SPECIFIED VISUAL DISTURBANCES 07/12/2012 MIRELLA MARIA APRN T 36 8.8 OTHER SPECIFIED VISUAL DISTURBANCES 07/12/2012 MIRELLA MARIA APRN T 36 8.8 OTHER SPECIFIED VISUAL DISTURBANCES 07/12/2012 MIRELLA MARIA APRN T 36 8.8 OTHER SPECIFIED VISUAL DISTURBANCES 08/16/2012 401.1 HYPE RTENSION, BENIGN ESSENTIAL 08/16/2012 401.1 HYPE RTENSION, BENIGN ESSENTIAL 08/16/2012 401.1 HYPE RTENSION, BENIGN ESSENTIAL 08/16/2012 MIRELLA MARIA APRN T 40 1.1 HYPERTENSION, BENIGN ESSENTIAL 08/16/2012 MIRELLA MARIA APRN T 40 1.1 HYPERTENSION, BENIGN ESSENTIAL 08/16/2012 JODY LACKEY MD 401.1 HYPERTENSION, BENIGN ESSENTIAL 08/16/2012 ZIEGLER DO, ESTER K 401.1 HYPERTENSION, BENIGN ESSENTIAL 08/16/2012 MIRELLA MARIA APRN T 40 1.1 HYPERTENSION, BENIGN ESSENTIAL 08/16/2012 MIRELLA MARIA APRN T 40 1.1 HYPERTENSION, BENIGN ESSENTIAL 08/16/2012 MIRELLA MARIA APRN T 40 1.1 HYPERTENSION, BENIGN ESSENTIAL 08/16/2012 MIRELLA MARIA APRN T 40 1.1 HYPERTENSION, BENIGN ESSENTIAL 08/16/2012 MIRELLA MARIA APRN T 40 1.1 HYPERTENSION, BENIGN ESSENTIAL 09/13/2012 244.9 HYPO THYROIDISM 09/13/2012 V01.9 EXPO SURE TO HEPATITIS C 09/13/2012 244.9 HYPO THYROIDISM 09/13/2012 V01.9 EXPO SURE TO HEPATITIS C 09/13/2012 MIRELLA MARIA APRN T 24 4.9 HYPOTHYROIDISM 09/13/2012 MIRELLA MARIA APRN T V0 1.9 EXPOSURE TO HEPATITIS C 09/13/2012 MIRELLA MARIA APRN T 24 4.9 HYPOTHYROIDISM 09/13/2012 MIRELLA MARIA APRN T V0 1.9 EXPOSURE TO HEPATITIS C 09/13/2012 JODY LACKEY MD 244.9 HYPOTHYROIDISM 09/13/2012 JODY LACKEY MD V01.9 EXPOSURE TO HEPATITIS C 09/13/2012 ZIEGLER DO, ESTER K 244.9 HYPOTHYROIDISM 09/13/2012 ZIEGLER DO, ESTER K V01.9 EXPOSURE TO HEPATITIS C 09/13/2012 MIRELLA MARIA APRN T 24 4.9 HYPOTHYROIDISM 09/13/2012 MIRELLA MARIA APRN T V0 1.9 EXPOSURE TO HEPATITIS C 09/13/2012 MIRELLA MARIA APRN T 24 4.9 HYPOTHYROIDISM 09/13/2012 MIRELLA MARIA APRN T V0 1.9 EXPOSURE TO HEPATITIS C 09/13/2012 MIRELLA MARIA APRN T 24 4.9 HYPOTHYROIDISM 09/13/2012 MIRELLA MARIA APRN T V0 1.9 EXPOSURE TO HEPATITIS C 09/13/2012 CROW CUSTOMER CARE REPRESENTATIVE, MIRELLA T 24 4.9 HYPOTHYROIDISM 09/13/2012 CROW BAEZ, MIRELLA T V0 1.9 EXPOSURE TO HEPATITIS C 09/13/2012 CROW BAEZ, MIRELLA T 24 4.9 HYPOTHYROIDISM 09/13/2012 CROW BAEZ, MIRELLA T V0 1.9 EXPOSURE TO HEPATITIS C 02/07/2013 JODY LACKEY MD 300.0 0 ANXIETY UNSPEC 02/07/2013 JODY LACKEY MD 724.2 BACK PAIN, LOWER 02/07/2013 TONEY CASTANEDA, ESTER K 300.00 ANXIETY UNSPEC 02/07/2013 ZIEGLER , ESTER K 724.2 BACK PAIN, LOWER 02/07/2013 CROW CUSTOMER CARE REPRESENTATIVE, MIRELLA T 300.00 ANXIETY UNSPEC 02/07/2013 CROW CUSTOMER CARE REPRESENTATIVE, MIRELLA T 72 4.2 BACK PAIN, LOWER 02/07/2013 CROW CUSTOMER CARE REPRESENTATIVE, MIRELLA T 300.00 ANXIETY UNSPEC 02/07/2013 CROW CUSTOMER CARE REPRESENTATIVE, MIRELLA T 72 4.2 BACK PAIN, LOWER 02/07/2013 CROW CUSTOMER CARE REPRESENTATIVE, MIRELLA T 300.00 ANXIETY UNSPEC 02/07/2013 CROW CUSTOMER CARE REPRESENTATIVE, MIRELLA T 72 4.2 BACK PAIN, LOWER 02/07/2013 CROW CUSTOMER CARE REPRESENTATIVE, MIRELLA T 300.00 ANXIETY UNSPEC 02/07/2013 CROW CUSTOMER CARE REPRESENTATIVE, MIRELLA T 72 4.2 BACK PAIN, LOWER 02/07/2013 CROW CUSTOMER CARE REPRESENTATIVE, MIRELLA T 300.00 ANXIETY UNSPEC 02/07/2013 CROW CUSTOMER CARE REPRESENTATIVE, MIRELLA T 72 4.2 BACK PAIN, LOWER 06/03/2013 CATA PEARCE CUSTOMER CARE REPRESENTATIVE Ot 597.80 URETHRITIS NOS 06/03/2013 CATA PEARCE CUSTOMER CARE REPRESENTATIVE Ot 598 .9 URETHRAL STRICTURE NOS 06/03/2013 CATA PEARCE CUSTOMER CARE REPRESENTATIVE Ot 788.20 RETENTION OF URINE NOS 06/05/2013 BELÉN HOWELL MD Ot 598.9 URETHRAL STRICTURE NOS 06/05/2013 BELÉN HOWELL MD Ot V55.6 ATTEN TO URINOSTOMY NEC 06/06/2013 KBOE ZIEGLER DOA K 099.40 OTHER NONGONOCOCCAL URETHRITIS UNSPECIFIED 06/06/2013 KOBE ZIEGLER DOA K 598.9 URETHRAL STRICTURE UNSPECIFIED 06/06/2013 MIRELLA MARIA APRN T 099.40 OTHER NONGONOCOCCAL URETHRITIS UNSPECIFIED 06/06/2013 MIRELLA MARIA APRN T 59 8.9 URETHRAL STRICTURE UNSPECIFIED 06/06/2013 MIRELLA MARIA APRN T 099.40 OTHER NONGONOCOCCAL URETHRITIS UNSPECIFIED 06/06/2013 MIRELLA MARIA APRN T 59 8.9 URETHRAL STRICTURE UNSPECIFIED 06/06/2013 MIRELLA MARIA APRN T 099.40 OTHER NONGONOCOCCAL URETHRITIS UNSPECIFIED 06/06/2013 MIRELLA MARIA APRN T 59 8.9 URETHRAL STRICTURE UNSPECIFIED 06/06/2013 MIRELLA MARIA APRN T 099.40 OTHER NONGONOCOCCAL URETHRITIS UNSPECIFIED 06/06/2013 MIRELLA MARIA APRN T 59 8.9 URETHRAL STRICTURE UNSPECIFIED 06/06/2013 MIRELLA MARIA APRN T 099.40 OTHER NONGONOCOCCAL URETHRITIS UNSPECIFIED 06/06/2013 MIRELLA MARIA APRN T 59 8.9 URETHRAL STRICTURE UNSPECIFIED 11/05/2013 MIRELLA MARIA APRN T 84 4.9 SPRAIN/STRAIN KNEE/LEG 11/05/2013 MIRELLA MARIA APRN T 84 4.9 SPRAIN/STRAIN KNEE/LEG 04/12/2014 MIRELLA MARIA APRN T 338.29 CHRONIC PAIN 09/03/2014 LYNDA VALERA, BELÉN Dsouza Ot 578.1 BLOOD IN STOOL 07/16/2015 LLUVIA GONZALEZ DO Ot B07. 9 VIRAL WART, UNSPECIFIED 07/16/2015 LLUVIA GONZALEZ DO Ot Z01.818 ENCOUNTER FOR OTHER PREPROCEDURAL EXAMIN 07/16/2015 LLUVIA GONZALEZ DO Ot Z11. 2 ENCOUNTER FOR SCREENING FOR OTHER BACTER 07/17/2015 LLUVIA GONZALEZ DO Ot A63. 0 ANOGENITAL (VENEREAL) WARTS 07/17/2015 LLUVIA GONZALEZ DO Ot B07. 9 VIRAL WART, UNSPECIFIED 07/17/2015 LLUVIA GONZALEZ DO Ot Z01.818 ENCOUNTER FOR OTHER PREPROCEDURAL EXAMIN 07/17/2015 LLUVIA GONZALEZ DO Ot Z11. 2 ENCOUNTER FOR SCREENING FOR OTHER BACTER 07/18/2015 LLUVIA GONZALEZ DO Ot A63. 0 ANOGENITAL (VENEREAL) WARTS 07/23/2015 LLUVIA GONZALEZ DO Ot A63. 0 ANOGENITAL (VENEREAL) WARTS 01/02/2016 LLUVIA GONZALEZ DO Ot K92. 1 MELENA 01/02/2016 GONZALEZLLUVIA ORDONEZ DO Ot Z01.818 ENCOUNTER FOR OTHER PREPROCEDURAL EXAMIN 01/27/2016 LULVIA GONZALEZ DO Ot K92. 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 9 TYPE 2 DIABETES MELLITUS WITHOUT COMPLIC 01/27/2016 GONZALEZ LLUVIA CASTANEDA Ot K63. 5 POLYP OF COLON 01/27/2016 LLUVIA GONZALEZ DO Ot K92. 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 9 TYPE 2 DIABETES MELLITUS WITHOUT COMPLIC 01/29/2016 GONZALEZ LLUVIA CASTANEDA Ot K92. 1 MELENA 02/06/2016 Ot 598.9 URET HRAL STRICTURE NOS 02/06/2016 Ot 788.20 RET ENTION OF URINE NOS 03/24/2017 GONZALEZLLUVIA ORDONEZ DO Ot K92. 1 MELENA 03/24/2017 LLUVIA GONZALEZ DO Ot Z01.818 ENCOUNTER FOR OTHER PREPROCEDURAL EXAMIN 04/08/2017 DARYA VALERA, JODY Torrez Ot M25.511 PAIN IN RIGHT SHOULDER 04/08/2017 JODY LACKEY MD Ot M47.812 SPONDYLOSIS W/O MYELOPATHY OR RADICULOPA 04/08/2017 JODY LACKEY MD Ot M50.20 OTHER CERVICAL DISC DISPLACEMENT, UNSP C 04/08/2017 JODY LACKEY MD Ot M89.38 HYPERTROPHY OF BONE, OTHER SITE 04/08/2017 JODY LACKEY MD Ot R20 .0 ANESTHESIA OF SKIN 04/08/2017 JODY LACKEY MD Ot Z87.828 PERSONAL HISTORY OF OTH (HEALED) PHYSICA 08/09/2017 LLUVIA GONZALEZ DO Ot K92. 1 MELENA 08/09/2017 LLUVIA GONZALEZ DO Ot Z01.818 ENCOUNTER FOR OTHER PREPROCEDURAL EXAMIN 08/09/2017 JESSICA NATH Ot E11.9 TYPE 2 DIABETES MELLITUS WITHOUT COMPLIC 08/09/2017 JESSICA NATH Ot F41.9 ANXIETY DISORDER, UNSPECIFIED 08/09/2017 JESSICA NATH Ot I 10 ESSENTIAL (PRIMARY) HYPERTENSION 08/09/2017 JESSICA NATH Ot J32.9 CHRONIC SINUSITIS, UNSPECIFIED 08/09/2017 JESSICA NATH Ot J34.0 ABSCESS, FURUNCLE AND CARBUNCLE OF NOSE 08/09/2017 JESSICA NATH Ot Z79.84 FIBER PICKER (CURRENT) USE OF ORAL HYPOGLYC 08/11/2017 JESSICA NATH Ot E11.9 TYPE 2 DIABETES MELLITUS WITHOUT COMPLIC 08/11/2017 JESSICA NATH Ot F41.9 ANXIETY DISORDER, UNSPECIFIED 08/11/2017 JESSICA NATH Ot I 10 ESSENTIAL (PRIMARY) HYPERTENSION 08/11/2017 JESSICA NATH Ot J32.9 CHRONIC SINUSITIS, UNSPECIFIED 08/11/2017 JESSICA NATH Ot J34.0 ABSCESS, FURUNCLE AND CARBUNCLE OF NOSE 08/11/2017 JESSICA NATH Ot Z79.84 SENIOR CARE (CURRENT) USE OF ORAL HYPOGLYC 09/30/2017 JUSTEN HANDLEY MD Ot E11.65 TYPE 2 DIABETES MELLITUS WITH HYPERGLYCE 09/30/2017 JUSTEN HANDLEY MD Ot E87 .1 HYPO-OSMOLALITY AND HYPONATREMIA 09/30/2017 JUSTEN HANDLEY MD Ot F17.210 NICOTINE DEPENDENCE, CIGARETTES, UNCOMPL 09/30/2017 JUSTEN HANDLEY MD Ot N28 .9 DISORDER OF KIDNEY AND URETER, UNSPECIFI 09/30/2017 JUSTEN HANDLEY MD Ot Z79.84 SENIOR CARE (CURRENT) USE OF ORAL HYPOGLYC 09/30/2017 JUSTEN HANDLEY MD Ot Z91.120 PT INTENTL UNDRDOSE OF MEDS REGIMEN DUE 10/18/2017 BELÉN HOWELL MD, Ot E11.9 TYPE 2 DIABETES MELLITUS WITHOUT COMPLIC 10/18/2017 BELÉN HOWELL MD, Ot F17.210 NICOTINE DEPENDENCE, CIGARETTES, UNCOMPL 10/18/2017 BELÉN HOWELL MD, Ot F41.9 ANXIETY DISORDER, UNSPECIFIED 10/18/2017 BELÉN HOWELL MD Ot I10 ESSENTIAL (PRIMARY) HYPERTENSION 10/18/2017 BELÉN HOWELL MD Ot L02.811 CUTANEOUS ABSCESS OF HEAD [ANY PART, EXC 10/18/2017 BELÉN HOWELL MD Ot Z79.84 FIBER PICKER (CURRENT) USE OF ORAL HYPOGLYC 01/25/2018 LLUVIA GONZALEZ DO Ot K92. 1 MELENA 01/25/2018 LLUVIA GONZALEZ DO Ot Z01.818 ENCOUNTER FOR OTHER PREPROCEDURAL EXAMIN 01/25/2018 LLUVIA GONZALEZ DO Ot K92. 1 MELENA 01/25/2018 LLUVIA GONZALEZ DO Ot Z01.818 ENCOUNTER FOR OTHER PREPROCEDURAL EXAMIN 02/02/2018 KANNAN BENITES MD Ot M25.551 PAIN IN RIGHT HIP 02/02/2018 KANNAN BENITES MD Ot M25.562 PAIN IN LEFT KNEE 02/02/2018 KANNAN BENITES MD Ot M54. 5 LOW BACK PAIN 02/02/2018 DELMIS VALERA KANNAN Ot M25.551 PAIN IN RIGHT HIP 02/02/2018 MARICRUZ BENITES MDEL Ot M25.562 PAIN IN LEFT KNEE 02/02/2018 DELMIS VALERA KANNAN Ot M54. 5 LOW BACK PAIN 02/06/2018 DELMIS VALERA KANNAN Ot M25.551 PAIN IN RIGHT HIP 02/06/2018 DELMIS VALERA KANNAN Ot M25.562 PAIN IN LEFT KNEE 02/06/2018 KANNAN BENITES MD Ot M54. 5 LOW BACK PAIN 02/07/2018 MARICRUZ BENITES MDEL Ot M25.551 PAIN IN RIGHT HIP 02/07/2018 DELMIS VALERA KANNAN Ot M25.562 PAIN IN LEFT KNEE 02/07/2018 KANNAN BENITES MD Ot M54. 5 LOW BACK PAIN Procedures Code Description [place] [address] ROUT INE VENIPUNCTURE 08/16/2012 47835 XRAY LUMBAR SPINE 2 OR 3 VIEWS 08/16/2012 27385 A1C (IN-HOUSE) 08/16/2012 90004 CBC 08/16/2012 07996 CMP 08/16/2012 50532 LIPI D PANEL 08/16/2012 [id number] GF R CALC (RESULT ONLY) 08/16/2012 26175 TSH 08/16/2012 12874 ROUT INE VENIPUNCTURE 09/13/2012 93281 TSH 09/13/2012 05975 HEP C ANTIBODY ([facility]) 09/13/2012 45323 XRAY KNEE LEFT, 1 OR 2 VIEWS 11/05/2013 Results Test Result Range Capillary blood glucose measurement by g lucometer (mass/volume) - 01/27/16 09:26 Capillary blood glucose measurement by glucometer (mas s/volume) 140 mg/dL 70-110 CBC With Differential/Platelet - 7 12:22 WBC 10.1 x10E3/uL 3.4-10.8 RBC 5.10 x10E6/uL 4.14-5.80 Hemoglobin 15.4 g/dL 12.6-17.7 Hematocrit 46.7 % 37.5-51.0 MCV 92 fL 79-97 MCH 30.2 pg 26.6-33.0 MCHC 33.0 g/dL 31.5-35.7 RDW 13.6 % 12.3-15.4 Platelets 242 x10E3/uL 150-379 Neutrophils 59 % Lymphs 35 % Monocytes 5 % Eos 1 % Basos 0 % Neutrophils (Absolute) 5.9 x10E3/uL 1.4- 7.0 Lymphs (Absolute) 3.5 x10E3/uL 0.7-3.1 Monocytes(Absolute) 0.5 x10E3/uL 0.1-0.9 Eos (Absolute) 0.1 x10E3/uL 0.0-0.4 Baso (Absolute) 0.0 x10E3/uL 0.0-0.2 Immature Granulocytes 0 % Immature Grans (Abs) 0.0 x10E3/uL 0.0-0. 1 Comp. Metabolic Panel (14) - 05/24/16 12 :22 Glucose, Serum 117 mg/dL 65-99 BUN 10 mg/dL 6-20 Creatinine, Serum 0.97 mg/dL 0.76-1.27 eGFR If NonAfricn Am 99 mL/min/1.73 >59 eGFR If Africn Am 114 mL/min/1.73 >5 9 BUN/Creatinine Ratio 10 8-19 Sodium, Serum 140 mmol/L 134-144 Potassium, Serum 4.1 mmol/L 3.5-5.2 Chloride, Serum 101 mmol/L 96-106 Carbon Dioxide, Total 25 mmol/L 18-29 Calcium, Serum 9.6 mg/dL 8.7-10.2 Protein, Total, Serum 6.9 g/dL 6.0-8.5 Albumin, Serum 4.7 g/dL 3.5-5.5 Globulin, Total 2.2 g/dL 1.5-4.5 A/G Ratio 2.1 1.1-2.5 Bilirubin, Total 0.3 mg/dL 0.0-1.2 Alkaline Phosphatase, S 95 IU/L 39-117 AST (SGOT) 14 IU/L 0-40 ALT (SGPT) 13 IU/L 0-44 Lipid Panel - 05/24/16 12:22 Cholesterol, Total 174 mg/dL 100-199 Triglycerides 234 mg/dL 0-149 HDL Cholesterol 34 mg/dL >39 VLDL Cholesterol Adan 47 mg/dL 5-40 LDL Cholesterol Calc 93 mg/dL 0-99 MICROALBUMIN/CREATININE RATIO, URINE - 1 04/02/16 15:01 CREATININE, RANDOM URINE 36 mg/dL 20-37 0 MICROALBUMIN 0.5 mg/dL See Note: MICROALBUMIN/CREATININE RATIO, RANDOM URINE 14 mcg /mg creat <30 CULTURE, URINE - 03/08/17 15:33 CULTURE, URINE, ROUTINE SEE NOTE NRG PDM - TRAMADOL - 06/03/17 15:49 Prescribed Drug 1 Ativan(TM) NRG COMMENT NRG Desmethyltramadol 2215 ng/mL <100 medMATCH Desmethyltram CONSISTENT NRG Tramadol 1759 ng/mL <100 medMATCH Tramadol CONSISTENT NRG Prescribed Drug 2 Tramadol NRG Complete blood count (CBC) with automate d white blood cell (WBC) differential - 08/09/17 16:20 Blood leukocytes automated count (number/volume) 14.8 10*3/uL 4.3-11.0 Blood erythrocytes automated count (number/volume) 4.96 10*6/uL 4.35-5.85 Venous blood hemoglobin measurement (mass/volume) 15.0 g/dL 13.3-17.7 Blood hematocrit (volume fraction) 43 % 40-54 Automated erythrocyte mean corpuscular volume 88 [ foz_us] 80-99 Automated erythrocyte mean corpuscular h emoglobin (mass per erythrocyte) 30 pg 25-34 Automated erythrocyte mean corpuscular h emoglobin concentration measurement (mass/volume) 35 g/dL 32-36 Automated erythrocyte distribution width ratio 13. 4 % 10.0- 14.5 Automated blood platelet count (count/volume) 217 10*3/uL 130-400 Automated blood platelet mean volume measurement 10.8 [foz_us] 7.4-10.4 Automated blood neutrophils/100 leukocytes 65 % 42-75 Automated blood lymphocytes/100 leukocytes 27 % 12-44 Blood monocytes/100 leukocytes 6 % 0-12 Automated blood eosinophils/100 leukocytes 2 % 0-10 Automated blood basophils/100 leukocytes 0 % 0-10 Blood neutrophils automated count (number/volume) 9.7 10*3 1.8-7.8 Blood lymphocytes automated count (number/volume) 4.0 10*3 1.0-4.0 Blood monocytes automated count (number/volume) 0. 8 10*3 0.0-1.0 Automated eosinophil count 0.3 10*3/uL 0 .0-0.3 Automated blood basophil count (count/volume) 0.0 10*3/uL 0.0-0.1 Comprehensive metabolic panel - 08/09/17 16:20 Serum or plasma sodium measurement (moles/volume) 135 mmol/L 135-145 Serum or plasma potassium measurement (moles/volume) 4.4 mmol/L 3.6-5.0 Serum or plasma chloride measurement (moles/volume) 102 mmol/L 98-107 Carbon dioxide 25 mmol/L 21-32 Serum or plasma anion gap determination (moles/volume) 8 mmol/L 5-14 Serum or plasma urea nitrogen measurement (mass/volume ) 13 mg/dL 7-18 Serum or plasma creatinine measurement (mass/volume) 0.88 mg/dL 0.60-1.30 Serum or plasma urea nitrogen/creatinine mass ratio 15 NRG Serum or plasma creatinine measurement w ith calculation of estimated glomerular filtration rate > NRG Serum or plasma glucose measurement (mass/volume) 273 mg/dL 70-105 Serum or plasma calcium measurement (mass/volume) 9.1 mg/dL 8.5-10.1 Serum or plasma total bilirubin measurement (mass/volu me) 0.2 mg/dL 0.1-1.0 Serum or plasma alkaline phosphatase fidencio surement (enzymatic activity/volume) 127 U/L 40-136 Serum or plasma aspartate aminotransfera se measurement (enzymatic activity/volume) 9 U/L 5-34 Serum or plasma alanine aminotransferase measurement (enzymatic activity/volume) 16 U/L 0-55 Serum or plasma protein measurement (mass/volume) 7.1 g/dL 6.4-8.2 Serum or plasma albumin measurement (mass/volume) 4.4 g/dL 3.2-4.5 Serum or plasma C reactive protein measu rement (mass/volume) - 08/09/17 16:20 Serum or plasma C reactive protein measurement (mass/v olume) 0.24 mg/dL 0.00-0.50 Blood manual differential performed dete ction - 08/09/17 16:20 Blood monocytes/100 leukocytes 4 % NRG Manual blood segmented neutrophils/100 leukocytes 53 % NRG Blood band neutrophils/100 leukocytes 0 % NRG Manual blood lymphocytes/100 leukocytes 41 % NRG Manual eosinophils/100 leukocytes in nose 1 % NRG Manual blood basophils/100 leukocytes 1 % NRG Blood erythrocyte morphology finding identification NORMAL NRG Capillary blood glucose measurement by g lucometer (mass/volume) - 09/29/17 13:32 Capillary blood glucose measurement by glucometer (mas s/volume) > mg/dL 70-110 Complete blood count (CBC) with automate d white blood cell (WBC) differential - 09/29/17 13:44 Blood leukocytes automated count (number/volume) 8.1 10*3/uL 4.3-11.0 Blood erythrocytes automated count (number/volume) 4.99 10*6/uL 4.35-5.85 Venous blood hemoglobin measurement (mass/volume) 15.2 g/dL 13.3-17.7 Blood hematocrit (volume fraction) 41 % 40-54 Automated erythrocyte mean corpuscular volume 83 [ foz_us] 80-99 Automated erythrocyte mean corpuscular h emoglobin (mass per erythrocyte) 31 pg 25-34 Automated erythrocyte mean corpuscular h emoglobin concentration measurement (mass/volume) 37 g/dL 32-36 Automated erythrocyte distribution width ratio 12. 7 % 10.0- 14.5 Automated blood platelet count (count/volume) 185 10*3/uL 130-400 Automated blood platelet mean volume measurement 12.3 [foz_us] 7.4-10.4 Automated blood neutrophils/100 leukocytes 61 % 42-75 Automated blood lymphocytes/100 leukocytes 31 % 12-44 Blood monocytes/100 leukocytes 6 % 0-12 Automated blood eosinophils/100 leukocytes 2 % 0-10 Automated blood basophils/100 leukocytes 1 % 0-10 Blood neutrophils automated count (number/volume) 4.9 10*3 1.8-7.8 Blood lymphocytes automated count (number/volume) 2.5 10*3 1.0-4.0 Blood monocytes automated count (number/volume) 0. 5 10*3 0.0-1.0 Automated eosinophil count 0.2 10*3/uL 0 .0-0.3 Automated blood basophil count (count/volume) 0.0 10*3/uL 0.0-0.1 Comprehensive metabolic panel - 09/29/17 13:44 Serum or plasma sodium measurement (moles/volume) 125 mmol/L 135-145 Serum or plasma potassium measurement (moles/volume) 5.6 mmol/L 3.6-5.0 Serum or plasma chloride measurement (moles/volume) 93 mmol/L 98-107 Carbon dioxide 21 mmol/L 21-32 Serum or plasma anion gap determination (moles/volume) 11 mmol/L 5-14 Serum or plasma urea nitrogen measurement (mass/volume ) 17 mg/dL 7-18 Serum or plasma creatinine measurement (mass/volume) 1.52 mg/dL 0.60-1.30 Serum or plasma urea nitrogen/creatinine mass ratio 11 NRG Serum or plasma creatinine measurement w ith calculation of estimated glomerular filtration rate 51 NRG Serum or plasma glucose measurement (mass/volume) 867 mg/dL 70-105 Serum or plasma calcium measurement (mass/volume) 9.4 mg/dL 8.5-10.1 Serum or plasma total bilirubin measurement (mass/volu me) 0.4 mg/dL 0.1-1.0 Serum or plasma alkaline phosphatase fidencio surement (enzymatic activity/volume) 135 U/L 40-136 Serum or plasma aspartate aminotransfera se measurement (enzymatic activity/volume) 17 U/L 5-34 Serum or plasma alanine aminotransferase measurement (enzymatic activity/volume) 21 U/L 0-55 Serum or plasma protein measurement (mass/volume) 6.5 g/dL 6.4-8.2 Serum or plasma albumin measurement (mass/volume) 4.1 g/dL 3.2-4.5 Magnesium - 09/29/17 13:44 Magnesium 2.0 mg/dL 1.8-2.4 Serum or plasma amylase measurement (enz ymatic activity/volume) - 09/29/17 13:44 Serum or plasma amylase measurement (enzymatic activit y/volume) 31 U/L 25-125 Lipase - 09/29/17 13:44 Lipase 34 U/L 8-78 Serum or plasma ethanol measurement (mas s/volume) - 09/29/17 13:44 Serum or plasma ethanol measurement (mass/volume) < mg/dL <10 Complete urinalysis with reflex to cultu re - 09/29/17 14:00 Urine color determination YELLOW NRG Urine clarity determination CLEAR NR G Urine pH measurement by test strip 7 5-9 Specific gravity of urine by test strip 1.005 1.016-1.022 Urine protein assay by test strip, semi-quantitative NEGATIVE NEGATIVE Urine glucose detection by automated test strip 4+ NEGATIVE Erythrocytes detection in urine sediment by light micr oscopy NEGATIVE NEGATIVE Urine ketones detection by automated test strip NE GATIVE NEGATIVE Urine nitrite detection by test strip NEGATIVE NEGATIVE Urine total bilirubin detection by test strip NEGA TIVE NEGATIVE Urine urobilinogen measurement by automated test strip (mass/volume) NORMAL NORMAL Urine leukocyte esterase detection by dipstick NEG ATIVE NEGATIVE Automated urine sediment erythrocyte cou nt by microscopy (number/high power field) NONE NRG Automated urine sediment leukocyte count by microscopy (number/high power field) NONE NRG Bacteria detection in urine sediment by light microsco py TRACE NRG Squamous epithelial cells detection in u rine sediment by light microscopy NONE NRG Crystals detection in urine sediment by light microsco py NONE NRG Casts detection in urine sediment by light microscopy NONE NRG Mucus detection in urine sediment by light microscopy NEGATIVE NRG Complete urinalysis with reflex to culture NO NRG Urine drug screening test - 09/29/17 14: 00 Urine phencyclidine detection by screening method NEGATIVE NEGATIVE Urine benzodiazepines detection by screening method NEGATIVE NEGATIVE Urine cocaine detection NEGATIVE NEGATI VE Urine amphetamines detection by screening method N EGATIVE NEGATIVE Urine methamphetamine detection by screening method NEGATIVE NEGATIVE Urine cannabinoids detection by screening method N EGATIVE NEGATIVE Urine opiates detection by screening method NEGATI VE NEGATIVE Urine barbiturates detection NEGATIVE N EGATIVE Screening urine tricyclic antidepressants detection NEGATIVE NEGATIVE Urine methadone detection by screening method NEGA TIVE NEGATIVE Urine oxycodone detection NEGATIVE NEGA TIVE Urine propoxyphene detection NEGATIVE N EGATIVE Capillary blood glucose measurement by g lucometer (mass/volume) - 09/29/17 16:05 Capillary blood glucose measurement by glucometer (mas s/volume) 384 mg/dL 70-110 Capillary blood glucose measurement by g lucometer (mass/volume) - 09/29/17 21:17 Capillary blood glucose measurement by glucometer (mas s/volume) 327 mg/dL 70-110 Capillary blood glucose measurement by g lucometer (mass/volume) - 09/30/17 06:27 Capillary blood glucose measurement by glucometer (mas s/volume) 195 mg/dL 70-110 Complete blood count (CBC) with automate d white blood cell (WBC) differential - 09/30/17 07:00 Blood leukocytes automated count (number/volume) 8.9 10*3/uL 4.3-11.0 Blood erythrocytes automated count (number/volume) 4.72 10*6/uL 4.35-5.85 Venous blood hemoglobin measurement (mass/volume) 14.3 g/dL 13.3-17.7 Blood hematocrit (volume fraction) 40 % 40-54 Automated erythrocyte mean corpuscular volume 85 [ foz_us] 80-99 Automated erythrocyte mean corpuscular h emoglobin (mass per erythrocyte) 30 pg 25-34 Automated erythrocyte mean corpuscular h emoglobin concentration measurement (mass/volume) 36 g/dL 32-36 Automated erythrocyte distribution width ratio 12. 9 % 10.0- 14.5 Automated blood platelet count (count/volume) 189 10*3/uL 130-400 Automated blood platelet mean volume measurement 12.3 [foz_us] 7.4-10.4 Automated blood neutrophils/100 leukocytes 42 % 42-75 Automated blood lymphocytes/100 leukocytes 49 % 12-44 Blood monocytes/100 leukocytes 6 % 0-12 Automated blood eosinophils/100 leukocytes 2 % 0-10 Automated blood basophils/100 leukocytes 0 % 0-10 Blood neutrophils automated count (number/volume) 3.7 10*3 1.8-7.8 Blood lymphocytes automated count (number/volume) 4.4 10*3 1.0-4.0 Blood monocytes automated count (number/volume) 0. 5 10*3 0.0-1.0 Automated eosinophil count 0.2 10*3/uL 0 .0-0.3 Automated blood basophil count (count/volume) 0.0 10*3/uL 0.0-0.1 Comprehensive metabolic panel - 09/30/17 07:00 Serum or plasma sodium measurement (moles/volume) 137 mmol/L 135-145 Serum or plasma potassium measurement (moles/volume) 3.9 mmol/L 3.6-5.0 Serum or plasma chloride measurement (moles/volume) 108 mmol/L 98-107 Carbon dioxide 22 mmol/L 21-32 Serum or plasma anion gap determination (moles/volume) 7 mmol/L 5-14 Serum or plasma urea nitrogen measurement (mass/volume ) 15 mg/dL 7-18 Serum or plasma creatinine measurement (mass/volume) 0.83 mg/dL 0.60-1.30 Serum or plasma urea nitrogen/creatinine mass ratio 18 NRG Serum or plasma creatinine measurement w ith calculation of estimated glomerular filtration rate > NRG Serum or plasma glucose measurement (mass/volume) 213 mg/dL 70-105 Serum or plasma calcium measurement (mass/volume) 8.3 mg/dL 8.5-10.1 Serum or plasma total bilirubin measurement (mass/volu me) 0.5 mg/dL 0.1-1.0 Serum or plasma alkaline phosphatase fidencio surement (enzymatic activity/volume) 102 U/L 40-136 Serum or plasma aspartate aminotransfera se measurement (enzymatic activity/volume) 17 U/L 5-34 Serum or plasma alanine aminotransferase measurement (enzymatic activity/volume) 17 U/L 0-55 Serum or plasma protein measurement (mass/volume) 5.7 g/dL 6.4-8.2 Serum or plasma albumin measurement (mass/volume) 3.6 g/dL 3.2-4.5 CBC - 01/06/18 09:47 WHITE BLOOD CELL COUNT 7.7 Thousand/uL 3 .8-10.8 RED BLOOD CELL COUNT 5.04 Million/uL 4.2 0-5.80 HEMOGLOBIN 15.2 g/dL 13.2-17.1 HEMATOCRIT 45.5 % 38.5-50.0 MCV 90.3 fL 80.0-100.0 MCH 30.2 pg 27.0-33.0 MCHC 33.4 g/dL 32.0-36.0 RDW 13.1 % 11.0-15.0 PLATELET COUNT 250 Thousand/uL 140-400 MPV 11.4 fL 7.5-12.5 ABSOLUTE NEUTROPHILS 3542 cells/uL 1500- 7800 ABSOLUTE LYMPHOCYTES 3403 cells/uL 850-3 900 ABSOLUTE MONOCYTES 477 cells/uL 200-950 ABSOLUTE EOSINOPHILS 231 cells/uL 15-500 ABSOLUTE BASOPHILS 46 cells/uL 0-200 NEUTROPHILS 46 % NRG LYMPHOCYTES 44.2 % NRG MONOCYTES 6.2 % NRG EOSINOPHILS 3.0 % NRG BASOPHILS 0.6 % NRG Encounters ACCT No. Visit Date/Time Discharge Status Pt. Type Provider Facility Loc./Unit Complaint [id number] 05/25/2016 09:14:00 Document Registration [id number] 04/15/2014 15:37:00 04/15/2014 23:59: 59 CLS Outpatient CROW BAEZ MIRELLA Alondra [id number] 11/05/2013 15:47:00 11/05/2013 23:59: 59 CLS Outpatient MIRELLA MARIA APRN [id number] 09/10/2013 15:56:00 09/10/2013 23:59: 59 CLS Outpatient CROW BAEZ MIRELLA Alondra [id number] 08/10/2013 15:34:00 08/10/2013 23:59: 59 CLS Outpatient CROW BAEZ MIRELLA Alondra [id number] 07/11/2013 11:49:00 07/11/2013 23:59: 59 CLS Outpatient [facility]OW [employer], MIRELLA Alondra [id number] 06/06/2013 09:28:00 06/06/2013 23:59: 59 CLS Outpatient ESTER ZIEGLER DO [id number] 02/07/2013 15:46:00 02/07/2013 23:59: 59 CLS Outpatient JODY LACKEY MD [id number] 11/29/2012 10:49:00 11/29/2012 23:59: 59 CLS Outpatient MIRELLA MARIA APRN [id number] 11/24/2012 00:00:00 11/24/2012 23:59: 59 CLS Outpatient MIRELLA MARIA APRN [id number] 09/28/2012 00:00:00 Document Registration [id number] 09/13/2012 14:31:00 Document Registration [id number] 08/16/2012 11:53:00 Document Registration [id number] 07/12/2012 14:17:00 Document Registration [id number] 07/03/2012 13:38:00 Document Registration [id number] 08/23/2018 15:40:00 08/23/2018 23:59:5 9 CLS Outpatient MIRELLA MARIA APRN [facility] [id number] 01/06/2018 11:40:00 Document Registration [id number] 06/03/2017 15:40:00 Document Registration [id number] 03/08/2017 14:40:00 Document Registration [id number] 01/31/2017 15:00:00 Document Registration [id number] 01/25/2018 09:57:00 23:59:59 CLS Outpatient KANNAN BENITES MD [facility] RAD DDU [id number] 10/18/2017 09:06:00 09:30:00 DIS Emergency LYNDA VALERA, BELÉN Dsouza [facility] ER SORE ON TOP OF HEAD,WORTHY [id number] 09/29/2017 15:10:00 018 09:15:00 DIS Inpatient EMMANUELLE VALERA, JUSTEN Zuluaga [facility] 4TH UNCONTROLLED DIABETES;HYPONATREMIA;RENAL INSUFF- [id number] 08/09/2017 13:48:00 018 19:01:00 DIS Emergency JESSICA NATH [facility] ER SORE IN NOSE [id number] 03/24/2017 15:37:00 23:59:59 CLS Outpatient DARYA VALERA, JODY Torrez [facility] RAD M54.12 CERVICAL RADICUL OPATHY [id number] 01/27/2016 08:57:00 016 12:05:00 DIS Outpatient LLUVIA GONZALEZ DO [facility] SDC SCREENING [id number] 01/01/2016 05:41:00 016 23:59:59 CLS Outpatient LLUVIA GONZALEZ DO [facility] PREOP BLOOD IN STOOL [id number] 07/17/2015 06:00:00 016 09:55:00 DIS Outpatient LLUVIA GONZALEZ DO [facility] ANAL WARTS [id number] 07/16/2015 09:38:00 016 10:00:00 DIS Outpatient LLUVIA GONZALEZ DO [facility] PREOP ANAL WARTS [id number] 09/03/2014 16:17:00 015 17:05:00 DIS Emergency BELÉN HOWELL MD [facility] ER BLOOD IN STOOL [id number] 06/05/2013 11:40:00 014 12:36:00 DIS Emergency BELÉN HOWELL MD [facility] ER WANTS CATHETER CHECKED [id number] 06/03/2013 16:48:00 014 18:59:00 DIS Emergency CATA PEARCE APRN [facility] ER URINARY PROBLEMS [id number] 12/13/2012 10:56:00 013 23:59:59 CLS Outpatient [id number] 02/06/2012 18:07:00 Document Registration [id number] 05/22/2011 08:11:00 Document Registration [id number] 05/18/2011 17:37:00 Document Registration
[2019-08-16 16:14] VITALS: BP 113/78
== END 2019-08-16 16:14 | disposition home or self-care (01) ==
LOC: EDUNIT# 12:13 → ER 12:14
DX: E11.65 Type 2 diabetes mellitus with hyperglycemia (principal); F17.210 Nicotine dependence, cigarettes, uncomplicated
CPT/HCPCS: 36415; 80053; 80306; 81000; 82150; 82962; 83690; 83735; 85025

== ENCOUNTER 2019-10-05 22:04 | Observation (INO) | payer SELFPAY ==
[~2019-10-05] VITALS: Ht 172.7 cm; Wt 81.4 kg
[2019-10-05] MEDS ORDERED: LACTATED RINGERS 1,000 ML IV ONE (22:17)
[2019-10-05 22:22] LABS: HEMOGLOBIN 14.3 G/DL (13.3-17.7); MEAN PLATELET VOLUME 10.8 FL (7.4-10.4); RED CELL DISTRIBUTION WIDTH 13.1 % (10.0-14.5); WHITE BLOOD COUNT 15.2 10^3/uL (4.3-11.0)
[2019-10-05] MEDS ORDERED: TETANUS,DIPTH,PERTUSS P/F (BOOSTRIX) 0.5 ML VIAL IM ONE (22:30)
[2019-10-05 22:31] LABS: ALBUMIN 4.3 GM/DL (3.2-4.5); CHLORIDE 104 MMOL/L (98-107); POTASSIUM 3.6 MMOL/L (3.6-5.0); SODIUM 136 MMOL/L (135-145)
[2019-10-05 22:33] LABS: CALCIUM 8.6 MG/DL (8.5-10.1)
[2019-10-05 22:34] LABS: GLUCOSE 245 MG/DL (70-105); TOTAL PROTEIN 7.2 GM/DL (6.4-8.2)
[2019-10-05 22:35] LABS: CARBON DIOXIDE 16 MMOL/L (21-32)
[2019-10-05 22:36] LABS: BILIRUBIN,TOTAL 0.3 MG/DL (0.1-1.0)
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
[2019-10-05 22:38] LABS: ALKALINE PHOSPHATASE 154 U/L (40-136); CREATININE SERUM 0.98 MG/DL (0.60-1.30); GFR ESTIMATED > 60
[2019-10-05 22:39] LABS: BILIRUBIN,DIRECT 0.1 MG/DL (0.0-0.3); BILIRUBIN,INDIRECT 0.2 MG/DL; BUN/CREATININE RATIO 12
[2019-10-05 22:41] LABS: ALANINE AMINOTRANSFERASE 118 U/L (0-55)
--- OUTSIDE RECORDS SUMMARY | 2019-10-05 23:00 | XMS REPORT ---
Author Author [facility]IL[facility] SYSTEMS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 Name Role Phone CROWMIRELLA Unavailable Unavailable LANE, GERALDO Unavailable Unavailable [facility] Unavailable [facility] Unavailable [phone] CROWMIRELLA Unavailable CROW MIRELLA Unavailable CROW MIERLLA Unavailable CROW MIRELLA Unavailable CROW MIRELLA Unavailable CROW MIRELLA Unavailable CROW MIRELLA Unavailable CROW MIRELLA Unavailable CROW MIRELLA Unavailable JODY LACKEY Unavailable LANE, GERALDO Unavailable LANE, GERALDO Unavailable CROW MIRELLA Unavailable NO, LOCAL PHYSICIAN Unavailable Unavailable CROWMIRELLA Unavailable CROW MIRELLA Unavailable JOYD LACKEY Unavailable CROWMIRELLA Unavailable JODY LACKEY Unavailable CROWMIRELLA Unavailable CROW MIRELLA Unavailable CROW MIRELLA Unavailable CROW, MIRELLA Unavailable CROW, MIRELLA Unavailable CROW MIRELLA Unavailable CROW MIRELLA Unavailable CROW MIRELLA Unavailable CROW MIRELLA Unavailable CROW MIRELLA Unavailable CROW, MIRELLA Unavailable CROW, MIRELLA Unavailable CROW, MIRELLA Unavailable JODY LACKEY Unavailable CROW, MIRELLA Unavailable BELÉN HOWELL MD Unavailable Unavailable JODY LACKEY Unavailable CROW, MIRELLA Unavailable CROW, MIRELLA Unavailable [...] Unavailable MIRELLA MARIA Unavailable MIRELLA MARIA Unavailable JESSICA NATH Unavailable Unavailable JUSTEN HANDLEY MD Unavailable Unavailable JUSTEN HANDLEY MD Unavailable Unavailable LLUVIA GONZALEZ DO Unavailable Unavailable KANNAN BENITES MD Unavailable Unavailable MAGO VALERA, CHRIS Cantu Unavailable Unavailable BATOOL MESSER, MANOJ Unavailable Unavailable MIRELLA MARIA Unavailable MIRELLA MARIA Unavailable Unavailable Unavailable Unavailable Unavailable Unavailable Unavailable Unavailable Unavailable Allergies The data below is from unstructured sources Substance Reaction Event Type N.K.D.A. Info Not Available Non Drug Allergy Allergen Type Severity Reaction Status Last Updated NKANo Known Allergies Allergy Mild Active 01/06/09 Allergen Type Severity Reaction Status Last Updated No Known Allergies Allergy Mild Active 01/06/09 No Information Encounters Encounter Date Encounter Type Encounter Diagnosis Care Provider Facility Start: Emergency department BELÉN HOWELL MD [facility] 10-05-2019 patient visit [facility] Start: Emergency department CHRIS [facility] 08-16-2019 patient visit [facility] End: 08-16-2019 Start: Patient encounter MANOJ MESSER [facility] 08-16-2019 procedure [facility] Start: Telephone encounter Type 2 diabetes MIRELLA MARIA [place] 03-20-2019 mellitus without complications Start: [facility] Type 2 diabetes MIRELLA MARIA [facility] 02-26-2019 mellitus with hyperglycemia Start: Patient encounter NA NA [facility] 02-26-2019 procedure Center [facility] ([id number]) Start: Telephone encounter MIRELLA MARIA [facility] 12-04-2018 End: 12-04-2018 Start: [facility] Type 2 diabetes MIRELLA MARIA [facility] 08-23-2018 mellitus with hyperglycemia End: 08-23-2018 Start: Patient encounter NA NA [facility] 08-23-2018 procedure Center [facility] ([id number]) Start: Telephone encounter MIRELLA MARIA [facility] 08-07-2018 End: 08-07-2018 Start: Patient encounter MIRELLA MARIA [facility] 08-01-2018 procedure Center [facility] ([id number]) Start: Patient encounter UNLISTED OTHER Not Availab le ([id number]) 01-25-2018 procedure Start: Patient encounter KANNAN BENITES MD [facility] 01-25-2018 procedure [facility] Start: Patient encounter MIRELLA MARIA [facility] 10-25-2017 procedure Center [facility] ([id number]) Start: Emergency department BELÉN HOWELL Not Available ([id number]) 10-18-2017 patient visit End: 10-18-2017 Start: Patient encounter NA YUE [facility] 10-18-2017 procedure [facility] ([id number]) Start: Emergency department BELÉN HOWELL MD [facility] 10-18-2017 patient visit [facility] End: 10-18-2017 Start: Patient encounter 10-04-2017 procedure Start: Patient encounter 09-29-2017 procedure End: 09-30-2017 Start: Emergency department CHIDI LUIS ENRIQUE DO Not Avai lable ([id number]) 09-29-2017 patient visit Start: Evaluation and JUSTEN HANDLEY MD [facility] 09-29-2017 management of [facility] inpatient End: 09-30-2017 Start: Patient encounter 08-09-2017 procedure Start: Emergency department JESSICA NGUYEN [facility] 08-09-2017 patient visit [facility] End: 08-09-2017 Start: Patient encounter 06-03-2017 procedure Start: Patient encounter JODY LACKEY MD Not Avail able ([id number]) 03-24-2017 procedure Start: Patient encounter NA YUE [facility] 01-27-2016 procedure Center [facility] ([id number]) End: 01-27-2016 Start: Patient encounter LLUVIA GONZALEZ DO [facility] 01-27-2016 procedure [facility] End: 01-27-2016 Start: Patient encounter LLUVIAJANEL GONZALEZ DO Not Availa ble ([id number]) 01-01-2016 procedure Start: Patient encounter LLUVIA GONZALEZ DO [facility] 01-01-2016 procedure [facility] Start: Patient encounter LLUVIA GONZALEZ DO [facility] 07-17-2015 procedure [facility] End: 07-17-2015 Start: Patient encounter LLUVIA GONZALEZ DO [facility] 07-16-2015 procedure [facility] End: 07-16-2015 Start: VISIT MIRELLA MARIA [facility] 04-15-2014 Other Phone: [facility] ([id number]) Start: Emergency department BELÉN HOWELL MD Not Available ([id number]) 06-05-2013 patient visit End: 06-05-2013 Start: Emergency department CATA PEARCE Not Avai lable ([id number]) 06-03-2013 patient visit End: 06-03-2013 Start: Emergency department OSITO SCOTT MD Not Av ailable ([id number]) 02-06-2012 patient visit End: 02-06-2012 ENCOUNTER FOR OTHER Encounter for other LLUVIA GONZALEZ DO [facility] PREPROCEDURAL EXAMIN preprocedural [facility] urg examination ([id number]) Medical Equipment Procedure Code Equipment Code Equipment Original Equipment Iden tifier Dates Text use with pre-filled Start: 12-29-2017 pens to inject medication Goals No Information Immunizations The data below is from unstructured [...] Immunizations No Known Immunizations No Known Immunizations Interventions No Information Medications Medication Drug Dates Sig Sig (Original) Class(es) (Normalized) glipiZIDE 10 mg oral Sulfonylur Start: take 1 tablet Gli piZIDE 10 mg Orally Once a day 1 tablet ea 10-04-2017 by mouth once tablet 24h 1 Sep, 30 day(s) Active (2 sources) daily 3 ml insulin degludec Insulin inject 20 [IU] Tresiba FlexTouch 100 UNIT/ML 100 unt/ml pen injector Analog by subcutaneous Subcu taneous Once a day Inject 20 units (2 sources) injection once 24h 90 days Active daily Tresiba FlexTouch Tresiba FlexTouch Active (1 source) Payers No Information Plan of Treatment Date Care Activity Detail Author Start: (CH) Chronic Health [facility] 12-29-2017 Maintenance Problems Active Problems Problem Problem Date Last Documented Episodic/Chr Provider Classificati Recorded Date onic on Diabetes Hyperglycemia, unspecified 08-18-2019 Episodic MANOJ mellitus BERNOT JAIL GUARD without complication (1 source) E Codes: Home accidents Episodic OSITO Place of SONIA VALERA occurrence (1 source) E Codes: Other external cause status Episodic OSITO Unspecified SONIA VALERA (1 source) Genitourinar Attention to other artificial Chroni c y symptoms opening of urinary tract and ill-defined conditions (4 sources) Other prison (current) use of oral 08-16-2019 Episodi c JESSICA aftercare hypoglycemic drugs WENDY PA (10 sources) Other and Benign neoplasm of ascending colon 08-16-2019 Epis odic LLUVIA GONZALEZ unspecified DO benign neoplasm (5 sources) Other bone Hypertrophy of bone, other site Episodic NA NA disease and musculoskele titus deformities (1 source) Other Disorder of kidney and ureter, 08-16-2019 Episodic JUSTEN diseases of unspecified EMMANUELLE VALERA kidney and ureters (3 sources) Other Personal history of other (healed) Episodic NA NA injuries and physical injury and trauma conditions due to external causes (1 source) Other Corneal foreign body Episodic OSITO injuries and SONIA VALERA conditions due to external causes (1 source) Other Other chronic pain ; Translations: Chronic MIRELLA MARIA nervous [ - Other chronic pain G89.29] Othe r Phone: system [phone] disorders 3 (20 sources) Other Chronic pain ; Translations: [Other Chronic MIRELLA campos chronic pain] Other Phone: system [phone] disorders 3 (20 sources) Other Anesthesia of skin Episodic NA NA nervous system disorders (1 source) Other Pain in left knee 08-16-2019 Episodic KANNAN non-traumati DELMIS rosenberg joint disorders (6 sources) Other Pain in right hip 08-16-2019 Episodic KANNAN non-traumati DELMIS rosenberg joint disorders (6 sources) Other upper Abscess, furuncle and carbuncle of 08-16-2019 Epis odic JESSICA respiratory nose WENDY PA disease (4 sources) Residual Patient's intentional underdosing 08-16-2019 Episo dic JUSTEN codes; of medication regimen due to EMMANUELLE VALERA unclassified financial hardship (3 sources) Skin and Abscess ; Translations: [Cutaneous 08-16-2019 Epis odic BELÉN subcutaneous abscess of head [any part, except Allen RENTERIA MD tissue face]] infections (5 sources) Spondylosis; Other cervical disc displacement, Chronic NA NA intervertebr unspecified cervical region ; al disc Translations: [SPONDYLOSIS W/O disorders; MYELOPATHY OR RADICULOPA] other back problems (1 source) Substance-re Nicotine dependence, cigarettes, 08-16-2019 Chron ic JUSTEN lated uncomplicated EMMANUELLE VALERA disorders (7 sources) Past or Other Problems Problem Problem Date Last Documented Episodic/Chr Provider Classificati Recorded Date onic on E Codes: Foreign body accidentally entering OSITO Other eye and adnexa SONIA VALERA specified and classifiable (1 source) Procedures Date Procedure Procedure Detail Performing Cl inician Start: Gluc bld gluc mntr JODY LACKEY 10-04-2017 dev cleared fda Other Phone: spec home use Start: Hemoglobin JODY LACKEY 10-04-2017 glycosylated a1c Other Phone: Start: Drug screen, MIRELLA MARIA 04-12-2014 qualitate/multi Other Phone: Start: Jose Manuel MARIA 11-05-2013 examination knee Other Phone: 03/22 views Results Test Name Value Interpreta Reference Facilit Date tion Range y Time glucose fingerstick (in house) on null GLUCOSE FINGERSTICK 410 Communi (IN HOUSE) [facility] ([id number]) GLUCOSE FINGERSTICK [id number] Communi (IN HOUSE) [facility] ([id number]) GLUCOSE FINGERSTICK 10/14/2017 Communi (IN HOUSE) [facility] ([id number]) a1c (in house) on null HbA1c (Bld) [Mass 14 % 4.3 - 5.6 Communi fraction] % [facility] ([id number]) A1C (IN HOUSE) 8.5 Communi [facility] ([id number]) A1C (IN HOUSE) 0856 [facility] ([id number]) A1C (IN HOUSE) 05/2019 [facility] ([id number]) laboratory on 2019-08-16 Albumin [Mass/Vol] 4.3 g/dL Negative 3.2-4.5 PENDING 07-20 8-2 g/dL LOC[facility]IO 020 [facility] 08:22-0 ([id number]) 400 ALP [Catalytic 157 U/L High 40-136 U/L PENDING activity/Vol] LOCATIO 020 [facility] 08:22-0 ([id number]) 400 ALT [Catalytic 19 U/L Negative 0-55 U/L PENDING activity/Vol] LOCATIO 020 [facility] 08:22-0 ([id number]) 400 Amorphous sediment RARE ANTONIO URATES Abnormal PENDING LM Ql (Urine sed) LOCATIO 020 N [facility] 09:30-0 ([id number]) 400 Amphetamines Screen Negative Invalid NEGATIVE PENDING Ql (U) Interpreta LOCATIO 020 tion Code N [facility] 09:30-0 ([id number]) 400 Amylase [Catalytic 31 U/L Negative 25-125 U/L PENDING activity/Vol] LOCATIO 020 N [facility] 08:22-0 ([id number]) 400 Anion gap 15 mmol/L High 5-14 PENDING 2 [Moles/Vol] mmol/L LOCATIO 020 [facility] 08:22-0 ([id number]) 400 AST [Catalytic 15 U/L Negative 5-34 U/L PENDING 2 activity/Vol] LOCATIO 020 N [facility] 08:22-0 ([id number]) 400 Bacteria LM Ql Negative Invalid PENDING (Urine sed) Interpreta LOCATIO 020 tion Code N [facility] 09:30-0 ([id number]) 400 Barbiturates Ql (U) Negative Invalid NEGATIVE PENDING Interpreta LOCATIO 020 tion Code N [facility] 09:30-0 ([id number]) 400 Basophils (Bld) 0.0 10*3/uL Negative 0.0-0.1 PENDING 08-15 [#/Vol] 10*3/uL LOCATIO 020 [facility] 08:22-0 ([id number]) 400 Basophils/100 WBC 1 % Negative 0-10 % PENDING 08-15 (Bld) LOCATIO 020 [facility] 08:22-0 ([id number]) 400 Benzodiazepines Ql Negative Invalid NEGATIVE PENDING 07-20 8-2 (U) Interpreta LOCATIO 020 tion Code N [facility] 09:30-0 ([id number]) 400 Bilirubin [Mass/Vol] 0.3 mg/dL Negative 0.1-1.0 PENDING -2 mg/dL LOCATIO 020 [facility] 08:22-0 ([id number]) 400 Bilirubin Ql (U) Negative Invalid NEGATIVE PENDING Interpreta LOCATIO 020 tion Code N [facility] 09:30-0 ([id number]) 400 Calcium [Mass/Vol] 9.3 mg/dL Negative 8.5-10.1 PENDING 05-2 8-2 mg/dL LOCATIO 020 [facility] 08:22-0 ([id number]) 400 Calcium [Mass/Vol] 9.1 mg/dL Negative 8.5-10.1 PENDING -2 8-2 mg/dL LOCATIO 020 [facility] 08:22-0 ([id number]) 400 Cannabinoids Screen Negative Invalid NEGATIVE PENDING Ql (U) Interpreta LOCATIO 020 tion Code N [facility] 09:30-0 ([id number]) 400 Casts LM Ql (Urine NONE Invalid PENDING sed) Interpreta LOCATIO 020 tion Code N [facility] 09:30-0 ([id number]) 400 Chloride [Moles/Vol] 96 mmol/L Low 98-107 PENDING mmol/L LOCATIO 020 N [facility] 08:22-0 ([id number]) 400 Clarity (U) CLEAR Invalid PENDING Interpreta LOCATIO 020 tion Code N [facility] 09:30-0 ([id number]) 400 CO2 [Moles/Vol] 19 mmol/L Low 21-32 PENDING mmol/L LOCATIO 020 N [facility] 08:22-0 ([id number]) 400 Cocaine Ql (U) Negative Invalid NEGATIVE PENDING Interpreta LOCATIO 020 tion Code N [facility] 09:30-0 ([id number]) 400 Color (U) YELLOW Invalid PENDING Interpreta LOCATIO 020 tion Code N [facility] 09:30-0 ([id number]) 400 Creatinine 1.23 mg/dL Negative 0.60-1.30 PENDING [Mass/Vol] mg/dL LOCATIO 020 N [facility] 08:22-0 ([id number]) 400 Creatinine and > PENDING Glomerular LOCATIO 020 filtration N [facility] 08:22-0 rate.predicted panel ([id number]) 400 - Serum, Plasma or Blood Crystals LM Ql PRESENT Abnormal PENDING (Urine sed) LOCATIO 020 N [facility] 09:30-0 ([id number]) 400 Eosinophils (Bld) 0.2 10*3/uL Negative 0.0-0.3 PENDING [#/Vol] 10*3/uL LOCATIO 020 N [facility] 08:22-0 ([id number]) 400 Eosinophils/100 WBC 3 % Negative 0-10 % PENDING (Bld) LOCATIO 020 N [facility] 08:22-0 ([id number]) 400 Erythrocyte 12.5 % Negative 10.0-14.5 PENDING distribution width % LOCATIO 020 (RBC) [Ratio] N [facility] 08:22-0 ([id number]) 400 Glucose [Mass/Vol] mg/dL Critically 70-110 PENDING -2 high mg/dL LOCATIO 020 [facility] 08:22-0 ([id number]) 400 Glucose [Mass/Vol] 749 mg/dL Critically 70-105 PENDING -2 high mg/dL LOCATIO 020 [facility] 08:22-0 ([id number]) 400 Glucose [Mass/Vol] 497 mg/dL Critically 70-110 PENDING -2 high mg/dL LOCATIO 020 [facility] 09:31-0 ([id number]) 400 Glucose [Mass/Vol] 492 mg/dL Critically 70-110 PENDING -2 high mg/dL LOCATIO 020 [facility] 10:25-0 ([id number]) 400 Glucose [Mass/Vol] 500 mg/dL Critically 70-110 PENDING -2 high mg/dL LOCATIO 020 [facility] 11:16-0 ([id number]) 400 Glucose [Mass/Vol] 349 mg/dL High 70-110 PENDING - 8-2 mg/dL LOCATIO 020 [facility] 12:08-0 ([id number]) 400 Glucose Auto test 3+ Abnormal NEGATIVE PENDING 08-15 strip Ql (U) LOCATIO 020 [facility] 09:30-0 ([id number]) 400 Hematocrit (Bld) 45 % Negative 40-54 % PENDING [Volume fraction] LOCATIO 020 [facility] 08:22-0 ([id number]) 400 Hemoglobin (Bld) 16.6 g/dL Negative 13.3-17.7 PENDING 08-15- 2 [Mass/Vol] g/dL LOCATIO 020 [facility] 08:22-0 ([id number]) 400 Ketones Auto test 1+ Abnormal NEGATIVE PENDING 08-15 strip Ql (U) LOCATIO 020 [facility] 09:30-0 ([id number]) 400 Leukocyte esterase Negative Invalid NEGATIVE PENDING 07-20 8-2 Test strip Ql (U) Interpreta LOCATIO 020 tion Code [facility] 09:30-0 ([id number]) 400 Lipase [Catalytic 38 U/L Negative 8-78 U/L PENDING 08-15 activity/Vol] LOCATIO 020 [facility] 08:22-0 ([id number]) 400 Lymphocytes (Bld) 2.8 10*3/uL Negative 1.0-4.0 PENDING [#/Vol] 10*3 LOCATIO 020 N [facility] 08:22-0 ([id number]) 400 Lymphocytes/100 WBC 35 % Negative 12-44 % PENDING (Bld) LOCATIO 020 [facility] 08:22-0 ([id number]) 400 Magnesium [Mass/Vol] 2.0 mg/dL Negative 1.6-2.4 PENDING mg/dL LOCATIO 020 [facility] 08:22-0 ([id number]) 400 MCH (RBC) [Entitic 30 pg Negative 25-34 pg PENDING 07-20-2 mass] LOCATIO 020 [facility] 08:22-0 ([id number]) 400 MCHC (RBC) 37 g/dL High 32-36 g/dL PENDING [Mass/Vol] LOCATIO 020 [facility] 08:22-0 ([id number]) 400 MCV (RBC) [Entitic 83 Negative 80-99 PENDING 07-20-2 vol] [foz_us] LOCATIO 020 [facility] 08:22-0 ([id number]) 400 Methadone Screen Ql Negative Invalid NEGATIVE PENDING (U) Interpreta LOCATIO 020 tion Code [facility] 09:30-0 ([id number]) 400 Methamphetamine (U) Negative Invalid NEGATIVE PENDING [Mass/Vol] Interpreta LOCATIO 020 tion Code [facility] 09:30-0 ([id number]) 400 Monocytes (Bld) 0.4 10*3/uL Negative 0.0-1.0 PENDING 08-15 [#/Vol] 10*3 LOCATIO 020 [facility] 08:22-0 ([id number]) 400 Monocytes/100 WBC 5 % Negative 0-12 % PENDING 08-15 (Bld) LOCATIO 020 [facility] 08:22-0 ([id number]) 400 Mucus Ql (Urine sed) Negative Invalid PENDING 08-15 Interpreta LOCATIO 020 tion Code N [facility] 09:30-0 ([id number]) 400 Neutrophils (Bld) 4.7 10*3/uL Negative 1.8-7.8 PENDING [#/Vol] 10*3 LOCATIO 020 N [facility] 08:22-0 ([id number]) 400 Neutrophils/100 WBC 57 % Negative 42-75 % PENDING (Bld) LOCATIO 020 N [facility] 08:22-0 ([id number]) 400 Nitrite Ql (U) Negative Invalid NEGATIVE PENDING Interpreta LOCATIO 020 tion Code N [facility] 09:30-0 ([id number]) 400 Opiates Screen Ql Negative Invalid NEGATIVE PENDING 08-15 (U) Interpreta LOCATIO 020 tion Code N [facility] 09:30-0 ([id number]) 400 oxyCODONE Ql (U) Negative Invalid NEGATIVE PENDING Interpreta LOCATIO 020 tion Code N [facility] 09:30-0 ([id number]) 400 pH (U) 6.0 [pH] Invalid 5-9 PENDING Interpreta LOCATIO 020 tion Code N [facility] 09:30-0 ([id number]) 400 Phencyclidine Ql (U) Negative Invalid NEGATIVE PENDING Interpreta LOCATIO 020 tion Code N [facility] 09:30-0 ([id number]) 400 Platelet mean volume 11.8 High 7.4-10.4 PENDING (Bld) [Entitic vol] [foz_us] LOCATIO 020 [facility] 08:22-0 ([id number]) 400 Platelets (Bld) 214 10*3/uL Negative 130-400 PENDING 08-15 [#/Vol] 10*3/uL LOCATIO 020 [facility] 08:22-0 ([id number]) 400 Potassium 4.2 mmol/L Negative 3.6-5.0 PENDING [Moles/Vol] mmol/L LOCATIO 020 [facility] 08:22-0 ([id number]) 400 Propoxyphene Ql (U) Negative Invalid NEGATIVE PENDING Interpreta LOCATIO 020 tion Code [facility] 09:30-0 ([id number]) 400 Protein [Mass/Vol] 7.7 g/dL Negative 6.4-8.2 PENDING 07-20 8-2 g/dL LOCATIO 020 N [facility] 08:22-0 ([id number]) 400 Protein Ql (U) Negative Invalid NEGATIVE PENDING Interpreta LOCATIO 020 tion Code N [facility] 09:30-0 ([id number]) 400 RBC (Bld) [#/Vol] 5.48 10*6/uL Negative 4.35-5.85 PENDING 10*6/uL LOCATIO 020 N [facility] 08:22-0 ([id number]) 400 RBC LM.HPF (Urine NONE Invalid PENDING sed) [#/Area] Interpreta LOCATIO 020 tion Code N [facility] 09:30-0 ([id number]) 400 RBC Ql (U) Negative Invalid NEGATIVE PENDING Interpreta LOCATIO 020 tion Code N [facility] 09:30-0 ([id number]) 400 Sodium [Moles/Vol] 130 mmol/L Low 135-145 PENDING mmol/L LOCATIO 020 N [facility] 08:22-0 ([id number]) 400 Specific gravity (U) <= Invalid 1.016-1.02 PENDING 0 [Rel density] Interpreta 2 LOCATIO 020 tion Code N [facility] 09:30-0 ([id number]) 400 Tricyclic Negative Invalid NEGATIVE PENDING antidepressants Interpreta LOCATIO 020 Screen Ql (U) tion Code N [facility] 09:30-0 ([id number]) 400 Urea nitrogen 10 mg/dL Negative 7-18 mg/dL PENDING [Mass/Vol] LOCATIO 020 N [facility] 08:22-0 ([id number]) 400 Urea 8 mg/mg PENDING nitrogen/Creatinine LOCATIO 020 [Mass ratio] N [facility] 08:22-0 ([id number]) 400 Urinalysis complete NO Invalid PENDING W Reflex Culture Interpreta LOCATIO 020 panel - Urine tion Code N [facility] 09:30-0 ([id number]) 400 Urobilinogen (U) 0.2 mg/dL Invalid < = 1.0 PENDING [Mass/Vol] Interpreta mg/dL LOCATIO 020 tion Code N [facility] 09:30-0 ([id number]) 400 WBC (Bld) [#/Vol] 8.2 10*3/uL Negative 4.3-11.0 PENDING 10*3/uL LOCATIO 020 N [facility] 08:22-0 ([id number]) 400 WBC LM.HPF (Urine Invalid [HPF] PENDING sed) [#/Area] Interpreta LOCATIO 020 tion Code N [facility] 09:30-0 ([id number]) 400 not yet categorized on 2019-02-26 Exp date 10/2019 Invalid Communi Interpreta ty tion Code [facility] (12616) Lot 10.7~12.4~0552 Invalid Communi Interpreta ty tion Code [facility] (76431) not yet categorized on 2018-08-23 Exp date 05/2020 Invalid Communi Interpreta ty tion Code [facility] (26862) Lot 12.6~14~0993 Invalid Communi Interpreta ty tion Code [facility] (52883) not yet categorized on 2017-10-04 Exp date 10/14/2017 Invalid Not Interpreta Availab tion Code le (83409) Exp date 05/2019 Invalid Not Interpreta Availab tion Code le (36390) GLU FINGERSTICK 410 Invalid Not Interpreta Availab tion Code le (37081) Lot 14~8.5~0856 Invalid Not Interpreta Availab tion Code le (63521) Lot # [id number] Invalid Not Interpreta Availab tion Code le (23171) not yet categorized on 2017-06-03 COMMENT Not Availab le (90850) medMATCH 6 CONSISTENT Invalid Not Acetylmorphine Interpreta Availab tion Code le (95921) medMATCH Alcohol CONSISTENT Invalid Not Metab Interpreta Availab tion Code le (96499) medMATCH CONSISTENT Invalid Not Aminoclonazepam Interpreta Availab tion Code le (58079) medMATCH Amphetamine CONSISTENT Invalid Not Interpreta Availab tion Code le (35057) medMATCH CONSISTENT Invalid Not Amphetamines Interpreta Availab tion Code le (80249) medMATCH aOH CONSISTENT Invalid Not alprazolam Interpreta Availab tion Code le (80460) medMATCH aOH CONSISTENT Invalid Not midazolam Interpreta Availab tion Code le (61006) medMATCH aOH CONSISTENT Invalid Not triazolam Interpreta Availab tion Code le (56657) medMATCH CONSISTENT Invalid Not Buprenorphine Interpreta Availab tion Code le (56719) medMATCH Cocaine CONSISTENT Invalid Not Metab Interpreta Availab tion Code le (36336) medMATCH CONSISTENT Invalid Not Desmethyltram Interpreta Availab tion Code le (10845) medMATCH Lorazepam CONSISTENT Invalid Not Interpreta Availab tion Code le (28634) medMATCH Marijuana INCONSISTENT Invalid Not Metab Interpreta Availab tion Code le (19954) medMATCH MDMA CONSISTENT Invalid Not Interpreta Availab tion Code le (23713) medMATCH CONSISTENT Invalid Not Methamphetamine Interpreta Availab tion Code le (48634) medMATCH Nordiazepam CONSISTENT Invalid Not Interpreta Availab tion Code le (78836) medMATCH [place],Et CONSISTENT Invalid Not flurazepam Interpreta Availab tion Code le (85257) medMATCH Opiates CONSISTENT Invalid Not Interpreta Availab tion Code le (87806) medMATCH Oxazepam CONSISTENT Invalid Not Interpreta Availab tion Code le (87287) medMATCH Oxycodone CONSISTENT Invalid Not Interpreta Availab tion Code le (72523) medMATCH Temazepam CONSISTENT Invalid Not Interpreta Availab tion Code le (19696) medMATCH Tramadol CONSISTENT Invalid Not Interpreta Availab tion Code le (07960) Prescribed Drug 1 Ativan(TM) Not Availab le (02381) Prescribed Drug 2 Tramadol Not Availab le (61527) laboratory on 2017-06-03 1-Hydroxymidazolam Negative Invalid <50 ng/mL Not (U) [Mass/Vol] Interpreta Availab tion Code le (49730) 6-Monoacetylmorphine Negative Invalid <10 ng/mL Not (6-CHANELL) Ql (U) Interpreta Availab tion Code le (27592) 7-Aminoclonazepam Negative Invalid <25 ng/mL Not (U) [Mass/Vol] Interpreta Availab tion Code le (48053) Alpha Negative Invalid <25 ng/mL Not hydroxyalprazolam Interpreta Availab (U) [Mass/Vol] tion Code le (19499) Alpha Negative Invalid <50 ng/mL Not hydroxytriazolam (U) Interpreta Availab [Mass/Vol] tion Code le (42714) Amphetamine (U) Negative Invalid <250 ng/mL Not [Mass/Vol] Interpreta Availab tion Code le (83605) Amphetamines Ql (U) Negative Invalid <500 ng/mL Not Interpreta Availab tion Code le (20840) Benzodiazepines Ql Positive Abnormal <100 ng/mL Not (U) Availab le (30624) Benzoylecgonine Ql Negative Invalid <150 ng/mL Not (U) Interpreta Availab tion Code le (85195) Buprenorphine Ql (U) Negative Invalid <5 ng/mL Not Interpreta Availab tion Code le (70143) Creatinine (U) 62.3 mg/dL Invalid > or = Not [Mass/Vol] Interpreta 20.0 mg/dL Availab tion Code le (26431) Ethanol Ql (U) Negative Invalid <500 ng/mL Not Interpreta Availab tion Code le (86057) Hydroxyethylflurazep Negative Invalid <50 ng/mL Not am (U) [Mass/Vol] Interpreta Availab tion Code le (64457) LORazepam (U) 874 High <50 ng/mL Not [Mass/Vol] Availab le (59033) Methamphetamine (U) Negative Invalid <250 ng/mL Not [Mass/Vol] Interpreta Availab tion Code le (14715) Methylenedioxymetham Negative Invalid <500 ng/mL Not phetamine Ql (U) Interpreta Availab tion Code le (76502) Nordiazepam (U) Negative Invalid <50 ng/mL Not [Mass/Vol] Interpreta Availab tion Code le (92084) Nortramadol (U) 2215 High <100 ng/mL Not [Mass/Vol] Availab le (22857) Opiates Ql (U) Negative Invalid <100 ng/mL Not Interpreta Availab tion Code le (79370) Oxazepam (U) Negative Invalid <50 ng/mL Not [Mass/Vol] Interpreta Availab tion Code le (35018) Oxidants Ql (U) Negative Invalid <200 Not Interpreta mcg/mL Availab tion Code le (01156) oxyCODONE Ql (U) Negative Invalid <100 ng/mL Not Interpreta Availab tion Code le (18941) pH (U) 7.11 [pH] Invalid 4.5 - 9.0 Not Interpreta Availab tion Code le (41097) Temazepam (U) Negative Invalid <50 ng/mL Not [Mass/Vol] Interpreta Availab tion Code le (74014) Tetrahydrocannabinol 23 High <5 ng/mL Not (U) [Mass/Vol] Availab le (49603) Tetrahydrocannabinol Positive Abnormal <20 ng/mL Not Ql (U) Availab le (28307) traMADol (U) 1759 High <100 ng/mL Not [Mass/Vol] Availab le (00379) laboratory on 2016-05-25 Albumin [Mass/Vol] 4.7 g/dL Invalid 3.5-5.5 Not 03-0 7-2 Interpreta g/dL Availab 017 tion Code le 09:37-0 (00118) 500 Albumin/Globulin 2.1 {ratio} Invalid 1.1-2.5 Not 03-0 7-2 [Mass ratio] Interpreta Availab 017 tion Code le 09:37-0 (90476) 500 ALP [Catalytic 95 U/L Invalid 39-117 Not activity/Vol] Interpreta IU/L Availab 017 tion Code le 09:37-0 (37543) 500 ALT [Catalytic 13 U/L Invalid 0-44 IU/L Not activity/Vol] Interpreta Availab 017 tion Code le 09:37-0 (56873) 500 AST [Catalytic 14 U/L Invalid 0-40 IU/L Not activity/Vol] Interpreta Availab 017 tion Code le 09:37-0 (50084) 500 Basophils (Bld) 0.0 10*3/uL Invalid 0.0-0.2 Not 05-25 [#/Vol] Interpreta x10E3/uL Availab 017 tion Code le 09:35-0 (09287) 500 Basophils/100 WBC 0 % Invalid % Not 05-25 (Bld) Interpreta Availab 017 tion Code le 09:35-0 (00731) 500 Bilirubin [Mass/Vol] 0.3 mg/dL Invalid 0.0-1.2 Not Interpreta mg/dL Availab 017 tion Code le 09:37-0 (92561) 500 Calcium [Mass/Vol] 9.6 mg/dL Invalid 8.7-10.2 Not 03- 7-2 Interpreta mg/dL Availab 017 tion Code le 09:37-0 (98714) 500 Chloride [Moles/Vol] 101 mmol/L Invalid 96-106 Not 0 Interpreta mmol/L Availab 017 tion Code le 09:37-0 (68567) 500 Cholesterol 174 mg/dL Invalid 100-199 Not [Mass/Vol] Interpreta mg/dL Availab 017 tion Code le 09:37-0 (43486) 500 Cholesterol in HDL 34 mg/dL Low >39 mg/dL Not 09-19 [Mass/Vol] Availab 017 le 09:37-0 (49797) 500 Cholesterol in LDL 93 mg/dL Invalid 0-99 mg/dL Not 09-19 [Mass/Vol] Interpreta Availab 017 tion Code le 09:37-0 (89825) 500 Cholesterol in VLDL 47 mg/dL High 5-40 mg/dL Not [Mass/Vol] Availab 017 le 09:37-0 (47293) 500 CO2 [Moles/Vol] 25 mmol/L Invalid 18-29 Not Interpreta mmol/L Availab 017 tion Code le 09:37-0 (62666) 500 Creatinine 0.97 mg/dL Invalid 0.76-1.27 Not [Mass/Vol] Interpreta mg/dL Availab 017 tion Code le 09:37-0 (27402) 500 Eosinophils (Bld) 0.1 10*3/uL Invalid 0.0-0.4 Not 09-19 [#/Vol] Interpreta x10E3/uL Availab 017 tion Code le 09:35-0 (34099) 500 Eosinophils/100 WBC 1 % Invalid % Not 09-19 (Bld) Interpreta Availab 017 tion Code le 09:35-0 (45160) 500 Erythrocyte 13.6 % Invalid 12.3-15.4 Not distribution width Interpreta % Availab 017 (RBC) [Ratio] tion Code le 09:35-0 (47447) 500 GFR/1.73 sq 114 mL/min/{1.73_m2} Invalid >59 Not M.predicted among Interpreta mL/min/1.7 Availab 017 blacks MDRD tion Code 3 le 09:37-0 (S/P/Bld) [Vol (86162) 500 rate/Area] GFR/1.73 sq 99 mL/min/{1.73_m2} Invalid >59 Not 0 M.predicted among Interpreta mL/min/1.7 Availab 017 non-blacks MDRD tion Code 3 le 09:37-0 (S/P/Bld) [Vol (48465) 500 rate/Area] Globulin (S) 2.2 g/dL Invalid 1.5-4.5 Not [Mass/Vol] Interpreta g/dL Availab 017 tion Code le 09:37-0 (57637) 500 Glucose [Mass/Vol] 117 mg/dL High 65-99 Not 03-0 7-2 mg/dL Availab 017 le 09:37-0 (78397) 500 Hematocrit (Bld) 46.7 % Invalid 37.5-51.0 Not [Volume fraction] Interpreta % Availab 017 tion Code le 09:35-0 (50135) 500 Hemoglobin (Bld) 15.4 g/dL Invalid 12.6-17.7 Not [Mass/Vol] Interpreta g/dL Availab 017 tion Code le 09:35-0 (93933) 500 Immature 0.0 10*3/uL Invalid 0.0-0.1 Not 2 granulocytes (Bld) Interpreta x10E3/uL Availab 017 [#/Vol] tion Code le 09:35-0 (26873) 500 Immature 0 % Invalid % Not granulocytes/100 WBC Interpreta Availab 017 (Bld) tion Code le 09:35-0 (61613) 500 Lymphocytes (Bld) 3.5 10*3/uL High 0.7-3.1 Not -2 [#/Vol] x10E3/uL Availab 017 le 09:35-0 (26066) 500 Lymphocytes/100 WBC 35 % Invalid % Not 09-19 (Bld) Interpreta Availab 017 tion Code le 09:35-0 (38769) 500 MCH (RBC) [Entitic 30.2 pg Invalid 26.6-33.0 Not 03-0 7-2 mass] Interpreta pg Availab 017 tion Code le 09:35-0 (87363) 500 MCHC (RBC) 33.0 g/dL Invalid 31.5-35.7 Not [Mass/Vol] Interpreta g/dL Availab 017 tion Code le 09:35-0 (37109) 500 MCV (RBC) [Entitic 92 fL Invalid 79-97 fL Not 03-0 7-2 vol] Interpreta Availab 017 tion Code le 09:35-0 (45419) 500 Monocytes (Bld) 0.5 10*3/uL Invalid 0.1-0.9 Not 05-25 [#/Vol] Interpreta x10E3/uL Availab 017 tion Code le 09:35-0 (80757) 500 Monocytes/100 WBC 5 % Invalid % Not 05-25 (Bld) Interpreta Availab 017 tion Code le 09:35-0 (92521) 500 Neutrophils (Bld) 5.9 10*3/uL Invalid 1.4-7.0 Not 09-19 [#/Vol] Interpreta x10E3/uL Availab 017 tion Code le 09:35-0 (35569) 500 Neutrophils/100 WBC 59 % Invalid % Not 09-19 (Bld) Interpreta Availab 017 tion Code le 09:35-0 (90018) 500 Platelets (Bld) 242 10*3/uL Invalid 150-379 Not 05-25 [#/Vol] Interpreta x10E3/uL Availab 017 tion Code le 09:35-0 (02232) 500 Potassium 4.1 mmol/L Invalid 3.5-5.2 Not [Moles/Vol] Interpreta mmol/L Availab 017 tion Code le 09:37-0 (56912) 500 Protein [Mass/Vol] 6.9 g/dL Invalid 6.0-8.5 Not 03-0 7-2 Interpreta g/dL Availab 017 tion Code le 09:37-0 (70008) 500 RBC (Bld) [#/Vol] 5.10 10*6/uL Invalid 4.14-5.80 Not Interpreta x10E6/uL Availab 017 tion Code le 09:35-0 (13731) 500 Sodium [Moles/Vol] 140 mmol/L Invalid 134-144 Not 09-19 Interpreta mmol/L Availab 017 tion Code le 09:37-0 (22188) 500 Triglyceride 234 mg/dL High 0-149 Not [Mass/Vol] mg/dL Availab 017 le 09:37-0 (13260) 500 Urea nitrogen 10 mg/dL Invalid 6-20 mg/dL Not [Mass/Vol] Interpreta Availab 017 tion Code le 09:37-0 (03947) 500 Urea 10 mg/mg Invalid 8-19 Not nitrogen/Creatinine Interpreta Availab 017 [Mass ratio] tion Code le 09:37-0 (32247) 500 WBC (Bld) [#/Vol] 10.1 10*3/uL Invalid 3.4-10.8 Not Interpreta x10E3/uL Availab 017 tion Code le 09:35-0 (71308) 500 Social History No Information Vital Signs Date Time Vital Sign Value Performing Clinician Facil ity 10-25-2017 Body height 172.72 cm [facility] [place] [facility] 16:0 Other Phone: [facility] [place] () 10-25-2017 Body mass index 28.54 kg/m2 [facility] 16: (BMI) [Ratio] Other Phone: [facility] [place] ([id number]) 10-25-2017 Body temperature 98.2 [degF] [facility] 16:00 Other Phone: [facility] [place] ([id number]) 10-25-2017 Body weight 85.14 kg [facility] [place] alth 16:000400 Other Phone: [facility] ([id number]) 10-04-2017 Body height 172.72 cm [facility] 16:00-0400 Other Phone: [facility] [place] ([id number]) 10-04-2017 Body mass index 26.48 kg/m2 [facility] 16:00-0400 (BMI) [Ratio] Other Phone: [facility] [place] ([id number]) 10-04-2017 Body temperature 98.3 [degF] [facility] 16:00-0400 Other Phone: [facility] [place] ([id number]) 10-04-2017 Body weight 79.02 kg [facility] 16:000400 Other Phone: [facility] [place] ([id number]) 04-12-2014 Body height 172.72 cm [facility] 15:44-0500 Other Phone: [facility] [place] ([id number]) 04-12-2014 Body temperature 98.7 [degF] [facility] 15:44-0500 Other Phone: [facility] [place] ([id number]) 04-12-2014 Body weight 107.05 kg [facility] 15:44-0500 Other Phone: [facility] [place] ([id number]) 11-05-2013 Body height 172.72 cm [facility] 16:47-0400 Other Phone: [facility] [place] ([id number]) 11-05-2013 Body temperature 97 [degF] [facility] 16:47-0400 Other Phone: [facility] [place] ([id number]) 11-05-2013 Body weight 107.55 kg [facility] 16:47-0400 Other Phone: [facility] [place] ([id number]) 09-10-2013 Body height 172.72 cm [facility] 17:56-0400 Other Phone: [facility] [place] ([id number]) 09-10-2013 Body temperature 98.3 [degF] [facility] 17:56-0400 Other Phone: [facility] [place] ([id number]) 09-10-2013 Body weight 107.19 kg [facility] 17:56-0400 Other Phone: [facility] [place] ([id number]) 08-10-2013 Body height 172.72 cm [facility] 17:340400 Other Phone: [facility] [place] ([id number]) 08-10-2013 Body temperature 96.8 [degF] [facility] 17:34-0400 Other Phone: [facility] [place] ([id number]) 08-10-2013 Body weight 107.05 kg [facility] 17:34-0400 Other Phone: [facility] [place] ([id number]) 02-07-2013 Body height 172.72 cm [facility] 15:46-0500 Other Phone: [facility] [place] ([id number]) 02-07-2013 Body temperature 97.9 [degF] [facility] 15:46-0500 Other Phone: [facility] [place] ([id number]) 02-07-2013 Body weight 104.06 kg [facility] 15:46-0500 Other Phone: [facility] [place] ([id number]) 11-29-2012 Body height 172.72 cm [facility] 11:49-0400 Other Phone: [facility] [place] ([id number]) 11-29-2012 Body temperature 97.8 [degF] [facility] 11:49-0400 Other Phone: [facility] [place] [facility] ([id number]) 11-29-2012 Body weight 98.48 kg [facility] 11:49-0400 Other Phone: [facility] [place] ([id number]) 07-12-2012 Body height 172.72 cm [facility] 15:17-0400 [facility] ([id number]) 07-12-2012 Body temperature 98.6 [degF] [facility] 15:170400 [facility] ([id number]) 07-12-2012 Body weight 95.66 kg [facility] 15:170 [facility] ([id number]) Functional Status The data below is from unstructured sources Query Response Date Anam rded Comprehension Ability Understands Co ncepts September 29, 2017 4:45pm Mental Status No Information History general Narrative - Reported Note Date & Note Facility Type History [facility] ([id number]) Reported Summary Purpose eClinicalWorks SubmissioneClinicalWorks SubmissioneClinicalWorks SubmissioneClinicalWorks SubmissioneClinicalWorks [...] Directives No 3:07pm Health Care Power of Archery Equipment Hay Sorter No 08/09/17 3:07pm Organ Donor No 08/09/17 3:07pm Resuscitation Status Full Code 08/09/17 3:07pm Directive Response Recor ded Date/Time Advance Directives No 4:45pm Health Care Power of Archery Equipment Hay Sorter No 09/29/17 4:45pm Organ Donor No 09/29/17 4:45pm Resuscitation Status Full Code 09/29/17 4:45pm Directive Response Recor ded Date/Time Advance Directives No 9:16am Health Care Power of Archery Equipment Hay Sorter No 10/18/17 9:16am Organ Donor No 10/18/17 9:16am Resuscitation Status Full Code 10/18/17 9:16am Discharge Instructions No hospital discharge instructions.No hospital discharge instructions.No hospital discharge instruction information available.No hospital discharge instruction information available.No hospital discharge instruction information available.No hospital discharge instruction information available. Additional Source Comments This clinical document has been generated using [employer] software that has been certified by the Office of the National Coordinator for Health Information Technology (ONC 15.99.04.3023.Diam.31.00.0.188062) and the National Committee for Chemical Sales Representative (NCQA, as an eMeasure certified technology). FOR [...] BASED ON T HE PRIMARY CLINICAL RECORDS. [employer] provides no warranty or guara ntee of the accuracy or completeness of information in this document.The followi ng information is based on time limited clinical information UNRECOGNIZED CONTENT PROVIDED BELOW FOR UNRECOGNIZED SECTION REASON FOR VISIT Hospital f/u -Via Susan- Elevated BS 900. Is out of strips. He ran out CYPHERDAMIALS3 week follow up, was in [facility] for spider bite to back of head. Domo Fulton RNRefill [id number]
--- OUTSIDE RECORDS SUMMARY | 2019-10-05 23:00 | XMS REPORT ---
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65 Active 601249800 Problem Hypertension, benign I10 Active 29670324 Problem Other chronic pain G89.29 Active 8 6534052 Problem Shoulder pain, right M25.511 Active 60225489 Problem Cervical radiculopathy M54.12 Active 02043803 Problem History of urethral stricture Z87.448 Active 746381430 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 252622216 Problem Type 2 diabetes mellitus without complications E11 .9 Active [id number] ALLERGIES No Information ENCOUNTERS Encounter Location Date Diagnosis [place] [address] [facility] [id number] [address] [place] [address] Sep, [facility] [address] [facility] [id number] [address] [place] [address] Aug, Diabetes type 2, uncontrolle d E11.65 [facility] [address] [facility] [id number] [address] [place] [address] July, Controlled type 2 diabetes m ellitus without complication, without long-term current use of insulin E11.9 and Diabetes type 2, uncontrolled E11.65 [place] [address] [facility] [id number] [address] [place] [address] Feb, Controlled type 2 diabetes m ellitus without complication, without long-term current use of insulin E11.9 [facility] [address] [facility] [id number] [address] [place] [address] Feb, Uncontrolled type 2 diabetes mellitus with hyperglycemia E11.65 ; Other chronic pain G89.29 ; Pain in right shoulder M25.511 and Thoracic spine pain M54.6 [facility] [address] [facility] [id number] [address] [place] [address] Nov, [place] [address] [facility] [id number] [address] [place] [address] Aug, Diabetes type 2, uncontrolle d E11.65 [place] [address] [facility] [id number] [address] [place] [address] July, [facility] [address] [place] [id number] [place] [id number] July, Dental examination Z01.20 an d Caries K02.9 [place] [address] [facility] [id number] [address] [place] [address] Jun, Controlled type 2 diabetes m ellitus without complication, without long-term current use of insulin E11.9 [place] [address] [facility] [id number] [address] [place] [address] May, Controlled type 2 diabetes m ellitus without complication, without long-term current use of insulin E11.9 [place] [address] [id number] [address] [place] [address] Apr, [place] [address] [facility] [id number] [address] [place] [address] Mar, Controlled type 2 diabetes m ellitus without complication, without long-term current use of insulin E11.9 [place] [address] [facility] [id number] [address] [place] [address] Jan, [place] [address] [id number] [address] [place] [address] Dec, Diabetes type 2, uncontrolle d E11.65 [place] [address] [id number] [address] [place] [address] Dec, Type 2 diabetes mellitus wit hout complications E11.9 ; correction current use of insulin Z79.4 and Cervicalgia M54.2 [place] [address] [id number] [address] [place] [address] Dec, Type 2 diabetes mellitus wit hout complications E11.9 ; 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 and Cervicalgia M54.2 [place] [address] [facility] [id number] [address] [place] [address] Dec, Controlled type 2 diabetes m erika without complication, without long-term current use of insulin E11.9 [place] [address] [facility] [id number] [address] [place] [address] Nov, [place] [address] [facility] [id number] [address] [place] [address] Oct, Diabetes type 2, uncontrolle d E11.65 [place] [address] [facility] [id number] [address] [place] [address] Sep, Diabetes type 2, uncontrolle d E11.65 [place] [address] [facility] [id number] [address] [place] [address] Jun, Controlled type 2 diabetes m yaraitus without complication, without long-term current use of insulin E11.9 [place] [address] [id number] [address] [place] [address] May, [place] [address] [facility] [id number] [address] [place] [address] 16 May, 2017 Radiculopathy of cervical re gion M54.12 [facility] [address] [facility] [id number] [address] [place] [address] May, Controlled type 2 diabetes m ellitus without complication, without long-term current use of insulin E11.9 [facility] [address] [id number] [address] [place] [address] May, [facility] [address] [id number] [address] [place] [address] May, Controlled type 2 diabetes m ellitus without complication, without long-term current use of insulin E11.9 [facility] [address] [id number] [address] [place] [address] May, Controlled type 2 diabetes m ellitus without complication, without long-term current use of insulin E11.9 [facility] [address] [id number] [address] [place] [address] May, Controlled type 2 diabetes m ellitus without complication, without long-term current use of insulin E11.9 [facility] [address] [id number] [address] [place] [address] Apr, [facility] [address] [id number] [address] [place] [address] Apr, Controlled type 2 diabetes m ellitus without complication, without long-term current use of insulin E11.9 [facility] [address] [id number] [address] [place] [address] Apr, [facility] [address] [id number] [address] [place] [address] Apr, Controlled type 2 diabetes m ellitus without complication, without long-term current use of insulin E11.9 [facility] [address] [id number] [address] [place] [address] Mar, [facility] [address] [id number] [address] [place] [address] Mar, Radiculopathy of cervical re gion M54.12 [facility] [address] [id number] [address] [place] [id number] Mar, Controlled type 2 diabetes m ellitus without complication, without long-term current use of insulin E11.9 [facility] [address] [id number] [address] [place] [address] 19 Feb, 2017 Cervical radiculopathy M54.1 2 ; Acute cystitis without hematuria N30.00 and History of urethral stricture Z87.448 [facility] [address] [id number] [address] [place] [address] 11 Feb, 2017 Controlled type 2 diabetes m ellitus without complication, without long-term current use of insulin E11.9 [facility] [address] [id number] [address] [place] [address] 05 Feb, 2017 [facility] [address] [id number] [address] [place] [address] Jan, Diabetes type 2, uncontrolle d E11.65 [facility] [address] [id number] [address] [place] [address] Jan, [facility] [address] [id number] [address] [place] [address] Jan, Controlled type 2 diabetes m ellitus without complication, without long-term current use of insulin E11.9 ; Chest wall pain R07.89 and Thoracic spine pain M54.6 [place] [address] [id number] [address] [place] [address] Dec, [facility] [address] [facility] [id number] [address] [place] [address] Dec, [facility] [address] [id number] [address] [place] [address] Nov, [facility] [address] [facility] [id number] [address] [place] [address] Nov, [facility] [address] [facility] [id number] [address] [place] [address] 13 Nov, 2016 Trichomonas exposure Z20.2 [facility] [address] [facility] [id number] [address] [place] [address] Oct, [facility] [address] [id number] [address] [place] [address], [place] [address] Oct, [facility] [address] [id number] [address] [place] [address], [place] [address] Oct, [facility] [address] [id number] [address] [place] [address], [place] [address] Oct, [facility] [address] [id number] [address] [place] [address], [place] [address] Sep, [facility] [address] [id number] [address] [place] [address], [place] [address] Sep, [facility] [address] [id number] [address] [place] [address], [place] [address] Aug, [facility] [address] [id number] [address] [place] [address], [place] [address] Aug, [facility] [address] [id number] [address] [place] [address], [place] [address] Aug, [facility] [address] [id number] [address] [place] [address], [place] [address] Aug, [facility] [address] [id number] [address] [place] [address], [place] [address] July, Diabetes type 2, controlled E11.9 [facility] [address] [id number] [address] [place] [address], [place] [address] July, [facility] [address] [id number] [address] [place] [address], [place] [address] July, [facility] [address] [id number] [address] [place] [address], [place] [address] July, [facility] [address] [id number] [address] [place] [address], [place] [address] July, [facility] [address] [id number] [address] [place] [address], [place] [address] Jun, [facility] [address] [id number] [address] [place] [address], [place] [address] Jun, [facility] [address] [id number] [address] [place] [address] May, [facility] [address] [id number] [address] [place] [address] May, [facility] [address] [id number] [address] [place] [address] May, [facility] [address] [id number] [address] [place] [address] May, Controlled type 2 diabetes m yaraitus without complication, without long-term current use of insulin E11.9 [facility] [address] [id number] [address] [place] [address] Apr, [facility] [address] [id number] [address] [place] [address] Apr, [facility] [address] [id number] [address] [place] [id number] Mar, [facility] [address] [id number] [address] [place] [address] Mar, [facility] [address] [id number] [address] [place] [address] Feb, [facility] [address] [id number] [address] [place] [address] Feb, [facility] [address] [id number] [address] [place] [address] Jan, [facility] [address] [id number] [address] [place] [address] Jan, [facility] [address] [id number] [address] [place] [address] Jan, [facility] [address] [id number] [address] [place] [address] Dec, [facility] [address] [id number] [address] [place] [address] Dec, [facility] [address] [id number] [address] [place] [address] Dec, [facility] [address] [id number] [address] [place] [id number] 29 Nov, 2015 Diabetes type 2, uncontrolle d E11.65 [facility] [address] [id number] [address] [place] [address] Nov, [facility] [address] [id number] [address] [place] [address] Nov, [facility] [address] [id number] [address] [place] [address] Oct, [facility] [address] [id number] [address] [place] [id number] Oct, [facility] [address] [id number] [address] [place] [address] Sep, Controlled type 2 diabetes m ellitus without complication, without long-term current use of insulin E11.9 [facility] [address] [id number] [address] [place] [address] Sep, [facility] [address] [id number] [address] [place] [address] Sep, [facility] [address] [id number] [address] [place] [address] Sep, [facility] [address] [id number] [address] [place] [address] Sep, [facility] [address] [id number] [address] [place] [address] Aug, Diabetes type 2, controlled E11.9 ; Anxiety F41.9 ; Carpal tunnel syndrome, left upper limb G56.02 and Carpal tunnel syndrome, right upper limb G56.01 [facility] [address] [id number] [address] [place] [address] Aug, Urethritis N34.2 [facility] [address] [id number] [address] [place] [address] Aug, [facility] [address] [id number] [address] [place] [address] July, Genital warts A63.0 [facility] [address] [id number] [address] [place] [address] July, [facility] [address] [id number] [address] [place] [address] July, Genital warts A63.0 [facility] [address] [id number] [address] [place] [address] July, Anxiety F41.9 [facility] [address] [id number] [address] [place] [address] Jun, Genital warts A63.0 [facility] [address] [id number] [address] [place] [address] Jun, Anxiety F41.9 [facility] [address] [id number] [address] [place] [address] May, Genital warts A63.0 and Diab etes type 2, uncontrolled E11.65 [facility] [address] [id number] [address] [place] [address] May, [facility] [address] [id number] [address] [place] [address] May, [facility] [address] [id number] [address] [place] [address] Apr, [facility] [address] [id number] [address] [place] [address] Apr, [facility] [address] [id number] [address] [place] [address] Apr, Diabetes type 2, controlled E11.9 [facility] [address] [id number] [address] [place] [address] Apr, Genital warts A63.0 [facility] [address] [id number] [address] [place] [address] Apr, [facility] [address] [facility] [id number] [address] [place] [address] Apr, Diabetes type 2, uncontrolle d E11.65 and Genital warts A63.0 [facility] [address] [id number] [address] [place] [address] Apr, [facility] [address] [facility] [id number] [address] [place] [address] Mar, [facility] [address] [facility] [id number] [address] [place] [id number] Mar, [facility] [address] [facility] [id number] [address] [place] [address] Mar, Family history of diabetes m ellitus V18.0 and Weight loss R63.4 [facility] [address] [facility] [id number] [address] [place] [address] Mar, Genital warts A63.0 and Fami ly history of diabetes mellitus V18.0 [facility] [address] [facility] [id number] [address] [place] [address] Feb, [facility] [address] [facility] [id number] [address] [place] [address] Jan, [facility] [address] [facility] [id number] [address] [place] [address] Jan, Perianal venereal warts A63. 0 [facility] [address] [facility] [id number] [address] [place] [address] Jan, Urethritis N34.2 and Anxiety F41.9 [facility] [address] [facility] [id number] [address] [place] [address] Jan, [facility] [address] [id number] Jan, Urinary tract infection, sit e unspecified N39.0 [place] [address] [address] Jan, [place] [address] [address] Dec, [place] [address] [address] Dec, HPV (human papilloma virus) anogenital infection A63.0 ; Anxiety F41.9 and Gastroesophageal reflux disease without esophagitis K21.[address] [id number] Sep, Blood in stool 578.[address] [address] Aug, Blood in stool 578.1 [place] [address] [address] Aug, Anxiety 300.00 and Blood in stool 578.[address] [address] July, [place] [address] [address] July, Family history of diabetes m ellitus V18.[address] [address] July, Family history of diabetes m ellitus V18.0 ; Family history of thyroid disease V18.19 ; Polyuria 788.42 ; Polydipsia 783.5 ; Alopecia 704.00 and Fatigue 780.79 [place] [address] [address] Jun, [place] [address] [address] Jun, [facility] [address] [id number] [address] [place] [address], [place] [address] Mar, [facility] [address] [id number] [address] [place] [address], [place] [address] Mar, [facility] [address] [id number] [address] [place] [address], [place] [address] Mar, [facility] [address] [id number] [address] [place] [address], [place] [address] Mar, [facility] [address] [id number] [address] [place] [address], [place] [address] Mar, [facility] [address] [id number] [address] [place] [address], [place] [address] Mar, [facility] [address] [id number] [address] [place] [address], [place] [address] Mar, [facility] [address] [id number] [address] [place] [address], [place] [address] Mar, [facility] [address] [id number] [address] [place] [address], [place] [address] Mar, [facility] [address] [id number] [address] [place] [address], [place] [address] Mar, [facility] [address] [id number] [address] [place] [address], [place] [address] Feb, [facility] [address] [id number] [address] [place] [address], [place] [address] Feb, [facility] [address] [id number] [address] [place] [address], [place] [address] Jan, [facility] [address] [id number] [address] [place] [address], [place] [address] Jan, [facility] [address] [id number] [address] [place] [address], [place] [address] Jan, [facility] [address] [id number] [address] [place] [address], [place] [address] Jan, [facility] [address] [id number] [address] [place] [address], [place] [address] Dec, [facility] [address] [id number] [address] [place] [address], [place] [address] Dec, [facility] [address] [id number] [address] [place] [address], [place] [address] Nov, [facility] [address] [id number] [address] [place] [address], [place] [id number] Nov, [facility] [address] [id number] [address] [place] [address], [place] [id number] Oct, [facility] [address] [id number] [address] [place] [address], [place] [id number] Oct, [facility] [address] [id number] [address] [place] [address], [place] [id number] Oct, [facility] [address] [id number] [address] [place] [address], [place] [id number] Oct, [facility] [address] [id number] [address] [place] [address], [place] [id number] Oct, [facility] [address] [id number] [address] [place] [address], [place] [id number] Oct, [facility] [address] [id number] [address] [place] [address], [place] [id number] Oct, [facility] [address] [id number] [address] [place] [address], [place] [id number] Oct, [facility] [address] [id number] [address] [place] [address], [place] [id number] Sep, [facility] [address] [id number] [address] [place] [address], [place] [id number] Sep, [facility] [address] [id number] [address] [place] [address], [place] [id number] Sep, [facility] [address] [id number] [address] [place] [address], [place] [id number] 15 Sep, 2013 [facility] [address] [id number] [address] [place] [address], [place] [id number] Aug, [facility] [address] [id number] [address] [place] [address], [place] [id number] Aug, [facility] [address] [id number] [address] [place] [address], [place] [id number] Aug, [facility] [address] [id number] [address] [place] [address], [place] [id number] Aug, [facility] [address] [id number] [address] [place] [address], [place] [id number] July, [facility] [address] [id number] [address] [place] [address], [place] [id number] July, [facility] [address] [id number] [address] [place] [address], [place] [id number] July, [facility] [facility] [address] [id number] [address] [place] [address], [place] [id number] July, [facility] [address] [id number] [address] [place] [address], [place] [id number] July, [facility] [address] [id number] [address] [place] [address], [place] [id number] July, [facility] [address] [id number] [address] [place] [address], [place] [id number] Jun, [facility] [address] [id number] [address] [place] [address], [place] [id number] Jun, [facility] [address] [id number] [address] [place] [address], [place] [id number] Jun, [facility] [address] [id number] [address] [place] [address], [place] [id number] Jun, [facility] [address] [id number] [address] [place] [address], [place] [id number] Jun, [facility] [address] [id number] [address] [place] [address], [place] [id number] 14 Jun, 2013 [facility] [address] [id number] [address] [place] [address], [place] [id number] 14 Jun, 2013 [facility] [address] [id number] [address] [place] [address], [place] [id number] 14 Jun, 2013 [facility] [address] [id number] [address] [place] [address], [place] [id number] 19 May, 2013 [facility] [address] [id number] [address] [place] [address], [place] [id number] 19 May, 2013 [facility] [address] [id number] [address] [place] [address], [place] [id number] 18 May, 2013 [facility] [address] [id number] [address] [place] [address], [place] [id number] Apr, [facility] [address] [id number] [address] [place] [address], [place] [id number] Apr, [facility] [address] [id number] [address] [place] [address], [place] [id number] Apr, [facility] [address] [id number] [address] [place] [address], [place] [id number] Apr, [facility] [address] [id number] [address] [place] [address], [place] [id number] Mar, [facility] [address] [id number] [address] [place] [address], [place] [id number] Mar, [facility] [address] [id number] [address] [place] [address], [place] [id number] Mar, [facility] [address] [id number] [address] [place] [address], [place] [id number] Mar, [facility] [address] [id number] [address] [place] [address], [place] [id number] Mar, [facility] [address] [id number] [address] [place] [address], [place] [id number] Mar, [facility] [address] [id number] [address] [place] [address], [place] [id number] Feb, [facility] [address] [id number] [address] [place] [address], [place] [id number] Feb, [facility] [address] [id number] [address] [place] [address], [place] [id number] Jan, [facility] [address] [id number] [address] [place] [address], [place] [id number] Jan, [facility] [address] [id number] [address] [place] [address], [place] [id number] Jan, [facility] [address] [id number] [address] [place] [address], [place] [id number] Jan, [facility] [address] [id number] [address] [place] [address], [place] [id number] Jan, [facility] [address] [id number] [address] [place] [address], [place] [id number] Jan, [facility] [address] [id number] [address] [place] [address], [place] [id number] Jan, [facility] [address] [id number] [address] [place] [address], [place] [id number] Dec, [facility] [address] [id number] [address] [place] [address], [place] [id number] Dec, [facility] [address] [id number] [address] [place] [address], [place] [id number] Nov, [facility] [address] [id number] [address] [place] [address], [place] [id number] Nov, [facility] [address] [id number] [address] [place] [address], [place] [id number] Nov, [facility] [address] [id number] [address] [place] [address], [place] [id number] Oct, [facility] [address] [id number] [address] [place] [address], [place] [id number] Oct, [facility] [address] [id number] [address] [place] [address], [place] [id number] Oct, [facility] [address] [id number] [address] [place] [address], [place] [id number] Oct, [facility] [address] [id number] [address] [place] [address], [place] [id number] Sep, [facility] [address] [id number] [address] [place] [address], [place] [id number] Sep, [facility] [address] [id number] [address] [place] [address], [place] [id number] Aug, [facility] [address] [id number] [address] [place] [address], [place] [id number] Aug, [facility] [address] [id number] [address] [place] [address], [place] [id number] Aug, [facility] [address] [id number] [address] [place] [address], [place] [id number] Aug, [facility] [address] [id number] [address] [place] [address], [place] [id number] July, [facility] [address] [id number] [address] [place] [address], [place] [id number] July, [facility] [address] [id number] [address] [place] [address], [place] [id number] July, [facility] [address] [id number] [address] [place] [address], [place] [id number] July, [facility] [address] [id number] [address] [place] [address], [place] [id number] Jun, [facility] [address] [id number] [address] [place] [address], [place] [id number] Jun, [facility] [address] [id number] [address] [place] [address], [place] [id number] Feb, [facility] [address] [facility] [id number] [address] [address] Feb, [facility] [address] [facility] [id number] [address] [place] [id number] Mar, IMMUNIZATIONS No Known Immunizations SOCIAL HISTORY [...]
--- OUTSIDE RECORDS SUMMARY | 2019-10-05 23:00 | XMS REPORT ---
Author Author Joseph MARIA Organization [facility] Address [address] [place] [address] Care Team Providers Care Supervisor Laboratory Name Role Phone CROWMIRELLA Unavailable PROBLEMS Type Condition ICD9-CM Code QTV00-FX Code Onset Dates Condition S tatus SNOMED Code Problem Mood disorder F39 Active 833941 05 Problem Low back pain M54.5 Active 689103 005 Problem Acquired hypothyroidism E03.9 Active 217785844 Problem Diabetes type 2, uncontrolled E11.65 Active 975569002 Problem Diabetes type 2, controlled E11.9 Ac tive 78378959 Problem Controlled type 2 diabetes m ellitus without complication, without long- term current use of insulin E11.9 Active 124029538 Problem Uncontrolled type 2 diabetes mellitus with hyperglycemia E11.65 Active 582428725 Problem Hypertension, benign I10 Active 50245209 Problem Other chronic pain G89.29 Active 8 2164606 Problem Shoulder pain, right M25.511 Active 44795800 Problem Cervical radiculopathy M54.12 Active 07405798 Problem History of urethral stricture Z87.448 Active 492380281 Problem intermediate manager current use of insulin Z79.4 Active 039348302 Problem Type 2 diabetes mellitus without complications E11 .9 Active 519994370 ALLERGIES No Information ENCOUNTERS Encounter Location Date Diagnosis [place] [address] [facility] [id number] [address] [place] [address] Sep, [facility] [address] [facility] [id number] [address] [place] [address] Aug, Diabetes type 2, uncontrolle d E11.65 [facility] [address] [facility] [id number] [address] [place] [address] July, Controlled type 2 diabetes m ellitus without complication, without long-term current use of insulin E11.9 and Diabetes type 2, uncontrolled E11.65 [place] [address] [facility] [id number] [address] [place] [address] Feb, Controlled type 2 diabetes m ellitus without complication, without long-term current use of insulin E11.9 [facility] [address] [facility] [id number] [address] [place] [address] Feb, Uncontrolled type 2 diabetes mellitus with hyperglycemia E11.65 ; Other chronic pain G89.29 ; Pain in right shoulder M25.511 and Thoracic spine pain M54.6 [facility] [address] [facility] [id number] [address] [place] [address] Nov, [place] [address] [facility] [id number] [address] [place] [address] Aug, Diabetes type 2, uncontrolle d E11.65 [place] [address] [facility] [id number] [address] [place] [address] July, [facility] [address] [place] [id number] [place] [address] [id number] July, Dental examination Z01.20 an d Caries K02.9 [place] [address] [facility] [id number] [address] [place] [address] Jun, Controlled type 2 diabetes m ellitus without complication, without long-term current use of insulin E11.9 [place] [address] [facility] [id number] [address] [place] [address] May, Controlled type 2 diabetes m ellitus without complication, without long-term current use of insulin E11.9 [place] [address] [id number] [address] [place] [address] Apr, [place] [address] [facility] [id number] [address] [place] [address] Mar, Controlled type 2 diabetes m ellitus without complication, without long-term current use of insulin E11.9 [place] [address] [facility] [id number] [address] [place] [address] Jan, [place] [address] [id number] [address] [place] [address] Dec, Diabetes type 2, uncontrolle d E11.65 [place] [address] [id number] [address] [place] [address] Dec, Type 2 diabetes mellitus wit hout complications E11.9 ; group home current use of insulin Z79.4 and Cervicalgia M54.2 [place] [address] [id number] [address] [place] [address] Dec, Type 2 diabetes mellitus wit hout complications E11.9 ; intermediate manager current use of insulin Z79.4 and Cervicalgia M54.2 [place] [address] [facility] [id number] [address] [place] [address] Dec, Controlled type 2 diabetes m erika without complication, without long-term current use of insulin E11.9 [place] [address] [facility] [id number] [address] [place] [address] Nov, [place] [address] [facility] [id number] [address] [place] [address] Oct, Diabetes type 2, uncontrolle d E11.65 [place] [address] [facility] [id number] [address] [place] [address] Sep, Diabetes type 2, uncontrolle d E11.65 [place] [address] [facility] [id number] [address] [place] [address] Jun, Controlled type 2 diabetes m yaraitus without complication, without long-term current use of insulin E11.9 [place] [address] [id number] [address] [place] [address] May, [place] [address] [facility] [id number] [address] [place] [address] 16 May, 2017 Radiculopathy of cervical re gion M54.12 [facility] [address] [facility] [id number] [address] [place] [address] May, Controlled type 2 diabetes m ellitus without complication, without long-term current use of insulin E11.9 [facility] [address] [id number] [address] [place] [address] May, [facility] [address] [id number] [address] [place] [address] May, Controlled type 2 diabetes m ellitus without complication, without long-term current use of insulin E11.9 [facility] [address] [id number] [address] [place] [address] May, Controlled type 2 diabetes m ellitus without complication, without long-term current use of insulin E11.9 [facility] [address] [id number] [address] [place] [address] May, Controlled type 2 diabetes m ellitus without complication, without long-term current use of insulin E11.9 [facility] [address] [id number] [address] [place] [address] Apr, [facility] [address] [id number] [address] [place] [address] Apr, Controlled type 2 diabetes m ellitus without complication, without long-term current use of insulin E11.9 [facility] [address] [id number] [address] [place] [address] Apr, [facility] [address] [id number] [address] [place] [address] Apr, Controlled type 2 diabetes m ellitus without complication, without long-term current use of insulin E11.9 [facility] [address] [id number] [address] [place] [address] Mar, [facility] [address] [id number] [address] [place] [address] Mar, Radiculopathy of cervical re gion M54.12 [facility] [address] [id number] [address] [place] [address] Mar, Controlled type 2 diabetes m ellitus without complication, without long-term current use of insulin E11.9 [facility] [address] [id number] [address] [place] [address] 19 Feb, 2017 Cervical radiculopathy M54.1 2 ; Acute cystitis without hematuria N30.00 and History of urethral stricture Z87.448 [facility] [address] [id number] [address] [place] [address] 11 Feb, 2017 Controlled type 2 diabetes m ellitus without complication, without long-term current use of insulin E11.9 [facility] [address] [id number] [address] [place] [id number] 05 Feb, 2017 [facility] [address] [id number] [address] [place] [address] Jan, Diabetes type 2, uncontrolle d E11.65 [facility] [address] [id number] [address] [place] [address] Jan, [facility] [address] [id number] [address] [place] [address] Jan, Controlled type 2 diabetes m ellitus without complication, without long-term current use of insulin E11.9 ; Chest wall pain R07.89 and Thoracic spine pain M54.6 [place] [address] [id number] [address] [place] [address] Dec, [facility] [address] [facility] [id number] [address] [place] [address] Dec, [facility] [address] [id number] [address] [place] [address] Nov, [facility] [address] [facility] [id number] [address] [place] [address] Nov, [facility] [address] [facility] [id number] [address] [place] [phone] 13 Nov, 2016 Trichomonas exposure Z20.2 [facility] [address] [facility] [id number] [address] [place] [id number] Oct, [facility] [address] [id number] [address] [place] [address], [place] [address] Oct, [facility] [address] [id number] [address] [place] [address], [place] [address] Oct, [facility] [address] [id number] [address] [place] [address], [place] [address] Oct, [facility] [address] [id number] [address] [place] [address], [place] [address] Sep, [facility] [address] [id number] [address] [place] [address], [place] [address] Sep, [facility] [address] [id number] [address] [place] [address], [place] [address] Aug, [facility] [address] [id number] [address] [place] [address], [place] [address] Aug, [facility] [address] [id number] [address] [place] [address], [place] [address] Aug, [facility] [address] [id number] [address] [place] [address], [place] [address] Aug, [facility] [address] [id number] [address] [place] [address], [place] [address] July, Diabetes type 2, controlled E11.9 [facility] [address] [id number] [address] [place] [address], [place] [address] July, [facility] [address] [id number] [address] [place] [address], [place] [address] July, [facility] [address] [id number] [address] [place] [address], [place] [address] July, [facility] [address] [id number] [address] [place] [address], [place] [address] July, [facility] [address] [id number] [address] [place] [address], [place] [address] Jun, [facility] [address] [id number] [address] [place] [address], [place] [address] Jun, [facility] [address] [id number] [address] [place] [address] May, [facility] [address] [id number] [address] [place] [address] May, [facility] [address] [id number] [address] [place] [address] May, [facility] [address] [id number] [address] [place] [address] May, Controlled type 2 diabetes m yaraitus without complication, without long-term current use of insulin E11.9 [facility] [address] [id number] [address] [place] [id number] Apr, [facility] [address] [id number] [address] [place] [address] Apr, [facility] [address] [id number] [address] [place] [address] Mar, [facility] [address] [id number] [address] [place] [address] Mar, [facility] [address] [id number] [address] [place] [address] Feb, [facility] [address] [id number] [address] [place] [address] Feb, [facility] [address] [id number] [address] [place] [address] Jan, [facility] [address] [id number] [address] [place] [address] Jan, [facility] [address] [id number] [address] [place] [address] Jan, [facility] [address] [id number] [address] [place] [address] Dec, [facility] [address] [id number] [address] [place] [address] Dec, [facility] [address] [id number] [address] [place] [address] Dec, [facility] [address] [id number] [address] [place] [id number] 29 Nov, 2015 Diabetes type 2, uncontrolle d E11.65 [facility] [address] [id number] [address] [place] [address] Nov, [facility] [address] [id number] [address] [place] [address] Nov, [facility] [address] [id number] [address] [place] [address] Oct, [facility] [address] [id number] [address] [place] [id number] Oct, [facility] [address] [id number] [address] [place] [address] Sep, Controlled type 2 diabetes m ellitus without complication, without long-term current use of insulin E11.9 [facility] [address] [id number] [address] [place] [phone] Sep, [facility] [address] [id number] [address] [place] [address] Sep, [facility] [address] [id number] [address] [place] [address] Sep, [facility] [address] [id number] [address] [place] [address] Sep, [facility] [address] [id number] [address] [place] [address] Aug, Diabetes type 2, controlled E11.9 ; Anxiety F41.9 ; Carpal tunnel syndrome, left upper limb G56.02 and Carpal tunnel syndrome, right upper limb G56.01 [facility] [address] [id number] [address] [place] [address] Aug, Urethritis N34.2 [facility] [address] [id number] [address] [place] [address] Aug, [facility] [address] [id number] [address] [place] [address] July, Genital warts A63.0 [facility] [address] [id number] [address] [place] [address] July, [facility] [address] [id number] [address] [place] [address] July, Genital warts A63.0 [facility] [address] [id number] [address] [place] [address] July, Anxiety F41.9 [facility] [address] [id number] [address] [place] [address] Jun, Genital warts A63.0 [facility] [address] [id number] [address] [place] [address] Jun, Anxiety F41.9 [facility] [address] [id number] [address] [place] [address] May, Genital warts A63.0 and Diab etes type 2, uncontrolled E11.65 [facility] [address] [id number] [address] [place] [address] May, [facility] [address] [id number] [address] [place] [phone] May, [facility] [address] [id number] [address] [place] [address] Apr, [facility] [address] [id number] [address] [place] [address] Apr, [facility] [address] [id number] [address] [place] [address] Apr, Diabetes type 2, controlled E11.9 [facility] [address] [id number] [address] [place] [address] Apr, Genital warts A63.0 [facility] [address] [id number] [address] [place] [address] Apr, [facility] [address] [facility] [id number] [address] [place] [address] Apr, Diabetes type 2, uncontrolle d E11.65 and Genital warts A63.0 [facility] [address] [id number] [address] [place] [id number] Apr, [facility] [address] [facility] [id number] [address] [place] [address] Mar, [facility] [address] [facility] [id number] [address] [place] [address] Mar, [facility] [address] [facility] [id number] [address] [place] [address] Mar, Family history of diabetes m ellitus V18.0 and Weight loss R63.4 [facility] [address] [facility] [id number] [address] [place] [id number] Mar, Genital warts A63.0 and Fami ly history of diabetes mellitus V18.0 [facility] [address] [facility] [id number] [address] [place] [phone] Feb, [facility] [address] [facility] [id number] [address] [place] [address] Jan, [facility] [address] [facility] [id number] [address] [place] [address] Jan, Perianal venereal warts A63. 0 [facility] [address] [facility] [id number] [address] [place] [address] Jan, Urethritis N34.2 and Anxiety F41.9 [facility] [address] [facility] [id number] [address] [place] [address] Jan, [facility] [address] [address] Jan, Urinary tract infection, sit e unspecified N39.0 [place] [address] [address] Jan, [place] [address] [address] Dec, [place] [address] [address] Dec, HPV (human papilloma virus) anogenital infection A63.0 ; Anxiety F41.9 and Gastroesophageal reflux disease without esophagitis K21.[address] [address] Sep, Blood in stool 578.[address] [address] Aug, Blood in stool 578.1 [place] [address] [address] Aug, Anxiety 300.00 and Blood in stool 578.[address] [address] July, [place] [address] [address] July, Family history of diabetes m ellitus V18.[address] [address] July, Family history of diabetes m ellitus V18.0 ; Family history of thyroid disease V18.19 ; Polyuria 788.42 ; Polydipsia 783.5 ; Alopecia 704.00 and Fatigue 780.79 [place] [address] [address] Jun, [place] [address] [address] Jun, [facility] [address] [id number] [address] [place] [address], [place] [address] Mar, [facility] [address] [id number] [address] [place] [address], [place] [address] Mar, [facility] [address] [id number] [address] [place] [address], [place] [address] Mar, [facility] [address] [id number] [address] [place] [address], [place] [address] Mar, [facility] [address] [id number] [address] [place] [address], [place] [address] Mar, [facility] [address] [id number] [address] [place] [address], [place] [address] Mar, [facility] [address] [id number] [address] [place] [address], [place] [address] Mar, [facility] [address] [id number] [address] [place] [address], [place] [address] Mar, [facility] [address] [id number] [address] [place] [address], [place] [address] Mar, [facility] [address] [id number] [address] [place] [address], [place] [address] Mar, [facility] [address] [id number] [address] [place] [address], [place] [address] Feb, [facility] [address] [id number] [address] [place] [address], [place] [address] Feb, [facility] [address] [id number] [address] [place] [address], [place] [address] Jan, [facility] [address] [id number] [address] [place] [address], [place] [address] Jan, [facility] [address] [id number] [address] [place] [address], [place] [address] Jan, [facility] [address] [id number] [address] [place] [address], [place] [address] Jan, [facility] [address] [id number] [address] [place] [address], [place] [address] Dec, [facility] [address] [id number] [address] [place] [address], [place] [address] Dec, [facility] [address] [id number] [address] [place] [address], [place] [address] Nov, [facility] [address] [id number] [address] [place] [address], [place] [address] Nov, [facility] [address] [id number] [address] [place] [address], [place] [address] Oct, [facility] [address] [id number] [address] [place] [address], [place] [address] Oct, [facility] [address] [id number] [address] [place] [address], [place] [address] Oct, [facility] [address] [id number] [address] [place] [address], [place] [address] Oct, [facility] [address] [id number] [address] [place] [address], [place] [address] Oct, [facility] [address] [id number] [address] [place] [address], [place] [address] Oct, [facility] [address] [id number] [address] [place] [address], [place] [address] Oct, [facility] [address] [id number] [address] [place] [address], [place] [address] Oct, [facility] [address] [id number] [address] [place] [address], [place] [address] Sep, [facility] [address] [id number] [address] [place] [address], [place] [address] Sep, [facility] [address] [id number] [address] [place] [address], [place] [address] Sep, [facility] [address] [id number] [address] [place] [address], [place] [address] 15 Sep, 2013 [facility] [address] [id number] [address] [place] [address], [place] [address] Aug, [facility] [address] [id number] [address] [place] [address], [place] [address] Aug, [facility] [address] [id number] [address] [place] [address], [place] [address] Aug, [facility] [address] [id number] [address] [place] [address], [place] [address] Aug, [facility] [address] [id number] [address] [place] [address], [place] [address] July, [facility] [address] [id number] [address] [place] [address], [place] [address] July, [facility] [address] [id number] [address] [place] [address], [place] [address] July, [facility] [address] [id number] [address] [place] [address], [place] [address] July, [facility] [facility] [address] [id number] [address] [place] [address], [place] [address] July, [facility] [address] [id number] [address] [place] [address], [place] [address] July, [facility] [address] [id number] [address] [place] [address], [place] [address] Jun, [facility] [address] [id number] [address] [place] [address], [place] [address] Jun, [facility] [address] [id number] [address] [place] [address], [place] [address] Jun, [facility] [address] [id number] [address] [place] [address], [place] [address] Jun, [facility] [address] [id number] [address] [place] [address], [place] [address] Jun, [facility] [address] [id number] [address] [place] [address], [place] [address] 14 Jun, 2013 [facility] [address] [id number] [address] [place] [address], [place] [address] 14 Jun, 2013 [facility] [address] [id number] [address] [place] [address], [place] [address] 14 Jun, 2013 [facility] [address] [id number] [address] [place] [address], [place] [address] 19 May, 2013 [facility] [address] [id number] [address] [place] [address], [place] [address] 19 May, 2013 [facility] [address] [id number] [address] [place] [address], [place] [address] 18 May, 2013 [facility] [address] [id number] [address] [place] [address], [place] [address] Apr, [facility] [address] [id number] [address] [place] [address], [place] [address] Apr, [facility] [address] [id number] [address] [place] [address], [place] [address] Apr, [facility] [address] [id number] [address] [place] [address], [place] [address] Apr, [facility] [address] [id number] [address] [place] [address], [place] [address] Mar, [facility] [address] [id number] [address] [place] [address], [place] [address] Mar, [facility] [address] [id number] [address] [place] [address], [place] [address] Mar, [facility] [address] [id number] [address] [place] [address], [place] [address] Mar, [facility] [address] [id number] [address] [place] [address], [place] [address] Mar, [facility] [address] [id number] [address] [place] [address], [place] [address] Mar, [facility] [address] [id number] [address] [place] [address], [place] [address] Feb, [facility] [address] [id number] [address] [place] [address], [place] [address] Feb, [facility] [address] [id number] [address] [place] [address], [place] [address] Jan, [facility] [address] [id number] [address] [place] [address], [place] [address] Jan, [facility] [address] [id number] [address] [place] [address], [place] [address] Jan, [facility] [address] [id number] [address] [place] [address], [place] [address] Jan, [facility] [address] [id number] [address] [place] [address], [place] [address] Jan, [facility] [address] [id number] [address] [place] [address], [place] [address] Jan, [facility] [address] [id number] [address] [place] [address], [place] [address] Jan, [facility] [address] [id number] [address] [place] [address], [place] [address] Dec, [facility] [address] [id number] [address] [place] [address], [place] [address] Dec, [facility] [address] [id number] [address] [place] [address], [place] [address] Nov, [facility] [address] [id number] [address] [place] [address], [place] [address] Nov, [facility] [address] [id number] [address] [place] [address], [place] [address] Nov, [facility] [address] [id number] [address] [place] [address], [place] [address] Oct, [facility] [address] [id number] [address] [place] [address], [place] [address] Oct, [facility] [address] [id number] [address] [place] [address], [place] [address] Oct, [facility] [address] [id number] [address] [place] [address], [place] [address] Oct, [facility] [address] [id number] [address] [place] [address], [place] [address] Sep, [facility] [address] [id number] [address] [place] [address], [place] [address] Sep, [facility] [address] [id number] [address] [place] [address], [place] [address] Aug, [facility] [address] [id number] [address] [place] [address], [place] [address] Aug, [facility] [address] [id number] [address] [place] [address], [place] [address] Aug, [facility] [address] [id number] [address] [place] [address], [place] [address] Aug, [facility] [address] [id number] [address] [place] [address], [place] [address] July, [facility] [address] [id number] [address] [place] [address], [place] [address] July, [facility] [address] [id number] [address] [place] [address], [place] [address] July, [facility] [address] [id number] [address] [place] [address], [place] [address] July, [facility] [address] [id number] [address] [place] [address], [place] [address] Jun, [facility] [address] [id number] [address] [place] [address], [place] [address] Jun, [facility] [address] [id number] [address] [place] [address], [place] [address] Feb, [facility] [address] [facility] [id number] [address] [address] Feb, [facility] [address] [facility] [id number] [address] [place] [address] Mar, IMMUNIZATIONS No Known Immunizations SOCIAL HISTORY [...]
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
[2019-10-05 23:11] LABS: BILIRUBIN,URINE NEGATIVE (NEGATIVE); CLARITY,URINE CLEAR; COLOR,URINE YELLOW; GLUCOSE, URINE (UA) TRACE (NEGATIVE); KETONES,URINE NEGATIVE (NEGATIVE); LEUKOCYTE ESTERASE ,URINE NEGATIVE (NEGATIVE); NITRITE,URINE NEGATIVE (NEGATIVE); PH,URINE 5.5 (5-9); PROTEIN,URINE TRACE (NEGATIVE)
[2019-10-05] MEDS ORDERED: HOLD METFORMIN - RECEIVED CONTRAST 20 ML VIAL IV SCH (23:15)
[2019-10-05] MEDS ORDERED: NS 100 ML (IVPB) BAG IV ONE (23:15)
[2019-10-05] MEDS ORDERED: IOHEXOL 350 MG/ML 100 ML (OMNIPAQUE 350) VIAL IV ONE (23:15)
[2019-10-05 23:24] LABS: BACTERIA,URINE TRACE /HPF; CALCIUM OXALATE CRYSTALS,UR RARE /LPF; SQUAMOUS EPITHELIAL CELL,UR 0-2 /HPF
[2019-10-05 23:25] LABS: AMPHETAMINE SCREEN, URINE NEGATIVE (NEGATIVE); BARBITURATE SCREEN URINE NEGATIVE (NEGATIVE); BENZODIAZEPINES SCREEN URINE NEGATIVE (NEGATIVE); CANNABINOID SCREEN, URINE NEGATIVE (NEGATIVE); COCAINE SCREEN URINE NEGATIVE (NEGATIVE); METHADONE STAT NEGATIVE (NEGATIVE); METHAMPHETAMINE SCREEN URINE S NEGATIVE (NEGATIVE); OPIATE SCREEN URINE NEGATIVE (NEGATIVE); OXYCODONE STAT NEGATIVE (NEGATIVE); PROPOXYPHENE STAT NEGATIVE (NEGATIVE); TRICYCLIC ANTIDEPRESSANTS SCRE NEGATIVE (NEGATIVE)
[2019-10-05 23:31] VITALS: BP 122/76
[2019-10-06] MEDS ORDERED: fentaNYL INJECTION 100 MCG/2 ML AMP IVP ONE
[2019-10-06] MEDS ORDERED: ceFAZolin INJECTION 1,000 MG in WATER (STERILE) FOR INJECTION 10 ML IV ONE ×2
--- NOTE | 2019-10-06 00:19 | NUR ---
[employer] [employer] here at this time for legal blood draw.
[2019-10-06] MEDS ORDERED: fentaNYL INJECTION 100 MCG/2 ML AMP IVP STA (01:14)
--- NOTE | 2019-10-06 02:12 | NUR ---
CALLED PATIENTS MOTHER TO GIVE UPDATE ON PATIENT CONDITION. DISCUSSED ADMISSION STATUS TO ROOM 406, DISCUSSED VISITING HOURS AND CURRENT RESTRICTIONS. FAMILY VERY RECEPTIVE AND UNDERSTANDING, THANKED THIS RN FOR THE UPDATE.
[2019-10-06 02:30] VITALS: BP 111/72
[2019-10-06 04:20] VITALS: BP 106/71
[2019-10-06] MEDS ORDERED: fentaNYL INJECTION 100 MCG/2 ML AMP ONE (04:39)
[2019-10-06] MEDS ORDERED: LACTATED RINGERS 1,000 ML IV ONE (04:41)
[2019-10-06] MEDS ORDERED: fentaNYL INJECTION 100 MCG/2 ML AMP IV PRN (04:45)
[2019-10-06] MEDS ORDERED: ONDANSETRON 4 MG/2 ML (SDV) Z0FRAN IV PRN (04:45)
[2019-10-06] MEDS: LACTATED RINGERS 1,000 ML IV SCH ×2 (04:47→12:42)
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
[2019-10-06 06:11] LABS: BASOPHILS % (AUTO) 0 % (0-10); EOSINOPHILS % (AUTO) 0 % (0-10); HEMATOCRIT 40 % (40-54); HEMOGLOBIN 13.6 G/DL (13.3-17.7); LYMPHOCYTES # (AUTO) 4.9 X 10^3 (1.0-4.0); LYMPHOCYTES % (AUTO) 29 % (12-44); MEAN CORPUSCULAR HEMOGLOBIN 30 PG (25-34); MEAN CORPUSCULAR HGB CONC 34 G/DL (32-36); MEAN CORPUSCULAR VOLUME 88 FL (80-99); MEAN PLATELET VOLUME 10.5 FL (7.4-10.4); MONOCYTES % (AUTO) 6 % (0-12); NEUTROPHILS # (AUTO) 10.9 X 10^3 (1.8-7.8); NEUTROPHILS % (AUTO) 65 % (42-75); PLATELET COUNT 230 10^3/uL (130-400); RED CELL DISTRIBUTION WIDTH 13.2 % (10.0-14.5); WHITE BLOOD COUNT 16.8 10^3/uL (4.3-11.0)
[2019-10-06 06:22] LABS: CHLORIDE 106 MMOL/L (98-107); POTASSIUM 4.3 MMOL/L (3.6-5.0); SODIUM 139 MMOL/L (135-145)
[2019-10-06 06:23] LABS: CALCIUM 8.7 MG/DL (8.5-10.1)
[2019-10-06 06:24] LABS: GLUCOSE 306 MG/DL (70-105)
[2019-10-06 06:25] LABS: TOTAL PROTEIN 6.8 GM/DL (6.4-8.2)
[2019-10-06 06:26] LABS: BILIRUBIN,TOTAL 0.4 MG/DL (0.1-1.0); CARBON DIOXIDE 18 MMOL/L (21-32)
[2019-10-06 06:28] LABS: ALKALINE PHOSPHATASE 152 U/L (40-136); CREATININE SERUM 0.96 MG/DL (0.60-1.30); GFR ESTIMATED > 60
[2019-10-06 06:29] LABS: BUN/CREATININE RATIO 10
[2019-10-06 06:31] LABS: ALANINE AMINOTRANSFERASE 98 U/L (0-55)
[2019-10-06] MEDS: inSUlin ASPART (NovoLOG) 1 UNIT/0.01 ML (CHARGE PER UNIT) SC SCH ×2 (06:37→09:57)
[2019-10-06 06:46] LABS: ATYPICAL LYMPHOCYTES 2 %; LYMPHOCYTES % (MANUAL) 27 %; METAMYELOCYTES % 2 %; MONOCYTES % (MANUAL) 5 %; NEUTROPHILS % (MANUAL) 62 %; REACTIVE LYMPHOCYTES 2 %
[2019-10-06 06:47] LABS: ANISOCYTOSIS SLIGHT; HYPOCHROMASIA SLIGHT
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
[2019-10-06 07:24] VITALS: BP 105/71
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
[2019-10-06 08:04] VITALS: BP 133/82
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
[2019-10-06] MEDS ORDERED: AUGMENTIN 875 MG TAB (AMOXICILLIN/CLAVULANATE) PO SCH (09:00)
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
[2019-10-06 11:29] VITALS: BP 137/87
[2019-10-06] MEDS ORDERED: HYDR-3817 PO (11:38)
--- NOTE | 2019-10-06 11:39 | Discharge Inst-Surgical ---
D/C Lap Instructions-SUNDAY New, Converted, or Re-Newed RX: RX on Chart Follow Up with [facility] in 1 week Activity as tolerated No driving for 24 hours No driving while on pain medications Regular Diet Symptoms to Report: Fever over 101 degree F, Nausea/Vomiting Infection Signs and Symptoms to report: Increased redness, Foul odor of wound, Increased drainage Bathing instructions: May shower Operative Area Clean/Dry; Keep incision clean/dry If any problems/questions: Contact your physician or go to Emergency Room ANDRÉS BRAND MD Oct 06, 2019 11:39
[2019-10-06 13:00] VITALS: BP 137/87
--- OUTSIDE RECORDS SUMMARY | 2019-10-15 18:40 | XMS REPORT ---
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 [facility] 19:05-0 ([id number]) 400 Urobilinogen (U) 0.2 mg/dL Invalid < = 1.0 PENDING [Mass/Vol] Interpreta mg/dL LOCATIO 020 tion Code N [facility] 19:05-0 ([id number]) 400 WBC (Bld) [#/Vol] 15.2 10*3/uL High 4.3-11.0 PENDING 10*3/uL LOCATIO 020 [facility] 18:07-0 ([id number]) 400 WBC LM.HPF (Urine Invalid PENDING sed) [#/Area] Interpreta LOCATIO 020 tion Code N [facility] 19:05-0 ([id number]) 400 laboratory on 2019-08-16 Albumin [Mass/Vol] 4.3 g/dL Negative 3.2-4.5 PENDING 07-20 8-2 g/dL LOCATIO 020 [facility] 08:22-0 ([id number]) 400 ALP [Catalytic 157 U/L High 40-136 U/L PENDING activity/Vol] LOCATIO 020 [facility] 08:22-0 ([id number]) 400 ALT [Catalytic 19 U/L Negative 0-55 U/L PENDING activity/Vol] LOCATIO 020 [facility] 08:22-0 ([id number]) 400 Amorphous sediment RARE ANTONIO URATES Abnormal PENDING LM Ql (Urine sed) LOCATIO 020 [facility] 09:30-0 ([id number]) 400 Amphetamines Screen Negative Invalid NEGATIVE PENDING Ql (U) Interpreta LOCATIO 020 tion Code [facility] 09:30-0 ([id number]) 400 Amylase [Catalytic 31 U/L Negative 25-125 U/L PENDING activity/Vol] LOCATIO 020 [facility] 08:22-0 ([id number]) 400 Anion gap 15 mmol/L High 5-14 PENDING 08-15- [Moles/Vol] mmol/L LOCATIO 020 N [facility] 08:22-0 ([id number]) 400 AST [Catalytic 15 U/L Negative 5-34 U/L PENDING activity/Vol] LOCATIO 020 N [facility] 08:22-0 ([id number]) 400 Bacteria LM Ql Negative Invalid PENDING (Urine sed) Interpreta LOCATIO 020 tion Code N [facility] 09:30-0 ([id number]) 400 Barbiturates Ql (U) Negative Invalid NEGATIVE PENDING Interpreta LOCATIO 020 tion Code N [facility] 09:30-0 ([id number]) 400 Basophils (Bld) 0.0 10*3/uL Negative 0.0-0.1 PENDING 08-15 [#/Vol] 10*3/uL LOCATIO 020 [facility] 08:22-0 ([id number]) 400 Basophils/100 WBC 1 % Negative 0-10 % PENDING 08-15 (Bld) LOCATIO 020 [facility] 08:22-0 ([id number]) 400 Benzodiazepines Ql Negative Invalid NEGATIVE PENDING 07-20 8-2 (U) Interpreta LOCATIO 020 tion Code N [facility] 09:30-0 ([id number]) 400 Bilirubin [Mass/Vol] 0.3 mg/dL Negative 0.1-1.0 PENDING - mg/dL LOCATIO 020 [facility] 08:22-0 ([id number]) 400 Bilirubin Ql (U) Negative Invalid NEGATIVE PENDING Interpreta LOCATIO 020 tion Code [facility] 09:30-0 ([id number]) 400 Calcium [Mass/Vol] 9.3 mg/dL Negative 8.5-10.1 PENDING - 8-2 mg/dL LOCATIO 020 [facility] 08:22-0 ([id number]) 400 Calcium [Mass/Vol] 9.1 mg/dL Negative 8.5-10.1 PENDING - 8-2 mg/dL LOCATIO 020 [facility] 08:22-0 ([id number]) 400 Cannabinoids Screen Negative Invalid NEGATIVE PENDING Ql (U) Interpreta LOCATIO 020 tion Code N [facility] 09:30-0 ([id number]) 400 Casts LM Ql (Urine NONE Invalid PENDING sed) Interpreta LOCATIO 020 tion Code N [facility] 09:30-0 ([id number]) 400 Chloride [Moles/Vol] 96 mmol/L Low 98-107 PENDING mmol/L LOCATIO 020 N [facility] 08:22-0 ([id number]) 400 Clarity (U) CLEAR Invalid PENDING Interpreta LOCATIO 020 tion Code N [facility] 09:30-0 ([id number]) 400 CO2 [Moles/Vol] 19 mmol/L Low 21-32 PENDING mmol/L LOCATIO 020 N [facility] 08:22-0 ([id number]) 400 Cocaine Ql (U) Negative Invalid NEGATIVE PENDING Interpreta LOCATIO 020 tion Code N [facility] 09:30-0 ([id number]) 400 Color (U) YELLOW Invalid PENDING Interpreta LOCATIO 020 tion Code N [facility] 09:30-0 ([id number]) 400 Creatinine 1.23 mg/dL Negative 0.60-1.30 PENDING [Mass/Vol] mg/dL LOCATIO 020 N [facility] 08:22-0 ([id number]) 400 Creatinine and > PENDING Glomerular LOCATIO 020 filtration N [facility] 08:22-0 rate.predicted panel ([id number]) 400 - Serum, Plasma or Blood Crystals LM Ql PRESENT Abnormal PENDING (Urine sed) LOCATIO 020 N [facility] 09:30-0 ([id number]) 400 Eosinophils (Bld) 0.2 10*3/uL Negative 0.0-0.3 PENDING [#/Vol] 10*3/uL LOCATIO 020 N [facility] 08:22-0 ([id number]) 400 Eosinophils/100 WBC 3 % Negative 0-10 % PENDING (Bld) LOCATIO 020 N [facility] 08:22-0 ([id number]) 400 Erythrocyte 12.5 % Negative 10.0-14.5 PENDING distribution width % LOCATIO 020 (RBC) [Ratio] N [facility] 08:22-0 ([id number]) 400 Glucose [Mass/Vol] mg/dL Critically 70-110 PENDING high mg/dL LOCATIO 020 N [facility] 08:22-0 ([id number]) 400 Glucose [Mass/Vol] 749 mg/dL Critically 70-105 PENDING high mg/dL LOCATIO 020 [facility] 08:22-0 ([id number]) 400 Glucose [Mass/Vol] 497 mg/dL Critically 70-110 PENDING high mg/dL LOCATIO 020 [facility] 09:31-0 ([id number]) 400 Glucose [Mass/Vol] 492 mg/dL Critically 70-110 PENDING high mg/dL LOCATIO 020 [facility] 10:25-0 ([id number]) 400 Glucose [Mass/Vol] 500 mg/dL Critically 70-110 PENDING high mg/dL LOCATIO 020 [facility] 11:16-0 ([id number]) 400 Glucose [Mass/Vol] 349 mg/dL High 70-110 PENDING 07-20 8-2 mg/dL LOCATIO 020 [facility] 12:08-0 ([id number]) 400 Glucose Auto test 3+ Abnormal NEGATIVE PENDING 08-15 strip Ql (U) LOCATIO 020 N [facility] 09:30-0 ([id number]) 400 Hematocrit (Bld) 45 % Negative 40-54 % PENDING [Volume fraction] LOCATIO 020 [facility] 08:22-0 ([id number]) 400 Hemoglobin (Bld) 16.6 g/dL Negative 13.3-17.7 PENDING [Mass/Vol] g/dL LOCATIO 020 [facility] 08:22-0 ([id number]) 400 Ketones Auto test 1+ Abnormal NEGATIVE PENDING 08-15 strip Ql (U) LOCATIO 020 [facility] 09:30-0 ([id number]) 400 Leukocyte esterase Negative Invalid NEGATIVE PENDING 07-20 8-2 Test strip Ql (U) Interpreta LOCATIO 020 tion Code N [facility] 09:30-0 ([id number]) 400 Lipase [Catalytic 38 U/L Negative 8-78 U/L PENDING 08-15 activity/Vol] LOCATIO 020 [facility] 08:22-0 ([id number]) 400 Lymphocytes (Bld) 2.8 10*3/uL Negative 1.0-4.0 PENDING [#/Vol] 10*3 LOCATIO 020 [facility] 08:22-0 ([id number]) 400 Lymphocytes/100 WBC 35 % Negative 12-44 % PENDING (Bld) LOCATIO 020 [facility] 08:22-0 ([id number]) 400 Magnesium [Mass/Vol] 2.0 mg/dL Negative 1.6-2.4 PENDING mg/dL LOCATIO 020 [facility] 08:22-0 ([id number]) 400 MCH (RBC) [Entitic 30 pg Negative 25-34 pg PENDING 07-20-2 mass] LOCATIO 020 [facility] 08:22-0 ([id number]) 400 MCHC (RBC) 37 g/dL High 32-36 g/dL PENDING [Mass/Vol] LOCATIO 020 [facility] 08:22-0 ([id number]) 400 MCV (RBC) [Entitic 83 Negative 80-99 PENDING 07-20 8-2 vol] [foz_us] LOCATIO 020 [facility] 08:22-0 ([id number]) 400 Methadone Screen Ql Negative Invalid NEGATIVE PENDING (U) Interpreta LOCATIO 020 tion Code [facility] 09:30-0 ([id number]) 400 Methamphetamine (U) Negative Invalid NEGATIVE PENDING [Mass/Vol] Interpreta LOCATIO 020 tion Code N [facility] 09:30-0 ([id number]) 400 Monocytes (Bld) 0.4 10*3/uL Negative 0.0-1.0 PENDING 08-15 [#/Vol] 10*3 LOCATIO 020 [facility] 08:22-0 ([id number]) 400 Monocytes/100 WBC 5 % Negative 0-12 % PENDING 08-15 (Bld) LOCATIO 020 [facility] 08:22-0 ([id number]) 400 Mucus Ql (Urine sed) Negative Invalid PENDING 08-15 Interpreta LOCATIO 020 tion Code N [facility] 09:30-0 ([id number]) 400 Neutrophils (Bld) 4.7 10*3/uL Negative 1.8-7.8 PENDING [#/Vol] 10*3 LOCATIO 020 N [facility] 08:22-0 ([id number]) 400 Neutrophils/100 WBC 57 % Negative 42-75 % PENDING (Bld) LOCATIO 020 N [facility] 08:22-0 ([id number]) 400 Nitrite Ql (U) Negative Invalid NEGATIVE PENDING Interpreta LOCATIO 020 tion Code N [facility] 09:30-0 ([id number]) 400 Opiates Screen Ql Negative Invalid NEGATIVE PENDING 08-15 (U) Interpreta LOCATIO 020 tion Code N [facility] 09:30-0 ([id number]) 400 oxyCODONE Ql (U) Negative Invalid NEGATIVE PENDING Interpreta LOCATIO 020 tion Code [facility] 09:30-0 (12524) 400 pH (U) 6.0 [pH] Invalid 5-9 PENDING Interpreta LOCATIO 020 tion Code [facility] 09:30-0 ([id number]) 400 Phencyclidine Ql (U) Negative Invalid NEGATIVE PENDING Interpreta LOCATIO 020 tion Code [facility] 09:30-0 (18040) 400 Platelet mean volume 11.8 High 7.4-10.4 PENDING (Bld) [Entitic vol] [foz_us] LOCATIO 020 [facility] 08:22-0 ([id number]) 400 Platelets (Bld) 214 10*3/uL Negative 130-400 PENDING 08-15 [#/Vol] 10*3/uL LOCATIO 020 [facility] 08:22-0 ([id number]) 400 Potassium 4.2 mmol/L Negative 3.6-5.0 PENDING [Moles/Vol] mmol/L LOCATIO 020 N [facility] 08:22-0 (73060) 400 Propoxyphene Ql (U) Negative Invalid NEGATIVE PENDING Interpreta LOCATIO 020 tion Code N [facility] 09:30-0 ([id number]) 400 Protein [Mass/Vol] 7.7 g/dL Negative 6.4-8.2 PENDING 07-20 8-2 g/dL LOCATIO 020 N [facility] 08:22-0 ([id number]) 400 Protein Ql (U) Negative Invalid NEGATIVE PENDING Interpreta LOCATIO 020 tion Code N [facility] 09:30-0 ([id number]) 400 RBC (Bld) [#/Vol] 5.48 10*6/uL Negative 4.35-5.85 PENDING 10*6/uL LOCATIO 020 N [facility] 08:22-0 ([id number]) 400 RBC LM.HPF (Urine NONE Invalid PENDING sed) [#/Area] Interpreta LOCATIO 020 tion Code N [facility] 09:30-0 ([id number]) 400 RBC Ql (U) Negative Invalid NEGATIVE PENDING Interpreta LOCATIO 020 tion Code N [facility] 09:30-0 (22625) 400 Sodium [Moles/Vol] 130 mmol/L Low 135-145 PENDING mmol/L LOCATIO 020 N [facility] 08:22-0 ([id number]) 400 Specific gravity (U) <= Invalid 1.016-1.02 PENDING 0 [Rel density] Interpreta 2 LOCATIO 020 tion Code N [facility] 09:30-0 ([id number]) 400 Tricyclic Negative Invalid NEGATIVE PENDING antidepressants Interpreta LOCATIO 020 Screen Ql (U) tion Code N [facility] 09:30-0 ([id number]) 400 Urea nitrogen 10 mg/dL Negative 7-18 mg/dL PENDING [Mass/Vol] LOCATIO 020 N [facility] 08:22-0 ([id number]) 400 Urea 8 mg/mg PENDING nitrogen/Creatinine LOCATIO 020 [Mass ratio] N [facility] 08:22-0 (99259) 400 Urinalysis complete NO Invalid PENDING W Reflex Culture Interpreta LOCATIO 020 panel - Urine tion Code N [facility] 09:30-0 ([id number]) 400 Urobilinogen (U) 0.2 mg/dL Invalid < = 1.0 PENDING [Mass/Vol] Interpreta mg/dL LOCATIO 020 tion Code N [facility] 09:30-0 ([id number]) 400 WBC (Bld) [#/Vol] 8.2 10*3/uL Negative 4.3-11.0 PENDING 10*3/uL LOCATIO 020 N [facility] 08:22-0 ([id number]) 400 WBC LM.HPF (Urine Invalid [HPF] PENDING sed) [#/Area] Interpreta LOCATIO 020 tion Code N [facility] 09:30-0 ([id number]) 400 not yet categorized on 2019-02-26 Exp date 10/2019 Invalid Communi Interpreta ty tion Code [facility] ([id number]) Lot 10.7~12.4~0552 Invalid Communi Interpreta ty tion Code [facility] (77264) not yet categorized on 2018-08-23 Exp date 05/2020 Invalid Communi Interpreta ty tion Code [facility] ([id number]) Lot 12.6~14~0993 Invalid Communi Interpreta ty tion Code [facility] (78647) not yet categorized on 2017-10-04 Exp date 10/14/2017 Invalid Not Interpreta Availab tion Code le (37859) Exp date 05/2019 Invalid Not Interpreta Availab tion Code le (09073) GLU FINGERSTICK 410 Invalid Not Interpreta Availab tion Code le (02159) Lot 14~8.5~0856 Invalid Not Interpreta Availab tion Code le (51860) Lot # [id number] Invalid Not Interpreta Availab tion Code le (42053) not yet categorized on 2017-06-03 COMMENT Not Availab le (91603) medMATCH 6 CONSISTENT Invalid Not Acetylmorphine Interpreta Availab tion Code le (56779) medMATCH Alcohol CONSISTENT Invalid Not Metab Interpreta Availab tion Code le (80836) medMATCH CONSISTENT Invalid Not Aminoclonazepam Interpreta Availab tion Code le (11545) medMATCH Amphetamine CONSISTENT Invalid Not Interpreta Availab tion Code le (54797) medMATCH CONSISTENT Invalid Not Amphetamines Interpreta Availab tion Code le (15759) medMATCH aOH CONSISTENT Invalid Not alprazolam Interpreta Availab tion Code le (42086) medMATCH aOH CONSISTENT Invalid Not midazolam Interpreta Availab tion Code le (94363) medMATCH aOH CONSISTENT Invalid Not triazolam Interpreta Availab tion Code le (72728) medMATCH CONSISTENT Invalid Not Buprenorphine Interpreta Availab tion Code le (63227) medMATCH Cocaine CONSISTENT Invalid Not Metab Interpreta Availab tion Code le (87987) medMATCH CONSISTENT Invalid Not Desmethyltram Interpreta Availab tion Code le (33195) medMATCH Lorazepam CONSISTENT Invalid Not Interpreta Availab tion Code le (64796) medMATCH Marijuana INCONSISTENT Invalid Not Metab Interpreta Availab tion Code le (32809) medMATCH MDMA CONSISTENT Invalid Not Interpreta Availab tion Code le (74454) medMATCH CONSISTENT Invalid Not Methamphetamine Interpreta Availab tion Code le (71059) medMATCH Nordiazepam CONSISTENT Invalid Not Interpreta Availab tion Code le (84747) medMATCH [place],Et CONSISTENT Invalid Not flurazepam Interpreta Availab tion Code le (78428) medMATCH Opiates CONSISTENT Invalid Not Interpreta Availab tion Code le (40375) medMATCH Oxazepam CONSISTENT Invalid Not Interpreta Availab tion Code le (51489) medMATCH Oxycodone CONSISTENT Invalid Not Interpreta Availab tion Code le (98903) medMATCH Temazepam CONSISTENT Invalid Not Interpreta Availab tion Code le (89740) medMATCH Tramadol CONSISTENT Invalid Not Interpreta Availab tion Code le (25688) Prescribed Drug 1 Ativan(TM) Not Availab le (27774) Prescribed Drug 2 Tramadol Not Availab le (55671) laboratory on 2017-06-03 1-Hydroxymidazolam Negative Invalid <50 ng/mL Not (U) [Mass/Vol] Interpreta Availab tion Code le (48987) 6-Monoacetylmorphine Negative Invalid <10 ng/mL Not (6-CHANELL) Ql (U) Interpreta Availab tion Code le (38373) 7-Aminoclonazepam Negative Invalid <25 ng/mL Not (U) [Mass/Vol] Interpreta Availab tion Code le (06808) Alpha Negative Invalid <25 ng/mL Not hydroxyalprazolam Interpreta Availab (U) [Mass/Vol] tion Code le (33226) Alpha Negative Invalid <50 ng/mL Not hydroxytriazolam (U) Interpreta Availab [Mass/Vol] tion Code le (72120) Amphetamine (U) Negative Invalid <250 ng/mL Not [Mass/Vol] Interpreta Availab tion Code le (23065) Amphetamines Ql (U) Negative Invalid <500 ng/mL Not Interpreta Availab tion Code le (00206) Benzodiazepines Ql Positive Abnormal <100 ng/mL Not (U) Availab le (94436) Benzoylecgonine Ql Negative Invalid <150 ng/mL Not (U) Interpreta Availab tion Code le (02435) Buprenorphine Ql (U) Negative Invalid <5 ng/mL Not Interpreta Availab tion Code le (09772) Creatinine (U) 62.3 mg/dL Invalid > or = Not [Mass/Vol] Interpreta 20.0 mg/dL Availab tion Code le () Ethanol Ql (U) Negative Invalid <500 ng/mL Not Interpreta Availab tion Code le () Hydroxyethylflurazep Negative Invalid <50 ng/mL Not am (U) [Mass/Vol] Interpreta Availab tion Code le () LORazepam (U) 874 High <50 ng/mL Not [Mass/Vol] Availab le (65827) Methamphetamine (U) Negative Invalid <250 ng/mL Not [Mass/Vol] Interpreta Availab tion Code le (39253) Methylenedioxymetham Negative Invalid <500 ng/mL Not phetamine Ql (U) Interpreta Availab tion Code le (71102) Nordiazepam (U) Negative Invalid <50 ng/mL Not [Mass/Vol] Interpreta Availab tion Code le (50756) Nortramadol (U) 2215 High <100 ng/mL Not [Mass/Vol] Availab le (39737) Opiates Ql (U) Negative Invalid <100 ng/mL Not Interpreta Availab tion Code le (75914) Oxazepam (U) Negative Invalid <50 ng/mL Not [Mass/Vol] Interpreta Availab tion Code le (19783) Oxidants Ql (U) Negative Invalid <200 Not Interpreta mcg/mL Availab tion Code le () oxyCODONE Ql (U) Negative Invalid <100 ng/mL Not Interpreta Availab tion Code le (34796) pH (U) 7.11 [pH] Invalid 4.5 - 9.0 Not Interpreta Availab tion Code le () Temazepam (U) Negative Invalid <50 ng/mL Not [Mass/Vol] Interpreta Availab tion Code le () Tetrahydrocannabinol 23 High <5 ng/mL Not (U) [Mass/Vol] Availab le (01613) Tetrahydrocannabinol Positive Abnormal <20 ng/mL Not Ql (U) Availab le (00507) traMADol (U) 1759 High <100 ng/mL Not [Mass/Vol] Availab le (34659) laboratory on 2016-05-25 Albumin [Mass/Vol] 4.7 g/dL Invalid 3.5-5.5 Not 03-0 7-2 Interpreta g/dL Availab 017 tion Code le 09:37-0 (77589) 500 Albumin/Globulin 2.1 {ratio} Invalid 1.1-2.5 Not 03-0 7-2 [Mass ratio] Interpreta Availab 017 tion Code le 09:37-0 (30294) 500 ALP [Catalytic 95 U/L Invalid 39-117 Not activity/Vol] Interpreta IU/L Availab 017 tion Code le 09:37-0 (03002) 500 ALT [Catalytic 13 U/L Invalid 0-44 IU/L Not activity/Vol] Interpreta Availab 017 tion Code le 09:37-0 (74174) 500 AST [Catalytic 14 U/L Invalid 0-40 IU/L Not activity/Vol] Interpreta Availab 017 tion Code le 09:37-0 (61070) 500 Basophils (Bld) 0.0 10*3/uL Invalid 0.0-0.2 Not 05-252 [#/Vol] Interpreta x10E3/uL Availab 017 tion Code le 09:35-0 (50543) 500 Basophils/100 WBC 0 % Invalid % Not 05-25 (Bld) Interpreta Availab 017 tion Code le 09:35-0 (64012) 500 Bilirubin [Mass/Vol] 0.3 mg/dL Invalid 0.0-1.2 Not Interpreta mg/dL Availab 017 tion Code le 09:37-0 (37702) 500 Calcium [Mass/Vol] 9.6 mg/dL Invalid 8.7-10.2 Not 03-0 7-2 Interpreta mg/dL [facility] 017 tion Code le 09:37-0 (69322) 500 Chloride [Moles/Vol] 101 mmol/L Invalid 96-106 Not 0 Interpreta mmol/L [facility] 017 tion Code le 09:37-0 (36548) 500 Cholesterol 174 mg/dL Invalid 100-199 Not [Mass/Vol] Interpreta mg/dL [facility] 017 tion Code le 09:37-0 (34020) 500 Cholesterol in HDL 34 mg/dL Low >39 mg/dL Not 03-0 7-2 [Mass/Vol] [facility] 017 le 09:37-0 (88037) 500 Cholesterol in LDL 93 mg/dL Invalid 0-99 mg/dL Not 09-19 [Mass/Vol] Interpreta [facility] 017 tion Code le 09:37-0 (30164) 500 Cholesterol in VLDL 47 mg/dL High 5-40 mg/dL Not [Mass/Vol] [facility] 017 le 09:37-0 (13779) 500 CO2 [Moles/Vol] 25 mmol/L Invalid 18-29 Not Interpreta mmol/L [facility] 017 tion Code le 09:37-0 (57344) 500 Creatinine 0.97 mg/dL Invalid 0.76-1.27 Not [Mass/Vol] Interpreta mg/dL [facility] 017 tion Code le 09:37-0 (67019) 500 Eosinophils (Bld) 0.1 10*3/uL Invalid 0.0-0.4 Not 09-19 [#/Vol] Interpreta x10E3/uL [facility] 017 tion Code le 09:35-0 (45501) 500 Eosinophils/100 WBC 1 % Invalid % Not 09-19 (Bld) Interpreta [facility] 017 tion Code le 09:35-0 (69861) 500 Erythrocyte 13.6 % Invalid 12.3-15.4 Not distribution width Interpreta % [facility] 017 (RBC) [Ratio] tion Code le 09:35-0 (78133) 500 GFR/1.73 sq 114 mL/min/{1.73_m2} Invalid >59 Not M.predicted among Interpreta mL/min/1.7 [facility] 017 blacks MDRD tion Code 3 le 09:37-0 (S/P/Bld) [Vol (39283) 500 rate/Area] GFR/1.73 sq 99 mL/min/{1.73_m2} Invalid >59 Not 0 M.predicted among Interpreta mL/min/1.7 [facility] 017 non-blacks MDRD tion Code 3 le 09:37-0 (S/P/Bld) [Vol (86767) 500 rate/Area] Globulin (S) 2.2 g/dL Invalid 1.5-4.5 Not [Mass/Vol] Interpreta g/dL [facility] 017 tion Code le 09:37-0 (64690) 500 Glucose [Mass/Vol] 117 mg/dL High 65-99 Not 03-0 7-2 mg/dL [facility] 017 le 09:37-0 (07893) 500 Hematocrit (Bld) 46.7 % Invalid 37.5-51.0 Not [Volume fraction] Interpreta % [facility] 017 tion Code le 09:35-0 (51246) 500 Hemoglobin (Bld) 15.4 g/dL Invalid 12.6-17.7 Not [Mass/Vol] Interpreta g/dL [facility] 017 tion Code le 09:35-0 (60882) 500 Immature 0.0 10*3/uL Invalid 0.0-0.1 Not granulocytes (Bld) Interpreta x10E3/uL [facility] 017 [#/Vol] tion Code le 09:35-0 (68975) 500 Immature 0 % Invalid % Not granulocytes/100 WBC Interpreta [facility] 017 (Bld) tion Code le 09:35-0 (30831) 500 Lymphocytes (Bld) 3.5 10*3/uL High 0.7-3.1 Not 09-19 [#/Vol] x10E3/uL [facility] 017 le 09:35-0 (01815) 500 Lymphocytes/100 WBC 35 % Invalid % Not 09-19 (Bld) Interpreta [facility] 017 tion Code le 09:35-0 (99036) 500 MCH (RBC) [Entitic 30.2 pg Invalid 26.6-33.0 Not 030 7-2 mass] Interpreta pg [facility] 017 tion Code le 09:35-0 (34741) 500 MCHC (RBC) 33.0 g/dL Invalid 31.5-35.7 Not [Mass/Vol] Interpreta g/dL [facility] 017 tion Code le 09:35-0 (96865) 500 MCV (RBC) [Entitic 92 fL Invalid 79-97 fL Not 030 7-2 vol] Interpreta Availab 017 tion Code le 09:35-0 (92330) 500 Monocytes (Bld) 0.5 10*3/uL Invalid 0.1-0.9 Not 05-25 [#/Vol] Interpreta x10E3/uL Availab 017 tion Code le 09:35-0 (38745) 500 Monocytes/100 WBC 5 % Invalid % Not 05-25 (Bld) Interpreta Availab 017 tion Code le 09:35-0 (71759) 500 Neutrophils (Bld) 5.9 10*3/uL Invalid 1.4-7.0 Not 09-19 [#/Vol] Interpreta x10E3/uL Availab 017 tion Code le 09:35-0 (84640) 500 Neutrophils/100 WBC 59 % Invalid % Not 09-19 (Bld) Interpreta Availab 017 tion Code le 09:35-0 (53684) 500 Platelets (Bld) 242 10*3/uL Invalid 150-379 Not 05-25 [#/Vol] Interpreta x10E3/uL Availab 017 tion Code le 09:35-0 (46761) 500 Potassium 4.1 mmol/L Invalid 3.5-5.2 Not [Moles/Vol] Interpreta mmol/L Availab 017 tion Code le 09:37-0 (40126) 500 Protein [Mass/Vol] 6.9 g/dL Invalid 6.0-8.5 Not 03-0 7-2 Interpreta g/dL Availab 017 tion Code le 09:37-0 (49174) 500 RBC (Bld) [#/Vol] 5.10 10*6/uL Invalid 4.14-5.80 Not Interpreta x10E6/uL Availab 017 tion Code le 09:35-0 (17878) 500 Sodium [Moles/Vol] 140 mmol/L Invalid 134-144 Not 09-19 Interpreta mmol/L Availab 017 tion Code le 09:37-0 (74087) 500 Triglyceride 234 mg/dL High 0-149 Not [Mass/Vol] mg/dL Availab 017 le 09:37-0 (92648) 500 Urea nitrogen 10 mg/dL Invalid 6-20 mg/dL Not [Mass/Vol] Interpreta Availab 017 tion Code le 09:37-0 (08479) 500 Urea 10 mg/mg Invalid 8-19 Not nitrogen/Creatinine Interpreta Availab 017 [Mass ratio] tion Code le 09:37-0 (55767) 500 WBC (Bld) [#/Vol] 10.1 10*3/uL Invalid 3.4-10.8 Not Interpreta x10E3/uL Availab 017 tion Code le 09:35-0 (34553) 500 Social History No Information Vital Signs Date Time Vital Sign Value Performing Clinician Facil ity 10-25-2017 Body height 172.72 cm [facility] : Other Phone: [facility] [place] () 10-25-2017 Body mass index 28.54 kg/m2 [facility] : (BMI) [Ratio] Other Phone: [facility] [place] Zapproved) 10-25-2017 Body temperature 98.2 [degF] [facility] 16: Other Phone: [facility] [place] ([id number]) 10-25-2017 Body weight 85.14 kg [facility] :00-0400 Other Phone: [facility] [place] ([id number]) 10-04-2017 Body height 172.72 cm [facility] 16:00-0400 Other Phone: [facility] [place] ([id number]) 10-04-2017 Body mass index 26.48 kg/m2 JODY [facility] 16:00-0400 (BMI) [Ratio] Other Phone: [facility] [place] ([id number]) 10-04-2017 Body temperature 98.3 [degF] [facility] 16:00-0400 Other Phone: [facility] [place] ([id number]) 10-04-2017 Body weight 79.02 kg [facility] Other Phone: [facility] [place] ([id number]) 04-12-2014 Body height 172.72 cm [facility] 15:44-0500 Other Phone: [facility] [place] ([id number]) 04-12-2014 Body temperature 98.7 [degF] [facility] 15:44-0500 Other Phone: [facility] [place] ([id number]) 04-12-2014 Body weight 107.05 kg [facility] 15:44-0500 Other Phone: [facility] [place] ([id number]) 11-05-2013 Body height 172.72 cm [facility] 16:47-0400 Other Phone: [facility] [place] ([id number]) 11-05-2013 Body temperature 97 [degF] [facility] 16:47-0400 Other Phone: [facility] [place] ([id number]) 11-05-2013 Body weight 107.55 kg [facility] 16:47-0400 Other Phone: [facility] [place] ([id number]) 09-10-2013 Body height 172.72 cm [facility] 17:56-0400 Other Phone: [facility] [place] ([id number]) 09-10-2013 Body temperature 98.3 [degF] [facility] 17:56-0400 Other Phone: [facility] [place] ([id number]) 09-10-2013 Body weight 107.19 kg [facility] 17:56-0400 Other Phone: [facility] [place] ([id number]) 08-10-2013 Body height 172.72 cm [facility] 17:34-0400 Other Phone: [facility] [place] ([id number]) 08-10-2013 Body temperature 96.8 [degF] [facility] 17:34-0400 Other Phone: [facility] [place] ([id number]) 08-10-2013 Body weight 107.05 kg [facility] 17:34-0400 Other Phone: [facility] [place] ([id number]) 02-07-2013 Body height 172.72 cm [facility] 15:46-0500 Other Phone: [facility] [place] ([id number]) 02-07-2013 Body temperature 97.9 [degF] [facility] 15:46-0500 Other Phone: [facility] [place] ([id number]) 02-07-2013 Body weight 104.06 kg [facility] 15:46-0500 Other Phone: [facility] [place] ([id number]) 11-29-2012 Body height 172.72 cm [facility] 11:49-0400 Other Phone: [facility] [place] ([id number]) 11-29-2012 Body temperature 97.8 [degF] [facility] 11:49-0400 Other Phone: [facility] [place] ([id number]) 11-29-2012 Body weight 98.48 kg [facility] 11:49-0400 Other Phone: [facility] [place] ([id number]) 07-12-2012 Body height 172.72 cm [facility] 15:170400 [facility] ([id number]) 07-12-2012 Body temperature 98.6 [degF] [facility] 15:17-0400 [facility] ([id number]) 07-12-2012 Body weight 95.66 kg [facility] 15:17 [facility] ([id number]) Functional Status The data below is from unstructured sources Query Response Date Anam rded Comprehension Ability Understands Co ncepts September 29, 2017 4:45pm Mental Status No Information History general Narrative - Reported Note Date & Note Facility Type History [facility] ([id number]) Reported Summary Purpose eClinicalWorks SubmissioneClinicalWorks SubmissioneClinicalWorks SubmissioneClinicalWorks [...] Directives No 3:07pm Health Care Power of Mock Up Assembler No 08/09/17 3:07pm Organ Donor No 08/09/17 3:07pm Resuscitation Status Full Code 08/09/17 3:07pm Directive Response Recor ded Date/Time Advance Directives No 4:45pm Health Care Power of Mock Up Assembler No 09/29/17 4:45pm Organ Donor No 09/29/17 4:45pm Resuscitation Status Full Code 09/29/17 4:45pm Directive Response Recor ded Date/Time Advance Directives No 9:16am Health Care Power of Mock Up Assembler No 10/18/17 9:16am Organ Donor No 10/18/17 9:16am Resuscitation Status Full Code 10/18/17 9:16am Discharge Instructions No hospital discharge instructions.No hospital discharge instructions.No hospital discharge instruction information available.No hospital discharge instruction information available.No hospital discharge instruction information available.No hospital discharge instruction information available. Additional Source Comments This clinical document has been generated using [employer] software that has been certified by the Office of the National Coordinator for Health Information Technology (ONC 15.99.04.3023.Diam.[id number]) and the National Committee for [employer] (NCQA, as an eMeasure certified technology). FOR [...] BASED ON T HE PRIMARY CLINICAL RECORDS. [employer] provides no warranty or guara ntee of the accuracy or completeness of information in this document.The followi information is based on time limited clinical information UNRECOGNIZED CONTENT PROVIDED BELOW FOR UNRECOGNIZED SECTION REASON FOR VISIT Hospital f/u -Via Susan- Elevated BS 900. Is out of strips. He ran out [employer] JjournotRNPALS3 week follow up, was in [facility] for spider bite to back of head. Domo Fulton RNRefill [id number]
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
== END 2019-10-06 11:37 | disposition home or self-care (01) ==
LOC: ER 22:05 → 4TH 22:06 → UNDOADMOB 10-06 01:13 → 4TH 10-06 01:13 → UNDODISOB 10-06 13:00
PROVIDERS: ADMIT Surgery; ATTEND Surgery
DX: S02.2XXB Fracture of nasal bones, initial encounter for open fracture (principal); S32.010A Wedge compression fracture of first lumbar vertebra, initial encounter for closed fracture; V49.88XA Car occupant (driver) (passenger) injured in other specified transport accidents, initial encounter; I10 Essential (primary) hypertension; E78.00 Pure hypercholesterolemia, unspecified; E11.9 Type 2 diabetes mellitus without complications; F17.210 Nicotine dependence, cigarettes, uncomplicated; Z79.84 Long term (current) use of oral hypoglycemic drugs; M54.9 Dorsalgia, unspecified; Z91.19 Patient's noncompliance with other medical treatment and regimen; F41.9 Anxiety disorder, unspecified; M79.632 Pain in left forearm; M79.631 Pain in right forearm; M25.532 Pain in left wrist; M25.531 Pain in right wrist; Z23 Encounter for immunization
CPT/HCPCS: 70450; 70486; 71045; 71260; 72125; 73090; 73110; 74177; 80048; 80053; 80076; 80306; 81000; 82962; 85007; 85027 ×2; 86850; 86900; 86901; 90471; 93041; 96361; 96374; 96375; 96376; 99283; G0378; G0480; 36415; 80320; 90715